=== PATIENT | female | born 1970 | race Caucasian/White ===

== ENCOUNTER 2022-11-12 14:06 | Outpatient (OUT) | payer BC, SELFPAY ==
--- NOTE | 2022-11-12 14:36 | PM.CN ---
Consult Note: HPI Data of Consult Patient: known to practice within the last 3 years Consult date: 11/12/22 Requesting Physician: RODRIGUEZ MCKEON NP Primary Care Provider: SHERIN ROTH Consult Narrative Narrative: Patient is here for f/u of first LCIH right sided nerve block. She had 80% relief of pain with increased fx for several hours after procedure . She would like to proceed with RFA. No new sensorimotor or bowel or bladder issues. No adverse medication SE. Medication regimen assists patient in ability to complete ADLs. No radiculopathy cc:: CC: RODRIGUEZ MCKEON NP Review of Systems ROS Status of ROS 10 or more systems reviewed and unremarkable except as noted in history and below Musculoskeletal Reports: back pain Exam Constitutional Documenting provider has reviewed patient's vital signs: yes Common normals: no apparent distress, average body habitus, oriented x3, no limitations, healthy appearing, alert and well nourished General appearance: cooperative, comfortable and well developed Orientation/consciousness: Yes awake, Yes oriented to person, Yes oriented to place and Yes oriented to time HENMI Common normals: normocephalic, nasal mucous membranes and turbinates normal and moist oral mucous membranes Respiratory Common normals: normal respiratory effort, no retractions and no use of accessory muscles Effort & inspection: able to speak in complete sentences and symmetric chest movement Back & Pelvis Lumbar spine/lower back: normal to inspection, ROM limited, pain with ROM, paraspinal muscle tenderness, paraspinal muscle spasm and straight leg raise negative bilaterally Extremity Common normals: normal to inspection, full ROM, normal capillary refill and no pedal edema Other: muscle strength 4/5 bilat with intact sensation. Positive beto gaenslens and thigh thrust right Assessment and Plan Assessment and Plan (1) Muscle spasm: (2) Sacroiliac joint pain: Plan RFA thermal right LCIH with sedation
== END 2022-11-12 14:07 ==
PROVIDERS: PCP Family Medicine; Visit Provider Nurse Practitioner
DX: M62.838 Other muscle spasm (principal); M53.3 Sacrococcygeal disorders, not elsewhere classified
CPT/HCPCS: G0463

== ENCOUNTER 2023-01-12 08:01 | Day surgery (SDC) | payer BC, SELFPAY ==
[2023-01-12 08:22] VITALS: BP 149/86; PULSE 93; RESP 18; TEMP 36.4; O2SAT 98
[2023-01-12] MEDS: 0.9 % SODIUM CHLORIDE 500 ML IV (08:41)
[2023-01-12] MEDS: LIDOCAINE HCL 2% 400 MG/20 ML MDV 8 ML INJ (09:42)
[2023-01-12] MEDS: BUPIVACAINE HCL 0.25% PF 25 MG/10 ML VIAL 4 ML INJ (09:42)
[2023-01-12] MEDS: METHYLPREDNISOLONE ACETATE 40 MG/ML VIAL INJ (09:43)
[2023-01-12 09:46] VITALS: BP 147/91; PULSE 79; RESP 17; TEMP 36.8; O2SAT 98
[2023-01-12 09:48] VITALS: BP 121/81; PULSE 80; RESP 16; TEMP 36.8; O2SAT 98
--- NOTE | 2023-01-19 08:35 | P.ON_ITS ---
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 Post lesioning injection of 2 mL each of 0.25% Marcaine and 2% lidocaine with Depo-Medrol 40mg. 0.5 to 1 mL injected at each site IV in place yes/no If Intravenous fluids: NS at KVO Anesthesia local 2% lidocaine for Anesthesia Other: MAC Timeout process compliant After informed consent obtained. Patient brought to the procedure room placed in the prone position skin overlying the area was prepped and draped in a sterile fashion using betadine. 25 gauge needle was used to create a skin wheal over each of the targeted areas utilizing 2% lidocaine. A rhizotomy needle with a 10 mm active tip was inserted over each of the anesthetized areas and directed towards four different areas in the distribution of the lateral cutaneous branc hes of the iliohypogastric nerve, accomplished under fluoroscopic guidance. After encountering the same we had positive sensory stimulation, negative motor stimulation was noted. lesions were then created. Post lesioning, steroid solution was injected needles removed. Patient was transferred to recovery room in stable condition to be discharged home after meeting criteria. Anesthesia: MAC Surgeon: Ashwin Peguero Condition: stable
== END 2023-01-12 10:12 | disposition home or self-care (01) ==
LOC: SURGOUT 08:01
PROVIDERS: PCP Family Medicine; Visit Provider Anesthesiology Pain Medicine
DX: G57.81 Other specified mononeuropathies of right lower limb (principal)
CPT/HCPCS: 64640; 77002; J1030

== ENCOUNTER 2023-02-04 14:59 | Outpatient (OUT) | payer BC, SELFPAY ==
--- NOTE | 2023-02-04 14:53 | PM.CN ---
Consult Note: HPI Data of Consult Patient: known to practice within the last 3 years Requesting Physician: Day Fleming NP Primary Care Provider: SHERIN ROTH Consult Narrative Reason for consult: f/u Narrative: Kim Hill a pleasant 52 year old female presents to office for evaluation of chronic low back and right SIJ pain. Recently underwent right Lateral cutaneous iliohypogastric nerve Radiofrequency ablation, since this procedure patient reports >85% pain relief and functional improvement. Today rating pain 6/10 in low back and left hip. Patient pleased with current medication regimen, no side effects. cc:: CC: Day Fleming NP Review of Systems ROS Status of ROS 10 or more systems reviewed and unremarkable except as noted in history and below Musculoskeletal Reports: back pain and joint pain PFSH PFSH Medical History Surgical History Meds Home Medications and Allergies Home Medications Medication Instructions Recorded Confirmed Type PRO AIR 11/12/22 History VITAMIN C DAILY 11/12/22 History baclofen 10 mg tablet 10 mg PO TID 11/12/22 01/12/23 History cholecalciferol (vit D3) 1,000 1 tab PO DAILY 11/12/22 01/12/23 History unit-vitamin K2 (MK4) 100 mcg tablet (K2 Plus D3) gabapentin 600 mg tablet 600 mg PO TID 11/12/22 01/12/23 History hydrocodone 5 mg-acetaminophen 325 1 tab PO TID 11/12/22 01/12/23 History mg tablet krill 1,000 mg-omega-3 170 mg-dha 1 cap PO DAILY 11/12/22 01/12/23 History 50 mg-epa 80 oq-eexeui-bezdm capsule (krill oil) lisinopril 10 mg tablet 10 mg PO DAILY 11/12/22 01/12/23 History meloxicam 15 mg tablet 15 mg PO DAILY 11/12/22 01/12/23 History omega 5-odb-xgd-fish oil 1,200 mg cap PO 11/12/22 History (144 mg-216 mg) capsule (Fish Oil) omeprazole 20 mg capsule,delayed 20 mg PO DAILY 11/12/22 01/12/23 History release umeclidinium 62.5 mcg-vilanterol 1 inh inhalation DAILY 11/12/22 01/12/23 History 25 mcg/actuation powdr for inhalation (Anoro Ellipta) Allergies Allergy/AdvReac Type Severity Reaction Status Date / Time amoxicillin [From Augmentin] Allergy Unknown Verified 01/12/23 08:26 clavulanic acid Allergy Unknown Verified 01/12/23 08:26 [From Augmentin] Penicillins Allergy Unknown Verified 01/12/23 08:26 Exam Constitutional Documenting provider has reviewed patient's vital signs: yes Common normals: no apparent distress, oriented x3, healthy appearing, alert and well nourished General appearance: cooperative HENMT Common normals: normocephalic, hearing grossly normal bilaterally and moist oral mucous membranes Head and scalp: normocephalic Eye Common normals: PERRL Pupil: PERRL Neck & C-Spine Common normals: full ROM General: normal visual inspection Chest Common normals: inspection of chest normal Respiratory Common normals: normal respiratory effort, no retractions and no use of accessory muscles Back & Pelvis Lumbar spine/lower back: ROM limited and pain with ROM Sacroiliac joints: SI joint(s) abnormal (left SIJ tender over PSIS, positive thigh thrust, FABERs, distraction ) SI joint details: pain elicited by compression of iliac crest maneuver Other: no radiculopathy Extremity Common normals: normal to inspection and full ROM Neuro Common normals: oriented x3, CN's II-XII intact bilaterally, moves all extremities, no focal motor deficits, no sensory deficits noted and deep tendon reflexes 2+ bilaterally Sensorium/orientation: alert Motor exam: strength 5/5 throughout and no movement abnormalities noted Psych Common normals: mental status grossly normal, thought process normal, cooperative, affect normal, speech normal and activity/motor behavior normal Speech: normal speech Thought process: normal thought process Results Additional Findings Additional findings: I have checked an [place]AR[place] report on this patient today and there are no aberrancies noted in the prescribing history.?? A drug screen was completed and reviewed within the last year, and if there has not been a drug screen completed we ordered one today to monitor higher risk, state monitored pain medication use. As part of providing excellent, safe, comprehensive care, the following was completed at our patient's visit: 1. A medication reconciliation and review to ensure accurate knowledge of current/active medications, including asking our patients to inform us about any sabw-uae-bqejsui medications or herbal remedies/nutritional supplements/alternative remedies. 2. A review to specifically ensure our patients have had annual screening for: elevated body mass index (BMI), tobacco use, screening for depression, and screening for unhealthy alcohol use. When screening is concerning, patients are provided with education and the specific recommendation to discuss the concerning health issue and treatment options with their primary care provider. Assessment and Plan Assessment and Plan (1) Neuritis: Assessment and Plan: right LCIH RFA >85 ongoing pain relief and functional improvement left LCIH neuritis as noted above (2) Sacroiliac joint pain: (3) Muscle spasm: (4) Lumbar spondylosis: (5) Chronic prescription opiate use: (6) Obesity: Assessment and Plan: The patient was counseled that proper dietary changes and consistent participation in a home exercise plan can lead to weight loss. Weight loss can help to improve functionality in patients with chronic pain.? Plan continue f/u with neurosurgeon continue HEP continue current medication regimen narcan previously prescribed and discussed f/u 3 months, consider left LCIH nerve block and RFA in the future
== END 2023-02-04 15:00 | disposition home or self-care (01) ==
LOC: PM 14:59
PROVIDERS: PCP Family Medicine; Visit Provider Nurse Practitioner
DX: M47.26 Other spondylosis with radiculopathy, lumbar region (principal); M62.838 Other muscle spasm; M53.3 Sacrococcygeal disorders, not elsewhere classified; E66.9 Obesity, unspecified
CPT/HCPCS: G0463

== ENCOUNTER 2023-03-16 09:18 | Day surgery (SDC) | payer BC, SELFPAY ==
[2023-03-16 10:02] VITALS: BP 140/82; PULSE 95; RESP 16; TEMP 36.7; O2SAT 97
[2023-03-16] MEDS: BUPIVACAINE HCL 0.25% PF 25 MG/10 ML VIAL 4 ML INJ (11:09)
[2023-03-16 11:10] VITALS: BP 126/58; BP 172/80; PULSE 92; RESP 16; O2SAT 97
--- NOTE | 2023-03-16 11:50 | W.PM.PROCNOT ---
Date of procedure: 03/16/23 Pre-op diagnosis: Left lateral cutaneous iliohypogastric neuritis Post-op diagnosis: same as pre-op Procedure: Left Lateral cutaneous branch Iliohypogastric nerve injection, diagnostic Performed under fluoroscopic guidance Immediate complications none Anesthesia: none Solution used for injection: In each syringe, 2 milliliters 0.25% Marcaine 2.5 mL is used for injection for each side Time out process compliant After informed consent obtained patient was brought to the procedure room placed in the prone position skin overlying the area was prepped and draped in a sterile fashion using betadine. 25 gauge spinal needle Insert over each of the target areas identified in fluoroscopy corresponding needles were advanced Under fluoroscopic guidance until the target/targets encountered , no indication of intravascular or Intraneuronal needle tip placement. Solution injected .needles removed post procedurally. patient transferred to recovery room in stable condition to be discharged home after meeting criteria Anesthesia: Local Surgeon: Ashwin Peguero Condition: stable
== END 2023-03-16 11:11 | disposition home or self-care (01) ==
LOC: SURGOUT 09:18
PROVIDERS: PCP Family Medicine; Visit Provider Anesthesiology Pain Medicine
DX: G57.82 Other specified mononeuropathies of left lower limb (principal)
CPT/HCPCS: 64425; 77002

== ENCOUNTER 2023-03-24 10:06 | Outpatient (OUT) | payer BC, SELFPAY ==
--- NOTE | 2023-03-24 10:37 | P.CN_ITS ---
Consult Note: HPI Data of Consult Patient: known to practice within the last 3 years Requesting Physician: Day Fleming NP Primary Care Provider: SHERIN ROTH Consult Narrative Reason for consult: f/u Narrative: Kim Hill a pleasant 52 year old female presents to office for evaluation of chronic low back and left buttock pain. Today rating pain 3/10. Patient pleased with current medication regimen, no side effects. Right LCIH RFA providing 85% pain relief ongoing. Patient would like to discuss proceeding with left LCIH RFA as she has benefitted from Left LCIH NB with 95% pain relief immediately after and for days after the procedure. cc:: CC: Day Fleming NP Review of Systems ROS Status of ROS 10 or more systems reviewed and unremarkable except as noted in history and below [facility] Medical History Surgical History Meds Home Medications and Allergies Home Medications Medication Instructions Recorded Confirmed Type PRO AIR 11/12/22 History VITAMIN C DAILY 11/12/22 History baclofen 10 mg tablet 10 mg PO TID 11/12/22 03/16/23 History cholecalciferol (vit D3) 1,000 1 tab PO DAILY 11/12/22 03/16/23 History unit-vitamin K2 (MK4) 100 mcg tablet (K2 Plus D3) gabapentin 600 mg tablet 600 mg PO TID 11/12/22 03/16/23 History hydrocodone 5 mg-acetaminophen 325 1 tab PO TID 11/12/22 03/16/23 History mg tablet krill 1,000 mg-omega-3 170 mg-dha 1 cap PO DAILY 11/12/22 03/16/23 History 50 mg-epa 80 cg-meegdy-vtvmc capsule (krill oil) lisinopril 10 mg tablet 10 mg PO DAILY 11/12/22 03/16/23 History meloxicam 15 mg tablet 15 mg PO DAILY 11/12/22 03/16/23 History omega 6-chf-sud-fish oil 1,200 mg cap PO 11/12/22 History (144 mg-216 mg) capsule (Fish Oil) omeprazole 20 mg capsule,delayed 20 mg PO DAILY 11/12/22 03/16/23 History release umeclidinium 62.5 mcg-vilanterol 1 inh inhalation DAILY 11/12/22 03/16/23 History 25 mcg/actuation powdr for inhalation (Anoro Ellipta) hydrocodone 7.5 mg-acetaminophen 1 tab PO TID PRN pain #80 tabs 03/01/23 03/16/23 Rx 325 mg tablet Allergies Allergy/AdvReac Type Severity Reaction Status Date / Time amoxicillin [From Augmentin] Allergy Unknown Verified 01/12/23 08:26 clavulanic acid Allergy Unknown Verified 01/12/23 08:26 [From Augmentin] Penicillins Allergy Unknown Verified 01/12/23 08:26 Exam Constitutional Documenting provider has reviewed patient's vital signs: yes Common normals: no apparent distress, oriented x3, healthy appearing, alert and well nourished General appearance: cooperative HENMT Common normals: normocephalic, hearing grossly normal bilaterally and moist oral mucous membranes Head and scalp: normocephalic Eye Common normals: PERRL Pupil: PERRL Neck & C-Spine Common normals: full ROM General: normal visual inspection Chest Common normals: inspection of chest normal Respiratory Common normals: normal respiratory effort, no retractions and no use of accessory muscles Back & Pelvis Lumbar spine/lower back: ROM limited and pain with ROM Sacroiliac joints: SI joint(s) abnormal (left SIJ tender over PSIS, positive thigh thrust, FABERs, distraction ) SI joint details: pain elicited by compress ion of iliac crest maneuver Other: no radiculopathy pain over left LCIH nerve Extremity Common normals: normal to inspection and full ROM Neuro Common normals: oriented x3, CN's II-XII intact bilaterally, moves all extremities, no focal motor deficits, no sensory deficits noted and deep tendon reflexes 2+ bilaterally Sensorium/orientation: alert Motor exam: strength 5/5 throughout and no movement abnormalities noted Psych Common normals: mental status grossly normal, thought process normal, cooperative, affect normal, speech normal and activity/motor behavior normal Speech: normal speech Thought process: normal thought process Results Additional Findings Additional findings: I have checked an [place]AR[place] report on this patient today and there are no aberrancies noted in the prescribing history.?? A drug screen was completed and reviewed within the last year, and if there has not been a drug screen completed we ordered one today to monitor higher risk, state monitored pain medication use. As part of providing excellent, safe, comprehensive care, the following was completed at our patient's visit: 1. A medication reconciliation and review to ensure accurate knowledge of current/active medications, including asking our patients to inform us about any nqfp-atr-drlfjdd medications or herbal remedies/nutritional supplements/alternative remedies. 2. A review to specifically ensure our patients have had annual screening for: elevated body mass index (BMI), tobacco use, screening for depression, and screening for unhealthy alcohol use. When screening is concerning, patients are provided with education and the specific recommendation to discuss the concerning health issue and treatment options with their primary care provider. Assessment and Plan Assessment and Plan (1) Neuritis: Assessment and Plan: right LCIH RFA >85 ongoing pain relief and functional improvement left LCIH neuritis as noted above We discussed the risks and benefits of the procedure with the patient The procedure will be completed with fluoroscopic guidance.? (2) Sacroiliac joint pain: (3) Muscle spasm: (4) Lumbar spondylosis: (5) Chronic prescription opiate use: (6) Obesity: Assessment and Plan: The patient was counseled that proper dietary changes and consistent participation in a home exercise plan can lead to weight loss. Weight loss can help to improve functionality in patients with chronic pain.? Plan proceed with left LCIH RFA with IV sedation cervical xray for neck pain with radiculopathy PT for neck pain with radiculopathy continue HEP continue current medication regimen narcan previously prescribed and discussed f/u 1 month after RFA
== END 2023-03-24 10:07 ==
LOC: PM 10:07
PROVIDERS: PCP Family Medicine; Visit Provider Nurse Practitioner
DX: M79.2 Neuralgia and neuritis, unspecified (principal); M62.838 Other muscle spasm; M47.816 Spondylosis without myelopathy or radiculopathy, lumbar region; E66.9 Obesity, unspecified; M53.3 Sacrococcygeal disorders, not elsewhere classified; Z79.891 Long term (current) use of opiate analgesic
CPT/HCPCS: G0463

== ENCOUNTER 2023-04-20 07:15 | Day surgery (SDC) | payer BC, SELFPAY ==
[2023-04-20 07:49] VITALS: BP 147/86; PULSE 88; RESP 16; TEMP 37.7; O2SAT 97
[2023-04-20] MEDS: 0.9 % SODIUM CHLORIDE 500 ML 50 ML IV (07:59)
[2023-04-20] MEDS: LIDOCAINE HCL 2% 400 MG/20 ML MDV 10 ML INJ (08:49)
[2023-04-20] MEDS: BUPIVACAINE HCL 0.25% PF 25 MG/10 ML VIAL 4 ML INJ (08:49)
[2023-04-20] MEDS: METHYLPREDNISOLONE ACETATE 40 MG/ML VIAL INJ (08:49)
[2023-04-20 09:05] VITALS: BP 128/88; PULSE 85; RESP 14; TEMP 37; O2SAT 94
[2023-04-20 09:10] VITALS: BP 118/81; PULSE 82; RESP 18; TEMP 37; O2SAT 96
--- NOTE | 2023-04-20 09:37 | W.PM.PROCNOT ---
Date of procedure: 04/20/23 Pre-op diagnosis: Left lateral cutaneous iliohypogastric neuritis Post-op diagnosis: same as pre-op Procedure: Left Lateral cutaneous iliohypogastric nerve Radiofrequency ablation PreOp diagnosis: pain secondary to include lateral cutaneous iliohypogastric neuritis Postop diagnosis same Under fluoroscopic guidance Rhizotomy was created using radio frequency ablation at 80?C for 90 seconds 1 to 2 lesions created at each site. Post lesioning injection of 2 mL each of 0.25% Marcaine and 2% lidocaine with Depo-Medrol 40mg. 0.5 to 1 mL injected at each site IV in place yes If Intravenous fluids: NS at KVO Anesthesia local 2% lidocaine for Anesthesia Other: MAC Timeout process compliant After informed consent obtained. Patient brought to the procedure room placed in the prone position skin overlying the area was prepped and draped in a sterile fashion using betadine. 25 gauge needle was used to create a skin wheal over each of the targeted areas utilizing 2% lidocaine. A rhizotomy needle with a 10 mm active tip was inserted over each of the anesthetized areas and directed towards four different areas in the distribution of the lateral cutaneous branches of the iliohypogastric nerve, accomplished under fluoroscopic guidance. After encountering the same we had positive sensory stimulation, negative motor stimulation was noted. lesions were then created. Post lesioning, steroid solution was injected needles removed. Patient was transferred to recovery room in stable condition to be discharged home after meeting criteria. Anesthesia: MAC Surgeon: Ashwin Peguero Condition: stable
== END 2023-04-20 09:33 | disposition home or self-care (01) ==
PROVIDERS: PCP Family Medicine; Visit Provider Anesthesiology Pain Medicine
DX: G57.82 Other specified mononeuropathies of left lower limb (principal)
CPT/HCPCS: 64640; 77002; J1030; J2704

== ENCOUNTER 2023-05-20 09:53 | Outpatient (OUT) | payer BC, SELFPAY ==
--- NOTE | 2023-05-20 10:07 | P.CN_ITS ---
Consult Note: HPI Data of Consult Patient: known to practice within the last 3 years Requesting Physician: Day Fleming NP Primary Care Provider: SHERIN ROTH Consult Narrative Reason for consult: f/u Narrative: Kim Hill a pleasant 52 year old female presents to office for evaluation of chronic low back and left buttock pain. Today rating pain 3/10. Patient pleased with current medication regimen, no side effects. Patient underwent left LCIH RFA with 95% ongoing relief. Patient has not been able to complete xrays of cervical spine or PT due to work schedule. She is finding benefit to current medication regimen, did not start baclofen yet. cc:: CC: Day Fleming NP Review of Systems ROS Status of ROS 10 or more systems reviewed and unremark able except as noted in history and below Musculoskeletal Reports: back pain, neck pain and joint pain PFSH PFSH Medical History Surgical History History of lymph node excision ?Z98.890 - Other specified postprocedural states (ICD-10) History of hysterectomy ?Z90.710 - Acquired absence of both cervix and uterus (ICD-10) History of lumbar fusion ?Z98.1 - Arthrodesis status (ICD-10) Meds Home Medications and Allergies Home Medications Medication Instructions Recorded Confirmed Type PRO AIR 11/12/22 History VITAMIN C DAILY 11/12/22 History baclofen 10 mg tablet 10 mg PO TID 11/12/22 04/20/23 History cholecalciferol (vit D3) 1,000 1 tab PO DAILY 11/12/22 04/20/23 History unit-vitamin K2 (MK4) 100 mcg tablet (K2 Plus D3) gabapentin 600 mg tablet 600 mg PO TID 11/12/22 04/20/23 History hydrocodone 5 mg-acetaminophen 325 1 tab PO TID 11/12/22 04/20/23 History mg tablet krill 1,000 mg-omega-3 170 mg-dha 1 cap PO DAILY 11/12/22 04/20/23 History 50 mg-epa 80 [id number] capsule (krill oil) lisinopril 10 mg tablet 10 mg PO DAILY 11/12/22 04/20/23 History meloxicam 15 mg tablet 15 mg PO DAILY 11/12/22 04/20/23 History omega 5-gqo-dns-fish oil 1,200 mg cap PO 11/12/22 History (144 mg-216 mg) capsule (Fish Oil) omeprazole 20 mg capsule,delayed 20 mg PO DAILY 11/12/22 04/20/23 History release umeclidinium 62.5 mcg-vilanterol 1 inh inhalation DAILY 11/12/22 04/20/23 History 25 mcg/actuation powdr for inhalation (Anoro Ellipta) hydrocodone 7.5 mg-acetaminophen 1 tab PO TID PRN pain #80 tabs 03/01/23 03/16/23 Rx 325 mg tablet hydrocodone 7.5 mg-acetaminophen 1 tab PO TID PRN pain #90 tabs 03/30/23 Rx 325 mg tablet hydrocodone 7.5 mg-acetaminophen 1 tab PO TID PRN pain #80 tabs 04/02/23 Rx 325 mg tablet hydrocodone 7.5 mg-acetaminophen 1 tab PO TID PRN pain #80 tabs 04/13/23 Rx 325 mg tablet Allergies Allergy/AdvReac Type Severity Reaction Status Date / Time amoxicillin [From Augmentin] Allergy Unknown Verified 01/12/23 08:26 clavulanic acid Allergy Unknown Verified 01/12/23 08:26 [From Augmentin] Penicillins Allergy Unknown Verified 01/12/23 08:26 Exam Constitutional Documenting provider has reviewed patient's vital signs: yes Common normals: no apparent distress, oriented x3, healthy appearing, alert and well nourished General appearance: cooperative [facility] Common normals: normocephalic, hearing grossly normal bilaterally and moist oral mucous membranes Head and scalp: normocephalic Eye Common normals: PERRL Pupil: PERRL Neck & C-Spine Common normals: full ROM General: normal visual inspection Cervical spine: pain with cervical ROM and paracervical muscle tenderness Other: intermittent radiculopathy to bilateral hands right greater than left Chest Common normals: inspection of chest normal Respiratory Common normals: normal respiratory effort, no retractions and no use of accessory muscles Back & Pelvis Lumbar spine/lower back: ROM limited and pain with ROM Sacroiliac joints: SI joints normal Other: no radiculopathy Extremity Common normals: normal to inspection and full ROM Neuro Common normals: oriented x3, CN's II-XII intact bilaterally, moves all extremities, no focal motor deficits, no sensory deficits noted and deep tendon reflexes 2+ bilaterally Sensorium/orientation: alert Motor exam: strength 5/5 throughout and no movement abnormalities noted Psych Common normals: mental status grossly normal, thought process normal, cooperative, affect normal, speech normal and activity/motor behavior normal Speech: normal speech Thought process: normal thought process Assessment and Plan Assessment and Plan (1) Cervical radiculopathy: (2) Cervical spondylosis: (3) Neuritis: (4) Chronic prescription opiate use: Assessment and Plan: I feel these medications are improving the patient's quality of life and allow them to tolerate activities of daily living as well as participate in recreational activity.? The patient does not report intolerable side effects. The patient is NOT opioid naive and non-pharmacologic and non-opioid treatment has failed to significantly relieve the patient's pain and improve functionality. The patient has a diagnosis that is related to a somatic or visceral pain etiology. ? ?? I reviewed with the patient the potential risks and side effects with the use of? opioid medications including but not limited to respiratory depression,? sedation, and even . I verified the patient has access to naloxone should? these effects occur. I advised the patient to avoid the use of any other? sedation substances including alcohol, THC, and benzodiazepines while? taking opioid medications due to the risk of compounding side effects and? detrimental outcomes. I reviewed the [employer], pain treatment agreement, urine? drug screen, and opioid start talking forms. The patient was advised to let? their family know they had Naloxone in case they would need to administer? the medication.? ?? A drug screen was completed within the last year, and no aberrancies were noted regarding their use of controlled substances. The patient understands they are subject to the terms and conditions of the pain contract that they have signed. ? ?? I have checked an [place] report on this patient today and there are no aberrancies noted in the prescribing history.? (5) Lumbar spondylosis: (6) Muscle spasm: Plan continue HEP continue current medication regimen, tolerating well without side effects. advised not to take muscle relaxants with opioids take mobic with food, do not take with other NSAIDs narcan previously prescribed and discussed f/u 3 months, sooner if she completes pt and xrays of cervical spine
--- OUTSIDE RECORDS SUMMARY | 2023-05-20 10:38 | XMS_ITS | CCD ---
Author Name Unknown Address [facility] [address] [place] [address] Organization [facility] Care Team Providers Care [employer] Manager Name Role Phone Roberto Roth Primary Care Provider [phone] Justice Cruz Attending Provider DO Roberto Roth Primary Care Provider [phone] MD Hood Rausch Attending Provider DO Roberto Roth Primary Care Provider [phone] CALVIN Yu Attending Provider [phone] MD Paresh Tian Attending Provider [phone] DO Roberto Roth Primary Care Provider [phone] CALVIN Yu Attending Provider [phone] MD Paresh Tian Attending Provider MD Gina Guerrero Attending Provider Gina Guerrero Unavailable SHE ., DR HOOD Hernandez Attending Unavailable SHE ., DR HOOD Hernandez Admitting Unavailable SINGH ., ADA Consulting Unavailable DR ROBERTO ROTH Primary Care Unavailable SHE ., DR HOOD Hernandez Attending Unavailable SHE ., DR HOOD Hernandez Admitting Unavailable SHE ., DR HOOD Hernandez Consulting Unavailable IRA, DR ROBERTO Bhakta Primary Care Unavailable SHE ., DR HOOD Hernandez Attending Unavailable SHE ., DR HOOD Hernandez Admitting Unavailable SINGH ., ADA Consulting Unavailable IRA, DR ROBERTO Bhakta Primary Care Unavailable SHE ., DR HOOD Hernandez Attending Unavailable SHE ., DR HOOD Hernandez Admitting Unavailable SINGH ., ADA Consulting Unavailable IRA, DR ROBERTO Bhakta Primary Care Unavailable LAKSHMIPATHY ., NARENDOMAR Attending Manjula vailable IRA, DR ROBERTO Bhakta Primary Care Unavailable LAKSHMIPATHY ., NARENDOMAR Admitting Manjula vailable RAUSCH ., DR HOOD Hernandez Attending Unavailable RAUSCH ., DR HOOD Hernandez Admitting Unavailable ROTH, DR ROBERTO Bhakta Primary Care Unavailable RAUSCH ., DR HOOD Hernandez Consulting Unavailable JUNGERMANNNATALEE Consulting Unavailable RAUSCH ., DR HOOD Hernandez Attending Unavailable RAUSCH ., DR HOOD Hernandez Admitting Unavailable ROTH, DR ROBERTO Bhakta Primary Care Unavailable SINGH ., ADA Consulting Unavailable RAUSCH ., DR HOOD Hernandez Consulting Unavailable RAUSCH ., DR HOOD Hernandez Attending Unavailable RAUSCH ., DR HOOD Hernandez Admitting Unavailable IRA, DR ROBERTO Bhakta Primary Care Unavailable JOELLE BRAXTON Consulting Unava ilable SINGH ., ADA Attending Unavailable SINGH ., ADA Admitting Unavailable IRA, DR ROBERTO Bhakta Primary Care Unavailable WEST, DR DASHA Gomez Consulting Unavailable SINGH ., ADA Consulting Unavailable RAUSCH ., DR HOOD Hernandez Attending Unavailable RAUSCH ., DR HOOD Hernandez Admitting Unavailable RAUSCH ., DR HOOD Hernandez Consulting Unavailable IRA, DR ROBERTO Bhakta Primary Care Unavailable RAUSCH ., DR HOOD Hernandez Attending Unavailable RAUSCH ., DR HOOD Hernandez Admitting Unavailable ROTH, DR ROBERTO Bhakta Primary Care Unavailable RAUSCH ., DR HOOD Hernandez Attending Unavailable RAUSCH ., DR HOOD Hernandez Admitting Unavailable SINGH ., ADA Consulting Unavailable IRA, DR ROBERTO Bhakta Primary Care Unavailable LAKSHMIPATHY ., NARENDRANATH Consulting Manjula vailable LAKSHMIPATHY ., NARENDOMAR Attending Manjula vailable DR ROBERTO ROTH Primary Care Unavailable LAKSHMIPATHY ., NARENDRANATH Admitting Manjula vailable LAKSHMIPATHY ., NARENDRANATH Admitting Manjula vailable LAKSHMIPATHY ., NARENDRANATH Consulting Manjula vailable LAKSHMIPATHY ., NARENDTONYATH Attending Manjula vailable IRA, DR ROBERTO Bhakta Primary Care Unavailable LAKSHMIPATHY ., NARENDRANATH Admitting Manjula vailable LAKSHMIPATHY ., NARENDTONYATH Consulting Manjula vailable LAKSHMIPATHY ., NARENDTONYATH Attending Manjula vailable IRA, DR ROBERTO Bhakta Primary Care Unavailable Aby Yu Attending Unavailable Roberto Roth Primary Care Unavailable Eislakshmi, Aby Admitting Unavailable Paresh Tian Admitting Unavailable Paresh Tian Attending Unavailable Roberto Roth Primary Care Unavailable Gina Guerrero Admitting Unavailable Gina Guerrero Attending Unavailable Roberto Roth Primary Care Unavailable Unavailable Unavailable Unavailable Allergies Allergy Classification Reported Allergen(s) Allergy Type Date of Onset Reaction(s) Facility (6 sources) Amoxicillin; Translations: [amoxicillin] Drug Allergy 0 [facility] (7 sources) Penicillins; Translations: [Penicillins] Propensity to adverse reactions 4 [facility] (6 sources) clavulanic acid; Translations: [clavulanic acid] Propensity to adverse reactions 0 [facility] (3 sources) Amoxicillin / Clavulanate; Translations: [Augmentin] Drug Allergy [address] [facility] (2 sources) Azithromycin Drug Allergy diarrhea [facility] [employer] Other (2 sources) Penicillin G Drug Allergy Unknown [facility] [employer] Other Medications Current Medications Medication Drug Class(es) Dates Sig (Normalized) Sig (Original) acetaminophen 500 mg oral tablet (4 sources) Start: 05-31-2020 take 500 mg by mouth every four hours Acetaminophen Active 500 MG PO Q4H 100 May 31, 2020 1:00am [id number] 200 actuat albuterol 0.09 mg/actuat metered dose inhaler (15 sources) beta2-Adrenergic Agonist Start: 06-26-2021 take 1 puff(s) by inhalation every three hours Albuterol Sulfate (Ventolin Hfa) 90 mcg/actuation Hfa Aerosol Inhaler Active 2 PUFF INHALATION Q3H 0 June 26, 2021 1:00am Start: 03-18-2019 take 1 puff(s) by in halation every six hours Albuterol Sulfate (Proair Hfa) 90 mcg/actuation Hfa Aerosol Inhaler Active 1 - 2 PUFF INHALATION Q6H March 17, 2019 11:33pm Start: 03-18-2019 End: 06-01-2020 take 1 puff(s) by inhalation every six hours Albuterol Sulfate (Ventolin Hfa) 90 mcg/actuation Hfa Aerosol Inhaler Active 1 PUFF INHALATION Q6H 2 May 31, 2020 1:00am take 2 puff(s) by mo uth every four to six hours ProAir RespiClick 108 (90 Base) MCG/ACT INHALE 2 PUFFS BY MOUTH EVERY 4 TO 6 HOURS Inhalation for 21 Active albuterol 0.833 mg/ml / ipratropium bromide 0.167 mg/ml inhalation solution (4 sources) Anticholinergic, beta2-Adrenergic Agonist Start: 05-31-2020 take 1 mL by inhalation four times daily Ipratropium-Albuterol Active 3 ML INHALATION Four times daily - Respiratory May 31, 2020 1:00am Anoro Ellipta 62.5-25 MCG/INH (2 sources) take 1 puff(s) by mouth once daily Anoro Ellipta 62.5-25 MCG/INH INHALE 1 PUFF BY MOUTH EVERY DAY Inhalation for 30 Active gabapentin 300 mg oral capsule (11 sources) Anti-epileptic Agent Start: 05-31-2020 take 600 mg by mouth three times daily Gabapentin Active 600 MG PO Three times daily 0 May 31, 2020 1:00am Start: 03-18-2019 End: 06-01-2020 take 600 mg by mouth three times daily Gabapentin Discontinued 600 MG PO Three times daily March 18, 2019 12:00am June 01, 2020 10:48am lisinopril 10 mg oral tablet (11 sources) Angiotensin Converting Enzyme Inhibitor Start: 05-14-2020 End: 06-01-2020 take 10 mg by mouth once daily Lisinopril Active 10 MG PO Daily May 31, 2020 1:00am meloxicam 15 mg oral tablet (2 sources) Nonsteroidal Anti-inflammatory Drug take 1 tablet by mouth every twenty-four hours Meloxicam 15 MG 1 tablet Orally Once a day Active omeprazole 20 mg delayed release oral capsule (9 sources) Proton Pump Inhibitor Start: 05-14-2020 End: 06-01-2020 take 20 mg by mouth once daily Omeprazole Active 20 MG PO DAILY@0630 May 31, 2020 1:00am oxyCODONE hydrochloride 5 mg oral tablet (16 sources) Opioid Agonist Start: 06-23-2021 take 7.5 mg by mouth every four hours Oxycodone Active 7.5 MG PO Q4H June 23, 2021 5:32pm Start: 05-31-2020 End: 06-23-2021 take 10 mg by mouth every four hours Oxycodone Discontinued 10 MG PO Every 4 hours 0 May 31, 2020 June 23, 2021 5:32pm Start: 05-23-2020 End: 06-23-2021 take 5 mg by mouth every four hours Oxycodone Discontinued 5 MG PO Q4H 40 7 May 31, 2020 June 23, 2021 5:32pm pantoprazole 40 mg delayed release oral tablet (2 sources) Proton Pump Inhibitor take 1 tablet by mouth once daily Pantoprazole Sodium 40 MG TAKE 1 TABLET BY MOUTH EVERY DAY Oral for 30 Active predniSONE 10 mg oral tablet (8 sources) Start: Prednisone Active 0 MG PO Daily June 26, 2021 1:00am Take in the morning with food. Start: 02-14-2021 End: 06-23-2021 take 60 mg by mouth once daily at mealtime Prednisone Discontinued 60 MG PO Daily February 14, 2021 12:00am June 23, 2021 5:32pm administer with food or milk Completed/Discontinued Medications Medication Drug Class(es) Dates Sig (Normalized) Sig (Original) acetaminophen 325 mg / HYDROcodone bitartrate 5 mg oral tablet (7 sources) Opioid Agonist Start: 03-18-2019 End: 05-23-2020 take 1 tablet by mouth three times daily Hydrocodone-Acetami nophen ([place]) 5-325 mg Tablet Discontinued 1 TAB PO Three times daily March 18, 2019 12:00am May 23, 2020 4:59pm [place] Active azithromycin 250 mg oral tablet (4 sources) Macrolide Antimicrobial Start: 02-14-2021 End: 06-23-2021 take 2-5 tablets by mouth once daily Azithromycin (Zithromax) 250 mg tablet Discontinued 0 PO .COMPLEX February 14, 2021 12:00am June 23, 2021 5:30pm take 500 mg today (day 1), then 250 mg for 4 days (days 2-5) benzonatate 100 mg oral capsule (4 sources) Non-narcotic Antitussive Start: 02-14-2021 End: 06-23-2021 take 1 capsule by mouth three times daily Benzonatate (Tessalon Perles) 100 mg capsule Discontinued 100 MG PO Three times daily February 14, 2021 12:00am June 23, 2021 5:30pm cyclobenzaprine hydrochloride 10 mg oral tablet (4 sources) Muscle Relaxant Start: 05-31-2020 End: 06-23-2021 take 10 mg by mouth every eight hours Cyclobenzaprine Discontinued 10 MG PO Every 8 hours 60 May 31, 2020 1:00am June 23, 2021 5:31pm diazePAM 5 mg oral tablet (4 sources) Benzodiazepine Start: 05-23-2020 End: 06-01-2020 take 5 mg by mouth four times daily Diazepam Discontinued 5 MG PO Four times daily 30 May 23, 2020 1:00am June 01, 2020 10:48am docusate sodium 100 mg oral capsule (4 sources) Start: 05-31-2020 End: 06-23-2021 take 1 capsule by mouth twice daily Docusate Sodium (Dok) 100 mg Capsule Discontinued 100 MG PO Twice daily 60 May 31, 2020 1:00am June 23, 2021 5:31pm ibuprofen 800 mg oral tablet (5 sources) Nonsteroidal Anti-inflammatory Drug Start: 03-18-2019 End: 05-14-2020 take 800 mg by mouth three times daily Ibuprofen Discontinued 800 MG PO Three times daily March 18, 2019 12:00am May 14, 2020 2:41pm lidocaine 0.04 mg/mg medicated patch (4 sources) Antiarrhythmic, Amide Local Anesthetic Start: 05-31-2020 End: 06-23-2021 apply 1 dose topically once daily Lidocaine (Aspercreme (Lidocaine Hcl)) 4 % Adhesive Patch,Medicated Discontinued 2 PATCH TOPICAL Daily May 31, 2020 1:00am June 23, 2021 5:31pm naproxen 250 mg oral tablet (4 sources) Nonsteroidal Anti-inflammatory Drug Start: 05-31-2020 End: 06-23-2021 take 250 mg by mouth once at mealtime Naproxen Discontinued 250 MG PO 3x/Day with meals May 31, 2020 1:00am June 23, 2021 5:31pm 24 hr nicotine 0.875 mg/hr transdermal system (8 sources) Cholinergic Nicotinic Agonist Start: 05-23-2020 End: 06-23-2021 apply 1 dose transdermal route once daily Nicotine Discontinued 1 PATCH TRANSDERML Daily 7 May 31, 2020 1:00am June 23, 2021 5:31pm Sennosides (Senna Lax) 8.6 mg Tablet (4 sources) Start: 05-31-2020 End: 06-23-2021 take 2 tablets by mouth once daily Sennosides (Senna Lax) 8.6 mg Tablet Discontinued 2 TAB PO DAILY@12 60 May 31, 2020 12:00am June 23, 2021 4:32pm Start: 05-31-2020 End: 06-23-2021 take 2 tablets by mouth once daily Sennosides (Senna Lax) 8.6 mg Tablet Discontinued 2 TAB PO DAILY@12 60 May 31, 2020 1:00am June 23, 2021 5:32pm 7 actuat umeclidinium 0.0625 mg/actuat / vilanterol 0.025 mg/actuat dry powder inhaler (5 sources) Anticholinergic, beta2-Adrenergic Agonist Start: 03-18-2019 End: 06-01-2020 Umeclidinium-Vilanterol (Anoro Ellipta) 62.5-25 mcg/actuation Blister With Device Discontinued 1 PUFF INHALATION Q48H March 18, 2019 12:00am June 01, 2020 10:48am Problems Active Problems Problem Classification Problem Date Documented Date Episodic/Chronic Acquired foot deformities (4 sources) Foot-drop; Translations: [Foot drop, right foot] 05-24-2020 Episodic Administrative/socia l admission (4 sources) Other reduced mobility; Translations: [Impaired mobility and activities of daily living] 05-24-2020 Episodic Anxiety disorders (4 sources) Panic attack; Translations: [Panic disorder [episodic paroxysmal anxiety]] 05-24-2020 Chronic Asthma (12 sources) Exacerbation of asthma; Translations: [Unspecified asthma with (acute) exacerbation] 06-24-2021 Chronic Chronic obstructive pulmonary disease and bronchiectasis (4 sources) Bronchitis; Translations: [Bronchitis, not specified as acute or chronic] 02-14-2021 Episodic Crushing injury or internal injury (5 sources) Crushing injury of left lesser toe(s), initial encounter; Translations: [Crush injury of toe of left foot] 03-18-2019 Episodic Deficiency and other anemia (4 sources) Anemia; Translations: [Anemia, unspecified] 05-24-2020 Episodic Diseases of white blood cells (4 sources) Leukocytosis; Translations: [Elevated white blood cell count, unspecified] 05-28-2020 Chronic Essential hypertension (4 sources) Hypertensive disorder; Translations: [Essential (primary) hypertension] 05-24-2020 Chronic Osteoarthritis (10 sources) Osteoarthritis; Translations: [Unspecified osteoarthritis, unspecified site] Onset: 05-14-2022 05-24-2020 Chronic Other acquired deformities (4 sources) Lumbar spondylolisthesis; Translations: [Spondylolisthesis, lumbar region] 05-23-2020 Episodic Other acquired deformities (2 sources) Spondylolisthesis; Translations: [Spondylolisthesis, lumbar region] Episodic Other aftercare (2 sources) High risk drug monitoring status; Translations: [correction (current) use of opiate analgesic] Episodic Other connective tissue disease (4 sources) Fibromyalgia; Translations: [Fibromyalgia] 05-24-2020 Episodic Other nervous system disorders (2 sources) Chronic pain; Translations: [Other chronic pain] Chronic Other nervous system disorders (2 sources) Meralgia paresthetica; Translations: [Meralgia paresthetica, right lower limb] Chronic Other nervous system disorders (6 sources) Other chronic pain; Translations: [OTHER CHRONIC PAIN] Onset: 09-05-2022 Chronic Other nervous system disorders (4 sources) Other specified mononeuropathies of right lower limb; Translations: [OTH SPEC MONONEUROPATH RT LOW LIMB] Onset: 10-13-2022 Chronic Other nervous system disorders (1 source) Other specified mononeuropathies; Translations: [OTHER SPECIFIED MONONEUROPATHIES] Onset: 10-10-2022 Chronic Other nervous system disorders (4 sources) Postoperative pain ; Translations: [Other acute postprocedural pain] 05-24-2020 Episodic Other non-traumatic joint disorders (1 source) Pain in right hip; Translations: [PAIN IN RIGHT HIP] Onset: 10-10-2022 Episodic Other screening for suspected conditions (not mental disorders or infectious disease) (4 sources) Protein level - finding; Translations: [Other specified abnormal findings of blood chemistry] 05-24-2020 Episodic Residual codes; unclassified (4 sources) Patient encounter status; Translations: [Encounter for prophylactic measures, unspecified] 05-24-2020 Episodic Residual codes; unclassified (4 sources) History of operative procedure on lumbar spinal structure; Translations: [Other specified postprocedural states] 05-24-2020 Episodic Spondylosis; intervertebral disc disorders; other back problems (19 sources) Inflammation of sacroiliac joint; Translations: [Sacroiliitis, not elsewhere classified] Onset: 01-07-2022 Chronic Spondylosis; intervertebral disc disorders; other back problems (11 sources) Lumbar radiculopathy; Translations: [Radiculopathy, lumbar region] Onset: 01-12-2022 05-24-2020 Episodic Unclassified (4 sources) Tobacco smoking consumption unknown; Translations: [Tobacco smoking status unknown] 05-24-2020 Unclassified (4 sources) LOW BACK PAIN, UNSPECIFIED; Translations: [LOW BACK PAIN, UNSPECIFIED] Onset: 06-25-2022 Unclassified (1 source) CONTACT W/AND (SUSP) EXPOS COVID-19; Translations: [CONTACT W/AND (SUSP) EXPOS COVID-19] Onset: 02-13-2022 Unclassified (1 source) Meralgia paresthetica, right lower limb; Translations: [Meralgia paresthetica, right lower limb] Onset: 08-17-2022 Unclassified (1 source) Chronic fatigue, unspecified; Translations: [Chronic fatigue, unspecified] Onset: 07-16-2022 Unclassified (1 source) Vertebrogenic low back pain; Translations: [Vertebrogenic low back pain] Onset: 07-03-2022 Viral infection (8 sources) COVID-19; Translations: [Pneumonia due to COVID-19 virus] 06-24-2021 Episodic Past or Other Problems Problem Classification Problem Date Documented Da te Episodic/Chronic Other connective tissue disease (1 source) Arthrodesis status; Translations: [ARTHRODESIS STATUS] Onset: 04-14-2022 Episodic Unclassified (1 source) Low back pain, unspecified M54.50 Unclassified (1 source) LOW BACK PAIN, UNSPECIFIED; Translations: [LOW BACK PAIN, UNSPECIFIED] Onset: 09-01-2022 Results Test Name Value Interpretation Reference Range Facility XR hip RT min 2V(w/wo pelvis )*on 08-18-2022 XR hip RT min 2V(w/wo pelvis)* [facility] [place] [address] [place], [place] [id number] XRay Report Signed Patient: Kim Hill MR#: [id number] : 1970 Acct:[id number] Age/Sex: 51 / F ADM Date: 08/17/22 Loc: XD Room: Type: [facility] Attending Dr: Gina Guerrero MD Copies to: Gina Guerrero MD Ordering Provider: Gina Guerrero MD Date of Service: 08/17/22 XR/XR hip RT min 2V(w/wo pelvis)*: G57.11 XR hip RT min 2V(w/wo pelvis)* 08/17/2022 4:28 PM SIGNS AND SYMPTOMS: Right low back and posterior/lateral hip pain PROTOCOL: Frontal and frog-leg views of the right hip COMPARISON: None FINDINGS: The joint space of the right hip is preserved. There is mild prominence of the right femoral head/neck junction. The right hemipelvis is intact. Degenerative changes are noted in the sacroiliac joints. Postoperative changes are noted in the lower lumbar spine. XR/XR hip RT min 2V(w/wo pelvis)* IMPRESSION: There is mild prominence of the right femoral head/neck junction suggesting a CAM deformity. No fracture or subluxation. Impression dictated by: Tate Alva M.D.08/18/2022 10:01 AM Dictation Location: [place] [address] Transcribed By: [facility] 08/18/22 1001 Dictated By: Tate Alva II, MD 08/18/22 0957 Signed By: 08/18/22 1001 Normal [facility] MRI Lumbar Spine w/o + w/on 07-30-2022 MRI Lumbar Spine w/o + w/ HISTORY: Chron ic back pain radiating to the right leg. History of prior nerve ablations imaging injections. History of prior surgery. TECHNIQUE: Routine lumbosacral spine MR protocol without and with intravenous gadolinium. Contrast: Given 20 mL of intravenous ProHance. COMPARISON: Lumbar MRI 01/24/2020. RESULT: Counting reference: Lumbosacral junction. There is transitional lumbosacral anatomy. For the purposes of this report, L4-L5 is considered the level nearest the iliac crest, with partial sacralization of the L5 vertebral body, with the last well-formed disc space considered L5-S1. The hardware is considered to extend from L3 through L5. The last rib-bearing vertebral body is considered T12. Alignment: Alignment is anatomic. Bone marrow signal/fracture: No evidence for acute fracture. No suspicious marrow replacing process. No suspicious enhancement after contrast within limits of artifact from the hardware. Posterior decompression with bilateral stiven and pedicle screw fixation extending from L3 through L5, with interbody material at the L3-L4 and L4-L5 disc spaces. The postsurgical changes are new from the prior MRI. Conus: The conus is within normal limits of signal intensity and morphology. Paraspinal soft tissues: Disruption of the posterior paraspinal fat planes at the surgical levels. Subcutaneous edema posteriorly. Mild dilation of the partially imaged right ureter compared to the contralateral left side, without significant hydronephrosis. Paraspinal muscle atrophy. Lower thoracic spine: Visualized lower thoracic canal and foramina are without significant narrowing. T12-L1: No significant canal or foraminal narrowing. L1-L2: No significant canal or foraminal narrowing. L2-L3: Tiny disc bulge and facet degenerative changes without significant canal or foraminal narrowing. L3-L4: Postsurgical changes without significant canal or foraminal narrowing. L4-L5: Postsurgical changes. Endplate osteophytes. Facet degenerative changes. No significant canal or foraminal narrowing. L5-S1: No significant canal or foraminal narrowing. Sacrum and iliac wings: The visualized sacrum and iliac wings are within normal limits. The presacral soft tissues are normal in appearance. IMPRESSION: Transitional lumbosacral anatomy as discussed. Please see counting reference. Postsurgical and degenerative changes within the lumbar spine as discussed. No suspicious enhancement after contrast. No high-grade canal or foraminal narrowing. Mild dilation of the partially imaged right ureter, nonspecific, not well assessed on this study. No significant hydronephrosis. As clinically indicated, could correlate with urinalysis and/or CT flank study if there is concern for obstructing calculus. Report reported and signed by Justice Lucas on 07/31/2022 0915 Normal [facility] ASTER Antinuclear Antibodieson 07-16-2022 Antinuclear Abs, IFA Positive Critically abnormal . [facility] Comment on above: Result Comment: Nega tive <1:80 Borderline 1:80 Positive >1:80 Performed By: #### A NA, C4, C3, CH50 #### [facility] , #### CRP, CREAT, ADDONUAPLUS, CUU, ESR, CBC #### [facility] [address] Note 1 Normal . [facility] Comment on above: Result Comment: For more information about Hep-2 cell patterns use ANApatterns.org, the official website for the International Consensus on Antinuclear Antibody (ASTER) Patterns (ICAP). - A positive ASTER result may occur in healthy individuals (low titer) or be associated with a variety of diseases. See interpretation chart which is not all inclusive: Pattern Antigen Detected Suggested Disease Association Homogeneous DNA(ds,ss), SLE - High titers Nucleosomes, Histones Drug-induced SLE Speckled Sm, [employer]ANT, SCL-70, SLE,MCTD,PSS (diffuse form), SS-A/SS-B Sjogrens Nucleolar SCL-70, PM-1/SCL High titers Scleroderma, PM/DM Centromere Centromere PSS (limited form) w/Crest syndrome variable Nuclear Dot [id number] Primary Biliary Cirrhosis Nuclear GP210, Primary Biliary Cirrhosis Membrane kailyn A,B,C Performed at: [facility] [address] [id number] [employer] Supervisor: Collin Rodriguez PhD, Phone: [phone] Performed By: #### A NA, C4, C3, CH50 #### [facility] , #### CRP, CREAT, ADDONUAPLUS, CUU, ESR, CBC #### [facility] [address] [place] [address] Spindle Apparatus Pattern 1:160 High . [facility] Comment on above: Result Comment: ICAP nomenclature: [id number] Performed By: #### A NA, C4, C3, CH50 #### [facility] , #### CRP, CREAT, ADDONUAPLUS, CUU, ESR, CBC #### [facility] [address] [place] [address] Automated erythrocytes count in urine sediment (number/area)Ordered By: Paresh Tian on 07-16-2022 RBC Auto (Urine sed) [#/Area] 1-2 [HPF] 0-4 [facility] Automated leukocytes count i n urine sediment (number/area)Ordered By: Paresh Tian on 07-16-2022 WBC Auto (Urine sed) [#/Area] 20-49 [HPF] 0-4 [facility] Basophils Auto (Bld) [#/Vol] Ordered By: Paresh Tian on 07-16-2022 Basophils (Bld) [#/Vol] 0.0 10*3/uL 0.0-0.2 [facility] Basophils/100 WBC Auto (Bld) Ordered By: Paresh Tian on 07-16-2022 Basophils/100 WBC (Bld) 0.4 % . [facility] Bilirubin Test strip Ql (U)O rdered By: Paresh Tian on 07-16-2022 Bilirubin Ql (U) Negative Negative [facility] C reactive protein [Mass/vol ume] in Serum or PlasmaOrdered By: Paresh Tian on 07-16-2022 CRP [Mass/Vol] 0.8 mg/dL 0.0-1.0 [facility] C-Reactive Proteinon 023 C-Reactive Protein 0.8 mg/dL Normal 0.0-1.0 [facility] Comment on above: Result Comment: PERF ORMED BY: [place] [address] PATHOLOGIST [employer]PING [employer] SALES REPRESENTATIVE PENG POLO M.D. Performed By: #### A NA, C4, C3, CH50 #### [facility] , #### CRP, CREAT, ADDONUAPLUS, CUU, ESR, CBC #### [facility] [address] Color Auto (U)Ordered By: Afia Tian on 07-16-2022 Color (U) Yellow Yellow [facility] Complement C3on 07-16-2022 Complement C3 197 mg/dL High 82-167 [facility] Comment on above: Result Comment: Perf ormed at: - [facility] [address] [id number] [employer] Supervisor: Collin Rodriguez PhD, Phone: [phone] Performed By: #### A NA, C4, C3, CH50 #### [facility] , #### CRP, CREAT, ADDONUAPLUS, CUU, ESR, CBC #### [address] Complement C4on 07-16-2022 Complement C4 42 mg/dL High 12-38 [facility] Comment on above: Result Comment: PERF ORMED BY: [place] [address] PATHOLOGIST [employer] SALES REPRESENTATIVE PENG POLO M.D. Performed By: #### A NA, C4, C3, CH50 #### [facility] , #### CRP, CREAT, ADDONUAPLUS, CUU, ESR, CBC #### [address] Complement Total (CH50)on Complement Total (CH50) >60 Normal >41 F [facility] Comment on above: Result Comment: Age Male Female 1 - 30 days Not Estab. Not Estab. 31 days - 6 months >32 >20 7 months - 17 years >39 >39 >17 years >41 >41 NOTE: The adult ( >17 years ) reference interval range is used to flag abnormals on this report. If the patient is 17 years old or younger, use the table above to determine out of range values. Performed at: - [facility] [id number] [employer] Supervisor: Collin Rodriguez PhD, Phone: [phone] PERFORMED BY: [place] [address] PATHOLOGIST [employer]PING [employer] SALES REPRESENTATIVE PENG POLO M.D. Performed By: #### A NA, C4, C3, CH50 #### [facility] , #### CRP, CREAT, ADDONUAPLUS, CUU, ESR, CBC #### [address] Complete Blood Count Auto Di ffon 07-16-2022 Basophils (Bld) [#/Vol] 0.0 10*3/uL Normal 0.0-0.2 [facility] Comment on above: Performed By: #### A NA, C4, C3, CH50 #### [facility] , #### CRP, CREAT, ADDONUAPLUS, CUU, ESR, CBC #### [place] [address] [place] Basophils/100 WBC (Bld) 0.4 % Normal . [facility] Comment on above: Performed By: #### A NA, C4, C3, CH50 #### [facility] , #### CRP, CREAT, ADDONUAPLUS, CUU, ESR, CBC #### [address] Eosinophils (Bld) [#/Vol] 0.1 10*3/uL Normal 0.0-0.45 [facility] Comment on above: Performed By: #### A NA, C4, C3, CH50 #### [facility] , #### CRP, CREAT, ADDONUAPLUS, CUU, ESR, CBC #### [address] Eosinophils/100 WBC (Bld) 1.1 % Normal . [facility] Comment on above: Performed By: #### A NA, C4, C3, CH50 #### [facility] , #### CRP, CREAT, ADDONUAPLUS, CUU, ESR, CBC #### [address] Erythrocyte distribution width (RBC) [Ratio] 13.0 % Normal 11.9-15.3 [facility] Comment on above: Performed By: #### A NA, C4, C3, CH50 #### [facility] , #### CRP, CREAT, ADDONUAPLUS, CUU, ESR, CBC #### [address] [address] [place] Hematocrit (Bld) [Volume fraction] 45.3 % Normal 34.0-46.4 [facility] Comment on above: Performed By: #### A NA, C4, C3, CH50 #### [facility] , #### CRP, CREAT, ADDONUAPLUS, CUU, ESR, CBC #### [address] Hemoglobin (Bld) [Mass/Vol] 15.2 g/dL Normal 11.8-15.4 [facility] Comment on above: Performed By: #### A NA, C4, C3, CH50 #### [facility] , #### CRP, CREAT, ADDONUAPLUS, CUU, ESR, CBC #### [address] Lymphocytes (Bld) [#/Vol] 3.7 10*3/uL Normal 1.00-4.8 [facility] Comment on above: Performed By: #### A NA, C4, C3, CH50 #### [facility] , #### CRP, CREAT, ADDONUAPLUS, CUU, ESR, CBC #### [address] Lymphocytes/100 WBC (Bld) 35.0 % Normal . [facility] Comment on above: Performed By: #### A NA, C4, C3, CH50 #### [facility] , #### CRP, CREAT, ADDONUAPLUS, CUU, ESR, CBC #### [address] MCH (RBC) [Entitic mass] 33.8 pg Normal 24.7-34.3 [facility] Comment on above: Performed By: #### A NA, C4, C3, CH50 #### [facility] , #### CRP, CREAT, ADDONUAPLUS, CUU, ESR, CBC #### [address] MCV (RBC) [Entitic vol] 100.6 fL High 80-100 F [facility] Comment on above: Performed By: #### A NA, C4, C3, CH50 #### [facility] , #### CRP, CREAT, ADDONUAPLUS, CUU, ESR, CBC #### [address] Mean Corpuscular HGB Conc 33.6 g/dL Normal 32.0-35.0 [facility] Comment on above: Performed By: #### A NA, C4, C3, CH50 #### [facility] , #### CRP, CREAT, ADDONUAPLUS, CUU, ESR, CBC #### [address] Monocytes (Bld) [#/Vol] 0.7 10*3/uL Normal 0.0-0.8 [facility] Comment on above: Performed By: #### A NA, C4, C3, CH50 #### [facility] , #### CRP, CREAT, ADDONUAPLUS, CUU, ESR, CBC #### [address] Monocytes/100 WBC (Bld) 6.8 % Normal . [facility] Comment on above: Performed By: #### A NA, C4, C3, CH50 #### [facility] , #### CRP, CREAT, ADDONUAPLUS, CUU, ESR, CBC #### [address] Neutrophils (Bld) [#/Vol] 5.9 10*3/uL Normal 1.8-7.7 [facility] Comment on above: Performed By: #### A NA, C4, C3, CH50 #### [facility] , #### CRP, CREAT, ADDONUAPLUS, CUU, ESR, CBC #### [address] Neutrophils/100 WBC (Bld) 56.7 % Normal . [facility] Comment on above: Performed By: #### A NA, C4, C3, CH50 #### [facility] , #### CRP, CREAT, ADDONUAPLUS, CUU, ESR, CBC #### [address] NRBC% 0.1 /100{WBC} Normal 0-0.5 [facility] Comment on above: Performed By: #### A NA, C4, C3, CH50 #### [facility] , #### CRP, CREAT, ADDONUAPLUS, CUU, ESR, CBC #### [address] Platelet mean volume (Bld) [Entitic vol] 8.4 fL Normal 6.3-10.7 [facility] Comment on above: Performed By: #### A NA, C4, C3, CH50 #### [facility] , #### CRP, CREAT, ADDONUAPLUS, CUU, ESR, CBC #### [address] Platelets (Bld) [#/Vol] 242 10*3/uL Normal 150-450 [facility] Comment on above: Performed By: #### A NA, C4, C3, CH50 #### [facility] , #### CRP, CREAT, ADDONUAPLUS, CUU, ESR, CBC #### [address] RBC (Bld) [#/Vol] 4.50 10*6/uL Normal 3.60-5.00 [facility] Comment on above: Performed By: #### A NA, C4, C3, CH50 #### [facility] , #### CRP, CREAT, ADDONUAPLUS, CUU, ESR, CBC #### [address] WBC (Bld) [#/Vol] 10.4 10*3/uL Normal 3.8-11.6 [facility] Comment on above: Performed By: #### A NA, C4, C3, CH50 #### [facility] , #### CRP, CREAT, ADDONUAPLUS, CUU, ESR, CBC #### [address] Creatinineon 07-16-2022 Creatinine [Mass/Vol] 0.74 mg/dL Normal 0.44-1.03 [facility] Comment on above: Performed By: #### A NA, C4, C3, CH50 #### [facility] , #### CRP, CREAT, ADDONUAPLUS, CUU, ESR, CBC #### [address] Estimated GFR ( Sharon > 60 Normal [facility] Comment on above: Result Comment: GFR estimated reference range: According to KDOQI guidelines, <60 ml/min/1.73m2 is sufficient to diagnose a patient with chronic kidney disease. Performed By: #### A NA, C4, C3, CH50 #### [facility] , #### CRP, CREAT, ADDONUAPLUS, CUU, ESR, CBC #### [address] Estimated GFR (Non- Am > 60 Normal [facility] Comment on above: Performed By: #### A NA, C4, C3, CH50 #### [facility] , #### CRP, CREAT, ADDONUAPLUS, CUU, ESR, CBC #### [address] Creatinine and Glomerular fi ltration rate.predicted panel (S/P/Bld)Ordered By: Paresh Tian on 07-16-2022 Creatinine [Mass/Vol] 0.74 mg/dL 0.44-1.03 [facility] Dipstick and Microscopicon 0 07-16-2022 Appearance (U) Clear Normal Clear [facility] Comment on above: Order Comment: Name Collection Type:: Clean-Voided Midstream Performed By: #### A NA, C4, C3, CH50 #### [facility] , #### CRP, CREAT, ADDONUAPLUS, CUU, ESR, CBC #### [facility] [address] [place] [address] Bacteria,Urine 4+ High None Seen [facility] Comment on above: Order Comment: Name Collection Type:: Clean-Voided Midstream Performed By: #### A NA, C4, C3, CH50 #### [facility] , #### CRP, CREAT, ADDONUAPLUS, CUU, ESR, CBC #### [facility] [address] [place] [address] Bilirubin,Urine Negative Normal Negative [facility] Comment on above: Order Comment: Name Collection Type:: Clean-Voided Midstream Performed By: #### A NA, C4, C3, CH50 #### [facility] , #### CRP, CREAT, ADDONUAPLUS, CUU, ESR, CBC #### [facility] [address] [place] [address] [place] Color (U) Yellow Normal Yellow [facility] Comment on above: Order Comment: Name Collection Type:: Clean-Voided Midstream Performed By: #### A NA, C4, C3, CH50 #### [facility] , #### CRP, CREAT, ADDONUAPLUS, CUU, ESR, CBC #### [facility] [address] [place] [address] [place] Glucose Ql (U) Normal Normal Normal [facility] Comment on above: Order Comment: Name Collection Type:: Clean-Voided Midstream Performed By: #### A NA, C4, C3, CH50 #### [facility] , #### CRP, CREAT, ADDONUAPLUS, CUU, ESR, CBC #### [address] Hyaline Casts,Urine 0-8 Normal 0-8 [facility] Comment on above: Order Comment: Name Collection Type:: Clean-Voided Midstream Result Comment: PERF ORMED BY: [place] [address] PATHOLOGIST [employer] SALES REPRESENTATIVE PENG POLO M.D. Performed By: #### A NA, C4, C3, CH50 #### [facility] , #### CRP, CREAT, ADDONUAPLUS, CUU, ESR, CBC #### [address] Ketones Ql (U) Negative Normal Negative [facility] Comment on above: Order Comment: Name Collection Type:: Clean-Voided Midstream Performed By: #### A NA, C4, C3, CH50 #### [facility] , #### CRP, CREAT, ADDONUAPLUS, CUU, ESR, CBC #### [address] Leukocyte esterase Test strip Ql (U) 3+ High Negative [facility] Comment on above: Order Comment: Name Collection Type:: Clean-Voided Midstream Performed By: #### A NA, C4, C3, CH50 #### [facility] , #### CRP, CREAT, ADDONUAPLUS, CUU, ESR, CBC #### [address] Nitrite,Urine Negative Normal Negative [facility] Comment on above: Order Comment: Name Collection Type:: Clean-Voided Midstream Performed By: #### A NA, C4, C3, CH50 #### [facility] , #### CRP, CREAT, ADDONUAPLUS, CUU, ESR, CBC #### [address] Occult Blood,Urine Negative Normal Negative [facility] Comment on above: Order Comment: Name Collection Type:: Clean-Voided Midstream Performed By: #### A NA, C4, C3, CH50 #### [facility] , #### CRP, CREAT, ADDONUAPLUS, CUU, ESR, CBC #### [address] pH (U) 6.5 [pH] Normal 5.0-9.0 [facility] Comment on above: Order Comment: Name Collection Type:: Clean-Voided Midstream Performed By: #### A NA, C4, C3, CH50 #### [facility] , #### CRP, CREAT, ADDONUAPLUS, CUU, ESR, CBC #### [address] Protein,Urine Negative Normal Negative [facility] Comment on above: Order Comment: Name Collection Type:: Clean-Voided Midstream Performed By: #### A NA, C4, C3, CH50 #### [facility] , #### CRP, CREAT, ADDONUAPLUS, CUU, ESR, CBC #### [address] RBC,Urine 1-2 Normal 0-4 [facility] Comment on above: Order Comment: Name Collection Type:: Clean-Voided Midstream Performed By: #### A NA, C4, C3, CH50 #### [facility] , #### CRP, CREAT, ADDONUAPLUS, CUU, ESR, CBC #### [address] Specificy [place],Urine 1.018 Normal 1.00 1-1.03 0 [facility] Comment on above: Order Comment: Name Collection Type:: Clean-Voided Midstream Performed By: #### A NA, C4, C3, CH50 #### [facility] , #### CRP, CREAT, ADDONUAPLUS, CUU, ESR, CBC #### [facility] [address] [place] [address] Squamous Epithelial Cell,Urine 0-1 Normal 0-2 [facility] Comment on above: Order Comment: Name Collection Type:: Clean-Voided Midstream Performed By: #### A NA, C4, C3, CH50 #### [facility] , #### CRP, CREAT, ADDONUAPLUS, CUU, ESR, CBC #### [address] Urobilinogen,Urine Normal Normal Normal [facility] Comment on above: Order Comment: Name Collection Type:: Clean-Voided Midstream Performed By: #### A NA, C4, C3, CH50 #### [facility] , #### CRP, CREAT, ADDONUAPLUS, CUU, ESR, CBC #### [facility] [address] [place] [address] WBC,Urine 20-49 High 0-4 [facility] Comment on above: Order Comment: Name Collection Type:: Clean-Voided Midstream Performed By: #### A NA, C4, C3, CH50 #### [facility] , #### CRP, CREAT, ADDONUAPLUS, CUU, ESR, CBC #### [address] Eosinophils Auto (Bld) [#/Vo l]Ordered By: Paresh Tian on 07-16-2022 Eosinophils (Bld) [#/Vol] 0.1 10*3/uL 0.0-0.45 [facility] Eosinophils/100 WBC Auto (Bl d)Ordered By: Paresh Tian on 07-16-2022 Eosinophils/100 WBC (Bld) 1.1 % . [facility] Erythrocyte Sedimentation Ra declan 07-16-2022 ESR (Bld) [Velocity] 45 mm/h High 0-29 [facility] Comment on above: Result Comment: PERF ORMED BY: [place] [address] PATHOLOGIST [employer] SALES REPRESENTATIVE PENG POLO M.D. Performed By: #### A NA, C4, C3, CH50 #### [facility] , #### CRP, CREAT, ADDONUAPLUS, CUU, ESR, CBC #### [facility] [address] Erythrocyte distribution wid th Auto (RBC) [Ratio]Ordered By: Paresh Tian on 07-16-2022 Erythrocyte distribution width (RBC) [Ratio] 13.0 % 11.9-15.3 [facility] Erythrocyte sedimentation ra te by Photometric methodOrdered By: Paresh Tian on 07-16-2022 ESR Photometric method (Bld) [Velocity] 45 mm/hr 0-29 [facility] Estimated glomerular filtrat ion rate (GFR) non- AmericanOrdered By: Paresh Tian on 07-16-2022 GFR/1.73 sq M.predicted among non-blacks MDRD (S/P/Bld) [Vol rate/Area] > 60 mL/Min [facility] Hematocrit Auto (Bld) [Volum e fraction]Ordered By: Paresh Tian on 07-16-2022 Hematocrit (Bld) [Volume fraction] 45.3 % 34.0-46.4 [facility] Hemoglobin [Mass/volume] in BloodOrdered By: Paresh Tian on 07-16-2022 Hemoglobin (Bld) [Mass/Vol] 15.2 g/dL 11.8-15.4 [facility] Ketones Auto test strip (U) [Mass/Vol]Ordered By: Paresh Tian on 07-16-2022 Ketones (U) [Mass/Vol] Negative Negative [facility] Laboratory - UrinalysisOrder ed By: Paresh Tian on 07-16-2022 Hyaline casts LM Ql (Urine sed) 0-8 [LPF] 0-8 [facility] Leukocytes [#/volume] correc scot for nucleated erythrocytes in Blood by Automated counOrdered By: Paresh Tian on 07-16-2022 WBC corrected for nucl RBC Auto (Bld) [#/Vol] 10.4 10*3/uL 3.8-11.6 [facility] Lymphocytes Auto (Bld) [#/Vo l]Ordered By: Paresh Tian on 07-16-2022 Lymphocytes (Bld) [#/Vol] 3.7 10*3/uL 1.00-4.8 [facility] Lymphocytes/100 WBC Auto (Bl d)Ordered By: Paresh Tian on 07-16-2022 Lymphocytes/100 WBC (Bld) 35.0 % . [facility] MCH Auto (RBC) [Entitic mass ]Ordered By: Paresh Tian on 07-16-2022 MCH (RBC) [Entitic mass] 33.8 pg 24.7-34.3 [facility] MCHC Auto (RBC) [Mass/Vol]Or dered By: Paresh Tian on 07-16-2022 MCHC (RBC) [Mass/Vol] 33.6 g/dL 32.0-35.0 Fir [facility] MCV Auto (RBC) [Entitic vol] Ordered By: Paresh Tian on 07-16-2022 MCV (RBC) [Entitic vol] 100.6 fL 80-100 F [facility] Mitotic spindle apparatus Ab [Titer] in Serum or Plasma by ImmunofluorescenceOrdered By: Paresh Tian on 07-16-2022 Mitotic spindle apparatus Ab IF [Titer] 1:160 . [facility] Comment on above: ICAP nomenclature: A C-25,26 Monocytes Auto (Bld) [#/Vol] Ordered By: Paresh Tian on 07-16-2022 Monocytes (Bld) [#/Vol] 0.7 10*3/uL 0.0-0.8 [facility] Monocytes/100 WBC Auto (Bld) Ordered By: Paresh Tian on 07-16-2022 Monocytes/100 WBC (Bld) 6.8 % . [facility] Neutrophils Auto (Bld) [#/Vo l]Ordered By: Paresh Tian on 07-16-2022 Neutrophils (Bld) [#/Vol] 5.9 10*3/uL 1.8-7.7 [facility] Neutrophils/100 WBC Auto (Bl d)Ordered By: Paresh Tian on 02-16-2023 Neutrophils/100 WBC (Bld) 56.7 % . [facility] Nitrite Test strip Ql (U)Ord ered By: Paresh Tian on 07-16-2022 Nitrite Ql (U) Negative Negative [facility] No Panel InformationOrdered By: Paresh Tian on 07-16-2022 Anti-Nuclear Antibody Comment 2 See comment . [facility] Comment on above: For more information about Hep-2 cell patterns useLarge Business District NetworkingerComcast.[employer], the official website for the InternationalConSintact Medical Systems, LLCsus on Antinuclear Antibody (ASTER) Patterns (ICAP). --------A positive ASTER result may occur in healthy individuals (lowtiter) or be associated with a variety of diseases. Seeinterpretation chart which is not all inclusive:Pattern Antigen Detected Suggested Disease Association Homogeneous DNA(ds,ss), SLE - High titers Nucleosomes, Histones Drug-induced SLE Speckled Sm, LIFE SKILLS CONSULTANT, SCL-70, SLE,MCTD,PSS (diffuse form), SS-A/SS-B Sjogrens Nucleolar SCL-70, PM-1/SCL High titers Scleroderma, PM/DM Centromere Centromere PSS (limited form) w/Crest syndrome variable Nuclear Dot Sp100,[id number] Primary Biliary Cirrhosis Nuclear GP210, Primary Biliary CirrhosisMembrane kailyn A,B,C Performed at: [facility] [place], [place] [id number] Director: Collin Rodriguez PhD, Phone: [phone] Estimated GFR () > 60 mL/Min [facility] Comment on above: GFR estimated refere nce range: According to KDOQI guidelines, <60 ml/min/1.73m2 is sufficient to diagnose a patient with chronic kidney disease. Pharmacy Creatinine Clearance (Chem N/A [facility] Total Complement (CH50) >60 U/mL >41 F [facility] Comment on above: Age Male Female 1 - 30 days Not Estab. Not Estab. 31 days - 6 months >32 >20 7 months - 17 years >39 >39 >17 years >41 >41 NOTE: The adult ( >17 years ) reference interval range is used to flag abnormals on this report. If the patient is 17 years old or younger, use the table above to determine out of range values.Performed at: [facility] [place], [place] [id number] Director: Collin Rodriguez PhD, Phone: [phone] Nucleated erythrocytes [Pres ence] in Blood by Automated countOrdered By: Paresh Tian on 07-16-2022 Nucleated RBC Auto Ql (Bld) 0.1 /100{WBC} 0-0.5 [facility] Platelet mean volume Auto (B ld) [Entitic vol]Ordered By: Paresh Tian on 07-16-2022 Platelet mean volume (Bld) [Entitic vol] 8.4 fL 6.3-10.7 [facility] Platelets Auto (Bld) [#/Vol] Ordered By: Paresh Tian on 07-16-2022 Platelets (Bld) [#/Vol] 242 10*3/uL 150-450 [facility] Protein Auto test strip (U) [Mass/Vol]Ordered By: Paresh Tian on 07-16-2022 Protein (U) [Mass/Vol] Negative Negative [facility] RBC Auto (Bld) [#/Vol]Ordere d By: Paresh Tian on 07-16-2022 RBC (Bld) [#/Vol] 4.50 10*6/uL 3.60-5.00 [facility] Serum homogeneous pattern an tinuclear antibody (ASTER) titerOrdered By: Paresh Tian on 07-16-2022 Homogenous nuclear Ab pattern (S) [Titer] N/A [facility] Serum nuclear antibody titer Ordered By: Paresh Tian on 07-16-2022 Nuclear Ab (S) [Titer] Positive . [facility] Comment on above: Negative <1:80 Borde rline 1:80 Positive >1:80 Serum or plasma complement C 3 measurement (mass/volume)Ordered By: Paresh Tian on 07-16-2022 Complement C3 [Mass/Vol] 197 mg/dL 82-167 [facility] Comment on above: Performed at: [place] [id number] Director: Collin Rodriguez PhD, Phone: [phone] Serum or plasma complement C 4 measurement (mass/volume)Ordered By: Paresh Tian on 07-16-2022 Complement C4 [Mass/Vol] 42 mg/dL 12-38 [facility] Specific gravity Auto test s trip (U) [Rel density]Ordered By: Paresh Tian on 07-16-2022 Specific gravity (U) [Rel density] 1.018 1.001-1.03 0 [facility] Squamous epithelial cells de tection in urine sediment by light microscopyOrdered By: Paresh Tian on 07-16-2022 Epithelial cells.squamous LM Ql (Urine sed) 0-1 [HPF] 0-2 [facility] Urine Cultureon 07-16-2022 Bacteria identified Cx Nom (U) ORGANISM: Escherichia coli (O:ESCCOL) [place] Count >100,000 Aerobic TARA Charge ([id number]) -- SUSCEPTIBILITY - ORGANISM: O:ESCCOL ANTIBIOTIC INTERPRETATION TARA Amikacin S <16 Amoxacillin/K Clavulanate S <8 Ampicillin S <8 Ampicillin/Sulbactam S <4 Aztreonam S <4 Cefazolin S <2 Cefepime S <2 Ceftazidime S <1 Ceftazidime/Avibactam S <4 Ceftolozane/Tazobactam S <2 Ceftriaxone S <1 Cefuroxime S <4 Ciprofloxacin S <0.25 Ertapenem S <0.5 Gentamicin S <2 Levofloxacin S <0.5 Meropenem S <1 Meropenem/Vaborbactam S <2 Nitrofurantoin S <32 Piperacillin/Tazobactam S <8 Tetracycline S <4 Tigecycline S <2 Tobramycin S <2 Trimethoprim/Sulfametho xazole S <0.5 S = SUSCEPTIBLE I = INTERMEDIATE R = RESISTANT BLANK = DATA NOT AVAILABLE, OR DRUG NOT ADVISABLE OR TESTED R* = RESISTANCE DUE TO EXTENDED SPECTRUM BETA-LACTAMASES ESBL = EXTENDED SPECTRUM BETA-LACTAMASE TFG = THYMIDINE-DEPENDENT STRAIN LESLY = BETA-LACTAMASE POSITIVE IB = INDUCIBLE BETA-LACTAMASE. APPEARS IN PLACE OF 'S' WITH SPECIES KNOWN TO POSSESS INDUCIBLE BETA-LACTAMASES. POTENTIALLY THEY MAY BECOME RESISTANT TO ALL B-LACTAM DRUGS. PERFORMED BY: [address] [place] [address] PATHOLOGIST [employer] SALES REPRESENTATIVE PENG POLO M.D. Normal [facility] Comment on above: Performed By: #### A NA, C4, C3, CH50 #### [facility] , #### CRP, CREAT, ADDONUAPLUS, CUU, ESR, CBC #### [address] Urine bacteria detection by automated methodOrdered By: Paresh Tian on 07-16-2022 Bacteria Auto Ql (U) 4+ None Seen [facility] Urine clarity by refractomet ry automatedOrdered By: Paresh Tian on 07-16-2022 Clarity Refractometry automated (U) Clear Clear [facility] Urine culture routineOrdered By: Paresh Tian on 07-16-2022 Bacteria identified Cx Nom (U) Escherichia coli [facility] Urine glucose measurement by automated test strip (mass/volume)Ordered By: Paresh Tian on 07-16-2022 Glucose Auto test strip (U) [Mass/Vol] Normal mg/dL Normal [facility] Urine hemoglobin detection b y automated test stripOrdered By: Paresh Tian on 07-16-2022 Hemoglobin Auto test strip Ql (U) Negative Negative [facility] Urine leukocyte esterase det ection by automated test stripOrdered By: Paresh Tian on 07-16-2022 Leukocyte esterase Auto test strip Ql (U) 3+ Negative [facility] Urobilinogen Auto test strip (U) [Mass/Vol]Ordered By: Paresh Tian on 07-16-2022 Urobilinogen (U) [Mass/Vol] Normal mg/dL Normal [facility] WBC Auto (Bld) [#/Vol]Ordere d By: Paresh Tian on 07-16-2022 WBC (Bld) [#/Vol] 10.4 10*3/uL 3.8-11.6 [facility] pH Auto test strip (U)Ordere d By: Paresh Tian on 07-16-2022 pH (U) 6.5 [pH] 5.0-9.0 [facility] XR lumbar spine 6V w bending on 07-03-2022 XR lumbar spine 6V w bending [facility] [address] [place] [address] [place] [address] XRay Report Signed Patient: Kim Hill MR#: [id number] : 1970 Acct:[id number] Age/Sex: 51 / F ADM Date: 07/03/22 Loc: XD Room: Type: [facility] Attending Dr: Aby SIMPSON Copies to: CALVIN Wiley Ordering Provider: CALVIN Wiley Date of Service: 07/03/22 XR/XR lumbar spine 6V w bending: M54.51 LUMBAR SPINE - 9 views CLINICAL HISTORY: Low back pain radiates down right leg with numbness. Bilateral foot numbness/pain for 2 years. COMPARISON: Lumbar spine 11/11/2020 FINDINGS: Posterior hardware fixation L4-S1 without radiographic complication. Vertebral body and remaining disc space heights appear maintained. No pathological motion on flexion or extension views. SI joints demonstrate mild degenerative change. XR/XR lumbar spine 6V w bending IMPRESSION: NO ACUTE BONY PROCESS OR EVIDENCE OF HARDWARE COMPLICATION. Impression dictated by: Gary Gifford Jr., DPanchoOPancho07/03/2022 3:59 PM Dictation Location: [place] [address] Transcribed By: [facility] 07/03/22 1559 Dictated By: Gary Gifford Jr, DO 07/03/22 1557 Signed By: 07/03/22 1559 [facility] XR HIPS ZEINA 3_4V WO PELVISon 05-15-2022 XR HIPS ZEINA 3_4V WO PELVIS EXAMINATION: XR HIPS ZEINA 3_4V WO PELVIS HISTORY: Osteoarthritis of bilateral hip joints COMPARISON: No relevant comparison available. FINDINGS: RIGHT FINDINGS: BONES: Normal. No significant arthropathy or acute abnormality. SOFT TISSUES: Negative. No visible soft tissue swelling. OTHER: Negative. LEFT FINDINGS: BONES: Normal. No significant arthropathy or acute abnormality. SOFT TISSUES: Negative. No visible soft tissue swelling. OTHER: Negative. IMPRESSION: RIGHT CONCLUSION: No significant arthritis LEFT CONCLUSION: No significant arthritis Electronically authenticated by: DASHA KHAN Date: 2022-05-15 07:[address] [facility] Covid-19 PCR (CVDTB)on SARS-CoV-2 (COVID-19) RNA AMBERLY+probe Ql (Unsp spec) Not detected Normal NOT DETECTED [facility] Comment on above: Result Comment: This test is not yet approved or cleared by the [place] FDA. When there are no FDA-approved or cleared tests available, and other criteria are met, FDA can make tests available under an emergency access mechanism called an Emergency Use Authorization (EUA). The EUA for this test is supported by the [employer] Supervisor of Health and Human Service's (HHS's) declaration that circumstances exist to justify the emergency use of in vitro diagnostics for the detection and/or diagnosis of the virus that causes COVID-19. This EUA will remain in effect (meaning this test can be used) for the duration of the COVID-19 declaration justifying emergency of IVDs, unless it is terminated or revoked by FDA (after which the test may no longer be used). When diagnostic testing is negative, the possibility of a false negative should be considered in the context of a patient's recent exposures and the presence of clinical signs and symptoms consistent with SARS-CoV-2. Performed By: #### [facility] #### [facility] [address] [place] [address] Dr. Narendra Jacobsen COVID-19 Positive/NegativeOr dered By: Baljinder Rausch on 01-31-2022 SARS-CoV-2 (COVID-19) N gene AMBERLY+probe Ql (Resp) Negative Negative [facility] Comment on above: Testing for SARS-CoV -2 by RT-PCR This test was developed and its performance characteristics determined by [employer] ([place]) and validated at the [facility]. This test has not been FDA cleared or approved. This test has been authorized by FDA under an Emergency Use Authorization (EUA). This test has been validated in accordance with the FDA's Guidance Document (Policy for Diagnostics Testing in Laboratories Certified to Perform High Complexity Testing under CLIA prior to Emergency Use Authorization for Coronavirus Disease-2019 during the Public Health Emergency) issued on August 31, 2019. This test is only authorized for the duration of time the declaration that circumstances exist justifying the authorization of the emergency use of in vitro diagnostic tests for detection of SARS-CoV-2 virus and/or diagnosis of COVID-19 infection under section 564(b)(1) of the Act, 21 U.S.C. 360bbb-3(b)(1), unless the authorization is terminated or revoked sooner. COVID-19 Positive/Negativeon 05-20-2020 COVID-19 Positive/Negative Negative Negative [facility] Comment on above: Testing for SARS-CoV -2 by RT-PCRThis test was developed and its performance characteristics determined by [employer] ([employer] and validated at the [facility]. This test has not been FDA cleared or approved. This test has been authorized by FDA under an Emergency Use Authorization (EUA). This test has been validated in accordance with the FDA's Guidance Document (Policy for Diagnostics Testing in Laboratories Certified to Perform High Complexity Testing under CLIA prior to Emergency Use Authorization for Coronavirus Disease-2019 during the Public Health Emergency) issued on August 31, 2019. This test is only authorized for the duration of time the declaration that circumstances exist justifying the authorization of the emergency use of in vitro diagnostic tests for detection of SARS-CoV-2 virus and/or diagnosis of COVID-19 infection under section 564(b)(1) of the Act, 21 U.S.C. 360bbb-3(b)(1), unless the authorization is terminated or revoked sooner. Otheron 05-20-2020 Coronavirus 2019 PCR Interp N/A [facility] Automated basophil %on 05-14 Basophils/100 WBC (Bld) 0.5 % F [facility] Automated basophil counton 1 07-15-2019 Basophils (Bld) [#/Vol] 0.0 10*3/uL 0.0-0.2 [facility] Automated blood lymphocyte c ount (number/volume)on 05-14-2020 Lymphocytes (Bld) [#/Vol] 2.8 10*3/uL 1.00-4.8 [facility] Automated blood lymphocyte c ount as percentage of total leukocyteson 05-14-2020 Lymphocytes/100 WBC (Bld) 35.0 % [facility] Automated blood monocyte cou nton 05-14-2020 Monocytes (Bld) [#/Vol] 0.6 10*3/uL 0.0-0.8 [facility] Automated blood platelet cou nt (count/volume)on 05-14-2020 Platelets (Bld) [#/Vol] 225 10*3/uL 150-450 [facility] Automated blood platelet jose n volume measurementon 05-14-2020 Platelet mean volume (Bld) [Entitic vol] 8.2 fL 6.3-10.7 [facility] Automated eosinophil %on Eosinophils/100 WBC (Bld) 1.5 % [facility] Automated eosinophil counton 05-14-2020 Eosinophils (Bld) [#/Vol] 0.1 10*3/uL 0.0-0.45 [facility] Automated erythrocyte distri bution width ratioon 05-14-2020 Erythrocyte distribution width (RBC) [Ratio] 12.3 % 11.9-15.3 [facility] Automated erythrocyte mean c orpuscular hemoglobin (mass per erythrocyte)on 05-14-2020 MCH (RBC) [Entitic mass] 35.2 pg 24.7-34.3 [facility] Automated erythrocyte mean c orpuscular hemoglobin concentration measurement (mass/volon 05-14-2020 MCHC (RBC) [Mass/Vol] 34.2 g/dL 32.0-35.[address] [facility] Automated erythrocyte mean c orpuscular volumeon 05-14-2020 MCV (RBC) [Entitic vol] 102.9 fL 80-100 F [facility] Automated monocyte %on 05-14 Monocytes/100 WBC (Bld) 7.0 % F [facility] Automated neutrophil %on Neutrophils/100 WBC (Bld) 56.0 % [facility] Blood erythrocytes automated count (number/volume)on 05-14-2020 RBC (Bld) [#/Vol] 4.08 10*6/uL 3.60-5.[address] [facility] Blood hemoglobin measurement (mass/volume)on 05-14-2020 Hemoglobin (Bld) [Mass/Vol] 14.3 g/dL 11.8-15.4 [facility] Blood leukocytes automated c ount (number/volume)on 05-14-2020 WBC (Bld) [#/Vol] 7.9 10*3/uL 4.5-11.0 [facility] Blood neutrophil count by au tomated method (number/volume)on 05-14-2020 Neutrophils (Bld) [#/Vol] 4.4 10*3/uL 1.8-7.7 [facility] Estimated glomerular filtrat ion rate (GFR) non- Americanon 05-14-2020 GFR/1.73 sq M predicted among non-blacks MDRD (S/P/Bld) [Vol rate/Area] mL/min/{1.73_m2} [facility] Hematocrit [Volume Fraction] of Blood by Automated counton 05-14-2020 Hematocrit (Bld) [Volume fraction] 41.9 % 34.0-46.4 [facility] Otheron 05-14-2020 GFR/1.73 sq M.predicted MDRD (S/P/Bld) [Vol rate/Area] mL/min/{1.73_m2} [facility] Comment on above: GFR estimated refere nce range: According to KDOQI guidelines, <60 ml/min/1.73m2 is sufficient to diagnose a patient with chronic kidney disease. Nucleated RBC/100 WBC (Bld) [Ratio] 0.1 % 0-0.5 [facility] Creatinine Clearance (Chem N/A [facility] Serum or plasma calcium octavio urement (mass/volume)on 05-14-2020 Calcium [Mass/Vol] 10.1 mg/dL 8.2-10.2 [facility] Serum or plasma chloride jose surement (moles/volume)on 05-14-2020 Chloride [Moles/Vol] 101 mmol/L 95-114 [facility] Serum or plasma creatinine m easurement with calculation of estimated glomerular filtron 05-14-2020 Creatinine [Mass/Vol] 0.60 mg/dL 0.44-1.[address] [facility] Serum or plasma glucose octavio urement (mass/volume)on 05-14-2020 Glucose [Mass/Vol] 94 mg/dL 70-100 [facility] Comment on above: ADA recommended refe rence rangeRandom Glucose Reference Range is dependent on time and content of last meal. Glucose of more than 200 mg/dL in a nonstressed, ambulatory subject supports the diagnosis of Diabetes Mellitus. Serum or plasma potassium me asurement (moles/volume)on 05-14-2020 Potassium [Moles/Vol] 4.3 mmol/L 3.5-5.1 [facility] Serum or plasma sodium measu rement (moles/volume)on 05-14-2020 Sodium [Moles/Vol] 140 mmol/L 136-146 [facility] Serum or plasma total carbon dioxide measurement (moles/volume)on 05-14-2020 CO2 [Moles/Vol] 27.2 mmol/L 22.0-30.[address] [facility] Serum or plasma urea nitroge n measurement (mass/volume)on 05-14-2020 Urea nitrogen [Mass/Vol] 7 mg/dL 9- [facility] Vital Signs Date Time Vital Sign Value Performing Clinician Facility 08-17-2022 16:00-0400 Body height 160.02 cm Gina Blades Other [facility] Other 08-17-2022 16:00-0400 Body mass index (BMI) [Ratio] 40.56 kg/m2 Gina Blades Other [facility] Other 08-17-2022 16:00-0400 Body weight 103.87 kg Gina Blades Other [facility] Other 08-17-2022 16:00-0400 Diastolic blood pressure 82 mm[Hg] Gina Blades Other [facility] Other 08-17-2022 16:00-0400 Systolic blood pressure 126 mm[Hg] Gina Blades Other [facility] Other Encounters Encounter Date Encounter Type Care Provider Facility Start: 10-27-2022 ambulatory NARENDRANATH LAKSHMIPATHY . Facility: Start: 10-13-2022 End: 10-13-2022 ambulatory NARENDRANATH LAKSHMIPATHY . Facility: Start: 10-06-2022 End: 10-07-2022 ambulatory NARENDRANATH LAKSHMIPATHY . Facility:[facility] Start: 09-08-2022 End: 09-08-2022 ambulatory Gina Blades Other [facility] [employer] Other Start: 09-08-2022 Telephone encounter Gina Blades [facility] Start: 09-01-2022 End: 09-02-2022 ambulatory NARENDRANATH LAKSHMIPATHY . Facility:[facility] Start: 08-17-2022 End: 08-17-2022 ambulatory Gina A Blades Facility:[facility] Start: 08-17-2022 End: 08-17-2022 Patient encounter procedure DO Roberto Roth Work Phone: [facility] Work Phone: Start: 08-17-2022 End: 08-17-2022 ambulatory DO Roberto Roth Work Phone: [facility] Work Phone: Start: 08-17-2022 Office outpatient ne w 45 minutes Gina Blades [facility] Start: 07-16-2022 End: 07-16-2022 ambulatory Paresh Mickyrhetty Facility:[facility] Start: 07-16-2022 End: 07-17-2022 ambulatory DO Roberto Roth Work Phone: [facility] Work Phone: Start: 07-16-2022 End: 07-16-2022 Patient encounter procedure DO Roberto Roth Work Phone: [facility] [address] Work Phone: Start: 07-03-2022 End: 07-03-2022 ambulatory Aby Yu Facility:[facility] Start: 07-03-2022 End: 07-03-2022 ambulatory DO Roberto Roth Work Phone: [facility] Work Phone: Start: 07-03-2022 End: 07-03-2022 Patient encounter procedure DO Roberto Roth Work Phone: [facility] [address] [place] Work Phone: Start: 06-23-2022 End: 06-23-[address] HOOD RAUSCH . Facility:[facility] Start: 05-29-2022 End: 05-30-[address] HOOD RAUSCH . Facility:[facility] Start: 05-14-2022 End: 05-15-2022 ambulatory ADA SINGH . Facility:[facility] Start: 03-12-2022 End: 03-13-[address] HOOD RAUSCH . Facility:[facility] Start: 02-13-2022 Encounter for preprocedural laboratory examination DR HOOD RAUSCH . [facility] Start: 02-10-2022 End: 02-10-[address] HOOD RAUSCH . Facility:[facility] Start: 02-06-2022 End: 02-07-[address] HOOD RAUSCH . Facility:[facility] Start: 02-06-2022 End: 02-07-2022 Encounter for preprocedural laboratory examination DR HOOD RAUSCH . Facility:[facility] Start: 02-03-2022 End: 02-03-[address] HOOD RAUSCH . Facility:[facility] Start: 01-31-2022 End: 01-31-2022 Patient encounter procedure DO Roberto Roth Work Phone: [facility] Start: 01-16-[address] HOOD RAUSCH . Faci lity:[facility] Start: 01-07-2022 End: 01-08-[address] HOOD RAUSCH . Facility:[facility] Start: 05-20-2020 End: 05-20-2020 Patient encounter procedure Roberto Hannahe -Pre-Surgical Testing Start: 05-14-2020 End: 05-14-2020 Patient encounter procedure Roberto Roth -Pre-Surgical Testing Start: 04-26-2020 End: 04-26-2020 Patient encounter procedure Roberto Hannahe -[facility] [address] [place] Procedures Date Procedure Procedure Detail Performing Clinician Start: 07-16-2022 Urine culture DO Roberto reyes Work Phone: Start: 07-03-2022 X-ray of lumbar spin e, six views including bending views DO Roberto Roth Work Phone: Start: 04-26-2020 X-ray of lumbar spin e, four views Roberto Roth Plan of Treatment Date Care Activity Detail Author Start: 08-17-2022 Plain X-ray of right hip XR hi p RT min 2V(w/wo pelvis)* [facility] Start: 08-17-2022 XR Hip - right 2 Views [facility] Start: 07-16-2022 Bacteria identified in Urine by Culture [facility] Start: 07-16-2022 Hemolytic complement CH50 level [facility] Start: 07-16-2022 [facility] Complement C3 [Mass/volume] in Serum or Plasma [facility] Complement C4 [Mass/volume] in Serum or Plasma [facility] Homogenous nuclear A b pattern [Titer] in Serum [facility] Nuclear Ab [Titer] i n Serum [facility] Immunizations Immunization Date Immunization Notes Care Provider Fa cility 11-09-2020 COVID-19 mRNA-1273 (Moderna) DO Roberto Roth Work Phone: [facility] 10-12-2020 COVID-19 mRNA-1273 (Moderna) DO Roberto Roth Work Phone: [facility] 05-23-2020 influenza, injectabl e, quadrivalent, preservative free DO Roberto Roth Work Phone: [facility] Payers Date Payer Category Payer Self-pay [id number] 1970 Unknown [id number] 2.16.84 [id number] 1970 Unknown [id number] 0.1.173366.3.579.2 1970 Unknown [id number] .16.84 0.1.834407.3.579.2.593 1968 Unknown [id number] .16.84 0.1.707859.3.579.2.593 1968 Unknown [id number] 2.16.84 0.1.313982.3.579.2.593 1970 Unknown [id number] 2.16.84 0.1.540391.3.579.2.593 1968 Unknown [id number] 2.16.84 0.1.740544.3.579.2.593 1970 Unknown [id number] 2.16.84 0.1.232467.3.579.2.593 1968 Unknown [id number] 2.16.84 0.1.667203.3.579.2.593 1968 Unknown [id number] 2.16.84 0.1.161478.3.579.2.593 1968 Unknown [id number] 2.16.84 0.1.015817.3.579.2.593 1968 Unknown [id number] 2.16.84 0.1.647452.3.579.2.593 1968 Unknown [id number] 2.16.84 0.1.497780.3.579.2.593 1968 Unknown [id number] 2.16.84 0.1.091252.3.579.2.593 1968 Unknown [id number] 2.16.84 0.1.981839.3.579.2.593 1959 Unknown [id number] Unknown [id number] Unknown [id number] .16.8 40.1.144462.3.579.2.531 Unknown [id number] .16.8 40.1.878040.3.579.2.531 Unknown [id number] .16.8 40.1.407877.3.579.2.531 Social History Date Type Detail Facility Start: 05-14-2020 End: 06-23-2021 Tobacco smoking status NHIS Smoker (finding) [facility] Start: 1970 Sex Assigned At Female F [facility] Start: 06-23-1987 History of tobacco use [facility] Work Phone: Medical Equipment Procedure Code Equipment Code Equipment Origin al Text Equipment Identifier Dates Fusion, spine, lumbar, XLIF CANCELLOUS COARSE 7.5CC FDA Start: 05-22-2020 Fusion, spine, lumbar, XLIF Bone-screw internal spinal fixation system, non-sterile ()[id number] FDA Start: 05-22-2020 Fusion, spine, lumbar, XLIF Bone-screw internal spinal fixation system, non-sterile ()[id number] FDA Start: 05-22-2020 Fusion, spine, lumbar, XLIF Bone-screw internal spinal fixation system, non-sterile ()[id number] FDA Start: 05-22-2020 Fusion, spine, lumbar, XLIF CANCELLOUS COARSE 7.5CC FDA Start: 05-22-2020 Fusion, spine, lumbar, XLIF Bone-screw internal spinal fixation system, non-sterile ()[id number] FDA Start: 05-22-2020 Fusion, spine, lumbar, XLIF Bone-screw internal spinal fixation system, non-sterile ()[id number] FDA Start: 05-22-2020 Fusion, spine, lumbar, XLIF Polymeric spinal fusion cage, non-sterile ()[id number] FDA Start: 05-22-2020 Fusion, spine, lumbar, XLIF Dura mater graft, bovine ()[id number] FDA Start: 05-22-2020 Fusion, spine, lumbar, XLIF MAS REDUCTION FIXATION ADD LEV FDA Start: 05-22-2020 Fusion, spine, lumbar, XLIF XLIF 1 LEVEL MAS REDUCTION FDA Start: 05-22-2020 Fusion, spine, lumbar, XLIF Spinal fusion graft kit ()[id number] FDA Start: 05-22-2020 Fusion, spine, lumbar, XLIF Bone matrix implant, human-derived ()[id number] FDA Start: 05-22-2020 Fusion, spine, lumbar, XLIF Metallic spinal fusion cage, non-sterile ()[id number] FDA Start: 05-22-2020 Fusion, spine, lumbar, XLIF Bone-screw internal spinal fixation system, non-sterile ()[id number] FDA Start: 05-22-2020 Fusion, spine, lumbar, XLIF CANCELLOUS COARSE 7.5CC FDA Start: 05-22-2020 Fusion, spine, lumbar, XLIF CANCELLOUS COARSE 7.5CC FDA Start: 05-22-2020 Fusion, spine, lumbar, XLIF MAS REDUCTION FIXATION ADD LEV FDA Start: 05-22-2020 Fusion, spine, lumbar, XLIF XLIF 1 LEVEL MAS REDUCTION FDA Start: 05-22-2020 Fusion, spine, lumbar, XLIF CANCELLOUS COARSE 7.5CC FDA Start: 05-22-2020 Fusion, spine, lumbar, XLIF CANCELLOUS COARSE 7.5CC FDA Start: 05-22-2020 Fusion, spine, lumbar, XLIF MAS REDUCTION FIXATION ADD LEV FDA Start: 05-22-2020 Fusion, spine, lumbar, XLIF XLIF 1 LEVEL MAS REDUCTION FDA Start: 05-22-2020 Fusion, spine, lumbar, XLIF CANCELLOUS COARSE 7.5CC FDA Start: 05-22-2020 Fusion, spine, lumbar, XLIF CANCELLOUS COARSE 7.5CC FDA Start: 05-22-2020 Fusion, spine, lumbar, XLIF MAS REDUCTION FIXATION ADD LEV FDA Start: 05-22-2020 Fusion, spine, lumbar, XLIF XLIF 1 LEVEL MAS REDUCTION FDA Start: 05-22-2020 Goals Date Patient Goal Desired Activity /State Clinical Notes 01-07-2022 to 10-06-2022 Note Date & Type Note Facility 10-06-2022 Note CONSULTATION CONSULTATION DATE: 10/06/2022 TO: Roberto Roth D.O. CHIEF COMPLAINT: Includes right sided hip and buttock pain. HISTORY: She reports the pain as being 5-7/10 pain, sharp in character, with a deep aching, throbbing component on the right side of her hip and buttock area. She reports having sensitivity to even light touch in the area. Pain seems to increase with activities such as standing, walking and performing transitioning maneuvers. She feels most comfortable in the semi-recumbent position. Denies any change in bowel and bladder habits or new sensorimotor changes in the lower extremities. EXAM: Notable for patient having dysesthesia and hypoesthesia overlying the distribution of the lateral cutaneous branch of the iliohypogastric nerve on the right side. She has severe myofascial spasm involving the right gluteus medius. 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 RECOMMENDATIONS: I have recommended proceeding with a diagnostic right sided nerve block of the right lateral cutaneous branch of the iliohypogastric nerve under fluoroscopic guidance. I have asked her to continue with the use of baclofen 10 mg pills, one pill b.i.d. and to continue to use [place] 7.5 mg t.i.d. We did reduce the use at her last visit from 90 pills a month to 80 pills to last one month's time. She appears to be tolerating this transition quite well. I have asked her to continue with gabapentin 600 mg t.i.d. Her JOYCE on today's visit is 28. She reports the [place] does improve her quality of life, level of functioning and sleep pattern, and she denies any side effects. As part of providing excellent, safe, comprehensive care, the following was completed at our patient's visit: 1. A medication reconciliation and review to ensure accurate knowledge of current/active medications, including asking our patients to inform us about any [id number] medications or herbal remedies/nutritional supplements/alternative remedies. 2. A review to specifically ensure our patients have had annual screening for: elevated body mass index (BMI, see intake chart for exact total), tobacco use, screening for depression, and screening for unhealthy alcohol use. When screening is concerning, patients are provided with education and the specific recommendation to discuss the concerning health issue and treatment options with their primary care provider. [facility] 09-01-2022 Note CONSULTATION CONSULTATION DATE: 09/01/2022 TO: Dr. Roth CHIEF COMPLAINT: Includes lower back pain, worse on the right than left side. HISTORY: She rates it as 5-7/10 pain, sharp in character, seems to be increased with activities such as standing, walking and performing transitioning maneuvers. She denies any change in bowel and bladder habits or new sensorimotor changes in the lower extremities. EXAM: Notable for patient having dysesthesia and hyperesthesia overlying the distribution of the lateral cutaneous branch of the iliohypogastric nerve, moderate amount of pain with lumbar facet joint loading maneuvers occurring bilaterally, and myofascial spasm of the lumbar paravertebral muscles. IMPRESSION: Patient appears to have chronic pain secondary to post laminectomy syndrome, right greater than left neuritis involving the lateral cutaneous branch of the iliohypogastric nerve and lumbar spondylosis and myofascial spasm. RECOMMENDATIONS: I have placed her on baclofen 10 mg pills, half pill to one pill up to t.i.d., and we will see the patient back in the office in approximately six weeks' time or sooner if needed. As part of providing excellent, safe, comprehensive care, the following was completed at our patient's visit: 1. A medication reconciliation and review to ensure accurate knowledge of current/active medications, including asking our patients to inform us about any fhkc-ajf-xiydhnh medications or herbal remedies/nutritional supplements/alternative remedies. 2. A review to specifically ensure our patients have had annual screening for: elevated body mass index (BMI, see intake chart for exact total), tobacco use, screening for depression, and screening for unhealthy alcohol use. When screening is concerning, patients are provided with education and the specific recommendation to discuss the concerning health issue and treatment options with their primary care provider. [facility] 08-17-2022 Evaluation note Encounter Date Diagnosis Assessment Notes Jul, Other chronic pain (ICD-10 - G89.29) Jul, Low back pain, unspecified (ICD-10 - M54.50) [facility] Other 02-16-2023 NoteCONSULTATION CONSULTATION DATE: 07/16/2022 HISTORY OF PRESENT ILLNESS: This is a 51-year-old female who returns to the clinic status post bilateral SI joint injection completed on 06/23/2022. The patient received 80% relief for one day and on day two felt worse than her normal baseline pain. Today, she rates her pain 8/10. Medications include gabapentin 600 mg t.i.d., [place] 7.5/325 b.i.d. and Mobic 15 mg daily. She has followed up with her PCP at Dr. Bermudez's office and, due to the increased pain, they ordered a lumbar MRI which is to be done next 07/22/2022. All physical activity greatly aggravates her pain, specifically housework, lifting, standing and walking. She does use heat and, in addition to her medication, decreases her pain. Patient feels that there is pathology in her hips, as she feels when she sits she is dislocating something. She did have a pelvis x-ray completed on 05/15/2022 which showed no significant arthritis to her bilateral hips, but positive in the sacroiliac joints. Patient's REVIEW OF SYSTEMS / PAST MEDICAL HISTORY / ALLERGIES and IMAGES have been reviewed and noted on the chart. PHYSICAL EXAM: VITAL SIGNS: Blood pressure is 142/78. Heart rate is 98. She is 5'3 , weighs 103 kg. GENERAL IMPRESSION: Pleasant, appropriate, notably uncomfortable in the chair, but in no acute distress. FOCUSED EXAM - BACK: Range of motion is guarded in lateral rotation and flexion/extension. Paravertebral muscles are non-spasmodic. Mild spinal axial pain upon compression along the lower lumbar facets of L3, L4, L5 bilaterally. Bilateral SI joints exquisitely tender with pain radiating to the groin, indicative of sacroiliitis. MUSCULOSKELETAL: Motor is intact, 4/5 bilaterally. Patient walks unassisted with a stable but antalgic gait. NEUROLOGICAL: Diffuse polyneuropathy to bilateral feet, which is non-dermatomal. Patient is cognitively intact. Bilateral lower extremity reflexes 1/2. DIAGNOSIS: Bilateral sacroiliitis, lumbar degenerative disc disease, lumbar spondylosis, chronic lower back pain. PLAN: We will refill her medications; Mobic 15 mg daily and [place] 7.5/325 b.i.d. She will return to the clinic in six weeks' time, in which we will, in addition to her PCPs office, review the MRI and form a plan of care at that time. Patient is in agreement to this plan.[facility] [id number] Note CONSULTATION CONSULTATION DATE: 05/29/2022 HISTORY OF PRESENT ILLNESS: This is a 51-year-old female who returns to the clinic for re-evaluation of bilateral hip and buttock pain. The patient did fulfill pelvic and hip x-rays at my request and her hip x-rays were negative for joint space pathology. She is complaining of pain 3/10 at rest, increases to 6/10 with activity. Twisting, pushing, pulling, turning, stairs and bending greatly aggravate her pain. She has difficulty ambulating long distances at work, as she feels the need to sit down. Medications include gabapentin 600 mg t.i.d., [place] 7.5/325 b.i.d. and diclofenac 50 mg daily. She is unable to tolerate the diclofenac, stating it makes her reflux worse. Patient's REVIEW OF SYSTEMS / PAST MEDICAL HISTORY / ALLERGIES and IMAGES have been reviewed and noted in the chart. PHYSICAL EXAM: VITAL SIGNS: Blood pressure 170/80, heart rate is 102. Temperature is 98. She is 5'3 , weight 99.7 kg. GENERAL IMPRESSION: Pleasant, appropriate, in no acute distress. FOCUSED EXAM - BACK: Cydney's point is tender bilaterally with positive jump response, right greater than left. FABERs, compression and thigh thrust tests are positive, with pain radiating to bilateral groin. Paravertebral muscles are non-spasmodic. Patient has no radiating pain below the knees bilaterally. MUSCULOSKELETAL: Motor is intact, 4/5 bilaterally. Patient walks unassisted with a stable gait. Muscle tone is adequate. NEUROLOGICAL: Negative polyneuropathy bilateral lower extremities. Reflexes are intact 2/2. DIAGNOSIS: Bilateral sacroiliitis, chronic lower back pain. PLAN: We will authorize for bilateral SI joint injections. We will change her NSAID from diclofenac to Mobic 15 mg daily. U-Tox will be done in the office today as well. Patient agrees with the plan of care and will be followed up thereafter.[facility] [id number] NoteCONSULTATION CONSULTATION DATE: 05/14/2022 HISTORY OF PRESENT ILLNESS: This is a 51-year-old female who returns to the clinic for a two month follow up for chronic lower back pain and hip pain. Today, she is complaining of 4/10 bilateral hip pain. It is aggravated by standing, activity, side lying, stairs and bending. In the morning and evening, she is very stiff. She currently is taking ibuprofen 400 mg q. 4 hours, as well as gabapentin 600 mg t.i.d., [place] 7.5/325 t.i.d. At her last appointment, she was instructed to stop the ibuprofen and restart the diclofenac at 50 mg b. i.d. The patient did not do that. She has recently started a multitude of vitamins per her PCP, which she feels is very beneficial. She does have bilateral feet hypoesthesia. Patient's REVIEW OF SYSTEMS / PAST MEDICAL HISTORY / ALLERGIES and IMAGES have been reviewed and noted on the chart. PHYSICAL EXAM: VITAL SIGNS: Blood pressure is 156/83. Heart rate is 83. Patient is 5'3 , weighs 101 kg. GENERAL APPEARANCE: Pleasant, appropriate, no acute distress. FOCUSED EXAM - BACK: Range of motion is functional in lateral rotation and flexion/extension. No reproduction of spinal axial pain along compression of the lumbar facets. Cydney's point non-tender. Negative FABERs and compression test. BILATERAL HIPS: Posterior compression along the aspect of bilateral hip joints reproduces patient's pain symptomatology. Range of motion is guarded in adduction, abduction and lateral raises bilaterally. MUSCULOSKELETAL: No vasomotor weakness noted. Motor is 5/5 bilaterally. NEUROLOGICAL: Diffuse polyneuropathy bilateral lower feet diffusely. Patellar reflexes are +1 bilaterally. DIAGNOSIS: Bilateral hip osteoarthritis, chronic lower back pain, lumbar spondylosis and lumbar degenerative disc disease. PLAN: Due to lack of imaging, we will obtain bilateral hip x-rays. We will authorize for bilateral hip injections as well. Refills for gabapentin 600 mg t.i.d. and [place] 7.5/325 b.i.d. will be sent to her pharmacy. Patient agrees to move forward with the procedure. She will followed up in the clinic thereafter.[facility] [id number] NotePAIN MANAGEMENT CONSULTATION CONSULTATION DATE: 05/14/2022 CHIEF COMPLAINT: Bilateral hip pain. HISTORY OF PRESENT ILLNESS: The patient was seen in the office on 05/14/2022. X-rays were ordered of her hips bilaterally, along with her pelvis. RADIOLOGICAL IMAGES: We were able to define the x-rays of the hips did not have any active pathology; however, the sacroiliac joint has pathology and sclerosis bilaterally. The patient has a fusion pin at the level of L5 bilaterally. PLAN: As such, given that sclerotic changes are noted along the sacroiliac joint and the patient's pain would be consistent with this, we will look to proceed with a sacroiliac joint injection under fluoroscopy.[facility] [id number] NoteCONSULTATION CONSULTATION DATE: 03/12/2022 ADDENDUM DIAGNOSIS: Lumbar spondylosis, lumbar degenerative disc disease, chronic lower back pain and a history of a lumbar fusion.[facility] [id number] Note CONSULTATION CONSULTATION DATE: 03/12/2022 This is a 51-year-old female returning to the clinic status post bilateral repeat RFA of L3, L4 and L5, that was completed on 02/10/2022. The patient has been afforded 95% relief and is very pleased with the results. She has some residual allodynia to the upper part of her buttocks, primarily to the left side. She has been working numerous hours on a daily basis at work and feels that increased activity aggravates her back somewhat. She does have intermittent and patchy hypesthesia to the right anterior thigh. But overall, the patient's endurance is higher and longer and is able to work more hours with less pain. Current medications include gabapentin 600 mg t.i.d., [place] 7.5/325 b.i.d., diclofenac cream and ibuprofen. She is on a multivitamin regimen. She has diclofenac 15 mg prescribed to her but states it upsets her stomach. REVIEW OF SYSTEMS, PAST MEDICAL HISTORY, ALLERGIES AND IMAGES: Have been reviewed and noted in the chart. PHYSICAL EXAM: VITAL SIGNS: Blood pressure 127/80, heart rate is 88, she weighs 100.5 kg. GENERAL APPEARANCE: Pleasant, appropriate and in no acute distress. FOCUSED EXAM: BACK: Range of motion is functional in lateral rotation and flexion/extension. Paravertebral muscles are taut but non-spasmodic. Allodynia reproduced upon light compression on her bilateral upper buttock region, left greater than right. MUSCULOSKELETAL: Motor is intact, 5 out of 5 strength bilaterally. Muscle tone is good. The patient has a stable, non-antalgic gait. NEUROLOGICAL: Patchy hypesthesia, no long L3, L4 dermatomes to the right that does not extend below the leg. Radicular sensory and reflexes are intact. PLAN: Education was given to the patient regarding the diclofenac. She is to restart that at 50 mg q. day with substantial food in her stomach. She is to continue with her vitamins as well as her [place]. The dose of frequency will not be changed. We will have the patient return to the clinic in two months' time for re-evaluation. The patient is inquiring about an increase of her [place], possibly during the winter months. There will be no changes today.[facility] [id number] NoteCONSULTATION CONSULTATION DATE: 01/07/2022 This is a 51-year-old female who returns to the clinic for 3-month follow-up for her chronic lower back pain. The patient does have radicular pain that she describes as burning and aching that runs down the lateral and latter anterior portion of her right lower extremity to the level of her foot. It is aggravated by twisting, standing, turning, housework and ADLs. She does use ice which helps decrease the pain. Her last intervention to her lower back was in January of 2020 which was radiofrequency ablation at the L3, L4 and L5. The patient did report she received great relief with that. Current medications include gabapentin 600 mg b.i.d., [place] 7.5/325 b.i.d., diclofenac topical, multivitamin regimen and ibuprofen p.r.n. She has tried diclofenac in the past but was unable to tolerate it due to stomach issues but low-dose ibuprofen she can tolerate. She is needing [place] and gabapentin refill today. REVIEW OF SYSTEMS, PAST MEDICAL HISTORY, ALLERGIES AND IMAGES: Have been reviewed and noted in the chart. PHYSICAL EXAM: VITAL SIGNS: Blood pressure 143/85, heart rate is 93, temperature is 98. Height is 5'3 , weighs 98 kg. GENERAL APPEARANCE: Pleasant, appropriate, uncomfortable sitting in the chair with her right leg extended. FOCUSED EXAM: BACK: Range of motion is guarded and limited in lateral rotation and flexion/extension. Paravertebral muscles are taut bilaterally. Reproduction of spinoaxial pain to compression of the lumbar facets of L2, L3 and L4, L5, right side greater than left with radiation of the pain below her right knee. Cydney's point is nontender with negative Abhijit's. MUSCULOSKELETAL: Motor is intact 4 out of 5 bilaterally. The patient does not use an assistive device to ambulate and has a steady gait. Muscle tone is adequate to her hamstrings, extensor digitorum and bilateral quadriceps. NEUROLOGICAL: Stocking distribution, hypesthesia noted along the right lower extremity along L4-L5 to the dorsum and lateral aspect of the foot. Blunted right patellar and Achilles reflex. DIAGNOSIS: Lumbar degenerative disk disease, lumbar spondylosis, spinoaxial lower back pain and lumbar radiculitis. PLAN: We will repeat her lumbar radiofrequency ablation starting on the right side of L3, L4 and L4, L5 and subsequently move to the left. Refill for [place] 7.5/325 b.i.d. and gabapentin 600 mg b.i.d. will be sent to the pharmacy. The patient is encouraged to increase magnesium in her vitamin regimen as well as menthol heat rub, seated stretches that were demonstrated and heat application. The patient agrees with the plan of care and would like to move forward and she will follow-up in the clinic post procedure.[facility] HospitalEvaluation noteNo assessment information availableCrystal Clinic Orthopedic Center Work Phone: Evaluation noteNo InformationNortHaven Behavioral Hospital of [facility] [employer] Other History general Narrative - Reported* Type Description Date Medical History osteoarthritis Medical History rheumatoid arthritis Medical History carpal tunnel Medical History fibromyalgia Medical History hypertension Medical History Arthritis Medical History asthma Medical History obesity Medical History pneumonia Medical History anxiety Surgical History hysterectomy 01/2012 Surgical History back surgery Surgical History left middle finger surgery Hospitalization History see above Hospitalization History 4 child births [facility] [employer] Other Advance Directives No Advanced Directives Records Found Advance Directive Response Recorded Date/ Time Advance Directives No March 17, 2019 11:58pm Advance Directive Response Recorded Date/ Time Advance Directives No March 18, 2019 12:58am Chief Complaint and Reason for Visit Chief Complaint m47.817 Spondylolisthesis Spondylolisthesis Chief Complaint Pre-Surgical Testing Chief Complaint M54.51 Chief Complaint M54.51 R53.82 i33.90 G57.11 Assessments No Assessments Information Available Family History No Family History Records Found Relationship Condition Age at Onset Recorded Date/T gracy father Diabetes mellitus Unknown Not Specified Diabetes mellitus Unknown Summary Purpose Additional Source Comments Care Teams (unrecognized sec tion and content) Team Status: Inactive Member Role Status Dates Roberto Roth DO Primary Care Provider Active Hood Rausch MD Attending Provider Active Team Status: Active Member Role Status Dates Roberto Roth DO Primary Care Provider Active Team Status: Inactive Member Role Status Dates Roberto Roth DO Primary Care Provider Active Aby Eisenstein , DISTRICT ENGINEER-C Attending Provider Active Team Status: Inactive Member Role Status Dates Roberto Roth DO Primary Care Provider Active Paresh Tian MD Attending Provider Active Team Status: Inactive Member Role Status Dates Roberto Roth DO Primary Care Provider Active Gina Guerrero MD Attending Provider Active Goals (unrecognized section and content) Goals may be documented in a n alternate sectionGoals may be documented in an alternate sectionGoals may be documented in an alternate sectionGoals may be documented in an alternate sectionNo InformationNo Information INFORMATION SOURCE (unrecogn ized section and content) DATE CREATED AUTHOR 08/01/2022 [facility] dical Specialist DATE CREATED AUTHOR AUTHOR'S ORGANIZ ATION 11/06/2022 [facility] DATE CREATED AUTHOR AUTHOR'S ORGANIZ ATION 02/04/[address] [facility] REASON FOR VISIT (unrecogniz ed section and content) referred by Lorne Gonzales b ack and right hip painmri location FOR RECORDS PERTAINING TO PATIENTS WHO ARE OR HAVE BEEN ENROLLED IN A CHEMICAL DEPENDENCY/SUBSTANCEABUSE PROGRAM, SOME INFORMATION MAY BE OMITTED. This clinical summary was aggregated from multiple sources. Caution should be exercised in using it in the provision of clinical care. This summary normalizes information from multiple sources, and as a consequence, information in this document may materially change the coding, format and clinical context of patient data. In addition, data may be omitted in some cases. CLINICAL DECISIONS SHOULD BE BASED ON THE PRIMARY CLINICAL RECORDS. [employer] provides no warranty or guarantee of the accuracy or completeness of information in this document.
== END 2023-05-20 09:54 | disposition home or self-care (01) ==
PROVIDERS: PCP Family Medicine; Visit Provider Nurse Practitioner
DX: M54.12 Radiculopathy, cervical region (principal); M47.812 Spondylosis without myelopathy or radiculopathy, cervical region; M79.2 Neuralgia and neuritis, unspecified; Z79.891 Long term (current) use of opiate analgesic
CPT/HCPCS: G0463

== ENCOUNTER 2023-08-31 08:43 | Emergency (ER) | payer BC, SELFPAY ==
[2023-08-31 08:53] VITALS: BP 180/105; PULSE 85; TEMP 37; O2SAT 96; BMI 35.4
--- NOTE | 2023-08-31 09:01 | ED_ITS ---
HPI HPI - Back Pain/Injury General Chief Complaint: Back Pain/Injury Stated Complaint: BACK PAIN Time Seen by Provider: 08/31/23 08:48 Source: patient Mode of arrival: Wheelchair Limitations: no limitations History of Present Illness HPI Narrative: 52-year-old female presents for right lower back pain. She has had back surgery and is in pain management. Over the past 2 days she has had increasing pain, a burning, in the right lower back. No weakness or numbness in her leg out of her ordinary symptoms. No dysuria or hematuria. The pain is moderate to severe. Related Data Home Medications ?Medication ?Instructions ?Recorded ?Confirmed PRO AIR 11/12/22 VITAMIN C DAILY 11/12/22 baclofen 10 mg tablet 10 mg PO TID 11/12/22 04/20/23 cholecalciferol (vit D3) 1,000 1 tab PO DAILY 11/12/22 04/20/23 unit-vitamin K2 (MK4) 100 mcg tablet (K2 Plus D3) gabapentin 600 mg tablet 600 mg PO TID 11/12/22 04/20/23 hydrocodone 5 mg-acetaminophen 325 1 tab PO TID 11/12/22 04/20/23 mg tablet krill 1,000 mg-omega-3 170 mg-dha 1 cap PO DAILY 11/12/22 04/20/23 50 mg-epa 80 ki-nvtuqy-gjmjw capsule (krill oil) lisinopril 10 mg tablet 10 mg PO DAILY 11/12/22 04/20/23 meloxicam 15 mg tablet 15 mg PO DAILY 11/12/22 04/20/23 omega 0-vsv-sit-fish oil 1,200 mg cap PO 11/12/22 (144 mg-216 mg) capsule (Fish Oil) omeprazole 20 mg capsule,delayed 20 mg PO DAILY 11/12/22 04/20/23 release umeclidinium 62.5 mcg-vilanterol 1 inh inhalation DAILY 11/12/22 04/20/23 25 mcg/actuation powdr for inhalation (Anoro Ellipta) Previous Rx's ?Medication ?Instructions ?Recorded hydrocodone 7.5 mg-acetaminophen 1 tab PO TID PRN pain #80 tabs 03/01/23 325 mg tablet hydrocodone 7.5 mg-acetaminophen 1 tab PO TID PRN pain #90 tabs 03/30/23 325 mg tablet hydrocodone 7.5 mg-acetaminophen 1 tab PO TID PRN pain #80 tabs 04/02/23 325 mg tablet hydrocodone 7.5 mg-acetaminophen 1 tab PO TID PRN pain #80 tabs 04/13/23 325 mg tablet hydrocodone 7.5 mg-acetaminophen 1 tab PO TID PRN pain #80 tabs 05/20/23 325 mg tablet hydrocodone 7.5 mg-acetaminophen 1 tab PO TID PRN pain #80 tabs 06/17/23 325 mg tablet hydrocodone 7.5 mg-acetaminophen 1 tab PO Q8H PRN pain #90 tabs 07/14/23 325 mg tablet gabapentin 600 mg tablet 600 mg PO TID #90 tabs 08/17/23 hydrocodone 7.5 mg-acetaminophen 1 tab PO TID #90 tabs 08/17/23 325 mg tablet Allergies Allergy/AdvReac Type Severity Reaction Status Date / Time amoxicillin [From Augmentin] Allergy Unknown Verified 08/31/23 08:53 clavulanic acid Allergy Unknown Verified 08/31/23 08:53 [From Augmentin] Penicillins Allergy Unknown Verified 08/31/23 08:53 Opioid HPI Opioid Management Most Recent Opioid Data: Last Pain Scale 8 08/31/23 10:47 Last ED Pain Assessment 08/31/23 10:05 Last MAR Pain Assessment 08/31/23 10:47 Review of Systems ROS Narrative A ten point review of systems is negative except as noted above. [facility] Medical History Surgical History History of lymph node excision ?Z98.890 - Other specified postprocedural states (ICD-10) History of hysterectomy ?Z90.710 - Acquired absence of both cervix and uterus (ICD-10) History of lumbar fusion ?Z98.1 - Arthrodesis status (ICD-10) Exam Narrative Exam Narrative: Nurses note and vital signs reviewed and patient is not hypoxic. General: The patient appears uncomfortable, laying on the examination cart Skin: Warm, dry, no pallor noted. There is no rash noted. Head: Normocephalic, atraumatic Eye: Normal conjunctiva, no drainage Ears, Nose, Mouth, and Throat: oral mucosa is moist. Nares patent. Cardiovascular: Regular Rate and Rhythm Respiratory: Patient is in no distress, no accessory muscle use, lungs are clear to auscultation, no wheezing, rales or rhonchi Back: No bruise rash or erythema present. She has old healed surgical scar present. GI: Soft and Musculoskeletal: The patient has no evidence of calf tenderness, no pitting edema, symmetrical pulses noted bilaterally Neurological: A&O, normal speech Psychiatric: Cooperative Constitutional Vital Signs, click to edit/add: Last Vital Signs Temp 98.6 F 08/31/23 08:53 Pulse 85 08/31/23 08:53 Resp 16 08/31/23 08:53 BP 180/105 H 08/31/23 08:53 Pulse Ox 96 08/31/23 08:53 O2 Del Method Room Air 08/31/23 08:53 Course Vital Signs Vital signs: Vital Signs Temperature 98.6 F 08/31/23 08:53 Pulse Rate 85 08/31/23 08:53 Respiratory Rate 16 08/31/23 08:53 Blood Pressure 180/105 H 08/31/23 08:53 Pulse Oximetry 96 08/31/23 08:53 Oxygen Delivery Method Room Air 08/31/23 08:53 Temperature 98.6 F 08/31/23 08:53 Pulse Rate 85 08/31/23 08:53 Respiratory Rate 16 08/31/23 08:53 Blood Pressure 180/105 H 08/31/23 08:53 Pulse Oximetry 96 08/31/23 08:53 Oxygen Delivery Method Room Air 08/31/23 08:53 MDM - Back Pain/Injury MDM Narrative Medical decision making narrative: Her x-ray showed no acute findings and she is feeling improved. She is able to be discharged home and will follow-up with her pain management doctor. Treatment diagnosis and follow-up were discussed with the patient. Differential Diagnosis Differential diagnosis: Likely lumbar radiculopathy, sciatica and strain of lumbar region Imaging Data Lumbar x-rays: Radiologist's impression: ITS Impressions Lumbar Spine X-Ray 08/31/23 09:01 IMPRESSION: 1. No appreciable acute abnormality. 2. Mild degenerative changes. 3. Mechanical fusion of lower lumbar spine without evidence of hardware failure. Electronically authenticated by: KRISSY NEAL Date: 08/31/2023 10:10 Discharge Plan Discharge Stand Alone Forms: Portal Instructions Chief Complaint: Back Pain/Injury Clinical Impression: Low back pain Patient Disposition: Home, Self-Care Time of Disposition Decision: 11:11 Condition: Good Mode of Transportation: Private Vehicle Prescriptions / Home Meds: No Action hydrocodone-acetaminophen 7.5-325 mg tablet 1 tab PO TID PRN (Reason: pain) Qty: 80 0RF hydrocodone-acetaminophen 7.5-325 mg tablet 1 tab PO TID PRN (Reason: pain) Qty: 90 0RF hydrocodone-acetaminophen 7.5-325 mg tablet 1 tab PO TID PRN (Reason: pain) Qty: 80 0RF Rx Instructions: 1 tab PO BID-TID #80 hydrocodone-acetaminophen 7.5-325 mg tablet 1 tab PO TID PRN (Reason: pain) Qty: 80 0RF gabapentin 600 mg tablet 600 mg PO TID Qty: 90 0RF hydrocodone-acetaminophen 7.5-325 mg tablet 1 tab PO TID Qty: 90 0RF Anoro Ellipta 62.5-25 mcg/actuation blister with device 1 inh inhalation DAILY omega 3-wff-zul-fish oil [Fish Oil] 1,200 (144-216) mg capsule PO gabapentin 600 mg tablet 600 mg PO TID K2 Plus D3 1,000-100 unit-mcg tablet 1 tab PO DAILY krill oil 1,[id number] mg capsule 1 cap PO DAILY meloxicam 15 mg tablet 15 mg PO DAILY PRO AIR baclofen 10 mg tablet 10 mg PO TID hydrocodone-acetaminophen 5-325 mg tablet 1 tab PO TID lisinopril 10 mg tablet 10 mg PO DAILY omeprazole 20 mg capsule,delayed release(DR/EC) 20 mg PO DAILY VITAMIN C DAILY hydrocodone-acetaminophen 7.5-325 mg tablet 1 tab PO TID PRN (Reason: pain) Qty: 80 0RF hydrocodone-acetaminophen 7.5-325 mg tablet 1 tab PO TID PRN (Reason: pain) Qty: 80 0RF Rx Instructions: MUST LAST 30 DAYS hydrocodone-acetaminophen 7.5-325 mg tablet 1 tab PO Q8H PRN (Reason: pain) Qty: 90 0RF Print Language: [place] Instructions: Acute Low Back Pain (ED) Referrals: SHERIN ROTH [Primary Care Provider] - 1 week
--- NOTE | 2023-08-31 09:01 | XR_ITS ---
[facility] [place] [id number] Patient Name: AKASH LIU MRN: [id number] date: 1970 Sex: F Assigned Patient Location: ER Current Patient Location: ED.MAIN Accession/Order Number: [id number] Exam Date: 08/31/2023 09:15 Report Date: 08/31/2023 10:10 At the request of: ROLANDO BRADLEY Procedure: XR lumbar spine 2-3V EXAMINATION: XR lumbar spine 2-3V HISTORY: Atraumatic pain, previous surgery ; low back pain COMPARISON: No relevant comparison available. FINDINGS: BONES: Mild right convex curvature of lumbar spine. Mechanical fusion L4-5-S1 via bilateral pedicle screws and rods. No fracture or spondylolisthesis. Multilevel mild degenerative facet arthropathy. DISC SPACES: No significant disc height reduction. Intervertebral spacers at L4-5 and L5-S1. PARASPINOUS: Negative. No paraspinous abnormality is seen. OTHER: Negative. XR/XR lumbar spine 2-3V IMPRESSION: 1. No appreciable acute abnormality. 2. Mild degenerative changes. 3. Mechanical fusion of lower lumbar spine without evidence of hardware failure. Electronically authenticated by: KRISSY NEAL Date: 08/31/2023 10:10
--- OUTSIDE RECORDS SUMMARY | 2023-08-31 09:05 | XMS_ITS | CCD ---
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 Name Role Phone Roberto Roth Primary Care Provider Justice Cruz Attending Provider DO Roberto Roth Primary Care Provider [phone] MD Hood Rausch Attending Provider [phone] DO Roberto Roth Primary Care Provider [phone] CALVIN Yu Attending Provider MD Paresh Tian Attending Provider Roth, DO Mejia Primary Care Provider CALVIN Yu Attending Provider MD Paresh Tian Attending Provider MD Gnia Guerrero Attending Provider [phone] Gina Guerrero Unavailable SHE ., DR HOOD Hernandez Attending Unavailable RAUSCH ., DR HOOD Hernandez Admitting Unavailable SINGH ., ADA Consulting Unavailable IRA, DR ROBERTO Bhakta Primary Care Unavailable SHE ., DR HOOD Hernandez Attending Unavailable SHE ., DR HOOD Hernandez Admitting Unavailable RAUSCH ., DR HOOD Hernandez Consulting Unavailable IRA, DR ROBERTO Bhakta Primary Care Unavailable SHE ., DR HOOD Hernandez Attending Unavailable RAUSCH ., DR HOOD Hernandez Admitting Unavailable SINGH ., ADA Consulting Unavailable IRA, DR ROBERTO Bhakta Primary Care Unavailable RAUSCH ., DR HOOD Hernandez Attending Unavailable RAUSCH ., DR HOOD Hernandez Admitting Unavailable SINGH ., ADA Consulting Unavailable IRA, DR ROBERTO Bhakta Primary Care Unavailable LAKSHMIPATHY ., SACHINENDOMAR Attending Manjula vailable DR ROBERTO ROTH Primary Care Unavailable LAKSHMIPATHY ., NARJETHRO Admitting Manjula vailable RAUSCH ., DR HOOD Hernandez Attending Unavailable RAUSCH ., DR HOOD Hernandez Admitting Unavailable ROTH, DR ROBERTO Bhakta Primary Care Unavailable RAUSCH ., DR HOOD Hernandez Consulting Unavailable JUNGNATALEE CHILDRESS Consulting Unavailable RAUSCH ., DR HOOD Hernandez Attending Unavailable RAUSCH ., DR HOOD Hernandez Admitting Unavailable ROTH, DR ROBERTO Bhakta Primary Care Unavailable SINGH ., ADA Consulting Unavailable RAUSCH ., DR HOOD Hernandez Consulting Unavailable RAUSCH ., DR HOOD Hernandez Attending Unavailable RAUSCH ., DR HOOD Hernandez Admitting Unavailable ROTH, DR ROBERTO Bhakta Primary Care Unavailable JOELLE BRAXTON Consulting Unava ilable SINGH ., ADA Attending Unavailable SINGH ., ADA Admitting Unavailable ROTH, DR ROBERTO Bhakta Primary Care Unavailable [place], DR DASHA Gomez Consulting Unavailable SINGH ., [...] ., NARENDRANATH Consulting Manjula vailable LAKSHMIPATHY ., NARENDRANATH Attending Manjula vailable DR ROBERTO ROTH Primary Care Unavailable LAKSHMIPATHY ., NARENDRANATH Admitting Manjula vailable LAKSHMIPATHY ., NARENDRANATH Consulting Manjula vailable LAKSHMIPATHY ., NARENDRANATH Attending Manjula vailable IRA, DR ROBERTO Bhakta Primary Care Unavailable Aby Yu Attending Unavailable Roberto Roth Primary Care Unavailable Aby Yu Admitting Unavailable Paresh Tian Admitting Unavailable Paresh Tian Attending Unavailable Roberto Roth Primary [facility] Unavailable Gina Guerrero Admitting Unavailable Gina Guerrero Attending Unavailable Roberto Roth Primary [facility] Unavailable Unavailable Unavailable Unavailable Allergies Allergy Classification Reported Allergen(s) Allergy Type Date of Onset Reaction(s) Facility (6 sources) Amoxicillin; Translations: [amoxicillin] Drug Allergy 0 [facility] (7 sources) Penicillins; Translations: [Penicillins] Propensity to adverse reactions 4 Nausea [facility] (6 sources) clavulanic acid; Translations: [clavulanic acid] Propensity to adverse reactions 0 [facility] (3 sources) Amoxicillin / Clavulanate; Translations: [Augmentin] Drug Allergy 4 Unknown [facility] (2 sources) Azithromycin Drug Allergy diarrhea [facility] turboBOTZ Other (2 sources) Penicillin G Drug Allergy Unknown [facility] turboBOTZ Other Medications Current Medications Medication Drug Class(es) Dates Sig (Normalized) Sig (Original) acetaminophen 500 mg oral tablet (4 sources) Start: 05-31-2020 take 500 mg by mouth every four hours Acetaminophen Active 500 MG PO Q4H 100 May 31, 2020 1:00am [id number] 200 actuat albuterol 0.09 mg/actuat metered dose [...] Active 600 MG PO Three times daily May 31, 2020 1:00am Start: 03-18-2019 End: [...] by mouth three times daily Hydrocodone-Acetami nophen (Loleta) 5-325 mg Tablet Discontinued 1 TAB PO Three times daily March 18, 2019 12:00am May 23, 2020 4:59pm Loleta Active azithromycin 250 mg oral tablet (4 [...] daily Nicotine Discontinued 1 PATCH TRANSDERML Daily May 31, 2020 1:00am Angélica 24th, 2022 5:31pm Sennosides (Senna Lax) 8.6 mg Tablet [...] sources) High risk drug monitoring status; Translations: [roasterman (current) use of opiate analgesic] Episodic Other [...] 08-18-2022 XR hip RT min 2V(w/wo pelvis)* [facility] Main [place] [id number] XRay Report Signed Patient: Kim Hill MR#: [id number] : 1970 Acct:[id number] Age/Sex: 51 / F ADM Date: 08/17/22 Loc: XD Room: Type: [facility] Attending Dr: Gina Guerrero MD Copies to: [...] Tate Alva M.D.08/18/2022 10:01 AM Dictation Location: [place] [address] Transcribed By: [facility] 08/18/22 1001 Dictated By: Tate Alva II, MD 08/18/22 0957 Signed By: 08/18/22 1001 [facility] MRI Lumbar Spine w/o + w/on 07-30-2022 [...] by Justice Lucas on 07/31/2022 0915 Normal [facility] ASTER Antinuclear Antibodieson 07-16-2022 Antinuclear Abs, IFA Positive Critically abnormal . [facility] Comment on above: Result Comment: Nega tive <1:80 Borderline 1:80 Positive >1:80 Performed By: #### A NA, C4, C3, CH50 #### [facility] , #### CRP, CREAT, ADDONUAPLUS, CUU, ESR, CBC #### [facility] [address] [place] [id number] [facility] Note 1 Normal . [facility] Comment on above: Result Comment: For more [...] titers Nucleosomes, Histones Drug-induced SLE Speckled Sm, NEON MOLDER, SCL-70, SLE,MCTD,PSS (diffuse form), SS-A/SS-B Sjogrens Nucleolar SCL-70, PM-1/SCL High titers Scleroderma, PM/DM Centromere Centromere PSS (limited form) w/Crest syndrome variable Nuclear Dot [id number] Primary Biliary Cirrhosis Nuclear GP210, Primary Biliary Cirrhosis Membrane kailyn A,B,C Performed at: [facility] [address] [id number] Web Administrator: Collin Rodriguez PhD, Phone: [phone] Performed By: #### A NA, C4, C3, CH50 #### [facility] , #### CRP, CREAT, ADDONUAPLUS, CUU, ESR, CBC #### [facility] [address] [place] [address] Spindle Apparatus Pattern 1:160 High . [facility] Comment on above: Result Comment: ICAP nomenclature: [id number] Performed By: #### A NA, C4, C3, CH50 #### [facility] , #### CRP, CREAT, ADDONUAPLUS, CUU, ESR, CBC #### [facility] [address] [place] [address] Automated erythrocytes count in urine sediment (number/area)Ordered By: Paresh Tian on 07-16-2022 RBC Auto (Urine sed) [#/Area] 1-2 [HPF] 0-4 [facility] Automated leukocytes count i n urine sediment (number/area)Ordered By: Paresh Tian on 07-16-2022 WBC Auto (Urine sed) [#/Area] 20-49 [HPF] 0-4 [facility] Basophils Auto (Bld) [#/Vol] Ordered By: Paresh Tian on 07-16-2022 Basophils (Bld) [#/Vol] 0.0 10*3/uL 0.0-0.2 [facility] Basophils/100 WBC Auto (Bld) Ordered By: Paresh Tian on 07-16-2022 Basophils/100 WBC (Bld) 0.4 % . [facility] Bilirubin Test strip Ql (U)O rdered By: Paresh Tian on 07-16-2022 Bilirubin Ql (U) Negative Negative [facility] C reactive protein [Mass/vol ume] in Serum or PlasmaOrdered By: Paresh Tian on 07-16-2022 CRP [Mass/Vol] 0.8 mg/dL 0.0-1.0 [facility] C-Reactive Proteinon 023 C-Reactive Protein 0.8 mg/dL Normal 0.0-1.0 [facility] Comment on above: Result Comment: PERF ORMED BY: [place] [address] PATHOLOGIST PST MANAGER PENG POLO M.D. Performed By: #### A NA, C4, C3, CH50 #### [facility] , #### CRP, CREAT, ADDONUAPLUS, CUU, ESR, CBC #### [facility] [address] Color Auto (U)Ordered By: Afia Tian on 07-16-2022 Color (U) Yellow Yellow [facility] Complement C3on 07-16-2022 Complement C3 197 mg/dL High 82-167 [facility] Comment on above: Result Comment: Perf ormed at: - [facility] [address] [id number] Web Administrator: Collin Rodriguez PhD, Phone: [phone] Performed By: #### A NA, C4, C3, CH50 #### [facility] , #### CRP, CREAT, ADDONUAPLUS, CUU, ESR, CBC #### [facility] [address] [place] [address] Complement C4on 07-16-2022 Complement C4 42 mg/dL High 12-38 [facility] Comment on above: Result Comment: PERF ORMED BY: [place] [address] PATHOLOGIST PST MANAGER PENG POLO M.D. Performed By: #### A NA, C4, C3, CH50 #### [facility] , #### CRP, CREAT, ADDONUAPLUS, CUU, ESR, CBC #### [address] Complement Total (CH50)on Complement Total (CH50) >60 Normal >41 [facility] Comment on above: Result Comment: Age Male [...] out of range values. Performed at: - [facility] [id number] Web Administrator: Collin Rodriguez PhD, Phone: [phone] PERFORMED BY: [place] [address] PATHOLOGIST PST MANAGER PENG POLO M.D. Performed By: #### A NA, C4, C3, CH50 #### [facility] , #### CRP, CREAT, ADDONUAPLUS, CUU, ESR, CBC #### [address] Complete Blood Count Auto Di ffon 07-16-2022 Basophils (Bld) [#/Vol] 0.0 10*3/uL Normal 0.0-0.2 [facility] Comment on above: Performed By: #### A NA, C4, C3, CH50 #### [facility] , #### CRP, CREAT, ADDONUAPLUS, CUU, ESR, CBC #### [address] Basophils/100 WBC (Bld) 0.4 % Normal . [facility] Comment on above: Performed By: #### A NA, C4, C3, CH50 #### [facility] , #### CRP, CREAT, ADDONUAPLUS, CUU, ESR, CBC #### [address] Eosinophils (Bld) [#/Vol] 0.1 10*3/uL Normal 0.0-0.45 [facility] Comment on above: Performed By: #### A NA, C4, C3, CH50 #### [facility] , #### CRP, CREAT, ADDONUAPLUS, CUU, ESR, CBC #### [address] Eosinophils/100 WBC (Bld) 1.1 % Normal . [facility] Comment on above: Performed By: #### A NA, C4, C3, CH50 #### [facility] , #### CRP, CREAT, ADDONUAPLUS, CUU, ESR, CBC #### [address] Erythrocyte distribution width (RBC) [Ratio] 13.0 % Normal 11.9-15.3 [facility] Comment on above: Performed By: #### A NA, C4, C3, CH50 #### [facility] , #### CRP, CREAT, ADDONUAPLUS, CUU, ESR, CBC #### [address] Hematocrit (Bld) [Volume fraction] 45.3 % Normal 34.0-46.4 [facility] Comment on above: Performed By: #### A NA, C4, C3, CH50 #### [facility] , #### CRP, CREAT, ADDONUAPLUS, CUU, ESR, CBC #### [address] Hemoglobin (Bld) [Mass/Vol] 15.2 g/dL Normal 11.8-15.4 [facility] Comment on above: Performed By: #### A NA, C4, C3, CH50 #### [facility] , #### CRP, CREAT, ADDONUAPLUS, CUU, ESR, CBC #### [address] Lymphocytes (Bld) [#/Vol] 3.7 10*3/uL Normal 1.00-4.8 [facility] Comment on above: Performed By: #### A NA, C4, C3, CH50 #### [facility] , #### CRP, CREAT, ADDONUAPLUS, CUU, ESR, CBC #### [address] Lymphocytes/100 WBC (Bld) 35.0 % Normal . [facility] Comment on above: Performed By: #### A NA, C4, C3, CH50 #### [facility] , #### CRP, CREAT, ADDONUAPLUS, CUU, ESR, CBC #### [address] MCH (RBC) [Entitic mass] 33.8 pg Normal 24.7-34.3 [facility] Comment on above: Performed By: #### A NA, C4, C3, CH50 #### [facility] , #### CRP, CREAT, ADDONUAPLUS, CUU, ESR, CBC #### [address] MCV (RBC) [Entitic vol] 100.6 fL High 80-100 [facility] Comment on above: Performed By: #### A NA, C4, C3, CH50 #### [facility] , #### CRP, CREAT, ADDONUAPLUS, CUU, ESR, CBC #### [address] Mean Corpuscular HGB Conc 33.6 g/dL Normal 32.0-35.0 [facility] Comment on above: Performed By: #### A NA, C4, C3, CH50 #### [facility] , #### CRP, CREAT, ADDONUAPLUS, CUU, ESR, CBC #### [address] Monocytes (Bld) [#/Vol] 0.7 10*3/uL Normal 0.0-0.8 [facility] Comment on above: Performed By: #### A NA, C4, C3, CH50 #### [facility] , #### CRP, CREAT, ADDONUAPLUS, CUU, ESR, CBC #### [place] [address] [place] Monocytes/100 WBC (Bld) 6.8 % Normal . [facility] Comment on above: Performed By: #### A NA, C4, C3, CH50 #### [facility] , #### CRP, CREAT, ADDONUAPLUS, CUU, ESR, CBC #### [place] [address] [place] Neutrophils (Bld) [#/Vol] 5.9 10*3/uL Normal 1.8-7.7 [facility] Comment on above: Performed By: #### A NA, C4, C3, CH50 #### [facility] , #### CRP, CREAT, ADDONUAPLUS, CUU, ESR, CBC #### [place] [address] [place] Neutrophils/100 WBC (Bld) 56.7 % Normal . [facility] Comment on above: Performed By: #### A NA, C4, C3, CH50 #### [facility] , #### CRP, CREAT, ADDONUAPLUS, CUU, ESR, CBC #### [address] NRBC% 0.1 /100{WBC} Normal 0-0.5 [facility] Comment on above: Performed By: #### A NA, C4, C3, CH50 #### [facility] , #### CRP, CREAT, ADDONUAPLUS, CUU, ESR, CBC #### [address] Platelet mean volume (Bld) [Entitic vol] 8.4 fL Normal 6.3-10.7 [facility] Comment on above: Performed By: #### A NA, C4, C3, CH50 #### [facility] , #### CRP, CREAT, ADDONUAPLUS, CUU, ESR, CBC #### [address] Platelets (Bld) [#/Vol] 242 10*3/uL Normal 150-450 [facility] Comment on above: Performed By: #### A NA, C4, C3, CH50 #### [facility] , #### CRP, CREAT, ADDONUAPLUS, CUU, ESR, CBC #### [address] RBC (Bld) [#/Vol] 4.50 10*6/uL Normal 3.60-5.00 [facility] Comment on above: Performed By: #### A NA, C4, C3, CH50 #### [facility] , #### CRP, CREAT, ADDONUAPLUS, CUU, ESR, CBC #### [address] WBC (Bld) [#/Vol] 10.4 10*3/uL Normal 3.8-11.6 [facility] Comment on above: Performed By: #### A NA, C4, C3, CH50 #### [facility] , #### CRP, CREAT, ADDONUAPLUS, CUU, ESR, CBC #### [address] Creatinineon 07-16-2022 Creatinine [Mass/Vol] 0.74 mg/dL Normal 0.44-1.03 [facility] Comment on above: Performed By: #### A NA, C4, C3, CH50 #### [facility] , #### CRP, CREAT, ADDONUAPLUS, CUU, ESR, CBC #### [address] Estimated GFR ( Sharon > 60 Normal [facility] Comment on above: Result Comment: GFR estimated reference range: According to KDOQI guidelines, <60 ml/min/1.73m2 is sufficient to diagnose a patient with chronic kidney disease. Performed By: #### A NA, C4, C3, CH50 #### [facility] , #### CRP, CREAT, ADDONUAPLUS, CUU, ESR, CBC #### [address] Estimated GFR (Non- Am > 60 Normal [facility] Comment on above: Performed By: #### A NA, C4, C3, CH50 #### [facility] , #### CRP, CREAT, ADDONUAPLUS, CUU, ESR, CBC #### [address] Creatinine and Glomerular fi ltration rate.predicted panel (S/P/Bld)Ordered By: Paresh Tian on 07-16-2022 Creatinine [Mass/Vol] 0.74 mg/dL 0.44-1.03 [facility] Dipstick and Microscopicon 0 07-16-2022 Appearance (U) Clear Normal Clear [facility] Comment on above: Order Comment: Name Collection Type:: Clean-Voided Midstream Performed By: #### A NA, C4, C3, CH50 #### [facility] , #### CRP, CREAT, ADDONUAPLUS, CUU, ESR, CBC #### [facility] [address] [place] [address] Bacteria,Urine 4+ High None Seen [facility] Comment on above: Order Comment: Name Collection Type:: Clean-Voided Midstream Performed By: #### A NA, C4, C3, CH50 #### [facility] , #### CRP, CREAT, ADDONUAPLUS, CUU, ESR, CBC #### [facility] [address] [place] [address] Bilirubin,Urine Negative Normal Negative [facility] Comment on above: Order Comment: Name Collection Type:: Clean-Voided Midstream Performed By: #### A NA, C4, C3, CH50 #### [facility] , #### CRP, CREAT, ADDONUAPLUS, CUU, ESR, CBC #### [facility] [address] [place] [address] [place] Color (U) Yellow Normal Yellow [facility] Comment on above: Order Comment: Name Collection Type:: Clean-Voided Midstream Performed By: #### A NA, C4, C3, CH50 #### [facility] , #### CRP, CREAT, ADDONUAPLUS, CUU, ESR, CBC #### [facility] [address] [place] [address] [place] Glucose Ql (U) Normal Normal Normal [facility] Comment on above: Order Comment: Name Collection Type:: Clean-Voided Midstream Performed By: #### A NA, C4, C3, CH50 #### [facility] , #### CRP, CREAT, ADDONUAPLUS, CUU, ESR, CBC #### [facility] [address] [place] [address] Hyaline Casts,Urine 0-8 Normal 0-8 [facility] Comment on above: Order Comment: Name Collection Type:: Clean-Voided Midstream Result Comment: PERF ORMED BY: [place] [address] PATHOLOGIST PST MANAGER PENG POLO M.D. Performed By: #### A NA, C4, C3, CH50 #### [facility] , #### CRP, CREAT, ADDONUAPLUS, CUU, ESR, CBC #### [address] Ketones Ql (U) Negative Normal Negative [facility] Comment on above: Order Comment: Name Collection Type:: Clean-Voided Midstream Performed By: #### A NA, C4, C3, CH50 #### [facility] , #### CRP, CREAT, ADDONUAPLUS, CUU, ESR, CBC #### [address] Leukocyte esterase Test strip Ql (U) 3+ High Negative [facility] Comment on above: Order Comment: Name Collection Type:: Clean-Voided Midstream Performed By: #### A NA, C4, C3, CH50 #### [facility] , #### CRP, CREAT, ADDONUAPLUS, CUU, ESR, CBC #### [facility] [address] [place] [address] Nitrite,Urine Negative Normal Negative [facility] Comment on above: Order Comment: Name Collection Type:: Clean-Voided Midstream Performed By: #### A NA, C4, C3, CH50 #### [facility] , #### CRP, CREAT, ADDONUAPLUS, CUU, ESR, CBC #### [address] Occult Blood,Urine Negative Normal Negative [facility] Comment on above: Order Comment: Name Collection Type:: Clean-Voided Midstream Performed By: #### A NA, C4, C3, CH50 #### [facility] , #### CRP, CREAT, ADDONUAPLUS, CUU, ESR, CBC #### [address] pH (U) 6.5 [pH] Normal 5.0-9.0 [facility] Comment on above: Order Comment: Name Collection Type:: Clean-Voided Midstream Performed By: #### A NA, C4, C3, CH50 #### [facility] , #### CRP, CREAT, ADDONUAPLUS, CUU, ESR, CBC #### [address] Protein,Urine Negative Normal Negative [facility] Comment on above: Order Comment: Name Collection Type:: Clean-Voided Midstream Performed By: #### A NA, C4, C3, CH50 #### [facility] , #### CRP, CREAT, ADDONUAPLUS, CUU, ESR, CBC #### [address] RBC,Urine 1-2 Normal 0-4 [facility] Comment on above: Order Comment: Name Collection Type:: Clean-Voided Midstream Performed By: #### A NA, C4, C3, CH50 #### [facility] , #### CRP, CREAT, ADDONUAPLUS, CUU, ESR, CBC #### [address] Specificy [place],Urine 1.018 Normal 1.00 1-1.03 0 [facility] Comment on above: Order Comment: Name Collection Type:: Clean-Voided Midstream Performed By: #### A NA, C4, C3, CH50 #### [facility] , #### CRP, CREAT, ADDONUAPLUS, CUU, ESR, CBC #### [address] Squamous Epithelial Cell,Urine 0-1 Normal 0-2 [facility] Comment on above: Order Comment: Name Collection Type:: Clean-Voided Midstream Performed By: #### A NA, C4, C3, CH50 #### [facility] , #### CRP, CREAT, ADDONUAPLUS, CUU, ESR, CBC #### [facility] [address] [place] [address] Urobilinogen,Urine Normal Normal Normal [facility] Comment on above: Order Comment: Name Collection Type:: Clean-Voided Midstream Performed By: #### A NA, C4, C3, CH50 #### [facility] , #### CRP, CREAT, ADDONUAPLUS, CUU, ESR, CBC #### [facility] [address] [place] [address] WBC,Urine 20-49 High 0-4 [facility] Comment on above: Order Comment: Name Collection Type:: Clean-Voided Midstream Performed By: #### A NA, C4, C3, CH50 #### [facility] , #### CRP, CREAT, ADDONUAPLUS, CUU, ESR, CBC #### [facility] [address] [place] [address] Eosinophils Auto (Bld) [#/Vo l]Ordered By: Paresh Tian on 07-16-2022 Eosinophils (Bld) [#/Vol] 0.1 10*3/uL 0.0-0.45 [facility] Eosinophils/100 WBC Auto (Bl d)Ordered By: Paresh Tian on 07-16-2022 Eosinophils/100 WBC (Bld) 1.1 % . [facility] Erythrocyte Sedimentation Ra declan 07-16-2022 ESR (Bld) [Velocity] 45 mm/h High 0-29 [facility] Comment on above: Result Comment: PERF ORMED BY: [place] [address] PATHOLOGIST PST MANAGER PENG POLO M.D. Performed By: #### A NA, C4, C3, CH50 #### [facility] , #### CRP, CREAT, ADDONUAPLUS, CUU, ESR, CBC #### [facility] [address] Erythrocyte distribution wid th Auto (RBC) [Ratio]Ordered By: Paresh Tian on 07-16-2022 Erythrocyte distribution width (RBC) [Ratio] 13.0 % 11.9-15.3 [facility] Erythrocyte sedimentation ra te by Photometric methodOrdered By: Paresh Tian on 07-16-2022 ESR Photometric method (Bld) [Velocity] 45 mm/hr 0-29 [facility] Estimated glomerular filtrat ion rate (GFR) non- AmericanOrdered By: Paresh Tian on 07-16-2022 GFR/1.73 sq M.predicted among non-blacks MDRD (S/P/Bld) [Vol rate/Area] > 60 mL/Min [facility] Hematocrit Auto (Bld) [Volum e fraction]Ordered By: Paresh Tian on 07-16-2022 Hematocrit (Bld) [Volume fraction] 45.3 % 34.0-46.4 [facility] Hemoglobin [Mass/volume] in BloodOrdered By: Paresh Tian on 07-16-2022 Hemoglobin (Bld) [Mass/Vol] 15.2 g/dL 11.8-15.4 [facility] Ketones Auto test strip (U) [Mass/Vol]Ordered By: Paresh Tian on 07-16-2022 Ketones (U) [Mass/Vol] Negative Negative [facility] - UrinalysisOrder ed By: Paresh Tian on 07-16-2022 Hyaline casts LM Ql (Urine sed) 0-8 [LPF] 0-8 [facility] Leukocytes [#/volume] correc scot for nucleated erythrocytes in Blood by Automated counOrdered By: Paresh Tian on 07-16-2022 WBC corrected for nucl RBC Auto (Bld) [#/Vol] 10.4 10*3/uL 3.8-11.6 [facility] Lymphocytes Auto (Bld) [#/Vo l]Ordered By: Paresh Tian on 07-16-2022 Lymphocytes (Bld) [#/Vol] 3.7 10*3/uL 1.00-4.8 [facility] Lymphocytes/100 WBC Auto (Bl d)Ordered By: Paresh Tian on 07-16-2022 Lymphocytes/100 WBC (Bld) 35.0 % . [facility] MCH Auto (RBC) [Entitic mass ]Ordered By: Paresh Tian on 07-16-2022 MCH (RBC) [Entitic mass] 33.8 pg 24.7-34.3 [facility] MCHC Auto (RBC) [Mass/Vol]Or dered By: Paresh Tian on 07-16-2022 MCHC (RBC) [Mass/Vol] 33.6 g/dL 32.0-35.0 [facility] MCV Auto (RBC) [Entitic vol] Ordered By: Paresh Tian on 07-16-2022 MCV (RBC) [Entitic vol] 100.6 fL 80-100 [facility] Mitotic spindle apparatus Ab [Titer] in Serum or Plasma by ImmunofluorescenceOrdered By: Paresh Tian on 07-16-2022 Mitotic spindle apparatus Ab IF [Titer] 1:160 . [facility] Comment on above: ICAP nomenclature: A [id number] Monocytes Auto (Bld) [#/Vol] Ordered By: Paresh Tian on 07-16-2022 Monocytes (Bld) [#/Vol] 0.7 10*3/uL 0.0-0.8 [facility] Monocytes/100 WBC Auto (Bld) Ordered By: Paresh Tian on 07-16-2022 Monocytes/100 WBC (Bld) 6.8 % . [facility] Neutrophils Auto (Bld) [#/Vo l]Ordered By: Paresh Tian on 07-16-2022 Neutrophils (Bld) [#/Vol] 5.9 10*3/uL 1.8-7.7 [facility] Neutrophils/100 WBC Auto (Bl d)Ordered By: Paresh Tian on 07-16-2022 Neutrophils/100 WBC (Bld) 56.7 % . [facility] Nitrite Test strip Ql (U)Ord ered By: Paresh Tian on 07-16-2022 Nitrite Ql (U) Negative Negative [facility] No Panel InformationOrdered By: Paresh Tian on 07-16-2022 Anti-Nuclear Antibody Comment 2 See comment . [facility] Comment on above: For more information about Hep-2 cell patterns [employer], the official website for the [employer] on Antinuclear Antibody (ASTER) Patterns (ICAP). --------A positive ASTER result may occur in healthy individuals (lowtiter) or be associated with a variety of diseases. Seeinterpretation chart which is not all inclusive:Pattern Antigen Detected Suggested Disease Association Homogeneous DNA(ds,ss), SLE - High titers Nucleosomes, Histones Drug-induced SLE Speckled Sm, NEON MOLDER, SCL-70, SLE,MCTD,PSS (diffuse form), SS-A/SS-B Sjogrens Nucleolar SCL-70, PM-1/SCL High titers Scleroderma, PM/DM Centromere Centromere PSS (limited form) w/Crest syndrome variable Nuclear Dot Sp100,y62-piofit Primary Biliary Cirrhosis Nuclear GP210, Primary Biliary CirrhosisMembrane kailyn A,B,C Performed at: [facility] [id number] [place], [place] [id number] Director: Collin Rodriguez PhD, Phone: [phone] Estimated GFR () > 60 mL/Min [facility] Comment on above: GFR estimated refere nce range: According to KDOQI guidelines, <60 ml/min/1.73m2 is sufficient to diagnose a patient with chronic kidney disease. Pharmacy Creatinine Clearance (Chem N/A [facility] Total Complement (CH50) >60 U/mL >41 [facility] Comment on above: Age Male Female 1 [...] to determine out of range values.Performed at: [id number] [place], [place] [id number] Director: Collin Rodriguez PhD, Phone: [phone] Nucleated erythrocytes [Pres ence] in Blood by Automated countOrdered By: Paresh Tian on 07-16-2022 Nucleated RBC Auto Ql (Bld) 0.1 /100{WBC} 0-0.5 [facility] Platelet mean volume Auto (B ld) [Entitic vol]Ordered By: Paresh Tian on 07-16-2022 Platelet mean volume (Bld) [Entitic vol] 8.4 fL 6.3-10.7 [facility] Platelets Auto (Bld) [#/Vol] Ordered By: Paresh Tian on 07-16-2022 Platelets (Bld) [#/Vol] 242 10*3/uL 150-450 [facility] Protein Auto test strip (U) [Mass/Vol]Ordered By: Paresh Tian on 07-16-2022 Protein (U) [Mass/Vol] Negative Negative [facility] RBC Auto (Bld) [#/Vol]Ordere d By: Paresh Tian on 07-16-2022 RBC (Bld) [#/Vol] 4.50 10*6/uL 3.60-5.00 [facility] Serum homogeneous pattern an tinuclear antibody (ASTER) titerOrdered By: Paresh Tian on 07-16-2022 Homogenous nuclear Ab pattern (S) [Titer] N/A [facility] Serum nuclear antibody titer Ordered By: Paresh Tian on 07-16-2022 Nuclear Ab (S) [Titer] Positive . [facility] Comment on above: Negative <1:80 Borde rline 1:80 Positive >1:80 Serum or plasma complement C 3 measurement (mass/volume)Ordered By: Paresh Tian on 07-16-2022 Complement C3 [Mass/Vol] 197 mg/dL 82-167 [facility] Comment on above: Performed at: - [facility] [address] [id number] Director: Collin Rodriguez PhD, Phone: [phone] Serum or plasma complement C 4 measurement (mass/volume)Ordered By: Paresh Tian on 07-16-2022 Complement C4 [Mass/Vol] 42 mg/dL 12-38 [facility] Specific gravity Auto test s trip (U) [Rel density]Ordered By: Paresh Tian on 07-16-2022 Specific gravity (U) [Rel density] 1.018 1.001-1.03 0 [facility] Squamous epithelial cells de tection in urine sediment by light microscopyOrdered By: Paresh Tian on 07-16-2022 Epithelial cells.squamous LM Ql (Urine sed) 0-1 [HPF] 0-2 [facility] Urine Cultureon 07-16-2022 Bacteria identified Cx Nom (U) ORGANISM: Escherichia coli (O:ESCCOL) [place] Count >100,000 Aerobic TARA Charge (NMIC56) -- [...] RESISTANT TO ALL B-LACTAM DRUGS. PERFORMED BY: [facility] [place] [address] PATHOLOGIST PST MANAGER PENG POLO M.D. Normal [facility] Comment on above: Performed By: #### A NA, C4, C3, CH50 #### [facility] , #### CRP, CREAT, ADDONUAPLUS, CUU, ESR, CBC #### [facility] [address] [place] [address] [place] Urine bacteria detection by automated methodOrdered By: Paresh Tian on 07-16-2022 Bacteria Auto Ql (U) 4+ None Seen [facility] Urine clarity by refractomet ry automatedOrdered By: Paresh Tian on 07-16-2022 Clarity Refractometry automated (U) Clear Clear [facility] Urine culture routineOrdered By: Paresh Tian on 07-16-2022 Bacteria identified Cx Nom (U) Escherichia coli [facility] Urine glucose measurement by automated test strip (mass/volume)Ordered By: Paresh Tian on 07-16-2022 Glucose Auto test strip (U) [Mass/Vol] Normal mg/dL Normal [facility] Urine hemoglobin detection b y automated test stripOrdered By: Paresh Tian on 07-16-2022 Hemoglobin Auto test strip Ql (U) Negative Negative [facility] Urine leukocyte esterase det ection by automated test stripOrdered By: Paresh Tian on 07-16-2022 Leukocyte esterase Auto test strip Ql (U) 3+ Negative [facility] Urobilinogen Auto test strip (U) [Mass/Vol]Ordered By: Paresh Tian on 07-16-2022 Urobilinogen (U) [Mass/Vol] Normal mg/dL Normal [facility] WBC Auto (Bld) [#/Vol]Ordere d By: Paresh Tian on 07-16-2022 WBC (Bld) [#/Vol] 10.4 10*3/uL 3.8-11.6 [facility] pH Auto test strip (U)Ordere d By: Paresh Tian on 07-16-2022 pH (U) 6.5 [pH] 5.0-9.0 [facility] XR lumbar spine 6V w bending on 07-03-2022 XR lumbar spine 6V w bending [facility] [address] [place] [id number] XRay Report Signed Patient: Kim Hill MR#: [id number] : [id number] Acct:[id number] Age/Sex: 51 / F ADM Date: 07/03/22 Loc: XD Room: Type: [facility] Attending Dr: Aby SIMPSON Copies to: CALVIN [...] COMPLICATION. Impression dictated by: Gary Gifford Jr., D.OPancho07/03/2022 3:59 PM Dictation Location: [place] [address] Transcribed By: [facility] 07/03/22 1559 Dictated By: Gary Gifford Jr, DO 07/03/22 1557 Signed By: 07/03/22 1559 [facility] XR HIPS ZEINA 3_4V WO [...] DASHA KHAN Date: 2022-05-15 07:49 Normal [facility]on SARS-CoV-2 (COVID-19) RNA AMBERLY+probe Ql (Unsp spec) Not detected Normal NOT DETECTED [facility] Comment on above: Result Comment: This test is not yet approved or cleared by the [place] FDA. When there are no FDA-approved or cleared tests available, and other criteria are met, FDA can make tests available under an emergency access mechanism called an Emergency Use Authorization (EUA). The EUA for this test is supported by the [place] of Health and Human Service's (HHS's) declaration [...] consistent with SARS-CoV-2. Performed By: #### [facility] #### [facility] [address] [place] [address] Dr. Narendra Jacobsen COVID-19 Positive/NegativeOr dered By: Baljinder Rausch on 01-31-2022 SARS-CoV-2 (COVID-19) N gene AMBERLY+probe Ql (Resp) Negative Negative [facility] Comment on above: Testing for SARS-CoV -2 by RT-PCR This test was developed and its performance characteristics determined by [employer] (BD) and validated at the [facility]. This test has not been FDA cleared [...] COVID-19 Positive/Negativeon 05-20-2020 COVID-19 Positive/Negative Negative Negative [facility] Comment on above: Testing for SARS-CoV -2 by RT-PCRThis test was developed and its performance characteristics determined by [employer] (appiris) and validated at the [facility]. This test has not been FDA cleared [...] Otheron 05-20-2020 Coronavirus 2019 PCR Interp N/A [facility] Automated basophil %on 05-14 Basophils/100 WBC (Bld) 0.5 % F [facility] Automated basophil counton 1 07-15-2019 Basophils (Bld) [#/Vol] 0.0 10*3/uL 0.0-0.2 [facility] Automated blood lymphocyte c ount (number/volume)on 05-14-2020 Lymphocytes (Bld) [#/Vol] 2.8 10*3/uL 1.00-4.8 [facility] Automated blood lymphocyte c ount as percentage of total leukocyteson 05-14-2020 Lymphocytes/100 WBC (Bld) 35.0 % [facility] Automated blood monocyte cou nton 05-14-2020 Monocytes (Bld) [#/Vol] 0.6 10*3/uL 0.0-0.8 [facility] Automated blood platelet cou nt (count/volume)on 05-14-2020 Platelets (Bld) [#/Vol] 225 10*3/uL 150-450 [facility] Automated blood platelet jose n volume measurementon 05-14-2020 Platelet mean volume (Bld) [Entitic vol] 8.2 fL 6.3-10.7 [facility] Automated eosinophil %on Eosinophils/100 WBC (Bld) 1.5 % [facility] Automated eosinophil counton 05-14-2020 Eosinophils (Bld) [#/Vol] 0.1 10*3/uL 0.0-0.45 [facility] Automated erythrocyte distri bution width ratioon 05-14-2020 Erythrocyte distribution width (RBC) [Ratio] 12.3 % 11.9-15.3 [facility] Automated erythrocyte mean c orpuscular hemoglobin (mass per erythrocyte)on 05-14-2020 MCH (RBC) [Entitic mass] 35.2 pg 24.7-34.3 [facility] Automated erythrocyte mean c orpuscular hemoglobin concentration measurement (mass/volon 05-14-2020 MCHC (RBC) [Mass/Vol] 34.2 g/dL 32.0-35.0 [facility] Automated erythrocyte mean c orpuscular volumeon 05-14-2020 MCV (RBC) [Entitic vol] 102.9 fL 80-100 [facility] Automated monocyte %on 05-14 Monocytes/100 WBC (Bld) 7.0 % [facility] Automated neutrophil %on Neutrophils/100 WBC (Bld) 56.0 % [facility] Blood erythrocytes automated count (number/volume)on 05-14-2020 RBC (Bld) [#/Vol] 4.08 10*6/uL 3.60-5.00 [facility] Blood hemoglobin measurement (mass/volume)on 05-14-2020 Hemoglobin (Bld) [Mass/Vol] 14.3 g/dL 11.8-15.4 [facility] Blood leukocytes automated c ount (number/volume)on 05-14-2020 WBC (Bld) [#/Vol] 7.9 10*3/uL 4.5-11.0 [facility] Blood neutrophil count by au tomated method (number/volume)on 05-14-2020 Neutrophils (Bld) [#/Vol] 4.4 10*3/uL 1.8-7.7 [facility] Estimated glomerular filtrat ion rate (GFR) non- Americanon 05-14-2020 GFR/1.73 sq M predicted among non-blacks MDRD (S/P/Bld) [Vol rate/Area] mL/min/{1.73_m2} [facility] Hematocrit [Volume Fraction] of Blood by Automated counton 05-14-2020 Hematocrit (Bld) [Volume fraction] 41.9 % 34.0-46.4 [facility] Otheron 05-14-2020 GFR/1.73 sq M.predicted MDRD (S/P/Bld) [Vol rate/Area] mL/min/{1.73_m2} [facility] Comment on above: GFR estimated refere nce range: According to KDOQI guidelines, <60 ml/min/1.73m2 is sufficient to diagnose a patient with chronic kidney disease. Nucleated RBC/100 WBC (Bld) [Ratio] 0.1 % 0-0.5 [facility] Pharmacy Creatinine Clearance (Chem N/A [facility] Serum or plasma calcium octavio urement (mass/volume)on 05-14-2020 Calcium [Mass/Vol] 10.1 mg/dL 8.2-10.2 [facility] Serum or plasma chloride jose surement (moles/volume)on 05-14-2020 Chloride [Moles/Vol] 101 mmol/L 95-114 [facility] Serum or plasma creatinine m easurement with calculation of estimated glomerular filtron 05-14-2020 Creatinine [Mass/Vol] 0.60 mg/dL 0.44-1.03 [facility] Serum or plasma glucose octavio urement (mass/volume)on 05-14-2020 Glucose [Mass/Vol] 94 mg/dL 70-100 [facility] Comment on above: ADA recommended refe rence rangeRandom Glucose Reference Range is dependent on time and content of last meal. Glucose of more than 200 mg/dL in a nonstressed, ambulatory subject supports the diagnosis of Diabetes Mellitus. Serum or plasma potassium me asurement (moles/volume)on 05-14-2020 Potassium [Moles/Vol] 4.3 mmol/L 3.5-5.1 [facility] Serum or plasma sodium measu rement (moles/volume)on 05-14-2020 Sodium [Moles/Vol] 140 mmol/L 136-146 [facility] Serum or plasma total carbon dioxide measurement (moles/volume)on 05-14-2020 CO2 [Moles/Vol] 27.2 mmol/L 22.0-30.0 [facility] Serum or plasma urea nitroge n measurement (mass/volume)on 05-14-2020 Urea nitrogen [Mass/Vol] 7 mg/dL 9- [facility] Vital Signs Date Time Vital Sign Value Performing Clinician Facility 08-17-2022 16:00-0400 Body height 160.02 cm Gina Blades Other [facility] Other 08-17-2022 16:00-0400 Body mass index (BMI) [Ratio] 40.56 kg/m2 Gina Blades Other [facility] Other 08-17-2022 16:00-0400 Body weight 103.87 kg Gina Blades Other [facility] Other 08-17-2022 16:00-0400 Diastolic blood pressure 82 mm[Hg] Gina Blades Other [facility] Other 08-17-2022 16:00-0400 Systolic blood pressure 126 mm[Hg] Gina Blades Other [facility] Other Encounters Encounter Date Encounter Type Care Provider Facility Start: 10-27-2022 ambulatory NARENDRANATH LAKSHMIPATHY . Facility:[facility] Start: 10-13-2022 End: 10-13-2022 ambulatory NARENDRANATH LAKSHMIPATHY . Facility:[facility] Start: 10-06-2022 End: 10-07-2022 ambulatory NARENDRANATH LAKSHMIPATHY . Facility:[facility] Start: 09-08-2022 End: 09-08-2022 ambulatory Gina Blades Other [facility] Other Start: 09-08-2022 Telephone encounter Gina Tobiass F PG [facility] Neurosurgery Start: 09-01-2022 End: 09-02-2022 ambulatory NARENDRANATH LAKSHMIPATHY . Facility: Start: 08-17-2022 End: 08-17-2022 ambulatory Gina Guerrero Facility:[facility] Start: 08-17-2022 End: 08-17-2022 Patient encounter procedure DO Roberto Roth Work Phone: [facility] [address] Work Phone: Start: 08-17-2022 End: 08-17-2022 ambulatory DO Roberto Roth Work Phone: [facility] Work Phone: Start: 08-17-2022 Office outpatient ne w 45 minutes Gina Blades FPG [facility] Neurosurgery Start: 07-16-2022 End: 07-16-2022 ambulatory Paresh Haladay Facility:[facility] Start: 07-16-2022 End: 07-17-2022 ambulatory DO Roberto Roth Work Phone: [facility] Work Phone: Start: 07-16-2022 End: 07-16-2022 Patient encounter procedure DO Roberto Roth Work Phone: [facility] [address] Work Phone: Start: 07-03-2022 End: 07-03-2022 ambulatory Aby Eisenstein Facility:[facility] Start: 07-03-2022 End: 07-03-2022 ambulatory DO Roberto Roth Work Phone: [facility] Work Phone: Start: 07-03-2022 End: 07-03-2022 Patient encounter procedure DO Roberto Roth Work Phone: [facility] [address] Work Phone: Start: 06-23-2022 End: 06-23-[address] HOOD RAUSCH . Facility:[facility] Start: 05-29-2022 End: 05-30-[address] HOOD RAUSCH . Facility:[facility] Start: 05-14-2022 End: 05-15-2022 ambulatory ADA SINGH . Facility:[facility] Start: 03-12-2022 End: 03-13-[address] HOOD RAUSCH . Facility:[facility] Start: 02-13-2022 Encounter for preprocedural laboratory examination DR HOOD RAUSCH . [facility] Start: 02-10-2022 End: 02-10-[address] HOOD RAUSCH . Facility:[facility] Start: 02-06-2022 End: 02-07-[address] HOOD RAUSCH . Facility:[facility] Start: 02-06-2022 End: 02-07-2022 Encounter for preprocedural laboratory examination DR HOOD RAUSCH . Facility:[facility] Start: 02-03-2022 End: 02-03-[address] HOOD RAUSCH . Facility:[facility] Start: 01-31-2022 End: 01-31-2022 Patient encounter procedure DO Roberto Roth Work Phone: [facility] COVID Testing Start: 01-16-[address] HOOD RAUSCH . Faci lity:[facility] Start: 01-07-2022 End: 01-08-[address] HOOD RAUSCH . Facility:[facility] Start: 05-20-2020 End: 05-20-2020 Patient encounter procedure Roberto Orth -Pre-Surgical Testing Start: 05-14-2020 End: 05-14-2020 Patient encounter procedure Roberto Roth -Pre-Surgical Testing Start: 04-26-2020 End: 04-26-2020 Patient encounter procedure Roberto Roth -XRay [facility] Procedures Date Procedure Procedure Detail Performing Clinician Start: 07-16-2022 Urine culture DO Roberto Mary eric Work Phone: Start: 07-03-2022 X-ray of lumbar spin e, six views including bending views DO Roberto Roth Work Phone: Start: 04-26-2020 X-ray of lumbar spin e, four views Roberto Roth Plan of Treatment Date Care Activity Detail Author Start: 08-17-2022 Plain X-ray of right hip XR hi p RT min 2V(w/wo pelvis)* [facility] Start: 08-17-2022 XR Hip - right 2 Views [facility] Start: 07-16-2022 Bacteria identified in Urine by Culture [facility] Start: 07-16-2022 Hemolytic complement CH50 level [facility] Start: 07-16-2022 [facility] Complement C3 [Mass/volume] in Serum or Plasma [facility] Complement C4 [Mass/volume] in Serum or Plasma [facility] Homogenous nuclear A b pattern [Titer] in Serum [facility] Nuclear Ab [Titer] i n Serum [facility] Immunizations Immunization Date Immunization Notes Care Provider Fa cility 11-09-2020 COVID-19 mRNA-1273 (Moderna) DO Roberto Roth Work Phone: [facility] 10-12-2020 COVID-19 mRNA-1273 (Moderna) DO Roberto Roth Work Phone: [facility] 05-23-2020 influenza, injectabl e, quadrivalent, preservative free DO Roberto Roth Work Phone: [facility] Payers Date Payer Category Payer Self-pay [id number] 1970 Unknown [id number] 2.16.84 [id number] 1970 Unknown [id number] .16.84 0.1.467529.3.579.2.59 1970 Unknown [id number] .16.84 0.1.801729.3.579.2.593 1970 Unknown [id number] .16.84 0.1.504536.3.579.2.593 1968 Unknown [id number] .16.84 0.1.462420.3.579.2.593 1968 Unknown [id number] 2.16.84 0.1.091984.3.579.2.593 1970 Unknown [id number] 2.16.84 0.1.490965.3.579.2.593 1970 Unknown [id number] 2.16.84 0.1.827478.3.579.2.593 1970 Unknown [id number] 2.16.84 0.1.411879.3.579.2.593 1968 Unknown [id number] 2.16.84 0.1.260002.3.579.2.593 1968 Unknown [id number] 2.16.84 0.1.431725.3.579.2.593 1968 Unknown [id number] 2.16.84 0.1.695707.3.579.2.593 1970 Unknown [id number] 2.16.84 0.1.514403.3.579.2.593 1968 Unknown [id number] 2.16.84 0.1.454305.3.579.2.593 1968 Unknown [id number] 2.16.84 0.1.548345.3.579.2.593 1959 Unknown [id number] Unknown [id number] Unknown [id number] .16.8 40.1.036414.3.579.2.531 Unknown [id number] .16.8 40.1.023660.3.579.2.531 Unknown [id number] .16.8 40.1.066929.3.579.2.531 Social History Date Type Detail Facility Start: 05-14-2020 End: 06-23-2021 Tobacco smoking status FLIS Smoker (finding) [facility] Start: 1970 Sex Assigned At Female F [facility] Start: 06-23-1987 History of tobacco use [facility] Work Phone: Medical Equipment Procedure Code Equipment Code Equipment Origin al Text Equipment Identifier Dates Fusion, spine, lumbar, XLIF CANCELLOUS COARSE 7.5CC FDA Start: 05-22-2020 Fusion, spine, lumbar, XLIF Bone-screw internal spinal fixation system, non-sterile ()[id number] FDA Start: 05-22-2020 Fusion, spine, lumbar, XLIF Bone-screw internal spinal fixation system, non-sterile ()[id number] FDA Start: 05-22-2020 Fusion, spine, lumbar, XLIF Bone-screw internal spinal fixation system, non-sterile ()[id number] FDA Start: 05-22-2020 Fusion, spine, lumbar, XLIF CANCELLOUS COARSE 7.5CC FDA Start: 05-22-2020 Fusion, spine, lumbar, XLIF Bone-screw internal spinal fixation system, non-sterile ()[id number] FDA Start: 05-22-2020 Fusion, spine, lumbar, XLIF Bone-screw internal spinal fixation system, non-sterile ()[id number] FDA Start: 05-22-2020 Fusion, spine, lumbar, XLIF Polymeric spinal fusion cage, non-sterile ()[id number] FDA Start: 05-22-2020 Fusion, spine, lumbar, XLIF Dura mater graft, bovine ()[id number] FDA Start: 05-22-2020 Fusion, spine, lumbar, XLIF MAS REDUCTION FIXATION ADD LEV FDA Start: 05-22-2020 Fusion, spine, lumbar, XLIF XLIF 1 LEVEL MAS REDUCTION FDA Start: 05-22-2020 Fusion, spine, lumbar, XLIF Spinal fusion graft kit ()[id number] FDA Start: 05-22-2020 Fusion, spine, lumbar, XLIF Bone matrix implant, human-derived ()[id number] FDA Start: 05-22-2020 Fusion, spine, lumbar, XLIF Metallic spinal fusion cage, non-sterile ()[id number] FDA Start: 05-22-2020 Fusion, spine, lumbar, XLIF Bone-screw internal spinal fixation system, non-sterile ()[id number] FDA Start: 05-22-2020 Fusion, spine, lumbar, XLIF [...] pill b.i.d. and to continue to use Loleta 7.5 mg t.i.d. We did reduce the use at her last visit from 90 pills a month to 80 pills to last one month's time. She appears to be tolerating this transition quite well. I have asked her to continue with gabapentin 600 mg t.i.d. Her JOYCE on today's visit is 28. She reports the Loleta does improve her quality of life, level of functioning and sleep pattern, and she denies any side effects. As part of providing excellent, safe, comprehensive care, the following was completed at our patient's visit: 1. A medication reconciliation and review to ensure accurate knowledge of current/active medications, including asking our patients to inform us about any oqkn-snb-karffci medications or herbal remedies/nutritional supplements/alternative remedies. 2. [...] options with their primary care provider. [facility] 09-01-2022 Note CONSULTATION CONSULTATION DATE: 09/01/2022 TO: [...] our patients to inform us about any cwaa-ama-euhcmeq medications or herbal remedies/nutritional supplements/alternative remedies. 2. [...] options with their primary care provider. [facility] 08-17-2022 Evaluation note Encounter Date Diagnosis Assessment Notes Jul, Other chronic pain (ICD-10 - G89.29) Jul, Low back pain, unspecified (ICD-10 - M54.50) [facility] Other 02-16-2023 NoteCONSULTATION CONSULTATION DATE: 07/16/2022 HISTORY OF PRESENT ILLNESS: This is a 51-year-old female who returns to the clinic status post bilateral SI joint injection completed on 06/23/2022. The patient received 80% relief for one day and on day two felt worse than her normal baseline pain. Today, she rates her pain 8/10. Medications include gabapentin 600 mg t.i.d., Loleta 7.5/325 b.i.d. and Mobic 15 mg daily. [...] her medications; Mobic 15 mg daily and Loleta 7.5/325 b.i.d. She will return to the clinic in six weeks' time, in which we will, in addition to her PCPs office, review the MRI and form a plan of care at that time. Patient is in agreement to this plan.[id number] Note CONSULTATION CONSULTATION DATE: 05/29/2022 HISTORY OF [...] down. Medications include gabapentin 600 mg t.i.d., Loleta 7.5/325 b.i.d. and diclofenac 50 mg daily. [...] care and will be followed up thereafter.[facility] [id number] NoteCONSULTATION CONSULTATION DATE: 05/14/2022 HISTORY OF PRESENT [...] as well as gabapentin 600 mg t.i.d., Loleta 7.5/325 t.i.d. At her last appointment, she [...] Refills for gabapentin 600 mg t.i.d. and Loleta 7.5/325 b.i.d. will be sent to her pharmacy. Patient agrees to move forward with the procedure. She will followed up in the clinic thereafter.[facility] [id number] NotePAIN MANAGEMENT CONSULTATION CONSULTATION DATE: 05/14/2022 CHIEF [...] with a sacroiliac joint injection under fluoroscopy.[facility] [id number] NoteCONSULTATION CONSULTATION DATE: 03/12/2022 ADDENDUM DIAGNOSIS: Lumbar spondylosis, lumbar degenerative disc disease, chronic lower back pain and a history of a lumbar fusion.[facility] [id number] Note CONSULTATION CONSULTATION DATE: 03/12/2022 This is [...] Current medications include gabapentin 600 mg t.i.d., Loleta 7.5/325 b.i.d., diclofenac cream and ibuprofen. She [...] with her vitamins as well as her Loleta. The dose of frequency will not be changed. We will have the patient return to the clinic in two months' time for re-evaluation. The patient is inquiring about an increase of her Loleta, possibly during the winter months. There will be no changes today.[facility] [id number] NoteCONSULTATION CONSULTATION DATE: 01/07/2022 This is a [...] Current medications include gabapentin 600 mg b.i.d., Loleta 7.5/325 b.i.d., diclofenac topical, multivitamin regimen and ibuprofen p.r.n. She has tried diclofenac in the past but was unable to tolerate it due to stomach issues but low-dose ibuprofen she can tolerate. She is needing Loleta and gabapentin refill today. REVIEW OF SYSTEMS, [...] subsequently move to the left. Refill for L[place]ta 7.5/325 b.i.d. and gabapentin 600 mg b.i.d. will be sent to the pharmacy. The patient is encouraged to increase magnesium in her vitamin regimen as well as menthol heat rub, seated stretches that were demonstrated and heat application. The patient agrees with the plan of care and would like to move forward and she will follow-up in the clinic post procedure.[facility] noteNo assessment information availableOhiohealth Van Wert Hospital Work Phone: Evaluation noteNo InformationNortSouthwood Psychiatric Hospital [employer] Other History general Narrative - Reported* Type [...] see above Hospitalization History 4 child births [facility] [employer] Other Advance Directives No Advanced Directives Records [...] Roberto Roth DO Primary Care Provider Active CALVIN Wiley Attending Provider Active Team Status: Inactive Member [...] section and content) DATE CREATED AUTHOR 08/01/2022 [facility] dical Specialist DATE CREATED AUTHOR AUTHOR'S ORGANIZ ATION 11/06/2022 [facility] DATE CREATED AUTHOR AUTHOR'S ORGANIZ ATION 02/04/2023 [facility] REASON FOR VISIT (unrecogniz ed section and content) referred by Lorne Gonzales ack and right hip painmri location FOR [...] BE BASED ON THE PRIMARY CLINICAL RECORDS. [employer] provides no warranty or guarantee of the accuracy or completeness of information in this document.
[2023-08-31] MEDS: ORPHENADRINE 60 MG/ 2 ML VIAL IM (09:29)
[2023-08-31] MEDS: KETOROLAC TROMETHAMINE 60 MG/2 ML VIAL IM (09:29)
[2023-08-31] MEDS: MORPHINE SULFATE 4 MG/ML VIAL 10 MG IM (10:47)
[2023-08-31 11:19] VITALS: BP 149/85; PULSE 74; TEMP 36.8; O2SAT 98
== END 2023-08-31 11:20 | disposition home or self-care (01) ==
PROVIDERS: Emergency Provider Emergency Medicine; PCP Family Medicine
DX: M54.50 Low back pain, unspecified (principal); Z79.899 Other long term (current) drug therapy; Z90.710 Acquired absence of both cervix and uterus; Z98.1 Arthrodesis status; Z98.890 Other specified postprocedural states
CPT/HCPCS: 72100; 96372; 99284

== ENCOUNTER 2023-09-09 15:02 | Outpatient (OUT) | payer BC, SELFPAY ==
--- NOTE | 2023-09-09 15:44 | P.CN_ITS ---
Consult Note: HPI Data of Consult Patient: known to practice within the last 3 years Requesting Physician: Day Fleming NP Primary Care Provider: SHERIN ROTH Consult Narrative Reason for consult: f/u Narrative: Kim Hill a pleasant 52 year old female presents to office for evaluation of chronic low back and left buttock pain. however over the last 2 weeks she has had severe low back pain with radiculopathy and was evaluated in the ER. Patient rating pain today 7/10 increasing to 10/10 with standing and activity. Patient on last day of steroid pack with mild improvement. Patient finds mild to moderate benefit with norco 7.5-325mg TID PRN, gabapentin 600mg TID, baclofen 10mg BID, mobic 15mg daily without side effects. Patient reports increase in urinary urgency with dribbling, denies loss of complete bladder/bowel. Pt has a hx of multilevel lumbar fusion 3 years ago. Recent xray did not reveal any concerning acute findings. JOYCE 70%, patient unable to work at this time cc:: CC: Day Fleming NP Review of Systems ROS Status of ROS 10 or more systems reviewed and unremark able except as noted in history and below Musculoskeletal Reports: back pain PFSH PFSH Medical History Surgical History History of lymph node excision ?Z98.890 - Other specified postprocedural states (ICD-10) History of hysterectomy ?Z90.710 - Acquired absence of both cervix and uterus (ICD-10) History of lumbar fusion ?Z98.1 - Arthrodesis status (ICD-10) Meds Home Medications and Allergies Home Medications ?Medication ?Instructions ?Recorded ?Confirmed ?Type PRO AIR 11/12/22 History VITAMIN C DAILY 11/12/22 History baclofen 10 mg tablet 10 mg PO TID 11/12/22 04/20/23 History cholecalciferol (vit D3) 1,000 1 tab PO DAILY 11/12/22 04/20/23 History unit-vitamin K2 (MK4) 100 mcg tablet (K2 Plus D3) gabapentin 600 mg tablet 600 mg PO TID 11/12/22 04/20/23 History hydrocodone 5 mg-acetaminophen 325 1 tab PO TID 11/12/22 04/20/23 History mg tablet krill 1,000 mg-omega-3 170 mg-dha 1 cap PO DAILY 11/12/22 04/20/23 History 50 mg-epa 80 ty-rumlyt-caxol capsule (krill oil) lisinopril 10 mg tablet 10 mg PO DAILY 11/12/22 04/20/23 History meloxicam 15 mg tablet 15 mg PO DAILY 11/12/22 04/20/23 History omega 0-oem-eta-fish oil 1,200 mg cap PO 11/12/22 History (144 mg-216 mg) capsule (Fish Oil) omeprazole 20 mg capsule,delayed 20 mg PO DAILY 11/12/22 04/20/23 History release umeclidinium 62.5 mcg-vilanterol 1 inh inhalation DAILY 11/12/22 04/20/23 History 25 mcg/actuation powdr for inhalation (Anoro Ellipta) hydrocodone 7.5 mg-acetaminophen 1 tab PO TID PRN pain #80 tabs 03/01/23 03/16/23 Rx 325 mg tablet hydrocodone 7.5 mg-acetaminophen 1 tab PO TID PRN pain #90 tabs 03/30/23 Rx 325 mg tablet hydrocodone 7.5 mg-acetaminophen 1 tab PO TID PRN pain #80 tabs 04/02/23 Rx 325 mg tablet hydrocodone 7.5 mg-acetaminophen 1 tab PO TID PRN pain #80 tabs 04/13/23 Rx 325 mg tablet hydrocodone 7.5 mg-acetaminophen 1 tab PO TID PRN pain #80 tabs 05/20/23 Rx 325 mg tablet hydrocodone 7.5 mg-acetaminophen 1 tab PO TID PRN pain #80 tabs 06/17/23 Rx 325 mg tablet hydrocodone 7.5 mg-acetaminophen 1 tab PO Q8H PRN pain #90 tabs 07/14/23 Rx 325 mg tablet gabapentin 600 mg tablet 600 mg PO TID #90 tabs 08/17/23 Rx hydrocodone 7.5 mg-acetaminophen 1 tab PO TID #90 tabs 08/17/23 Rx 325 mg tablet Allergies Allergy/AdvReac Type Severity Reaction Status Date / Time amoxicillin [From Augmentin] Allergy Unknown Verified 08/31/23 08:53 clavulanic acid Allergy Unknown Verified 08/31/23 08:53 [From Augmentin] Penicillins Allergy Unknown Verified 08/31/23 08:53 Exam Constitutional Documenting provider has reviewed patient's vital signs: yes Common normals: no apparent distress, oriented x3, healthy appearing, alert and well nourished General appearance: cooperative HENMT Common normals: normocephalic, hearing grossly normal bilaterally and moist oral mucous membranes Head and scalp: normocephalic Eye Common normals: PERRL Pupil: PERRL Neck & C-Spine Common normals: full ROM General: normal visual inspection Cervical spine: pain with cervical ROM and paracervical muscle tenderness Other: intermittent radiculopathy to bilateral hands right greater than left Chest Common normals: inspection of chest normal Respiratory Common normals: normal respiratory effort, no retractions and no use of accessory muscles Back & Pelvis Lumbar spine/lower back: ROM limited, pain with ROM and straight leg raise positive right Sacroiliac joints: SI joint(s) abnormal (right positive beto, fadir, thigh thrust, gaenslens ) Other: decreased sensation following right L4,5 dermatomal pattern however significant pain following L1,2 dermatomal pattern weakness to BLE 4/5 LLE 3/5 in RLE Extremity Common normals: normal to inspection and full ROM Neuro Common normals: oriented x3, CN's II-XII intact bilaterally, moves all extremities, no focal motor deficits, no sensory deficits noted and deep tendon reflexes 2+ bilaterally Sensorium/orientation: alert Gait (neuro): antalgic Motor exam: no movement abnormalities noted and strength abnormal Psych Common normals: mental status grossly normal, thought process normal, cooperative, affect normal, speech normal and activity/motor behavior normal Speech: normal speech Thought process: normal thought process Results Additional Findings Additional findings: If on a controlled substance or opioids, I have checked an [place] report on this patient and there are no aberrancies noted in the prescribing history.??If on a controlled substance or opioid a drug screen was completed and reviewed within the last year, and if there has not been a drug screen completed we ordered one today to monitor higher risk, state monitored pain medication use. As part of providing excellent, safe, comprehensive care, the following was completed at our patient's visit: 1. A medication reconciliation and review to ensure accurate knowledge of current/active medications, including asking our patients to inform us about any [id number] medications or herbal remedies/nutritional supplements/alternative remedies. 2. A review to specifically ensure our patients have had annual screening for sc reening for depression, screening for tobacco use, and screening for unhealthy alcohol use. For concerning screenings had a discussion with the patient, provided patient education, and recommended follow-up with primary care provider when appropriate. If patient noted with a risk of falling, they received education on strength, gait, and balance training to prevent future risk of falling. Assessment and Plan Assessment and Plan (1) Lumbar radiculopathy: (2) Failed back syndrome: (3) Chronic prescription opiate use: (4) Sacroiliac joint pain: (5) Lumbar spondylosis: Plan lumbar MRI with and without contrast for severe low back pain with radiculopathy, notable weakness to BLE, hx of lumbar surgery. essential to evaluate injection therapy options vs surgical referral. pt unable to complete PT due to severe pain, has been engaged in HEP greater than 6 weeks without benefit update UDS today continue current medication regimen f/u after MRI
== END 2023-09-09 15:03 | disposition home or self-care (01) ==
PROVIDERS: PCP Family Medicine; Visit Provider Nurse Practitioner
DX: M54.16 Radiculopathy, lumbar region (principal); Z79.891 Long term (current) use of opiate analgesic; M53.3 Sacrococcygeal disorders, not elsewhere classified; M47.816 Spondylosis without myelopathy or radiculopathy, lumbar region; Z98.890 Other specified postprocedural states
CPT/HCPCS: G0463

== ENCOUNTER 2023-09-14 07:39 | Outpatient (OUT) | payer BC, SELFPAY ==
--- NOTE | 2023-09-14 07:41 | MR_ITS ---
The [address] [address] Patient Name: AKASH LIU MRN: [id number] date: 1970 Sex: F Assigned Patient Location: MRI Current Patient Location: Accession/Order Number: [id number] Exam Date: 09/14/2023 07:50 Report Date: 09/15/2023 08:23 At the request of: MARTHA NOBLE Procedure: MR lumbar spine wo/w con MR lumbar spine wo/w con, 09/14/2023 7:50 AM EDT INDICATION: Lumbar Radiculopathy COMPARISON: Prior x-ray of lumbar spine dated 09/18/[address] of the lumbar spine dated 09/26/2014 TECHNIQUE: Multiplanar, multisequential MRI images of lumbar spine were obtained without and with contrast. FINDINGS: For dictation purposes, the lowest complete disc space in the lumbar spine considered as S1-S2. There is lumbarization of S1. There is status post posterior fusion of L4-L5 and L5-S1 with spacer insertion at the level of L4-5 causing magnetic susceptibility artifact that decreases the sensitivity of this study. Please note that MRI is not sensitive for evaluation of hardware. There is normal physiologic lumbar lordosis. The vertebral height is preserved. The conus medullaris is at the level of L1. No signal abnormality within the visualized spinal cord is noted. No neural foraminal narrowing or canal stenoses at the level of T12-L1 and L1-L2 is noted. At the level of L2-L3, there are disc bulge with superimposed right neuroforaminal disc protrusion with mild right neuroforaminal narrowing and no canal stenosis. At the level of L3-4, there are disc bulge with superimposed right neuroforaminal disc protrusion with minimal right neuroforaminal narrowing and no canal stenosis. At the level of L4-5, there are disc bulge with no neuroforaminal narrowing and no canal stenosis. At the level of L5-S1, there are disc bulge with mild to moderate bilateral neuroforaminal narrowing and no canal stenosis. Level of S1-S2 is unremarkable. The paraspinal muscles show moderate to severe atrophy at the level of L4-L5 and L5-S1. No abnormal enhancing lesion is noted. MR/MR lumbar spine wo/w con IMPRESSION: Mild degenerative changes of lumbar spine in particular at L2-L3 and L5-S1. Electronically authenticated by: ALTAF MCNAMARA Date: 09/15/2023 08:23
--- OUTSIDE RECORDS SUMMARY | 2023-09-14 07:41 | XMS_ITS | CCD ---
Author Organization [facility] Care Team Providers Care Lead Project Engineer Name Role Phone Roberto Roth Primary Care Provider Justice Cruz Attending Provider [phone] DO Roberto Roth Primary Care Provider [phone] MD Hood Rausch Attending Provider [phone] DO Roberto Roth Primary Care Provider [phone] CALVIN Yu Attending Provider MD Paresh Tian Attending Provider Roth, DO Mejia Primary Care Provider CALVIN Yu Attending Provider MD Paresh Tian Attending Provider [phone] MD Gina Guerrero Attending Provider Gina Guerrero [...] ROTH, DR ROBERTO Bhakta Primary Care Unavailable [place], DR DASHA Gomez Consulting Unavailable SINGH ., [...] Paresh Tian Attending Unavailable Roberto Roth Primary [facility] Unavailable Gina Guerrero Admitting Unavailable Gina Guerrero Attending Unavailable Roberto Roth Primary [facility] Unavailable Unavailable Unavailable Unavailable Allergies Allergy Classification Reported Allergen(s) Allergy Type Date of Onset Reaction(s) Facility (6 sources) Amoxicillin; Translations: [amoxicillin] Drug Allergy 0 [facility] (7 sources) Penicillins; Translations: [Penicillins] Propensity to adverse reactions 4 Nausea [facility] (6 sources) clavulanic acid; Translations: [clavulanic acid] Propensity to adverse reactions 0 [facility] (3 sources) Amoxicillin / Clavulanate; Translations: [Augmentin] Drug Allergy 4 Unknown [facility] Repository (2 sources) Azithromycin Drug Allergy diarrhea [facility] Other (2 sources) Penicillin G Drug Allergy Unknown [facility] Other Medications Current Medications Medication Drug Class(es) Dates Sig (Normalized) Sig (Original) acetaminophen 500 mg oral tablet (4 sources) Start: 05-31-2020 take 500 mg by mouth every four hours Acetaminophen Active 500 MG PO Q4H 100 May 31, 2020 1:00am [id number] 200 actuat albuterol 0.09 mg/actuat metered dose [...] by mouth three times daily Hydrocodone-Acetami nophen ([place]) 5-325 mg Tablet Discontinued 1 TAB PO Three times daily March 18, 2019 12:00am May 23, 2020 4:59pm [place] Active azithromycin 250 mg oral tablet (4 [...] sources) High risk drug monitoring status; Translations: [prison (current) use of opiate analgesic] Episodic Other [...] 08-18-2022 XR hip RT min 2V(w/wo pelvis)* [facility] Main [place] [id number] XRay Report Signed Patient: Kim Hill MR#: [id number] : [id number] Acct:[id number] Age/Sex: 51 / F ADM Date: 08/17/22 Loc: XD Room: Type: [facility] Attending Dr: Gina Guerrero MD Copies to: [...] Tate Alva M.D.08/18/2022 10:01 AM Dictation Location: [place] [address] Transcribed By: [facility] 08/18/22 1001 Dictated By: Tate Alva II, MD 08/18/22 0957 Signed By: 08/18/22 1001 [facility] MRI Lumbar Spine w/o + w/on [...] by Justice Lucas on 07/31/[address] [facility] ASTER Antinuclear Antibodieson 07-16-2022 Antinuclear Abs, IFA Positive Critically abnormal . [facility] Comment on above: Result Comment: Nega tive <1:80 Borderline 1:80 Positive >1:80 Performed By: #### A NA, C4, C3, CH50 #### [facility] , #### CRP, CREAT, ADDONUAPLUS, CUU, ESR, CBC #### [facility] [address] [place] [id number] [facility] Note 1 Normal . [facility] Comment on above: Result Comment: [...] titers Nucleosomes, Histones Drug-induced SLE Speckled Sm, ACID BLEACHER, SCL-70, SLE,MCTD,PSS (diffuse form), SS-A/SS-B Sjogrens Nucleolar SCL-70, PM-1/SCL High titers Scleroderma, PM/DM Centromere Centromere PSS (limited form) w/Crest syndrome variable Nuclear Dot Sp100,[id number]-[id number] Primary Biliary Cirrhosis Nuclear GP210, Primary Biliary Cirrhosis Membrane kailyn A,B,C Performed at: [facility] [address] [id number] Process Mold Technician: Collin Rodriguez PhD, Phone: [phone] Performed By: #### A NA, C4, C3, CH50 #### [facility] , #### CRP, CREAT, ADDONUAPLUS, CUU, ESR, CBC #### [facility] [address] [place] [address] Spindle Apparatus Pattern 1:160 High . [facility] Comment on above: Result Comment: ICAP nomenclature: [id number] Performed By: #### A NA, C4, C3, CH50 #### [facility] , #### CRP, CREAT, ADDONUAPLUS, CUU, ESR, CBC #### [facility] [address] [place] [address] Automated erythrocytes count in urine sediment (number/area)Ordered By: Paresh Tian on 07-16-2022 RBC Auto (Urine sed) [#/Area] 1-2 [HPF] 0-4 [facility] Automated leukocytes count i n urine sediment (number/area)Ordered By: Paresh Tian on 07-16-2022 WBC Auto (Urine sed) [#/Area] 20-49 [HPF] 0-4 [facility] Basophils Auto (Bld) [#/Vol] Ordered By: Paresh Tian on 07-16-2022 Basophils (Bld) [#/Vol] 0.0 10*3/uL 0.0-0.2 [facility] Basophils/100 WBC Auto (Bld) Ordered By: Paresh Tian on 07-16-2022 Basophils/100 WBC (Bld) 0.4 % . [facility] Bilirubin Test strip Ql (U)O rdered By: Paresh Tian on 07-16-2022 Bilirubin Ql (U) Negative Negative [facility] C reactive protein [Mass/vol ume] in Serum or PlasmaOrdered By: Paresh Tian on 07-16-2022 CRP [Mass/Vol] 0.8 mg/dL 0.0-1.0 [facility] C-Reactive Proteinon 023 C-Reactive Protein 0.8 mg/dL Normal 0.0-1.0 [facility] Comment on above: Result Comment: PERF ORMED BY: [place] [address] PATHOLOGIST LAW LIBRARIAN PENG POLO M.D. Performed By: #### A NA, C4, C3, CH50 #### [facility] , #### CRP, CREAT, ADDONUAPLUS, CUU, ESR, CBC #### [facility] [address] Color Auto (U)Ordered By: Afia Tian on 07-16-2022 Color (U) Yellow Yellow [facility] Complement C3on 07-16-2022 Complement C3 197 mg/dL High 82-167 [facility] Comment on above: Result Comment: Perf ormed at: - [facility] [address] [id number] Process Mold Technician: Collin Rodriguez PhD, Phone: [phone] Performed By: #### A NA, C4, C3, CH50 #### [facility] , #### CRP, CREAT, ADDONUAPLUS, CUU, ESR, CBC #### [facility] [address] [place] [address] Complement C4on 07-16-2022 Complement C4 42 mg/dL High 12-38 [facility] Comment on above: Result Comment: PERF ORMED BY: [place] [address] PATHOLOGIST LAW LIBRARIAN PENG POLO M.D. Performed By: #### A NA, C4, C3, CH50 #### [facility] , #### CRP, CREAT, ADDONUAPLUS, CUU, ESR, CBC #### [address] Complement Total (CH50)on Complement Total (CH50) >60 Normal >41 [facility] Comment on above: Result Comment: Age [...] out of range values. Performed at: - [facility] [id number] Process Mold Technician: Collin Rodriguez PhD, Phone: [phone] PERFORMED BY: [place] [address] PATHOLOGIST LAW LIBRARIAN PENG POLO M.D. Performed By: #### A NA, C4, C3, CH50 #### [facility] , #### CRP, CREAT, ADDONUAPLUS, CUU, ESR, CBC #### [address] Complete Blood Count Auto Di ffon 07-16-2022 Basophils (Bld) [#/Vol] 0.0 10*3/uL Normal 0.0-0.2 [facility] Comment on above: Performed By: #### A NA, C4, C3, CH50 #### [facility] , #### CRP, CREAT, ADDONUAPLUS, CUU, ESR, CBC #### [address] Basophils/100 WBC (Bld) 0.4 % Normal . [facility] Comment on above: Performed By: #### A NA, C4, C3, CH50 #### [facility] , #### CRP, CREAT, ADDONUAPLUS, CUU, ESR, CBC #### [address] Eosinophils (Bld) [#/Vol] 0.1 10*3/uL Normal 0.0-0.45 [facility] Comment on above: Performed By: #### A NA, C4, C3, CH50 #### [facility] , #### CRP, CREAT, ADDONUAPLUS, CUU, ESR, CBC #### [address] Eosinophils/100 WBC (Bld) 1.1 % Normal . [facility] Comment on above: Performed By: #### A NA, C4, C3, CH50 #### [facility] , #### CRP, CREAT, ADDONUAPLUS, CUU, ESR, CBC #### [address] Erythrocyte distribution width (RBC) [Ratio] 13.0 % Normal 11.9-15.3 [facility] Comment on above: Performed By: #### A NA, C4, C3, CH50 #### [facility] , #### CRP, CREAT, ADDONUAPLUS, CUU, ESR, CBC #### [address] Hematocrit (Bld) [Volume fraction] 45.3 % Normal 34.0-46.4 [facility] Comment on above: Performed By: #### A NA, C4, C3, CH50 #### [facility] , #### CRP, CREAT, ADDONUAPLUS, CUU, ESR, CBC #### [address] Hemoglobin (Bld) [Mass/Vol] 15.2 g/dL Normal 11.8-15.4 [facility] Comment on above: Performed By: #### A NA, C4, C3, CH50 #### [facility] , #### CRP, CREAT, ADDONUAPLUS, CUU, ESR, CBC #### [address] Lymphocytes (Bld) [#/Vol] 3.7 10*3/uL Normal 1.00-4.8 [facility] Comment on above: Performed By: #### A NA, C4, C3, CH50 #### [facility] , #### CRP, CREAT, ADDONUAPLUS, CUU, ESR, CBC #### [address] Lymphocytes/100 WBC (Bld) 35.0 % Normal . [facility] Comment on above: Performed By: #### A NA, C4, C3, CH50 #### [facility] , #### CRP, CREAT, ADDONUAPLUS, CUU, ESR, CBC #### [address] MCH (RBC) [Entitic mass] 33.8 pg Normal 24.7-34.3 [facility] Comment on above: Performed By: #### A NA, C4, C3, CH50 #### [facility] , #### CRP, CREAT, ADDONUAPLUS, CUU, ESR, CBC #### [address] MCV (RBC) [Entitic vol] 100.6 fL High 80-100 [facility] Comment on above: Performed By: #### A NA, C4, C3, CH50 #### [facility] , #### CRP, CREAT, ADDONUAPLUS, CUU, ESR, CBC #### [address] Mean Corpuscular HGB Conc 33.6 g/dL Normal 32.0-35.0 [facility] Comment on above: Performed By: #### A NA, C4, C3, CH50 #### [facility] , #### CRP, CREAT, ADDONUAPLUS, CUU, ESR, CBC #### [address] Monocytes (Bld) [#/Vol] 0.7 10*3/uL Normal 0.0-0.8 [facility] Comment on above: Performed By: #### A NA, C4, C3, CH50 #### [facility] , #### CRP, CREAT, ADDONUAPLUS, CUU, ESR, CBC #### [place] [address] [place] Monocytes/100 WBC (Bld) 6.8 % Normal . [facility] Comment on above: Performed By: #### A NA, C4, C3, CH50 #### [facility] , #### CRP, CREAT, ADDONUAPLUS, CUU, ESR, CBC #### [place] [address] [place] Neutrophils (Bld) [#/Vol] 5.9 10*3/uL Normal 1.8-7.7 [facility] Comment on above: Performed By: #### A NA, C4, C3, CH50 #### [facility] , #### CRP, CREAT, ADDONUAPLUS, CUU, ESR, CBC #### [place] [address] [place] Neutrophils/100 WBC (Bld) 56.7 % Normal . [facility] Comment on above: Performed By: #### A NA, C4, C3, CH50 #### [facility] , #### CRP, CREAT, ADDONUAPLUS, CUU, ESR, CBC #### [address] NRBC% 0.1 /100{WBC} Normal 0-0.5 [facility] Comment on above: Performed By: #### A NA, C4, C3, CH50 #### [facility] , #### CRP, CREAT, ADDONUAPLUS, CUU, ESR, CBC #### [address] Platelet mean volume (Bld) [Entitic vol] 8.4 fL Normal 6.3-10.7 [facility] Comment on above: Performed By: #### A NA, C4, C3, CH50 #### [facility] , #### CRP, CREAT, ADDONUAPLUS, CUU, ESR, CBC #### [address] Platelets (Bld) [#/Vol] 242 10*3/uL Normal 150-450 [facility] Comment on above: Performed By: #### A NA, C4, C3, CH50 #### [facility] , #### CRP, CREAT, ADDONUAPLUS, CUU, ESR, CBC #### [address] RBC (Bld) [#/Vol] 4.50 10*6/uL Normal 3.60-5.00 [facility] Comment on above: Performed By: #### A NA, C4, C3, CH50 #### [facility] , #### CRP, CREAT, ADDONUAPLUS, CUU, ESR, CBC #### [address] WBC (Bld) [#/Vol] 10.4 10*3/uL Normal 3.8-11.6 [facility] Comment on above: Performed By: #### A NA, C4, C3, CH50 #### [facility] , #### CRP, CREAT, ADDONUAPLUS, CUU, ESR, CBC #### [address] Creatinineon 07-16-2022 Creatinine [Mass/Vol] 0.74 mg/dL Normal 0.44-1.03 [facility] Comment on above: Performed By: #### A NA, C4, C3, CH50 #### [facility] , #### CRP, CREAT, ADDONUAPLUS, CUU, ESR, CBC #### [address] Estimated GFR ( [place] > 60 Normal [facility] Comment on above: Result Comment: GFR estimated reference range: According to KDOQI guidelines, <60 ml/min/1.73m2 is sufficient to diagnose a patient with chronic kidney disease. Performed By: #### A NA, C4, C3, CH50 #### [facility] , #### CRP, CREAT, ADDONUAPLUS, CUU, ESR, CBC #### [address] Estimated GFR (Non- Am > 60 Normal [facility] Comment on above: Performed By: #### A NA, C4, C3, CH50 #### [facility] , #### CRP, CREAT, ADDONUAPLUS, CUU, ESR, CBC #### [address] Creatinine and Glomerular fi ltration rate.predicted panel (S/P/Bld)Ordered By: Paresh Tian on 07-16-2022 Creatinine [Mass/Vol] 0.74 mg/dL 0.44-1.03 [facility] Dipstick and Microscopicon 0 07-16-2022 Appearance (U) Clear Normal Clear [facility] Comment on above: Order Comment: Name Collection Type:: Clean-Voided Midstream Performed By: #### A NA, C4, C3, CH50 #### [facility] , #### CRP, CREAT, ADDONUAPLUS, CUU, ESR, CBC #### [facility] [address] [place] [address] Bacteria,Urine 4+ High None Seen [facility] Comment on above: Order Comment: Name Collection Type:: Clean-Voided Midstream Performed By: #### A NA, C4, C3, CH50 #### [facility] , #### CRP, CREAT, ADDONUAPLUS, CUU, ESR, CBC #### [facility] [address] [place] [address] Bilirubin,Urine Negative Normal Negative [facility] Comment on above: Order Comment: Name Collection Type:: Clean-Voided Midstream Performed By: #### A NA, C4, C3, CH50 #### [facility] , #### CRP, CREAT, ADDONUAPLUS, CUU, ESR, CBC #### [facility] [address] [place] [address] [place] Color (U) Yellow Normal Yellow [facility] Comment on above: Order Comment: Name Collection Type:: Clean-Voided Midstream Performed By: #### A NA, C4, C3, CH50 #### [facility] , #### CRP, CREAT, ADDONUAPLUS, CUU, ESR, CBC #### [facility] [address] [place] [address] [place] Glucose Ql (U) Normal Normal Normal [facility] Comment on above: Order Comment: Name Collection Type:: Clean-Voided Midstream Performed By: #### A NA, C4, C3, CH50 #### [facility] , #### CRP, CREAT, ADDONUAPLUS, CUU, ESR, CBC #### [facility] [address] [place] [address] Hyaline Casts,Urine 0-8 Normal 0-8 [facility] Comment on above: Order Comment: Name Collection Type:: Clean-Voided Midstream Result Comment: PERF ORMED BY: [place] [address] PATHOLOGIST LAW LIBRARIAN PENG POLO M.D. Performed By: #### A NA, C4, C3, CH50 #### [facility] , #### CRP, CREAT, ADDONUAPLUS, CUU, ESR, CBC #### [address] Ketones Ql (U) Negative Normal Negative [facility] Comment on above: Order Comment: Name Collection Type:: Clean-Voided Midstream Performed By: #### A NA, C4, C3, CH50 #### [facility] , #### CRP, CREAT, ADDONUAPLUS, CUU, ESR, CBC #### [address] Leukocyte esterase Test strip Ql (U) 3+ High Negative [facility] Comment on above: Order Comment: Name Collection Type:: Clean-Voided Midstream Performed By: #### A NA, C4, C3, CH50 #### [facility] , #### CRP, CREAT, ADDONUAPLUS, CUU, ESR, CBC #### [facility] [address] [place] [address] Nitrite,Urine Negative Normal Negative [facility] Comment on above: Order Comment: Name Collection Type:: Clean-Voided Midstream Performed By: #### A NA, C4, C3, CH50 #### [facility] , #### CRP, CREAT, ADDONUAPLUS, CUU, ESR, CBC #### [address] Occult Blood,Urine Negative Normal Negative [facility] Comment on above: Order Comment: Name Collection Type:: Clean-Voided Midstream Performed By: #### A NA, C4, C3, CH50 #### [facility] , #### CRP, CREAT, ADDONUAPLUS, CUU, ESR, CBC #### [address] pH (U) 6.5 [pH] Normal 5.0-9.0 [facility] Comment on above: Order Comment: Name Collection Type:: Clean-Voided Midstream Performed By: #### A NA, C4, C3, CH50 #### [facility] , #### CRP, CREAT, ADDONUAPLUS, CUU, ESR, CBC #### [address] Protein,Urine Negative Normal Negative [facility] Comment on above: Order Comment: Name Collection Type:: Clean-Voided Midstream Performed By: #### A NA, C4, C3, CH50 #### [facility] , #### CRP, CREAT, ADDONUAPLUS, CUU, ESR, CBC #### [address] RBC,Urine 1-2 Normal 0-4 [facility] Comment on above: Order Comment: Name Collection Type:: Clean-Voided Midstream Performed By: #### A NA, C4, C3, CH50 #### [facility] , #### CRP, CREAT, ADDONUAPLUS, CUU, ESR, CBC #### [address] Specificy [place],Urine 1.018 Normal 1.00 1-1.03 0 [facility] Comment on above: Order Comment: Name Collection Type:: Clean-Voided Midstream Performed By: #### A NA, C4, C3, CH50 #### [facility] , #### CRP, CREAT, ADDONUAPLUS, CUU, ESR, CBC #### [address] Squamous Epithelial Cell,Urine 0-1 Normal 0-2 [facility] Comment on above: Order Comment: Name Collection Type:: Clean-Voided Midstream Performed By: #### A NA, C4, C3, CH50 #### [facility] , #### CRP, CREAT, ADDONUAPLUS, CUU, ESR, CBC #### [facility] [address] [place] [address] Urobilinogen,Urine Normal Normal Normal [facility] Comment on above: Order Comment: Name Collection Type:: Clean-Voided Midstream Performed By: #### A NA, C4, C3, CH50 #### [facility] , #### CRP, CREAT, ADDONUAPLUS, CUU, ESR, CBC #### [facility] [address] [place] [address] WBC,Urine 20-49 High 0-4 [facility] Comment on above: Order Comment: Name Collection Type:: Clean-Voided Midstream Performed By: #### A NA, C4, C3, CH50 #### [facility] , #### CRP, CREAT, ADDONUAPLUS, CUU, ESR, CBC #### [facility] [address] [place] [address] Eosinophils Auto (Bld) [#/Vo l]Ordered By: Paresh Tian on 07-16-2022 Eosinophils (Bld) [#/Vol] 0.1 10*3/uL 0.0-0.45 [facility] Eosinophils/100 WBC Auto (Bl d)Ordered By: Paresh Tian on 07-16-2022 Eosinophils/100 WBC (Bld) 1.1 % . [facility] Erythrocyte Sedimentation Ra declan 07-16-2022 ESR (Bld) [Velocity] 45 mm/h High 0-29 [facility] Comment on above: Result Comment: PERF ORMED BY: [place] [address] PATHOLOGIST LAW LIBRARIAN PENG POLO M.D. Performed By: #### A NA, C4, C3, CH50 #### [facility] , #### CRP, CREAT, ADDONUAPLUS, CUU, ESR, CBC #### [facility] [address] Erythrocyte distribution wid th Auto (RBC) [Ratio]Ordered By: Paresh Tian on 07-16-2022 Erythrocyte distribution width (RBC) [Ratio] 13.0 % 11.9-15.3 [facility] Erythrocyte sedimentation ra te by Photometric methodOrdered By: Paresh Tian on 07-16-2022 ESR Photometric method (Bld) [Velocity] 45 mm/hr 0-29 [facility] Estimated glomerular filtrat ion rate (GFR) non- AmericanOrdered By: Paresh Tian on 07-16-2022 GFR/1.73 sq M.predicted among non-blacks MDRD (S/P/Bld) [Vol rate/Area] > 60 mL/Min [facility] Hematocrit Auto (Bld) [Volum e fraction]Ordered By: Paresh Tian on 07-16-2022 Hematocrit (Bld) [Volume fraction] 45.3 % 34.0-46.4 [facility] Hemoglobin [Mass/volume] in BloodOrdered By: Paresh Tian on 07-16-2022 Hemoglobin (Bld) [Mass/Vol] 15.2 g/dL 11.8-15.4 [facility] Ketones Auto test strip (U) [Mass/Vol]Ordered By: Paresh Tian on 07-16-2022 Ketones (U) [Mass/Vol] Negative Negative [facility] - UrinalysisOrder ed By: Paresh Tian on 07-16-2022 Hyaline casts LM Ql (Urine sed) 0-8 [LPF] 0-8 [facility] Leukocytes [#/volume] correc scot for nucleated erythrocytes in Blood by Automated counOrdered By: Paresh Tian on 07-16-2022 WBC corrected for nucl RBC Auto (Bld) [#/Vol] 10.4 10*3/uL 3.8-11.6 [facility] Lymphocytes Auto (Bld) [#/Vo l]Ordered By: Paresh Tian on 07-16-2022 Lymphocytes (Bld) [#/Vol] 3.7 10*3/uL 1.00-4.8 [facility] Lymphocytes/100 WBC Auto (Bl d)Ordered By: Paresh Tian on 07-16-2022 Lymphocytes/100 WBC (Bld) 35.0 % . [facility] MCH Auto (RBC) [Entitic mass ]Ordered By: Paresh Tian on 07-16-2022 MCH (RBC) [Entitic mass] 33.8 pg 24.7-34.3 [facility] MCHC Auto (RBC) [Mass/Vol]Or dered By: Paresh Tian on 07-16-2022 MCHC (RBC) [Mass/Vol] 33.6 g/dL 32.0-35.0 [facility] MCV Auto (RBC) [Entitic vol] Ordered By: Paresh Tian on 07-16-2022 MCV (RBC) [Entitic vol] 100.6 fL 80-100 [facility] Mitotic spindle apparatus Ab [Titer] in Serum or Plasma by ImmunofluorescenceOrdered By: Paresh Tian on 07-16-2022 Mitotic spindle apparatus Ab IF [Titer] 1:160 . [facility] Comment on above: ICAP nomenclature: A C-25,26 Monocytes Auto (Bld) [#/Vol] Ordered By: Paresh Tian on 07-16-2022 Monocytes (Bld) [#/Vol] 0.7 10*3/uL 0.0-0.8 [facility] Monocytes/100 WBC Auto (Bld) Ordered By: Paresh Tian on 07-16-2022 Monocytes/100 WBC (Bld) 6.8 % . [facility] Neutrophils Auto (Bld) [#/Vo l]Ordered By: Paresh Tian on 07-16-2022 Neutrophils (Bld) [#/Vol] 5.9 10*3/uL 1.8-7.7 [facility] Neutrophils/100 WBC Auto (Bl d)Ordered By: Paresh Tian on 07-16-2022 Neutrophils/100 WBC (Bld) 56.7 % . [facility] Nitrite Test strip Ql (U)Ord ered By: Paresh Tian on 07-16-2022 Nitrite Ql (U) Negative Negative [facility] No Panel InformationOrdered By: Paresh Tian on 07-16-2022 Anti-Nuclear Antibody Comment 2 See comment . [facility] Comment on above: For more information about Hep-2 cell patterns [employer], the official website for the [employer] on Antinuclear Antibody (ASTER) Patterns (ICAP). --------A positive ASTER result may occur in healthy individuals (lowtiter) or be associated with a variety of diseases. Seeinterpretation chart which is not all inclusive:Pattern Antigen Detected Suggested Disease Association Homogeneous DNA(ds,ss), SLE - High titers Nucleosomes, Histones Drug-induced SLE Speckled Sm, ACID BLEACHER, SCL-70, SLE,MCTD,PSS (diffuse form), SS-A/SS-B Sjogrens Nucleolar SCL-70, PM-1/SCL High titers Scleroderma, PM/DM Centromere Centromere PSS (limited form) w/Crest syndrome variable Nuclear Dot Sp100,[id number]-[id number] Primary Biliary Cirrhosis Nuclear GP210, Primary Biliary CirrhosisMembrane kailyn A,B,C Performed at: [id number] [place], [place] [id number] Director: Collin Rodriguez PhD, Phone: [phone] Estimated GFR () > 60 mL/Min [facility] Comment on above: GFR estimated refere nce range: According to KDOQI guidelines, <60 ml/min/1.73m2 is sufficient to diagnose a patient with chronic kidney disease. Pharmacy Creatinine Clearance (Chem N/A [facility] Total Complement (CH50) >60 U/mL >41 F [facility] Comment on above: Age Male Female [...] to determine out of range values.Performed at: [id number] [place], [place] [id number] Director: Collin Rodriguez PhD, Phone: [phone] Nucleated erythrocytes [Pres ence] in Blood by Automated countOrdered By: Paresh Tian on 07-16-2022 Nucleated RBC Auto Ql (Bld) 0.1 /100{WBC} 0-0.5 [facility] Platelet mean volume Auto (B ld) [Entitic vol]Ordered By: Paresh Tian on 07-16-2022 Platelet mean volume (Bld) [Entitic vol] 8.4 fL 6.3-10.7 [facility] Platelets Auto (Bld) [#/Vol] Ordered By: Paresh Tian on 07-16-2022 Platelets (Bld) [#/Vol] 242 10*3/uL 150-450 [facility] Protein Auto test strip (U) [Mass/Vol]Ordered By: Paresh Tian on 07-16-2022 Protein (U) [Mass/Vol] Negative Negative [facility] RBC Auto (Bld) [#/Vol]Ordere d By: Paresh Tian on 07-16-2022 RBC (Bld) [#/Vol] 4.50 10*6/uL 3.60-5.00 [facility] Serum homogeneous pattern an tinuclear antibody (ASTER) titerOrdered By: Paresh Tian on 07-16-2022 Homogenous nuclear Ab pattern (S) [Titer] N/A [facility] Serum nuclear antibody titer Ordered By: Paresh Tian on 07-16-2022 Nuclear Ab (S) [Titer] Positive . [facility] Comment on above: Negative <1:80 Borde rline 1:80 Positive >1:80 Serum or plasma complement C 3 measurement (mass/volume)Ordered By: Paresh Tian on 07-16-2022 Complement C3 [Mass/Vol] 197 mg/dL 82-167 [facility] Comment on above: Performed at: - [facility] [address] [id number] Director: Collin Rodriguez PhD, Phone: [phone] Serum or plasma complement C 4 measurement (mass/volume)Ordered By: Paresh Tian on 07-16-2022 Complement C4 [Mass/Vol] 42 mg/dL 12-38 [facility] Specific gravity Auto test s trip (U) [Rel density]Ordered By: Paresh Tian on 07-16-2022 Specific gravity (U) [Rel density] 1.018 1.001-1.03 0 [facility] Squamous epithelial cells de tection in urine sediment by light microscopyOrdered By: Paresh Tian on 07-16-2022 Epithelial cells.squamous LM Ql (Urine sed) 0-1 [HPF] 0-2 [facility] Urine Cultureon 07-16-2022 Bacteria identified Cx Nom (U) ORGANISM: Escherichia coli (O:ESCCOL) [place] Count >100,000 Aerobic TARA Charge ([id number]) -- [...] RESISTANT TO ALL B-LACTAM DRUGS. PERFORMED BY: [facility] [place] [address] PATHOLOGIST LAW LIBRARIAN PENG POLO M.D. Normal [facility] Comment on above: Performed By: #### A NA, C4, C3, CH50 #### [facility] , #### CRP, CREAT, ADDONUAPLUS, CUU, ESR, CBC #### [facility] [address] [place] [address] [place] Urine bacteria detection by automated methodOrdered By: Paresh Tian on 07-16-2022 Bacteria Auto Ql (U) 4+ [facility] Urine clarity by refractomet ry automatedOrdered By: Paresh Tian on 07-16-2022 Clarity Refractometry automated (U) Clear Clear [facility] Urine culture routineOrdered By: Paresh Tian on 07-16-2022 Bacteria identified Cx Nom (U) Escherichia coli [facility] Urine glucose measurement by automated test strip (mass/volume)Ordered By: Paresh Tian on 07-16-2022 Glucose Auto test strip (U) [Mass/Vol] Normal mg/dL Normal [facility] Urine hemoglobin detection b y automated test stripOrdered By: Paresh Tian on 07-16-2022 Hemoglobin Auto test strip Ql (U) Negative Negative [facility] Urine leukocyte esterase det ection by automated test stripOrdered By: Paresh Tian on 07-16-2022 Leukocyte esterase Auto test strip Ql (U) 3+ Negative [facility] Urobilinogen Auto test strip (U) [Mass/Vol]Ordered By: Paresh Tian on 07-16-2022 Urobilinogen (U) [Mass/Vol] Normal mg/dL Normal [facility] WBC Auto (Bld) [#/Vol]Ordere d By: Paresh Tian on 07-16-2022 WBC (Bld) [#/Vol] 10.4 10*3/uL 3.8-11.6 [facility] pH Auto test strip (U)Ordere d By: Paresh Tian on 07-16-2022 pH (U) 6.5 [pH] 5.0-9.0 [facility] XR lumbar spine 6V w bending on 07-03-2022 XR lumbar spine 6V w bending [facility] [address] [place] [address] [id number] XRay Report Signed Patient: Kim Hill MR#: [id number] : 1970 Acct:[id number] Age/Sex: 51 / F ADM Date: 07/03/22 Loc: XD Room: Type: [facility] Attending Dr: Aby SIMPSON Copies to: [...] Gifford Jr., D.OPancho07/03/2022 3:59 PM Dictation Location: [place] [address] Transcribed By: [facility] 07/03/22 1559 Dictated By: Gary Gifford Jr, DO 07/03/22 1557 Signed By: 07/03/22 1559 [facility] XR HIPS ZEINA [id number] WO PELVISon [...] DASHA KHAN Date: 2022-05-15 07:49 Normal [facility]on SARS-CoV-2 (COVID-19) RNA AMBERLY+probe Ql (Unsp spec) Not detected Normal NOT DETECTED [facility] Comment on above: Result Comment: This test is not yet approved or cleared by the [place] FDA. When there are no FDA-approved or cleared tests available, and other criteria are met, FDA can make tests available under an emergency access mechanism called an Emergency Use Authorization (EUA). The EUA for this test is supported by the [place] of Health and Human Service's (HHS's) declaration [...] consistent with SARS-CoV-2. Performed By: #### C [facility] #### [facility] [address] [place] [address] Dr. Narendra Jacobsen COVID-19 Positive/NegativeOr dered By: Baljinder Rausch on 01-31-2022 SARS-CoV-2 (COVID-19) N gene AMBERLY+probe Ql (Resp) Negative Negative [facility] Comment on above: Testing for SARS-CoV -2 by RT-PCR This test was developed and its performance characteristics determined by [employer] (BD) and validated at the [facility]. This test has not been [...] COVID-19 Positive/Negativeon 05-20-2020 COVID-19 Positive/Negative Negative Negative [facility] Comment on above: Testing for SARS-CoV -2 by RT-PCRThis test was developed and its performance characteristics determined by [employer] ([employer]) and validated at the [facility]. This test has not been [...] Otheron 05-20-2020 Coronavirus 2019 PCR Interp N/A [facility] Automated basophil %on 05-14 Basophils/100 WBC (Bld) 0.5 % F [facility] Automated basophil counton 1 07-15-2019 Basophils (Bld) [#/Vol] 0.0 10*3/uL 0.0-0.2 [facility] Automated blood lymphocyte c ount (number/volume)on 05-14-2020 Lymphocytes (Bld) [#/Vol] 2.8 10*3/uL 1.00-4.8 [facility] Automated blood lymphocyte c ount as percentage of total leukocyteson 05-14-2020 Lymphocytes/100 WBC (Bld) 35.0 % [facility] Automated blood monocyte cou nton 05-14-2020 Monocytes (Bld) [#/Vol] 0.6 10*3/uL 0.0-0.8 [facility] Automated blood platelet cou nt (count/volume)on 05-14-2020 Platelets (Bld) [#/Vol] 225 10*3/uL 150-450 [facility] Automated blood platelet jose n volume measurementon 05-14-2020 Platelet mean volume (Bld) [Entitic vol] 8.2 fL 6.3-10.7 [facility] Automated eosinophil %on Eosinophils/100 WBC (Bld) 1.5 % [facility] Automated eosinophil counton 05-14-2020 Eosinophils (Bld) [#/Vol] 0.1 10*3/uL 0.0-0.45 [facility] Automated erythrocyte distri bution width ratioon 05-14-2020 Erythrocyte distribution width (RBC) [Ratio] 12.3 % 11.9-15.3 [facility] Automated erythrocyte mean c orpuscular hemoglobin (mass per erythrocyte)on 05-14-2020 MCH (RBC) [Entitic mass] 35.2 pg 24.7-34.3 [facility] Automated erythrocyte mean c orpuscular hemoglobin concentration measurement (mass/volon 05-14-2020 MCHC (RBC) [Mass/Vol] 34.2 g/dL 32.0-35.0 [facility] Automated erythrocyte mean c orpuscular volumeon 05-14-2020 MCV (RBC) [Entitic vol] 102.9 fL 80-100 F [facility] Automated monocyte %on 05-14 Monocytes/100 WBC (Bld) 7.0 % F [facility] Automated neutrophil %on Neutrophils/100 WBC (Bld) 56.0 % [facility] Blood erythrocytes automated count (number/volume)on 05-14-2020 RBC (Bld) [#/Vol] 4.08 10*6/uL 3.60-5.00 [facility] Blood hemoglobin measurement (mass/volume)on 05-14-2020 Hemoglobin (Bld) [Mass/Vol] 14.3 g/dL 11.8-15.4 [facility] Blood leukocytes automated c ount (number/volume)on 05-14-2020 WBC (Bld) [#/Vol] 7.9 10*3/uL 4.5-11.0 [facility] Blood neutrophil count by au tomated method (number/volume)on 05-14-2020 Neutrophils (Bld) [#/Vol] 4.4 10*3/uL 1.8-7.7 [facility] Estimated glomerular filtrat ion rate (GFR) non- Americanon 05-14-2020 GFR/1.73 sq M predicted among non-blacks MDRD (S/P/Bld) [Vol rate/Area] mL/min/{1.73_m2} [facility] Hematocrit [Volume Fraction] of Blood by Automated counton 05-14-2020 Hematocrit (Bld) [Volume fraction] 41.9 % 34.0-46.4 [facility] Otheron 05-14-2020 GFR/1.73 sq M.predicted MDRD (S/P/Bld) [Vol rate/Area] mL/min/{1.73_m2} [facility] Comment on above: GFR estimated refere nce range: According to KDOQI guidelines, <60 ml/min/1.73m2 is sufficient to diagnose a patient with chronic kidney disease. Nucleated RBC/100 WBC (Bld) [Ratio] 0.1 % 0-0.5 [facility] Pharmacy Creatinine Clearance (Chem N/A [facility] Serum or plasma calcium octavio urement (mass/volume)on 05-14-2020 Calcium [Mass/Vol] 10.1 mg/dL 8.2-10.2 [facility] Serum or plasma chloride jose surement (moles/volume)on 05-14-2020 Chloride [Moles/Vol] 101 mmol/L 95-114 [facility] Serum or plasma creatinine m easurement with calculation of estimated glomerular filtron 05-14-2020 Creatinine [Mass/Vol] 0.60 mg/dL 0.44-1.03 [facility] Serum or plasma glucose octavio urement (mass/volume)on 05-14-2020 Glucose [Mass/Vol] 94 mg/dL 70-100 [facility] Comment on above: ADA recommended refe rence rangeRandom Glucose Reference Range is dependent on time and content of last meal. Glucose of more than 200 mg/dL in a nonstressed, ambulatory subject supports the diagnosis of Diabetes Mellitus. Serum or plasma potassium me asurement (moles/volume)on 05-14-2020 Potassium [Moles/Vol] 4.3 mmol/L 3.5-5.1 [facility] Serum or plasma sodium measu rement (moles/volume)on 05-14-2020 Sodium [Moles/Vol] 140 mmol/L 136-146 [facility] Serum or plasma total carbon dioxide measurement (moles/volume)on 05-14-2020 CO2 [Moles/Vol] 27.2 mmol/L 22.0-30.0 [facility] Serum or plasma urea nitroge n measurement (mass/volume)on 05-14-2020 Urea nitrogen [Mass/Vol] 7 mg/dL 9- [facility] Vital Signs Date Time Vital Sign Value Performing Clinician Facility 08-17-2022 16:00-0400 Body height 160.02 cm Gina Blades Other [facility] Other 08-17-2022 16:00-0400 Body mass index (BMI) [Ratio] 40.56 kg/m2 Gina Blades Other [facility] Other 08-17-2022 16:00-0400 Body weight 103.87 kg Gina Blades Other [facility] Other 08-17-2022 16:00-0400 Diastolic blood pressure 82 mm[Hg] Gina Blades Other [facility] Other 08-17-2022 16:00-0400 Systolic blood pressure 126 mm[Hg] Gina Blades Other [facility] Other Encounters Encounter Date Encounter Type Care Provider Facility Start: 10-27-2022 ambulatory NARENDRANATH LAKSHMIPATHY . Facility:[facility] Start: 10-13-2022 End: 10-13-2022 ambulatory NARENDRANATH LAKSHMIPATHY . Facility:[facility] Start: 10-06-2022 End: 10-07-2022 ambulatory NARENDRANATH LAKSHMIPATHY . Facility:[facility] Start: 09-08-2022 End: 09-08-2022 ambulatory Gina Blades Other [facility] Other Start: 09-08-2022 Telephone encounter Gina Tobiass [facility] Start: 09-01-2022 End: 09-02-2022 ambulatory NARENDRANATH LAKSHMIPATHY . Facility: Start: 08-17-2022 End: 08-17-2022 ambulatory Gina Guerrero Facility:[facility] Start: 08-17-2022 End: 08-17-2022 Patient encounter procedure DO Roberto Roth Work Phone: [facility] [address] [place] Work Phone: Start: 08-17-2022 End: 08-17-2022 ambulatory DO Roberto Roth Work Phone: [facility] Work Phone: Start: 08-17-2022 Office outpatient ne w 45 minutes Gina Blades [facility] Start: 07-16-2022 End: 07-16-2022 ambulatory Paresh Haladay Facility:[facility] Start: 07-16-2022 End: 07-17-2022 ambulatory DO Roberto Roth Work Phone: [facility] Work Phone: Start: 07-16-2022 End: 07-16-2022 Patient encounter procedure DO Roberto Roth Work Phone: [facility] [address] Work Phone: Start: 07-03-2022 End: 07-03-2022 ambulatory Aby Eisenstein Facility:[facility] Start: 07-03-2022 End: 07-03-2022 ambulatory DO Roberto Roth Work Phone: [facility] Work Phone: Start: 07-03-2022 End: 07-03-2022 Patient encounter procedure DO Roberto Roth Work Phone: [facility] [address] [place] Work Phone: Start: 06-23-2022 End: 06-23-[address] HOOD RAUSCH . Facility:[facility] Start: 05-29-2022 End: 05-30-[address] HOOD RAUSCH . Facility:[facility] Start: 05-14-2022 End: 05-15-2022 ambulatory ADA SINGH . Facility:[facility] Start: 03-12-2022 End: 03-13-[address] HOOD RAUSCH . Facility:[facility] Start: 02-13-2022 Encounter for preprocedural laboratory examination DR HOOD RAUSCH . [facility] Start: 02-10-2022 End: 02-10-[address] HOOD RAUSCH . Facility:[facility] Start: 02-06-2022 End: 02-07-[address] HOOD RAUSCH . Facility:[facility] Start: 02-06-2022 End: 02-07-2022 Encounter for preprocedural laboratory examination DR HOOD RAUSCH . Facility:[facility] Start: 02-03-2022 End: 02-03-[address] HOOD RAUSCH . Facility:[facility] Start: 01-31-2022 End: 01-31-2022 Patient encounter procedure DO Roberto Roth Work Phone: [facility] Start: 01-16-[address] HOOD RAUSCH . Faci lity:[facility] Start: 01-07-2022 End: 01-08-[address] HOOD RAUSCH . Facility:[facility] Start: 05-20-2020 End: 05-20-2020 Patient encounter procedure Roberto Roth -Pre-Surgical Testing Start: 05-14-2020 End: 05-14-2020 Patient encounter procedure Roberto Roth -Pre-Surgical Testing Start: 04-26-2020 End: 04-26-2020 Patient encounter procedure Roberto Roth -XRay [facility] Procedures Date Procedure Procedure Detail Performing Clinician [...] XR hi p RT min 2V(w/wo pelvis)* [facility] Start: 08-17-2022 XR Hip - right 2 Views [facility] Start: 07-16-2022 Bacteria identified in Urine by Culture [facility] Start: 07-16-2022 Hemolytic complement CH50 level [facility] Start: 07-16-2022 [facility] Complement C3 [Mass/volume] in Serum or Plasma [facility] Complement C4 [Mass/volume] in Serum or Plasma [facility] Homogenous nuclear A b pattern [Titer] in Serum [facility] Nuclear Ab [Titer] i n Serum [facility] Immunizations Immunization Date Immunization Notes Care Provider Fa cility 11-09-2020 COVID-19 mRNA-1273 (Moderna) DO Roberto Roth Work Phone: [facility] 10-12-2020 COVID-19 mRNA-1273 (Moderna) DO Roberto Roth Work Phone: [facility] 05-23-2020 influenza, injectabl e, quadrivalent, preservative free DO Roberto Roth Work Phone: [facility] Payers Date Payer Category Payer Self-pay [id number] 1970 Unknown [id number] 2.16.84 [id number] 1970 Unknown [id number] .16.84 0.1.206922.3.579.2.59 1970 Unknown [id number] .16.84 0.1.681874.3.579.2.593 1970 Unknown [id number] .16.84 0.1.640914.3.579.2.593 1970 Unknown [id number] .16.84 0.1.102786.3.579.2.593 1968 Unknown [id number] 2.16.84 0.1.334924.3.579.2.593 1968 Unknown [id number] 2.16.84 0.1.627726.3.579.2.593 1970 Unknown [id number] 2.16.84 0.1.282936.3.579.2.593 1970 Unknown [id number] 2.16.84 0.1.627814.3.579.2.593 1968 Unknown [id number] 2.16.84 0.1.615475.3.579.2.593 1968 Unknown [id number] 2.16.84 0.1.183779.3.579.2.593 1968 Unknown [id number] 2.16.84 0.1.179583.3.579.2.593 1968 Unknown [id number] 2.16.84 0.1.023003.3.579.2.593 1968 Unknown [id number] 2.16.84 0.1.364643.3.579.2.593 1968 Unknown [id number] 2.16.84 0.1.083317.3.579.2.593 1959 Unknown [id number] Unknown [id number] Unknown [id number] .16.8 40.1.606453.3.579.2.531 Unknown [id number] .16.8 40.1.834800.3.579.2.531 Unknown [id number] .16.8 40.1.910082.3.579.2.531 Social History Date Type Detail Facility Start: 05-14-2020 End: 06-23-2021 Tobacco smoking status OHIS Smoker (finding) [facility] Start: 1970 Sex Assigned At Female F [facility] Start: 06-23-1987 History of tobacco use [facility] Work Phone: Medical Equipment Procedure Code Equipment Code Equipment Origin al Text Equipment Identifier Dates Fusion, spine, lumbar, XLIF CANCELLOUS COARSE 7.5CC FDA Start: 05-22-2020 Fusion, spine, lumbar, XLIF Bone-screw internal spinal fixation system, non-sterile ()[id number] FDA Start: 05-22-2020 Fusion, spine, lumbar, XLIF Bone-screw internal spinal fixation system, non-sterile ()[id number] FDA Start: 05-22-2020 Fusion, spine, lumbar, XLIF Bone-screw internal spinal fixation system, non-sterile ()[id number] FDA Start: 05-22-2020 Fusion, spine, lumbar, XLIF CANCELLOUS COARSE 7.5CC FDA Start: 05-22-2020 Fusion, spine, lumbar, XLIF Bone-screw internal spinal fixation system, non-sterile ()[id number] FDA Start: 05-22-2020 Fusion, spine, lumbar, XLIF Bone-screw internal spinal fixation system, non-sterile ()[id number] FDA Start: 05-22-2020 Fusion, spine, lumbar, XLIF Polymeric spinal fusion cage, non-sterile ()[id number] FDA Start: 05-22-2020 Fusion, spine, lumbar, XLIF Dura mater graft, bovine ()[id number] FDA Start: 05-22-2020 Fusion, spine, lumbar, XLIF MAS REDUCTION FIXATION ADD LEV FDA Start: 05-22-2020 Fusion, spine, lumbar, XLIF XLIF 1 LEVEL MAS REDUCTION FDA Start: 05-22-2020 Fusion, spine, lumbar, XLIF Spinal fusion graft kit ()[id number] FDA Start: 05-22-2020 Fusion, spine, lumbar, XLIF Bone matrix implant, human-derived ()[id number] FDA Start: 05-22-2020 Fusion, spine, lumbar, XLIF Metallic spinal fusion cage, non-sterile ()[id number] FDA Start: 05-22-2020 Fusion, spine, lumbar, XLIF Bone-screw internal spinal fixation system, non-sterile ()[id number] FDA Start: 05-22-2020 Fusion, spine, lumbar, XLIF [...] pill b.i.d. and to continue to use [place] 7.5 mg t.i.d. We did reduce the use at her last visit from 90 pills a month to 80 pills to last one month's time. She appears to be tolerating this transition quite well. I have asked her to continue with gabapentin 600 mg t.i.d. Her JOYCE on today's visit is 28. She reports the [place] does improve her quality of life, level of functioning and sleep pattern, and she denies any side effects. As part of providing excellent, safe, comprehensive care, the following was completed at our patient's visit: 1. A medication reconciliation and review to ensure accurate knowledge of current/active medications, including asking our patients to inform us about any ojst-dfy-rkzhguo medications or herbal remedies/nutritional supplements/alternative remedies. 2. [...] options with their primary care provider. [facility] 09-01-2022 Note CONSULTATION CONSULTATION DATE: 09/01/2022 [...] our patients to inform us about any utyc-wgx-lspbayt medications or herbal remedies/nutritional supplements/alternative remedies. 2. [...] options with their primary care provider. [facility] 08-17-2022 Evaluation note Encounter Date Diagnosis Assessment Notes Jul, Other chronic pain (ICD-10 - G89.29) Jul, Low back pain, unspecified (ICD-10 - M54.50) [facility] Other 02-16-2023 NoteCONSULTATION CONSULTATION DATE: 07/16/2022 HISTORY OF PRESENT ILLNESS: This is a 51-year-old female who returns to the clinic status post bilateral SI joint injection completed on 06/23/2022. The patient received 80% relief for one day and on day two felt worse than her normal baseline pain. Today, she rates her pain 8/10. Medications include gabapentin 600 mg t.i.d., [place] 7.5/325 b.i.d. and Mobic 15 mg daily. [...] her medications; Mobic 15 mg daily and [place] 7.5/325 b.i.d. She will return to the clinic in six weeks' time, in which we will, in addition to her PCPs office, review the MRI and form a plan of care at that time. Patient is in agreement to this plan.[facility] [id number] Note CONSULTATION CONSULTATION DATE: 05/29/2022 HISTORY OF [...] down. Medications include gabapentin 600 mg t.i.d., [place] 7.5/325 b.i.d. and diclofenac 50 mg daily. [...] care and will be followed up thereafter.[facility] [id number] NoteCONSULTATION CONSULTATION DATE: 05/14/2022 HISTORY OF PRESENT [...] as well as gabapentin 600 mg t.i.d., [place] 7.5/325 t.i.d. At her last appointment, she [...] Refills for gabapentin 600 mg t.i.d. and [place] 7.5/325 b.i.d. will be sent to her pharmacy. Patient agrees to move forward with the procedure. She will followed up in the clinic thereafter.[facility] [id number] NotePAIN MANAGEMENT CONSULTATION CONSULTATION DATE: 05/14/2022 CHIEF [...] with a sacroiliac joint injection under fluoroscopy.[facility] HospitalKetsadkt45-30-2006 NoteCONSULTATION CONSULTATION DATE: 03/12/2022 ADDENDUM DIAGNOSIS: Lumbar spondylosis, lumbar degenerative disc disease, chronic lower back pain and a history of a lumbar fusion.[facility] [id number] Note CONSULTATION CONSULTATION DATE: 03/12/2022 This is [...] Current medications include gabapentin 600 mg t.i.d., [place] 7.5/325 b.i.d., diclofenac cream and ibuprofen. She [...] with her vitamins as well as her [place]. The dose of frequency will not be changed. We will have the patient return to the clinic in two months' time for re-evaluation. The patient is inquiring about an increase of her [place], possibly during the winter months. There will be no changes today.[facility] [id number] NoteCONSULTATION CONSULTATION DATE: 01/07/2022 This is a [...] Current medications include gabapentin 600 mg b.i.d., [place] 7.5/325 b.i.d., diclofenac topical, multivitamin regimen and ibuprofen p.r.n. She has tried diclofenac in the past but was unable to tolerate it due to stomach issues but low-dose ibuprofen she can tolerate. She is needing [place] and gabapentin refill today. REVIEW OF SYSTEMS, [...] subsequently move to the left. Refill for [place] 7.5/325 b.i.d. and gabapentin 600 mg b.i.d. will be sent to the pharmacy. The patient is encouraged to increase magnesium in her vitamin regimen as well as menthol heat rub, seated stretches that were demonstrated and heat application. The patient agrees with the plan of care and would like to move forward and she will follow-up in the clinic post procedure.[facility] Hospital[facility] noteNo assessment information availableBrown Memorial Hospital Work Phone: Evaluation noteNo InformationNortBarnes-Kasson [facility] Grow Other History general Narrative - Reported* Type [...] see above Hospitalization History 4 child births [facility] Grow Other Advance Directives No Advanced Directives Records [...] section and content) DATE CREATED AUTHOR 08/01/2022 [facility] dical Specialist DATE CREATED AUTHOR AUTHOR'S ORGANIZ ATION 11/06/2022 [facility] DATE CREATED AUTHOR AUTHOR'S ORGANIZ ATION 02/04/2023 [facility] REASON FOR VISIT (unrecogniz ed section [...] BE BASED ON THE PRIMARY CLINICAL RECORDS. [employer] provides no warranty or guarantee of the accuracy or completeness of information in this document.
== END 2023-09-14 07:40 | disposition home or self-care (01) ==
LOC: MRI 07:39
PROVIDERS: Visit Provider Nurse Practitioner
DX: M54.16 Radiculopathy, lumbar region (principal); M51.36 Other intervertebral disc degeneration, lumbar region
CPT/HCPCS: 72158; A9575

== ENCOUNTER 2023-09-22 07:51 | Outpatient (OUT) | payer BC, SELFPAY ==
--- OUTSIDE RECORDS SUMMARY | 2023-09-22 08:01 | XMS_ITS | CCD ---
Author Organization [facility] Care Team Providers Care General [address] Supervisor Name Role Phone Roberto Roth Primary Care Provider [phone] Justice Cruz Attending Provider [phone] DO Roberto Roth Primary Care Provider MD Hood Rausch Attending Provider [phone] DO Roberto Roth Primary Care Provider CALVIN Yu Attending Provider MD Paresh Tian Attending Provider Roth, DO Mejia Primary Care Provider CALVIN Yu Attending Provider MD Paresh Tian Attending Provider [phone] MD Gina Guerrero Attending Provider Gina Guerrero [...] RAUSCH ., DR HOOD Hernandez Admitting Unavailable ROHT, DR ROBERTO Bhakta Primary Care Unavailable SINGH ., ADA Consulting Unavailable RAUSCH ., DR HOOD Hernandez Consulting Unavailable RAUSCH ., DR HOOD Hernandez Attending Unavailable RAUSCH ., DR HOOD Hernandez Admitting Unavailable ROTH, DR ROBERTO Bhakta Primary Care Unavailable JOELLE BRAXTON Consulting Unava ilable SINGH ., ADA Attending Unavailable SINGH ., ADA Admitting Unavailable ROTH, DR ROBERTO Bhakta Primary Care Unavailable HOWARD, DR DASHA Gomez Consulting Unavailable SINGH ., ADA Consulting Unavailable RAUSCH ., DR HOOD Hernandez Attending Unavailable RAUSCH ., DR HOOD Hernandez Admitting Unavailable RAUSCH ., DR HOOD Hernandez Consulting Unavailable IRA, DR ROBERTO Bhakta Primary Care Unavailable RAUSCH ., DR HODO Hernandez Attending Unavailable RAUSCH ., DR HOOD [...] Paresh Tian Attending Unavailable Roberto Roth Primary [facility] Unavailable Gina Guerrero Admitting Unavailable Gina Guerrero Attending Unavailable Roberto Roth Primary [facility] Unavailable Unavailable Unavailable Unavailable Allergies Allergy Classification Reported Allergen(s) Allergy Type Date of Onset Reaction(s) Facility (6 sources) Amoxicillin; Translations: [amoxicillin] Drug Allergy 0 [facility] (7 sources) Penicillins; Translations: [Penicillins] Propensity to adverse reactions 4 Nausea [facility] (6 sources) clavulanic acid; Translations: [clavulanic acid] Propensity to adverse reactions 0 [facility] (3 sources) Amoxicillin / Clavulanate; Translations: [Augmentin] Drug Allergy 4 Unknown [facility] (2 sources) Azithromycin Drug Allergy diarrhea [facility] Other (2 sources) Penicillin G Drug Allergy Unknown [facility] Other Medications Current Medications Medication Drug Class(es) Dates Sig (Normalized) Sig (Original) acetaminophen 500 mg oral tablet (4 sources) Start: 05-31-2020 take 500 mg by mouth every four hours Acetaminophen Active 500 MG PO Q4H 100 May 31, 2020 1:00am [id number] 200 actuat albuterol 0.09 mg/actuat metered dose [...] by mouth three times daily Hydrocodone-Acetami nophen (Beaver) 5-325 mg Tablet Discontinued 1 TAB PO Three times daily March 18, 2019 12:00am May 23, 2020 4:59pm [place] Active azithromycin 250 mg oral tablet (4 [...] sources) High risk drug monitoring status; Translations: [custodial (current) use of opiate analgesic] Episodic Other [...] 08-18-2022 XR hip RT min 2V(w/wo pelvis)* [facility] Main [place] [id number] XRay Report Signed Patient: Kim Hill MR#: [id number] : 1970 Acct:[id number] Age/Sex: 51 / F ADM Date: 08/17/22 Loc: XD Room: Type: [facility] Attending Dr: Gina Guerrero MD [...] Tate Alva M.D.08/18/2022 10:01 AM Dictation Location: [place] [address] Transcribed By: [facility] 08/18/22 1001 Dictated By: Tate Alva II, MD 08/18/22 0957 Signed By: 08/18/22 1001 [facility] MRI Lumbar Spine w/o + [...] by Justice Lucas on 07/31/2022 0915 Normal [facility] ASTER Antinuclear Antibodieson 07-16-2022 Antinuclear Abs, IFA Positive Critically abnormal . [facility] Comment on above: Result Comment: Nega tive <1:80 Borderline 1:80 Positive >1:80 Performed By: #### A NA, C4, C3, CH50 #### [facility] , #### CRP, CREAT, ADDONUAPLUS, CUU, ESR, CBC #### [facility] [address] [place] [id number] [facility] Note 1 Normal . [facility] Comment on above: Result Comment: For [...] titers Nucleosomes, Histones Drug-induced SLE Speckled Sm, JACKSPOOLER, SCL-70, SLE,MCTD,PSS (diffuse form), SS-A/SS-B Sjogrens Nucleolar SCL-70, PM-1/SCL High titers Scleroderma, PM/DM Centromere Centromere PSS (limited form) w/Crest syndrome variable Nuclear Dot Sp100,[id number] Primary Biliary Cirrhosis Nuclear GP210, Primary Biliary Cirrhosis Membrane kailyn A,B,C Performed at: [facility] [address] [id number] Urban Renewal Manager: Collin Rodriguez PhD, Phone: [phone] Performed By: #### A NA, C4, C3, CH50 #### [facility] , #### CRP, CREAT, ADDONUAPLUS, CUU, ESR, CBC #### [facility] [address] [place] [address] Spindle Apparatus Pattern 1:160 High . [facility] Comment on above: Result Comment: ICAP nomenclature: [id number] Performed By: #### A NA, C4, C3, CH50 #### [facility] , #### CRP, CREAT, ADDONUAPLUS, CUU, ESR, CBC #### [facility] [address] [place] [address] Automated erythrocytes count in urine sediment (number/area)Ordered By: Paresh Tian on 07-16-2022 RBC Auto (Urine sed) [#/Area] 1-2 [HPF] 0-4 [facility] Automated leukocytes count i n urine sediment (number/area)Ordered By: Paresh Tian on 07-16-2022 WBC Auto (Urine sed) [#/Area] 20-49 [HPF] 0-4 [facility] Basophils Auto (Bld) [#/Vol] Ordered By: Paresh Tian on 07-16-2022 Basophils (Bld) [#/Vol] 0.0 10*3/uL 0.0-0.2 [facility] Basophils/100 WBC Auto (Bld) Ordered By: Paresh Tian on 07-16-2022 Basophils/100 WBC (Bld) 0.4 % . [facility] Bilirubin Test strip Ql (U)O rdered By: Paresh Tian on 07-16-2022 Bilirubin Ql (U) Negative Negative [facility] C reactive protein [Mass/vol ume] in Serum or PlasmaOrdered By: Paresh Tian on 07-16-2022 CRP [Mass/Vol] 0.8 mg/dL 0.0-1.0 [facility] C-Reactive Proteinon 023 C-Reactive Protein 0.8 mg/dL Normal 0.0-1.0 [facility] Comment on above: Result Comment: PERF ORMED BY: [place] [address] PATHOLOGIST HOSPICE ADMINISTRATOR PENG POLO M.D. Performed By: #### A NA, C4, C3, CH50 #### [facility] , #### CRP, CREAT, ADDONUAPLUS, CUU, ESR, CBC #### [facility] [address] Color Auto (U)Ordered By: Afia Tian on 07-16-2022 Color (U) Yellow Yellow [facility] Complement C3on 07-16-2022 Complement C3 197 mg/dL High 82-167 [facility] Comment on above: Result Comment: Perf ormed at: - [facility] [address] [id number] Urban Renewal Manager: Collin Rodriguez PhD, Phone: [phone] Performed By: #### A NA, C4, C3, CH50 #### [facility] , #### CRP, CREAT, ADDONUAPLUS, CUU, ESR, CBC #### [facility] [address] [place] [address] Complement C4on 07-16-2022 Complement C4 42 mg/dL High 12-38 [facility] Comment on above: Result Comment: PERF ORMED BY: [place] [address] PATHOLOGIST HOSPICE ADMINISTRATOR PENG POLO M.D. Performed By: #### A NA, C4, C3, CH50 #### [facility] , #### CRP, CREAT, ADDONUAPLUS, CUU, ESR, CBC #### [address] Complement Total (CH50)on Complement Total (CH50) >60 Normal >41 [facility] Comment on above: Result Comment: Age Male [...] out of range values. Performed at: - [facility] [id number] Urban Renewal Manager: Collin Rodriguez PhD, Phone: [phone] PERFORMED BY: [place] [address] PATHOLOGIST HOSPICE ADMINISTRATOR PENG POLO M.D. Performed By: #### A NA, C4, C3, CH50 #### [facility] , #### CRP, CREAT, ADDONUAPLUS, CUU, ESR, CBC #### [address] Complete Blood Count Auto Di ffon 07-16-2022 Basophils (Bld) [#/Vol] 0.0 10*3/uL Normal 0.0-0.2 [facility] Comment on above: Performed By: #### A NA, C4, C3, CH50 #### [facility] , #### CRP, CREAT, ADDONUAPLUS, CUU, ESR, CBC #### [address] Basophils/100 WBC (Bld) 0.4 % Normal . [facility] Comment on above: Performed By: #### A NA, C4, C3, CH50 #### [facility] , #### CRP, CREAT, ADDONUAPLUS, CUU, ESR, CBC #### [address] Eosinophils (Bld) [#/Vol] 0.1 10*3/uL Normal 0.0-0.45 [facility] Comment on above: Performed By: #### A NA, C4, C3, CH50 #### [facility] , #### CRP, CREAT, ADDONUAPLUS, CUU, ESR, CBC #### [address] Eosinophils/100 WBC (Bld) 1.1 % Normal . [facility] Comment on above: Performed By: #### A NA, C4, C3, CH50 #### [facility] , #### CRP, CREAT, ADDONUAPLUS, CUU, ESR, CBC #### [address] Erythrocyte distribution width (RBC) [Ratio] 13.0 % Normal 11.9-15.3 [facility] Comment on above: Performed By: #### A NA, C4, C3, CH50 #### [facility] , #### CRP, CREAT, ADDONUAPLUS, CUU, ESR, CBC #### [address] Hematocrit (Bld) [Volume fraction] 45.3 % Normal 34.0-46.4 [facility] Comment on above: Performed By: #### A NA, C4, C3, CH50 #### [facility] , #### CRP, CREAT, ADDONUAPLUS, CUU, ESR, CBC #### [address] Hemoglobin (Bld) [Mass/Vol] 15.2 g/dL Normal 11.8-15.4 [facility] Comment on above: Performed By: #### A NA, C4, C3, CH50 #### [facility] , #### CRP, CREAT, ADDONUAPLUS, CUU, ESR, CBC #### [address] Lymphocytes (Bld) [#/Vol] 3.7 10*3/uL Normal 1.00-4.8 [facility] Comment on above: Performed By: #### A NA, C4, C3, CH50 #### [facility] , #### CRP, CREAT, ADDONUAPLUS, CUU, ESR, CBC #### [address] Lymphocytes/100 WBC (Bld) 35.0 % Normal . [facility] Comment on above: Performed By: #### A NA, C4, C3, CH50 #### [facility] , #### CRP, CREAT, ADDONUAPLUS, CUU, ESR, CBC #### [address] MCH (RBC) [Entitic mass] 33.8 pg Normal 24.7-34.3 [facility] Comment on above: Performed By: #### A NA, C4, C3, CH50 #### [facility] , #### CRP, CREAT, ADDONUAPLUS, CUU, ESR, CBC #### [address] MCV (RBC) [Entitic vol] 100.6 fL High 80-100 [facility] Comment on above: Performed By: #### A NA, C4, C3, CH50 #### [facility] , #### CRP, CREAT, ADDONUAPLUS, CUU, ESR, CBC #### [address] Mean Corpuscular HGB Conc 33.6 g/dL Normal 32.0-35.0 [facility] Comment on above: Performed By: #### A NA, C4, C3, CH50 #### [facility] , #### CRP, CREAT, ADDONUAPLUS, CUU, ESR, CBC #### [address] Monocytes (Bld) [#/Vol] 0.7 10*3/uL Normal 0.0-0.8 [facility] Comment on above: Performed By: #### A NA, C4, C3, CH50 #### [facility] , #### CRP, CREAT, ADDONUAPLUS, CUU, ESR, CBC #### [place] [address] [place] Monocytes/100 WBC (Bld) 6.8 % Normal . [facility] Comment on above: Performed By: #### A NA, C4, C3, CH50 #### [facility] , #### CRP, CREAT, ADDONUAPLUS, CUU, ESR, CBC #### [place] [address] [place] Neutrophils (Bld) [#/Vol] 5.9 10*3/uL Normal 1.8-7.7 [facility] Comment on above: Performed By: #### A NA, C4, C3, CH50 #### [facility] , #### CRP, CREAT, ADDONUAPLUS, CUU, ESR, CBC #### [place] [address] [place] Neutrophils/100 WBC (Bld) 56.7 % Normal . [facility] Comment on above: Performed By: #### A NA, C4, C3, CH50 #### [facility] , #### CRP, CREAT, ADDONUAPLUS, CUU, ESR, CBC #### [address] NRBC% 0.1 /100{WBC} Normal 0-0.5 [facility] Comment on above: Performed By: #### A NA, C4, C3, CH50 #### [facility] , #### CRP, CREAT, ADDONUAPLUS, CUU, ESR, CBC #### [address] Platelet mean volume (Bld) [Entitic vol] 8.4 fL Normal 6.3-10.7 [facility] Comment on above: Performed By: #### A NA, C4, C3, CH50 #### [facility] , #### CRP, CREAT, ADDONUAPLUS, CUU, ESR, CBC #### [address] Platelets (Bld) [#/Vol] 242 10*3/uL Normal 150-450 [facility] Comment on above: Performed By: #### A NA, C4, C3, CH50 #### [facility] , #### CRP, CREAT, ADDONUAPLUS, CUU, ESR, CBC #### [address] RBC (Bld) [#/Vol] 4.50 10*6/uL Normal 3.60-5.00 [facility] Comment on above: Performed By: #### A NA, C4, C3, CH50 #### [facility] , #### CRP, CREAT, ADDONUAPLUS, CUU, ESR, CBC #### [address] WBC (Bld) [#/Vol] 10.4 10*3/uL Normal 3.8-11.6 [facility] Comment on above: Performed By: #### A NA, C4, C3, CH50 #### [facility] , #### CRP, CREAT, ADDONUAPLUS, CUU, ESR, CBC #### [address] Creatinineon 07-16-2022 Creatinine [Mass/Vol] 0.74 mg/dL Normal 0.44-1.03 [facility] Comment on above: Performed By: #### A NA, C4, C3, CH50 #### [facility] , #### CRP, CREAT, ADDONUAPLUS, CUU, ESR, CBC #### [address] Estimated GFR ( Sharon > 60 Normal [facility] Comment on above: Result Comment: GFR estimated reference range: According to KDOQI guidelines, <60 ml/min/1.73m2 is sufficient to diagnose a patient with chronic kidney disease. Performed By: #### A NA, C4, C3, CH50 #### [facility] , #### CRP, CREAT, ADDONUAPLUS, CUU, ESR, CBC #### [address] Estimated GFR (Non- Am > 60 Normal [facility] Comment on above: Performed By: #### A NA, C4, C3, CH50 #### [facility] , #### CRP, CREAT, ADDONUAPLUS, CUU, ESR, CBC #### [address] Creatinine and Glomerular fi ltration rate.predicted panel (S/P/Bld)Ordered By: Paresh Tian on 07-16-2022 Creatinine [Mass/Vol] 0.74 mg/dL 0.44-1.03 [facility] Dipstick and Microscopicon 0 07-16-2022 Appearance (U) Clear Normal Clear [facility] Comment on above: Order Comment: Name Collection Type:: Clean-Voided Midstream Performed By: #### A NA, C4, C3, CH50 #### [facility] , #### CRP, CREAT, ADDONUAPLUS, CUU, ESR, CBC #### [facility] [address] [place] [address] Bacteria,Urine 4+ High None Seen [facility] Comment on above: Order Comment: Name Collection Type:: Clean-Voided Midstream Performed By: #### A NA, C4, C3, CH50 #### [facility] , #### CRP, CREAT, ADDONUAPLUS, CUU, ESR, CBC #### [facility] [address] [place] [address] Bilirubin,Urine Negative Normal Negative [facility] Comment on above: Order Comment: Name Collection Type:: Clean-Voided Midstream Performed By: #### A NA, C4, C3, CH50 #### [facility] , #### CRP, CREAT, ADDONUAPLUS, CUU, ESR, CBC #### [facility] [address] [place] [address] [place] Color (U) Yellow Normal Yellow [facility] Comment on above: Order Comment: Name Collection Type:: Clean-Voided Midstream Performed By: #### A NA, C4, C3, CH50 #### [facility] , #### CRP, CREAT, ADDONUAPLUS, CUU, ESR, CBC #### [facility] [address] [place] [address] [place] Glucose Ql (U) Normal Normal Normal [facility] Comment on above: Order Comment: Name Collection Type:: Clean-Voided Midstream Performed By: #### A NA, C4, C3, CH50 #### [facility] , #### CRP, CREAT, ADDONUAPLUS, CUU, ESR, CBC #### [facility] [address] [place] [address] Hyaline Casts,Urine 0-8 Normal 0-8 [facility] Comment on above: Order Comment: Name Collection Type:: Clean-Voided Midstream Result Comment: PERF ORMED BY: [place] [address] PATHOLOGIST HOSPICE ADMINISTRATOR PENG POLO M.D. Performed By: #### A NA, C4, C3, CH50 #### [facility] , #### CRP, CREAT, ADDONUAPLUS, CUU, ESR, CBC #### [address] Ketones Ql (U) Negative Normal Negative [facility] Comment on above: Order Comment: Name Collection Type:: Clean-Voided Midstream Performed By: #### A NA, C4, C3, CH50 #### [facility] , #### CRP, CREAT, ADDONUAPLUS, CUU, ESR, CBC #### [address] Leukocyte esterase Test strip Ql (U) 3+ High Negative [facility] Comment on above: Order Comment: Name Collection Type:: Clean-Voided Midstream Performed By: #### A NA, C4, C3, CH50 #### [facility] , #### CRP, CREAT, ADDONUAPLUS, CUU, ESR, CBC #### [facility] [address] [place] [address] Nitrite,Urine Negative Normal Negative [facility] Comment on above: Order Comment: Name Collection Type:: Clean-Voided Midstream Performed By: #### A NA, C4, C3, CH50 #### [facility] , #### CRP, CREAT, ADDONUAPLUS, CUU, ESR, CBC #### [address] Occult Blood,Urine Negative Normal Negative [facility] Comment on above: Order Comment: Name Collection Type:: Clean-Voided Midstream Performed By: #### A NA, C4, C3, CH50 #### [facility] , #### CRP, CREAT, ADDONUAPLUS, CUU, ESR, CBC #### [address] pH (U) 6.5 [pH] Normal 5.0-9.0 [facility] Comment on above: Order Comment: Name Collection Type:: Clean-Voided Midstream Performed By: #### A NA, C4, C3, CH50 #### [facility] , #### CRP, CREAT, ADDONUAPLUS, CUU, ESR, CBC #### [address] Protein,Urine Negative Normal Negative [facility] Comment on above: Order Comment: Name Collection Type:: Clean-Voided Midstream Performed By: #### A NA, C4, C3, CH50 #### [facility] , #### CRP, CREAT, ADDONUAPLUS, CUU, ESR, CBC #### [address] RBC,Urine 1-2 Normal 0-4 [facility] Comment on above: Order Comment: Name Collection Type:: Clean-Voided Midstream Performed By: #### A NA, C4, C3, CH50 #### [facility] , #### CRP, CREAT, ADDONUAPLUS, CUU, ESR, CBC #### [address] Specificy [place],Urine 1.018 Normal 1.00 1-1.03 0 [facility] Comment on above: Order Comment: Name Collection Type:: Clean-Voided Midstream Performed By: #### A NA, C4, C3, CH50 #### [facility] , #### CRP, CREAT, ADDONUAPLUS, CUU, ESR, CBC #### [address] Squamous Epithelial Cell,Urine 0-1 Normal 0-2 [facility] Comment on above: Order Comment: Name Collection Type:: Clean-Voided Midstream Performed By: #### A NA, C4, C3, CH50 #### [facility] , #### CRP, CREAT, ADDONUAPLUS, CUU, ESR, CBC #### [facility] [address] [place] [address] Urobilinogen,Urine Normal Normal Normal [facility] Comment on above: Order Comment: Name Collection Type:: Clean-Voided Midstream Performed By: #### A NA, C4, C3, CH50 #### [facility] , #### CRP, CREAT, ADDONUAPLUS, CUU, ESR, CBC #### [facility] [address] [place] [address] WBC,Urine 20-49 High 0-4 [facility] Comment on above: Order Comment: Name Collection Type:: Clean-Voided Midstream Performed By: #### A NA, C4, C3, CH50 #### [facility] , #### CRP, CREAT, ADDONUAPLUS, CUU, ESR, CBC #### [facility] [address] [place] [address] Eosinophils Auto (Bld) [#/Vo l]Ordered By: Paresh Tian on 07-16-2022 Eosinophils (Bld) [#/Vol] 0.1 10*3/uL 0.0-0.45 [facility] Eosinophils/100 WBC Auto (Bl d)Ordered By: Paresh Tian on 07-16-2022 Eosinophils/100 WBC (Bld) 1.1 % . [facility] Erythrocyte Sedimentation Ra declan 07-16-2022 ESR (Bld) [Velocity] 45 mm/h High 0-29 [facility] Comment on above: Result Comment: PERF ORMED BY: [place] [address] PATHOLOGIST HOSPICE ADMINISTRATOR PENG POLO M.D. Performed By: #### A NA, C4, C3, CH50 #### [facility] , #### CRP, CREAT, ADDONUAPLUS, CUU, ESR, CBC #### [facility] [address] Erythrocyte distribution wid th Auto (RBC) [Ratio]Ordered By: Paresh Tian on 07-16-2022 Erythrocyte distribution width (RBC) [Ratio] 13.0 % 11.9-15.3 [facility] Erythrocyte sedimentation ra te by Photometric methodOrdered By: Paresh Tian on 07-16-2022 ESR Photometric method (Bld) [Velocity] 45 mm/hr 0-29 [facility] Estimated glomerular filtrat ion rate (GFR) non- AmericanOrdered By: Paresh Tian on 07-16-2022 GFR/1.73 sq M.predicted among non-blacks MDRD (S/P/Bld) [Vol rate/Area] > 60 mL/Min [facility] Hematocrit Auto (Bld) [Volum e fraction]Ordered By: Paresh Tian on 07-16-2022 Hematocrit (Bld) [Volume fraction] 45.3 % 34.0-46.4 [facility] Hemoglobin [Mass/volume] in BloodOrdered By: Paresh Tian on 07-16-2022 Hemoglobin (Bld) [Mass/Vol] 15.2 g/dL 11.8-15.4 [facility] Ketones Auto test strip (U) [Mass/Vol]Ordered By: Paresh Tian on 07-16-2022 Ketones (U) [Mass/Vol] Negative Negative [facility] - UrinalysisOrder ed By: Paresh Tian on 07-16-2022 Hyaline casts LM Ql (Urine sed) 0-8 [LPF] 0-8 [facility] Leukocytes [#/volume] correc scot for nucleated erythrocytes in Blood by Automated counOrdered By: Paresh Tian on 07-16-2022 WBC corrected for nucl RBC Auto (Bld) [#/Vol] 10.4 10*3/uL 3.8-11.6 [facility] Lymphocytes Auto (Bld) [#/Vo l]Ordered By: Paresh Tian on 07-16-2022 Lymphocytes (Bld) [#/Vol] 3.7 10*3/uL 1.00-4.8 [facility] Lymphocytes/100 WBC Auto (Bl d)Ordered By: Paresh Tian on 07-16-2022 Lymphocytes/100 WBC (Bld) 35.0 % . [facility] MCH Auto (RBC) [Entitic mass ]Ordered By: Paresh Tian on 07-16-2022 MCH (RBC) [Entitic mass] 33.8 pg 24.7-34.3 [facility] MCHC Auto (RBC) [Mass/Vol]Or dered By: Paresh Tian on 07-16-2022 MCHC (RBC) [Mass/Vol] 33.6 g/dL 32.0-35.0 [facility] MCV Auto (RBC) [Entitic vol] Ordered By: Paresh Tian on 07-16-2022 MCV (RBC) [Entitic vol] 100.6 fL 80-100 [facility] Mitotic spindle apparatus Ab [Titer] in Serum or Plasma by ImmunofluorescenceOrdered By: Paresh Tian on 07-16-2022 Mitotic spindle apparatus Ab IF [Titer] 1:160 . [facility] Comment on above: ICAP nomenclature: A C-25,26 Monocytes Auto (Bld) [#/Vol] Ordered By: Paresh Tian on 07-16-2022 Monocytes (Bld) [#/Vol] 0.7 10*3/uL 0.0-0.8 [facility] Monocytes/100 WBC Auto (Bld) Ordered By: Paresh Tian on 07-16-2022 Monocytes/100 WBC (Bld) 6.8 % . [facility] Neutrophils Auto (Bld) [#/Vo l]Ordered By: Paresh Tian on 07-16-2022 Neutrophils (Bld) [#/Vol] 5.9 10*3/uL 1.8-7.7 [facility] Neutrophils/100 WBC Auto (Bl d)Ordered By: Paresh Tian on 07-16-2022 Neutrophils/100 WBC (Bld) 56.7 % . [facility] Nitrite Test strip Ql (U)Ord ered By: Paresh Tian on 07-16-2022 Nitrite Ql (U) Negative Negative [facility] No Panel InformationOrdered By: Paresh Tian on 07-16-2022 Anti-Nuclear Antibody Comment 2 See comment . [facility] Comment on above: For more information about Hep-2 cell patterns [employer], the official website for the [employer] on Antinuclear Antibody (ASTER) Patterns (ICAP). --------A positive ASTER result may occur in healthy individuals (lowtiter) or be associated with a variety of diseases. Seeinterpretation chart which is not all inclusive:Pattern Antigen Detected Suggested Disease Association Homogeneous DNA(ds,ss), SLE - High titers Nucleosomes, Histones Drug-induced SLE Speckled Sm, JACKSPOOLER, SCL-70, SLE,MCTD,PSS (diffuse form), SS-A/SS-B Sjogrens Nucleolar SCL-70, PM-1/SCL High titers Scleroderma, PM/DM Centromere Centromere PSS (limited form) w/Crest syndrome variable Nuclear Dot Sp100,[id number]-[id number] Primary Biliary Cirrhosis Nuclear GP210, Primary Biliary CirrhosisMembrane kailyn A,B,C Performed at: [facility] [id number] [place], [place] [id number] Director: Collin Rodriguez PhD, Phone: [phone] Estimated GFR () > 60 mL/Min [facility] Comment on above: GFR estimated refere nce range: According to KDOQI guidelines, <60 ml/min/1.73m2 is sufficient to diagnose a patient with chronic kidney disease. Pharmacy Creatinine Clearance (Chem N/A [facility] Total Complement (CH50) >60 U/mL >41 [facility] Comment on above: Age Male Female 1 [...] to determine out of range values.Performed at: [id number] [place] [place], [place] [id number] Director: Collin Rodriguez PhD, Phone: [phone] Nucleated erythrocytes [Pres ence] in Blood by Automated countOrdered By: Paresh Tian on 07-16-2022 Nucleated RBC Auto Ql (Bld) 0.1 /100{WBC} 0-0.5 [facility] Platelet mean volume Auto (B ld) [Entitic vol]Ordered By: Paresh Tian on 07-16-2022 Platelet mean volume (Bld) [Entitic vol] 8.4 fL 6.3-10.7 [facility] Platelets Auto (Bld) [#/Vol] Ordered By: Paresh Tian on 07-16-2022 Platelets (Bld) [#/Vol] 242 10*3/uL 150-450 [facility] Protein Auto test strip (U) [Mass/Vol]Ordered By: Paresh Tian on 07-16-2022 Protein (U) [Mass/Vol] Negative Negative [facility] RBC Auto (Bld) [#/Vol]Ordere d By: Paresh Tian on 07-16-2022 RBC (Bld) [#/Vol] 4.50 10*6/uL 3.60-5.00 [facility] Serum homogeneous pattern an tinuclear antibody (ASTER) titerOrdered By: Paresh Tian on 07-16-2022 Homogenous nuclear Ab pattern (S) [Titer] N/A [facility] Serum nuclear antibody titer Ordered By: Paresh Tian on 07-16-2022 Nuclear Ab (S) [Titer] Positive . [facility] Comment on above: Negative <1:80 Borde rline 1:80 Positive >1:80 Serum or plasma complement C 3 measurement (mass/volume)Ordered By: Paresh Tian on 07-16-2022 Complement C3 [Mass/Vol] 197 mg/dL 82-167 [facility] Comment on above: Performed at: - [employer] [address] [id number] Director: Collin Rodriguez PhD, Phone: [phone] Serum or plasma complement C 4 measurement (mass/volume)Ordered By: Paresh Tian on 07-16-2022 Complement C4 [Mass/Vol] 42 mg/dL 12-38 [facility] Specific gravity Auto test s trip (U) [Rel density]Ordered By: Paresh Tian on 07-16-2022 Specific gravity (U) [Rel density] 1.018 1.001-1.03 0 [facility] Squamous epithelial cells de tection in urine sediment by light microscopyOrdered By: Paresh Tian on 07-16-2022 Epithelial cells.squamous LM Ql (Urine sed) 0-1 [HPF] 0-2 [facility] Urine Cultureon 07-16-2022 Bacteria identified Cx Nom (U) ORGANISM: Escherichia coli (O:ESCCOL) [place] Count >100,000 Aerobic TARA Charge ([id number]) -- [...] RESISTANT TO ALL B-LACTAM DRUGS. PERFORMED BY: [facility] [place] [address] PATHOLOGIST HOSPICE ADMINISTRATOR PENG POLO M.D. Normal [facility] Comment on above: Performed By: #### A NA, C4, C3, CH50 #### [facility] , #### CRP, CREAT, ADDONUAPLUS, CUU, ESR, CBC #### [facility] [address] [place] [address] [place] Urine bacteria detection by automated methodOrdered By: Paresh Tian on 07-16-2022 Bacteria Auto Ql (U) 4+ None Seen [facility] Urine clarity by refractomet ry automatedOrdered By: Paresh Tian on 07-16-2022 Clarity Refractometry automated (U) Clear Clear [facility] Urine culture routineOrdered By: Paresh Tian on 07-16-2022 Bacteria identified Cx Nom (U) Escherichia coli [facility] Urine glucose measurement by automated test strip (mass/volume)Ordered By: Paresh Tian on 07-16-2022 Glucose Auto test strip (U) [Mass/Vol] Normal mg/dL Normal [facility] Urine hemoglobin detection b y automated test stripOrdered By: Paresh Tian on 07-16-2022 Hemoglobin Auto test strip Ql (U) Negative Negative [facility] Urine leukocyte esterase det ection by automated test stripOrdered By: Paresh Tian on 07-16-2022 Leukocyte esterase Auto test strip Ql (U) 3+ Negative [facility] Urobilinogen Auto test strip (U) [Mass/Vol]Ordered By: Paresh Tian on 07-16-2022 Urobilinogen (U) [Mass/Vol] Normal mg/dL Normal [facility] WBC Auto (Bld) [#/Vol]Ordere d By: Paresh Tian on 07-16-2022 WBC (Bld) [#/Vol] 10.4 10*3/uL 3.8-11.6 [facility] pH Auto test strip (U)Ordere d By: Paresh Tian on 07-16-2022 pH (U) 6.5 [pH] 5.0-9.0 [facility] XR lumbar spine 6V w bending on 07-03-2022 XR lumbar spine 6V w bending [facility] [address] [place] [address] [place] [id number] XRay Report Signed Patient: Kim Hill MR#: [id number] : 1970 Acct:[id number] Age/Sex: 51 / F ADM Date: 07/03/22 Loc: XD Room: Type: [facility] Attending Dr: Aby SIMPSON Copies to: CALVIN [...] Gifford Jr., D.OPancho07/03/2022 3:59 PM Dictation Location: [place] [address] Transcribed By: [facility] 07/03/22 1559 Dictated By: Gary Gifford Jr, DO 07/03/22 1557 Signed By: 07/03/22 1559 [facility] XR HIPS ZEINA [id number] WO PELVISon 05-15-2022 [...] DASHA KHAN Date: 2022-05-15 07:49 Normal [facility]on SARS-CoV-2 (COVID-19) RNA AMBERLY+probe Ql (Unsp spec) Not detected Normal NOT DETECTED [facility] Comment on above: Result Comment: This test is not yet approved or cleared by the [place] FDA. When there are no FDA-approved or cleared tests available, and other criteria are met, FDA can make tests available under an emergency access mechanism called an Emergency Use Authorization (EUA). The EUA for this test is supported by the [place] of Health and Human Service's (HHS's) declaration [...] consistent with SARS-CoV-2. Performed By: #### [facility] #### [facility] [address] [place] [address] Dr. Narendra Jacobsen COVID-19 Positive/NegativeOr dered By: Baljinder Rausch on 01-31-2022 SARS-CoV-2 (COVID-19) N gene AMBERLY+probe Ql (Resp) Negative Negative [facility] Comment on above: Testing for SARS-CoV -2 by RT-PCR This test was developed and its performance characteristics determined by [employer] ([place]) and validated at the [facility]. This test has not been FDA [...] COVID-19 Positive/Negativeon 05-20-2020 COVID-19 Positive/Negative Negative Negative [facility] Comment on above: Testing for SARS-CoV -2 by RT-PCRThis test was developed and its performance characteristics determined by [employer] ([employer]) and validated at the [facility]. This test has not been FDA [...] Otheron 05-20-2020 Coronavirus 2019 PCR Interp N/A [facility] Automated basophil %on 05-14 Basophils/100 WBC (Bld) 0.5 % F [facility] Automated basophil counton 1 07-15-2019 Basophils (Bld) [#/Vol] 0.0 10*3/uL 0.0-0.2 [facility] Automated blood lymphocyte c ount (number/volume)on 05-14-2020 Lymphocytes (Bld) [#/Vol] 2.8 10*3/uL 1.00-4.8 [facility] Automated blood lymphocyte c ount as percentage of total leukocyteson 05-14-2020 Lymphocytes/100 WBC (Bld) 35.0 % [facility] Automated blood monocyte cou nton 05-14-2020 Monocytes (Bld) [#/Vol] 0.6 10*3/uL 0.0-0.8 [facility] Automated blood platelet cou nt (count/volume)on 05-14-2020 Platelets (Bld) [#/Vol] 225 10*3/uL 150-450 [facility] Automated blood platelet jose n volume measurementon 05-14-2020 Platelet mean volume (Bld) [Entitic vol] 8.2 fL 6.3-10.7 [facility] Automated eosinophil %on Eosinophils/100 WBC (Bld) 1.5 % [facility] Automated eosinophil counton 05-14-2020 Eosinophils (Bld) [#/Vol] 0.1 10*3/uL 0.0-0.45 [facility] Automated erythrocyte distri bution width ratioon 05-14-2020 Erythrocyte distribution width (RBC) [Ratio] 12.3 % 11.9-15.3 [facility] Automated erythrocyte mean c orpuscular hemoglobin (mass per erythrocyte)on 05-14-2020 MCH (RBC) [Entitic mass] 35.2 pg 24.7-34.3 [facility] Automated erythrocyte mean c orpuscular hemoglobin concentration measurement (mass/volon 05-14-2020 MCHC (RBC) [Mass/Vol] 34.2 g/dL 32.0-35.0 [facility] Automated erythrocyte mean c orpuscular volumeon 05-14-2020 MCV (RBC) [Entitic vol] 102.9 fL 80-100 F [facility] Automated monocyte %on 05-14 Monocytes/100 WBC (Bld) 7.0 % F [facility] Automated neutrophil %on Neutrophils/100 WBC (Bld) 56.0 % [facility] Blood erythrocytes automated count (number/volume)on 05-14-2020 RBC (Bld) [#/Vol] 4.08 10*6/uL 3.60-5.00 [facility] Blood hemoglobin measurement (mass/volume)on 05-14-2020 Hemoglobin (Bld) [Mass/Vol] 14.3 g/dL 11.8-15.4 [facility] Blood leukocytes automated c ount (number/volume)on 05-14-2020 WBC (Bld) [#/Vol] 7.9 10*3/uL 4.5-11.0 [facility] Blood neutrophil count by au tomated method (number/volume)on 05-14-2020 Neutrophils (Bld) [#/Vol] 4.4 10*3/uL 1.8-7.7 [facility] Estimated glomerular filtrat ion rate (GFR) non- Americanon 05-14-2020 GFR/1.73 sq M predicted among non-blacks MDRD (S/P/Bld) [Vol rate/Area] mL/min/{1.73_m2} [facility] Hematocrit [Volume Fraction] of Blood by Automated counton 05-14-2020 Hematocrit (Bld) [Volume fraction] 41.9 % 34.0-46.4 [facility] Otheron 05-14-2020 GFR/1.73 sq M.predicted MDRD (S/P/Bld) [Vol rate/Area] mL/min/{1.73_m2} [facility] Comment on above: GFR estimated refere nce range: According to KDOQI guidelines, <60 ml/min/1.73m2 is sufficient to diagnose a patient with chronic kidney disease. Nucleated RBC/100 WBC (Bld) [Ratio] 0.1 % 0-0.5 [facility] Creatinine Clearance (Chem N/A [facility] Serum or plasma calcium octavio urement (mass/volume)on 05-14-2020 Calcium [Mass/Vol] 10.1 mg/dL 8.2-10.2 [facility] Serum or plasma chloride jose surement (moles/volume)on 05-14-2020 Chloride [Moles/Vol] 101 mmol/L 95-114 [facility] Serum or plasma creatinine m easurement with calculation of estimated glomerular filtron 05-14-2020 Creatinine [Mass/Vol] 0.60 mg/dL 0.44-1.03 [facility] Serum or plasma glucose octavio urement (mass/volume)on 05-14-2020 Glucose [Mass/Vol] 94 mg/dL 70-100 [facility] Comment on above: ADA recommended refe rence rangeRandom Glucose Reference Range is dependent on time and content of last meal. Glucose of more than 200 mg/dL in a nonstressed, ambulatory subject supports the diagnosis of Diabetes Mellitus. Serum or plasma potassium me asurement (moles/volume)on 05-14-2020 Potassium [Moles/Vol] 4.3 mmol/L 3.5-5.1 [facility] Serum or plasma sodium measu rement (moles/volume)on 05-14-2020 Sodium [Moles/Vol] 140 mmol/L 136-146 [facility] Serum or plasma total carbon dioxide measurement (moles/volume)on 05-14-2020 CO2 [Moles/Vol] 27.2 mmol/L 22.0-30.0 [facility] Serum or plasma urea nitroge n measurement (mass/volume)on 05-14-2020 Urea nitrogen [Mass/Vol] 7 mg/dL 9- [facility] Vital Signs Date Time Vital Sign Value Performing Clinician Facility 08-17-2022 16:00-0400 Body height 160.02 cm Gina Blades Other [employer] Other 08-17-2022 16:00-0400 Body mass index (BMI) [Ratio] 40.56 kg/m2 Gina Blades Other [employer] Other 08-17-2022 16:00-0400 Body weight 103.87 kg Gina Blades Other [employer] Other 08-17-2022 16:00-0400 Diastolic blood pressure 82 mm[Hg] Gina Blades Other [employer] Other 08-17-2022 16:00-0400 Systolic blood pressure 126 mm[Hg] Gina Blades Other [employer] Other Encounters Encounter Date Encounter Type Care Provider Facility Start: 10-27-2022 ambulatory NARENDRANATH LAKSHMIPATHY . Facility:[facility] Start: 10-13-2022 End: 10-13-2022 ambulatory NARENDRANATH LAKSHMIPATHY . Facility:[facility] Start: 10-06-2022 End: 10-07-2022 ambulatory NARENDRANATH LAKSHMIPATHY . Facility:[facility] Start: 09-08-2022 End: 09-08-2022 ambulatory Gina Blades Other [facility] [employer] Other Start: 09-08-2022 Telephone encounter Gina Tobiass [facility] Start: 09-01-2022 End: 09-02-2022 ambulatory NARENDRANATH LAKSHMIPATHY . Facility: Start: 08-17-2022 End: 08-17-2022 ambulatory Gina Guerrero Facility:[facility] Start: 08-17-2022 End: 08-17-2022 Patient encounter procedure DO Roberto Roth Work Phone: [facility] [place] Work Phone: Start: 08-17-2022 End: 08-17-2022 ambulatory DO Roberto Roth Work Phone: [facility] Work Phone: Start: 08-17-2022 Office outpatient ne w 45 minutes [address]ina Blades [facility] Start: 07-16-2022 End: 07-16-2022 ambulatory Paresh Haladay Facility:[facility] Start: 07-16-2022 End: 07-17-2022 ambulatory DO Roberto Roth Work Phone: [facility] Work Phone: Start: 07-16-2022 End: 07-16-2022 Patient encounter procedure DO Roberto Roth Work Phone: [facility] [address] Work Phone: Start: 07-03-2022 End: 07-03-2022 ambulatory Aby Eisenstein Facility:[facility] Start: 07-03-2022 End: 07-03-2022 ambulatory DO Roberto Roth Work Phone: [facility] Work Phone: Start: 07-03-2022 End: 07-03-2022 Patient encounter procedure DO Roberto Roth Work Phone: [facility] [address] [place] Work Phone: Start: 06-23-2022 End: 06-23-[address] HOOD RAUSCH . Facility:[facility] Start: 05-29-2022 End: 05-30-[address] HOOD RAUSCH . Facility:[facility] Start: 05-14-2022 End: 05-15-2022 ambulatory ADA SINGH . Facility:[facility] Start: 03-12-2022 End: 03-13-[address] HOOD RAUSCH . Facility:[facility] Start: 02-13-2022 Encounter for preprocedural laboratory examination DR HOOD RAUSCH . [facility] Start: 02-10-2022 End: 02-10-[address] HOOD RAUSCH . Facility:[facility] Start: 02-06-2022 End: 02-07-[address] HOOD RAUSCH . Facility:[facility] Start: 02-06-2022 End: 02-07-2022 Encounter for preprocedural laboratory examination DR HOOD RAUSCH . Facility:[facility] Start: 02-03-2022 End: 02-03-[address] HOOD RAUSCH . Facility:[facility] Start: 01-31-2022 End: 01-31-2022 Patient encounter procedure DO Roberto Roth Work Phone: [facility] Start: 01-16-[address] HOOD RAUSCH . Faci lity:[facility] Start: 01-07-2022 End: 01-08-[address] HOOD RAUSCH . Facility:[facility] Start: 05-20-2020 End: 05-20-2020 Patient encounter procedure Roberto Roth -Pre-Surgical Testing Start: 05-14-2020 End: 05-14-2020 Patient encounter procedure Roberto Roth -Pre-Surgical Testing Start: 04-26-2020 End: 04-26-2020 Patient encounter procedure Roberto Roth -XRay [facility] Procedures Date Procedure Procedure Detail Performing [...] XR hi p RT min 2V(w/wo pelvis)* [facility] Start: 08-17-2022 XR Hip - right 2 Views [facility] Start: 07-16-2022 Bacteria identified in Urine by Culture [facility] Start: 07-16-2022 Hemolytic complement CH50 level [facility] Start: 07-16-2022 [facility] Complement C3 [Mass/volume] in Serum or Plasma [facility] Complement C4 [Mass/volume] in Serum or Plasma [facility] Homogenous nuclear A b pattern [Titer] in Serum [facility] Nuclear Ab [Titer] i n Serum [facility] Immunizations Immunization Date Immunization Notes Care Provider Fa cility 11-09-2020 COVID-19 mRNA-1273 (Moderna) DO Roberto Roth Work Phone: [facility] 10-12-2020 COVID-19 mRNA-1273 (Moderna) DO Roberto Roth Work Phone: [facility] 05-23-2020 influenza, injectabl e, quadrivalent, preservative free DO Roberto Roth Work Phone: [facility] Payers Date Payer Category Payer Self-pay [id number] 1970 Unknown [id number] 2.16.84 [id number] 1970 Unknown [id number] .16.84 0.1.951482.3.579.2.59 1970 Unknown [id number] .16.84 0.1.268795.3.579.2.593 1968 Unknown [id number] .16.84 0.1.910172.3.579.2.593 1968 Unknown [id number] .16.84 0.1.006296.3.579.2.593 1968 Unknown [id number] 2.16.84 0.1.002180.3.579.2.593 1970 Unknown [id number] 2.16.84 0.1.013689.3.579.2.593 1970 Unknown [id number] 2.16.84 0.1.260522.3.579.2.593 1968 Unknown [id number] 2.16.84 0.1.166848.3.579.2.593 1968 Unknown [id number] 2.16.84 0.1.551411.3.579.2.593 1968 Unknown [id number] 2.16.84 0.1.576215.3.579.2.593 1968 Unknown [id number] 2.16.84 0.1.499784.3.579.2.593 1968 Unknown [id number] 2.16.84 0.1.131575.3.579.2.593 1968 Unknown [id number] 2.16.84 0.1.505251.3.579.2.593 1968 Unknown [id number] 2.16.84 0.1.495957.3.579.2.593 1959 Unknown [id number] Unknown [id number] Unknown [id number] .16.8 40.1.426198.3.579.2.531 Unknown [id number] .16.8 40.1.007879.3.579.2.531 Unknown [id number] .16.8 40.1.035531.3.579.2.531 Social History Date Type Detail Facility Start: 05-14-2020 End: 06-23-2021 Tobacco smoking status HIIS Smoker (finding) [facility] Start: 1970 Sex Assigned At Female F [facility] Start: 06-23-1987 History of tobacco use [facility] Work Phone: Medical Equipment Procedure Code Equipment Code Equipment Origin al Text Equipment Identifier Dates Fusion, spine, lumbar, XLIF CANCELLOUS COARSE 7.5CC FDA Start: 05-22-2020 Fusion, spine, lumbar, XLIF Bone-screw internal spinal fixation system, non-sterile ()[id number] FDA Start: 05-22-2020 Fusion, spine, lumbar, XLIF Bone-screw internal spinal fixation system, non-sterile ()[id number] FDA Start: 05-22-2020 Fusion, spine, lumbar, XLIF Bone-screw internal spinal fixation system, non-sterile ()[id number] FDA Start: 05-22-2020 Fusion, spine, lumbar, XLIF CANCELLOUS COARSE 7.5CC FDA Start: 05-22-2020 Fusion, spine, lumbar, XLIF Bone-screw internal spinal fixation system, non-sterile ()[id number] FDA Start: 05-22-2020 Fusion, spine, lumbar, XLIF Bone-screw internal spinal fixation system, non-sterile ()[id number] FDA Start: 05-22-2020 Fusion, spine, lumbar, XLIF Polymeric spinal fusion cage, non-sterile ()[id number] FDA Start: 05-22-2020 Fusion, spine, lumbar, XLIF Dura mater graft, bovine ()[id number] FDA Start: 05-22-2020 Fusion, spine, lumbar, XLIF MAS REDUCTION FIXATION ADD LEV FDA Start: 05-22-2020 Fusion, spine, lumbar, XLIF XLIF 1 LEVEL MAS REDUCTION FDA Start: 05-22-2020 Fusion, spine, lumbar, XLIF Spinal fusion graft kit ()[id number] FDA Start: 05-22-2020 Fusion, spine, lumbar, XLIF Bone matrix implant, human-derived ()[id number] FDA Start: 05-22-2020 Fusion, spine, lumbar, XLIF Metallic spinal fusion cage, non-sterile ()[id number] FDA Start: 05-22-2020 Fusion, spine, lumbar, XLIF Bone-screw internal spinal fixation system, non-sterile ()[id number] FDA Start: 05-22-2020 Fusion, spine, lumbar, XLIF [...] pill b.i.d. and to continue to use Beaver 7.5 mg t.i.d. We did reduce the use at her last visit from 90 pills a month to 80 pills to last one month's time. She appears to be tolerating this transition quite well. I have asked her to continue with gabapentin 600 mg t.i.d. Her JOYCE on today's visit is 28. She reports the Beaver does improve her quality of life, level of functioning and sleep pattern, and she denies any side effects. As part of providing excellent, safe, comprehensive care, the following was completed at our patient's visit: 1. A medication reconciliation and review to ensure accurate knowledge of current/active medications, including asking our patients to inform us about any govs-pkg-llnchzf medications or herbal remedies/nutritional supplements/alternative remedies. 2. [...] options with their primary care provider. [facility] 09-01-2022 Note CONSULTATION CONSULTATION DATE: 09/01/2022 [...] our patients to inform us about any otpa-emy-hqhtvpy medications or herbal remedies/nutritional supplements/alternative remedies. 2. [...] options with their primary care provider. [facility] 08-17-2022 Evaluation note Encounter Date Diagnosis Assessment Notes Jul, Other chronic pain (ICD-10 - G89.29) Jul, Low back pain, unspecified (ICD-10 - M54.50) [employer] Other 02-16-2023 NoteCONSULTATION CONSULTATION DATE: 07/16/2022 HISTORY OF PRESENT ILLNESS: This is a 51-year-old female who returns to the clinic status post bilateral SI joint injection completed on 06/23/2022. The patient received 80% relief for one day and on day two felt worse than her normal baseline pain. Today, she rates her pain 8/10. Medications include gabapentin 600 mg t.i.d., Beaver 7.5/325 b.i.d. and Mobic 15 mg daily. [...] her medications; Mobic 15 mg daily and Beaver 7.5/325 b.i.d. She will return to the clinic in six weeks' time, in which we will, in addition to her PCPs office, review the MRI and form a plan of care at that time. Patient is in agreement to this plan.[id number] Note CONSULTATION CONSULTATION DATE: 05/29/2022 HISTORY OF [...] down. Medications include gabapentin 600 mg t.i.d., Beaver 7.5/325 b.i.d. and diclofenac 50 mg daily. [...] care and will be followed up thereafter.[facility] [id number] NoteCONSULTATION CONSULTATION DATE: 05/14/2022 HISTORY OF PRESENT [...] as well as gabapentin 600 mg t.i.d., Beaver 7.5/325 t.i.d. At her last appointment, she [...] Refills for gabapentin 600 mg t.i.d. and Beaver 7.5/325 b.i.d. will be sent to her pharmacy. Patient agrees to move forward with the procedure. She will followed up in the clinic thereafter.[facility] [id number] NotePAIN MANAGEMENT CONSULTATION CONSULTATION DATE: 05/14/2022 CHIEF [...] with a sacroiliac joint injection under fluoroscopy.[facility] [id number] NoteCONSULTATION CONSULTATION DATE: 03/12/2022 ADDENDUM DIAGNOSIS: Lumbar spondylosis, lumbar degenerative disc disease, chronic lower back pain and a history of a lumbar fusion.[facility] [id number] Note CONSULTATION CONSULTATION DATE: 03/12/2022 This is [...] Current medications include gabapentin 600 mg t.i.d., Beaver 7.5/325 b.i.d., diclofenac cream and ibuprofen. She [...] with her vitamins as well as her Beaver. The dose of frequency will not be changed. We will have the patient return to the clinic in two months' time for re-evaluation. The patient is inquiring about an increase of her Beaver, possibly during the winter months. There will be no changes today.[facility] [id number] NoteCONSULTATION CONSULTATION DATE: 01/07/2022 This is a [...] Current medications include gabapentin 600 mg b.i.d., Beaver 7.5/325 b.i.d., diclofenac topical, multivitamin regimen and ibuprofen p.r.n. She has tried diclofenac in the past but was unable to tolerate it due to stomach issues but low-dose ibuprofen she can tolerate. She is needing Beaver and gabapentin refill today. REVIEW OF SYSTEMS, [...] subsequently move to the left. Refill for Beaver 7.5/325 b.i.d. and gabapentin 600 mg b.i.d. will be sent to the pharmacy. The patient is encouraged to increase magnesium in her vitamin regimen as well as menthol heat rub, seated stretches that were demonstrated and heat application. The patient agrees with the plan of care and would like to move forward and she will follow-up in the clinic post procedure.[facility] noteNo assessment information availableC[facility] Work Phone: Evaluation noteNo InformationNortBarix [facility] [employer] Other History general Narrative - Reported* Type [...] see above Hospitalization History [address] [facility] [employer] Other Advance Directives No Advanced Directives Records [...] section and content) DATE CREATED AUTHOR 08/01/2022 [facility] dical Specialist DATE CREATED AUTHOR AUTHOR'S ORGANIZ ATION 11/06/2022 [facility] DATE CREATED AUTHOR AUTHOR'S ORGANIZ ATION 02/04/2023 [facility] REASON FOR VISIT (unrecogniz ed section and [...] BE BASED ON THE PRIMARY CLINICAL RECORDS. [employer] provides no warranty or guarantee of the accuracy or completeness of information in this document.
--- NOTE | 2023-09-22 08:05 | PM.CN ---
Consult Note: HPI Data of Consult Patient: known to practice within the last 3 years Requesting Physician: Day Fleming NP Primary Care Provider: Non-Staff Physician, MD Consult Narrative Reason for consult: f/u Narrative: Kim Hill a pleasant 52 year old female presents to office for evaluation of chronic low back and right buttock pain, post lumbar fusion L4-5 L5-S1. Patient rating pain today 3/10 increasing to 10/10 with standing and activity. Patient finds mild to moderate benefit with norco 7.5-325mg TID PRN, gabapentin 600mg TID, baclofen 10mg BID, mobic 15mg daily without side effects. . Pt has a hx of multilevel lumbar fusion 3 years ago. Recently completed lumbar MRI consistent with neuroforaminal stenosis. Patient would like to discuss injection therapy options for chronic low back pain with radiculopathy failed PT/HEP greater than 6 weeks and conservative medications. Patient unable to work due to severe pain and decline in functional ability. cc:: CC: Day Fleming NP Review of Systems ROS Status of ROS 10 or more systems reviewed and unremarkable except as noted in history and below Musculoskeletal Reports: back pain and joint pain PFSH PFSH Medical History Osteoarthritis ?M19.90 - Unspecified osteoarthritis, unspecified site (ICD-10) Rheumatoid arthritis ?M06.9 - Rheumatoid arthritis, unspecified (ICD-10) Anxiety ?F41.9 - Anxiety disorder, unspecified (ICD-10) Acid reflux ?K21.9 - Gastro-esophageal reflux disease without esophagitis (ICD-10) Smoker ?F17.200 - Nicotine dependence, unspecified, uncomplicated (ICD-10) Asthma ?J45.909 - Unspecified asthma, uncomplicated (ICD-10) Heart murmur ?R01.1 - Cardiac murmur, unspecified (ICD-10) HTN (hypertension) ?I10 - Essential (primary) hypertension (ICD-10) Surgical History History of lymph node excision ?Z98.890 - Other specified postprocedural states (ICD-10) History of hysterectomy ?Z90.710 - Acquired absence of both cervix and uterus (ICD-10) History of lumbar fusion ?Z98.1 - Arthrodesis status (ICD-10) Meds Home Medications and Allergies Home Medications ?Medication ?Instructions ?Recorded ?Confirmed ?Type PRO AIR 11/12/22 History VITAMIN C DAILY 11/12/22 History baclofen 10 mg tablet 10 mg PO TID 11/12/22 04/20/23 History cholecalciferol (vit D3) 1,000 1 tab PO DAILY 11/12/22 04/20/23 History unit-vitamin K2 (MK4) 100 mcg tablet (K2 Plus D3) gabapentin 600 mg tablet 600 mg PO TID 11/12/22 04/20/23 History hydrocodone 5 mg-acetaminophen 325 1 tab PO TID 11/12/22 04/20/23 History mg tablet krill 1,000 mg-omega-3 170 mg-dha 1 cap PO DAILY 11/12/22 04/20/23 History 50 mg-epa 80 vv-euogst-wvfga capsule (krill oil) lisinopril 10 mg tablet 10 mg PO DAILY 11/12/22 04/20/23 History meloxicam 15 mg tablet 15 mg PO DAILY 11/12/22 04/20/23 History omega 3-aao-fka-fish oil 1,200 mg cap PO 11/12/22 History (144 mg-216 mg) capsule (Fish Oil) omeprazole 20 mg capsule,delayed 20 mg PO DAILY 11/12/22 04/20/23 History release umeclidinium 62.5 mcg-vilanterol 1 inh inhalation DAILY 11/12/22 04/20/23 History 25 mcg/actuation powdr for inhalation (Anoro Ellipta) hydrocodone 7.5 mg-acetaminophen 1 tab PO TID PRN pain #80 tabs 03/01/23 03/16/23 Rx 325 mg tablet hydrocodone 7.5 mg-acetaminophen 1 tab PO TID PRN pain #90 tabs 03/30/23 Rx 325 mg tablet hydrocodone 7.5 mg-acetaminophen 1 tab PO TID PRN pain #80 tabs 04/02/23 Rx 325 mg tablet hydrocodone 7.5 mg-acetaminophen 1 tab PO TID PRN pain #80 tabs 04/13/23 Rx 325 mg tablet hydrocodone 7.5 mg-acetaminophen 1 tab PO TID PRN pain #80 tabs 05/20/23 Rx 325 mg tablet hydrocodone 7.5 mg-acetaminophen 1 tab PO TID PRN pain #80 tabs 06/17/23 Rx 325 mg tablet hydrocodone 7.5 mg-acetaminophen 1 tab PO Q8H PRN pain #90 tabs 07/14/23 Rx 325 mg tablet gabapentin 600 mg tablet 600 mg PO TID #90 tabs 08/17/23 Rx hydrocodone 7.5 mg-acetaminophen 1 tab PO TID #90 tabs 08/17/23 Rx 325 mg tablet hydrocodone 7.5 mg-acetaminophen 1 tab PO Q8H PRN pain #90 tabs 09/16/23 Rx 325 mg tablet Allergies Allergy/AdvReac Type Severity Reaction Status Date / Time amoxicillin [From Augmentin] Allergy Unknown Verified 08/31/23 08:53 clavulanic acid Allergy Unknown Verified 08/31/23 08:53 [From Augmentin] Penicillins Allergy Unknown Verified 08/31/23 08:53 Exam Constitutional Documenting provider has reviewed patient's vital signs: yes Common normals: no apparent distress, oriented x3, healthy appearing, alert and well nourished General appearance: cooperative HENMT Common normals: normocephalic, hearing grossly normal bilaterally and moist oral mucous membranes Head and scalp: normocephalic Eye Common normals: PERRL Pupil: PERRL Neck & C-Spine Common normals: full ROM General: normal visual inspection Cervical spine: pain with cervical ROM and paracervical muscle tenderness Other: intermittent radiculopathy to bilateral hands right greater than left Chest Common normals: inspection of chest normal Respiratory Common normals: normal respiratory effort, no retractions and no use of accessory muscles Back & Pelvis Lumbar spine/lower back: ROM limited, pain with ROM and straight leg raise positive right Sacroiliac joints: SI joint(s) abnormal (right positive beto, fadir, thigh thrust, gaenslens ) Other: decreased sensation in RLE following L3-4, L5-S1 dermatomal pattern weakness to BLE 4/5 LLE 4/5 in RLE Extremity Common normals: normal to inspection and full ROM Neuro Common normals: oriented x3, CN's II-XII intact bilaterally, moves all extremities, no focal motor deficits, no sensory deficits noted and deep tendon reflexes 2+ bilaterally Sensorium/orientation: alert Gait (neuro): antalgic Motor exam: no movement abnormalities noted and strength abnormal Psych Common normals: mental status grossly normal, thought process normal, cooperative, affect normal, speech normal and activity/motor behavior normal Speech: normal speech Thought process: normal thought process Results Imaging Lumbar MRI: Radiologist's impression: There is status post posterior fusion of L4-L5 and L5-S1 with spacer insertion at the level of L4-5 causing magnetic susceptibility artifact that decreases the sensitivity of this study. Please note that MRI is not sensitive for evaluation of hardware. There is normal physiologic lumbar lordosis. The vertebral height is preserved. The conus medullaris is at the level of L1. No signal abnormality within the visualized spinal cord is noted. No neural foraminal narrowing or canal stenoses at the level of T12-L1 and L1-L2 is noted. At the level of L2-L3, there are disc bulge with superimposed right neuroforaminal disc protrusion with mild right neuroforaminal narrowing and no canal stenosis. At the level of L3-4, there are disc bulge with superimposed right neuroforaminal disc protrusion with minimal right neuroforaminal narrowing and no canal stenosis. At the level of L4-5, there are disc bulge with no neuroforaminal narrowing and no canal stenosis. At the level of L5-S1, there are disc bulge with mild to moderate bilateral neuroforaminal narrowing and no canal stenosis. Additional Findings Additional findings: If on a controlled substance or opioids, I have checked an [place] report on this patient and there are no aberrancies noted in the prescribing history.??If on a controlled substance or opioid a drug screen was completed and reviewed within the last year, and if there has not been a drug screen completed we ordered one today to monitor higher risk, state monitored pain medication use. As part of providing excellent, safe, comprehensive care, the following was completed at our patient's visit: 1. A medication reconciliation and review to ensure accurate knowledge of current/active medications, including asking our patients to inform us about any [id number] medications or herbal remedies/nutritional supplements/alternative remedies. 2. A review to specifically ensure our patients have had annual screening for screening for depression, screening for tobacco use, and screening for unhealthy alcohol use. For concerning screenings had a discussion with the patient, provided patient education, and recommended follow-up with primary care provider when appropriate. If patient noted with a risk of falling, they received education on strength, gait, and balance training to prevent future risk of falling. Assessment and Plan Assessment and Plan (1) Lumbar stenosis with neurogenic claudication: (2) Sacroiliitis: (3) Muscle atrophy: (4) Failed back syndrome: (5) Lumbar radiculopathy: (6) Chronic prescription opiate use: Assessment and Plan: I feel these medications are improving the patient's quality of life and allow them to tolerate activities of daily living as well as participate in recreational activity.? The patient does not report intolerable side effects. The patient is NOT opioid naive and non-pharmacologic and non-opioid treatment has failed to significantly relieve the patient's pain and improve functionality. The patient has a diagnosis that is related to a somatic or visceral pain etiology. ? ?? I reviewed with the patient the potential risks and side effects with the use of? opioid medications including but not limited to respiratory depression,? sedation, and even . I verified the patient has access to naloxone should? these effects occur. I advised the patient to avoid the use of any other? sedation substances including alcohol, THC, and benzodiazepines while? taking opioid medications due to the risk of compounding side effects and? detrimental outcomes. I reviewed the [employer], pain treatment agreement, urine? drug screen, and opioid start talking forms. The patient was advised to let? their family know they had Naloxone in case they would need to administer? the medication.? ?? A drug screen was completed within the last year, and no aberrancies were noted regarding their use of controlled substances. The patient understands they are subject to the terms and conditions of the pain contract that they have signed. ? ?? I have checked an [place]AR[place] report on this patient today and there are no aberrancies noted in the prescribing history.? The patient was advised that U[place]. Food and Drug Administration (FDA) is warning that respiratory depression may occur in patients using gabapentin (Neurontin, Gralise, Horizant) or pregabalin (Lyrica, Lyrica CR) who have respiratory risk factors. These include the use of opioid pain medicines and other drugs that depress the central nervous system, and conditions such as chronic obstructive pulmonary disease (COPD) that reduce lung function. The elderly are also at higher risk.? Plan lumbar MRI reviewed with patient right L3-4 L5-S1 TFESI under fluoroscopy with Dr Mosqueda, risks vs benefits reviewed right nerve block of SIJ under fluoroscopy with Dr Mosqueda, risks vs benefits reviewed cannot tolerate higher doses of gabapentin, continue 600mg TID continue baclofen 10mg BID PRN continue mobic 15mg qd, denies side effects. risks vs benefits of chronic NSAIDs and potential side effects reviewed continue norco 7.5-325mg TID PRN moderate to severe pain, finds functional improvement without side effects katherinean discussed and previously prescribed TENS for myofascial pain/spasms and muscle atrophy, refer to PT for core strengthening when pain improved f/u 2 weeks after injection therapy completed
== END 2023-09-22 07:52 | disposition home or self-care (01) ==
PROVIDERS: Visit Provider Nurse Practitioner
DX: M48.062 Spinal stenosis, lumbar region with neurogenic claudication (principal); M46.1 Sacroiliitis, not elsewhere classified; M62.50 Muscle wasting and atrophy, not elsewhere classified, unspecified site; M54.16 Radiculopathy, lumbar region; Z79.891 Long term (current) use of opiate analgesic
CPT/HCPCS: G0463

== ENCOUNTER 2023-10-04 09:20 | Day surgery (SDC) | payer BC, SELFPAY ==
[2023-10-04 09:25] VITALS: BP 138/86; PULSE 100; TEMP 36.8; O2SAT 99
--- OUTSIDE RECORDS SUMMARY | 2023-10-04 09:43 | XMS_ITS | CCD ---
Author Organization [facility] Care Team Providers Care [employer] Name Role Phone Roberto Roth Primary Care Provider Justice Cruz Attending Provider DO Roberto Roth Primary Care Provider [phone] MD Hood Rausch Attending Provider DO Roberto Roth Primary Care Provider CALVIN Yu Attending Provider MD Paresh Tian Attending Provider Roth, DO Mejia Primary Care Provider CALVIN Yu Attending Provider [phone] MD Paresh Tian Attending Provider MD Gina [...] ROTH, DR ROBERTO Bhakta Primary Care Unavailable ALLENWOOD, DR DASHA Gomez Consulting Unavailable SINGH ., [...] Paresh Tian Attending Unavailable Roberto Roth Primary [facility] Unavailable Gina Guerrero Admitting Unavailable Gina Guerrero Attending Unavailable Roberto Roth Primary [facility] Unavailable Unavailable Unavailable Unavailable Allergies Allergy Classification Reported Allergen(s) Allergy Type Date of Onset Reaction(s) Facility (6 sources) Amoxicillin; Translations: [amoxicillin] Drug Allergy 0 [facility] (7 sources) Penicillins; Translations: [Penicillins] Propensity to adverse reactions 4 Nausea [facility] (6 sources) clavulanic acid; Translations: [clavulanic acid] Propensity to adverse reactions 0 [facility] (3 sources) Amoxicillin / Clavulanate; Translations: [Augmentin] Drug Allergy 4 Unknown [facility] (2 sources) Azithromycin Drug Allergy diarrhea [facility] Other (2 sources) Penicillin G Drug Allergy Unknown [facility] Other Medications Current Medications Medication Drug Class(es) Dates Sig (Normalized) Sig (Original) acetaminophen 500 mg oral tablet (4 sources) Start: 05-31-2020 take 500 mg by mouth every four hours Acetaminophen Active 500 MG PO Q4H 100 May 31, 2020 1:00am [id number] 200 actuat albuterol 0.09 mg/actuat metered dose [...] by mouth three times daily Hydrocodone-Acetami nophen (Sunburst) 5-325 mg Tablet Discontinued 1 TAB PO Three times daily March 18, 2019 12:00am May 23, 2020 4:59pm Sunburst Active azithromycin 250 mg oral tablet (4 [...] sources) High risk drug monitoring status; 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 08/18/22 1001 Dictated By: Tate Alva II, MD 08/18/22 0957 Signed By: 08/18/22 1001 [facility] MRI Lumbar Spine w/o + w/on [...] by Justice Lucas on 07/31/2022 0915 Normal [facility] ASTER Antinuclear Antibodieson 07-16-2022 Antinuclear Abs, IFA Positive Critically abnormal . [facility] Comment on above: Result Comment: Nega tive <1:80 Borderline 1:80 Positive >1:80 Performed By: #### A NA, C4, C3, CH50 #### [facility] , #### CRP, CREAT, ADDONUAPLUS, CUU, ESR, CBC #### [facility] [address] [place] [id number] [facility] Note 1 Normal . [facility] Comment on above: Result Comment: For [...] titers Nucleosomes, Histones Drug-induced SLE Speckled Sm, PLANT ANATOMY TEACHER, SCL-70, SLE,MCTD,PSS (diffuse form), SS-A/SS-B Sjogrens Nucleolar SCL-70, PM-1/SCL High titers Scleroderma, PM/DM Centromere Centromere PSS (limited form) w/Crest syndrome variable Nuclear Dot [id number] Primary Biliary Cirrhosis Nuclear GP210, Primary Biliary Cirrhosis Membrane kailyn A,B,C Performed at: [facility] [address] [id number] R Developer: Collin Rodriguez PhD, Phone: [phone] Performed By: #### A NA, C4, C3, CH50 #### [facility] , #### CRP, CREAT, ADDONUAPLUS, CUU, ESR, CBC #### [facility] [address] [place] [address] Spindle Apparatus Pattern 1:160 High . [facility] Comment on above: Result Comment: ICAP nomenclature: [id number] Performed By: #### A NA, C4, C3, CH50 #### [facility] , #### CRP, CREAT, ADDONUAPLUS, CUU, ESR, CBC #### [facility] [address] [place] [address] Automated erythrocytes count in urine sediment (number/area)Ordered By: Paresh Tian on 07-16-2022 RBC Auto (Urine sed) [#/Area] 1-2 [HPF] 0-4 [facility] Automated leukocytes count i n urine sediment (number/area)Ordered By: Paresh Tian on 07-16-2022 WBC Auto (Urine sed) [#/Area] 20-49 [HPF] 0-4 [facility] Basophils Auto (Bld) [#/Vol] Ordered By: Paresh Tian on 07-16-2022 Basophils (Bld) [#/Vol] 0.0 10*3/uL 0.0-0.2 [facility] Basophils/100 WBC Auto (Bld) Ordered By: Paresh Tian on 07-16-2022 Basophils/100 WBC (Bld) 0.4 % . F [facility] Bilirubin Test strip Ql (U)O rdered By: Paresh Tian on 07-16-2022 Bilirubin Ql (U) Negative Negative [facility] C reactive protein [Mass/vol ume] in Serum or PlasmaOrdered By: Paresh Tian on 07-16-2022 CRP [Mass/Vol] 0.8 mg/dL 0.0-1.0 [facility] C-Reactive Proteinon 023 C-Reactive Protein 0.8 mg/dL Normal 0.0-1.0 [facility] Comment on above: Result Comment: PERF ORMED BY: [place] [address] PATHOLOGIST COCKTAIL SERVER PENG POLO M.D. Performed By: #### A NA, C4, C3, CH50 #### [facility] , #### CRP, CREAT, ADDONUAPLUS, CUU, ESR, CBC #### [facility] [address] Color Auto (U)Ordered By: Afia Tian on 07-16-2022 Color (U) Yellow Yellow [facility] Complement C3on 07-16-2022 Complement C3 197 mg/dL High 82-167 [facility] Comment on above: Result Comment: Perf ormed at: - [facility] [address] [id number] R Developer: Collin Rodriguez PhD, Phone: [phone] Performed By: #### A NA, C4, C3, CH50 #### [facility] , #### CRP, CREAT, ADDONUAPLUS, CUU, ESR, CBC #### [facility] [address] [place] [address] Complement C4on 07-16-2022 Complement C4 42 mg/dL High 12-38 [facility] Comment on above: Result Comment: PERF ORMED BY: [place] [address] PATHOLOGIST COCKTAIL SERVER PENG POLO M.D. Performed By: #### A NA, C4, C3, CH50 #### [facility] , #### CRP, CREAT, ADDONUAPLUS, CUU, ESR, CBC #### [address] Complement Total (CH50)on Complement Total (CH50) >60 Normal >[address] [facility] Comment on above: Result Comment: Age Male [...] out of range values. Performed at: - [facility] [id number] R Developer: Collin Rodriguez PhD, Phone: [phone] PERFORMED BY: [place] [address] PATHOLOGIST COCKTAIL SERVER PENG POLO M.D. Performed By: #### A NA, C4, C3, CH50 #### [facility] , #### CRP, CREAT, ADDONUAPLUS, CUU, ESR, CBC #### [address] Complete Blood Count Auto Di ffon 07-16-2022 Basophils (Bld) [#/Vol] 0.0 10*3/uL Normal 0.0-0.2 [facility] Comment on above: Performed By: #### A NA, C4, C3, CH50 #### [facility] , #### CRP, CREAT, ADDONUAPLUS, CUU, ESR, CBC #### [address] Basophils/100 WBC (Bld) 0.4 % Normal . [facility] Comment on above: Performed By: #### A NA, C4, C3, CH50 #### [facility] , #### CRP, CREAT, ADDONUAPLUS, CUU, ESR, CBC #### [address] Eosinophils (Bld) [#/Vol] 0.1 10*3/uL Normal 0.0-0.45 [facility] Comment on above: Performed By: #### A NA, C4, C3, CH50 #### [facility] , #### CRP, CREAT, ADDONUAPLUS, CUU, ESR, CBC #### [address] Eosinophils/100 WBC (Bld) 1.1 % Normal . [facility] Comment on above: Performed By: #### A NA, C4, C3, CH50 #### [facility] , #### CRP, CREAT, ADDONUAPLUS, CUU, ESR, CBC #### [address] Erythrocyte distribution width (RBC) [Ratio] 13.0 % Normal 11.9-15.3 [facility] Comment on above: Performed By: #### A NA, C4, C3, CH50 #### [facility] , #### CRP, CREAT, ADDONUAPLUS, CUU, ESR, CBC #### [address] Hematocrit (Bld) [Volume fraction] 45.3 % Normal 34.0-46.4 [facility] Comment on above: Performed By: #### A NA, C4, C3, CH50 #### [facility] , #### CRP, CREAT, ADDONUAPLUS, CUU, ESR, CBC #### [address] Hemoglobin (Bld) [Mass/Vol] 15.2 g/dL Normal 11.8-15.4 [facility] Comment on above: Performed By: #### A NA, C4, C3, CH50 #### [facility] , #### CRP, CREAT, ADDONUAPLUS, CUU, ESR, CBC #### [address] Lymphocytes (Bld) [#/Vol] 3.7 10*3/uL Normal 1.00-4.8 [facility] Comment on above: Performed By: #### A NA, C4, C3, CH50 #### [facility] , #### CRP, CREAT, ADDONUAPLUS, CUU, ESR, CBC #### [address] Lymphocytes/100 WBC (Bld) 35.0 % Normal . [facility] Comment on above: Performed By: #### A NA, C4, C3, CH50 #### [facility] , #### CRP, CREAT, ADDONUAPLUS, CUU, ESR, CBC #### [address] MCH (RBC) [Entitic mass] 33.8 pg Normal 24.7-34.3 [facility] Comment on above: Performed By: #### A NA, C4, C3, CH50 #### [facility] , #### CRP, CREAT, ADDONUAPLUS, CUU, ESR, CBC #### [address] MCV (RBC) [Entitic vol] 100.6 fL High 80-[address] [facility] Comment on above: Performed By: #### A NA, C4, C3, CH50 #### [facility] , #### CRP, CREAT, ADDONUAPLUS, CUU, ESR, CBC #### [address] Mean Corpuscular HGB Conc 33.6 g/dL Normal 32.0-35.0 [facility] Comment on above: Performed By: #### A NA, C4, C3, CH50 #### [facility] , #### CRP, CREAT, ADDONUAPLUS, CUU, ESR, CBC #### [address] Monocytes (Bld) [#/Vol] 0.7 10*3/uL Normal 0.0-0.8 [facility] Comment on above: Performed By: #### A NA, C4, C3, CH50 #### [facility] , #### CRP, CREAT, ADDONUAPLUS, CUU, ESR, CBC #### [place] [address] [place] Monocytes/100 WBC (Bld) 6.8 % Normal . [facility] Comment on above: Performed By: #### A NA, C4, C3, CH50 #### [facility] , #### CRP, CREAT, ADDONUAPLUS, CUU, ESR, CBC #### [place] [address] [place] Neutrophils (Bld) [#/Vol] 5.9 10*3/uL Normal 1.8-7.7 [facility] Comment on above: Performed By: #### A NA, C4, C3, CH50 #### [facility] , #### CRP, CREAT, ADDONUAPLUS, CUU, ESR, CBC #### [place] [address] [place] Neutrophils/100 WBC (Bld) 56.7 % Normal . [facility] Comment on above: Performed By: #### A NA, C4, C3, CH50 #### [facility] , #### CRP, CREAT, ADDONUAPLUS, CUU, ESR, CBC #### [address] NRBC% 0.1 /100{WBC} Normal 0-0.5 [facility] Comment on above: Performed By: #### A NA, C4, C3, CH50 #### [facility] , #### CRP, CREAT, ADDONUAPLUS, CUU, ESR, CBC #### [address] Platelet mean volume (Bld) [Entitic vol] 8.4 fL Normal 6.3-10.7 [facility] Comment on above: Performed By: #### A NA, C4, C3, CH50 #### [facility] , #### CRP, CREAT, ADDONUAPLUS, CUU, ESR, CBC #### [address] Platelets (Bld) [#/Vol] 242 10*3/uL Normal 150-450 [facility] Comment on above: Performed By: #### A NA, C4, C3, CH50 #### [facility] , #### CRP, CREAT, ADDONUAPLUS, CUU, ESR, CBC #### [address] RBC (Bld) [#/Vol] 4.50 10*6/uL Normal 3.60-5.00 [facility] Comment on above: Performed By: #### A NA, C4, C3, CH50 #### [facility] , #### CRP, CREAT, ADDONUAPLUS, CUU, ESR, CBC #### [address] WBC (Bld) [#/Vol] 10.4 10*3/uL Normal 3.8-11.6 [facility] Comment on above: Performed By: #### A NA, C4, C3, CH50 #### [facility] , #### CRP, CREAT, ADDONUAPLUS, CUU, ESR, CBC #### [address] Creatinineon 07-16-2022 Creatinine [Mass/Vol] 0.74 mg/dL Normal 0.44-1.03 [facility] Comment on above: Performed By: #### A NA, C4, C3, CH50 #### [facility] , #### CRP, CREAT, ADDONUAPLUS, CUU, ESR, CBC #### [address] Estimated GFR ( Sharon > 60 Normal [facility] Comment on above: Result Comment: GFR estimated reference range: According to KDOQI guidelines, <60 ml/min/1.73m2 is sufficient to diagnose a patient with chronic kidney disease. Performed By: #### A NA, C4, C3, CH50 #### [facility] , #### CRP, CREAT, ADDONUAPLUS, CUU, ESR, CBC #### [address] Estimated GFR (Non- Am > 60 Normal [facility] Comment on above: Performed By: #### A NA, C4, C3, CH50 #### [facility] , #### CRP, CREAT, ADDONUAPLUS, CUU, ESR, CBC #### [address] Creatinine and Glomerular fi ltration rate.predicted panel (S/P/Bld)Ordered By: Paresh Tian on 07-16-2022 Creatinine [Mass/Vol] 0.74 mg/dL 0.44-1.03 [facility] Dipstick and Microscopicon 0 07-16-2022 Appearance (U) Clear Normal Clear [facility] Comment on above: Order Comment: Name Collection Type:: Clean-Voided Midstream Performed By: #### A NA, C4, C3, CH50 #### [facility] , #### CRP, CREAT, ADDONUAPLUS, CUU, ESR, CBC #### [facility] [address] [place] [address] Bacteria,Urine 4+ High None Seen [facility] Comment on above: Order Comment: Name Collection Type:: Clean-Voided Midstream Performed By: #### A NA, C4, C3, CH50 #### [facility] , #### CRP, CREAT, ADDONUAPLUS, CUU, ESR, CBC #### [facility] [address] [place] [address] Bilirubin,Urine Negative Normal Negative [facility] Comment on above: Order Comment: Name Collection Type:: Clean-Voided Midstream Performed By: #### A NA, C4, C3, CH50 #### [facility] , #### CRP, CREAT, ADDONUAPLUS, CUU, ESR, CBC #### [facility] [address] [place] [address] [place] Color (U) Yellow Normal Yellow [facility] Comment on above: Order Comment: Name Collection Type:: Clean-Voided Midstream Performed By: #### A NA, C4, C3, CH50 #### [facility] , #### CRP, CREAT, ADDONUAPLUS, CUU, ESR, CBC #### [facility] [address] [place] [address] [place] Glucose Ql (U) Normal Normal Normal [facility] Comment on above: Order Comment: Name Collection Type:: Clean-Voided Midstream Performed By: #### A NA, C4, C3, CH50 #### [facility] , #### CRP, CREAT, ADDONUAPLUS, CUU, ESR, CBC #### [facility] [address] [place] [address] Hyaline Casts,Urine 0-8 Normal 0-8 [facility] Comment on above: Order Comment: Name Collection Type:: Clean-Voided Midstream Result Comment: PERF ORMED BY: [place] [address] PATHOLOGIST COCKTAIL SERVER PENG POLO M.D. Performed By: #### A NA, C4, C3, CH50 #### [facility] , #### CRP, CREAT, ADDONUAPLUS, CUU, ESR, CBC #### [address] Ketones Ql (U) Negative Normal Negative [facility] Comment on above: Order Comment: Name Collection Type:: Clean-Voided Midstream Performed By: #### A NA, C4, C3, CH50 #### [facility] , #### CRP, CREAT, ADDONUAPLUS, CUU, ESR, CBC #### [address] Leukocyte esterase Test strip Ql (U) 3+ High Negative [facility] Comment on above: Order Comment: Name Collection Type:: Clean-Voided Midstream Performed By: #### A NA, C4, C3, CH50 #### [facility] , #### CRP, CREAT, ADDONUAPLUS, CUU, ESR, CBC #### [facility] [address] [place] [address] Nitrite,Urine Negative Normal Negative [facility] Comment on above: Order Comment: Name Collection Type:: Clean-Voided Midstream Performed By: #### A NA, C4, C3, CH50 #### [facility] , #### CRP, CREAT, ADDONUAPLUS, CUU, ESR, CBC #### [address] Occult Blood,Urine Negative Normal Negative [facility] Comment on above: Order Comment: Name Collection Type:: Clean-Voided Midstream Performed By: #### A NA, C4, C3, CH50 #### [facility] , #### CRP, CREAT, ADDONUAPLUS, CUU, ESR, CBC #### [address] pH (U) 6.5 [pH] Normal 5.0-9.0 [facility] Comment on above: Order Comment: Name Collection Type:: Clean-Voided Midstream Performed By: #### A NA, C4, C3, CH50 #### [facility] , #### CRP, CREAT, ADDONUAPLUS, CUU, ESR, CBC #### [address] Protein,Urine Negative Normal Negative [facility] Comment on above: Order Comment: Name Collection Type:: Clean-Voided Midstream Performed By: #### A NA, C4, C3, CH50 #### [facility] , #### CRP, CREAT, ADDONUAPLUS, CUU, ESR, CBC #### [address] RBC,Urine 1-2 Normal 0-4 [facility] Comment on above: Order Comment: Name Collection Type:: Clean-Voided Midstream Performed By: #### A NA, C4, C3, CH50 #### [facility] , #### CRP, CREAT, ADDONUAPLUS, CUU, ESR, CBC #### [address] Specificy Mart,Urine 1.018 Normal 1.00 1-1.03 0 [facility] Comment on above: Order Comment: Name Collection Type:: Clean-Voided Midstream Performed By: #### A NA, C4, C3, CH50 #### [facility] , #### CRP, CREAT, ADDONUAPLUS, CUU, ESR, CBC #### [address] Squamous Epithelial Cell,Urine 0-1 Normal 0-2 [facility] Comment on above: Order Comment: Name Collection Type:: Clean-Voided Midstream Performed By: #### A NA, C4, C3, CH50 #### [facility] , #### CRP, CREAT, ADDONUAPLUS, CUU, ESR, CBC #### [facility] [address] [place] [address] Urobilinogen,Urine Normal Normal Normal [facility] Comment on above: Order Comment: Name Collection Type:: Clean-Voided Midstream Performed By: #### A NA, C4, C3, CH50 #### [facility] , #### CRP, CREAT, ADDONUAPLUS, CUU, ESR, CBC #### [facility] [address] [place] [address] WBC,Urine 20-49 High 0-4 [facility] Comment on above: Order Comment: Name Collection Type:: Clean-Voided Midstream Performed By: #### A NA, C4, C3, CH50 #### [facility] , #### CRP, CREAT, ADDONUAPLUS, CUU, ESR, CBC #### [facility] [address] [place] [address] Eosinophils Auto (Bld) [#/Vo l]Ordered By: Paresh Tian on 07-16-2022 Eosinophils (Bld) [#/Vol] 0.1 10*3/uL 0.0-0.45 [facility] Eosinophils/100 WBC Auto (Bl d)Ordered By: Paresh Tian on 07-16-2022 Eosinophils/100 WBC (Bld) 1.1 % . [facility] Erythrocyte Sedimentation Ra declan 07-16-2022 ESR (Bld) [Velocity] 45 mm/h High 0-29 [facility] Comment on above: Result Comment: PERF ORMED BY: [place] [address] PATHOLOGIST COCKTAIL SERVER PENG POLO M.D. Performed By: #### A NA, C4, C3, CH50 #### [facility] , #### CRP, CREAT, ADDONUAPLUS, CUU, ESR, CBC #### [facility] [address] Erythrocyte distribution wid th Auto (RBC) [Ratio]Ordered By: Paresh Tian on 07-16-2022 Erythrocyte distribution width (RBC) [Ratio] 13.0 % 11.9-15.3 [facility] Erythrocyte sedimentation ra te by Photometric methodOrdered By: Paresh Tian on 07-16-2022 ESR Photometric method (Bld) [Velocity] 45 mm/hr 0-29 [facility] Estimated glomerular filtrat ion rate (GFR) non- AmericanOrdered By: Paresh Tian on 07-16-2022 GFR/1.73 sq M.predicted among non-blacks MDRD (S/P/Bld) [Vol rate/Area] > 60 mL/Min [facility] Hematocrit Auto (Bld) [Volum e fraction]Ordered By: Paresh Tian on 07-16-2022 Hematocrit (Bld) [Volume fraction] 45.3 % 34.0-46.4 [facility] Hemoglobin [Mass/volume] in BloodOrdered By: Paresh Tian on 07-16-2022 Hemoglobin (Bld) [Mass/Vol] 15.2 g/dL 11.8-15.4 [facility] Ketones Auto test strip (U) [Mass/Vol]Ordered By: Paersh Tian on 07-16-2022 Ketones (U) [Mass/Vol] Negative Negative [facility] - UrinalysisOrder ed By: Paresh Tian on 07-16-2022 Hyaline casts LM Ql (Urine sed) 0-8 [LPF] 0-8 [facility] Leukocytes [#/volume] correc scot for nucleated erythrocytes in Blood by Automated counOrdered By: Paresh Tian on 07-16-2022 WBC corrected for nucl RBC Auto (Bld) [#/Vol] 10.4 10*3/uL 3.8-11.6 [facility] Lymphocytes Auto (Bld) [#/Vo l]Ordered By: Paresh Tian on 07-16-2022 Lymphocytes (Bld) [#/Vol] 3.7 10*3/uL 1.00-4.8 [facility] Lymphocytes/100 WBC Auto (Bl d)Ordered By: Paresh Tian on 07-16-2022 Lymphocytes/100 WBC (Bld) 35.0 % . [facility] MCH Auto (RBC) [Entitic mass ]Ordered By: Paresh Tian on 07-16-2022 MCH (RBC) [Entitic mass] 33.8 pg 24.7-34.3 [facility] MCHC Auto (RBC) [Mass/Vol]Or dered By: Paresh Tian on 07-16-2022 MCHC (RBC) [Mass/Vol] 33.6 g/dL 32.0-35.0 [facility] MCV Auto (RBC) [Entitic vol] Ordered By: Paresh Tian on 07-16-2022 MCV (RBC) [Entitic vol] 100.6 fL 80-[address] [facility] Mitotic spindle apparatus Ab [Titer] in Serum or Plasma by ImmunofluorescenceOrdered By: Paresh Tian on 07-16-2022 Mitotic spindle apparatus Ab IF [Titer] 1:160 . [facility] Comment on above: ICAP nomenclature: A C-25,26 Monocytes Auto (Bld) [#/Vol] Ordered By: Paresh Tian on 07-16-2022 Monocytes (Bld) [#/Vol] 0.7 10*3/uL 0.0-0.8 [facility] Monocytes/100 WBC Auto (Bld) Ordered By: Paresh Tian on 07-16-2022 Monocytes/100 WBC (Bld) 6.8 % . [facility] Neutrophils Auto (Bld) [#/Vo l]Ordered By: Paresh Tian on 07-16-2022 Neutrophils (Bld) [#/Vol] 5.9 10*3/uL 1.8-7.7 [facility] Neutrophils/100 WBC Auto (Bl d)Ordered By: Paresh Tian on 07-16-2022 Neutrophils/100 WBC (Bld) 56.7 % . [facility] Nitrite Test strip Ql (U)Ord ered By: Paresh Tian on 07-16-2022 Nitrite Ql (U) Negative Negative [facility] No Panel InformationOrdered By: Paresh Tian on 07-16-2022 Anti-Nuclear Antibody Comment 2 See comment . [facility] Comment on above: For more information about Hep-2 cell patterns [employer], the official website for the [employer] on Antinuclear Antibody (ASTER) Patterns (ICAP). --------A positive ASTER result may occur in healthy individuals (lowtiter) or be associated with a variety of diseases. Seeinterpretation chart which is not all inclusive:Pattern Antigen Detected Suggested Disease Association Homogeneous DNA(ds,ss), SLE - High titers Nucleosomes, Histones Drug-induced SLE Speckled Sm, PLANT ANATOMY TEACHER, SCL-70, SLE,MCTD,PSS (diffuse form), SS-A/SS-B Sjogrens Nucleolar SCL-70, PM-1/SCL High titers Scleroderma, PM/DM Centromere Centromere PSS (limited form) w/Crest syndrome variable Nuclear Dot [id number] Primary Biliary Cirrhosis Nuclear GP210, Primary Biliary CirrhosisMembrane kailyn A,B,C Performed at: [facility] [id number] [place], [place] [id number] Director: Collin Rodriguez PhD, Phone: [phone] Estimated GFR () > 60 mL/Min [facility] Comment on above: GFR estimated refere nce range: According to KDOQI guidelines, <60 ml/min/1.73m2 is sufficient to diagnose a patient with chronic kidney disease. Pharmacy Creatinine Clearance (Chem N/A [facility] Total Complement (CH50) >60 U/mL >[address] [facility] Comment on above: Age Male Female 1 [...] to determine out of range values.Performed at: [facility] [employer] [id number] [place], [place] [id number] Director: Collin Rodriguez PhD, Phone: [phone] Nucleated erythrocytes [Pres ence] in Blood by Automated countOrdered By: Paresh Tian on 07-16-2022 Nucleated RBC Auto Ql (Bld) 0.1 /100{WBC} 0-0.5 [facility] Platelet mean volume Auto (B ld) [Entitic vol]Ordered By: Paresh Tian on 07-16-2022 Platelet mean volume (Bld) [Entitic vol] 8.4 fL 6.3-10.7 [facility] Platelets Auto (Bld) [#/Vol] Ordered By: Paresh Tian on 07-16-2022 Platelets (Bld) [#/Vol] 242 10*3/uL 150-450 [facility] Protein Auto test strip (U) [Mass/Vol]Ordered By: Paresh Tian on 07-16-2022 Protein (U) [Mass/Vol] Negative Negative [facility] RBC Auto (Bld) [#/Vol]Ordere d By: Paresh Tian on 07-16-2022 RBC (Bld) [#/Vol] 4.50 10*6/uL 3.60-5.00 [facility] Serum homogeneous pattern an tinuclear antibody (ASTER) titerOrdered By: Paresh Tian on 07-16-2022 Homogenous nuclear Ab pattern (S) [Titer] N/A [facility] Serum nuclear antibody titer Ordered By: Paresh Tian on 07-16-2022 Nuclear Ab (S) [Titer] Positive . [facility] Comment on above: Negative <1:80 Borde rline 1:80 Positive >1:80 Serum or plasma complement C 3 measurement (mass/volume)Ordered By: Paresh Tian on 07-16-2022 Complement C3 [Mass/Vol] 197 mg/dL 82-167 [facility] Comment on above: Performed at: - [facility] [employer] [address] [id number] Director: Collin Rodriguez PhD, Phone: [phone] Serum or plasma complement C 4 measurement (mass/volume)Ordered By: Paresh Tian on 07-16-2022 Complement C4 [Mass/Vol] 42 mg/dL 12-38 [facility] Specific gravity Auto test s trip (U) [Rel density]Ordered By: Paresh Tian on 07-16-2022 Specific gravity (U) [Rel density] 1.018 1.001-1.03 0 [facility] Squamous epithelial cells de tection in urine sediment by light microscopyOrdered By: Paresh Tian on 07-16-2022 Epithelial cells.squamous LM Ql (Urine sed) 0-1 [HPF] 0-2 [facility] Urine Cultureon 07-16-2022 Bacteria identified Cx Nom (U) ORGANISM: Escherichia coli (O:ESCCOL) [place] Count >100,000 Aerobic TARA Charge ([id number]) -- [...] RESISTANT TO ALL B-LACTAM DRUGS. PERFORMED BY: [facility] [place] [address] PATHOLOGIST [employer]OCKTAIL [employer]ER PENG POLO M.D. Normal [facility] Comment on above: Performed By: #### A NA, C4, C3, CH50 #### [facility] , #### CRP, CREAT, ADDONUAPLUS, CUU, ESR, CBC #### [facility] [address] [place] [address] [place] Urine bacteria detection by automated methodOrdered By: Paresh Tian on 07-16-2022 Bacteria Auto Ql (U) 4+ None Seen [facility] Urine clarity by refractomet ry automatedOrdered By: Paresh Tian on 07-16-2022 Clarity Refractometry automated (U) Clear Clear [facility] Urine culture routineOrdered By: Paresh Tian on 07-16-2022 Bacteria identified Cx Nom (U) Escherichia coli [facility] Urine glucose measurement by automated test strip (mass/volume)Ordered By: Paresh Tian on 07-16-2022 Glucose Auto test strip (U) [Mass/Vol] Normal mg/dL Normal [facility] Urine hemoglobin detection b y automated test stripOrdered By: Paresh Tian on 07-16-2022 Hemoglobin Auto test strip Ql (U) Negative Negative [facility] Urine leukocyte esterase det ection by automated test stripOrdered By: Paresh Tian on 07-16-2022 Leukocyte esterase Auto test strip Ql (U) 3+ Negative [facility] Urobilinogen Auto test strip (U) [Mass/Vol]Ordered By: Paresh Tian on 07-16-2022 Urobilinogen (U) [Mass/Vol] Normal mg/dL Normal [facility] WBC Auto (Bld) [#/Vol]Ordere d By: Paresh Tian on 07-16-2022 WBC (Bld) [#/Vol] 10.4 10*3/uL 3.8-11.6 [facility] pH Auto test strip (U)Ordere d By: Paresh Tian on 07-16-2022 pH (U) 6.5 [pH] 5.0-9.0 [facility] XR lumbar spine 6V w bending on 07-03-2022 XR lumbar spine 6V w bending [facility] [address] [place] [address] [place] [id number] XRay Report Signed Patient: Kim Hill MR#: [id number] : [id number] Acct:[id number] Age/Sex: 51 / F ADM Date: 07/03/22 Loc: XD Room: Type: [facility] Attending Dr: Aby SIMPSON Copies to: CALVIN [...] Gifford Jr., D.OPancho07/03/2022 3:59 PM Dictation Location: [place] [address] Transcribed By: [facility] 07/03/22 1559 Dictated By: Gary Gifford Jr, DO 07/03/22 1557 Signed By: 07/03/22 1559 [facility] XR HIPS ZEINA [id number] WO PELVISon [...] DASHA KHAN Date: 2022-05-15 07:49 Normal [facility] Covid-19 PCR ([facility]on SARS-CoV-2 (COVID-19) RNA AMBERLY+probe Ql (Unsp spec) Not detected Normal NOT DETECTED [facility] Comment on above: Result Comment: This test is not yet approved or cleared by the [place] FDA. When there are no FDA-approved or cleared tests available, and other criteria are met, FDA can make tests available under an emergency access mechanism called an Emergency Use Authorization (EUA). The EUA for this test is supported by the Lace Machine Operator of Health and Human Service's (HHS's) declaration [...] consistent with SARS-CoV-2. Performed By: #### C [facility] #### [facility] [address] [place] [address] Dr. Narendra Jacobsen COVID-19 Positive/NegativeOr dered By: Baljinder Rausch on 01-31-2022 SARS-CoV-2 (COVID-19) N gene AMBERLY+probe Ql (Resp) Negative Negative [facility] Comment on above: Testing for SARS-CoV -2 by RT-PCR This test was developed and its performance characteristics determined by [employer] ([place]) and validated at the [facility]. This test has not been FDA [...] COVID-19 Positive/Negativeon 05-20-2020 COVID-19 Positive/Negative Negative Negative [facility] Comment on above: Testing for SARS-CoV -2 by RT-PCRThis test was developed and its performance characteristics determined by [employer] ([employer]) and validated at the [facility]. This test has not been FDA [...] Otheron 05-20-2020 Coronavirus 2019 PCR Interp N/A [facility] Automated basophil %on 05-14 Basophils/100 WBC (Bld) 0.5 % [facility] Automated basophil counton 1 07-15-2019 Basophils (Bld) [#/Vol] 0.0 10*3/uL 0.0-0.2 [facility] Automated blood lymphocyte c ount (number/volume)on 05-14-2020 Lymphocytes (Bld) [#/Vol] 2.8 10*3/uL 1.00-4.8 [facility] Automated blood lymphocyte c ount as percentage of total leukocyteson 05-14-2020 Lymphocytes/100 WBC (Bld) 35.0 % [facility] Automated blood monocyte cou nton 05-14-2020 Monocytes (Bld) [#/Vol] 0.6 10*3/uL 0.0-0.8 [facility] Automated blood platelet cou nt (count/volume)on 05-14-2020 Platelets (Bld) [#/Vol] 225 10*3/uL 150-450 [facility] Automated blood platelet jose n volume measurementon 05-14-2020 Platelet mean volume (Bld) [Entitic vol] 8.2 fL 6.3-10.7 [facility] Automated eosinophil %on Eosinophils/100 WBC (Bld) 1.5 % [facility] Automated eosinophil counton 05-14-2020 Eosinophils (Bld) [#/Vol] 0.1 10*3/uL 0.0-0.45 [facility] Automated erythrocyte distri bution width ratioon 05-14-2020 Erythrocyte distribution width (RBC) [Ratio] 12.3 % 11.9-15.3 [facility] Automated erythrocyte mean c orpuscular hemoglobin (mass per erythrocyte)on 05-14-2020 MCH (RBC) [Entitic mass] 35.2 pg 24.7-34.3 [facility] Automated erythrocyte mean c orpuscular hemoglobin concentration measurement (mass/volon 05-14-2020 MCHC (RBC) [Mass/Vol] 34.2 g/dL 32.0-35.0 [facility] Automated erythrocyte mean c orpuscular volumeon 05-14-2020 MCV (RBC) [Entitic vol] 102.9 fL 80-100 [facility] Automated monocyte %on 05-14 Monocytes/100 WBC (Bld) 7.0 % [facility] Automated neutrophil %on Neutrophils/100 WBC (Bld) 56.0 % [facility] Blood erythrocytes automated count (number/volume)on 05-14-2020 RBC (Bld) [#/Vol] 4.08 10*6/uL 3.60-5.00 [facility] Blood hemoglobin measurement (mass/volume)on 05-14-2020 Hemoglobin (Bld) [Mass/Vol] 14.3 g/dL 11.8-15.4 [facility] Blood leukocytes automated c ount (number/volume)on 05-14-2020 WBC (Bld) [#/Vol] 7.9 10*3/uL 4.5-11.0 [facility] Blood neutrophil count by au tomated method (number/volume)on 05-14-2020 Neutrophils (Bld) [#/Vol] 4.4 10*3/uL 1.8-7.7 [facility] Estimated glomerular filtrat ion rate (GFR) non- Americanon 05-14-2020 GFR/1.73 sq M predicted among non-blacks MDRD (S/P/Bld) [Vol rate/Area] mL/min/{1.73_m2} [facility] Hematocrit [Volume Fraction] of Blood by Automated counton 05-14-2020 Hematocrit (Bld) [Volume fraction] 41.9 % 34.0-46.4 [facility] Otheron 05-14-2020 GFR/1.73 sq M.predicted MDRD (S/P/Bld) [Vol rate/Area] mL/min/{1.73_m2} [facility] Comment on above: GFR estimated refere nce range: According to KDOQI guidelines, <60 ml/min/1.73m2 is sufficient to diagnose a patient with chronic kidney disease. Nucleated RBC/100 WBC (Bld) [Ratio] 0.1 % 0-0.5 [facility] Creatinine Clearance (Chem N/A [facility] Serum or plasma calcium octavio urement (mass/volume)on 05-14-2020 Calcium [Mass/Vol] 10.1 mg/dL 8.2-10.2 [facility] Serum or plasma chloride jose surement (moles/volume)on 05-14-2020 Chloride [Moles/Vol] 101 mmol/L 95-114 [facility] Serum or plasma creatinine m easurement with calculation of estimated glomerular filtron 05-14-2020 Creatinine [Mass/Vol] 0.60 mg/dL 0.44-1.03 [facility] Serum or plasma glucose octavio urement (mass/volume)on 05-14-2020 Glucose [Mass/Vol] 94 mg/dL 70-100 [facility] Comment on above: ADA recommended refe rence rangeRandom Glucose Reference Range is dependent on time and content of last meal. Glucose of more than 200 mg/dL in a nonstressed, ambulatory subject supports the diagnosis of Diabetes Mellitus. Serum or plasma potassium me asurement (moles/volume)on 05-14-2020 Potassium [Moles/Vol] 4.3 mmol/L 3.5-5.1 [facility] Serum or plasma sodium measu rement (moles/volume)on 05-14-2020 Sodium [Moles/Vol] 140 mmol/L 136-146 [facility] Serum or plasma total carbon dioxide measurement (moles/volume)on 05-14-2020 CO2 [Moles/Vol] 27.2 mmol/L 22.0-30.[address] [facility] Serum or plasma urea nitroge n measurement (mass/volume)on 05-14-2020 Urea nitrogen [Mass/Vol] 7 mg/dL 9- [facility] Vital Signs Date Time Vital Sign Value Performing Clinician Facility 08-17-2022 16:00-0400 Body height 160.02 cm Gina Blades Other [facility] Other 08-17-2022 16:00-0400 Body mass index (BMI) [Ratio] 40.56 kg/m2 Gina Blades Other [facility] Other 08-17-2022 16:00-0400 Body weight 103.87 kg Gina Blades Other [facility] Other 08-17-2022 16:00-0400 Diastolic blood pressure 82 mm[Hg] Gina Blades Other [facility] Other 08-17-2022 16:00-0400 Systolic blood pressure 126 mm[Hg] Gina Blades Other [facility] Other Encounters Encounter Date Encounter Type Care Provider Facility Start: 10-27-2022 ambulatory NARENDRANATH LAKSHMIPATHY . Facility:[facility] Start: 10-13-2022 End: 10-13-2022 ambulatory NARENDRANATH LAKSHMIPATHY . Facility:[facility] Start: 10-06-2022 End: 10-07-2022 ambulatory NARENDRANATH LAKSHMIPATHY . Facility:[facility] Start: 09-08-2022 End: 09-08-2022 ambulatory Gina Blades Other [facility] Other Start: 09-08-2022 Telephone encounter Gina Tobiass [facility] Start: 09-01-2022 End: 09-02-2022 ambulatory NARENDRANATH LAKSHMIPATHY . Facility: Start: 08-17-2022 End: 08-17-2022 ambulatory Gina Guerrero Facility:[facility] Start: 08-17-2022 End: 08-17-2022 Patient encounter procedure DO Roberto Roth Work Phone: [facility] [place] Work Phone: Start: 08-17-2022 End: 08-17-2022 ambulatory DO Roberto Roth Work Phone: [facility] Work Phone: Start: 08-17-2022 Office outpatient ne w 45 minutes Gina Blades [facility] Start: 07-16-2022 End: 07-16-2022 ambulatory Paresh Haladay Facility:[facility] Start: 07-16-2022 End: 07-17-2022 ambulatory DO Roberto Roth Work Phone: [facility] Work Phone: Start: 07-16-2022 End: 07-16-2022 Patient encounter procedure DO Roberto Roth Work Phone: [facility] [address] Work Phone: Start: 07-03-2022 End: 07-03-2022 ambulatory Aby Eisenstein Facility:[facility] Start: 07-03-2022 End: 07-03-2022 ambulatory DO Roberto Roth Work Phone: [facility] Work Phone: Start: 07-03-2022 End: 07-03-2022 Patient encounter procedure DO Roberto Roth Work Phone: [facility] [address] [place] Work Phone: Start: 06-23-2022 End: 06-23-[address] HOOD RAUSCH . Facility:[facility] Start: 05-29-2022 End: 05-30-[address] HOOD RAUSCH . Facility:[facility] Start: 05-14-2022 End: 05-15-2022 ambulatory ADA SINGH . Facility:[facility] Start: 03-12-2022 End: 03-13-[address] HOOD RAUSCH . Facility:[facility] Start: 02-13-2022 Encounter for preprocedural laboratory examination DR HOOD RAUSCH . [facility] Start: 02-10-2022 End: 02-10-[address] HOOD RAUSCH . Facility:[facility] Start: 02-06-2022 End: 02-07-[address] HOOD RAUSCH . Facility:[facility] Start: 02-06-2022 End: 02-07-2022 Encounter for preprocedural laboratory examination DR HOOD RAUSCH . Facility:[facility] Start: 02-03-2022 End: 02-03-[address] HOOD RAUSCH . Facility:[facility] Start: 01-31-2022 End: 01-31-2022 Patient encounter procedure DO Roebrto Roth Work Phone: [facility] Start: 01-16-[address] HOOD RAUSCH . Faci lity:[facility] Start: 01-07-2022 End: 01-08-[address] HOOD RAUSCH . Facility:[facility] Start: 05-20-2020 End: 05-20-2020 Patient encounter procedure Roberto Roth -Pre-Surgical Testing Start: 05-14-2020 End: 05-14-2020 Patient encounter procedure Roberto Roth -Pre-Surgical Testing Start: 04-26-2020 End: 04-26-2020 Patient encounter procedure Roberto Roth -XRay [facility] Procedures Date Procedure Procedure Detail Performing [...] XR hi p RT min 2V(w/wo pelvis)* [facility] Start: 08-17-2022 XR Hip - right 2 Views [facility] Start: 07-16-2022 Bacteria identified in Urine by Culture [facility] Start: 07-16-2022 Hemolytic complement CH50 level [facility] Start: 07-16-2022 [facility] Complement C3 [Mass/volume] in Serum or Plasma [facility] Complement C4 [Mass/volume] in Serum or Plasma [facility] Homogenous nuclear A b pattern [Titer] in Serum [facility] Nuclear Ab [Titer] i n Serum [facility] Immunizations Immunization Date Immunization Notes Care Provider Fa cility 11-09-2020 COVID-19 mRNA-1273 (Moderna) DO Roberto Roth Work Phone: [facility] 10-12-2020 COVID-19 mRNA-1273 (Moderna) DO Roberto Roth Work Phone: [facility] 05-23-2020 influenza, injectabl e, quadrivalent, preservative free DO Roberto Roth Work Phone: [facility] Payers Date Payer Category Payer Self-pay [id number] 1970 Unknown [id number] 2.16.84 [id number] 1970 Unknown [id number] .16.84 0.1.524603.3.579.2.59 1970 Unknown [id number] .16.84 0.1.743526.3.579.2.593 1970 Unknown [id number] .16.84 0.1.851380.3.579.2.593 1968 Unknown [id number] .16.84 0.1.243018.3.579.2.593 1968 Unknown [id number] 2.16.84 0.1.691212.3.579.2.593 1970 Unknown [id number] 2.16.84 0.1.307110.3.579.2.593 1968 Unknown [id number] 2.16.84 0.1.784557.3.579.2.593 1968 Unknown [id number] 2.16.84 0.1.920632.3.579.2.593 1968 Unknown [id number] 2.16.84 0.1.220443.3.579.2.593 1968 Unknown [id number] 2.16.84 0.1.000223.3.579.2.593 1968 Unknown [id number] 2.16.84 0.1.346261.3.579.2.593 1968 Unknown [id number] 2.16.84 0.1.578868.3.579.2.593 1968 Unknown [id number] 2.16.84 0.1.346963.3.579.2.593 1968 Unknown [id number] 2.16.84 0.1.984822.3.579.2.593 1959 Unknown [id number] Unknown [id number] Unknown [id number] .16.8 40.1.366111.3.579.2.531 Unknown [id number] .16.8 40.1.822978.3.579.2.531 Unknown [id number] .16.8 40.1.458960.3.579.2.531 Social History Date Type Detail Facility Start: 05-14-2020 End: 06-23-2021 Tobacco smoking status NYIS Smoker (finding) [facility] Start: 1970 Sex Assigned At Female F [facility] Start: 06-23-1987 History of tobacco use [facility] Work Phone: Medical Equipment Procedure Code Equipment Code Equipment Origin al Text Equipment Identifier Dates Fusion, spine, lumbar, XLIF CANCELLOUS COARSE 7.5CC FDA Start: 05-22-2020 Fusion, spine, lumbar, XLIF Bone-screw internal spinal fixation system, non-sterile ()[id number] FDA Start: 05-22-2020 Fusion, spine, lumbar, XLIF Bone-screw internal spinal fixation system, non-sterile ()[id number] FDA Start: 05-22-2020 Fusion, spine, lumbar, XLIF Bone-screw internal spinal fixation system, non-sterile ()[id number] FDA Start: 05-22-2020 Fusion, spine, lumbar, XLIF CANCELLOUS COARSE 7.5CC FDA Start: 05-22-2020 Fusion, spine, lumbar, XLIF Bone-screw internal spinal fixation system, non-sterile ()[id number] FDA Start: 05-22-2020 Fusion, spine, lumbar, XLIF Bone-screw internal spinal fixation system, non-sterile ()[id number] FDA Start: 05-22-2020 Fusion, spine, lumbar, XLIF Polymeric spinal fusion cage, non-sterile ()[id number] FDA Start: 05-22-2020 Fusion, spine, lumbar, XLIF Dura mater graft, bovine ()[id number] FDA Start: 05-22-2020 Fusion, spine, lumbar, XLIF MAS REDUCTION FIXATION ADD LEV FDA Start: 05-22-2020 Fusion, spine, lumbar, XLIF XLIF 1 LEVEL MAS REDUCTION FDA Start: 05-22-2020 Fusion, spine, lumbar, XLIF Spinal fusion graft kit ()[id number] FDA Start: 05-22-2020 Fusion, spine, lumbar, XLIF Bone matrix implant, human-derived ()[id number] FDA Start: 05-22-2020 Fusion, spine, lumbar, XLIF Metallic spinal fusion cage, non-sterile ()[id number] FDA Start: 05-22-2020 Fusion, spine, lumbar, XLIF Bone-screw internal spinal fixation system, non-sterile ()[id number] FDA Start: 05-22-2020 Fusion, spine, lumbar, XLIF [...] pill b.i.d. and to continue to use Sunburst 7.5 mg t.i.d. We did reduce the use at her last visit from 90 pills a month to 80 pills to last one month's time. She appears to be tolerating this transition quite well. I have asked her to continue with gabapentin 600 mg t.i.d. Her JOYCE on today's visit is 28. She reports the Sunburst does improve her quality of life, level of functioning and sleep pattern, and she denies any side effects. As part of providing excellent, safe, comprehensive care, the following was completed at our patient's visit: 1. A medication reconciliation and review to ensure accurate knowledge of current/active medications, including asking our patients to inform us about any mvhe-ati-xzwdrio medications or herbal remedies/nutritional supplements/alternative remedies. 2. [...] options with their primary care provider. [facility] 09-01-2022 Note CONSULTATION CONSULTATION DATE: 09/01/2022 [...] our patients to inform us about any erok-cza-lfgiuxe medications or herbal remedies/nutritional supplements/alternative remedies. 2. [...] options with their primary care provider. [facility] 08-17-2022 Evaluation note Encounter Date Diagnosis Assessment Notes Jul, Other chronic pain (ICD-10 - G89.29) Jul, Low back pain, unspecified (ICD-10 - M54.50) [facility] Other 02-16-2023 NoteCONSULTATION CONSULTATION DATE: 07/16/2022 HISTORY OF PRESENT ILLNESS: This is a 51-year-old female who returns to the clinic status post bilateral SI joint injection completed on 06/23/2022. The patient received 80% relief for one day and on day two felt worse than her normal baseline pain. Today, she rates her pain 8/10. Medications include gabapentin 600 mg t.i.d., Sunburst 7.5/325 b.i.d. and Mobic 15 mg daily. [...] her medications; Mobic 15 mg daily and Sunburst 7.5/325 b.i.d. She will return to the clinic in six weeks' time, in which we will, in addition to her PCPs office, review the MRI and form a plan of care at that time. Patient is in agreement to this plan.[facility] [id number] Note CONSULTATION CONSULTATION DATE: 05/29/2022 HISTORY OF [...] down. Medications include gabapentin 600 mg t.i.d., Sunburst 7.5/325 b.i.d. and diclofenac 50 mg daily. [...] care and will be followed up thereafter.[facility] [id number] NoteCONSULTATION CONSULTATION DATE: 05/14/2022 HISTORY OF PRESENT [...] as well as gabapentin 600 mg t.i.d., Sunburst 7.5/325 t.i.d. At her last appointment, she [...] Refills for gabapentin 600 mg t.i.d. and Sunburst 7.5/325 b.i.d. will be sent to her pharmacy. Patient agrees to move forward with the procedure. She will followed up in the clinic thereafter.[facility] [id number] NotePAIN MANAGEMENT CONSULTATION CONSULTATION DATE: 05/14/2022 CHIEF [...] with a sacroiliac joint injection under fluoroscopy.[facility] [id number] NoteCONSULTATION CONSULTATION DATE: 03/12/2022 ADDENDUM DIAGNOSIS: Lumbar spondylosis, lumbar degenerative disc disease, chronic lower back pain and a history of a lumbar fusion.[facility] [id number] Note CONSULTATION CONSULTATION DATE: 03/12/2022 This is [...] Current medications include gabapentin 600 mg t.i.d., Sunburst 7.5/325 b.i.d., diclofenac cream and ibuprofen. She [...] with her vitamins as well as her Sunburst. The dose of frequency will not be changed. We will have the patient return to the clinic in two months' time for re-evaluation. The patient is inquiring about an increase of her Sunburst, possibly during the winter months. There will be no changes today.[facility] [id number] NoteCONSULTATION CONSULTATION DATE: 01/07/2022 This is a [...] Current medications include gabapentin 600 mg b.i.d., Sunburst 7.5/325 b.i.d., diclofenac topical, multivitamin regimen and ibuprofen p.r.n. She has tried diclofenac in the past but was unable to tolerate it due to stomach issues but low-dose ibuprofen she can tolerate. She is needing Sunburst and gabapentin refill today. REVIEW OF SYSTEMS, [...] subsequently move to the left. Refill for Sunburst 7.5/325 b.i.d. and gabapentin 600 mg b.i.d. will be sent to the pharmacy. The patient is encouraged to increase magnesium in her vitamin regimen as well as menthol heat rub, seated stretches that were demonstrated and heat application. The patient agrees with the plan of care and would like to move forward and she will follow-up in the clinic post procedure.[facility] HospitalEvaluation noteNo assessment information availableMarietta [facility] Clinic Work Phone: Evaluation noteNo InformationNortLECOM [facility] Other History general Narrative - Reported* Type [...] History 4 child births [facility] Other Advance Directives No Advanced Directives Records [...] section and content) DATE CREATED AUTHOR 08/01/[address] [facility] dical Specialist DATE CREATED AUTHOR AUTHOR'S ORGANIZ ATION 11/06/2022 [facility] DATE CREATED AUTHOR AUTHOR'S ORGANIZ ATION 02/04/2023 [facility] REASON FOR VISIT (unrecogniz ed section and [...] BE BASED ON THE PRIMARY CLINICAL RECORDS. [employer] provides no warranty or guarantee of the accuracy or completeness of information in this document.
[2023-10-04 10:10] VITALS: BP 154/73; BP 157/94; PULSE 94; PULSE 95; O2SAT 96; O2SAT 97
[2023-10-04] MEDS: TRIAMCINOLONE ACETONIDE 40 MG/ML VIAL INJ (10:11)
[2023-10-04] MEDS: IOHEXOL 240 MG/ML - 10 ML VIAL INJ (10:11)
[2023-10-04] MEDS: LIDOCAINE HCL 2% PF 100 MG/5 ML VIAL INJ (10:11)
[2023-10-04] MEDS: BUPIVACAINE HCL 0.25% PF 25 MG/10 ML VIAL INJ (10:11)
[2023-10-04] MEDS: 0.9 % SODIUM CHLORIDE 10 ML SYRINGE - SALINE FLUSH INJ (10:11)
--- NOTE | 2023-10-04 10:14 | P.ON_ITS ---
Date of procedure: 10/04/23 Pre-op diagnosis: Lumbar stenosis with neurogenic claudication Post-op diagnosis: same as pre-op Procedure: Procedure: Right L3-4, L5-S1 transforaminal epidural steroid injection Medications: Bupivacaine 0.25% 2cc, lidocaine 2% 1cc, kenalog 80mg The patient was seen and examined in the preoperative holding area.? Informed consent was obtained and placed on the chart.? Patient was brought to the medical procedure unit and placed in the prone position where a timeout was completed verifying the correct patient, procedure site, position, and planned special equipment using sterile aseptic technique.? Under direct fluoroscopic visualization a 25-gauge Quincke tipped spinal needle was advanced to the designated neural foramen where contrast dye was injected to show adequate spread.? The needle was inserted at level right L3-4. There was no evidence of vascular or adverse uptake.? Epidural spread was appreciated.? The above- mentioned injectate was then placed in a 1.5 mL aliquot preceded by negative aspiration.? The needle was removed. The needle was inserted and the procedure repeated at level right L5-S1.? The surgery site was covered.? Patient was taken to the postprocedural recovery area and monitored for an appropriate length of time before found suitable for discharge in the accompaniment of a responsible adult. Anesthesia: Local Surgeon: Aaron Mosqueda Pathology: none sent Condition: stable Disposition: no change
== END 2023-10-04 10:17 | disposition home or self-care (01) ==
PROVIDERS: Visit Provider Anesthesiology
DX: M48.062 Spinal stenosis, lumbar region with neurogenic claudication (principal)
CPT/HCPCS: 64483; 64484; Q9966

== ENCOUNTER 2023-10-18 08:36 | Day surgery (SDC) | payer BC, SELFPAY ==
--- OUTSIDE RECORDS SUMMARY | 2023-10-18 08:47 | XMS_ITS | CCD ---
Author Organization [facility] Care Team Providers Care Broadcast Meteorologist Name Role Phone Roberto Roth Primary Care Provider [phone] Justice Cruz Attending Provider DO Roberto Roth Primary Care Provider [phone] MD Hood Rausch Attending Provider DO Roberto Roth Primary Care Provider CALVIN Yu Attending Provider MD Paresh Tian Attending Provider Roth, DO Mejia Primary Care Provider [phone] CALVIN Yu Attending Provider MD Paresh Tian Attending Provider MD Gina [...] RAUSCH ., DR HOOD Hernandez Attending Unavailable RUASCH ., DR HOOD Hernandez Admitting Unavailable ROTH, [...] ROTH, DR ROBERTO Bhakta Primary Care Unavailable NAPER, DR DASHA Gomez Consulting Unavailable SINGH ., [...] Tian Attending Unavailable Roberto Roth Primary [facility] Unavailable Gina Guerrero Admitting Unavailable Gina Guerrero Attending Unavailable Roberto Roth Primary [facility] Unavailable Unavailable Unavailable Unavailable Allergies Allergy Classification Reported Allergen(s) Allergy Type Date of Onset Reaction(s) Facility (6 sources) Amoxicillin; Translations: [amoxicillin] Drug Allergy 0 [facility] (7 sources) Penicillins; Translations: [Penicillins] Propensity to adverse reactions 4 Nausea [facility] (6 sources) clavulanic acid; Translations: [clavulanic acid] Propensity to adverse reactions 0 [facility] (3 sources) Amoxicillin / Clavulanate; Translations: [Augmentin] Drug Allergy 4 Unknown [facility] (2 sources) Azithromycin Drug Allergy diarrhea [facility] Other (2 sources) Penicillin G Drug Allergy Unknown [facility] Other Medications Current Medications Medication Drug Class(es) Dates Sig (Normalized) Sig (Original) acetaminophen 500 mg oral tablet (4 sources) Start: 05-31-2020 take 500 mg by mouth every four hours Acetaminophen Active 500 MG PO Q4H 100 May 31, 2020 1:00am [id number] 200 actuat albuterol 0.09 mg/actuat metered dose [...] by mouth three times daily Hydrocodone-Acetami nophen ([place]) 5-325 mg Tablet Discontinued 1 TAB PO Three times daily March 18, 2019 12:00am May 23, 2020 4:59pm [place] Active azithromycin 250 mg oral tablet (4 [...] sources) High risk drug monitoring status; 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 Attending Dr: Gina Guerrero MD Copies [...] Tate Alva M.D.08/18/2022 10:01 AM Dictation Location: [place] [address] Transcribed By: [facility] 08/18/22 1001 Dictated By: Tate Alva II, MD 08/18/22 0957 Signed By: 08/18/22 1001 [facility] MRI Lumbar Spine w/o + w/on [...] by Justice Lucas on 07/31/2022 0915 Normal [facility] ASTER Antinuclear Antibodieson 07-16-2022 Antinuclear Abs, IFA Positive Critically abnormal . [facility] Comment on above: Result Comment: Nega tive <1:80 Borderline 1:80 Positive >1:80 Performed By: #### A NA, C4, C3, CH50 #### [facility] , #### CRP, CREAT, ADDONUAPLUS, CUU, ESR, CBC #### [facility] [address] [place] [id number] [facility] Note 1 Normal . [facility] Comment on above: Result Comment: For more [...] titers Nucleosomes, Histones Drug-induced SLE Speckled Sm, PARARESCUE MANAGER, SCL-70, SLE,MCTD,PSS (diffuse form), SS-A/SS-B Sjogrens Nucleolar SCL-70, PM-1/SCL High titers Scleroderma, PM/DM Centromere Centromere PSS (limited form) w/Crest syndrome variable Nuclear Dot Sp100,[id number] Primary Biliary Cirrhosis Nuclear GP210, Primary Biliary Cirrhosis Membrane kailyn A,B,C Performed at: [facility] [address] [id number] Last Sorter: Collin Rodriguez PhD, Phone: [phone] Performed By: #### A NA, C4, C3, CH50 #### [facility] , #### CRP, CREAT, ADDONUAPLUS, CUU, ESR, CBC #### [facility] [address] [place] [address] Spindle Apparatus Pattern 1:160 High . [facility] Comment on above: Result Comment: ICAP nomenclature: [id number] Performed By: #### A NA, C4, C3, CH50 #### [facility] , #### CRP, CREAT, ADDONUAPLUS, CUU, ESR, CBC #### [facility] [address] [place] [address] Automated erythrocytes count in urine sediment (number/area)Ordered By: Paresh Tian on 07-16-2022 RBC Auto (Urine sed) [#/Area] 1-2 [HPF] 0-4 [facility] Automated leukocytes count i n urine sediment (number/area)Ordered By: Paresh Tian on 07-16-2022 WBC Auto (Urine sed) [#/Area] 20-49 [HPF] 0-4 [facility] Basophils Auto (Bld) [#/Vol] Ordered By: Paresh Tian on 07-16-2022 Basophils (Bld) [#/Vol] 0.0 10*3/uL 0.0-0.2 [facility] Basophils/100 WBC Auto (Bld) Ordered By: Paresh Tian on 07-16-2022 Basophils/100 WBC (Bld) 0.4 % . [facility] Bilirubin Test strip Ql (U)O rdered By: Paresh Tian on 07-16-2022 Bilirubin Ql (U) Negative Negative [facility] C reactive protein [Mass/vol ume] in Serum or PlasmaOrdered By: Paresh Tian on 07-16-2022 CRP [Mass/Vol] 0.8 mg/dL 0.0-1.0 [facility] C-Reactive Proteinon 023 C-Reactive Protein 0.8 mg/dL Normal 0.0-1.0 [facility] Comment on above: Result Comment: PERF ORMED BY: [place] [address] PATHOLOGIST DREDGE MASTER PENG POLO M.D. Performed By: #### A NA, C4, C3, CH50 #### [facility] , #### CRP, CREAT, ADDONUAPLUS, CUU, ESR, CBC #### [facility] [address] Color Auto (U)Ordered By: Afia Tian on 07-16-2022 Color (U) Yellow Yellow [facility] Complement C3on 07-16-2022 Complement C3 197 mg/dL High 82-167 [facility] Comment on above: Result Comment: Perf ormed at: - [facility] [address] [id number] Last Sorter: Collin Rodriguez PhD, Phone: [phone] Performed By: #### A NA, C4, C3, CH50 #### [facility] , #### CRP, CREAT, ADDONUAPLUS, CUU, ESR, CBC #### [facility] [address] [place] [address] Complement C4on 07-16-2022 Complement C4 42 mg/dL High 12-38 [facility] Comment on above: Result Comment: PERF ORMED BY: [place] [address] PATHOLOGIST DREDGE MASTER PENG POLO M.D. Performed By: #### A NA, C4, C3, CH50 #### [facility] , #### CRP, CREAT, ADDONUAPLUS, CUU, ESR, CBC #### [address] Complement Total (CH50)on Complement Total (CH50) >60 Normal >41 F [facility] Comment on above: Result Comment: Age [...] out of range values. Performed at: - [facility] [id number] Last Sorter: Collin Rodriguez PhD, Phone: [phone] PERFORMED BY: [place] [address] PATHOLOGIST DREDGE MASTER PENG POLO M.D. Performed By: #### A NA, C4, C3, CH50 #### [facility] , #### CRP, CREAT, ADDONUAPLUS, CUU, ESR, CBC #### [address] Complete Blood Count Auto Di ffon 07-16-2022 Basophils (Bld) [#/Vol] 0.0 10*3/uL Normal 0.0-0.2 [facility] Comment on above: Performed By: #### A NA, C4, C3, CH50 #### [facility] , #### CRP, CREAT, ADDONUAPLUS, CUU, ESR, CBC #### [address] Basophils/100 WBC (Bld) 0.4 % Normal . [facility] Comment on above: Performed By: #### A NA, C4, C3, CH50 #### [facility] , #### CRP, CREAT, ADDONUAPLUS, CUU, ESR, CBC #### [address] Eosinophils (Bld) [#/Vol] 0.1 10*3/uL Normal 0.0-0.45 [facility] Comment on above: Performed By: #### A NA, C4, C3, CH50 #### [facility] , #### CRP, CREAT, ADDONUAPLUS, CUU, ESR, CBC #### [address] Eosinophils/100 WBC (Bld) 1.1 % Normal . [facility] Comment on above: Performed By: #### A NA, C4, C3, CH50 #### [facility] , #### CRP, CREAT, ADDONUAPLUS, CUU, ESR, CBC #### [address] Erythrocyte distribution width (RBC) [Ratio] 13.0 % Normal 11.9-15.3 [facility] Comment on above: Performed By: #### A NA, C4, C3, CH50 #### [facility] , #### CRP, CREAT, ADDONUAPLUS, CUU, ESR, CBC #### [address] Hematocrit (Bld) [Volume fraction] 45.3 % Normal 34.0-46.4 [facility] Comment on above: Performed By: #### A NA, C4, C3, CH50 #### [facility] , #### CRP, CREAT, ADDONUAPLUS, CUU, ESR, CBC #### [address] Hemoglobin (Bld) [Mass/Vol] 15.2 g/dL Normal 11.8-15.4 [facility] Comment on above: Performed By: #### A NA, C4, C3, CH50 #### [facility] , #### CRP, CREAT, ADDONUAPLUS, CUU, ESR, CBC #### [address] Lymphocytes (Bld) [#/Vol] 3.7 10*3/uL Normal 1.00-4.8 [facility] Comment on above: Performed By: #### A NA, C4, C3, CH50 #### [facility] , #### CRP, CREAT, ADDONUAPLUS, CUU, ESR, CBC #### [address] Lymphocytes/100 WBC (Bld) 35.0 % Normal . [facility] Comment on above: Performed By: #### A NA, C4, C3, CH50 #### [facility] , #### CRP, CREAT, ADDONUAPLUS, CUU, ESR, CBC #### [address] MCH (RBC) [Entitic mass] 33.8 pg Normal 24.7-34.3 [facility] Comment on above: Performed By: #### A NA, C4, C3, CH50 #### [facility] , #### CRP, CREAT, ADDONUAPLUS, CUU, ESR, CBC #### [address] MCV (RBC) [Entitic vol] 100.6 fL High 80-100 [facility] Comment on above: Performed By: #### A NA, C4, C3, CH50 #### [facility] , #### CRP, CREAT, ADDONUAPLUS, CUU, ESR, CBC #### [address] Mean Corpuscular HGB Conc 33.6 g/dL Normal 32.0-35.0 [facility] Comment on above: Performed By: #### A NA, C4, C3, CH50 #### [facility] , #### CRP, CREAT, ADDONUAPLUS, CUU, ESR, CBC #### [address] Monocytes (Bld) [#/Vol] 0.7 10*3/uL Normal 0.0-0.8 [facility] Comment on above: Performed By: #### A NA, C4, C3, CH50 #### [facility] , #### CRP, CREAT, ADDONUAPLUS, CUU, ESR, CBC #### [place] [address] [place] Monocytes/100 WBC (Bld) 6.8 % Normal . [facility] Comment on above: Performed By: #### A NA, C4, C3, CH50 #### [facility] , #### CRP, CREAT, ADDONUAPLUS, CUU, ESR, CBC #### [place] [address] [place] Neutrophils (Bld) [#/Vol] 5.9 10*3/uL Normal 1.8-7.7 [facility] Comment on above: Performed By: #### A NA, C4, C3, CH50 #### [facility] , #### CRP, CREAT, ADDONUAPLUS, CUU, ESR, CBC #### [place] [address] [place] Neutrophils/100 WBC (Bld) 56.7 % Normal . [facility] Comment on above: Performed By: #### A NA, C4, C3, CH50 #### [facility] , #### CRP, CREAT, ADDONUAPLUS, CUU, ESR, CBC #### [address] NRBC% 0.1 /100{WBC} Normal 0-0.5 [facility] Comment on above: Performed By: #### A NA, C4, C3, CH50 #### [facility] , #### CRP, CREAT, ADDONUAPLUS, CUU, ESR, CBC #### [address] Platelet mean volume (Bld) [Entitic vol] 8.4 fL Normal 6.3-10.7 [facility] Comment on above: Performed By: #### A NA, C4, C3, CH50 #### [facility] , #### CRP, CREAT, ADDONUAPLUS, CUU, ESR, CBC #### [address] Platelets (Bld) [#/Vol] 242 10*3/uL Normal 150-450 [facility] Comment on above: Performed By: #### A NA, C4, C3, CH50 #### [facility] , #### CRP, CREAT, ADDONUAPLUS, CUU, ESR, CBC #### [address] RBC (Bld) [#/Vol] 4.50 10*6/uL Normal 3.60-5.00 [facility] Comment on above: Performed By: #### A NA, C4, C3, CH50 #### [facility] , #### CRP, CREAT, ADDONUAPLUS, CUU, ESR, CBC #### [address] WBC (Bld) [#/Vol] 10.4 10*3/uL Normal 3.8-11.6 [facility] Comment on above: Performed By: #### A NA, C4, C3, CH50 #### [facility] , #### CRP, CREAT, ADDONUAPLUS, CUU, ESR, CBC #### [address] Creatinineon 07-16-2022 Creatinine [Mass/Vol] 0.74 mg/dL Normal 0.44-1.03 [facility] Comment on above: Performed By: #### A NA, C4, C3, CH50 #### [facility] , #### CRP, CREAT, ADDONUAPLUS, CUU, ESR, CBC #### [address] Estimated GFR ( Sharon > 60 Normal [facility] Comment on above: Result Comment: GFR estimated reference range: According to KDOQI guidelines, <60 ml/min/1.73m2 is sufficient to diagnose a patient with chronic kidney disease. Performed By: #### A NA, C4, C3, CH50 #### [facility] , #### CRP, CREAT, ADDONUAPLUS, CUU, ESR, CBC #### [address] Estimated GFR (Non- Am > 60 Normal [facility] Comment on above: Performed By: #### A NA, C4, C3, CH50 #### [facility] , #### CRP, CREAT, ADDONUAPLUS, CUU, ESR, CBC #### [address] Creatinine and Glomerular fi ltration rate.predicted panel (S/P/Bld)Ordered By: Paresh Tian on 07-16-2022 Creatinine [Mass/Vol] 0.74 mg/dL 0.44-1.03 [facility] Dipstick and Microscopicon 0 07-16-2022 Appearance (U) Clear Normal Clear [facility] Comment on above: Order Comment: Name Collection Type:: Clean-Voided Midstream Performed By: #### A NA, C4, C3, CH50 #### [facility] , #### CRP, CREAT, ADDONUAPLUS, CUU, ESR, CBC #### [facility] [address] [place] [address] Bacteria,Urine 4+ High None Seen [facility] Comment on above: Order Comment: Name Collection Type:: Clean-Voided Midstream Performed By: #### A NA, C4, C3, CH50 #### [facility] , #### CRP, CREAT, ADDONUAPLUS, CUU, ESR, CBC #### [facility] [address] [place] [address] Bilirubin,Urine Negative Normal Negative [facility] Comment on above: Order Comment: Name Collection Type:: Clean-Voided Midstream Performed By: #### A NA, C4, C3, CH50 #### [facility] , #### CRP, CREAT, ADDONUAPLUS, CUU, ESR, CBC #### [facility] [address] [place] [address] [place] Color (U) Yellow Normal Yellow [facility] Comment on above: Order Comment: Name Collection Type:: Clean-Voided Midstream Performed By: #### A NA, C4, C3, CH50 #### [facility] , #### CRP, CREAT, ADDONUAPLUS, CUU, ESR, CBC #### [facility] [address] [place] [address] [place] Glucose Ql (U) Normal Normal Normal [facility] Comment on above: Order Comment: Name Collection Type:: Clean-Voided Midstream Performed By: #### A NA, C4, C3, CH50 #### [facility] , #### CRP, CREAT, ADDONUAPLUS, CUU, ESR, CBC #### [facility] [address] [place] [address] Hyaline Casts,Urine 0-8 Normal 0-8 [facility] Comment on above: Order Comment: Name Collection Type:: Clean-Voided Midstream Result Comment: PERF ORMED BY: [place] [address] PATHOLOGIST DREDGE MASTER PENG POLO M.D. Performed By: #### A NA, C4, C3, CH50 #### [facility] , #### CRP, CREAT, ADDONUAPLUS, CUU, ESR, CBC #### [address] Ketones Ql (U) Negative Normal Negative [facility] Comment on above: Order Comment: Name Collection Type:: Clean-Voided Midstream Performed By: #### A NA, C4, C3, CH50 #### [facility] , #### CRP, CREAT, ADDONUAPLUS, CUU, ESR, CBC #### [address] Leukocyte esterase Test strip Ql (U) 3+ High Negative [facility] Comment on above: Order Comment: Name Collection Type:: Clean-Voided Midstream Performed By: #### A NA, C4, C3, CH50 #### [facility] , #### CRP, CREAT, ADDONUAPLUS, CUU, ESR, CBC #### [facility] [address] [place] [address] Nitrite,Urine Negative Normal Negative [facility] Comment on above: Order Comment: Name Collection Type:: Clean-Voided Midstream Performed By: #### A NA, C4, C3, CH50 #### [facility] , #### CRP, CREAT, ADDONUAPLUS, CUU, ESR, CBC #### [address] Occult Blood,Urine Negative Normal Negative [facility] Comment on above: Order Comment: Name Collection Type:: Clean-Voided Midstream Performed By: #### A NA, C4, C3, CH50 #### [facility] , #### CRP, CREAT, ADDONUAPLUS, CUU, ESR, CBC #### [address] pH (U) 6.5 [pH] Normal 5.0-9.0 [facility] Comment on above: Order Comment: Name Collection Type:: Clean-Voided Midstream Performed By: #### A NA, C4, C3, CH50 #### [facility] , #### CRP, CREAT, ADDONUAPLUS, CUU, ESR, CBC #### [address] Protein,Urine Negative Normal Negative [facility] Comment on above: Order Comment: Name Collection Type:: Clean-Voided Midstream Performed By: #### A NA, C4, C3, CH50 #### [facility] , #### CRP, CREAT, ADDONUAPLUS, CUU, ESR, CBC #### [address] RBC,Urine 1-2 Normal 0-4 [facility] Comment on above: Order Comment: Name Collection Type:: Clean-Voided Midstream Performed By: #### A NA, C4, C3, CH50 #### [facility] , #### CRP, CREAT, ADDONUAPLUS, CUU, ESR, CBC #### [address] Specificy [place],Urine 1.018 Normal 1.00 1-1.03 0 [facility] Comment on above: Order Comment: Name Collection Type:: Clean-Voided Midstream Performed By: #### A NA, C4, C3, CH50 #### [facility] , #### CRP, CREAT, ADDONUAPLUS, CUU, ESR, CBC #### [address] Squamous Epithelial Cell,Urine 0-1 Normal 0-2 [facility] Comment on above: Order Comment: Name Collection Type:: Clean-Voided Midstream Performed By: #### A NA, C4, C3, CH50 #### [facility] , #### CRP, CREAT, ADDONUAPLUS, CUU, ESR, CBC #### [facility] [address] [place] [address] Urobilinogen,Urine Normal Normal Normal [facility] Comment on above: Order Comment: Name Collection Type:: Clean-Voided Midstream Performed By: #### A NA, C4, C3, CH50 #### [facility] , #### CRP, CREAT, ADDONUAPLUS, CUU, ESR, CBC #### [facility] [address] [place] [address] WBC,Urine 20-49 High 0-4 [facility] Comment on above: Order Comment: Name Collection Type:: Clean-Voided Midstream Performed By: #### A NA, C4, C3, CH50 #### [facility] , #### CRP, CREAT, ADDONUAPLUS, CUU, ESR, CBC #### [facility] [address] [place] [address] Eosinophils Auto (Bld) [#/Vo l]Ordered By: Paresh Tian on 07-16-2022 Eosinophils (Bld) [#/Vol] 0.1 10*3/uL 0.0-0.45 [facility] Eosinophils/100 WBC Auto (Bl d)Ordered By: Paresh Tian on 07-16-2022 Eosinophils/100 WBC (Bld) 1.1 % . [facility] Erythrocyte Sedimentation Ra declan 07-16-2022 ESR (Bld) [Velocity] 45 mm/h High 0-29 [facility] Comment on above: Result Comment: PERF ORMED BY: [place] [address] PATHOLOGIST DREDGE MASTER PENG POLO M.D. Performed By: #### A NA, C4, C3, CH50 #### [facility] , #### CRP, CREAT, ADDONUAPLUS, CUU, ESR, CBC #### [facility] [address] Erythrocyte distribution wid th Auto (RBC) [Ratio]Ordered By: Paresh Tian on 07-16-2022 Erythrocyte distribution width (RBC) [Ratio] 13.0 % 11.9-15.3 [facility] Erythrocyte sedimentation ra te by Photometric methodOrdered By: Paresh Tian on 07-16-2022 ESR Photometric method (Bld) [Velocity] 45 mm/hr 0-29 [facility] Estimated glomerular filtrat ion rate (GFR) non- AmericanOrdered By: Paresh Tian on 07-16-2022 GFR/1.73 sq M.predicted among non-blacks MDRD (S/P/Bld) [Vol rate/Area] > 60 mL/Min [facility] Hematocrit Auto (Bld) [Volum e fraction]Ordered By: Paresh Tian on 07-16-2022 Hematocrit (Bld) [Volume fraction] 45.3 % 34.0-46.4 [facility] Hemoglobin [Mass/volume] in BloodOrdered By: Paresh Tian on 07-16-2022 Hemoglobin (Bld) [Mass/Vol] 15.2 g/dL 11.8-15.4 [facility] Ketones Auto test strip (U) [Mass/Vol]Ordered By: Paresh Tian on 07-16-2022 Ketones (U) [Mass/Vol] Negative Negative [facility] - UrinalysisOrder ed By: Paresh Tian on 07-16-2022 Hyaline casts LM Ql (Urine sed) 0-8 [LPF] 0-8 [facility] Leukocytes [#/volume] correc scot for nucleated erythrocytes in Blood by Automated counOrdered By: Paresh Tian on 07-16-2022 WBC corrected for nucl RBC Auto (Bld) [#/Vol] 10.4 10*3/uL 3.8-11.6 [facility] Lymphocytes Auto (Bld) [#/Vo l]Ordered By: Paresh Tian on 07-16-2022 Lymphocytes (Bld) [#/Vol] 3.7 10*3/uL 1.00-4.8 [facility] Lymphocytes/100 WBC Auto (Bl d)Ordered By: Paresh Tian on 07-16-2022 Lymphocytes/100 WBC (Bld) 35.0 % . [facility] MCH Auto (RBC) [Entitic mass ]Ordered By: Paresh Tian on 07-16-2022 MCH (RBC) [Entitic mass] 33.8 pg 24.7-34.3 [facility] MCHC Auto (RBC) [Mass/Vol]Or dered By: Paresh Tian on 07-16-2022 MCHC (RBC) [Mass/Vol] 33.6 g/dL 32.0-35.[address] [facility] MCV Auto (RBC) [Entitic vol] Ordered By: Paresh Tian on 07-16-2022 MCV (RBC) [Entitic vol] 100.6 fL 80-100 F [facility] Mitotic spindle apparatus Ab [Titer] in Serum or Plasma by ImmunofluorescenceOrdered By: Paresh Tian on 07-16-2022 Mitotic spindle apparatus Ab IF [Titer] 1:160 . [facility] Comment on above: ICAP nomenclature: A [id number] Monocytes Auto (Bld) [#/Vol] Ordered By: Paresh Tian on 07-16-2022 Monocytes (Bld) [#/Vol] 0.7 10*3/uL 0.0-0.8 [facility] Monocytes/100 WBC Auto (Bld) Ordered By: Paresh Tian on 07-16-2022 Monocytes/100 WBC (Bld) 6.8 % . [facility] Neutrophils Auto (Bld) [#/Vo l]Ordered By: Paresh Tian on 07-16-2022 Neutrophils (Bld) [#/Vol] 5.9 10*3/uL 1.8-7.7 [facility] Neutrophils/100 WBC Auto (Bl d)Ordered By: Paresh Tian on 07-16-2022 Neutrophils/100 WBC (Bld) 56.7 % . [facility] Nitrite Test strip Ql (U)Ord ered By: Paresh Tian on 07-16-2022 Nitrite Ql (U) Negative Negative [facility] No Panel InformationOrdered By: Paresh Tian on 07-16-2022 Anti-Nuclear Antibody Comment 2 See comment . [facility] Comment on above: For more information about Hep-2 cell patterns [employer], a [employer], the official website for the [employer] on Antinuclear Antibody (ASTER) Patterns (ICAP). --------A positive ASTER result may occur in healthy individuals (lowtiter) or be associated with a variety of diseases. Seeinterpretation chart which is not all inclusive:Pattern Antigen Detected Suggested Disease Association Homogeneous DNA(ds,ss), SLE - High titers Nucleosomes, Histones Drug-induced SLE Speckled Sm, PARARESCUE MANAGER, SCL-70, SLE,MCTD,PSS (diffuse form), SS-A/SS-B Sjogrens Nucleolar SCL-70, PM-1/SCL High titers Scleroderma, PM/DM Centromere Centromere PSS (limited form) w/Crest syndrome variable Nuclear Dot Sp100,[id number]-pqysld Primary Biliary Cirrhosis Nuclear GP210, Primary Biliary CirrhosisMembrane kailyn A,B,C Performed at: [facility] [id number] [place], [place] [id number] Director: Collin Rodriguez PhD, Phone: [phone] Estimated GFR () > 60 mL/Min [facility] Comment on above: GFR estimated refere nce range: According to KDOQI guidelines, <60 ml/min/1.73m2 is sufficient to diagnose a patient with chronic kidney disease. Pharmacy Creatinine Clearance (Chem N/A [facility] Total Complement (CH50) >60 U/mL >41 [facility] Comment on above: Age Male Female [...] to determine out of range values.Performed at: [facility] [place], [place] [id number] Director: Collin Rodriguez PhD, Phone: [phone] Nucleated erythrocytes [Pres ence] in Blood by Automated countOrdered By: Paresh Tian on 07-16-2022 Nucleated RBC Auto Ql (Bld) 0.1 /100{WBC} 0-0.5 [facility] Platelet mean volume Auto (B ld) [Entitic vol]Ordered By: Paresh Tian on 07-16-2022 Platelet mean volume (Bld) [Entitic vol] 8.4 fL 6.3-10.7 [facility] Platelets Auto (Bld) [#/Vol] Ordered By: Paresh Tian on 07-16-2022 Platelets (Bld) [#/Vol] 242 10*3/uL 150-450 [facility] Protein Auto test strip (U) [Mass/Vol]Ordered By: Paresh Tian on 07-16-2022 Protein (U) [Mass/Vol] Negative Negative [facility] RBC Auto (Bld) [#/Vol]Ordere d By: Paresh Tian on 07-16-2022 RBC (Bld) [#/Vol] 4.50 10*6/uL 3.60-5.00 [facility] Serum homogeneous pattern an tinuclear antibody (ASTER) titerOrdered By: Paresh Tian on 07-16-2022 Homogenous nuclear Ab pattern (S) [Titer] N/A [facility] Serum nuclear antibody titer Ordered By: Paresh Tian on 07-16-2022 Nuclear Ab (S) [Titer] Positive . [facility] Comment on above: Negative <1:80 Borde rline 1:80 Positive >1:80 Serum or plasma complement C 3 measurement (mass/volume)Ordered By: Paresh Tian on 07-16-2022 Complement C3 [Mass/Vol] 197 mg/dL 82-167 [facility] Comment on above: Performed at: - [facility] [address] [id number] Director: Collin Rodriguez PhD, Phone: [phone] Serum or plasma complement C 4 measurement (mass/volume)Ordered By: Paresh Tian on 07-16-2022 Complement C4 [Mass/Vol] 42 mg/dL 12-38 [facility] Specific gravity Auto test s trip (U) [Rel density]Ordered By: Paresh Tian on 07-16-2022 Specific gravity (U) [Rel density] 1.018 1.001-1.03 0 [facility] Squamous epithelial cells de tection in urine sediment by light microscopyOrdered By: Paresh Tian on 07-16-2022 Epithelial cells.squamous LM Ql (Urine sed) 0-1 [HPF] 0-2 [facility] Urine Cultureon 07-16-2022 Bacteria identified Cx Nom (U) ORGANISM: Escherichia coli (O:ESCCOL) Bath Count >100,000 Aerobic TARA Charge (NMIC56) -- [...] RESISTANT TO ALL B-LACTAM DRUGS. PERFORMED BY: [facility] [place] [place] [address] PATHOLOGIST DREDGE MASTER PENG POLO M.D. Normal [facility] Comment on above: Performed By: #### A NA, C4, C3, CH50 #### [facility] , #### CRP, CREAT, ADDONUAPLUS, CUU, ESR, CBC #### [facility] [address] [place] [address] [place] Urine bacteria detection by automated methodOrdered By: Paresh Tian on 07-16-2022 Bacteria Auto Ql (U) 4+ None Seen [facility] Urine clarity by refractomet ry automatedOrdered By: Paresh Tian on 07-16-2022 Clarity Refractometry automated (U) Clear Clear [facility] Urine culture routineOrdered By: Paresh Tian on 07-16-2022 Bacteria identified Cx Nom (U) Escherichia coli [facility] Urine glucose measurement by automated test strip (mass/volume)Ordered By: Paresh Tian on 07-16-2022 Glucose Auto test strip (U) [Mass/Vol] Normal mg/dL Normal [facility] Urine hemoglobin detection b y automated test stripOrdered By: Paresh Tian on 07-16-2022 Hemoglobin Auto test strip Ql (U) Negative Negative [facility] Urine leukocyte esterase det ection by automated test stripOrdered By: Paresh Tian on 07-16-2022 Leukocyte esterase Auto test strip Ql (U) 3+ Negative [facility] Urobilinogen Auto test strip (U) [Mass/Vol]Ordered By: Paresh Tian on 07-16-2022 Urobilinogen (U) [Mass/Vol] Normal mg/dL Normal [facility] WBC Auto (Bld) [#/Vol]Ordere d By: Paresh Tian on 07-16-2022 WBC (Bld) [#/Vol] 10.4 10*3/uL 3.8-11.6 [facility] pH Auto test strip (U)Ordere d By: Paresh Tian on 07-16-2022 pH (U) 6.5 [pH] 5.0-9.0 [facility] XR lumbar spine 6V w bending on 07-03-2022 XR lumbar spine 6V w bending [facility] [address] [place] [address] [place] [id number] XRay Report Signed Patient: Kim Hill MR#: [id number] : 1970 Acct:[id number] Age/Sex: 51 / F ADM Date: 07/03/22 Loc: XD Room: Type: [facility] Attending Dr: Aby SIMPSON Copies to: CALVIN [...] Gifford Jr., D.OPancho07/03/2022 3:59 PM Dictation Location: [place] [address] Transcribed By: [facility] 07/03/22 1559 Dictated By: Gary Gifford Jr, DO 07/03/22 1557 Signed By: 07/03/22 1559 [facility] XR HIPS ZEINA [id number] WO PELVISon [...] DASHA KHAN Date: 2022-05-15 07:49 Normal [facility]on SARS-CoV-2 (COVID-19) RNA AMBERLY+probe Ql (Unsp spec) Not detected Normal NOT DETECTED [facility] Comment on above: Result Comment: This test is not yet approved or cleared by the [place] FDA. When there are no FDA-approved or cleared tests available, and other criteria are met, FDA can make tests available under an emergency access mechanism called an Emergency Use Authorization (EUA). The EUA for this test is supported by the [place] of Health and Human Service's (HHS's) declaration [...] consistent with SARS-CoV-2. Performed By: #### C [facility] #### [facility] [address] [place] [address] Dr. Narendra Jacobsen COVID-19 Positive/NegativeOr dered By: Baljinder Rausch on 01-31-2022 SARS-CoV-2 (COVID-19) N gene AMBERLY+probe Ql (Resp) Negative Negative [facility] Comment on above: Testing for SARS-CoV -2 by RT-PCR This test was developed and its performance characteristics determined by [employer] ([place]) and validated at the [facility]. This test has not been FDA cleared [...] COVID-19 Positive/Negativeon 05-20-2020 COVID-19 Positive/Negative Negative Negative [facility] Comment on above: Testing for SARS-CoV -2 by RT-PCRThis test was developed and its performance characteristics determined by [employer] ([employer] and validated at the [facility]. This test has not been FDA cleared [...] Otheron 05-20-2020 Coronavirus 2019 PCR Interp N/A [facility] Automated basophil %on 05-14 Basophils/100 WBC (Bld) 0.5 % F [facility] Automated basophil counton 1 07-15-2019 Basophils (Bld) [#/Vol] 0.0 10*3/uL 0.0-0.2 [facility] Automated blood lymphocyte c ount (number/volume)on 05-14-2020 Lymphocytes (Bld) [#/Vol] 2.8 10*3/uL 1.00-4.8 [facility] Automated blood lymphocyte c ount as percentage of total leukocyteson 05-14-2020 Lymphocytes/100 WBC (Bld) 35.0 % [facility] Automated blood monocyte cou nton 05-14-2020 Monocytes (Bld) [#/Vol] 0.6 10*3/uL 0.0-0.8 [facility] Automated blood platelet cou nt (count/volume)on 05-14-2020 Platelets (Bld) [#/Vol] 225 10*3/uL 150-450 [facility] Automated blood platelet jose n volume measurementon 05-14-2020 Platelet mean volume (Bld) [Entitic vol] 8.2 fL 6.3-10.7 [facility] Automated eosinophil %on Eosinophils/100 WBC (Bld) 1.5 % [facility] Automated eosinophil counton 05-14-2020 Eosinophils (Bld) [#/Vol] 0.1 10*3/uL 0.0-0.45 [facility] Automated erythrocyte distri bution width ratioon 05-14-2020 Erythrocyte distribution width (RBC) [Ratio] 12.3 % 11.9-15.3 [facility] Automated erythrocyte mean c orpuscular hemoglobin (mass per erythrocyte)on 05-14-2020 MCH (RBC) [Entitic mass] 35.2 pg 24.7-34.3 [facility] Automated erythrocyte mean c orpuscular hemoglobin concentration measurement (mass/volon 05-14-2020 MCHC (RBC) [Mass/Vol] 34.2 g/dL 32.0-35.0 [facility] Automated erythrocyte mean c orpuscular volumeon 05-14-2020 MCV (RBC) [Entitic vol] 102.9 fL 80-100 F [facility] Automated monocyte %on 05-14 Monocytes/100 WBC (Bld) 7.0 % F [facility] Automated neutrophil %on Neutrophils/100 WBC (Bld) 56.0 % [facility] Blood erythrocytes automated count (number/volume)on 05-14-2020 RBC (Bld) [#/Vol] 4.08 10*6/uL 3.60-5.00 [facility] Blood hemoglobin measurement (mass/volume)on 05-14-2020 Hemoglobin (Bld) [Mass/Vol] 14.3 g/dL 11.8-15.4 [facility] Blood leukocytes automated c ount (number/volume)on 05-14-2020 WBC (Bld) [#/Vol] 7.9 10*3/uL 4.5-11.0 [facility] Blood neutrophil count by au tomated method (number/volume)on 05-14-2020 Neutrophils (Bld) [#/Vol] 4.4 10*3/uL 1.8-7.7 [facility] Estimated glomerular filtrat ion rate (GFR) non- Americanon 05-14-2020 GFR/1.73 sq M predicted among non-blacks MDRD (S/P/Bld) [Vol rate/Area] mL/min/{1.73_m2} [facility] Hematocrit [Volume Fraction] of Blood by Automated counton 05-14-2020 Hematocrit (Bld) [Volume fraction] 41.9 % 34.0-46.4 [facility] Otheron 05-14-2020 GFR/1.73 sq M.predicted MDRD (S/P/Bld) [Vol rate/Area] mL/min/{1.73_m2} [facility] Comment on above: GFR estimated refere nce range: According to KDOQI guidelines, <60 ml/min/1.73m2 is sufficient to diagnose a patient with chronic kidney disease. Nucleated RBC/100 WBC (Bld) [Ratio] 0.1 % 0-0.5 [facility] Creatinine Clearance (Chem N/A [facility] Serum or plasma calcium octavio urement (mass/volume)on 05-14-2020 Calcium [Mass/Vol] 10.1 mg/dL 8.2-10.2 [facility] Serum or plasma chloride jose surement (moles/volume)on 05-14-2020 Chloride [Moles/Vol] 101 mmol/L 95-114 [facility] Serum or plasma creatinine m easurement with calculation of estimated glomerular filtron 05-14-2020 Creatinine [Mass/Vol] 0.60 mg/dL 0.44-1.03 [facility] Serum or plasma glucose octavio urement (mass/volume)on 05-14-2020 Glucose [Mass/Vol] 94 mg/dL 70-100 [facility] Comment on above: ADA recommended refe rence rangeRandom Glucose Reference Range is dependent on time and content of last meal. Glucose of more than 200 mg/dL in a nonstressed, ambulatory subject supports the diagnosis of Diabetes Mellitus. Serum or plasma potassium me asurement (moles/volume)on 05-14-2020 Potassium [Moles/Vol] 4.3 mmol/L 3.5-5.1 [facility] Serum or plasma sodium measu rement (moles/volume)on 05-14-2020 Sodium [Moles/Vol] 140 mmol/L 136-146 [facility] Serum or plasma total carbon dioxide measurement (moles/volume)on 05-14-2020 CO2 [Moles/Vol] 27.2 mmol/L 22.0-30.0 [facility] Serum or plasma urea nitroge n measurement (mass/volume)on 05-14-2020 Urea nitrogen [Mass/Vol] 7 mg/dL 9- [facility] Vital Signs Date Time Vital Sign Value Performing Clinician Facility 08-17-2022 16:00-0400 Body height 160.02 cm Gina Blades Other [facility] Other 08-17-2022 16:00-0400 Body mass index (BMI) [Ratio] 40.56 kg/m2 Gina Blades Other [facility] Other 08-17-2022 16:00-0400 Body weight 103.87 kg Gina Blades Other [facility] Other 08-17-2022 16:00-0400 Diastolic blood pressure 82 mm[Hg] Gina Blades Other [facility] Other 08-17-2022 16:00-0400 Systolic blood pressure 126 mm[Hg] Gina Blades Other [facility] Other Encounters Encounter Date Encounter Type Care Provider Facility Start: 10-27-2022 ambulatory NARENDRANATH LAKSHMIPATHY . Facility:[facility] Start: 10-13-2022 End: 10-13-2022 ambulatory NARENDRANATH LAKSHMIPATHY . Facility:[facility] Start: 10-06-2022 End: 10-07-2022 ambulatory NARENDRANATH LAKSHMIPATHY . Facility:[facility] Start: 09-08-2022 End: 09-08-2022 ambulatory Gina Blades Other [facility] Other Start: 09-08-2022 Telephone encounter Gina Tobiass [facility] Start: 09-01-2022 End: 09-02-2022 ambulatory NARENDRANATH LAKSHMIPATHY . Facility: Start: 08-17-2022 End: 08-17-2022 ambulatory Gina Guerrero Facility:[facility] Start: 08-17-2022 End: 08-17-2022 Patient encounter procedure DO Roberto Roth Work Phone: [facility] [address] [place] Work Phone: Start: 08-17-2022 End: 08-17-2022 ambulatory DO Roberto Roth Work Phone: [facility] Work Phone: Start: 08-17-2022 Office outpatient ne w 45 minutes Gina Blades [facility] Start: 07-16-2022 End: 07-16-2022 ambulatory Paresh Haladay Facility:[facility] Start: 07-16-2022 End: 07-17-2022 ambulatory DO Roberto Roth Work Phone: [facility] Work Phone: Start: 07-16-2022 End: 07-16-2022 Patient encounter procedure DO Roberto Roth Work Phone: [facility] [address] Work Phone: Start: 07-03-2022 End: 07-03-2022 ambulatory Aby Eisenstein Facility:[facility] Start: 07-03-2022 End: 07-03-2022 ambulatory DO Roberto Roth Work Phone: [facility] Work Phone: Start: 07-03-2022 End: 07-03-2022 Patient encounter procedure DO Roberto Roth Work Phone: [facility] [address] [place] Work Phone: Start: 06-23-2022 End: 06-23-[address] HOOD RAUSCH . Facility:[facility] Start: 05-29-2022 End: 05-30-[address] HOOD RAUSCH . Facility:[facility] Start: 05-14-2022 End: 05-15-2022 ambulatory ADA SINGH . Facility:[facility] Start: 03-12-2022 End: 03-13-[address] HOOD RAUSCH . Facility:[facility] Start: 02-13-2022 Encounter for preprocedural laboratory examination DR HOOD RAUSCH . [facility] Start: 02-10-2022 End: 02-10-[address] HOOD RAUSCH . Facility:[facility] Start: 02-06-2022 End: 02-07-[address] HOOD RAUSCH . Facility:[facility] Start: 02-06-2022 End: 02-07-2022 Encounter for preprocedural laboratory examination DR HOOD RAUSCH . Facility:[facility] Start: 02-03-2022 End: 02-03-[address] HOOD RAUSCH . Facility:[facility] Start: 01-31-2022 End: 01-31-2022 Patient encounter procedure DO Roberto Roth Work Phone: [facility] Start: 01-16-[address] HOOD RAUSCH . Faci lity:[facility] Start: 01-07-2022 End: 01-08-[address] HOOD RAUSCH . Facility:[facility] Start: 05-20-2020 End: 05-20-2020 Patient encounter procedure Roberto Roth -Pre-Surgical Testing Start: 05-14-2020 End: 05-14-2020 Patient encounter procedure Roberto Roth -Pre-Surgical Testing Start: 04-26-2020 End: 04-26-2020 Patient encounter procedure Roberto Roth -XRay [facility] Procedures Date Procedure Procedure Detail Performing [...] XR hi p RT min 2V(w/wo pelvis)* [facility] Start: 08-17-2022 XR Hip - right 2 Views [facility] Start: 07-16-2022 Bacteria identified in Urine by Culture [facility] Start: 07-16-2022 Hemolytic complement CH50 level [facility] Start: 07-16-2022 [facility] Complement C3 [Mass/volume] in Serum or Plasma [facility] Complement C4 [Mass/volume] in Serum or Plasma [facility] Homogenous nuclear A b pattern [Titer] in Serum [facility] Nuclear Ab [Titer] i n Serum [facility] Immunizations Immunization Date Immunization Notes Care Provider Fa cility 11-09-2020 COVID-19 mRNA-1273 (Moderna) DO Roberto Roth Work Phone: [facility] 10-12-2020 COVID-19 mRNA-1273 (Moderna) DO Roberto Roth Work Phone: [facility] 05-23-2020 influenza, injectabl e, quadrivalent, preservative free DO Roberto Roth Work Phone: [facility] Payers Date Payer Category Payer Self-pay [id number] 1970 Unknown [id number] 2.16.84 0.1.177478.3.579.2.593 1970 Unknown [id number] .16.84 0.1.921805.3.579.2.59 1970 Unknown [id number] .16.84 0.1.104924.3.579.2.593 1970 Unknown [id number] .16.84 0.1.217665.3.579.2.593 1968 Unknown [id number] .16.84 0.1.970714.3.579.2.593 1968 Unknown [id number] 2.16.84 0.1.255375.3.579.2.593 1968 Unknown [id number] 2.16.84 0.1.784091.3.579.2.593 1970 Unknown [id number] 2.16.84 0.1.520903.3.579.2.593 1968 Unknown [id number] 2.16.84 0.1.134536.3.579.2.593 1968 Unknown [id number] 2.16.84 0.1.864834.3.579.2.593 1968 Unknown [id number] 2.16.84 0.1.005897.3.579.2.593 1968 Unknown [id number] 2.16.84 0.1.419419.3.579.2.593 1968 Unknown [id number] 2.16.84 0.1.383465.3.579.2.593 1968 Unknown [id number] 2.16.84 0.1.415134.3.579.2.593 1968 Unknown [id number] 2.16.84 0.1.130024.3.579.2.593 1959 Unknown [id number] Unknown [id number] Unknown [id number] .16.8 40.1.596734.3.579.2.531 Unknown [id number] .16.8 40.1.116556.3.579.2.531 Unknown [id number] .16.8 40.1.563968.3.579.2.531 Social History Date Type Detail Facility Start: 05-14-2020 End: 06-23-2021 Tobacco smoking status MTIS Smoker (finding) [facility] Start: 1970 Sex Assigned At Female F [facility] Start: 06-23-1987 History of tobacco use [facility] Work Phone: Medical Equipment Procedure Code Equipment Code Equipment Origin al Text Equipment Identifier Dates Fusion, spine, lumbar, XLIF CANCELLOUS COARSE 7.5CC FDA Start: 05-22-2020 Fusion, spine, lumbar, XLIF Bone-screw internal spinal fixation system, non-sterile ()[id number] FDA Start: 05-22-2020 Fusion, spine, lumbar, XLIF Bone-screw internal spinal fixation system, non-sterile ()[id number] FDA Start: 05-22-2020 Fusion, spine, lumbar, XLIF Bone-screw internal spinal fixation system, non-sterile ()[id number] FDA Start: 05-22-2020 Fusion, spine, lumbar, XLIF CANCELLOUS COARSE 7.5CC FDA Start: 05-22-2020 Fusion, spine, lumbar, XLIF Bone-screw internal spinal fixation system, non-sterile ()[id number] FDA Start: 05-22-2020 Fusion, spine, lumbar, XLIF Bone-screw internal spinal fixation system, non-sterile ()[id number] FDA Start: 05-22-2020 Fusion, spine, lumbar, XLIF Polymeric spinal fusion cage, non-sterile ()[id number] FDA Start: 05-22-2020 Fusion, spine, lumbar, XLIF Dura mater graft, bovine ()[id number] FDA Start: 05-22-2020 Fusion, spine, lumbar, XLIF MAS REDUCTION FIXATION ADD LEV FDA Start: 05-22-2020 Fusion, spine, lumbar, XLIF XLIF 1 LEVEL MAS REDUCTION FDA Start: 05-22-2020 Fusion, spine, lumbar, XLIF Spinal fusion graft kit ()[id number] FDA Start: 05-22-2020 Fusion, spine, lumbar, XLIF Bone matrix implant, human-derived ()[id number] FDA Start: 05-22-2020 Fusion, spine, lumbar, XLIF Metallic spinal fusion cage, non-sterile ()[id number] FDA Start: 05-22-2020 Fusion, spine, lumbar, XLIF Bone-screw internal spinal fixation system, non-sterile ()[id number] FDA Start: 05-22-2020 Fusion, spine, lumbar, XLIF [...] pill b.i.d. and to continue to use Arrowsmith 7.5 mg t.i.d. We did reduce the use at her last visit from 90 pills a month to 80 pills to last one month's time. She appears to be tolerating this transition quite well. I have asked her to continue with gabapentin 600 mg t.i.d. Her JOYCE on today's visit is 28. She reports the Arrowsmith does improve her quality of life, level of functioning and sleep pattern, and she denies any side effects. As part of providing excellent, safe, comprehensive care, the following was completed at our patient's visit: 1. A medication reconciliation and review to ensure accurate knowledge of current/active medications, including asking our patients to inform us about any iivo-xrq-nwycjrl medications or herbal remedies/nutritional supplements/alternative remedies. 2. [...] options with their primary care provider. [facility] 09-01-2022 Note CONSULTATION CONSULTATION DATE: 09/01/2022 [...] our patients to inform us about any edxt-gex-gskpwev medications or herbal remedies/nutritional supplements/alternative remedies. 2. [...] options with their primary care provider. [facility] 08-17-2022 Evaluation note Encounter Date Diagnosis Assessment Notes Jul, Other chronic pain (ICD-10 - G89.29) Jul, Low back pain, unspecified (ICD-10 - M54.50) [employer] Other 02-16-2023 NoteCONSULTATION CONSULTATION DATE: 07/16/2022 HISTORY OF PRESENT ILLNESS: This is a 51-year-old female who returns to the clinic status post bilateral SI joint injection completed on 06/23/2022. The patient received 80% relief for one day and on day two felt worse than her normal baseline pain. Today, she rates her pain 8/10. Medications include gabapentin 600 mg t.i.d., Arrowsmith 7.5/325 b.i.d. and Mobic 15 mg daily. [...] her medications; Mobic 15 mg daily and Arrowsmith 7.5/325 b.i.d. She will return to the clinic in six weeks' time, in which we will, in addition to her PCPs office, review the MRI and form a plan of care at that time. Patient is in agreement to this plan.[id number] Note CONSULTATION CONSULTATION DATE: 05/29/2022 HISTORY OF [...] down. Medications include gabapentin 600 mg t.i.d., Arrowsmith 7.5/325 b.i.d. and diclofenac 50 mg daily. [...] care and will be followed up thereafter.[facility] [id number] NoteCONSULTATION CONSULTATION DATE: 05/14/2022 HISTORY OF PRESENT [...] as well as gabapentin 600 mg t.i.d., Arrowsmith 7.5/325 t.i.d. At her last appointment, she [...] Refills for gabapentin 600 mg t.i.d. and Arrowsmith 7.5/325 b.i.d. will be sent to her pharmacy. Patient agrees to move forward with the procedure. She will followed up in the clinic thereafter.[facility] [id number] NotePAIN MANAGEMENT CONSULTATION CONSULTATION DATE: 05/14/2022 CHIEF [...] with a sacroiliac joint injection under fluoroscopy.[facility] [id number] NoteCONSULTATION CONSULTATION DATE: 03/12/2022 ADDENDUM DIAGNOSIS: Lumbar spondylosis, lumbar degenerative disc disease, chronic lower back pain and a history of a lumbar fusion.[facility] [id number] Note CONSULTATION CONSULTATION DATE: 03/12/2022 This is [...] Current medications include gabapentin 600 mg t.i.d., Arrowsmith 7.5/325 b.i.d., diclofenac cream and ibuprofen. She [...] with her vitamins as well as her Arrowsmith. The dose of frequency will not be changed. We will have the patient return to the clinic in two months' time for re-evaluation. The patient is inquiring about an increase of her Arrowsmith, possibly during the winter months. There will be no changes today.[id number] NoteCONSULTATION CONSULTATION DATE: 01/07/2022 This is a [...] Current medications include gabapentin 600 mg b.i.d., Arrowsmith 7.5/325 b.i.d., diclofenac topical, multivitamin regimen and ibuprofen p.r.n. She has tried diclofenac in the past but was unable to tolerate it due to stomach issues but low-dose ibuprofen she can tolerate. She is needing Arrowsmith and gabapentin refill today. REVIEW OF SYSTEMS, [...] subsequently move to the left. Refill for Arrowsmith 7.5/325 b.i.d. and gabapentin 600 mg b.i.d. will be sent to the pharmacy. The patient is encouraged to increase magnesium in her vitamin regimen as well as menthol heat rub, seated stretches that were demonstrated and heat application. The patient agrees with the plan of care and would like to move forward and she will follow-up in the clinic post procedure.[facility]Evaluation noteNo assessment information available[facility] Work Phone: Evaluation noteNo InformationNortGuthrie [facility] [employer] Other History general Narrative - Reported* Type [...] see above Hospitalization History 4 child births [facility] [employer] Other Advance Directives No Advanced Directives Records [...] DATE CREATED AUTHOR 08/01/[address] [facility] dical Specialist DATE CREATED AUTHOR AUTHOR'S ORGANIZ ATION 11/06/2022 [facility] DATE CREATED AUTHOR AUTHOR'S ORGANIZ ATION 02/04/2023 [facility] REASON FOR VISIT (unrecogniz ed section [...] BE BASED ON THE PRIMARY CLINICAL RECORDS. [employer] provides no warranty or guarantee of the accuracy or completeness of information in this document.
[2023-10-18 08:53] VITALS: BP 136/85; PULSE 89; TEMP 37; O2SAT 97
[2023-10-18 09:27] VITALS: BP 141/81; PULSE 86; PULSE 87; O2SAT 95
[2023-10-18] MEDS: TRIAMCINOLONE ACETONIDE 40 MG/ML VIAL INJ (09:29)
[2023-10-18] MEDS: BUPIVACAINE HCL 0.25% PF 25 MG/10 ML VIAL INJ (09:29)
[2023-10-18] MEDS: IOHEXOL 240 MG/ML - 10 ML VIAL INJ (09:29)
[2023-10-18] MEDS: LIDOCAINE HCL 2% PF 100 MG/5 ML VIAL INJ (09:29)
--- NOTE | 2023-10-18 09:30 | W.PM.PROCNOT ---
Date of procedure: 10/18/23 Pre-op diagnosis: Sacroiliitis, right Post-op diagnosis: same as pre-op Procedure: Procedure: Right sacroiliac joint injection Medications: Bupivacaine 0.25% 1cc, kenalog 40mg After informed consent was obtained, the patient was brought to the medical procedure unit and placed in the prone position, when a timeout was completed verifying correct patient, procedure, site, positioning, implant, and/or special equipment.? The skin overlying the area was prepped and draped in standard sterile fashion using alcohol.? A 25-gauge needle was inserted towards the right sacroiliac joint under direct fluoroscopic imaging.? Needle tip was advanced until the joint was encountered.? We instilled a total of 2 mL of solution.? Postoperatively needles were removed.? The patient tolerated the procedure well without complication.? The patient reported reduction in pain symptoms postoperatively. Anesthesia: Local Surgeon: Aaron Mosqueda Pathology: none sent Condition: stable Disposition: no change
[2023-10-18 09:31] VITALS: BP 143/76
== END 2023-10-18 09:35 | disposition home or self-care (01) ==
LOC: SURGOUT 08:36
PROVIDERS: Visit Provider Anesthesiology
DX: M46.1 Sacroiliitis, not elsewhere classified (principal)
CPT/HCPCS: 27096; Q9966

== ENCOUNTER 2023-11-02 14:46 | Outpatient (OUT) | payer BC, SELFPAY ==
--- NOTE | 2023-11-02 | CONS_ITS ---
CONSULTATION DATE: 11/02/2023 TO: Dr. Howe CHIEF COMPLAINT: Includes right hip pain, right leg pain. HISTORY: She reports the pain as being 4-7/10 pain, described as a deep, aching, sharp pain, which is increased with activities such as standing and walking and performing transitioning maneuvers. She feels most comfortable in the semi-recumbent position. Denies any change in bowel and bladder habits or new sensorimotor changes in the lower extremities. MEDICATION: Current medication includes [place] 7.5 mg. She reports she is using the medication appropriately without any signs of acceleration. She reports it does improve her quality of life, level of functioning and sleep pattern. She is also prescribed baclofen 10 mg b.i.d., gabapentin 600 mg t.i.d. and Mobic 15 mg daily. EXAM: Notable for patient having no clinical radiculopathy or myelopathy involving the lower extremities and a positive right sided FABERs sign and significant myofascial spasm of the right gluteus medius. IMPRESSION: Our impression is patient with chronic pain secondary to right hip joint pain, possibly secondary to osteoarthrosis, degenerative joint disease and myofascial dysfunction. RECOMMENDATIONS: I recommend that she consider right hip films. I have asked her to reduce the use of [place] to no more than 70 pills per month. We will continue to wean down as tolerated by the patient. Going to ask her to continue with baclofen as ordered. She is currently awaiting neurosurgical consultation and will see the patient back in the office in approximately 4-6 weeks time. As part of providing excellent, safe, comprehensive care, the following was completed at our patient's visit: 1. A medication reconciliation and review to ensure accurate knowledge of current/active medications, including asking our patients to inform us about any [id number]-[id number] medications or herbal remedies/nutritional supplements/alternative remedies. 2. A review to specifically ensure our patients have had annual screening for: elevated body mass index (BMI, see intake chart for exact total), tobacco use, screening for depression, and screening for unhealthy alcohol use. When screening is concerning, patients are provided with education and the specific recommendation to discuss the concerning health issue and treatment options with their primary care provider. JESSICA
== END 2023-11-02 14:47 | disposition home or self-care (01) ==
LOC: PM 14:46
PROVIDERS: Visit Provider Anesthesiology Pain Medicine
DX: M25.551 Pain in right hip (principal); M16.11 Unilateral primary osteoarthritis, right hip; M79.18 Myalgia, other site
CPT/HCPCS: 73502; G0463

== ENCOUNTER 2023-11-02 15:52 | Outpatient (OUT) | payer BC, SELFPAY ==
--- NOTE | 2023-11-02 | XR_ITS ---
The [address] [address] Patient Name: AKASH LIU MRN: [id number] date: 1970 Sex: F Assigned Patient Location: [facility] Current Patient Location: Accession/Order Number: [id number] Exam Date: 11/02/2023 16:14 Report Date: 11/04/2023 07:20 At the request of: NON-STAFF PHYSICIAN Procedure: XR hip RT min 2V PROCEDURE: XR hip RT min 2V HISTORY: right hip pain , chronic COMPARISON: None. FINDINGS: BONES:No fracture, acute abnormality, or significant arthropathy. SOFT TISSUES:No visible soft tissue swelling. EFFUSION:None visible. OTHER: Negative. XR/XR hip RT min 2V IMPRESSION: 1. No acute bone abnormality or significant degenerative joint disease. Electronically authenticated by: KRISSY NEAL Date: 11/04/2023 07:20
--- OUTSIDE RECORDS SUMMARY | 2023-11-02 16:16 | XMS_ITS ---
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 Name Role Phone Roberto Roth Primary Care Provider Justice Cruz Attending Provider DO Roberto Roth Primary Care Provider MD Hood Rausch Attending Provider DO Roberto Roth Primary Care Provider CALVIN Yu Attending Provider MD Paresh Tian Attending Provider Roth, DO Mejia Primary Care Provider CALVIN Yu Attending Provider MD Paresh Tian Attending Provider [phone] MD Gina Guerrero Attending Provider Gina Guerrero [...] ROTH, DR ROBERTO Bhakta Primary Care Unavailable DEANE, DR DASHA Gomez Consulting Unavailable SINGH ., [...] Tian Attending Unavailable Roberto Roth Primary [facility] Unavailable JatindersGina Admitting Unavailable Gina Guerrero Attending Unavailable Roberto Roth Primary Care Unavailable Panda BUSTILLO, Aaron Musa Attending Unavailable Unavailable Unavailable Unavailable Allergies Allergy Classification Reported Allergen(s) Allergy Type Date of Onset Reaction(s) Facility (6 sources) Amoxicillin; Translations: [amoxicillin] Drug Allergy 0 Nausea [facility] (7 sources) Penicillins; Translations: [Penicillins] Propensity to adverse reactions 4 Nausea [facility] (6 sources) clavulanic acid; Translations: [clavulanic acid] Propensity to adverse reactions 0 [facility] (3 sources) Amoxicillin / Clavulanate; Translations: [Augmentin] Drug Allergy 4 Unknown [facility] Repository (2 sources) Azithromycin Drug Allergy diarrhea [facility] Other (2 sources) Penicillin G Drug Allergy Unknown [facility] Other Encounters Encounter Date Encounter Type Care Provider Facility Start: 10-18-2023 End: 10-19-2023 ambulatory Aaron Mosqueda MD Facility:[facility] Start: 10-27-2022 ambulatory NARENDRANATH LAKSHMIPATHY . Facility: Start: 10-13-2022 End: 10-13-2022 ambulatory NARENDRANATH LAKSHMIPATHY . Facility: Start: 10-06-2022 End: 10-07-2022 ambulatory NARENDRANATH LAKSHMIPATHY . Facility:[facility] Start: 09-08-2022 End: 09-08-2022 ambulatory Gina Blades Other [facility] Other Start: 09-08-2022 Telephone encounter Gnia Tobiass F [facility] Neurosurgery Start: 09-01-2022 End: 09-02-2022 ambulatory NARENDRANATH LAKSHMIPATHY . Facility: Start: 08-17-2022 End: 08-17-2022 ambulatory Gina A Blades Facility:[facility] Start: 08-17-2022 End: 08-17-2022 Patient encounter procedure DO Roberto Roth Work Phone: [facility] [place] Work Phone: Start: 08-17-2022 End: 08-17-2022 ambulatory DO Roberto Roth Work Phone: [facility] Work Phone: Start: 08-17-2022 Office outpatient ne w 45 minutes Gina Guerrero [facility] Neurosurgery Start: 07-16-2022 End: 07-16-2022 ambulatory Paresh Mickyrhettjames Facility:[facility] Start: 07-16-2022 End: 07-17-2022 ambulatory DO Roberto Roth Work Phone: [facility] Work Phone: Start: 07-16-2022 End: 07-16-2022 Patient encounter procedure DO Roberto Roth Work Phone: [facility] [address] Work Phone: Start: 07-03-2022 End: 07-03-2022 ambulatory Aby Yu Facility:[facility] Start: 07-03-2022 End: 07-03-2022 ambulatory DO Roberto Roth Work Phone: [facility] Work Phone: Start: 07-03-2022 End: 07-03-2022 Patient encounter procedure DO Roberto Roth Work Phone: [facility] [place] Work Phone: Start: 06-23-2022 End: 06-23-[address] HOOD RAUSCH . Facility:[facility] Start: 05-29-2022 End: 05-30-[address] HOOD RAUSCH . Facility:[facility] Start: 05-14-2022 End: 05-15-2022 ambulatory ADA SINGH . Facility:[facility] Start: 03-12-2022 End: 03-13-[address] HOOD RAUSCH . Facility:[facility] Start: 02-13-2022 Encounter for preprocedural laboratory examination DR HOOD RAUSCH . [facility] Start: 02-10-2022 End: 02-10-[address] HOOD RAUSCH . Facility:[facility] Start: 02-06-2022 End: 02-07-[address] HOOD RAUSCH . Facility:[facility] Start: 02-06-2022 End: 02-07-2022 Encounter for preprocedural laboratory examination DR HOOD RAUSCH . Facility:[facility] Start: 02-03-2022 End: 02-03-[address] HOOD RAUSCH . Facility:[facility] Start: 01-31-2022 End: 01-31-2022 Patient encounter procedure DO Roberto Roth Work Phone: [facility] Start: 01-16-[address] HOOD RAUSCH . Faci lity:[facility] Start: 01-07-2022 End: 01-08-[address] HOOD RAUSCH . Facility:[facility] Start: 05-20-2020 End: 05-20-2020 Patient encounter procedure Roberto Roth -Pre-Surgical Testing Start: 05-14-2020 End: 05-14-2020 Patient encounter procedure Roberto Roth -Pre-Surgical Testing Start: 04-26-2020 End: 04-26-2020 Patient encounter procedure Roberto Roth -XRay [facility] Medical Equipment Procedure Code Equipment Code Equipment Origin al Text Equipment Identifier Dates Fusion, spine, lumbar, XLIF CANCELLOUS COARSE 7.5CC FDA Start: 05-22-2020 Fusion, spine, lumbar, XLIF Bone-screw internal spinal fixation system, non-sterile ()[id number] FDA Start: 05-22-2020 Fusion, spine, lumbar, XLIF Bone-screw internal spinal fixation system, non-sterile ()[id number] FDA Start: 05-22-2020 Fusion, spine, lumbar, XLIF Bone-screw internal spinal fixation system, non-sterile ()[id number] FDA Start: 05-22-2020 Fusion, spine, lumbar, XLIF CANCELLOUS COARSE 7.5CC FDA Start: 05-22-2020 Fusion, spine, lumbar, XLIF Bone-screw internal spinal fixation system, non-sterile ()[id number] FDA Start: 05-22-2020 Fusion, spine, lumbar, XLIF Bone-screw internal spinal fixation system, non-sterile ()[id number] FDA Start: 05-22-2020 Fusion, spine, lumbar, XLIF Polymeric spinal fusion cage, non-sterile ()[id number] FDA Start: 05-22-2020 Fusion, spine, lumbar, XLIF Dura mater graft, bovine ()[id number] FDA Start: 05-22-2020 Fusion, spine, lumbar, XLIF MAS REDUCTION FIXATION ADD LEV FDA Start: 05-22-2020 Fusion, spine, lumbar, XLIF XLIF 1 LEVEL MAS REDUCTION FDA Start: 05-22-2020 Fusion, spine, lumbar, XLIF Spinal fusion graft kit ()[id number] FDA Start: 05-22-2020 Fusion, spine, lumbar, XLIF Bone matrix implant, human-derived ()[id number] FDA Start: 05-22-2020 Fusion, spine, lumbar, XLIF Metallic spinal fusion cage, non-sterile ()[id number] FDA Start: 05-22-2020 Fusion, spine, lumbar, XLIF Bone-screw internal spinal fixation system, non-sterile ()[id number] FDA Start: 05-22-2020 Fusion, spine, lumbar, XLIF [...] Goals Date Patient Goal Desired Activity /State Immunizations Immunization Date Immunization Notes Care Provider Jah dasilva 11-09-2020 COVID-19 mRNA-1273 (Moderna) DO [place] Work Phone: [facility] 10-12-2020 COVID-19 mRNA-1273 (Moderna) DO [employer] Work Phone: [facility] 05-23-2020 influenza, injectabl e, quadrivalent, preservative free DO [employer] Work Phone: [facility] Medications Current Medications Medication Drug Class(es) Dates Sig (Normalized) Sig (Original) acetaminophen 500 mg oral tablet (4 sources) Start: 05-31-2020 take 500 mg by mouth every four hours Acetaminophen Active 500 MG PO Q4H 100 May 31, 2020 1:00am [id number] 200 actuat albuterol 0.09 mg/actuat metered dose [...] by mouth three times daily Hydrocodone-Acetami nophen (Penrose) 5-325 mg Tablet Discontinued 1 TAB PO Three times daily March 18, 2019 12:00am May 23, 2020 4:59pm Penrose Active azithromycin 250 mg oral tablet (4 [...] Three times daily February 14, 2021 12:00am Angélica 24th, 2022 5:30pm cyclobenzaprine hydrochloride 10 mg oral tablet [...] Discontinued 5 MG PO Four times daily 29 03May 23, 2020 1:00am June 01, 2020 10:48am [...] PATCH TRANSDERML Daily May 31, 2020 1:00am June 23, [...] 18, 2019 12:00am June 01, 2020 10:48am Payers Date Payer Category Payer Unknown 2022 Self-pay [id number] 1970 Unknown [id number] .16.84 [id number] 1970 Unknown [id number] .16.84 0.1.473911.3.579.2.59 1970 Unknown [id number] .16.84 0.1.069058.3.579.2.59 1970 Unknown [id number] .16.84 0.1.402667.3.579.2.59 1970 Unknown [id number] 2.16.84 0.1.336948.3.579.2.593 1970 Unknown [id number] 2.16.84 0.1.549095.3.579.2.593 1970 Unknown [id number] 2.16.84 0.1.784555.3.579.2.593 1970 Unknown [id number] 2.16.84 0.1.495615.3.579.2.593 1970 Unknown [id number] 2.16.84 0.1.493770.3.579.2.593 1970 Unknown [id number] 2.16.84 0.1.577900.3.579.2.593 1970 Unknown [id number] 2.16.84 0.1.013173.3.579.2.593 1968 Unknown [id number] 2.16.84 0.1.010983.3.579.2.593 1968 Unknown [id number] 2.16.84 0.1.337167.3.579.2.593 1968 Unknown [id number] 2.16.84 0.1.289637.3.579.2.593 1968 Unknown [id number] 2.16.84 0.1.237369.3.579.2.593 1970 Unknown [id number] 2.16. 840.1.168331.3.579.2.196 1959 Unknown [id number] Unknown [id number] Unknown [id number] 2.16.8 40.1.095154.3.579.2.531 Unknown [id number] 2.16.8 40.1.652606.3.579.2.531 Unknown [id number] 2.16.8 40.1.153225.3.579.2.531 Plan of Treatment Date Care Activity Detail Author Start: 08-17-2022 Plain X-ray of right hip XR hi p RT min 2V(w/wo pelvis)* [facility] Start: 08-17-2022 XR Hip - right 2 Views [facility] Start: 07-16-2022 Bacteria identified in Urine by Culture [facility] Start: 07-16-2022 Hemolytic complement CH50 level [facility] Start: 07-16-2022 [facility] Complement C3 [Mass/volume] in Serum or Plasma [facility] Complement C4 [Mass/volume] in Serum or Plasma [facility] Homogenous nuclear A b pattern [Titer] in Serum [facility] Nuclear Ab [Titer] i n Serum [facility] Problems Active Problems Problem Classification Problem Date [...] sources) High risk drug monitoring status; 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] Episodic Other [...] Translations: [LOW BACK PAIN, UNSPECIFIED] Onset: 09-01-2022 Procedures Date Procedure Procedure Detail Performing Clinician Start: 07-16-2022 Urine culture DO Roberto reyes Work Phone: Start: 07-03-2022 X-ray of lumbar spin e, six views including bending views DO Roberto Roth Work Phone: Start: 04-26-2020 X-ray of lumbar spin e, four views Roberto Roth Results Test Name Value Interpretation Reference Range Facility XR hip RT min 2V(w/wo pelvis )*on 08-18-2022 XR hip RT min 2V(w/wo pelvis)* [facility] Main [address] [address] XRay Report Signed Patient: Kim Hill MR#: [id number] : 1970 Acct:[id number] Age/Sex: 51 / F ADM Date: 08/17/22 Loc: XD Room: Type: [facility] Attending Dr: Gina Guerrero MD [...] Tate Alva M.D.08/18/2022 10:01 AM Dictation Location: [place] [address] Transcribed By: [facility] 08/18/22 1001 Dictated By: Tate Alva II, MD 08/18/22 0957 Signed By: 08/18/22 1001 [facility] MRI Lumbar Spine w/o + w/on [...] from the hardware. Posterior decompression with bilateral sitven and pedicle screw fixation extending from L3 [...] by Justice Lucas on 07/31/2022 0915 Normal [facility] Specialist ASTER Antinuclear Antibodieson 07-16-2022 Antinuclear Abs, IFA Positive Critically abnormal . [facility] Comment on above: Result Comment: Nega tive <1:80 Borderline 1:80 Positive >1:80 Performed By: #### A NA, C4, C3, CH50 #### [facility] , #### CRP, CREAT, ADDONUAPLUS, CUU, ESR, CBC #### [facility] [address] Note 1 Normal . [facility] Comment on above: Result Comment: For more information about Hep-2 cell patterns use ANApatterns.AddFleet, the official website for the International Consensus on Antinuclear Antibody (ASTER) Patterns (ICAP). - A positive ASTER result may occur in healthy individuals (low titer) or be associated with a variety of diseases. See interpretation chart which is not all inclusive: Pattern Antigen Detected Suggested Disease Association Homogeneous DNA(ds,ss), SLE - High titers Nucleosomes, Histones Drug-induced SLE Speckled Sm, FAST FOOD SHIFT LEAD, SCL-70, SLE,MCTD,PSS (diffuse form), SS-A/SS-B Sjogrens Nucleolar SCL-70, PM-1/SCL High titers Scleroderma, PM/DM Centromere Centromere PSS (limited form) w/Crest syndrome variable Nuclear Dot [id number] Primary Biliary Cirrhosis Nuclear GP210, Primary Biliary Cirrhosis Membrane kailyn A,B,C Performed at: [facility] [address] [id number] Yard Switcher: Collin Rodriguez PhD, Phone: [phone] Performed By: #### A NA, C4, C3, CH50 #### [facility] , #### CRP, CREAT, ADDONUAPLUS, CUU, ESR, CBC #### [facility] [address] Spindle Apparatus Pattern 1:160 High . [facility] Comment on above: Result Comment: [facility] nomenclature: [id number] Performed By: #### A NA, C4, C3, CH50 #### [facility] , #### CRP, CREAT, ADDONUAPLUS, CUU, ESR, CBC #### [facility] [address] Automated erythrocytes count in urine sediment (number/area)Ordered By: Paresh Tian on 07-16-2022 RBC Auto (Urine sed) [#/Area] 1-2 [HPF] 0-4 [facility] Automated leukocytes count i n urine sediment (number/area)Ordered By: Paresh Tian on 07-16-2022 WBC Auto (Urine sed) [#/Area] 20-49 [HPF] 0-4 [facility] Basophils Auto (Bld) [#/Vol] Ordered By: Paresh Tian on 07-16-2022 Basophils (Bld) [#/Vol] 0.0 10*3/uL 0.0-0.2 [facility] Basophils/100 WBC Auto (Bld) Ordered By: Paresh Tian on 07-16-2022 Basophils/100 WBC (Bld) 0.4 % . [facility] Bilirubin Test strip Ql (U)O rdered By: Paresh Tian on 07-16-2022 Bilirubin Ql (U) Negative Negative [facility] C reactive protein [Mass/vol ume] in Serum or PlasmaOrdered By: Paresh Tian on 07-16-2022 CRP [Mass/Vol] 0.8 mg/dL 0.0-1.0 [facility] C-Reactive Proteinon 023 C-Reactive Protein 0.8 mg/dL Normal 0.0-1.0 [facility] Comment on above: Result Comment: PERF ORMED BY: [place] [address] PATHOLOGIST AFFILIATE MARKETING COORDINATOR PENG POLO M.D. Performed By: #### A NA, C4, C3, CH50 #### [facility] , #### CRP, CREAT, ADDONUAPLUS, CUU, ESR, CBC #### [facility] [address] [place] [address] Color Auto (U)Ordered By: Afia Tian on 07-16-2022 Color (U) Yellow Yellow [facility] Complement C3on 07-16-2022 Complement C3 197 mg/dL High 82-167 [facility] Comment on above: Result Comment: Perf ormed at: - [facility] [address] [id number] Yard Switcher: Collin Rodriguez PhD, Phone: [phone] Performed By: #### A NA, C4, C3, CH50 #### [facility] , #### CRP, CREAT, ADDONUAPLUS, CUU, ESR, CBC #### [facility] [address] [place] [address] Complement C4on 07-16-2022 Complement C4 42 mg/dL High 12-38 [facility] Comment on above: Result Comment: PERF ORMED BY: [place] [address] PATHOLOGIST AFFILIATE MARKETING COORDINATOR PENG POLO M.D. Performed By: #### A NA, C4, C3, CH50 #### [facility] , #### CRP, CREAT, ADDONUAPLUS, CUU, ESR, CBC #### [address] Complement Total (CH50)on Complement Total (CH50) >60 Normal >41 F [facility] Comment on above: Result Comment: Age [...] out of range values. Performed at: - [facility] [id number] Yard Switcher: Collin Rodriguez PhD, Phone: [phone] PERFORMED BY: [place] [address] PATHOLOGIST AFFILIATE MARKETING COORDINATOR PENG POLO M.D. Performed By: #### A NA, C4, C3, CH50 #### [facility] , #### CRP, CREAT, ADDONUAPLUS, CUU, ESR, CBC #### [facility] [address] [place] [address] Complete Blood Count Auto Di ffon 07-16-2022 Basophils (Bld) [#/Vol] 0.0 10*3/uL Normal 0.0-0.2 [facility] Comment on above: Performed By: #### A NA, C4, C3, CH50 #### [facility] , #### CRP, CREAT, ADDONUAPLUS, CUU, ESR, CBC #### [address] Basophils/100 WBC (Bld) 0.4 % Normal . [facility] Comment on above: Performed By: #### A NA, C4, C3, CH50 #### [facility] , #### CRP, CREAT, ADDONUAPLUS, CUU, ESR, CBC #### [address] Eosinophils (Bld) [#/Vol] 0.1 10*3/uL Normal 0.0-0.45 [facility] Comment on above: Performed By: #### A NA, C4, C3, CH50 #### [facility] , #### CRP, CREAT, ADDONUAPLUS, CUU, ESR, CBC #### [address] Eosinophils/100 WBC (Bld) 1.1 % Normal . [facility] Comment on above: Performed By: #### A NA, C4, C3, CH50 #### [facility] , #### CRP, CREAT, ADDONUAPLUS, CUU, ESR, CBC #### [address] Erythrocyte distribution width (RBC) [Ratio] 13.0 % Normal 11.9-15.3 [facility] Comment on above: Performed By: #### A NA, C4, C3, CH50 #### [facility] , #### CRP, CREAT, ADDONUAPLUS, CUU, ESR, CBC #### [address] Hematocrit (Bld) [Volume fraction] 45.3 % Normal 34.0-46.4 [facility] Comment on above: Performed By: #### A NA, C4, C3, CH50 #### [facility] , #### CRP, CREAT, ADDONUAPLUS, CUU, ESR, CBC #### [address] Hemoglobin (Bld) [Mass/Vol] 15.2 g/dL Normal 11.8-15.4 [facility] Comment on above: Performed By: #### A NA, C4, C3, CH50 #### [facility] , #### CRP, CREAT, ADDONUAPLUS, CUU, ESR, CBC #### [address] Lymphocytes (Bld) [#/Vol] 3.7 10*3/uL Normal 1.00-4.8 [facility] Comment on above: Performed By: #### A NA, C4, C3, CH50 #### [facility] , #### CRP, CREAT, ADDONUAPLUS, CUU, ESR, CBC #### [address] Lymphocytes/100 WBC (Bld) 35.0 % Normal . [facility] Comment on above: Performed By: #### A NA, C4, C3, CH50 #### [facility] , #### CRP, CREAT, ADDONUAPLUS, CUU, ESR, CBC #### [address] MCH (RBC) [Entitic mass] 33.8 pg Normal 24.7-34.3 [facility] Comment on above: Performed By: #### A NA, C4, C3, CH50 #### [facility] , #### CRP, CREAT, ADDONUAPLUS, CUU, ESR, CBC #### [address] MCV (RBC) [Entitic vol] 100.6 fL High 80-100 F [facility] Comment on above: Performed By: #### A NA, C4, C3, CH50 #### [facility] , #### CRP, CREAT, ADDONUAPLUS, CUU, ESR, CBC #### [address] Mean Corpuscular HGB Conc 33.6 g/dL Normal 32.0-35.0 [facility] Comment on above: Performed By: #### A NA, C4, C3, CH50 #### [facility] , #### CRP, CREAT, ADDONUAPLUS, CUU, ESR, CBC #### [address] Monocytes (Bld) [#/Vol] 0.7 10*3/uL Normal 0.0-0.8 [facility] Comment on above: Performed By: #### A NA, C4, C3, CH50 #### [facility] , #### CRP, CREAT, ADDONUAPLUS, CUU, ESR, CBC #### [place] [address] [place] Monocytes/100 WBC (Bld) 6.8 % Normal . [facility] Comment on above: Performed By: #### A NA, C4, C3, CH50 #### [facility] , #### CRP, CREAT, ADDONUAPLUS, CUU, ESR, CBC #### [place] [address] [place] Neutrophils (Bld) [#/Vol] 5.9 10*3/uL Normal 1.8-7.7 [facility] Comment on above: Performed By: #### A NA, C4, C3, CH50 #### [facility] , #### CRP, CREAT, ADDONUAPLUS, CUU, ESR, CBC #### [place] [address] [place] Neutrophils/100 WBC (Bld) 56.7 % Normal . [facility] Comment on above: Performed By: #### A NA, C4, C3, CH50 #### [facility] , #### CRP, CREAT, ADDONUAPLUS, CUU, ESR, CBC #### [address] NRBC% 0.1 /100{WBC} Normal 0-0.5 [facility] Comment on above: Performed By: #### A NA, C4, C3, CH50 #### [facility] , #### CRP, CREAT, ADDONUAPLUS, CUU, ESR, CBC #### [address] Platelet mean volume (Bld) [Entitic vol] 8.4 fL Normal 6.3-10.7 [facility] Comment on above: Performed By: #### A NA, C4, C3, CH50 #### [facility] , #### CRP, CREAT, ADDONUAPLUS, CUU, ESR, CBC #### [address] Platelets (Bld) [#/Vol] 242 10*3/uL Normal 150-450 [facility] Comment on above: Performed By: #### A NA, C4, C3, CH50 #### [facility] , #### CRP, CREAT, ADDONUAPLUS, CUU, ESR, CBC #### [address] RBC (Bld) [#/Vol] 4.50 10*6/uL Normal 3.60-5.00 [facility] Comment on above: Performed By: #### A NA, C4, C3, CH50 #### [facility] , #### CRP, CREAT, ADDONUAPLUS, CUU, ESR, CBC #### [address] WBC (Bld) [#/Vol] 10.4 10*3/uL Normal 3.8-11.6 [facility] Comment on above: Performed By: #### A NA, C4, C3, CH50 #### [facility] , #### CRP, CREAT, ADDONUAPLUS, CUU, ESR, CBC #### [address] Creatinineon 07-16-2022 Creatinine [Mass/Vol] 0.74 mg/dL Normal 0.44-1.03 [facility] Comment on above: Performed By: #### A NA, C4, C3, CH50 #### [facility] , #### CRP, CREAT, ADDONUAPLUS, CUU, ESR, CBC #### [address] Estimated GFR ( Sharon > 60 Normal [facility] Comment on above: Result Comment: GFR estimated reference range: According to KDOQI guidelines, <60 ml/min/1.73m2 is sufficient to diagnose a patient with chronic kidney disease. Performed By: #### A NA, C4, C3, CH50 #### [facility] , #### CRP, CREAT, ADDONUAPLUS, CUU, ESR, CBC #### [address] Estimated GFR (Non- Am > 60 [facility] Comment on above: Performed By: #### A NA, C4, C3, CH50 #### [facility] , #### CRP, CREAT, ADDONUAPLUS, CUU, ESR, CBC #### [address] Creatinine and Glomerular fi ltration rate.predicted panel (S/P/Bld)Ordered By: Paresh Tian on 07-16-2022 Creatinine [Mass/Vol] 0.74 mg/dL 0.44-1.03 [facility] Dipstick and Microscopicon 0 07-16-2022 Appearance (U) Clear Normal Clear [facility] Comment on above: Order Comment: Name Collection Type:: Clean-Voided Midstream Performed By: #### A NA, C4, C3, CH50 #### [facility] , #### CRP, CREAT, ADDONUAPLUS, CUU, ESR, CBC #### [facility] [address] [place] [address] Bacteria,Urine 4+ High None Seen [facility] Comment on above: Order Comment: Name Collection Type:: Clean-Voided Midstream Performed By: #### A NA, C4, C3, CH50 #### [facility] , #### CRP, CREAT, ADDONUAPLUS, CUU, ESR, CBC #### [facility] [address] [place] [address] Bilirubin,Urine Negative Normal Negative [facility] Comment on above: Order Comment: Name Collection Type:: Clean-Voided Midstream Performed By: #### A NA, C4, C3, CH50 #### [facility] , #### CRP, CREAT, ADDONUAPLUS, CUU, ESR, CBC #### [facility] [address] [place] [address] Color (U) Yellow Normal Yellow [facility] Comment on above: Order Comment: Name Collection Type:: Clean-Voided Midstream Performed By: #### A NA, C4, C3, CH50 #### [facility] , #### CRP, CREAT, ADDONUAPLUS, CUU, ESR, CBC #### [facility] [address] [place] [address] Glucose Ql (U) Normal Normal Normal [facility] Comment on above: Order Comment: Name Collection Type:: Clean-Voided Midstream Performed By: #### A NA, C4, C3, CH50 #### [facility] , #### CRP, CREAT, ADDONUAPLUS, CUU, ESR, CBC #### [facility] [address] [place] [address] [place] Hyaline Casts,Urine 0-8 Normal 0-8 [facility] Comment on above: Order Comment: Name Collection Type:: Clean-Voided Midstream Result Comment: PERF ORMED BY: [place] [address] PATHOLOGIST AFFILIATE MARKETING COORDINATOR PENG POLO M.D. Performed By: #### A NA, C4, C3, CH50 #### [facility] , #### CRP, CREAT, ADDONUAPLUS, CUU, ESR, CBC #### [address] Ketones Ql (U) Negative Normal Negative [facility] Comment on above: Order Comment: Name Collection Type:: Clean-Voided Midstream Performed By: #### A NA, C4, C3, CH50 #### [facility] , #### CRP, CREAT, ADDONUAPLUS, CUU, ESR, CBC #### [address] Leukocyte esterase Test strip Ql (U) 3+ High Negative [facility] Comment on above: Order Comment: Name Collection Type:: Clean-Voided Midstream Performed By: #### A NA, C4, C3, CH50 #### [facility] , #### CRP, CREAT, ADDONUAPLUS, CUU, ESR, CBC #### [address] Nitrite,Urine Negative Normal Negative [facility] Comment on above: Order Comment: Name Collection Type:: Clean-Voided Midstream Performed By: #### A NA, C4, C3, CH50 #### [facility] , #### CRP, CREAT, ADDONUAPLUS, CUU, ESR, CBC #### [place] [address] [place] Occult Blood,Urine Negative Normal Negative [facility] Comment on above: Order Comment: Name Collection Type:: Clean-Voided Midstream Performed By: #### A NA, C4, C3, CH50 #### [facility] , #### CRP, CREAT, ADDONUAPLUS, CUU, ESR, CBC #### [address] pH (U) 6.5 [pH] Normal 5.0-9.0 [facility] Comment on above: Order Comment: Name Collection Type:: Clean-Voided Midstream Performed By: #### A NA, C4, C3, CH50 #### [facility] , #### CRP, CREAT, ADDONUAPLUS, CUU, ESR, CBC #### [address] Protein,Urine Negative Normal Negative [facility] Comment on above: Order Comment: Name Collection Type:: Clean-Voided Midstream Performed By: #### A NA, C4, C3, CH50 #### [facility] , #### CRP, CREAT, ADDONUAPLUS, CUU, ESR, CBC #### [address] RBC,Urine 1-2 Normal 0-4 [facility] Comment on above: Order Comment: Name Collection Type:: Clean-Voided Midstream Performed By: #### A NA, C4, C3, CH50 #### [facility] , #### CRP, CREAT, ADDONUAPLUS, CUU, ESR, CBC #### [address] Specificy [place],Urine 1.018 Normal 1.00 1-1.03 0 [facility] Comment on above: Order Comment: Name Collection Type:: Clean-Voided Midstream Performed By: #### A NA, C4, C3, CH50 #### [facility] , #### CRP, CREAT, ADDONUAPLUS, CUU, ESR, CBC #### [address] Squamous Epithelial Cell,Urine 0-1 Normal 0-2 [facility] Comment on above: Order Comment: Name Collection Type:: Clean-Voided Midstream Performed By: #### A NA, C4, C3, CH50 #### [facility] , #### CRP, CREAT, ADDONUAPLUS, CUU, ESR, CBC #### [address] Urobilinogen,Urine Normal Normal Normal [facility] Comment on above: Order Comment: Name Collection Type:: Clean-Voided Midstream Performed By: #### A NA, C4, C3, CH50 #### [facility] , #### CRP, CREAT, ADDONUAPLUS, CUU, ESR, CBC #### [address] WBC,Urine 20-49 High 0-4 [facility] Comment on above: Order Comment: Name Collection Type:: Clean-Voided Midstream Performed By: #### A NA, C4, C3, CH50 #### [facility] , #### CRP, CREAT, ADDONUAPLUS, CUU, ESR, CBC #### [address] Eosinophils Auto (Bld) [#/Vo l]Ordered By: Paresh Tian on 07-16-2022 Eosinophils (Bld) [#/Vol] 0.1 10*3/uL 0.0-0.45 [facility] Eosinophils/100 WBC Auto (Bl d)Ordered By: Paresh Tian on 07-16-2022 Eosinophils/100 WBC (Bld) 1.1 % . [facility] Erythrocyte Sedimentation Ra declan 07-16-2022 ESR (Bld) [Velocity] 45 mm/h High 0-[address] [facility] Comment on above: Result Comment: PERF ORMED BY: [place] [address] PATHOLOGIST AFFILIATE MARKETING COORDINATOR PENG POLO M.D. Performed By: #### A NA, C4, C3, CH50 #### [facility] , #### CRP, CREAT, ADDONUAPLUS, CUU, ESR, CBC #### [facility] [address] [id number] [facility] Erythrocyte distribution wid th Auto (RBC) [Ratio]Ordered By: Paresh Tian on 07-16-2022 Erythrocyte distribution width (RBC) [Ratio] 13.0 % 11.9-15.3 [facility] Erythrocyte sedimentation ra te by Photometric methodOrdered By: Paresh Tian on 07-16-2022 ESR Photometric method (Bld) [Velocity] 45 mm/hr 0-29 [facility] Estimated glomerular filtrat ion rate (GFR) non- AmericanOrdered By: Paresh Tian on 07-16-2022 GFR/1.73 sq M.predicted among non-blacks MDRD (S/P/Bld) [Vol rate/Area] > 60 mL/Min [facility] Hematocrit Auto (Bld) [Volum e fraction]Ordered By: Paresh Tian on 07-16-2022 Hematocrit (Bld) [Volume fraction] 45.3 % 34.0-46.4 [facility] Hemoglobin [Mass/volume] in BloodOrdered By: Paresh Tian on 07-16-2022 Hemoglobin (Bld) [Mass/Vol] 15.2 g/dL 11.8-15.4 [facility] Ketones Auto test strip (U) [Mass/Vol]Ordered By: Paresh Tian on 07-16-2022 Ketones (U) [Mass/Vol] Negative Negative [facility] - UrinalysisOrder ed By: Paresh Tian on 07-16-2022 Hyaline casts LM Ql (Urine sed) 0-8 [LPF] 0-8 [facility] Leukocytes [#/volume] correc scot for nucleated erythrocytes in Blood by Automated counOrdered By: Paresh Tian on 07-16-2022 WBC corrected for nucl RBC Auto (Bld) [#/Vol] 10.4 10*3/uL 3.8-11.6 [facility] Lymphocytes Auto (Bld) [#/Vo l]Ordered By: Paresh Tian on 07-16-2022 Lymphocytes (Bld) [#/Vol] 3.7 10*3/uL 1.00-4.8 [facility] Lymphocytes/100 WBC Auto (Bl d)Ordered By: Paresh Tian on 07-16-2022 Lymphocytes/100 WBC (Bld) 35.0 % . [facility] MCH Auto (RBC) [Entitic mass ]Ordered By: Paresh Tian on 07-16-2022 MCH (RBC) [Entitic mass] 33.8 pg 24.7-34.3 [facility] MCHC Auto (RBC) [Mass/Vol]Or dered By: Paresh Tian on 07-16-2022 MCHC (RBC) [Mass/Vol] 33.6 g/dL 32.0-35.0 [facility] MCV Auto (RBC) [Entitic vol] Ordered By: Paresh Tian on 07-16-2022 MCV (RBC) [Entitic vol] 100.6 fL 80-100 [facility] Mitotic spindle apparatus Ab [Titer] in Serum or Plasma by ImmunofluorescenceOrdered By: Paresh Tian on 07-16-2022 Mitotic spindle apparatus Ab IF [Titer] 1:160 . [facility] Comment on above: ICAP nomenclature: A C-25,26 Monocytes Auto (Bld) [#/Vol] Ordered By: Paresh Tian on 07-16-2022 Monocytes (Bld) [#/Vol] 0.7 10*3/uL 0.0-0.8 [facility] Monocytes/100 WBC Auto (Bld) Ordered By: Paresh Tian on 07-16-2022 Monocytes/100 WBC (Bld) 6.8 % . [facility] Neutrophils Auto (Bld) [#/Vo l]Ordered By: Paresh Tian on 07-16-2022 Neutrophils (Bld) [#/Vol] 5.9 10*3/uL 1.8-7.7 [facility] Neutrophils/100 WBC Auto (Bl d)Ordered By: Paresh Tian on 07-16-2022 Neutrophils/100 WBC (Bld) 56.7 % . [facility] Nitrite Test strip Ql (U)Ord ered By: Paresh Tian on 07-16-2022 Nitrite Ql (U) Negative Negative [facility] No Panel InformationOrdered By: Paresh Tian on 07-16-2022 Anti-Nuclear Antibody Comment 2 See comment . [facility] Comment on above: For more information about Hep-2 cell patterns useANApatterns.org, the official website for the InternationalConSignNowsus on Antinuclear Antibody (ASTER) Patterns (ICAP). --------A positive ASTER result may occur in healthy individuals (lowtiter) or be associated with a variety of diseases. Seeinterpretation chart which is not all inclusive:Pattern Antigen Detected Suggested Disease Association Homogeneous DNA(ds,ss), SLE - High titers Nucleosomes, Histones Drug-induced SLE Speckled Sm, FAST FOOD SHIFT LEAD, SCL-70, SLE,MCTD,PSS (diffuse form), SS-A/SS-B Sjogrens Nucleolar SCL-70, PM-1/SCL High titers Scleroderma, PM/DM Centromere Centromere PSS (limited form) w/Crest syndrome variable Nuclear Dot Sp100,[id number] Primary Biliary Cirrhosis Nuclear GP210, Primary Biliary CirrhosisMembrane kailyn A,B,C Performed at: [facility] [address] [place] [id number] Director: Collin Rodriguez PhD, Phone: [phone] Estimated GFR () > 60 mL/Min [facility] Comment on above: GFR estimated refere nce range: According to KDOQI guidelines, <60 ml/min/1.73m2 is sufficient to diagnose a patient with chronic kidney disease. Pharmacy Creatinine Clearance (Chem N/A [facility] Total Complement (CH50) >60 U/mL >41 [facility] Comment on above: Age Male Female [...] to determine out of range values.Performed at: [facility] [address] [id number] Director: Collin Rodriguez PhD, Phone: [phone] Nucleated erythrocytes [Pres ence] in Blood by Automated countOrdered By: Paresh Tian on 07-16-2022 Nucleated RBC Auto Ql (Bld) 0.1 /100{WBC} 0-0.5 [facility] Platelet mean volume Auto (B ld) [Entitic vol]Ordered By: Paresh Tian on 07-16-2022 Platelet mean volume (Bld) [Entitic vol] 8.4 fL 6.3-10.7 [facility] Platelets Auto (Bld) [#/Vol] Ordered By: Paresh Tian on 07-16-2022 Platelets (Bld) [#/Vol] 242 10*3/uL 150-450 [facility] Protein Auto test strip (U) [Mass/Vol]Ordered By: Paresh Tian on 07-16-2022 Protein (U) [Mass/Vol] Negative Negative [facility] RBC Auto (Bld) [#/Vol]Ordere d By: Paresh Tian on 07-16-2022 RBC (Bld) [#/Vol] 4.50 10*6/uL 3.60-5.00 [facility] Serum homogeneous pattern an tinuclear antibody (ASTER) titerOrdered By: Paresh Tian on 07-16-2022 Homogenous nuclear Ab pattern (S) [Titer] N/A [facility] Serum nuclear antibody titer Ordered By: Paresh Tian on 07-16-2022 Nuclear Ab (S) [Titer] Positive . [facility] Comment on above: Negative <1:80 Borde rline 1:80 Positive >1:80 Serum or plasma complement C 3 measurement (mass/volume)Ordered By: Paresh Tian on 07-16-2022 Complement C3 [Mass/Vol] 197 mg/dL 82-167 [facility] Comment on above: Performed at: [place] [id number] Director: Collin Rodriguez PhD, Phone: [phone] Serum or plasma complement C 4 measurement (mass/volume)Ordered By: Paresh Tian on 07-16-2022 Complement C4 [Mass/Vol] 42 mg/dL 12-38 [facility] Specific gravity Auto test s trip (U) [Rel density]Ordered By: Paresh Tian on 07-16-2022 Specific gravity (U) [Rel density] 1.018 1.001-1.03 0 [facility] Squamous epithelial cells de tection in urine sediment by light microscopyOrdered By: Paresh Tian on 07-16-2022 Epithelial cells.squamous LM Ql (Urine sed) 0-1 [HPF] 0-2 [facility] Urine Cultureon 07-16-2022 Bacteria identified Cx Nom (U) ORGANISM: Escherichia coli (O:ESCCOL) [place] Count >100,000 Aerobic TARA Charge ([id number]) -- [...] RESISTANT TO ALL B-LACTAM DRUGS. PERFORMED BY: [place] [address] PATHOLOGIST AFFILIATE MARKETING COORDINATOR PENG POLO M.D. Normal [facility] Comment on above: Performed By: #### A NA, C4, C3, CH50 #### [facility] , #### CRP, CREAT, ADDONUAPLUS, CUU, ESR, CBC #### [facility] [address] [place] [address] [place] Urine bacteria detection by automated methodOrdered By: Paresh Tian on 07-16-2022 Bacteria Auto Ql (U) 4+ None Seen [facility] Urine clarity by refractomet ry automatedOrdered By: Paresh Tian on 07-16-2022 Clarity Refractometry automated (U) Clear Clear [facility] Urine culture routineOrdered By: Paresh Tian on 07-16-2022 Bacteria identified Cx Nom (U) Escherichia coli [facility] Urine glucose measurement by automated test strip (mass/volume)Ordered By: Paresh Tian on 07-16-2022 Glucose Auto test strip (U) [Mass/Vol] Normal mg/dL Normal [facility] Urine hemoglobin detection b y automated test stripOrdered By: Paresh Tian on 07-16-2022 Hemoglobin Auto test strip Ql (U) Negative Negative [facility] Urine leukocyte esterase det ection by automated test stripOrdered By: Paresh Tian on 07-16-2022 Leukocyte esterase Auto test strip Ql (U) 3+ Negative [facility] Urobilinogen Auto test strip (U) [Mass/Vol]Ordered By: Paresh Tian on 07-16-2022 Urobilinogen (U) [Mass/Vol] Normal mg/dL Normal [facility] WBC Auto (Bld) [#/Vol]Ordere d By: Paresh Tian on 07-16-2022 WBC (Bld) [#/Vol] 10.4 10*3/uL 3.8-11.6 [facility] pH Auto test strip (U)Ordere d By: Paresh Tian on 07-16-2022 pH (U) 6.5 [pH] 5.0-9.0 [facility] XR lumbar spine 6V w bending on 07-03-2022 XR lumbar spine 6V w bending [facility] [place] [address] [id number] XRay Report Signed Patient: Kim Hill MR#: [id number] : 1970 Acct:[id number] Age/Sex: 51 / F ADM Date: 07/03/22 Loc: XD Room: [facility] Attending Dr: Aby SIMPSON Copies to: CALVIN [...] EVIDENCE OF HARDWARE COMPLICATION. Impression dictated by: Gayr Gifford Jr., D.OPancho07/03/2022 3:59 PM Dictation Location: [place] [address] Transcribed By: [facility] 07/03/22 1559 Dictated By: Gary Gifford Jr, DO 07/03/22 1557 Signed By: 07/03/22 1559 [facility] XR HIPS ZEINA 3_4V WO PELVISon [...] DASHA KHAN Date: 2022-05-15 07:49 Normal [facility] Covid-19 PCR (CVDTB)on SARS-CoV-2 (COVID-19) RNA AMBERLY+probe Ql (Unsp spec) Not detected Normal NOT DETECTED [facility] Comment on above: Result Comment: This test is not yet approved or cleared by the [place] FDA. When there are no FDA-approved or cleared tests available, and other criteria are met, FDA can make tests available under an emergency access mechanism called an Emergency Use Authorization (EUA). The EUA for this test is supported by the [place] of Health and Human Service's (HHS's) declaration [...] consistent with SARS-CoV-2. Performed By: #### C [facility] #### [facility] [address] [place] [address] Dr. Narendra Jacobsen COVID-19 Positive/NegativeOr dered By: Baljinder Rausch on 01-31-2022 SARS-CoV-2 (COVID-19) N gene AMBERLY+probe Ql (Resp) Negative Negative [facility] Comment on above: Testing for SARS-CoV -2 by RT-PCR This test was developed and its performance characteristics determined by [employer] ([employer]) and validated at the [facility]. This test has not been [...] COVID-19 Positive/Negativeon 05-20-2020 COVID-19 Positive/Negative Negative Negative [facility] Comment on above: Testing for SARS-CoV -2 by RT-PCRThis test was developed and its performance characteristics determined by [employer] ([employer]) and validated at the [facility]. This test has not been [...] Otheron 05-20-2020 Coronavirus 2019 PCR Interp N/A [facility] Automated basophil %on 05-14 Basophils/100 WBC (Bld) 0.5 % F [facility] Automated basophil counton 1 07-15-2019 Basophils (Bld) [#/Vol] 0.0 10*3/uL 0.0-0.2 [facility] Automated blood lymphocyte c ount (number/volume)on 05-14-2020 Lymphocytes (Bld) [#/Vol] 2.8 10*3/uL 1.00-4.8 [facility] Automated blood lymphocyte c ount as percentage of total leukocyteson 05-14-2020 Lymphocytes/100 WBC (Bld) 35.0 % [facility] Automated blood monocyte cou nton 05-14-2020 Monocytes (Bld) [#/Vol] 0.6 10*3/uL 0.0-0.8 [facility] Automated blood platelet cou nt (count/volume)on 05-14-2020 Platelets (Bld) [#/Vol] 225 10*3/uL 150-450 [facility] Automated blood platelet jose n volume measurementon 05-14-2020 Platelet mean volume (Bld) [Entitic vol] 8.2 fL 6.3-10.7 [facility] Automated eosinophil %on Eosinophils/100 WBC (Bld) 1.5 % [facility] Automated eosinophil counton 05-14-2020 Eosinophils (Bld) [#/Vol] 0.1 10*3/uL 0.0-0.45 [facility] Automated erythrocyte distri bution width ratioon 05-14-2020 Erythrocyte distribution width (RBC) [Ratio] 12.3 % 11.9-15.3 [facility] Automated erythrocyte mean c orpuscular hemoglobin (mass per erythrocyte)on 05-14-2020 MCH (RBC) [Entitic mass] 35.2 pg 24.7-34.3 [facility] Automated erythrocyte mean c orpuscular hemoglobin concentration measurement (mass/volon 05-14-2020 MCHC (RBC) [Mass/Vol] 34.2 g/dL 32.0-35.0 [facility] Automated erythrocyte mean c orpuscular volumeon 05-14-2020 MCV (RBC) [Entitic vol] 102.9 fL 80-[address] [facility] Automated monocyte %on 05-14 Monocytes/100 WBC (Bld) 7.0 % [facility] Automated neutrophil %on Neutrophils/100 WBC (Bld) 56.0 % [facility] Blood erythrocytes automated count (number/volume)on 05-14-2020 RBC (Bld) [#/Vol] 4.08 10*6/uL 3.60-5.00 [facility] Blood hemoglobin measurement (mass/volume)on 05-14-2020 Hemoglobin (Bld) [Mass/Vol] 14.3 g/dL 11.8-15.4 [facility] Blood leukocytes automated c ount (number/volume)on 05-14-2020 WBC (Bld) [#/Vol] 7.9 10*3/uL 4.5-11.0 [place] Blood neutrophil count by au tomated method (number/volume)on 05-14-2020 Neutrophils (Bld) [#/Vol] 4.4 10*3/uL 1.8-7.7 [facility] Estimated glomerular filtrat ion rate (GFR) non- Americanon 05-14-2020 GFR/1.73 sq M predicted among non-blacks MDRD (S/P/Bld) [Vol rate/Area] mL/min/{1.73_m2} [facility] Hematocrit [Volume Fraction] of Blood by Automated counton 05-14-2020 Hematocrit (Bld) [Volume fraction] 41.9 % 34.0-46.4 [facility] Otheron 05-14-2020 GFR/1.73 sq M.predicted MDRD (S/P/Bld) [Vol rate/Area] mL/min/{1.73_m2} [facility] Comment on above: GFR estimated refere nce range: According to KDOQI guidelines, <60 ml/min/1.73m2 is sufficient to diagnose a patient with chronic kidney disease. Nucleated RBC/100 WBC (Bld) [Ratio] 0.1 % 0-0.5 [facility] Pharmacy Creatinine Clearance (Chem N/A [facility] Serum or plasma calcium octavio urement (mass/volume)on 05-14-2020 Calcium [Mass/Vol] 10.1 mg/dL 8.2-10.2 [place] Serum or plasma chloride jose surement (moles/volume)on 05-14-2020 Chloride [Moles/Vol] 101 mmol/L 95-114 [facility] Serum or plasma creatinine m easurement with calculation of estimated glomerular filtron 05-14-2020 Creatinine [Mass/Vol] 0.60 mg/dL 0.44-1.03 [facility] Serum or plasma glucose octavio urement (mass/volume)on 05-14-2020 Glucose [Mass/Vol] 94 mg/dL 70-100 [place] Comment on above: ADA recommended refe rence rangeRandom Glucose Reference Range is dependent on time and content of last meal. Glucose of more than 200 mg/dL in a nonstressed, ambulatory subject supports the diagnosis of Diabetes Mellitus. Serum or plasma potassium me asurement (moles/volume)on 05-14-2020 Potassium [Moles/Vol] 4.3 mmol/L 3.5-5.1 [facility] Serum or plasma sodium measu rement (moles/volume)on 05-14-2020 Sodium [Moles/Vol] 140 mmol/L 136-146 [place] Serum or plasma total carbon dioxide measurement (moles/volume)on 05-14-2020 CO2 [Moles/Vol] 27.2 mmol/L 22.0-30.0 [facility] Serum or plasma urea nitroge n measurement (mass/volume)on 05-14-2020 Urea nitrogen [Mass/Vol] 7 mg/dL 9-23 [facility] Social History Date Type Detail Facility Start: 05-14-2020 End: 06-23-2021 Tobacco smoking status NHIS Smoker (finding) [facility] Start: 06-23-1987 History of tobacco use [facility] Work Phone: Start: 1970 Sex Assigned At Female F [facility] Vital Signs Date Time Vital Sign Value Performing Clinician Facility 08-17-2022 16:00-0400 Body height 160.02 cm Gina Blades Other [facility] Other 08-17-2022 16:00-0400 Body mass index (BMI) [Ratio] 40.56 kg/m2 Gina Blades Other [facility] Other 08-17-2022 16:00-0400 Body weight 103.87 kg Gina Blades Other [facility] Other 08-17-2022 16:00-0400 Diastolic blood pressure 82 mm[Hg] Gnia Blades Other [facility] Other 08-17-2022 16:00-0400 Systolic blood pressure 126 mm[Hg] Gina Blades Other [facility] Other Clinical Notes 01-07-2022 to 10-06-2022 Note Date [...] pill b.i.d. and to continue to use Penrose 7.5 mg t.i.d. We did reduce the use at her last visit from 90 pills a month to 80 pills to last one month's time. She appears to be tolerating this transition quite well. I have asked her to continue with gabapentin 600 mg t.i.d. Her JOYCE on today's visit is 28. She reports the Penrose does improve her quality of life, level of functioning and sleep pattern, and she denies any side effects. As part of providing excellent, safe, comprehensive care, the following was completed at our patient's visit: 1. A medication reconciliation and review to ensure accurate knowledge of current/active medications, including asking our patients to inform us about any gxli-ecr-xlrnkmp medications or herbal remedies/nutritional supplements/alternative remedies. 2. [...] options with their primary care provider. [facility] 09-01-2022 Note CONSULTATION CONSULTATION DATE: 09/01/2022 [...] our patients to inform us about any ctvt-bxl-ghkuali medications or herbal remedies/nutritional supplements/alternative remedies. 2. [...] options with their primary care provider. [facility] 08-17-2022 Evaluation note Encounter Date Diagnosis Assessment Notes Jul, Other chronic pain (ICD-10 - G89.29) Jul, Low back pain, unspecified (ICD-10 - M54.50) [facility] Other 02-16-2023 NoteCONSULTATION CONSULTATION DATE: 07/16/2022 HISTORY OF PRESENT ILLNESS: This is a 51-year-old female who returns to the clinic status post bilateral SI joint injection completed on 06/23/2022. The patient received 80% relief for one day and on day two felt worse than her normal baseline pain. Today, she rates her pain 8/10. Medications include gabapentin 600 mg t.i.d., Penrose 7.5/325 b.i.d. and Mobic 15 mg daily. [...] her medications; Mobic 15 mg daily and Penrose 7.5/325 b.i.d. She will return to the clinic in six weeks' time, in which we will, in addition to her PCPs office, review the MRI and form a plan of care at that time. Patient is in agreement to this plan.The [place] [id number] Note CONSULTATION CONSULTATION DATE: 05/29/2022 HISTORY OF [...] down. Medications include gabapentin 600 mg t.i.d., Penrose 7.5/325 b.i.d. and diclofenac 50 mg daily. [...] care and will be followed up thereafter.[id number] NoteCONSULTATION CONSULTATION DATE: 05/14/2022 HISTORY OF PRESENT [...] as well as gabapentin 600 mg t.i.d., Penrose 7.5/325 t.i.d. At her last appointment, she [...] Refills for gabapentin 600 mg t.i.d. and Penrose 7.5/325 b.i.d. will be sent to her pharmacy. Patient agrees to move forward with the procedure. She will followed up in the clinic thereafter.[facility] [id number] NotePAIN MANAGEMENT CONSULTATION CONSULTATION DATE: 05/14/2022 CHIEF [...] with a sacroiliac joint injection under fluoroscopy.[facility] [id number] NoteCONSULTATION CONSULTATION DATE: 03/12/2022 ADDENDUM DIAGNOSIS: Lumbar spondylosis, lumbar degenerative disc disease, chronic lower back pain and a history of a lumbar fusion.[facility] [id number] Note CONSULTATION CONSULTATION DATE: 03/12/2022 This is [...] Current medications include gabapentin 600 mg t.i.d., Penrose 7.5/325 b.i.d., diclofenac cream and ibuprofen. She [...] with her vitamins as well as her Penrose. The dose of frequency will not be changed. We will have the patient return to the clinic in two months' time for re-evaluation. The patient is inquiring about an increase of her Penrose, possibly during the winter months. There will be no changes today.[facility] [id number] NoteCONSULTATION CONSULTATION DATE: 01/07/2022 This is a [...] Current medications include gabapentin 600 mg b.i.d., Penrose 7.5/325 b.i.d., diclofenac topical, multivitamin regimen and ibuprofen p.r.n. She has tried diclofenac in the past but was unable to tolerate it due to stomach issues but low-dose ibuprofen she can tolerate. She is needing Penrose and gabapentin refill today. REVIEW OF SYSTEMS, [...] subsequently move to the left. Refill for Penrose 7.5/325 b.i.d. and gabapentin 600 mg b.i.d. will be sent to the pharmacy. The patient is encouraged to increase magnesium in her vitamin regimen as well as menthol heat rub, seated stretches that were demonstrated and heat application. The patient agrees with the plan of care and would like to move forward and she will follow-up in the clinic post procedure.[facility]Evaluation noteNo assessment information availablePremier [facility] Work Phone: Evaluation noteNo InformationNortAllegheny Valley Hospital [facility] Other History general Narrative - Reported* Type [...] see above Hospitalization History 4 child births [facility] [employer] Other Advance Directives No Advanced Directives Records [...] Inactive Member Role Status Dates Roberto Roth , DO Primary Care Provider Active Hood Rausch MD Attending Provider Active Team Status: Active Member Role Status Dates Roberto Roth , Primary Care Provider Active Team Status: Inactive Member Role Status Dates Roberto Roth , Primary Care Provider Active CALVIN Wiley Attending Provider Active Team Status: Inactive Member Role Status Dates Roberto Roth , DO Primary Care Provider Active Paresh Tian MD Attending Provider Active Team Status: Inactive Member Role Status Dates Roberto Roht , DO Primary Care Provider Active Gina Guerrero MD Attending Provider Active Goals (unrecognized section and content) Goals may be documented in a n alternate sectionGoals may be documented in an alternate sectionGoals may be documented in an alternate sectionGoals may be documented in an alternate sectionNo InformationNo Information INFORMATION SOURCE (unrecogn ized section and content) DATE CREATED AUTHOR 08/01/2022 [facility] dical Specialist DATE CREATED AUTHOR AUTHOR'S ORGANIZ ATION 11/06/[address] [facility] p[facility] DATE CREATED AUTHOR AUTHOR'S ORGANIZ ATION 02/04/2023 [facility] DATE CREATED AUTHOR AUTHOR'S ORGANIZ ATION 10/24/2023 [facility] REASON FOR VISIT (unrecogniz ed section and content) referred by Dr Roth, Lorne b ack and right hip painmri location [...] BE BASED ON THE PRIMARY CLINICAL RECORDS. [facility] provides no warranty or guarantee of the accuracy or completeness of information in this document.
== END 2023-11-02 15:53 | disposition home or self-care (01) ==
PROVIDERS: Visit Provider Anesthesiology Pain Medicine
DX: M25.551 Pain in right hip (principal)
CPT/HCPCS: 73502

== ENCOUNTER 2024-01-26 15:08 | Outpatient (OUT) | payer BC, SELFPAY ==
--- OUTSIDE RECORDS SUMMARY | 2024-01-26 15:27 | XMS_ITS | CCD ---
Author Organization [facility] Care Team Providers Care Cylinder Valve Repairer Name Role Phone Roberto Roth Primary Care Provider Justice Cruz Attending Provider DO Roberto Roth Primary Care Provider MD Hood Rausch Attending Provider [phone] DO Roberto Roth Primary Care Provider [phone] CALVIN Yu Attending Provider MD Paresh Tian Attending Provider [phone] DO Roberto Roth Primary Care Provider [phone] CALVIN Yu Attending Provider [phone] MD Paresh Tian Attending Provider [phone] MD Gina Guerrero Attending Provider [phone] Gina Guerrero Unavailable SHE ., DR HOOD [...] Bhakta Primary Care Unavailable LAKSHMIPATHY ., NARENDRANATH Attending Manjula vailable DR [...] ROTH, DR ROBERTO Bhakta Primary Care Unavailable FOX, JOELLE ULLOA Consulting Unava ilable SINGH ., ADA Attending Unavailable SINGH ., ADA Admitting Unavailable IRA, DR ROBERTO Bhakta Primary Care Unavailable VALHALLA, DR DASHA Gomez Consulting Unavailable SINGH ., [...] IRA, DR ROBERTO Bhakta Primary Care Unavailable Panda BUSTILLO, Aaron Musa Attending Unavailable Roberto Roth Primary Care Unavailable Gina Guerrero Attending Unavailable BladesGina Admitting Unavailable Unavailable Unavailable Unavailable Allergies Allergy Classification Reported Allergen(s) Allergy Type Date of Onset Reaction(s) Facility (6 sources) Amoxicillin; Translations: [amoxicillin] Drug Allergy 0 [facility] (7 sources) Penicillins; Translations: [Penicillins] Propensity to adverse reactions 4 Nausea [facility] (6 sources) clavulanic acid; Translations: [clavulanic acid] Propensity to adverse reactions 0 [facility] (3 sources) Amoxicillin / Clavulanate; Translations: [Augmentin] Drug Allergy 4 Unknown [facility] Repository (2 sources) Azithromycin Drug Allergy diarrhea [facility] Other (2 sources) Penicillin G Drug Allergy Unknown [facility] Other Medications Current Medications Medication Drug Class(es) Dates Sig (Normalized) Sig (Original) acetaminophen 500 mg oral tablet (4 sources) Start: 05-31-2020 take 500 mg by mouth every four hours Acetaminophen Active 500 MG PO Q4H 100 May 31, 2020 1:00am [id number] 200 actuat albuterol 0.09 mg/actuat metered dose [...] Discontinued 10 MG PO Every 4 hours May 31, 2020 June 23, 2021 5:32pm [...] by mouth three times daily Hydrocodone-Acetami nophen (Donahue) 5-325 mg Tablet Discontinued 1 TAB PO Three times daily March 18, 2019 12:00am May 23, 2020 4:59pm [place]ue Active azithromycin 250 mg oral tablet (4 [...] Discontinued 10 MG PO Every 8 hours May 31, 2020 1:00am June 23, 2021 [...] sources) High risk drug monitoring status; Translations: [care home (current) use of opiate analgesic] Episodic Other [...] [Meralgia paresthetica, right lower limb] Onset: 08-17-2022 Viral infection (8 sources) COVID-19; Translations: [Pneumonia [...] Test Name Value Interpretation Reference Range Facility MRI Lumbar Spine w/o + w/on 07-30-2022 [...] by Justice Lucas on 07/31/2022 0915 Normal [facility] [employer] Automated erythrocytes count in urine sediment (number/area)Ordered By: Paresh Tian on 07-16-2022 RBC Auto (Urine sed) [#/Area] 1-2 [HPF] 0-4 [facility] Automated leukocytes count i n urine sediment (number/area)Ordered By: Paresh Tian on 07-16-2022 WBC Auto (Urine sed) [#/Area] 20-49 [HPF] 0-4 [facility] Basophils Auto (Bld) [#/Vol] Ordered By: Paresh Tian on 07-16-2022 Basophils (Bld) [#/Vol] 0.0 10*3/uL 0.0-0.2 [facility] Basophils/100 WBC Auto (Bld) Ordered By: Paresh Tian on 07-16-2022 Basophils/100 WBC (Bld) 0.4 % . [facility] Bilirubin Test strip Ql (U)O rdered By: Paresh Tian on 07-16-2022 Bilirubin Ql (U) Negative Negative [facility] C reactive protein [Mass/vol ume] in Serum or PlasmaOrdered By: Paresh Tian on 07-16-2022 CRP [Mass/Vol] 0.8 mg/dL 0.0-1.0 [facility] Color Auto (U)Ordered By: Afia Tian on 07-16-2022 Color (U) Yellow Yellow [facility] Creatinine and Glomerular fi ltration rate.predicted panel (S/P/Bld)Ordered By: Paresh Tian on 07-16-2022 Creatinine [Mass/Vol] 0.74 mg/dL 0.44-1.03 [facility] Eosinophils Auto (Bld) [#/Vo l]Ordered By: Paresh Tian on 07-16-2022 Eosinophils (Bld) [#/Vol] 0.1 10*3/uL 0.0-0.45 [facility] Eosinophils/100 WBC Auto (Bl d)Ordered By: Paresh Tian on 07-16-2022 Eosinophils/100 WBC (Bld) 1.1 % . [facility] Erythrocyte distribution wid th Auto (RBC) [Ratio]Ordered By: Paresh Tian on 07-16-2022 Erythrocyte distribution width (RBC) [Ratio] 13.0 % 11.9-15.3 [facility] Erythrocyte sedimentation ra te by Photometric methodOrdered By: Paresh Tian on 07-16-2022 ESR Photometric method (Bld) [Velocity] 45 mm/hr 0-29 [facility] Estimated glomerular filtrat ion rate (GFR) non- AmericanOrdered By: Paresh Tian on 07-16-2022 GFR/1.73 sq M.predicted among non-blacks MDRD (S/P/Bld) [Vol rate/Area] > 60 mL/Min [facility] Hematocrit Auto (Bld) [Volum e fraction]Ordered By: Paresh Tian on 07-16-2022 Hematocrit (Bld) [Volume fraction] 45.3 % 34.0-46.4 [facility] Hemoglobin [Mass/volume] in BloodOrdered By: Paresh Tian on 07-16-2022 Hemoglobin (Bld) [Mass/Vol] 15.2 g/dL 11.8-15.4 [facility] Ketones Auto test strip (U) [Mass/Vol]Ordered By: Paresh Tian on 07-16-2022 Ketones (U) [Mass/Vol] Negative Negative [facility] - UrinalysisOrder ed By: Paresh Tian on 07-16-2022 Hyaline casts LM Ql (Urine sed) 0-8 [LPF] 0-8 [facility] Leukocytes [#/volume] correc scot for nucleated erythrocytes in Blood by Automated counOrdered By: Paresh Tian on 07-16-2022 WBC corrected for nucl RBC Auto (Bld) [#/Vol] 10.4 10*3/uL 3.8-11.6 [facility] Lymphocytes Auto (Bld) [#/Vo l]Ordered By: Paresh Tian on 07-16-2022 Lymphocytes (Bld) [#/Vol] 3.7 10*3/uL 1.00-4.8 [facility] Lymphocytes/100 WBC Auto (Bl d)Ordered By: Paresh Tian on 07-16-2022 Lymphocytes/100 WBC (Bld) 35.0 % . [facility] MCH Auto (RBC) [Entitic mass ]Ordered By: Paresh Tian on 07-16-2022 MCH (RBC) [Entitic mass] 33.8 pg 24.7-34.3 [facility] MCHC Auto (RBC) [Mass/Vol]Or dered By: Paresh Tian on 07-16-2022 MCHC (RBC) [Mass/Vol] 33.6 g/dL 32.0-35.0 [facility] MCV Auto (RBC) [Entitic vol] Ordered By: Paresh Tian on 07-16-2022 MCV (RBC) [Entitic vol] 100.6 fL 80-100 [facility] Mitotic spindle apparatus Ab [Titer] in Serum or Plasma by ImmunofluorescenceOrdered By: Paresh Tian on 07-16-2022 Mitotic spindle apparatus Ab IF [Titer] 1:160 . [facility] Comment on above: ICAP nomenclature: A C-25,26 Monocytes Auto (Bld) [#/Vol] Ordered By: Paresh Tian on 07-16-2022 Monocytes (Bld) [#/Vol] 0.7 10*3/uL 0.0-0.8 [facility] Monocytes/100 WBC Auto (Bld) Ordered By: Paresh Tian on 07-16-2022 Monocytes/100 WBC (Bld) 6.8 % . [facility] Neutrophils Auto (Bld) [#/Vo l]Ordered By: Paresh Tian on 07-16-2022 Neutrophils (Bld) [#/Vol] 5.9 10*3/uL 1.8-7.7 [facility] Neutrophils/100 WBC Auto (Bl d)Ordered By: Paresh Tian on 07-16-2022 Neutrophils/100 WBC (Bld) 56.7 % . [facility] Nitrite Test strip Ql (U)Ord ered By: Paresh Tian on 07-16-2022 Nitrite Ql (U) Negative Negative [facility] No Panel InformationOrdered By: Paresh Tian on 07-16-2022 Anti-Nuclear Antibody Comment 2 See comment . [facility] Comment on above: For more information about Hep-2 cell patterns useANApatterns.org, the official website for the InternationalConsensus on Antinuclear Antibody (ASTER) Patterns (ICAP). --------A positive ASTER result may occur in healthy individuals (lowtiter) or be associated with a variety of diseases. Seeinterpretation chart which is not all inclusive:Pattern Antigen Detected Suggested Disease Association Homogeneous DNA(ds,ss), SLE - High titers Nucleosomes, Histones Drug-induced SLE Speckled Sm, PLUSH CUTTER, SCL-70, SLE,MCTD,PSS (diffuse form), SS-A/SS-B Sjogrens Nucleolar SCL-70, PM-1/SCL High titers Scleroderma, PM/DM Centromere Centromere PSS (limited form) w/Crest syndrome variable Nuclear Dot Sp100,a21-mznqlq Primary Biliary Cirrhosis Nuclear GP210, Primary Biliary CirrhosisMembrane kailyn A,B,C Performed at: [facility] [id number] Director: oCllin Rodriguez PhD, Phone: [phone] Estimated GFR () > 60 mL/Min [facility] Comment on above: GFR estimated refere nce range: According to KDOQI guidelines, <60 ml/min/1.73m2 is sufficient to diagnose a patient with chronic kidney disease. Pharmacy Creatinine Clearance (Chem N/A [facility] Total Complement (CH50) >60 U/mL >41 [...] to determine out of range values.Performed at: [facility] [address] [id number] Director: Collin Rodriguez PhD, Phone: [phone] Nucleated erythrocytes [Pres ence] in Blood by Automated countOrdered By: Paresh Tian on 07-16-2022 Nucleated RBC Auto Ql (Bld) 0.1 /100{WBC} 0-0.5 [facility] Platelet mean volume Auto (B ld) [Entitic vol]Ordered By: Paresh Tian on 07-16-2022 Platelet mean volume (Bld) [Entitic vol] 8.4 fL 6.3-10.7 [facility] Platelets Auto (Bld) [#/Vol] Ordered By: Paresh Tian on 07-16-2022 Platelets (Bld) [#/Vol] 242 10*3/uL 150-450 [facility] Protein Auto test strip (U) [Mass/Vol]Ordered By: Paresh Tian on 07-16-2022 Protein (U) [Mass/Vol] Negative Negative [facility] RBC Auto (Bld) [#/Vol]Ordere d By: Paresh Tian on 07-16-2022 RBC (Bld) [#/Vol] 4.50 10*6/uL 3.60-5.00 [facility] Serum homogeneous pattern an tinuclear antibody (ASTER) titerOrdered By: Paresh Tian on 07-16-2022 Homogenous nuclear Ab pattern (S) [Titer] N/A [facility] Serum nuclear antibody titer Ordered By: Paresh Tian on 07-16-2022 Nuclear Ab (S) [Titer] Positive . [facility] Comment on above: Negative <1:80 Borde rline 1:80 Positive >1:80 Serum or plasma complement C 3 measurement (mass/volume)Ordered By: Paresh Tian on 07-16-2022 Complement C3 [Mass/Vol] 197 mg/dL 82-167 [facility] Comment on above: Performed at: [address] Director: Collin Rodriguez PhD, Phone: [phone] Serum or plasma complement C 4 measurement (mass/volume)Ordered By: Paresh Tian on 07-16-2022 Complement C4 [Mass/Vol] 42 mg/dL 12-38 [facility] Specific gravity Auto test s trip (U) [Rel density]Ordered By: Paresh Tian on 07-16-2022 Specific gravity (U) [Rel density] 1.018 1.001-1.03 0 [facility] Squamous epithelial cells de tection in urine sediment by light microscopyOrdered By: Paresh Tian on 07-16-2022 Epithelial cells.squamous LM Ql (Urine sed) 0-1 [HPF] 0-2 [facility] Urine bacteria detection by automated methodOrdered By: Paresh Tian on 07-16-2022 Bacteria Auto Ql (U) 4+ None Seen [facility] Urine clarity by refractomet ry automatedOrdered By: Paresh Tian on 07-16-2022 Clarity Refractometry automated (U) Clear Clear [facility] Urine culture routineOrdered By: Paresh Tian on 07-16-2022 Bacteria identified Cx Nom (U) Escherichia coli [facility] Urine glucose measurement by automated test strip (mass/volume)Ordered By: Paresh Tian on 07-16-2022 Glucose Auto test strip (U) [Mass/Vol] Normal mg/dL Normal [facility] Urine hemoglobin detection b y automated test stripOrdered By: Paresh Tian on 07-16-2022 Hemoglobin Auto test strip Ql (U) Negative Negative [facility] Urine leukocyte esterase det ection by automated test stripOrdered By: Paresh Tian on 07-16-2022 Leukocyte esterase Auto test strip Ql (U) 3+ Negative [facility] Urobilinogen Auto test strip (U) [Mass/Vol]Ordered By: Paresh Tian on 07-16-2022 Urobilinogen (U) [Mass/Vol] Normal mg/dL Normal [facility] WBC Auto (Bld) [#/Vol]Ordere d By: Paresh Tian on 07-16-2022 WBC (Bld) [#/Vol] 10.4 10*3/uL 3.8-11.6 [facility] pH Auto test strip (U)Ordere d By: Paresh Tian on 07-16-2022 pH (U) 6.5 [pH] 5.0-9.0 [facility] XR HIPS ZEINA 3_4V WO PELVISon [...] DASHA KHAN Date: 2022-05-15 07:49 Normal [facility] Covid-19 PCR (CVDTB)on SARS-CoV-2 (COVID-19) RNA AMBERLY+probe Ql (Unsp spec) Not detected Normal NOT DETECTED [facility] Comment on above: Result Comment: This test is not yet approved or cleared by the [place] FDA. When there are no FDA-approved or cleared tests available, and other criteria are met, FDA can make tests available under an emergency access mechanism called an Emergency Use Authorization (EUA). The EUA for this test is supported by the [place] of Health and Human Service's (HHS's) declaration [...] consistent with SARS-CoV-2. Performed By: #### [facility] #### [facility] [address] [place] [address] Dr. Narendra Jacobsen COVID-19 Positive/NegativeOr dered By: Baljinder Rausch on 01-31-2022 SARS-CoV-2 (COVID-19) N gene AMBERLY+probe Ql (Resp) Negative Negative [facility] Comment on above: Testing for SARS-CoV -2 by RT-PCR This test was developed and its performance characteristics determined by [employer] ([employer]) and validated at the [facility]. This test has not been FDA [...] COVID-19 Positive/Negativeon 05-20-2020 COVID-19 Positive/Negative Negative Negative [facility] Comment on above: Testing for SARS-CoV -2 by RT-PCRThis test was developed and its performance characteristics determined by [employer] ([employer]) and validated at the [facility]. This test has not been FDA [...] Otheron 05-20-2020 Coronavirus 2019 PCR Interp N/A [facility] Automated basophil %on 05-14 Basophils/100 WBC (Bld) 0.5 % F [facility] Automated basophil counton 1 07-15-2019 Basophils (Bld) [#/Vol] 0.0 10*3/uL 0.0-0.2 [facility] Automated blood lymphocyte c ount (number/volume)on 05-14-2020 Lymphocytes (Bld) [#/Vol] 2.8 10*3/uL 1.00-4.8 [facility] Automated blood lymphocyte c ount as percentage of total leukocyteson 05-14-2020 Lymphocytes/100 WBC (Bld) 35.0 % [facility] Automated blood monocyte cou nton 05-14-2020 Monocytes (Bld) [#/Vol] 0.6 10*3/uL 0.0-0.8 [facility] Automated blood platelet cou nt (count/volume)on 05-14-2020 Platelets (Bld) [#/Vol] 225 10*3/uL 150-450 [facility] Automated blood platelet jose n volume measurementon 05-14-2020 Platelet mean volume (Bld) [Entitic vol] 8.2 fL 6.3-10.7 [facility] Automated eosinophil %on Eosinophils/100 WBC (Bld) 1.5 % [facility] Automated eosinophil counton 05-14-2020 Eosinophils (Bld) [#/Vol] 0.1 10*3/uL 0.0-0.45 [facility] Automated erythrocyte distri bution width ratioon 05-14-2020 Erythrocyte distribution width (RBC) [Ratio] 12.3 % 11.9-15.3 [facility] Automated erythrocyte mean c orpuscular hemoglobin (mass per erythrocyte)on 05-14-2020 MCH (RBC) [Entitic mass] 35.2 pg 24.7-34.3 [facility] Automated erythrocyte mean c orpuscular hemoglobin concentration measurement (mass/volon 05-14-2020 MCHC (RBC) [Mass/Vol] 34.2 g/dL 32.0-35.0 [facility] Automated erythrocyte mean c orpuscular volumeon 05-14-2020 MCV (RBC) [Entitic vol] 102.9 fL 80-100 F [facility] Automated monocyte %on 05-14 Monocytes/100 WBC (Bld) 7.0 % F [facility] Automated neutrophil %on Neutrophils/100 WBC (Bld) 56.0 % [facility] Blood erythrocytes automated count (number/volume)on 05-14-2020 RBC (Bld) [#/Vol] 4.08 10*6/uL 3.60-5.00 [facility] Blood hemoglobin measurement (mass/volume)on 05-14-2020 Hemoglobin (Bld) [Mass/Vol] 14.3 g/dL 11.8-15.4 [facility] Blood leukocytes automated c ount (number/volume)on 05-14-2020 WBC (Bld) [#/Vol] 7.9 10*3/uL 4.5-11.0 [facility] Blood neutrophil count by au tomated method (number/volume)on 05-14-2020 Neutrophils (Bld) [#/Vol] 4.4 10*3/uL 1.8-7.7 [facility] Estimated glomerular filtrat ion rate (GFR) non- Americanon 05-14-2020 GFR/1.73 sq M predicted among non-blacks MDRD (S/P/Bld) [Vol rate/Area] mL/min/{1.73_m2} [facility] Hematocrit [Volume Fraction] of Blood by Automated counton 05-14-2020 Hematocrit (Bld) [Volume fraction] 41.9 % 34.0-46.4 [facility] Otheron 05-14-2020 GFR/1.73 sq M.predicted MDRD (S/P/Bld) [Vol rate/Area] mL/min/{1.73_m2} [facility] Comment on above: GFR estimated refere nce range: According to KDOQI guidelines, <60 ml/min/1.73m2 is sufficient to diagnose a patient with chronic kidney disease. Nucleated RBC/100 WBC (Bld) [Ratio] 0.1 % 0-0.5 [facility] Creatinine Clearance (Chem N/A [facility] Serum or plasma calcium octavio urement (mass/volume)on 05-14-2020 Calcium [Mass/Vol] 10.1 mg/dL 8.2-10.2 [facility] Serum or plasma chloride jose surement (moles/volume)on 05-14-2020 Chloride [Moles/Vol] 101 mmol/L 95-114 [facility] Serum or plasma creatinine m easurement with calculation of estimated glomerular filtron 05-14-2020 Creatinine [Mass/Vol] 0.60 mg/dL 0.44-1.03 [facility] Serum or plasma glucose octavio urement (mass/volume)on 05-14-2020 Glucose [Mass/Vol] 94 mg/dL 70-100 [facility] Comment on above: ADA recommended refe rence rangeRandom Glucose Reference Range is dependent on time and content of last meal. Glucose of more than 200 mg/dL in a nonstressed, ambulatory subject supports the diagnosis of Diabetes Mellitus. Serum or plasma potassium me asurement (moles/volume)on 05-14-2020 Potassium [Moles/Vol] 4.3 mmol/L 3.5-5.1 [facility] Serum or plasma sodium measu rement (moles/volume)on 05-14-2020 Sodium [Moles/Vol] 140 mmol/L 136-146 [facility] Serum or plasma total carbon dioxide measurement (moles/volume)on 05-14-2020 CO2 [Moles/Vol] 27.2 mmol/L 22.0-30.0 [facility] Serum or plasma urea nitroge n measurement (mass/volume)on 05-14-2020 Urea nitrogen [Mass/Vol] 7 mg/dL 9 [facility] Vital Signs Date Time Vital Sign Value Performing Clinician Facility 08-17-2022 16:00-0400 Body height 160.02 cm Gina Blades Other [facility] [facility] Other 08-17-2022 16:00-0400 Body mass index (BMI) [Ratio] 40.56 kg/m2 Gina Blades Other [facility] Other 08-17-2022 16:00-0400 Body weight 103.87 kg Gina Blades Other [facility] Other 08-17-2022 16:00-0400 Diastolic blood pressure 82 mm[Hg] Gina Blades Other [facility] Other 08-17-2022 16:00-0400 Systolic blood pressure 126 mm[Hg] Gina Blades Other [facility] [facility] Other Encounters Encounter Date Encounter Type Care Provider Facility Start: 10-18-2023 End: 10-19-2023 ambulatory Aaron Mosqueda MD Facility: [facility] Start: 10-27-2022 ambulatory NARENDRANATH LAKSHMIPATHY . Facility: Start: 10-13-2022 End: 10-13-2022 ambulatory NARENDRANATH LAKSHMIPATHY . Facility: Start: 10-06-2022 End: 10-07-2022 ambulatory NARENDRANATH LAKSHMIPATHY . Facility:[facility] Start: 09-08-2022 End: 09-08-2022 ambulatory Gina Blades Other [facility] Other Start: 09-08-2022 Telephone encounter Gina Blades [facility] Start: 09-01-2022 End: 09-02-2022 ambulatory NARENDRANATH LAKSHMIPATHY . Facility:[facility] Start: 08-17-2022 End: 08-17-2022 Patient encounter procedure DO Roberto Roth Work Phone: [facility] [address] Work Phone: Start: 08-17-2022 End: 08-17-2022 ambulatory DO Roberto Roth Work Phone: [facility] Work Phone: Start: 08-17-2022 Office outpatient ne w 45 minutes Gina Blades [facility] Start: 07-16-2022 End: 07-17-2022 ambulatory DO Roberto Roth Work Phone: [facility] Work Phone: Start: 07-16-2022 End: 07-16-2022 Patient encounter procedure DO Roberto Roth Work Phone: [facility] [address] Work Phone: Start: 07-03-2022 End: 07-03-2022 ambulatory DO Roberto Roth Work Phone: [facility] Work Phone: Start: 07-03-2022 End: 07-03-2022 Patient encounter procedure DO Roberto Roth Work Phone: [facility] [place] Work Phone: Start: 06-23-2022 End: 06-23-[address] HOOD RAUSCH . Facility:[facility] Start: 05-29-2022 End: 05-30-[address] HOOD RAUSCH . Facility:[facility] Start: 05-14-2022 End: 05-15-2022 ambulatory ADA SINGH . Facility:[facility] Start: 03-12-2022 End: 03-13-[address] HOOD RAUSCH . Facility:[facility] Start: 02-13-2022 Encounter for preprocedural laboratory examination DR HOOD RAUSCH . [facility] Start: 02-10-2022 End: 02-10-[address] HOOD RAUSCH . Facility:[facility] Start: 02-06-2022 End: 02-07-[address] HOOD RAUSCH . Facility:[facility] Start: 02-06-2022 End: 02-07-2022 Encounter for preprocedural laboratory examination DR HOOD RAUSCH . Facility:[facility] Start: 02-03-2022 End: 02-03-[address] HOOD RAUSCH . Facility:[facility] Start: 01-31-2022 End: 01-31-2022 Patient encounter procedure DO Roberto Roth Work Phone: [facility] Start: 01-16-[address] HOOD RAUSCH . Faci lity:[facility] Start: 01-07-2022 End: 01-08-[address] HOOD RAUSCH . Facility:[facility] Start: 05-20-2020 End: 05-20-2020 Patient encounter procedure Roberto Roth -Pre-Surgical Testing Start: 05-14-2020 End: 05-14-2020 Patient encounter procedure Roberto Roth -Pre-Surgical Testing Start: 04-26-2020 End: 04-26-2020 Patient encounter procedure Roberto Roth -[facility] Procedures Date Procedure Procedure Detail Performing Clinician [...] XR hi p RT min 2V(w/wo pelvis)* [facility] Start: 08-17-2022 XR Hip - right 2 Views [facility] Start: 07-16-2022 Bacteria identified in Urine by Culture [facility] Start: 07-16-2022 Hemolytic complement CH50 level [facility] Start: 07-16-2022 [facility] Complement C3 [Mass/volume] in Serum or Plasma [facility] Complement C4 [Mass/volume] in Serum or Plasma [facility] Homogenous nuclear A b pattern [Titer] in Serum [facility] Nuclear Ab [Titer] i n Serum [facility] Immunizations Immunization Date Immunization Notes Care Provider Fa cility 11-09-2020 COVID-19 mRNA-1273 (Moderna) DO [employer] Work Phone: [facility] 10-12-2020 COVID-19 mRNA-1273 (Moderna) DO [employer] Work Phone: [facility] 05-23-2020 influenza, injectabl e, quadrivalent, preservative free DO [employer] Work Phone: [facility] Payers Date Payer Category Payer Unknown 2022 Self-pay [id number] 1970 Unknown [id number] 1968 Unknown [id number] ..[id number] 0.1.800102.3.579.2 1968 Unknown [id number] ..[id number] 0.1.817690.3.579.2 1968 Unknown [id number] ..[id number] 0.1.110841.3.579.2.59 1968 Unknown [id number] ..[id number] 0.1.585806.3.579.2.59 1968 Unknown [id number] ..[id number] 0.1.971792.3.579.2.593 1968 Unknown [id number] 2.16.84 0.1.861187.3.579.2.593 1968 Unknown [id number] 2.16.84 0.1.046662.3.579.2.593 1968 Unknown [id number] 2.16.84 0.1.398388.3.579.2.593 1968 Unknown [id number] 2.16.84 0.1.849933.3.579.2.593 1968 Unknown [id number] 2.16.84 0.1.104755.3.579.2.593 1968 Unknown [id number] 2.16.84 0.1.180173.3.579.2.593 1968 Unknown [id number] 2.16.84 0.1.252540.3.579.2.593 1968 Unknown [id number] 2.16.84 0.1.702275.3.579.2.593 1968 Unknown [id number] 2.16.84 0.1.235573.3.579.2.593 1968 Unknown [id number] 2.16. 840.1.539909.3.579.2.196 1959 Unknown [id number] Unknown [id number] Unknown [id number] 2.16.8 [id number] Social History Date Type Detail Facility Start: 05-14-2020 End: 06-23-2021 Tobacco smoking status [facility] Smoker (finding) [facility] Start: 1970 Sex Assigned At Female F [facility] Start: 06-23-1987 History of tobacco use [facility] Work Phone: Medical Equipment Procedure Code Equipment Code Equipment Origin al Text Equipment Identifier Dates Fusion, spine, lumbar, XLIF CANCELLOUS COARSE 7.5CC FDA Start: 05-22-2020 Fusion, spine, lumbar, XLIF Bone-screw internal spinal fixation system, non-sterile ()[id number] FDA Start: 05-22-2020 Fusion, spine, lumbar, XLIF Bone-screw internal spinal fixation system, non-sterile ()[id number] FDA Start: 05-22-2020 Fusion, spine, lumbar, XLIF Bone-screw internal spinal fixation system, non-sterile ()[id number] FDA Start: 05-22-2020 Fusion, spine, lumbar, XLIF CANCELLOUS COARSE 7.5CC FDA Start: 05-22-2020 Fusion, spine, lumbar, XLIF Bone-screw internal spinal fixation system, non-sterile ()[id number] FDA Start: 05-22-2020 Fusion, spine, lumbar, XLIF Bone-screw internal spinal fixation system, non-sterile ()[id number] FDA Start: 05-22-2020 Fusion, spine, lumbar, XLIF Polymeric spinal fusion cage, non-sterile ()[id number] FDA Start: 05-22-2020 Fusion, spine, lumbar, XLIF Dura mater graft, bovine ()[id number] FDA Start: 05-22-2020 Fusion, spine, lumbar, XLIF MAS REDUCTION FIXATION ADD LEV FDA Start: 05-22-2020 Fusion, spine, lumbar, XLIF XLIF 1 LEVEL MAS REDUCTION FDA Start: 05-22-2020 Fusion, spine, lumbar, XLIF Spinal fusion graft kit ()[id number] FDA Start: 05-22-2020 Fusion, spine, lumbar, XLIF Bone matrix implant, human-derived ()[id number] FDA Start: 05-22-2020 Fusion, spine, lumbar, XLIF Metallic spinal fusion cage, non-sterile ()[id number] FDA Start: 05-22-2020 Fusion, spine, lumbar, XLIF Bone-screw internal spinal fixation system, non-sterile ()[id number] FDA Start: 05-22-2020 Fusion, spine, lumbar, XLIF [...] pill b.i.d. and to continue to use Donahue 7.5 mg t.i.d. We did reduce the use at her last visit from 90 pills a month to 80 pills to last one month's time. She appears to be tolerating this transition quite well. I have asked her to continue with gabapentin 600 mg t.i.d. Her JOYCE on today's visit is 28. She reports the Donahue does improve her quality of life, level of functioning and sleep pattern, and she denies any side effects. As part of providing excellent, safe, comprehensive care, the following was completed at our patient's visit: 1. A medication reconciliation and review to ensure accurate knowledge of current/active medications, including asking our patients to inform us about any byhu-wxg-mfcljuo medications or herbal remedies/nutritional supplements/alternative remedies. 2. [...] options with their primary care provider. [facility] 09-01-2022 Note CONSULTATION CONSULTATION DATE: 09/01/2022 TO: [...] our patients to inform us about any oetx-xhe-fpcgijj medications or herbal remedies/nutritional supplements/alternative remedies. 2. [...] options with their primary care provider. [facility] 08-17-2022 Evaluation note Encounter Date Diagnosis Assessment Notes Jul, Other chronic pain (ICD-10 - G89.29) Jul, Low back pain, unspecified (ICD-10 - M54.50) [employer] Other 02-16-2023 NoteCONSULTATION CONSULTATION DATE: 07/16/2022 HISTORY OF PRESENT ILLNESS: This is a 51-year-old female who returns to the clinic status post bilateral SI joint injection completed on 06/23/2022. The patient received 80% relief for one day and on day two felt worse than her normal baseline pain. Today, she rates her pain 8/10. Medications include gabapentin 600 mg t.i.d., Donahue 7.5/325 b.i.d. and Mobic 15 mg daily. [...] her medications; Mobic 15 mg daily and Donahue 7.5/325 b.i.d. She will return to the clinic in six weeks' time, in which we will, in addition to her PCPs office, review the MRI and form a plan of care at that time. Patient is in agreement to this plan.[facility] [id number] Note CONSULTATION CONSULTATION DATE: 05/29/2022 HISTORY OF [...] down. Medications include gabapentin 600 mg t.i.d., Donahue 7.5/325 b.i.d. and diclofenac 50 mg daily. [...] care and will be followed up thereafter.[facility] [id number] NoteCONSULTATION CONSULTATION DATE: 05/14/2022 HISTORY OF PRESENT [...] as well as gabapentin 600 mg t.i.d., Donahue 7.5/325 t.i.d. At her last appointment, she [...] Refills for gabapentin 600 mg t.i.d. and Donahue 7.5/325 b.i.d. will be sent to her pharmacy. Patient agrees to move forward with the procedure. She will followed up in the clinic thereafter.[facility] [id number] NotePAIN MANAGEMENT CONSULTATION CONSULTATION DATE: 05/14/2022 CHIEF [...] with a sacroiliac joint injection under fluoroscopy.[facility] [id number] NoteCONSULTATION CONSULTATION DATE: 03/12/2022 ADDENDUM DIAGNOSIS: Lumbar spondylosis, lumbar degenerative disc disease, chronic lower back pain and a history of a lumbar fusion.[facility] [id number] Note CONSULTATION CONSULTATION DATE: 03/12/2022 This is [...] Current medications include gabapentin 600 mg t.i.d., Donahue 7.5/325 b.i.d., diclofenac cream and ibuprofen. She [...] with her vitamins as well as her Donahue. The dose of frequency will not be changed. We will have the patient return to the clinic in two months' time for re-evaluation. The patient is inquiring about an increase of her Donahue, possibly during the winter months. There will be no changes today.[facility] [id number] NoteCONSULTATION CONSULTATION DATE: 01/07/2022 This is a [...] Current medications include gabapentin 600 mg b.i.d., Donahue 7.5/325 b.i.d., diclofenac topical, multivitamin regimen and ibuprofen p.r.n. She has tried diclofenac in the past but was unable to tolerate it due to stomach issues but low-dose ibuprofen she can tolerate. She is needing Donahue and gabapentin refill today. REVIEW OF SYSTEMS, [...] subsequently move to the left. Refill for Donahue 7.5/325 b.i.d. and gabapentin 600 mg b.i.d. will be sent to the pharmacy. The patient is encouraged to increase magnesium in her vitamin regimen as well as menthol heat rub, seated stretches that were demonstrated and heat application. The patient agrees with the plan of care and would like to move forward and she will follow-up in the clinic post procedure.[facility] CenterEvaluation noteNo assessment information availableKettering Health [facility] Ctr Work Phone: Evaluation noteNo InformationNortButler Memorial Hospital [employer] Wal[employer] Other History general Narrative - Reported* Type [...] see above Hospitalization History 4 child births [facility] [employer] Other Advance Directives No Advanced Directives Records [...] section and content) DATE CREATED AUTHOR 08/01/2022 [facility] dical Specialist DATE CREATED AUTHOR AUTHOR'S ORGANIZ ATION 11/06/2022 [facility] DATE CREATED AUTHOR AUTHOR'S ORGANIZ ATION 10/24/2023 [facility] DATE CREATED AUTHOR AUTHOR'S ORGANIZ ATION 11/24/2023 [facility] REASON FOR VISIT (unrecogniz ed section and [...] BE BASED ON THE PRIMARY CLINICAL RECORDS. [employer] [facility]. provides no warranty or guarantee of the accuracy or completeness of information in this document.
--- NOTE | 2024-01-26 15:39 | P.CN_ITS ---
Consult Note: HPI Data of Consult Patient: known to practice within the last 3 years Requesting Physician: Day Fleming NP Primary Care Provider: Non-Staff Physician, MD Consult Narrative Reason for consult: f/u Narrative: Kim Hill a pleasant 52 year old female presents to office for evaluation of chronic low back and right buttock pain, post lumbar fusion L4-5 L5-S1. Patient rating pain today 3/10 increasing to 6/10 with standing and activity. Patient finds mild to moderate benefit with norco 7.5-325mg TID PRN, gabapentin 600mg TID, baclofen 10mg BID, mobic 15mg daily without side effects. . Pt has a hx of multilevel lumbar fusion 3 years ago. Recently completed lumbar MRI consistent with neuroforaminal stenosis. Patient underwent right L3-4 L5-S1 TFESI and right SIJ injection in september and continues to report moderate ongoing relief, patient would like to consider repeating these injections in the future. At this time she is f/u with NS for a second opinion on her chronic right leg pain after her lumbar fusion. cc:: CC: Day Fleming NP Review of Systems ROS Status of ROS 10 or more systems reviewed and unremark able except as noted in history and below Musculoskeletal Reports: back pain, extremity pain, extremity swelling and muscle weakness PFSH PFSH Medical History Osteoarthritis ?M19.90 - Unspecified osteoarthritis, unspecified site (ICD-10) Rheumatoid arthritis ?M06.9 - Rheumatoid arthritis, unspecified (ICD-10) Anxiety ?F41.9 - Anxiety disorder, unspecified (ICD-10) Acid reflux ?K21.9 - Gastro-esophageal reflux disease without esophagitis (ICD-10) Smoker ?F17.200 - Nicotine dependence, unspecified, uncomplicated (ICD-10) Asthma ?J45.909 - Unspecified asthma, uncomplicated (ICD-10) Heart murmur ?R01.1 - Cardiac murmur, unspecified (ICD-10) HTN (hypertension) ?I10 - Essential (primary) hypertension (ICD-10) Surgical History History of lymph node excision ?Z98.890 - Other specified postprocedural states (ICD-10) History of hysterectomy ?Z90.710 - Acquired absence of both cervix and uterus (ICD-10) History of lumbar fusion ?Z98.1 - Arthrodesis status (ICD-10) Meds Home Medications and Allergies Home Medications ?Medication ?Instructions ?Recorded ?Confirmed ?Type PRO AIR 11/12/22 History VITAMIN C DAILY 11/12/22 History baclofen 10 mg tablet 10 mg PO TID 11/12/22 10/18/23 History cholecalciferol (vit D3) 1,000 1 tab PO DAILY 11/12/22 10/18/23 History unit-vitamin K2 (MK4) 100 mcg tablet (K2 Plus D3) krill 1,000 mg-omega-3 170 mg-dha 1 cap PO DAILY 11/12/22 10/18/23 History 50 mg-epa 80 nx-strqmk-fboor capsule (krill oil) lisinopril 10 mg tablet 10 mg PO DAILY 11/12/22 10/18/23 History meloxicam 15 mg tablet 15 mg PO DAILY 11/12/22 10/18/23 History omeprazole 20 mg capsule,delayed 20 mg PO DAILY 11/12/22 10/18/23 History release gabapentin 600 mg tablet 600 mg PO TID #90 tabs 08/17/23 10/18/23 Rx acetylcysteine 600 mg capsule (NAC) 1,200 mg PO BID 10/04/23 10/18/23 History montelukast 10 mg tablet mg 10/04/23 History gabapentin 600 mg tablet 600 mg PO TID #90 tabs 10/13/23 10/18/23 Rx hydrocodone 7.5 mg-acetaminophen 1 tab PO TID PRN pain #90 tabs 10/13/23 10/18/23 Rx 325 mg tablet hydrocodone 7.5 mg-acetaminophen See Rx Instructions .Route 11/12/23 Rx 325 mg tablet .COMPLEX PRN pain #70 tabs hydrocodone 7.5 mg-acetaminophen 1 tab PO TID PRN pain #70 tabs 11/17/23 Rx 325 mg tablet hydrocodone 7.5 mg-acetaminophen 1 tab PO TID PRN pain #90 tabs 12/10/23 Rx 325 mg tablet hydrocodone 7.5 mg-acetaminophen See Rx Instructions .Route 01/19/24 Rx 325 mg tablet .COMPLEX PRN pain #70 tabs Allergies Allergy/AdvReac Type Severity Reaction Status Date / Time amoxicillin [From Augmentin] Allergy Unknown Verified 10/18/23 09:00 clavulanic acid Allergy Unknown Verified 10/18/23 09:00 [From Augmentin] Penicillins Allergy Unknown Verified 10/18/23 09:00 Exam Constitutional Documenting provider has reviewed patient's vital signs: yes Common normals: no apparent distress, oriented x3, healthy appearing, alert and well nourished General appearance: cooperative HENMT Common normals: normocephalic, hearing grossly normal bilaterally and moist oral mucous membranes Head and scalp: normocephalic Eye Common normals: PERRL Pupil: PERRL Neck & C-Spine Common normals: full ROM General: normal visual inspection Cervical spine: pain with cervical ROM and paracervical muscle tenderness Other: intermittent radiculopathy to bilateral hands right greater than left Chest Common normals: inspection of chest normal Respiratory Common normals: normal respiratory effort, no retractions and no use of accessory muscles Back & Pelvis Lumbar spine/lower back: ROM limited, pain with ROM and straight leg raise positive right Sacroiliac joints: SI joint(s) abnormal (right positive beto, fadir, thigh thrust, gaenslens ) Other: decreased sensation in RLE following L3-4, L5-S1 dermatomal pattern weakness to BLE 4/5 LLE 4/5 in RLE Extremity Common normals: full ROM Other: nonpitting edema to RLE utilizing right ankle brace for instability and foot drop Neuro Common normals: oriented x3, CN's II-XII intact bilaterally, moves all extremities, no focal motor deficits, no sensory deficits noted and deep tendon reflexes 2+ bilaterally Sensorium/orientation: alert Gait (neuro): antalgic Motor exam: no movement abnormalities noted and strength abnormal Psych Common normals: mental status grossly normal, thought process normal, cooperat niru, affect normal, speech normal and activity/motor behavior normal Speech: normal speech Thought process: normal thought process Results Additional Findings Additional findings: If on a controlled substance or opioids, I have checked an [place]AR[place] report on this patient and there are no aberrancies noted in the prescribing history.??If on a controlled substance or opioid a drug screen was completed and reviewed within the last year, and if there has not been a drug screen completed we ordered one today to monitor higher risk, state monitored pain medication use. As part of providing excellent, safe, comprehensive care, the following was completed at our patient's visit: 1. A medication reconciliation and review to ensure accurate knowledge of current/active medications, including asking our patients to inform us about any hfon-bqr-ugpatux medications or herbal remedies/nutritional supplements/alternative remedies. 2. A review to specifically ensure our patients have had annual screening for screening for depression, screening for tobacco use, and screening for unhealthy alcohol use. For concerning screenings had a discussion with the patient, provided patient education, and recommended follow-up with primary care provider when appropriate. If patient noted with a risk of falling, they received education on strength, gait, and balance training to prevent future risk of falling. Assessment and Plan Assessment and Plan (1) Lumbar stenosis with neurogenic claudication: (2) Sacroiliitis: (3) Muscle atrophy: (4) Failed back syndrome: (5) Lumbar radiculopathy: (6) Chronic prescription opiate use: Assessment and Plan: I feel these medications are improving the patient's quality of life and allow them to tolerate activities of daily living as well as participate in recreational activity.? The patient does not report intolerable side effects. The patient is NOT opioid naive and non-pharmacologic and non-opioid treatment has failed to significantly relieve the patient's pain and improve functionality. The patient has a diagnosis that is related to a somatic or visceral pain etiology. ? ?? I reviewed with the patient the potential risks and side effects with the use of? opioid medications including but not limited to respiratory depression,? sedation, and even . I verified the patient has access to naloxone should? these effects occur. I advised the patient to avoid the use of any other? sedation substances including alcohol, THC, and benzodiazepines while? taking opioid medications due to the risk of compounding side effects and? detrimental outcomes. I reviewed the [employer], pain treatment agreement, urine? drug screen, and opioid start talking forms. The patient was advised to let? their family know they had Naloxone in case they would need to administer? the medication.? ?? A drug screen was completed within the last year, and no aberrancies were noted regarding their use of controlled substances. The patient understands they are subject to the terms and conditions of the pain contract that they have signed. ? ?? I have checked an OARRS report on this patient today and there are no aberrancie s noted in the prescribing history.? The patient was advised that U.S. Food and Drug Administration (FDA) is warning that respiratory depression may occur in patients using gabapentin (Neurontin, Gralise, Horizant) or pregabalin (Lyrica, Lyrica CR) who have respiratory risk factors. These include the use of opioid pain medicines and other drugs that depress the central nervous system, and conditions such as chronic obstructive pulmonary disease (COPD) that reduce lung function. The elderly are also at higher risk.? Plan pain well controlled at this time, can call to schedule repeat right L3-4 L5-S1 TFESI and right SIJ injection when ready as previous injections provided >50% improvement greater than 3 months continue f/u with NS, can consider spinal cord stimulator trial in the future as discussed today cannot tolerate higher doses of gabapentin, continue 600mg TID continue baclofen 10mg BID PRN continue mobic 15mg qd, denies side effects. risks vs benefits of chronic NSAIDs and potential side effects reviewed continue norco 7.5-325mg TID PRN moderate to severe pain, finds functional improvement without side effects katherinean discussed and previously prescribed TENS for myofascial pain/spasms and muscle atrophy f/u 2 weeks after injection therapy completed or 3 months for medication management
== END 2024-01-26 15:09 | disposition home or self-care (01) ==
LOC: PM 15:08
PROVIDERS: Visit Provider Nurse Practitioner
DX: M48.062 Spinal stenosis, lumbar region with neurogenic claudication (principal); M46.1 Sacroiliitis, not elsewhere classified; M62.50 Muscle wasting and atrophy, not elsewhere classified, unspecified site; M96.1 Postlaminectomy syndrome, not elsewhere classified; M54.16 Radiculopathy, lumbar region; Z79.891 Long term (current) use of opiate analgesic
CPT/HCPCS: G0463

== ENCOUNTER 2024-03-27 07:34 | Day surgery (SDC) | payer BC, SELFPAY ==
--- OUTSIDE RECORDS SUMMARY | 2024-03-27 07:36 | XMS_ITS | CCD ---
Author Organization [facility] Care Team Providers Care Court Liaison Name Role Phone Roberto Roth Primary Care Provider Justice Cruz Attending Provider DO Roberto Roth Primary Care Provider MD Hood Rausch Attending Provider [phone] DO Roberto Roth Primary Care Provider [phone] CALVIN Yu Attending Provider MD Paresh Tian Attending Provider [phone] DO Roberto Roth Primary Care Provider CALVIN Yu Attending Provider MD Paresh Tian Attending Provider [phone] MD Gina Guerrero Attending Provider [phone] Gina Guerrero Unavailable SHE ., DR HOOD [...] IRA, DR ROBERTO Bhakta Primary Care Unavailable JILSHMIPATHOlga ., NARENDOMAR Attending Manjula vailable DR ROBERTO ROTH Primary Care Unavailable LAKSHMIPATHY ., NARJETHRO Admitting Manjula vailable RAUSCH ., DR HOOD Hernandez Attending Unavailable RAUSCH ., DR HOOD Hernandez Admitting Unavailable ROTH, DR ROBERTO Bhakta Primary Care Unavailable RAUSCH ., DR HOOD Hernandez Consulting Unavailable NATALEE WALLIS Consulting Unavailable RAUSCH ., DR HOOD Hernandez [...] ROTH, DR ROBERTO Bhakta Primary Care Unavailable UNION, DR DASHA Gomez Consulting Unavailable SINGH ., [...] vailable LAKSHMIPATHY ., NARENDTONYATH Attending Manjula vailable DR ROBERTO ROTH Primary Care Unavailable Panda BUSTILLO, Aaron Musa Attending Unavailable Roberto Roth Primary Care Unavailable Gina Guerrero Attending Unavailable Gina Guerrero Admitting Unavailable [employer] SUPERVISOR, Aby Unavailable Unavailable Unavailable Unavailable Allergies Allergy Classification Reported Allergen(s) Allergy Type Date of Onset Reaction(s) Facility (6 sources) Amoxicillin; Translations: [amoxicillin] Drug Allergy 0 [facility] (7 sources) Penicillins; Translations: [Penicillins] Propensity to adverse reactions 4 [facility] (6 sources) clavulanic acid; Translations: [clavulanic acid] Propensity to adverse reactions 0 [facility] (3 sources) Amoxicillin / Clavulanate; Translations: [Augmentin] Drug Allergy 4 Unknown [facility] (2 sources) Azithromycin Drug Allergy diarrhea [facility] [employer] Other (2 sources) Penicillin G Drug Allergy Unknown [facility] [employer] Other Medications Current Medications Medication Drug Class(es) Dates Sig (Normalized) Sig (Original) acetaminophen 500 mg oral tablet (4 sources) Start: 05-31-2020 take 500 mg by mouth every four hours Acetaminophen Active 500 MG PO Q4H 100 May 31, 2020 1:00am [id number] 200 actuat albuterol 0.09 mg/actuat metered dose [...] by mouth three times daily Hydrocodone-Acetami nophen ([place]) 5-325 mg Tablet Discontinued 1 TAB PO Three times daily March 18, 2019 12:00am May 23, 2020 4:59pm [place] Active azithromycin 250 mg oral tablet (4 [...] Capsule Discontinued 100 MG PO Twice daily May 31, 2020 1:00am June 23, 2021 [...] sources) High risk drug monitoring status; Translations: [FCI (current) use of opiate analgesic] Episodic Other [...] by Justice Lucas on 07/31/2022 0915 Normal [facility] Automated erythrocytes count in urine sediment (number/area)Ordered By: Paresh Tian on 07-16-2022 RBC Auto (Urine sed) [#/Area] 1-2 [HPF] 0-4 [facility] Automated leukocytes count i n urine sediment (number/area)Ordered By: Paresh Tian on 07-16-2022 WBC Auto (Urine sed) [#/Area] 20-49 [HPF] 0-4 [facility] Basophils Auto (Bld) [#/Vol] Ordered By: Paresh Tian on 07-16-2022 Basophils (Bld) [#/Vol] 0.0 10*3/uL 0.0-0.2 [facility] Basophils/100 WBC Auto (Bld) Ordered By: Paresh Tian on 07-16-2022 Basophils/100 WBC (Bld) 0.4 % . [facility] Bilirubin Test strip Ql (U)O rdered By: Paresh Tian on 07-16-2022 Bilirubin Ql (U) Negative Negative [facility] C reactive protein [Mass/vol ume] in Serum or PlasmaOrdered By: Paresh Tian on 07-16-2022 CRP [Mass/Vol] 0.8 mg/dL 0.0-1.0 [facility] Color Auto (U)Ordered By: Afia Tian on 07-16-2022 Color (U) Yellow Yellow [facility] Creatinine and Glomerular fi ltration rate.predicted panel (S/P/Bld)Ordered By: Paresh Tian on 07-16-2022 Creatinine [Mass/Vol] 0.74 mg/dL 0.44-1.03 [facility] Eosinophils Auto (Bld) [#/Vo l]Ordered By: Paresh Tian on 07-16-2022 Eosinophils (Bld) [#/Vol] 0.1 10*3/uL 0.0-0.45 [facility] Eosinophils/100 WBC Auto (Bl d)Ordered By: Paresh Tian on 07-16-2022 Eosinophils/100 WBC (Bld) 1.1 % . [facility] Erythrocyte distribution wid th Auto (RBC) [Ratio]Ordered By: Paresh Tian on 07-16-2022 Erythrocyte distribution width (RBC) [Ratio] 13.0 % 11.9-15.3 [facility] Erythrocyte sedimentation ra te by Photometric methodOrdered By: Paresh Tian on 07-16-2022 ESR Photometric method (Bld) [Velocity] 45 mm/hr 0-29 [facility] Estimated glomerular filtrat ion rate (GFR) non- AmericanOrdered By: Paresh Tian on 07-16-2022 GFR/1.73 sq M.predicted among non-blacks MDRD (S/P/Bld) [Vol rate/Area] > 60 mL/Min [facility] Hematocrit Auto (Bld) [Volum e fraction]Ordered By: Paresh Tian on 07-16-2022 Hematocrit (Bld) [Volume fraction] 45.3 % 34.0-46.4 [facility] Hemoglobin [Mass/volume] in BloodOrdered By: Paresh Tian on 07-16-2022 Hemoglobin (Bld) [Mass/Vol] 15.2 g/dL 11.8-15.4 [facility] Ketones Auto test strip (U) [Mass/Vol]Ordered By: Paresh Tian on 07-16-2022 Ketones (U) [Mass/Vol] Negative Negative [facility] Laboratory - UrinalysisOrder ed By: Paresh Tian on 07-16-2022 Hyaline casts LM Ql (Urine sed) 0-8 [LPF] 0-8 [facility] Leukocytes [#/volume] correc scot for nucleated erythrocytes in Blood by Automated counOrdered By: Paresh Tian on 07-16-2022 WBC corrected for nucl RBC Auto (Bld) [#/Vol] 10.4 10*3/uL 3.8-11.6 [facility] Lymphocytes Auto (Bld) [#/Vo l]Ordered By: Paresh Tian on 07-16-2022 Lymphocytes (Bld) [#/Vol] 3.7 10*3/uL 1.00-4.8 [facility] Lymphocytes/100 WBC Auto (Bl d)Ordered By: Paresh Tian on 07-16-2022 Lymphocytes/100 WBC (Bld) 35.0 % . [facility] MCH Auto (RBC) [Entitic mass ]Ordered By: Paresh Tian on 07-16-2022 MCH (RBC) [Entitic mass] 33.8 pg 24.7-34.3 [facility] MCHC Auto (RBC) [Mass/Vol]Or dered By: Paresh Tian on 07-16-2022 MCHC (RBC) [Mass/Vol] 33.6 g/dL 32.0-35.0 [facility] MCV Auto (RBC) [Entitic vol] Ordered By: Paresh Tian on 07-16-2022 MCV (RBC) [Entitic vol] 100.6 fL 80-100 [facility] Mitotic spindle apparatus Ab [Titer] in Serum or Plasma by ImmunofluorescenceOrdered By: Paresh Tian on 07-16-2022 Mitotic spindle apparatus Ab IF [Titer] 1:160 . [facility] Comment on above: ICAP nomenclature: A C-[id number] Monocytes Auto (Bld) [#/Vol] Ordered By: Paresh Tian on 07-16-2022 Monocytes (Bld) [#/Vol] 0.7 10*3/uL 0.0-0.8 [facility] Monocytes/100 WBC Auto (Bld) Ordered By: Paresh Tian on 07-16-2022 Monocytes/100 WBC (Bld) 6.8 % . [facility] Neutrophils Auto (Bld) [#/Vo l]Ordered By: Paresh Tian on 07-16-2022 Neutrophils (Bld) [#/Vol] 5.9 10*3/uL 1.8-7.7 [facility] Neutrophils/100 WBC Auto (Bl d)Ordered By: Paresh Tian on 07-16-2022 Neutrophils/100 WBC (Bld) 56.7 % . [facility] Nitrite Test strip Ql (U)Ord ered By: Paresh Tian on 07-16-2022 Nitrite Ql (U) Negative Negative [facility] No Panel InformationOrdered By: Paresh Tian on 07-16-2022 Anti-Nuclear Antibody Comment 2 See comment . [facility] Comment on above: For more information about [...] titers Nucleosomes, Histones Drug-induced SLE Speckled Sm, PRODUCTION STAFF WORKER, SCL-70, SLE,MCTD,PSS (diffuse form), SS-A/SS-B Sjogrens Nucleolar SCL-70, PM-1/SCL High titers Scleroderma, PM/DM Centromere Centromere PSS (limited form) w/Crest syndrome variable Nuclear Dot Sp100,[id number] Primary Biliary Cirrhosis Nuclear GP210, Primary Biliary CirrhosisMembrane kailyn A,B,C Performed at: [facility] [id number] Director: Collin Rodriguez PhD, Phone: [phone] Estimated GFR () > 60 mL/Min [facility] Comment on above: GFR estimated refere nce range: According to KDOQI guidelines, <60 ml/min/1.73m2 is sufficient to diagnose a patient with chronic kidney disease. Pharmacy Creatinine Clearance (Chem N/A [facility] Total Complement (CH50) >60 U/mL >41 [facility] Comment on above: Age Male Female [...] to determine out of range values.Performed at: [facility] [id number] Director: Collin Rodriguez PhD, Phone: [phone] Nucleated erythrocytes [Pres ence] in Blood by Automated countOrdered By: Paresh Tian on 07-16-2022 Nucleated RBC Auto Ql (Bld) 0.1 /100{WBC} 0-0.5 [facility] Platelet mean volume Auto (B ld) [Entitic vol]Ordered By: Paresh Tian on 07-16-2022 Platelet mean volume (Bld) [Entitic vol] 8.4 fL 6.3-10.7 [facility] Platelets Auto (Bld) [#/Vol] Ordered By: Paresh Tian on 07-16-2022 Platelets (Bld) [#/Vol] 242 10*3/uL 150-450 [facility] Protein Auto test strip (U) [Mass/Vol]Ordered By: Paresh Tian on 07-16-2022 Protein (U) [Mass/Vol] Negative Negative [facility] RBC Auto (Bld) [#/Vol]Ordere d By: Paresh Tian on 07-16-2022 RBC (Bld) [#/Vol] 4.50 10*6/uL 3.60-5.00 [facility] Serum homogeneous pattern an tinuclear antibody (ASTER) titerOrdered By: Paresh Tian on 07-16-2022 Homogenous nuclear Ab pattern (S) [Titer] N/A [facility] Serum nuclear antibody titer Ordered By: Paresh Tian on 07-16-2022 Nuclear Ab (S) [Titer] Positive . [facility] Comment on above: Negative <1:80 Borde rline 1:80 Positive >1:80 Serum or plasma complement C 3 measurement (mass/volume)Ordered By: Paresh Tian on 07-16-2022 Complement C3 [Mass/Vol] 197 mg/dL 82-167 [facility] Comment on above: Performed at: [facility] [place] [id number] Director: Collin Rodriguez PhD, Phone: [phone] Serum or plasma complement C 4 measurement (mass/volume)Ordered By: Paresh Tian on 07-16-2022 Complement C4 [Mass/Vol] 42 mg/dL 12-38 [facility] Specific gravity Auto test s trip (U) [Rel density]Ordered By: Paresh Tian on 07-16-2022 Specific gravity (U) [Rel density] 1.018 1.001-1.03 0 [facility] Squamous epithelial cells de tection in urine sediment by light microscopyOrdered By: Paresh Tian on 07-16-2022 Epithelial cells.squamous LM Ql (Urine sed) 0-1 [HPF] 0-2 [facility] Urine bacteria detection by automated methodOrdered By: Paresh Tian on 07-16-2022 Bacteria Auto Ql (U) 4+ None Seen [facility] Urine clarity by refractomet ry automatedOrdered By: Paresh Tian on 07-16-2022 Clarity Refractometry automated (U) Clear Clear [facility] Urine culture routineOrdered By: Paresh Tian on 07-16-2022 Bacteria identified Cx Nom (U) Escherichia coli [facility] Urine glucose measurement by automated test strip (mass/volume)Ordered By: Paresh Tian on 07-16-2022 Glucose Auto test strip (U) [Mass/Vol] Normal mg/dL Normal [facility] Urine hemoglobin detection b y automated test stripOrdered By: Paresh Tian on 07-16-2022 Hemoglobin Auto test strip Ql (U) Negative Negative [facility] Urine leukocyte esterase det ection by automated test stripOrdered By: Paresh Tian on 07-16-2022 Leukocyte esterase Auto test strip Ql (U) 3+ Negative [facility] Urobilinogen Auto test strip (U) [Mass/Vol]Ordered By: Paresh Tian on 07-16-2022 Urobilinogen (U) [Mass/Vol] Normal mg/dL Normal [facility] WBC Auto (Bld) [#/Vol]Ordere d By: Paresh Tian on 07-16-2022 WBC (Bld) [#/Vol] 10.4 10*3/uL 3.8-11.6 [facility] pH Auto test strip (U)Ordere d By: Paresh Tian on 07-16-2022 pH (U) 6.5 [pH] 5.0-9.0 [facility] XR HIPS ZEINA 3_4V WO PELVISon 05-15-2022 [...] DASHA KHAN Date: 2022-05-15 07:49 Normal [facility] Covid-19 PCR (CVDTB)on SARS-CoV-2 (COVID-19) RNA AMBERLY+probe Ql (Unsp spec) Not detected Normal NOT DETECTED [facility] Comment on above: Result Comment: This test is not yet approved or cleared by the [place] FDA. When there are no FDA-approved or cleared tests available, and other criteria are met, FDA can make tests available under an emergency access mechanism called an Emergency Use Authorization (EUA). The EUA for this test is supported by the Client Coordinator of Health and Human Service's (HHS's) declaration [...] consistent with SARS-CoV-2. Performed By: #### C [facility] #### [facility] [address] [place] [address] Dr. Narendra Jacobsen COVID-19 Positive/NegativeOr dered By: Baljinder Rausch on 01-31-2022 SARS-CoV-2 (COVID-19) N gene AMBERLY+probe Ql (Resp) Negative Negative [facility] Comment on above: Testing for SARS-CoV -2 by RT-PCR This test was developed and its performance characteristics determined by [employer] ([place]) and validated at the [facility]. This test has not been FDA cleared [...] Positive/Negativeon 05-20-2020 COVID-19 Positive/Negative Negative Negative [facility] Comment on above: Testing for SARS-CoV -2 by RT-PCRThis test was developed and its performance characteristics determined by [employer] ([employer]) and validated at the [facility]. This test has not been FDA cleared [...] 05-20-2020 Coronavirus 2019 PCR Interp N/A [facility] Automated basophil %on 05-14 Basophils/100 WBC (Bld) 0.5 % [facility] [place] Automated basophil counton 1 07-15-2019 Basophils (Bld) [#/Vol] 0.0 10*3/uL 0.0-0.2 [facility] Automated blood lymphocyte c ount (number/volume)on 05-14-2020 Lymphocytes (Bld) [#/Vol] 2.8 10*3/uL 1.00-4.8 [facility] Automated blood lymphocyte c ount as percentage of total leukocyteson 05-14-2020 Lymphocytes/100 WBC (Bld) 35.0 % [facility] Automated blood monocyte cou nton 05-14-2020 Monocytes (Bld) [#/Vol] 0.6 10*3/uL 0.0-0.8 [facility] Automated blood platelet cou nt (count/volume)on 05-14-2020 Platelets (Bld) [#/Vol] 225 10*3/uL 150-450 [facility] Automated blood platelet jose n volume measurementon 05-14-2020 Platelet mean volume (Bld) [Entitic vol] 8.2 fL 6.3-10.7 [facility] Automated eosinophil %on Eosinophils/100 WBC (Bld) 1.5 % [facility] Automated eosinophil counton 05-14-2020 Eosinophils (Bld) [#/Vol] 0.1 10*3/uL 0.0-0.45 [facility] Automated erythrocyte distri bution width ratioon 05-14-2020 Erythrocyte distribution width (RBC) [Ratio] 12.3 % 11.9-15.3 [facility] Automated erythrocyte mean c orpuscular hemoglobin (mass per erythrocyte)on 05-14-2020 MCH (RBC) [Entitic mass] 35.2 pg 24.7-34.3 [facility] Automated erythrocyte mean c orpuscular hemoglobin concentration measurement (mass/volon 05-14-2020 MCHC (RBC) [Mass/Vol] 34.2 g/dL 32.0-35.0 [facility] Automated erythrocyte mean c orpuscular volumeon 05-14-2020 MCV (RBC) [Entitic vol] 102.9 fL 80-100 [facility] [place] Automated monocyte %on 05-14 Monocytes/100 WBC (Bld) 7.0 % [facility] [place] Automated neutrophil %on Neutrophils/100 WBC (Bld) 56.0 % [facility] Blood erythrocytes automated count (number/volume)on 05-14-2020 RBC (Bld) [#/Vol] 4.08 10*6/uL 3.60-5.00 [facility] Blood hemoglobin measurement (mass/volume)on 05-14-2020 Hemoglobin (Bld) [Mass/Vol] 14.3 g/dL 11.8-15.4 [facility] Blood leukocytes automated c ount (number/volume)on 05-14-2020 WBC (Bld) [#/Vol] 7.9 10*3/uL 4.5-11.0 [facility] Blood neutrophil count by au tomated method (number/volume)on 05-14-2020 Neutrophils (Bld) [#/Vol] 4.4 10*3/uL 1.8-7.7 [facility] Estimated glomerular filtrat ion rate (GFR) non- Americanon 05-14-2020 GFR/1.73 sq M predicted among non-blacks MDRD (S/P/Bld) [Vol rate/Area] mL/min/{1.73_m2} [facility] Hematocrit [Volume Fraction] of Blood by Automated counton 05-14-2020 Hematocrit (Bld) [Volume fraction] 41.9 % 34.0-46.4 [facility] Otheron 05-14-2020 GFR/1.73 sq M.predicted MDRD (S/P/Bld) [Vol rate/Area] mL/min/{1.73_m2} [facility] Comment on above: GFR estimated refere nce range: According to KDOQI guidelines, <60 ml/min/1.73m2 is sufficient to diagnose a patient with chronic kidney disease. Nucleated RBC/100 WBC (Bld) [Ratio] 0.1 % 0-0.5 [facility] Pharmacy Creatinine Clearance (Chem N/A [facility] Serum or plasma calcium octavio urement (mass/volume)on 05-14-2020 Calcium [Mass/Vol] 10.1 mg/dL 8.2-10.2 [facility] Serum or plasma chloride jose surement (moles/volume)on 05-14-2020 Chloride [Moles/Vol] 101 mmol/L 95-114 [facility] Serum or plasma creatinine m easurement with calculation of estimated glomerular filtron 05-14-2020 Creatinine [Mass/Vol] 0.60 mg/dL 0.44-1.03 [facility] Serum or plasma glucose octavio urement (mass/volume)on 05-14-2020 Glucose [Mass/Vol] 94 mg/dL 70-100 [facility] Comment on above: ADA recommended refe rence rangeRandom Glucose Reference Range is dependent on time and content of last meal. Glucose of more than 200 mg/dL in a nonstressed, ambulatory subject supports the diagnosis of Diabetes Mellitus. Serum or plasma potassium me asurement (moles/volume)on 05-14-2020 Potassium [Moles/Vol] 4.3 mmol/L 3.5-5.1 [facility] Serum or plasma sodium measu rement (moles/volume)on 05-14-2020 Sodium [Moles/Vol] 140 mmol/L 136-146 [facility] Serum or plasma total carbon dioxide measurement (moles/volume)on 05-14-2020 CO2 [Moles/Vol] 27.2 mmol/L 22.0-30.0 [facility] Serum or plasma urea nitroge n measurement (mass/volume)on 05-14-2020 Urea nitrogen [Mass/Vol] 7 mg/dL 9-23 [facility] Vital Signs Date Time Vital Sign Value Performing Clinician Facility 08-17-2022 16:00-0400 Body height 160.02 cm Gina Blades Other [employer] Other 08-17-2022 16:00-0400 Body mass index (BMI) [Ratio] 40.56 kg/m2 Gina Blades Other [employer] Other 08-17-2022 16:00-0400 Body weight 103.87 kg Gina Blades Other [employer] Other 08-17-2022 16:00-0400 Diastolic blood pressure 82 mm[Hg] Gina Blades Other [employer] Other 08-17-2022 16:00-0400 Systolic blood pressure 126 mm[Hg] Gina Blades Other [employer] Other Encounters Encounter Date Encounter Type Care Provider Facility Start: 03-06-2024 End: 03-10-2024 Chart abstracting Joelle Sarmiento MD Work Phone: Neurology Start: 10-18-2023 End: 10-19-2023 ambulatory Aaron Mosqueda MD Facility:[facility] Start: 10-27-2022 ambulatory NARENDRANATH LAKSHMIPATHY . Facility:[facility] Start: 10-13-2022 End: 10-13-2022 ambulatory NARENDRANATH LAKSHMIPATHY . Facility:[facility] Start: 10-06-2022 End: 10-07-2022 ambulatory NARENDRANATH LAKSHMIPATHY . Facility:[facility] Start: 09-08-2022 End: 09-08-2022 ambulatory [address] Blades Other [facility] [employer] Other Start: 09-08-2022 Telephone encounter Gina Blades [facility] Start: 09-01-2022 End: 09-02-2022 ambulatory NARENDRANATH LAKSHMIPATHY . Facility: Start: 08-17-2022 End: 08-17-2022 Patient encounter procedure DO Roberto Roth Work Phone: [facility] Work Phone: Start: 08-17-2022 End: 08-17-2022 ambulatory DO Roberto Roth Work Phone: [facility] Work Phone: Start: 08-17-2022 Office outpatient ne w 45 minutes [address] [facility] Start: 07-16-2022 End: 07-17-2022 ambulatory DO Roberto Roth Work Phone: [facility] Work Phone: Start: 07-16-2022 End: 07-16-2022 Patient encounter procedure DO Roberto Roth Work Phone: [facility] [address] Work Phone: Start: 07-03-2022 End: 07-03-2022 ambulatory DO Roberto Roth Work Phone: [facility] Work Phone: Start: 07-03-2022 End: 07-03-2022 Patient encounter procedure DO Roberto Roth Work Phone: [facility] Work Phone: Start: 06-23-2022 End: 06-23-[address] HODO RAUSCH . Facility:[facility] Start: 05-29-2022 End: 05-30-[address] HOOD RAUSCH . Facility:[facility] Start: 05-14-2022 End: 05-15-2022 ambulatory ADA SINGH . Facility:[facility] Start: 03-12-2022 End: 03-13-[address] HOOD RAUSCH . Facility:[facility] Start: 02-13-2022 Encounter for preprocedural laboratory examination DR HOOD RAUSCH . [facility] Start: 02-10-2022 End: 02-10-[address] HOOD RAUSCH . Facility:[facility] Start: 02-06-2022 End: 02-07-[address] HOOD RAUSCH . Facility:[facility] Start: 02-06-2022 End: 02-07-2022 Encounter for preprocedural laboratory examination DR HOOD RAUSCH . Facility:[facility] Start: 02-03-2022 End: 02-03-[address] HOOD RAUSCH . Facility:[facility] Start: 01-31-2022 End: 01-31-2022 Patient encounter procedure DO Roberto Roth Work Phone: [facility] COVID Testing Start: 01-16-[address] HOOD RAUSCH . Faci lity:[facility] Start: 01-07-2022 End: 01-08-[address] HOOD RAUSCH . Facility:[facility] Start: 05-20-2020 End: 05-20-2020 Patient encounter procedure Roberto Roth -Pre-Surgical Testing Start: 05-14-2020 End: 05-14-2020 Patient encounter procedure Roberto Roth -Pre-Surgical Testing Start: 04-26-2020 End: 04-26-2020 Patient encounter procedure Roberto Roth -[facility] Procedures Date Procedure Procedure Detail Performing [...] XR hi p RT min 2V(w/wo pelvis)* [facility] Start: 08-17-2022 XR Hip - right 2 Views [facility] Start: 07-16-2022 Bacteria identified in Urine by Culture [facility] Start: 07-16-2022 Hemolytic complement CH50 level [facility] Start: 07-16-2022 [facility] Complement C3 [Mass/volume] in Serum or Plasma [facility] Complement C4 [Mass/volume] in Serum or Plasma [facility] Homogenous nuclear A b pattern [Titer] in Serum [facility] Nuclear Ab [Titer] i n Serum [facility] Immunizations Immunization Date Immunization Notes Care Provider Fa cili 11-09-2020 COVID-19 mRNA-1273 (Moderna) DO Roberto Roth Work Phone: [facility] 10-12-2020 COVID-19 mRNA-1273 (Moderna) DO Roberto Roth Work Phone: [facility] 05-23-2020 influenza, injectabl e, quadrivalent, preservative free DO Roberto Roth Work Phone: [facility] Payers Date Payer Category Payer Unknown 2022 Self-pay [id number] 1970 Unknown [id number] 1970 Unknown [id number] 0.1.962628.3.579.259 1970 Unknown [id number] .16.84 0.1.374833.3.579.2.593 1968 Unknown [id number] 0.1.742501.3.579.2.593 1968 Unknown [id number] 2.16.84 0.1.520339.3.579.2.593 1968 Unknown [id number] 2.16.84 0.1.742941.3.579.2.593 1968 Unknown [id number] 2.16.84 0.1.641703.3.579.2.593 1968 Unknown [id number] 2.16.84 0.1.999395.3.579.2.593 1968 Unknown [id number] 2.16.84 0.1.016991.3.579.2.593 1968 Unknown [id number] 2.16.84 0.1.631769.3.579.2.593 1968 Unknown [id number] 2.16.84 0.1.807203.3.579.2.593 1968 Unknown [id number] 2.16.84 0.1.307078.3.579.2.593 1968 Unknown [id number] 2.16.84 0.1.345783.3.579.2.593 1968 Unknown [id number] 2.16.84 0.1.124784.3.579.2.593 1968 Unknown [id number] 2.16.84 0.1.715204.3.579.2.593 1968 Unknown [id number] 2.16. 840.1.056924.3.579.2.196 1959 Unknown [id number] Unknown [id number] Unknown [id number] 2.16.8 40.1.570246.3.579.2.531 Social History Date Type Detail Facility Start: 05-14-2020 End: 06-23-2021 Tobacco smoking status [facility] Smoker (finding) [facility] Start: 1970 Sex Assigned At Female F [facility] Start: 06-23-1987 History of tobacco use [facility] Work Phone: Tobacco smoking status [facility] Tobacco smoking consumption unknown [facility] Start: 1970 Sex assigned at Not on file [facility] Medical Equipment Procedure Code Equipment Code Equipment Origin al Text Equipment Identifier Dates Fusion, spine, lumbar, XLIF CANCELLOUS COARSE 7.5CC FDA Start: 05-22-2020 Fusion, spine, lumbar, XLIF Bone-screw internal spinal fixation system, non-sterile ()[id number] FDA Start: 05-22-2020 Fusion, spine, lumbar, XLIF Bone-screw internal spinal fixation system, non-sterile ()[id number] FDA Start: 05-22-2020 Fusion, spine, lumbar, XLIF Bone-screw internal spinal fixation system, non-sterile ()[id number] FDA Start: 05-22-2020 Fusion, spine, lumbar, XLIF CANCELLOUS COARSE 7.5CC FDA Start: 05-22-2020 Fusion, spine, lumbar, XLIF Bone-screw internal spinal fixation system, non-sterile ()[id number] FDA Start: 05-22-2020 Fusion, spine, lumbar, XLIF Bone-screw internal spinal fixation system, non-sterile ()[id number] FDA Start: 05-22-2020 Fusion, spine, lumbar, XLIF Polymeric spinal fusion cage, non-sterile ()[id number] FDA Start: 05-22-2020 Fusion, spine, lumbar, XLIF Dura mater graft, bovine ()[id number] FDA Start: 05-22-2020 Fusion, spine, lumbar, XLIF MAS REDUCTION FIXATION ADD LEV FDA Start: 05-22-2020 Fusion, spine, lumbar, XLIF XLIF 1 LEVEL MAS REDUCTION FDA Start: 05-22-2020 Fusion, spine, lumbar, XLIF Spinal fusion graft kit ()[id number] FDA Start: 05-22-2020 Fusion, spine, lumbar, XLIF Bone matrix implant, human-derived ()[id number] FDA Start: 05-22-2020 Fusion, spine, lumbar, XLIF Metallic spinal fusion cage, non-sterile ()[id number] FDA Start: 05-22-2020 Fusion, spine, lumbar, XLIF Bone-screw internal spinal fixation system, non-sterile ()[id number] FDA Start: 05-22-2020 Fusion, spine, lumbar, XLIF [...] Desired Activity /State Clinical Notes 01-07-2022 to 03-10-2024 Kenan Godoy APRN.ANGEL - 03/10/2024 4:02 PM EDMarla Crews - 03/06/2024 9:53 AM EDT Note Date & Type Note Facility 03-10-2024 Note HNO ID: [id number] Author: KENAN GODOY 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 Author Type: Nurse Practitioner Type: Progress Notes Filed: 03/10/2024 16:07 Note Text: Per Triage: Kim Hill is a 53 year old female that requests evaluation of lumbar. Per review, they have symptoms of LB/legs/feet - numbness AND burning pain only when sitting/standing/walking - numbness AND weakness in legs - r worse then l - r drop foot - standing AND sitting most uncomfortable position - laying is most comfortable position Provider Dr Aby Yu Requesting guillermina Priro sur - lumbar - [facility] - 2 cages CMT: Inj, gabapentin, meloxicam, voltaren cream, heat, mdp x1 Denton - 3x/dy Studies (Reports unless indicated) Mri lumbar report Lumbarization S1 S/p :L4-S1 fusion L5/S1 mod b/l FS S1/2 paraspinal muscle mod to severe atrophy Disposition: Please schedule with dr sarmiento if patient would like soon can schedule with myself. Please instruct patient to bring copy of imaging and injection history for review. [facility] 03-10-2024 History of Present illness Narrative Per Triage: Kim Hill is a 53 year old female that requests evaluation of lumbar. Per review, they have symptoms of LB/legs/feet - numbness & burning pain only when sitting/standing/walking - numbness & weakness in legs - r worse then l - r drop foot - standing & sitting most uncomfortable position - laying is most comfortable position Provider Dr Aby Yu Requesting guillermina Priro sur - lumbar - [facility] - 2 cages CMT: Inj, gabapentin, meloxicam, voltaren cream, heat, mdp x1 Denton - 3x/dy Studies (Reports unless indicated) Mri lumbar report Lumbarization S1 S/p :L4-S1 fusion L5/S1 mod b/l FS S1/2 paraspinal muscle mod to severe atrophy Disposition: Please schedule with dr sarmiento if patient would like soon can schedule with myself. Please instruct patient to bring copy of imaging and injection history for review. Patient name: Kim Hill Are you being referred by a [facility] for [facility] Provider or Pain Management Provider at [facility]? No If answer is YES please schedule directly with surgeon, triage does not need to be completed. Is this a self-referral No If not, who is the Referring Provider Dr Aby Yu Is this a 2nd opinion from another spine surgeon? Yes Were you offered surgery? No MRI/CT/myelogram within 12 months? Yes If NO , please refer to medical spine or PCP to complete above imaging, triage does not need to be completed If YES, please ask for the name/address of the facility where the MRI/CT/myelogram was completed: [place] [address] MRI/CT/myelogram viewable in Epic: No If not, please provide [phone] to fax in imaging reports for review. Also, please inform patient to hand carry imaging disc to appointment. XR (spine) within 12 months: Yes If YES, please ask for the name/address of the facility where the XR was completed: [place] [address] Dr. Freeman's patients: Have you had previous EMG/Nerve Conduction Study, Ultrasound, or MRI for these same symptoms? If YES, please ask for the name/address of the facility where they were completed: Requested provider (First and Last name): Guillermina Are you interested in a virtual visit if offered? No 1. Where are you having symptoms related to this visit? LB/legs/feet - numbness & burning pain only when sitting/standing/walking - numbness & weakness in legs - r worse then l - r drop foot - standing & sitting most uncomfortable position - laying is most comfortable position - Back pain Yes Leg pain Yes Arm pain No Neck pain No 2. Are you having any of the following symptoms: Difficulty walking Yes Numbness Yes Weakness Yes Trouble using your hands? No 3. Have you had any injections or physical therapy in the last 12 months? Yes If YES then please ask for the name/address of the facility where the injections and/or physical therapy was completed [place] [address] Have you tried any other kinds of non-surgical treatments in the last 12 months? (For example: NSAIDS, muscle relaxants, analgesics, oral steroids, Chiropractor, Acupuncture): gabapentin, meloxicam, voltaren cream, heat, mdp x1 4. Are you currently taking daily prescribed narcotic medications for your current symptoms (For example Oxycodone, Hydrocodone, Tramadol, Morphine, Other)? Yes Denton - 3x/dy 5. Have you had previous spinal surgery for this same symptoms? Yes If YES please ask for the name of facility/address of where the surgery was completed: [facility] cages Additional Comments [phone] documented in this encounter [facility] 03-06-2024 Note HNO ID: [id number] Author: ?, ?, ? Service: ? Author Type: ? Type: Progress Notes Filed: 03/10/2024 16:07 Note Text: Patient name: Kim Hill Are you being referred by a [facility] Spine Health Provider or Pain Management Provider at [facility]? No If answer is YES please schedule directly with surgeon, triage does not need to be completed. Is this a self-referral No If not, who is the Referring Provider Dr Aby Yu Is this a 2nd opinion from another spine surgeon? Yes Were you offered surgery? No MRI/CT/myelogram within 12 months? Yes If NO , please refer to medical spine or PCP to complete above imaging, triage does not need to be completed If YES,? please ask for the name/address of the facility where the MRI/CT/myelogram was completed: [place] [address] MRI/CT/myelogram viewable in Epic: No If not, please provide [phone] to fax in imaging reports for review. Also, please inform patient to hand carry imaging disc to appointment. XR (spine) within 12 months: Yes If YES,? please ask for the name/address of the facility where the XR was completed: [place] [address] Dr. Freeman's patients: Have you had previous EMG/Nerve Conduction Study, Ultrasound, or MRI for these same symptoms? If YES,? please ask for the name/address of the facility where they were completed: Requested provider (First and Last name): Guillermina Are you interested in a virtual visit if offered? No 1. Where are you having symptoms related to this visit? LB/legs/feet - numbness AND burning pain only when sitting/standing/walking - numbness AND weakness in legs - r worse then l - r drop foot - standing AND sitting most uncomfortable position - laying is most comfortable position - Back pain Yes Leg pain Yes Arm pain No Neck pain No 2. Are you having any of the following symptoms: Difficulty walking Yes Numbness Yes Weakness Yes Trouble using your hands? No 3. Have you had any injections or physical therapy in the last 12 months? Yes If YES then please ask for the name/address of the facility where the injections and/or physical therapy was completed [facility] [place] - [address] [place] [address] Have you tried any other kinds of non-surgical treatments in the last 12 months? (For example: NSAIDS, muscle relaxants, analgesics, oral steroids, Chiropractor, Acupuncture): gabapentin, meloxicam, voltaren cream, heat, mdp x1 4. Are you currently taking daily prescribed narcotic medications for your current symptoms (For example Oxycodone, Hydrocodone, Tramadol, Morphine, Other)? Yes Denton - 3x/dy 5. Have you had previous spinal surgery for this same symptoms? Yes If YES? please ask for the name of facility/address of where the surgery was completed: 2019 - [facility] - 2 cages Additional Comments [phone] [facility] 10-06-2022 Note CONSULTATION CONSULTATION DATE: 10/06/2022 TO: [...] pill b.i.d. and to continue to use Denton 7.5 mg t.i.d. We did reduce the use at her last visit from 90 pills a month to 80 pills to last one month's time. She appears to be tolerating this transition quite well. I have asked her to continue with gabapentin 600 mg t.i.d. Her JOYCE on today's visit is 28. She reports the Denton does improve her quality of life, level of functioning and sleep pattern, and she denies any side effects. As part of providing excellent, safe, comprehensive care, the following was completed at our patient's visit: 1. A medication reconciliation and review to ensure accurate knowledge of current/active medications, including asking our patients to inform us about any kxke-idp-ltpayaz medications or herbal remedies/nutritional supplements/alternative remedies. 2. [...] options with their primary care provider. [facility] 09-01-2022 Note CONSULTATION CONSULTATION DATE: 09/01/2022 [...] our patients to inform us about any lgve-iiq-cgttott medications or herbal remedies/nutritional supplements/alternative remedies. 2. [...] options with their primary care provider. [facility] 08-17-2022 Evaluation note Encounter Date Diagnosis Assessment Notes Jul, Other chronic pain (ICD-10 - G89.29) Jul, Low back pain, unspecified (ICD-10 - M54.50) [employer] Other 02-16-2023 NoteCONSULTATION CONSULTATION DATE: 07/16/2022 HISTORY OF PRESENT ILLNESS: This is a 51-year-old female who returns to the clinic status post bilateral SI joint injection completed on 06/23/2022. The patient received 80% relief for one day and on day two felt worse than her normal baseline pain. Today, she rates her pain 8/10. Medications include gabapentin 600 mg t.i.d., Denton 7.5/325 b.i.d. and Mobic 15 mg daily. [...] her medications; Mobic 15 mg daily and Denton 7.5/325 b.i.d. She will return to the clinic in six weeks' time, in which we will, in addition to her PCPs office, review the MRI and form a plan of care at that time. Patient is in agreement to this plan.[facility] [id number] Note CONSULTATION CONSULTATION DATE: 05/29/2022 HISTORY OF [...] down. Medications include gabapentin 600 mg t.i.d., Denton 7.5/325 b.i.d. and diclofenac 50 mg daily. [...] care and will be followed up thereafter.[facility] [id number] NoteCONSULTATION CONSULTATION DATE: 05/14/2022 HISTORY OF PRESENT [...] as well as gabapentin 600 mg t.i.d., Denton 7.5/325 t.i.d. At her last appointment, she [...] Refills for gabapentin 600 mg t.i.d. and Denton 7.5/325 b.i.d. will be sent to her pharmacy. Patient agrees to move forward with the procedure. She will followed up in the clinic thereafter.[facility] [id number] NotePAIN MANAGEMENT CONSULTATION CONSULTATION DATE: 05/14/2022 CHIEF [...] with a sacroiliac joint injection under fluoroscopy.[facility] [id number] NoteCONSULTATION CONSULTATION DATE: 03/12/2022 ADDENDUM DIAGNOSIS: Lumbar spondylosis, lumbar degenerative disc disease, chronic lower back pain and a history of a lumbar fusion.[facility] [id number] Note CONSULTATION CONSULTATION DATE: 03/12/2022 This is [...] Current medications include gabapentin 600 mg t.i.d., Denton 7.5/325 b.i.d., diclofenac cream and ibuprofen. She [...] with her vitamins as well as her Denton. The dose of frequency will not be changed. We will have the patient return to the clinic in two months' time for re-evaluation. The patient is inquiring about an increase of her Denton, possibly during the winter months. There will be no changes today.[facility] [id number] NoteCONSULTATION CONSULTATION DATE: 01/07/2022 This is a [...] Current medications include gabapentin 600 mg b.i.d., Denton 7.5/325 b.i.d., diclofenac topical, multivitamin regimen and ibuprofen p.r.n. She has tried diclofenac in the past but was unable to tolerate it due to stomach issues but low-dose ibuprofen she can tolerate. She is needing Denton and gabapentin refill today. REVIEW OF SYSTEMS, [...] subsequently move to the left. Refill for Denton 7.5/325 b.i.d. and gabapentin 600 mg b.i.d. will be sent to the pharmacy. The patient is encouraged to increase magnesium in her vitamin regimen as well as menthol heat rub, seated stretches that were demonstrated and heat application. The patient agrees with the plan of care and would like to move forward and she will follow-up in the clinic post procedure.[facility] HospitalEvaluation noteNo assessment information availableOhiohealth Arthur [facility] Work Phone: Evaluation noteNo InformationNortEncompass Health Rehabilitation Hospital of [facility] [employer] Other History general Narrative - Reported* Type [...] History [address] [facility] [employer] Other Advance Directives Advance Directive Response Recorded Date/ Time Advance Directives No March 17, 2019 11:58pm Advance Directive Response Recorded Date/ Time Advance Directives No March 18, 2019 12:58am Chief Complaint and Reason for Visit Chief Complaint m47.817 Spondylolisthesis Spondylolisthesis Chief Complaint Pre-Surgical Testing Chief Complaint M54.51 Chief Complaint M54.51 R53.82 i33.90 G57.11 Assessments No Assessments Information Available Family History Relationship Condition Age at Onset Recorded Date/T gracy father Diabetes mellitus Unknown Not Specified Diabetes mellitus Unknown Summary Purpose Additional Source Comments Care Teams (unrecognized sec tion and content) Team Status: Inactive Member Role Status Dates Roberto oRth DO Primary Care Provider Active Hood Rausch [...] Active Gina Guerrero MD Attending Provider Active Court Liaison Relationship Specialty Start Date End Date Aby Yu CNP [address] [place] [address] Referring Family Medicine 03/02/24 Goals (unrecognized section and content) Goals may be documented in a n alternate sectionGoals may be documented in an alternate sectionGoals may be documented in an alternate sectionGoals may be documented in an alternate sectionNo InformationNo Information INFORMATION SOURCE (unrecogn ized section and content) DATE CREATED AUTHOR 08/01/2022 [facility] dical Specialist DATE CREATED AUTHOR AUTHOR'S ORGANIZ ATION 11/06/2022 [facility] DATE CREATED AUTHOR AUTHOR'S ORGANIZ ATION 10/24/2023 [facility] DATE CREATED AUTHOR AUTHOR'S ORGANIZ ATION 11/24/2023 [facility] DATE CREATED AUTHOR AUTHOR'S ORGANIZ ATION 03/13/2024 [facility] REASON FOR VISIT (unrecogniz ed section and content) referred by Lorne Gonzales b ack and right hip painmri location Source Comments (unrecognize d section and content) In the event this informatio n is protected by the Federal Confidentiality of Alcohol and Drug Abuse Patient Records regulations: The Federal rules restrict any use of the information to criminally investigate or prosecute any alcohol or drug abuse patient.[facility] FOR RECORDS PERTAINING TO PATIENTS WHO ARE [...] BE BASED ON THE PRIMARY CLINICAL RECORDS. [employer] [facility]. provides no warranty or guarantee of the accuracy or completeness of information in this document.
[2024-03-27 07:53] VITALS: BP 139/88; PULSE 101; TEMP 36.6; O2SAT 99
[2024-03-27] MEDS: DEXAMETHASONE SOD PHOS 10 MG/ML VIAL INJ (08:49)
[2024-03-27] MEDS: 0.9 % SODIUM CHLORIDE 10 ML SYRINGE - SALINE FLUSH INJ (08:49)
[2024-03-27] MEDS: LIDOCAINE HCL 2% 400 MG/20 ML MDV 5 ML INJ (08:49)
[2024-03-27] MEDS: BUPIVACAINE HCL 0.25% PF 25 MG/10 ML VIAL INJ (08:49)
[2024-03-27] MEDS: IOHEXOL 240 MG/ML - 10 ML VIAL INJ (08:49)
[2024-03-27 08:51] VITALS: BP 156/82; BP 158/80; PULSE 102; PULSE 103; O2SAT 92; O2SAT 94
--- NOTE | 2024-03-27 08:51 | P.ON_ITS ---
Date of procedure: 03/27/24 Pre-op diagnosis: Pain due to lumbar stenosis with neurogenic claudication Post-op diagnosis: same as pre-op Procedure: Procedure: Right L3-4, L5-S1 transforaminal epidural steroid injection Medications: Bupivacaine 0.25% 2cc, lidocaine 2% 1cc, kenalog 80mg The patient was seen and examined in the preoperative holding area.? Informed consent was obtained and placed on the chart.? Patient was brought to the medical procedure unit and placed in the prone position where a timeout was completed verifying the correct patient, procedure site, position, and planned special equipment using sterile aseptic technique.? Under direct fluoroscopic visualization a 25-gauge Quincke tipped spinal needle was advanced to the designated neural foramen where contrast dye was injected to show adequate spread.? The needle was inserted at level right L3-4. There was no evidence of vascular or adverse uptake.? Epidural spread was appreciated.? The above- mentioned injectate was then placed in a 1.5 mL aliquot preceded by negative aspiration.? The needle was removed. The needle was inserted and the procedure repeated at level right L5-S1.? The surgery site was covered.? Patient was taken to the postprocedural recovery area and monitored for an appropriate length of time before found suitable for discharge in the accompaniment of a responsible adult. Anesthesia: Local Surgeon: Aaron Mosqueda Pathology: none sent Condition: stable Disposition: no change
== END 2024-03-27 08:57 | disposition home or self-care (01) ==
LOC: SURGOUT 07:34
PROVIDERS: Visit Provider Anesthesiology
DX: M48.062 Spinal stenosis, lumbar region with neurogenic claudication (principal)
CPT/HCPCS: 64483; 64484; J0665; J1100; Q9966

== ENCOUNTER 2024-04-12 15:13 | Outpatient (OUT) | payer BC, SELFPAY ==
--- OUTSIDE RECORDS SUMMARY | 2024-04-12 15:30 | XMS_ITS | CCD ---
Author Organization [facility] Care Team Providers Care Support Clerk Name Role Phone Roberto Roth Primary Care Provider Justice Cruz Attending Provider DO Roberto Roth Primary Care Provider MD Hood Rausch Attending Provider [phone] DO Roberto Roth Primary Care Provider [phone] CALVIN Yu Attending Provider MD Paresh Tian Attending Provider [phone] DO Roberto Roth Primary Care Provider [phone] CALVIN Yu Attending Provider MD Paresh Tian Attending Provider MD Gina Guerrero Attending Provider [phone] Gina Guerrero Unavailable SHE ., DR HOOD [...] ROBERTO ROTH Primary Care Unavailable LAKSHMIPATHY ., NARENDTONYATH Admitting Manjula vailable LAKSHMIPATHY ., NARENDRANATH Admitting Manjula vailable LAKSHMIPATHY ., NARENDRANATH Consulting Manjula vailable LAKSHMIPATHY ., NARENDTONYATH Attending Manjula vailable DR ROBERTO ROTH Primary Care Unavailable LAKSHMIPATHY ., NARENDRANATH Admitting Manjula vailable LAKSHMIPATHY ., NARENDRANATH Consulting Manjula vailable LAKSHMIPATHY ., NARENDTONYATH Attending Manjula vailable DR ROBERTO ROTH Primary Care Unavailable Roberto Roth Primary Care Unavailable Gina Guerrero Attending Unavailable Gina Guerrero Admitting Unavailable Aby Yu CNP Unavailable Giliatitis , Aaron Musa Attending Unavailable Panda BUSTILLO, Aaron Musa Attending Unavailable Unavailable Unavailable Unavailable Allergies Allergy Classification Reported Allergen(s) Allergy Type Date of Onset Reaction(s) Facility (6 sources) Amoxicillin; Translations: [amoxicillin] Drug Allergy 0 [facility] (7 sources) Penicillins; Translations: [Penicillins] Propensity to adverse reactions 4 Nausea [facility] (6 sources) clavulanic acid; Translations: [clavulanic acid] Propensity to adverse reactions 0 [facility] (3 sources) Amoxicillin / Clavulanate; Translations: [Augmentin] Drug Allergy 4 Unknown [facility] Repository (2 sources) Azithromycin Drug Allergy diarrhea [facility] [employer] Other (2 sources) Penicillin G Drug Allergy Unknown [facility] [employer] Other Medications Current Medications Medication Drug Class(es) Dates Sig (Normalized) Sig (Original) acetaminophen 500 mg oral tablet (4 sources) Start: 05-31-2020 take 500 mg by mouth every four hours Acetaminophen Active 500 MG PO Q4H 100 May 31, 2020 1:00am [id number] 200 actuat albuterol 0.09 mg/actuat metered dose [...] by mouth three times daily Hydrocodone-Acetami nophen ([place]) 5-325 mg Tablet Discontinued 1 TAB PO Three times daily March 18, 2019 12:00am May 23, 2020 4:59pm [place] Active azithromycin 250 mg oral tablet (4 [...] sources) High risk drug monitoring status; Translations: [halfway (current) use of opiate analgesic] Episodic Other [...] by Justice Lucas on 07/31/2022 0915 Normal [facility] Automated erythrocytes count in urine sediment (number/area)Ordered By: Paresh Tian on 07-16-2022 RBC Auto (Urine sed) [#/Area] 1-2 [HPF] 0-4 [facility] Automated leukocytes count i n urine sediment (number/area)Ordered By: Paresh Tian on 07-16-2022 WBC Auto (Urine sed) [#/Area] 20-49 [HPF] 0-4 [facility] Basophils Auto (Bld) [#/Vol] Ordered By: Paresh Tian on 07-16-2022 Basophils (Bld) [#/Vol] 0.0 10*3/uL 0.0-0.2 [facility] Basophils/100 WBC Auto (Bld) Ordered By: Paresh Tian on 07-16-2022 Basophils/100 WBC (Bld) 0.4 % . [facility] Bilirubin Test strip Ql (U)O rdered By: Paresh Tian on 07-16-2022 Bilirubin Ql (U) Negative Negative [facility] C reactive protein [Mass/vol ume] in Serum or PlasmaOrdered By: Paresh Tian on 07-16-2022 CRP [Mass/Vol] 0.8 mg/dL 0.0-1.0 [facility] Color Auto (U)Ordered By: Afia Tian on 07-16-2022 Color (U) Yellow Yellow [facility] Creatinine and Glomerular fi ltration rate.predicted panel (S/P/Bld)Ordered By: Paresh Tian on 07-16-2022 Creatinine [Mass/Vol] 0.74 mg/dL 0.44-1.03 [facility] Eosinophils Auto (Bld) [#/Vo l]Ordered By: Paresh Tian on 07-16-2022 Eosinophils (Bld) [#/Vol] 0.1 10*3/uL 0.0-0.45 [facility] Eosinophils/100 WBC Auto (Bl d)Ordered By: Paresh Tian on 07-16-2022 Eosinophils/100 WBC (Bld) 1.1 % . [facility] Erythrocyte distribution wid th Auto (RBC) [Ratio]Ordered By: Paresh Tian on 07-16-2022 Erythrocyte distribution width (RBC) [Ratio] 13.0 % 11.9-15.3 [facility] Erythrocyte sedimentation ra te by Photometric methodOrdered By: Paresh Tian on 07-16-2022 ESR Photometric method (Bld) [Velocity] 45 mm/hr 0-29 [facility] Estimated glomerular filtrat ion rate (GFR) non- AmericanOrdered By: Paresh Tian on 07-16-2022 GFR/1.73 sq M.predicted among non-blacks MDRD (S/P/Bld) [Vol rate/Area] > 60 mL/Min [facility] Hematocrit Auto (Bld) [Volum e fraction]Ordered By: Paresh Tian on 07-16-2022 Hematocrit (Bld) [Volume fraction] 45.3 % 34.0-46.4 [facility] Hemoglobin [Mass/volume] in BloodOrdered By: Paresh Tian on 07-16-2022 Hemoglobin (Bld) [Mass/Vol] 15.2 g/dL 11.8-15.4 [facility] Ketones Auto test strip (U) [Mass/Vol]Ordered By: Paresh Tian on 07-16-2022 Ketones (U) [Mass/Vol] Negative Negative [facility] Laboratory - UrinalysisOrder ed By: Paresh Tian on 07-16-2022 Hyaline casts LM Ql (Urine sed) 0-8 [LPF] 0-8 [facility] Leukocytes [#/volume] correc scot for nucleated erythrocytes in Blood by Automated counOrdered By: Paresh Tian on 07-16-2022 WBC corrected for nucl RBC Auto (Bld) [#/Vol] 10.4 10*3/uL 3.8-11.6 [facility] Lymphocytes Auto (Bld) [#/Vo l]Ordered By: Paresh Tian on 07-16-2022 Lymphocytes (Bld) [#/Vol] 3.7 10*3/uL 1.00-4.8 [facility] Lymphocytes/100 WBC Auto (Bl d)Ordered By: Paresh Tian on 07-16-2022 Lymphocytes/100 WBC (Bld) 35.0 % . [facility] MCH Auto (RBC) [Entitic mass ]Ordered By: Paresh Tian on 07-16-2022 MCH (RBC) [Entitic mass] 33.8 pg 24.7-34.3 [facility] MCHC Auto (RBC) [Mass/Vol]Or dered By: Paresh Tian on 07-16-2022 MCHC (RBC) [Mass/Vol] 33.6 g/dL 32.0-35.0 [facility] MCV Auto (RBC) [Entitic vol] Ordered By: Paresh Tian on 07-16-2022 MCV (RBC) [Entitic vol] 100.6 fL 80-100 [facility] Mitotic spindle apparatus Ab [Titer] in Serum or Plasma by ImmunofluorescenceOrdered By: Paresh Tian on 07-16-2022 Mitotic spindle apparatus Ab IF [Titer] 1:160 . [facility] Comment on above: ICAP nomenclature: A C-25,26 Monocytes Auto (Bld) [#/Vol] Ordered By: Paresh Tian on 07-16-2022 Monocytes (Bld) [#/Vol] 0.7 10*3/uL 0.0-0.8 [facility] Monocytes/100 WBC Auto (Bld) Ordered By: Paresh Tian on 07-16-2022 Monocytes/100 WBC (Bld) 6.8 % . [facility] Neutrophils Auto (Bld) [#/Vo l]Ordered By: Paresh Tian on 07-16-2022 Neutrophils (Bld) [#/Vol] 5.9 10*3/uL 1.8-7.7 [facility] Neutrophils/100 WBC Auto (Bl d)Ordered By: Paresh Tian on 07-16-2022 Neutrophils/100 WBC (Bld) 56.7 % . [facility] Nitrite Test strip Ql (U)Ord ered By: Paresh Tian on 07-16-2022 Nitrite Ql (U) Negative Negative [facility] No Panel InformationOrdered By: Paresh Tian on 07-16-2022 Anti-Nuclear Antibody Comment 2 See comment . [facility] Comment on above: For more information about Hep-2 cell patterns useeSKY.plpatterns.org, the official website for the InternationalConsensus on Antinuclear Antibody (ASTER) Patterns (ICAP). --------A positive ASTER result may occur in healthy individuals (lowtiter) or be associated with a variety of diseases. Seeinterpretation chart which is not all inclusive:Pattern Antigen Detected Suggested Disease Association Homogeneous DNA(ds,ss), SLE - High titers Nucleosomes, Histones Drug-induced SLE Speckled Sm, [employer] SALES [employer]AGE [employer], SCL-70, SLE,MCTD,PSS (diffuse form), SS-A/SS-B Sjogrens Nucleolar SCL-70, PM-1/SCL High titers Scleroderma, PM/DM Centromere Centromere PSS (limited form) w/Crest syndrome variable Nuclear Dot [id number] Primary Biliary Cirrhosis Nuclear GP210, Primary Biliary CirrhosisMembrane kailyn A,B,C Performed at: [employer] [id number] Director: Collin Rodriguez PhD, Phone: [phone] Estimated GFR () > 60 mL/Min [facility] Comment on above: GFR estimated refere nce range: According to KDOQI guidelines, <60 ml/min/1.73m2 is sufficient to diagnose a patient with chronic kidney disease. Pharmacy Creatinine Clearance (Chem N/A [facility] Total Complement (CH50) >60 U/mL >41 [facility] Comment on above: Age Male Female [...] to determine out of range values.Performed at: [employer] [id number] Director: Collin Rodriguez PhD, Phone: [phone] Nucleated erythrocytes [Pres ence] in Blood by Automated countOrdered By: Paresh Tian on 07-16-2022 Nucleated RBC Auto Ql (Bld) 0.1 /100{WBC} 0-0.5 [facility] Platelet mean volume Auto (B ld) [Entitic vol]Ordered By: Paresh Tian on 07-16-2022 Platelet mean volume (Bld) [Entitic vol] 8.4 fL 6.3-10.7 [facility] Platelets Auto (Bld) [#/Vol] Ordered By: Paresh Tian on 07-16-2022 Platelets (Bld) [#/Vol] 242 10*3/uL 150-450 [facility] Protein Auto test strip (U) [Mass/Vol]Ordered By: Paresh Tian on 07-16-2022 Protein (U) [Mass/Vol] Negative Negative [facility] RBC Auto (Bld) [#/Vol]Ordere d By: Paresh Tian on 07-16-2022 RBC (Bld) [#/Vol] 4.50 10*6/uL 3.60-5.00 [facility] Serum homogeneous pattern an tinuclear antibody (ASTER) titerOrdered By: Paresh Tian on 07-16-2022 Homogenous nuclear Ab pattern (S) [Titer] N/A [facility] Serum nuclear antibody titer Ordered By: Paresh Tian on 07-16-2022 Nuclear Ab (S) [Titer] Positive . [facility] Comment on above: Negative <1:80 Borde rline 1:80 Positive >1:80 Serum or plasma complement C 3 measurement (mass/volume)Ordered By: Paresh Tian on 07-16-2022 Complement C3 [Mass/Vol] 197 mg/dL 82-167 [facility] Comment on above: Performed at: [facility] [employer] Director: Collin Rodriguez PhD, Phone: [phone] Serum or plasma complement C 4 measurement (mass/volume)Ordered By: Paresh Tian on 07-16-2022 Complement C4 [Mass/Vol] 42 mg/dL 12-38 [facility] Specific gravity Auto test s trip (U) [Rel density]Ordered By: Paresh Tian on 07-16-2022 Specific gravity (U) [Rel density] 1.018 1.001-1.03 0 [facility] Squamous epithelial cells de tection in urine sediment by light microscopyOrdered By: Paresh Tian on 07-16-2022 Epithelial cells.squamous LM Ql (Urine sed) 0-1 [HPF] 0-2 [facility] Urine bacteria detection by automated methodOrdered By: Paresh Tian on 07-16-2022 Bacteria Auto Ql (U) 4+ None Seen [facility] Urine clarity by refractomet ry automatedOrdered By: Paresh Tian on 07-16-2022 Clarity Refractometry automated (U) Clear Clear [facility] Urine culture routineOrdered By: Paresh Tian on 07-16-2022 Bacteria identified Cx Nom (U) Escherichia coli [facility] Urine glucose measurement by automated test strip (mass/volume)Ordered By: Paresh Tian on 07-16-2022 Glucose Auto test strip (U) [Mass/Vol] Normal mg/dL Normal [facility] Urine hemoglobin detection b y automated test stripOrdered By: Paresh Tian on 07-16-2022 Hemoglobin Auto test strip Ql (U) Negative Negative [facility] Urine leukocyte esterase det ection by automated test stripOrdered By: Paresh Tian on 07-16-2022 Leukocyte esterase Auto test strip Ql (U) 3+ Negative [facility] Urobilinogen Auto test strip (U) [Mass/Vol]Ordered By: Paresh Tain on 07-16-2022 Urobilinogen (U) [Mass/Vol] Normal mg/dL Normal [facility] WBC Auto (Bld) [#/Vol]Ordere d By: Paresh Tian on 07-16-2022 WBC (Bld) [#/Vol] 10.4 10*3/uL 3.8-11.6 [facility] pH Auto test strip (U)Ordere d By: Paresh Tian on 07-16-2022 pH (U) 6.5 [pH] 5.0-9.0 [facility] XR HIPS ZEINA [id number] WO PELVISon 05-15-2022 [...] DASHA KHAN Date: 2022-05-15 07:49 Normal [facility] Covid-19 PCR (CVDTBH)on SARS-CoV-2 (COVID-19) RNA AMBERLY+probe Ql (Unsp spec) Not detected Normal NOT DETECTED [facility] Comment on above: Result Comment: This test is not yet approved or cleared by the [place] FDA. When there are no FDA-approved or cleared tests available, and other criteria are met, FDA can make tests available under an emergency access mechanism called an Emergency Use Authorization (EUA). The EUA for this test is supported by the [place] of Health and Human Service's (HHS's) declaration [...] consistent with SARS-CoV-2. Performed By: #### [facility] #### [facility] [address] [place] [address] Dr. Narendra Jacobsen COVID-19 Positive/NegativeOr dered By: Baljinder Rausch on 01-31-2022 SARS-CoV-2 (COVID-19) N gene AMBERLY+probe Ql (Resp) Negative Negative [facility] Comment on above: Testing for SARS-CoV -2 by RT-PCR This test was developed and its performance characteristics determined by [employer] (BD) and validated at the [facility]. This test has not been FDA cleared [...] COVID-19 Positive/Negativeon 05-20-2020 COVID-19 Positive/Negative Negative Negative [facility] Comment on above: Testing for SARS-CoV -2 by RT-PCRThis test was developed and its performance characteristics determined by [employer] ([employer]) and validated at the [facility]. This test has not been FDA cleared [...] Otheron 05-20-2020 Coronavirus 2019 PCR Interp N/A [facility] Automated basophil %on 05-14 Basophils/100 WBC (Bld) 0.5 % F [facility] Automated basophil counton 1 07-15-2019 Basophils (Bld) [#/Vol] 0.0 10*3/uL 0.0-0.2 [facility] Automated blood lymphocyte c ount (number/volume)on 05-14-2020 Lymphocytes (Bld) [#/Vol] 2.8 10*3/uL 1.00-4.8 [facility] Automated blood lymphocyte c ount as percentage of total leukocyteson 05-14-2020 Lymphocytes/100 WBC (Bld) 35.0 % [facility] Automated blood monocyte cou nton 05-14-2020 Monocytes (Bld) [#/Vol] 0.6 10*3/uL 0.0-0.8 [facility] Automated blood platelet cou nt (count/volume)on 05-14-2020 Platelets (Bld) [#/Vol] 225 10*3/uL 150-450 [facility] Automated blood platelet jose n volume measurementon 05-14-2020 Platelet mean volume (Bld) [Entitic vol] 8.2 fL 6.3-10.7 [facility] Automated eosinophil %on Eosinophils/100 WBC (Bld) 1.5 % [facility] Automated eosinophil counton 05-14-2020 Eosinophils (Bld) [#/Vol] 0.1 10*3/uL 0.0-0.45 [facility] Automated erythrocyte distri bution width ratioon 05-14-2020 Erythrocyte distribution width (RBC) [Ratio] 12.3 % 11.9-15.3 [facility] Automated erythrocyte mean c orpuscular hemoglobin (mass per erythrocyte)on 05-14-2020 MCH (RBC) [Entitic mass] 35.2 pg 24.7-34.3 [facility] Automated erythrocyte mean c orpuscular hemoglobin concentration measurement (mass/volon 05-14-2020 MCHC (RBC) [Mass/Vol] 34.2 g/dL 32.0-35.0 [facility] Automated erythrocyte mean c orpuscular volumeon 05-14-2020 MCV (RBC) [Entitic vol] 102.9 fL 80-100 [facility] Automated monocyte %on 05-14 Monocytes/100 WBC (Bld) 7.0 % [facility] Automated neutrophil %on Neutrophils/100 WBC (Bld) 56.0 % [facility] Blood erythrocytes automated count (number/volume)on 05-14-2020 RBC (Bld) [#/Vol] 4.08 10*6/uL 3.60-5.[address] [facility] Blood hemoglobin measurement (mass/volume)on 05-14-2020 Hemoglobin (Bld) [Mass/Vol] 14.3 g/dL 11.8-15.4 [facility] Blood leukocytes automated c ount (number/volume)on 05-14-2020 WBC (Bld) [#/Vol] 7.9 10*3/uL 4.5-11.0 [facility] Blood neutrophil count by au tomated method (number/volume)on 05-14-2020 Neutrophils (Bld) [#/Vol] 4.4 10*3/uL 1.8-7.7 [facility] Estimated glomerular filtrat ion rate (GFR) non- Americanon 05-14-2020 GFR/1.73 sq M predicted among non-blacks MDRD (S/P/Bld) [Vol rate/Area] mL/min/{1.73_m2} [facility] Hematocrit [Volume Fraction] of Blood by Automated counton 05-14-2020 Hematocrit (Bld) [Volume fraction] 41.9 % 34.0-46.4 [facility] Otheron 05-14-2020 GFR/1.73 sq M.predicted MDRD (S/P/Bld) [Vol rate/Area] mL/min/{1.73_m2} [facility] Comment on above: GFR estimated refere nce range: According to KDOQI guidelines, <60 ml/min/1.73m2 is sufficient to diagnose a patient with chronic kidney disease. Nucleated RBC/100 WBC (Bld) [Ratio] 0.1 % 0-0.5 [facility] Pharmacy Creatinine Clearance (Chem N/A [facility] Serum or plasma calcium octavio urement (mass/volume)on 05-14-2020 Calcium [Mass/Vol] 10.1 mg/dL 8.2-10.2 [facility] Serum or plasma chloride jose surement (moles/volume)on 05-14-2020 Chloride [Moles/Vol] 101 mmol/L 95-114 [facility] Serum or plasma creatinine m easurement with calculation of estimated glomerular filtron 05-14-2020 Creatinine [Mass/Vol] 0.60 mg/dL 0.44-1.03 [facility] Serum or plasma glucose octavio urement (mass/volume)on 05-14-2020 Glucose [Mass/Vol] 94 mg/dL 70-100 [facility] Comment on above: ADA recommended refe rence rangeRandom Glucose Reference Range is dependent on time and content of last meal. Glucose of more than 200 mg/dL in a nonstressed, ambulatory subject supports the diagnosis of Diabetes Mellitus. Serum or plasma potassium me asurement (moles/volume)on 05-14-2020 Potassium [Moles/Vol] 4.3 mmol/L 3.5-5.1 [facility] Serum or plasma sodium measu rement (moles/volume)on 05-14-2020 Sodium [Moles/Vol] 140 mmol/L 136-146 [facility] Serum or plasma total carbon dioxide measurement (moles/volume)on 05-14-2020 CO2 [Moles/Vol] 27.2 mmol/L 22.0-30.0 [facility] Serum or plasma urea nitroge n measurement (mass/volume)on 05-14-2020 Urea nitrogen [Mass/Vol] 7 mg/dL 9- [facility] Vital Signs Date Time Vital Sign Value Performing Clinician Facility 08-17-2022 16:00-0400 Body height 160.02 cm Gina Blades Other [facility] Other 08-17-2022 16:00-0400 Body mass index (BMI) [Ratio] 40.56 kg/m2 Gina Blades Other [facility] Other 08-17-2022 16:00-0400 Body weight 103.87 kg Gina Blades Other [facility] Other 08-17-2022 16:00-0400 Diastolic blood pressure 82 mm[Hg] Gina Blades Other [facility] Other 08-17-2022 16:00-0400 Systolic blood pressure 126 mm[Hg] Gina Blades Other [facility] Other Encounters Encounter Date Encounter Type Care Provider Facility Start: 03-27-2024 End: 03-27-2024 ambulatory Aaron Mosqueda MD Facility: [facility] Start: 03-06-2024 End: 03-10-2024 Chart abstracting Joelle Sarmiento MD Work Phone: Neurology Start: 10-18-2023 End: 10-18-2023 ambulatory Aaron Mosqueda MD Facility: [facility] Start: 10-27-2022 ambulatory NARENDRANATH LAKSHMIPATHY . Facility:[facility] Start: 10-13-2022 End: 10-13-2022 ambulatory NARENDRANATH LAKSHMIPATHY . Facility:[facility] Start: 10-06-2022 End: 10-07-2022 ambulatory NARENDRANATH LAKSHMIPATHY . Facility:[facility] Start: 09-08-2022 End: 09-08-2022 ambulatory Gina Blades Other [facility] [employer] Other Start: 09-08-2022 Telephone encounter Gina Blades [facility] Start: 09-01-2022 End: 09-02-2022 ambulatory NARENDRANATH LAKSHMIPATHY . Facility: Start: 08-17-2022 End: 08-17-2022 Patient encounter procedure DO Roberto Roth Work Phone: [facility] [address] Work Phone: Start: 08-17-2022 End: 08-17-2022 ambulatory DO Roberto Roth Work Phone: [facility] Work Phone: Start: 08-17-2022 Office outpatient ne w 45 minutes Gina Blades [facility] Start: 07-16-2022 End: 07-17-2022 ambulatory DO Roberto Roth Work Phone: [facility] Work Phone: Start: 07-16-2022 End: 07-16-2022 Patient encounter procedure DO Roberto Roth Work Phone: [facility] [address] Work Phone: Start: 07-03-2022 End: 07-03-2022 ambulatory DO Roberto Roth Work Phone: [facility] Work Phone: Start: 07-03-2022 End: 07-03-2022 Patient encounter procedure DO Roberto Roth Work Phone: [facility] [address] [place] Work Phone: Start: 06-23-2022 End: 06-23-[address] HOOD RAUSCH . Facility:[facility] Start: 05-29-2022 End: 05-30-[address] HOOD RAUSCH . Facility:[facility] Start: 05-14-2022 End: 05-15-2022 ambulatory ADA SINGH . Facility:[facility] Start: 03-12-2022 End: 03-13-[address] HOOD RAUSCH . Facility:[facility] Start: 02-13-2022 Encounter for preprocedural laboratory examination DR HOOD RAUSCH . [facility] Start: 02-10-2022 End: 02-10-[address] HOOD RAUSCH . Facility:[facility] Start: 02-06-2022 End: 02-07-[address] HOOD RAUSCH . Facility:[facility] Start: 02-06-2022 End: 02-07-2022 Encounter for preprocedural laboratory examination DR HOOD RAUSCH . Facility:[facility] Start: 02-03-2022 End: 02-03-[address] HOOD RAUSCH . Facility:H1 Start: 01-31-2022 End: 01-31-2022 Patient encounter procedure DO Roberto Roth Work Phone: [facility] COVID Testing Start: 01-16-[address] HOOD RAUSCH . Faci lity:H1 Start: 01-07-2022 End: 01-08-[address] HOOD RAUSCH . Facility:[facility]1 Start: 05-20-2020 End: 05-20-2020 Patient encounter procedure Roberto Roth -Pre-Surgical Testing Start: 05-14-2020 End: 05-14-2020 Patient encounter procedure Roberto Roth -Pre-Surgical Testing Start: 04-26-2020 End: 04-26-2020 Patient encounter procedure Roberto Roth -XRay [facility] [place] Procedures Date Procedure Procedure Detail Performing Clinician [...] XR hi p RT min 2V(w/wo pelvis)* [facility] Start: 08-17-2022 XR Hip - right 2 Views [facility] Start: 07-16-2022 Bacteria identified in Urine by Culture [facility] Start: 07-16-2022 Hemolytic complement CH50 level [facility] Start: 07-16-2022 [facility] Complement C3 [Mass/volume] in Serum or Plasma [facility] Complement C4 [Mass/volume] in Serum or Plasma [facility] Homogenous nuclear A b pattern [Titer] in Serum [facility] Nuclear Ab [Titer] i n Serum [facility] Immunizations Immunization Date Immunization Notes Care Provider Fa cility 11-09-2020 COVID-19 mRNA-1273 (Moderna) DO Roberto Roth Work Phone: [facility] 10-12-2020 COVID-19 mRNA-1273 (Moderna) DO Roberto Roth Work Phone: [facility] 05-23-2020 influenza, injectabl e, quadrivalent, preservative free DO Roberto Roth Work Phone: [facility] Payers Date Payer Category Payer Unknown [id number] 2022 Self-pay [id number] 1970 Unknown [id number] 2.16.84 0.1.385117.3.579.2.593 1968 Unknown [id number] 2.16.84 0.1.957956.3.579.2.593 1968 Unknown [id number] 2.16.84 0.1.523554.3.579.2.593 1968 Unknown [id number] 2.16.84 0.1.499938.3.579.2.593 1968 Unknown [id number] 2.16.84 0.1.375282.3.579.2.593 1968 Unknown [id number] 2.16.84 0.1.635155.3.579.2.593 1968 Unknown [id number] 2.16.84 0.1.043244.3.579.2.593 1968 Unknown [id number] 2.16.84 0.1.682616.3.579.2.593 1968 Unknown [id number] 2.16.84 0.1.351359.3.579.2.593 1968 Unknown [id number] 2.16.84 0.1.357199.3.579.2.593 1968 Unknown [id number] 2.16.84 0.1.583420.3.579.2.593 1968 Unknown [id number] 2.16.84 0.1.473395.3.579.2.593 1968 Unknown [id number] 2.16.84 0.1.494151.3.579.2.593 1968 Unknown [id number] 2.16.84 0.1.749447.3.579.2.593 1968 Unknown [id number] 2.16.84 0.1.866764.3.579.2.593 1968 Unknown [id number] 2.16. 840.1.108402.3.579.2.196 1968 Unknown [id number] 2.16. 840.1.954003.3.579.2.196 1959 Unknown [id number] Unknown [id number] Unknown [id number] 2.16.8 40.1.270772.3.579.2.531 Social History Date Type Detail Facility Start: 05-14-2020 End: 06-23-2021 Tobacco smoking status [facility] Smoker (finding) [facility] Start: 1970 Sex Assigned At Female F [facility] Start: 06-23-1987 History of tobacco use [facility] [place] [facility] Work Phone: Tobacco smoking status [facility] Tobacco smoking consumption unknown [facility] Start: 1970 Sex assigned at Not on file C [facility] Medical Equipment Procedure Code Equipment Code Equipment Origin al Text Equipment Identifier Dates Fusion, spine, lumbar, XLIF CANCELLOUS COARSE 7.5CC FDA Start: 05-22-2020 Fusion, spine, lumbar, XLIF Bone-screw internal spinal fixation system, non-sterile ()[id number] FDA Start: 05-22-2020 Fusion, spine, lumbar, XLIF Bone-screw internal spinal fixation system, non-sterile ()[id number] FDA Start: 05-22-2020 Fusion, spine, lumbar, XLIF Bone-screw internal spinal fixation system, non-sterile ()[id number] FDA Start: 05-22-2020 Fusion, spine, lumbar, XLIF CANCELLOUS COARSE 7.5CC FDA Start: 05-22-2020 Fusion, spine, lumbar, XLIF Bone-screw internal spinal fixation system, non-sterile ()[id number] FDA Start: 05-22-2020 Fusion, spine, lumbar, XLIF Bone-screw internal spinal fixation system, non-sterile ()[id number] FDA Start: 05-22-2020 Fusion, spine, lumbar, XLIF Polymeric spinal fusion cage, non-sterile ()[id number] FDA Start: 05-22-2020 Fusion, spine, lumbar, XLIF Dura mater graft, bovine ()[id number] FDA Start: 05-22-2020 Fusion, spine, lumbar, XLIF MAS REDUCTION FIXATION ADD LEV FDA Start: 05-22-2020 Fusion, spine, lumbar, XLIF XLIF 1 LEVEL MAS REDUCTION FDA Start: 05-22-2020 Fusion, spine, lumbar, XLIF Spinal fusion graft kit [id number] FDA Start: 05-22-2020 Fusion, spine, lumbar, XLIF Bone matrix implant, human-derived ()[id number] FDA Start: 05-22-2020 Fusion, spine, lumbar, XLIF Metallic spinal fusion cage, non-sterile ()[id number] FDA Start: 05-22-2020 Fusion, spine, lumbar, XLIF Bone-screw internal spinal fixation system, non-sterile ()[id number] FDA Start: 05-22-2020 Fusion, spine, lumbar, XLIF [...] Type Note Facility 03-10-2024 Note HNO ID: [id number] Author: KENAN GODOY APRN.[employer] 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 Author Type: Nurse Practitioner Type: [...] gabapentin, meloxicam, voltaren cream, heat, mdp x1 [place] - 3x/dy Studies (Reports unless indicated) Mri lumbar report Lumbarization S1 S/p :L4-S1 fusion L5/S1 mod b/l FS S1/2 paraspinal muscle mod to severe atrophy Disposition: Please schedule with dr sarmiento if patient would like soon can schedule with myself. Please instruct patient to bring copy of imaging and injection history for review. [facility] 03-10-2024 History of Present illness Narrative Per [...] gabapentin, meloxicam, voltaren cream, heat, mdp x1 [place] - 3x/dy Studies (Reports unless indicated) Mri [...] Health Provider or Pain Management Provider at [facility]? No If answer is YES please [...] the facility where the MRI/CT/myelogram was completed: [place] [address] MRI/CT/myelogram viewable in Epic: No If not, please provide [phone] to fax in imaging reports for review. Also, please inform patient to hand carry imaging disc to appointment. XR (spine) within 12 months: Yes If YES, please ask for the name/address of the facility where the XR was completed: [place] [address] Dr. Freeman's patients: Have you had previous [...] therapy was completed [facility] [place] - [address] [id number] Have you tried any other kinds of non-surgical treatments in the last 12 months? (For example: NSAIDS, muscle relaxants, analgesics, oral steroids, Chiropractor, Acupuncture): gabapentin, meloxicam, voltaren cream, heat, mdp x1 4. Are you currently taking daily prescribed narcotic medications for your current symptoms (For example Oxycodone, Hydrocodone, Tramadol, Morphine, Other)? Yes [place] - 3x/dy 5. Have you had previous spinal surgery for this same symptoms? Yes If YES please ask for the name of facility/address of where the surgery was completed: [facility] cages Additional Comments [phone] documented in this encounter [facility] 03-06-2024 Note HNO ID: [id number] Author: ?, ?, ? Service: ? Author Type: ? Type: Progress Notes Filed: 03/10/2024 16:07 Note Text: Patient name: Kim Hill Are you being referred by a [facility] Spine Health Provider or Pain Management Provider at [facility]? No If answer is YES please [...] the facility where the MRI/CT/myelogram was completed: [facility] [address] [id number] MRI/CT/myelogram viewable in Epic: No If not, please provide [phone] to fax in imaging reports for review. Also, please inform patient to hand carry imaging disc to appointment. XR (spine) within 12 months: Yes If YES,? please ask for the name/address of the facility where the XR was completed: [place] [address] Dr. Freeman's patients: Have you had previous [...] therapy was completed [facility] [place] [address] Have you tried any other kinds of non-surgical treatments in the last 12 months? (For example: NSAIDS, muscle relaxants, analgesics, oral steroids, Chiropractor, Acupuncture): gabapentin, meloxicam, voltaren cream, heat, mdp x1 4. Are you currently taking daily prescribed narcotic medications for your current symptoms (For example Oxycodone, Hydrocodone, Tramadol, Morphine, Other)? Yes [place] - 3x/dy 5. Have you had previous spinal surgery for this same symptoms? Yes If YES? please ask for the name of facility/address of where the surgery was completed: [facility] - 2 cages Additional Comments [phone] [facility] 10-06-2022 Note CONSULTATION CONSULTATION DATE: 10/06/2022 TO: [...] pill b.i.d. and to continue to use [place] 7.5 mg t.i.d. We did reduce the use at her last visit from 90 pills a month to 80 pills to last one month's time. She appears to be tolerating this transition quite well. I have asked her to continue with gabapentin 600 mg t.i.d. Her JOYCE on today's visit is 28. She reports the [place] does improve her quality of life, level of functioning and sleep pattern, and she denies any side effects. As part of providing excellent, safe, comprehensive care, the following was completed at our patient's visit: 1. A medication reconciliation and review to ensure accurate knowledge of current/active medications, including asking our patients to inform us about any sotk-sji-ymfcyao medications or herbal remedies/nutritional supplements/alternative remedies. 2. [...] options with their primary care provider. [facility] 09-01-2022 Note CONSULTATION CONSULTATION DATE: [...] our patients to inform us about any didp-ngx-llwugyc medications or herbal remedies/nutritional supplements/alternative remedies. 2. [...] options with their primary care provider. [facility] 08-17-2022 Evaluation note Encounter Date Diagnosis Assessment Notes Jul, Other chronic pain (ICD-10 - G89.29) Jul, Low back pain, unspecified (ICD-10 - M54.50) [facility] Other 02-16-2023 NoteCONSULTATION CONSULTATION DATE: 07/16/2022 HISTORY OF PRESENT ILLNESS: This is a 51-year-old female who returns to the clinic status post bilateral SI joint injection completed on 06/23/2022. The patient received 80% relief for one day and on day two felt worse than her normal baseline pain. Today, she rates her pain 8/10. Medications include gabapentin 600 mg t.i.d., [place] 7.5/325 b.i.d. and Mobic 15 mg daily. [...] her medications; Mobic 15 mg daily and [place] 7.5/325 b.i.d. She will return to the clinic in six weeks' time, in which we will, in addition to her PCPs office, review the MRI and form a plan of care at that time. Patient is in agreement to this plan.[facility] [id number] Note CONSULTATION CONSULTATION DATE: 05/29/2022 HISTORY OF [...] down. Medications include gabapentin 600 mg t.i.d., [place] 7.5/325 b.i.d. and diclofenac 50 mg daily. [...] care and will be followed up thereafter.[facility] [id number] NoteCONSULTATION CONSULTATION DATE: 05/14/2022 HISTORY OF PRESENT [...] as well as gabapentin 600 mg t.i.d., [place] 7.5/325 t.i.d. At her last appointment, she [...] Refills for gabapentin 600 mg t.i.d. and [place] 7.5/325 b.i.d. will be sent to her pharmacy. Patient agrees to move forward with the procedure. She will followed up in the clinic thereafter.[facility] [id number] NotePAIN MANAGEMENT CONSULTATION CONSULTATION DATE: 05/14/2022 CHIEF [...] with a sacroiliac joint injection under fluoroscopy.[facility] [id number] NoteCONSULTATION CONSULTATION DATE: 03/12/2022 ADDENDUM DIAGNOSIS: Lumbar spondylosis, lumbar degenerative disc disease, chronic lower back pain and a history of a lumbar fusion.[facility] [id number] Note CONSULTATION CONSULTATION DATE: 03/12/2022 This is [...] Current medications include gabapentin 600 mg t.i.d., [place] 7.5/325 b.i.d., diclofenac cream and ibuprofen. She [...] with her vitamins as well as her [place]. The dose of frequency will not be changed. We will have the patient return to the clinic in two months' time for re-evaluation. The patient is inquiring about an increase of her [place], possibly during the winter months. There will be no changes today.[facility] [id number] NoteCONSULTATION CONSULTATION DATE: 01/07/2022 This is a [...] Current medications include gabapentin 600 mg b.i.d., [place] 7.5/325 b.i.d., diclofenac topical, multivitamin regimen and ibuprofen p.r.n. She has tried diclofenac in the past but was unable to tolerate it due to stomach issues but low-dose ibuprofen she can tolerate. She is needing [place] and gabapentin refill today. REVIEW OF SYSTEMS, [...] subsequently move to the left. Refill for [place] 7.5/325 b.i.d. and gabapentin 600 mg b.i.d. will be sent to the pharmacy. The patient is encouraged to increase magnesium in her vitamin regimen as well as menthol heat rub, seated stretches that were demonstrated and heat application. The patient agrees with the plan of care and would like to move forward and she will follow-up in the clinic post procedure.[facility] CenterEvaluation noteNo assessment information availableMer[facility] [place] [facility] Work Phone: Evaluation noteNo InformationNortPenn Presbyterian Medical Center [employer] Other History general Narrative - Reported* Type [...] above Hospitalization History 4 child births [facility] [employer] Other Advance Directives No Advanced Directives Records [...] Roth DO Primary Care Provider Active Aby Yu NP-C Attending Provider Active Team Status: Inactive Member Role Status Dates Roberto Roth DO Primary Care Provider Active Paresh Tian MD Attending Provider Active Team Status: Inactive Member Role Status Dates Roberto Roth DO Primary Care Provider Active Gina Guerrero MD Attending Provider Active Support Clerk Relationship Specialty Start Date End Date Aby Yu CNP [address] [place] [address] Referring Family Medicine 03/02/24 Goals (unrecognized section and content) Goals may be documented in a n alternate sectionGoals may be documented in an alternate sectionGoals may be documented in an alternate sectionGoals may be documented in an alternate sectionNo InformationNo Information INFORMATION SOURCE (unrecogn ized section and content) DATE CREATED AUTHOR 08/01/2022 [facility] dical Specialist DATE CREATED AUTHOR AUTHOR'S ORGANIZ ATION 11/06/2022 [facility] DATE CREATED AUTHOR AUTHOR'S ORGANIZ ATION 11/24/2023 [facility] DATE CREATED AUTHOR AUTHOR'S ORGANIZ ATION 03/13/2024 [facility] DATE CREATED AUTHOR AUTHOR'S ORGANIZ ATION 03/31/2024 [facility] REASON FOR VISIT (unrecogniz ed section [...] or prosecute any alcohol or drug abuse patient.[facility] FOR RECORDS PERTAINING TO PATIENTS WHO [...] BE BASED ON THE PRIMARY CLINICAL RECORDS. [employer] [facility]. provides no warranty or guarantee of the accuracy or completeness of information in this document.
--- NOTE | 2024-04-12 15:33 | PM.CN ---
Consult Note: HPI Data of Consult Patient: known to practice within the last 3 years Requesting Physician: Day Fleming NP Primary Care Provider: Non-Staff Physician, MD Consult Narrative Reason for consult: f/u Narrative: Kim Hill a pleasant 53 year old female presents to office for evaluation of chronic low back and right buttock pain, post lumbar fusion L4-5 L5-S1. Patient rating pain today 4/10 increasing to 8/10 with standing and activity. Patient finds mild to moderate benefit with norco 7.5-325mg TID PRN, gabapentin 600mg TID, baclofen 10mg BID, mobic 15mg daily without side effects. Pt has a hx of multilevel lumbar fusion 3 years ago. Recently completed lumbar MRI consistent with neuroforaminal stenosis. Pending NS consult 06/02/24 at [facility]. Recent right L3/4 L4/5 TFESI providing moderate relief, continues to experience moderate to severe bilateral hip and buttock pain. cc:: CC: Day Fleming NP Review of Systems ROS Status of ROS 10 or more systems reviewed and unremarkable except as noted in history and below Musculoskeletal Reports: back pain and extremity pain PFSH PFSH Medical History Osteoarthritis ?M19.90 - Unspecified osteoarthritis, unspecified site (ICD-10) Rheumatoid arthritis ?M06.9 - Rheumatoid arthritis, unspecified (ICD-10) Anxiety ?F41.9 - Anxiety disorder, unspecified (ICD-10) Acid reflux ?K21.9 - Gastro-esophageal reflux disease without esophagitis (ICD-10) Smoker ?F17.200 - Nicotine dependence, unspecified, uncomplicated (ICD-10) Asthma ?J45.909 - Unspecified asthma, uncomplicated (ICD-10) Heart murmur ?R01.1 - Cardiac murmur, unspecified (ICD-10) HTN (hypertension) ?I10 - Essential (primary) hypertension (ICD-10) Surgical History History of lymph node excision ?Z98.890 - Other specified postprocedural states (ICD-10) History of hysterectomy ?Z90.710 - Acquired absence of both cervix and uterus (ICD-10) History of lumbar fusion ?Z98.1 - Arthrodesis status (ICD-10) Meds Home Medications and Allergies Home Medications ?Medication ?Instructions ?Recorded ?Confirmed ?Type VITAMIN C DAILY 11/12/22 History baclofen 10 mg tablet 10 mg PO TID 11/12/22 03/27/24 History cholecalciferol (vit D3) 1,000 1 tab PO DAILY 11/12/22 03/27/24 History unit-vitamin K2 (MK4) 100 mcg tablet (K2 Plus D3) lisinopril 10 mg tablet 10 mg PO DAILY 11/12/22 03/27/24 History meloxicam 15 mg tablet 15 mg PO DAILY 11/12/22 03/27/24 History omeprazole 20 mg capsule,delayed 20 mg PO DAILY 11/12/22 03/27/24 History release acetylcysteine 600 mg capsule (NAC) 1,200 mg PO BID 10/04/23 03/27/24 History gabapentin 600 mg tablet 600 mg PO TID #90 tabs 03/13/24 03/27/24 Rx hydrocodone 7.5 mg-acetaminophen 1 tab PO TID PRN pain #70 tabs 03/16/24 03/27/24 Rx 325 mg tablet Allergies Allergy/AdvReac Type Severity Reaction Status Date / Time amoxicillin (From Augmentin) Allergy Unknown Rash Verified 03/27/24 08:02 clavulanic acid (From Allergy Unknown Rash Verified 03/27/24 08:02 Augmentin) Penicillins Allergy Unknown RASH Verified 03/27/24 08:02 Exam Constitutional Documenting provider has reviewed patient's vital signs: yes Common normals: no apparent distress, oriented x3, healthy appearing, alert and well nourished General appearance: cooperative [facility] Common normals: normocephalic, hearing grossly normal bilaterally and moist oral mucous membranes Head and scalp: normocephalic Eye Common normals: PERRL Pupil: PERRL Neck & C-Spine Common normals: full ROM General: normal visual inspection Cervical spine: pain with cervical ROM and paracervical muscle tenderness Other: intermittent radiculopathy to bilateral hands right greater than left Chest Common normals: inspection of chest normal Respiratory Common normals: normal respiratory effort, no retractions and no use of accessory muscles Back & Pelvis Lumbar spine/lower back: ROM limited and pain with ROM; straight leg raise negative right Sacroiliac joints: SI joint(s) abnormal (right>left positive beto, fadir, thigh thrust, gaenslens ) Other: decreased sensation in RLE following L3-4, L5-S1 dermatomal pattern weakness to BLE 4/5 LLE 4/5 in RLE Extremity Common normals: full ROM Other: nonpitting edema to RLE utilizing right ankle brace for instability and foot drop Neuro Common normals: oriented x3, CN's II-XII intact bilaterally, moves all extremities, no focal motor deficits, no sensory deficits noted and deep tendon reflexes 2+ bilaterally Sensorium/orientation: alert Gait (neuro): antalgic Motor exam: strength 5/5 throughout and no movement abnormalities noted Psych Common normals: mental status grossly normal, thought process normal, cooperative, affect normal, speech normal and activity/motor behavior normal Speech: normal speech Thought process: normal thought process Results Additional Findings Additional findings: If on a controlled substance or opioids, I have checked an [place]AR[place] report on this patient and there are no aberrancies noted in the prescribing history.??If on a controlled substance or opioid a drug screen was completed and reviewed within the last year, and if there has not been a drug screen completed we ordered one today to monitor higher risk, state monitored pain medication use. As part of providing excellent, safe, comprehensive care, the following was completed at our patient's visit: 1. A medication reconciliation and review to ensure accurate knowledge of current/active medications, including asking our patients to inform us about any evao-qxb-zdrugto medications or herbal remedies/nutritional supplements/alternative remedies. 2. A review to specifically ensure our patients have had annual screening for screening for depression, screening for tobacco use, and screening for unhealthy alcohol use. For concerning screenings had a discussion with the patient, provided patient education, and recommended follow-up with primary care provider when appropriate. If patient noted with a risk of falling, they received education on strength, gait, and balance training to prevent future risk of falling. Assessment and Plan Assessment and Plan (1) Sacroiliac joint dysfunction: (2) Lumbar stenosis with neurogenic claudication: (3) Failed back syndrome: (4) Lumbar radiculopathy: (5) Lumbar spondylosis: Plan bilateral SIJ injection under fluoroscopy, risks vs benefits reviewed refill/continue current medications. risks vs benefits reviewed continue HEP as tolerated continue f/u with NS f/u after each injections
== END 2024-04-12 15:14 | disposition home or self-care (01) ==
PROVIDERS: Visit Provider Nurse Practitioner
DX: M48.062 Spinal stenosis, lumbar region with neurogenic claudication (principal); M53.3 Sacrococcygeal disorders, not elsewhere classified; M47.26 Other spondylosis with radiculopathy, lumbar region; M96.1 Postlaminectomy syndrome, not elsewhere classified
CPT/HCPCS: G0463

== ENCOUNTER 2024-04-24 07:02 | Day surgery (SDC) | payer BC, SELFPAY ==
--- OUTSIDE RECORDS SUMMARY | 2024-04-24 07:08 | XMS_ITS | CCD ---
Author Organization [facility] Care Team Providers Care Apprenticeship Consultant Name Role Phone Roberto Roth Primary Care Provider [phone] Justice Cruz Attending Provider [phone] DO Roberto Roth Primary Care Provider MD Hood Rausch Attending Provider DO Roberto Roth Primary Care Provider [phone] CALVIN Yu Attending Provider [phone] MD Paresh Tian Attending Provider [phone] DO Roberto Roth Primary Care Provider CALVIN Yu Attending Provider MD Paresh Tian Attending Provider MD Gina Guerrero Attending Provider [phone] Gina Guerrero Unavailable SHE ., DR HOOD [...] DR HOOD Hernandez Admitting Unavailable SINGH ., AAD Consulting Unavailable IRA, DR ROBERTO Bhakta Primary Care Unavailable SHE ., DR HOOD Hernandez Attending Unavailable RAUSCH ., DR HOOD Hernandez Admitting Unavailable SINGH ., ADA Consulting Unavailable IRA, DR ROBERTO Bhakta Primary Care Unavailable LAKSHMIPATHY ., NARENDRANATH Attending Manjula vailable DR ROBERTO ROTH Primary Care Unavailable LAKSHMIPATHY ., NARJETHRO Admitting Manjula vailable RAUSCH ., DR HOOD eHrnandez Attending Unavailable RAUSCH ., DR HOOD Hernandez [...] Guerrero Admitting Unavailable Aby Yu CNP Unavailable Gilitaitis , Aaron Musa Attending Unavailable Panda BUSTILLO, Aaron Musa Attending Unavailable Unavailable Unavailable Unavailable Allergies Allergy Classification Reported Allergen(s) Allergy Type Date of Onset Reaction(s) Facility (6 sources) Amoxicillin; Translations: [amoxicillin] Drug Allergy 0 [facility] (7 sources) Penicillins; Translations: [Penicillins] Propensity to adverse reactions 4 Nausea [facility] (6 sources) clavulanic acid; Translations: [clavulanic acid] Propensity to adverse reactions 0 [facility] (3 sources) Amoxicillin / Clavulanate; Translations: [Augmentin] Drug Allergy [address] [facility] Repository (2 sources) Azithromycin Drug Allergy diarrhea [facility] [employer] Other (2 sources) Penicillin G Drug Allergy Unknown [facility] [employer] Other Medications Current Medications Medication Drug Class(es) Dates Sig (Normalized) Sig (Original) acetaminophen 500 mg oral tablet (4 sources) Start: 05-31-2020 take 500 mg by mouth every four hours Acetaminophen Active 500 MG PO Q4H 100 May 31, 2020 1:00am [id number] 200 actuat albuterol 0.09 mg/actuat metered dose [...] by mouth three times daily Hydrocodone-Acetami nophen ([place]) 5-325 mg Tablet Discontinued 1 TAB PO Three times daily March 18, 2019 12:00am May 23, 2020 4:59pm [place] Active azithromycin 250 mg oral tablet [...] sources) High risk drug monitoring status; Translations: [shelter (current) use of opiate analgesic] Episodic Other [...] by Justice Lucas on 07/31/2022 0915 Normal [facility] Automated erythrocytes count in urine sediment (number/area)Ordered By: Paresh Tian on 07-16-2022 RBC Auto (Urine sed) [#/Area] 1-2 [HPF] 0-4 [facility] Automated leukocytes count i n urine sediment (number/area)Ordered By: Paresh Tian on 07-16-2022 WBC Auto (Urine sed) [#/Area] 20-49 [HPF] 0-4 [facility] Basophils Auto (Bld) [#/Vol] Ordered By: Paresh Tian on 07-16-2022 Basophils (Bld) [#/Vol] 0.0 10*3/uL 0.0-0.2 [facility] Basophils/100 WBC Auto (Bld) Ordered By: Paresh Tian on 07-16-2022 Basophils/100 WBC (Bld) 0.4 % . F [facility] Bilirubin Test strip Ql (U)O rdered By: Paresh Tian on 07-16-2022 Bilirubin Ql (U) Negative Negative [facility] C reactive protein [Mass/vol ume] in Serum or PlasmaOrdered By: Paresh Tian on 07-16-2022 CRP [Mass/Vol] 0.8 mg/dL 0.0-1.0 [facility] Color Auto (U)Ordered By: Afia Tian on 07-16-2022 Color (U) Yellow Yellow [facility] Creatinine and Glomerular fi ltration rate.predicted panel (S/P/Bld)Ordered By: Paresh Tian on 07-16-2022 Creatinine [Mass/Vol] 0.74 mg/dL 0.44-1.03 [facility] Eosinophils Auto (Bld) [#/Vo l]Ordered By: Paresh Tian on 07-16-2022 Eosinophils (Bld) [#/Vol] 0.1 10*3/uL 0.0-0.45 [facility] Eosinophils/100 WBC Auto (Bl d)Ordered By: Paresh Tian on 07-16-2022 Eosinophils/100 WBC (Bld) 1.1 % . [facility] Erythrocyte distribution wid th Auto (RBC) [Ratio]Ordered By: Paresh Tian on 07-16-2022 Erythrocyte distribution width (RBC) [Ratio] 13.0 % 11.9-15.3 [facility] Erythrocyte sedimentation ra te by Photometric methodOrdered By: Paresh Tian on 07-16-2022 ESR Photometric method (Bld) [Velocity] 45 mm/hr 0-29 [facility] Estimated glomerular filtrat ion rate (GFR) non- AmericanOrdered By: Paresh Tian on 07-16-2022 GFR/1.73 sq M.predicted among non-blacks MDRD (S/P/Bld) [Vol rate/Area] > 60 mL/Min [facility] Hematocrit Auto (Bld) [Volum e fraction]Ordered By: Paresh Tian on 07-16-2022 Hematocrit (Bld) [Volume fraction] 45.3 % 34.0-46.4 [facility] Hemoglobin [Mass/volume] in BloodOrdered By: Paresh Tian on 07-16-2022 Hemoglobin (Bld) [Mass/Vol] 15.2 g/dL 11.8-15.4 [facility] Ketones Auto test strip (U) [Mass/Vol]Ordered By: Paresh Tian on 07-16-2022 Ketones (U) [Mass/Vol] Negative Negative [facility] - UrinalysisOrder ed By: Paresh Tian on 07-16-2022 Hyaline casts LM Ql (Urine sed) 0-8 [LPF] 0-8 [facility] Leukocytes [#/volume] correc scot for nucleated erythrocytes in Blood by Automated counOrdered By: Paresh Tian on 07-16-2022 WBC corrected for nucl RBC Auto (Bld) [#/Vol] 10.4 10*3/uL 3.8-11.6 [facility] Lymphocytes Auto (Bld) [#/Vo l]Ordered By: Paresh Tian on 07-16-2022 Lymphocytes (Bld) [#/Vol] 3.7 10*3/uL 1.00-4.8 [facility] Lymphocytes/100 WBC Auto (Bl d)Ordered By: Paresh Tian on 07-16-2022 Lymphocytes/100 WBC (Bld) 35.0 % . [facility] MCH Auto (RBC) [Entitic mass ]Ordered By: Paresh Tian on 07-16-2022 MCH (RBC) [Entitic mass] 33.8 pg 24.7-34.3 [facility] MCHC Auto (RBC) [Mass/Vol]Or dered By: Paresh Tian on 07-16-2022 MCHC (RBC) [Mass/Vol] 33.6 g/dL 32.0-35.0 Fir [facility] MCV Auto (RBC) [Entitic vol] Ordered By: Paresh Tian on 07-16-2022 MCV (RBC) [Entitic vol] 100.6 fL 80-100 F [facility] Mitotic spindle apparatus Ab [Titer] in Serum or Plasma by ImmunofluorescenceOrdered By: Paresh Tian on 07-16-2022 Mitotic spindle apparatus Ab IF [Titer] 1:160 . [facility] Comment on above: ICAP nomenclature: A C-25,26 Monocytes Auto (Bld) [#/Vol] Ordered By: Paresh Tian on 07-16-2022 Monocytes (Bld) [#/Vol] 0.7 10*3/uL 0.0-0.8 [facility] Monocytes/100 WBC Auto (Bld) Ordered By: Paresh Tian on 07-16-2022 Monocytes/100 WBC (Bld) 6.8 % . F [facility] Neutrophils Auto (Bld) [#/Vo l]Ordered By: Paresh Tian on 07-16-2022 Neutrophils (Bld) [#/Vol] 5.9 10*3/uL 1.8-7.7 [facility] Neutrophils/100 WBC Auto (Bl d)Ordered By: Paresh Tian on 07-16-2022 Neutrophils/100 WBC (Bld) 56.7 % . [facility] Nitrite Test strip Ql (U)Ord ered By: Paresh Tian on 07-16-2022 Nitrite Ql (U) Negative Negative [facility] No Panel InformationOrdered By: Paresh Tian on 07-16-2022 Anti-Nuclear Antibody Comment 2 See comment . [facility] Comment on above: For more information about Hep-2 cell patterns useDoctorCpatterns.org, the official website for the InternationalConsensus on Antinuclear Antibody (ASTER) Patterns (ICAP). --------A positive ASTER result may occur in healthy individuals (lowtiter) or be associated with a variety of diseases. Seeinterpretation chart which is not all inclusive:Pattern Antigen Detected Suggested Disease Association Homogeneous DNA(ds,ss), SLE - High titers Nucleosomes, Histones Drug-induced SLE Speckled Sm, PIGMENT WEIGHER, SCL-70, SLE,MCTD,PSS (diffuse form), SS-A/SS-B Sjogrens Nucleolar SCL-70, PM-1/SCL High titers Scleroderma, PM/DM Centromere Centromere PSS (limited form) w/Crest syndrome variable Nuclear Dot Sp100,[id number] Primary Biliary Cirrhosis Nuclear GP210, Primary Biliary CirrhosisMembrane kailyn A,B,C Performed at: [facility] [id number] Director: Collin Rodriguez PhD, Phone: [phone] Estimated GFR () > 60 mL/Min [facility] Comment on above: GFR estimated refere nce range: According to KDOQI guidelines, <60 ml/min/1.73m2 is sufficient to diagnose a patient with chronic kidney disease. Pharmacy Creatinine Clearance (Chem N/A [facility] Total Complement (CH50) >60 U/mL >41 F [facility] Comment on above: Age Male [...] to determine out of range values.Performed at: [facility] [id number] Director: Collin Rodriguez PhD, Phone: [phone] Nucleated erythrocytes [Pres ence] in Blood by Automated countOrdered By: Paresh Tian on 07-16-2022 Nucleated RBC Auto Ql (Bld) 0.1 /100{WBC} 0-0.5 [facility] Platelet mean volume Auto (B ld) [Entitic vol]Ordered By: Paresh Tian on 07-16-2022 Platelet mean volume (Bld) [Entitic vol] 8.4 fL 6.3-10.7 [facility] Platelets Auto (Bld) [#/Vol] Ordered By: Paresh Tian on 07-16-2022 Platelets (Bld) [#/Vol] 242 10*3/uL 150-450 [facility] Protein Auto test strip (U) [Mass/Vol]Ordered By: Paresh Tian on 07-16-2022 Protein (U) [Mass/Vol] Negative Negative [facility] RBC Auto (Bld) [#/Vol]Ordere d By: Paresh Tian on 07-16-2022 RBC (Bld) [#/Vol] 4.50 10*6/uL 3.60-5.00 [facility] Serum homogeneous pattern an tinuclear antibody (ASTER) titerOrdered By: Paresh Tian on 07-16-2022 Homogenous nuclear Ab pattern (S) [Titer] N/A [facility] Serum nuclear antibody titer Ordered By: Paresh Tian on 07-16-2022 Nuclear Ab (S) [Titer] Positive . [facility] Comment on above: Negative <1:80 Borde rline 1:80 Positive >1:80 Serum or plasma complement C 3 measurement (mass/volume)Ordered By: Paresh Tian on 07-16-2022 Complement C3 [Mass/Vol] 197 mg/dL 82-167 [facility] Comment on above: Performed at: [facility] [employer] Director: Collin Rodriguez PhD, Phone: [phone] Serum or plasma complement C 4 measurement (mass/volume)Ordered By: Paresh Tian on 07-16-2022 Complement C4 [Mass/Vol] 42 mg/dL 12-38 [facility] Specific gravity Auto test s trip (U) [Rel density]Ordered By: Paresh Tian on 07-16-2022 Specific gravity (U) [Rel density] 1.018 1.001-1.03 0 [facility] Squamous epithelial cells de tection in urine sediment by light microscopyOrdered By: Paresh Tian on 07-16-2022 Epithelial cells.squamous LM Ql (Urine sed) 0-1 [HPF] 0-2 [facility] Urine bacteria detection by automated methodOrdered By: Paresh Tian on 07-16-2022 Bacteria Auto Ql (U) 4+ None Seen [facility] Urine clarity by refractomet ry automatedOrdered By: Paresh Tian on 07-16-2022 Clarity Refractometry automated (U) Clear Clear [facility] Urine culture routineOrdered By: Paresh Tian on 07-16-2022 Bacteria identified Cx Nom (U) Escherichia coli [facility] Urine glucose measurement by automated test strip (mass/volume)Ordered By: Paresh Tian on 07-16-2022 Glucose Auto test strip (U) [Mass/Vol] Normal mg/dL Normal [facility] Urine hemoglobin detection b y automated test stripOrdered By: Paresh Tian on 07-16-2022 Hemoglobin Auto test strip Ql (U) Negative Negative [facility] Urine leukocyte esterase det ection by automated test stripOrdered By: Paresh Tian on 07-16-2022 Leukocyte esterase Auto test strip Ql (U) 3+ Negative [facility] Urobilinogen Auto test strip (U) [Mass/Vol]Ordered By: Paresh Tian on 07-16-2022 Urobilinogen (U) [Mass/Vol] Normal mg/dL Normal [facility] WBC Auto (Bld) [#/Vol]Ordere d By: Paresh Tian on 07-16-2022 WBC (Bld) [#/Vol] 10.4 10*3/uL 3.8-11.6 [facility] pH Auto test strip (U)Ordere d By: Paresh Tian on 07-16-2022 pH (U) 6.5 [pH] 5.0-9.0 [facility] XR HIPS ZEINA 3_4V WO [...] DASHA KHAN Date: 2022-05-15 07:[address] [facility] Covid-19 PCR (CVDTBH)on SARS-CoV-2 (COVID-19) RNA AMBERLY+probe Ql (Unsp spec) Not detected Normal NOT DETECTED [facility] Comment on above: Result Comment: This test is not yet approved or cleared by the [place] FDA. When there are no FDA-approved or cleared tests available, and other criteria are met, FDA can make tests available under an emergency access mechanism called an Emergency Use Authorization (EUA). The EUA for this test is supported by the [place] of Health and Human Service's (HHS's) declaration [...] SARS-CoV-2. Performed By: #### C [facility] #### [facility] [address] [place] [address] Dr. Narendra Jacobsen COVID-19 Positive/NegativeOr dered By: Baljinder Rausch on 01-31-2022 SARS-CoV-2 (COVID-19) N gene AMBERLY+probe Ql (Resp) Negative Negative [facility] Comment on above: Testing for SARS-CoV -2 by RT-PCR This test was developed and its performance characteristics determined by [employer] ([employer]) and validated at the [facility]. This test has not been [...] COVID-19 Positive/Negativeon 05-20-2020 COVID-19 Positive/Negative Negative Negative [facility] Comment on above: Testing for SARS-CoV -2 by RT-PCRThis test was developed and its performance characteristics determined by [employer] ([employer]) and validated at the [facility]. This test has not been [...] Otheron 05-20-2020 Coronavirus 2019 PCR Interp N/A [facility] Automated basophil %on 05-14 Basophils/100 WBC (Bld) 0.5 % F [facility] Automated basophil counton 1 07-15-2019 Basophils (Bld) [#/Vol] 0.0 10*3/uL 0.0-0.2 [facility] Automated blood lymphocyte c ount (number/volume)on 05-14-2020 Lymphocytes (Bld) [#/Vol] 2.8 10*3/uL 1.00-4.8 [facility] Automated blood lymphocyte c ount as percentage of total leukocyteson 05-14-2020 Lymphocytes/100 WBC (Bld) 35.0 % [facility] Automated blood monocyte cou nton 05-14-2020 Monocytes (Bld) [#/Vol] 0.6 10*3/uL 0.0-0.8 [facility] Automated blood platelet cou nt (count/volume)on 05-14-2020 Platelets (Bld) [#/Vol] 225 10*3/uL 150-450 [facility] Automated blood platelet jose n volume measurementon 05-14-2020 Platelet mean volume (Bld) [Entitic vol] 8.2 fL 6.3-10.7 [facility] Automated eosinophil %on Eosinophils/100 WBC (Bld) 1.5 % [facility] Automated eosinophil counton 05-14-2020 Eosinophils (Bld) [#/Vol] 0.1 10*3/uL 0.0-0.45 [facility] Automated erythrocyte distri bution width ratioon 05-14-2020 Erythrocyte distribution width (RBC) [Ratio] 12.3 % 11.9-15.3 [facility] Automated erythrocyte mean c orpuscular hemoglobin (mass per erythrocyte)on 05-14-2020 MCH (RBC) [Entitic mass] 35.2 pg 24.7-34.3 [facility] Automated erythrocyte mean c orpuscular hemoglobin concentration measurement (mass/volon 05-14-2020 MCHC (RBC) [Mass/Vol] 34.2 g/dL 32.0-35.0 Fir [facility] Automated erythrocyte mean c orpuscular volumeon 05-14-2020 MCV (RBC) [Entitic vol] 102.9 fL 80-100 F [facility] Automated monocyte %on 05-14 Monocytes/100 WBC (Bld) 7.0 % F [facility] Automated neutrophil %on Neutrophils/100 WBC (Bld) 56.0 % [facility] Blood erythrocytes automated count (number/volume)on 05-14-2020 RBC (Bld) [#/Vol] 4.08 10*6/uL 3.60-5.00 [facility] Blood hemoglobin measurement (mass/volume)on 05-14-2020 Hemoglobin (Bld) [Mass/Vol] 14.3 g/dL 11.8-15.4 [facility] Blood leukocytes automated c ount (number/volume)on 05-14-2020 WBC (Bld) [#/Vol] 7.9 10*3/uL 4.5-11.0 [facility] Blood neutrophil count by au tomated method (number/volume)on 05-14-2020 Neutrophils (Bld) [#/Vol] 4.4 10*3/uL 1.8-7.7 [facility] Estimated glomerular filtrat ion rate (GFR) non- Americanon 05-14-2020 GFR/1.73 sq M predicted among non-blacks MDRD (S/P/Bld) [Vol rate/Area] mL/min/{1.73_m2} [facility] Hematocrit [Volume Fraction] of Blood by Automated counton 05-14-2020 Hematocrit (Bld) [Volume fraction] 41.9 % 34.0-46.4 [facility] Otheron 05-14-2020 GFR/1.73 sq M.predicted MDRD (S/P/Bld) [Vol rate/Area] mL/min/{1.73_m2} [facility] Comment on above: GFR estimated refere nce range: According to KDOQI guidelines, <60 ml/min/1.73m2 is sufficient to diagnose a patient with chronic kidney disease. Nucleated RBC/100 WBC (Bld) [Ratio] 0.1 % 0-0.5 [facility] Pharmacy Creatinine Clearance (Chem N/A [facility] Serum or plasma calcium octavio urement (mass/volume)on 05-14-2020 Calcium [Mass/Vol] 10.1 mg/dL 8.2-10.2 [facility] Serum or plasma chloride jose surement (moles/volume)on 05-14-2020 Chloride [Moles/Vol] 101 mmol/L 95-[address] [facility] Serum or plasma creatinine m easurement with calculation of estimated glomerular filtron 05-14-2020 Creatinine [Mass/Vol] 0.60 mg/dL 0.44-1.03 [facility] Serum or plasma glucose octavio urement (mass/volume)on 05-14-2020 Glucose [Mass/Vol] 94 mg/dL 70-100 [facility] Comment on above: ADA recommended refe rence rangeRandom Glucose Reference Range is dependent on time and content of last meal. Glucose of more than 200 mg/dL in a nonstressed, ambulatory subject supports the diagnosis of Diabetes Mellitus. Serum or plasma potassium me asurement (moles/volume)on 05-14-2020 Potassium [Moles/Vol] 4.3 mmol/L 3.5-5.1 [facility] Serum or plasma sodium measu rement (moles/volume)on 05-14-2020 Sodium [Moles/Vol] 140 mmol/L 136-146 [facility] Serum or plasma total carbon dioxide measurement (moles/volume)on 05-14-2020 CO2 [Moles/Vol] 27.2 mmol/L 22.0-30.0 [facility] Serum or plasma urea nitroge n measurement (mass/volume)on 05-14-2020 Urea nitrogen [Mass/Vol] 7 mg/dL 9- [facility] Vital Signs Date Time Vital Sign Value Performing Clinician Facility 08-17-2022 16:00-0400 Body height 160.02 cm Gina Blades Other [facility] Other 08-17-2022 16:00-0400 Body mass index (BMI) [Ratio] 40.56 kg/m2 Gina Blades Other [facility] Other 08-17-2022 16:00-0400 Body weight 103.87 kg Gina Blades Other [facility] Other 08-17-2022 16:00-0400 Diastolic blood pressure 82 mm[Hg] Gina Blades Other [facility] Other 08-17-2022 16:00-0400 Systolic blood pressure 126 mm[Hg] Gina Blades Other [facility] Other Encounters Encounter Date Encounter Type Care [...] 09-08-2022 End: 09-08-2022 ambulatory Gina Blades Other [facility] [employer] Other Start: 09-08-2022 Telephone encounter Gina Blades [facility] Neurosurgery Start: 09-01-2022 End: 09-02-2022 ambulatory NARENDRANATH LAKSHMIPATHY . Facility: Start: 08-17-2022 End: 08-17-2022 Patient encounter procedure DO Roberto Roth Work Phone: [facility] [address] [place] Work Phone: Start: 08-17-2022 End: 08-17-2022 ambulatory DO Roberto Roth Work Phone: [facility] Work Phone: Start: 08-17-2022 Office outpatient ne w 45 minutes Gina Blades [facility] Start: 07-16-2022 End: 07-17-2022 ambulatory DO Roberto Roth Work Phone: [facility] Work Phone: Start: 07-16-2022 End: 07-16-2022 Patient encounter procedure DO Roberto Roth Work Phone: [facility]-Lab [address] Work Phone: Start: 07-03-2022 End: 07-03-2022 ambulatory DO Roberto Roth Work Phone: [facility] Work Phone: Start: 07-03-2022 End: 07-03-2022 Patient encounter procedure DO Roberto Roth Work Phone: [facility] [place] Work Phone: Start: 06-23-2022 End: 06-23-[address] HOOD RAUSCH . Facility:[facility] Start: 05-29-2022 End: 05-30-[address] HOOD RAUSCH . Facility:[facility] Start: 05-14-2022 End: 05-15-2022 ambulatory ADA SINGH . Facility:[facility] Start: 03-12-2022 End: 03-13-[address] HOOD RAUSCH . Facility:[facility] Start: 02-13-2022 Encounter for preprocedural laboratory examination DR HOOD RAUSCH . [facility] Start: 02-10-2022 End: 02-10-[address] HOOD RAUSCH . Facility:[facility] Start: 02-06-2022 End: 02-07-[address] HOOD RAUSCH . Facility:[facility] Start: 02-06-2022 End: 02-07-2022 Encounter for preprocedural laboratory examination DR HOOD RAUSCH . Facility:[facility] Start: 02-03-2022 End: 02-03-[address] HOOD RAUSCH . Facility:[facility] Start: 01-31-2022 End: 01-31-2022 Patient encounter procedure DO Roberto Roth Work Phone: [facility] COVID Testing Start: 01-16-[address] HOOD RAUSCH . Faci lity:[facility] Start: 01-07-2022 End: 01-08-[address] HOOD RAUSCH . Facility:[facility] Start: 05-20-2020 End: 05-20-2020 Patient encounter procedure Roberto Roth -Pre-Surgical Testing Start: 05-14-2020 End: 05-14-2020 Patient encounter procedure Roberto Roth -Pre-Surgical Testing Start: 04-26-2020 End: 04-26-2020 Patient encounter procedure Roberto Roth -[facility] [place] Procedures Date Procedure Procedure Detail Performing Clinician [...] p RT min 2V(w/wo pelvis)* [facility] Start: 08-17-2022 XR Hip - right 2 Views [facility] Start: 07-16-2022 Bacteria identified in Urine by Culture [facility] Start: 07-16-2022 Hemolytic complement CH50 level [facility] Start: 07-16-2022 [facility] Complement C3 [Mass/volume] in Serum or Plasma [facility] Complement C4 [Mass/volume] in Serum or Plasma [facility] Homogenous nuclear A b pattern [Titer] in Serum [facility] Nuclear Ab [Titer] i n Serum [facility] Immunizations Immunization Date Immunization Notes Care Provider Fa cility 11-09-2020 COVID-19 mRNA-1273 (Moderna) DO Roberto Roth Work Phone: [facility] 10-12-2020 COVID-19 mRNA-1273 (Moderna) DO Roberto Roth Work Phone: [facility] 05-23-2020 influenza, injectabl e, quadrivalent, preservative free DO Roberto Roth Work Phone: [facility] Payers Date Payer Category Payer Unknown [id number] 2022 Self-pay [id number] 1970 Unknown [id number] 1968 Unknown [id number] 1968 Unknown [id number] 2.16.84 0.1.964120.3.579.2.593 1970 Unknown [id number] 2.16.84 0.1.221857.3.579.2.593 1970 Unknown [id number] 2.16.84 0.1.991489.3.579.2.593 1968 Unknown [id number] 2.16.84 0.1.600930.3.579.2.593 1968 Unknown [id number] 2.16.84 0.1.271427.3.579.2.593 1968 Unknown [id number] 2.16.84 0.1.381780.3.579.2.593 1968 Unknown [id number] 2.16.84 0.1.250719.3.579.2.593 1968 Unknown [id number] 2.16.84 0.1.572089.3.579.2.593 1968 Unknown [id number] 2.16.84 0.1.149259.3.579.2.593 1968 Unknown [id number] 2.16.84 0.1.136175.3.579.2.593 1968 Unknown [id number] 2.16.84 0.1.306898.3.579.2.593 1968 Unknown [id number] 2.16.84 0.1.402577.3.579.2.593 1968 Unknown [id number] 2.16.84 0.1.750295.3.579.2.593 1968 Unknown [id number] 2.16. 840.1.698314.3.579.2.196 1968 Unknown [id number] 2.16. 840.1.847380.3.579.2.196 1959 Unknown [id number] Unknown [id number] Unknown [id number] 2.16.8 40.1.641171.3.579.2.531 Social History Date Type Detail Facility Start: 05-14-2020 End: 06-23-2021 Tobacco smoking status [facility] Smoker (finding) [facility] Start: 1970 Sex Assigned At Female F [facility] Start: 06-23-1987 History of tobacco use [facility] Work Phone: Tobacco smoking status [facility] Tobacco smoking consumption unknown [facility] Start: 1970 Sex assigned at Not on file [facility] Medical Equipment Procedure Code Equipment Code Equipment Origin al Text Equipment Identifier Dates Fusion, spine, lumbar, XLIF CANCELLOUS COARSE 7.5CC FDA Start: 05-22-2020 Fusion, spine, lumbar, XLIF Bone-screw internal spinal fixation system, non-sterile ()[id number] FDA Start: 05-22-2020 Fusion, spine, lumbar, XLIF Bone-screw internal spinal fixation system, non-sterile ()[id number] FDA Start: 05-22-2020 Fusion, spine, lumbar, XLIF Bone-screw internal spinal fixation system, non-sterile ()[id number] FDA Start: 05-22-2020 Fusion, spine, lumbar, XLIF CANCELLOUS COARSE 7.5CC FDA Start: 05-22-2020 Fusion, spine, lumbar, XLIF Bone-screw internal spinal fixation system, non-sterile ()[id number] FDA Start: 05-22-2020 Fusion, spine, lumbar, XLIF Bone-screw internal spinal fixation system, non-sterile ()[id number] FDA Start: 05-22-2020 Fusion, spine, lumbar, XLIF Polymeric spinal fusion cage, non-sterile ()[id number] FDA Start: 05-22-2020 Fusion, spine, lumbar, XLIF Dura mater graft, bovine ()[id number] FDA Start: 05-22-2020 Fusion, spine, lumbar, XLIF MAS REDUCTION FIXATION ADD LEV FDA Start: 05-22-2020 Fusion, spine, lumbar, XLIF XLIF 1 LEVEL MAS REDUCTION FDA Start: 05-22-2020 Fusion, spine, lumbar, XLIF Spinal fusion graft kit [id number] FDA Start: 05-22-2020 Fusion, spine, lumbar, XLIF Bone matrix implant, human-derived ()[id number] FDA Start: 05-22-2020 Fusion, spine, lumbar, XLIF Metallic spinal fusion cage, non-sterile ()[id number] FDA Start: 05-22-2020 Fusion, spine, lumbar, XLIF Bone-screw internal spinal fixation system, non-sterile ()[id number] FDA Start: 05-22-2020 Fusion, spine, lumbar, XLIF [...] Type Note Facility 03-10-2024 Note HNO ID: [id number] Author: KENAN GODOY APRN.CIPHER EXPERT Service: ? Author Type: Nurse Practitioner Type: [...] gabapentin, meloxicam, voltaren cream, heat, mdp x1 [place] - 3x/dy Studies (Reports unless indicated) Mri lumbar report Lumbarization S1 S/p :L4-S1 fusion L5/S1 mod b/l FS S1/2 paraspinal muscle mod to severe atrophy Disposition: Please schedule with dr sarmiento if patient would like soon can schedule with myself. Please instruct patient to bring copy of imaging and injection history for review. [facility] 03-10-2024 History of Present illness Narrative [...] gabapentin, meloxicam, voltaren cream, heat, mdp x1 [place] - 3x/dy Studies (Reports unless indicated) [...] Health Provider or Pain Management Provider at THE MEDICAL CENTER? No If answer is YES please schedule [...] the facility where the MRI/CT/myelogram was completed: [place] [address] MRI/CT/myelogram viewable in Epic: No If not, please provide [phone] to fax in imaging reports for review. Also, please inform patient to hand carry imaging disc to appointment. XR (spine) within 12 months: Yes If YES, please ask for the name/address of the facility where the XR was completed: [place] [address] Dr. Freeman's patients: Have you had previous [...] therapy was completed [facility] [place] - [address] [id number] Have you tried any other kinds of non-surgical treatments in the last 12 months? (For example: NSAIDS, muscle relaxants, analgesics, oral steroids, Chiropractor, Acupuncture): gabapentin, meloxicam, voltaren cream, heat, mdp x1 4. Are you currently taking daily prescribed narcotic medications for your current symptoms (For example Oxycodone, Hydrocodone, Tramadol, Morphine, Other)? Yes [place] - 3x/dy 5. Have you had previous spinal surgery for this same symptoms? Yes If YES please ask for the name of facility/address of where the surgery was completed: [facility] Additional Comments [phone] documented in this encounter [facility] 03-06-2024 Note HNO ID: [id number] Author: ?, ?, ? Service: ? Author Type: ? Type: Progress Notes Filed: 03/10/2024 16:07 Note Text: Patient name: Kim Hill Are you being referred by a [facility] Spine Health Provider or Pain Management Provider at THE [facility]? No If answer is YES please schedule [...] the facility where the MRI/CT/myelogram was completed: [facility] [address] [id number] MRI/CT/myelogram viewable in Epic: No If not, please provide [phone] to fax in imaging reports for review. Also, please inform patient to hand carry imaging disc to appointment. XR (spine) within 12 months: Yes If YES,? please ask for the name/address of the facility where the XR was completed: [place] [address] Dr. Freeman's patients: Have you had previous [...] therapy was completed [facility] [place] [address] Have you tried any other kinds of non-surgical treatments in the last 12 months? (For example: NSAIDS, muscle relaxants, analgesics, oral steroids, Chiropractor, Acupuncture): gabapentin, meloxicam, voltaren cream, heat, mdp x1 4. Are you currently taking daily prescribed narcotic medications for your current symptoms (For example Oxycodone, Hydrocodone, Tramadol, Morphine, Other)? Yes [place] - 3x/dy 5. Have you had previous spinal surgery for this same symptoms? Yes If YES? please ask for the name of facility/address of where the surgery was completed: [facility] Additional Comments [phone] [facility] 10-06-2022 Note CONSULTATION CONSULTATION DATE: 10/06/2022 [...] pill b.i.d. and to continue to use [place] 7.5 mg t.i.d. We did reduce the use at her last visit from 90 pills a month to 80 pills to last one month's time. She appears to be tolerating this transition quite well. I have asked her to continue with gabapentin 600 mg t.i.d. Her JOYCE on today's visit is 28. She reports the [place] does improve her quality of life, level of functioning and sleep pattern, and she denies any side effects. As part of providing excellent, safe, comprehensive care, the following was completed at our patient's visit: 1. A medication reconciliation and review to ensure accurate knowledge of current/active medications, including asking our patients to inform us about any egzh-iyj-ucsttlk medications or herbal remedies/nutritional supplements/alternative remedies. 2. [...] options with their primary care provider. [facility] 09-01-2022 Note CONSULTATION CONSULTATION DATE: 09/01/2022 [...] our patients to inform us about any pttf-bji-tvnmiiu medications or herbal remedies/nutritional supplements/alternative remedies. 2. [...] options with their primary care provider. [facility] 08-17-2022 Evaluation note Encounter Date Diagnosis Assessment Notes Jul, Other chronic pain (ICD-10 - G89.29) Jul, Low back pain, unspecified (ICD-10 - M54.50) [facility] Other 02-16-2023 NoteCONSULTATION CONSULTATION DATE: 07/16/2022 HISTORY OF PRESENT ILLNESS: This is a 51-year-old female who returns to the clinic status post bilateral SI joint injection completed on 06/23/2022. The patient received 80% relief for one day and on day two felt worse than her normal baseline pain. Today, she rates her pain 8/10. Medications include gabapentin 600 mg t.i.d., [place] 7.5/325 b.i.d. and Mobic 15 mg [...] her medications; Mobic 15 mg daily and [place] 7.5/325 b.i.d. She will return to the clinic in six weeks' time, in which we will, in addition to her PCPs office, review the MRI and form a plan of care at that time. Patient is in agreement to this plan.[facility] [id number] Note CONSULTATION CONSULTATION DATE: 05/29/2022 HISTORY OF [...] down. Medications include gabapentin 600 mg t.i.d., [place] 7.5/325 b.i.d. and diclofenac 50 mg [...] care and will be followed up thereafter.[facility] [id number] NoteCONSULTATION CONSULTATION DATE: 05/14/2022 HISTORY OF PRESENT [...] as well as gabapentin 600 mg t.i.d., [place] 7.5/325 t.i.d. At her last appointment, [...] pain along compression of the lumbar facets. Cyndey's point non-tender. Negative FABERs and compression test. [...] Refills for gabapentin 600 mg t.i.d. and [place] 7.5/325 b.i.d. will be sent to her pharmacy. Patient agrees to move forward with the procedure. She will followed up in the clinic thereafter.[facility] [id number] NotePAIN MANAGEMENT CONSULTATION CONSULTATION DATE: 05/14/2022 CHIEF [...] with a sacroiliac joint injection under fluoroscopy.[facility] [id number] NoteCONSULTATION CONSULTATION DATE: 03/12/2022 ADDENDUM DIAGNOSIS: Lumbar spondylosis, lumbar degenerative disc disease, chronic lower back pain and a history of a lumbar fusion.[facility] [id number] Note CONSULTATION CONSULTATION DATE: 03/12/2022 This is [...] Current medications include gabapentin 600 mg t.i.d., [place] 7.5/325 b.i.d., diclofenac cream and ibuprofen. [...] with her vitamins as well as her [place]. The dose of frequency will not be changed. We will have the patient return to the clinic in two months' time for re-evaluation. The patient is inquiring about an increase of her [place], possibly during the winter months. There will be no changes today.[facility] [id number] NoteCONSULTATION CONSULTATION DATE: 01/07/2022 This is a [...] Current medications include gabapentin 600 mg b.i.d., [place] 7.5/325 b.i.d., diclofenac topical, multivitamin regimen and ibuprofen p.r.n. She has tried diclofenac in the past but was unable to tolerate it due to stomach issues but low-dose ibuprofen she can tolerate. She is needing [place] and gabapentin refill today. REVIEW OF [...] subsequently move to the left. Refill for [place] 7.5/325 b.i.d. and gabapentin 600 mg b.i.d. will be sent to the pharmacy. The patient is encouraged to increase magnesium in her vitamin regimen as well as menthol heat rub, seated stretches that were demonstrated and heat application. The patient agrees with the plan of care and would like to move forward and she will follow-up in the clinic post procedure.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 Specialty Start Date End Date Aby Yu CNP [address] [place] [address] Referring Family Medicine 03/02/24 Goals (unrecognized section and content) Goals may be documented in a n alternate sectionGoals may be documented in an alternate sectionGoals may be documented in an alternate sectionGoals may be documented in an alternate sectionNo InformationNo Information INFORMATION SOURCE (unrecogn ized section and content) DATE CREATED AUTHOR 08/01/2022 [facility] dical Specialist DATE CREATED AUTHOR AUTHOR'S ORGANIZ ATION 11/06/2022 [facility] DATE CREATED AUTHOR AUTHOR'S ORGANIZ ATION 11/24/2023 [facility] DATE CREATED AUTHOR AUTHOR'S ORGANIZ ATION 03/13/2024 [facility] DATE CREATED AUTHOR AUTHOR'S ORGANIZ ATION 03/31/2024 [facility] REASON FOR VISIT (unrecogniz ed section [...] or prosecute any alcohol or drug abuse patient.[facility] FOR RECORDS PERTAINING TO PATIENTS WHO [...] BE BASED ON THE PRIMARY CLINICAL RECORDS. [facility] provides no warranty or guarantee of the accuracy or completeness of information in this document.
[2024-04-24 07:13] VITALS: BP 153/94; PULSE 107; TEMP 37.5; O2SAT 97
[2024-04-24 07:54] VITALS: BP 186/85; PULSE 104; O2SAT 94
[2024-04-24 07:55] VITALS: BP 183/86; PULSE 100; O2SAT 95
[2024-04-24] MEDS: BUPIVACAINE HCL 0.25% PF 25 MG/10 ML VIAL 4 ML INJ (07:58)
[2024-04-24] MEDS: IOHEXOL 240 MG/ML - 10 ML VIAL 12 MG INJ (07:58)
--- NOTE | 2024-04-24 07:58 | W.PM.PROCNOT ---
Date of procedure: 04/24/24 Pre-op diagnosis: Pain due to sacroiliitis, bilateral Post-op diagnosis: same as pre-op Procedure: Procedure: Bilateral sacroiliitis Medications: Bupivacaine 0.25% 3cc, kenalog 40mg x2 After informed consent was obtained, the patient was brought to the medical procedure unit and placed in the prone position, when a timeout was completed verifying correct patient, procedure, site, positioning, implant, and/or special equipment.? The skin overlying the area was prepped and draped in standard sterile fashion using alcohol.? A 25-gauge needle was inserted towards the left sacroiliac joint under direct fluoroscopic imaging.? Needle tip was advanced until the joint was encountered.? We instilled a total of 2 mL of solution.? The same procedure was then completed on the right side.? Postoperatively needles were removed.? The patient tolerated the procedure well without complication.? The patient reported reduction in pain symptoms postoperatively. Anesthesia: Local Surgeon: Aaron Mosqueda Pathology: none sent Condition: stable Disposition: no change
[2024-04-24] MEDS: LIDOCAINE HCL 2% 400 MG/20 ML MDV INJ (07:59)
[2024-04-24] MEDS: TRIAMCINOLONE ACETONIDE 40 MG/ML VIAL 80 MG INJ (07:59)
== END 2024-04-24 08:01 | disposition home or self-care (01) ==
LOC: SURGOUT 07:02
PROVIDERS: Visit Provider Anesthesiology
DX: M46.1 Sacroiliitis, not elsewhere classified (principal)
CPT/HCPCS: 27096; J0665; J3301; Q9966

== ENCOUNTER 2024-04-27 00:35 | Observation (INO) | payer BC, SELFPAY ==
[2024-04-27] VITALS (19 sets, daily range): BP systolic 146–160; BP diastolic 86–97; PULSE 82–136; TEMP 36.5–37; O2SAT 94–98; BMI 39.0; BMI 39.2
--- NOTE | 2024-04-27 00:49 | PC.NURSE ---
Pt to be transported per [facility] EMS ALS unit. [facility] dispatch state crew will be here around shift change.
--- NOTE | 2024-04-27 00:59 | XR_ITS ---
The [address] [address] Patient Name: AKASH LIU MRN: [id number] date: 1970 Sex: F Assigned Patient Location: ER Current Patient Location: ED.MAIN Accession/Order Number: [id number] Exam Date: 04/27/2024 01:05 Report Date: 04/27/2024 02:31 At the request of: DAREN MARKER Procedure: XR chest 2V EXAM: XR chest 2V HISTORY: fever, cough and dyspnea for 3 days. History of asthma. COMPARISON: None. TECHNIQUE: Frontal and lateral chest x-rays. FINDINGS: The heart is mildly enlarged. Pulmonary vascularity is normal. There is central bronchial wall thickening with increased bronchovascular markings in both lungs. Patchy right upper lobe infiltrate consistent with pneumonia with milder right middle lobe infiltrate on the lateral view. Pulmonary hyperinflation is noted. There is no pleural fluid or pneumothorax. XR/XR chest 2V IMPRESSION: Right lung pneumonia with diffuse increased bronchovascular markings likely related to background bronchitis or reactive airways disease. Electronically authenticated by: JOELLE FERGUSON Date: 04/27/2024 02:31
--- NOTE | 2024-04-27 01:00 | ED.SOB1 ---
HPI - SOB/Dyspnea General Chief Complaint: Shortness of Breath/Dyspnea Stated Complaint: SOB Time Seen by Provider: 04/27/24 00:52 Source: patient Mode of arrival: ambulance Limitations: no limitations History of Present Illness HPI Narrative: This 53-year-old female with a history of tobacco use presents for evaluation of cough, wheezing and shortness of breath. The patient was at her family physician's office on Wednesday and tested positive for influenza. She states that she had injections in her back on Wednesday and after that started feeling some tightness in her chest. She went to see her doctor on Wednesday and tested positive for influenza and was given a prescription for steroids and a Z-Fritz. She has not started taking that until earlier today. Her symptoms have become increasingly worse over the course of the past 1 to 2 days with increasing shortness of breath and chest tightness. She called EMS to bring her to the hospital. She had a breathing treatment by EMS with mild clinical improvement. She has no lower extremity pain or swelling. She denies any juno chest pain but states her chest feels tight. She has been having fevers and bodyaches. She has no abdominal pain. She has not had any nausea vomiting or diarrhea. Related Data Home Medications ?Medication ?Instructions ?Recorded ?Confirmed VITAMIN C DAILY 11/12/22 baclofen 10 mg tablet 10 mg PO TID 11/12/22 04/24/24 cholecalciferol (vit D3) 1,000 1 tab PO DAILY 11/12/22 04/24/24 unit-vitamin K2 (MK4) 100 mcg tablet (K2 Plus D3) lisinopril 10 mg tablet 10 mg PO DAILY 11/12/22 04/24/24 omeprazole 20 mg capsule,delayed 20 mg PO DAILY 11/12/22 04/24/24 release acetylcysteine 600 mg capsule (NAC) 1,200 mg PO BID 10/04/23 04/24/24 montelukast 10 mg tablet mg 04/24/24 Previous Rx's ?Medication ?Instructions ?Recorded gabapentin 600 mg tablet 600 mg PO TID #270 tabs 04/12/24 hydrocodone 7.5 mg-acetaminophen 1 tab PO TID PRN pain #90 tabs 04/12/24 325 mg tablet meloxicam 15 mg tablet 15 mg PO DAILY PRN pain #90 tabs 04/12/24 naloxone 4 mg/actuation nasal 4 mg intranasal Q2M PRN opioid 04/12/24 spray (Narcan) overdose #2 ea Allergies Allergy/AdvReac Type Severity Reaction Status Date / Time amoxicillin (From Augmentin) Allergy Unknown Rash Verified 04/27/24 00:42 clavulanic acid (From Allergy Unknown Rash Verified 04/27/24 00:42 Augmentin) Penicillins Allergy Unknown RASH Verified 04/27/24 00:42 Review of Systems ROS Status of ROS 10 or more systems reviewed and unremarkable except as noted in history and below PFSH PFS Medical History Osteoarthritis ?M19.90 - Unspecified osteoarthritis, unspecified site (ICD-10) Rheumatoid arthritis ?M06.9 - Rheumatoid arthritis, unspecified (ICD-10) Anxiety ?F41.9 - Anxiety disorder, unspecified (ICD-10) Acid reflux ?K21.9 - Gastro-esophageal reflux disease without esophagitis (ICD-10) Smoker ?F17.200 - Nicotine dependence, unspecified, uncomplicated (ICD-10) Asthma ?J45.909 - Unspecified asthma, uncomplicated (ICD-10) Heart murmur ?R01.1 - Cardiac murmur, unspecified (ICD-10) HTN (hypertension) ?I10 - Essential (primary) hypertension (ICD-10) Surgical History History of lymph node excision ?Z98.890 - Other specified postprocedural states (ICD-10) History of hysterectomy ?Z90.710 - Acquired absence of both cervix and uterus (ICD-10) History of lumbar fusion ?Z98.1 - Arthrodesis status (ICD-10) Exam Narrative Exam Narrative: Vital signs and Nursing Notes reviewed: Patient is afebrile, she is tachypneic, tachycardic and has an elevated blood pressure, she is not hypoxic with pulse ox of 95% on room air General: Nontoxic but somewhat ill appearing overweight female, she has mild respiratory difficulty with audible expiratory wheezing HEENT: Normocephalic atraumatic, mucous membranes are moist and pink, eyes are clear, normal conjunctiva, vision is grossly intact, posterior pharynx is normal in appearance. Neck: Supple, no meningeal signs, no anterior or posterior cervical lymphadenopathy Chest: Bilateral expiratory and inspiratory wheezing noted with scattered rhonchi, wheezing is greatest in the posterior lung white. She has 4-5 word conversational dyspnea and mild accessory muscle use. CVS: Tachycardic in the 120s, pulses are brisk and equal. ABD: Soft, nondistended, nontender, no rebound guarding or rigidity, bowel sounds are normal, no pulsatile masses appreciated Extremities: Moving all extremities, no lower extremity tenderness or swelling noted, negative Homans' sign, pulses are brisk and equal bilaterally Skin: Skin is flushed, no skin rash noted Neuro: No focal deficits Constitutional Vital Signs, click to edit/add: Last Vital Signs Temp 98.6 F 04/27/24 00:38 Pulse 124 H 04/27/24 01:29 Resp 22 H 04/27/24 01:29 BP 160/90 H 04/27/24 00:38 Pulse Ox 94 L 04/27/24 01:29 O2 Del Method Room Air 04/27/24 01:29 Course Vital Signs Vital signs: Vital Signs Temperature 98.6 F 04/27/24 00:38 Pulse Rate 136 H 04/27/24 00:38 Respiratory Rate 22 H 04/27/24 00:38 Blood Pressure 160/90 H 04/27/24 00:38 Pulse Oximetry 95 04/27/24 00:38 Oxygen Delivery Method Room Air 04/27/24 00:38 Temperature 98.6 F 04/27/24 00:38 Pulse Rate 124 H 04/27/24 01:29 Respiratory Rate 22 H 04/27/24 01:29 Blood Pressure 160/90 H 04/27/24 00:38 Pulse Oximetry 94 L 04/27/24 01:29 Oxygen Delivery Method Room Air 04/27/24 01:29 MDM - SOB/Dyspnea MDM Narrative Medical decision making narrative: This 53-year-old female who is a smoker and was diagnosed with influenza on Wednesday at her family physician's office is brought to the emergency department by EMS for evaluation of shortness of breath. The patient states she has not smoked much since being diagnosed with influenza. She has had intermittent fevers and cough. On arrival she is tachycardic but has a normal pulse ox. She had been given a breathing treatment but still had diffuse inspiratory and expiratory wheezing and conversational dyspnea. EKG is a sinus tachycardia at 113 bpm. She was given IV fluids, DuoNeb treatments x 2, Tylenol, Solu-Medrol, magnesium. Routine labs are reviewed. She has a normal white count and hemoglobin. Electrolytes are normal. Chest x-ray shows right sided pneumonia. She was given IV Rocephin and Zithromax for this pneumonia. She remains dyspneic and was placed on 2 L nasal cannula due to episodes of hypoxia into the low 90s. The case was discussed with the hospitalist and she is excepted for admission to [facility]. Medical Records Medical records narrative: [place] [address] XRay Report Signed Patient: AKASH LIU MR#: [id number] : 1970 Acct:[id number] Age/Sex: 53 / F ADM Date: 04/27/24 Loc: ER Attending Dr: Ordering Physician: Mariah Torrez Date of Service: 04/27/24 Procedure(s): XR chest 2V Accession Number(s): [id number] cc: Mariah Torrez; Physician,Non-Staff M.D.~ [facility] [place] [address] Patient Name: AKASH LIU MRN: [id number] date: 1970 Sex: F Assigned Patient Location: ER Current Patient Location: ED.[facility] Accession/Order Number: [id number] Exam Date: 04/27/2024 01:05 Report Date: 04/27/2024 02:31 At the request of: MARIAH TORREZ Procedure: XR chest 2V EXAM: XR chest 2V HISTORY: fever, cough and dyspnea for 3 days. History of asthma. COMPARISON: None. TECHNIQUE: Frontal and lateral chest x-rays. FINDINGS: The heart is mildly enlarged. Pulmonary vascularity is normal. There is central bronchial wall thickening with increased bronchovascular markings in both lungs. Patchy right upper lobe infiltrate consistent with pneumonia with milder right middle lobe infiltrate on the lateral view. Pulmonary hyperinflation is noted. There is no pleural fluid or pneumothorax. XR/XR chest 2V IMPRESSION: Right lung pneumonia with diffuse increased bronchovascular markings likely related to background bronchitis or reactive airways disease. Electronically authenticated by: JOELLE FERGUSON Date: 04/27/2024 02:31 Lab Data Labs: Lab Results 04/27/24 Range/Units 00:42 WBC 11.2 H (4.0-11.0) 10^3/uL RBC 3.86 L (4.20-5.40) 10^6/uL Hgb 13.0 (12.0-16.0) g/dL Hct 39.6 (36.0-48.0) % MCV 102.6 H (81.0-99.0) fL MCH 33.7 (26.7-34.0) pg MCHC 32.8 (29.9-35.2) g/dL RDW 12.7 (11.0-15.0) % Plt Count 224 (150-450) 10^3/uL MPV 9.8 (9.5-13.5) fL Neut % (Auto) 81.6 H (43.0-75.0) % Lymph % (Auto) 11.8 L (20.5-60.0) % Wythe % (Auto) 6.0 (1.7-12.0) % Eos % (Auto) 0.0 L (0.9-7.0) % Baso % (Auto) 0.1 L (0.2-2.0) % Neut # (Auto) 9.2 H (1.4-6.5) 10^3/uL Lymph # (Auto) 1.3 (1.2-3.8) 10^3/uL Wy[place] # (Auto) 0.7 (0.3-0.8) 10^3/uL Eos # (Auto) 0.0 (0.0-0.7) 10^3/uL Baso # (Auto) 0.0 (0.0-0.1) 10^3/uL Abs Immat Gran (auto) 0.06 H (0.00-0.03) 10^3/uL Imm/Tot Granulo (auto) 0.5 (0.0-0.5) % Sodium 139 (136-145) mmol/L Potassium 4.2 (3.5-5.1) mmol/L Chloride 104 (98-107) mmol/L Carbon Dioxide 24.4 (21.0-32.0) mmol/L Anion Gap 14.8 BUN 10.0 (7.0-18.0) mg/dL Creatinine 0.98 (0.55-1.02) mg/dL Est GFR ( Amer) >60 (>=60 mL/min/1.73m^2) Est GFR (Non-Af Amer) 59 L (>=60 mL/min/1.73m^2) BUN/Creatinine Ratio 10.2 Glucose 113 H (74-106) mg/dL Calcium 10.1 (8.5-10.1) mg/dL Total Bilirubin 0.2 (0.2-1.0) mg/dL AST 28 (15-37) U/L ALT 36 (14-59) U/L Alkaline Phosphatase 74 (46-116) U/L Troponin I High Sens 8.6 (4.0-51.3) pg/mL Total Protein 7.8 (6.4-8.2) g/dL Albumin 3.5 (3.4-5.0) g/dL Globulin 4.3 g/dL Albumin/Globulin Ratio 0.8 ECG Data Attestation: I personally reviewed and interpreted this ECG as follows: (Sinus tachycardia at 113 bpm, normal axis, normal intervals, no acute ST segment elevation or T wave inversion) Discharge Plan Discharge Chief Complaint: Shortness of Breath/Dyspnea Clinical Impression: Pneumonia, Influenza Patient Disposition: Admitted As Inpatient Time of Disposition Decision: 03:29 Condition: Fair Prescriptions / Home Meds: No Action acetylcysteine [NAC] 600 mg capsule 1,200 mg PO BID hydrocodone-acetaminophen 7.5-325 mg tablet 1 tab PO TID PRN (Reason: pain) Qty: 90 0RF gabapentin 600 mg tablet 600 mg PO TID Qty: 270 0RF meloxicam 15 mg tablet 15 mg PO DAILY PRN (Reason: pain) Qty: 90 0RF naloxone [Narcan] 4 mg/actuation spray,non-aerosol 4 mg intranasal Q2M PRN (Reason: opioid overdose) Qty: 2 0RF Rx Instructions: spray 1 dose into ONE nostril; alternate nostrils w each dose until help arrives K2 Plus D3 1,000-100 unit-mcg tablet 1 tab PO DAILY baclofen 10 mg tablet 10 mg PO TID lisinopril 10 mg tablet 10 mg PO DAILY omeprazole 20 mg capsule,delayed release(DR/EC) 20 mg PO DAILY VITAMIN C DAILY montelukast 10 mg tablet Print Language: Estonian Referrals: Physician,Non-Staff, MD [Primary Care Provider] - 1 week
--- OUTSIDE RECORDS SUMMARY | 2024-04-27 01:02 | XMS_ITS | CCD ---
Author Organization [facility] Care Team Providers Care It Lead Name Role Phone Roberto Roth Primary Care Provider Justice Cruz Attending Provider DO Roberto Roth Primary Care Provider MD Hood Rausch Attending Provider [phone] DO Roberto Roth Primary Care Provider [phone] CALVIN Yu Attending Provider [phone] MD Paresh Tian Attending Provider DO Roberto Roth Primary Care Provider CALVIN Yu Attending Provider MD Paresh Tian Attending Provider MD Gina Guerrero Attending Provider [phone] Gina Guerrero Unavailable SHE ., DR HOOD [...] Guerrero Admitting Unavailable Aby Yu CNP Unavailable [phone] Gilitaitis , Aaron Musa Attending Unavailable Panda BUSTILLO, Aaron Musa Attending Unavailable Unavailable Unavailable Unavailable Allergies Allergy Classification Reported Allergen(s) Allergy Type Date of Onset Reaction(s) Facility (6 sources) Amoxicillin; Translations: [amoxicillin] Drug Allergy 0 [facility] (7 sources) Penicillins; Translations: [Penicillins] Propensity to adverse reactions 4 Nausea [facility] (6 sources) clavulanic acid; Translations: [clavulanic acid] Propensity to adverse reactions 0 [facility] (3 sources) Amoxicillin / Clavulanate; Translations: [Augmentin] Drug Allergy 4 Unknown [facility] Repository (2 sources) Azithromycin Drug Allergy diarrhea [facility] Other (2 sources) Penicillin G Drug Allergy Unknown [facility] Other Medications Current Medications Medication Drug Class(es) Dates Sig (Normalized) Sig (Original) acetaminophen 500 mg oral tablet (4 sources) Start: 05-31-2020 take 500 mg by mouth every four hours Acetaminophen Active 500 MG PO Q4H 100 May 31, 2020 1:00am [id number] 200 actuat albuterol 0.09 mg/actuat metered dose [...] by mouth three times daily Hydrocodone-Acetami nophen ([place]) 5-325 mg Tablet Discontinued 1 TAB PO Three times daily March 18, 2019 12:00am May 23, 2020 4:59pm [place] Active azithromycin 250 mg oral tablet (4 [...] by Justice Lucas on 07/31/2022 0915 Normal [facility] Automated erythrocytes count in urine sediment (number/area)Ordered By: Paresh Tian on 07-16-2022 RBC Auto (Urine sed) [#/Area] 1-2 [HPF] 0-4 [facility] Automated leukocytes count i n urine sediment (number/area)Ordered By: Paresh Tian on 07-16-2022 WBC Auto (Urine sed) [#/Area] 20-49 [HPF] 0-4 [facility] Basophils Auto (Bld) [#/Vol] Ordered By: Paresh Tian on 07-16-2022 Basophils (Bld) [#/Vol] 0.0 10*3/uL 0.0-0.2 [facility] Basophils/100 WBC Auto (Bld) Ordered By: Paresh Tian on 07-16-2022 Basophils/100 WBC (Bld) 0.4 % . [facility] Bilirubin Test strip Ql (U)O rdered By: Paresh Tian on 07-16-2022 Bilirubin Ql (U) Negative Negative [facility] C reactive protein [Mass/vol ume] in Serum or PlasmaOrdered By: Paresh Tian on 07-16-2022 CRP [Mass/Vol] 0.8 mg/dL 0.0-1.0 [facility] Color Auto (U)Ordered By: Afia Tian on 07-16-2022 Color (U) Yellow Yellow [facility] Creatinine and Glomerular fi ltration rate.predicted panel (S/P/Bld)Ordered By: Paresh Tian on 07-16-2022 Creatinine [Mass/Vol] 0.74 mg/dL 0.44-1.03 [facility] Eosinophils Auto (Bld) [#/Vo l]Ordered By: Paresh Tian on 07-16-2022 Eosinophils (Bld) [#/Vol] 0.1 10*3/uL 0.0-0.45 [facility] Eosinophils/100 WBC Auto (Bl d)Ordered By: Paresh Tian on 07-16-2022 Eosinophils/100 WBC (Bld) 1.1 % . [facility] Erythrocyte distribution wid th Auto (RBC) [Ratio]Ordered By: Paresh Tian on 07-16-2022 Erythrocyte distribution width (RBC) [Ratio] 13.0 % 11.9-15.3 [facility] Erythrocyte sedimentation ra te by Photometric methodOrdered By: Paresh Tian on 07-16-2022 ESR Photometric method (Bld) [Velocity] 45 mm/hr 0-29 [facility] Estimated glomerular filtrat ion rate (GFR) non- AmericanOrdered By: Paresh iTan on 07-16-2022 GFR/1.73 sq M.predicted among non-blacks MDRD (S/P/Bld) [Vol rate/Area] > 60 mL/Min [facility] Hematocrit Auto (Bld) [Volum e fraction]Ordered By: Paresh Tian on 07-16-2022 Hematocrit (Bld) [Volume fraction] 45.3 % 34.0-46.4 [facility] Hemoglobin [Mass/volume] in BloodOrdered By: Paresh Tian on 07-16-2022 Hemoglobin (Bld) [Mass/Vol] 15.2 g/dL 11.8-15.4 [facility] Ketones Auto test strip (U) [Mass/Vol]Ordered By: Paresh Tian on 07-16-2022 Ketones (U) [Mass/Vol] Negative Negative [facility] Laboratory - UrinalysisOrder ed By: Paresh Tian on 07-16-2022 Hyaline casts LM Ql (Urine sed) 0-8 [LPF] 0-8 [facility] Leukocytes [#/volume] correc scot for nucleated erythrocytes in Blood by Automated counOrdered By: Paresh Tian on 07-16-2022 WBC corrected for nucl RBC Auto (Bld) [#/Vol] 10.4 10*3/uL 3.8-11.6 [facility] Lymphocytes Auto (Bld) [#/Vo l]Ordered By: Parseh Tian on 07-16-2022 Lymphocytes (Bld) [#/Vol] 3.7 10*3/uL 1.00-4.8 [facility] Lymphocytes/100 WBC Auto (Bl d)Ordered By: Paresh Tian on 07-16-2022 Lymphocytes/100 WBC (Bld) 35.0 % . [facility] MCH Auto (RBC) [Entitic mass ]Ordered By: Paresh Tian on 07-16-2022 MCH (RBC) [Entitic mass] 33.8 pg 24.7-34.3 [facility] MCHC Auto (RBC) [Mass/Vol]Or dered By: Paresh Tian on 07-16-2022 MCHC (RBC) [Mass/Vol] 33.6 g/dL 32.0-35.0 [facility] MCV Auto (RBC) [Entitic vol] Ordered By: Paresh Tian on 07-16-2022 MCV (RBC) [Entitic vol] 100.6 fL 80-100 [facility] Mitotic spindle apparatus Ab [Titer] in Serum or Plasma by ImmunofluorescenceOrdered By: Paresh Tian on 07-16-2022 Mitotic spindle apparatus Ab IF [Titer] 1:160 . [facility] Comment on above: ICAP nomenclature: A C-25,26 Monocytes Auto (Bld) [#/Vol] Ordered By: Paresh Tian on 07-16-2022 Monocytes (Bld) [#/Vol] 0.7 10*3/uL 0.0-0.8 [facility] Monocytes/100 WBC Auto (Bld) Ordered By: Paresh Tian on 07-16-2022 Monocytes/100 WBC (Bld) 6.8 % . [facility] Neutrophils Auto (Bld) [#/Vo l]Ordered By: Paresh Tian on 07-16-2022 Neutrophils (Bld) [#/Vol] 5.9 10*3/uL 1.8-7.7 [facility] Neutrophils/100 WBC Auto (Bl d)Ordered By: Paresh Tian on 07-16-2022 Neutrophils/100 WBC (Bld) 56.7 % . [facility] Nitrite Test strip Ql (U)Ord ered By: Paresh Tian on 07-16-2022 Nitrite Ql (U) Negative Negative [facility] No Panel InformationOrdered By: Paresh Tian on 07-16-2022 Anti-Nuclear Antibody Comment 2 See comment . [facility] Comment on above: For more information about Hep-2 cell patterns useInfoDifpatterns.org, the official website for the InternationalConsensus on Antinuclear Antibody (ASTER) Patterns (ICAP). --------A positive ASTER result may occur in healthy individuals (lowtiter) or be associated with a variety of diseases. Seeinterpretation chart which is not all inclusive:Pattern Antigen Detected Suggested Disease Association Homogeneous DNA(ds,ss), SLE - High titers Nucleosomes, Histones Drug-induced SLE Speckled Sm, PROBLEM MANAGER, SCL-70, SLE,MCTD,PSS (diffuse form), SS-A/SS-B Sjogrens Nucleolar SCL-70, PM-1/SCL High titers Scleroderma, PM/DM Centromere Centromere PSS (limited form) w/Crest syndrome variable Nuclear Dot Sp100,[id number] Primary Biliary Cirrhosis Nuclear GP210, Primary Biliary CirrhosisMembrane kailyn A,B,C Performed at: [facility] [id number] Director: Collin Rodriguez PhD, Phone: [phone] Estimated GFR () > 60 mL/Min [facility] Comment on above: GFR estimated refere nce range: According to KDOQI guidelines, <60 ml/min/1.73m2 is sufficient to diagnose a patient with chronic kidney disease. Pharmacy Creatinine Clearance (Chem N/A [facility] Total Complement (CH50) >60 U/mL >41 [facility] Comment on above: Age Male [...] to determine out of range values.Performed at: [facility] [id number] Director: Collin Rodriguez PhD, Phone: [phone] Nucleated erythrocytes [Pres ence] in Blood by Automated countOrdered By: Paresh Tian on 07-16-2022 Nucleated RBC Auto Ql (Bld) 0.1 /100{WBC} 0-0.5 [facility] Platelet mean volume Auto (B ld) [Entitic vol]Ordered By: Paresh Tian on 07-16-2022 Platelet mean volume (Bld) [Entitic vol] 8.4 fL 6.3-10.7 [facility] Platelets Auto (Bld) [#/Vol] Ordered By: Paresh Tian on 07-16-2022 Platelets (Bld) [#/Vol] 242 10*3/uL 150-450 [facility] Protein Auto test strip (U) [Mass/Vol]Ordered By: Paresh Tian on 07-16-2022 Protein (U) [Mass/Vol] Negative Negative [facility] RBC Auto (Bld) [#/Vol]Ordere d By: Paresh Tian on 07-16-2022 RBC (Bld) [#/Vol] 4.50 10*6/uL 3.60-5.00 [facility] Serum homogeneous pattern an tinuclear antibody (ASTER) titerOrdered By: Paresh Tian on 07-16-2022 Homogenous nuclear Ab pattern (S) [Titer] N/A [facility] Serum nuclear antibody titer Ordered By: Paresh Tian on 07-16-2022 Nuclear Ab (S) [Titer] Positive . [facility] Comment on above: Negative <1:80 Borde rline 1:80 Positive >1:80 Serum or plasma complement C 3 measurement (mass/volume)Ordered By: Paresh Tian on 07-16-2022 Complement C3 [Mass/Vol] 197 mg/dL 82-167 [facility] Comment on above: Performed at: [facility] Director: Collin Rodriguez PhD, Phone: [phone] Serum or plasma complement C 4 measurement (mass/volume)Ordered By: Paresh Tian on 07-16-2022 Complement C4 [Mass/Vol] 42 mg/dL 12-38 [facility] Specific gravity Auto test s trip (U) [Rel density]Ordered By: Paresh Tian on 07-16-2022 Specific gravity (U) [Rel density] 1.018 1.001-1.03 0 [facility] Squamous epithelial cells de tection in urine sediment by light microscopyOrdered By: Paresh Tian on 07-16-2022 Epithelial cells.squamous LM Ql (Urine sed) 0-1 [HPF] 0-2 [facility] Urine bacteria detection by automated methodOrdered By: Paresh Tian on 07-16-2022 Bacteria Auto Ql (U) 4+ None Seen [facility] Urine clarity by refractomet ry automatedOrdered By: Paresh Tian on 07-16-2022 Clarity Refractometry automated (U) Clear Clear [facility] Urine culture routineOrdered By: Paresh Tian on 07-16-2022 Bacteria identified Cx Nom (U) Escherichia coli [facility] Urine glucose measurement by automated test strip (mass/volume)Ordered By: Paersh Tian on 07-16-2022 Glucose Auto test strip (U) [Mass/Vol] Normal mg/dL Normal [facility] Urine hemoglobin detection b y automated test stripOrdered By: Paresh Tian on 07-16-2022 Hemoglobin Auto test strip Ql (U) Negative Negative [facility] Urine leukocyte esterase det ection by automated test stripOrdered By: Paresh Tian on 07-16-2022 Leukocyte esterase Auto test strip Ql (U) 3+ Negative [facility] Urobilinogen Auto test strip (U) [Mass/Vol]Ordered By: Paresh Tian on 07-16-2022 Urobilinogen (U) [Mass/Vol] Normal mg/dL Normal [facility] WBC Auto (Bld) [#/Vol]Ordere d By: Paresh Tian on 07-16-2022 WBC (Bld) [#/Vol] 10.4 10*3/uL 3.8-11.6 [facility] pH Auto test strip (U)Ordere d By: Paresh Tian on 07-16-2022 pH (U) 6.5 [pH] 5.0-9.0 [facility] XR HIPS ZEINA 3_4V WO PELVISon 05-15-2022 [...] DASHA KHAN Date: 2022-05-15 07:49 Normal [facility] Covid-19 PCR (CVDTBH)on SARS-CoV-2 (COVID-19) RNA AMBERLY+probe Ql (Unsp spec) Not detected Normal NOT DETECTED [facility] Comment on above: Result Comment: This test is not yet approved or cleared by the [place] FDA. When there are no FDA-approved or cleared tests available, and other criteria are met, FDA can make tests available under an emergency access mechanism called an Emergency Use Authorization (EUA). The EUA for this test is supported by the [place] of Health and Human Service's (HHS's) declaration [...] consistent with SARS-CoV-2. Performed By: #### [facility] #### [facility] [address] [place] [address] Dr. Narendra Jacobsen COVID-19 Positive/NegativeOr dered By: Baljinder Rausch on 01-31-2022 SARS-CoV-2 (COVID-19) N gene AMBERLY+probe Ql (Resp) Negative Negative [facility] Comment on above: Testing for SARS-CoV -2 by RT-PCR This test was developed and its performance characteristics determined by [employer] ([employer]) and validated at the [facility]. This test has not been FDA cleared [...] COVID-19 Positive/Negativeon 05-20-2020 COVID-19 Positive/Negative Negative Negative [facility] Comment on above: Testing for SARS-CoV -2 by RT-PCRThis test was developed and its performance characteristics determined by [employer] ([employer]) and validated at the [facility]. This test has not been FDA cleared [...] Otheron 05-20-2020 Coronavirus 2019 PCR Interp N/A [facility] Automated basophil %on 05-14 Basophils/100 WBC (Bld) 0.5 % F [facility] Automated basophil counton 1 07-15-2019 Basophils (Bld) [#/Vol] 0.0 10*3/uL 0.0-0.2 [facility] Automated blood lymphocyte c ount (number/volume)on 05-14-2020 Lymphocytes (Bld) [#/Vol] 2.8 10*3/uL 1.00-4.8 [facility] Automated blood lymphocyte c ount as percentage of total leukocyteson 05-14-2020 Lymphocytes/100 WBC (Bld) 35.0 % [facility] Automated blood monocyte cou nton 05-14-2020 Monocytes (Bld) [#/Vol] 0.6 10*3/uL 0.0-0.8 [facility] Automated blood platelet cou nt (count/volume)on 05-14-2020 Platelets (Bld) [#/Vol] 225 10*3/uL 150-450 [facility] Automated blood platelet jose n volume measurementon 05-14-2020 Platelet mean volume (Bld) [Entitic vol] 8.2 fL 6.3-10.7 [facility] Automated eosinophil %on Eosinophils/100 WBC (Bld) 1.5 % [facility] Automated eosinophil counton 05-14-2020 Eosinophils (Bld) [#/Vol] 0.1 10*3/uL 0.0-0.45 [facility] Automated erythrocyte distri bution width ratioon 05-14-2020 Erythrocyte distribution width (RBC) [Ratio] 12.3 % 11.9-15.3 [facility] Automated erythrocyte mean c orpuscular hemoglobin (mass per erythrocyte)on 05-14-2020 MCH (RBC) [Entitic mass] 35.2 pg 24.7-34.3 [facility] Automated erythrocyte mean c orpuscular hemoglobin concentration measurement (mass/volon 05-14-2020 MCHC (RBC) [Mass/Vol] 34.2 g/dL 32.0-35.0 [facility] Automated erythrocyte mean c orpuscular volumeon 05-14-2020 MCV (RBC) [Entitic vol] 102.9 fL 80-100 F [facility] Automated monocyte %on 05-14 Monocytes/100 WBC (Bld) 7.0 % F [facility] Automated neutrophil %on Neutrophils/100 WBC (Bld) 56.0 % [facility] Blood erythrocytes automated count (number/volume)on 05-14-2020 RBC (Bld) [#/Vol] 4.08 10*6/uL 3.60-5.00 [facility] Blood hemoglobin measurement (mass/volume)on 05-14-2020 Hemoglobin (Bld) [Mass/Vol] 14.3 g/dL 11.8-15.4 [facility] Blood leukocytes automated c ount (number/volume)on 05-14-2020 WBC (Bld) [#/Vol] 7.9 10*3/uL 4.5-11.0 [facility] Blood neutrophil count by au tomated method (number/volume)on 05-14-2020 Neutrophils (Bld) [#/Vol] 4.4 10*3/uL 1.8-7.7 [facility] Estimated glomerular filtrat ion rate (GFR) non- Americanon 05-14-2020 GFR/1.73 sq M predicted among non-blacks MDRD (S/P/Bld) [Vol rate/Area] mL/min/{1.73_m2} [facility] Hematocrit [Volume Fraction] of Blood by Automated counton 05-14-2020 Hematocrit (Bld) [Volume fraction] 41.9 % 34.0-46.4 [facility] Otheron 05-14-2020 GFR/1.73 sq M.predicted MDRD (S/P/Bld) [Vol rate/Area] mL/min/{1.73_m2} [facility] Comment on above: GFR estimated refere nce range: According to KDOQI guidelines, <60 ml/min/1.73m2 is sufficient to diagnose a patient with chronic kidney disease. Nucleated RBC/100 WBC (Bld) [Ratio] 0.1 % 0-0.5 [facility] Pharmacy Creatinine Clearance (Chem N/A [facility] Serum or plasma calcium octavio urement (mass/volume)on 05-14-2020 Calcium [Mass/Vol] 10.1 mg/dL 8.2-10.2 [facility] Serum or plasma chloride jose surement (moles/volume)on 05-14-2020 Chloride [Moles/Vol] 101 mmol/L 95-114 [facility] Serum or plasma creatinine m easurement with calculation of estimated glomerular filtron 05-14-2020 Creatinine [Mass/Vol] 0.60 mg/dL 0.44-1.03 [facility] Serum or plasma glucose octavio urement (mass/volume)on 05-14-2020 Glucose [Mass/Vol] 94 mg/dL 70-100 [facility] Comment on above: ADA recommended refe rence rangeRandom Glucose Reference Range is dependent on time and content of last meal. Glucose of more than 200 mg/dL in a nonstressed, ambulatory subject supports the diagnosis of Diabetes Mellitus. Serum or plasma potassium me asurement (moles/volume)on 05-14-2020 Potassium [Moles/Vol] 4.3 mmol/L 3.5-5.1 [facility] Serum or plasma sodium measu rement (moles/volume)on 05-14-2020 Sodium [Moles/Vol] 140 mmol/L 136-146 [facility] Serum or plasma total carbon dioxide measurement (moles/volume)on 05-14-2020 CO2 [Moles/Vol] 27.2 mmol/L 22.0-30.[address] [facility] Serum or plasma urea nitroge n measurement (mass/volume)on 05-14-2020 Urea nitrogen [Mass/Vol] 7 mg/dL 9- [facility] Vital Signs Date Time Vital Sign Value Performing Clinician Facility 08-17-2022 16:00-0400 Body height 160.02 cm Gina Blades Other [facility] Other 08-17-2022 16:00-0400 Body mass index (BMI) [Ratio] 40.56 kg/m2 Gina Blades Other [facility] 08-17-2022 16:00-0400 Body weight 103.87 kg Gina Blades Other [facility] Other 08-17-2022 16:00-0400 Diastolic blood pressure 82 mm[Hg] Gina Blades Other [facility] Other 08-17-2022 16:00-0400 Systolic blood pressure 126 mm[Hg] Gina Blades Other [facility] Other Encounters Encounter Date Encounter Type Care [...] End: 09-08-2022 ambulatory Gina Blades Other [facility] Other Start: 09-08-2022 Telephone encounter Gina Blades [facility] Start: 09-01-2022 End: 09-02-2022 ambulatory NARENDRANATH LAKSHMIPATHY . Facility: Start: 08-17-2022 End: 08-17-2022 Patient encounter procedure DO Roberto Roth Work Phone: [facility] [place] Work Phone: Start: 08-17-2022 End: 08-17-2022 ambulatory DO Roberto Roth Work Phone: [facility] Work Phone: Start: 08-17-2022 Office outpatient ne w 45 minutes Gina Blades [facility] Start: 07-16-2022 End: 07-17-2022 ambulatory DO Roberto Roth Work Phone: [facility] Work Phone: Start: 07-16-2022 End: 07-16-2022 Patient encounter procedure DO Roberto Roth Work Phone: [facility] [address] Work Phone: Start: 07-03-2022 End: 07-03-2022 ambulatory DO Roberto Roth Work Phone: [facility] Work Phone: Start: 07-03-2022 End: 07-03-2022 Patient encounter procedure DO Roberto Roth Work Phone: [facility] [place] Work Phone: Start: 06-23-2022 End: 06-23-[address] HOOD RAUSCH . Facility:[facility] Start: 05-29-2022 End: 05-30-[address] HOOD RAUSCH . Facility:[facility] Start: 05-14-2022 End: 05-15-2022 ambulatory ADA SINGH . Facility:[facility] Start: 03-12-2022 End: 03-13-[address] HOOD RAUSCH . Facility:[facility] Start: 02-13-2022 Encounter for preprocedural laboratory examination DR HOOD RAUSCH . [facility] Start: 02-10-2022 End: 02-10-[address] HOOD RAUSCH . Facility:[facility] Start: 02-06-2022 End: 02-07-[address] HOOD RAUSCH . Facility:[facility] Start: 02-06-2022 End: 02-07-2022 Encounter for preprocedural laboratory examination DR HOOD RAUSCH . Facility:[facility] Start: 02-03-2022 End: 02-03-[address] HOOD RAUSCH . Facility:[facility] Start: 01-31-2022 End: 01-31-2022 Patient encounter procedure DO Roberto Roth Work Phone: [facility] Start: 01-16-[address] HOOD RAUSCH . Faci lity:[facility] Start: 01-07-2022 End: 01-08-[address] HOOD RAUSCH . Facility:[facility] Start: 05-20-2020 End: 05-20-2020 Patient encounter procedure Roberto Roth -Pre-Surgical Testing Start: 05-14-2020 End: 05-14-2020 Patient encounter procedure Roberto Roth -Pre-Surgical Testing Start: 04-26-2020 End: 04-26-2020 Patient encounter procedure Roberto Roth -[facility] [place] Procedures Date Procedure Procedure Detail Performing Clinician [...] XR hi p RT min 2V(w/wo pelvis)* [facility] Start: 08-17-2022 XR Hip - right 2 Views [facility] Start: 07-16-2022 Bacteria identified in Urine by Culture [facility] Start: 07-16-2022 Hemolytic complement CH50 level [facility] Start: 07-16-2022 [facility] Complement C3 [Mass/volume] in Serum or Plasma [facility] Complement C4 [Mass/volume] in Serum or Plasma [facility] Homogenous nuclear A b pattern [Titer] in Serum [facility] Nuclear Ab [Titer] i n Serum [facility] Immunizations Immunization Date Immunization Notes Care Provider Fa cility 11-09-2020 COVID-19 mRNA-1273 (Moderna) DO Roberto Roth Work Phone: [facility] 10-12-2020 COVID-19 mRNA-1273 (Moderna) DO Roberto Roth Work Phone: [facility] 05-23-2020 influenza, injectabl e, quadrivalent, preservative free DO Roberto Roth Work Phone: [facility] Payers Date Payer Category Payer Unknown [id number] 2022 Self-pay [id number] 1970 Unknown [id number] 2.16.84 [id number] 1968 Unknown [id number] 2.16.84 0.1.636367.3.579.2.593 1968 Unknown [id number] 2.16.84 0.1.524552.3.579.2.593 1968 Unknown [id number] 2.16.84 0.1.293362.3.579.2.593 1968 Unknown [id number] 2.16.84 0.1.827812.3.579.2.593 1968 Unknown [id number] 2.16.84 0.1.128329.3.579.2.593 1968 Unknown [id number] 2.16.84 0.1.537803.3.579.2.593 1968 Unknown [id number] 2.16.84 0.1.783525.3.579.2.593 1968 Unknown [id number] 2.16.84 0.1.027807.3.579.2.593 1968 Unknown [id number] 2.16.84 0.1.562364.3.579.2.593 1968 Unknown [id number] 2.16.84 0.1.461248.3.579.2.593 1968 Unknown [id number] 2.16.84 0.1.795793.3.579.2.593 1968 Unknown [id number] 2.16.84 0.1.051082.3.579.2.593 1968 Unknown [id number] 2.16.84 0.1.350699.3.579.2.593 1968 Unknown [id number] 2.16.84 0.1.235820.3.579.2.593 1968 Unknown [id number] 2.16. 840.1.977762.3.579.2.196 1968 Unknown [id number] 2.16. 840.1.770709.3.579.2.196 1959 Unknown [id number] Unknown [id number] Unknown [id number] 2.16.8 40.1.127350.3.579.2.531 Social History Date Type Detail Facility Start: 05-14-2020 End: 06-23-2021 Tobacco smoking status [facility] Smoker (finding) [facility] Start: 1970 Sex Assigned At Female F [facility] Start: 06-23-1987 History of tobacco use [facility] Work Phone: Tobacco smoking status [facility] Tobacco smoking consumption unknown [facility] Start: 1970 Sex assigned at Not on file C [facility] Medical Equipment Procedure Code Equipment Code Equipment Origin al Text Equipment Identifier Dates Fusion, spine, lumbar, XLIF CANCELLOUS COARSE 7.5CC FDA Start: 05-22-2020 Fusion, spine, lumbar, XLIF Bone-screw internal spinal fixation system, non-sterile ()[id number] FDA Start: 05-22-2020 Fusion, spine, lumbar, XLIF Bone-screw internal spinal fixation system, non-sterile ()[id number] FDA Start: 05-22-2020 Fusion, spine, lumbar, XLIF Bone-screw internal spinal fixation system, non-sterile ()[id number] FDA Start: 05-22-2020 Fusion, spine, lumbar, XLIF CANCELLOUS COARSE 7.5CC FDA Start: 05-22-2020 Fusion, spine, lumbar, XLIF Bone-screw internal spinal fixation system, non-sterile ()[id number] FDA Start: 05-22-2020 Fusion, spine, lumbar, XLIF Bone-screw internal spinal fixation system, non-sterile ()[id number] FDA Start: 05-22-2020 Fusion, spine, lumbar, XLIF Polymeric spinal fusion cage, non-sterile ()[id number] FDA Start: 05-22-2020 Fusion, spine, lumbar, XLIF Dura mater graft, bovine ()[id number] FDA Start: 05-22-2020 Fusion, spine, lumbar, XLIF MAS REDUCTION FIXATION ADD LEV FDA Start: 05-22-2020 Fusion, spine, lumbar, XLIF XLIF 1 LEVEL MAS REDUCTION FDA Start: 05-22-2020 Fusion, spine, lumbar, XLIF Spinal fusion graft kit ()[id number] FDA Start: 05-22-2020 Fusion, spine, lumbar, XLIF Bone matrix implant, human-derived ()[id number] FDA Start: 05-22-2020 Fusion, spine, lumbar, XLIF Metallic spinal fusion cage, non-sterile ()[id number] FDA Start: 05-22-2020 Fusion, spine, lumbar, XLIF Bone-screw internal spinal fixation system, non-sterile ()[id number] FDA Start: 05-22-2020 Fusion, spine, lumbar, XLIF [...] Type Note Facility 03-10-2024 Note HNO ID: [id number] Author: KENAN GODOY APRN.ADDICTIONS THERAPIST Service: ? Author Type: Nurse Practitioner Type: [...] gabapentin, meloxicam, voltaren cream, heat, mdp x1 [place] - 3x/dy Studies (Reports unless indicated) Mri lumbar report Lumbarization S1 S/p :L4-S1 fusion L5/S1 mod b/l FS S1/2 paraspinal muscle mod to severe atrophy Disposition: Please schedule with dr sarmiento if patient would like soon can schedule with myself. Please instruct patient to bring copy of imaging and injection history for review. [facility] 03-10-2024 History of Present illness Narrative Per [...] gabapentin, meloxicam, voltaren cream, heat, mdp x1 [place] - 3x/dy Studies (Reports unless indicated) Mri lumbar report Lumbarization S1 S/p :L4-S1 fusion L5/S1 mod b/l FS S1/2 paraspinal muscle mod to severe atrophy Disposition: Please schedule with dr samriento if patient would like soon can schedule with myself. Please instruct patient to bring copy of imaging and injection history for review. Patient name: Kim Hill Are you being referred by a [facility] or Pain Management Provider at [facility]? No If answer is YES please [...] the facility where the MRI/CT/myelogram was completed: [place] [address] MRI/CT/myelogram viewable in Epic: No If not, please provide [phone] to fax in imaging reports for review. Also, please inform patient to hand carry imaging disc to appointment. XR (spine) within 12 months: Yes If YES, please ask for the name/address of the facility where the XR was completed: [place] [address] Dr. Freeman's patients: Have you had previous [...] therapy was completed [facility] [place] - [address] [id number] Have you tried any other kinds of non-surgical treatments in the last 12 months? (For example: NSAIDS, muscle relaxants, analgesics, oral steroids, Chiropractor, Acupuncture): gabapentin, meloxicam, voltaren cream, heat, mdp x1 4. Are you currently taking daily prescribed narcotic medications for your current symptoms (For example Oxycodone, Hydrocodone, Tramadol, Morphine, Other)? Yes [place] - 3x/dy 5. Have you had previous spinal surgery for this same symptoms? Yes If YES please ask for the name of facility/address of where the surgery was completed: [facility] cages Additional Comments [phone] documented in this encounter [facility] 03-06-2024 Note HNO ID: [id number] Author: ?, ?, ? Service: ? Author Type: ? Type: Progress Notes Filed: 03/10/2024 16:07 Note Text: Patient name: Kim Hill Are you being referred by a [facility] Spine Health Provider or Pain Management Provider at [facility]? No If answer is YES please [...] the facility where the MRI/CT/myelogram was completed: [place] [address] [id number] MRI/CT/myelogram viewable in Epic: No If not, please provide [phone] to fax in imaging reports for review. Also, please inform patient to hand carry imaging disc to appointment. XR (spine) within 12 months: Yes If YES,? please ask for the name/address of the facility where the XR was completed: [place] [address] Dr. Freeman's patients: Have you had previous [...] therapy was completed [place] [address] Have you tried any other kinds of non-surgical treatments in the last 12 months? (For example: NSAIDS, muscle relaxants, analgesics, oral steroids, Chiropractor, Acupuncture): gabapentin, meloxicam, voltaren cream, heat, mdp x1 4. Are you currently taking daily prescribed narcotic medications for your current symptoms (For example Oxycodone, Hydrocodone, Tramadol, Morphine, Other)? Yes [place] - 3x/dy 5. Have you had previous spinal surgery for this same symptoms? Yes If YES? please ask for the name of facility/address of where the surgery was completed: [facility] - 2 cages Additional Comments [phone] [facility] 10-06-2022 Note CONSULTATION CONSULTATION DATE: 10/06/2022 TO: [...] pill b.i.d. and to continue to use [place] 7.5 mg t.i.d. We did reduce the use at her last visit from 90 pills a month to 80 pills to last one month's time. She appears to be tolerating this transition quite well. I have asked her to continue with gabapentin 600 mg t.i.d. Her JOYCE on today's visit is 28. She reports the [place] does improve her quality of life, level of functioning and sleep pattern, and she denies any side effects. As part of providing excellent, safe, comprehensive care, the following was completed at our patient's visit: 1. A medication reconciliation and review to ensure accurate knowledge of current/active medications, including asking our patients to inform us about any ajwn-sqx-llxumkl medications or herbal remedies/nutritional supplements/alternative remedies. 2. [...] options with their primary care provider. [facility] 09-01-2022 Note CONSULTATION CONSULTATION DATE: 09/01/2022 [...] our patients to inform us about any zyol-zxo-wqknebw medications or herbal remedies/nutritional supplements/alternative remedies. 2. [...] options with their primary care provider. [facility] 08-17-2022 Evaluation note Encounter Date Diagnosis Assessment Notes Jul, Other chronic pain (ICD-10 - G89.29) Jul, Low back pain, unspecified (ICD-10 - M54.50) Cap That Other 02-16-2023 NoteCONSULTATION CONSULTATION DATE: 07/16/2022 HISTORY OF PRESENT ILLNESS: This is a 51-year-old female who returns to the clinic status post bilateral SI joint injection completed on 06/23/2022. The patient received 80% relief for one day and on day two felt worse than her normal baseline pain. Today, she rates her pain 8/10. Medications include gabapentin 600 mg t.i.d., [place] 7.5/325 b.i.d. and Mobic 15 mg daily. [...] her medications; Mobic 15 mg daily and [place] 7.5/325 b.i.d. She will return to the clinic in six weeks' time, in which we will, in addition to her PCPs office, review the MRI and form a plan of care at that time. Patient is in agreement to this plan.[facility] [id number] Note CONSULTATION CONSULTATION DATE: 05/29/2022 HISTORY OF [...] down. Medications include gabapentin 600 mg t.i.d., [place] 7.5/325 b.i.d. and diclofenac 50 mg daily. [...] care and will be followed up thereafter.[facility] [id number] NoteCONSULTATION CONSULTATION DATE: 05/14/2022 HISTORY OF PRESENT [...] as well as gabapentin 600 mg t.i.d., [place] 7.5/325 t.i.d. At her last appointment, she [...] Refills for gabapentin 600 mg t.i.d. and [place] 7.5/325 b.i.d. will be sent to her pharmacy. Patient agrees to move forward with the procedure. She will followed up in the clinic thereafter.[facility] [id number] NotePAIN MANAGEMENT CONSULTATION CONSULTATION DATE: 05/14/2022 CHIEF [...] with a sacroiliac joint injection under fluoroscopy.[facility] [id number] NoteCONSULTATION CONSULTATION DATE: 03/12/2022 ADDENDUM DIAGNOSIS: Lumbar spondylosis, lumbar degenerative disc disease, chronic lower back pain and a history of a lumbar fusion.[facility] [id number] Note CONSULTATION CONSULTATION DATE: 03/12/2022 This is [...] Current medications include gabapentin 600 mg t.i.d., [place] 7.5/325 b.i.d., diclofenac cream and ibuprofen. She [...] with her vitamins as well as her [place]. The dose of frequency will not be changed. We will have the patient return to the clinic in two months' time for re-evaluation. The patient is inquiring about an increase of her [place], possibly during the winter months. There will be no changes today.[facility] [id number] NoteCONSULTATION CONSULTATION DATE: 01/07/2022 This is a [...] Current medications include gabapentin 600 mg b.i.d., [place] 7.5/325 b.i.d., diclofenac topical, multivitamin regimen and ibuprofen p.r.n. She has tried diclofenac in the past but was unable to tolerate it due to stomach issues but low-dose ibuprofen she can tolerate. She is needing [place] and gabapentin refill today. REVIEW OF SYSTEMS, [...] subsequently move to the left. Refill for [place] 7.5/325 b.i.d. and gabapentin 600 mg b.i.d. will be sent to the pharmacy. The patient is encouraged to increase magnesium in her vitamin regimen as well as menthol heat rub, seated stretches that were demonstrated and heat application. The patient agrees with the plan of care and would like to move forward and she will follow-up in the clinic post procedure.[facility] HospitalEvaluation noteNo assessment information availableHarrison Community Hospital Work Phone: Evaluation noteNo InformationNortThe [facility] [employer] Other History general Narrative - Reported* Type [...] above Hospitalization History 4 child births [facility] [employer] Other Advance Directives No Advanced Directives Records [...] Relationship Condition Age at Onset Recorded Date/T garcy father Diabetes mellitus Unknown Not Specified Diabetes [...] Active Gina Guerrero MD Attending Provider Active It Lead Relationship Specialty Start Date End Date Aby Yu CNP [address] [place] [address] Referring Family Medicine 03/02/24 Goals (unrecognized section and content) Goals may be documented in a n alternate sectionGoals may be documented in an alternate sectionGoals may be documented in an alternate sectionGoals may be documented in an alternate sectionNo InformationNo Information INFORMATION SOURCE (unrecogn ized section and content) DATE CREATED AUTHOR 08/01/2022 [facility] dical Specialist DATE CREATED AUTHOR AUTHOR'S ORGANIZ ATION 11/06/2022 [facility] pital DATE CREATED AUTHOR AUTHOR'S ORGANIZ ATION 11/24/2023 [facility] DATE CREATED AUTHOR AUTHOR'S ORGANIZ ATION 03/13/2024 [facility] DATE CREATED AUTHOR AUTHOR'S ORGANIZ ATION 03/31/2024 [facility] REASON FOR VISIT (unrecogniz ed section [...] or prosecute any alcohol or drug abuse patient.[facility] FOR RECORDS PERTAINING TO PATIENTS WHO [...] BE BASED ON THE PRIMARY CLINICAL RECORDS. [employer] [facility]. provides no warranty or guarantee of the accuracy or completeness of information in this document.
[2024-04-27 01:05] LABS: Basophils Percent Auto 0.1 % (0.2-2.0); Hematocrit 39.6 % (36.0-48.0); Immature Granulocytes Abs Auto 0.06 10^3/uL (0.00-0.03); Immature Granulocytes Pct Auto 0.5 % (0.0-0.5); Lymphocytes Absolute Auto 1.3 10^3/uL (1.2-3.8); Lymphocytes Percent Auto 11.8 % (20.5-60.0); Mean Corpuscular HGB Conc 32.8 g/dL (29.9-35.2); Mean Corpuscular Hemoglobin 33.7 pg (26.7-34.0); Mean Corpuscular Volume 102.6 fL (81.0-99.0); Mean Platelet Volume 9.8 fL (9.5-13.5); Monocytes Absolute Auto 0.7 10^3/uL (0.3-0.8); Neutrophils Absolute Auto 9.2 10^3/uL (1.4-6.5); Neutrophils Percent Auto 81.6 % (43.0-75.0); Platelet Count 224 10^3/uL (150-450); Red Blood Count 3.86 10^6/uL (4.20-5.40); Red Cell Distribution Width 12.7 % (11.0-15.0); White Blood Count 11.2 10^3/uL (4.0-11.0)
[2024-04-27] MEDS: IPRATROPIUM/ALBUTEROL SULFATE 3 ML AMPUL.NEB IH ×5 (01:15→22:00)
[2024-04-27 01:20] LABS: Alanine Aminotransferase 36 U/L (14-59); Albumin Globulin Ratio 0.8; Albumin Level 3.5 g/dL (3.4-5.0); Alkaline Phosphatase 74 U/L (46-116); Anion Gap 14.8; Aspartate Amino Transferase 28 U/L (15-37); BUN Creatinine Ratio 10.2; Bilirubin Total 0.2 mg/dL (0.2-1.0); Calcium 10.1 mg/dL (8.5-10.1); Carbon Dioxide 24.4 mmol/L (21.0-32.0); Chloride 104 mmol/L (98-107); Estimated GFR (African America >60 (>=60 mL/min/1.73m^2); Estimated GFR (Non-African Ame 59 (>=60 mL/min/1.73m^2); Globulin 4.3 g/dL; Glucose 113 mg/dL (74-106); Potassium 4.2 mmol/L (3.5-5.1); Sodium 139 mmol/L (136-145); Total Protein 7.8 g/dL (6.4-8.2)
[2024-04-27 01:22] LABS: Troponin I High Sensitivity 8.6 pg/mL (4.0-51.3)
[2024-04-27] MEDS: MAGNESIUM SULFATE IN WATER 2 G/50 ML PREMIX IV (01:22)
[2024-04-27] MEDS: 0.9 % SODIUM CHLORIDE 1,000 ML 1000 ML IV (01:22)
[2024-04-27] MEDS: METHYLPREDNISOLONE SOD SUCC PF 125 MG/2 ML VIAL IVP (01:23)
[2024-04-27] MEDS: ACETAMINOPHEN 325 MG TABLET 650 MG PO (01:23)
--- NOTE | 2024-04-27 02:25 | ECG_ITS ---
[facility] Test Date: 2024-04-27 Pat Name: AKASH LIU Department: Room: - Gender: Female Director Writing: : 1970 Requested By: [id number] Order Number: [id number] Reading MD: BRITTANY MORAES Measurements Intervals [place] Rate: 113 P: 60 UT: 136 QRS: 60 QRSD: 78 T: 67 QT: 312 QTc: 379 Interpretive Statements 1120 Sinus tachycardia 9140 abnormal rhythm ECG Compared to ECG 07/11/2018 15:18:30 No significant changes Electronically Signed On 04-27-2024 19:25:33 EST by BRITTANY MORAES
[2024-04-27] MEDS: CEFTRIAXONE 1,000 MG in 0.9 % SODIUM CHLORIDE 50 ML 100 MG IV (03:15)
[2024-04-27] MEDS: AZITHROMYCIN 500 MG in 0.9 % SODIUM CHLORIDE 250 ML 250 MG IV (03:43)
--- NOTE | 2024-04-27 03:53 | PC.NURSE ---
Report called to Judy. Pt up to room per Supervisor Cook Room with IV Zithromax per pump, and telemetry.
--- OUTSIDE RECORDS SUMMARY | 2024-04-27 05:17 | XMS_ITS | CCD ---
Author Organization [facility] Care Team Providers Care Spares Scheduler Name Role Phone Roberto Roth Primary Care Provider [phone] Justice Cruz Attending Provider DO Roberto Roth Primary Care Provider MD Hood Rausch Attending Provider DO Roberto Roth Primary Care Provider [phone] CALVIN Yu Attending Provider MD Paresh Tian Attending Provider DO Roberto [...] HOOD Hernandez Attending Unavailable RAUSCH ., DR HODO Hernandez Admitting Unavailable RAUSCH ., DR HOOD [...] Gilitaitis , Aaron Musa Attending Unavailable Panda BUSTILOL, Aaron Musa Attending Unavailable Unavailable Unavailable Unavailable Allergies Allergy Classification Reported Allergen(s) Allergy Type Date of Onset Reaction(s) Facility (6 sources) Amoxicillin; Translations: [amoxicillin] Drug Allergy 0 [facility] (7 sources) Penicillins; Translations: [Penicillins] Propensity to adverse reactions 4 Nausea [facility] (6 sources) clavulanic acid; Translations: [clavulanic acid] Propensity to adverse reactions 0 [facility] (3 sources) Amoxicillin / Clavulanate; Translations: [Augmentin] Drug Allergy 4 Unknown [facility] (2 sources) Azithromycin Drug Allergy diarrhea [facility] Other (2 sources) Penicillin G Drug Allergy Unknown [facility] Other Medications Current Medications Medication Drug Class(es) Dates Sig (Normalized) Sig (Original) acetaminophen 500 mg oral tablet (4 sources) Start: 05-31-2020 take 500 mg by mouth every four hours Acetaminophen Active 500 MG PO Q4H 100 May 31, 2020 1:00am [id number] 200 actuat albuterol 0.09 mg/actuat metered dose [...] by mouth three times daily Hydrocodone-Acetami nophen ([place]) 5-325 mg Tablet Discontinued 1 TAB PO Three times daily March 18, 2019 12:00am May 23, 2020 4:59pm [place] Active azithromycin 250 mg oral tablet (4 [...] sources) High risk drug monitoring status; Translations: [USP (current) use of opiate analgesic] Episodic Other [...] by Justice Lucas on 07/31/2022 0915 Normal [facility] Automated erythrocytes count in urine sediment (number/area)Ordered By: Paresh Tian on 07-16-2022 RBC Auto (Urine sed) [#/Area] 1-2 [HPF] 0-4 [facility] Automated leukocytes count i n urine sediment (number/area)Ordered By: Paresh Tian on 07-16-2022 WBC Auto (Urine sed) [#/Area] 20-49 [HPF] 0-4 [facility] Basophils Auto (Bld) [#/Vol] Ordered By: Paresh Tian on 07-16-2022 Basophils (Bld) [#/Vol] 0.0 10*3/uL 0.0-0.2 [facility] Basophils/100 WBC Auto (Bld) Ordered By: Paresh Tian on 07-16-2022 Basophils/100 WBC (Bld) 0.4 % . F [facility] Bilirubin Test strip Ql (U)O rdered By: Paresh Tian on 07-16-2022 Bilirubin Ql (U) Negative Negative [facility] C reactive protein [Mass/vol ume] in Serum or PlasmaOrdered By: Paresh Tian on 07-16-2022 CRP [Mass/Vol] 0.8 mg/dL 0.0-1.0 [facility] Color Auto (U)Ordered By: Afia Tian on 07-16-2022 Color (U) Yellow Yellow [facility] Creatinine and Glomerular fi ltration rate.predicted panel (S/P/Bld)Ordered By: Paresh Tian on 07-16-2022 Creatinine [Mass/Vol] 0.74 mg/dL 0.44-1.03 [facility] Eosinophils Auto (Bld) [#/Vo l]Ordered By: Paresh Tian on 07-16-2022 Eosinophils (Bld) [#/Vol] 0.1 10*3/uL 0.0-0.45 [facility] Eosinophils/100 WBC Auto (Bl d)Ordered By: Paresh Tian on 07-16-2022 Eosinophils/100 WBC (Bld) 1.1 % . [facility] Erythrocyte distribution wid th Auto (RBC) [Ratio]Ordered By: Paresh Tian on 07-16-2022 Erythrocyte distribution width (RBC) [Ratio] 13.0 % 11.9-15.3 [facility] Erythrocyte sedimentation ra te by Photometric methodOrdered By: Paresh Tian on 07-16-2022 ESR Photometric method (Bld) [Velocity] 45 mm/hr 0-29 [facility] Estimated glomerular filtrat ion rate (GFR) non- AmericanOrdered By: Paresh Tian on 07-16-2022 GFR/1.73 sq M.predicted among non-blacks MDRD (S/P/Bld) [Vol rate/Area] > 60 mL/Min [facility] Hematocrit Auto (Bld) [Volum e fraction]Ordered By: Paresh Tian on 07-16-2022 Hematocrit (Bld) [Volume fraction] 45.3 % 34.0-46.4 [facility] Hemoglobin [Mass/volume] in BloodOrdered By: Paresh Tian on 07-16-2022 Hemoglobin (Bld) [Mass/Vol] 15.2 g/dL 11.8-15.4 [facility] Ketones Auto test strip (U) [Mass/Vol]Ordered By: Paresh Tian on 07-16-2022 Ketones (U) [Mass/Vol] Negative Negative [facility] - UrinalysisOrder ed By: Paresh Tian on 07-16-2022 Hyaline casts LM Ql (Urine sed) 0-8 [LPF] 0-8 [facility] Leukocytes [#/volume] correc scot for nucleated erythrocytes in Blood by Automated counOrdered By: Paresh Tian on 07-16-2022 WBC corrected for nucl RBC Auto (Bld) [#/Vol] 10.4 10*3/uL 3.8-11.6 [facility] Lymphocytes Auto (Bld) [#/Vo l]Ordered By: Paresh Tian on 07-16-2022 Lymphocytes (Bld) [#/Vol] 3.7 10*3/uL 1.00-4.8 [facility] Lymphocytes/100 WBC Auto (Bl d)Ordered By: Paresh Tian on 07-16-2022 Lymphocytes/100 WBC (Bld) 35.0 % . [facility] MCH Auto (RBC) [Entitic mass ]Ordered By: Paresh Tian on 07-16-2022 MCH (RBC) [Entitic mass] 33.8 pg 24.7-34.3 [facility] MCHC Auto (RBC) [Mass/Vol]Or dered By: Paresh Tian on 07-16-2022 MCHC (RBC) [Mass/Vol] 33.6 g/dL 32.0-35.0 [facility] MCV Auto (RBC) [Entitic vol] Ordered By: Paresh Tian on 07-16-2022 MCV (RBC) [Entitic vol] 100.6 fL 80-100 [facility] Mitotic spindle apparatus Ab [Titer] in Serum or Plasma by ImmunofluorescenceOrdered By: Paresh Tian on 07-16-2022 Mitotic spindle apparatus Ab IF [Titer] 1:160 . [facility] Comment on above: ICAP nomenclature: A C-25,26 Monocytes Auto (Bld) [#/Vol] Ordered By: Paresh Tian on 07-16-2022 Monocytes (Bld) [#/Vol] 0.7 10*3/uL 0.0-0.8 [facility] Monocytes/100 WBC Auto (Bld) Ordered By: Paresh Tian on 07-16-2022 Monocytes/100 WBC (Bld) 6.8 % . F [facility] Neutrophils Auto (Bld) [#/Vo l]Ordered By: aPresh Tian on 07-16-2022 Neutrophils (Bld) [#/Vol] 5.9 10*3/uL 1.8-7.7 [facility] Neutrophils/100 WBC Auto (Bl d)Ordered By: Paresh Tian on 07-16-2022 Neutrophils/100 WBC (Bld) 56.7 % . [facility] Nitrite Test strip Ql (U)Ord ered By: Paresh Tian on 07-16-2022 Nitrite Ql (U) Negative Negative [facility] No Panel InformationOrdered By: Paresh Tian on 07-16-2022 Anti-Nuclear Antibody Comment 2 See comment . [facility] Comment on above: For more information about Hep-2 cell patterns useGRAVIDIpatterns.org, the official website for the InternationalConsensus on Antinuclear Antibody (ASTER) Patterns (ICAP). --------A positive ASTER result may occur in healthy individuals (lowtiter) or be associated with a variety of diseases. Seeinterpretation chart which is not all inclusive:Pattern Antigen Detected Suggested Disease Association Homogeneous DNA(ds,ss), SLE - High titers Nucleosomes, Histones Drug-induced SLE Speckled Sm, ROLE PLAYER, SCL-70, SLE,MCTD,PSS (diffuse form), SS-A/SS-B Sjogrens Nucleolar SCL-70, PM-1/SCL High titers Scleroderma, PM/DM Centromere Centromere PSS (limited form) w/Crest syndrome variable Nuclear Dot Sp100,[id number] Primary Biliary Cirrhosis Nuclear GP210, Primary Biliary CirrhosisMembrane kailyn A,B,C Performed at: [facility] [id number] Director: Collin Rodriguez PhD, Phone: [phone] Estimated GFR () > 60 mL/Min [facility] Comment on above: GFR estimated refere nce range: According to KDOQI guidelines, <60 ml/min/1.73m2 is sufficient to diagnose a patient with chronic kidney disease. Pharmacy Creatinine Clearance (Chem N/A [facility] Total Complement (CH50) >60 U/mL >41 [facility] Comment on above: Age Male Female 1 [...] to determine out of range values.Performed at: [facility] [id number] Director: Collin Rodriguez PhD, Phone: [phone] Nucleated erythrocytes [Pres ence] in Blood by Automated countOrdered By: Paresh Tian on 07-16-2022 Nucleated RBC Auto Ql (Bld) 0.1 /100{WBC} 0-0.5 [facility] Platelet mean volume Auto (B ld) [Entitic vol]Ordered By: Paresh Tian on 07-16-2022 Platelet mean volume (Bld) [Entitic vol] 8.4 fL 6.3-10.7 [facility] Platelets Auto (Bld) [#/Vol] Ordered By: Paresh Tian on 07-16-2022 Platelets (Bld) [#/Vol] 242 10*3/uL 150-450 [facility] Protein Auto test strip (U) [Mass/Vol]Ordered By: Paresh Tian on 07-16-2022 Protein (U) [Mass/Vol] Negative Negative [facility] RBC Auto (Bld) [#/Vol]Ordere d By: Paresh Tian on 07-16-2022 RBC (Bld) [#/Vol] 4.50 10*6/uL 3.60-5.00 [facility] Serum homogeneous pattern an tinuclear antibody (ASTER) titerOrdered By: Paresh Tian on 07-16-2022 Homogenous nuclear Ab pattern (S) [Titer] N/A [facility] Serum nuclear antibody titer Ordered By: Paresh Tian on 07-16-2022 Nuclear Ab (S) [Titer] Positive . [facility] Comment on above: Negative <1:80 Borde rline 1:80 Positive >1:80 Serum or plasma complement C 3 measurement (mass/volume)Ordered By: Paresh Tian on 07-16-2022 Complement C3 [Mass/Vol] 197 mg/dL 82-167 [facility] Comment on above: Performed at: [facility] Director: Collin Rodriguez PhD, Phone: [phone] Serum or plasma complement C 4 measurement (mass/volume)Ordered By: Paresh Tian on 07-16-2022 Complement C4 [Mass/Vol] 42 mg/dL 12-38 [facility] Specific gravity Auto test s trip (U) [Rel density]Ordered By: Paresh Tian on 07-16-2022 Specific gravity (U) [Rel density] 1.018 1.001-1.03 0 [facility] Squamous epithelial cells de tection in urine sediment by light microscopyOrdered By: Paresh Tian on 07-16-2022 Epithelial cells.squamous LM Ql (Urine sed) 0-1 [HPF] 0-2 [facility] Urine bacteria detection by automated methodOrdered By: Paresh Tian on 07-16-2022 Bacteria Auto Ql (U) 4+ None Seen [facility] Urine clarity by refractomet ry automatedOrdered By: Paresh Tian on 07-16-2022 Clarity Refractometry automated (U) Clear Clear [facility] Urine culture routineOrdered By: Paresh Tian on 07-16-2022 Bacteria identified Cx Nom (U) Escherichia coli [facility] Urine glucose measurement by automated test strip (mass/volume)Ordered By: Paresh Tian on 07-16-2022 Glucose Auto test strip (U) [Mass/Vol] Normal mg/dL Normal [facility] Urine hemoglobin detection b y automated test stripOrdered By: Paresh Tian on 07-16-2022 Hemoglobin Auto test strip Ql (U) Negative Negative [facility] Urine leukocyte esterase det ection by automated test stripOrdered By: Paresh Tian on 07-16-2022 Leukocyte esterase Auto test strip Ql (U) 3+ Negative [facility] Urobilinogen Auto test strip (U) [Mass/Vol]Ordered By: Paresh Tian on 07-16-2022 Urobilinogen (U) [Mass/Vol] Normal mg/dL Normal [facility] WBC Auto (Bld) [#/Vol]Ordere d By: Paresh Tian on 07-16-2022 WBC (Bld) [#/Vol] 10.4 10*3/uL 3.8-11.6 [facility] pH Auto test strip (U)Ordere d By: Paresh Tian on 07-16-2022 pH (U) 6.5 [pH] 5.0-9.0 [facility] XR HIPS ZEINA 3_4V WO PELVISon 05-15-2022 [...] DASHA KHAN Date: 2022-05-15 07:49 Normal [facility] Covid-19 PCR (CVDTBH)on SARS-CoV-2 (COVID-19) RNA AMBERLY+probe Ql (Unsp spec) Not detected Normal NOT DETECTED [facility] Comment on above: Result Comment: This test is not yet approved or cleared by the [place] FDA. When there are no FDA-approved or cleared tests available, and other criteria are met, FDA can make tests available under an emergency access mechanism called an Emergency Use Authorization (EUA). The EUA for this test is supported by the [place] of Health and Human Service's (HHS's) declaration [...] SARS-CoV-2. Performed By: #### C [facility] #### [facility] [address] [place] [address] Dr. Narendra Jacobsen COVID-19 Positive/NegativeOr dered By: Baljinder Rausch on 01-31-2022 SARS-CoV-2 (COVID-19) N gene AMBERLY+probe Ql (Resp) Negative Negative [facility] Comment on above: Testing for SARS-CoV -2 by RT-PCR This test was developed and its performance characteristics determined by [employer] ([place]) and validated at the [facility]. This test has not been FDA cleared [...] COVID-19 Positive/Negativeon 05-20-2020 COVID-19 Positive/Negative Negative Negative [facility] Comment on above: Testing for SARS-CoV -2 by RT-PCRThis test was developed and its performance characteristics determined by [employer] ([employer]) and validated at the [facility]. This test has not been FDA cleared [...] Otheron 05-20-2020 Coronavirus 2019 PCR Interp N/A [facility] Automated basophil %on 05-14 Basophils/100 WBC (Bld) 0.5 % F [facility] Automated basophil counton 1 07-15-2019 Basophils (Bld) [#/Vol] 0.0 10*3/uL 0.0-0.2 [facility] Automated blood lymphocyte c ount (number/volume)on 05-14-2020 Lymphocytes (Bld) [#/Vol] 2.8 10*3/uL 1.00-4.8 [facility] Automated blood lymphocyte c ount as percentage of total leukocyteson 05-14-2020 Lymphocytes/100 WBC (Bld) 35.0 % [facility] Automated blood monocyte cou nton 05-14-2020 Monocytes (Bld) [#/Vol] 0.6 10*3/uL 0.0-0.8 [facility] Automated blood platelet cou nt (count/volume)on 05-14-2020 Platelets (Bld) [#/Vol] 225 10*3/uL 150-450 [facility] Automated blood platelet jose n volume measurementon 05-14-2020 Platelet mean volume (Bld) [Entitic vol] 8.2 fL 6.3-10.7 [facility] Automated eosinophil %on Eosinophils/100 WBC (Bld) 1.5 % [facility] Automated eosinophil counton 05-14-2020 Eosinophils (Bld) [#/Vol] 0.1 10*3/uL 0.0-0.45 [facility] Automated erythrocyte distri bution width ratioon 05-14-2020 Erythrocyte distribution width (RBC) [Ratio] 12.3 % 11.9-15.3 [facility] Automated erythrocyte mean c orpuscular hemoglobin (mass per erythrocyte)on 05-14-2020 MCH (RBC) [Entitic mass] 35.2 pg 24.7-34.3 [facility] Automated erythrocyte mean c orpuscular hemoglobin concentration measurement (mass/volon 05-14-2020 MCHC (RBC) [Mass/Vol] 34.2 g/dL 32.0-35.0 [facility] Automated erythrocyte mean c orpuscular volumeon 05-14-2020 MCV (RBC) [Entitic vol] 102.9 fL 80-100 F [facility] Automated monocyte %on 05-14 Monocytes/100 WBC (Bld) 7.0 % F [facility] Automated neutrophil %on Neutrophils/100 WBC (Bld) 56.0 % [facility] Blood erythrocytes automated count (number/volume)on 05-14-2020 RBC (Bld) [#/Vol] 4.08 10*6/uL 3.60-5.00 [facility] Blood hemoglobin measurement (mass/volume)on 05-14-2020 Hemoglobin (Bld) [Mass/Vol] 14.3 g/dL 11.8-15.4 [facility] Blood leukocytes automated c ount (number/volume)on 05-14-2020 WBC (Bld) [#/Vol] 7.9 10*3/uL 4.5-11.0 [facility] Blood neutrophil count by au tomated method (number/volume)on 05-14-2020 Neutrophils (Bld) [#/Vol] 4.4 10*3/uL 1.8-7.7 [facility] Estimated glomerular filtrat ion rate (GFR) non- Americanon 05-14-2020 GFR/1.73 sq M predicted among non-blacks MDRD (S/P/Bld) [Vol rate/Area] mL/min/{1.73_m2} [facility] Hematocrit [Volume Fraction] of Blood by Automated counton 05-14-2020 Hematocrit (Bld) [Volume fraction] 41.9 % 34.0-46.4 [facility] Otheron 05-14-2020 GFR/1.73 sq M.predicted MDRD (S/P/Bld) [Vol rate/Area] mL/min/{1.73_m2} [facility] Comment on above: GFR estimated refere nce range: According to KDOQI guidelines, <60 ml/min/1.73m2 is sufficient to diagnose a patient with chronic kidney disease. Nucleated RBC/100 WBC (Bld) [Ratio] 0.1 % 0-0.5 [facility] Creatinine Clearance (Chem N/A [facility] Serum or plasma calcium octavio urement (mass/volume)on 05-14-2020 Calcium [Mass/Vol] 10.1 mg/dL 8.2-10.2 [facility] Serum or plasma chloride jose surement (moles/volume)on 05-14-2020 Chloride [Moles/Vol] 101 mmol/L 95-114 [facility] Serum or plasma creatinine m easurement with calculation of estimated glomerular filtron 05-14-2020 Creatinine [Mass/Vol] 0.60 mg/dL 0.44-1.03 [facility] Serum or plasma glucose octavio urement (mass/volume)on 05-14-2020 Glucose [Mass/Vol] 94 mg/dL 70-100 [facility] Comment on above: ADA recommended refe rence rangeRandom Glucose Reference Range is dependent on time and content of last meal. Glucose of more than 200 mg/dL in a nonstressed, ambulatory subject supports the diagnosis of Diabetes Mellitus. Serum or plasma potassium me asurement (moles/volume)on 05-14-2020 Potassium [Moles/Vol] 4.3 mmol/L 3.5-5.1 [facility] Serum or plasma sodium measu rement (moles/volume)on 05-14-2020 Sodium [Moles/Vol] 140 mmol/L 136-146 [facility] Serum or plasma total carbon dioxide measurement (moles/volume)on 05-14-2020 CO2 [Moles/Vol] 27.2 mmol/L 22.0-30.0 [facility] Serum or plasma urea nitroge n measurement (mass/volume)on 05-14-2020 Urea nitrogen [Mass/Vol] 7 mg/dL 9- [facility] Vital Signs Date Time Vital Sign Value Performing Clinician Facility 08-17-2022 16:00-0400 Body height 160.02 cm Gina Blades Other [facility] Other 08-17-2022 16:00-0400 Body mass index (BMI) [Ratio] 40.56 kg/m2 Gina Blades Other [facility] Other 08-17-2022 16:00-0400 Body weight 103.87 kg Gina Blades Other [facility] Other 08-17-2022 16:00-0400 Diastolic blood pressure 82 mm[Hg] Gina Blades Other [facility] Other 08-17-2022 16:00-0400 Systolic blood pressure 126 mm[Hg] Gina Blades Other [facility] Other Encounters Encounter Date Encounter Type Care [...] 09-08-2022 End: 09-08-2022 ambulatory Gina Blades Other [facility] Other Start: 09-08-2022 Telephone encounter Gina Blades [facility] Start: 09-01-2022 End: 09-02-2022 ambulatory NARENDRANATH LAKSHMIPATHY . Facility: Start: 08-17-2022 End: 08-17-2022 Patient encounter procedure DO Roberto Roth Work Phone: [facility] [address] [place] Work Phone: Start: 08-17-2022 End: 08-17-2022 ambulatory DO Roberto Roth Work Phone: [facility] Work Phone: Start: 08-17-2022 Office outpatient ne w 45 minutes Gina Blades [facility] Start: 07-16-2022 End: 07-17-2022 ambulatory DO Roberto Roth Work Phone: [facility] Work Phone: Start: 07-16-2022 End: 07-16-2022 Patient encounter procedure DO Roberto Roth Work Phone: [facility] [address] Work Phone: Start: 07-03-2022 End: 07-03-2022 ambulatory DO Rboerto Roth Work Phone: [facility] Work Phone: Start: 07-03-2022 End: 07-03-2022 Patient encounter procedure DO Roberto Roth Work Phone: [facility] [place] Work Phone: Start: 06-23-2022 End: 06-23-[address] HOOD RAUSCH . Facility:[facility] Start: 05-29-2022 End: 05-30-[address] HOOD RAUSCH . Facility:[facility] Start: 05-14-2022 End: 05-15-2022 ambulatory ADA SINGH . Facility:[facility] Start: 03-12-2022 End: 03-13-[address] HOOD RAUSCH . Facility:[facility] Start: 02-13-2022 Encounter for preprocedural laboratory examination DR HOOD RAUSCH . [facility] Start: 02-10-2022 End: 02-10-[address] HOOD RAUSCH . Facility:[facility] Start: 02-06-2022 End: 02-07-[address] HOOD RAUSCH . Facility:[facility] Start: 02-06-2022 End: 02-07-2022 Encounter for preprocedural laboratory examination DR HOOD RAUSCH . Facility:[facility] Start: 02-03-2022 End: 02-03-[address] HOOD RAUSCH . Facility:[facility] Start: 01-31-2022 End: 01-31-2022 Patient encounter procedure DO Roberto Roth Work Phone: [facility] Start: 01-16-[address] HOOD RAUSCH . Faci lity:[facility] Start: 01-07-2022 End: 01-08-[address] HOOD RAUSCH . Facility:[facility] Start: 05-20-2020 End: 05-20-2020 Patient encounter procedure Roberto Roth -Pre-Surgical Testing Start: 05-14-2020 End: 05-14-2020 Patient encounter procedure Roberto Roth -Pre-Surgical Testing Start: 04-26-2020 End: 04-26-2020 Patient encounter procedure Roberto Roth -[facility] [place] Procedures Date Procedure Procedure Detail Performing Clinician [...] p RT min 2V(w/wo pelvis)* [facility] Start: 08-17-2022 XR Hip - right 2 Views [facility] Start: 07-16-2022 Bacteria identified in Urine by Culture [facility] Start: 07-16-2022 Hemolytic complement CH50 level [facility] Start: 07-16-2022 [facility] Complement C3 [Mass/volume] in Serum or Plasma [facility] Complement C4 [Mass/volume] in Serum or Plasma [facility] Homogenous nuclear A b pattern [Titer] in Serum [facility] Nuclear Ab [Titer] i n Serum [facility] Immunizations Immunization Date Immunization Notes Care Provider Fa cility 11-09-2020 COVID-19 mRNA-1273 (Moderna) DO Roberto Roth Work Phone: [facility] 10-12-2020 COVID-19 mRNA-1273 (Moderna) DO Roberto Roth Work Phone: [facility] 05-23-2020 influenza, injectabl e, quadrivalent, preservative free DO Roberto Roth Work Phone: [facility] Payers Date Payer Category Payer Unknown [id number] 2022 Self-pay [id number] 1968 Unknown [id number] 2.16.84 [id number] 1968 Unknown [id number] 2.16.84 0.1.917550.3.579.2.593 1968 Unknown [id number] 2.16.84 0.1.342799.3.579.2.593 1968 Unknown [id number] 2.16.84 0.1.205088.3.579.2.593 1968 Unknown [id number] 2.16.84 0.1.509069.3.579.2.593 1968 Unknown [id number] 2.16.84 0.1.863571.3.579.2.593 1968 Unknown [id number] 2.16.84 0.1.471748.3.579.2.593 1968 Unknown [id number] 2.16.84 0.1.507381.3.579.2.593 1968 Unknown [id number] 2.16.84 0.1.474883.3.579.2.593 1968 Unknown [id number] 2.16.84 0.1.457571.3.579.2.593 1968 Unknown [id number] 2.16.84 0.1.669298.3.579.2.593 1968 Unknown [id number] 2.16.84 0.1.021384.3.579.2.593 1968 Unknown [id number] 2.16.84 0.1.021542.3.579.2.593 1968 Unknown [id number] 2.16.84 0.1.974213.3.579.2.593 1968 Unknown [id number] 2.16.84 0.1.845523.3.579.2.593 1968 Unknown [id number] 2.16. 840.1.776887.3.579.2.196 1968 Unknown [id number] 2.16. 840.1.810980.3.579.2.196 1959 Unknown [id number] Unknown [id number] Unknown [id number] 2.16.8 40.1.005947.3.579.2.531 Social History Date Type Detail Facility Start: 05-14-2020 End: 06-23-2021 Tobacco [facility] status [facility] [facility] Start: 1970 Sex Assigned At Female F [facility] Start: 06-23-1987 History of tobacco use [facility] Work Phone: Tobacco smoking status RUST Tobacco smoking consumption unknown [facility] Start: 1970 Sex assigned at Not on file C [facility] Medical Equipment Procedure Code Equipment Code Equipment Origin al Text Equipment Identifier Dates Fusion, spine, lumbar, XLIF CANCELLOUS COARSE 7.5CC FDA Start: 05-22-2020 Fusion, spine, lumbar, XLIF Bone-screw internal spinal fixation system, non-sterile ()[id number] FDA Start: 05-22-2020 Fusion, spine, lumbar, XLIF Bone-screw internal spinal fixation system, non-sterile ()[id number] FDA Start: 05-22-2020 Fusion, spine, lumbar, XLIF Bone-screw internal spinal fixation system, non-sterile ()[id number] FDA Start: 05-22-2020 Fusion, spine, lumbar, XLIF CANCELLOUS COARSE 7.5CC FDA Start: 05-22-2020 Fusion, spine, lumbar, XLIF Bone-screw internal spinal fixation system, non-sterile ()[id number] FDA Start: 05-22-2020 Fusion, spine, lumbar, XLIF Bone-screw internal spinal fixation system, non-sterile ()[id number] FDA Start: 05-22-2020 Fusion, spine, lumbar, XLIF Polymeric spinal fusion cage, non-sterile ()[id number] FDA Start: 05-22-2020 Fusion, spine, lumbar, XLIF Dura mater graft, bovine ()[id number] FDA Start: 05-22-2020 Fusion, spine, lumbar, XLIF MAS REDUCTION FIXATION ADD LEV FDA Start: 05-22-2020 Fusion, spine, lumbar, XLIF XLIF 1 LEVEL MAS REDUCTION FDA Start: 05-22-2020 Fusion, spine, lumbar, XLIF Spinal fusion graft kit [id number] FDA Start: 05-22-2020 Fusion, spine, lumbar, XLIF Bone matrix implant, human-derived ()[id number] FDA Start: 05-22-2020 Fusion, spine, lumbar, XLIF Metallic spinal fusion cage, non-sterile ()[id number] FDA Start: 05-22-2020 Fusion, spine, lumbar, XLIF Bone-screw internal spinal fixation system, non-sterile ()[id number] FDA Start: 05-22-2020 Fusion, spine, lumbar, XLIF [...] Type Note Facility 03-10-2024 Note HNO ID: [id number] Author: KENAN GODOY APRN.CAPACITOR PACK PRESS OPERATOR Service: ? Author Type: Nurse Practitioner [...] gabapentin, meloxicam, voltaren cream, heat, mdp x1 Chicora - 3x/dy Studies (Reports unless indicated) Mri lumbar report Lumbarization S1 S/p :L4-S1 fusion L5/S1 mod b/l FS S1/2 paraspinal muscle mod to severe atrophy Disposition: Please schedule with dr sarmiento if patient would like soon can schedule with myself. Please instruct patient to bring copy of imaging and injection history for review. [facility] 03-10-2024 History of Present illness Narrative [...] gabapentin, meloxicam, voltaren cream, heat, mdp x1 Chicora - 3x/dy Studies (Reports unless indicated) Mri [...] Health Provider or Pain Management Provider at [facility]? No If answer is YES please [...] the facility where the MRI/CT/myelogram was completed: [place] [address] MRI/CT/myelogram viewable in Epic: No If not, please provide [phone] to fax in imaging reports for review. Also, please inform patient to hand carry imaging disc to appointment. XR (spine) within 12 months: Yes If YES, please ask for the name/address of the facility where the XR was completed: [place] [address] Dr. Freeman's patients: Have you had previous [...] therapy was completed [facility] - [address] [id number] Have you tried any other kinds of non-surgical treatments in the last 12 months? (For example: NSAIDS, muscle relaxants, analgesics, oral steroids, Chiropractor, Acupuncture): gabapentin, meloxicam, voltaren cream, heat, mdp x1 4. Are you currently taking daily prescribed narcotic medications for your current symptoms (For example Oxycodone, Hydrocodone, Tramadol, Morphine, Other)? Yes Chicora - 3x/dy 5. Have you had previous spinal surgery for this same symptoms? Yes If YES please ask for the name of facility/address of where the surgery was completed: [facility] cages Additional Comments [phone] documented in this encounter [facility] 03-06-2024 Note HNO ID: [id number] Author: ?, ?, ? Service: ? Author Type: ? Type: Progress Notes Filed: 03/10/2024 16:07 Note Text: Patient name: Kim Hill Are you being referred by a [facility] Spine Health Provider or Pain Management Provider at [facility]? No If answer is YES please [...] the facility where the MRI/CT/myelogram was completed: [place] [address] [id number] MRI/CT/myelogram viewable in Epic: No If not, please provide [phone] to fax in imaging reports for review. Also, please inform patient to hand carry imaging disc to appointment. XR (spine) within 12 months: Yes If YES,? please ask for the name/address of the facility where the XR was completed: [place] [address] Dr. Freeman's patients: Have you had previous [...] therapy was completed [place] [place] [address] Have you tried any other kinds of non-surgical treatments in the last 12 months? (For example: NSAIDS, muscle relaxants, analgesics, oral steroids, Chiropractor, Acupuncture): gabapentin, meloxicam, voltaren cream, heat, mdp x1 4. Are you currently taking daily prescribed narcotic medications for your current symptoms (For example Oxycodone, Hydrocodone, Tramadol, Morphine, Other)? Yes Chicora - 3x/dy 5. Have you had previous spinal surgery for this same symptoms? Yes If YES? please ask for the name of facility/address of where the surgery was completed: [facility] - 2 cages Additional Comments [phone] [facility] 10-06-2022 Note CONSULTATION CONSULTATION DATE: 10/06/2022 [...] pill b.i.d. and to continue to use Chicora 7.5 mg t.i.d. We did reduce the use at her last visit from 90 pills a month to 80 pills to last one month's time. She appears to be tolerating this transition quite well. I have asked her to continue with gabapentin 600 mg t.i.d. Her JOYCE on today's visit is 28. She reports the Chicora does improve her quality of life, level of functioning and sleep pattern, and she denies any side effects. As part of providing excellent, safe, comprehensive care, the following was completed at our patient's visit: 1. A medication reconciliation and review to ensure accurate knowledge of current/active medications, including asking our patients to inform us about any [id number] medications or herbal remedies/nutritional supplements/alternative remedies. 2. [...] options with their primary care provider. [facility] 09-01-2022 Note CONSULTATION CONSULTATION DATE: 09/01/2022 TO: [...] our patients to inform us about any [id number] medications or herbal remedies/nutritional supplements/alternative remedies. 2. [...] options with their primary care provider. [facility] 08-17-2022 Evaluation note Encounter Date Diagnosis Assessment Notes Jul, Other chronic pain (ICD-10 - G89.29) Jul, Low back pain, unspecified (ICD-10 - M54.50) [employer] Other 02-16-2023 NoteCONSULTATION CONSULTATION DATE: 07/16/2022 HISTORY OF PRESENT ILLNESS: This is a 51-year-old female who returns to the clinic status post bilateral SI joint injection completed on 06/23/2022. The patient received 80% relief for one day and on day two felt worse than her normal baseline pain. Today, she rates her pain 8/10. Medications include gabapentin 600 mg t.i.d., Chicora 7.5/325 b.i.d. and Mobic 15 mg daily. [...] her medications; Mobic 15 mg daily and Chicora 7.5/325 b.i.d. She will return to the clinic in six weeks' time, in which we will, in addition to her PCPs office, review the MRI and form a plan of care at that time. Patient is in agreement to this plan.[id number] Note CONSULTATION CONSULTATION DATE: 05/29/2022 HISTORY OF [...] down. Medications include gabapentin 600 mg t.i.d., Chicora 7.5/325 b.i.d. and diclofenac 50 mg daily. [...] care and will be followed up thereafter.[id number] NoteCONSULTATION CONSULTATION DATE: 05/14/2022 HISTORY OF PRESENT [...] as well as gabapentin 600 mg t.i.d., Chicora 7.5/325 t.i.d. At her last appointment, she [...] Refills for gabapentin 600 mg t.i.d. and Chicora 7.5/325 b.i.d. will be sent to her pharmacy. Patient agrees to move forward with the procedure. She will followed up in the clinic thereafter.[id number] NotePAIN MANAGEMENT CONSULTATION CONSULTATION DATE: 05/14/2022 CHIEF [...] with a sacroiliac joint injection under fluoroscopy.[id number] NoteCONSULTATION CONSULTATION DATE: 03/12/2022 ADDENDUM DIAGNOSIS: Lumbar spondylosis, lumbar degenerative disc disease, chronic lower back pain and a history of a lumbar fusion.[id number] Note CONSULTATION CONSULTATION DATE: 03/12/2022 This is [...] Current medications include gabapentin 600 mg t.i.d., Chicora 7.5/325 b.i.d., diclofenac cream and ibuprofen. She [...] with her vitamins as well as her Chicora. The dose of frequency will not be changed. We will have the patient return to the clinic in two months' time for re-evaluation. The patient is inquiring about an increase of her Chicora, possibly during the winter months. There will be no changes today.[id number] NoteCONSULTATION CONSULTATION DATE: 01/07/2022 This is a [...] Current medications include gabapentin 600 mg b.i.d., Chicora 7.5/325 b.i.d., diclofenac topical, multivitamin regimen and ibuprofen p.r.n. She has tried diclofenac in the past but was unable to tolerate it due to stomach issues but low-dose ibuprofen she can tolerate. She is needing Chicora and gabapentin refill today. REVIEW OF SYSTEMS, [...] subsequently move to the left. Refill for Chicora 7.5/325 b.i.d. and gabapentin 600 mg b.i.d. will be sent to the pharmacy. The patient is encouraged to increase magnesium in her vitamin regimen as well as menthol heat rub, seated stretches that were demonstrated and heat application. The patient agrees with the plan of care and would like to move forward and she will follow-up in the clinic post procedure.[facility] noteNo assessment information availableAshtabula [facility] Medical Center Work Phone: Evaluation noteNo InformationNortUPMC [facility]obo Other History general Narrative - Reported* Type [...] see above Hospitalization History 4 child births [facility] [employer] Other Advance Directives No Advanced Directives Records [...] Active Gina Guerrero MD Attending Provider Active Spares Scheduler Relationship Specialty Start Date End Date Aby Yu CNP [address] [place] [address] Referring Family Medicine 03/02/24 Goals (unrecognized section and content) Goals may be documented in a n alternate sectionGoals may be documented in an alternate sectionGoals may be documented in an alternate sectionGoals may be documented in an alternate sectionNo InformationNo Information INFORMATION SOURCE (unrecogn ized section and content) DATE CREATED AUTHOR 08/01/2022 [facility] dical Specialist DATE CREATED AUTHOR AUTHOR'S ORGANIZ ATION 11/06/[address] [facility] pital DATE CREATED AUTHOR AUTHOR'S ORGANIZ ATION 11/24/2023 [facility] DATE CREATED AUTHOR AUTHOR'S ORGANIZ ATION 03/13/2024 [facility] DATE CREATED AUTHOR AUTHOR'S ORGANIZ ATION 03/31/2024 [facility] REASON FOR VISIT (unrecogniz ed section [...] or prosecute any alcohol or drug abuse patient.[facility] FOR RECORDS PERTAINING TO PATIENTS WHO ARE [...] BE BASED ON THE PRIMARY CLINICAL RECORDS. [facility] [facility]. provides no warranty or guarantee of the accuracy or completeness of information in this document.
[2024-04-27] MEDS: GABAPENTIN 300 MG CAPSULE 600 MG PO ×3 (05:42→21:43)
[2024-04-27] MEDS: LISINOPRIL 10 MG TABLET PO (05:43)
[2024-04-27] MEDS: MELOXICAM 7.5 MG TABLET 15 MG PO (05:43)
[2024-04-27] MEDS: BACLOFEN 10 MG TABLET PO ×3 (05:43→21:43)
[2024-04-27] MEDS: OMEPRAZOLE 20 MG CAPSULE.DR PO (05:43)
[2024-04-27] MEDS: HYDROCODONE/ACETAMINOPHEN 7.5-325 MG/15 ML CUP 7.5 MG PO (05:45)
[2024-04-27 06:14] LABS: PCO2 VBG 41.4 mmHg (40.0-52.0); pH VBG 7.381 (7.330-7.430)
[2024-04-27 06:18] LABS: Hematocrit 38.8 % (36.0-48.0); Hemoglobin 12.7 g/dL (12.0-16.0); Mean Corpuscular HGB Conc 32.7 g/dL (29.9-35.2); Mean Corpuscular Hemoglobin 33.4 pg (26.7-34.0); Mean Corpuscular Volume 102.1 fL (81.0-99.0); Platelet Count 218 10^3/uL (150-450); Red Cell Distribution Width 12.7 % (11.0-15.0); White Blood Count 10.5 10^3/uL (4.0-11.0)
[2024-04-27 06:24] LABS: Anion Gap 18.4; BUN Creatinine Ratio 8.9; Calcium 9.3 mg/dL (8.5-10.1); Carbon Dioxide 23.7 mmol/L (21.0-32.0); Chloride 106 mmol/L (98-107); Estimated GFR (African America >60 (>=60 mL/min/1.73m^2); Estimated GFR (Non-African Ame >60 (>=60 mL/min/1.73m^2); Glucose 133 mg/dL (74-106); Potassium 4.1 mmol/L (3.5-5.1); Sodium 144 mmol/L (136-145)
[2024-04-27 06:33] LABS: Troponin I High Sensitivity 14.7 pg/mL (4.0-51.3)
[2024-04-27] MEDS: METHYLPREDNISOLONE SOD SUCC PF 40 MG/ML VIAL IVP ×3 (06:52→22:00)
[2024-04-27] MEDS: ENOXAPARIN SODIUM 40 MG/0.4 ML SYRINGE SUBQ (09:41)
--- NOTE | 2024-04-27 11:49 | PM.HP ---
HPI H&P: HPI History of Present Illness Chief complaint: SOB, PNEUMONIA INFLUENZA Narrative: 53 y o female with hx of severe persistent asthma presented to ED with worsening SOB/cough x 5 days. Patient report generalized malaise, body aches, fever with chills along with worsening shortness of breath and productive cough for 5 days. She was seen by her primary care physician on Wednesday who tested her for influenza and COVID. Patient tested positive for influenza and was prescribed azithromycin and prednisone asthma exacerbation. She did not receive Tamiflu for influenza infection. Patient reports that her shortness of breath and wheezing continued to get worse so she decided to come to ED last night. In ER, patient was found to have acute respiratory distress with increased work of breathing, tachypnea. Her workup revealed right middle lobe pneumonia and asthma exacerbation for which she was admitted overnight and started on inhaled DuoNebs, IV Rocephin and azithromycin along with systemic steroids. Earlier today when I evaluated her, she was still short of breath at rest, was tachypneic and was unable to converse due to dyspnea. She was also struggling with productive cough during exam and had to stop to breathe and cough to converse with me. Patient reports that her asthma has been well-controlled and her last exacerbation was because of COVID a few years ago. Opioid HPI Opioid Management Most Recent Pain and Opioid Data: Last Pain Scale 5 04/27/24 11:00 04/27/24 Last Pain Assessment 04/27/24 11:00 Last MAR Pain Assessment 04/27/24 01:23 Last ORT Total Score 0 04/27/24 05:38 04/27/24 Last ORT Risk Category Low Risk 04/27/24 05:38 04/27/24 Review of Systems ROS Status of ROS 10 or more systems reviewed and unremarkable except as noted in history and below [facility] Medical History Osteoarthritis ?M19.90 - Unspecified osteoarthritis, unspecified site (ICD-10) Rheumatoid arthritis ?M06.9 - Rheumatoid arthritis, unspecified (ICD-10) Anxiety ?F41.9 - Anxiety disorder, unspecified (ICD-10) Acid reflux ?K21.9 - Gastro-esophageal reflux disease without esophagitis (ICD-10) Smoker ?F17.200 - Nicotine dependence, unspecified, uncomplicated (ICD-10) Asthma ?J45.909 - Unspecified asthma, uncomplicated (ICD-10) Heart murmur ?R01.1 - Cardiac murmur, unspecified (ICD-10) HTN (hypertension) ?I10 - Essential (primary) hypertension (ICD-10) Surgical History History of lymph node excision ?Z98.890 - Other specified postprocedural states (ICD-10) History of hysterectomy ?Z90.710 - Acquired absence of both cervix and uterus (ICD-10) History of lumbar fusion ?Z98.1 - Arthrodesis status (ICD-10) Family History (Updated 04/27/24 @ 04:41 by Judy Valera) Aunt Family history of cancer Mother Family history of diabetes mellitus Family history of hypertension Father Family history of diabetes mellitus Family history of hypertension Social History (Updated 04/27/24 @ 04:44 by Judy Valera) Within the past year, how often did you have a drink containing alcohol: never Score interpretation: A score less than 3 is consistent with normal alcohol consumption. 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 Highest level of school completed/degree received: GED or equivalent Are you now , , , , never or living with a partner: In a typical week, how many times do you talk on the telephone with family, friends, or neighbors: 3 or more times per week How often do you get together with friends or relatives: 3 or more times per week Little interest or pleasure in doing things: not at all Feeling down, depressed, or hopeless: not at all Feel stressed/tense/nervous/anxious/difficulty sleeping: not at all Do you think of yourself as: straight/heterosexual Gender Identity: female Meds Home Medications and Allergies Home Medications ?Medication ?Instructions ?Recorded ?Confirmed ?Type VITAMIN C 250 mg PO DAILY 11/12/22 04/27/24 History baclofen 10 mg tablet 10 mg PO TID 11/12/22 04/27/24 History cholecalciferol (vit D3) 1,000 1 tab PO DAILY 11/12/22 04/27/24 History unit-vitamin K2 (MK4) 100 mcg tablet (K2 Plus D3) lisinopril 10 mg tablet 10 mg PO DAILY 11/12/22 04/27/24 History acetylcysteine 600 mg capsule (NAC) 1,200 mg PO BID 10/04/23 04/27/24 History gabapentin 600 mg tablet 600 mg PO TID #270 tabs 04/12/24 04/27/24 Rx hydrocodone 7.5 mg-acetaminophen 1 tab PO TID PRN pain #90 tabs 04/12/24 04/27/24 Rx 325 mg tablet albuterol 90 mcg-budesonide 80 2 inh inhalation BID sob 04/27/24 04/27/24 History mcg/actuation HFA aerosol inhaler (Airsupra) ascorbic acid (vitamin C) 250 mg 250 mg PO DAILY 04/27/24 04/27/24 History tablet (Vitamin C) azithromycin 500 mg tablet 500 mg PO DAILY 04/27/24 04/27/24 History (Zithromax) meloxicam 15 mg tablet 15 mg PO DAILY pain 04/27/24 04/27/24 History montelukast 10 mg tablet 10 mg PO DAILY 04/27/24 04/27/24 History (Singulair) pantoprazole 40 mg tablet,delayed 40 mg PO DAILY 04/27/24 04/27/24 History release (Protonix) prednisone 10 mg tablet 10 mg PO DAILY 04/27/24 04/27/24 History zinc 50 mg capsule 50 mg PO DAILY 04/27/24 04/27/24 History Allergies Allergy/AdvReac Type Severity Reaction Status Date / Time amoxicillin (From Augmentin) Allergy Unknown Rash Verified 04/27/24 00:42 clavulanic acid (From Allergy Unknown Rash Verified 04/27/24 00:42 Augmentin) Penicillins Allergy Unknown RASH Verified 04/27/24 00:42 Exam Constitutional Vital Signs, click to edit/add: Last Vital Signs Temp 98.2 F 04/27/24 07:56 Pulse 117 H 04/27/24 11:42 Resp 20 04/27/24 07:56 BP 146/90 H 04/27/24 07:56 Pulse Ox 97 04/27/24 10:56 O2 Del Method Nasal Cannula 04/27/24 10:56 O2 Flow Rate 1 04/27/24 10:56 Documenting provider has reviewed patient's vital signs: yes Common normals: no apparent distress and oriented x3 General appearance: cooperative and in distress HENMT Common normals: normocephalic and head/scalp atraumatic Head and scalp: normocephalic and atraumatic Eye Common normals: conjunctivae normal and no scleral icterus Conjunctiva: conjunctiva(e) normal Respiratory Effort & inspection: tachypneic, pursed lip breathing, labored and actively coughing Auscultation: clear to auscultation bilaterally, wheezes expiratory wheezes and throughout, diminished lung sounds on the right in the lower lung white and on the left in the lower lung white and bronchial breath sounds bilateral and diffuse Other: SOB at rest, unable to talk due to dyspnea. Cardio Common normals: S1 normal heart sound and S2 normal heart sound Rate: tachycardic Heart sounds: S1 normal and S2 normal GI Common normals: Normal to inspection, nondistended, normoactive bowel sounds present, soft to palpation, non-tender and no hepatosplenomegaly Palpation: soft and no hepatosplenomegaly Extremity Common normals: no clubbing, cyanosis or edema Neuro Common normals: oriented x3, moves all extremities and no focal motor deficits Psych Common normals: mental status grossly normal, denies hallucinations, denies homicidal ideation and denies suicidal ideation Results Labs Labs: Short CBC 04/27/24 04/27/24 Range/Units 00:42 05:46 WBC 11.2 H 10.5 (4.0-11.0) 10^3/uL Hgb 13.0 12.7 (12.0-16.0) g/dL Hct 39.6 38.8 (36.0-48.0) % Plt Count 224 218 (150-450) 10^3/uL [facility] 04/27/24 04/27/24 00:42 05:46 Sodium 139 144 Potassium 4.2 4.1 Chloride 104 106 Carbon Dioxide 24.4 23.7 BUN 10.0 8.0 Creatinine 0.98 0.90 Glucose 113 H 133 H Calcium 10.1 9.3 Liver Function 04/27/24 Range/Units 00:42 Total Bilirubin 0.2 (0.2-1.0) mg/dL AST 28 (15-37) U/L ALT 36 (14-59) U/L Alkaline Phosphatase 74 (46-116) U/L Albumin 3.5 (3.4-5.0) g/dL ABG ABG results: 04/27/24 05:46 VBG pH 7.381 VBG pCO2 41.4 Assessment and Plan Assessment and Plan (1) Pneumonia: Assessment and Plan: Likely superimposed bacterial PNA, with Influenza Pneumonia. On IV rocephin/azithromycin. Started on Tamiflu for Influenza. Qualifiers: Pneumonia type: due to unspecified organism Laterality: right Lung location: middle lobe of lung Qualified Code(s): J18.9 - Pneumonia, unspecified organism (2) Asthma exacerbation: Assessment and Plan: Severe astham with exacerbation. Has increased work of breathing with tachypnea and dyspnea at rest. Needs close monitoring. On IV solumedrol, duonebs. Qualifiers: Asthma severity: severe Asthma persistence: persistent Qualified Code(s): J45.51 - Severe persistent asthma with (acute) exacerbation (3) HTN (hypertension): Assessment and Plan: BP stable. C/w home medications. IV hydralazine as needed. Qualifiers: Hypertension type: primary hypertension Qualified Code(s): I10 - Essential (primary) hypertension (4) Smoker: Assessment and Plan: Counseled on smoking cessation (5) Obesity: Assessment and Plan: Recommended weight loss. Will defer to PCP to discuss weight loss options including bariatric surgery/GLP agonists. Qualifiers: Obesity type: due to excess calories Obesity classification: adult class 2 (BMI 35 - 39.9) Body mass index: BMI 39.0-39.9 Serious obesity comorbidity presence: with serious comorbidity Qualified Code(s): E66.812 - Obesity, class 2; E66.01 - Morbid (severe) obesity due to excess calories; Z68.39 - Body mass index [BMI] 39.0-39.9, adult Plan Inpatient treatment needed because of severity of illness that will require close hemodynamic monitoring with special attention on her respiratory status. C/w IV solumedrol, duonebs. C/wIV abx, tamiflu
[2024-04-27] MEDS: OSELTAMIVIR PHOSPHATE 75 MG CAPSULE PO ×2 (13:17→20:08)
[2024-04-27] MEDS: HYDROCODONE/ACET 5-325 MG TABLET 1.5 TAB PO ×2 (13:20→21:47)
[2024-04-27] MEDS: GUAIFENESIN 200 MG/DEXTROMETHORPHAN 20 MG 10 ML UNIT DOSE CUP PO ×2 (15:34→21:42)
[2024-04-28] VITALS (22 sets, daily range): BP systolic 139–163; BP diastolic 75–97; PULSE 76–123; TEMP 36.3–36.7; O2SAT 94–97
[2024-04-28] MEDS: CEFTRIAXONE 1,000 MG in 0.9 % SODIUM CHLORIDE 50 ML 100 MG IV (01:04)
[2024-04-28] MEDS: AZITHROMYCIN 500 MG in 0.9 % SODIUM CHLORIDE 250 ML 250 MG IV (02:18)
[2024-04-28] MEDS: IPRATROPIUM/ALBUTEROL SULFATE 3 ML AMPUL.NEB IH ×4 (04:45→22:12)
[2024-04-28] MEDS: GABAPENTIN 300 MG CAPSULE 600 MG PO ×3 (05:22→21:47)
[2024-04-28] MEDS: BACLOFEN 10 MG TABLET PO ×3 (05:22→21:47)
[2024-04-28] MEDS: OMEPRAZOLE 20 MG CAPSULE.DR PO (05:29)
[2024-04-28] MEDS: LISINOPRIL 10 MG TABLET PO (05:29)
[2024-04-28] MEDS: GUAIFENESIN 200 MG/DEXTROMETHORPHAN 20 MG 10 ML UNIT DOSE CUP PO ×2 (05:36→21:51)
[2024-04-28] MEDS: MELOXICAM 7.5 MG TABLET 15 MG PO (05:37)
[2024-04-28] MEDS: HYDROCODONE/ACET 5-325 MG TABLET 1.5 TAB PO ×3 (05:37→21:50)
[2024-04-28] MEDS: METHYLPREDNISOLONE SOD SUCC PF 40 MG/ML VIAL IVP ×3 (05:59→23:52)
[2024-04-28 08:07] LABS: Basophils Percent Auto 0.1 % (0.2-2.0); Hematocrit 40.7 % (36.0-48.0); Hemoglobin 13.6 g/dL (12.0-16.0); Immature Granulocytes Abs Auto 0.08 10^3/uL (0.00-0.03); Immature Granulocytes Pct Auto 0.6 % (0.0-0.5); Lymphocytes Absolute Auto 1.1 10^3/uL (1.2-3.8); Lymphocytes Percent Auto 8.8 % (20.5-60.0); Mean Corpuscular HGB Conc 33.4 g/dL (29.9-35.2); Mean Corpuscular Hemoglobin 34.1 pg (26.7-34.0); Mean Platelet Volume 9.9 fL (9.5-13.5); Monocytes Absolute Auto 0.8 10^3/uL (0.3-0.8); Monocytes Percent Auto 5.9 % (1.7-12.0); Neutrophils Absolute Auto 10.8 10^3/uL (1.4-6.5); Neutrophils Percent Auto 84.6 % (43.0-75.0); Platelet Count 216 10^3/uL (150-450); Red Blood Count 3.99 10^6/uL (4.20-5.40); Red Cell Distribution Width 12.6 % (11.0-15.0); White Blood Count 12.8 10^3/uL (4.0-11.0)
[2024-04-28 08:27] LABS: Alanine Aminotransferase 35 U/L (14-59); Albumin Globulin Ratio 0.7; Albumin Level 3.1 g/dL (3.4-5.0); Alkaline Phosphatase 65 U/L (46-116); Anion Gap 16.9; Aspartate Amino Transferase 35 U/L (15-37); BUN Creatinine Ratio 16.7; Bilirubin Total 0.3 mg/dL (0.2-1.0); Calcium 9.4 mg/dL (8.5-10.1); Carbon Dioxide 23.6 mmol/L (21.0-32.0); Chloride 106 mmol/L (98-107); Estimated GFR (African America >60 (>=60 mL/min/1.73m^2); Estimated GFR (Non-African Ame >60 (>=60 mL/min/1.73m^2); Globulin 4.3 g/dL; Glucose 121 mg/dL (74-106); Potassium 4.5 mmol/L (3.5-5.1); Sodium 142 mmol/L (136-145); Total Protein 7.4 g/dL (6.4-8.2)
[2024-04-28] MEDS: ENOXAPARIN SODIUM 40 MG/0.4 ML SYRINGE SUBQ (09:06)
[2024-04-28] MEDS: OSELTAMIVIR PHOSPHATE 75 MG CAPSULE PO ×2 (09:06→21:47)
--- NOTE | 2024-04-28 10:56 | P.IMPN_ITS ---
Progress Note: A&P Assessment and Plan (1) Pneumonia: Assessment and Plan: On Rocephin,azithromycin and Tamiflu. Repeat CXR tomorrow. Improving but still dyspneic at rest that is worse on minimal exertion. Qualifiers: Laterality: right Lung location: middle lobe of lung Pneumonia type: due to unspecified organism Qualified Code(s): J18.9 - Pneumonia, unspecified organism (2) Asthma exacerbation: Assessment and Plan: C/w steroids, duonebs. C/w IV abx. Improved air movement but still tight and wheezing. Qualifiers: Asthma severity: severe Asthma persistence: persistent Qualified Code(s): J45.51 - Severe persistent asthma with (acute) exacerbation (3) HTN (hypertension): Assessment and Plan: C/w home medications. Qualifiers: Hypertension type: primary hypertension Qualified Code(s): I10 - Essential (primary) hypertension (4) Smoker: Assessment and Plan: Counseled on smoking cessation (5) Obesity: Assessment and Plan: Recommended weight loss. Qualifiers: Obesity type: due to excess calories Obesity classification: adult class 2 (BMI 35 - 39.9) Serious obesity comorbidity presence: with serious comorbidity Body mass index: BMI 39.0-39.9 Qualified Code(s): E66.812 - Obesity, class 2; E66.01 - Morbid (severe) obesity due to excess calories; Z68.39 - Body mass index [BMI] 39.0-39.9, adult Plan Still dyspneic at rest that is worse on exerton. Improving clinically but not ready for discharge. Will need continued inpatient treatment/close monitoring. C/w IV abx, steroids and duonebs. Internal Medicine - PN: Subj Subjective Interval history: Seen and examined. No overnight events. Subjectively feeling better but still SOB at rest. She is able to converse w/o difficulty today. Exam Constitutional Vital Signs, click to edit/add: Last Vital Signs Temp 97.7 F 04/28/24 07:32 Pulse 92 H 04/28/24 10:37 Resp 20 04/28/24 07:32 BP 147/84 H 04/28/24 07:32 Pulse Ox 97 04/28/24 10:37 O2 Del Method Room Air 04/28/24 10:37 O2 Flow Rate 0.5 04/28/24 04:48 Documenting provider has reviewed patient's vital signs: yes Common normals: no apparent distress and oriented x3 General appearance: cooperative Respiratory Effort & inspection: tachypneic Auscultation: wheezes expiratory wheezes and throughout, diminished lung sounds on the right in the lower lung white and on the left in the lower lung white and bronchial breath sounds bilateral and diffuse Cardio Common normals: S1 normal heart sound and S2 normal heart sound Rate: tachycardic Heart sounds: S1 normal and S2 normal Extremity Common normals: no clubbing, cyanosis or edema Neuro Common normals: oriented x3, moves all extremities and no focal motor deficits Psych Common normals: mental status grossly normal, denies hallucinations, denies homicidal ideation and denies suicidal ideation Internal Medicine - PN: Obj Da Labs Labs: Laboratory Results - last 24 hr 04/28/24 08:01 WBC 12.8 H RBC 3.99 L Hgb 13.6 Hct 40.7 MCV 102.0 H MCH 34.1 H MCHC 33.4 RDW 12.6 Plt Count 216 MPV 9.9 Neut % (Auto) 84.6 H Lymph % (Auto) 8.8 L [place] % (Auto) 5.9 Eos % (Auto) 0.0 L Baso % (Auto) 0.1 L Neut # (Auto) 10.8 H Lymph # (Auto) 1.1 L [place] # (Auto) 0.8 Eos # (Auto) 0.0 Baso # (Auto) 0.0 Abs Immat Gran (auto) 0.08 H Imm/Tot Granulo (auto) 0.6 H Sodium 142 Potassium 4.5 Chloride 106 Carbon Dioxide 23.6 Anion Gap 16.9 BUN 16.0 Creatinine 0.96 Est GFR ( Amer) >60 Est GFR (Non-Af Amer) >60 BUN/Creatinine Ratio 16.7 Glucose 121 H Calcium 9.4 Total Bilirubin 0.3 AST 35 ALT 35 Alkaline Phosphatase 65 Total Protein 7.4 Albumin 3.1 L Globulin 4.3 Albumin/Globulin Ratio 0.7
--- NOTE | 2024-04-28 11:24 | CM.NOTE ---
Rounds made with Dr. Williamson. Kim continues to c/o of SOB & cough. Dr. Williamson discussed lab results and treatment plan. Kim verbalized understanding. No discharge planned for today.
[2024-04-28] MEDS: FUROSEMIDE 40 MG TABLET PO (11:54)
[2024-04-29] VITALS (10 sets, daily range): BP systolic 148–168; BP diastolic 68–81; PULSE 74–106; TEMP 36.6–36.8; O2SAT 94–95
[2024-04-29] MEDS: CEFTRIAXONE 1,000 MG in 0.9 % SODIUM CHLORIDE 50 ML 100 MG IV (01:49)
[2024-04-29] MEDS: AZITHROMYCIN 500 MG in 0.9 % SODIUM CHLORIDE 250 ML 250 MG IV (01:49)
[2024-04-29] MEDS: IPRATROPIUM/ALBUTEROL SULFATE 3 ML AMPUL.NEB IH ×2 (05:10→11:26)
--- NOTE | 2024-04-29 06:00 | XR_ITS ---
The [address] [address] Patient Name: AKASH LIU MRN: [id number] date: 1970 Sex: F Assigned Patient Location: [place] Current Patient Location: [place] Accession/Order Number: [id number] Exam Date: 04/29/2024 05:57 Report Date: 04/29/2024 08:44 At the request of: SHAIKH EDIE Procedure: XR chest 1V EXAMINATION: XR chest 1V HISTORY: pneumonia COMPARISON: XR chest 04/27/2024 FINDINGS: LUNGS: Dense patchy and confluent opacities throughout the right lung and within the left lung base. VASCULATURE: No increased pulmonary vasculature. PLEURA: No pneumothorax, effusion, or pleural thickening. CARDIAC: No cardiomegaly or cardiac silhouette abnormality. MEDIASTINUM: No visible mass or adenopathy. BONES: No fracture or visible bone lesion. OTHER: Negative. XR/XR chest 1V IMPRESSION: 1. Moderate to marked bilateral pulmonary infiltrates; increased since prior study. Electronically authenticated by: KRISSY NEAL Date: 04/29/2024 08:44
[2024-04-29] MEDS: OMEPRAZOLE 20 MG CAPSULE.DR PO (06:05)
[2024-04-29] MEDS: GABAPENTIN 300 MG CAPSULE 600 MG PO ×2 (06:09→13:32)
[2024-04-29] MEDS: BACLOFEN 10 MG TABLET PO ×2 (06:09→13:32)
[2024-04-29] MEDS: METHYLPREDNISOLONE SOD SUCC PF 40 MG/ML VIAL IVP (06:09)
[2024-04-29] MEDS: LISINOPRIL 10 MG TABLET PO (06:10)
[2024-04-29] MEDS: MELOXICAM 7.5 MG TABLET 15 MG PO (06:10)
[2024-04-29] MEDS: HYDROCODONE/ACET 5-325 MG TABLET 1.5 TAB PO ×2 (06:10→13:31)
[2024-04-29 09:25] LABS: Basophils Percent Auto 0.1 % (0.2-2.0); Hematocrit 41.1 % (36.0-48.0); Hemoglobin 13.7 g/dL (12.0-16.0); Immature Granulocytes Abs Auto 0.12 10^3/uL (0.00-0.03); Immature Granulocytes Pct Auto 0.9 % (0.0-0.5); Lymphocytes Absolute Auto 1.2 10^3/uL (1.2-3.8); Lymphocytes Percent Auto 8.5 % (20.5-60.0); Mean Corpuscular HGB Conc 33.3 g/dL (29.9-35.2); Mean Corpuscular Hemoglobin 34.2 pg (26.7-34.0); Mean Corpuscular Volume 102.5 fL (81.0-99.0); Mean Platelet Volume 9.8 fL (9.5-13.5); Monocytes Absolute Auto 0.4 10^3/uL (0.3-0.8); Monocytes Percent Auto 2.7 % (1.7-12.0); Neutrophils Absolute Auto 11.8 10^3/uL (1.4-6.5); Neutrophils Percent Auto 87.8 % (43.0-75.0); Platelet Count 213 10^3/uL (150-450); Red Blood Count 4.01 10^6/uL (4.20-5.40); Red Cell Distribution Width 12.5 % (11.0-15.0); White Blood Count 13.5 10^3/uL (4.0-11.0)
[2024-04-29] MEDS: OSELTAMIVIR PHOSPHATE 75 MG CAPSULE PO (09:27)
[2024-04-29] MEDS: ENOXAPARIN SODIUM 40 MG/0.4 ML SYRINGE SUBQ (09:27)
[2024-04-29 09:44] LABS: Alanine Aminotransferase 43 U/L (14-59); Albumin Globulin Ratio 0.7; Alkaline Phosphatase 64 U/L (46-116); Anion Gap 13.9; Aspartate Amino Transferase 36 U/L (15-37); BUN Creatinine Ratio 22.3; Bilirubin Total 0.3 mg/dL (0.2-1.0); Calcium 9.2 mg/dL (8.5-10.1); Carbon Dioxide 27.4 mmol/L (21.0-32.0); Chloride 101 mmol/L (98-107); Estimated GFR (African America >60 (>=60 mL/min/1.73m^2); Estimated GFR (Non-African Ame 51 (>=60 mL/min/1.73m^2); Globulin 4.3 g/dL; Glucose 211 mg/dL (74-106); Potassium 4.3 mmol/L (3.5-5.1); Sodium 138 mmol/L (136-145); Total Protein 7.3 g/dL (6.4-8.2)
--- NOTE | 2024-04-29 12:58 | PM.DS1 ---
DS: Providers Provider Date of admission: 04/27/24 04:30 Primary care physician: Non-Staff PhysicianMD Admitting clinician: Shaikh Clay Attending physician on admission: Shaikh Clay Attending physician on discharge: Shaikh Clay Discharging clinician: Shaikh Clay Anticipated date of discharge: 04/29/24 DS: Diagnosis Discharge Diagnosis (1) Pneumonia: Qualifiers: Laterality: right Lung location: middle lobe of lung Pneumonia type: due to unspecified organism Qualified Code(s): J18.9 - Pneumonia, unspecified organism (2) Asthma exacerbation: Qualifiers: Asthma severity: severe Asthma persistence: persistent Qualified Code(s): J45.51 - Severe persistent asthma with (acute) exacerbation (3) HTN (hypertension): Qualifiers: Hypertension type: primary hypertension Qualified Code(s): I10 - Essential (primary) hypertension (4) Smoker: (5) Obesity: Qualifiers: Obesity type: due to excess calories Obesity classification: adult class 2 (BMI 35 - 39.9) Serious obesity comorbidity presence: with serious comorbidity Body mass index: BMI 39.0-39.9 Qualified Code(s): E66.812 - Obesity, class 2; E66.01 - Morbid (severe) obesity due to excess calories; Z68.39 - Body mass index [BMI] 39.0-39.9, adult DS: Summary Hospital Course Hospital Course: 53 y o female with hx of severe persistent asthma presented to ED with worsening SOB/cough x 5 days. Patient report generalized malaise, body aches, fever with chills along with worsening shortness of breath and productive cough for 5 days. She was seen by her primary care physician on Wednesday who tested her for influenza and COVID. Patient tested positive for influenza and was prescribed azithromycin and prednisone for asthma exacerbation. She did not receive Tamiflu for influenza infection. Patient reports that her shortness of breath and wheezing continued to get worse so she decided to come to ED. In ER, patient was found to have acute respiratory distress with increased work of breathing, tachypnea. Her workup revealed right middle lobe pneumonia and asthma exacerbation for which she was admitted to the hospital and started on inhaled DuoNebs, IV Rocephin and azithromycin along with systemic steroids. She gradually improved during the course of admission and today, feels well enough to go home. She is still experiencing mild VANEGAS but she recovers quickly after resting and feels that her lungs are more open and she is breathing considerably better than she has been over past few days. Of note, her CXR today shows worse infiltrates but she is clinically better. She is medically stable for discharge. Patient educated on worrisome signs and symptoms that should prompt her to seek care and return to ED if she starts to experience worsening SOB. She has prednisone and azithromycin left over from her PCP. I will call in oral Ceftin for her. She was instructed to use/finish her left over prednisone/azithromycin. Pt instructed to f/u with PCP in one week Status at Discharge Functional status at discharge: independent ambulation Overall status at discharge: patient is back to baseline Time Spent with Patient Time attestation: Total time spent providing and/or coordinating discharge services: Time spent: greater than 30 minutes Exam Constitutional Vital Signs, click to edit/add: Last Vital Signs Temp 97.8 F 04/29/24 12:02 Pulse 106 H 04/29/24 12:02 Resp 18 04/29/24 12:02 BP 151/80 H 04/29/24 12:02 Pulse Ox 94 L 04/29/24 12:02 O2 Del Method Room Air 04/29/24 12:02 O2 Flow Rate 0.5 04/28/24 04:48 Documenting provider has reviewed patient's vital signs: yes Common normals: no apparent distress and oriented x3 General appearance: cooperative Respiratory Common normals: normal respiratory effort and no use of accessory muscles Effort & inspection: able to speak in complete sentences Auscultation: diminished lung sounds Cardio Common normals: S1 normal heart sound and S2 normal heart sound Rate: tachycardic Heart sounds: S1 normal and S2 normal Extremity Common normals: no clubbing, cyanosis or edema Neuro Common normals: oriented x3, moves all extremities and no focal motor deficits Psych Common normals: mental status grossly normal, denies hallucinations, denies homicidal ideation and denies suicidal ideation DS: Data Data Completed and Pending Labs on day of discharge: Labs from last 24 hours 04/29/24 09:20 WBC 13.5 H RBC 4.01 L Hgb 13.7 Hct 41.1 MCV 102.5 H MCH 34.2 H MCHC 33.3 RDW 12.5 Plt Count 213 MPV 9.8 Neut % (Auto) 87.8 H Lymph % (Auto) 8.5 L [place] % (Auto) 2.7 Eos % (Auto) 0.0 L Baso % (Auto) 0.1 L Neut # (Auto) 11.8 H Lymph # (Auto) 1.2 [place] # (Auto) 0.4 Eos # (Auto) 0.0 Baso # (Auto) 0.0 Abs Immat Gran (auto) 0.12 H Imm/Tot Granulo (auto) 0.9 H Sodium 138 Potassium 4.3 Chloride 101 Carbon Dioxide 27.4 Anion Gap 13.9 BUN 25.0 H Creatinine 1.12 H Est GFR ( Amer) >60 Est GFR (Non-Af Amer) 51 L BUN/Creatinine Ratio 22.3 Glucose 211 H Calcium 9.2 Total Bilirubin 0.3 AST 36 ALT 43 Alkaline Phosphatase 64 Total Protein 7.3 Albumin 3.0 L Globulin 4.3 Albumin/Globulin Ratio 0.7 Discharge Plan Discharge Disposition: Home, Self-Care Condition: Fair Discharge Medications: New cefuroxime axetil 500 mg tablet 500 mg PO BID 5 Days Qty: 10 0RF Continued hydrocodone-acetaminophen 7.5-325 mg tablet 1 tab PO TID PRN (Reason: pain) Qty: 90 0RF gabapentin 600 mg tablet 600 mg PO TID Qty: 270 0RF zinc 50 mg capsule 50 mg PO DAILY meloxicam 15 mg tablet 15 mg PO DAILY Airsupra 90-80 mcg/actuation HFA aerosol inhaler 2 inh inhalation BID azithromycin [Zithromax] 500 mg tablet 500 mg PO DAILY montelukast [Singulair] 10 mg tablet 10 mg PO DAILY pantoprazole [Protonix] 40 mg tablet,delayed release (DR/EC) 40 mg PO DAILY prednisone 10 mg tablet 10 mg PO DAILY ascorbic acid (vitamin C) [Vitamin C] 250 mg tablet 250 mg PO DAILY K2 Plus D3 1,000-100 unit-mcg tablet 1 tab PO DAILY baclofen 10 mg tablet 10 mg PO TID lisinopril 10 mg tablet 10 mg PO DAILY VITAMIN C 250 mg PO DAILY Discontinued acetylcysteine [NAC] 600 mg capsule 1,200 mg PO BID Activity: increase activity as tolerated Diet: advance to your usual diet Print Language: Slovak Forms: Portal Instructions Follow Up Appointments: F/u with PCP in one week
--- NOTE | 2024-05-05 13:30 | CM.DCFOLLOWU ---
Person spoke with: patient How are you feeling? just feeling better today How is your pain? none Did you understand your discharge instructions? yes Do you have any questions about your discharge instructions? no Were you given any prescriptions at discharge? yes Were you able to get your prescriptions filled? yes Do you understand how to take your medications as ordered? yes Do you have any questions about your follow up appointment and do you plan to keep your follow up appointment? no questions, follow up with PCP yesterday Is there anything else that you would like to discuss? no Questions/Comments/Concerns/Other: none
--- OUTSIDE RECORDS SUMMARY | 2024-07-10 08:51 | XMS_ITS | CCD ---
Author Organization [facility] Care Team Providers Care 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 Name Role Phone Roberto Roth Primary Care Provider Justice Cruz Attending Provider [phone] DO Roberto Roth Primary Care Provider [phone] MD Hood Rausch Attending Provider [phone] DO Roberto Roth Primary Care Provider [phone] CALVIN Mark Attending Provider MD Paresh Tian Attending Provider RothDO Roberto oliva Primary Care Provider CALVIN Mark Attending Provider MD Paresh Tian Attending Provider [phone] MD Gina Guerrero Attending Provider [phone] Gina Guerrero Unavailable SHE ., DR HOOD [...] ROBERTO ROTH Primary Care Unavailable LAKSHMIPATHY ., NARENDOMAR Admitting Manjula vailable RAUSCH ., DR HOOD Hernandez Attending Unavailable RAUSCH ., DR HOOD Hernandez Admitting Unavailable ROTH, DR ROBERTO Bhakta Primary Care Unavailable RAUSCH ., DR HOOD Hernandez Consulting Unavailable NTAALEE WALLIS Consulting Unavailable RAUSCH ., DR HOOD [...] ROTH, DR ROBERTO Bhakta Primary Care Unavailable GEM, DR DASHA Gomez Consulting Unavailable SINGH ., [...] Attending Unavailable Gina Guerrero Admitting Unavailable Aby Mark CNP Unavailable [phone] Panda BUSTILLO, Aaron Musa Attending Unavailable Panda BUSTILLO, Aaron Musa Attending Unavailable Panda BUSTILLO, Aaron Musa Attending Unavailable ABY MARK Referring Unavailable JOELLE SARMIENTO Attending Unavailable JOELLE SARMIENTO Attending Unavailable ABY MARK Referring Unavailable Unavailable Unavailable Unavailable Allergies Allergy Classification Reported Allergen(s) Allergy Type Date of Onset Reaction(s) Facility (6 sources) Amoxicillin; Translations: [amoxicillin] Drug Allergy 05-14-20 20 Nausea [facility] (10 sources) Penicillins; Translations: [Penicillins] Propensity to adverse reactions 07-24-19 14 Rash, Diarrhea [facility] (6 sources) clavulanic acid; Translations: [clavulanic acid] Propensity to adverse reactions 05-14-20 20 [facility] (3 sources) Amoxicillin / Clavulanate; Translations: [Augmentin] Drug Allergy 07-24-19 14 Unknown [facility] (2 sources) Azithromycin Drug Allergy diarrhea [facility] Other (2 sources) Penicillin G Drug Allergy Unknown [facility] Other Medications Current Medications Medication Drug Class(es) Dates Sig (Normalized) Sig (Original) acetaminophen 500 mg oral tablet (4 sources) Start: 05-31-2020 take 500 mg by mouth every four hours Acetaminophen Active 500 MG PO Q4H 100 May 31, 2020 1:00am [id number] 200 actuat albuterol 0.09 mg/actuat metered dose [...] daily - Respiratory May 31, 2020 1:00am albuterol-budeso nide HFA (AIRSUPRA) 90-80 mcg/actuation inhaler (2 sources) albuterol-budeso nide HFA (AIRSUPRA) 90-80 mcg/actuation inhaler Inhale 2 Puffs as instructed. Do not take more than 12 inhalations in a 24 hour period. Active Anoro Ellipta 62.5-25 MCG/INH (2 sources) take 1 puff(s) by mouth once daily Anoro Ellipta 62.5-25 MCG/INH INHALE 1 PUFF BY MOUTH EVERY DAY Inhalation for 30 Active baclofen 10 mg oral tablet (2 sources) gamma-Aminobutyric Acid-ergic Agonist take 1 tablet by mouth twice daily baclofen 10 mg tablet Take 10 mg by mouth two times a day. Active cefdinir 300 mg oral capsule (2 sources) Cephalosporin Antibacterial take 1 capsule by mouth twice daily cefdinir (OMNICEF) 300 mg capsule Take 300 mg by mouth two times a day. Active 30 actuat fluticasone furoate 0.1 mg/actuat / umeclidinium 0.0625 mg/actuat / vilanterol 0.025 mg/actuat dry powder inhaler (2 sources) Anticholinergic, Corticosteroid, beta2-Adrenergic Agonist take 1 puff(s) by inhalation once daily nsjwgiieoqd-gropclijg-kr lanter (TRELEGY ELLIPTA) 100-62.5-25 mcg inhalation powder Inhale 1 Puff as instructed once daily. Active gabapentin 300 mg oral capsule (13 sources) Anti-epileptic Agent Start: 05-31-2020 take 600 mg by mouth three times daily Gabapentin Active 600 MG PO Three times daily 0 May 31, 2020 1:00am Start: 03-18-2019 End: 06-01-2020 take 600 mg by mouth three times daily Gabapentin Discontinued 600 MG PO Three times daily March 18, 2019 12:00am June 01, 2020 10:48am lisinopril 10 mg oral tablet (13 sources) Angiotensin Converting Enzyme Inhibitor Start: 05-14-2020 End: 06-01-2020 take 10 mg by mouth once daily Lisinopril Active 10 MG PO Daily May 31, 2020 1:00am meloxicam 15 mg oral tablet (4 sources) Nonsteroidal Anti-inflammatory Drug take 1 tablet by mouth once daily meloxicam (MOBIC) 15 mg tablet Take 15 mg by mouth once daily. Active montelukast 10 mg oral tablet (2 sources) Leukotriene Receptor Antagonist take 1 tablet by mouth once daily at bedtime montelukast (SINGULAIR) 10 mg tablet Take 10 mg by mouth daily at bedtime. Active omeprazole 20 mg delayed release oral capsule (9 sources) Proton Pump Inhibitor Start: 05-14-2020 End: 06-01-2020 take 20 mg by mouth once daily Omeprazole Active 20 MG PO DAILY@0630 30 May 31, 2020 1:00am oxyCODONE hydrochloride 5 [...] pantoprazole 40 mg delayed release oral tablet (4 sources) Proton Pump Inhibitor take 1 tablet by mouth once daily pantoprazole DR (PROTONIX) 40 mg tablet Take 40 mg by mouth once daily. Active predniSONE 10 mg oral tablet (8 [...] / HYDROcodone bitartrate 5 mg oral tablet (9 sources) Opioid Agonist Start: 03-18-2019 End: 05-23-2020 take 1 tablet by mouth three times daily Hydrocodone-Acetami nophen ([place]) 5-325 mg Tablet Discontinued 1 TAB PO Three times daily March 18, 2019 12:00am May 23, 2020 4:59pm take 7.5 mg by mouth three times daily hydrocodone/acetaminophen (NORCO ORAL) T francie 7.5 mg by mouth three times a day. Active [place] Active azithromycin 250 mg oral tablet (4 sources) Macrolide Antimicrobial Start: 02-14-2021 End: 06-23-2021 take 2-5 tablets by mouth once daily Azithromycin (Zithromax) 250 mg tablet Discontinued 0 PO .COMPLEX 6 February 14, 2021 12:00am June 23, 2021 [...] Date Documented Date Episodic/Chronic Acquired foot deformities (5 sources) Foot-drop; Translations: [Foot drop, right foot] [...] sources) High risk drug monitoring status; Translations: [nursing home (current) use of opiate analgesic] Episodic [...] Spondylosis; intervertebral disc disorders; other back problems (14 sources) Lumbar radiculopathy; Translations: [Radiculopathy, lumbar region] [...] Test Name Value Interpretation Reference Range Facility [facility] 06-09-2024 CNOV Office Visit (SPNSMN ) KIM HILL ([id number]) 1970 F Date Time Provider Department 06/09/24 4:00 PM JOELLE SARMIENTO JOSEOH During your visit today, we recorded the following information about you: Pulse Blood pressure Weight Height 92/minute 104/52 98 kg 1.6 m Joelle Sarmiento MD 06/16/2024 5:55 PM Signed Rescheduled, no charge Referring Provider: ABY MARK [[id number]] Allergies As of Date: 06/09/2024 Noted Allergy Reaction PENICILLINS 06/09/2024 2 - Rash 6 - Diarrhea Date Reviewed: 06/09/2024 Reviewed by: Olive Ross OCCA - Fully Assessed Reason for Visit: New Patient [172] New Patient Evaluation [154] Cmt: Postop complications from prior surgery outside [facility] Primary Visit Diagnosis:Chronic bilateral low back pain without sciatica [M54.50, G89.29] Prescriptions as of 06/16/2024 - gabapentin (NEURONTIN) 600 mg tablet Take 600 mg by mouth three times a day. - hydrocodone/acetaminoph en (NORCO ORAL) Take 7.5 mg by mouth three times a day. - baclofen 10 mg tablet Take 10 mg by mouth two times a day. - meloxicam (MOBIC) 15 mg tablet Take 15 mg by mouth once daily. - lisinopril (ZESTRIL) 10 mg tablet Take 10 mg by mouth once daily. - pantoprazole DR (PROTONIX) 40 mg tablet Take 40 mg by mouth once daily. - montelukast (SINGULAIR) 10 mg tablet Take 10 mg by mouth daily at bedtime. - uqqgqhuqwcy-lzvwfdqxc-u ilanter (TRELEGY ELLIPTA) 100-62.5-25 mcg inhalation powder Inhale 1 Puff as instructed once daily. - cefdinir (OMNICEF) 300 mg capsule Take 300 mg by mouth two times a day. - albuterol-budesonide HFA (AIRSUPRA) 90-80 mcg/actuation inhaler Inhale 2 Puffs as instructed. Do not take more than 12 inhalations in a 24 hour period. Problem List As Of Date: 06/09/2024 (None) Encounter Status:Closed by JOELLE SARMIENTO on 06/16/24 Normal [facility] MRI Lumbar Spine w/o + w/on 07-30-2022 [...] by Justice Lucas on 07/31/2022 0915 Normal [facility] Automated erythrocytes count in urine sediment (number/area)Ordered By: Paresh Tian on 07-16-2022 RBC Auto (Urine sed) [#/Area] 1-2 [HPF] 0-4 [facility] Automated leukocytes count i n urine sediment (number/area)Ordered By: Paresh Tian on 07-16-2022 WBC Auto (Urine sed) [#/Area] 20-49 [HPF] 0-4 [facility] Basophils Auto (Bld) [#/Vol] Ordered By: Paresh Tian on 07-16-2022 Basophils (Bld) [#/Vol] 0.0 10*3/uL 0.0-0.2 [facility] Basophils/100 WBC Auto (Bld) Ordered By: Paresh Tian on 07-16-2022 Basophils/100 WBC (Bld) 0.4 % . F [facility] Bilirubin Test strip Ql (U)O rdered By: Paresh Tian on 07-16-2022 Bilirubin Ql (U) Negative Negative [facility] C reactive protein [Mass/vol ume] in Serum or PlasmaOrdered By: Paresh Tian on 07-16-2022 CRP [Mass/Vol] 0.8 mg/dL 0.0-1.0 [facility] Color Auto (U)Ordered By: Afia Tian on 07-16-2022 Color (U) Yellow Yellow [facility] Creatinine and Glomerular fi ltration rate.predicted panel (S/P/Bld)Ordered By: Paresh Tian on 07-16-2022 Creatinine [Mass/Vol] 0.74 mg/dL 0.44-1.03 [facility] Eosinophils Auto (Bld) [#/Vo l]Ordered By: Paresh Tian on 07-16-2022 Eosinophils (Bld) [#/Vol] 0.1 10*3/uL 0.0-0.45 [facility] Eosinophils/100 WBC Auto (Bl d)Ordered By: Paresh Tian on 07-16-2022 Eosinophils/100 WBC (Bld) 1.1 % . [facility] Erythrocyte distribution wid th Auto (RBC) [Ratio]Ordered By: Paresh Tian on 07-16-2022 Erythrocyte distribution width (RBC) [Ratio] 13.0 % 11.9-15.3 [facility] Erythrocyte sedimentation ra te by Photometric methodOrdered By: Paresh Tian on 07-16-2022 ESR Photometric method (Bld) [Velocity] 45 mm/hr 0-29 [facility] Estimated glomerular filtrat ion rate (GFR) non- AmericanOrdered By: Paresh Tian on 07-16-2022 GFR/1.73 sq M.predicted among non-blacks MDRD (S/P/Bld) [Vol rate/Area] > 60 mL/Min [facility] Hematocrit Auto (Bld) [Volum e fraction]Ordered By: Paresh Tian on 07-16-2022 Hematocrit (Bld) [Volume fraction] 45.3 % 34.0-46.4 [facility] Hemoglobin [Mass/volume] in BloodOrdered By: Paresh Tian on 07-16-2022 Hemoglobin (Bld) [Mass/Vol] 15.2 g/dL 11.8-15.4 [facility] Ketones Auto test strip (U) [Mass/Vol]Ordered By: Paresh Tian on 07-16-2022 Ketones (U) [Mass/Vol] Negative Negative [facility] - UrinalysisOrder ed By: Paresh Tian on 07-16-2022 Hyaline casts LM Ql (Urine sed) 0-8 [LPF] 0-8 [facility] Leukocytes [#/volume] correc scot for nucleated erythrocytes in Blood by Automated counOrdered By: Paresh Tian on 07-16-2022 WBC corrected for nucl RBC Auto (Bld) [#/Vol] 10.4 10*3/uL 3.8-11.6 [facility] Lymphocytes Auto (Bld) [#/Vo l]Ordered By: Paresh Tian on 07-16-2022 Lymphocytes (Bld) [#/Vol] 3.7 10*3/uL 1.00-4.8 [facility] Lymphocytes/100 WBC Auto (Bl d)Ordered By: Paresh Tian on 07-16-2022 Lymphocytes/100 WBC (Bld) 35.0 % . [facility] MCH Auto (RBC) [Entitic mass ]Ordered By: Paresh Tian on 07-16-2022 MCH (RBC) [Entitic mass] 33.8 pg 24.7-34.3 [facility] MCHC Auto (RBC) [Mass/Vol]Or dered By: Paresh Tian on 07-16-2022 MCHC (RBC) [Mass/Vol] 33.6 g/dL 32.0-35.0 [facility] MCV Auto (RBC) [Entitic vol] Ordered By: Paresh Tian on 07-16-2022 MCV (RBC) [Entitic vol] 100.6 fL 80-100 [facility] Mitotic spindle apparatus Ab [Titer] in Serum or Plasma by ImmunofluorescenceOrdered By: Paresh Tian on 07-16-2022 Mitotic spindle apparatus Ab IF [Titer] 1:160 . [facility] Comment on above: ICAP nomenclature: A C-25,26 Monocytes Auto (Bld) [#/Vol] Ordered By: Paresh Tian on 07-16-2022 Monocytes (Bld) [#/Vol] 0.7 10*3/uL 0.0-0.8 [facility] Monocytes/100 WBC Auto (Bld) Ordered By: Paresh Tian on 07-16-2022 Monocytes/100 WBC (Bld) 6.8 % . [facility] Neutrophils Auto (Bld) [#/Vo l]Ordered By: Paresh Tian on 07-16-2022 Neutrophils (Bld) [#/Vol] 5.9 10*3/uL 1.8-7.7 [facility] Neutrophils/100 WBC Auto (Bl d)Ordered By: Paresh Tian on 07-16-2022 Neutrophils/100 WBC (Bld) 56.7 % . [facility] Nitrite Test strip Ql (U)Ord ered By: Paresh Tian on 07-16-2022 Nitrite Ql (U) Negative Negative [facility] No Panel InformationOrdered By: Paresh Tian on 07-16-2022 Anti-Nuclear Antibody Comment 2 See comment . [facility] Comment on above: For more information about Hep-2 cell patterns usePiqqualpatterns.org, the official website for the InternationalConsensus on Antinuclear Antibody (ASTER) Patterns (ICAP). --------A positive ASTER result may occur in healthy individuals (lowtiter) or be associated with a variety of diseases. Seeinterpretation chart which is not all inclusive:Pattern Antigen Detected Suggested Disease Association Homogeneous DNA(ds,ss), SLE - High titers Nucleosomes, Histones Drug-induced SLE Speckled Sm, DISK RECOATER, SCL-70, SLE,MCTD,PSS (diffuse form), SS-A/SS-B Sjogrens Nucleolar SCL-70, PM-1/SCL High titers Scleroderma, PM/DM Centromere Centromere PSS (limited form) w/Crest syndrome variable Nuclear Dot Sp100,p34-yukehm Primary Biliary Cirrhosis Nuclear GP210, Primary Biliary CirrhosisMembrane kailyn A,B,C Performed at: [facility] [id number] Director: Collin Rodriguez PhD, Phone: [phone] Estimated GFR () > 60 mL/Min [facility] Comment on above: GFR estimated refere nce range: According to KDOQI guidelines, <60 ml/min/1.73m2 is sufficient to diagnose a patient with chronic kidney disease. Pharmacy Creatinine Clearance (Chem N/A [facility] Total Complement (CH50) >60 U/mL >41 [facility] Comment on above: Age Male [...] to determine out of range values.Performed at: [facility] [id number] Director: Collin Rodriguez PhD, Phone: [phone] Nucleated erythrocytes [Pres ence] in Blood by Automated countOrdered By: Paresh Tian on 07-16-2022 Nucleated RBC Auto Ql (Bld) 0.1 /100{WBC} 0-0.5 [facility] Platelet mean volume Auto (B ld) [Entitic vol]Ordered By: Paresh Tian on 07-16-2022 Platelet mean volume (Bld) [Entitic vol] 8.4 fL 6.3-10.7 [facility] Platelets Auto (Bld) [#/Vol] Ordered By: Paresh Tian on 07-16-2022 Platelets (Bld) [#/Vol] 242 10*3/uL 150-450 [facility] Protein Auto test strip (U) [Mass/Vol]Ordered By: Paresh Tian on 07-16-2022 Protein (U) [Mass/Vol] Negative Negative [facility] RBC Auto (Bld) [#/Vol]Ordere d By: Paresh Tian on 07-16-2022 RBC (Bld) [#/Vol] 4.50 10*6/uL 3.60-5.00 [facility] Serum homogeneous pattern an tinuclear antibody (ASTER) titerOrdered By: Paresh Tian on 07-16-2022 Homogenous nuclear Ab pattern (S) [Titer] N/A [facility] Serum nuclear antibody titer Ordered By: Paresh Tian on 07-16-2022 Nuclear Ab (S) [Titer] Positive . [facility] Comment on above: Negative <1:80 Borde rline 1:80 Positive >1:80 Serum or plasma complement C 3 measurement (mass/volume)Ordered By: Paresh Tian on 07-16-2022 Complement C3 [Mass/Vol] 197 mg/dL 82-167 [facility] Comment on above: Performed at: [address] Director: Collin Rodriguez PhD, Phone: [phone] Serum or plasma complement C 4 measurement (mass/volume)Ordered By: Paresh Tian on 07-16-2022 Complement C4 [Mass/Vol] 42 mg/dL 12-38 [facility] Specific gravity Auto test s trip (U) [Rel density]Ordered By: Paresh Tian on 07-16-2022 Specific gravity (U) [Rel density] 1.018 1.001-1.03 0 [facility] Squamous epithelial cells de tection in urine sediment by light microscopyOrdered By: Paresh Tian on 07-16-2022 Epithelial cells.squamous LM Ql (Urine sed) 0-1 [HPF] 0-2 [facility] Urine bacteria detection by automated methodOrdered By: Paresh Tian on 07-16-2022 Bacteria Auto Ql (U) 4+ None Seen [facility] Urine clarity by refractomet ry automatedOrdered By: Paresh Tian on 07-16-2022 Clarity Refractometry automated (U) Clear Clear [facility] Urine culture routineOrdered By: Paresh Tian on 07-16-2022 Bacteria identified Cx Nom (U) Escherichia coli [facility] Urine glucose measurement by automated test strip (mass/volume)Ordered By: Paresh Tian on 07-16-2022 Glucose Auto test strip (U) [Mass/Vol] Normal mg/dL Normal [facility] Urine hemoglobin detection b y automated test stripOrdered By: Paresh Tian on 07-16-2022 Hemoglobin Auto test strip Ql (U) Negative Negative [facility] Urine leukocyte esterase det ection by automated test stripOrdered By: Paresh Tian on 07-16-2022 Leukocyte esterase Auto test strip Ql (U) 3+ Negative [facility] Urobilinogen Auto test strip (U) [Mass/Vol]Ordered By: Paresh Tian on 07-16-2022 Urobilinogen (U) [Mass/Vol] Normal mg/dL Normal [facility] WBC Auto (Bld) [#/Vol]Ordere d By: Paresh Tian on 07-16-2022 WBC (Bld) [#/Vol] 10.4 10*3/uL 3.8-11.6 [facility] pH Auto test strip (U)Ordere d By: Paresh Tian on 07-16-2022 pH (U) 6.5 [pH] 5.0-9.0 [facility] XR HIPS ZEINA 3_4V WO PELVISon [...] DASHA KHAN Date: 2022-05-15 07:49 Normal [facility] Covid-19 PCR (CVDTBH)on SARS-CoV-2 (COVID-19) RNA AMBERLY+probe Ql (Unsp spec) Not detected Normal NOT DETECTED [facility] Comment on above: Result Comment: This test is not yet approved or cleared by the [place] FDA. When there are no FDA-approved or cleared tests available, and other criteria are met, FDA can make tests available under an emergency access mechanism called an Emergency Use Authorization (EUA). The EUA for this test is supported by the Programs Director of Health and Human Service's (HHS's) declaration [...] consistent with SARS-CoV-2. Performed By: #### [facility] #### [facility] [address] [place] [address] Dr. Narendra Jacobsen COVID-19 Positive/NegativeOr dered By: Baljinder Rausch on 01-31-2022 SARS-CoV-2 (COVID-19) N gene AMBERLY+probe Ql (Resp) Negative Negative [facility] Comment on above: Testing for SARS-CoV -2 by RT-PCR This test was developed and its performance characteristics determined by [employer] ([employer]) and validated at the [facility]. This test has not been FDA [...] COVID-19 Positive/Negativeon 05-20-2020 COVID-19 Positive/Negative Negative Negative [facility] Comment on above: Testing for SARS-CoV -2 by RT-PCRThis test was developed and its performance characteristics determined by [employer] ([employer]) and validated at the [facility]. This test has not been FDA [...] Otheron 05-20-2020 Coronavirus 2019 PCR Interp N/A [facility] Automated basophil %on 05-14 Basophils/100 WBC (Bld) 0.5 % F [facility] Automated basophil counton 1 07-15-2019 Basophils (Bld) [#/Vol] 0.0 10*3/uL 0.0-0.2 [facility] Automated blood lymphocyte c ount (number/volume)on 05-14-2020 Lymphocytes (Bld) [#/Vol] 2.8 10*3/uL 1.00-4.8 [facility] Automated blood lymphocyte c ount as percentage of total leukocyteson 05-14-2020 Lymphocytes/100 WBC (Bld) 35.0 % [facility] Automated blood monocyte cou nton 05-14-2020 Monocytes (Bld) [#/Vol] 0.6 10*3/uL 0.0-0.8 [facility] Automated blood platelet cou nt (count/volume)on 05-14-2020 Platelets (Bld) [#/Vol] 225 10*3/uL 150-450 [facility] Automated blood platelet jose n volume measurementon 05-14-2020 Platelet mean volume (Bld) [Entitic vol] 8.2 fL 6.3-10.7 [facility] Automated eosinophil %on Eosinophils/100 WBC (Bld) 1.5 % [facility] Automated eosinophil counton 05-14-2020 Eosinophils (Bld) [#/Vol] 0.1 10*3/uL 0.0-0.45 [facility] Automated erythrocyte distri bution width ratioon 05-14-2020 Erythrocyte distribution width (RBC) [Ratio] 12.3 % 11.9-15.3 [facility] Automated erythrocyte mean c orpuscular hemoglobin (mass per erythrocyte)on 05-14-2020 MCH (RBC) [Entitic mass] 35.2 pg 24.7-34.3 [facility] Automated erythrocyte mean c orpuscular hemoglobin concentration measurement (mass/volon 05-14-2020 MCHC (RBC) [Mass/Vol] 34.2 g/dL 32.0-35.0 [facility] Automated erythrocyte mean c orpuscular volumeon 05-14-2020 MCV (RBC) [Entitic vol] 102.9 fL 80-100 F [facility] Automated monocyte %on 05-14 Monocytes/100 WBC (Bld) 7.0 % F [facility] Automated neutrophil %on Neutrophils/100 WBC (Bld) 56.0 % [facility] Blood erythrocytes automated count (number/volume)on 05-14-2020 RBC (Bld) [#/Vol] 4.08 10*6/uL 3.60-5.00 [facility] Blood hemoglobin measurement (mass/volume)on 05-14-2020 Hemoglobin (Bld) [Mass/Vol] 14.3 g/dL 11.8-15.4 [facility] Blood leukocytes automated c ount (number/volume)on 05-14-2020 WBC (Bld) [#/Vol] 7.9 10*3/uL 4.5-11.0 [facility] Blood neutrophil count by au tomated method (number/volume)on 05-14-2020 Neutrophils (Bld) [#/Vol] 4.4 10*3/uL 1.8-7.7 [facility] Estimated glomerular filtrat ion rate (GFR) non- Americanon 05-14-2020 GFR/1.73 sq M predicted among non-blacks MDRD (S/P/Bld) [Vol rate/Area] mL/min/{1.73_m2} [facility] Hematocrit [Volume Fraction] of Blood by Automated counton 05-14-2020 Hematocrit (Bld) [Volume fraction] 41.9 % 34.0-46.4 [facility] Otheron 05-14-2020 GFR/1.73 sq M.predicted MDRD (S/P/Bld) [Vol rate/Area] mL/min/{1.73_m2} [facility] Comment on above: GFR estimated refere nce range: According to KDOQI guidelines, <60 ml/min/1.73m2 is sufficient to diagnose a patient with chronic kidney disease. Nucleated RBC/100 WBC (Bld) [Ratio] 0.1 % 0-0.5 [facility] Pharmacy Creatinine Clearance (Chem N/A [facility] Serum or plasma calcium octavio urement (mass/volume)on 05-14-2020 Calcium [Mass/Vol] 10.1 mg/dL 8.2-10.2 [facility] Serum or plasma chloride jose surement (moles/volume)on 05-14-2020 Chloride [Moles/Vol] 101 mmol/L 95-114 [facility] Serum or plasma creatinine m easurement with calculation of estimated glomerular filtron 05-14-2020 Creatinine [Mass/Vol] 0.60 mg/dL 0.44-1.03 [facility] Serum or plasma glucose octavio urement (mass/volume)on 05-14-2020 Glucose [Mass/Vol] 94 mg/dL 70-100 [facility] Comment on above: ADA recommended refe rence rangeRandom Glucose Reference Range is dependent on time and content of last meal. Glucose of more than 200 mg/dL in a nonstressed, ambulatory subject supports the diagnosis of Diabetes Mellitus. Serum or plasma potassium me asurement (moles/volume)on 05-14-2020 Potassium [Moles/Vol] 4.3 mmol/L 3.5-5.1 [facility] Serum or plasma sodium measu rement (moles/volume)on 05-14-2020 Sodium [Moles/Vol] 140 mmol/L 136-146 [facility] Serum or plasma total carbon dioxide measurement (moles/volume)on 05-14-2020 CO2 [Moles/Vol] 27.2 mmol/L 22.0-30.0 [facility] Serum or plasma urea nitroge n measurement (mass/volume)on 05-14-2020 Urea nitrogen [Mass/Vol] 7 mg/dL 9-23 [facility] Vital Signs Date Time Vital Sign Value Performing Clinician Facility 08-17-2022 16:00-0400 Body height 160.02 cm Gina Blades Other [facility] Other 08-17-2022 16:00-0400 Body mass index (BMI) [Ratio] 40.56 kg/m2 Gina Blades Other [facility] Other 08-17-2022 16:00-0400 Body weight 103.87 kg Gina Blades Other [facility] Other 08-17-2022 16:00-0400 Diastolic blood pressure 82 mm[Hg] Gina Blades Other [facility] Other 08-17-2022 16:00-0400 Systolic blood pressure 126 mm[Hg] Gina Blades Other [facility] Other Encounters Encounter Date Encounter Type Care Provider Facility Start: 06-22-2024 End: 06-23-2024 Telephone encounter Joelle Sarmiento MD Work Phone: Neurology Comment on above: Orders Start: 06-16-2024 End: 06-16-2024 ambulatory Joelle Sarmiento MD Work Phone: [facility] [place] Comment on above: Lumbar radiculopathy (Primary Dx) Start: 06-16-2024 End: 06-16-2024 Telemedicine consultation with patient Joelle Sarmiento MD Work Phone: [facility] [place] Start: 06-09-2024 ambulatory JOELLE SARMIENTO Facil ity:[facility] Start: 04-24-2024 End: 04-24-2024 ambulatory Aaron Mosqueda MD Facility:[facility] Start: 03-27-2024 End: 03-27-2024 ambulatory Aaron Mosqueda MD Facility:[facility] Start: 03-06-2024 End: 03-10-2024 Chart abstracting Joelle Sarmiento MD Work Phone: Neurology Start: 10-18-2023 End: 10-18-2023 ambulatory Aaron Mosqueda MD Facility:[facility] Start: 10-27-2022 ambulatory NARENDRANATH LAKSHMIPATHY . Facility:[facility] Start: 10-13-2022 End: 10-13-2022 ambulatory NARENDRANATH LAKSHMIPATHY . Facility:[facility] Start: 10-06-2022 End: 10-07-2022 ambulatory NARENDRANATH LAKSHMIPATHY . Facility:[facility] Start: 09-08-2022 End: 09-08-2022 ambulatory Gina Guerrero Other [facility] Other Start: 09-08-2022 Telephone encounter Gina Tamayo PG [facility] Start: 09-01-2022 End: 09-02-2022 ambulatory NARENDRANATH LAKSHMIPATHY . Facility:[facility] Start: 08-17-2022 End: 08-17-2022 Patient encounter procedure DO Roberto Roth Work Phone: [facility] Work Phone: Start: 08-17-2022 End: 08-17-2022 ambulatory DO Roberto Roth Work Phone: [facility] Work Phone: Start: 08-17-2022 Office outpatient ne w 45 minutes Gina Guerrero FPG [facility] Start: 07-16-2022 End: 07-17-2022 ambulatory DO Roberto Roth Work Phone: [facility] Work Phone: Start: 07-16-2022 End: 07-16-2022 Patient encounter procedure DO Robetro Roth Work Phone: [facility] [address] Work Phone: Start: 07-03-2022 End: 07-03-2022 ambulatory DO Roberto Roth Work Phone: [facility] Work Phone: Start: 07-03-2022 End: 07-03-2022 Patient encounter procedure DO Roberto Roth Work Phone: [facility] [address] [place] Work Phone: Start: 06-23-2022 End: 06-23-[address] HOOD RAUSCH . Facility:[facility] Start: 05-29-2022 End: 05-30-[address] HOOD RAUSCH . Facility:[facility] Start: 05-14-2022 End: 05-15-2022 ambulatory ADA SINGH . Facility:[facility] Start: 03-12-2022 End: 03-13-[address] HOOD RAUSCH . Facility:[facility] Start: 02-13-2022 Encounter for preprocedural laboratory examination DR HOOD RAUSCH . [facility] Start: 02-10-2022 End: 02-10-[address] HOOD RAUSCH . Facility:[facility] Start: 02-06-2022 End: 02-07-[address] HOOD RAUSCH . Facility:[facility] Start: 02-06-2022 End: 02-07-2022 Encounter for preprocedural laboratory examination DR HOOD RAUSCH . Facility:[facility] Start: 02-03-2022 End: 02-03-[address] HOOD RAUSCH . Facility:[facility] Start: 01-31-2022 End: 01-31-2022 Patient encounter procedure DO Roberto Roth Work Phone: [facility] COVID Testing Start: 01-16-[address] HOOD RAUSCH . Faci lity:[facility] Start: 01-07-2022 End: 01-08-[address] HOOD RAUSCH . Facility:[facility] Start: 05-20-2020 End: 05-20-2020 Patient encounter procedure Roberto Roth -Pre-Surgical Testing Start: 05-14-2020 End: 05-14-2020 Patient encounter procedure Roberto Roth -Pre-Surgical Testing Start: 04-26-2020 End: 04-26-2020 Patient encounter procedure Roberto Roth -[facility] [place] Procedures Date Procedure Procedure Detail Performing Clinician Start: 07-16-2022 Urine culture DO Roberto reyes Work Phone: Start: 07-03-2022 X-ray of lumbar spin e, six views including bending views DO Roberto Roth Work Phone: Start: 04-26-2020 X-ray of lumbar spin e, four views Roberto Roth Plan of Treatment Date Care Activity Detail Author Start: 01-30-2024 Covid-19 Vaccine ( season) Covid-19 Vaccine ( season) [facility] Start: 01-30-2024 Influenza vaccination Influenza Vacc ine (#1) [facility] Start: 08-17-2022 Plain X-ray of right hip XR hip RT min 2V(w/wo pelvis)* [facility] Start: 08-17-2022 XR Hip - right 2 Views [facility] Start: 07-16-2022 Bacteria identified in Urine by Culture [facility] Start: 07-16-2022 Hemolytic complement CH50 level [facility] Start: 07-16-2022 [facility] Start: 2018 Shingrix Vaccine (1 of 2) Shingrix Vaccine (1 of 2) [facility] Start: 2013 Diabetes Screening Diabetes Screenin g [facility] Start: 2013 Lipid panel Lipid Screening [facility] Start: 2013 Screening for malign ant neoplasm of colon [facility] Start: 2008 Screening for malign ant neoplasm of breast Mammogram Screening [facility] Start: 1989 Screening for malign ant neoplasm of cervix Cervical Cancer Screening [facility] Start: 10-03-1987 Hepatitis B Vaccine (1 of 3 - 19+ 3-dose series) Hepatitis B Vaccine (1 of 3 - 19+ 3-dose series) [facility] Start: 10-03-1987 Pneumococcal Vaccine : 50+ (1 of 2 - PCV) Pneumococcal Vaccine: 50+ (1 of 2 - PCV) [facility] Start: 10-03-1987 Urine microalbumin profile DTaP,Tdap,Td Vaccine (1 - Tdap) [facility] Start: 1986 Anxiety Screening Anxiety Screening [facility] Start: 1986 Depression Screening Depression Scre ening [facility] Start: 1986 Hepatitis C screening Hepatitis C Sc reening [facility] Start: 1986 HIV screening HIV Screening [facility] Complement C3 [Mass/volume] in Serum or Plasma [facility] Complement C4 [Mass/volume] in Serum or Plasma [facility] End: 07-23-2025 CT Lumbar spine WO contrast CT LUMBAR SPINE WO IVCON Radiology Routine Radiculopathy of lumbar region Spinal stenosis of lumbar region without neurogenic claudication 1 Occurrences starting 06/23/2024 until 07/23/2025 [facility] Work Phone: Comment on above: 1 Occurrences starti ng 06/23/2024 until 07/23/2025 End: 06-23-2025 EMG(NEURO/NI) EMG(NEURO/NI) EMG Routine Radiculopathy of lumbar region Spinal stenosis of lumbar region without neurogenic claudication Right foot drop 1 Occurrences starting 06/23/2024 until 06/23/2025 [facility] Comment on above: 1 Occurrences starti ng 06/23/2024 until 06/23/2025 Homogenous nuclear A b pattern [Titer] in Serum [facility] Nuclear Ab [Titer] i n Serum [facility] End: 07-23-2025 XR Lumbar spine Views W flexion and W extension XR LUMBAR MOTION 4V AP/LAT/ FLEX/EXT Radiology Routine Radiculopathy of lumbar region Spinal stenosis of lumbar region without neurogenic claudication 1 Occurrences starting 06/23/2024 until 07/23/2025 [facility] Comment on above: 1 Occurrences starti ng 06/23/2024 until 07/23/2025 Immunizations Immunization Date Immunization Notes Care Provider Jah dasilva 11-09-2020 COVID-19 mRNA-1273 (Moderna) DO Roberto Roth Work Phone: [facility] 10-12-2020 COVID-19 mRNA-1273 (Moderna) DO Roberto Roth Work Phone: [facility] 05-23-2020 influenza, injectabl e, quadrivalent, preservative free DO Roberto Roth Work Phone: [facility] 05-23-2020 influenza virus vaccine, unspecified formulation Joelle Sarmiento MD Work Phone: [facility] Payers Date Payer Category Payer Unknown [id number] 2023 Unknown [id number] 2022 Self-pay [id number] 1970 Unknown [id number] 2.16.84 0.1.221920.3.579.2.593 1968 Unknown [id number] 2.16.84 0.1.585233.3.579.2. 1968 Unknown [id number] 2.16.84 0.1.612415.3.579.2.59 1968 Unknown [id number] 2.16.84 0.1.075696.3.579.2.59 1968 Unknown [id number] 2.16.84 0.1.513644.3.579.2.593 1968 Unknown [id number] 2.16.84 0.1.706769.3.579.2. 1968 Unknown [id number] 2.16.84 0.1.651013.3.579.2.593 1968 Unknown [id number] 2.16.84 0.1.508844.3.579.2.593 1968 Unknown [id number] 2.16.84 0.1.537323.3.579.2.593 1968 Unknown [id number] 2.16.84 0.1.795782.3.579.2.593 1968 Unknown [id number] 2.16.84 0.1.350432.3.579.2.593 1968 Unknown [id number] 2.16.84 0.1.825919.3.579.2.593 1968 Unknown [id number] 2.16.84 0.1.192225.3.579.2.593 1968 Unknown [id number] 2.16.84 0.1.837927.3.579.2.593 1968 Unknown [id number] 2.16.84 0.1.061373.3.579.2.593 1968 Unknown [id number] 2.16. 840.1.382618.3.579.2.196 1968 Unknown [id number] 2.16. 840.1.945511.3.579.2.196 1968 Unknown [id number] 2.16. 840.1.229589.3.579.2.196 1959 Unknown [id number] Unknown [id number] Unknown [id number] 2.16.8 40.1.526052.3.579.2.531 Social History Date Type Detail Facility Start: 05-14-2020 End: 06-23-2021 Tobacco smoking status [facility] Smoker (finding) [facility] Start: 1970 Sex Assigned At Female F [facility] Start: 06-09-2024 End: 06-15-2024 History of tobacco use [facility] Tobacco smoking stat [facility] Tobacco smoking consumption unknown [facility] Start: 1970 [facility] assigned at [facility] Start: 06-09-2024 [facility] History of tobacco use [facility] Start: 06-09-2024 Tobacco use and exposure Smokeless tobacco non-user [facility] Start: 06-09-2024 Alcoholic beverage intake Ex-drinker (finding) [facility] Start: 06-09-2024 End: 06-15-2024 History of Social function [facility] Adult Depression Screening Assessment 3 [facility] Medical Equipment Procedure Code Equipment Code Equipment Origin al Text Equipment Identifier Dates Fusion, spine, lumbar, XLIF CANCELLOUS COARSE 7.5CC FDA Start: 05-22-2020 Fusion, spine, lumbar, XLIF Bone-screw internal spinal fixation system, non-sterile ()[id number] FDA Start: 05-22-2020 Fusion, spine, lumbar, XLIF Bone-screw internal spinal fixation system, non-sterile ()[id number] FDA Start: 05-22-2020 Fusion, spine, lumbar, XLIF Bone-screw internal spinal fixation system, non-sterile ()[id number] FDA Start: 05-22-2020 Fusion, spine, lumbar, XLIF CANCELLOUS COARSE 7.5CC FDA Start: 05-22-2020 Fusion, spine, lumbar, XLIF Bone-screw internal spinal fixation system, non-sterile ()[id number] FDA Start: 05-22-2020 Fusion, spine, lumbar, XLIF Bone-screw internal spinal fixation system, non-sterile ()[id number] FDA Start: 05-22-2020 Fusion, spine, lumbar, XLIF Polymeric spinal fusion cage, non-sterile ()[id number] FDA Start: 05-22-2020 Fusion, spine, lumbar, XLIF Dura mater graft, bovine ()[id number] FDA Start: 05-22-2020 Fusion, spine, lumbar, XLIF MAS REDUCTION FIXATION ADD LEV FDA Start: 05-22-2020 Fusion, spine, lumbar, XLIF XLIF 1 LEVEL MAS REDUCTION FDA Start: 05-22-2020 Fusion, spine, lumbar, XLIF Spinal fusion graft kit [id number] FDA Start: 05-22-2020 Fusion, spine, lumbar, XLIF Bone matrix implant, human-derived ()[id number] FDA Start: 05-22-2020 Fusion, spine, lumbar, XLIF Metallic spinal fusion cage, non-sterile ()[id number] FDA Start: 05-22-2020 Fusion, spine, lumbar, XLIF Bone-screw internal spinal fixation system, non-sterile ()[id number] FDA Start: 05-22-2020 Fusion, spine, lumbar, XLIF [...] Desired Activity /State Clinical Notes 01-07-2022 to 06-23-2024 Telephone Encounter - Ness Corbett RN - 06/23/2024 11:11 AM ESTTelephone Encounter - Ness Corbett RN - 06/23/2024 11:11 AM ESTTelephone Encounter - Mrata Walker - 06/22/2024 9:51 AM EST Note Date & Type Note Facility 06-23-2024 Telephone encounter Note Neuro SPINE CARE COORDINATION QUICK NOTE Called patient, no answer. Left non-detailed VM on non-identified VM box instructing patient to call office or check MYC messages for details. Ness Corbett RN June 23, 2024 11:12 AM [facility] 06-23-2024 Miscellaneous Notes Neuro SPINE CARE COORDINATION QUICK NOTE Called patient, no answer. Left non-detailed VM on non-identified VM box instructing patient to call office or check MYC messages for details. Ness Corbett RN June 23, 2024 11:12 AM Pt called asking for orders informed by on OV 06/16/24. Discussed with patient will order CT and EMG as well as standing xray Pls send MyC msg once orders are ready so that Pt can schedule. documented in this encounter [facility] 06-22-2024 Telephone encounter Note Pt called asking for orders informed by on OV 06/16/24. Discussed with patient will order CT and EMG as well as standing xray Pls send MyC msg once orders are ready so that Pt can schedule. [facility] 06-16-2024 Note HNO ID: [id number] Author: JOELLE SARMIENTO MD Service: ? Author Type: Physician Type: Progress Notes Filed: 06/16/2024 17:55 Note Text: Rescheduled, no charge [facility] 06-16-2024 Note HNO ID: [id number] Author: JOELLE SARMIENTO MD Service: ? Author Type: Physician Type: Progress Notes Filed: 06/16/2024 09:36 Note Text: I have communicated my name and active licensure. The patient's identity and physical location were verified at the time of this visit. Either the patient or their legal service support representative has been informed of the risks and benefits of -- and alternatives to -- treatment through a remote evaluation and consents to proceed with the evaluation remotely. Patient reports having surgery in 2019, L4-S1 fusion. Woke up with right foot drop and dysesthesias. Foot drop improved, pain has not. Limiting ADLs and working. MRI shows left lateral approach with interbody L4-5 and left sided TLIF cage through right facetectomy. No obvious nerve compression. Discussed with patient will order CT and EMG as well as standing xray in order to see if there is continued radiculopathy and dennervation vs reinnervation from her operation 5 years ago. Will f/u after I spent 20 minutes in the visit, with more than 50% of the total yerk-xf-phsn time of the visit in counseling / coordination of care. [facility] 06-16-2024 History of Presen t illness Narrative I have communicated my name and active licensure. The patient's identity and physical location were verified at the time of this visit. Either the patient or their legal service support representative has been informed of the risks and benefits of -- and alternatives to -- treatment through a remote evaluation and consents to proceed with the evaluation remotely. Patient reports having surgery in 2019, L4-S1 fusion. Woke up with right foot drop and dysesthesias. Foot drop improved, pain has not. Limiting ADLs and working. MRI shows left lateral approach with interbody L4-5 and left sided TLIF cage through right facetectomy. No obvious nerve compression. Discussed with patient will order CT and EMG as well as standing xray in order to see if there is continued radiculopathy and dennervation vs reinnervation from her operation 5 years ago. Will f/u after I spent 20 minutes in the visit, with more than 50% of the total efev-xt-bjfv time of the visit in counseling / coordination of care. documented in this encounter [facility] 03-10-2024 Note HNO ID: [id number] Author: KENAN GODOY APRN.AERODYNAMICS PROFESSOR Service: ? Author Type: Nurse Practitioner Type: [...] is most comfortable position Provider Dr Aby Mark Requesting guillermina Priro sur - lumbar - [facility] - 2 cages CMT: Inj, gabapentin, meloxicam, voltaren cream, heat, mdp x1 [place] - 3x/dy Studies (Reports unless indicated) Mri lumbar report Lumbarization S1 S/p :L4-S1 fusion L5/S1 mod b/l FS S1/2 paraspinal muscle mod to severe atrophy Disposition: Please schedule with dr sarmiento if patient would like soon can schedule with myself. Please instruct patient to bring copy of imaging and injection history for review. [facility] 03-10-2024 History of Presen t illness Narrative Per Triage: Kim Hill is a 53 year old female that requests evaluation of lumbar. Per review, they have symptoms of LB/legs/feet - numbness & burning pain only when sitting/standing/walking - numbness & weakness in legs - r worse then l - r drop foot - standing & sitting most uncomfortable position - laying is most comfortable position Provider Dr Aby Mark Requesting guillermina Priro sur - lumbar - [facility] - 2 cages CMT: Inj, gabapentin, meloxicam, voltaren cream, heat, mdp x1 [place] - 3x/dy Studies (Reports unless indicated) Mri [...] Health Provider or Pain Management Provider at [facility]? No If answer is YES please schedule directly with surgeon, triage does not need to be completed. Is this a self-referral No If not, who is the Referring Provider Dr Aby Mark Is this a 2nd opinion from another spine surgeon? Yes Were you offered surgery? No MRI/CT/myelogram within 12 months? Yes If NO , please refer to medical spine or PCP to complete above imaging, triage does not need to be completed If YES, please ask for the name/address of the facility where the MRI/CT/myelogram was completed: [place] [address] MRI/CT/myelogram viewable in Epic: No If not, please provide [phone] to fax in imaging reports for review. Also, please inform patient to hand carry imaging disc to appointment. XR (spine) within 12 months: Yes If YES, please ask for the name/address of the facility where the XR was completed: [place] [address] Dr. Freeman's patients: Have you had previous [...] therapy was completed [facility] [place] - [address] [place] [address] Have you tried any other kinds of non-surgical treatments in the last 12 months? (For example: NSAIDS, muscle relaxants, analgesics, oral steroids, Chiropractor, Acupuncture): gabapentin, meloxicam, voltaren cream, heat, mdp x1 4. Are you currently taking daily prescribed narcotic medications for your current symptoms (For example Oxycodone, Hydrocodone, Tramadol, Morphine, Other)? Yes [place] - 3x/dy 5. Have you had previous spinal surgery for this same symptoms? Yes If YES please ask for the name of facility/address of where the surgery was completed: [facility] cages Additional Comments [phone] documented in this encounter [facility] 03-06-2024 Note HNO ID: [id number] Author: ?, ?, ? Service: ? Author Type: ? Type: Progress Notes Filed: 03/10/2024 16:07 Note Text: Patient name: Kim Hill Are you being referred by a [facility] Spine Health Provider or Pain Management Provider at [facility]? No If answer is YES please schedule directly with surgeon, triage does not need to be completed. Is this a self-referral No If not, who is the Referring Provider Dr Aby Mark Is this a 2nd opinion from another spine surgeon? Yes Were you offered surgery? No MRI/CT/myelogram within 12 months? Yes If NO , please refer to medical spine or PCP to complete above imaging, triage does not need to be completed If YES,? please ask for the name/address of the facility where the MRI/CT/myelogram was completed: [facility] [address] [place] [address] MRI/CT/myelogram viewable in Epic: No If not, please provide [phone] to fax in imaging reports for review. Also, please inform patient to hand carry imaging disc to appointment. XR (spine) within 12 months: Yes If YES,? please ask for the name/address of the facility where the X[place] [address] Dr. Freeman's patients: Have you had previous [...] therapy was completed [facility] [place] [address] Have you tried any other kinds of non-surgical treatments in the last 12 months? (For example: NSAIDS, muscle relaxants, analgesics, oral steroids, Chiropractor, Acupuncture): gabapentin, meloxicam, voltaren cream, heat, mdp x1 4. Are you currently taking daily prescribed narcotic medications for your current symptoms (For example Oxycodone, Hydrocodone, Tramadol, Morphine, Other)? Yes [place] - 3x/dy 5. Have you had previous spinal surgery for this same symptoms? Yes If YES? please ask for the name of facility/address of where the surgery was completed: [facility] - 2 cages Additional Comments [phone] [facility] 10-06-2022 Note CONSULTATION CONSULTATION DATE: 10/06/2022 TO: [...] pill b.i.d. and to continue to use [place] 7.5 mg t.i.d. We did reduce the use at her last visit from 90 pills a month to 80 pills to last one month's time. She appears to be tolerating this transition quite well. I have asked her to continue with gabapentin 600 mg t.i.d. Her JOYCE on today's visit is 28. She reports the [place] does improve her quality of life, level of functioning and sleep pattern, and she denies any side effects. As part of providing excellent, safe, comprehensive care, the following was completed at our patient's visit: 1. A medication reconciliation and review to ensure accurate knowledge of current/active medications, including asking our patients to inform us about any andz-bmy-rcfkywl medications or herbal remedies/nutritional supplements/alternative remedies. 2. [...] options with their primary care provider. [facility] 09-01-2022 Note CONSULTATION CONSULTATION DATE: 09/01/2022 [...] our patients to inform us about any bglo-ldu-luwbeuo medications or herbal remedies/nutritional supplements/alternative remedies. 2. [...] options with their primary care provider. [facility] 08-17-2022 Evaluation note Encounter Date Diagnosis Assessment Notes Jul, Other chronic pain (ICD-10 - G89.29) Jul, Low back pain, unspecified (ICD-10 - M54.50) [facility] Other 02-16-2023 NoteCONSULTATION CONSULTATION DATE: 07/16/2022 HISTORY OF PRESENT ILLNESS: This is a 51-year-old female who returns to the clinic status post bilateral SI joint injection completed on 06/23/2022. The patient received 80% relief for one day and on day two felt worse than her normal baseline pain. Today, she rates her pain 8/10. Medications include gabapentin 600 mg t.i.d., [place] 7.5/325 b.i.d. and Mobic 15 mg daily. [...] her medications; Mobic 15 mg daily and [place] 7.5/325 b.i.d. She will return to the clinic in six weeks' time, in which we will, in addition to her PCPs office, review the MRI and form a plan of care at that time. Patient is in agreement to this plan.[facility] [id number] Note CONSULTATION CONSULTATION DATE: 05/29/2022 HISTORY OF [...] down. Medications include gabapentin 600 mg t.i.d., [place] 7.5/325 b.i.d. and diclofenac 50 mg daily. [...] care and will be followed up thereafter.[id number] NoteCONSULTATION CONSULTATION DATE: 05/14/2022 HISTORY OF PRESENT [...] as well as gabapentin 600 mg t.i.d., [place] 7.5/325 t.i.d. At her last appointment, she [...] Refills for gabapentin 600 mg t.i.d. and Dallas 7.5/325 b.i.d. will be sent to her pharmacy. Patient agrees to move forward with the procedure. She will followed up in the clinic thereafter.[facility] [id number] NotePAIN MANAGEMENT CONSULTATION CONSULTATION DATE: 05/14/2022 CHIEF [...] with a sacroiliac joint injection under fluoroscopy.[facility] [id number] NoteCONSULTATION CONSULTATION DATE: 03/12/2022 ADDENDUM DIAGNOSIS: Lumbar spondylosis, lumbar degenerative disc disease, chronic lower back pain and a history of a lumbar fusion.[facility] [id number] Note CONSULTATION CONSULTATION DATE: 03/12/2022 This is [...] Current medications include gabapentin 600 mg t.i.d., Dallas 7.5/325 b.i.d., diclofenac cream and ibuprofen. She [...] with her vitamins as well as her Dallas. The dose of frequency will not be changed. We will have the patient return to the clinic in two months' time for re-evaluation. The patient is inquiring about an increase of her Dallas, possibly during the winter months. There will be no changes today.[facility] [id number] NoteCONSULTATION CONSULTATION DATE: 01/07/2022 This is a [...] Current medications include gabapentin 600 mg b.i.d., Dallas 7.5/325 b.i.d., diclofenac topical, multivitamin regimen and ibuprofen p.r.n. She has tried diclofenac in the past but was unable to tolerate it due to stomach issues but low-dose ibuprofen she can tolerate. She is needing Dallas and gabapentin refill today. REVIEW OF SYSTEMS, [...] subsequently move to the left. Refill for Dallas 7.5/325 b.i.d. and gabapentin 600 mg b.i.d. will be sent to the pharmacy. The patient is encouraged to increase magnesium in her vitamin regimen as well as menthol heat rub, seated stretches that were demonstrated and heat application. The patient agrees with the plan of care and would like to move forward and she will follow-up in the clinic post procedure.[facility] HospitalEvaluation noteNo assessment information availableWhite Hospital Ctr Work Phone: Evaluation noteNo InformationNortPunxsutawney [facility] Other evaluation note* Diagnosis Lumbar radiculopathy- Primary Thoracic or lumbosacral neuritis or radiculitis, unspecified documented in this encounter [facility] [place] [facility]* Diagnosis Radiculopathy of lumbar region- Primary Thoracic or lumbosacral neuritis or radiculitis, unspecified Spinal stenosis of lumbar region without neurogenic claudication Spinal stenosis, lumbar region, without neurogenic claudication Right foot drop Other acquired deformity of ankle and foot documented in this encounter [facility] general Narrative - Reported* Type Description Date Medical History osteoarthritis Medical History rheumatoid arthritis Medical History carpal tunnel Medical History fibromyalgia Medical History hypertension Medical History Arthritis Medical History asthma Medical History obesity Medical History pneumonia Medical History anxiety Surgical History hysterectomy 01/2012 Surgical History back surgery Surgical History left middle finger surgery Hospitalization History see above Hospitalization History 4 child births [facility] Other reason for referral (narrative)* Diagnostic Procedure Only (Routine) - New Request Specialty Diagnoses / Procedures Referred By Claritza schumacher Referred To Contact XR IMAGING Diagnoses Radiculopathy of lumbar region Spinal stenosis of lumbar region without neurogenic claudication Procedures XR LUMBAR MOTION 4V AP/LAT/ FLEX/EXT RADEX SPINE LUMBOSACRAL MINIMUM 4 VIEWS Kenan Godoy APRN.AERODYNAMICS PROFESSOR [address] [place] [address] Xr Imaging [place] [address] Referral ID Status Reason Start Date Expiration Date Visits Requested Visits Authorized [id number] New Request Auto-Generat ed Referral 06/23/2024 07/23/2025 1 1 * Outpatient Procedure (Routine) - New Request Specialty Diagnoses / Procedures Referred By Contac t Referred To Contact [facility] Diagnoses Radiculopathy of lumbar region Spinal stenosis of lumbar region without neurogenic claudication Right foot drop Procedures EMG(NEURO/NI) NERVE CONDUCTION STUDIES 9-10 STUDIES Kenan Godoy APRN.AERODYNAMICS PROFESSOR [address] [place] [address] Neu[facility] [place] [address] [place] [address] Referral ID Status Reason Start Date Expiration Date Visits Requested Visits Authorized [id number] New Request Auto-Generat ed Referral 06/23/2024 06/23/2025 1 1 * MRI/CT (Routine) - New Request Specialty Diagnoses / Procedures Referred By Contac t Referred To Contact CT IMAGING Diagnoses Radiculopathy of lumbar region Spinal stenosis of lumbar region without neurogenic claudication Procedures CT LUMBAR SPINE WO IVCON CT LUMBAR SPINE W/O CONTRAST MATERIAL Kenan Godoy APRN.AERODYNAMICS PROFESSOR [address] [place] [address] Ct Imaging [place] [address] Referral ID Status Reason Start Date Expiration Date Visits Requested Visits Authorized [id number] New Request Auto-Generat ed Referral 06/23/2024 07/23/2025 1 1 [facility] Advance Directives Advance Directive Response Recorded Date/ [...] Active Gina Guerrero MD Attending Provider Active 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 Specialty Start Date End Date Aby Mark CNP [address] [place] [id number] Referring Family Medicine 03/02/24 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 Specialty Start Date End Date Aby Mark CNP [address] [place] [id number] Referring Family Medicine 03/02/24 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 Specialty Start Date End Date Aby Mark CNP [address] [place] [id number] Referring Family Medicine 03/02/24 Goals (unrecognized section and content) Goals may be documented in a n alternate sectionGoals may be documented in an alternate sectionGoals may be documented in an alternate sectionGoals may be documented in an alternate sectionNo InformationNo Information INFORMATION SOURCE (unrecogn ized section and content) DATE CREATED AUTHOR 08/01/2022 [facility] dical Specialist DATE CREATED AUTHOR AUTHOR'S ORGANIZ ATION 11/06/2022 [facility] DATE CREATED AUTHOR AUTHOR'S ORGANIZ ATION 11/24/2023 [facility] DATE CREATED AUTHOR AUTHOR'S ORGANIZ ATION 04/30/2024 [facility] DATE CREATED AUTHOR AUTHOR'S TERRY LOYD 06/19/2024 [facility] REASON FOR VISIT (unrecogniz ed section and content) Reason Comments Established Patient Reason Comments Orders Source Comments (unrecognize d section and content) In the event this informatio n is protected by the Federal Confidentiality of Alcohol and Drug Abuse Patient Records regulations: The Federal rules restrict any use of the information to criminally investigate or prosecute any alcohol or drug abuse patient.[facility] the event this information is protected by the Federal Confidentiality of Alcohol and Drug Abuse Patient Records regulations: The Federal rules restrict any use of the information to criminally investigate or prosecute any alcohol or drug abuse patient.[facility] CampusIn the event this information is protected by the Federal Confidentiality of Alcohol and Drug Abuse Patient Records regulations: The Federal rules restrict any use of the information to criminally investigate or prosecute any alcohol or drug abuse patient.[facility] FOR RECORDS PERTAINING TO PATIENTS WHO ARE [...] BE BASED ON THE PRIMARY CLINICAL RECORDS. [facility] [employer] [facility]. provides no warranty or guarantee of the accuracy or completeness of information in this document.
--- OUTSIDE RECORDS SUMMARY | 2024-07-10 08:52 | XMS_ITS | CCD ---
Author Organization [facility] Care Team Providers Care Car Rental Agent Name Role Phone Roberto Roth Primary Care Provider [phone] Justice Cruz Attending Provider [phone] DO Roberto Roth Primary Care Provider MD Hood Rausch Attending Provider [phone] DO Roberto Roth Primary Care Provider [phone] CALVIN Mark Attending Provider MD Paresh Tian Attending Provider RothDO Roberto oliva Primary Care Provider CALVIN Mark Attending Provider MD Paresh Tian Attending Provider [phone] MD Gina Guerrero Attending Provider Gina Guerrero [...] Unavailable LAKSHMIPATHY ., NARENDOMAR Admitting Manjula vailable ARUSCH ., DR HOOD Hernandez Attending Unavailable RAUSCH [...] Attending Unavailable SINGH ., ADA Admitting Unavailable ROHT, DR ROBERTO Bhakta Primary Care Unavailable ORLAND, DR DASHA Gomez Consulting Unavailable SINGH ., [...] Guerrero Admitting Unavailable Aby Mark CNP Unavailable [phone] Panda BUSTILLO, Aaron Musa Attending Unavailable Panda BUSTILLO, Aaron Musa Attending Unavailable Panda BUSTILLO, Aaron Musa Attending Unavailable ABY MARK Referring Unavailable JOELLE SARMIENTO Attending Unavailable JOELLE SARMIENTO Attending Unavailable ABY MARK Referring Unavailable Unavailable Unavailable Unavailable Allergies Allergy Classification Reported Allergen(s) Allergy Type Date of Onset Reaction(s) Facility (6 sources) Amoxicillin; Translations: [amoxicillin] Drug Allergy 05-14-20 20 N[facility]a [facility] (10 sources) Penicillins; Translations: [Penicillins] Propensity to adverse reactions 07-24-19 14 Rash, Diarrhea [facility] (6 sources) clavulanic acid; Translations: [clavulanic acid] Propensity to adverse reactions 05-14-20 20 [facility] (3 sources) Amoxicillin / Clavulanate; Translations: [Augmentin] Drug Allergy 07-24-19 14 Unknown [facility] Repository (2 sources) Azithromycin Drug Allergy diarrhea [facility] [employer] Other (2 sources) Penicillin G Drug Allergy Unknown [facility] [employer] Other Medications Current Medications Medication Drug Class(es) Dates Sig (Normalized) Sig (Original) acetaminophen 500 mg oral tablet (4 sources) Start: 05-31-2020 take 500 mg by mouth every four hours Acetaminophen Active 500 MG PO Q4H 100 May 31, 2020 1:00am [id number] 200 actuat albuterol 0.09 mg/actuat metered dose [...] take 1 puff(s) by inhalation once daily fiwzbfhkfnr-apfxywyrc-lw lanter (TRELEGY ELLIPTA) 100-62.5-25 mcg inhalation powder [...] by mouth three times daily Hydrocodone-Acetami nophen ([place]) 5-325 mg Tablet Discontinued 1 TAB PO Three times daily March 18, 2019 12:00am May 23, 2020 4:59pm take 7.5 mg by mouth three times daily hydrocodone/acetaminophen (NORCO ORAL) T francie 7.5 mg by mouth three times a day. Active [place] Active azithromycin 250 mg oral tablet (4 [...] sources) High risk drug monitoring status; Translations: [retirement (current) use of opiate analgesic] Episodic Other [...] Test Name Value Interpretation Reference Range Facility [facility] 06-09-2024 CNOV Office Visit (SPNSMN ) KIM HILL ([id number]) 1970 F Date Time Provider Department 06/09/24 4:00 PM JOELLE SARMIENTO JOSEMO During your visit today, we recorded the following information about you: Pulse Blood pressure Weight Height 92/minute 104/52 98 kg 1.6 m Joelle Sarmiento MD 06/16/2024 5:55 PM Signed Rescheduled, no charge Referring Provider: ABY MARK [[id number]] Allergies As of Date: 06/09/2024 Noted Allergy Reaction PENICILLINS 06/09/2024 2 - Rash 6 - Diarrhea Date Reviewed: 06/09/2024 Reviewed by: Olive Ross OCCA - Fully Assessed Reason for Visit: New Patient [172] New Patient Evaluation [154] Cmt: Postop complications from prior surgery outside [facility] Primary Visit Diagnosis:Chronic bilateral low back pain [...] mg by mouth daily at bedtime. - kxlflckrfbc-vtfrxcson-i ilanter (TRELEGY ELLIPTA) 100-62.5-25 mcg inhalation powder [...] Status:Closed by JOELLE SARMIENTO on 06/16/24 Normal [facility] MRI Lumbar Spine w/o + w/on [...] Justice Lucas on 07/31/2022 0915 Normal [employer] Automated erythrocytes count in urine sediment (number/area)Ordered By: Paresh Tian on 07-16-2022 RBC Auto (Urine sed) [#/Area] 1-2 [HPF] 0-4 [facility] Automated leukocytes count i n urine sediment (number/area)Ordered By: Paresh Tian on 07-16-2022 WBC Auto (Urine sed) [#/Area] 20-49 [HPF] 0-4 [facility] Basophils Auto (Bld) [#/Vol] Ordered By: Paresh Tian on 07-16-2022 Basophils (Bld) [#/Vol] 0.0 10*3/uL 0.0-0.2 [facility] Basophils/100 WBC Auto (Bld) Ordered By: Paresh Tian on 07-16-2022 Basophils/100 WBC (Bld) 0.4 % . F [facility] Bilirubin Test strip Ql (U)O rdered By: Paresh Tian on 07-16-2022 Bilirubin Ql (U) Negative Negative [facility] C reactive protein [Mass/vol ume] in Serum or PlasmaOrdered By: Paresh Tian on 07-16-2022 CRP [Mass/Vol] 0.8 mg/dL 0.0-1.0 [facility] Color Auto (U)Ordered By: Afia Tian on 07-16-2022 Color (U) Yellow Yellow [facility] Creatinine and Glomerular fi ltration rate.predicted panel (S/P/Bld)Ordered By: Paresh Tian on 07-16-2022 Creatinine [Mass/Vol] 0.74 mg/dL 0.44-1.03 [facility] Eosinophils Auto (Bld) [#/Vo l]Ordered By: Paresh Tian on 07-16-2022 Eosinophils (Bld) [#/Vol] 0.1 10*3/uL 0.0-0.45 [facility] Eosinophils/100 WBC Auto (Bl d)Ordered By: Paresh Tian on 07-16-2022 Eosinophils/100 WBC (Bld) 1.1 % . [facility] Erythrocyte distribution wid th Auto (RBC) [Ratio]Ordered By: Paresh Tian on 07-16-2022 Erythrocyte distribution width (RBC) [Ratio] 13.0 % 11.9-15.3 [facility] Erythrocyte sedimentation ra te by Photometric methodOrdered By: Paresh Tian on 07-16-2022 ESR Photometric method (Bld) [Velocity] 45 mm/hr 0-29 [facility] Estimated glomerular filtrat ion rate (GFR) non- AmericanOrdered By: Paresh Tian on 07-16-2022 GFR/1.73 sq M.predicted among non-blacks MDRD (S/P/Bld) [Vol rate/Area] > 60 mL/Min [facility] Hematocrit Auto (Bld) [Volum e fraction]Ordered By: Paresh Tian on 07-16-2022 Hematocrit (Bld) [Volume fraction] 45.3 % 34.0-46.4 [facility] Hemoglobin [Mass/volume] in BloodOrdered By: Paresh Tian on 07-16-2022 Hemoglobin (Bld) [Mass/Vol] 15.2 g/dL 11.8-15.4 [facility] Ketones Auto test strip (U) [Mass/Vol]Ordered By: Paresh Tian on 07-16-2022 Ketones (U) [Mass/Vol] Negative Negative [facility] - UrinalysisOrder ed By: Paresh Tian on 07-16-2022 Hyaline casts LM Ql (Urine sed) 0-8 [LPF] 0-8 [facility] Leukocytes [#/volume] correc scot for nucleated erythrocytes in Blood by Automated counOrdered By: Paresh Tian on 07-16-2022 WBC corrected for nucl RBC Auto (Bld) [#/Vol] 10.4 10*3/uL 3.8-11.6 [facility] Lymphocytes Auto (Bld) [#/Vo l]Ordered By: Paresh Tian on 07-16-2022 Lymphocytes (Bld) [#/Vol] 3.7 10*3/uL 1.00-4.8 [facility] Lymphocytes/100 WBC Auto (Bl d)Ordered By: Paresh Tian on 07-16-2022 Lymphocytes/100 WBC (Bld) 35.0 % . [facility] MCH Auto (RBC) [Entitic mass ]Ordered By: Paresh Tian on 07-16-2022 MCH (RBC) [Entitic mass] 33.8 pg 24.7-34.3 [facility] MCHC Auto (RBC) [Mass/Vol]Or dered By: Paresh Tian on 07-16-2022 MCHC (RBC) [Mass/Vol] 33.6 g/dL 32.0-35.0 [facility] MCV Auto (RBC) [Entitic vol] Ordered By: Paresh Tian on 07-16-2022 MCV (RBC) [Entitic vol] 100.6 fL 80-100 F [facility] Mitotic spindle apparatus Ab [Titer] in Serum or Plasma by ImmunofluorescenceOrdered By: Paresh Tian on 07-16-2022 Mitotic spindle apparatus Ab IF [Titer] 1:160 . [facility] Comment on above: ICAP nomenclature: A C-[id number] Monocytes Auto (Bld) [#/Vol] Ordered By: Paresh Tian on 07-16-2022 Monocytes (Bld) [#/Vol] 0.7 10*3/uL 0.0-0.8 [facility] Monocytes/100 WBC Auto (Bld) Ordered By: Paresh Tian on 07-16-2022 Monocytes/100 WBC (Bld) 6.8 % . F [facility] Neutrophils Auto (Bld) [#/Vo l]Ordered By: Paresh Tian on 07-16-2022 Neutrophils (Bld) [#/Vol] 5.9 10*3/uL 1.8-7.7 [facility] Neutrophils/100 WBC Auto (Bl d)Ordered By: Paresh Tian on 07-16-2022 Neutrophils/100 WBC (Bld) 56.7 % . [facility] Nitrite Test strip Ql (U)Ord ered By: Paresh Tian on 07-16-2022 Nitrite Ql (U) Negative Negative [facility] No Panel InformationOrdered By: Paresh Tian on 07-16-2022 Anti-Nuclear Antibody Comment 2 See comment . [facility] Comment on above: For more information about Hep-2 cell patterns useEyebrid Blazepatterns.org, the official website for the InternationalConsensus on Antinuclear Antibody (ASTER) Patterns (ICAP). --------A positive ASTER result may occur in healthy individuals (lowtiter) or be associated with a variety of diseases. Seeinterpretation chart which is not all inclusive:Pattern Antigen Detected Suggested Disease Association Homogeneous DNA(ds,ss), SLE - High titers Nucleosomes, Histones Drug-induced SLE Speckled Sm, WELCOME HOSTESS, SCL-70, SLE,MCTD,PSS (diffuse form), SS-A/SS-B Sjogrens Nucleolar SCL-70, PM-1/SCL High titers Scleroderma, PM/DM Centromere Centromere PSS (limited form) w/Crest syndrome variable Nuclear Dot [id number] Primary Biliary Cirrhosis Nuclear GP210, Primary Biliary CirrhosisMembrane kailyn A,B,C Performed at: [facility] [id number] Director: Collin Rodriguez PhD, Phone: [phone] Estimated GFR () > 60 mL/Min [facility] Comment on above: GFR estimated refere nce range: According to KDOQI guidelines, <60 ml/min/1.73m2 is sufficient to diagnose a patient with chronic kidney disease. Pharmacy Creatinine Clearance (Chem N/A [facility] Total Complement (CH50) >60 U/mL >41 F [facility] Comment on above: Age Male [...] to determine out of range values.Performed at: [facility] [id number] Director: Collin Rodriguez PhD, Phone: [phone] Nucleated erythrocytes [Pres ence] in Blood by Automated countOrdered By: Paresh Tian on 07-16-2022 Nucleated RBC Auto Ql (Bld) 0.1 /100{WBC} 0-0.5 [facility] Platelet mean volume Auto (B ld) [Entitic vol]Ordered By: Paresh Tian on 07-16-2022 Platelet mean volume (Bld) [Entitic vol] 8.4 fL 6.3-10.7 [facility] Platelets Auto (Bld) [#/Vol] Ordered By: Paresh Tian on 07-16-2022 Platelets (Bld) [#/Vol] 242 10*3/uL 150-450 [facility] Protein Auto test strip (U) [Mass/Vol]Ordered By: Paresh Tian on 07-16-2022 Protein (U) [Mass/Vol] Negative Negative [facility] RBC Auto (Bld) [#/Vol]Ordere d By: Paresh Tian on 07-16-2022 RBC (Bld) [#/Vol] 4.50 10*6/uL 3.60-5.00 [facility] Serum homogeneous pattern an tinuclear antibody (ASTER) titerOrdered By: Paresh Tian on 07-16-2022 Homogenous nuclear Ab pattern (S) [Titer] N/A [facility] Serum nuclear antibody titer Ordered By: Paresh Tian on 07-16-2022 Nuclear Ab (S) [Titer] Positive . [facility] Comment on above: Negative <1:80 Borde rline 1:80 Positive >1:80 Serum or plasma complement C 3 measurement (mass/volume)Ordered By: Paresh Tian on 07-16-2022 Complement C3 [Mass/Vol] 197 mg/dL 82-167 [facility] Comment on above: Performed at: [address] Director: Collin Rodriguez PhD, Phone: [phone] Serum or plasma complement C 4 measurement (mass/volume)Ordered By: Paresh Tian on 07-16-2022 Complement C4 [Mass/Vol] 42 mg/dL 12-38 [facility] Specific gravity Auto test s trip (U) [Rel density]Ordered By: Paresh Tian on 07-16-2022 Specific gravity (U) [Rel density] 1.018 1.001-1.03 0 [facility] Squamous epithelial cells de tection in urine sediment by light microscopyOrdered By: Paresh Tian on 07-16-2022 Epithelial cells.squamous LM Ql (Urine sed) 0-1 [HPF] 0-2 [facility] Urine bacteria detection by automated methodOrdered By: Paresh Tian on 07-16-2022 Bacteria Auto Ql (U) 4+ None Seen [facility] Urine clarity by refractomet ry automatedOrdered By: Paresh Tian on 07-16-2022 Clarity Refractometry automated (U) Clear Clear [facility] Urine culture routineOrdered By: Paresh Tian on 07-16-2022 Bacteria identified Cx Nom (U) Escherichia coli [facility] Urine glucose measurement by automated test strip (mass/volume)Ordered By: Paresh Tian on 07-16-2022 Glucose Auto test strip (U) [Mass/Vol] Normal mg/dL Normal [facility] Urine hemoglobin detection b y automated test stripOrdered By: Paresh Tian on 07-16-2022 Hemoglobin Auto test strip Ql (U) Negative Negative [facility] Urine leukocyte esterase det ection by automated test stripOrdered By: Paresh Tian on 07-16-2022 Leukocyte esterase Auto test strip Ql (U) 3+ Negative [facility] Urobilinogen Auto test strip (U) [Mass/Vol]Ordered By: Paresh Tian on 07-16-2022 Urobilinogen (U) [Mass/Vol] Normal mg/dL Normal [facility] WBC Auto (Bld) [#/Vol]Ordere d By: Paresh Tian on 07-16-2022 WBC (Bld) [#/Vol] 10.4 10*3/uL 3.8-11.6 [facility] pH Auto test strip (U)Ordere d By: Paresh Tian on 07-16-2022 pH (U) 6.5 [pH] 5.0-9.0 [facility] XR HIPS ZEINA 3_4V WO PELVISon [...] DASHA KHAN Date: 2022-05-15 07:49 Normal [facility] Covid-19 PCR (CVDTBH)on SARS-CoV-2 (COVID-19) RNA AMBERLY+probe Ql (Unsp spec) Not detected Normal NOT DETECTED [facility] Comment on above: Result Comment: This test is not yet approved or cleared by the [place] FDA. When there are no FDA-approved or cleared tests available, and other criteria are met, FDA can make tests available under an emergency access mechanism called an Emergency Use Authorization (EUA). The EUA for this test is supported by the Insurance Sales Professional of Health and Human Service's (HHS's) declaration [...] consistent with SARS-CoV-2. Performed By: #### C [facility] #### [facility] [address] [place] [address] Dr. Narendra Jacobsen COVID-19 Positive/NegativeOr dered By: Baljinder Rausch on 01-31-2022 SARS-CoV-2 (COVID-19) N gene AMBERLY+probe Ql (Resp) Negative Negative [facility] Comment on above: Testing for SARS-CoV -2 by RT-PCR This test was developed and its performance characteristics determined by [employer] ([employer]) and validated at the [facility]. This test has not been FDA [...] COVID-19 Positive/Negativeon 05-20-2020 COVID-19 Positive/Negative Negative Negative [facility] Comment on above: Testing for SARS-CoV -2 by RT-PCRThis test was developed and its performance characteristics determined by [employer] ([employer]) and validated at the [facility]. This test has not been FDA [...] Otheron 05-20-2020 Coronavirus 2019 PCR Interp N/A [facility] Automated basophil %on 05-14 Basophils/100 WBC (Bld) 0.5 % F [facility] Automated basophil counton 1 07-15-2019 Basophils (Bld) [#/Vol] 0.0 10*3/uL 0.0-0.2 [facility] Automated blood lymphocyte c ount (number/volume)on 05-14-2020 Lymphocytes (Bld) [#/Vol] 2.8 10*3/uL 1.00-4.8 [facility] Automated blood lymphocyte c ount as percentage of total leukocyteson 05-14-2020 Lymphocytes/100 WBC (Bld) 35.0 % [facility] Automated blood monocyte cou nton 05-14-2020 Monocytes (Bld) [#/Vol] 0.6 10*3/uL 0.0-0.8 [facility] Automated blood platelet cou nt (count/volume)on 05-14-2020 Platelets (Bld) [#/Vol] 225 10*3/uL 150-450 [facility] Automated blood platelet jose n volume measurementon 05-14-2020 Platelet mean volume (Bld) [Entitic vol] 8.2 fL 6.3-10.7 [facility] Automated eosinophil %on Eosinophils/100 WBC (Bld) 1.5 % [facility] Automated eosinophil counton 05-14-2020 Eosinophils (Bld) [#/Vol] 0.1 10*3/uL 0.0-0.45 [facility] Automated erythrocyte distri bution width ratioon 05-14-2020 Erythrocyte distribution width (RBC) [Ratio] 12.3 % 11.9-15.3 [facility] Automated erythrocyte mean c orpuscular hemoglobin (mass per erythrocyte)on 05-14-2020 MCH (RBC) [Entitic mass] 35.2 pg 24.7-34.3 [facility] Automated erythrocyte mean c orpuscular hemoglobin concentration measurement (mass/volon 05-14-2020 MCHC (RBC) [Mass/Vol] 34.2 g/dL 32.0-35.0 [facility]ir [facility] Automated erythrocyte mean c orpuscular volumeon 05-14-2020 MCV (RBC) [Entitic vol] 102.9 fL 80-100 F [facility] Automated monocyte %on 05-14 Monocytes/100 WBC (Bld) 7.0 % F [facility] Automated neutrophil %on Neutrophils/100 WBC (Bld) 56.0 % [facility] Blood erythrocytes automated count (number/volume)on 05-14-2020 RBC (Bld) [#/Vol] 4.08 10*6/uL 3.60-5.00 [facility] Blood hemoglobin measurement (mass/volume)on 05-14-2020 Hemoglobin (Bld) [Mass/Vol] 14.3 g/dL 11.8-15.4 [facility] Blood leukocytes automated c ount (number/volume)on 05-14-2020 WBC (Bld) [#/Vol] 7.9 10*3/uL 4.5-11.0 [facility] Blood neutrophil count by au tomated method (number/volume)on 05-14-2020 Neutrophils (Bld) [#/Vol] 4.4 10*3/uL 1.8-7.7 [facility] Estimated glomerular filtrat ion rate (GFR) non- Americanon 05-14-2020 GFR/1.73 sq M predicted among non-blacks MDRD (S/P/Bld) [Vol rate/Area] mL/min/{1.73_m2} [facility] Hematocrit [Volume Fraction] of Blood by Automated counton 05-14-2020 Hematocrit (Bld) [Volume fraction] 41.9 % 34.0-46.4 [facility] Otheron 05-14-2020 GFR/1.73 sq M.predicted MDRD (S/P/Bld) [Vol rate/Area] mL/min/{1.73_m2} [facility] Comment on above: GFR estimated refere nce range: According to KDOQI guidelines, <60 ml/min/1.73m2 is sufficient to diagnose a patient with chronic kidney disease. Nucleated RBC/100 WBC (Bld) [Ratio] 0.1 % 0-0.5 [facility] Pharmacy Creatinine Clearance (Chem N/A [facility] Serum or plasma calcium octavio urement (mass/volume)on 05-14-2020 Calcium [Mass/Vol] 10.1 mg/dL 8.2-10.2 [facility] Serum or plasma chloride jose surement (moles/volume)on 05-14-2020 Chloride [Moles/Vol] 101 mmol/L 95-114 [facility] Serum or plasma creatinine m easurement with calculation of estimated glomerular filtron 05-14-2020 Creatinine [Mass/Vol] 0.60 mg/dL 0.44-1.03 [facility] Serum or plasma glucose octavio urement (mass/volume)on 05-14-2020 Glucose [Mass/Vol] 94 mg/dL 70-100 [facility] Comment on above: ADA recommended refe rence rangeRandom Glucose Reference Range is dependent on time and content of last meal. Glucose of more than 200 mg/dL in a nonstressed, ambulatory subject supports the diagnosis of Diabetes Mellitus. Serum or plasma potassium me asurement (moles/volume)on 05-14-2020 Potassium [Moles/Vol] 4.3 mmol/L 3.5-5.1 [facility] Serum or plasma sodium measu rement (moles/volume)on 05-14-2020 Sodium [Moles/Vol] 140 mmol/L 136-146 [facility] Serum or plasma total carbon dioxide measurement (moles/volume)on 05-14-2020 CO2 [Moles/Vol] 27.2 mmol/L 22.0-30.0 [facility] Serum or plasma urea nitroge n measurement (mass/volume)on 05-14-2020 Urea nitrogen [Mass/Vol] 7 mg/dL 9-23 [facility] Vital Signs Date Time Vital Sign Value Performing Clinician Facility 08-17-2022 16:00-0400 Body height 160.02 cm Gina Blades Other [facility] Other 08-17-2022 16:00-0400 Body mass index (BMI) [Ratio] 40.56 kg/m2 Gina Blades Other [facility] Other 08-17-2022 16:00-0400 Body weight 103.87 kg Gina Blades Other [facility] Other 08-17-2022 16:00-0400 Diastolic blood pressure 82 mm[Hg] Gina Blades Other [facility] Other 08-17-2022 16:00-0400 Systolic blood pressure 126 mm[Hg] Gina Blades Other [facility] Other Encounters Encounter Date Encounter Type Care Provider Facility Start: 06-22-2024 End: 06-23-2024 Telephone encounter Joelle Sarmiento MD Work Phone: Neurology Comment on above: Orders Start: 06-16-2024 End: 06-16-2024 ambulatory Joelle Sarmiento MD Work Phone: [facility] Comment on above: Lumbar radiculopathy (Primary Dx) Start: 06-16-2024 End: 06-16-2024 Telemedicine consultation with patient Joelle Sarmiento MD Work Phone: [facility] Start: 06-09-2024 ambulatory JOELLE SARMIENTO Facil ity:[facility] Start: 04-24-2024 End: 04-24-2024 ambulatory Aaron Mosqueda MD Facility:[facility] Start: 03-27-2024 End: 03-27-2024 ambulatory Aaron Mosqueda MD Facility:[facility] Start: 03-06-2024 End: 03-10-2024 Chart abstracting Joelle Sarmiento MD Work Phone: Neurology Start: 10-18-2023 End: 10-18-2023 ambulatory Aaron Mosqueda MD Facility:[facility] Start: 10-27-2022 ambulatory NARENDRANATH LAKSHMIPATHY . Facility:[facility] Start: 10-13-2022 End: 10-13-2022 ambulatory NARENDRANATH LAKSHMIPATHY . Facility:[facility] Start: 10-06-2022 End: 10-07-2022 ambulatory NARENDRANATH LAKSHMIPATHY . Facility:[facility] Start: 09-08-2022 End: 09-08-2022 ambulatory Gina Guerrero Other [facility] [employer] Other Start: 09-08-2022 Telephone encounter Gina Tamayo [facility] Start: 09-01-2022 End: 09-02-2022 ambulatory NARENDRANATH LAKSHMIPATHY . Facility:[facility] Start: 08-17-2022 End: 08-17-2022 Patient encounter procedure DO Roberto Roth Work Phone: [facility] Work Phone: Start: 08-17-2022 End: 08-17-2022 ambulatory DO Roberto Roth Work Phone: [facility] Work Phone: Start: 08-17-2022 Office outpatient ne w 45 minutes Gina Guerrero [facility] Start: 07-16-2022 End: 07-17-2022 ambulatory DO Roberto Roth Work Phone: [facility] Work Phone: Start: 07-16-2022 End: 07-16-2022 Patient encounter procedure DO Roberto Roth Work Phone: [facility] [address] Work Phone: Start: 07-03-2022 End: 07-03-2022 ambulatory DO Roberto Roth Work Phone: [facility] Work Phone: Start: 07-03-2022 End: 07-03-2022 Patient encounter procedure DO Roberto Roth Work Phone: [facility] [address] Work Phone: Start: 06-23-2022 End: 06-23-[address] HOOD RAUSCH . Facility:[facility] Start: 05-29-2022 End: 05-30-[address] HOOD RAUSCH . Facility:[facility] Start: 05-14-2022 End: 05-15-2022 ambulatory ADA SINGH . Facility:[facility] Start: 03-12-2022 End: 03-13-[address] HOOD RAUSCH . Facility:[facility] Start: 02-13-2022 Encounter for preprocedural laboratory examination DR HOOD RAUSCH . [facility] Start: 02-10-2022 End: 02-10-[address] HOOD RAUSCH . Facility:[facility] Start: 02-06-2022 End: 02-07-[address] HOOD RAUSCH . Facility:[facility] Start: 02-06-2022 End: 02-07-2022 Encounter for preprocedural laboratory examination DR HOOD RAUSCH . Facility:[facility] Start: 02-03-2022 End: 02-03-[address] HOOD RAUSCH . Facility:[facility] Start: 01-31-2022 End: 01-31-2022 Patient encounter procedure DO Roberto Roth Work Phone: [facility] Start: 01-16-[address] HOOD RAUSCH . Faci lity:[facility] Start: 01-07-2022 End: 01-08-[address] HOOD RAUSCH . Facility:[facility] Start: 05-20-2020 End: 05-20-2020 Patient encounter procedure Roberto Roth -Pre-Surgical Testing Start: 05-14-2020 End: 05-14-2020 Patient encounter procedure Roberto Roth -Pre-Surgical Testing Start: 04-26-2020 End: 04-26-2020 Patient encounter procedure Roberto Roth -[facility] Procedures Date Procedure Procedure Detail Performing Clinician Start: 07-16-2022 Urine culture DO Roberto reyes Work Phone: Start: 07-03-2022 X-ray of lumbar spin e, six views including bending views DO Roberto Roth Work Phone: Start: 04-26-2020 X-ray of lumbar spin e, four views Roberto Roth Plan of Treatment Date Care Activity Detail Author Start: 01-30-2024 Covid-19 Vaccine ( season) Covid-19 Vaccine ( season) [facility] Start: 01-30-2024 Influenza vaccination Influenza Vacc ine (#1) [facility] Start: 08-17-2022 Plain X-ray of right hip XR hip RT min 2V(w/wo pelvis)* [facility] Start: 08-17-2022 XR Hip - right 2 Views [facility] Start: 07-16-2022 Bacteria identified in Urine by Culture [facility] Start: 07-16-2022 Hemolytic complement CH50 level [facility] Start: 07-16-2022 [facility] Start: 2018 Shingrix Vaccine (1 of 2) Shingrix Vaccine (1 of 2) [facility] Start: 2013 Diabetes Screening Diabetes Screenin g [facility] Start: 2013 Lipid panel Lipid Screening [facility] Start: 2013 Screening for malign ant neoplasm of colon [facility] Start: 2008 Screening for malign ant neoplasm of breast Mammogram Screening [facility] Start: 1989 Screening for malign ant neoplasm of cervix Cervical Cancer Screening [facility] Start: 10-03-1987 Hepatitis B Vaccine (1 of 3 - 19+ 3-dose series) Hepatitis B Vaccine (1 of 3 - 19+ 3-dose series) [facility] Start: 10-03-1987 Pneumococcal Vaccine : 50+ (1 of 2 - PCV) Pneumococcal Vaccine: 50+ (1 of 2 - PCV) [facility] Start: 10-03-1987 Urine microalbumin profile DTaP,Tdap,Td Vaccine (1 - Tdap) [facility] Start: 1986 Anxiety Screening Anxiety Screening [facility] Start: 1986 Depression Screening Depression Scre ening [facility] Start: 1986 Hepatitis C screening Hepatitis C Sc reening [facility] Start: 1986 HIV screening HIV Screening [facility] Complement C3 [Mass/volume] in Serum or Plasma [facility] Complement C4 [Mass/volume] in Serum or Plasma [facility] End: 07-23-2025 CT Lumbar spine WO contrast CT LUMBAR SPINE WO IVCON Radiology Routine Radiculopathy of lumbar region Spinal stenosis of lumbar region without neurogenic claudication 1 Occurrences starting 06/23/2024 until 07/23/2025 [facility] Work Phone: Comment on above: 1 Occurrences starti ng 06/23/2024 until 07/23/2025 End: 06-23-2025 EMG(NEURO/NI) EMG(NEURO/NI) EMG Routine Radiculopathy of lumbar region Spinal stenosis of lumbar region without neurogenic claudication Right foot drop 1 Occurrences starting 06/23/2024 until 06/23/2025 [facility] Comment on above: 1 Occurrences starti ng 06/23/2024 until 06/23/2025 Homogenous nuclear A b pattern [Titer] in Serum [facility] Nuclear Ab [Titer] i n Serum [facility] End: 07-23-2025 XR Lumbar spine Views W flexion and W extension XR LUMBAR MOTION 4V AP/LAT/ FLEX/EXT Radiology Routine Radiculopathy of lumbar region Spinal stenosis of lumbar region without neurogenic claudication 1 Occurrences starting 06/23/2024 until 07/23/2025 [facility] Comment on above: 1 Occurrences starti ng 06/23/2024 until 07/23/2025 Immunizations Immunization Date Immunization Notes Care Provider Jah dasilva 11-09-2020 COVID-19 mRNA-1273 (Moderna) DO Roberto Roth Work Phone: [facility] 10-12-2020 COVID-19 mRNA-1273 (Moderna) DO Roberto Roth Work Phone: [facility] 05-23-2020 influenza, injectabl e, quadrivalent, preservative free DO Roberto Roth Work Phone: [facility] 05-23-2020 influenza virus vaccine, unspecified formulation Joelle Sarmiento MD Work Phone: [facility] Payers Date Payer Category Payer Unknown [id number] 2023 Unknown [id number] 2022 Self-pay [id number] 1968 Unknown [id number] 2.16.84 0.1.462999.3.579.2.593 1968 Unknown [id number] 2.16.84 0.1.690671.3.579.2. 1968 Unknown [id number] 2.16.84 0.1.432799.3.579.2.59 1968 Unknown [id number] 2.16.84 0.1.314749.3.579.2.59 1968 Unknown [id number] 2.16.84 0.1.367086.3.579.2.593 1968 Unknown [id number] 2.16.84 0.1.031113.3.579.2. 1968 Unknown [id number] 2.16.84 0.1.047638.3.579.2.593 1968 Unknown [id number] 2.16.84 0.1.572250.3.579.2.593 1968 Unknown [id number] 2.16.84 0.1.947833.3.579.2.593 1968 Unknown [id number] 2.16.84 0.1.076055.3.579.2.593 1968 Unknown [id number] 2.16.84 0.1.378649.3.579.2.593 1968 Unknown [id number] 2.16.84 0.1.747932.3.579.2.593 1968 Unknown [id number] 2.16.84 0.1.274980.3.579.2.593 1968 Unknown [id number] 2.16.84 0.1.336673.3.579.2.593 1968 Unknown [id number] 2.16.84 0.1.659777.3.579.2.593 1968 Unknown [id number] 2.16. 840.1.264800.3.579.2.196 1968 Unknown [id number] 2.16. 840.1.476551.3.579.2.196 1968 Unknown [id number] 2.16. 840.1.483865.3.579.2.196 1959 Unknown [id number] Unknown [id number] Unknown [id number] 2.16.8 40.1.411871.3.579.2.531 Social History Date Type Detail Facility Start: 05-14-2020 End: 06-23-2021 Tobacco smoking status [facility] Smoker (finding) [facility] Start: 1970 Sex Assigned At Female F [facility] Start: 06-09-2024 End: 06-15-2024 History of tobacco use [facility] Tobacco smoking stat [facility] Tobacco smoking consumption unknown [facility] Start: 1970 [facility] assigned at [facility] Start: 06-09-2024 [facility] of tobacco use [facility] Start: 06-09-2024 Tobacco use and exposure Smokeless tobacco non-user [facility] Start: 06-09-2024 Alcoholic beverage intake Ex-drinker (finding) [facility] Start: 06-09-2024 End: 06-15-2024 History of Social function [facility] Adult Depression Screening Assessment 3 [facility] Medical Equipment Procedure Code Equipment Code Equipment Origin al Text Equipment Identifier Dates Fusion, spine, lumbar, XLIF CANCELLOUS COARSE 7.5CC FDA Start: 05-22-2020 Fusion, spine, lumbar, XLIF Bone-screw internal spinal fixation system, non-sterile ()[id number] FDA Start: 05-22-2020 Fusion, spine, lumbar, XLIF Bone-screw internal spinal fixation system, non-sterile ()[id number] FDA Start: 05-22-2020 Fusion, spine, lumbar, XLIF Bone-screw internal spinal fixation system, non-sterile ()[id number] FDA Start: 05-22-2020 Fusion, spine, lumbar, XLIF CANCELLOUS COARSE 7.5CC FDA Start: 05-22-2020 Fusion, spine, lumbar, XLIF Bone-screw internal spinal fixation system, non-sterile ()[id number] FDA Start: 05-22-2020 Fusion, spine, lumbar, XLIF Bone-screw internal spinal fixation system, non-sterile ()[id number] FDA Start: 05-22-2020 Fusion, spine, lumbar, XLIF Polymeric spinal fusion cage, non-sterile ()[id number] FDA Start: 05-22-2020 Fusion, spine, lumbar, XLIF Dura mater graft, bovine ()[id number] FDA Start: 05-22-2020 Fusion, spine, lumbar, XLIF MAS REDUCTION FIXATION ADD LEV FDA Start: 05-22-2020 Fusion, spine, lumbar, XLIF XLIF 1 LEVEL MAS REDUCTION FDA Start: 05-22-2020 Fusion, spine, lumbar, XLIF Spinal fusion graft kit [id number] FDA Start: 05-22-2020 Fusion, spine, lumbar, XLIF Bone matrix implant, human-derived ()[id number] FDA Start: 05-22-2020 Fusion, spine, lumbar, XLIF Metallic spinal fusion cage, non-sterile ()[id number] FDA Start: 05-22-2020 Fusion, spine, lumbar, XLIF Bone-screw internal spinal fixation system, non-sterile ()[id number] FDA Start: 05-22-2020 Fusion, spine, lumbar, XLIF [...] - 06/23/2024 11:11 AM ESTTelephone Encounter - Marta Walker - 06/22/2024 9:51 AM EST Note Date & Type Note Facility 06-23-2024 Telephone encounter Note Neuro SPINE CARE COORDINATION QUICK NOTE Called patient, no answer. Left non-detailed VM on non-identified VM box instructing patient to call office or check MYC messages for details. Ness Corbett RN June 23, 2024 11:12 AM [facility] 06-23-2024 Miscellaneous Notes Neuro SPINE CARE COORDINATION [...] Pt can schedule. documented in this encounter [facility] 06-22-2024 Telephone encounter Note Pt called asking for orders informed by on OV 06/16/24. Discussed with patient will order CT and EMG as well as standing xray Pls send MyC msg once orders are ready so that Pt can schedule. [facility] 06-16-2024 Note HNO ID: [id number] Author: JOELLE SARMIENTO MD Service: ? Author Type: Physician Type: Progress Notes Filed: 06/16/2024 17:55 Note Text: Rescheduled, no charge [facility] 06-16-2024 Note HNO ID: [id number] Author: JOELLE SARMIENTO MD Service: ? Author Type: Physician Type: Progress Notes Filed: 06/16/2024 09:36 Note Text: I have communicated my name and active licensure. The patient's identity and physical location were verified at the time of this visit. Either the patient or their legal union contract representative has been informed of the risks [...] with more than 50% of the total qgbq-zb-xtol time of the visit in counseling / coordination of care. [facility] 06-16-2024 History of Presen t illness Narrative I have communicated my name and active licensure. The patient's identity and physical location were verified at the time of this visit. Either the patient or their legal union contract representative has been informed of the risks [...] with more than 50% of the total zpgv-zq-pdou time of the visit in counseling / coordination of care. documented in this encounter [facility] 03-10-2024 Note HNO ID: [id number] Author: KENAN GODOY APRN.PODOPEDIATRICIAN Service: ? Author Type: Nurse Practitioner Type: [...] gabapentin, meloxicam, voltaren cream, heat, mdp x1 Longview - 3x/dy Studies (Reports unless indicated) Mri lumbar report Lumbarization S1 S/p :L4-S1 fusion L5/S1 mod b/l FS S1/2 paraspinal muscle mod to severe atrophy Disposition: Please schedule with dr sarmiento if patient would like soon can schedule with myself. Please instruct patient to bring copy of imaging and injection history for review. [facility] 03-10-2024 History of Presen t illness Narrative [...] gabapentin, meloxicam, voltaren cream, heat, mdp x1 Longview - 3x/dy Studies (Reports unless indicated) Mri [...] Health Provider or Pain Management Provider at [facility]? No If answer is YES please schedule [...] the facility where the MRI/CT/myelogram was completed: [place] [address] MRI/CT/myelogram viewable in Epic: No If not, please provide [phone] to fax in imaging reports for review. Also, please inform patient to hand carry imaging disc to appointment. XR (spine) within 12 months: Yes If YES, please ask for the name/address of the facility where the XR was completed: [place] [address] Dr. Freeman's patients: Have you had previous [...] therapy was completed [facility] [place] - [address] [place] [address] Have you tried any other kinds of non-surgical treatments in the last 12 months? (For example: NSAIDS, muscle relaxants, analgesics, oral steroids, Chiropractor, Acupuncture): gabapentin, meloxicam, voltaren cream, heat, mdp x1 4. Are you currently taking daily prescribed narcotic medications for your current symptoms (For example Oxycodone, Hydrocodone, Tramadol, Morphine, Other)? Yes Longview - 3x/dy 5. Have you had previous spinal surgery for this same symptoms? Yes If YES please ask for the name of facility/address of where the surgery was completed: [facility] cages Additional Comments [phone] documented in this encounter [facility] 03-06-2024 Note HNO ID: [id number] Author: ?, ?, ? Service: ? Author Type: ? Type: Progress Notes Filed: 03/10/2024 16:07 Note Text: Patient name: Kim Hill Are you being referred by a [facility] Spine Health Provider or Pain Management Provider at [facility]? No If answer is YES please schedule [...] the facility where the MRI/CT/myelogram was completed: [facility] [address] [place] [address] MRI/CT/myelogram viewable in Epic: No If not, please provide [phone] to fax in imaging reports for review. Also, please inform patient to hand carry imaging disc to appointment. XR (spine) within 12 months: Yes If YES,? please ask for the name/address of the facility where the [place] [address] Dr. Freeman's patients: Have you had previous [...] therapy was completed [facility] [place] [address] Have you tried any other kinds of non-surgical treatments in the last 12 months? (For example: NSAIDS, muscle relaxants, analgesics, oral steroids, Chiropractor, Acupuncture): gabapentin, meloxicam, voltaren cream, heat, mdp x1 4. Are you currently taking daily prescribed narcotic medications for your current symptoms (For example Oxycodone, Hydrocodone, Tramadol, Morphine, Other)? Yes Longview - 3x/dy 5. Have you had previous spinal surgery for this same symptoms? Yes If YES? please ask for the name of facility/address of where the surgery was completed: [facility] - 2 cages Additional Comments [phone] [facility] 10-06-2022 Note CONSULTATION CONSULTATION DATE: 10/06/2022 [...] pill b.i.d. and to continue to use Longview 7.5 mg t.i.d. We did reduce the use at her last visit from 90 pills a month to 80 pills to last one month's time. She appears to be tolerating this transition quite well. I have asked her to continue with gabapentin 600 mg t.i.d. Her JOYCE on today's visit is 28. She reports the Longview does improve her quality of life, level of functioning and sleep pattern, and she denies any side effects. As part of providing excellent, safe, comprehensive care, the following was completed at our patient's visit: 1. A medication reconciliation and review to ensure accurate knowledge of current/active medications, including asking our patients to inform us about any uibh-dlr-qorpyxh medications or herbal remedies/nutritional supplements/alternative remedies. 2. [...] options with their primary care provider. [facility] 09-01-2022 Note CONSULTATION CONSULTATION DATE: 09/01/2022 [...] our patients to inform us about any ywsp-uid-mjnbxti medications or herbal remedies/nutritional supplements/alternative remedies. 2. [...] options with their primary care provider. [facility] 08-17-2022 Evaluation note Encounter Date Diagnosis Assessment Notes Jul, Other chronic pain (ICD-10 - G89.29) Jul, Low back pain, unspecified (ICD-10 - M54.50) [employer] Other 02-16-2023 NoteCONSULTATION CONSULTATION DATE: 07/16/2022 HISTORY OF PRESENT ILLNESS: This is a 51-year-old female who returns to the clinic status post bilateral SI joint injection completed on 06/23/2022. The patient received 80% relief for one day and on day two felt worse than her normal baseline pain. Today, she rates her pain 8/10. Medications include gabapentin 600 mg t.i.d., Longview 7.5/325 b.i.d. and Mobic 15 mg daily. [...] her medications; Mobic 15 mg daily and Longview 7.5/325 b.i.d. She will return to the clinic in six weeks' time, in which we will, in addition to her PCPs office, review the MRI and form a plan of care at that time. Patient is in agreement to this plan.[facility] [id number] Note CONSULTATION CONSULTATION DATE: 05/29/2022 HISTORY OF [...] down. Medications include gabapentin 600 mg t.i.d., Longview 7.5/325 b.i.d. and diclofenac 50 mg daily. [...] care and will be followed up thereafter.[facility] [id number] NoteCONSULTATION CONSULTATION DATE: 05/14/2022 HISTORY OF PRESENT [...] as well as gabapentin 600 mg t.i.d., Longview 7.5/325 t.i.d. At her last appointment, she [...] Refills for gabapentin 600 mg t.i.d. and Longview 7.5/325 b.i.d. will be sent to her pharmacy. Patient agrees to move forward with the procedure. She will followed up in the clinic thereafter.[facility] [id number] NotePAIN MANAGEMENT CONSULTATION CONSULTATION DATE: 05/14/2022 CHIEF [...] with a sacroiliac joint injection under fluoroscopy.[facility] [id number] NoteCONSULTATION CONSULTATION DATE: 03/12/2022 ADDENDUM DIAGNOSIS: Lumbar spondylosis, lumbar degenerative disc disease, chronic lower back pain and a history of a lumbar fusion.[facility] [id number] Note CONSULTATION CONSULTATION DATE: 03/12/2022 This is [...] Current medications include gabapentin 600 mg t.i.d., Longview 7.5/325 b.i.d., diclofenac cream and ibuprofen. She [...] with her vitamins as well as her Longview. The dose of frequency will not be changed. We will have the patient return to the clinic in two months' time for re-evaluation. The patient is inquiring about an increase of her Longview, possibly during the winter months. There will be no changes today.[facility] [id number] NoteCONSULTATION CONSULTATION DATE: 01/07/2022 This is a [...] Current medications include gabapentin 600 mg b.i.d., Longview 7.5/325 b.i.d., diclofenac topical, multivitamin regimen and ibuprofen p.r.n. She has tried diclofenac in the past but was unable to tolerate it due to stomach issues but low-dose ibuprofen she can tolerate. She is needing Longview and gabapentin refill today. REVIEW OF SYSTEMS, [...] subsequently move to the left. Refill for Longview 7.5/325 b.i.d. and gabapentin 600 mg b.i.d. will be sent to the pharmacy. The patient is encouraged to increase magnesium in her vitamin regimen as well as menthol heat rub, seated stretches that were demonstrated and heat application. The patient agrees with the plan of care and would like to move forward and she will follow-up in the clinic post procedure.[facility] HospitalEvaluation noteNo assessment information availableSouthview [facility] Center [facility]tr Work Phone: Evaluation noteNo InformationNortKindred Hospital [facility] [employer] Other evaluation note* Diagnosis Lumbar radiculopathy- Primary Thoracic or lumbosacral neuritis or radiculitis, unspecified [facility] Diagnosis Radiculopathy of lumbar region- Primary Thoracic or lumbosacral neuritis or radiculitis, unspecified Spinal stenosis of lumbar region without neurogenic claudication Spinal stenosis, lumbar region, without neurogenic claudication Right foot drop Other acquired deformity of ankle and foot documented in this encounter [facility] general Narrative - Reported* Type Description Date Medical History osteoarthritis Medical History rheumatoid arthritis Medical History carpal tunnel Medical History fibromyalgia Medical History hypertension Medical History Arthritis Medical History asthma Medical History obesity Medical History pneumonia Medical History anxiety Surgical History hysterectomy 01/2012 Surgical History back surgery Surgical History left middle finger surgery Hospitalization History see above Hospitalization History 4 child births [facility] [employer] Other reason for referral (narrative)* Diagnostic Procedure Only (Routine) - New Request Specialty Diagnoses / Procedures Referred By Claritza schumacher Referred To Contact XR IMAGING Diagnoses Radiculopathy of lumbar region Spinal stenosis of lumbar region without neurogenic claudication Procedures XR LUMBAR MOTION 4V AP/LAT/ FLEX/EXT RADEX SPINE LUMBOSACRAL MINIMUM 4 VIEWS Kenan Godoy APRN.PODOPEDIATRICIAN [address] [place] [address] Xr Imaging [place] [address] Referral ID Status Reason Start Date Expiration Date Visits Requested Visits Authorized [id number] New Request Auto-Generat ed Referral 06/23/2024 07/23/2025 1 1 * Outpatient Procedure (Routine) - New Request Specialty Diagnoses / Procedures Referred By Contac t Referred To Contact [facility] Diagnoses Radiculopathy of lumbar region Spinal stenosis of lumbar region without neurogenic claudication Right foot drop Procedures EMG(NEURO/NI) NERVE CONDUCTION STUDIES 9-10 STUDIES Kenan Godoy APRN.PODOPEDIATRICIAN [address] [place] [address] [facility] [address] [place] [address] Referral ID Status Reason Start Date Expiration Date Visits Requested Visits Authorized [id number] New Request Auto-Generat ed Referral 06/23/2024 06/23/2025 1 1 * MRI/CT (Routine) - New Request Specialty Diagnoses / Procedures Referred By Contac t Referred To Contact CT IMAGING Diagnoses Radiculopathy of lumbar region Spinal stenosis of lumbar region without neurogenic claudication Procedures CT LUMBAR SPINE WO IVCON CT LUMBAR SPINE W/O CONTRAST MATERIAL Kenan Godoy APRN.PODOPEDIATRICIAN [address] [place] [address] Ct Imaging [place] [address] Referral ID Status Reason Start Date Expiration Date Visits Requested Visits Authorized [id number] New Request Auto-Generat ed Referral 06/23/2024 07/23/2025 1 1 [facility] Advance Directives Advance Directive Response Recorded Date/ [...] Active Gina Guerrero MD Attending Provider Active Car Rental Agent Relationship Specialty Start Date End Date Aby Mark CNP [address] [place] [address] Referring Family Medicine 03/02/24 Car Rental Agent Relationship Specialty Start Date End Date Aby Mark CNP [address] [place] [address] Referring Family Medicine 03/02/24 Car Rental Agent Relationship Specialty Start Date End Date Aby Mark CNP [address] [place] [address] Referring Family Medicine 03/02/24 Goals (unrecognized section and content) Goals may be documented in a n alternate sectionGoals may be documented in an alternate sectionGoals may be documented in an alternate sectionGoals may be documented in an alternate sectionNo InformationNo Information INFORMATION SOURCE (unrecogn ized section and content) DATE CREATED AUTHOR 08/01/[address] [facility] dical Specialist DATE CREATED AUTHOR AUTHOR'S ORGANIZ ATION 11/06/2022 [facility] DATE CREATED AUTHOR AUTHOR'S ORGANIZ ATION 11/24/[address] [facility] DATE CREATED AUTHOR AUTHOR'S ORGANIZ ATION 04/30/2024 [facility] DATE CREATED AUTHOR AUTHOR'S TERRY LOYD 06/19/2024 [facility] REASON FOR [...] or prosecute any alcohol or drug abuse patient.[facility] the event this information is protected by the Federal Confidentiality of Alcohol and Drug Abuse Patient Records regulations: The Federal rules restrict any use of the information to criminally investigate or prosecute any alcohol or drug abuse patient.[facility] HospitalIn the event this information is protected by the Federal Confidentiality of Alcohol and Drug Abuse Patient Records regulations: The Federal rules restrict any use of the information to criminally investigate or prosecute any alcohol or drug abuse patient.[facility] FOR RECORDS PERTAINING TO PATIENTS WHO [...] BE BASED ON THE PRIMARY CLINICAL RECORDS. [facility] [employer] [facility]. provides no warranty or guarantee of the accuracy or completeness of information in this document.
== END 2024-04-29 14:28 | disposition home or self-care (01) | DRG 194 ==
LOC: ER 04:58 → MS 04-29 13:04
PROVIDERS: Registered Nurse; Admitting Provider Internal Medicine; Emergency Provider Emergency Medicine; Visit Provider Internal Medicine
DX: J11.00 Influenza due to unidentified influenza virus with unspecified type of pneumonia (principal); J45.51 Severe persistent asthma with (acute) exacerbation; I10 Essential (primary) hypertension; R06.03 Acute respiratory distress; E66.812 Obesity, class 2; M19.90 Unspecified osteoarthritis, unspecified site; M06.9 Rheumatoid arthritis, unspecified; F41.9 Anxiety disorder, unspecified; K21.9 Gastro-esophageal reflux disease without esophagitis; F17.200 Nicotine dependence, unspecified, uncomplicated; Z79.899 Other long term (current) drug therapy; Z98.1 Arthrodesis status; Z98.890 Other specified postprocedural states; Z90.710 Acquired absence of both cervix and uterus; Z86.16 Personal history of COVID-19; Z68.39 Body mass index [BMI] 39.0-39.9, adult
CPT/HCPCS: 36415; 71045; 71046; 80048; 80053; 82800; 84484; 85025; 85027; 93005; 94640; 94667; 94668; 94761; 96365; 96366; 96367; 96368; 96375; 99285; 99406; J0456; J0696; J1650; J2919; J3475

== ENCOUNTER 2024-05-03 14:47 | Outpatient (OUT) | payer BC, SELFPAY ==
--- NOTE | 2024-05-03 15:19 | PM.CN ---
Consult Note: HPI Data of Consult Patient: known to practice within the last 3 years Requesting Physician: Day Fleming NP Primary Care Provider: Non-Staff Physician, MD Consult Narrative Reason for consult: f/u Narrative: Kim Hill a pleasant 53 year old female presents to office for evaluation of chronic low back and right buttock pain, post lumbar fusion L4-5 L5-S1. Patient rating pain today 4/10 increasing to 8/10 with standing and activity. Patient finds mild to moderate benefit with norco 7.5-325mg TID PRN, gabapentin 600mg TID, baclofen 10mg BID, mobic 15mg daily without side effects. Pt has a hx of multilevel lumbar fusion 3 years ago. Recently completed lumbar MRI consistent with neuroforaminal stenosis. Pending NS consult 06/02/24 at [facility]. Recent right L3/4 L4/5 TFESI providing moderate relief as well as recent bilateral SIJ injection. cc:: CC: Day Fleming NP Review of Systems ROS Status of ROS 10 or more systems reviewed and unremarkable except as noted in history and below Musculoskeletal Reports: back pain and joint pain PFSH PFSH Medical History Asthma exacerbation ?J45.901 - Unspecified asthma with (acute) exacerbation (ICD-10) Influenza ?J11.1 - Influenza due to unidentified influenza virus with other respiratory manifestations (ICD-10) Pneumonia ?J18.9 - Pneumonia, unspecified organism (ICD-10) Obesity ?E66.9 - Obesity, unspecified (ICD-10) Osteoarthritis ?M19.90 - Unspecified osteoarthritis, unspecified site (ICD-10) Rheumatoid arthritis ?M06.9 - Rheumatoid arthritis, unspecified (ICD-10) Anxiety ?F41.9 - Anxiety disorder, unspecified (ICD-10) Acid reflux ?K21.9 - Gastro-esophageal reflux disease without esophagitis (ICD-10) Smoker ?F17.200 - Nicotine dependence, unspecified, uncomplicated (ICD-10) Asthma ?J45.909 - Unspecified asthma, uncomplicated (ICD-10) Heart murmur ?R01.1 - Cardiac murmur, unspecified (ICD-10) HTN (hypertension) ?I10 - Essential (primary) hypertension (ICD-10) Surgical History History of lymph node excision ?Z98.890 - Other specified postprocedural states (ICD-10) History of hysterectomy ?Z90.710 - Acquired absence of both cervix and uterus (ICD-10) History of lumbar fusion ?Z98.1 - Arthrodesis status (ICD-10) Family History Aunt Family history of cancer Mother Family history of diabetes mellitus Family history of hypertension Father Family history of diabetes mellitus Family history of hypertension Social History Within the past year, how often did you have a drink containing alcohol: never Score interpretation: A score less than 3 is consistent with normal alcohol consumption. 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 Highest level of school completed/degree received: GED or equivalent Are you now , , , , never or living with a partner: In a typical week, how many times do you talk on the telephone with family, friends, or neighbors: 3 or more times per week How often do you get together with friends or relatives: 3 or more times per week Little interest or pleasure in doing things: not at all Feeling down, depressed, or hopeless: not at all Feel stressed/tense/nervous/anxious/difficulty sleeping: not at all Do you think of yourself as: straight/heterosexual Gender Identity: female Meds Home Medications and Allergies Home Medications ?Medication ?Instructions ?Recorded ?Confirmed ?Type VITAMIN C 250 mg PO DAILY 11/12/22 04/27/24 History baclofen 10 mg tablet 10 mg PO TID 11/12/22 04/27/24 History cholecalciferol (vit D3) 1,000 1 tab PO DAILY 11/12/22 04/27/24 History unit-vitamin K2 (MK4) 100 mcg tablet (K2 Plus D3) lisinopril 10 mg tablet 10 mg PO DAILY 11/12/22 04/27/24 History gabapentin 600 mg tablet 600 mg PO TID #270 tabs 04/12/24 04/27/24 Rx hydrocodone 7.5 mg-acetaminophen 1 tab PO TID PRN pain #90 tabs 04/12/24 04/27/24 Rx 325 mg tablet albuterol 90 mcg-budesonide 80 2 inh inhalation BID sob 04/27/24 04/27/24 History mcg/actuation HFA aerosol inhaler (Airsupra) ascorbic acid (vitamin C) 250 mg 250 mg PO DAILY 04/27/24 04/27/24 History tablet (Vitamin C) azithromycin 500 mg tablet 500 mg PO DAILY 04/27/24 04/27/24 History (Zithromax) meloxicam 15 mg tablet 15 mg PO DAILY pain 04/27/24 04/27/24 History montelukast 10 mg tablet 10 mg PO DAILY 04/27/24 04/27/24 History (Singulair) pantoprazole 40 mg tablet,delayed 40 mg PO DAILY 04/27/24 04/27/24 History release (Protonix) prednisone 10 mg tablet 10 mg PO DAILY 04/27/24 04/27/24 History zinc 50 mg capsule 50 mg PO DAILY 04/27/24 04/27/24 History cefuroxime axetil 500 mg tablet 500 mg PO Q12H 5 days #10 tabs 04/29/24 Rx Allergies Allergy/AdvReac Type Severity Reaction Status Date / Time amoxicillin (From Augmentin) Allergy Unknown Rash Verified 04/27/24 00:42 clavulanic acid (From Allergy Unknown Rash Verified 04/27/24 00:42 Augmentin) Penicillins Allergy Unknown RASH Verified 04/27/24 00:42 Exam Constitutional Documenting provider has reviewed patient's vital signs: yes Common normals: no apparent distress, oriented x3, healthy appearing, alert and well nourished General appearance: cooperative [facility] Common normals: normocephalic, hearing grossly normal bilaterally and moist oral mucous membranes Head and scalp: normocephalic Eye Common normals: PERRL Pupil: PERRL Neck & C-Spine Common normals: full ROM General: normal visual inspection Chest Common normals: inspection of chest normal Respiratory Common normals: normal respiratory effort, no retractions and no use of accessory muscles Neuro Common normals: oriented x3, CN's II-XII intact bilaterally, moves all extremities, no focal motor deficits, no sensory deficits noted and deep tendon reflexes 2+ bilaterally Sensorium/orientation: alert Motor exam: strength 5/5 throughout and no movement abnormalities noted Psych Common normals: mental status grossly normal, thought process normal, cooperative, affect normal, speech normal and activity/motor behavior normal Speech: normal speech Thought process: normal thought process Results Additional Findings Additional findings: If on a controlled substance or opioids, I have checked an [place] report on this patient and there are no aberrancies noted in the prescribing history.??If on a controlled substance or opioid a drug screen was completed and reviewed within the last year, and if there has not been a drug screen completed we ordered one today to monitor higher risk, state monitored pain medication use. As part of providing excellent, safe, comprehensive care, the following was completed at our patient's visit: 1. A medication reconciliation and review to ensure accurate knowledge of current/active medications, including asking our patients to inform us about any [id number] medications or herbal remedies/nutritional supplements/alternative remedies. 2. A review to specifically ensure our patients have had annual screening for screening for depression, screening for tobacco use, and screening for unhealthy alcohol use. For concerning screenings had a discussion with the patient, provided patient education, and recommended follow-up with primary care provider when appropriate. If patient noted with a risk of falling, they received education on strength, gait, and balance training to prevent future risk of falling. Assessment and Plan Assessment and Plan (1) Sacroiliac joint dysfunction: (2) Lumbar stenosis with neurogenic claudication: (3) Failed back syndrome: (4) Lumbar radiculopathy: (5) Lumbar spondylosis: Plan continue current medications. risks vs benefits reviewed continue HEP as tolerated continue f/u with NS as planned f/u 3 months, sooner if needed
== END 2024-05-03 14:48 | disposition home or self-care (01) ==
LOC: PM 14:48
PROVIDERS: Visit Provider Nurse Practitioner
DX: M53.3 Sacrococcygeal disorders, not elsewhere classified (principal); M48.062 Spinal stenosis, lumbar region with neurogenic claudication; M96.1 Postlaminectomy syndrome, not elsewhere classified; M54.16 Radiculopathy, lumbar region; M47.816 Spondylosis without myelopathy or radiculopathy, lumbar region
CPT/HCPCS: G0463

== ENCOUNTER 2024-08-03 15:08 | Outpatient (OUT) | payer BC, SELFPAY ==
--- NOTE | 2024-08-03 15:10 | CT_ITS ---
[facility] [place] [address] Patient Name: AKASH LIU MRN: [id number] date: 1970 Sex: F Assigned Patient Location: CT Current Patient Location: CT Accession/Order Number: [id number] Exam Date: 08/03/2024 16:46 Report Date: 08/03/2024 16:50 At the request of: NON-STAFF PHYSICIAN Procedure: CT lumbar spine wo con CT lumbar spine wo con 08/03/2024 3:42 PM History:Chronic back pain after lumbar surgery in 2019. It extends down right lower extremity. TECHNIQUE: Multi detector CT axial slices of the lumbar spine were obtained without IV contrast. Volumetric acquisition sagittal, coronal, and 3-D reconstructions were performed and reviewed on a separate workstation. CT was performed with one or more of the following dose reduction techniques: Automated exposure control, adjustment of the mA and/or kV according to patient size, or use of iterative reconstruction technique. COMPARISON: Lumbar spine MRI 09/14/2023 FINDINGS: Posterior hardware fixation L4-S1 without evidence of hardware complication. Vertebral body heights appear maintained. Mild disc space narrowing L1-L2 and L2-L3 with endplate and facet joint degenerative change. Transverse processes appear intact. SI joints demonstrate degenerative change. No paraspinal mass. Visualized retroperitoneum demonstrates no acute process. CT/CT lumbar spine wo con IMPRESSION: Posterior fixation L4-S1 without evidence of hardware complication. Mild degenerative disc disease L1-L2 and L2-L3. Impression dictated by: Gary Gifford Jr., D.O.08/03/2024 4:50 PM Dictation Location: [place] [address] Electronically authenticated by: [id number] Y Date: 08/03/2024 16:50
--- NOTE | 2024-08-03 15:11 | XR_ITS ---
[facility] [place] [address] Patient Name: AKASH LIU MRN: [id number] date: 1970 Sex: F Assigned Patient Location: CT Current Patient Location: CT Accession/Order Number: [id number] Exam Date: 08/03/2024 23:08 Report Date: 08/03/2024 23:09 At the request of: NON-STAFF PHYSICIAN MD Procedure: XR lumbar spine min 4V LUMBAR SPINE - 4 views CLINICAL HISTORY: Chronic back pain after lumbar surgery in 2019. Extends down right lower extremity with numbness and tingling. COMPARISON: None FINDINGS: Posterior hardware fixation L4-S1 without radiographic complication. Vertebral body heights appear maintained. No pathological motion on flexion or extension views. Moderate disc space narrowing L1-L2 and L2-L3. SI joints demonstrate degenerative change. XR/XR lumbar spine min 4V IMPRESSION: NO HARDWARE COMPLICATION. MODERATE DISC SPACE NARROWING L1-L2 AND L2-L3. Impression dictated by: Gary Gifford Jr., DPanchoOPancho08/03/2024 11:09 PM Dictation Location: [facility] Electronically authenticated by: [id number] Y Date: 08/03/2024 23:09
== END 2024-08-03 15:09 | disposition home or self-care (01) ==
LOC: CT 15:08
DX: M48.061 Spinal stenosis, lumbar region without neurogenic claudication (principal); M54.16 Radiculopathy, lumbar region; M51.369 Other intervertebral disc degeneration, lumbar region without mention of lumbar back pain or lower extremity pain
CPT/HCPCS: 72110; 72131

== ENCOUNTER 2024-08-10 15:06 | Outpatient (OUT) | payer BC, SELFPAY ==
--- NOTE | 2024-08-10 15:15 | P.CN_ITS ---
Consult Note: HPI Data of Consult Patient: known to practice within the last 3 years Requesting Physician: Day Fleming NP Primary Care Provider: Non-Staff Physician, MD Consult Narrative Reason for consult: f/u Narrative: Kim Hill a pleasant 53 year old female presents to office for evaluation of chronic low back and right buttock pain, post lumbar fusion L4-5 L5-S1. Patient rating pain today 8/10 increasing to 10/10 with standing and activity. Patient finds mild to moderate benefit with norco 7.5-325mg TID PRN, gabapentin 600mg TID, baclofen 10mg BID, mobic 15mg daily without side effects. Pt has a hx of multilevel lumbar fusion 3 years ago but continues to have moderate to severe pain. Following with [facility] for consideration of additional surgical intervention. prior lumbar TFESIs and bilateral SIJ injections have provided >50% improvement for 3 months and pt would like to discuss repeating. cc:: CC: Day Fleming NP Review of Systems ROS Status of ROS 10 or more systems reviewed and unremark able except as noted in history and below Musculoskeletal Reports: back pain and joint pain PFSH PFSH Medical History Asthma exacerbation ?J45.901 - Unspecified asthma with (acute) exacerbation (ICD-10) Influenza ?J11.1 - Influenza due to unidentified influenza virus with other respiratory manifestations (ICD-10) Pneumonia ?J18.9 - Pneumonia, unspecified organism (ICD-10) Obesity ?E66.9 - Obesity, unspecified (ICD-10) Osteoarthritis ?M19.90 - Unspecified osteoarthritis, unspecified site (ICD-10) Rheumatoid arthritis ?M06.9 - Rheumatoid arthritis, unspecified (ICD-10) Anxiety ?F41.9 - Anxiety disorder, unspecified (ICD-10) Acid reflux ?K21.9 - Gastro-esophageal reflux disease without esophagitis (ICD-10) Smoker ?F17.200 - Nicotine dependence, unspecified, uncomplicated (ICD-10) Asthma ?J45.909 - Unspecified asthma, uncomplicated (ICD-10) Heart murmur ?R01.1 - Cardiac murmur, unspecified (ICD-10) HTN (hypertension) ?I10 - Essential (primary) hypertension (ICD-10) Surgical History History of lymph node excision ?Z98.890 - Other specified postprocedural states (ICD-10) History of hysterectomy ?Z90.710 - Acquired absence of both cervix and uterus (ICD-10) History of lumbar fusion ?Z98.1 - Arthrodesis status (ICD-10) Family History Aunt Family history of cancer Mother Family history of diabetes mellitus Family history of hypertension Father Family history of diabetes mellitus Family history of hypertension Social History Within the past year, how often did you have a drink containing alcohol: never Score interpretation: A score less than 3 is consistent with normal alcohol consumption. 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 Highest level of school completed/degree received: GED or equivalent Are you now , , , , never or living with a partner: In a typical week, how many times do you talk on the telephone with family, f riends, or neighbors: 3 or more times per week How often do you get together with friends or relatives: 3 or more times per week Little interest or pleasure in doing things: not at all Feeling down, depressed, or hopeless: not at all Feel stressed/tense/nervous/anxious/difficulty sleeping: not at all Do you think of yourself as: straight/heterosexual Gender Identity: female Meds Home Medications and Allergies Home Medications ?Medication ?Instructions ?Recorded ?Confirmed ?Type VITAMIN C 250 mg PO DAILY 11/12/22 04/27/24 History baclofen 10 mg tablet 10 mg PO TID 11/12/22 04/27/24 History cholecalciferol (vit D3) 1,000 1 tab PO DAILY 11/12/22 04/27/24 History unit-vitamin K2 (MK4) 100 mcg tablet (K2 Plus D3) lisinopril 10 mg tablet 10 mg PO DAILY 11/12/22 04/27/24 History gabapentin 600 mg tablet 600 mg PO TID #270 tabs 04/12/24 04/27/24 Rx hydrocodone 7.5 mg-acetaminophen 1 tab PO TID PRN pain #90 tabs 04/12/24 04/27/24 Rx 325 mg tablet albuterol 90 mcg-budesonide 80 2 inh inhalation BID sob 04/27/24 04/27/24 History mcg/actuation HFA aerosol inhaler (Airsupra) ascorbic acid (vitamin C) 250 mg 250 mg PO DAILY 04/27/24 04/27/24 History tablet (Vitamin C) azithromycin 500 mg tablet 500 mg PO DAILY 04/27/24 04/27/24 History (Zithromax) meloxicam 15 mg tablet 15 mg PO DAILY pain 04/27/24 04/27/24 History montelukast 10 mg tablet 10 mg PO DAILY 04/27/24 04/27/24 History (Singulair) pantoprazole 40 mg tablet,delayed 40 mg PO DAILY 04/27/24 04/27/24 History release (Protonix) prednisone 10 mg tablet 10 mg PO DAILY 04/27/24 04/27/24 History zinc 50 mg capsule 50 mg PO DAILY 04/27/24 04/27/24 History cefuroxime axetil 500 mg tablet 500 mg PO Q12H 5 days #10 tabs 04/29/24 Rx hydrocodone 7.5 mg-acetaminophen 1 tab PO TID PRN pain #90 tabs 05/11/24 Rx 325 mg tablet hydrocodone 7.5 mg-acetaminophen See Rx Instructions .Route 06/14/24 Rx 325 mg tablet .COMPLEX PRN pain #70 tabs baclofen 10 mg tablet 10 mg PO TID PRN muscle spasm #90 07/11/24 Rx tabs gabapentin 600 mg tablet 600 mg PO TID #90 tabs 07/11/24 Rx hydrocodone 7.5 mg-acetaminophen See Rx Instructions .Route 07/11/24 Rx 325 mg tablet .COMPLEX PRN pain #70 tabs meloxicam 15 mg tablet 15 mg PO DAILY #30 tabs 07/11/24 Rx Allergies Allergy/AdvReac Type Severity Reaction Status Date / Time amoxicillin (From Augmentin) Allergy Unknown Rash Verified 04/27/24 00:42 clavulanic acid (From Allergy Unknown Rash Verified 04/27/24 00:42 Augmentin) Penicillins Allergy Unknown RASH Verified 04/27/24 00:42 Exam Constitutional Documenting provider has reviewed patient's vital signs: yes Common normals: no apparent distress, oriented x3, healthy appearing, alert and well nourished General appearance: cooperative HENTX Common normals: normocephalic, hearing grossly normal bilaterally and moist oral mucous membranes Head and scalp: normocephalic Eye Common normals: PERRL Pupil: PERRL Neck & C-Spine Common normals: full ROM General: normal visual inspection Cervical spine: pain with cervical ROM and paracervical muscle tenderness Other: intermittent radiculopathy to bilateral hands right greater than left Chest Common normals: inspection of chest normal Respiratory Common normals: normal respiratory effort, no retractions and no use of accessory muscles Back & Pelvis Lumbar spine/lower back: ROM limited and pain with ROM; straight leg raise negative right Sacroiliac joints: SI joint(s) abnormal (right>left positive beto, fadir, thigh thrust, gaenslens ) Extremity Common normals: full ROM Other: nonpitting edema to RLE utilizing right ankle brace for instability and foot drop Neuro Common normals: oriented x3, CN's II-XII intact bilaterally, moves all extremities, no focal motor deficits, no sensory deficits noted and deep tendon reflexes 2+ bilaterally Sensorium/orientation: alert Gait (neuro): antalgic Motor exam: strength 5/5 throughout and no movement abnormalities noted Psych Common normals: mental status grossly normal, thought process normal, cooperative, affect normal, speech normal and activity/motor behavior normal Speech: normal speech Thought process: normal thought process Results Additional Findings Additional findings: If on a controlled substance or opioids, I have checked an [place] report on this patient and there are no aberrancies noted in the prescribing history.??If on a controlled substance or opioid a drug screen was completed and reviewed within the last year, and if there has not been a drug screen completed we ordered one today to monitor higher risk, state monitored pain medication use. As part of providing excellent, safe, comprehensive care, the following was completed at our patient's visit: 1. A medication reconciliation and review to ensure accurate knowledge of current/active medications, including asking our patients to inform us about any [id number] medications or herbal remedies/nutritional supplements/alternative remedies. 2. A review to specifically ensure our patients have had annual screening for screening for depression, screening for tobacco use, and screening for unhealthy alcohol use. For concerning screenings had a discussion with the patient, provided patient education, and recommended follow-up with primary care provider when appropriate. If patient noted with a risk of falling, they received education on strength, gait, and balance training to prevent future risk of falling. Portions of this note may have been carried over from the previous visit and updated as appropriate. Please note this office utilizes paper charting in addition to the electronic medical record. A list of current medications, vitals, and PMH is available there as the clinical staff outside of myself do not have access to [employer] charting during the clinic day operations. As part of providing quality comprehensive care the current medications, vitals, and PMH were reviewed in the paper chart. Assessment and Plan Assessment and Plan (1) Sacroiliac joint dysfunction: (2) Lumbar stenosis with neurogenic claudication: (3) Failed back syndrome: (4) Lumbar radiculopathy: (5) Lumbar spondylosis: (6) Chronic prescription opiate use: Assessment and Plan: I feel these medications are improving the patient's quality of life and allow them to tolerate activities of daily living as well as participate in recreational activity.? The patient does not report intolerable side effects. The patient is NOT opioid naive and non-pharmacologic and non-opioid treatment has failed to significantly relieve the patient's pain and improve functionality. The patient has a diagnosis that is related to a somatic or visceral pain etiology. ? ?? I reviewed with the patient the potential risks and side effects with the use of? opioid medications including but not limited to respiratory depression,? sedation, and even . Within the last 12 months I have verified the patient has access to naloxone should? these effects occur. The patient was advised to let? their family know they had Naloxone in case they would need to administer? the medication. I advised the patient to avoid the use of any other? sedation substances including alcohol, THC, and benzodiazepines while? taking opioid medications due to the risk of compounding side effects and? detrimental outcomes. within the last 12 months I have reviewed the RN CORRECTIONS, pain treatment agreement and urine drug screen.? ?? A drug screen was completed within the last year, and no aberrancies were noted regarding their use of controlled substances. The patient understands they are subject to the terms and conditions of the pain contract that they have signed. ? ?? I have checked an [place] report on this patient today and there are no aberrancies noted in the prescribing history.? Plan repeat bilateral SIJ injection under fluoroscopy continue current medications, risks vs benefits reviewed continue f/u with NS continue HEP as tolerated f/u after injection
--- OUTSIDE RECORDS SUMMARY | 2024-08-10 15:15 | XMS_ITS | CCD ---
Author Organization [facility] Care Team Providers Care Crop Roller Name Role Phone Roberto Roth Primary Care Provider Justiec Cruz Attending Provider DO Roberto Roth Primary Care Provider MD Hood Rausch Attending Provider DO Roberto Roth Primary Care Provider [phone] CALVIN Mark Attending Provider MD Paresh Tian Attending Provider RothDO Roberto oliva Primary Care Provider CALVIN Mark Attending Provider MD Paresh Tian Attending Provider [phone] MD Gina Guerrero Attending Provider [phone] Gina Guerrero Unavailable SHE ., DR HOOD [...] ROTH, DR ROBERTO Bhakta Primary Care Unavailable GARY, DR DASHA Gomez Consulting Unavailable SINGH ., [...] Guerrero Admitting Unavailable Aby Mark CNP Unavailable [phone] Panda BUSTILLO, Aaron Musa Attending Unavailable Panda BUSTILLO, Aaron Musa Attending Unavailable Panda BUSTILLO, Aaron Musa Attending Unavailable ABY MARK Referring Unavailable JOELLE SARMIENTO Attending Unavailable JOELLE SARMIENTO Attending Unavailable ABY MARK Referring Unavailable Unavailable Unavailable Unavailable Allergies Allergy Classification Reported Allergen(s) Allergy Type Date of Onset Reaction(s) Facility (6 sources) Amoxicillin; Translations: [amoxicillin] Drug Allergy 05-14-[address] [facility] (10 sources) Penicillins; Translations: [Penicillins] Propensity to adverse reactions 07-24-19 14 Rash, Diarrhea [facility] (6 sources) clavulanic acid; Translations: [clavulanic acid] Propensity to adverse reactions 05-14-20 20 [facility] (3 sources) Amoxicillin / Clavulanate; Translations: [Augmentin] Drug Allergy 07-24-19 14 Unknown [facility] (2 sources) Azithromycin Drug Allergy diarrhea [facility] Other (2 sources) Penicillin G Drug Allergy Unknown [facility] Other Medications Current Medications Medication Drug Class(es) Dates Sig (Normalized) Sig (Original) acetaminophen 500 mg oral tablet (4 sources) Start: 05-31-2020 take 500 mg by mouth every four hours Acetaminophen Active 500 MG PO Q4H 100 May 31, 2020 1:00am [id number] 200 actuat albuterol 0.09 mg/actuat metered dose [...] take 1 puff(s) by inhalation once daily edjuibtwsac-wdhdrjkyp-ws lanter (TRELEGY ELLIPTA) 100-62.5-25 mcg inhalation powder [...] by mouth three times daily Hydrocodone-Acetami nophen (Flintstone) 5-325 mg Tablet Discontinued 1 TAB PO Three times daily March 18, 2019 12:00am May 23, 2020 4:59pm take 7.5 mg by mouth three times daily hydrocodone/acetaminophen (NORCO ORAL) T francie 7.5 mg by mouth three times a day. Active [place] Active azithromycin 250 mg oral tablet (4 [...] sources) High risk drug monitoring status; Translations: [FPC (current) use of opiate analgesic] Episodic Other [...] Test Name Value Interpretation Reference Range Facility [facility] 06-09-2024 CNOV Office Visit (SPNSMN ) KIM HILL ([id number]) 1970 F Date Time Provider Department 06/09/24 4:00 PM JOELLE SARMIENTO JOSEIN During your visit today, we recorded the following information about you: Pulse Blood pressure Weight Height 92/minute 104/52 98 kg 1.6 m Joelle Sarmiento MD 06/16/2024 5:55 PM Signed Rescheduled, no charge Referring Provider: ABY MARK [[id number]] Allergies As of Date: 06/09/2024 Noted Allergy Reaction PENICILLINS 06/09/2024 2 - Rash 6 - Diarrhea Date Reviewed: 06/09/2024 Reviewed by: Olive Ross OCCA - Fully Assessed Reason for Visit: New Patient [172] New Patient Evaluation [154] Cmt: Postop complications from prior surgery outside [facility] Primary Visit Diagnosis:Chronic bilateral low back pain [...] mg by mouth daily at bedtime. - oktbtfjujoc-tstyztwkk-d ilanter (TRELEGY ELLIPTA) 100-62.5-25 mcg inhalation powder [...] Status:Closed by JOELLE SARMIENTO on 06/16/24 Normal [facility] MRI Lumbar Spine w/o + w/on [...] Justice Lucas on 07/31/2022 0915 Normal [facility] Automated erythrocytes count in urine sediment (number/area)Ordered By: Paresh Tian on 07-16-2022 RBC Auto (Urine sed) [#/Area] 1-2 [HPF] 0-[address] [facility] Automated leukocytes count i n urine sediment (number/area)Ordered By: Paresh Tian on 07-16-2022 WBC Auto (Urine sed) [#/Area] 20-49 [HPF] 0-[address] [facility] Basophils Auto (Bld) [#/Vol] Ordered By: Paresh Tian on 07-16-2022 Basophils (Bld) [#/Vol] 0.0 10*3/uL 0.0-0.[address] [facility] Basophils/100 WBC Auto (Bld) Ordered By: Paresh Tian on 07-16-2022 Basophils/100 WBC (Bld) 0.4 % . [facility] Bilirubin Test strip Ql (U)O rdered By: Paresh Tian on 07-16-2022 Bilirubin Ql (U) Negative Negative [facility] C reactive protein [Mass/vol ume] in Serum or PlasmaOrdered By: Paresh Tian on 07-16-2022 CRP [Mass/Vol] 0.8 mg/dL 0.0-1.[address] [facility] Color Auto (U)Ordered By: Afia Tian on 07-16-2022 Color (U) Yellow Yellow [facility] Creatinine and Glomerular fi ltration rate.predicted panel (S/P/Bld)Ordered By: Paresh Tian on 07-16-2022 Creatinine [Mass/Vol] 0.74 mg/dL 0.44-1.03 [facility] Eosinophils Auto (Bld) [#/Vo l]Ordered By: Paresh Tian on 07-16-2022 Eosinophils (Bld) [#/Vol] 0.1 10*3/uL 0.0-0.[address] [facility] Eosinophils/100 WBC Auto (Bl d)Ordered By: Paresh Tian on 07-16-2022 Eosinophils/100 WBC (Bld) 1.1 % . [facility] Erythrocyte distribution wid th Auto (RBC) [Ratio]Ordered By: Paresh Tian on 07-16-2022 Erythrocyte distribution width (RBC) [Ratio] 13.0 % 11.9-15.[address] [facility] Erythrocyte sedimentation ra te by Photometric methodOrdered By: Paresh Tian on 07-16-2022 ESR Photometric method (Bld) [Velocity] 45 mm/hr 0-[address] [facility] Estimated glomerular filtrat ion rate (GFR) non- AmericanOrdered By: Paresh Tian on 07-16-2022 GFR/1.73 sq M.predicted among non-blacks MDRD (S/P/Bld) [Vol rate/Area] > 60 mL/Min [facility] Hematocrit Auto (Bld) [Volum e fraction]Ordered By: Paresh Tian on 07-16-2022 Hematocrit (Bld) [Volume fraction] 45.3 % 34.0-46.[address] [facility] Hemoglobin [Mass/volume] in BloodOrdered By: Paresh Tian on 07-16-2022 Hemoglobin (Bld) [Mass/Vol] 15.2 g/dL 11.8-15.[address] [facility] Ketones Auto test strip (U) [Mass/Vol]Ordered By: Paresh Tian on 07-16-2022 Ketones (U) [Mass/Vol] Negative Negative [facility] Laboratory - UrinalysisOrder ed By: Paresh Tian on 07-16-2022 Hyaline casts LM Ql (Urine sed) 0-8 [LPF] 0-[address] [facility] Leukocytes [#/volume] correc scot for nucleated erythrocytes in Blood by Automated counOrdered By: Paresh Tian on 07-16-2022 WBC corrected for nucl RBC Auto (Bld) [#/Vol] 10.4 10*3/uL 3.8-11.[address] [facility] Lymphocytes Auto (Bld) [#/Vo l]Ordered By: Paresh Tian on 07-16-2022 Lymphocytes (Bld) [#/Vol] 3.7 10*3/uL 1.00-4.[address] [facility] Lymphocytes/100 WBC Auto (Bl d)Ordered By: Paresh Tian on 07-16-2022 Lymphocytes/100 WBC (Bld) 35.0 % . [facility] MCH Auto (RBC) [Entitic mass ]Ordered By: Paresh Tian on 07-16-2022 MCH (RBC) [Entitic mass] 33.8 pg 24.7-34.[address] [facility] MCHC Auto (RBC) [Mass/Vol]Or dered By: Paresh Tian on 07-16-2022 MCHC (RBC) [Mass/Vol] 33.6 g/dL 32.0-35.0 [facility] MCV Auto (RBC) [Entitic vol] Ordered By: Paresh Tian on 07-16-2022 MCV (RBC) [Entitic vol] 100.6 fL 80-100 [facility] Mitotic spindle apparatus Ab [Titer] in Serum or Plasma by ImmunofluorescenceOrdered By: Paresh Tian on 07-16-2022 Mitotic spindle apparatus Ab IF [Titer] 1:[address] [facility] Comment on above: ICAP nomenclature: A C-25,26 Monocytes Auto (Bld) [#/Vol] Ordered By: Paresh Tian on 07-16-2022 Monocytes (Bld) [#/Vol] 0.7 10*3/uL 0.0-0.[address] [facility] Monocytes/100 WBC Auto (Bld) Ordered By: Paresh Tian on 07-16-2022 Monocytes/100 WBC (Bld) 6.8 % . [facility] Neutrophils Auto (Bld) [#/Vo l]Ordered By: Paresh Tian on 07-16-2022 Neutrophils (Bld) [#/Vol] 5.9 10*3/uL 1.8-7.[address] [facility] Neutrophils/100 WBC Auto (Bl d)Ordered By: Paresh Tian on 07-16-2022 Neutrophils/100 WBC (Bld) 56.7 % . [facility] Nitrite Test strip Ql (U)Ord ered By: Paresh Tian on 07-16-2022 Nitrite Ql (U) Negative Negative [facility] No Panel InformationOrdered By: Paresh Tian on 07-16-2022 Anti-Nuclear Antibody Comment 2 See comment . [facility] Comment on above: For more information about Hep-2 cell patterns useFarmiapatterns.org, the official website for the InternationalConsensus on Antinuclear Antibody (ASTER) Patterns (ICAP). --------A positive ASTER result may occur in healthy individuals (lowtiter) or be associated with a variety of diseases. Seeinterpretation chart which is not all inclusive:Pattern Antigen Detected Suggested Disease Association Homogeneous DNA(ds,ss), SLE - High titers Nucleosomes, Histones Drug-induced SLE Speckled Sm, SATELLITE [employer] TECHNICIAN INSTALLER, SCL-70, SLE,MCTD,PSS (diffuse form), SS-A/SS-B Sjogrens Nucleolar SCL-70, PM-1/SCL High titers Scleroderma, PM/DM Centromere Centromere PSS (limited form) w/Crest syndrome variable Nuclear Dot Sp100,[id number] Primary Biliary Cirrhosis Nuclear GP210, Primary Biliary CirrhosisMembrane kailyn A,B,C Performed at: [facility] [id number] Director: Collin Rodriguez PhD, Phone: [phone] Estimated GFR () > 60 mL/Min [facility] Comment on above: GFR estimated refere nce range: According to KDOQI guidelines, <60 ml/min/1.73m2 is sufficient to diagnose a patient with chronic kidney disease. Pharmacy Creatinine Clearance (Chem N/A [facility] Total Complement (CH50) >60 U/mL >41 [facility] Comment on above: Age Male Female [...] to determine out of range values.Performed at: [facility] [id number] Director: Collin Rodriguez PhD, Phone: [phone] Nucleated erythrocytes [Pres ence] in Blood by Automated countOrdered By: Paresh Tian on 07-16-2022 Nucleated RBC Auto Ql (Bld) 0.1 /100{WBC} 0-0.[address] [facility] Platelet mean volume Auto (B ld) [Entitic vol]Ordered By: Paresh Tian on 07-16-2022 Platelet mean volume (Bld) [Entitic vol] 8.4 fL 6.3-10.[address] [facility] Platelets Auto (Bld) [#/Vol] Ordered By: Paresh Tian on 07-16-2022 Platelets (Bld) [#/Vol] 242 10*3/uL 150-[address] [facility] Protein Auto test strip (U) [Mass/Vol]Ordered By: Paresh Tian on 07-16-2022 Protein (U) [Mass/Vol] Negative Negative [facility] RBC Auto (Bld) [#/Vol]Ordere d By: Paresh Tian on 07-16-2022 RBC (Bld) [#/Vol] 4.50 10*6/uL 3.60-5.00 [facility] Serum homogeneous pattern an tinuclear antibody (ASTER) titerOrdered By: Paresh Tian on 07-16-2022 Homogenous nuclear Ab pattern (S) [Titer] N/A [facility] Serum nuclear antibody titer Ordered By: Paresh Tian on 07-16-2022 Nuclear Ab (S) [Titer] Positive . [facility] Comment on above: Negative <1:80 Borde rline 1:80 Positive >1:80 Serum or plasma complement C 3 measurement (mass/volume)Ordered By: Paresh Tian on 07-16-2022 Complement C3 [Mass/Vol] 197 mg/dL 82-[address] [facility] Comment on above: Performed at: [address] Director: Collin Rodriguez PhD, Phone: [phone] Serum or plasma complement C 4 measurement (mass/volume)Ordered By: Paresh Tian on 07-16-2022 Complement C4 [Mass/Vol] 42 mg/dL 12-[address] [facility] Specific gravity Auto test s trip (U) [Rel density]Ordered By: Paresh Tian on 07-16-2022 Specific gravity (U) [Rel density] 1.018 1.001-1.[address] [facility] Squamous epithelial cells de tection in urine sediment by light microscopyOrdered By: Paresh Tian on 07-16-2022 Epithelial cells.squamous LM Ql (Urine sed) 0-1 [HPF] 0-[address] [facility] Urine bacteria detection by automated methodOrdered By: Paresh Tian on 07-16-2022 Bacteria Auto Ql (U) 4+ None Seen [facility] Urine clarity by refractomet ry automatedOrdered By: Paresh Tian on 07-16-2022 Clarity Refractometry automated (U) Clear Clear [facility] Urine culture routineOrdered By: Paresh Tian on 07-16-2022 Bacteria identified Cx Nom (U) Escherichia coli [facility] Urine glucose measurement by automated test strip (mass/volume)Ordered By: Paresh Tian on 07-16-2022 Glucose Auto test strip (U) [Mass/Vol] Normal mg/dL Normal [facility] Urine hemoglobin detection b y automated test stripOrdered By: Paresh Tian on 07-16-2022 Hemoglobin Auto test strip Ql (U) Negative Negative [facility] Urine leukocyte esterase det ection by automated test stripOrdered By: Paresh Tian on 07-16-2022 Leukocyte esterase Auto test strip Ql (U) 3+ Negative [facility] Urobilinogen Auto test strip (U) [Mass/Vol]Ordered By: Paresh Tian on 07-16-2022 Urobilinogen (U) [Mass/Vol] Normal mg/dL Normal [facility] WBC Auto (Bld) [#/Vol]Ordere d By: Paresh Tian on 07-16-2022 WBC (Bld) [#/Vol] 10.4 10*3/uL 3.8-11.6 [facility] pH Auto test strip (U)Ordere d By: Paresh Tian on 07-16-2022 pH (U) 6.5 [pH] 5.0-9.[address] [facility] XR HIPS ZEINA 3_4V WO PELVISon [...] KHAN Date: 2022-05-15 07:49 Normal [facility] Covid-19 PCR (CVDTBH)on SARS-CoV-2 (COVID-19) RNA AMBERLY+probe Ql (Unsp spec) Not detected Normal NOT DETECTED [facility] Comment on above: Result Comment: This test is not yet approved or cleared by the [place] FDA. When there are no FDA-approved or cleared tests available, and other criteria are met, FDA can make tests available under an emergency access mechanism called an Emergency Use Authorization (EUA). The EUA for this test is supported by the Manager Heart of Health and Human Service's (HHS's) declaration [...] SARS-CoV-2. Performed By: #### C [facility] #### [facility] [address] [place] [address] Dr. Narendra Jacobsen COVID-19 Positive/NegativeOr dered By: Baljinder Rausch on 01-31-2022 SARS-CoV-2 (COVID-19) N gene AMBERLY+probe Ql (Resp) Negative Negative [facility] Comment on above: Testing for SARS-CoV -2 by RT-PCR This test was developed and its performance characteristics determined by [employer] (BD) and validated at the [facility]. This test has not been FDA [...] COVID-19 Positive/Negativeon 05-20-2020 COVID-19 Positive/Negative Negative Negative [facility] Comment on above: Testing for SARS-CoV -2 by RT-PCRThis test was developed and its performance characteristics determined by [employer] ([email or web address]) and validated at the [facility]. This test has not been FDA [...] Otheron 05-20-2020 Coronavirus 2019 PCR Interp N/A [facility] Automated basophil %on 05-14 Basophils/100 WBC (Bld) 0.5 % F [facility] Automated basophil counton 1 07-15-2019 Basophils (Bld) [#/Vol] 0.0 10*3/uL 0.0-0.2 [facility] Automated blood lymphocyte c ount (number/volume)on 05-14-2020 Lymphocytes (Bld) [#/Vol] 2.8 10*3/uL 1.00-4.8 [facility] Automated blood lymphocyte c ount as percentage of total leukocyteson 05-14-2020 Lymphocytes/100 WBC (Bld) 35.0 % [facility] Automated blood monocyte cou nton 05-14-2020 Monocytes (Bld) [#/Vol] 0.6 10*3/uL 0.0-0.8 [facility] Automated blood platelet cou nt (count/volume)on 05-14-2020 Platelets (Bld) [#/Vol] 225 10*3/uL 150-450 [facility] Automated blood platelet jose n volume measurementon 05-14-2020 Platelet mean volume (Bld) [Entitic vol] 8.2 fL 6.3-10.7 [facility] Automated eosinophil %on Eosinophils/100 WBC (Bld) 1.5 % [facility] Automated eosinophil counton 05-14-2020 Eosinophils (Bld) [#/Vol] 0.1 10*3/uL 0.0-0.45 [facility] Automated erythrocyte distri bution width ratioon 05-14-2020 Erythrocyte distribution width (RBC) [Ratio] 12.3 % 11.9-15.3 [facility] Automated erythrocyte mean c orpuscular hemoglobin (mass per erythrocyte)on 05-14-2020 MCH (RBC) [Entitic mass] 35.2 pg 24.7-34.3 [facility] Automated erythrocyte mean c orpuscular hemoglobin concentration measurement (mass/volon 05-14-2020 MCHC (RBC) [Mass/Vol] 34.2 g/dL 32.0-35.0 [facility] Automated erythrocyte mean c orpuscular volumeon 05-14-2020 MCV (RBC) [Entitic vol] 102.9 fL 80-100 [facility] Automated monocyte %on 05-14 Monocytes/100 WBC (Bld) 7.0 % F [facility] Automated neutrophil %on Neutrophils/100 WBC (Bld) 56.0 % [facility] Blood erythrocytes automated count (number/volume)on 05-14-2020 RBC (Bld) [#/Vol] 4.08 10*6/uL 3.60-5.00 [facility] Blood hemoglobin measurement (mass/volume)on 05-14-2020 Hemoglobin (Bld) [Mass/Vol] 14.3 g/dL 11.8-15.4 [facility] Blood leukocytes automated c ount (number/volume)on 05-14-2020 WBC (Bld) [#/Vol] 7.9 10*3/uL 4.5-11.0 [facility] Blood neutrophil count by au tomated method (number/volume)on 05-14-2020 Neutrophils (Bld) [#/Vol] 4.4 10*3/uL 1.8-7.7 [facility] Estimated glomerular filtrat ion rate (GFR) non- Americanon 05-14-2020 GFR/1.73 sq M predicted among non-blacks MDRD (S/P/Bld) [Vol rate/Area] mL/min/{1.73_m2} [facility] Hematocrit [Volume Fraction] of Blood by Automated counton 05-14-2020 Hematocrit (Bld) [Volume fraction] 41.9 % 34.0-46.4 [facility] Otheron 05-14-2020 GFR/1.73 sq M.predicted MDRD (S/P/Bld) [Vol rate/Area] mL/min/{1.73_m2} [facility] Comment on above: GFR estimated refere nce range: According to KDOQI guidelines, <60 ml/min/1.73m2 is sufficient to diagnose a patient with chronic kidney disease. Nucleated RBC/100 WBC (Bld) [Ratio] 0.1 % 0-0.5 [facility] Creatinine Clearance (Chem N/A [facility] Serum or plasma calcium octavio urement (mass/volume)on 05-14-2020 Calcium [Mass/Vol] 10.1 mg/dL 8.2-10.2 [facility] Serum or plasma chloride jose surement (moles/volume)on 05-14-2020 Chloride [Moles/Vol] 101 mmol/L 95-114 [facility] Serum or plasma creatinine m easurement with calculation of estimated glomerular filtron 05-14-2020 Creatinine [Mass/Vol] 0.60 mg/dL 0.44-1.[address] [facility] Serum or plasma glucose octavio urement (mass/volume)on 05-14-2020 Glucose [Mass/Vol] 94 mg/dL 70-100 [facility] Comment on above: ADA recommended refe rence rangeRandom Glucose Reference Range is dependent on time and content of last meal. Glucose of more than 200 mg/dL in a nonstressed, ambulatory subject supports the diagnosis of Diabetes Mellitus. Serum or plasma potassium me asurement (moles/volume)on 05-14-2020 Potassium [Moles/Vol] 4.3 mmol/L 3.5-5.1 [facility] Serum or plasma sodium measu rement (moles/volume)on 05-14-2020 Sodium [Moles/Vol] 140 mmol/L 136-146 [facility] Serum or plasma total carbon dioxide measurement (moles/volume)on 05-14-2020 CO2 [Moles/Vol] 27.2 mmol/L 22.0-30.0 [facility] Serum or plasma urea nitroge n measurement (mass/volume)on 05-14-2020 Urea nitrogen [Mass/Vol] 7 mg/dL 9-23 [facility] Vital Signs Date Time Vital Sign Value Performing Clinician Facility 08-17-2022 16:00-0400 Body height 160.02 cm Gina Blades Other [facility] Other 08-17-2022 16:00-0400 Body mass index (BMI) [Ratio] 40.56 kg/m2 Gina Blades Other [facility] Other 08-17-2022 16:00-0400 Body weight 103.87 kg Gina Blades Other [facility] Other 08-17-2022 16:00-0400 Diastolic blood pressure 82 mm[Hg] Gina Blades Other [facility] Other 08-17-2022 16:00-0400 Systolic blood pressure 126 mm[Hg] Gina Blades Other [facility] Other Encounters Encounter Date Encounter Type Care Provider Facility Start: 06-22-2024 End: 06-23-2024 Telephone encounter Joelle Sarmiento MD Work Phone: Neurology Comment on above: Orders Start: 06-16-2024 End: 06-16-2024 ambulatory Joelle Sarmiento MD Work Phone: [facility] Comment on above: Lumbar radiculopathy (Primary Dx) Start: 06-16-2024 End: 06-16-2024 Telemedicine consultation with patient Joelle Sarmiento MD Work Phone: [facility] Start: 06-09-2024 ambulatory JOELLE SARMIENTO Facil ity:[facility] Start: 04-24-2024 End: 04-24-2024 ambulatory Aaron Mosqueda MD Facility:[facility] Start: 03-27-2024 End: 03-27-2024 ambulatory Aaron Mosqueda MD Facility:[facility] Start: 03-06-2024 End: 03-10-2024 Chart abstracting Joelle Sarmiento MD Work Phone: Neurology Start: 10-18-2023 End: 10-18-2023 ambulatory Aaron Mosqueda MD Facility:[facility] Start: 10-27-2022 ambulatory NARENDRANATH LAKSHMIPATHY . Facility:[facility] Start: 10-13-2022 End: 10-13-2022 ambulatory NARENDRANATH LAKSHMIPATHY . Facility:[facility] Start: 10-06-2022 End: 10-07-2022 ambulatory NARENDRANATH LAKSHMIPATHY . Facility:[facility] Start: 09-08-2022 End: 09-08-2022 ambulatory Gina Guerrero Other [facility] Other Start: 09-08-2022 Telephone encounter Gina Tamayo [facility] Start: 09-01-2022 End: 09-02-2022 ambulatory NARENDRANATH LAKSHMIPATHY . Facility:[facility] Start: 08-17-2022 End: 08-17-2022 Patient encounter procedure DO Roberto Roth Work Phone: [facility] Work Phone: Start: 08-17-2022 End: 08-17-2022 ambulatory DO Roberto Roth Work Phone: [facility] Work Phone: Start: 08-17-2022 Office outpatient ne w 45 minutes Gina Guerrero [facility] Start: 07-16-2022 End: 07-17-2022 ambulatory DO Roberto Roth Work Phone: [facility] Work Phone: Start: 07-16-2022 End: 07-16-2022 Patient encounter procedure DO Roberto Roth Work Phone: [facility] [address] Work Phone: Start: 07-03-2022 End: 07-03-2022 ambulatory DO Roberto Roth Work Phone: [facility] Work Phone: Start: 07-03-2022 End: 07-03-2022 Patient encounter procedure DO Roberto Roth Work Phone: [facility] [place] Work Phone: Start: 06-23-2022 End: 06-23-[address] HOOD RAUSCH . Facility:[facility] Start: 05-29-2022 End: 05-30-[address] HOOD RAUSCH . Facility:[facility] Start: 05-14-2022 End: 05-15-2022 ambulatory ADA SINGH . Facility:[facility] Start: 03-12-2022 End: 03-13-[address] HOOD RAUSCH . Facility:[facility] Start: 02-13-2022 Encounter for preprocedural laboratory examination DR HOOD RAUSCH . [facility] Start: 02-10-2022 End: 02-10-[address] HOOD RAUSCH . Facility:[facility] Start: 02-06-2022 End: 02-07-[address] HOOD RAUSCH . Facility:[facility] Start: 02-06-2022 End: 02-07-2022 Encounter for preprocedural laboratory examination DR HOOD RAUSCH . Facility:[facility] Start: 02-03-2022 End: 02-03-[address] HOOD RAUSCH . Facility:[facility] Start: 01-31-2022 End: 01-31-2022 Patient encounter procedure DO Roberto Roth Work Phone: [facility] Start: 01-16-[address] HOOD RAUSCH . Faci lity:[facility] Start: 01-07-2022 End: 01-08-[address] HOOD RAUSCH . Facility:[facility] Start: 05-20-2020 End: 05-20-2020 Patient encounter procedure Roberto Roth -Pre-Surgical Testing Start: 05-14-2020 End: 05-14-2020 Patient encounter procedure Roberto Roth -Pre-Surgical Testing Start: 04-26-2020 End: 04-26-2020 Patient encounter procedure Roberto Roth -[facility] [place] Procedures Date Procedure Procedure Detail Performing Clinician Start: 07-16-2022 Urine culture DO Roberto reyes Work Phone: Start: 07-03-2022 X-ray of lumbar spin e, six views including bending views DO Roberto Roth Work Phone: Start: 04-26-2020 X-ray of lumbar spin e, four views Roberto Roth Plan of Treatment Date Care Activity Detail Author Start: 01-30-2024 Covid-19 Vaccine ( season) Covid-19 Vaccine ( season) [facility] Start: 01-30-2024 Influenza vaccination Influenza Vacc ine (#1) [facility] Start: 08-17-2022 Plain X-ray of right hip XR hip RT min 2V(w/wo pelvis)* [facility] Start: 08-17-2022 XR Hip - right [address] [facility] Start: 07-16-2022 Bacteria identified in Urine by Culture [facility] Start: 07-16-2022 Hemolytic complement CH50 level [facility] Start: 07-16-[address] [facility] Start: 2018 Shingrix Vaccine (1 of 2) Shingrix Vaccine (1 of 2) [facility] Start: 2013 Diabetes Screening Diabetes Screenin g [facility] Start: 2013 Lipid panel Lipid Screening [facility] Start: 2013 Screening for malign ant neoplasm of colon [facility] Start: 2008 Screening for malign ant neoplasm of breast Mammogram Screening [facility] Start: 1989 Screening for malign ant neoplasm of cervix Cervical Cancer Screening [facility] Start: 10-03-1987 Hepatitis B Vaccine (1 of 3 - 19+ 3-dose series) Hepatitis B Vaccine (1 of 3 - 19+ 3-dose series) [facility] Start: 10-03-1987 Pneumococcal Vaccine : 50+ (1 of 2 - PCV) Pneumococcal Vaccine: 50+ (1 of 2 - PCV) [facility] Start: 10-03-1987 Urine microalbumin profile DTaP,Tdap,Td Vaccine (1 - Tdap) [facility] Start: 1986 Anxiety Screening Anxiety Screening [facility] Start: 1986 Depression Screening Depression Scre ening [facility] Start: 1986 Hepatitis C screening Hepatitis C Sc reening [facility] Start: 1986 HIV screening HIV Screening [facility] Complement C3 [Mass/volume] in Serum or Plasma [facility] Complement C4 [Mass/volume] in Serum or Plasma [facility] End: 07-23-2025 CT Lumbar spine WO contrast CT LUMBAR SPINE WO IVCON Radiology Routine Radiculopathy of lumbar region Spinal stenosis of lumbar region without neurogenic claudication 1 Occurrences starting 06/23/2024 until 07/23/2025 [facility] Work Phone: Comment on above: 1 Occurrences starti ng 06/23/2024 until 07/23/2025 End: 06-23-2025 EMG(NEURO/NI) EMG(NEURO/NI) EMG Routine Radiculopathy of lumbar region Spinal stenosis of lumbar region without neurogenic claudication Right foot drop 1 Occurrences starting 06/23/2024 until 06/23/2025 [facility] Comment on above: 1 Occurrences starti ng 06/23/2024 until 06/23/2025 Homogenous nuclear A b pattern [Titer] in Serum [facility] Nuclear Ab [Titer] i n Serum [facility] End: 07-23-2025 XR Lumbar spine Views W flexion and W extension XR LUMBAR MOTION 4V AP/LAT/ FLEX/EXT Radiology Routine Radiculopathy of lumbar region Spinal stenosis of lumbar region without neurogenic claudication 1 Occurrences starting 06/23/2024 until 07/23/2025 [facility] Comment on above: 1 Occurrences starti ng 06/23/2024 until 07/23/2025 Immunizations Immunization Date Immunization Notes Care Provider Jah dasilva 11-09-2020 COVID-19 mRNA-1273 (Moderna) DO Roberto Roth Work Phone: [facility] 10-12-2020 COVID-19 mRNA-1273 (Moderna) DO Roberto Roth Work Phone: [facility] 05-23-2020 influenza, injectabl e, quadrivalent, preservative free DO Roberto Roth Work Phone: [facility] 05-23-2020 influenza virus vaccine, unspecified formulation Joelle Sarmiento MD Work Phone: [facility] Payers Date Payer Category Payer Unknown [id number] 2023 Unknown [id number] 2022 Self-pay [id number] 1968 Unknown [id number] 2.16.84 0.1.580594.3.579.2.593 1968 Unknown [id number] 2.16.84 0.1.134776.3.579.2. 1968 Unknown [id number] 2.16.84 0.1.277555.3.579.2.59 1968 Unknown [id number] 2.16.84 0.1.659066.3.579.2.59 1968 Unknown [id number] 2.16.84 0.1.462573.3.579.2.593 1968 Unknown [id number] 2.16.84 0.1.695061.3.579.2. 1968 Unknown [id number] 2.16.84 0.1.355410.3.579.2.593 1968 Unknown [id number] 2.16.84 0.1.419030.3.579.2.593 1968 Unknown [id number] 2.16.84 0.1.338718.3.579.2.593 1968 Unknown [id number] 2.16.84 0.1.611801.3.579.2.593 1968 Unknown [id number] 2.16.84 0.1.177712.3.579.2.593 1968 Unknown [id number] 2.16.84 0.1.186655.3.579.2.593 1968 Unknown [id number] 2.16.84 0.1.325535.3.579.2.593 1968 Unknown [id number] 2.16.84 0.1.943871.3.579.2.593 1968 Unknown [id number] 2.16.84 0.1.466674.3.579.2.593 1968 Unknown [id number] 2.16. 840.1.761087.3.579.2.196 1968 Unknown [id number] 2.16. 840.1.084267.3.579.2.196 1968 Unknown [id number] 2.16. 840.1.876347.3.579.2.196 1959 Unknown [id number] Unknown [id number] Unknown [id number] 2.16.8 40.1.126242.3.579.2.531 Social History Date Type Detail Facility Start: 05-14-2020 End: 06-23-2021 Tobacco smoking status [facility] Smoker (finding) [facility] Start: 1970 Sex Assigned At Female F [facility] Start: 06-09-2024 End: 06-15-2024 History of tobacco use [facility] Tobacco smoking stat [facility] Tobacco smoking consumption unknown [facility] Start: 1970 [facility] assigned at [facility] on [facility] Start: 06-09-2024 [facility] History of tobacco use [facility] Start: 06-09-2024 Tobacco use and exposure Smokeless tobacco non-user [facility] Start: 06-09-2024 Alcoholic beverage intake Ex-drinker (finding) [facility] Start: 06-09-2024 End: 06-15-2024 History of Social function [facility] Adult Depression Screening Assessment 3 [facility] Medical Equipment Procedure Code Equipment Code Equipment Origin al Text Equipment Identifier Dates Fusion, spine, lumbar, XLIF CANCELLOUS COARSE 7.5CC FDA Start: 05-22-2020 Fusion, spine, lumbar, XLIF Bone-screw internal spinal fixation system, non-sterile ()[id number] FDA Start: 05-22-2020 Fusion, spine, lumbar, XLIF Bone-screw internal spinal fixation system, non-sterile ()[id number] FDA Start: 05-22-2020 Fusion, spine, lumbar, XLIF Bone-screw internal spinal fixation system, non-sterile ()[id number] FDA Start: 05-22-2020 Fusion, spine, lumbar, XLIF CANCELLOUS COARSE 7.5CC FDA Start: 05-22-2020 Fusion, spine, lumbar, XLIF Bone-screw internal spinal fixation system, non-sterile ()[id number] FDA Start: 05-22-2020 Fusion, spine, lumbar, XLIF Bone-screw internal spinal fixation system, non-sterile ()[id number] FDA Start: 05-22-2020 Fusion, spine, lumbar, XLIF Polymeric spinal fusion cage, non-sterile ()[id number] FDA Start: 05-22-2020 Fusion, spine, lumbar, XLIF Dura mater graft, bovine ()[id number] FDA Start: 05-22-2020 Fusion, spine, lumbar, XLIF MAS REDUCTION FIXATION ADD LEV FDA Start: 05-22-2020 Fusion, spine, lumbar, XLIF XLIF 1 LEVEL MAS REDUCTION FDA Start: 05-22-2020 Fusion, spine, lumbar, XLIF Spinal fusion graft kit [id number] FDA Start: 05-22-2020 Fusion, spine, lumbar, XLIF Bone matrix implant, human-derived ()[id number] FDA Start: 05-22-2020 Fusion, spine, lumbar, XLIF Metallic spinal fusion cage, non-sterile ()[id number] FDA Start: 05-22-2020 Fusion, spine, lumbar, XLIF Bone-screw internal spinal fixation system, non-sterile ()[id number] FDA Start: 05-22-2020 Fusion, spine, lumbar, XLIF [...] Corbett RN June 23, 2024 11:12 AM [facility] 06-23-2024 Miscellaneous Notes Neuro SPINE CARE COORDINATION [...] Pt can schedule. documented in this encounter [facility] 06-22-2024 Telephone encounter Note Pt called asking for orders informed by on OV 06/16/24. Discussed with patient will order CT and EMG as well as standing xray Pls send MyC msg once orders are ready so that Pt can schedule. [facility] 06-16-2024 Note HNO ID: [id number] Author: JOELLE SARMIENTO MD Service: ? Author Type: Physician Type: Progress Notes Filed: 06/16/2024 17:55 Note Text: Rescheduled, no charge [facility] 06-16-2024 Note HNO ID: [id number] Author: JOELLE SARMIENTO MD Service: ? Author Type: Physician Type: Progress Notes Filed: 06/16/2024 09:36 Note Text: I have communicated my name and active licensure. The patient's identity and physical location were verified at the time of this visit. Either the patient or their legal student services representative has been informed of the risks [...] with more than 50% of the total bdjm-im-kcbg time of the visit in counseling / coordination of care. [facility] 06-16-2024 History of Presen t illness Narrative I have communicated my name and active licensure. The patient's identity and physical location were verified at the time of this visit. Either the patient or their legal student services representative has been informed of the risks [...] with more than 50% of the total thuy-ji-vnvb time of the visit in counseling / coordination of care. documented in this encounter [facility] 03-10-2024 Note HNO ID: [id number] Author: KENAN GODOY APRN.[facility] Service: ? Author Type: Nurse Practitioner Type: Progress Notes Filed: 03/10/2024 16:07 Note Text: Per Triage: iKm Hill is a 53 year old female [...] gabapentin, meloxicam, voltaren cream, heat, mdp x1 Flintstone - 3x/dy Studies (Reports unless indicated) Mri lumbar report Lumbarization S1 S/p :L4-S1 fusion L5/S1 mod b/l FS S1/2 paraspinal muscle mod to severe atrophy Disposition: Please schedule with dr sarmiento if patient would like soon can schedule with myself. Please instruct patient to bring copy of imaging and injection history for review. [facility] 03-10-2024 History of Presen t illness [...] gabapentin, meloxicam, voltaren cream, heat, mdp x1 Flintstone - 3x/dy Studies (Reports unless indicated) Mri [...] Health Provider or Pain Management Provider at [facility]? No If answer is YES please schedule [...] the facility where the MRI/CT/myelogram was completed: [place] [address] MRI/CT/myelogram viewable in Epic: No If not, please provide [phone] to fax in imaging reports for review. Also, please inform patient to hand carry imaging disc to appointment. XR (spine) within 12 months: Yes If YES, please ask for the name/address of the facility where the XR was completed: [place] [address] Dr. Freeman's patients: Have you had previous [...] therapy was completed [facility] [place] - [address] [place] [address] Have you tried any other kinds of non-surgical treatments in the last 12 months? (For example: NSAIDS, muscle relaxants, analgesics, oral steroids, Chiropractor, Acupuncture): gabapentin, meloxicam, voltaren cream, heat, mdp x1 4. Are you currently taking daily prescribed narcotic medications for your current symptoms (For example Oxycodone, Hydrocodone, Tramadol, Morphine, Other)? Yes Flintstone - 3x/dy 5. Have you had previous spinal surgery for this same symptoms? Yes If YES please ask for the name of facility/address of where the surgery was completed: [facility] cages Additional Comments [phone] documented in this encounter [facility] 03-06-2024 Note HNO ID: [id number] Author: ?, ?, ? Service: ? Author Type: ? Type: Progress Notes Filed: 03/10/2024 16:07 Note Text: Patient name: Kim Hill Are you being referred by a [facility] Spine Health Provider or Pain Management Provider at [facility]? No If answer is YES please schedule [...] the facility where the MRI/[place]el[place] [address] [place] [address] MRI/CT/myelogram viewable in Epic: No If not, please provide [phone] to fax in imaging reports for review. Also, please inform patient to hand carry imaging disc to appointment. XR (spine) within 12 months: Yes If YES,? please ask for the name/address of the facility where the XR was completed: [place] [address] Dr. Freeman's patients: Have you had previous [...] therapy was completed [place] [place] [address] Have you tried any other kinds of non-surgical treatments in the last 12 months? (For example: NSAIDS, muscle relaxants, analgesics, oral steroids, Chiropractor, Acupuncture): gabapentin, meloxicam, voltaren cream, heat, mdp x1 4. Are you currently taking daily prescribed narcotic medications for your current symptoms (For example Oxycodone, Hydrocodone, Tramadol, Morphine, Other)? Yes Flintstone - 3x/dy 5. Have you had previous spinal surgery for this same symptoms? Yes If YES? please ask for the name of facility/address of where the surgery was completed: [facility] - [facility] - 2 cages Additional Comments [phone] [facility] 10-06-2022 Note CONSULTATION CONSULTATION DATE: 10/06/2022 [...] pill b.i.d. and to continue to use Flintstone 7.5 mg t.i.d. We did reduce the use at her last visit from 90 pills a month to 80 pills to last one month's time. She appears to be tolerating this transition quite well. I have asked her to continue with gabapentin 600 mg t.i.d. Her JOYCE on today's visit is 28. She reports the Flintstone does improve her quality of life, level of functioning and sleep pattern, and she denies any side effects. As part of providing excellent, safe, comprehensive care, the following was completed at our patient's visit: 1. A medication reconciliation and review to ensure accurate knowledge of current/active medications, including asking our patients to inform us about any nunt-ejc-nskuqxk medications or herbal remedies/nutritional supplements/alternative remedies. 2. [...] with their primary care provider. [facility] 09-01-2022 Note CONSULTATION CONSULTATION DATE: 09/01/2022 [...] our patients to inform us about any scxl-ayb-bdljvwm medications or herbal remedies/nutritional supplements/alternative remedies. 2. [...] with their primary care provider. [facility] 08-17-2022 Evaluation note Encounter Date Diagnosis Assessment Notes Jul, Other chronic pain (ICD-10 - G89.29) Jul, Low back pain, unspecified (ICD-10 - M54.50) [facility] Other 02-16-2023 NoteCONSULTATION CONSULTATION DATE: 07/16/2022 HISTORY OF PRESENT ILLNESS: This is a 51-year-old female who returns to the clinic status post bilateral SI joint injection completed on 06/23/2022. The patient received 80% relief for one day and on day two felt worse than her normal baseline pain. Today, she rates her pain 8/10. Medications include gabapentin 600 mg t.i.d., Flintstone 7.5/325 b.i.d. and Mobic 15 mg daily. [...] her medications; Mobic 15 mg daily and Flintstone 7.5/325 b.i.d. She will return to the clinic in six weeks' time, in which we will, in addition to her PCPs office, review the MRI and form a plan of care at that time. Patient is in agreement to this plan.[facility] [id number] Note CONSULTATION CONSULTATION DATE: 05/29/2022 HISTORY OF [...] down. Medications include gabapentin 600 mg t.i.d., Flintstone 7.5/325 b.i.d. and diclofenac 50 mg daily. [...] and will be followed up thereafter.[facility] [id number] NoteCONSULTATION CONSULTATION DATE: 05/14/2022 HISTORY OF PRESENT [...] as well as gabapentin 600 mg t.i.d., Flintstone 7.5/325 t.i.d. At her last appointment, she [...] Refills for gabapentin 600 mg t.i.d. and Flintstone 7.5/325 b.i.d. will be sent to her pharmacy. Patient agrees to move forward with the procedure. She will followed up in the clinic thereafter.[facility] [id number] NotePAIN MANAGEMENT CONSULTATION CONSULTATION DATE: 05/14/2022 CHIEF [...] a sacroiliac joint injection under fluoroscopy.[facility] [id number] NoteCONSULTATION CONSULTATION DATE: 03/12/2022 ADDENDUM DIAGNOSIS: Lumbar spondylosis, lumbar degenerative disc disease, chronic lower back pain and a history of a lumbar fusion.[facility] [id number] Note CONSULTATION CONSULTATION DATE: 03/12/2022 This is [...] Current medications include gabapentin 600 mg t.i.d., Flintstone 7.5/325 b.i.d., diclofenac cream and ibuprofen. She [...] with her vitamins as well as her Flintstone. The dose of frequency will not be changed. We will have the patient return to the clinic in two months' time for re-evaluation. The patient is inquiring about an increase of her Flintstone, possibly during the winter months. There will be no changes today.[facility] [id number] NoteCONSULTATION CONSULTATION DATE: 01/07/2022 This is a [...] Current medications include gabapentin 600 mg b.i.d., Flintstone 7.5/325 b.i.d., diclofenac topical, multivitamin regimen and ibuprofen p.r.n. She has tried diclofenac in the past but was unable to tolerate it due to stomach issues but low-dose ibuprofen she can tolerate. She is needing Flintstone and gabapentin refill today. REVIEW OF SYSTEMS, [...] subsequently move to the left. Refill for Flintstone 7.5/325 b.i.d. and gabapentin 600 mg b.i.d. will be sent to the pharmacy. The patient is encouraged to increase magnesium in her vitamin regimen as well as menthol heat rub, seated stretches that were demonstrated and heat application. The patient agrees with the plan of care and would like to move forward and she will follow-up in the clinic post procedure.[facility] HospitalEvaluation noteNo assessment information availableAccess [facility] Work Phone: Evaluation noteNo InformationNortChestnut Hill Hospital [facility] Other evaluation note* Diagnosis Lumbar radiculopathy- Primary Thoracic or lumbosacral neuritis or radiculitis, unspecified [facility] Diagnosis Radiculopathy of lumbar region- Primary Thoracic or lumbosacral neuritis or radiculitis, unspecified Spinal stenosis of lumbar region without neurogenic claudication Spinal stenosis, lumbar region, without neurogenic claudication Right foot drop Other acquired deformity of ankle and foot documented in this encounter [facility] general Narrative - Reported* Type Description Date Medical History osteoarthritis Medical History rheumatoid arthritis Medical History carpal tunnel Medical History fibromyalgia Medical History hypertension Medical History Arthritis Medical History asthma Medical History obesity Medical History pneumonia Medical History anxiety Surgical History hysterectomy 01/2012 Surgical History back surgery Surgical History left middle finger surgery Hospitalization History see above Hospitalization History 4 child births [facility] Other reason for referral (narrative)* Diagnostic Procedure Only (Routine) - New Request Specialty Diagnoses / Procedures Referred By Claritza schumacher Referred To Contact XR IMAGING Diagnoses Radiculopathy of lumbar region Spinal stenosis of lumbar region without neurogenic claudication Procedures XR LUMBAR MOTION 4V AP/LAT/ FLEX/EXT RADEX SPINE LUMBOSACRAL MINIMUM 4 VIEWS Kenan Godoy APRN.[facility] [address] [place] [address] Xr Imaging [place] [address] Referral ID Status Reason Start Date Expiration Date Visits Requested Visits Authorized [id number] New Request Auto-Generat ed Referral 06/23/2024 07/23/2025 1 1 * Outpatient Procedure (Routine) - New Request Specialty Diagnoses / Procedures Referred By Contac t Referred To Contact [facility] Diagnoses Radiculopathy of lumbar region Spinal stenosis of lumbar region without neurogenic claudication Right foot drop Procedures EMG(NEURO/NI) NERVE CONDUCTION STUDIES 9-10 STUDIES Kenan Godoy APRN.[facility] [address] [place] [address] [address] [place] [address] Referral ID Status Reason Start Date Expiration Date Visits Requested Visits Authorized [id number] New Request Auto-Generat ed Referral 06/23/2024 06/23/2025 1 1 * MRI/CT (Routine) - New Request Specialty Diagnoses / Procedures Referred By Contac t Referred To Contact CT IMAGING Diagnoses Radiculopathy of lumbar region Spinal stenosis of lumbar region without neurogenic claudication Procedures CT LUMBAR SPINE WO IVCON CT LUMBAR SPINE W/O CONTRAST MATERIAL Kenan Godoy APRN.[facility] [address] [place] [address] Ct Imaging [place] [address] Referral ID Status Reason Start Date Expiration Date Visits Requested Visits Authorized [id number] New Request Auto-Generat ed Referral 06/23/2024 07/23/2025 1 1 [facility] Advance Directives Advance Directive Response Recorded Date/ [...] Active Gina Guerrero MD Attending Provider Active Crop Roller Relationship Specialty Start Date End Date Aby Mark CNP [address] [place] [id number] Referring Family Medicine 03/02/24 Crop Roller Relationship Specialty Start Date End Date Aby Mark CNP [address] [place] [id number] Referring Family Medicine 03/02/24 Crop Roller Relationship Specialty Start Date End Date Aby Mark CNP [address] [place] [id number] Referring Family Medicine 03/02/24 Goals (unrecognized section and content) Goals may be documented in a n alternate sectionGoals may be documented in an alternate sectionGoals may be documented in an alternate sectionGoals may be documented in an alternate sectionNo InformationNo Information INFORMATION SOURCE (unrecogn ized section and content) DATE CREATED AUTHOR 08/01/2022 [facility] dical Specialist DATE CREATED AUTHOR AUTHOR'S ORGANIZ ATION 11/06/2022 [facility] DATE CREATED AUTHOR AUTHOR'S ORGANIZ ATION 11/24/2023 [facility] DATE CREATED AUTHOR AUTHOR'S ORGANIZ ATION 04/30/2024 [facility] DATE CREATED AUTHOR AUTHOR'S TERRY LOYD 06/19/2024 [facility] REASON FOR VISIT (unrecogniz ed section and content) Reason Comments Established Patient Reason Comments Orders Source Comments (unrecognize d section and content) In the event this informatio n is protected by the Federal Confidentiality of Alcohol and Drug Abuse Patient Records regulations: The Federal rules restrict any use of the information to criminally investigate or prosecute any alcohol or drug abuse patient.[facility] the event this information is protected by the Federal Confidentiality of Alcohol and Drug Abuse Patient Records regulations: The Federal rules restrict any use of the information to criminally investigate or prosecute any alcohol or drug abuse patient.[facility] the event this information is protected by the Federal Confidentiality of Alcohol and Drug Abuse Patient Records regulations: The Federal rules restrict any use of the information to criminally investigate or prosecute any alcohol or drug abuse patient.[facility] FOR RECORDS PERTAINING TO PATIENTS WHO ARE [...] [facility] [employer] [facility]. provides no warranty or guarantee of the accuracy or completeness of information in this document.
== END 2024-08-10 15:07 | disposition home or self-care (01) ==
PROVIDERS: Visit Provider Nurse Practitioner
DX: M53.3 Sacrococcygeal disorders, not elsewhere classified (principal); M48.062 Spinal stenosis, lumbar region with neurogenic claudication; M96.1 Postlaminectomy syndrome, not elsewhere classified; M54.16 Radiculopathy, lumbar region; M47.816 Spondylosis without myelopathy or radiculopathy, lumbar region; Z79.891 Long term (current) use of opiate analgesic
CPT/HCPCS: G0463

== ENCOUNTER 2024-08-28 09:28 | Day surgery (SDC) | payer BC, SELFPAY ==
--- OUTSIDE RECORDS SUMMARY | 2024-08-28 09:45 | XMS_ITS | CCD ---
Author Organization [facility] Care Team Providers Care Agriculture Research Director Name Role Phone Roberto Roth Primary Care Provider [phone] Justice Cruz Attending Provider DO Roberto Roth Primary Care Provider MD Hood Rausch Attending Provider [phone] DO Roberto Roth Primary Care Provider [phone] CALVIN Mark Attending Provider MD Paresh Tian Attending Provider RothDO Roberto oliva Primary Care Provider [phone] CALVIN Mark Attending Provider MD Paresh Tian Attending Provider MD Gina Guerrero Attending Provider [phone] Gina Guerrero Unavailable SHE ., DR HOOD [...] ROTH, DR ROBERTO Bhakta Primary Care Unavailable [place], DR DASHA Gomez Consulting Unavailable SINGH ., [...] Guerrero Admitting Unavailable Aby Mark CNP Unavailable [phone] Panda BUSTILLO, Aaron Musa Attending Unavailable Panda BUSTILLO, Aaron Musa Attending Unavailable Panda BUSTILLO, Aaron Musa Attending Unavailable ABY MARK Referring Unavailable JOELLE SARMIENTO Attending Unavailable JOELLE SARMIENTO Attending Unavailable ABY MARK Referring Unavailable Unavailable Unavailable Unavailable Allergies Allergy Classification Reported Allergen(s) Allergy Type Date of Onset Reaction(s) Facility (6 sources) Amoxicillin; Translations: [amoxicillin] Drug Allergy 05-14-20 20 Nausea [facility] (10 sources) Penicillins; Translations: [Penicillins] Propensity to adverse reactions 07-24-19 14 Rash, Diarrhea [facility] (6 sources) clavulanic acid; Translations: [clavulanic acid] Propensity to adverse reactions 05-14-20 20 [facility] (3 sources) Amoxicillin / Clavulanate; Translations: [Augmentin] Drug Allergy 07-24-19 14 Unknown [facility] (2 sources) Azithromycin Drug Allergy [facility] Other (2 sources) Penicillin G Drug Allergy Unknown [facility] Other Medications Current Medications Medication Drug Class(es) Dates Sig (Normalized) Sig (Original) acetaminophen 500 mg oral tablet (4 sources) Start: 05-31-2020 take 500 mg by mouth every four hours Acetaminophen Active 500 MG PO Q4H 100 May 31, 2020 1:00am [id number] 200 actuat albuterol 0.09 mg/actuat metered dose [...] take 1 puff(s) by inhalation once daily nwmodeufjle-qfsrtrgms-rz lanter (TRELEGY ELLIPTA) 100-62.5-25 mcg inhalation powder [...] by mouth three times daily Hydrocodone-Acetami nophen ([place]) 5-325 mg Tablet Discontinued 1 TAB PO Three times daily March 18, 2019 12:00am May 23, 2020 4:59pm take 7.5 mg by mouth three times daily hydrocodone/acetaminophen (NORCO ORAL) T francie 7.5 mg by mouth three times a day. Active [place] Active azithromycin 250 mg oral tablet (4 [...] sources) High risk drug monitoring status; Translations: [detention (current) use of opiate analgesic] Episodic Other [...] Test Name Value Interpretation Reference Range Facility [facility] 06-09-2024 CNOV Office Visit (SPNSMN ) KIM HILL ([id number]) 1970 F Date Time Provider Department 06/09/24 4:00 PM JOELLE SARMIENTO JOSEIL During your visit today, we recorded the following information about you: Pulse Blood pressure Weight Height 92/minute 104/52 98 kg 1.6 m Joelle Sarmiento MD 06/16/2024 5:55 PM Signed Rescheduled, no charge Referring Provider: ABY MARK [[id number]] Allergies As of Date: 06/09/2024 Noted Allergy Reaction PENICILLINS 06/09/2024 2 - Rash 6 - Diarrhea Date Reviewed: 06/09/2024 Reviewed by: Olive Ross OCCA - Fully Assessed Reason for Visit: New Patient [172] New Patient Evaluation [154] Cmt: Postop complications from prior surgery outside [facility] Primary Visit Diagnosis:Chronic bilateral low back pain [...] mg by mouth daily at bedtime. - hjwencktvbr-azonbkbdb-j ilanter (TRELEGY ELLIPTA) 100-62.5-25 mcg inhalation powder [...] Status:Closed by JOELLE SARMIENTO on 06/16/24 Normal [facility] MRI Lumbar Spine w/o + w/on [...] Justice Lucas on 07/31/2022 0915 Normal [employer] Automated erythrocytes count in urine sediment (number/area)Ordered By: Paresh Tian on 07-16-2022 RBC Auto (Urine sed) [#/Area] 1-2 [HPF] 0-4 [facility] Automated leukocytes count i n urine sediment (number/area)Ordered By: Paresh Tian on 07-16-2022 WBC Auto (Urine sed) [#/Area] 20-49 [HPF] 0-4 [facility] Basophils Auto (Bld) [#/Vol] Ordered By: Paresh Tian on 07-16-2022 Basophils (Bld) [#/Vol] 0.0 10*3/uL 0.0-0.2 [facility] Basophils/100 WBC Auto (Bld) Ordered By: Paresh Tian on 07-16-2022 Basophils/100 WBC (Bld) 0.4 % . [facility] Bilirubin Test strip Ql (U)O rdered By: Paresh Tian on 07-16-2022 Bilirubin Ql (U) Negative Negative [facility] C reactive protein [Mass/vol ume] in Serum or PlasmaOrdered By: Paresh Tian on 07-16-2022 CRP [Mass/Vol] 0.8 mg/dL 0.0-1.0 [facility] Color Auto (U)Ordered By: Afia Tian on 07-16-2022 Color (U) Yellow Yellow [facility] Creatinine and Glomerular fi ltration rate.predicted panel (S/P/Bld)Ordered By: Paresh Tian on 07-16-2022 Creatinine [Mass/Vol] 0.74 mg/dL 0.44-1.03 [facility] Eosinophils Auto (Bld) [#/Vo l]Ordered By: Paresh Tian on 07-16-2022 Eosinophils (Bld) [#/Vol] 0.1 10*3/uL 0.0-0.45 [facility] Eosinophils/100 WBC Auto (Bl d)Ordered By: Paresh Tian on 07-16-2022 Eosinophils/100 WBC (Bld) 1.1 % . [facility] Erythrocyte distribution wid th Auto (RBC) [Ratio]Ordered By: Paresh Tian on 07-16-2022 Erythrocyte distribution width (RBC) [Ratio] 13.0 % 11.9-15.3 [facility] Erythrocyte sedimentation ra te by Photometric methodOrdered By: Paresh Tian on 07-16-2022 ESR Photometric method (Bld) [Velocity] 45 mm/hr 0-29 [facility] Estimated glomerular filtrat ion rate (GFR) non- AmericanOrdered By: Paresh Tian on 07-16-2022 GFR/1.73 sq M.predicted among non-blacks MDRD (S/P/Bld) [Vol rate/Area] > 60 mL/Min [facility] Hematocrit Auto (Bld) [Volum e fraction]Ordered By: Paresh Tian on 07-16-2022 Hematocrit (Bld) [Volume fraction] 45.3 % 34.0-46.4 [facility] Hemoglobin [Mass/volume] in BloodOrdered By: Paresh Tian on 07-16-2022 Hemoglobin (Bld) [Mass/Vol] 15.2 g/dL 11.8-15.4 [facility] Ketones Auto test strip (U) [Mass/Vol]Ordered By: Paresh Tian on 07-16-2022 Ketones (U) [Mass/Vol] Negative Negative [facility] - UrinalysisOrder ed By: Paresh Tian on 07-16-2022 Hyaline casts LM Ql (Urine sed) 0-8 [LPF] 0-8 [facility] Leukocytes [#/volume] correc scot for nucleated erythrocytes in Blood by Automated counOrdered By: Paresh Tian on 07-16-2022 WBC corrected for nucl RBC Auto (Bld) [#/Vol] 10.4 10*3/uL 3.8-11.6 [facility] Lymphocytes Auto (Bld) [#/Vo l]Ordered By: Paresh Tian on 07-16-2022 Lymphocytes (Bld) [#/Vol] 3.7 10*3/uL 1.00-4.8 [facility] Lymphocytes/100 WBC Auto (Bl d)Ordered By: Paresh Tian on 07-16-2022 Lymphocytes/100 WBC (Bld) 35.0 % . [facility] MCH Auto (RBC) [Entitic mass ]Ordered By: Paresh Tian on 07-16-2022 MCH (RBC) [Entitic mass] 33.8 pg 24.7-34.3 [facility] MCHC Auto (RBC) [Mass/Vol]Or dered By: Paresh Tian on 07-16-2022 MCHC (RBC) [Mass/Vol] 33.6 g/dL 32.0-35.0 [facility] MCV Auto (RBC) [Entitic vol] Ordered By: Paresh Tian on 07-16-2022 MCV (RBC) [Entitic vol] 100.6 fL 80-100 [facility] Mitotic spindle apparatus Ab [Titer] in Serum or Plasma by ImmunofluorescenceOrdered By: Paresh Tian on 07-16-2022 Mitotic spindle apparatus Ab IF [Titer] 1:160 . [facility] Comment on above: ICAP nomenclature: A C-25,26 Monocytes Auto (Bld) [#/Vol] Ordered By: Paresh Tian on 07-16-2022 Monocytes (Bld) [#/Vol] 0.7 10*3/uL 0.0-0.8 [facility] Monocytes/100 WBC Auto (Bld) Ordered By: Paresh Tian on 07-16-2022 Monocytes/100 WBC (Bld) 6.8 % . [facility] Neutrophils Auto (Bld) [#/Vo l]Ordered By: Paresh Tian on 07-16-2022 Neutrophils (Bld) [#/Vol] 5.9 10*3/uL 1.8-7.7 [facility] Neutrophils/100 WBC Auto (Bl d)Ordered By: Paresh Tian on 07-16-2022 Neutrophils/100 WBC (Bld) 56.7 % . [facility] Nitrite Test strip Ql (U)Ord ered By: Paresh Tian on 07-16-2022 Nitrite Ql (U) Negative Negative [facility] No Panel InformationOrdered By: Paresh Tian on 07-16-2022 Anti-Nuclear Antibody Comment 2 See comment . [facility] Comment on above: For more information about Hep-2 cell patterns usenScaledpatterns.org, the official website for the InternationalConsensus on Antinuclear Antibody (ASTER) Patterns (ICAP). --------A positive ASTER result may occur in healthy individuals (lowtiter) or be associated with a variety of diseases. Seeinterpretation chart which is not all inclusive:Pattern Antigen Detected Suggested Disease Association Homogeneous DNA(ds,ss), SLE - High titers Nucleosomes, Histones Drug-induced SLE Speckled Sm, RAILROAD CRANE OPERATOR, SCL-70, SLE,MCTD,PSS (diffuse form), SS-A/SS-B Sjogrens Nucleolar SCL-70, PM-1/SCL High titers Scleroderma, PM/DM Centromere Centromere PSS (limited form) w/Crest syndrome variable Nuclear Dot [id number] Primary Biliary Cirrhosis Nuclear GP210, Primary Biliary CirrhosisMembrane kailyn A,B,C Performed at: [facility] [id number] Director: Collin Rodriguez PhD, Phone: [phone] Estimated GFR () > 60 mL/Min [facility] Comment on above: GFR estimated refere nce range: According to KDOQI guidelines, <60 ml/min/1.73m2 is sufficient to diagnose a patient with chronic kidney disease. Pharmacy Creatinine Clearance (Chem N/A [facility] Total Complement (CH50) >60 U/mL >41 [facility] Comment on above: Age Male Female [...] to determine out of range values.Performed at: [facility] [id number] Director: Collin Rodriguez PhD, Phone: [phone] Nucleated erythrocytes [Pres ence] in Blood by Automated countOrdered By: Paresh Tian on 07-16-2022 Nucleated RBC Auto Ql (Bld) 0.1 /100{WBC} 0-0.5 [facility] Platelet mean volume Auto (B ld) [Entitic vol]Ordered By: Paresh Tian on 07-16-2022 Platelet mean volume (Bld) [Entitic vol] 8.4 fL 6.3-10.7 [facility] Platelets Auto (Bld) [#/Vol] Ordered By: Paresh Tian on 07-16-2022 Platelets (Bld) [#/Vol] 242 10*3/uL 150-450 [facility] Protein Auto test strip (U) [Mass/Vol]Ordered By: Paresh Tian on 07-16-2022 Protein (U) [Mass/Vol] Negative Negative [facility] RBC Auto (Bld) [#/Vol]Ordere d By: Paresh Tian on 07-16-2022 RBC (Bld) [#/Vol] 4.50 10*6/uL 3.60-5.00 [facility] Serum homogeneous pattern an tinuclear antibody (ASTER) titerOrdered By: Paresh Tian on 07-16-2022 Homogenous nuclear Ab pattern (S) [Titer] N/A [facility] Serum nuclear antibody titer Ordered By: Paresh Tian on 07-16-2022 Nuclear Ab (S) [Titer] Positive . [facility] Comment on above: Negative <1:80 Borde rline 1:80 Positive >1:80 Serum or plasma complement C 3 measurement (mass/volume)Ordered By: Paresh Tian on 07-16-2022 Complement C3 [Mass/Vol] 197 mg/dL 82-167 [facility] Comment on above: Performed at: [address] Director: Collin Rodriguez PhD, Phone: [phone] Serum or plasma complement C 4 measurement (mass/volume)Ordered By: Paresh Tian on 07-16-2022 Complement C4 [Mass/Vol] 42 mg/dL 12-38 [facility] Specific gravity Auto test s trip (U) [Rel density]Ordered By: Paresh Tian on 07-16-2022 Specific gravity (U) [Rel density] 1.018 1.001-1.03 0 [facility] Squamous epithelial cells de tection in urine sediment by light microscopyOrdered By: Paresh Tian on 07-16-2022 Epithelial cells.squamous LM Ql (Urine sed) 0-1 [HPF] 0-2 [facility] Urine bacteria detection by automated methodOrdered By: Paresh Tian on 07-16-2022 Bacteria Auto Ql (U) 4+ None [facility] Urine clarity by refractomet ry automatedOrdered By: Paresh Tian on 07-16-2022 Clarity Refractometry automated (U) Clear Clear [facility] Urine culture routineOrdered By: Paresh Tian on 07-16-2022 Bacteria identified Cx Nom (U) Escherichia coli [facility] Urine glucose measurement by automated test strip (mass/volume)Ordered By: Paresh Tian on 07-16-2022 Glucose Auto test strip (U) [Mass/Vol] Normal mg/dL Normal [facility] Urine hemoglobin detection b y automated test stripOrdered By: Paresh Tian on 07-16-2022 Hemoglobin Auto test strip Ql (U) Negative Negative [facility] Urine leukocyte esterase det ection by automated test stripOrdered By: Paresh Tian on 07-16-2022 Leukocyte esterase Auto test strip Ql (U) 3+ Negative [facility] Urobilinogen Auto test strip (U) [Mass/Vol]Ordered By: Paresh Tian on 07-16-2022 Urobilinogen (U) [Mass/Vol] Normal mg/dL Normal [facility] WBC Auto (Bld) [#/Vol]Ordere d By: Paresh Tian on 07-16-2022 WBC (Bld) [#/Vol] 10.4 10*3/uL 3.8-11.6 [facility] pH Auto test strip (U)Ordere d By: Paresh Tian on 07-16-2022 pH (U) 6.5 [pH] 5.0-9.0 [facility] XR HIPS ZEINA 3_4V WO PELVISon 05-15-2022 [...] DASHA KHAN Date: 2022-05-15 07:49 Normal [facility] Covid-19 PCR (CVDTBH)on SARS-CoV-2 (COVID-19) RNA AMBERLY+probe Ql (Unsp spec) Not detected Normal NOT DETECTED [facility] Comment on above: Result Comment: This test is not yet approved or cleared by the [place] FDA. When there are no FDA-approved or cleared tests available, and other criteria are met, FDA can make tests available under an emergency access mechanism called an Emergency Use Authorization (EUA). The EUA for this test is supported by the [place] [employer] of Health and Human Service's (HHS's) declaration [...] consistent with SARS-CoV-2. Performed By: #### C [facility] #### [facility] [address] [place] [address] Dr. Narendra Jacobsen COVID-19 Positive/NegativeOr dered By: Baljinder Rausch on 01-31-2022 SARS-CoV-2 (COVID-19) N gene AMBERLY+probe Ql (Resp) Negative Negative [facility] Comment on above: Testing for SARS-CoV -2 by RT-PCR This test was developed and its performance characteristics determined by [employer] ([employer]) and validated at the [facility]. This test has not been FDA cleared [...] COVID-19 Positive/Negativeon 05-20-2020 COVID-19 Positive/Negative Negative Negative [facility] Comment on above: Testing for SARS-CoV -2 by RT-PCRThis test was developed and its performance characteristics determined by [employer] ([employer] and validated at the [facility]. This test has not been FDA cleared [...] Otheron 05-20-2020 Coronavirus 2019 PCR Interp N/A [facility] Automated basophil %on 05-14 Basophils/100 WBC (Bld) 0.5 % F [facility] Automated basophil counton 1 07-15-2019 Basophils (Bld) [#/Vol] 0.0 10*3/uL 0.0-0.2 [facility] Automated blood lymphocyte c ount (number/volume)on 05-14-2020 Lymphocytes (Bld) [#/Vol] 2.8 10*3/uL 1.00-4.8 [facility] Automated blood lymphocyte c ount as percentage of total leukocyteson 05-14-2020 Lymphocytes/100 WBC (Bld) 35.0 % [facility] Automated blood monocyte cou nton 05-14-2020 Monocytes (Bld) [#/Vol] 0.6 10*3/uL 0.0-0.8 [facility] Automated blood platelet cou nt (count/volume)on 05-14-2020 Platelets (Bld) [#/Vol] 225 10*3/uL 150-450 [facility] Automated blood platelet jose n volume measurementon 05-14-2020 Platelet mean volume (Bld) [Entitic vol] 8.2 fL 6.3-10.7 [facility] Automated eosinophil %on Eosinophils/100 WBC (Bld) 1.5 % [facility] Automated eosinophil counton 05-14-2020 Eosinophils (Bld) [#/Vol] 0.1 10*3/uL 0.0-0.45 [facility] Automated erythrocyte distri bution width ratioon 05-14-2020 Erythrocyte distribution width (RBC) [Ratio] 12.3 % 11.9-15.3 [facility] Automated erythrocyte mean c orpuscular hemoglobin (mass per erythrocyte)on 05-14-2020 MCH (RBC) [Entitic mass] 35.2 pg 24.7-34.3 [facility] Automated erythrocyte mean c orpuscular hemoglobin concentration measurement (mass/volon 05-14-2020 MCHC (RBC) [Mass/Vol] 34.2 g/dL 32.0-35.0 [facility] Automated erythrocyte mean c orpuscular volumeon 05-14-2020 MCV (RBC) [Entitic vol] 102.9 fL 80-[address] [facility] Automated monocyte %on 05-14 Monocytes/100 WBC (Bld) 7.0 % F [facility] Automated neutrophil %on Neutrophils/100 WBC (Bld) 56.0 % [facility] Blood erythrocytes automated count (number/volume)on 05-14-2020 RBC (Bld) [#/Vol] 4.08 10*6/uL 3.60-5.00 [facility] Blood hemoglobin measurement (mass/volume)on 05-14-2020 Hemoglobin (Bld) [Mass/Vol] 14.3 g/dL 11.8-15.4 [facility] Blood leukocytes automated c ount (number/volume)on 05-14-2020 WBC (Bld) [#/Vol] 7.9 10*3/uL 4.5-11.0 [facility] Blood neutrophil count by au tomated method (number/volume)on 05-14-2020 Neutrophils (Bld) [#/Vol] 4.4 10*3/uL 1.8-7.7 [facility] Estimated glomerular filtrat ion rate (GFR) non- Americanon 05-14-2020 GFR/1.73 sq M predicted among non-blacks MDRD (S/P/Bld) [Vol rate/Area] mL/min/{1.73_m2} [facility] Hematocrit [Volume Fraction] of Blood by Automated counton 05-14-2020 Hematocrit (Bld) [Volume fraction] 41.9 % 34.0-46.4 [facility] Otheron 05-14-2020 GFR/1.73 sq M.predicted MDRD (S/P/Bld) [Vol rate/Area] mL/min/{1.73_m2} [facility] Comment on above: GFR estimated refere nce range: According to KDOQI guidelines, <60 ml/min/1.73m2 is sufficient to diagnose a patient with chronic kidney disease. Nucleated RBC/100 WBC (Bld) [Ratio] 0.1 % 0-0.5 [facility] Pharmacy Creatinine Clearance (Chem N/A [facility] Serum or plasma calcium octavio urement (mass/volume)on 05-14-2020 Calcium [Mass/Vol] 10.1 mg/dL 8.2-10.2 [facility] Serum or plasma chloride jose surement (moles/volume)on 05-14-2020 Chloride [Moles/Vol] 101 mmol/L 95-114 [facility] Serum or plasma creatinine m easurement with calculation of estimated glomerular filtron 05-14-2020 Creatinine [Mass/Vol] 0.60 mg/dL 0.44-1.03 [facility] Serum or plasma glucose octavio urement (mass/volume)on 05-14-2020 Glucose [Mass/Vol] 94 mg/dL 70-100 [facility] Comment on above: ADA recommended refe rence rangeRandom Glucose Reference Range is dependent on time and content of last meal. Glucose of more than 200 mg/dL in a nonstressed, ambulatory subject supports the diagnosis of Diabetes Mellitus. Serum or plasma potassium me asurement (moles/volume)on 05-14-2020 Potassium [Moles/Vol] 4.3 mmol/L 3.5-5.1 [facility] Serum or plasma sodium measu rement (moles/volume)on 05-14-2020 Sodium [Moles/Vol] 140 mmol/L 136-146 [facility] Serum or plasma total carbon dioxide measurement (moles/volume)on 05-14-2020 CO2 [Moles/Vol] 27.2 mmol/L 22.0-30.0 [facility] Serum or plasma urea nitroge n measurement (mass/volume)on 05-14-2020 Urea nitrogen [Mass/Vol] 7 mg/dL 9-23 [facility] Vital Signs Date Time Vital Sign Value Performing Clinician Facility 08-17-2022 16:00-0400 Body height 160.02 cm Gina Blades Other [facility] Other 08-17-2022 16:00-0400 Body mass index (BMI) [Ratio] 40.56 kg/m2 Gina Blades Other [facility] Other 08-17-2022 16:00-0400 Body weight 103.87 kg Gina Blades Other [facility] Other 08-17-2022 16:00-0400 Diastolic blood pressure 82 mm[Hg] Gina Blades Other [facility] Other 08-17-2022 16:00-0400 Systolic blood pressure 126 mm[Hg] Gina Blades Other [facility] Other Encounters Encounter Date Encounter Type Care Provider Facility Start: 06-22-2024 End: 06-23-2024 Telephone encounter Joelle Sarmiento MD Work Phone: Neurology Comment on above: Orders Start: 06-16-2024 End: 06-16-2024 ambulatory Joelle Sarmiento MD Work Phone: [facility] Comment on above: Lumbar radiculopathy (Primary Dx) Start: 06-16-2024 End: 06-16-2024 Telemedicine consultation with patient Joelle Sarmiento MD Work Phone: [facility] Start: 06-09-2024 ambulatory JOELLE SARMIENTO Facil ity:[facility] Start: 04-24-2024 End: 04-24-2024 ambulatory Aaron Mosqueda MD Facility:[facility] Start: 03-27-2024 End: 03-27-2024 ambulatory Aaron Mosqueda MD Facility:[facility] Start: 03-06-2024 End: 03-10-2024 Chart abstracting Joelle Sarmiento MD Work Phone: Neurology Start: 10-18-2023 End: 10-18-2023 ambulatory Aaron Mosqueda MD Facility:[facility] Start: 10-27-2022 ambulatory NARENDRANATH LAKSHMIPATHY . Facility:[facility] Start: 10-13-2022 End: 10-13-2022 ambulatory NARENDRANATH LAKSHMIPATHY . Facility:[facility] Start: 10-06-2022 End: 10-07-2022 ambulatory NARENDRANATH LAKSHMIPATHY . Facility:[facility] Start: 09-08-2022 End: 09-08-2022 ambulatory Gina Guerrero Other [facility] Other Start: 09-08-2022 Telephone encounter Gina Tamayo [facility] Start: 09-01-2022 End: 09-02-2022 ambulatory NARENDRANATH LAKSHMIPATHY . Facility:[facility] Start: 08-17-2022 End: 08-17-2022 Patient encounter procedure DO Roberto Roth Work Phone: [facility] Work Phone: Start: 08-17-2022 End: 08-17-2022 ambulatory DO Roberto Roth Work Phone: [facility] Work Phone: Start: 08-17-2022 Office outpatient ne w 45 minutes Gina Guerrero [facility] Start: 07-16-2022 End: 07-17-2022 ambulatory DO Roberto Roth Work Phone: [facility] Work Phone: Start: 07-16-2022 End: 07-16-2022 Patient encounter procedure DO Roberto Roth Work Phone: [facility] [address] Work Phone: Start: 07-03-2022 End: 07-03-2022 ambulatory DO Roberto Roth Work Phone: [facility] Work Phone: Start: 07-03-2022 End: 07-03-2022 Patient encounter procedure DO Roberto Roth Work Phone: [facility] [address] Work Phone: Start: 06-23-2022 End: 06-23-[address] HOOD RAUSCH . Facility:[facility] Start: 05-29-2022 End: 05-30-[address] HOOD RAUSCH . Facility:[facility] Start: 05-14-2022 End: 05-15-2022 ambulatory ADA SINGH . Facility:[facility] Start: 03-12-2022 End: 03-13-[address] HOOD RAUSCH . Facility:[facility] Start: 02-13-2022 Encounter for preprocedural laboratory examination DR HOOD RAUSCH . [facility] Start: 02-10-2022 End: 02-10-[address] HOOD RAUSCH . Facility:[facility] Start: 02-06-2022 End: 02-07-[address] HOOD RAUSCH . Facility:[facility] Start: 02-06-2022 End: 02-07-2022 Encounter for preprocedural laboratory examination DR HOOD RAUSCH . Facility:[facility] Start: 02-03-2022 End: 02-03-[address] HOOD RAUSCH . Facility:[facility] Start: 01-31-2022 End: 01-31-2022 Patient encounter procedure DO Roberto Roth Work Phone: [facility] Start: 01-16-[address] HOOD RAUSCH . Faci lity:[facility]1 Start: 01-07-2022 End: 01-08-[address] HOOD RAUSCH . Facility:[facility] Start: 05-20-2020 End: 05-20-2020 Patient encounter procedure Roberto Roth -Pre-Surgical Testing Start: 05-14-2020 End: 05-14-2020 Patient encounter procedure Roberto Roth -Pre-Surgical Testing Start: 04-26-2020 End: 04-26-2020 Patient encounter procedure Roberto Roth -[facility] [address] Procedures Date Procedure Procedure Detail Performing Clinician Start: 07-16-2022 Urine culture DO Roberto reyes Work Phone: Start: 07-03-2022 X-ray of lumbar spin e, six views including bending views DO Roberto Roth Work Phone: Start: 04-26-2020 X-ray of lumbar spin e, four views Roberto Roth Plan of Treatment Date Care Activity Detail Author Start: 01-30-2024 Covid-19 Vaccine ( season) Covid-19 Vaccine ( season) [facility] Start: 01-30-2024 Influenza vaccination Influenza Vacc ine (#1) [facility] Start: 08-17-2022 Plain X-ray of right hip XR hip RT min 2V(w/wo pelvis)* [facility] Start: 08-17-2022 XR Hip - right 2 Views [facility] Start: 07-16-2022 Bacteria identified in Urine by Culture [facility] Start: 07-16-2022 Hemolytic complement CH50 level [facility] Start: 07-16-2022 [facility] Start: 2018 Shingrix Vaccine (1 of 2) Shingrix Vaccine (1 of 2) [facility] Start: 2013 Diabetes Screening Diabetes Screenin g [facility] Start: 2013 Lipid panel Lipid Screening [facility] Start: 2013 Screening for malign ant neoplasm of colon [facility] Start: 2008 Screening for malign ant neoplasm of breast Mammogram Screening [facility] Start: 1989 Screening for malign ant neoplasm of cervix Cervical Cancer Screening [facility] Start: 10-03-1987 Hepatitis B Vaccine (1 of 3 - 19+ 3-dose series) Hepatitis B Vaccine (1 of 3 - 19+ 3-dose series) [facility] Start: 10-03-1987 Pneumococcal Vaccine : 50+ (1 of 2 - PCV) Pneumococcal Vaccine: 50+ (1 of 2 - PCV) [facility] Start: 10-03-1987 Urine microalbumin profile DTaP,Tdap,Td Vaccine (1 - Tdap) [facility] Start: 1986 Anxiety Screening Anxiety Screening [facility] Start: 1986 Depression Screening Depression Scre ening [facility] Start: 1986 Hepatitis C screening Hepatitis C Sc reening [facility] Start: 1986 HIV screening HIV Screening [facility] Complement C3 [Mass/volume] in Serum or Plasma [facility] Complement C4 [Mass/volume] in Serum or Plasma [facility] End: 07-23-2025 CT Lumbar spine WO contrast CT LUMBAR SPINE WO IVCON Radiology Routine Radiculopathy of lumbar region Spinal stenosis of lumbar region without neurogenic claudication 1 Occurrences starting 06/23/2024 until 07/23/2025 [facility] Work Phone: Comment on above: 1 Occurrences starti ng 06/23/2024 until 07/23/2025 End: 06-23-2025 EMG(NEURO/NI) EMG(NEURO/NI) EMG Routine Radiculopathy of lumbar region Spinal stenosis of lumbar region without neurogenic claudication Right foot drop 1 Occurrences starting 06/23/2024 until 06/23/2025 [facility] Comment on above: 1 Occurrences starti ng 06/23/2024 until 06/23/2025 Homogenous nuclear A b pattern [Titer] in Serum [facility] Nuclear Ab [Titer] i n Serum [facility] End: 07-23-2025 XR Lumbar spine Views W flexion and W extension XR LUMBAR MOTION 4V AP/LAT/ FLEX/EXT Radiology Routine Radiculopathy of lumbar region Spinal stenosis of lumbar region without neurogenic claudication 1 Occurrences starting 06/23/2024 until 07/23/2025 [facility] Comment on above: 1 Occurrences starti ng 06/23/2024 until 07/23/2025 Immunizations Immunization Date Immunization Notes Care Provider Jah dasilva 11-09-2020 COVID-19 mRNA-1273 (Moderna) DO Roberto Roth Work Phone: [facility] 10-12-2020 COVID-19 mRNA-1273 (Moderna) DO Roberto Roth Work Phone: [facility] 05-23-2020 influenza, injectabl e, quadrivalent, preservative free DO Roberto Roth Work Phone: [facility] 05-23-2020 influenza virus vaccine, unspecified formulation Joelle Sarmiento MD Work Phone: [facility] Payers Date Payer Category Payer Unknown [id number] 2023 Unknown [id number] 2022 Self-pay [id number] 1968 Unknown [id number] 2.16.84 0.1.649483.3.579.2.593 1968 Unknown [id number] 2.16.84 0.1.745782.3.579.2. 1968 Unknown [id number] 2.16.84 0.1.295425.3.579.2.59 1968 Unknown [id number] 2.16.84 0.1.693971.3.579.2.59 1968 Unknown [id number] 2.16.84 0.1.108341.3.579.2.593 1968 Unknown [id number] 2.16.84 0.1.047953.3.579.2. 1968 Unknown [id number] 2.16.84 0.1.697429.3.579.2.593 1968 Unknown [id number] 2.16.84 0.1.602043.3.579.2.593 1968 Unknown [id number] 2.16.84 0.1.233462.3.579.2.593 1968 Unknown [id number] 2.16.84 0.1.265792.3.579.2.593 1968 Unknown [id number] 2.16.84 0.1.878533.3.579.2.593 1968 Unknown [id number] 2.16.84 0.1.207639.3.579.2.593 1968 Unknown [id number] 2.16.84 0.1.619201.3.579.2.593 1968 Unknown [id number] 2.16.84 0.1.876318.3.579.2.593 1968 Unknown [id number] 2.16.84 0.1.952102.3.579.2.593 1968 Unknown [id number] 2.16. 840.1.540196.3.579.2.196 1968 Unknown [id number] 2.16. 840.1.670567.3.579.2.196 1968 Unknown [id number] 2.16. 840.1.654409.3.579.2.196 1959 Unknown [id number] Unknown [id number] Unknown [id number] 2.16.8 40.1.576280.3.579.2.531 Social History Date Type Detail Facility Start: 05-14-2020 End: 06-23-2021 Tobacco smoking status [facility] Smoker (finding) [facility] Start: 1970 Sex Assigned At Female F [facility] Start: 06-09-2024 End: 06-15-2024 History of tobacco use [facility] Tobacco smoking stat [facility] Tobacco smoking consumption unknown [facility] Start: 1970 Sex assigned at [facility] on file [facility] Start: 06-09-2024 [facility] History of tobacco use Cigarette Smoker [facility] Start: 06-09-2024 Tobacco use and exposure Smokeless tobacco non-user [facility] Start: 06-09-2024 Alcoholic beverage intake Ex-drinker (finding) [facility] Start: 06-09-2024 End: 06-15-2024 History of Social function [facility] Adult Depression Screening Assessment 3 [facility] Medical Equipment Procedure Code Equipment Code Equipment Origin al Text Equipment Identifier Dates Fusion, spine, lumbar, XLIF CANCELLOUS COARSE 7.5CC FDA Start: 05-22-2020 Fusion, spine, lumbar, XLIF Bone-screw internal spinal fixation system, non-sterile ()[id number] FDA Start: 05-22-2020 Fusion, spine, lumbar, XLIF Bone-screw internal spinal fixation system, non-sterile ()[id number] FDA Start: 05-22-2020 Fusion, spine, lumbar, XLIF Bone-screw internal spinal fixation system, non-sterile ()[id number] FDA Start: 05-22-2020 Fusion, spine, lumbar, XLIF CANCELLOUS COARSE 7.5CC FDA Start: 05-22-2020 Fusion, spine, lumbar, XLIF Bone-screw internal spinal fixation system, non-sterile ()[id number] FDA Start: 05-22-2020 Fusion, spine, lumbar, XLIF Bone-screw internal spinal fixation system, non-sterile ()[id number] FDA Start: 05-22-2020 Fusion, spine, lumbar, XLIF Polymeric spinal fusion cage, non-sterile ()[id number] FDA Start: 05-22-2020 Fusion, spine, lumbar, XLIF Dura mater graft, bovine ()[id number] FDA Start: 05-22-2020 Fusion, spine, lumbar, XLIF MAS REDUCTION FIXATION ADD LEV FDA Start: 05-22-2020 Fusion, spine, lumbar, XLIF XLIF 1 LEVEL MAS REDUCTION FDA Start: 05-22-2020 Fusion, spine, lumbar, XLIF Spinal fusion graft kit [id number] FDA Start: 05-22-2020 Fusion, spine, lumbar, XLIF Bone matrix implant, human-derived ()[id number] FDA Start: 05-22-2020 Fusion, spine, lumbar, XLIF Metallic spinal fusion cage, non-sterile ()[id number] FDA Start: 05-22-2020 Fusion, spine, lumbar, XLIF Bone-screw internal spinal fixation system, non-sterile ()[id number] FDA Start: 05-22-2020 Fusion, spine, lumbar, XLIF [...] Corbett RN June 23, 2024 11:12 AM [facility] 06-23-2024 Miscellaneous Notes Neuro SPINE CARE [...] Pt can schedule. documented in this encounter [facility] 06-22-2024 Telephone encounter Note Pt called asking for orders informed by on OV 06/16/24. Discussed with patient will order CT and EMG as well as standing xray Pls send MyC msg once orders are ready so that Pt can schedule. [facility] 06-16-2024 Note HNO ID: [id number] Author: JOELLE SARMIENTO MD Service: ? Author Type: Physician Type: Progress Notes Filed: 06/16/2024 17:55 Note Text: Rescheduled, no charge [facility] 06-16-2024 Note HNO ID: [id number] Author: JOELLE SARMIENTO MD Service: ? Author Type: Physician Type: Progress Notes Filed: 06/16/2024 09:36 Note Text: I have communicated my name and active licensure. The patient's identity and physical location were verified at the time of this visit. Either the patient or their legal tax representative has been informed of the risks [...] with more than 50% of the total tadm-zh-myir time of the visit in counseling / coordination of care. [facility] 06-16-2024 History of Presen t illness Narrative I have communicated my name and active licensure. The patient's identity and physical location were verified at the time of this visit. Either the patient or their legal tax representative has been informed of the risks [...] with more than 50% of the total axjq-gq-dlec time of the visit in counseling / coordination of care. documented in this encounter [facility] 03-10-2024 Note HNO ID: [id number] Author: KENAN GODOY APRN.[employer] Service: ? Author Type: Nurse Practitioner Type: [...] gabapentin, meloxicam, voltaren cream, heat, mdp x1 [place] - 3x/dy Studies (Reports unless indicated) Mri lumbar report Lumbarization S1 S/p :L4-S1 fusion L5/S1 mod b/l FS S1/2 paraspinal muscle mod to severe atrophy Disposition: Please schedule with dr sarmiento if patient would like soon can schedule with myself. Please instruct patient to bring copy of imaging and injection history for review. [facility] 03-10-2024 History of Presen t illness [...] gabapentin, meloxicam, voltaren cream, heat, mdp x1 [place] - 3x/dy Studies (Reports unless indicated) Mri [...] Health Provider or Pain Management Provider at [facility]? No If answer is YES [...] the facility where the MRI/CT/myelogram was completed: [place] [address] MRI/CT/myelogram viewable in Epic: No If not, please provide [phone] to fax in imaging reports for review. Also, please inform patient to hand carry imaging disc to appointment. XR (spine) within 12 months: Yes If YES, please ask for the name/address of the facility where the XR was completed: [place] [address] Dr. Freeman's patients: Have you had previous [...] therapy was completed [facility] [place] - [address] [place] [address] Have you tried any other kinds of non-surgical treatments in the last 12 months? (For example: NSAIDS, muscle relaxants, analgesics, oral steroids, Chiropractor, Acupuncture): gabapentin, meloxicam, voltaren cream, heat, mdp x1 4. Are you currently taking daily prescribed narcotic medications for your current symptoms (For example Oxycodone, Hydrocodone, Tramadol, Morphine, Other)? Yes [place] - 3x/dy 5. Have you had previous spinal surgery for this same symptoms? Yes If YES please ask for the name of facility/address of where the surgery was completed: [facility] cages Additional Comments [phone] documented in this encounter [facility] 03-06-2024 Note HNO ID: [id number] Author: ?, ?, ? Service: ? Author Type: ? Type: Progress Notes Filed: 03/10/2024 16:07 Note Text: Patient name: Kim Hill Are you being referred by a [facility] Spine Health Provider or Pain Management Provider at [facility]? No If answer is YES [...] the facility where the MRI/CT/myelogram was completed: [facility] [address] [place] [address] MRI/CT/myelogram viewable in Epic: No If not, please provide [phone] to fax in imaging reports for review. Also, please inform patient to hand carry imaging disc to appointment. XR (spine) within 12 months: Yes If YES,? please ask for the name/address of the facility where the XR was completed: [place] [address] Dr. Freeman's patients: Have you had previous [...] was completed [facility] [place] [address] Have you tried any other kinds of non-surgical treatments in the last 12 months? (For example: NSAIDS, muscle relaxants, analgesics, oral steroids, Chiropractor, Acupuncture): gabapentin, meloxicam, voltaren cream, heat, mdp x1 4. Are you currently taking daily prescribed narcotic medications for your current symptoms (For example Oxycodone, Hydrocodone, Tramadol, Morphine, Other)? Yes [place] - 3x/dy 5. Have you had previous spinal surgery for this same symptoms? Yes If YES? please ask for the name of facility/address of where the surgery was completed: [facility] - 2 cages Additional Comments [phone] [facility] 10-06-2022 Note CONSULTATION CONSULTATION DATE: 10/06/2022 [...] pill b.i.d. and to continue to use [place] 7.5 mg t.i.d. We did reduce the use at her last visit from 90 pills a month to 80 pills to last one month's time. She appears to be tolerating this transition quite well. I have asked her to continue with gabapentin 600 mg t.i.d. Her JOYCE on today's visit is 28. She reports the [place] does improve her quality of life, level of functioning and sleep pattern, and she denies any side effects. As part of providing excellent, safe, comprehensive care, the following was completed at our patient's visit: 1. A medication reconciliation and review to ensure accurate knowledge of current/active medications, including asking our patients to inform us about any fmde-mes-cwqvxdl medications or herbal remedies/nutritional supplements/alternative remedies. 2. [...] options with their primary care provider. [facility] 09-01-2022 Note CONSULTATION CONSULTATION DATE: [...] our patients to inform us about any gfdx-tds-nwgoxuf medications or herbal remedies/nutritional supplements/alternative remedies. 2. [...] options with their primary care provider. [facility] 08-17-2022 Evaluation note Encounter Date Diagnosis Assessment Notes Jul, Other chronic pain (ICD-10 - G89.29) Jul, Low back pain, unspecified (ICD-10 - M54.50) [employer] Other 02-16-2023 NoteCONSULTATION CONSULTATION DATE: 07/16/2022 HISTORY OF PRESENT ILLNESS: This is a 51-year-old female who returns to the clinic status post bilateral SI joint injection completed on 06/23/2022. The patient received 80% relief for one day and on day two felt worse than her normal baseline pain. Today, she rates her pain 8/10. Medications include gabapentin 600 mg t.i.d., [place] 7.5/325 b.i.d. and Mobic 15 mg daily. [...] her medications; Mobic 15 mg daily and [place] 7.5/325 b.i.d. She will return to the clinic in six weeks' time, in which we will, in addition to her PCPs office, review the MRI and form a plan of care at that time. Patient is in agreement to this plan.[facility] [id number] Note CONSULTATION CONSULTATION DATE: 05/29/2022 HISTORY OF [...] down. Medications include gabapentin 600 mg t.i.d., [place] 7.5/325 b.i.d. and diclofenac 50 mg daily. [...] care and will be followed up thereafter.[facility] [id number] NoteCONSULTATION CONSULTATION DATE: 05/14/2022 HISTORY OF PRESENT [...] as well as gabapentin 600 mg t.i.d., [place] 7.5/325 t.i.d. At her last appointment, she [...] Refills for gabapentin 600 mg t.i.d. and [place] 7.5/325 b.i.d. will be sent to her pharmacy. Patient agrees to move forward with the procedure. She will followed up in the clinic thereafter.[facility] [id number] NotePAIN MANAGEMENT CONSULTATION CONSULTATION DATE: 05/14/2022 CHIEF [...] with a sacroiliac joint injection under fluoroscopy.[facility] [id number] NoteCONSULTATION CONSULTATION DATE: 03/12/2022 ADDENDUM DIAGNOSIS: Lumbar spondylosis, lumbar degenerative disc disease, chronic lower back pain and a history of a lumbar fusion.[facility] [id number] Note CONSULTATION CONSULTATION DATE: 03/12/2022 This is [...] Current medications include gabapentin 600 mg t.i.d., [place] 7.5/325 b.i.d., diclofenac cream and ibuprofen. She [...] with her vitamins as well as her [place]. The dose of frequency will not be changed. We will have the patient return to the clinic in two months' time for re-evaluation. The patient is inquiring about an increase of her [place], possibly during the winter months. There will be no changes today.[facility] [id number] NoteCONSULTATION CONSULTATION DATE: 01/07/2022 This is a [...] Current medications include gabapentin 600 mg b.i.d., [place] 7.5/325 b.i.d., diclofenac topical, multivitamin regimen and ibuprofen p.r.n. She has tried diclofenac in the past but was unable to tolerate it due to stomach issues but low-dose ibuprofen she can tolerate. She is needing [place] and gabapentin refill today. REVIEW OF SYSTEMS, [...] subsequently move to the left. Refill for [place] 7.5/325 b.i.d. and gabapentin 600 mg b.i.d. will be sent to the pharmacy. The patient is encouraged to increase magnesium in her vitamin regimen as well as menthol heat rub, seated stretches that were demonstrated and heat application. The patient agrees with the plan of care and would like to move forward and she will follow-up in the clinic post procedure.[facility] CenterEvaluation noteNo assessment information availableOhio[facility] Work Phone: Evaluation noteNo InformationNortClarion Hospital [employer] Other evaluation note* Diagnosis Lumbar radiculopathy- Primary Thoracic or lumbosacral neuritis or radiculitis, unspecified documented in this encounter [facility]* Diagnosis Radiculopathy of lumbar region- Primary Thoracic or lumbosacral neuritis or radiculitis, unspecified Spinal stenosis of lumbar region without neurogenic claudication Spinal stenosis, lumbar region, without neurogenic claudication Right foot drop Other acquired deformity of ankle and foot documented in this encounter [facility] general Narrative - Reported* Type Description Date Medical History osteoarthritis Medical History rheumatoid arthritis Medical History carpal tunnel Medical History fibromyalgia Medical History hypertension Medical History Arthritis Medical History asthma Medical History obesity Medical History pneumonia Medical History anxiety Surgical History hysterectomy 01/2012 Surgical History back surgery Surgical History left middle finger surgery Hospitalization History see above Hospitalization History 4 child births [facility] [employer] Other reason for referral (narrative)* Diagnostic Procedure Only (Routine) - New Request Specialty Diagnoses / Procedures Referred By Claritza schumacher Referred To Contact XR IMAGING Diagnoses Radiculopathy of lumbar region Spinal stenosis of lumbar region without neurogenic claudication Procedures XR LUMBAR MOTION 4V AP/LAT/ FLEX/EXT RADEX SPINE LUMBOSACRAL MINIMUM 4 VIEWS Kenan Godoy APRN.[employer] [address] [place] [address] Xr Imaging [place] [address] Referral ID Status Reason Start Date Expiration Date Visits Requested Visits Authorized [id number] New Request Auto-Generat ed Referral 06/23/2024 07/23/2025 1 1 * Outpatient Procedure (Routine) - New Request Specialty Diagnoses / Procedures Referred By Contac t Referred To Contact [facility] Diagnoses Radiculopathy of lumbar region Spinal stenosis of lumbar region without neurogenic claudication Right foot drop Procedures EMG(NEURO/NI) NERVE CONDUCTION STUDIES 9-10 STUDIES Kenan Godoy APRN.[employer] T[employer] [address] [place] [address] Neurological [place] [address] [place] [address] Referral ID Status Reason Start Date Expiration Date Visits Requested Visits Authorized [id number] New Request Auto-Generat ed Referral 06/23/2024 06/23/2025 1 1 * MRI/CT (Routine) - New Request Specialty Diagnoses / Procedures Referred By Contac t Referred To Contact CT IMAGING Diagnoses Radiculopathy of lumbar region Spinal stenosis of lumbar region without neurogenic claudication Procedures CT LUMBAR SPINE WO IVCON CT LUMBAR SPINE W/O CONTRAST MATERIAL Kenan Godoy APRN.[employer] [address] [place] [address] Ct Imaging [place] [address] Referral ID Status Reason Start Date Expiration Date Visits Requested Visits Authorized [id number] New Request Auto-Generat ed Referral 06/23/2024 07/23/2025 1 1 [facility] Advance Directives Advance Directive Response Recorded [...] Inactive Member Role Status Dates Roberto Roht DO Primary Care Provider Active Paresh Tian MD Attending Provider Active Team Status: Inactive Member Role Status Dates Roberto Roth DO Primary Care Provider Active Gina Guerrero MD Attending Provider Active Agriculture Research Director Relationship Specialty Start Date End Date Aby Mark CNP [address] [place] [id number] Referring Family Medicine 03/02/24 Agriculture Research Director Relationship Specialty Start Date End Date Aby Mark CNP [address] [place] [id number] Referring Family Medicine 03/02/24 Agriculture Research Director Relationship Specialty Start Date End Date Aby Mark CNP [address] [place] [id number] Referring Family Medicine 03/02/24 Goals (unrecognized section and content) Goals may be documented in a n alternate sectionGoals may be documented in an alternate sectionGoals may be documented in an alternate sectionGoals may be documented in an alternate sectionNo InformationNo Information INFORMATION SOURCE (unrecogn ized section and content) DATE CREATED AUTHOR 08/01/2022 [facility] dical Specialist DATE CREATED AUTHOR AUTHOR'S ORGANIZ ATION 11/06/2022 [facility] DATE CREATED AUTHOR AUTHOR'S ORGANIZ ATION 11/24/2023 [facility] DATE CREATED AUTHOR AUTHOR'S ORGANIZ ATION 04/30/[address] [facility] DATE CREATED AUTHOR AUTHOR'S TERRY LOYD 06/19/2024 [facility] REASON FOR VISIT (unrecogniz ed section and content) Reason Comments Established Patient Reason Comments Orders Source Comments (unrecognize d section and content) In the event this informatio n is protected by the Federal Confidentiality of Alcohol and Drug Abuse Patient Records regulations: The Federal rules restrict any use of the information to criminally investigate or prosecute any alcohol or drug abuse patient.[facility] the event this information is protected by the Federal Confidentiality of Alcohol and Drug Abuse Patient Records regulations: The Federal rules restrict any use of the information to criminally investigate or prosecute any alcohol or drug abuse patient.[facility] the event this information is protected by the Federal Confidentiality of Alcohol and Drug Abuse Patient Records regulations: The Federal rules restrict any use of the information to criminally investigate or prosecute any alcohol or drug abuse patient.[facility] FOR RECORDS PERTAINING TO PATIENTS WHO [...] BE BASED ON THE PRIMARY CLINICAL RECORDS. [facility]. provides no warranty or guarantee of the accuracy or completeness of information in this document.
[2024-08-28 10:20] VITALS: BP 148/89; PULSE 82; TEMP 36.9; O2SAT 95
[2024-08-28 10:29] VITALS: BP 172/82; PULSE 82; O2SAT 96
[2024-08-28 10:30] VITALS: BP 166/80; PULSE 81; O2SAT 97
[2024-08-28] MEDS: IOHEXOL 240 MG/ML - 10 ML VIAL 24 MG INJ (10:32)
[2024-08-28] MEDS: BUPIVACAINE HCL 0.25% PF 25 MG/10 ML VIAL 4 ML INJ (10:32)
[2024-08-28] MEDS: METHYLPREDNISOLONE ACETATE 40 MG/ML VIAL 80 MG INJ (10:32)
[2024-08-28] MEDS: LIDOCAINE HCL 2% 400 MG/20 ML MDV INJ (10:32)
--- NOTE | 2024-08-28 10:32 | W.PM.PROCNOT ---
Date of procedure: 08/28/24 Pre-op diagnosis: Pain due to bilateral sacroiliitis Post-op diagnosis: same as pre-op Procedure: Procedure: Bilateral sacroiliac joint injection Medications: Bupivacaine 0.25% 3cc, depomedrol 40mg x2 After informed consent was obtained, the patient was brought to the medical procedure unit and placed in the prone position, when a timeout was completed verifying correct patient, procedure, site, positioning, implant, and/or special equipment.? The skin overlying the area was prepped and draped in standard sterile fashion using alcohol.? A 25-gauge needle was inserted towards the left sacroiliac joint under direct fluoroscopic imaging.? Needle tip was advanced until the joint was encountered.? We instilled a total of 2 mL of solution.? The same procedure was then completed on the right side.? Postoperatively needles were removed.? The patient tolerated the procedure well without complication.? The patient reported reduction in pain symptoms postoperatively. Anesthesia: Local Surgeon: Aaron Mosqueda Pathology: none sent Condition: stable Disposition: no change
== END 2024-08-28 10:37 | disposition home or self-care (01) ==
PROVIDERS: Visit Provider Anesthesiology
DX: M46.1 Sacroiliitis, not elsewhere classified (principal); M53.3 Sacrococcygeal disorders, not elsewhere classified
CPT/HCPCS: 27096; J0665; J1010; Q9966

== ENCOUNTER 2024-09-06 15:10 | Outpatient (OUT) | payer BC, SELFPAY ==
--- NOTE | 2024-09-06 15:19 | PM.CN ---
Consult Note: HPI Data of Consult Patient: known to practice within the last 3 years Requesting Physician: Day Fleming NP Primary Care Provider: Non-Staff Physician, MD Consult Narrative Reason for consult: f/u Narrative: Kim Hill a pleasant 53 year old female presents to office for evaluation of chronic low back and right buttock pain, post lumbar fusion L4-5 L5-S1. Patient rating pain today 8/10 increasing to 10/10 with standing and activity. Patient finds mild to moderate benefit with norco 7.5-325mg TID PRN, gabapentin 600mg TID, baclofen 10mg BID, mobic 15mg daily without side effects. however last fill of opioid pain medication was sent in as oxycodone-acetaminophen 7.5mg BID to TID PRN by mistake, pt has noticed hot flashes and nausea with this medication. Pt has a hx of multilevel lumbar fusion 3 years ago but continues to have moderate to severe pain. Following with [facility] for consideration of additional surgical intervention. recently underwent bilateral SIJ injection with >80% improvement ongoing. cc:: CC: Day Fleming NP Review of Systems ROS Status of ROS 10 or more systems reviewed and unremarkable except as noted in history and below Musculoskeletal Reports: back pain and joint pain PFSH PFSH Medical History Asthma exacerbation ?J45.901 - Unspecified asthma with (acute) exacerbation (ICD-10) Influenza ?J11.1 - Influenza due to unidentified influenza virus with other respiratory manifestations (ICD-10) Pneumonia ?J18.9 - Pneumonia, unspecified organism (ICD-10) Obesity ?E66.9 - Obesity, unspecified (ICD-10) Osteoarthritis ?M19.90 - Unspecified osteoarthritis, unspecified site (ICD-10) Rheumatoid arthritis ?M06.9 - Rheumatoid arthritis, unspecified (ICD-10) Anxiety ?F41.9 - Anxiety disorder, unspecified (ICD-10) Acid reflux ?K21.9 - Gastro-esophageal reflux disease without esophagitis (ICD-10) Smoker ?F17.200 - Nicotine dependence, unspecified, uncomplicated (ICD-10) Asthma ?J45.909 - Unspecified asthma, uncomplicated (ICD-10) Heart murmur ?R01.1 - Cardiac murmur, unspecified (ICD-10) HTN (hypertension) ?I10 - Essential (primary) hypertension (ICD-10) Surgical History History of lymph node excision ?Z98.890 - Other specified postprocedural states (ICD-10) History of hysterectomy ?Z90.710 - Acquired absence of both cervix and uterus (ICD-10) History of lumbar fusion ?Z98.1 - Arthrodesis status (ICD-10) Family History Aunt Family history of cancer Mother Family history of diabetes mellitus Family history of hypertension Father Family history of diabetes mellitus Family history of hypertension Social History Within the past year, how often did you have a drink containing alcohol: never Score interpretation: A score less than 3 is consistent with normal alcohol consumption. 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 Highest level of school completed/degree received: GED or equivalent Are you now , , , , never or living with a partner: In a typical week, how many times do you talk on the telephone with family, friends, or neighbors: 3 or more times per week How often do you get together with friends or relatives: 3 or more times per week Little interest or pleasure in doing things: not at all Feeling down, depressed, or hopeless: not at all Feel stressed/tense/nervous/anxious/difficulty sleeping: not at all Do you think of yourself as: straight/heterosexual Gender Identity: female Meds Home Medications and Allergies Home Medications ?Medication ?Instructions ?Recorded ?Confirmed ?Type VITAMIN C 250 mg PO DAILY 11/12/22 08/28/24 History cholecalciferol (vit D3) 1,000 1 tab PO DAILY 11/12/22 08/28/24 History unit-vitamin K2 (MK4) 100 mcg tablet (K2 Plus D3) lisinopril 10 mg tablet 10 mg PO DAILY 11/12/22 08/28/24 History albuterol 90 mcg-budesonide 80 2 inh inhalation BID sob 04/27/24 08/28/24 History mcg/actuation HFA aerosol inhaler (Airsupra) ascorbic acid (vitamin C) 250 mg 250 mg PO DAILY 04/27/24 08/28/24 History tablet (Vitamin C) azithromycin 500 mg tablet 500 mg PO DAILY 04/27/24 08/28/24 History (Zithromax) montelukast 10 mg tablet 10 mg PO DAILY 04/27/24 08/28/24 History (Singulair) pantoprazole 40 mg tablet,delayed 40 mg PO DAILY 04/27/24 08/28/24 History release (Protonix) zinc 50 mg capsule 50 mg PO DAILY 04/27/24 08/28/24 History hydrocodone 7.5 mg-acetaminophen 1 tab PO TID PRN pain #90 tabs 05/11/24 08/28/24 Rx 325 mg tablet baclofen 10 mg tablet 10 mg PO TID PRN muscle spasm #90 07/11/24 08/28/24 Rx tabs gabapentin 600 mg tablet 600 mg PO TID #90 tabs 07/11/24 08/28/24 Rx meloxicam 15 mg tablet 15 mg PO DAILY #30 tabs 07/11/24 08/28/24 Rx oxycodone-acetaminophen 7.5 mg-325 See Rx Instructions .Route 08/10/24 Rx mg tablet (Percocet) .COMPLEX PRN pain #70 tabs Allergies Allergy/AdvReac Type Severity Reaction Status Date / Time amoxicillin (From Augmentin) Allergy Unknown Rash Verified 08/28/24 10:11 clavulanic acid (From Allergy Unknown Rash Verified 08/28/24 10:11 Augmentin) Penicillins Allergy Unknown RASH Verified 08/28/24 10:11 Exam Constitutional Documenting provider has reviewed patient's vital signs: yes Common normals: no apparent distress, oriented x3, healthy appearing, alert and well nourished General appearance: cooperative [facility] Common normals: normocephalic, hearing grossly normal bilaterally and moist oral mucous membranes Head and scalp: normocephalic Eye Common normals: PERRL Pupil: PERRL Neck & C-Spine Common normals: full ROM General: normal visual inspection Cervical spine: pain with cervical ROM and paracervical muscle tenderness Other: intermittent radiculopathy to bilateral hands right greater than left Chest Common normals: inspection of chest normal Respiratory Common normals: normal respiratory effort, no retractions and no use of accessory muscles Back & Pelvis Lumbar spine/lower back: ROM limited, pain with ROM and straight leg raise negative bilaterally; straight leg raise negative right Sacroiliac joints: SI joints normal Extremity Common normals: full ROM Other: nonpitting edema to RLE utilizing right ankle brace for instability and foot drop Neuro Common normals: oriented x3, CN's II-XII intact bilaterally, moves all extremities, no focal motor deficits, no sensory deficits noted and deep tendon reflexes 2+ bilaterally Sensorium/orientation: alert Gait (neuro): antalgic Motor exam: strength 5/5 throughout and no movement abnormalities noted Psych Common normals: mental status grossly normal, thought process normal, cooperative, affect normal, speech normal and activity/motor behavior normal Speech: normal speech Thought process: normal thought process Results Additional Findings Additional findings: If on a controlled substance or opioids, I have checked an [place]AR[place] report on this patient and there are no aberrancies noted in the prescribing history.??If on a controlled substance or opioid a drug screen was completed and reviewed within the last year, and if there has not been a drug screen completed we ordered one today to monitor higher risk, state monitored pain medication use. As part of providing excellent, safe, comprehensive care, the following was completed at our patient's visit: 1. A medication reconciliation and review to ensure accurate knowledge of current/active medications, including asking our patients to inform us about any [id number] medications or herbal remedies/nutritional supplements/alternative remedies. 2. A review to specifically ensure our patients have had annual screening for screening for depression, screening for tobacco use, and screening for unhealthy alcohol use. For concerning screenings had a discussion with the patient, provided patient education, and recommended follow-up with primary care provider when appropriate. If patient noted with a risk of falling, they received education on strength, gait, and balance training to prevent future risk of falling. Portions of this note may have been carried over from the previous visit and updated as appropriate. Please note this office utilizes paper charting in addition to the electronic medical record. A list of current medications, vitals, and PMH is available there as the clinical staff outside of myself do not have access to [employer] charting during the clinic day operations. As part of providing quality comprehensive care the current medications, vitals, and PMH were reviewed in the paper chart. Assessment and Plan Assessment and Plan (1) Sacroiliac joint dysfunction: Assessment and Plan: 08/28/24 bilateral SIJ injection >50% improvement ongoing (2) Lumbar stenosis with neurogenic claudication: (3) Failed back syndrome: (4) Lumbar radiculopathy: (5) Lumbar spondylosis: (6) Chronic prescription opiate use: Assessment and Plan: I feel these medications are improving the patient's quality of life and allow them to tolerate activities of daily living as well as participate in recreational activity.? The patient does not report intolerable side effects. The patient is NOT opioid naive and non-pharmacologic and non-opioid treatment has failed to significantly relieve the patient's pain and improve functionality. The patient has a diagnosis that is related to a somatic or visceral pain etiology. ? ?? I reviewed with the patient the potential risks and side effects with the use of? opioid medications including but not limited to respiratory depression,? sedation, and even . Within the last 12 months I have verified the patient has access to naloxone should? these effects occur. The patient was advised to let? their family know they had Naloxone in case they would need to administer? the medication. I advised the patient to avoid the use of any other? sedation substances including alcohol, THC, and benzodiazepines while? taking opioid medications due to the risk of compounding side effects and? detrimental outcomes. within the last 12 months I have reviewed the LABOR RELATIONS ANALYST, pain treatment agreement and urine drug screen.? ?? A drug screen was completed within the last year, and no aberrancies were noted regarding their use of controlled substances. The patient understands they are subject to the terms and conditions of the pain contract that they have signed. ? ?? I have checked an OARRS report on this patient today and there are no aberrancies noted in the prescribing history.? Plan dc percocet, restart hydrocodone-acetaminophen 7.5-325mg BID to TID PRN moderate to severe pain 70 tabs to last 30 days continue current medications, risks vs benefits reviewed continue f/u with NS continue HEP as tolerated f/u 3 months for evaluation
== END 2024-09-06 15:11 | disposition home or self-care (01) ==
LOC: PM 15:11
PROVIDERS: Visit Provider Nurse Practitioner
DX: M53.3 Sacrococcygeal disorders, not elsewhere classified (principal); M48.062 Spinal stenosis, lumbar region with neurogenic claudication; M96.1 Postlaminectomy syndrome, not elsewhere classified; M54.16 Radiculopathy, lumbar region; M47.816 Spondylosis without myelopathy or radiculopathy, lumbar region; Z79.891 Long term (current) use of opiate analgesic
CPT/HCPCS: G0463

== ENCOUNTER 2024-09-21 15:10 | Outpatient (OUT) | payer BC, SELFPAY ==
[2024-09-21 15:38] LABS: Erythrocyte Sedimentation Rate 51 mm/hr (<=30)
[2024-09-21 16:27] LABS: Estimated Average Glucose 120 mg/dL; Glycohemoglobin A1C 5.8 % (4.5-6.2)
== END 2024-09-21 15:11 | disposition home or self-care (01) ==
LOC: LAB 15:11
DX: R70.0 Elevated erythrocyte sedimentation rate (principal); R73.03 Prediabetes
CPT/HCPCS: 36415; 83036; 85652

== ENCOUNTER 2024-09-29 15:11 | Outpatient (OUT) | payer BC, SELFPAY ==
--- NOTE | 2024-09-29 | CT_ITS ---
The [address] [address] Patient Name: AKASH LIU MRN: [id number] date: 1970 Sex: F Assigned Patient Location: CT Current Patient Location: CT Accession/Order Number: [id number] Exam Date: 09/29/2024 15:28 Report Date: 09/29/2024 15:30 At the request of: JOSEPH MARK Procedure: CT sinus wo con CT PARANASAL SINUSES WITHOUT CONTRAST: CLINICAL HISTORY: J32.9 Chronic sinusitis COMPARISON: None TECHNIQUE: Contiguous axial unenhanced images were obtained through the paranasal sinuses. Coronal reconstructions were also performed. This CT exam was performed using one or more following dose reduction techniques: Automated exposure control, adjustment of the mA and/or kV according to patient size, or use of iterative reconstruction technique. FINDINGS: Frontal sinuses are clear. Ethmoid and sphenoid sinuses demonstrate minimal mucoperiosteal thickening. There is near complete opacification of the right maxillary sinus with occlusion of the ostiomeatal complex. Left maxillary sinus is clear. No bony destruction. Nasal septum is deviated towards the left. No soft tissue swelling. Intraorbital contents appear unremarkable. Nasopharynx appears unremarkable. CT/CT sinus wo con IMPRESSION: NEW COMPLETE OPACIFICATION OF THE RIGHT MAXILLARY SINUS WITH OCCLUSION OF THE OSTIOMEATAL COMPLEX. MILD ETHMOID AND SPHENOID SINUS DISEASE. Impression dictated by: Gary Gifford Jr., D.O. 09/29/2024 3:30 PM Dictation Location: [place] [address] Electronically authenticated by: [id number] Date: 09/29/2024 15:30
== END 2024-09-29 15:12 | disposition home or self-care (01) ==
LOC: CT 15:11
PROVIDERS: Visit Provider Nurse Practitioner Family
DX: J32.9 Chronic sinusitis, unspecified (principal); I51.7 Cardiomegaly; J32.0 Chronic maxillary sinusitis
CPT/HCPCS: 70486

== ENCOUNTER 2024-10-11 15:07 | Outpatient (OUT) | payer BC, SELFPAY ==
--- NOTE | 2024-10-11 15:33 | PM.CN ---
Consult Note: HPI Data of Consult Patient: known to practice within the last 3 years Requesting Physician: Day Fleming NP Primary Care Provider: Non-Staff Physician, MD Consult Narrative Reason for consult: f/u Narrative: Kim Hill a pleasant 54 year old female presents to office for evaluation of chronic low back and right buttock pain, post lumbar fusion L4-5 L5-S1. Patient rating pain today 7/10 increasing to 10/10 with standing and activity. Patient finds mild to moderate benefit with norco 7.5-325mg TID PRN, gabapentin 600mg TID, baclofen 10mg BID, mobic 15mg daily without side effects. Pt has a hx of multilevel lumbar fusion 3 years ago but continues to have moderate to severe pain. Following with [facility] for consideration of additional surgical intervention vs scs trial. pt noticing increased right SIJ pain, last injection was providing significant relief until 1-2 weeks ago per pt. cc:: CC: Day Fleming NP Review of Systems ROS Status of ROS 10 or more systems reviewed and unremarkable except as noted in history and below Musculoskeletal Reports: back pain and joint pain PFSH PFSH Medical History Asthma exacerbation ?J45.901 - Unspecified asthma with (acute) exacerbation (ICD-10) Influenza ?J11.1 - Influenza due to unidentified influenza virus with other respiratory manifestations (ICD-10) Pneumonia ?J18.9 - Pneumonia, unspecified organism (ICD-10) Obesity ?E66.9 - Obesity, unspecified (ICD-10) Osteoarthritis ?M19.90 - Unspecified osteoarthritis, unspecified site (ICD-10) Rheumatoid arthritis ?M06.9 - Rheumatoid arthritis, unspecified (ICD-10) Anxiety ?F41.9 - Anxiety disorder, unspecified (ICD-10) Acid reflux ?K21.9 - Gastro-esophageal reflux disease without esophagitis (ICD-10) Smoker ?F17.200 - Nicotine dependence, unspecified, uncomplicated (ICD-10) Asthma ?J45.909 - Unspecified asthma, uncomplicated (ICD-10) Heart murmur ?R01.1 - Cardiac murmur, unspecified (ICD-10) HTN (hypertension) ?I10 - Essential (primary) hypertension (ICD-10) Surgical History History of lymph node excision ?Z98.890 - Other specified postprocedural states (ICD-10) History of hysterectomy ?Z90.710 - Acquired absence of both cervix and uterus (ICD-10) History of lumbar fusion ?Z98.1 - Arthrodesis status (ICD-10) Family History Aunt Family history of cancer Mother Family history of diabetes mellitus Family history of hypertension Father Family history of diabetes mellitus Family history of hypertension Social History Within the past year, how often did you have a drink containing alcohol: never Score interpretation: A score less than 3 is consistent with normal alcohol consumption. 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 Highest level of school completed/degree received: GED or equivalent Are you now , , , , never or living with a partner: In a typical week, how many times do you talk on the telephone with family, friends, or neighbors: 3 or more times per week How often do you get together with friends or relatives: 3 or more times per week Little interest or pleasure in doing things: not at all Feeling down, depressed, or hopeless: not at all Feel stressed/tense/nervous/anxious/difficulty sleeping: not at all Do you think of yourself as: straight/heterosexual Gender Identity: female Meds Home Medications and Allergies Home Medications ?Medication ?Instructions ?Recorded ?Confirmed ?Type VITAMIN C 250 mg PO DAILY 11/12/22 08/28/24 History cholecalciferol (vit D3) 1,000 1 tab PO DAILY 11/12/22 08/28/24 History unit-vitamin K2 (MK4) 100 mcg tablet (K2 Plus D3) lisinopril 10 mg tablet 10 mg PO DAILY 11/12/22 08/28/24 History albuterol 90 mcg-budesonide 80 2 inh inhalation BID sob 04/27/24 08/28/24 History mcg/actuation HFA aerosol inhaler (Airsupra) ascorbic acid (vitamin C) 250 mg 250 mg PO DAILY 04/27/24 08/28/24 History tablet (Vitamin C) azithromycin 500 mg tablet 500 mg PO DAILY 04/27/24 08/28/24 History (Zithromax) montelukast 10 mg tablet 10 mg PO DAILY 04/27/24 08/28/24 History (Singulair) pantoprazole 40 mg tablet,delayed 40 mg PO DAILY 04/27/24 08/28/24 History release (Protonix) zinc 50 mg capsule 50 mg PO DAILY 04/27/24 08/28/24 History hydrocodone 7.5 mg-acetaminophen 1 tab PO TID PRN pain #90 tabs 05/11/24 08/28/24 Rx 325 mg tablet baclofen 10 mg tablet 10 mg PO TID PRN muscle spasm #90 07/11/24 08/28/24 Rx tabs gabapentin 600 mg tablet 600 mg PO TID #90 tabs 07/11/24 08/28/24 Rx meloxicam 15 mg tablet 15 mg PO DAILY #30 tabs 07/11/24 08/28/24 Rx oxycodone-acetaminophen 7.5 mg-325 See Rx Instructions .Route 08/10/24 Rx mg tablet (Percocet) .COMPLEX PRN pain #70 tabs hydrocodone 7.5 mg-acetaminophen See Rx Instructions .Route 09/06/24 Rx 325 mg tablet .COMPLEX PRN pain #70 tabs hydrocodone 7.5 mg-acetaminophen 1 tab PO TID PRN pain #70 tabs 10/06/24 Rx 325 mg tablet Allergies Allergy/AdvReac Type Severity Reaction Status Date / Time amoxicillin (From Augmentin) Allergy Unknown Rash Verified 08/28/24 10:11 clavulanic acid (From Allergy Unknown Rash Verified 08/28/24 10:11 Augmentin) Penicillins Allergy Unknown RASH Verified 08/28/24 10:11 Exam Constitutional Documenting provider has reviewed patient's vital signs: yes Common normals: no apparent distress, oriented x3, healthy appearing, alert and well nourished General appearance: cooperative HENMT Common normals: normocephalic, hearing grossly normal bilaterally and moist oral mucous membranes Head and scalp: normocephalic Eye Common normals: PERRL Pupil: PERRL Neck & C-Spine Common normals: full ROM General: normal visual inspection Cervical spine: pain with cervical ROM and paracervical muscle tenderness Other: intermittent radiculopathy to bilateral hands right greater than left Chest Common normals: inspection of chest normal Respiratory Common normals: normal respiratory effort, no retractions and no use of accessory muscles Back & Pelvis Lumbar spine/lower back: ROM limited, pain with ROM and straight leg raise negative bilaterally; straight leg raise negative right Sacroiliac joints: SI joint(s) abnormal Other: right sij positive beto(patricks), gaenslens, thigh thrust, compression test Extremity Common normals: full ROM Other: nonpitting edema to RLE utilizing right ankle brace for instability and foot drop Neuro Common normals: oriented x3, CN's II-XII intact bilaterally, moves all extremities, no focal motor deficits, no sensory deficits noted and deep tendon reflexes 2+ bilaterally Sensorium/orientation: alert Gait (neuro): antalgic Motor exam: strength 5/5 throughout and no movement abnormalities noted Psych Common normals: mental status grossly normal, thought process normal, cooperative, affect normal, speech normal and activity/motor behavior normal Speech: normal speech Thought process: normal thought process Results Additional Findings Additional findings: If on a controlled substance or opioids, I have checked an [place]AR[place] report on this patient and there are no aberrancies noted in the prescribing history.??If on a controlled substance or opioid a drug screen was completed and reviewed within the last year, and if there has not been a drug screen completed we ordered one today to monitor higher risk, state monitored pain medication use. As part of providing excellent, safe, comprehensive care, the following was completed at our patient's visit: 1. A medication reconciliation and review to ensure accurate knowledge of current/active medications, including asking our patients to inform us about any [id number] medications or herbal remedies/nutritional supplements/alternative remedies. 2. A review to specifically ensure our patients have had annual screening for screening for depression, screening for tobacco use, and screening for unhealthy alcohol use. For concerning screenings had a discussion with the patient, provided patient education, and recommended follow-up with primary care provider when appropriate. If patient noted with a risk of falling, they received education on strength, gait, and balance training to prevent future risk of falling. Portions of this note may have been carried over from the previous visit and updated as appropriate. Please note this office utilizes paper charting in addition to the electronic medical record. A list of current medications, vitals, and PMH is available there as the clinical staff outside of myself do not have access to [facility]album charting during the clinic day operations. As part of providing quality comprehensive care the current medications, vitals, and PMH were reviewed in the paper chart. Assessment and Plan Assessment and Plan (1) Sacroiliitis: (2) Sacroiliac joint dysfunction: (3) Lumbar stenosis with neurogenic claudication: (4) Failed back syndrome: (5) Lumbar radiculopathy: (6) Lumbar spondylosis: (7) Chronic prescription opiate use: Assessment and Plan: I feel these medications are improving the patient's quality of life and allow them to tolerate activities of daily living as well as participate in recreational activity.? The patient does not report intolerable side effects. The patient is NOT opioid naive and non-pharmacologic and non-opioid treatment has failed to significantly relieve the patient's pain and improve functionality. The patient has a diagnosis that is related to a somatic or visceral pain etiology. ? ?? I reviewed with the patient the potential risks and side effects with the use of? opioid medications including but not limited to respiratory depression,? sedation, and even . Within the last 12 months I have verified the patient has access to naloxone should? these effects occur. The patient was advised to let? their family know they had Naloxone in case they would need to administer? the medication. I advised the patient to avoid the use of any other? sedation substances including alcohol, THC, and benzodiazepines while? taking opioid medications due to the risk of compounding side effects and? detrimental outcomes. within the last 12 months I have reviewed the GENERATOR WORKER, pain treatment agreement and urine drug screen.? ?? A drug screen was completed within the last year, and no aberrancies were noted regarding their use of controlled substances. The patient understands they are subject to the terms and conditions of the pain contract that they have signed. ? ?? I have checked an OARRS report on this patient today and there are no aberrancies noted in the prescribing history.? Plan right sij injection under fluoroscopy with steroid rotation to kenalog as pt previously had >50% improvement in pain and functional ability for 3 months, most recent SIJ injection contained depomedrol and she is not having >50% improvement at this time continue hydrocodone-acetaminophen 7.5-325mg BID to TID PRN moderate to severe pain 70 tabs to last 30 days continue current medications, risks vs benefits reviewed continue f/u with NS continue HEP as tolerated f/u 2 weeks after injection
== END 2024-10-11 15:08 | disposition home or self-care (01) ==
LOC: PM 15:08
PROVIDERS: Visit Provider Nurse Practitioner
DX: M46.1 Sacroiliitis, not elsewhere classified (principal); M53.3 Sacrococcygeal disorders, not elsewhere classified; M48.062 Spinal stenosis, lumbar region with neurogenic claudication; M96.1 Postlaminectomy syndrome, not elsewhere classified; M54.16 Radiculopathy, lumbar region; M47.816 Spondylosis without myelopathy or radiculopathy, lumbar region; Z79.891 Long term (current) use of opiate analgesic
CPT/HCPCS: G0463

== ENCOUNTER 2024-11-22 14:14 | Outpatient (OUT) | payer BC, SELFPAY ==
--- NOTE | 2024-11-22 14:15 | CA_ITS ---
Patient Name: AKASH LIU MR#: [id number] : 1970 Exam Date: 11/22/2024 Ordering Doctor: JOSEPH MARK ECHOCARDIOGRAM REPORT PROCEDURE: CA ECHO DOPPLER COMPLETE INDICATIONS: Cardiomegaly, hypertension, smoker COMPARISON: None. DESCRIPTION: COMPLETE ECHOCARDIOGRAM Real-time transthoracic echocardiography with 2D, M-mode, spectral and color flow Doppler performed. QUALITY: Technical quality was good. LEFT VENTRICLE: Normal chamber size. Normal left ventricular wall thickness. Normal systolic function. Estimated left ventricular ejection fraction is 55%. LV EF: Normal left ventricular ejection fraction, (>55%). DIASTOLIC: Diastolic function is indeterminate. ATRIAL SEPTUM: LEFT ATRIUM: Normal chamber size. RIGHT ATRIUM: Normal chamber size. RIGHT VENTRICLE: Normal chamber size. Normal right ventricular systolic function. TRICUSPID VALVE: Normal mobility and thickness. No stenosis with trivial regurgitation. Doppler studies reveal mildly (35-45) elevated right sided pressures. RVSP 36 mmHg MITRAL VALVE: Normal mobility and thickness. No evidence of mitral valve stenosis. There is no mitral annular calcification. Trivial mitral regurgitation. AORTIC VALVE: Normal trileaflet appearance. No visible sclerosis. Normal leaflet mobility. No evidence of aortic valve stenosis. No aortic regurgitation. AORTIC ROOT: Normal diameter and appearance, measuring 2.8 cm. PULMONIC VALVE: Normal thickness and mobility. No stenosis. No regurgitation. PERICARDIUM: No evidence of pericardial effusion. IVC: Collapses with inspiration. IVC is normal in size. PLEURA: CONCLUSION: 1. Normal ventricular size and systolic function. Estimated LVEF is 55%. 2. No significant valvular dysfunction. 3. Mildly elevated right-sided pressures. Adult Echocardiography Procedure Report Left Ventricle LVEDD (3.7 - 5.6 cm): 4.49 cm LVESD (2.2 - 4.0 cm): 3.13 cm LVIVS thickness (0.6 - 1.2 cm): 0.82 cm LVPW thickness (0.5 - 1.0 cm): 0.80 cm e': 0.09 m/s E - e': 8.73 LVOT Max Gradient: 3.41 mm[Hg] LVOT Area (cm2): 0.92 m/s Peak Velocity (LVOT): 0.92 m/s LVOT Diameter 2.17 cm Left Ventricular Ejection Fraction: 55 % Left Atrium LA Volume Index (2D A2C): 35.00 ml/m2 Left Atrium Systolic Dimension: 3.04 cm Mitral Valve MV E to A Ratio: 0.90 Mitral Valve A-Wave Peak Velocity: 0.89 m/s Mitral Valve E-Wave Peak Velocity: 0.80 m/s Right Ventricle Aorta AO Root Diam: 2.84 cm Aortic Valve AoV Area (Peak Corbin): 2.55 cm2, 2.55 cm2 Peak Velocity(Antegrade Flow): 1.33 m/s Peak Gradient(Antegrade Flow): 7.09 mm[Hg] Tricuspid Valve Peak Velocity (Regurgitant Flow): 2.87 m/s Pulmonic Valve Peak Gradient: 3.55 mm[Hg], 4.59 mm[Hg] Right Atrium Right Atrium Systolic Pressure: 51.15 ml, 51.15 ml Dictated by: Ollie Germain M.D. on 11/22/2024 at 19:48 Approved by: Ollie Germain M.D. on 11/22/2024 at 19:51
--- OUTSIDE RECORDS SUMMARY | 2024-11-22 14:19 | XMS_ITS | Clinical Summary ---
Author Organization [facility] Address [address] [place] [address] Care Team Providers Care Business Banking Manager Name Role Phone Tiffanie Yumina PINA - TELEPHONE OPERATORS SUPERVISOR Primary Care Pro vider Allergies Active Allergy Reactions Criticality Noted Date Comments Amoxicillin-Pot Clavulanate Diarrhea 12/17/19 24 Clavulanic Acid Itching 02/14/2021 Penicillins Itching 02/14/2021 Medications pantoprazole (PROTONIX) 40 MG tablet Take 1 tablet by mouth daily 4 Active lisinopril (PRINIVIL;ZESTR IL) 10 MG tablet Take 1 tablet by mouth daily Active HYDROcodone-sg taminophen (NORCO) 7.5-325 MG per tablet TAKE 1 TAB ORALLY THREE TIMES A DAY NEEDED FOR PAIN MUST LAST 30 DAYS 4 Active meloxicam (MOBIC) 15 MG tablet Take 1 tablet by mouth daily 4 Active gabapentin (NEURONTIN) 300 MG capsule Three times daily 1 Active montelukast (SINGULAIR) 10 MG tablet Take 1 tablet by mouth every evening 4 Active TRELEGY ELLIPTA 200-62.5-25 MCG/ACT AEPB inhaler INHALE 1 PUFF BY INHALATION ROUTE ONCE DAILY AT THE SAME TIME EACH DAY 4 Active albuterol sulfate HFA (PROVENTIL;VENT BRENDA;PROAIR) 108 (90 Base) MCG/ACT inhaler Q3H 1 Active diclofenac (VOLTAREN) 0.1 % ophthalmic solution 1 drop 4 times daily Active Social History Tobacco Use Types Packs/Day Years Used Date Smoking Tobacco: Never Smokeless Tobacco: Never Tobacco Cessation:Counseling Given: Not Answered Alcohol Use Standard Drinks/Week Comments Yes 0 (1 standard drink = 0.6 oz pur e alcohol) occasional Comments Unknown Sex and Gender Information Value Date Recorded Sex Assigned at Not on file Legal Sex Female 2:48 PM EST Gender Identity Not on file Sexual Orientation Not on file Last Filed Vital Signs Vital Sign Reading Time Taken Comments Blood Pressure 139/80 12/17/2023 9:39 AM EDT Pulse 81 12/17/2023 9:39 AM EDT Temperature - - Respiratory Rate 15 12/17/2023 9:39 AM EDT Oxygen Saturation - - Inhaled Oxygen Concentration - - Weight 98.9 kg (218 lb) 12/17/2023 9:39 AM EDT Height 160 cm (5' 3 ) 12/17/2023 9:39 AM EDT Body Mass Index 38.62 12/17/2023 9:39 AM EDT Plan of Treatment Health Maintenance Due Date Last Done Comments Depression Screen 1980 HIV screen 10/03/1983 Hepatitis C screen 1986 DTaP/Tdap/Td vaccine (1 - Tdap) 10/03/1987 Hepatitis B vaccine (1 of 3 - 19+ 3-dose series) 10/03/1987 Diabetes screen 10/03/2003 Breast cancer screen 2008 Lipids 2008 Colonoscopy 2013 Colorectal Cancer Screen 2013 FIT/FOBT: Average risk 2013 Fecal-DNA (Cologuard): [place] ge risk 2013 Sigmoidoscopy/CT colonography 2013 Pneumococcal 50+ years Vacci ne (1 of 1 - PCV) 2018 Shingles vaccine (1 of 2) 2018 COVID-19 Vaccine ( - 2023-2 5 season) 2024 11/09/2020, 10/12/2020 Flu vaccine (Season Ended) 12/29/202405/23, 03/22/2019 Hepatitis A vaccine Aged Out No longe r eligible based on patient's age to complete this topic Hib vaccine Aged Out No longer eligi ble based on patient's age to complete this topic Meningococcal (ACWY) vaccine Aged Out No longer eligible based on patient's age to complete this topic Meningococcal B vaccine Aged Out No l onger eligible based on patient's age to complete this topic Polio vaccine Aged Out No longer elig ible based on patient's age to complete this topic Insurance BCBS OUT OF STATE Care Teams Business Banking Manager Relationship Specialty Start Date End Date Aby Yu APRN - ANG[facility] [address] [place] [address] PCP - General Family Medicine 10/07/23
--- OUTSIDE RECORDS SUMMARY | 2024-11-22 14:19 | XMS_ITS | Clinical Summary ---
Author Organization [facility] Address [id number] [address] [place] [address] Care Team Providers Care Registry Np Name Role Phone Unavailable Primary Care Provider Unavailabl e Social History Tobacco Use Types Packs/Day Years Used Date Smoking Tobacco: Never Assessed Childcare Answer Date Recorded Childcare Unknown 11/09/2018 Employment Answer Date Recorded Employment Unknown 11/09/2018 Comments Unknown Sex and Gender Information Value Date Recorded Sex Assigned at Not on file Legal Sex Female 11:23 AM EDT Gender Identity Not on file Sexual Orientation Not on file Plan of Treatment Not on file Medical Devices Not on file
--- OUTSIDE RECORDS SUMMARY | 2024-11-22 14:19 | XMS_ITS | Clinical Summary ---
Author Organization [facility] Address [address] [place] [address] Care Team Providers Care Soldering Machine Operator Name Role Phone Unavailable Primary Care Provider Unavailabl e Social History Tobacco Use Types Packs/Day Years Used Date Smoking Tobacco: Never Assessed Comments Unknown Sex and Gender Information Value Date Recorded Sex Assigned at Not on file Legal Sex Female 6:48 PM EDT Gender Identity Not on file Sexual Orientation Not on file Plan of Treatment Not on file Insurance [facility]
== END 2024-11-22 14:15 | disposition home or self-care (01) ==
PROVIDERS: PCP Nurse Practitioner Family; Visit Provider Nurse Practitioner Family
DX: J32.9 Chronic sinusitis, unspecified (principal); I51.7 Cardiomegaly
CPT/HCPCS: 93306

== ENCOUNTER 2024-12-06 15:09 | Outpatient (OUT) | payer BC, SELFPAY ==
--- OUTSIDE RECORDS SUMMARY | 2024-12-06 15:11 | XMS_ITS | Encounter Summary ---
Author Organization [facility] Address [address] [place] [address] Care Team Providers Care Stud Setter Name Role Phone Osvaldo Browne MD Primary Care Provider [phone] Encounter Details Date Type Department Care Team (Late Contact Info) Description 12/04/2024 Orders Only [facility] [address] [facility] [address] [place] [id number] Aby Yu MD [address] [place] [id number] Social History Tobacco Use Types Packs/Day Years Used Date Smoking Tobacco: Never Assessed Comments Unknown Sex and Gender Information Value Date Recorded Sex Assigned at Not on file Legal Sex Female 6:48 PM EDT Gender Identity Not on file Sexual Orientation Not on file documented as of this encounter Plan of Treatment Upcoming Encounters Date Type Department Care Team (Late Contact Info) Description 12/19/2024 3:00 PM EDT Office Visit [facility] [address] [facility] [address] [place] [phone] Renu Beltrán MD [address] [facility] [address] [place] [address] documented as of this encounter Procedures Procedure Name Priority Date/Time Associated Diagnosis Comments CT SINUS WO Routine 12/04/2024 12:03 PM EDT documented in this encounter Results * CT SINUS WO IV CONTRAST (12/04/2024 12:03 PM EDT) Anatomical Region Laterality Modality Head, Neck Computed Tomogra phy us Aby Yu MD IMG CT PROCEDURES Final R esult documented in this encounter Visit Diagnoses Not on filedocumented in this encounter Care Teams Stud Setter Relationship Specialty [place] [address] [place] [address] PCP - General Cardiology 12/05/24 documented as of this encounter
--- OUTSIDE RECORDS SUMMARY | 2024-12-06 15:11 | XMS_ITS | Encounter Summary ---
Author Organization [facility] Address [address] [place] [address] Care Team Providers Care Despatching And Receiving Clerk Name Role Phone Aby Yu CNP Unavailable [phone] Source Comments In the event this information is protected by the Federal Confidentiality of Alcohol and Drug AbusePatient Records regulations: The Federal rules restrict any use of the information to criminally investigate or prosecute any alcohol or drug abuse patient.[facility] Encounter Details Date Type Department Care Team (Late st Contact Info) Description 07/14/2024 Patient Msg Neurology [address] [place], [place] [id number] Provider, [facility] Order Social History Tobacco Use Types Packs/Day Years Used Date Smoking Tobacco: Every Day Cigarettes Smokeless Tobacco: Never Alcohol Use Standard Drinks/Week Comments Not Currently 0 (1 standard drink = 0.6 oz pur e alcohol) PHQ-2 Answer Date Recorded PHQ-2 score 3 06/15/2024 Area Deprivation Index Answer Date Joselo rded National Score (1-100), lower number is lower ri sk 61 06/09/2024 State Score (1-10), lower number is lower risk 4 06/09/2024 Data from: https://www.neighborhoodatlas.medicine.[facility].edu/. Last address used for calculation [address] [place] [address] 06/09/2024 Comments Unknown Sex and Gender Information Value Date Recorded Sex Assigned at Not on file Legal Sex Female 1:04 PM EST Gender Identity Not on file Sexual Orientation Not on file documented as of this encounter Plan of Treatment Not on file documented as of this encounter Visit Diagnoses Not on filedocumented in this encounter Care Teams Despatching And Receiving Clerk Relationship Specialty Start Date End Date Aby Yu CNP [address] [place] [address] Referring Family Medicine 03/02/24 documented as of this encounter
--- OUTSIDE RECORDS SUMMARY | 2024-12-06 15:11 | XMS_ITS | Clinical Summary ---
Author Organization [facility] Address [address] [place] [address] Care Team Providers Care Student Services Vice President Name Role Phone Tiffanie Yumina PINA - CASE CONSULTANT Primary Care Pro vider Allergies Active Allergy [...] 2013 FIT/FOBT: Average risk 2013 Fecal-DNA (Cologuard): [place] ge risk 2013 Sigmoidoscopy/CT colonography 2013 Pneumococcal 50+ years Vacci ne (1 of 1 - PCV) 2018 Shingles vaccine (1 of 2) 2018 COVID-19 Vaccine (2023-2 5 season) 2024 11/09/2020, 10/12/2020 Flu vaccine (#1) 12/29/2024 05/23/2020, 03/22/2019 Hepatitis A vaccine Aged Out No [...] Insurance BCBS OUT OF STATE Care Teams Student Services Vice President Relationship Specialty Start Date End Date Aby Yu APRN - ANGEL [address] [place] [address] PCP - General Family Medicine 10/07/23
--- OUTSIDE RECORDS SUMMARY | 2024-12-06 15:11 | XMS_ITS | Encounter Summary ---
Author Organization [facility] Address [address] [place] [address] Care Team Providers Care Stroke Program Coordinator Name Role Phone Aby Yu CNP Unavailable [phone] Source Comments In the event this information is protected by the Federal Confidentiality of Alcohol and Drug AbusePatient Records regulations: The Federal rules restrict any use of the information to criminally investigate or prosecute any alcohol or drug abuse patient.[facility] Encounter Details Date Type Department Care Team (Late st Contact Info) Description 06/26/2024 Patient Msg Neurology [address] [place], [place] [id number] Provider, [facility] Requested EMG Appointment Social History Tobacco Use Types Packs/Day Years [...] is lower risk 4 06/09/2024 Data from: https://www.neighborhoodatlas.medicine.[facility].edu/. Last address used for calculation [address] [place] [address] 06/09/2024 Comments Unknown Sex and Gender Information Value Date Recorded Sex Assigned at Not on file Legal Sex Female 1:04 PM EST Gender Identity Not on file Sexual Orientation Not on file documented as of this encounter Plan of Treatment Not on file documented as of this encounter Visit Diagnoses Not on filedocumented in this encounter Care Teams Stroke Program Coordinator Relationship Specialty Start Date End Date Aby Yu CNP [address] [place] [address] Referring Family Medicine 03/02/24 documented as of this encounter
--- OUTSIDE RECORDS SUMMARY | 2024-12-06 15:11 | XMS_ITS | Clinical Summary ---
Author Organization [facility] Address [address] [place] [address] Care Team Providers Care Field Sales Engineer Name Role Phone Aby Yu CNP Unavailable [phone] Allergies Active Allergy Reactions Criticality Noted Date Comments Penicillins Rash,Diarrhea Medium 06/09/2024 Medications gabapentin (NEURONTIN) 600 mg tablet Take 600 mg by mouth three times a day. Active hydrocodone/sg taminophen (NORCO ORAL) Take 7.5 mg by mouth three times a day. Active baclofen 10 mg tablet Take 10 mg by mouth two times a day. Active meloxicam (MOBIC) 15 mg tablet Take 15 mg by mouth once daily. Active lisinopril (ZESTRIL) 10 mg tablet Take 10 mg by mouth once daily. Active pantoprazole DR (PROTONIX) 40 mg tablet Take 40 mg by mouth once daily. Active montelukast (SINGULAIR) 10 mg tablet Take 10 mg by mouth daily at bedtime. Active fluticasone-ume clidin-vilanter (TRELEGY ELLIPTA) 100-62.5-25 mcg inhalation powder Inhale 1 Puff as instructed once daily. Active cefdinir (OMNICEF) 300 mg capsule Take 300 mg by mouth two times a day. Active albuterol-budes onide HFA (AIRSUPRA) 90-80 mcg/actuation inhaler Inhale 2 Puffs as instructed. Do not take more than 12 inhalations in a 24 hour period. Active Encounters Date Type Department Care Team Description 09/26/2024 3:00 PM EDT Office Visit [facility] [place] [address] [place] [address] Los Trujillo MD Spinal stenosis of cervical region (Primary Dx); Lumbar radiculopathy; Adhesive arachnoiditis (HCC) 09/25/2024 Travel from Last 3 Months Social History Tobacco Use Types Packs/Day Years Used Date Smoking Tobacco: Every Day Cigarettes Smokeless Tobacco: Never Tobacco Cessation:Ready to Q uit: Not Asked; Counseling Given: Not Answered Alcohol Use Standard Drinks/Week Comments Not Currently 0 (1 standard drink = 0.6 oz pur e alcohol) PHQ-2 Answer Date Recorded PHQ-2 score 3 09/25/2024 Area Deprivation Index Answer Date Joselo rded National Score (1-100), lower number is lower ri sk 61 06/09/2024 State Score (1-10), lower number is lower risk 4 06/09/2024 Data from: https://www.neighborhoodatlas.medicine.[facility]/. Last address used for calculation [address] [facility] 06/09/2024 Comments No Sex and Gender Information Value Date Recorded Sex Assigned at Not on file Legal Sex Female 1:04 PM EST Gender Identity Not on file Sexual Orientation Not on file Last Filed Vital Signs Vital Sign Reading Time Taken Comments Blood Pressure 155/95 09/26/2024 2:59 PM EDT Pulse 96 09/26/2024 2:59 PM EDT Temperature - - Respiratory Rate 16 09/26/2024 2:59 PM EDT Oxygen Saturation 98% 09/26/2024 2:59 PM EDT Inhaled Oxygen Concentration - - Weight 97.7 kg (215 lb 4.5 oz) 09/26/2024 2:59 P M EDT Height 160 cm (5' 3 ) 09/26/2024 2:59 PM EDT Body Mass Index 38.14 09/26/2024 2:59 PM EDT Plan of Treatment Health Maintenance Due Date Last Done Comments Anxiety Screening 1986 Depression Screening 1986 HIV Screening 1986 Hepatitis C Screening 1986 DTaP,Tdap,Td Vaccine (1 - Tdap) 10/03/1987 Hepatitis B Vaccine (1 of 3 - 19+ 3-dose series) 10/03/1987 Pneumococcal Vaccine: 50+ (1 of 2 - PCV) 10/03/1987 Cervical Cancer Screening [address] Colonography 2013 Cologuard (FIT-DNA) 2013 Colonoscopy 2013 Colorectal Cancer Screening 2013 Diabetes Screening 2013 Fecal Occult Blood 2013 Lipid Screening 2013 Sigmoidoscopy 2013 Shingrix Vaccine (1 of 2) 2018 Covid-19 Vaccine ( season) 01/30/202404/2021, 10/12/2020 Influenza Vaccine (#1) 2025 05/23/2020, 2018 Insurance BLUE CARD PPO OOS Care Teams Field Sales Engineer Relationship Specialty Start Date End Date Aby Yu CNP [address] [place] [address] Referring Family Medicine 03/02/24
--- OUTSIDE RECORDS SUMMARY | 2024-12-06 15:11 | XMS_ITS | Encounter Summary ---
Author Organization [facility] Address [address] [place] [address] Care Team Providers Care Lapidarist Name Role Phone Aby Yu CNP Unavailable [phone] Source Comments In the event this information is protected by the Federal Confidentiality of Alcohol and Drug AbusePatient Records regulations: The Federal rules restrict any use of the information to criminally investigate or prosecute any alcohol or drug abuse patient.[facility] Encounter Details Date Type Department Care Team (Late st Contact Info) Description 07/06/2024 Patient Msg Neurology [address] [place], [place] [id number] Provider, [facility] EMG Order Social History Tobacco [...] is lower risk 4 06/09/2024 Data from: https://www.neighborhoodatlas.medicine.[facility].edu/. Last address used for calculation [address] [place] [address] 06/09/2024 Comments Unknown Sex and Gender Information Value Date Recorded Sex Assigned at Not on file Legal Sex Female 1:04 PM EST Gender Identity Not on file Sexual Orientation Not on file documented as of this encounter Plan of Treatment Not on file documented as of this encounter Visit Diagnoses Not on filedocumented in this encounter Care Teams Lapidarist Relationship Specialty Start Date End Date Aby Yu CNP [address] [place] [address] Referring Family Medicine 03/02/24 documented as of this encounter
--- OUTSIDE RECORDS SUMMARY | 2024-12-06 15:11 | XMS_ITS | Encounter Summary ---
Author Organization [facility] Address [address] [place] [address] Care Team Providers Care Solar Electric Practitioner Name Role Phone Aby Yu CNP Unavailable [phone] Source Comments In the event this information is protected by the Federal Confidentiality of Alcohol and Drug AbusePatient Records regulations: The Federal rules restrict any use of the information to criminally investigate or prosecute any alcohol or drug abuse patient.[facility] Encounter Details Date Type Department Care Team (Late st Contact Info) Description 06/29/2024 Patient Msg Neurology [address] [place], [place] [id number] Provider, [facility] EMG Order Social History Tobacco [...] is lower risk 4 06/09/2024 Data from: https://www.neighborhoodatlas.medicine.[facility].edu/. Last address used for calculation [address] [place] [address] 06/09/2024 Comments Unknown Sex and Gender Information Value Date Recorded Sex Assigned at Not on file Legal Sex Female 1:04 PM EST Gender Identity Not on file Sexual Orientation Not on file documented as of this encounter Plan of Treatment Not on file documented as of this encounter Visit Diagnoses Not on filedocumented in this encounter Care Teams Solar Electric Practitioner Relationship Specialty Start Date End Date Aby Yu CNP [address] [place] [address] Referring Family Medicine 03/02/24 documented as of this encounter
--- OUTSIDE RECORDS SUMMARY | 2024-12-06 15:11 | XMS_ITS | Clinical Summary ---
Author Organization [facility] Address [id number] [address] [place] [address] Care Team Providers Care Moisture Conditioner Operator Name Role Phone Unavailable Primary Care [...]
--- NOTE | 2024-12-06 15:15 | PM.CN ---
Consult Note: HPI Data of Consult Patient: known to practice within the last 3 years Requesting Physician: Day Fleming NP Primary Care Provider: JOSEPH MARK Consult Narrative Reason for consult: f/u Narrative: Kim Hill a pleasant 54 year old female presents to office for evaluation of chronic low back and right buttock pain, post lumbar fusion L4-5 L5-S1. Patient rating pain today 6/10 increasing to 10/10 with standing and activity. Patient finds mild to moderate benefit with norco 7.5-325mg TID PRN, gabapentin 600mg TID, baclofen 10mg BID, mobic 15mg daily without side effects. Pt has a hx of multilevel lumbar fusion 3 years ago but continues to have moderate to severe pain. Following with [facility] for consideration of scs trial, no further surgery recommended. cc:: CC: Day Fleming NP Review of Systems ROS Status of ROS 10 or more systems reviewed and unremarkable except as noted in history and below Musculoskeletal Reports: back pain and joint pain PFSH PFSH Medical History Asthma exacerbation ?J45.901 - Unspecified asthma with (acute) exacerbation (ICD-10) Influenza ?J11.1 - Influenza due to unidentified influenza virus with other respiratory manifestations (ICD-10) Pneumonia ?J18.9 - Pneumonia, unspecified organism (ICD-10) Obesity ?E66.9 - Obesity, unspecified (ICD-10) Osteoarthritis ?M19.90 - Unspecified osteoarthritis, unspecified site (ICD-10) Rheumatoid arthritis ?M06.9 - Rheumatoid arthritis, unspecified (ICD-10) Anxiety ?F41.9 - Anxiety disorder, unspecified (ICD-10) Acid reflux ?K21.9 - Gastro-esophageal reflux disease without esophagitis (ICD-10) Smoker ?F17.200 - Nicotine dependence, unspecified, uncomplicated (ICD-10) Asthma ?J45.909 - Unspecified asthma, uncomplicated (ICD-10) Heart murmur ?R01.1 - Cardiac murmur, unspecified (ICD-10) HTN (hypertension) ?I10 - Essential (primary) hypertension (ICD-10) Surgical History History of lymph node excision ?Z98.890 - Other specified postprocedural states (ICD-10) History of hysterectomy ?Z90.710 - Acquired absence of both cervix and uterus (ICD-10) History of lumbar fusion ?Z98.1 - Arthrodesis status (ICD-10) Family History Aunt Family history of cancer Mother Family history of diabetes mellitus Family history of hypertension Father Family history of diabetes mellitus Family history of hypertension Social History Within the past year, how often did you have a drink containing alcohol: never Score interpretation: A score less than 3 is consistent with normal alcohol consumption. 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 Highest level of school completed/degree received: GED or equivalent Are you now , , , , never or living with a partner: In a typical week, how many times do you talk on the telephone with family, friends, or neighbors: 3 or more times per week How often do you get together with friends or relatives: 3 or more times per week Little interest or pleasure in doing things: not at all Feeling down, depressed, or hopeless: not at all Feel stressed/tense/nervous/anxious/difficulty sleeping: not at all Do you think of yourself as: straight/heterosexual Gender Identity: female Meds Home Medications and Allergies Home Medications ?Medication ?Instructions ?Recorded ?Confirmed ?Type VITAMIN C 250 mg PO DAILY 11/12/22 08/28/24 History cholecalciferol (vit D3) 1,000 1 tab PO DAILY 11/12/22 08/28/24 History unit-vitamin K2 (MK4) 100 mcg tablet (K2 Plus D3) lisinopril 10 mg tablet 10 mg PO DAILY 11/12/22 08/28/24 History albuterol 90 mcg-budesonide 80 2 inh inhalation BID sob 04/27/24 08/28/24 History mcg/actuation HFA aerosol inhaler (Airsupra) ascorbic acid (vitamin C) 250 mg 250 mg PO DAILY 04/27/24 08/28/24 History tablet (Vitamin C) azithromycin 500 mg tablet 500 mg PO DAILY 04/27/24 08/28/24 History (Zithromax) montelukast 10 mg tablet 10 mg PO DAILY 04/27/24 08/28/24 History (Singulair) pantoprazole 40 mg tablet,delayed 40 mg PO DAILY 04/27/24 08/28/24 History release (Protonix) zinc 50 mg capsule 50 mg PO DAILY 04/27/24 08/28/24 History hydrocodone 7.5 mg-acetaminophen 1 tab PO TID PRN pain #90 tabs 05/11/24 08/28/24 Rx 325 mg tablet baclofen 10 mg tablet 10 mg PO TID PRN muscle spasm #90 07/11/24 08/28/24 Rx tabs gabapentin 600 mg tablet 600 mg PO TID #90 tabs 07/11/24 08/28/24 Rx meloxicam 15 mg tablet 15 mg PO DAILY #30 tabs 07/11/24 08/28/24 Rx oxycodone-acetaminophen 7.5 mg-325 See Rx Instructions .Route 08/10/24 Rx mg tablet (Percocet) .COMPLEX PRN pain #70 tabs hydrocodone 7.5 mg-acetaminophen See Rx Instructions .Route 09/06/24 Rx 325 mg tablet .COMPLEX PRN pain #70 tabs hydrocodone 7.5 mg-acetaminophen 1 tab PO TID PRN pain #70 tabs 10/06/24 Rx 325 mg tablet baclofen 10 mg tablet 10 mg PO TID PRN muscle spasm #90 11/02/24 Rx tabs hydrocodone 7.5 mg-acetaminophen See Rx Instructions .Route 11/02/24 Rx 325 mg tablet .COMPLEX PRN pain #70 tabs meloxicam 15 mg tablet 15 mg PO DAILY #30 tabs 11/02/24 Rx hydrocodone 7.5 mg-acetaminophen See Rx Instructions .Route 11/29/24 Rx 325 mg tablet .COMPLEX PRN pain #70 tabs Allergies Allergy/AdvReac Type Severity Reaction Status Date / Time amoxicillin (From Augmentin) Allergy Unknown Rash Verified 08/28/24 10:11 clavulanic acid (From Allergy Unknown Rash Verified 08/28/24 10:11 Augmentin) Penicillins Allergy Unknown RASH Verified 08/28/24 10:11 Exam Constitutional Documenting provider has reviewed patient's vital signs: yes Common normals: no apparent distress, oriented x3, healthy appearing, alert and well nourished General appearance: cooperative HENMT Common normals: normocephalic, hearing grossly normal bilaterally and moist oral mucous membranes Head and scalp: normocephalic Eye Common normals: PERRL Pupil: PERRL Neck & C-Spine Common normals: full ROM General: normal visual inspection Cervical spine: pain with cervical ROM and paracervical muscle tenderness Other: intermittent radiculopathy to bilateral hands right greater than left Chest Common normals: inspection of chest normal Respiratory Common normals: normal respiratory effort, no retractions and no use of accessory muscles Back & Pelvis Lumbar spine/lower back: ROM limited, pain with ROM and straight leg raise negative bilaterally; straight leg raise negative right Sacroiliac joints: SI joint(s) abnormal Other: right sij positive beto(patricks), gaenslens, thigh thrust, compression test Extremity Common normals: full ROM Other: nonpitting edema to RLE utilizing right ankle brace for instability and foot drop Neuro Common normals: oriented x3 Sensorium/orientation: alert Gait (neuro): antalgic Motor exam: strength 5/5 throughout and no movement abnormalities noted Psych Common normals: mental status grossly normal, thought process normal, cooperative, affect normal, speech normal and activity/motor behavior normal Speech: normal speech Thought process: normal thought process Results Additional Findings Additional findings: If on a controlled substance or opioids, I have checked an [place]ARRS report on this patient and there are no aberrancies noted in the prescribing history.??If on a controlled substance or opioid a drug screen was completed and reviewed within the last year, and if there has not been a drug screen completed we ordered one today to monitor higher risk, state monitored pain medication use. As part of providing excellent, safe, comprehensive care, the following was completed at our patient's visit: 1. A medication reconciliation and review to ensure accurate knowledge of current/active medications, including asking our patients to inform us about any [id number] medications or herbal remedies/nutritional supplements/alternative remedies. 2. A review to specifically ensure our patients have had annual screening for screening for depression, screening for tobacco use, and screening for unhealthy alcohol use. For concerning screenings had a discussion with the patient, provided patient education, and recommended follow-up with primary care provider when appropriate. If patient noted with a risk of falling, they received education on strength, gait, and balance training to prevent future risk of falling. Portions of this note may have been carried over from the previous visit and updated as appropriate. Please note this office utilizes paper charting in addition to the electronic medical record. A list of current medications, vitals, and PMH is available there as the clinical staff outside of myself do not have access to [employer] charting during the clinic day operations. As part of providing quality comprehensive care the current medications, vitals, and PMH were reviewed in the paper chart. Assessment and Plan Assessment and Plan (1) Sacroiliitis: (2) Sacroiliac joint dysfunction: (3) Lumbar stenosis with neurogenic claudication: (4) Failed back syndrome: (5) Lumbar radiculopathy: (6) Lumbar spondylosis: (7) Chronic prescription opiate use: Assessment and Plan: I feel these medications are improving the patient's quality of life and allow them to tolerate activities of daily living as well as participate in recreational activity.? The patient does not report intolerable side effects. The patient is NOT opioid naive and non-pharmacologic and non-opioid treatment has failed to significantly relieve the patient's pain and improve functionality. The patient has a diagnosis that is related to a somatic or visceral pain etiology. ? ?? I reviewed with the patient the potential risks and side effects with the use of? opioid medications including but not limited to respiratory depression,? sedation, and even . Within the last 12 months I have verified the patient has access to naloxone should? these effects occur. The patient was advised to let? their family know they had Naloxone in case they would need to administer? the medication. I advised the patient to avoid the use of any other? sedation substances including alcohol, THC, and benzodiazepines while? taking opioid medications due to the risk of compounding side effects and? detrimental outcomes. within the last 12 months I have reviewed the RADIATION CONTROL HEALTH PHYSICIST, pain treatment agreement and urine drug screen.? ?? A drug screen was completed within the last year, and no aberrancies were noted regarding their use of controlled substances. The patient understands they are subject to the terms and conditions of the pain contract that they have signed. ? ?? I have checked an OARRS report on this patient today and there are no aberrancies noted in the prescribing history.? Plan right sij injection under fluoroscopy with steroid rotation to kenalog as pt previously had >50% improvement in pain and functional ability for 3 months, most recent SIJ injection contained depomedrol and she is not having >50% improvement at this time continue hydrocodone-acetaminophen 7.5-325mg BID to TID PRN moderate to severe pain 70 tabs to last 30 days continue current medications, risks vs benefits reviewed continue f/u with NS continue HEP as tolerated f/u 2 weeks after injection or 3 months for medication management
== END 2024-12-06 15:10 | disposition home or self-care (01) ==
LOC: PM 15:09
PROVIDERS: PCP Nurse Practitioner Family; Visit Provider Nurse Practitioner
DX: M46.1 Sacroiliitis, not elsewhere classified (principal); M53.3 Sacrococcygeal disorders, not elsewhere classified; M48.062 Spinal stenosis, lumbar region with neurogenic claudication; M96.1 Postlaminectomy syndrome, not elsewhere classified; M54.16 Radiculopathy, lumbar region; M47.816 Spondylosis without myelopathy or radiculopathy, lumbar region; Z79.891 Long term (current) use of opiate analgesic
CPT/HCPCS: G0463

== ENCOUNTER 2024-12-19 15:46 | Outpatient (REF) | payer BC, SELFPAY | END 2024-12-19 15:47 | disposition home or self-care (01) | LOC: LAB 15:46 | PROVIDERS: PCP Nurse Practitioner Family; Visit Provider Otolaryngology | DX: R44.2 Other hallucinations (principal) | CPT/HCPCS: 87070; 87077; 87186 ==

== ENCOUNTER 2025-01-02 14:43 | Outpatient (OUT) | payer BC, SELFPAY ==
--- NOTE | 2025-01-02 14:49 | MR_ITS ---
[address] [address] Patient Name: AKASH LIU MRN: [id number] date: 1970 Sex: F Assigned Patient Location: MRI Current Patient Location: MRI Accession/Order Number: [id number] Exam Date: 01/02/2025 23:09 Report Date: 01/02/2025 23:13 At the request of: NON-STAFF PHYSICIAN Procedure: MR cervical spine wo con EXAMINATION: MRI OF THE CERVICAL SPINE WITHOUT CONTRAST CLINICAL DATA: Cervical Spinal Stenosis TECHNIQUE: Multiecho imaging was performed in the sagittal and axial plane without contrast administration. FINDINGS: Craniocervical junction maintained. Mild straightening of the normal cervical lordosis. There is mild motion artifact which does degrade sensitivity of this examination. There are degenerative endplate marrow changes notably C5-6. Mild intervertebral space narrowing C4-6-7. Prevertebral and paraspinal soft tissues are unremarkable. Cervical cord demonstrates normal signal and morphology.. C2-C3: Mild right facet arthropathy. No significant disease central canal or neural from narrowing identified. C3-C4: Minimal broad-based bulge. Mild right moderate left facet arthropathy. No central canal or neural foraminal narrowing. C4-C5: Broad-based disc bulge with uncovertebral spurring and facet arthropathy, mild right moderate left. This results in mild to moderate right and mild left neural foraminal narrowing. There is mild central canal stenosis. C5-C6: Broad-based disc bulge with uncovertebral spurring. Moderate bilateral neural foraminal narrowing. Mild central canal stenosis. C6-C7: Circumferential disc bulge with bilateral uncovertebral spurring. Moderate to severe right and severe left neural foraminal narrowing. Moderate canal narrowing. C7-T1: Mild facet arthropathy. Otherwise no significant disease central canal or neural from narrowing identified. MR/MR cervical spine wo con IMPRESSION: Overall moderate degenerative changes greatest at C6-C7 with bilateral foraminal narrowing and moderate canal narrowing. IMPRESSION: NEGATIVE STUDY. Impression dictated by: Donald Perez M.D. 01/02/2025 11:13 PM Dictation Location: [place] [address] Electronically authenticated by: [id number] Y Date: 01/02/2025 23:13
== END 2025-01-02 14:44 | disposition home or self-care (01) ==
LOC: MRI 14:43
PROVIDERS: PCP Nurse Practitioner Family
DX: M48.02 Spinal stenosis, cervical region (principal)
CPT/HCPCS: 72141

== ENCOUNTER 2025-01-17 14:37 | Outpatient (OUT) | payer BC, SELFPAY ==
--- OUTSIDE RECORDS SUMMARY | 2025-01-17 14:44 | XMS_ITS | CCD ---
Author Organization [facility] Care Team Providers Care Instrument Maker Name Role Phone Roberto Roth Primary Care Provider Justice Cruz Attending Provider DO Roberto Roth Primary Care Provider [phone] MD Hood Rausch Attending Provider [phone] DO Roberto Roth Primary Care Provider [phone] CALVIN Mark Attending Provider MD Paresh Tian Attending Provider [phone] RothDO Roberto oliva Primary Care Provider CALVIN Mark Attending Provider MD Paresh Tian Attending Provider [phone] MD Gina Guerrero Attending Provider Gina Guerrero [...] IRA, DR ROBERTO Bhakta Primary Care Unavailable LAKSHMIPATHOlga ., NARENDOMAR Attending Manjula vailable DR ROBERTO [...] Unava ilable SINGH ., ADA Attending Unavailable ISNGH ., ADA Admitting Unavailable ROTH, DR ROBERTO Bhakta Primary Care Unavailable [place], DR DASHA [employer] Consulting Unavailable SINGH ., [...] Guerrero Admitting Unavailable Aby Mark CNP Unavailable [phone] Gilitaitis , Aaron Musa Attending Unavailable Gilitaitis , Andtawanda Musa Attending Unavailable Gimac BUSTILLO, Andtawanda Musa Attending Unavailable Gimac BUSTILLO, Andtawanda Musa Attending Unavailable JOELLE SARMIENTO Attending Unavailable ABY MARK Referring Unavailable JOELLE ASRMIENTO Attending Unavailable ABY MARK Referring Unavailable JOELLE SARMIENTO Attending Unavailable Pavan BUSTILLO [facility] Primary Care Provider ROMARENU Attending Unavailable Unavailable Unavailable Unavailable Allergies Allergy Classification Reported Allergen(s) Allergy Type Date of Onset Reaction(s) Facility (6 sources) Amoxicillin; Translations: [amoxicillin] Drug Allergy 05-14-20 Nausea [facility] (11 sources) Penicillins; Translations: [Penicillins] Propensity to adverse reactions 07-24-19 14 Rash, Diarrhea [facility] (6 sources) clavulanic acid; Translations: [clavulanic acid] Propensity to adverse reactions 05-14-20 20 Nausea [facility] (3 sources) Amoxicillin / Clavulanate; Translations: [Augmentin] Drug Allergy 07-24-19 14 Unknown [facility] Repository (2 sources) Azithromycin Drug Allergy diarrhea [facility] Other (4 sources) Penicillin G Drug Allergy 12-20-[address] [facility] Other (2 sources) Amoxicillin-Pot Clavulanate Drug Allergy 12-17-19 24 Diarrhea [facility] Medications Current Medications Medication Drug Class(es) Dates Sig (Normalized) Sig (Original) acetaminophen 500 mg oral tablet (4 sources) Start: 05-31-2020 take 500 mg by mouth every four hours Acetaminophen Active 500 MG PO Q4H 100 May 31, 2020 1:00am acetaminophen 325 mg / HYDROcodone bitartrate 7.5 mg oral tablet (12 sources) Opioid Agonist Start: 12-08-2024 take 1 tablet by mouth three times daily as needed for pain HYDROcodone-acetami nophen ([place]) 7.5-325 MG tablet TAKE ONE TABLET BY MOUTH THREE TIMES A DAY NEEDED FOR PAIN. MUST LAST 30 DAYS 12/08/2024 Active Start: 03-18-2019 End: 05-23-2020 take 1 tablet by mouth three times daily Hydrocodone-Acetaminophen ([place]) 5-325 mg Tablet Discontinued 1 TAB PO Three times daily March 18, 2019 12:00am May 23, 2020 4:59pm take 7.5 mg by mouth three times daily hydrocodone/acetaminophen (NORCO ORAL) T francie 7.5 mg by mouth three times a day. Active [place] Active [id number] 200 actuat albuterol 0.09 mg/actuat metered dose inhaler (17 sources) beta2-Adrenergic Agonist Start: 11-25-2024 take 2 puff(s) by mouth every four to six hours as needed albuterol HFA 90 mcg/act inhaler TAKE 2 PUFFS BY MOUTH EVERY 4 TO 6 HOURS NEEDED 11/25/2024 Active Start: 06-26-2021 take 1 puff(s) by in halation every three hours Albuterol Sulfate (Ventolin Hfa) [...] / ipratropium bromide 0.167 mg/ml inhalation solution (6 sources) Anticholinergic, beta2-Adrenergic Agonist Start: 05-04-2024 ipratropium-albuterol (Duo-Neb) 0.5-2.5 mg/3 mL nebulizer solution USE 1 VIAL PER NEBULIZER 3 TIMES DAILY 05/04/2024 Active Start: 05-31-2020 take 1 mL by inhalat ion four times daily Ipratropium-Albuterol Active 3 ML INHALATION Four times daily - Respiratory May 31, 2020 1:00am albuterol-budesonide HFA (AIRSUPRA) 90-80 mcg/actuation inhaler (3 sources) albuterol-budeso nide HFA (AIRSUPRA) 90-80 mcg/actuation inhaler Inhale 2 Puffs as instructed. Do not take more than 12 inhalations in a 24 hour period. Active Anoro Ellipta 62.5-25 MCG/INH (2 sources) take 1 puff(s) by mouth once daily Anoro Ellipta 62.5-25 MCG/INH INHALE 1 PUFF BY MOUTH EVERY DAY Inhalation for 30 Active baclofen 10 mg oral tablet (5 sources) gamma-Aminobuty gabriela Acid-ergic Agonist take 1 tablet by mouth three times daily as needed for muscle spasms baclofen (Lioresal) 10 MG tablet TAKE ONE TABLET BY MOUTH THREE TIMES A DAY NEEDED FOR MUSCLE SPASM Active take 1 tablet by mouth twice malgorzata ly baclofen 10 mg tablet Take 10 mg by mouth two times a day. Active cefdinir 300 mg oral capsule (3 sources) Cephalosporin Antibacterial take 1 capsule by mouth twice daily cefdinir (OMNICEF) 300 mg capsule Take 300 mg by mouth two times a day. Active cetirizine hydrochloride 10 mg oral tablet (2 sources) Histamine-1 Receptor Antagonist Start: End: take 1 tablet by mouth once daily as needed cetirizine (ZyrTEC) 10 MG tablet Indications: Chronic maxillary sinusitis Take 1 tablet (10 mg) by mouth Daily as needed for allergies 90 tablet 3 12/19/2024 12/19/2025 Active fluticasone propionate 0.05 mg/actuat metered dose nasal spray (2 sources) Corticosteroid Start: fluticasone (Flonase) 50 MCG/ACT nasal spray Indications: Chronic maxillary sinusitis 2 sprays to the right nose twice daily. Shake gently. Before first use, prime pump. After use, clean tip and replace cap. 48 g 3 12/19/2024 Active 30 actuat fluticasone furoate 0.1 mg/actuat / umeclidinium 0.0625 mg/actuat / vilanterol 0.025 mg/actuat dry powder inhaler (3 sources) Anticholinergic, Corticosteroid, beta2-Adrenergic Agonist take 1 puff(s) by inhalation once daily fluticasone-umecli din-vilanter (TRELEGY ELLIPTA) 100-62.5-25 mcg inhalation powder Inhale 1 Puff as instructed once daily. Active gabapentin 300 mg oral capsule (16 sources) Anti-epileptic Agent Start: take 600 mg by mouth three times daily Gabapentin Active 600 MG PO Three times daily 0 May 31, 2020 1:00am Start: 03-18-2019 End: 06-01-2020 take 600 mg by mouth three times daily Gabapentin Discontinued 600 MG PO Three times daily March 18, 2019 12:00am June 01, 2020 10:48am lisinopril 10 mg oral tablet (16 sources) Angiotensin Converting Enzyme Inhibitor Start: 05-14-2020 End: 06-01-2020 take 10 mg by mouth once daily Lisinopril Active 10 MG PO Daily May 31, 2020 1:00am meloxicam 15 mg oral tablet (7 sources) Nonsteroidal Anti-inflammatory Drug take 1 tablet by mouth once daily meloxicam (Mobic) 15 MG tablet Take 15 mg by mouth Daily Active montelukast 10 mg oral tablet (5 sources) Leukotriene Receptor Antagonist take 1 tablet by mouth in the evening montelukast (Singulair) 10 MG tablet Take 10 mg by mouth in the evening Active omeprazole 20 mg delayed release oral [...] Oxycodone Discontinued 5 MG PO Q4H 40 May 31, 2020 June 23, 2021 5:32pm pantoprazole 40 mg delayed release oral tablet (7 sources) Proton Pump Inhibitor take 1 tablet by mouth once daily pantoprazole (ProtoNix) 40 MG EC tablet Take 40 mg by mouth Daily Active predniSONE 20 mg oral tablet (10 sources) Start: End: take 1 tablet by mouth in the morning predniSONE (Deltasone) 20 MG tablet Indications: Chronic maxillary sinusitis Take 1 tablet (20 mg) by mouth in the morning and 1 tablet (20 mg) before bedtime. Do all this for 6 days. 12 tablet 12/19/2024 12/25/2024 Active Start: 06-26-2021 Prednisone Act niru 0 MG PO Daily June 26, 2021 1:00am Take in the morning with food. Start: 02-14-2021 End: 06-23-2021 take 60 mg by mouth once daily at mealtime Prednisone Discontinued 60 MG PO Daily February 14, 2021 12:00am June 23, 2021 5:32pm administer with food or milk Trelegy Ellipta 200-62.5-25 MCG/ACT aerosol powder (2 sources) Start: 10-04-2024 take 1 puff(s) by inhalation once daily Trelegy Ellipta 200-62.5-25 MCG/ACT aerosol powder INHALE 1 PUFF BY INHALATION ROUTE ONCE DAILY AT THE SAME TIME EACH DAY 10/04/2024 Active vitamin b12 0.5 mg sublingual tablet (2 sources) Vitamin B12 Cyanocobalamin ( B-12) [address] under the tongue Active Zinc Sulfate (2 sources) Zinc Sulfate (ZI NC 15 PO) Take by mouth Active Completed/Discontinued Medications Medication Drug Class(es) Dates Sig (Normalized) Sig (Original) azithromycin 250 mg oral tablet (4 sources) [...] 8.6 mg Tablet Discontinued 2 TAB PO DAILY@May 31, 2020 12:00am June 23, 2021 4:32pm Start: 05-31-2020 End: 06-23-2021 take 2 tablets by mouth once daily Sennosides (Senna Lax) 8.6 mg Tablet Discontinued 2 TAB PO DAILY@May 31, 2020 1:00am June 23, 2021 5:32pm 7 actuat umeclidinium 0.0625 mg/actuat / vilanterol 0.025 mg/actuat dry powder inhaler (5 sources) Anticholinergic, beta2-Adrenergic Agonist Start: 03-18-2019 End: 06-01-2020 Umeclidinium-Vilanterol (Anoro Ellipta) 62.5-25 mcg/actuation Blister With Device Discontinued 1 PUFF INHALATION Q48H March 18, 2019 12:00am June 01, 2020 10:48am Problems Active Problems Problem Classification Problem Date Documented Date Episodic/Chronic Acquired foot deformities (3 sources) Acquired left hallux valgus; Translations: [Hallux valgus (acquired), left foot] Onset: 12-13-2024 12-13-2024 Chronic Acquired foot deformities (5 sources) Foot-drop; Translations: [Foot drop, right foot] 05-24-2020 Episodic Administrative/socia l admission (4 sources) Other reduced mobility; Translations: [Impaired mobility and activities of daily living] 05-24-2020 Episodic Anxiety disorders (4 sources) Panic attack; Translations: [Panic disorder [episodic paroxysmal anxiety]] 05-24-2020 Chronic Asthma (12 sources) Exacerbation of asthma; Translations: [Unspecified asthma with (acute) exacerbation] 06-24-2021 Chronic Bacterial infection; unspecified site (2 sources) History of methicillin resistant Staphylococcus aureus infection; Translations: [Personal history of Methicillin resistant Staphylococcus aureus infection] 12-19-2024 Episodic Chronic obstructive pulmonary disease and bronchiectasis (4 [...] disorder; Translations: [Essential (primary) hypertension] 05-24-2020 Chronic Meningitis (except that caused by tuberculosis or sexually transmitted disease) (1 source) Adhesive arachnoiditis; 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, unspecified] 09-28-2024 Episodic Osteoarthritis (10 sources) Osteoarthritis; Translations: [Unspecified osteoarthritis, [...] abnormal findings of blood chemistry] 05-24-2020 Episodic Other upper respiratory infections (2 sources) Chronic maxillary sinusitis; Translations: [Chronic maxillary sinusitis] 12-19-2024 Chronic Residual codes; unclassified (4 sources) Patient encounter status; Translations: [Encounter for prophylactic measures, unspecified] 05-24-2020 Episodic Residual codes; unclassified (4 sources) History of operative procedure on lumbar spinal structure; Translations: [Other specified postprocedural states] 05-24-2020 Episodic Residual codes; unclassified (2 sources) Olfactory hallucinations; Translations: [Other hallucinations] 12-19-2024 Episodic Spondylosis; intervertebral disc disorders; other back problems (19 sources) Inflammation of sacroiliac joint; Translations: [Sacroiliitis, not elsewhere classified] Onset: 01-07-2022 Chronic Spondylosis; intervertebral disc disorders; other back problems (17 sources) Lumbar radiculopathy; Translations: [Radiculopathy, lumbar region] [...] Test Name Value Interpretation Reference Range Facility [facility] 06-22-2024 [facility] Telephone (NIQ) KIM HILL ([id number]) 1970 F Date Time Provider Department 06/22/24 JOELLE SARMIENTO During your visit today, we recorded the following information about you: Marta Walker 06/22/2024 9:51 AM Signed Pt called asking for orders informed by MD on OV 06/16/24. Discussed with patient will order CT and EMG as well as standing xray Pls send MyC msg once orders are ready so that Pt can schedule. Ness Corbett RN 06/23/2024 11:12 AM Signed Neuro SPINE CARE COORDINATION QUICK NOTE Called patient, no answer. Left non-detailed VM on non-identified VM box instructing patient to call office or check MYC messages for details. Ness Corbett RN June 23, 2024 11:12 AM Allergies As of Date: 06/22/2024 Noted Allergy Reaction PENICILLINS 06/09/2024 2 - Rash 6 - Diarrhea Date Reviewed: 06/09/2024 Reviewed by: Olive Ross OCCA - Fully Assessed Reason for Visit: Orders [681] Primary Visit Diagnosis:Radiculopathy of lumbar region [M54.16] Other Visit Diagnoses:Spinal stenosis of lumbar region without neurogenic claudication [M48.061] Right foot drop [M21.371] Order(s):CT LUMBAR SPINE WO IVCON [[id number]] Order #: [id number] FUTURE EMG(NEURO/NI) [[id number]] Order #: [id number]: 1 FUTURE XR LUMBAR MOTION 4V AP/LAT/ FLEX/EXT [[id number]] Order #: [id number] FUTURE Prescriptions as of 06/23/2024 - gabapentin (NEURONTIN) 600 mg tablet Take [...] mg by mouth daily at bedtime. - kzobfokbtfr-vkgrkiyix-d ilanter (TRELEGY ELLIPTA) 100-62.5-25 mcg inhalation powder Inhale 1 Puff as instructed once daily. - cefdinir (OMNICEF) 300 mg capsule Take 300 mg by mouth two times a day. - albuterol-budesonide HFA (AIRSUPRA) 90-80 mcg/actuation inhaler Inhale 2 Puffs as instructed. Do not take more than 12 inhalations in a 24 hour period. Problem List As Of Date: 06/22/2024 (None) Encounter Status:Closed by KENAN GODOY on 06/23/24 [facility] 06-09-2024 [facility] Office Visit (SPNSMN ) KIM HILL ([id number]) 1970 F Date Time Provider Department 06/09/24 4:00 PM JOELLE SARMIENTO SPNSMN During your visit today, we recorded the following information about you: Pulse Blood pressure Weight Height 92/minute 104/52 98 kg 1.6 m Joelle Sarmiento MD 06/16/2024 5:55 PM Signed Rescheduled, no charge Referring Provider: ABY MARK [[id number]] Allergies As of Date: 06/09/2024 Noted Allergy Reaction PENICILLINS 06/09/2024 2 - Rash 6 - Diarrhea Date Reviewed: 06/09/2024 Reviewed by: Olive Ross OCCA - Fully Assessed Reason for Visit: New Patient [172] New Patient Evaluation [154] Cmt: Postop complications from prior surgery outside [facility] Primary Visit Diagnosis:Chronic bilateral low back pain [...] mg by mouth daily at bedtime. - hrzrlpogqkc-qjahcotqf-g ilanter (TRELEGY ELLIPTA) 100-62.5-25 mcg inhalation powder [...] Status:Closed by JOELLE SARMIENTO on 06/16/24 Normal [facility] MRI Lumbar Spine w/o + w/on [...] by Justice Lucas on 07/31/2022 0915 Normal [facility] [employer]ile Setter Automated erythrocytes count in urine sediment (number/area)Ordered By: Paresh Tian on 07-16-2022 RBC Auto (Urine sed) [#/Area] 1-2 [HPF] 0-4 [facility] Automated leukocytes count i n urine sediment (number/area)Ordered By: Paresh Tian on 07-16-2022 WBC Auto (Urine sed) [#/Area] 20-49 [HPF] 0-4 [facility] Basophils Auto (Bld) [#/Vol] Ordered By: Paresh Tian on 07-16-2022 Basophils (Bld) [#/Vol] 0.0 10*3/uL 0.0-0.2 [facility] Basophils/100 WBC Auto (Bld) Ordered By: Paresh Tian on 07-16-2022 Basophils/100 WBC (Bld) 0.4 % . [facility] Bilirubin Test strip Ql (U)O rdered By: Paresh Tian on 07-16-2022 Bilirubin Ql (U) Negative Negative [facility] C reactive protein [Mass/vol ume] in Serum or PlasmaOrdered By: Paresh Tian on 07-16-2022 CRP [Mass/Vol] 0.8 mg/dL 0.0-1.0 [facility] Color Auto (U)Ordered By: Afia Tian on 07-16-2022 Color (U) Yellow Yellow [facility] Creatinine and Glomerular fi ltration rate.predicted panel (S/P/Bld)Ordered By: Paresh Tian on 07-16-2022 Creatinine [Mass/Vol] 0.74 mg/dL 0.44-1.03 [facility] Eosinophils Auto (Bld) [#/Vo l]Ordered By: Paresh Tian on 07-16-2022 Eosinophils (Bld) [#/Vol] 0.1 10*3/uL 0.0-0.45 [facility] Eosinophils/100 WBC Auto (Bl d)Ordered By: Paresh Tian on 07-16-2022 Eosinophils/100 WBC (Bld) 1.1 % . [facility] Erythrocyte distribution wid th Auto (RBC) [Ratio]Ordered By: Paresh Tian on 07-16-2022 Erythrocyte distribution width (RBC) [Ratio] 13.0 % 11.9-15.3 [facility] Erythrocyte sedimentation ra te by Photometric methodOrdered By: Paresh Tian on 07-16-2022 ESR Photometric method (Bld) [Velocity] 45 mm/hr 0-29 [facility] Estimated glomerular filtrat ion rate (GFR) non- AmericanOrdered By: Paresh Tian on 07-16-2022 GFR/1.73 sq M.predicted among non-blacks MDRD (S/P/Bld) [Vol rate/Area] > 60 mL/Min [facility] Hematocrit Auto (Bld) [Volum e fraction]Ordered By: Paresh Tian on 07-16-2022 Hematocrit (Bld) [Volume fraction] 45.3 % 34.0-46.4 [facility] Hemoglobin [Mass/volume] in BloodOrdered By: Paresh Tian on 07-16-2022 Hemoglobin (Bld) [Mass/Vol] 15.2 g/dL 11.8-15.4 [facility] Ketones Auto test strip (U) [Mass/Vol]Ordered By: Paresh Tian on 07-16-2022 Ketones (U) [Mass/Vol] Negative Negative [facility] - UrinalysisOrder ed By: Paresh Tian on 07-16-2022 Hyaline casts LM Ql (Urine sed) 0-8 [LPF] 0-8 [facility] Leukocytes [#/volume] correc scot for nucleated erythrocytes in Blood by Automated counOrdered By: Paresh Tian on 07-16-2022 WBC corrected for nucl RBC Auto (Bld) [#/Vol] 10.4 10*3/uL 3.8-11.6 [facility] Lymphocytes Auto (Bld) [#/Vo l]Ordered By: Paresh Tian on 07-16-2022 Lymphocytes (Bld) [#/Vol] 3.7 10*3/uL 1.00-4.8 [facility] Lymphocytes/100 WBC Auto (Bl d)Ordered By: Paresh Tian on 07-16-2022 Lymphocytes/100 WBC (Bld) 35.0 % . [facility] MCH Auto (RBC) [Entitic mass ]Ordered By: Paresh Tian on 07-16-2022 MCH (RBC) [Entitic mass] 33.8 pg 24.7-34.3 [facility] MCHC Auto (RBC) [Mass/Vol]Or dered By: Paresh Tian on 07-16-2022 MCHC (RBC) [Mass/Vol] 33.6 g/dL 32.0-35.0 [facility] MCV Auto (RBC) [Entitic vol] Ordered By: Paresh Tian on 07-16-2022 MCV (RBC) [Entitic vol] 100.6 fL 80-100 [facility] Mitotic spindle apparatus Ab [Titer] in Serum or Plasma by ImmunofluorescenceOrdered By: Paresh Tian on 07-16-2022 Mitotic spindle apparatus Ab IF [Titer] 1:160 . [facility] Comment on above: ICAP nomenclature: A C-25,26 Monocytes Auto (Bld) [#/Vol] Ordered By: Paresh Tian on 07-16-2022 Monocytes (Bld) [#/Vol] 0.7 10*3/uL 0.0-0.8 [facility] Monocytes/100 WBC Auto (Bld) Ordered By: Paresh Tian on 07-16-2022 Monocytes/100 WBC (Bld) 6.8 % . [facility] Neutrophils Auto (Bld) [#/Vo l]Ordered By: Paresh Tian on 07-16-2022 Neutrophils (Bld) [#/Vol] 5.9 10*3/uL 1.8-7.7 [facility] Neutrophils/100 WBC Auto (Bl d)Ordered By: Paresh Tian on 07-16-2022 Neutrophils/100 WBC (Bld) 56.7 % . [facility] Nitrite Test strip Ql (U)Ord ered By: Paresh Tian on 07-16-2022 Nitrite Ql (U) Negative Negative [facility] No Panel InformationOrdered By: Paresh Tian on 07-16-2022 Anti-Nuclear Antibody Comment 2 See comment . [facility] Comment on above: For more information about Hep-2 cell patterns useTicieserCirroSecure.Matchpin, the official website for the [employer] on Antinuclear Antibody (ASTER) Patterns (ICAP). --------A positive ASTER result may occur in healthy individuals (lowtiter) or be associated with a variety of diseases. Seeinterpretation chart which is not all inclusive:Pattern Antigen Detected Suggested Disease Association Homogeneous DNA(ds,ss), SLE - High titers Nucleosomes, Histones Drug-induced SLE Speckled Sm, LOGISTICS ASSISTANT, SCL-70, SLE,MCTD,PSS (diffuse form), SS-A/SS-B Sjogrens Nucleolar SCL-70, PM-1/SCL High titers Scleroderma, PM/DM Centromere Centromere PSS (limited form) w/Crest syndrome variable Nuclear Dot Sp100,f80-fctanu Primary Biliary Cirrhosis Nuclear GP210, Primary Biliary CirrhosisMembrane kailyn A,B,C Performed at: [facility] [place], [place] [id number] Director: Collin Rodriguez PhD, Phone: [phone] Estimated GFR () > 60 mL/Min [facility] Comment on above: GFR estimated refere nce range: According to KDOQI guidelines, <60 ml/min/1.73m2 is sufficient to diagnose a patient with chronic kidney disease. Pharmacy Creatinine Clearance (Chem N/A [facility] Total Complement (CH50) >60 U/mL >41 [facility] Comment on above: Age Male Female [...] to determine out of range values.Performed at: [employer] [place], [place] [id number] Director: Collin Rodriguez PhD, Phone: [phone] Nucleated erythrocytes [Pres ence] in Blood by Automated countOrdered By: Paresh Tian on 07-16-2022 Nucleated RBC Auto Ql (Bld) 0.1 /100{WBC} 0-0.5 [facility] Platelet mean volume Auto (B ld) [Entitic vol]Ordered By: Paresh Tian on 07-16-2022 Platelet mean volume (Bld) [Entitic vol] 8.4 fL 6.3-10.7 [facility] Platelets Auto (Bld) [#/Vol] Ordered By: Paresh Tian on 07-16-2022 Platelets (Bld) [#/Vol] 242 10*3/uL 150-450 [facility] Protein Auto test strip (U) [Mass/Vol]Ordered By: Paresh Tian on 07-16-2022 Protein (U) [Mass/Vol] Negative Negative [facility] RBC Auto (Bld) [#/Vol]Ordere d By: Paresh Tian on 07-16-2022 RBC (Bld) [#/Vol] 4.50 10*6/uL 3.60-5.00 [facility] Serum homogeneous pattern an tinuclear antibody (ASTER) titerOrdered By: Paresh Tian on 07-16-2022 Homogenous nuclear Ab pattern (S) [Titer] N/A [facility] Serum nuclear antibody titer Ordered By: Paresh Tian on 07-16-2022 Nuclear Ab (S) [Titer] Positive . [facility] Comment on above: Negative <1:80 Ramiro leblanc 1:80 Positive >1:80 Serum or plasma complement C 3 measurement (mass/volume)Ordered By: Paresh Tian on 07-16-2022 Complement C3 [Mass/Vol] 197 mg/dL 82-167 [facility] Comment on above: Performed at: [place] [id number] Director: Collin Rodriguez PhD, Phone: [phone] Serum or plasma complement C 4 measurement (mass/volume)Ordered By: Paresh Tian on 07-16-2022 Complement C4 [Mass/Vol] 42 mg/dL 12-38 [facility] Specific gravity Auto test s trip (U) [Rel density]Ordered By: Paresh Tian on 07-16-2022 Specific gravity (U) [Rel density] 1.018 1.001-1.03 0 [facility] Squamous epithelial cells de tection in urine sediment by light microscopyOrdered By: Paresh Tian on 07-16-2022 Epithelial cells.squamous LM Ql (Urine sed) 0-1 [HPF] 0-2 [facility] Urine bacteria detection by automated methodOrdered By: Paresh Tian on 07-16-2022 Bacteria Auto Ql (U) 4+ None Seen [facility] Urine clarity by refractomet ry automatedOrdered By: Paresh Tian on 07-16-2022 Clarity Refractometry automated (U) Clear Clear [facility] Urine culture routineOrdered By: Paresh Tian on 07-16-2022 Bacteria identified Cx Nom (U) Escherichia coli [facility] Urine glucose measurement by automated test strip (mass/volume)Ordered By: Paresh Tian on 07-16-2022 Glucose Auto test strip (U) [Mass/Vol] Normal mg/dL Normal [facility] Urine hemoglobin detection b y automated test stripOrdered By: Paresh Tian on 07-16-2022 Hemoglobin Auto test strip Ql (U) Negative Negative [facility] Urine leukocyte esterase det ection by automated test stripOrdered By: Paresh Tian on 07-16-2022 Leukocyte esterase Auto test strip Ql (U) 3+ Negative [facility] Urobilinogen Auto test strip (U) [Mass/Vol]Ordered By: Paresh Tian on 07-16-2022 Urobilinogen (U) [Mass/Vol] Normal mg/dL Normal [facility] WBC Auto (Bld) [#/Vol]Ordere d By: Paresh Tian on 07-16-2022 WBC (Bld) [#/Vol] 10.4 10*3/uL 3.8-11.6 [facility] pH Auto test strip (U)Ordere d By: Paresh Tian on 07-16-2022 pH (U) 6.5 [pH] 5.0-9.0 [facility] XR HIPS ZEINA 3_4V WO PELVISon 05-15-2022 [...] DASHA KHAN Date: 2022-05-15 07:49 Normal [facility] Covid-19 PCR (CVDTB)on SARS-CoV-2 (COVID-19) RNA AMBERLY+probe Ql (Unsp spec) Not detected Normal NOT DETECTED [facility] Comment on above: Result Comment: This test is not yet approved or cleared by the [place] FDA. When there are no FDA-approved or cleared tests available, and other criteria are met, FDA can make tests available under an emergency access mechanism called an Emergency Use Authorization (EUA). The EUA for this test is supported by the Topographical Surveyor of Health and Human Service's (HHS's) declaration [...] consistent with SARS-CoV-2. Performed By: #### [facility] #### [facility] [address] [place] [address] Dr. Narendra Jacobsen COVID-19 Positive/NegativeOr dered By: Baljinder Rausch on 01-31-2022 SARS-CoV-2 (COVID-19) N gene AMBERLY+probe Ql (Resp) Negative Negative [facility] Comment on above: Testing for SARS-CoV -2 by RT-PCR This test was developed and its performance characteristics determined by [employer] ([employer]) and validated at the [facility]. This test has not been FDA cleared [...] 05-20-2020 COVID-19 Positive/Negative Negative Negative [facility] Comment on above: Testing for SARS-CoV -2 by RT-PCRThis test was developed and its performance characteristics determined by [employer] ([employer]) and validated at the [facility]. This test has not been FDA cleared [...] Otheron 05-20-2020 Coronavirus 2019 PCR Interp N/A [facility] Automated basophil %on 05-14 Basophils/100 WBC (Bld) 0.5 % F [facility] Automated basophil counton 1 07-15-2019 Basophils (Bld) [#/Vol] 0.0 10*3/uL 0.0-0.2 [facility] Automated blood lymphocyte c ount (number/volume)on 05-14-2020 Lymphocytes (Bld) [#/Vol] 2.8 10*3/uL 1.00-4.8 [facility] Automated blood lymphocyte c ount as percentage of total leukocyteson 05-14-2020 Lymphocytes/100 WBC (Bld) 35.0 % [facility] Automated blood monocyte cou nton 05-14-2020 Monocytes (Bld) [#/Vol] 0.6 10*3/uL 0.0-0.8 [facility] Automated blood platelet cou nt (count/volume)on 05-14-2020 Platelets (Bld) [#/Vol] 225 10*3/uL 150-450 [facility] Automated blood platelet jose n volume measurementon 05-14-2020 Platelet mean volume (Bld) [Entitic vol] 8.2 fL 6.3-10.7 [facility] Automated eosinophil %on Eosinophils/100 WBC (Bld) 1.5 % [facility] Automated eosinophil counton 05-14-2020 Eosinophils (Bld) [#/Vol] 0.1 10*3/uL 0.0-0.45 [facility] Automated erythrocyte distri bution width ratioon 05-14-2020 Erythrocyte distribution width (RBC) [Ratio] 12.3 % 11.9-15.3 [facility] Automated erythrocyte mean c orpuscular hemoglobin (mass per erythrocyte)on 05-14-2020 MCH (RBC) [Entitic mass] 35.2 pg 24.7-34.3 [facility] Automated erythrocyte mean c orpuscular hemoglobin concentration measurement (mass/volon 05-14-2020 MCHC (RBC) [Mass/Vol] 34.2 g/dL 32.0-35.0 [facility] Automated erythrocyte mean c orpuscular volumeon 05-14-2020 MCV (RBC) [Entitic vol] 102.9 fL 80-[address] [facility] Automated monocyte %on 05-14 Monocytes/100 WBC (Bld) 7.0 % F [facility] Automated neutrophil %on Neutrophils/100 WBC (Bld) 56.0 % [facility] Blood erythrocytes automated count (number/volume)on 05-14-2020 RBC (Bld) [#/Vol] 4.08 10*6/uL 3.60-5.[address] [facility] Blood hemoglobin measurement (mass/volume)on 05-14-2020 Hemoglobin (Bld) [Mass/Vol] 14.3 g/dL 11.8-15.4 [facility] Blood leukocytes automated c ount (number/volume)on 05-14-2020 WBC (Bld) [#/Vol] 7.9 10*3/uL 4.5-11.0 [facility] Blood neutrophil count by au tomated method (number/volume)on 05-14-2020 Neutrophils (Bld) [#/Vol] 4.4 10*3/uL 1.8-7.7 [facility] Estimated glomerular filtrat ion rate (GFR) non- Americanon 05-14-2020 GFR/1.73 sq M predicted among non-blacks MDRD (S/P/Bld) [Vol rate/Area] mL/min/{1.73_m2} [facility] Hematocrit [Volume Fraction] of Blood by Automated counton 05-14-2020 Hematocrit (Bld) [Volume fraction] 41.9 % 34.0-46.4 [facility] Otheron 05-14-2020 GFR/1.73 sq M.predicted MDRD (S/P/Bld) [Vol rate/Area] mL/min/{1.73_m2} [facility] Comment on above: GFR estimated refere nce range: According to KDOQI guidelines, <60 ml/min/1.73m2 is sufficient to diagnose a patient with chronic kidney disease. Nucleated RBC/100 WBC (Bld) [Ratio] 0.1 % 0-0.5 [facility] Creatinine Clearance (Chem N/A [facility] Serum or plasma calcium octavio urement (mass/volume)on 05-14-2020 Calcium [Mass/Vol] 10.1 mg/dL 8.2-10.2 [facility] Serum or plasma chloride jose surement (moles/volume)on 05-14-2020 Chloride [Moles/Vol] 101 mmol/L 95-114 [facility] Serum or plasma creatinine m easurement with calculation of estimated glomerular filtron 05-14-2020 Creatinine [Mass/Vol] 0.60 mg/dL 0.44-1.03 [facility] Serum or plasma glucose octavio urement (mass/volume)on 05-14-2020 Glucose [Mass/Vol] 94 mg/dL 70-100 [facility] Comment on above: ADA recommended refe rence rangeRandom Glucose Reference Range is dependent on time and content of last meal. Glucose of more than 200 mg/dL in a nonstressed, ambulatory subject supports the diagnosis of Diabetes Mellitus. Serum or plasma potassium me asurement (moles/volume)on 05-14-2020 Potassium [Moles/Vol] 4.3 mmol/L 3.5-5.1 [facility] Serum or plasma sodium measu rement (moles/volume)on 05-14-2020 Sodium [Moles/Vol] 140 mmol/L 136-146 [facility] Serum or plasma total carbon dioxide measurement (moles/volume)on 05-14-2020 CO2 [Moles/Vol] 27.2 mmol/L 22.0-30.0 [facility] Serum or plasma urea nitroge n measurement (mass/volume)on 05-14-2020 Urea nitrogen [Mass/Vol] 7 mg/dL 9-23 [facility] Vital Signs Date Time Vital Sign Value Performing Clinician Facility 12-19-2024 15:03-0400 Body height 160 cm Renu Brandon MD Work Phone: [facility] 12-19-2024 15:03-0400 Body mass index (BMI) [Ratio] 41.1 kg/m2 Renu Brandon MD Work Phone: [facility] 12-19-2024 [id number] Body weight 105.23 kg Renu Brandon MD Work Phone: [facility] 12-19-2024 15:03-0400 Diastolic blood pressure 69 mm[Hg] Renu Brandon MD Work Phone: [facility] 12-19-2024 15:03-0400 Heart rate 96 /min Renu Brandon MD Work Phone: [facility] 12-19-2024 15:03-0400 Systolic blood pressure 115 mm[Hg] Renu Brandon MD Work Phone: [facility] 09-26-2024 14:59-0400 Body height 160 cm Joelle Sarmiento MD Work Phone: [facility] 09-26-2024 14:59-0400 Body mass index (BMI) [Ratio] 38.14 kg/m2 Joelle Sarmiento MD Work Phone: [facility] 09-26-2024 14:59-0400 Body weight 97.65 kg Joelle Sarmiento MD Work Phone: [facility] 09-26-2024 14:59-0400 Diastolic blood pressure 95 mm[Hg] Joelle Sarmiento MD Work Phone: [facility] 09-26-2024 14:59-0400 Heart rate 96 /min Joelle Sarmiento MD Work Phone: [facility] 09-26-2024 14:59-0400 Respiratory rate 16 /min Joelle Sarmiento MD Work Phone: [facility] 09-26-2024 14:59-0400 SaO2% (BldA) [Mass fraction] 98 % Joelle Sarmiento MD Work Phone: [facility] 09-26-2024 14:59-0400 Systolic blood pressure 155 mm[Hg] Joelle Sarmiento MD Work Phone: [facility] 08-17-2022 16:00-0400 Body height 160.02 cm Gina Blades Other [employer] Other 08-17-2022 16:00-0400 Body mass index (BMI) [Ratio] 40.56 kg/m2 Gina Blades Other [employer] Other 08-17-2022 16:00-0400 Body weight 103.87 kg Gina Blades Other [employer] Other 08-17-2022 16:00-0400 Diastolic blood pressure 82 mm[Hg] Gina Blades Other [employer] Other 08-17-2022 16:00-0400 Systolic blood pressure 126 mm[Hg] Gina Blades Other [employer] Other Encounters Encounter Date Encounter Type Care Provider Facility Start: 12-19-2024 End: 12-19-2024 Office outpatient new 45 minutes Renu Brandon MD Work Phone: [facility] Comment on above: Phantosmia (Primary Dx); Chronic maxillary sinusitis; History of MRSA infection Start: 12-19-2024 End: 12-19-2024 ambulatory RENU BRANDON Not Available Start: 12-19-2024 End: 12-19-2024 Bamboo flowsheet Renu Brandon MD Work Phone: [facility] Start: 12-19-2024 End: 12-19-2024 Bamboo flowsheet Renu Brandon MD Work Phone: [facility] Start: 09-26-2024 End: 09-26-2024 Patient encounter procedure Joelle Sarmiento MD Work Phone: [facility] [place] Comment on above: Spinal stenosis of c ervical region (Primary Dx); Lumbar radiculopathy; Adhesive arachnoiditis (HCC) Start: 09-26-2024 ambulatory JOELLE SARMIENTO Facil ity:[facility] Start: 08-28-2024 End: 08-28-2024 ambulatory Aaron Mosqueda MD Facility:[facility] Start: 06-22-2024 End: 06-23-2024 Telephone encounter Joelle Sarmiento MD Work Phone: Neurology Comment on above: Orders Start: 06-16-2024 End: 06-16-2024 ambulatory Joelle Sarmiento MD Work Phone: [facility] [place] Comment on above: Lumbar radiculopathy (Primary Dx) Start: 06-16-2024 End: 06-16-2024 Telemedicine consultation with patient Joelle Sarmiento MD Work Phone: [facility] [place] Start: 06-09-2024 ambulatory ABY MARK Fac ility:[facility] Start: 04-24-2024 End: 04-24-2024 ambulatory Aaron Mosqueda MD Facility:[facility] Start: 03-27-2024 End: 03-27-2024 ambulatory Aaron Mosqueda MD Facility:[facility] Start: 03-06-2024 End: 03-10-2024 Chart abstracting Joelle Sarmiento MD Work Phone: Neurology Start: 10-18-2023 End: 10-18-2023 ambulatory Aaron [facility]queda MD [facility] Start: 10-27-2022 ambulatory NARENDRANATH LAKSHMIPATHY . Facility:[facility] Start: 10-13-2022 End: 10-13-2022 ambulatory NARENDRANATH LAKSHMIPATHY . Facility:[facility] Start: 10-06-2022 End: 10-07-2022 ambulatory NARENDRANATH LAKSHMIPATHY . Facility:[facility] Start: 09-08-2022 End: 09-08-2022 ambulatory Gina Guerrero Other [facility] Other Start: 09-08-2022 Telephone encounter Gina Guerrero [facility] Start: 09-01-2022 End: 09-02-2022 ambulatory NARENDRANATH LAKSHMIPATHY . Facility:[facility] Start: 08-17-2022 End: 08-17-2022 Patient encounter procedure DO Roberto Roth Work Phone: [facility] Work Phone: Start: 08-17-2022 End: 08-17-2022 ambulatory DO Roberto Roth Work Phone: [facility] Work Phone: Start: 08-17-2022 Office outpatient ne w 45 minutes Gina Guerrero [facility] Start: 07-16-2022 End: 07-17-2022 ambulatory DO Roberto Roth Work Phone: [facility] Work Phone: Start: 07-16-2022 End: 07-16-2022 Patient encounter procedure DO Roberto Roth Work Phone: [facility] [address] Work Phone: Start: 07-03-2022 End: 07-03-2022 ambulatory DO Roberto Roth Work Phone: [facility] Work Phone: Start: 07-03-2022 End: 07-03-2022 Patient encounter procedure DO Roberto Roth Work Phone: [facility] [address] [place] Work Phone: Start: 06-23-2022 End: 06-23-[address] HOOD RAUSCH . Facility:[facility] Start: 05-29-2022 End: 05-30-[address] HOOD RAUSCH . Facility:[facility] Start: 05-14-2022 End: 05-15-2022 ambulatory ADA SINGH . Facility:[facility] Start: 03-12-2022 End: 03-13-[address] HOOD RAUSCH . Facility:[facility] Start: 02-13-2022 Encounter for preprocedural laboratory examination DR HOOD RAUSCH . [facility] Start: 02-10-2022 End: 02-10-[address] HOOD RAUSCH . Facility:[facility] Start: 02-06-2022 End: 02-07-[address] HOOD RAUSCH . Facility:[facility] Start: 02-06-2022 End: 02-07-2022 Encounter for preprocedural laboratory examination DR HOOD RAUSCH . Facility:[facility] Start: 02-03-2022 End: 02-03-[address] HOOD RAUSCH . Facility:[facility] Start: 01-31-2022 End: 01-31-2022 Patient encounter procedure DO Roberto Roth Work Phone: [facility] COVID Testing Start: 01-16-[address] HOOD RAUSCH . Faci lity:[facility] Start: 01-07-2022 End: 01-08-[address] HOOD RAUSCH . Facility:[facility] Start: 05-20-2020 End: 05-20-2020 Patient encounter procedure Roberto Roth -Pre-Surgical Testing Start: 05-14-2020 End: 05-14-2020 Patient encounter procedure Roberto Roth -Pre-Surgical Testing Start: 04-26-2020 End: 04-26-2020 Patient encounter procedure Roberto Roth -[facility] [place] Procedures Date Procedure Procedure Detail Performing Clinician Start: 07-16-2022 Urine culture DO Roberto reyes Work Phone: Start: 07-03-2022 X-ray of lumbar spin e, six views including bending views DO Roberto Roth Work Phone: Start: 04-26-2020 X-ray of lumbar spin e, four views Roberto Roth Plan of Treatment Date Care Activity Detail Author Start: 01-29-2025 [facility] Start: 01-23-2025 End: 01-23-2025 Patient encounter procedure 01/23/2025 3:20 PM EDT Office Visit [facility] [address] [facility] [address] [place] [id number] Renu Brandon MD [address] [facility] [address] [place] [address] [facility] Start: 12-19-2024 End: 12-19-2025 Aerobic culture Aerobic culture Microbiology Routine Phantosmia Expected: 12/19/2024 (Approximate), Expires: 12/19/2025 [facility] Work Phone: Comment on above: Expected: 12/19/2024 (Approximate), Expires: 12/19/2025 Start: 01-30-2024 Covid-19 Vaccine () Covid-19 Vaccine ( season) [facility] Start: 01-30-2024 Influenza vaccination Influenza Vacc ine (#1) [facility] Start: 08-17-2022 Plain X-ray of right hip XR hip RT min 2V(w/wo pelvis)* [facility] Start: 08-17-2022 XR Hip - right 2 Views [facility] Start: 07-16-2022 Bacteria identified in Urine by Culture [facility] Start: 07-16-2022 Hemolytic complement CH50 level [facility] Start: 07-16-2022 [facility] Start: 2018 Shingrix Vaccine (1 of 2) Shingrix Vaccine (1 of 2) [facility] Start: 2013 Diabetes Screening Diabetes Screenin g [facility] Start: 2013 Lipid panel Lipid Screening [facility] Start: 2013 Screening for malign ant neoplasm of colon [facility] Start: 2008 Screening for malign ant neoplasm of breast [facility] Start: 1998 Screening for malign ant neoplasm of cervix [facility] Start: 1989 Screening for malign ant neoplasm of cervix [facility] Start: 10-03-1987 Hepatitis B Vaccine (1 of 3 - 19+ 3-dose series) Hepatitis B Vaccine (1 of 3 - 19+ 3-dose series) [facility] Start: 10-03-1987 Pneumococcal Vaccine : 50+ (1 of 2 - PCV) Pneumococcal Vaccine: 50+ (1 of 2 - PCV) [facility] Start: 10-03-1987 Urine microalbumin profile DTaP,Tdap,Td Vaccine (1 - Tdap) [facility] Start: 1986 Anxiety Screening Anxiety Screening [facility] Start: 1986 Depression Screening Depression Scre ening [facility] Start: 1986 Hepatitis C screening Hepatitis C Sc reening [facility] Start: 1986 HIV screening HIV Screening [facility] Start: 1968 Screening for malign ant neoplasm of colon [facility] Complement C3 [Mass/volume] in Serum or Plasma [facility] Complement C4 [Mass/volume] in Serum or Plasma [facility] End: 07-23-2025 CT Lumbar spine WO contrast CT LUMBAR SPINE WO IVCON Radiology Routine Radiculopathy of lumbar region Spinal stenosis of lumbar region without neurogenic claudication 1 Occurrences starting 06/23/2024 until 07/23/2025 [facility] Work Phone: Comment on above: 1 Occurrences starti ng 06/23/2024 until 07/23/2025 End: 06-23-2025 EMG(NEURO/NI) EMG(NEURO/NI) EMG Routine Radiculopathy of lumbar region Spinal stenosis of lumbar region without neurogenic claudication Right foot drop 1 Occurrences starting 06/23/2024 until 06/23/2025 [facility] Comment on above: 1 Occurrences starti ng 06/23/2024 until 06/23/2025 Homogenous nuclear A b pattern [Titer] in Serum [facility] End: 10-26-2025 MR Cervical spine WO contrast MRI CERVICAL SPINE WO IVCON Radiology Routine Spinal stenosis of cervical region 1 Occurrences starting 09/26/2024 until 10/26/2025 [facility] Work Phone: Comment on above: 1 Occurrences starti ng 09/26/2024 until 10/26/2025 Nuclear Ab [Titer] i n Serum [facility] End: 07-23-2025 XR Lumbar spine Views W flexion and W extension XR LUMBAR MOTION 4V AP/LAT/ FLEX/EXT Radiology Routine Radiculopathy of lumbar region Spinal stenosis of lumbar region without neurogenic claudication 1 Occurrences starting 06/23/2024 until 07/23/2025 [facility] Comment on above: 1 Occurrences starti ng 06/23/2024 until 07/23/2025 Immunizations Immunization Date Immunization Notes Care Provider Jah dasilva 11-09-2020 COVID-19 mRNA-1273 (Moderna) DO Roberto Roth Work Phone: [facility] 10-12-2020 COVID-19 mRNA-1273 (Moderna) DO Roberto Roth Work Phone: [facility] 05-23-2020 influenza, injectabl e, quadrivalent, preservative free DO Roberto Roth Work Phone: [facility] 05-23-2020 influenza virus vaccine, unspecified formulation Joelle Sarmiento MD Work Phone: [facility] Payers Date Payer Category Payer [employer] [id number] 2023 Unknown [id number] 2023 Unknown [id number] 2022 Self-pay [id number] 1968 Unknown [id number] 2.16.84 0.1.154483.3.579.2.593 1968 Unknown [id number] 2.16.84 0.1.372085.3.579.2.593 1968 Unknown [id number] 2.16.84 0.1.547676.3.579.2.593 1968 Unknown [id number] 2.16.84 0.1.915644.3.579.2.593 1968 Unknown [id number] 2.16.84 0.1.047274.3.579.2.593 1968 Unknown [id number] 2.16.84 0.1.531421.3.579.2.593 1968 Unknown [id number] 2.16.84 0.1.613703.3.579.2.593 1968 Unknown [id number] 2.16.84 0.1.469740.3.579.2.593 1968 Unknown [id number] 2.16.84 0.1.687393.3.579.2.593 1968 Unknown [id number] 2.16.84 0.1.484040.3.579.2.593 1968 Unknown [id number] 2.16.84 0.1.366924.3.579.2.593 1968 Unknown [id number] 2.16.84 0.1.990033.3.579.2.593 1968 Unknown [id number] 2.16.84 0.1.617912.3.579.2.593 1968 Unknown [id number] 2.16.84 0.1.257419.3.579.2.593 1968 Unknown [id number] 2.16.84 0.1.642568.3.579.2.593 1968 Unknown [id number] 2.16. 840.1.153914.3.579.2.196 1968 Unknown [id number] 2.16. 840.1.946209.3.579.2.196 1968 Unknown [id number] 2.16. 840.1.947117.3.579.2.196 1968 Unknown [id number] 2.16. 840.1.426908.3.579.2.196 1968 Unknown [id number] 2.16.8 40.1.060427.3.579.2.1259 1959 Unknown [id number] Unknown [id number] Unknown [id number] 2.16.8 40.1.878276.3.579.2.531 Social History Date Type Detail Facility Start: 05-14-2020 End: 06-23-2021 Tobacco smoking status OKIS Smoker (finding) [facility] Start: 1970 Sex Assigned At Female [facility] Start: 06-09-2024 End: 12-19-2024 History of tobacco use [facility] Tobacco smoking stat us OKIS Tobacco smoking consumption unknown [facility] Start: 1970 Sex assigned at Not on file C [facility] Start: 06-09-2024 End: 12-19-2024 Tobacco smoking status OKIS Smokes tobacco daily [facility] History of tobacco use Cigarette Smoker C [facility] Start: 06-09-2024 End: 12-19-2024 Tobacco use and exposure Smokeless tobacco non-user [facility] Start: 06-09-2024 End: 12-19-2024 Alcoholic beverage intake Ex-drinker (finding) [facility] Start: 06-09-2024 End: 12-19-2024 History of Social function [facility] Adult Depression Screening Assessment 3 [facility] Medical Equipment Procedure Code Equipment Code Equipment Origin al Text Equipment Identifier Dates Fusion, spine, lumbar, XLIF CANCELLOUS COARSE 7.5CC FDA Start: 05-22-2020 Fusion, spine, lumbar, XLIF Bone-screw internal spinal fixation system, non-sterile ()[id number] FDA Start: 05-22-2020 Fusion, spine, lumbar, XLIF Bone-screw internal spinal fixation system, non-sterile ()[id number] FDA Start: 05-22-2020 Fusion, spine, lumbar, XLIF Bone-screw internal spinal fixation system, non-sterile ()[id number] FDA Start: 05-22-2020 Fusion, spine, lumbar, XLIF CANCELLOUS COARSE 7.5CC FDA Start: 05-22-2020 Fusion, spine, lumbar, XLIF Bone-screw internal spinal fixation system, non-sterile ()[id number] FDA Start: 05-22-2020 Fusion, spine, lumbar, XLIF Bone-screw internal spinal fixation system, non-sterile ()[id number] FDA Start: 05-22-2020 Fusion, spine, lumbar, XLIF Polymeric spinal fusion cage, non-sterile ()[id number] FDA Start: 05-22-2020 Fusion, spine, lumbar, XLIF Dura mater graft, bovine ()[id number] FDA Start: 05-22-2020 Fusion, spine, lumbar, XLIF MAS REDUCTION FIXATION ADD LEV FDA Start: 05-22-2020 Fusion, spine, lumbar, XLIF XLIF 1 LEVEL MAS REDUCTION FDA Start: 05-22-2020 Fusion, spine, lumbar, XLIF Spinal fusion graft kit ()[id number] FDA Start: 05-22-2020 Fusion, spine, lumbar, XLIF Bone matrix implant, human-derived ()[id number] FDA Start: 05-22-2020 Fusion, spine, lumbar, XLIF Metallic spinal fusion cage, non-sterile ()[id number] FDA Start: 05-22-2020 Fusion, spine, lumbar, XLIF Bone-screw internal spinal fixation system, non-sterile ()[id number] FDA Start: 05-22-2020 Fusion, spine, lumbar, XLIF [...] Desired Activity /State Clinical Notes 01-07-2022 to 12-19-2024 Renu Brandon MD - 12/19/2024 3:00 PM Joelle Sandhu MD - 09/26/2024 3:00 PM EDTTelephone Encounter - Ness Corbett RN - 06/23/2024 11:11 AM Marla Rdz - 03/06/2024 9:53 AM EDT Note Date & Type Note Facility 12-19-2024 History of Presen t illness Narrative Subjective Patient ID: Kim Hill is a 54 y.o. female who presents for Sinusitis Pt reports she has had a foul smell in the nose since having covid. Nose mayes at times. Tx with abx, but sx returned. CT sinus reviewed that shows near-total RT maxillary sinus opacification and a DNS to the left ant and RT post. Review of Systems All other systems reviewed and are negative. No family history on file. Active Ambulatory Problems Diagnosis Date Noted Hallux valgus (acquired), left foot 12/13/2024 Resolved Ambulatory Problems Diagnosis Date Noted No Resolved Ambulatory Problems No Additional Past Medical History No past surgical history on file. Allergies Allergen Reactions Amoxicillin-Pot Clavulanate Diarrhea Other Reaction(s): dizziness Penicillin G Rash No current outpatient medications on file prior to visit. No current facility-administered medications on file prior to visit. Objective Last Recorded Vitals There were no vitals filed for this visit. ENT Physical Exam Constitutional Appearance: patient appears well-developed, well-nourished and well-groomed, Head and Face Appearance: head appears normal and face appears atraumatic; Ear Ear Canals: right ear canal normal; left ear canal normal; Tympanic Membranes: right tympanic membrane normal; left tympanic membrane normal; Nose External Nose: nares patent bilaterally; external nose normal; Internal Nose: septum normal; Oral Cavity/Oropharynx Tongue: normal; Oral mucosa: normal; Hard palate: normal; Soft palate: normal; Tonsils: normal; Neck Neck: neck normal; neck palpation normal; Thyroid: thyroid normal; Respiratory Inspection: breathing unlabored; normal breathing rate; Auscultation: breath sounds are clear; Cardiovascular Inspection: extremities are warm and well perfused; no peripheral edema present; Auscultation: regular rate and rhythm; Patient ID: Kim Hill is a 54 y.o. female. Procedures A diagnostic nasal endoscopy was performed on the right. The endoscope was placed into the nose and a thorough inspection of internal nose including the septum skull base lateral nasal wall structures was performed. There is purulent drainage from the RT [facility]. Cx obtained Assessment/Plan Diagnoses and all orders for this visit: Chronic maxillary sinusitis Phantosmia Pt clearly has chronic maxillary sinus, but phantosmia may not be caused by it. Cx obtained to direct abx tx. I will tx with a one mo aggressive sinus regimen, including 4 weeks abx, nasal steroids, prednisone, antihistamines, and BID saline irrigations. If sinus sx persist, and pt has followed regimen, in one month I will obtain an IG CT sinus to evaluate for surgical pathology and plan surgical tx. documented in this encounter [facility] 09-26-2024 History of Presen t illness Narrative Images from the original note were not included. SPINE SURGERY ESTABLISHED This is an in-person visit. DATE OF SERVICE: 09/25/2024 DATE OF LAST VISIT: Visit date not found SUBJECTIVE: HPI:Kim Hill is a 53 year old female presenting to review her imaging. She has right leg pain and a right foot drop. She describes it as burning when she sits, stands, or walks. She is uncomfortable when she sits or stands. Laying is the most comfortable position. She had a prior surgery in 2019 for lumbar spine. The patient also mentions that she is having some neck pain. PAIN EVALUATION 09/25/2024 1535 09/26/2024 1457 Pain Level: 6 6 Pain Location: Back-Lower Back-Lower feet pain too Description: Aching;Burning;Numbness;Tinglin g Burning;Sharp;Aching Duration Amount of Time: -- 5 Duration Units: Minutes Years Frequency: Continuous Intermittent Intervention/Comfort measure: Medication;Reposition;Relaxatio n Medication;Heat;Cold;Therapeuti c techniques-CPRP Pain Radiation: down the right thigh, below the right knee, and to the right foot/feet Aggravating Factors: Standing, Walking, Walking upstairs, Walking downstairs, Sitting Alleviating Factors: Medications, Heat application, Cold application, Laying supine Pain Ratio: Pain in the back and leg(s) is equal AMBULATORY STATUS: Impaired Community Distances ANTIPLATELET OR ANTICOAGULATION STATUS: PREVIOUS CONSERVATIVE TREATMENTS: From abstract 03/23: Inj, gabapentin, meloxicam, voltaren cream, heat, mdp x1 [place] - 3x/dy REVIEW OF SYSTEMS: GENERAL: No weight loss or malaise MUSCULOSKELETAL: Negative for joint pain, swelling or muscle pain NEURO: No history of headaches, syncope, paralysis, seizures or tremors MEDICATIONS: gabapentin (NEURONTIN) 600 mg tablet Take 600 mg by mouth three times a day. hydrocodone/acetaminophen (NORCO ORAL) Take 7.5 mg by mouth three times a day. baclofen 10 mg tablet Take 10 mg by mouth two times a day. meloxicam (MOBIC) 15 mg tablet Take 15 mg by mouth once daily. lisinopril (ZESTRIL) 10 mg tablet Take 10 mg by mouth once daily. pantoprazole DR (PROTONIX) 40 mg tablet Take 40 mg by mouth once daily. montelukast (SINGULAIR) 10 mg tablet Take 10 mg by mouth daily at bedtime. mdruylgvkch-ychtoqfhv-anirdujq (TRELEGY ELLIPTA) 100-62.5-25 mcg inhalation powder Inhale 1 Puff as instructed once daily. cefdinir (OMNICEF) 300 mg capsule Take 300 mg by mouth two times a day. albuterol-budesonide HFA (AIRSUPRA) 90-80 mcg/actuation inhaler Inhale 2 Puffs as instructed. Do not take more than 12 inhalations in a 24 hour period. Patient Entered Questionnaires 06/15/2024 Spine Questions Pain Location: Lower back Pain Duration: 1 to 5 years Pain over last 6 months: Every day or nearly every day in the past 6 months Symptoms from neck/cervical spine: Yes Employment Status: Working now Involved in law suit/legal claim: No 06/15/2024 Neck Questionnaires Benzel Modified ZELDA Score 14 (Moderate Myelopathy Symptoms) PROMIS Score Percentiles 06/15/2024 Physical Health Physical Function Percentile 7 Sleep Percentile 12 Fatigue Percentile 24* Pain Interference Percentile 4 06/15/2024 PROMIS SOCIAL ROLE SCORE Social Role Satisfaction Percentile 24* 06/15/2024 PROMIS Global Health Scale Physical Health Percentile 10 Mental Health Percentile 19* Patient-reported Percentiles provide an indication of how the patient's score ranks in relation to the general population. Higher percentile rankings indicate better function/quality of life. 50th percentile is the average of the general population and indicates half of respondents had a worse score. Depression Screenin06/15/2024 PHQ-9 Score 9 06/15/2024 PHQ-9 Self-harm Question Question 9 Not at all PHQ-9 Self-Harm (Item 9) response options: 0 Not at all 1 Several days 2 More than half the days 3 Nearly every day PHQ-9 Levels: 0-4 No to mild depression 5-9 Mild depression 10-14 Moderate depression 15-19 Moderately severe depression 20-27 Severe depression OBJECTIVE: PHYSICAL EXAM: BP 155/95 Pulse 96 Resp 16 Ht 5' 3 (1.60m) Wt 215 lb 4.5 oz (97.7kg) SpO2 98% BMI 38.14 kg/(m^2). Right le/5 dorsiflexion 5/5 plantarflexion 5/5 inversion 5/5 EHL Left le/5 dorsiflexion 2cm scar upper lumbar spine Bilateral paraspinal incisions Well healed 6cm left sided lateral incision DATA REVIEW:Diagnostic tests reviewed for today's visit, films/specimens were personally reviewed by me: Images independently reviewed with the patient MRI lumbar spine from 2019: 2019 L4-5 disc height 9mm Intraoperative CT scan shows: LLIF cage with 17mm of height at the L4-5 level Posterior instrumentation L4-S1 Left displaced TLIF cage through a right sided approach Air in the thecal sac at non operative levels CT scan lumbar spine shows: Solid fusion L4-S1 MRI 2023 shows: No residual stenosis Right sided arachnoiditis L5-S1 ASSESSMENT/PLAN (M48.02) Spinal stenosis of cervical region (primary encounter diagnosis) (M54.16) Lumbar radiculopathy (G03.9) Adhesive arachnoiditis (HCC) Kim Hill has a condition that requires further workup. I suspect nerve retraction injury or over distraction leading to chronic leg pain in addition to arachnoiditis. Follow up with EMG and will most likely recommend spinal cord stimulation. The patient would like to have a cervical MRI to see if there are problems in the neck area, and I have ordered this. 1. Obtain additional imaging 2. Follow up: Following above Imaging Ordered: MRI cervical spine wo ivcon I spent 30 minutes in the visit, with more than 50% of the total aruu-og-wgwh time of the visit in counseling / coordination of care. SIGNATURE: Joelle Sarmiento MD PATIENT NAME: Kim Hill DATE: September 25, 2024 TIME: 3:07 PM PAGER: By signing my name below, I, Ernestina Albert, attest that this documentation has been prepared under the direction and in the presence of Dr. Sarmiento Electronically signed, Ernestina MononaMonae powers September 25, 2024 3:08 PM documented in this encounter [facility] 06-23-2024 Telephone encounter Note Neuro SPINE CARE COORDINATION QUICK NOTE Called patient, no answer. Left non-detailed VM on non-identified VM box instructing patient to call office or check MYC messages for details. Ness Corbett RN June 23, 2024 11:12 AM [facility] 06-23-2024 Miscellaneous Notes Neuro SPINE CARE COORDINATION [...] this encounter [facility] 06-22-2024 Telephone encounter Note Pt called asking for orders informed by on OV 06/16/24. Discussed with patient will order CT and EMG as well as standing xray Pls send MyC msg once orders are ready so that Pt can schedule. [facility] 06-16-2024 Note HNO ID: [id number] Author: JOELLE SARMIENTO MD Service: ? Author Type: Physician Type: Progress Notes Filed: 06/16/2024 17:55 Note Text: Rescheduled, no charge [facility] 06-16-2024 Note HNO ID: [id number] Author: JOELLE SARMIENTO MD Service: ? Author Type: Physician Type: Progress Notes Filed: 06/16/2024 09:36 Note Text: I have communicated my name and active licensure. The patient's identity and physical location were verified at the time of this visit. Either the patient or their legal client account representative has been informed of the risks [...] with more than 50% of the total bmos-gk-vuzo time of the visit in counseling / coordination of care. [facility] 06-16-2024 History of Presen t illness Narrative I have communicated my name and active licensure. The patient's identity and physical location were verified at the time of this visit. Either the patient or their legal client account representative has been informed of the risks [...] with more than 50% of the total sjub-jq-jqfs time of the visit in counseling / coordination of care. documented in this encounter [facility] 03-10-2024 Note HNO ID: [id number] Author: KENAN GODOY APRN.EPIC SPECIALIST Service: ? Author Type: Nurse Practitioner Type: [...] gabapentin, meloxicam, voltaren cream, heat, mdp x1 [place] - 3x/dy Studies (Reports unless indicated) Mri lumbar report Lumbarization S1 S/p :L4-S1 fusion L5/S1 mod b/l FS S1/2 paraspinal muscle mod to severe atrophy Disposition: Please schedule with dr sarmiento if patient would like soon can schedule with myself. Please instruct patient to bring copy of imaging and injection history for review. [facility] 03-10-2024 History of Presen t illness [...] gabapentin, meloxicam, voltaren cream, heat, mdp x1 [place] - 3x/dy Studies (Reports unless indicated) Mri lumbar report Lumbarization S1 S/p :L4-S1 fusion L5/S1 mod b/l FS S1/2 paraspinal muscle mod to severe atrophy Disposition: Please schedule with dr sarmiento if patient would like soon can schedule with myself. Please instruct patient to bring copy of imaging and injection history for review. Patient name: iKm Hill Are you being referred by a [facility] Provider or Pain Management Provider at [facility]? No If answer is YES [...] the facility where the MRI/CT/myelogram was completed: [place] [address] MRI/CT/myelogram viewable in Epic: No If not, please provide [phone] to fax in imaging reports for review. Also, please inform patient to hand carry imaging disc to appointment. XR (spine) within 12 months: Yes If YES, please ask for the name/address of the facility where the XR was completed: [place] [address] Dr. Freeman's patients: Have you had previous [...] therapy was completed INJ - Pain mgmt [place] [facility] [place] [address] Have you tried any other kinds of non-surgical treatments in the last 12 months? (For example: NSAIDS, muscle relaxants, analgesics, oral steroids, Chiropractor, Acupuncture): gabapentin, meloxicam, voltaren cream, heat, mdp x1 4. Are you currently taking daily prescribed narcotic medications for your current symptoms (For example Oxycodone, Hydrocodone, Tramadol, Morphine, Other)? Yes [place] - 3x/dy 5. Have you had previous spinal surgery for this same symptoms? Yes If YES please ask for the name of facility/address of where the surgery was completed: 2019 [facility] - cages Additional Comments [phone] documented in this encounter [facility] 03-06-2024 Note HNO ID: [id number] Author: ?, ?, ? Service: ? Author Type: ? Type: Progress Notes Filed: 03/10/2024 16:07 Note Text: Patient name: Kim Hill Are you being referred by a [facility]ine Health Provider or Pain Management Provider at [facility]? No If answer is YES please schedule directly with surgeon, triage does not need to be completed. Is this a self-referral No If not, who is the Referring Provider Dr Aby aMrk Is this a 2nd opinion from another spine surgeon? Yes Were you offered surgery? No MRI/CT/myelogram within 12 months? Yes If NO , please refer to medical spine or PCP to complete above imaging, triage does not need to be completed If YES,? please ask for the name/address of the facility where the MRI/CT/myelogram was completed: [place] [address] MRI/CT/myelogram viewable in Epic: No If not, please provide [phone] to fax in imaging reports for review. Also, please inform patient to hand carry imaging disc to appointment. XR (spine) within 12 months: Yes If YES,? please ask for the name/address of the facility where the XR was completed: [place] [address] Dr. Freeman's patients: Have you had previous [...] therapy was completed [place]J [place] [address] Have you tried any other kinds of non-surgical treatments in the last 12 months? (For example: NSAIDS, muscle relaxants, analgesics, oral steroids, Chiropractor, Acupuncture): gabapentin, meloxicam, voltaren cream, heat, mdp x1 4. Are you currently taking daily prescribed narcotic medications for your current symptoms (For example Oxycodone, Hydrocodone, Tramadol, Morphine, Other)? Yes [place] - 3x/dy 5. Have you had previous spinal surgery for this same symptoms? Yes If YES? please ask for the name of facility/address of where the surgery was completed: [facility] - 2 cages Additional Comments [phone] [facility] 10-06-2022 Note CONSULTATION CONSULTATION DATE: [...] pill b.i.d. and to continue to use [place] 7.5 mg t.i.d. We did reduce the use at her last visit from 90 pills a month to 80 pills to last one month's time. She appears to be tolerating this transition quite well. I have asked her to continue with gabapentin 600 mg t.i.d. Her JOYCE on today's visit is 28. She reports the [place] does improve her quality of life, level of functioning and sleep pattern, and she denies any side effects. As part of providing excellent, safe, comprehensive care, the following was completed at our patient's visit: 1. A medication reconciliation and review to ensure accurate knowledge of current/active medications, including asking our patients to inform us about any bvyx-upx-bimtwkm medications or herbal remedies/nutritional supplements/alternative remedies. 2. [...] options with their primary care provider. [facility] 09-01-2022 Note CONSULTATION CONSULTATION DATE: 09/01/2022 [...] our patients to inform us about any jhdy-qqh-bdbsmbs medications or herbal remedies/nutritional supplements/alternative remedies. 2. [...] options with their primary care provider. [facility] 08-17-2022 Evaluation note Encounter Date Diagnosis Assessment Notes Jul, Other chronic pain (ICD-10 - G89.29) Jul, Low back pain, unspecified (ICD-10 - M54.50) [employer] Other 02-16-2023 NoteCONSULTATION CONSULTATION DATE: 07/16/2022 HISTORY OF PRESENT ILLNESS: This is a 51-year-old female who returns to the clinic status post bilateral SI joint injection completed on 06/23/2022. The patient received 80% relief for one day and on day two felt worse than her normal baseline pain. Today, she rates her pain 8/10. Medications include gabapentin 600 mg t.i.d., [place] 7.5/325 b.i.d. and Mobic 15 mg daily. [...] her medications; Mobic 15 mg daily and [place] 7.5/325 b.i.d. She will return to the clinic in six weeks' time, in which we will, in addition to her PCPs office, review the MRI and form a plan of care at that time. Patient is in agreement to this plan.[facility] [id number] Note CONSULTATION CONSULTATION DATE: 05/29/2022 HISTORY OF [...] down. Medications include gabapentin 600 mg t.i.d., [place] 7.5/325 b.i.d. and diclofenac 50 mg daily. [...] care and will be followed up thereafter.[facility] [id number] NoteCONSULTATION CONSULTATION DATE: 05/14/2022 HISTORY OF PRESENT [...] as well as gabapentin 600 mg t.i.d., [place] 7.5/325 t.i.d. At her last appointment, she [...] Refills for gabapentin 600 mg t.i.d. and [place] 7.5/325 b.i.d. will be sent to her pharmacy. Patient agrees to move forward with the procedure. She will followed up in the clinic thereafter.[facility] [id number] NotePAIN MANAGEMENT CONSULTATION CONSULTATION DATE: 05/14/2022 CHIEF [...] with a sacroiliac joint injection under fluoroscopy.[facility] [id number] NoteCONSULTATION CONSULTATION DATE: 03/12/2022 ADDENDUM DIAGNOSIS: Lumbar spondylosis, lumbar degenerative disc disease, chronic lower back pain and a history of a lumbar fusion.[facility] [id number] Note CONSULTATION CONSULTATION DATE: 03/12/2022 This is [...] Current medications include gabapentin 600 mg t.i.d., [place] 7.5/325 b.i.d., diclofenac cream and ibuprofen. She [...] with her vitamins as well as her [place]. The dose of frequency will not be changed. We will have the patient return to the clinic in two months' time for re-evaluation. The patient is inquiring about an increase of her [place], possibly during the winter months. There will be no changes today.[facility] [id number] NoteCONSULTATION CONSULTATION DATE: 01/07/2022 This is a [...] Current medications include gabapentin 600 mg b.i.d., [place] 7.5/325 b.i.d., diclofenac topical, multivitamin regimen and ibuprofen p.r.n. She has tried diclofenac in the past but was unable to tolerate it due to stomach issues but low-dose ibuprofen she can tolerate. She is needing [place] and gabapentin refill today. REVIEW OF SYSTEMS, [...] subsequently move to the left. Refill for [place] 7.5/325 b.i.d. and gabapentin 600 mg b.i.d. will be sent to the pharmacy. The patient is encouraged to increase magnesium in her vitamin regimen as well as menthol heat rub, seated stretches that were demonstrated and heat application. The patient agrees with the plan of care and would like to move forward and she will follow-up in the clinic post procedure.[facility] HospitalEvaluation noteNo assessment information availableCleveland Clinic [facility] Work Phone: Evaluation noteNo InformationNort ROVOP Other evaluation note* Diagnosis Lumbar radiculopathy- Primary Thoracic or lumbosacral neuritis or radiculitis, unspecified [facility] Diagnosis Radiculopathy of lumbar region- Primary Thoracic or lumbosacral neuritis or radiculitis, unspecified Spinal stenosis of lumbar region without neurogenic claudication Spinal stenosis, lumbar region, without neurogenic claudication Right foot drop Other acquired deformity of ankle and foot documented in this encounter [facility] note* Diagnosis Spinal stenosis of cervical region- Primary Spinal stenosis in cervical region Lumbar radiculopathy Thoracic or lumbosacral neuritis or radiculitis, unspecified Adhesive arachnoiditis (HCC) Meningitis, unspecified [facility]* Diagnosis Phantosmia- Primary Chronic maxillary sinusitis History of MRSA infection [facility] N[facility]ative - Reported* Type Description Date Medical History osteoarthritis Medical History rheumatoid arthritis Medical History carpal tunnel Medical History fibromyalgia Medical History hypertension Medical History Arthritis Medical History asthma Medical History obesity Medical History pneumonia Medical History anxiety Surgical History hysterectomy 01/2012 Surgical History back surgery Surgical History left middle finger surgery Hospitalization History see above Hospitalization History 4 child births Aline ROVOP Other reason for referral (narrative)* Diagnostic Procedure Only (Routine) - New Request Specialty Diagnoses / Procedures Referred By Claritza schumacher Referred To Contact XR IMAGING Diagnoses Radiculopathy of lumbar region Spinal stenosis of lumbar region without neurogenic claudication Procedures XR LUMBAR MOTION 4V AP/LAT/ FLEX/EXT RADEX SPINE LUMBOSACRAL MINIMUM 4 VIEWS Kenan Godoy APRN.EPIC SPECIALIST [address] [place] [address] X[facility] Imaging [place] [address] Referral ID Status Reason Start Date Expiration Date Visits Requested Visits Authorized [id number] New Request Auto-Generat ed Referral 06/23/2024 07/23/2025 1 1 * Outpatient Procedure (Routine) - New Request Specialty Diagnoses / Procedures Referred By Claritza schumacher Referred To Contact [facility] Diagnoses Radiculopathy of lumbar region Spinal stenosis of lumbar region without neurogenic claudication Right foot drop Procedures EMG(NEURO/NI) NERVE CONDUCTION STUDIES 9-10 STUDIES Kenan Godoy APRN.EPIC SPECIALIST [address] [place] [address] Neurological [place] [address] [place] [address] Referral ID Status Reason Start Date Expiration Date Visits Requested Visits Authorized [id number] New Request Auto-Generat ed Referral 06/23/2024 06/23/2025 1 1 * MRI/CT (Routine) - New Request Specialty Diagnoses / Procedures Referred By Claritza schumacher Referred To Contact CT IMAGING Diagnoses Radiculopathy of lumbar region Spinal stenosis of lumbar region without neurogenic claudication Procedures CT LUMBAR SPINE WO IVCON CT LUMBAR SPINE W/O CONTRAST MATERIAL Kenan Godoy APRN.EPIC SPECIALIST [address] [place] [id number] Imaging [place] [address] Referral ID Status Reason Start Date Expiration Date Visits Requested Visits Authorized [id number] New Request Auto-Generat ed Referral 06/23/2024 07/23/2025 1 1 [facility] Advance Directives No Advanced Directives Records Found [...] Active Gina Guerrero MD Attending Provider Active Instrument Maker Relationship Specialty Start Date End Date Aby Mark CNP [address] [place] [address] Referring Family Medicine 03/02/24 Instrument Maker Relationship Specialty Start Date End Date Aby Mark CNP [address] [place] [address] Referring Family Medicine 03/02/24 Instrument Maker Relationship Specialty Start Date End Date Aby Mark CNP [address] [place] [address] Referring Family Medicine 03/02/24 Instrument Maker Relationship Specialty Start Date End Date Aby Mark CNP [address] [place] [address] Referring Family Medicine 03/02/24 Instrument Maker Relationship Specialty [place] [address] [place] [address] PCP - General Cardiology 12/05/24 Instrument Maker Relationship Specialty Start [place] [address] [place] [address] PCP - General Cardiology 12/05/24 Goals (unrecognized section and content) Goals may be documented in a n alternate sectionGoals may be documented in an alternate sectionGoals may be documented in an alternate sectionGoals may be documented in an alternate sectionNo InformationNo Information INFORMATION SOURCE (unrecogn ized section and content) DATE CREATED AUTHOR 08/01/2022 [facility] DATE CREATED AUTHOR AUTHOR'S ORGANIZ ATION 11/06/2022 [facility] DATE CREATED AUTHOR AUTHOR'S ORGANIZ ATION 11/24/[address] [facility] DATE CREATED AUTHOR AUTHOR'S ORGANIZ ATION 09/03/2024 [facility] DATE CREATED AUTHOR AUTHOR'S ORGANIZ ATION 09/28/2024 [facility] DATE CREATED AUTHOR AUTHOR'S ORGANIZ ATION 12/21/2024 [facility] EPIC REASON FOR VISIT (unrecogniz ed section and content) Reason Comments Established Patient Reason Comments Orders Reason Comments Established Patient Reason Comments Sinusitis Source Comments (unrecognize d section and content) In the event this informatio n is protected by the Federal Confidentiality of Alcohol and Drug Abuse Patient Records regulations: The Federal rules restrict any use of the information to criminally investigate or prosecute any alcohol or drug abuse patient.[facility] the event this information is protected by the Federal Confidentiality of Alcohol and Drug Abuse Patient Records regulations: The Federal rules restrict any use of the information to criminally investigate or prosecute any alcohol or drug abuse patient.[facility] the event this information is protected by the Federal Confidentiality of Alcohol and Drug Abuse Patient Records regulations: The Federal rules restrict any use of the information to criminally investigate or prosecute any alcohol or drug abuse patient.[facility] the event this information is protected by the Federal Confidentiality of Alcohol and Drug Abuse Patient Records regulations: The Federal rules restrict any use of the information to criminally investigate or prosecute any alcohol or drug abuse patient.[facility] FOR RECORDS PERTAINING TO PATIENTS WHO ARE [...] BE BASED ON THE PRIMARY CLINICAL RECORDS. [facility] provides no warranty or guarantee of the accuracy or completeness of information in this document.
--- NOTE | 2025-01-17 15:12 | PM.CN ---
Consult Note: HPI Data of Consult Patient: known to practice within the last 3 years Requesting Physician: Day Fleming NP Primary Care Provider: JOSEPH MARK Consult Narrative Reason for consult: f/u Narrative: Kim Hill a pleasant 54 year old female presents to office for evaluation of chronic low back and bilateral sij injection, post lumbar fusion L4-5 L5-S1. Patient rating pain today 6/10 increasing to 10/10 with standing and activity. Patient finds mild to moderate benefit with norco 7.5-325mg TID PRN, gabapentin 600mg TID, baclofen 10mg BID, mobic 15mg daily without side effects. Pt has a hx of multilevel lumbar fusion 3 years ago but continues to have moderate to severe pain. since last visit NS and rheuamtology have decided against scs. cc:: CC: Day Fleming NP Review of Systems ROS Status of ROS 10 or more systems reviewed and unremarkable except as noted in history and below Musculoskeletal Reports: back pain and joint pain PFSH PFSH Medical History Asthma exacerbation ?J45.901 - Unspecified asthma with (acute) exacerbation (ICD-10) Influenza ?J11.1 - Influenza due to unidentified influenza virus with other respiratory manifestations (ICD-10) Pneumonia ?J18.9 - Pneumonia, unspecified organism (ICD-10) Obesity ?E66.9 - Obesity, unspecified (ICD-10) Osteoarthritis ?M19.90 - Unspecified osteoarthritis, unspecified site (ICD-10) Rheumatoid arthritis ?M06.9 - Rheumatoid arthritis, unspecified (ICD-10) Anxiety ?F41.9 - Anxiety disorder, unspecified (ICD-10) Acid reflux ?K21.9 - Gastro-esophageal reflux disease without esophagitis (ICD-10) Smoker ?F17.200 - Nicotine dependence, unspecified, uncomplicated (ICD-10) Asthma ?J45.909 - Unspecified asthma, uncomplicated (ICD-10) Heart murmur ?R01.1 - Cardiac murmur, unspecified (ICD-10) HTN (hypertension) ?I10 - Essential (primary) hypertension (ICD-10) Surgical History History of lymph node excision ?Z98.890 - Other specified postprocedural states (ICD-10) History of hysterectomy ?Z90.710 - Acquired absence of both cervix and uterus (ICD-10) History of lumbar fusion ?Z98.1 - Arthrodesis status (ICD-10) Family History Aunt Family history of cancer Mother Family history of diabetes mellitus Family history of hypertension Father Family history of diabetes mellitus Family history of hypertension Social History Within the past year, how often did you have a drink containing alcohol: never Score interpretation: A score less than 3 is consistent with normal alcohol consumption. 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 Highest level of school completed/degree received: GED or equivalent Are you now , , , , never or living with a partner: In a typical week, how many times do you talk on the telephone with family, friends, or neighbors: 3 or more times per week How often do you get together with friends or relatives: 3 or more times per week Little interest or pleasure in doing things: not at all Feeling down, depressed, or hopeless: not at all Feel stressed/tense/nervous/anxious/difficulty sleeping: not at all Do you think of yourself as: straight/heterosexual Gender Identity: female Meds Home Medications and Allergies Home Medications ?Medication ?Instructions ?Recorded ?Confirmed ?Type VITAMIN C 250 mg PO DAILY 11/12/22 08/28/24 History cholecalciferol (vit D3) 1,000 1 tab PO DAILY 11/12/22 08/28/24 History unit-vitamin K2 (MK4) 100 mcg tablet (K2 Plus D3) lisinopril 10 mg tablet 10 mg PO DAILY 11/12/22 08/28/24 History albuterol 90 mcg-budesonide 80 2 inh inhalation BID sob 04/27/24 08/28/24 History mcg/actuation HFA aerosol inhaler (Airsupra) ascorbic acid (vitamin C) 250 mg 250 mg PO DAILY 04/27/24 08/28/24 History tablet (Vitamin C) azithromycin 500 mg tablet 500 mg PO DAILY 04/27/24 08/28/24 History (Zithromax) montelukast 10 mg tablet 10 mg PO DAILY 04/27/24 08/28/24 History (Singulair) pantoprazole 40 mg tablet,delayed 40 mg PO DAILY 04/27/24 08/28/24 History release (Protonix) zinc 50 mg capsule 50 mg PO DAILY 04/27/24 08/28/24 History hydrocodone 7.5 mg-acetaminophen 1 tab PO TID PRN pain #90 tabs 05/11/24 08/28/24 Rx 325 mg tablet baclofen 10 mg tablet 10 mg PO TID PRN muscle spasm #90 07/11/24 08/28/24 Rx tabs gabapentin 600 mg tablet 600 mg PO TID #90 tabs 07/11/24 08/28/24 Rx meloxicam 15 mg tablet 15 mg PO DAILY #30 tabs 07/11/24 08/28/24 Rx oxycodone-acetaminophen 7.5 mg-325 See Rx Instructions .Route 08/10/24 Rx mg tablet (Percocet) .COMPLEX PRN pain #70 tabs hydrocodone 7.5 mg-acetaminophen See Rx Instructions .Route 09/06/24 Rx 325 mg tablet .COMPLEX PRN pain #70 tabs hydrocodone 7.5 mg-acetaminophen 1 tab PO TID PRN pain #70 tabs 10/06/24 Rx 325 mg tablet baclofen 10 mg tablet 10 mg PO TID PRN muscle spasm #90 11/02/24 Rx tabs hydrocodone 7.5 mg-acetaminophen See Rx Instructions .Route 11/02/24 Rx 325 mg tablet .COMPLEX PRN pain #70 tabs meloxicam 15 mg tablet 15 mg PO DAILY #30 tabs 11/02/24 Rx hydrocodone 7.5 mg-acetaminophen See Rx Instructions .Route 11/29/24 Rx 325 mg tablet .COMPLEX PRN pain #70 tabs gabapentin 600 mg tablet 600 mg PO TID #270 tabs 12/27/24 Rx hydrocodone 7.5 mg-acetaminophen See Rx Instructions .Route 12/27/24 Rx 325 mg tablet .COMPLEX PRN pain #70 tabs Allergies Allergy/AdvReac Type Severity Reaction Status Date / Time amoxicillin (From Augmentin) Allergy Unknown Rash Verified 08/28/24 10:11 clavulanic acid (From Allergy Unknown Rash Verified 08/28/24 10:11 Augmentin) Penicillins Allergy Unknown RASH Verified 08/28/24 10:11 Exam Constitutional Documenting provider has reviewed patient's vital signs: yes Common normals: no apparent distress, oriented x3, healthy appearing, alert and well nourished General appearance: cooperative HENMT Common normals: normocephalic, hearing grossly normal bilaterally and moist oral mucous membranes Head and scalp: normocephalic Eye Common normals: PERRL Pupil: PERRL Neck & C-Spine Common normals: full ROM General: normal visual inspection Cervical spine: pain with cervical ROM and paracervical muscle tenderness Other: intermittent radiculopathy to bilateral hands right greater than left Chest Common normals: inspection of chest normal Respiratory Common normals: normal respiratory effort, no retractions and no use of accessory muscles Back & Pelvis Lumbar spine/lower back: ROM limited, pain with ROM and straight leg raise negative bilaterally; straight leg raise negative right Sacroiliac joints: SI joint(s) abnormal Other: bilateral sij positive beto(patricks), gaenslens, thigh thrust, compression test Extremity Common normals: full ROM Other: nonpitting edema to RLE utilizing right ankle brace for instability and foot drop Neuro Common normals: oriented x3 Sensorium/orientation: alert Gait (neuro): antalgic Motor exam: strength 5/5 throughout and no movement abnormalities noted Psych Common normals: mental status grossly normal, thought process normal, cooperative, affect normal, speech normal and activity/motor behavior normal Speech: normal speech Thought process: normal thought process Results Additional Findings Additional findings: If on a controlled substance or opioids, I have checked an [place] report on this patient and there are no aberrancies noted in the prescribing history.??If on a controlled substance or opioid a drug screen was completed and reviewed within the last year, and if there has not been a drug screen completed we ordered one today to monitor higher risk, state monitored pain medication use. As part of providing excellent, safe, comprehensive care, the following was completed at our patient's visit: 1. A medication reconciliation and review to ensure accurate knowledge of current/active medications, including asking our patients to inform us about any [id number] medications or herbal remedies/nutritional supplements/alternative remedies. 2. A review to specifically ensure our patients have had annual screening for screening for depression, screening for tobacco use, and screening for unhealthy alcohol use. For concerning screenings had a discussion with the patient, provided patient education, and recommended follow-up with primary care provider when appropriate. If patient noted with a risk of falling, they received education on strength, gait, and balance training to prevent future risk of falling. Portions of this note may have been carried over from the previous visit and updated as appropriate. Please note this office utilizes paper charting in addition to the electronic medical record. A list of current medications, vitals, and PMH is available there as the clinical staff outside of myself do not have access to [employer] charting during the clinic day operations. As part of providing quality comprehensive care the current medications, vitals, and PMH were reviewed in the paper chart. Assessment and Plan Assessment and Plan (1) Sacroiliitis: Assessment and Plan: The patient has had over 3 months of moderate to severe low back and bilateral SIJ pain with functional impairment and inadequate response to conservative care including NSAIDS (unless there are contraindication such as concurrent blood thinners), multiple oral or topical pain medications, and home exercise program/physical therapy.? Patient has completed >6 weeks of guided home exercise program and/or formal physical therapy program without relief of their symptoms.? The Oswestry Disability Index was completed, and the patient scored a 58%.? (2) Sacroiliac joint dysfunction: (3) Lumbar stenosis with neurogenic claudication: (4) Failed back syndrome: (5) Lumbar radiculopathy: (6) Lumbar spondylosis: (7) Chronic prescription opiate use: Assessment and Plan: I feel these medications are improving the patient's quality of life and allow them to tolerate activities of daily living as well as participate in recreational activity.? The patient does not report intolerable side effects. The patient is NOT opioid naive and non-pharmacologic and non-opioid treatment has failed to significantly relieve the patient's pain and improve functionality. The patient has a diagnosis that is related to a somatic or visceral pain etiology. ? ?? I reviewed with the patient the potential risks and side effects with the use of? opioid medications including but not limited to respiratory depression,? sedation, and even . Within the last 12 months I have verified the patient has access to naloxone should? these effects occur. The patient was advised to let? their family know they had Naloxone in case they would need to administer? the medication. I advised the patient to avoid the use of any other? sedation substances including alcohol, THC, and benzodiazepines while? taking opioid medications due to the risk of compounding side effects and? detrimental outcomes. within the last 12 months I have reviewed the [employer], pain treatment agreement and urine drug screen.? ?? A drug screen was completed within the last year, and no aberrancies were noted regarding their use of controlled substances. The patient understands they are subject to the terms and conditions of the pain contract that they have signed. ? ?? I have checked an [place]AR[place] report on this patient today and there are no aberrancies noted in the prescribing history.? Plan bilateral sij injection under fluoroscopy with steroid rotation to kenalog as pt previously had >50% improvement in pain and functional ability for 3 months continue hydrocodone-acetaminophen 7.5-325mg BID to TID PRN moderate to severe pain 70 tabs to last 30 days continue current medications, risks vs benefits reviewed continue f/u with NS continue HEP as tolerated f/u 2 weeks after injection
== END 2025-01-17 14:38 | disposition home or self-care (01) ==
LOC: PM 14:37
PROVIDERS: PCP Nurse Practitioner Family; Visit Provider Nurse Practitioner
DX: M46.1 Sacroiliitis, not elsewhere classified (principal); M53.3 Sacrococcygeal disorders, not elsewhere classified; M48.062 Spinal stenosis, lumbar region with neurogenic claudication; M96.1 Postlaminectomy syndrome, not elsewhere classified; M54.16 Radiculopathy, lumbar region; M47.816 Spondylosis without myelopathy or radiculopathy, lumbar region; Z79.891 Long term (current) use of opiate analgesic
CPT/HCPCS: G0463

== ENCOUNTER 2025-02-05 11:28 | Day surgery (SDC) | payer BC, SELFPAY ==
--- OUTSIDE RECORDS SUMMARY | 2025-02-05 11:42 | XMS_ITS | CCD ---
Author Organization [facility] Care Team Providers Care Merchandising Execution Manager Name Role Phone Roberto Roth Primary Care Provider Justice Cruz Attending Provider DO Roberto Roth Primary Care Provider [phone] MD Hood Rausch Attending Provider DO Roberto Roth Primary Care Provider [phone] CALVIN Mark Attending Provider MD Paresh Tian Attending Provider DO Roberto Roth Primary Care Provider CALVIN Mark Attending Provider MD Paresh Tian Attending Provider [phone] MD Gina Guerrero Attending Provider Gina Guerrero Unavailable SHE ., DR HOOD Hernandez Attending Unavailable SHE ., DR HOOD Hernandez Admitting Unavailable SINGH ., ADA Consulting Unavailable IRA, DR ROBERTO Bahkta Primary Care Unavailable SHE ., DR HOOD [...] ROTH, DR ROBERTO Bhakta Primary Care Unavailable BAIRDFORD, DR DASHA Gomez Consulting Unavailable SINGH ., [...] RAUSCH ., DR HOOD Hernandez Admitting Unavailable SINHG ., ADA Consulting Unavailable IRA, DR ROBERTO [...] Guerrero Admitting Unavailable Aby Mark CNP Unavailable [phone] Gilitaitis , Aaron Musa Attending Unavailable Gilitaitis , Andtawanda Musa Attending Unavailable Gimac BUSTILLO, Andtawanda Musa Attending Unavailable Gimac BUSTILLO, Andtawanda Musa Attending Unavailable JOELLE SARMIENTO Attending Unavailable ABY MARK Referring Unavailable JOELLE SARMIENTO Attending Unavailable ABY MARK Referring Unavailable JOELLE SARMIENTO Attending Unavailable Pavan BUSTILLO [facility] Primary Care Provider [phone] ROMARENU Attending Unavailable Unavailable Unavailable Unavailable Allergies Allergy Classification Reported Allergen(s) Allergy Type Date of Onset Reaction(s) Facility (6 sources) Amoxicillin; Translations: [amoxicillin] Drug Allergy 05-14-20 Nausea [facility] (11 sources) Penicillins; Translations: [Penicillins] Propensity to adverse reactions 07-24-19 14 Rash, Diarrhea [facility] (6 sources) clavulanic acid; Translations: [clavulanic acid] Propensity to adverse reactions 05-14-20 20 Nausea [facility] (3 sources) Amoxicillin / Clavulanate; Translations: [Augmentin] Drug Allergy 07-24-19 14 Unknown [facility] (2 sources) Azithromycin Drug Allergy diarrhea [facility] [employer] Other (4 sources) Penicillin G Drug Allergy 12-20-19 25 Rash [facility] [employer] Other (2 sources) Amoxicillin-Pot Clavulanate Drug Allergy [...] daily as needed for pain HYDROcodone-acetami nophen ([place]) 7.5-325 MG tablet TAKE ONE TABLET BY MOUTH THREE TIMES A DAY NEEDED FOR PAIN. MUST LAST 30 DAYS 12/08/2024 Active Start: 03-18-2019 End: 05-23-2020 take 1 tablet by mouth three times daily Hydrocodone-Acetaminophen ([place]) 5-325 mg Tablet Discontinued 1 TAB PO Three times daily March 18, 2019 12:00am May 23, 2020 4:59pm take 7.5 mg by mouth three times daily hydrocodone/acetaminophen (NORCO ORAL) T francie 7.5 mg by mouth three times a day. Active [place] Active [id number] 200 actuat albuterol 0.09 mg/actuat metered dose [...] sources) High risk drug monitoring status; Translations: [intermediate (current) use of opiate analgesic] Episodic Other [...] Test Name Value Interpretation Reference Range Facility [facility] 06-22-2024 [facility] Telephone (NIQ) KIM HILL ([id number]) 1970 F Date Time Provider Department 06/22/24 [...] drop [M21.371] Order(s):CT LUMBAR SPINE WO IVCON [[id number]] Order #: [id number] FUTURE EMG(NEURO/NI) [[id number]] Order #: [id number]: 1 FUTURE XR LUMBAR MOTION 4V AP/LAT/ FLEX/EXT [[id number]] Order #: [id number] FUTURE Prescriptions as of 06/23/2024 - gabapentin [...] mg by mouth daily at bedtime. - wwpubnjolmn-hiwhwyhtd-g ilanter (TRELEGY ELLIPTA) 100-62.5-25 mcg inhalation powder [...] Encounter Status:Closed by KENAN GODOY on 06/23/[address] [facility] Reena 06-09-2024 CNOV Office Visit (SPNSMN ) KIM HILL ([id number]) 1970 F Date Time Provider Department 06/09/24 4:00 PM JOELLE SARMIENTO SPNSMN During your visit today, we recorded the following information about you: Pulse Blood pressure Weight Height 92/minute 104/52 98 kg 1.6 m Joelle Sarmiento MD 06/16/2024 5:55 PM Signed Rescheduled, no charge Referring Provider: ABY MARK [[id number]] Allergies As of Date: 06/09/2024 Noted Allergy [...] mg by mouth daily at bedtime. - wkzbeuhaxcq-jgbwovyor-d ilanter (TRELEGY ELLIPTA) 100-62.5-25 mcg inhalation powder [...] Status:Closed by JOELLE SARMIENTO on 06/16/24 Normal [facility] Lumbar Spine w/o + w/on 07-30-2022 [...] Justice Lucas on 07/31/[address] [facility] Automated erythrocytes count in urine sediment (number/area)Ordered [...] Basophils/100 WBC (Bld) 0.4 % . [facility] Bilirubin Test strip Ql (U)O rdered By: Paresh Tian on 07-16-2022 Bilirubin Ql (U) Negative Negative [facility] C reactive protein [Mass/vol ume] in [...] on 07-16-2022 Creatinine [Mass/Vol] 0.74 mg/dL 0.44-1.03 [facility] Eosinophils Auto (Bld) [#/Vo l]Ordered [...] MDRD (S/P/Bld) [Vol rate/Area] > 60 mL/Min [facility] Hematocrit Auto (Bld) [Volum [...] 07-16-2022 Ketones (U) [Mass/Vol] Negative Negative [facility] - UrinalysisOrder ed By: Paresh [...] MCHC (RBC) [Mass/Vol] 33.6 g/dL 32.0-35.0 [facility] MCV Auto (RBC) [Entitic vol] Ordered By: Paresh Tian on 07-16-2022 MCV (RBC) [Entitic vol] 100.6 fL 80-100 [facility] Mitotic spindle apparatus Ab [Titer] in [...] Monocytes/100 WBC (Bld) 6.8 % . [facility] Neutrophils Auto (Bld) [#/Vo l]Ordered By: [...] For more information about Hep-2 cell patterns useMediVisionerAtlantic Healthcare.sCoolTV, the official website for the [employer] on Antinuclear Antibody (ASTER) Patterns (ICAP). --------A positive ASTER result may occur in healthy individuals (lowtiter) or be associated with a variety of diseases. Seeinterpretation chart which is not all inclusive:Pattern Antigen Detected Suggested Disease Association Homogeneous DNA(ds,ss), SLE - High titers Nucleosomes, Histones Drug-induced SLE Speckled Sm, RETAIL BUSINESS DEVELOPMENT MANAGER, SCL-70, SLE,MCTD,PSS (diffuse form), SS-A/SS-B Sjogrens Nucleolar SCL-70, PM-1/SCL High titers Scleroderma, PM/DM Centromere Centromere PSS (limited form) w/Crest syndrome variable Nuclear Dot Sp100,[id number] Primary Biliary Cirrhosis Nuclear GP210, Primary Biliary CirrhosisMembrane kailyn A,B,C Performed at: [employer] [place], [place] [id number] Director: Collin Rodriguez PhD, Phone: [phone] Estimated GFR () > 60 mL/Min [facility] Comment on above: GFR estimated refere nce range: According to KDOQI guidelines, <60 ml/min/1.73m2 is sufficient to diagnose a patient with chronic kidney disease. Pharmacy Creatinine Clearance (Chem N/A [facility] Total Complement (CH50) >60 U/mL >41 [facility] Comment on above: Age Male Female [...] to determine out of range values.Performed at: [place] [place], [place] [id number] Director: Collin Rodriguez PhD, Phone: [phone] Nucleated erythrocytes [Pres ence] in Blood by [...] 07-16-2022 Protein (U) [Mass/Vol] Negative Negative [facility] RBC Auto (Bld) [#/Vol]Ordere d By: Paresh Tian on 07-16-2022 RBC (Bld) [#/Vol] 4.50 10*6/uL 3.60-5.00 [facility] Serum homogeneous pattern an tinuclear antibody (ASTER) titerOrdered By: Paresh Tian on 07-16-2022 Homogenous nuclear Ab pattern (S) [Titer] N/A [facility] Serum nuclear antibody titer Ordered By: Paresh Tian on 07-16-2022 Nuclear Ab (S) [Titer] Positive . [facility] Comment on above: Negative <1:80 Ramiro leblanc 1:80 Positive >1:80 Serum or plasma complement C 3 measurement (mass/volume)Ordered By: Paresh Tian on 07-16-2022 Complement C3 [Mass/Vol] 197 mg/dL 82-167 [facility] Comment on above: Performed at: [place] [id number] Director: Collin Rodriguez PhD, Phone: [phone] Serum or plasma complement C 4 measurement [...] Bacteria Auto Ql (U) 4+ None Seen [facility] Urine clarity by refractomet ry automatedOrdered [...] 07-16-2022 WBC (Bld) [#/Vol] 10.4 10*3/uL 3.8-11.6 [facility] pH Auto test strip (U)Ordere d [...] DASHA KHAN Date: 2022-05-15 07:49 Normal [facility] Covid-19 PCR (CVDTB)on SARS-CoV-2 (COVID-19) RNA AMBERLY+probe Ql (Unsp spec) Not detected Normal NOT DETECTED [facility] Comment on above: Result Comment: This test is not yet approved or cleared by the [place] FDA. When there are no FDA-approved or cleared tests available, and other criteria are met, FDA can make tests available under an emergency access mechanism called an Emergency Use Authorization (EUA). The EUA for this test is supported by the Harm[place] of Health and Human Service's (HHS's) declaration [...] consistent with SARS-CoV-2. Performed By: #### [facility] #### [facility] [address] [place] [address] Dr. Narendra Jacobsen COVID-19 Positive/NegativeOr dered By: Baljinder Rausch on 01-31-2022 SARS-CoV-2 (COVID-19) N gene AMBERLY+probe Ql (Resp) Negative Negative [facility] Comment on above: Testing for SARS-CoV -2 by RT-PCR This test was developed and its performance characteristics determined by [employer] ([place]) and validated at the [...] COVID-19 Positive/Negativeon 05-20-2020 COVID-19 Positive/Negative Negative Negative [facility] Comment on above: Testing for SARS-CoV [...] Otheron 05-20-2020 Coronavirus 2019 PCR Interp N/A [facility] Automated basophil %on 05-14 Basophils/100 WBC (Bld) 0.5 % F [facility] Automated basophil counton 1 07-15-2019 Basophils (Bld) [#/Vol] 0.0 10*3/uL 0.0-0.2 [facility] Automated blood lymphocyte c ount (number/volume)on 05-14-2020 Lymphocytes (Bld) [#/Vol] 2.8 10*3/uL 1.00-4.8 [facility] Automated blood lymphocyte c ount as percentage of total leukocyteson 05-14-2020 Lymphocytes/100 WBC (Bld) 35.0 % [facility] Automated blood monocyte cou nton 05-14-2020 Monocytes (Bld) [#/Vol] 0.6 10*3/uL 0.0-0.8 [facility] Automated blood platelet cou nt (count/volume)on 05-14-2020 Platelets (Bld) [#/Vol] 225 10*3/uL 150-450 [facility] Automated blood platelet jose n volume measurementon 05-14-2020 Platelet mean volume (Bld) [Entitic vol] 8.2 fL 6.3-10.7 [facility] Automated eosinophil %on Eosinophils/100 WBC (Bld) 1.5 % [facility] Automated eosinophil counton 05-14-2020 Eosinophils (Bld) [#/Vol] 0.1 10*3/uL 0.0-0.45 [facility] Automated erythrocyte distri bution width ratioon 05-14-2020 Erythrocyte distribution width (RBC) [Ratio] 12.3 % 11.9-15.3 [facility] Automated erythrocyte mean c orpuscular hemoglobin (mass per erythrocyte)on 05-14-2020 MCH (RBC) [Entitic mass] 35.2 pg 24.7-34.3 [facility] Automated erythrocyte mean c orpuscular hemoglobin concentration measurement (mass/volon 05-14-2020 MCHC (RBC) [Mass/Vol] 34.2 g/dL 32.0-35.0 [facility] Automated erythrocyte mean c orpuscular volumeon 05-14-2020 MCV (RBC) [Entitic vol] 102.9 fL 80-100 [facility] Automated monocyte %on 05-14 Monocytes/100 WBC (Bld) 7.0 % [facility] Automated neutrophil %on Neutrophils/100 WBC (Bld) 56.0 % [facility] Blood erythrocytes automated count (number/volume)on 05-14-2020 RBC (Bld) [#/Vol] 4.08 10*6/uL 3.60-5.00 [facility] Blood hemoglobin measurement (mass/volume)on 05-14-2020 Hemoglobin (Bld) [Mass/Vol] 14.3 g/dL 11.8-15.4 [facility] Blood leukocytes automated c ount (number/volume)on 05-14-2020 WBC (Bld) [#/Vol] 7.9 10*3/uL 4.5-11.0 [facility] Blood neutrophil count by au tomated method (number/volume)on 05-14-2020 Neutrophils (Bld) [#/Vol] 4.4 10*3/uL 1.8-7.7 [facility] Estimated glomerular filtrat ion rate (GFR) non- Americanon 05-14-2020 GFR/1.73 sq M predicted among non-blacks MDRD (S/P/Bld) [Vol rate/Area] mL/min/{1.73_m2} [facility] Hematocrit [Volume Fraction] of Blood by Automated counton 05-14-2020 Hematocrit (Bld) [Volume fraction] 41.9 % 34.0-46.4 [facility] Otheron 05-14-2020 GFR/1.73 sq M.predicted MDRD (S/P/Bld) [Vol rate/Area] mL/min/{1.73_m2} [facility] Comment on above: GFR estimated refere nce range: According to KDOQI guidelines, <60 ml/min/1.73m2 is sufficient to diagnose a patient with chronic kidney disease. Nucleated RBC/100 WBC (Bld) [Ratio] 0.1 % 0-0.5 [facility] Creatinine Clearance (Chem N/A [facility] Serum or plasma calcium octavio urement (mass/volume)on 05-14-2020 Calcium [Mass/Vol] 10.1 mg/dL 8.2-10.2 [facility] Serum or plasma chloride jose surement (moles/volume)on 05-14-2020 Chloride [Moles/Vol] 101 mmol/L 95-114 [facility] Serum or plasma creatinine m easurement with calculation of estimated glomerular filtron 05-14-2020 Creatinine [Mass/Vol] 0.60 mg/dL 0.44-1.03 [facility] Serum or plasma glucose octavio urement (mass/volume)on 05-14-2020 Glucose [Mass/Vol] 94 mg/dL 70-100 [facility] Comment on above: ADA recommended refe rence rangeRandom Glucose Reference Range is dependent on time and content of last meal. Glucose of more than 200 mg/dL in a nonstressed, ambulatory subject supports the diagnosis of Diabetes Mellitus. Serum or plasma potassium me asurement (moles/volume)on 05-14-2020 Potassium [Moles/Vol] 4.3 mmol/L 3.5-5.1 [facility] Serum or plasma sodium measu rement (moles/volume)on 05-14-2020 Sodium [Moles/Vol] 140 mmol/L 136-146 [facility] Serum or plasma total carbon dioxide measurement (moles/volume)on 05-14-2020 CO2 [Moles/Vol] 27.2 mmol/L 22.0-30.0 [facility] Serum or plasma urea nitroge n measurement (mass/volume)on 05-14-2020 Urea nitrogen [Mass/Vol] 7 mg/dL 9-23 [facility] Vital Signs Date Time Vital Sign Value Performing Clinician Facility 12-19-2024 15:03-0400 Body height 160 cm Renu Brandon MD Work Phone: [facility] 12-19-2024 15:03-0400 Body mass index (BMI) [Ratio] 41.1 kg/m2 Renu Brandon MD Work Phone: [facility] 12-19-2024 15:030400 Body weight 105.23 kg Renu Brandon MD Work Phone: [facility] 12-19-2024 15:03-0400 Diastolic blood pressure 69 mm[Hg] Renu Brandon MD Work Phone: [facility] 12-19-2024 15:03-0400 Heart rate 96 /min Renu Brandon MD Work Phone: [facility] 12-19-2024 15:03-0400 Systolic blood pressure 115 mm[Hg] Renu Brandon MD Work Phone: [facility] 09-26-2024 14:59-0400 Body height 160 cm Joelle Sarmiento MD Work Phone: [facility] 09-26-2024 14:59-0400 Body mass index (BMI) [Ratio] 38.14 kg/m2 Joelle Sarmiento MD Work Phone: [facility] 09-26-2024 14:59-0400 Body weight 97.65 kg Joelle Sarmiento MD Work Phone: [facility] 09-26-2024 14:59-0400 Diastolic blood pressure 95 mm[Hg] Joelle Sarmiento MD Work Phone: [facility] 09-26-2024 14:59-0400 Heart rate 96 /min Joelle Sarmiento MD Work Phone: [facility] 09-26-2024 14:59-0400 Respiratory rate 16 /min Joelle Sarmiento MD Work Phone: [facility] 09-26-2024 14:59-0400 SaO2% (BldA) [Mass fraction] 98 % Joelle Sarmiento MD Work Phone: [facility] 09-26-2024 14:59-0400 Systolic blood pressure 155 mm[Hg] Joelle Sarmiento MD Work Phone: [facility] 08-17-2022 16:00-0400 Body height 160.02 cm Gina Blades Other [employer] Other 08-17-2022 16:00-0400 Body mass index (BMI) [Ratio] 40.56 kg/m2 Gina Blades Other [employer] Other 08-17-2022 16:00-0400 Body weight 103.87 kg Gina Blades Other [employer] Other 08-17-2022 16:00-0400 Diastolic blood pressure 82 mm[Hg] Gina Blades Other [employer] Other 08-17-2022 16:00-0400 Systolic blood pressure 126 mm[Hg] Gina Blades Other [employer] Other Encounters Encounter Date Encounter Type Care [...] procedure Joelle Sarmiento MD Work Phone: [facility] Comment on above: Spinal stenosis of c ervical region (Primary Dx); Lumbar radiculopathy; Adhesive arachnoiditis (HCC) Start: 09-26-2024 ambulatory JOELLE SARMIENTO Facil ity:[facility] Start: 08-28-2024 End: 08-28-2024 ambulatory Aaron Mosqueda MD Facility:[facility] Start: 06-22-2024 End: 06-23-2024 Telephone encounter Joelle Sarmiento MD Work Phone: Neurology Comment on above: Orders Start: 06-16-2024 End: 06-16-2024 ambulatory Joelle Sarmiento MD Work Phone: [facility] Comment on above: Lumbar radiculopathy (Primary Dx) Start: 06-16-2024 End: 06-16-2024 Telemedicine consultation with patient Joelle Sarmiento MD Work Phone: [facility] Start: 06-09-2024 ambulatory ABY MARK Fac ility:[facility] Start: 04-24-2024 End: 04-24-2024 ambulatory Aaron Mosqueda MD Facility:[facility] Start: 03-27-2024 End: 03-27-2024 ambulatory Aaron Mosqueda MD Facility:[facility] Start: 03-06-2024 End: 03-10-2024 Chart abstracting Joelle Sarmiento MD Work Phone: Neurology Start: 10-18-2023 End: 10-18-2023 ambulatory [facility] Start: 10-27-2022 ambulatory NARENDRANATH LAKSHMIPATHY . Facility:[facility] Start: 10-13-2022 End: 10-13-2022 ambulatory NARENDRANATH LAKSHMIPATHY . Facility:[facility] Start: 10-06-2022 End: 10-07-2022 ambulatory NARENDRANATH LAKSHMIPATHY . Facility:[facility] Start: 09-08-2022 End: 09-08-2022 ambulatory Gina Guerrero Other [facility] [employer] Other Start: 09-08-2022 Telephone encounter Gina Guerrero F [facility] Neuro[facility] Start: 09-01-2022 End: 09-02-2022 ambulatory NARENDRANATH LAKSHMIPATHY . Facility:[facility] Start: 08-17-2022 End: 08-17-2022 Patient encounter procedure DO Roberto Roth Work Phone: [facility] Work Phone: Start: 08-17-2022 End: 08-17-2022 ambulatory DO Roberto Roth Work Phone: [facility] Work Phone: Start: 08-17-2022 Office outpatient ne w 45 minutes Gina Guerrero FPG [facility] Start: 07-16-2022 End: 07-17-2022 ambulatory DO Roberto Roth Work Phone: [facility] Work Phone: Start: 07-16-2022 End: 07-16-2022 Patient encounter procedure DO Roberto Roth Work Phone: [facility] [address] Work Phone: Start: 07-03-2022 End: 07-03-2022 ambulatory DO Roberto Roth Work Phone: [facility] Work Phone: Start: 07-03-2022 End: 07-03-2022 Patient encounter procedure DO Roberto Roth Work Phone: [facility] Work Phone: Start: 06-23-2022 End: 06-23-[address] HOOD RAUSCH . Facility:[facility] Start: 05-29-2022 End: 05-30-[address] HOOD RAUSCH . Facility:[facility] Start: 05-14-2022 End: 05-15-2022 ambulatory ADA SINGH . Facility:[facility] Start: 03-12-2022 End: 03-13-[address] HOOD RAUSCH . Facility:[facility] Start: 02-13-2022 Encounter for preprocedural laboratory examination DR HOOD RAUSCH . [facility] Start: 02-10-2022 End: 02-10-[address] HOOD RAUSCH . Facility:[facility] Start: 02-06-2022 End: 02-07-[address] HOOD RAUSCH . Facility:[facility] Start: 02-06-2022 End: 02-07-2022 Encounter for preprocedural laboratory examination DR HOOD RAUSCH . Facility:[facility] Start: 02-03-2022 End: 02-03-[address] HOOD RAUSCH . Facility:[facility] Start: 01-31-2022 End: 01-31-2022 Patient encounter procedure DO Roberto Roht Work Phone: [facility] Start: 01-16-[address] HOOD RAUSCH . Faci lity:[facility] Start: 01-07-2022 End: 01-08-[address] HOOD RAUSCH . Facility:[facility] Start: 05-20-2020 End: 05-20-2020 Patient encounter procedure Roberto Roth -Pre-Surgical Testing Start: 05-14-2020 End: 05-14-2020 Patient encounter procedure Roberto Roth -Pre-Surgical Testing Start: 04-26-2020 End: 04-26-2020 Patient encounter procedure Roberto Roth [facility] Procedures Date Procedure Procedure Detail Performing Clinician Start: 07-16-2022 Urine culture DO Roberto reyes Work Phone: Start: 07-03-2022 X-ray of lumbar spin e, six views including bending views DO Roberto Roth Work Phone: Start: 04-26-2020 X-ray of lumbar spin e, four views Roberto Roth Plan of Treatment Date Care Activity Detail Author Start: 01-29-2025 [facility] Start: 01-23-2025 End: 01-23-2025 Patient encounter procedure 01/23/2025 3:20 PM EDT Office Visit [facility] [address] [facility] [address] [place] [id number] Renu Brandon MD [address] [facility] [address] [place] [address] [facility] Start: 12-19-2024 End: 12-19-2025 Aerobic culture Aerobic culture Microbiology Routine Phantosmia Expected: 12/19/2024 (Approximate), Expires: 12/19/2025 [facility] Work Phone: Comment on above: Expected: 12/19/2024 (Approximate), Expires: 12/19/2025 Start: 01-30-2024 Covid-19 Vaccine () Covid-19 Vaccine ( season) [facility] Start: 01-30-2024 Influenza vaccination Influenza Vacc ine (#1) [facility] Start: 08-17-2022 Plain X-ray of right hip [...] of 2) Shingrix Vaccine (1 of 2) [facility] Start: 2013 Diabetes Screening Diabetes Screenin g [facility] Start: 2013 Lipid panel Lipid Screening [facility] Start: 2013 Screening for malign ant neoplasm of colon [facility] Start: 2008 Screening for malign ant neoplasm of breast [facility] Start: 1998 Screening for malign ant neoplasm of cervix [facility] Start: 1989 Screening for malign ant neoplasm of cervix [facility] Start: 10-03-1987 Hepatitis B Vaccine (1 of 3 - 19+ 3-dose series) Hepatitis B Vaccine (1 of 3 - 19+ 3-dose series) [facility] Start: 10-03-1987 Pneumococcal Vaccine : 50+ (1 of 2 - PCV) Pneumococcal Vaccine: 50+ (1 of 2 - PCV) [facility] Start: 10-03-1987 Urine microalbumin profile DTaP,Tdap,Td Vaccine (1 - Tdap) [facility] Start: 1986 Anxiety Screening Anxiety Screening [facility] Start: 1986 Depression Screening Depression Scre ening [facility] Start: 1986 Hepatitis C screening Hepatitis C Sc reening [facility] Start: 1986 HIV screening HIV Screening [facility] Start: 1968 Screening for malign ant neoplasm of colon [facility] Complement C3 [Mass/volume] in Serum or Plasma [facility] Complement C4 [Mass/volume] in Serum or Plasma [facility] End: 07-23-2025 CT Lumbar spine WO contrast CT LUMBAR SPINE WO IVCON Radiology Routine Radiculopathy of lumbar region Spinal stenosis of lumbar region without neurogenic claudication 1 Occurrences starting 06/23/2024 until 07/23/2025 [facility] Work Phone: Comment on above: 1 Occurrences starti ng 06/23/2024 until 07/23/2025 End: 06-23-2025 EMG(NEURO/NI) EMG(NEURO/NI) EMG Routine Radiculopathy of lumbar region Spinal stenosis of lumbar region without neurogenic claudication Right foot drop 1 Occurrences starting 06/23/2024 until 06/23/2025 [facility] Comment on above: 1 Occurrences starti ng 06/23/2024 until 06/23/2025 Homogenous nuclear A b pattern [Titer] in Serum [facility] End: 10-26-2025 MR Cervical spine WO contrast MRI CERVICAL SPINE WO IVCON Radiology Routine Spinal stenosis of cervical region 1 Occurrences starting 09/26/2024 until 10/26/2025 [facility] Work Phone: Comment on above: 1 Occurrences starti ng 09/26/2024 until 10/26/2025 Nuclear Ab [Titer] i n Serum [facility] End: 07-23-2025 XR Lumbar spine Views W flexion and W extension XR LUMBAR MOTION 4V AP/LAT/ FLEX/EXT Radiology Routine Radiculopathy of lumbar region Spinal stenosis of lumbar region without neurogenic claudication 1 Occurrences starting 06/23/2024 until 07/23/2025 [facility] Comment on above: 1 Occurrences starti ng [...] unspecified formulation Joelle Sarmiento MD Work Phone: [facility] Payers Date Payer Category Payer [employer] Blue [employer] [id number] 2023 Unknown [id number] 2023 Unknown [id number] 2022 Self-pay [id number] 1968 Unknown [id number] 2.16.84 0.1.151046.3.579.2.593 1968 Unknown [id number] 2.16.84 0.1.467199.3.579.2.593 1968 Unknown [id number] 2.16.84 0.1.581531.3.579.2.593 1968 Unknown [id number] 2.16.84 0.1.685959.3.579.2.593 1968 Unknown [id number] 2.16.84 0.1.222100.3.579.2.593 1968 Unknown [id number] 2.16.84 0.1.354615.3.579.2.593 1968 Unknown [id number] 2.16.84 0.1.163380.3.579.2.593 1968 Unknown [id number] 2.16.84 0.1.686695.3.579.2.593 1968 Unknown [id number] 2.16.84 0.1.437653.3.579.2.593 1968 Unknown [id number] 2.16.84 0.1.860924.3.579.2.593 1968 Unknown [id number] 2.16.84 0.1.067581.3.579.2.593 1968 Unknown [id number] 2.16.84 0.1.157480.3.579.2.593 1968 Unknown [id number] 2.16.84 0.1.366161.3.579.2.593 1968 Unknown [id number] 2.16.84 0.1.526489.3.579.2.593 1968 Unknown [id number] 2.16.84 0.1.972243.3.579.2.593 1968 Unknown [id number] 2.16. 840.1.283330.3.579.2.196 1968 Unknown [id number] 2.16. 840.1.610355.3.579.2.196 1968 Unknown [id number] 2.16. 840.1.378309.3.579.2.196 1968 Unknown [id number] 2.16. 840.1.807652.3.579.2.196 1968 Unknown [id number] 2.16.8 40.1.280554.3.579.2.1259 1959 Unknown [id number] Unknown [id number] Unknown [id number] 2.16.8 40.1.978523.3.579.2.531 Social History Date Type Detail Facility Start: 05-14-2020 End: 06-23-2021 Tobacco smoking status UTIS Smoker (finding) [facility] [place] Start: 1970 Sex Assigned At Female [facility] Start: 06-09-2024 End: 12-19-2024 History of tobacco use [facility] Tobacco smoking stat us UTIS Tobacco smoking consumption unknown [facility] Start: 1970 Sex assigned at Not on file [facility] Start: 06-09-2024 End: 12-19-2024 Tobacco smoking status UTIS Smokes tobacco daily [facility] History of tobacco use Cigarette Smoker C [facility] Start: 06-09-2024 End: 12-19-2024 Tobacco use and exposure Smokeless tobacco non-user [facility] Start: 06-09-2024 End: 12-19-2024 Alcoholic beverage intake Ex-drinker (finding) [facility] Start: 06-09-2024 End: 12-19-2024 History of Social function [facility] Adult Depression Screening Assessment 3 [facility] Medical Equipment Procedure Code Equipment Code Equipment Origin al Text Equipment Identifier Dates Fusion, spine, lumbar, XLIF CANCELLOUS COARSE 7.5CC FDA Start: 05-22-2020 Fusion, spine, lumbar, XLIF Bone-screw internal spinal fixation system, non-sterile ()[id number] FDA Start: 05-22-2020 Fusion, spine, lumbar, XLIF Bone-screw internal spinal fixation system, non-sterile ()[id number] FDA Start: 05-22-2020 Fusion, spine, lumbar, XLIF Bone-screw internal spinal fixation system, non-sterile ()[id number] FDA Start: 05-22-2020 Fusion, spine, lumbar, XLIF CANCELLOUS COARSE 7.5CC FDA Start: 05-22-2020 Fusion, spine, lumbar, XLIF Bone-screw internal spinal fixation system, non-sterile ()[id number] FDA Start: 05-22-2020 Fusion, spine, lumbar, XLIF Bone-screw internal spinal fixation system, non-sterile ()[id number] FDA Start: 05-22-2020 Fusion, spine, lumbar, XLIF Polymeric spinal fusion cage, non-sterile ()[id number] FDA Start: 05-22-2020 Fusion, spine, lumbar, XLIF Dura mater graft, bovine ()[id number] FDA Start: 05-22-2020 Fusion, spine, lumbar, XLIF MAS REDUCTION FIXATION ADD LEV FDA Start: 05-22-2020 Fusion, spine, lumbar, XLIF XLIF 1 LEVEL MAS REDUCTION FDA Start: 05-22-2020 Fusion, spine, lumbar, XLIF Spinal fusion graft kit ()[id number] FDA Start: 05-22-2020 Fusion, spine, lumbar, XLIF Bone matrix implant, human-derived ()[id number] FDA Start: 05-22-2020 Fusion, spine, lumbar, XLIF Metallic spinal fusion cage, non-sterile ()[id number] FDA Start: 05-22-2020 Fusion, spine, lumbar, XLIF Bone-screw internal spinal fixation system, non-sterile ()[id number] FDA Start: 05-22-2020 Fusion, spine, lumbar, XLIF [...] plan surgical tx. documented in this encounter [facility] 09-26-2024 History of Presen t illness [...] gabapentin, meloxicam, voltaren cream, heat, mdp x1 Euclid - 3x/dy REVIEW OF SYSTEMS: GENERAL: No [...] 10 mg by mouth daily at bedtime. ouymbmngcym-tozqkcozo-rnvktkhx (TRELEGY ELLIPTA) 100-62.5-25 mcg inhalation powder Inhale [...] with more than 50% of the total lyhj-ec-sgtf time of the visit in counseling / coordination of care. SIGNATURE: Joelle Sarmiento MD PATIENT NAME: Kim Hill DATE: September 25, 2024 TIME: 3:07 PM PAGER: By signing my name below, I, Ernestina Albert, attest that this documentation has been prepared under the direction and in the presence of Dr. Sarmiento Electronically signed, Ernestina BetyMonae powers September 25, 2024 3:08 PM documented in this encounter [facility] 06-23-2024 Telephone encounter Note Neuro SPINE CARE COORDINATION QUICK NOTE Called patient, no answer. Left non-detailed VM on non-identified VM box instructing patient to call office or check MYC messages for details. Ness Corbett RN June 23, 2024 11:12 AM [facility] 06-23-2024 Miscellaneous Notes Neuro SPINE CARE COORDINATION [...] Pt can schedule. documented in this encounter [facility] 06-22-2024 Telephone encounter Note Pt called asking for orders informed by on OV 06/16/24. Discussed with patient will order CT and EMG as well as standing xray Pls send MyC msg once orders are ready so that Pt can schedule. [facility] 06-16-2024 Note HNO ID: [id number] Author: JOELLE SARMIENTO MD Service: ? Author Type: Physician Type: Progress Notes Filed: 06/16/2024 17:55 Note Text: Rescheduled, no charge [facility] 06-16-2024 Note HNO ID: [id number] Author: JOELLE SARMIENTO MD Service: ? Author Type: Physician Type: Progress Notes Filed: 06/16/2024 09:36 Note Text: I have communicated my name and active licensure. The patient's identity and physical location were verified at the time of this visit. Either the patient or their legal traffic representative has been informed of the risks [...] with more than 50% of the total bpdy-rn-ruvf time of the visit in counseling / coordination of care. [facility] 06-16-2024 History of Presen t illness Narrative I have communicated my name and active licensure. The patient's identity and physical location were verified at the time of this visit. Either the patient or their legal traffic representative has been informed of the risks [...] with more than 50% of the total sobz-wj-pano time of the visit in counseling / coordination of care. documented in this encounter [facility] 03-10-2024 Note HNO ID: [id number] Author: KENAN GODOY APRN.GAMING CASHIER Service: ? Author Type: Nurse Practitioner Type: [...] gabapentin, meloxicam, voltaren cream, heat, mdp x1 Euclid - 3x/dy Studies (Reports unless indicated) Mri lumbar report Lumbarization S1 S/p :L4-S1 fusion L5/S1 mod b/l FS S1/2 paraspinal muscle mod to severe atrophy Disposition: Please schedule with dr sarmiento if patient would like soon can schedule with myself. Please instruct patient to bring copy of imaging and injection history for review. [facility] 03-10-2024 History of Presen t illness Narrative [...] gabapentin, meloxicam, voltaren cream, heat, mdp x1 Euclid - 3x/dy Studies (Reports unless indicated) Mri [...] Health Provider or Pain Management Provider at [facility]? No If answer is YES [...] the facility where the MRI/CT/myelogram was completed: [place] [address] MRI/CT/myelogram viewable in Epic: No If not, please provide [phone] to fax in imaging reports for review. Also, please inform patient to hand carry imaging disc to appointment. XR (spine) within 12 months: Yes If YES, please ask for the name/address of the facility where the XR was completed: [place] [address] Dr. Freeman's patients: Have you had previous [...] therapy was completed INJ - Pain mgmt [facility] [place] [address] Have you tried any other kinds of non-surgical treatments in the last 12 months? (For example: NSAIDS, muscle relaxants, analgesics, oral steroids, Chiropractor, Acupuncture): gabapentin, meloxicam, voltaren cream, heat, mdp x1 4. Are you currently taking daily prescribed narcotic medications for your current symptoms (For example Oxycodone, Hydrocodone, Tramadol, Morphine, Other)? Yes Euclid - 3x/dy 5. Have you had previous spinal surgery for this same symptoms? Yes If YES please ask for the name of facility/address of where the surgery was completed: [facility] - cages Additional Comments [phone] documented in this encounter [facility] 03-06-2024 Note HNO ID: [id number] Author: ?, ?, ? Service: ? Author Type: ? Type: Progress Notes Filed: 03/10/2024 16:07 Note Text: Patient name: Kim Hill Are you being referred by a [facility] Spine Health Provider or Pain Management Provider at [facility]? No If answer is YES [...] the facility where the MRI/CT/myelogram was completed: [place] [address] MRI/CT/myelogram viewable in Epic: No If not, please provide [phone] to fax in imaging reports for review. Also, please inform patient to hand carry imaging disc to appointment. XR (spine) within 12 months: Yes If YES,? please ask for the name/address of the facility where the XR was completed: [place] [address] Dr. Freeman's patients: Have you had previous [...] therapy was [place] [address] Have you tried any other kinds of non-surgical treatments in the last 12 months? (For example: NSAIDS, muscle relaxants, analgesics, oral steroids, Chiropractor, Acupuncture): gabapentin, meloxicam, voltaren cream, heat, mdp x1 4. Are you currently taking daily prescribed narcotic medications for your current symptoms (For example Oxycodone, Hydrocodone, Tramadol, Morphine, Other)? Yes Euclid - 3x/dy 5. Have you had previous spinal surgery for this same symptoms? Yes If YES? please ask for the name of facility/address of where the surgery was completed: [facility] - 2 cages Additional Comments [phone] [facility] 10-06-2022 Note CONSULTATION CONSULTATION DATE: 10/06/2022 TO: [...] pill b.i.d. and to continue to use Euclid 7.5 mg t.i.d. We did reduce the use at her last visit from 90 pills a month to 80 pills to last one month's time. She appears to be tolerating this transition quite well. I have asked her to continue with gabapentin 600 mg t.i.d. Her JOYCE on today's visit is 28. She reports the Euclid does improve her quality of life, level of functioning and sleep pattern, and she denies any side effects. As part of providing excellent, safe, comprehensive care, the following was completed at our patient's visit: 1. A medication reconciliation and review to ensure accurate knowledge of current/active medications, including asking our patients to inform us about any wpum-xhh-ngdwhgz medications or herbal remedies/nutritional supplements/alternative remedies. 2. [...] options with their primary care provider. [facility] 09-01-2022 Note CONSULTATION CONSULTATION DATE: 09/01/2022 [...] our patients to inform us about any zhmi-fea-dladgzm medications or herbal remedies/nutritional supplements/alternative remedies. 2. [...] options with their primary care provider. [facility] 08-17-2022 Evaluation note Encounter Date Diagnosis Assessment Notes Jul, Other chronic pain (ICD-10 - G89.29) Jul, Low back pain, unspecified (ICD-10 - M54.50) [facility] Other 02-16-2023 NoteCONSULTATION CONSULTATION DATE: 07/16/2022 HISTORY OF PRESENT ILLNESS: This is a 51-year-old female who returns to the clinic status post bilateral SI joint injection completed on 06/23/2022. The patient received 80% relief for one day and on day two felt worse than her normal baseline pain. Today, she rates her pain 8/10. Medications include gabapentin 600 mg t.i.d., Euclid 7.5/325 b.i.d. and Mobic 15 mg daily. [...] her medications; Mobic 15 mg daily and Euclid 7.5/325 b.i.d. She will return to the clinic in six weeks' time, in which we will, in addition to her PCPs office, review the MRI and form a plan of care at that time. Patient is in agreement to this plan.[facility] [id number] Note CONSULTATION CONSULTATION DATE: 05/29/2022 HISTORY OF [...] down. Medications include gabapentin 600 mg t.i.d., Euclid 7.5/325 b.i.d. and diclofenac 50 mg daily. [...] care and will be followed up thereafter.[facility] [id number] NoteCONSULTATION CONSULTATION DATE: 05/14/2022 HISTORY OF PRESENT [...] as well as gabapentin 600 mg t.i.d., Euclid 7.5/325 t.i.d. At her last appointment, she [...] Refills for gabapentin 600 mg t.i.d. and Euclid 7.5/325 b.i.d. will be sent to her pharmacy. Patient agrees to move forward with the procedure. She will followed up in the clinic thereafter.[facility] [id number] NotePAIN MANAGEMENT CONSULTATION CONSULTATION DATE: 05/14/2022 CHIEF [...] with a sacroiliac joint injection under fluoroscopy.[facility] [id number] NoteCONSULTATION CONSULTATION DATE: 03/12/2022 ADDENDUM DIAGNOSIS: Lumbar spondylosis, lumbar degenerative disc disease, chronic lower back pain and a history of a lumbar fusion.[facility] [id number] Note CONSULTATION CONSULTATION DATE: 03/12/2022 This is [...] Current medications include gabapentin 600 mg t.i.d., Euclid 7.5/325 b.i.d., diclofenac cream and ibuprofen. She [...] with her vitamins as well as her Euclid. The dose of frequency will not be changed. We will have the patient return to the clinic in two months' time for re-evaluation. The patient is inquiring about an increase of her Euclid, possibly during the winter months. There will be no changes today.[facility] [id number] NoteCONSULTATION CONSULTATION DATE: 01/07/2022 This is a [...] Current medications include gabapentin 600 mg b.i.d., Euclid 7.5/325 b.i.d., diclofenac topical, multivitamin regimen and ibuprofen p.r.n. She has tried diclofenac in the past but was unable to tolerate it due to stomach issues but low-dose ibuprofen she can tolerate. She is needing Euclid and gabapentin refill today. REVIEW OF SYSTEMS, [...] subsequently move to the left. Refill for Euclid 7.5/325 b.i.d. and gabapentin 600 mg b.i.d. will be sent to the pharmacy. The patient is encouraged to increase magnesium in her vitamin regimen as well as menthol heat rub, seated stretches that were demonstrated and heat application. The patient agrees with the plan of care and would like to move forward and she will follow-up in the clinic post procedure.[facility] HospitalEvaluation noteNo assessment information availableWhite Hospital Work Phone: Evaluation noteNo InformationNort [facility] Other evaluation note* Diagnosis Lumbar radiculopathy- Primary Thoracic or lumbosacral neuritis or radiculitis, unspecified [facility] Diagnosis Radiculopathy of lumbar region- Primary Thoracic or lumbosacral neuritis or radiculitis, unspecified Spinal stenosis of lumbar region without neurogenic claudication Spinal stenosis, lumbar region, without neurogenic claudication Right foot drop Other acquired deformity of ankle and foot documented in this encounter [facility] note* Diagnosis Spinal stenosis of cervical region- Primary Spinal stenosis in cervical region Lumbar radiculopathy Thoracic or lumbosacral neuritis or radiculitis, unspecified Adhesive arachnoiditis (HCC) Meningitis, unspecified [facility]* Diagnosis Phantosmia- Primary Chronic maxillary sinusitis [...] see above Hospitalization History 4 child births [place] [employer] Other reason for referral (narrative)* Diagnostic Procedure Only (Routine) - New Request Specialty Diagnoses / Procedures Referred By Claritza schumacher Referred To Contact XR IMAGING Diagnoses Radiculopathy of lumbar region Spinal stenosis of lumbar region without neurogenic claudication Procedures XR LUMBAR MOTION 4V AP/LAT/ FLEX/EXT RADEX SPINE LUMBOSACRAL MINIMUM 4 VIEWS Kenan Godoy APRN.GAMING CASHIER [address] [place] [address] Xr Imaging [place] [address] Referral ID Status Reason Start Date Expiration Date Visits Requested Visits Authorized [id number] New Request Auto-Generat ed Referral 06/23/2024 07/23/2025 1 1 * Outpatient Procedure (Routine) - New Request Specialty Diagnoses / Procedures Referred By Claritza schumacher Referred To Contact [facility] Diagnoses Radiculopathy of lumbar region Spinal stenosis of lumbar region without neurogenic claudication Right foot drop Procedures EMG(NEURO/NI) NERVE CONDUCTION STUDIES 9-10 STUDIES Kenan Godoy APRN.GAMING CASHIER [address] [place] [address] [address] [place] [address] Referral ID Status Reason Start Date Expiration Date Visits Requested Visits Authorized [id number] New Request Auto-Generat ed Referral 06/23/2024 06/23/2025 1 1 * MRI/CT (Routine) - New Request Specialty Diagnoses / Procedures Referred By Claritza schumacher Referred To Contact CT IMAGING Diagnoses Radiculopathy of lumbar region Spinal stenosis of lumbar region without neurogenic claudication Procedures CT LUMBAR SPINE WO IVCON CT LUMBAR SPINE W/O CONTRAST MATERIAL Kenan Godoy APRN.GAMING CASHIER [address] [place] [id number] Imaging [place] [address] Referral ID Status Reason Start Date Expiration Date Visits Requested Visits Authorized [id number] New Request Auto-Generat ed Referral 06/23/2024 07/23/2025 1 1 [facility] Advance Directives No Advanced Directives Records Found [...] Active Gina Guerrero MD Attending Provider Active Merchandising Execution Manager Relationship Specialty Start Date End Date Aby Mark CNP [address] [place] [id number] Referring Family Medicine 03/02/24 Merchandising Execution Manager Relationship Specialty Start Date End Date Aby Mark CNP [address] [place] [address] Referring Family Medicine 03/02/24 Merchandising Execution Manager Relationship Specialty Start Date End Date Aby Mark CNP [address] [place] [address] Referring Family Medicine 03/02/24 Merchandising Execution Manager Relationship Specialty Start Date End Date Aby Mark CNP [address] [place] [phone] Referring Family Medicine 03/02/24 Merchandising Execution Manager Relationship Specialty Start [place] [address] [place] [address] PCP - General Cardiology 12/05/24 Merchandising Execution Manager Relationship Specialty Start [place] [address] [place] [address] PCP - General Cardiology 12/05/24 Goals (unrecognized section and content) Goals may be documented in a n alternate sectionGoals may be documented in an alternate sectionGoals may be documented in an alternate sectionGoals may be documented in an alternate sectionNo InformationNo Information INFORMATION SOURCE (unrecogn ized section and content) DATE CREATED AUTHOR 08/01/2022 [facility] dical Specialist DATE CREATED AUTHOR AUTHOR'S ORGANIZ ATION 11/06/2022 [facility] DATE CREATED AUTHOR AUTHOR'S ORGANIZ ATION 11/24/2023 [facility] DATE CREATED AUTHOR AUTHOR'S ORGANIZ ATION 09/03/2024 [facility] DATE CREATED AUTHOR AUTHOR'S ORGANIZ ATION 09/28/2024 [facility] DATE CREATED AUTHOR AUTHOR'S ORGANIZ ATION 12/21/2024 [facility] dical Specialists EPIC REASON FOR VISIT (unrecogniz [...] or prosecute any alcohol or drug abuse patient.[facility] System[facility] the event this information is protected by the Federal Confidentiality of Alcohol and Drug Abuse Patient Records regulations: The Federal rules restrict any use of the information to criminally investigate or prosecute any alcohol or drug abuse patient.[facility] SystemIn the event this information is protected by the Federal Confidentiality of Alcohol and Drug Abuse Patient Records regulations: The Federal rules restrict any use of the information to criminally investigate or prosecute any alcohol or drug abuse patient.[facility] SystemIn the event this information is protected by the Federal Confidentiality of Alcohol and Drug Abuse Patient Records regulations: The Federal rules restrict any use of the information to criminally investigate or prosecute any alcohol or drug abuse patient.[facility] FOR RECORDS PERTAINING TO PATIENTS WHO ARE [...] BE BASED ON THE PRIMARY CLINICAL RECORDS. [facility] [employer] [facility]. provides no warranty or guarantee of the accuracy or completeness of information in this document.
[2025-02-05 11:44] VITALS: BP 141/89; PULSE 100; TEMP 37.2; O2SAT 97
[2025-02-05 12:36] VITALS: PULSE 106; O2SAT 95
[2025-02-05 12:37] VITALS: BP 150/77
[2025-02-05] MEDS: METHYLPREDNISOLONE ACETATE 40 MG/ML VIAL 80 MG INJ (12:37)
[2025-02-05] MEDS: LIDOCAINE HCL 2% 400 MG/20 ML MDV INJ (12:37)
[2025-02-05] MEDS: BUPIVACAINE HCL 0.25% PF 25 MG/10 ML VIAL 4 ML INJ (12:37)
[2025-02-05] MEDS: IOHEXOL 240 MG/ML - 10 ML VIAL 24 MG INJ (12:37)
[2025-02-05 12:38] VITALS: BP 147/78; PULSE 103; O2SAT 98
--- NOTE | 2025-02-05 12:43 | W.PM.PROCNOT ---
Date of procedure: 02/05/25 Pre-op diagnosis: Pain due to bilateral sacroiliitis Post-op diagnosis: same as pre-op Procedure: Procedure: Bilateral sacroiliac joint injection Medications: Bupivacaine 0.25% 3cc, depomedrol 40mg x2 After informed consent was obtained, the patient was brought to the medical procedure unit and placed in the prone position, when a timeout was completed verifying correct patient, procedure, site, positioning, implant, and/or special equipment.? The skin overlying the area was prepped and draped in standard sterile fashion using alcohol.? A 25-gauge needle was inserted towards the left sacroiliac joint under direct fluoroscopic imaging.? Needle tip was advanced until the joint was encountered.? We instilled a total of 2 mL of solution.? The same procedure was then completed on the right side.? Postoperatively needles were removed.? The patient tolerated the procedure well without complication.? The patient reported reduction in pain symptoms postoperatively. Anesthesia: Local Surgeon: Aaron Mosqueda Pathology: none sent Condition: stable Disposition: no change
== END 2025-02-05 12:45 | disposition home or self-care (01) ==
LOC: SURGOUT 11:30
PROVIDERS: PCP Nurse Practitioner Family; Visit Provider Anesthesiology
DX: M46.1 Sacroiliitis, not elsewhere classified (principal)
CPT/HCPCS: 27096; J0665; J1010; Q9966

== ENCOUNTER 2025-02-15 15:02 | Outpatient (OUT) | payer BC, SELFPAY ==
--- OUTSIDE RECORDS SUMMARY | 2025-02-15 15:04 | XMS_ITS | Encounter Summary ---
Author Organization [facility] Address [address] [place] [address] Care Team Providers Care Sole Rounder Name Role Phone Aby Yu CNP Unavailable [phone] Source Comments In the event this information is protected by the Federal Confidentiality of Alcohol and Drug AbusePatient Records regulations: The Federal rules restrict any use of the information to criminally investigate or prosecute any alcohol or drug abuse patient.[facility] Encounter Details Date Type Department Care Team (Late st Contact Info) Description 07/06/2024 Patient Msg Neurology [address] [place], [place] [id number] Provider, [facility]cf EMG Order Social History Tobacco [...] is lower risk 4 06/09/2024 Data from: https://www.neighborhoodatlas.medicine.[facility].edu/. Last address used for calculation [address] [place] [address] 06/09/2024 Comments Unknown Sex and Gender Information Value Date Recorded Sex Assigned at Not on file Legal Sex Female 1:04 PM EST Gender Identity Not on file Sexual Orientation Not on file documented as of this encounter Plan of Treatment Not on file documented as of this encounter Visit Diagnoses Not on filedocumented in this encounter Care Teams Sole Rounder Relationship Specialty Start Date End Date Aby Yu CNP [address] [place] [address] Referring Family Medicine 03/02/24 documented as of this encounter
--- OUTSIDE RECORDS SUMMARY | 2025-02-15 15:04 | XMS_ITS | Clinical Summary ---
Author Organization [email or web address] Address [id number] [address] [place] [address] Care Team Providers Care Conditioning Yard Supervisor Name Role Phone Unavailable Primary Care Provider [...]
--- OUTSIDE RECORDS SUMMARY | 2025-02-15 15:04 | XMS_ITS | Clinical Summary ---
Author Organization [facility] Address [address] [facility], [address] [place] [address] Care Team Providers Care Tube Operator Name Role Phone Aimee Aby STEP DOWN SPECIALIST - CIRCULAR RIPSAW OPERATOR Primary Care Pro vider Allergies Active Allergy [...] of 3 - 19+ 3-dose series) 10/03/1987 Breast cancer screen 2008 Lipids 2008 Colonoscopy 2013 Colorectal Cancer Screen 2013 FIT/FOBT: Average risk 2013 Fecal-DNA (Cologuard): [place] ge risk 2013 Sigmoidoscopy/CT colonography 2013 Pneumococcal 50+ years Vacci ne (1 of 1 - PCV) 2018 Shingles vaccine (1 of 2) 2018 Flu vaccine (#1) 12/29/2024 05/23/2020, 03/22/2019 COVID-19 Vaccine (3 - 2024-2 6 season) 2025 11/09/2020, 10/12/2020 Hepatitis A vaccine Aged Out No longe [...] Insurance BCBS OUT OF STATE Care Teams Tube Operator Relationship Specialty Start Date End Date Aby Yu APRN - ANGEL [address] [place] [address] PCP - General Family Medicine 10/07/23
--- OUTSIDE RECORDS SUMMARY | 2025-02-15 15:05 | XMS_ITS | Encounter Summary ---
Author Organization [facility] Address [address] [facility] [place] [address] Care Team Providers Care Machine Former Name Role Phone Osvaldo Browne MD Primary Care Provider Encounter Details Date Type Department Care Team ([facility] Contact Info) Description 12/04/2024 Orders Only [facility] [address] [facility] [address] [place] [phone] Aby Yu MD [address] [place] [address] Social History Tobacco Use Types Packs/Day Years Used Date Smoking Tobacco: Never Assessed Comments Unknown Sex and Gender Information Value Date Recorded Sex Assigned at Not on file Legal Sex Female 6:48 PM EDT Gender Identity Not on file Sexual Orientation Not on file documented as of this encounter Plan of Treatment Upcoming Encounters Date Type Department Care Team (Late Contact Info) Description 02/26/2025 3:20 PM EDT Office Visit [facility] [address] [facility] [address] [place] [phone] Renu Beltrán MD [address] [facility] [address] [place], [place] [id number] documented as of this encounter Procedures Procedure [...] on filedocumented in this encounter Care Teams Machine Former Relationship Specialty [place] [address] [address] [place] [id number] PCP - General Cardiology 12/05/24 documented as of this encounter
--- OUTSIDE RECORDS SUMMARY | 2025-02-15 15:05 | XMS_ITS | Encounter Summary ---
Author Organization [facility] Address [address] [place] [address] Care Team Providers Care Food Mixer Repairer Name Role Phone Aby Yu CNP Unavailable [phone] Source Comments In the event this information is protected by the Federal Confidentiality of Alcohol and Drug AbusePatient Records regulations: The Federal rules restrict any use of the information to criminally investigate or prosecute any alcohol or drug abuse patient.[facility] Encounter Details Date Type Department Care Team (Late st Contact Info) Description 06/26/2024 Patient Msg Neurology [address] [place], [place] [phone] Provider, Ccf Requested EMG Appointment Social History [...] is lower risk 4 06/09/2024 Data from: https://www.neighborhoodatlas.medicine.[facility].edu/. Last address used for calculation [address] [place] [address] 06/09/2024 Comments Unknown Sex and Gender Information Value Date Recorded Sex Assigned at Not on file Legal Sex Female 1:04 PM EST Gender Identity Not on file Sexual Orientation Not on file documented as of this encounter Plan of Treatment Not on file documented as of this encounter Visit Diagnoses Not on filedocumented in this encounter Care Teams Food Mixer Repairer Relationship Specialty Start Date End Date Aby Yu CNP [address] [place] [address] Referring Family Medicine 03/02/24 documented as of this encounter
--- OUTSIDE RECORDS SUMMARY | 2025-02-15 15:05 | XMS_ITS | Encounter Summary ---
Author Organization [facility] Address [address] [place] [address] Care Team Providers Care Tool Die Maker Name Role Phone Aby Yu CNP Unavailable [phone] Source Comments In the event this information is protected by the Federal Confidentiality of Alcohol and Drug AbusePatient Records regulations: The Federal rules restrict any use of the information to criminally investigate or prosecute any alcohol or drug abuse patient.[facility] Encounter Details Date Type Department Care Team (Late st Contact Info) Description 06/29/2024 Patient Msg Neurology [address] [place], [place] [phone] Provider, Ccf EMG Order Social History Tobacco [...] is lower risk 4 06/09/2024 Data from: https://www.neighborhoodatlas.medicine.[facility].edu/. Last address used for calculation [address] [place] [address] 06/09/2024 Comments Unknown Sex and Gender Information Value Date Recorded Sex Assigned at Not on file Legal Sex Female 1:04 PM EST Gender Identity Not on file Sexual Orientation Not on file documented as of this encounter Plan of Treatment Not on file documented as of this encounter Visit Diagnoses Not on filedocumented in this encounter Care Teams Tool Die Maker Relationship Specialty Start Date End Date Aby Yu CNP [address] [place] [address] Referring Family Medicine 03/02/24 documented as of this encounter
--- OUTSIDE RECORDS SUMMARY | 2025-02-15 15:05 | XMS_ITS | Clinical Summary ---
Author Organization [facility] Address [address] [place] [address] Care Team Providers Care Fabric Lay Out Worker Name Role Phone Aby Yu CNP Unavailable [phone] Allergies Active Allergy Reactions Criticality Noted Date [...] inhalations in a 24 hour period. Active Social History Tobacco Use Types Packs/Day Years Used Date Smoking Tobacco: Every Day Cigarettes Smokeless Tobacco: Never Tobacco Cessation:Ready to Q uit: Not Asked; Counseling Given: Not Answered Alcohol Use Standard Drinks/Week Comments Not Currently 0 (1 standard drink = 0.6 oz pur e alcohol) PHQ-2 Answer Date Recorded PHQ-2 score 3 09/25/2024 Area Deprivation Index Answer Date Joseol rded National Score (1-100), lower number is lower ri sk 61 06/09/2024 State Score (1-10), lower number is lower risk 4 06/09/2024 Data from: https://www.neighborhoodatlas.medicine.[facility]/. Last address used for calculation [address] [facility] 06/09/2024 Comments No Sex and Gender [...] 2013 Shingrix Vaccine (1 of 2) 2018 Influenza Vaccine (#1) 2025 05/23/2020, 2018 Procedures Procedure Name Priority Date/Time Associated Diagnosis Comments MRI OUTSIDE CD DICOM IMPORT 01/02/2025 from Last 3 Months Results * OT-MR CERVICAL SPINE WO CON IMPORT (01/02/2025) Anatomical Region Laterality Modality Other 01/02/2025 Narrative 01/09/2025 1:47 AM EDT Images were obtained outside of [facility] Procedure Note Provider, f Imaging Radisson - 01/09/2025 Images were obtained outside of [facility] Cc Provider MRI Final Result from Last 3 Months Insurance CARD PPO OOS Care Teams Fabric Lay Out Worker Relationship Specialty Start Date End Date Aby Yu CNP [address] [place] [address] Referring Family Medicine 03/02/24
--- OUTSIDE RECORDS SUMMARY | 2025-02-15 15:05 | XMS_ITS | Encounter Summary ---
Author Organization [facility] Address [address] [place] [address] Care Team Providers Care Industry Segment Specialist Name Role Phone Aby Yu CNP Unavailable [phone] Source Comments In the event this information is protected by the Federal Confidentiality of Alcohol and Drug AbusePatient Records regulations: The Federal rules restrict any use of the information to criminally investigate or prosecute any alcohol or drug abuse patient.[facility] Encounter Details Date Type Department Care Team (Late st Contact Info) Description 07/14/2024 Patient Msg Neurology [address] [place], [place] [phone] Provider, Ccf EMG Order Social History Tobacco [...] is lower risk 4 06/09/2024 Data from: https://www.neighborhoodatlas.medicine.[facility].edu/. Last address used for calculation [address] [place] [address] 06/09/2024 Comments Unknown Sex and Gender Information Value Date Recorded Sex Assigned at Not on file Legal Sex Female 1:04 PM EST Gender Identity Not on file Sexual Orientation Not on file documented as of this encounter Plan of Treatment Not on file documented as of this encounter Visit Diagnoses Not on filedocumented in this encounter Care Teams Industry Segment Specialist Relationship Specialty Start Date End Date Aby Yu CNP [address] [place] [address] Referring Family Medicine 03/02/24 documented as of this encounter
--- OUTSIDE RECORDS SUMMARY | 2025-02-15 15:09 | XMS_ITS | CCD ---
Author Organization [facility] Care Team Providers Care Primary Montessori Teacher Name Role Phone Roberto Roth Primary Care Provider Justice Cruz Attending Provider [phone] DO Roberto Roth Primary Care Provider MD Hood Rausch Attending Provider DO Roberto Roth Primary Care Provider [phone] CALVIN Mark Attending Provider MD Paresh Tian Attending Provider DO Roberto Roth Primary Care Provider [phone] CALVIN Mark Attending Provider MD Paresh Tian [...] SINGH ., ADA Consulting Unavailable IRA, DR RBOERTO Bhakta Primary Care Unavailable LAKSHMIPATHY ., NARENDRANATH [...] Care Unavailable SINGH ., ADA Consulting Unavailable ARUSCH ., DR HOOD Hernandez Consulting Unavailable RAUSCH [...] Attending Unavailable Gina Guerrero Admitting Unavailable [employer]stein PROGRAM SERVICES ASSISTANT, Aby Unavailable JOELLE SARMIENTO Attending Unavailable ABY MARK Referring Unavailable JOELLE SARMIENTO Attending Unavailable ABY MARK Referring Unavailable JOELLE SARMIENTO Attending Unavailable Pavan BUSTILLO [facility] Primary Care Provider [phone] RENU BRANDON Attending Unavailable Giedraitis , Andtawanda Musa Attending Unavailable Giedraitis , Andrius Musa Attending Unavailable Giedraitis MD, Andrius Vytautrain Attending Unavailable Giedraitis MD, Andrius Vytautrain Attending Unavailable Unavailable Unavailable Unavailable Allergies Allergy Classification Reported Allergen(s) Allergy Type Date of Onset Reaction(s) Facility (6 sources) Amoxicillin; Translations: [amoxicillin] Drug Allergy 05-14-20 [facility] (11 sources) Penicillins; Translations: [Penicillins] Propensity to adverse reactions 07-24-19 14 Rash, Diarrhea [facility] (6 sources) clavulanic acid; Translations: [clavulanic acid] Propensity to adverse reactions 05-14-20 [address] [facility] (3 sources) Amoxicillin / Clavulanate; Translations: [Augmentin] Drug Allergy 07-24-19 14 Unknown [facility] (2 sources) Azithromycin Drug Allergy diarrhea [facility] Other (4 sources) Penicillin G Drug Allergy 12-20-19 25 Rash [facility] Other (2 sources) Amoxicillin-Pot Clavulanate Drug Allergy [...] daily as needed for pain HYDROcodone-acetami nophen ([place]) 7.5-325 MG tablet TAKE ONE TABLET BY MOUTH THREE TIMES A DAY NEEDED FOR PAIN. MUST LAST 30 DAYS 12/08/2024 Active Start: 03-18-2019 End: 05-23-2020 take 1 tablet by mouth three times daily Hydrocodone-Acetaminophen ([place]) 5-325 mg Tablet Discontinued 1 TAB PO Three times daily March 18, 2019 12:00am May 23, 2020 4:59pm take 7.5 mg by mouth three times daily hydrocodone/acetaminophen ([place] ORAL) T francie 7.5 mg by mouth three times a day. 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 - rwewtzvfxmq-tftrpgtve-v ilanter (TRELEGY ELLIPTA) 100-62.5-25 mcg inhalation powder [...] Encounter Status:Closed by KENAN GODOY on 06/23/24 [facility] Reena 06-09-2024 CNOV Office Visit (SPNS[facility] ) NOEKIM ([id number]) 1970 F Date Time Provider Department 06/09/24 4:00 PM JOELLE SARMIENTO [facility] During your visit today, we recorded the following information about you: Pulse Blood pressure Weight Height 92/minute 104/52 98 kg 1.6 m Joelle Sarmiento MD 06/16/2024 5:55 PM Signed Rescheduled, no charge Referring Provider: ABY MARK [[id number]] Allergies As of Date: 06/09/2024 Noted Allergy [...] mg by mouth daily at bedtime. - rnymdwgqgys-ilclxvxnh-h ilanter (TRELEGY ELLIPTA) 100-62.5-25 mcg inhalation powder [...] Status:Closed by JOELLE SARMIENTO on 06/16/24 Normal [facility] MRI Lumbar Spine w/o + w/on 07-30-2022 [...] by Justice Lucas on 07/31/2022 0915 Normal [facility] [employer] Automated erythrocytes count in urine sediment (number/area)Ordered By: Paresh Tian on 07-16-2022 RBC Auto (Urine sed) [#/Area] 1-2 [HPF] 0-[address] [facility] Automated leukocytes count i n urine sediment (number/area)Ordered By: Paresh Tian on 07-16-2022 WBC Auto (Urine sed) [#/Area] 20-49 [HPF] 0-[address] [facility] Basophils Auto (Bld) [#/Vol] Ordered By: Paresh Tian on 07-16-2022 Basophils (Bld) [#/Vol] 0.0 10*3/uL 0.0-0.[address] [facility] Basophils/100 WBC Auto (Bld) Ordered By: Paresh Tian on 07-16-2022 Basophils/100 WBC (Bld) 0.4 % . [facility] Bilirubin Test strip Ql (U)O rdered By: Paresh Tian on 07-16-2022 Bilirubin Ql (U) Negative Negative [facility] C reactive protein [Mass/vol ume] in Serum or PlasmaOrdered By: Paresh Tian on 07-16-2022 CRP [Mass/Vol] 0.8 mg/dL 0.0-1.[address] [facility] Color Auto (U)Ordered By: Afia Tian on 07-16-2022 Color (U) Yellow Yellow [facility] Creatinine and Glomerular fi ltration rate.predicted panel (S/P/Bld)Ordered By: Paresh Tian on 07-16-2022 Creatinine [Mass/Vol] 0.74 mg/dL 0.44-1.[address] [facility] Eosinophils Auto (Bld) [#/Vo l]Ordered By: Paresh Tian on 07-16-2022 Eosinophils (Bld) [#/Vol] 0.1 10*3/uL 0.0-0.[address] [facility] Eosinophils/100 WBC Auto (Bl d)Ordered By: Paresh Tian on 07-16-2022 Eosinophils/100 WBC (Bld) 1.1 % . [facility] Erythrocyte distribution wid th Auto (RBC) [Ratio]Ordered By: Paresh Tian on 07-16-2022 Erythrocyte distribution width (RBC) [Ratio] 13.0 % 11.9-15.[address] [facility] Erythrocyte sedimentation ra te by Photometric methodOrdered By: Paresh Tian on 07-16-2022 ESR Photometric method (Bld) [Velocity] 45 mm/hr 0-[address] [facility] Estimated glomerular filtrat ion rate (GFR) non- AmericanOrdered By: Paresh Tian on 07-16-2022 GFR/1.73 sq M.predicted among non-blacks MDRD (S/P/Bld) [Vol rate/Area] > 60 mL/Min [facility] Hematocrit Auto (Bld) [Volum e fraction]Ordered By: Paresh Tian on 07-16-2022 Hematocrit (Bld) [Volume fraction] 45.3 % 34.0-46.[address] [facility] Hemoglobin [Mass/volume] in BloodOrdered By: Paresh Tian on 07-16-2022 Hemoglobin (Bld) [Mass/Vol] 15.2 g/dL 11.8-15.[address] [facility] Ketones Auto test strip (U) [Mass/Vol]Ordered By: Paresh Tian on 07-16-2022 Ketones (U) [Mass/Vol] Negative Negative [facility] Laboratory - UrinalysisOrder ed By: Paresh Tian on 07-16-2022 Hyaline casts LM Ql (Urine sed) 0-8 [LPF] 0-[address] [facility] Leukocytes [#/volume] correc scot for nucleated erythrocytes in Blood by Automated counOrdered By: Paresh Tian on 07-16-2022 WBC corrected for nucl RBC Auto (Bld) [#/Vol] 10.4 10*3/uL 3.8-11.[address] [facility] Lymphocytes Auto (Bld) [#/Vo l]Ordered By: Paresh Tian on 07-16-2022 Lymphocytes (Bld) [#/Vol] 3.7 10*3/uL 1.00-4.[address] [facility] Lymphocytes/100 WBC Auto (Bl d)Ordered By: Paresh Tian on 07-16-2022 Lymphocytes/100 WBC (Bld) 35.0 % . [facility] MCH Auto (RBC) [Entitic mass ]Ordered By: Paresh Tian on 07-16-2022 MCH (RBC) [Entitic mass] 33.8 pg 24.7-34.[address] [facility] MCHC Auto (RBC) [Mass/Vol]Or dered By: Paresh Tian on 07-16-2022 MCHC (RBC) [Mass/Vol] 33.6 g/dL 32.0-35.0 [facility] MCV Auto (RBC) [Entitic vol] Ordered By: Paresh Tian on 07-16-2022 MCV (RBC) [Entitic vol] 100.6 fL 80-100 [facility] Mitotic spindle apparatus Ab [Titer] in Serum or Plasma by ImmunofluorescenceOrdered By: Paresh Tian on 07-16-2022 Mitotic spindle apparatus Ab IF [Titer] 1:[address] [facility] Comment on above: ICAP nomenclature: A C-25,26 Monocytes Auto (Bld) [#/Vol] Ordered By: Paresh Tian on 07-16-2022 Monocytes (Bld) [#/Vol] 0.7 10*3/uL 0.0-0.[address] [facility] Monocytes/100 WBC Auto (Bld) Ordered By: Paresh Tian on 07-16-2022 Monocytes/100 WBC (Bld) 6.8 % . [facility] Neutrophils Auto (Bld) [#/Vo l]Ordered By: Paresh Tian on 07-16-2022 Neutrophils (Bld) [#/Vol] 5.9 10*3/uL 1.8-7.[address] [facility] Neutrophils/100 WBC Auto (Bl d)Ordered By: Paresh Tian on 07-16-2022 Neutrophils/100 WBC (Bld) 56.7 % . [facility] Nitrite Test strip Ql (U)Ord ered By: Paresh Tian on 07-16-2022 Nitrite Ql (U) Negative Negative [facility] No Panel InformationOrdered By: Paresh Tian on 07-16-2022 Anti-Nuclear Antibody Comment 2 See comment . [facility] Comment on above: For more information about Hep-2 cell patterns useArviragopaPrimet Precision Material[employer]Game9z[employer], the official website for the InternationalConArviragosus on Antinuclear Antibody (ASTER) Patterns (ICAP). --------A positive ASTER result may occur in healthy individuals (lowtiter) or be associated with a variety of diseases. Seeinterpretation chart which is not all inclusive:Pattern Antigen Detected Suggested Disease Association Homogeneous DNA(ds,ss), SLE - High titers Nucleosomes, Histones Drug-induced SLE Speckled Sm, FUEL HANDLER, SCL-70, SLE,MCTD,PSS (diffuse form), SS-A/SS-B Sjogrens Nucleolar SCL-70, PM-1/SCL High titers Scleroderma, PM/DM Centromere Centromere PSS (limited form) w/Crest syndrome variable Nuclear Dot Sp100,r29-[id number] Primary Biliary Cirrhosis Nuclear GP210, Primary Biliary CirrhosisMembrane kailyn A,B,C Performed at: [facility] [id number] [place], [place] [id number] Director: Collin Rodriguez PhD, Phone: [phone] Estimated GFR () > 60 mL/Min [facility] Comment on above: GFR estimated refere nce range: According to KDOQI guidelines, <60 ml/min/1.73m2 is sufficient to diagnose a patient with chronic kidney disease. Pharmacy Creatinine Clearance (Chem N/A [facility] Total Complement (CH50) >60 U/mL >41 [facility] Comment on above: Age Male Female [...] to determine out of range values.Performed at: [employer] [place], [place] [id number] Director: Collin Rodriguez PhD, Phone: [phone] Nucleated erythrocytes [Pres ence] in Blood by Automated countOrdered By: Paresh Tian on 07-16-2022 Nucleated RBC Auto Ql (Bld) 0.1 /100{WBC} 0-0.[address] [facility] Platelet mean volume Auto (B ld) [Entitic vol]Ordered By: Paresh Tian on 07-16-2022 Platelet mean volume (Bld) [Entitic vol] 8.4 fL 6.3-10.[address] [facility] Platelets Auto (Bld) [#/Vol] Ordered By: Paresh Tian on 07-16-2022 Platelets (Bld) [#/Vol] 242 10*3/uL 150-[address] [facility] Protein Auto test strip (U) [Mass/Vol]Ordered By: Paresh Tian on 07-16-2022 Protein (U) [Mass/Vol] Negative Negative [facility] RBC Auto (Bld) [#/Vol]Ordere d By: Paresh Tian on 07-16-2022 RBC (Bld) [#/Vol] 4.50 10*6/uL 3.60-5.00 [facility] Serum homogeneous pattern an tinuclear antibody (ASTER) titerOrdered By: Paresh Tian on 07-16-2022 Homogenous nuclear Ab pattern (S) [Titer] N/A [facility] Serum nuclear antibody titer Ordered By: Paresh Tian on 07-16-2022 Nuclear Ab (S) [Titer] Positive . [facility] Comment on above: Negative <1:80 Ramiro leblanc 1:80 Positive >1:80 Serum or plasma complement C 3 measurement (mass/volume)Ordered By: Paresh Tian on 07-16-2022 Complement C3 [Mass/Vol] 197 mg/dL 82-[address] [facility] Comment on above: Performed at: [place] [id number] Director: Collin Rodriguez PhD, Phone: [phone] Serum or plasma complement C 4 measurement (mass/volume)Ordered By: Paresh Tian on 07-16-2022 Complement C4 [Mass/Vol] 42 mg/dL 12-[address] [facility] Specific gravity Auto test s trip (U) [Rel density]Ordered By: Paresh Tian on 07-16-2022 Specific gravity (U) [Rel density] 1.018 1.001-1.[address] [facility] Squamous epithelial cells de tection in urine sediment by light microscopyOrdered By: Paresh Tian on 07-16-2022 Epithelial cells.squamous LM Ql (Urine sed) 0-1 [HPF] 0-[address] [facility] Urine bacteria detection by automated methodOrdered By: Paresh Tian on 07-16-2022 Bacteria Auto Ql (U) 4+ None Seen [facility] Urine clarity by refractomet ry automatedOrdered By: Paresh Tian on 07-16-2022 Clarity Refractometry automated (U) Clear Clear [facility] Urine culture routineOrdered By: Paresh Tian on 07-16-2022 Bacteria identified Cx Nom (U) Escherichia coli [facility] Urine glucose measurement by automated test strip (mass/volume)Ordered By: Paresh Tian on 07-16-2022 Glucose Auto test strip (U) [Mass/Vol] Normal mg/dL Normal [facility] Urine hemoglobin detection b y automated test stripOrdered By: Paresh Tian on 07-16-2022 Hemoglobin Auto test strip Ql (U) Negative Negative [facility] Urine leukocyte esterase det ection by automated test stripOrdered By: Paresh Tian on 07-16-2022 Leukocyte esterase Auto test strip Ql (U) 3+ Negative [facility] Urobilinogen Auto test strip (U) [Mass/Vol]Ordered By: Paresh Tian on 07-16-2022 Urobilinogen (U) [Mass/Vol] Normal mg/dL Normal [facility] WBC Auto (Bld) [#/Vol]Ordere d By: Paresh Tian on 07-16-2022 WBC (Bld) [#/Vol] 10.4 10*3/uL 3.8-11.6 [facility] pH Auto test strip (U)Ordere d By: Paresh Tian on 07-16-2022 pH (U) 6.5 [pH] 5.0-9.[address] [facility] XR HIPS ZEINA 3_4V WO PELVISon [...] DASHA KHAN Date: 2022-05-15 07:49 Normal [facility] Covid-19 PCR ([facility])on SARS-CoV-2 (COVID-19) RNA AMBERLY+probe Ql (Unsp spec) Not detected Normal NOT DETECTED [facility] Comment on above: Result Comment: This test is not yet approved or cleared by the [place] FDA. When there are no FDA-approved or cleared tests available, and other criteria are met, FDA can make tests available under an emergency access mechanism called an Emergency Use Authorization (EUA). The EUA for this test is supported by the [place] of Health and Human Service's (HHS's) declaration [...] with SARS-CoV-2. Performed By: #### C [facility] #### [facility] [address] [place] [address] Dr. Narendra Jacobsen COVID-19 Positive/NegativeOr dered By: Baljinder Rausch on 01-31-2022 SARS-CoV-2 (COVID-19) N gene AMBERLY+probe Ql (Resp) Negative Negative [facility] Comment on above: Testing for SARS-CoV -2 by RT-PCR This test was developed and its performance characteristics determined by [employer] ([employer]) and validated at the [facility]. This test has not been FDA [...] COVID-19 Positive/Negativeon 05-20-2020 COVID-19 Positive/Negative Negative Negative [facility] Comment on above: Testing for SARS-CoV -2 by RT-PCRThis test was developed and its performance characteristics determined by [employer] ([employer]) and validated at the [facility]. This test has not been FDA [...] Otheron 05-20-2020 Coronavirus 2019 PCR Interp N/A [facility] Automated basophil %on 05-14 Basophils/100 WBC (Bld) 0.5 % F [facility] Automated basophil counton 1 2-15-2020 Basophils (Bld) [#/Vol] 0.0 10*3/uL 0.0-0.2 [facility] Automated blood lymphocyte c ount (number/volume)on 05-14-2020 Lymphocytes (Bld) [#/Vol] 2.8 10*3/uL 1.00-4.8 [facility] Automated blood lymphocyte c ount as percentage of total leukocyteson 05-14-2020 Lymphocytes/100 WBC (Bld) 35.0 % [facility] Automated blood monocyte cou nton 05-14-2020 Monocytes (Bld) [#/Vol] 0.6 10*3/uL 0.0-0.8 [facility] Automated blood platelet cou nt (count/volume)on 05-14-2020 Platelets (Bld) [#/Vol] 225 10*3/uL 150-450 [facility] Automated blood platelet jose n volume measurementon 05-14-2020 Platelet mean volume (Bld) [Entitic vol] 8.2 fL 6.3-10.7 [facility] Automated eosinophil %on Eosinophils/100 WBC (Bld) 1.5 % [facility] Automated eosinophil counton 05-14-2020 Eosinophils (Bld) [#/Vol] 0.1 10*3/uL 0.0-0.45 [facility] Automated erythrocyte distri bution width ratioon 05-14-2020 Erythrocyte distribution width (RBC) [Ratio] 12.3 % 11.9-15.3 [facility] Automated erythrocyte mean c orpuscular hemoglobin (mass per erythrocyte)on 05-14-2020 MCH (RBC) [Entitic mass] 35.2 pg 24.7-34.3 [facility] Automated erythrocyte mean c orpuscular hemoglobin concentration measurement (mass/volon 05-14-2020 MCHC (RBC) [Mass/Vol] 34.2 g/dL 32.0-35.0 [facility] Automated erythrocyte mean c orpuscular volumeon 05-14-2020 MCV (RBC) [Entitic vol] 102.9 fL 80-100 F [facility] Automated monocyte %on 05-14 Monocytes/100 WBC (Bld) 7.0 % F [facility] Automated neutrophil %on Neutrophils/100 WBC (Bld) 56.0 % [facility] Blood erythrocytes automated count (number/volume)on 05-14-2020 RBC (Bld) [#/Vol] 4.08 10*6/uL 3.60-5.00 [facility] Blood hemoglobin measurement (mass/volume)on 05-14-2020 Hemoglobin (Bld) [Mass/Vol] 14.3 g/dL 11.8-15.4 [facility] Blood leukocytes automated c ount (number/volume)on 05-14-2020 WBC (Bld) [#/Vol] 7.9 10*3/uL 4.5-11.0 [facility] Blood neutrophil count by au tomated method (number/volume)on 05-14-2020 Neutrophils (Bld) [#/Vol] 4.4 10*3/uL 1.8-7.7 [facility] Estimated glomerular filtrat ion rate (GFR) non- Americanon 05-14-2020 GFR/1.73 sq M predicted among non-blacks MDRD (S/P/Bld) [Vol rate/Area] mL/min/{1.73_m2} [facility] Hematocrit [Volume Fraction] of Blood by Automated counton 05-14-2020 Hematocrit (Bld) [Volume fraction] 41.9 % 34.0-46.4 [facility] Otheron 05-14-2020 GFR/1.73 sq M.predicted MDRD (S/P/Bld) [Vol rate/Area] mL/min/{1.73_m2} [facility] Comment on above: GFR estimated refere nce range: According to KDOQI guidelines, <60 ml/min/1.73m2 is sufficient to diagnose a patient with chronic kidney disease. Nucleated RBC/100 WBC (Bld) [Ratio] 0.1 % 0-0.5 [facility] Creatinine Clearance (Chem N/A [facility] Serum or plasma calcium octavio urement (mass/volume)on 05-14-2020 Calcium [Mass/Vol] 10.1 mg/dL 8.2-10.2 [facility] Serum or plasma chloride jose surement (moles/volume)on 05-14-2020 Chloride [Moles/Vol] 101 mmol/L 95-114 [facility] Serum or plasma creatinine m easurement with calculation of estimated glomerular filtron 05-14-2020 Creatinine [Mass/Vol] 0.60 mg/dL 0.44-1.03 [facility] Serum or plasma glucose octavio urement (mass/volume)on 05-14-2020 Glucose [Mass/Vol] 94 mg/dL 70-100 [facility] Comment on above: ADA recommended refe rence rangeRandom Glucose Reference Range is dependent on time and content of last meal. Glucose of more than 200 mg/dL in a nonstressed, ambulatory subject supports the diagnosis of Diabetes Mellitus. Serum or plasma potassium me asurement (moles/volume)on 05-14-2020 Potassium [Moles/Vol] 4.3 mmol/L 3.5-5.1 [facility] Serum or plasma sodium measu rement (moles/volume)on 05-14-2020 Sodium [Moles/Vol] 140 mmol/L 136-146 [facility] Serum or plasma total carbon dioxide measurement (moles/volume)on 05-14-2020 CO2 [Moles/Vol] 27.2 mmol/L 22.0-30.0 [facility] Serum or plasma urea nitroge n measurement (mass/volume)on 05-14-2020 Urea nitrogen [Mass/Vol] 7 mg/dL 9-23 [facility] Vital Signs Date Time Vital Sign Value Performing Clinician Facility 12-19-2024 15:03-0400 Body height 160 cm Renu Brandon MD Work Phone: [facility] 12-19-2024 15:03-0400 Body mass index (BMI) [Ratio] 41.1 kg/m2 Renu Brandon MD Work Phone: [facility] 12-19-2024 15:03-0400 Body weight 105.23 kg Renu Brandon MD Work Phone: [facility] 12-19-2024 15:03-0400 Diastolic blood pressure 69 mm[Hg] Renu Brandon MD Work Phone: [facility] 12-19-2024 15:03-0400 Heart rate 96 /min Renu Brandon MD Work Phone: [facility] 12-19-2024 15:03-0400 Systolic blood pressure 115 mm[Hg] Renu Brandon MD Work Phone: [facility] 09-26-2024 14:59-0400 Body height 160 cm Joelle Sarmiento MD Work Phone: [facility] 09-26-2024 14:59-0400 Body mass index (BMI) [Ratio] 38.14 kg/m2 Joelle Sarmiento MD Work Phone: [facility] 09-26-2024 14:59-0400 Body weight 97.65 kg Joelle Sarmiento MD Work Phone: [facility] 09-26-2024 14:59-0400 Diastolic blood pressure 95 mm[Hg] Joelle Sarmiento MD Work Phone: [facility] 09-26-2024 14:59-0400 Heart rate 96 /min Joelle Sarmiento MD Work Phone: [facility] 09-26-2024 14:59-0400 Respiratory rate 16 /min Joelle Sarmiento MD Work Phone: [facility] 09-26-2024 14:59-0400 SaO2% (BldA) [Mass fraction] 98 % Joelle Sarmiento MD Work Phone: [facility] 09-26-2024 14:59-0400 Systolic blood pressure 155 mm[Hg] Joelle Sarmiento MD Work Phone: [facility] 08-17-2022 16:00-0400 Body height 160.02 cm Gina Blades Other [facility] Other 08-17-2022 16:00-0400 Body mass index (BMI) [Ratio] 40.56 kg/m2 Gina Blades Other [facility] Other 08-17-2022 16:00-0400 Body weight 103.87 kg Gina Blades Other [facility] Other 08-17-2022 16:00-0400 Diastolic blood pressure 82 mm[Hg] Gina Blades Other [facility] Other 08-17-2022 16:00-0400 Systolic blood pressure 126 mm[Hg] Gina Blades Other [facility] Other Encounters Encounter Date Encounter Type Care Provider Facility Start: 02-05-2025 End: 02-05-2025 ambulatory Aaron Mosqueda MD Facility:[facility] Start: 12-19-2024 End: 12-19-2024 Office outpatient new 45 minutes Renu Brandon MD Work Phone: [facility] Comment on above: Phantosmia (Primary Dx); Chronic maxillary sinusitis; History of MRSA infection Start: 12-19-2024 End: 12-19-2024 ambulatory RENU BRANDON Not Available Start: 12-19-2024 End: 12-19-2024 Bamboo flowsleon Brandon MD Work Phone: [facility] Start: 12-19-2024 End: 12-19-2024 Annamaria Brandon MD Work Phone: [facility] Start: 09-26-2024 End: 09-26-2024 Patient encounter procedure Joelle Sarmiento MD Work Phone: [facility] Comment on above: Spinal stenosis of c ervical region (Primary Dx); Lumbar radiculopathy; Adhesive arachnoiditis (HCC) Start: 09-26-2024 ambulatory JOELLE SARMIENTO Facil ity:[facility] Start: 08-28-2024 End: 08-28-2024 ambulatory Aaron Mosqueda MD Facility:[facility] Start: 06-22-2024 End: 06-23-2024 Telephone encounter Joelle Sarmiento MD Work Phone: Neurology Comment on above: Orders Start: 06-16-2024 End: 06-16-2024 ambulatory Joelle Sarmiento MD Work Phone: [facility] [place] Comment on above: Lumbar radiculopathy (Primary Dx) Start: 06-16-2024 End: 06-16-2024 Telemedicine consultation with patient Joelle Sarmiento MD Work Phone: [facility] [place] Start: 06-09-2024 ambulatory ABY MARK Fac ility:[facility] Start: 04-24-2024 End: 04-24-2024 ambulatory Aaron Mosqueda MD Facility:[facility] Start: 03-27-2024 End: 03-27-2024 ambulatory Aaron [facility]queda MD [facility] Start: 03-06-2024 End: 03-10-2024 Chart abstracting Joelle Sarmiento MD Work Phone: Neurology Start: 10-27-2022 ambulatory NARENDRANATH LAKSHMIPATHY . Facility:[facility] Start: 10-13-2022 End: 10-13-2022 ambulatory NARENDRANATH LAKSHMIPATHY . Facility:[facility] Start: 10-06-2022 End: 10-07-2022 ambulatory NARENDRANATH LAKSHMIPATHY . Facility:[facility] Start: 09-08-2022 End: 09-08-2022 ambulatory iGna Guerrero Other [facility] Other Start: 09-08-2022 Telephone encounter Gina Guerrero F [facility] Start: 09-01-2022 End: 09-02-2022 ambulatory NARENDRANATH LAKSHMIPATHY . Facility:[facility] Start: 08-17-2022 End: 08-17-2022 Patient encounter procedure DO Roberto Roth Work Phone: [facility] Work Phone: Start: 08-17-2022 End: 08-17-2022 ambulatory DO Roberto Roth Work Phone: [facility] Work Phone: Start: 08-17-2022 Office outpatient ne w 45 minutes Gina Guerrero [facility] Start: 07-16-2022 End: 07-17-2022 ambulatory DO Roberto Roth Work Phone: [facility] Work Phone: Start: 07-16-2022 End: 07-16-2022 Patient encounter procedure DO Roberto Roth Work Phone: [facility] [address] Work Phone: Start: 07-03-2022 End: 07-03-2022 ambulatory DO Roberto Roth Work Phone: [facility] Work Phone: Start: 07-03-2022 End: 07-03-2022 Patient encounter procedure DO Roberto Roth Work Phone: [facility] [place] Work Phone: Start: 06-23-2022 End: 06-23-[address] HOOD RAUSCH . Facility:[facility] Start: 05-29-2022 End: 05-30-[address] HOOD RAUSCH . Facility:[facility] Start: 05-14-2022 End: 05-15-2022 ambulatory ADA SINGH . Facility:[facility] Start: 03-12-2022 End: 03-13-[address] HOOD RAUSCH . Facility:[facility] Start: 02-13-2022 Encounter for preprocedural laboratory examination DR HOOD RAUSCH . [facility] Start: 02-10-2022 End: 02-10-[address] HOOD RAUSCH . Facility:[facility] Start: 02-06-2022 End: 02-07-[address] HOOD RAUSCH . Facility:[facility] Start: 02-06-2022 End: 02-07-2022 Encounter for preprocedural laboratory examination DR HOOD RAUSCH . Facility:[facility] Start: 02-03-2022 End: 02-03-[address] HOOD RAUSCH . Facility:[facility] Start: 01-31-2022 End: 01-31-2022 Patient encounter procedure DO Roberto Roth Work Phone: [facility] COVID Testing Start: 01-16-[address] HOOD RAUSCH . Faci lity:[facility] Start: 01-07-2022 End: 01-08-[address] HOOD RAUSCH . Facility:[facility] Start: 05-20-2020 End: 05-20-2020 Patient encounter procedure Roberto Roth -Pre-Surgical Testing Start: 05-14-2020 End: 05-14-2020 Patient encounter procedure Roberto Roth -Pre-Surgical Testing Start: 04-26-2020 End: 04-26-2020 Patient encounter procedure Roberto Roth -[facility] [place] Procedures Date Procedure Procedure Detail Performing Clinician Start: 07-16-2022 Urine culture DO Roberto reyes Work Phone: Start: 07-03-2022 X-ray of lumbar spin e, six views including bending views DO Roberto Roth Work Phone: Start: 04-26-2020 X-ray of lumbar spin e, four views Roberto Roth Plan of Treatment Date Care Activity Detail Author Start: 01-29-2025 Influ[facility] Start: 01-23-2025 End: 01-23-2025 Patient encounter procedure 01/23/2025 3:20 PM EDT Office Visit [facility] [address] [facility] [address] [place] [id number] Renu Brandon MD [address] [facility] [address] [place] [address] [facility] Start: 12-19-2024 End: 12-19-2025 Aerobic culture Aerobic culture Microbiology Routine Phantosmia Expected: 12/19/2024 (Approximate), Expires: 12/19/2025 [facility] Work Phone: Comment on above: Expected: 12/19/2024 (Approximate), Expires: 12/19/2025 Start: 01-30-2024 Covid-19 Vaccine ( season) Covid-19 Vaccine (2023- season) [facility] Start: 01-30-2024 Influenza vaccination Influenza Vacc ine (#1) [facility] Start: 08-17-2022 Plain X-ray of right hip XR hip RT min 2V(w/wo pelvis)* [facility] Start: 08-17-2022 XR Hip - right [address] [facility] Start: 07-16-2022 Bacteria identified in Urine by Culture [facility] Start: 07-16-2022 Hemolytic complement CH50 level [facility] Start: 07-16-[address] [facility] Start: 2018 Shingrix Vaccine (1 of 2) Shingrix Vaccine (1 of 2) [facility] Start: 2013 Diabetes Screening Diabetes Screenin g [facility] Start: 2013 Lipid panel Lipid Screening [facility] [place] [facility] Start: 2013 Screening for malign ant neoplasm of colon [facility] Start: 2008 Screening for malign ant neoplasm of breast [facility] Start: 1998 Screening for malign ant neoplasm of cervix [facility] Start: 1989 Screening for malign ant neoplasm of cervix [facility] Start: 10-03-1987 Hepatitis B Vaccine (1 of 3 - 19+ 3-dose series) Hepatitis B Vaccine (1 of 3 - 19+ 3-dose series) [facility] Start: 10-03-1987 Pneumococcal Vaccine : 50+ (1 of 2 - PCV) Pneumococcal Vaccine: 50+ (1 of 2 - PCV) [facility] Start: 10-03-1987 Urine microalbumin profile DTaP,Tdap,Td Vaccine (1 - Tdap) [facility] Start: 1986 Anxiety Screening Anxiety Screening [facility] Start: 1986 Depression Screening Depression Scre ening [facility] Start: 1986 Hepatitis C screening Hepatitis C Sc reening [facility] Start: 1986 HIV screening HIV Screening [facility] Start: 1968 Screening for malign ant neoplasm of colon [facility] Complement C3 [Mass/volume] in Serum or Plasma [facility] Complement C4 [Mass/volume] in Serum or Plasma [facility] End: 07-23-2025 CT Lumbar spine WO contrast CT LUMBAR SPINE WO IVCON Radiology Routine Radiculopathy of lumbar region Spinal stenosis of lumbar region without neurogenic claudication 1 Occurrences starting 06/23/2024 until 07/23/2025 [facility] Work Phone: Comment on above: 1 Occurrences starti ng 06/23/2024 until 07/23/2025 End: 06-23-2025 EMG(NEURO/NI) EMG(NEURO/NI) EMG Routine Radiculopathy of lumbar region Spinal stenosis of lumbar region without neurogenic claudication Right foot drop 1 Occurrences starting 06/23/2024 until 06/23/2025 [facility] Comment on above: 1 Occurrences starti ng 06/23/2024 until 06/23/2025 Homogenous nuclear A b pattern [Titer] in Serum [facility] End: 10-26-2025 MR Cervical spine WO contrast MRI CERVICAL SPINE WO IVCON Radiology Routine Spinal stenosis of cervical region 1 Occurrences starting 09/26/2024 until 10/26/2025 [facility] Work Phone: Comment on above: 1 Occurrences starti ng 09/26/2024 until 10/26/2025 Nuclear Ab [Titer] i n Serum [facility] End: 07-23-2025 XR Lumbar spine Views W flexion and W extension XR LUMBAR MOTION 4V AP/LAT/ FLEX/EXT Radiology Routine Radiculopathy of lumbar region Spinal stenosis of lumbar region without neurogenic claudication 1 Occurrences starting 06/23/2024 until 07/23/2025 [facility] Comment on above: 1 Occurrences starti ng 06/23/2024 until 07/23/2025 Immunizations Immunization Date Immunization Notes Care Provider Jah dasilva 11-09-2020 COVID-19 mRNA-1273 (Moderna) DO Roberto Roth Work Phone: [facility] 10-12-2020 COVID-19 mRNA-1273 (Moderna) DO Roberto Roth Work Phone: [facility] 05-23-2020 influenza, injectabl e, quadrivalent, preservative free DO Roberto Roth Work Phone: [facility] 05-23-2020 influenza virus vaccine, unspecified formulation Joelle Sarmiento MD Work Phone: [facility] Payers Date Payer Category Payer [employer] Blue [employer] [id number] 2023 Unknown [id number] 2023 Unknown [id number] 2022 Self-pay [id number] 1968 Unknown [id number] 2.16.84 0.1.333579.3.579.2.593 1968 Unknown [id number] 2.16.84 0.1.911021.3.579.2.593 1968 Unknown [id number] 2.16.84 0.1.401182.3.579.2.593 1968 Unknown [id number] 2.16.84 0.1.122928.3.579.2.593 1968 Unknown [id number] 2.16.84 0.1.758871.3.579.2.593 1968 Unknown [id number] 2.16.84 0.1.914887.3.579.2.593 1968 Unknown [id number] 2.16.84 0.1.801175.3.579.2.593 1968 Unknown [id number] 2.16.84 0.1.556552.3.579.2.593 1968 Unknown [id number] 2.16.84 0.1.252316.3.579.2.593 1968 Unknown [id number] 2.16.84 0.1.833052.3.579.2.593 1968 Unknown [id number] 2.16.84 0.1.509164.3.579.2.593 1968 Unknown [id number] 2.16.84 0.1.901111.3.579.2.593 1968 Unknown [id number] 2.16.84 0.1.596685.3.579.2.593 1968 Unknown [id number] 2.16.84 0.1.519276.3.579.2.593 1968 Unknown [id number] 2.16.84 0.1.949214.3.579.2.593 1968 Unknown [id number] 2.16.8 40.1.916596.3.579.2.1259 1968 Unknown [id number] 2.16. 840.1.736897.3.579.2.196 1968 Unknown [id number] 2.16. 840.1.831479.3.579.2.196 1968 Unknown [id number] 2.16. 840.1.510533.3.579.2.196 1968 Unknown [id number] 2.16. 840.1.787786.3.579.2.196 1959 Unknown [id number] Unknown [id number] Unknown [id number] 2.16.8 40.1.202567.3.579.2.531 Social History Date Type Detail Facility Start: 05-14-2020 End: 06-23-2021 Tobacco smoking status OKIS Smoker (finding) [facility] Start: 1970 Sex Assigned At Female [facility] Start: 06-09-2024 End: 12-19-2024 History of tobacco use [facility] Tobacco smoking stat us OKIS Tobacco smoking consumption unknown [facility] Start: 1970 Sex assigned at Not on file C [facility] Start: 06-09-2024 End: 12-19-2024 Tobacco smoking status OKIS Smokes tobacco daily [facility] History of tobacco use [facility] Start: 06-09-2024 End: 12-19-2024 Tobacco use and exposure Smokeless tobacco non-user [facility] Start: 06-09-2024 End: 12-19-2024 Alcoholic beverage intake Ex-drinker (finding) [facility] Start: 06-09-2024 End: 12-19-2024 History of Social function [facility] Adult Depression Screening Assessment 3 [facility] Medical Equipment Procedure Code Equipment Code Equipment Origin al Text Equipment Identifier Dates Fusion, spine, lumbar, XLIF CANCELLOUS COARSE 7.5CC FDA Start: 05-22-2020 Fusion, spine, lumbar, XLIF Bone-screw internal spinal fixation system, non-sterile ()[id number] FDA Start: 05-22-2020 Fusion, spine, lumbar, XLIF Bone-screw internal spinal fixation system, non-sterile ()[id number] FDA Start: 05-22-2020 Fusion, spine, lumbar, XLIF Bone-screw internal spinal fixation system, non-sterile ()[id number] FDA Start: 05-22-2020 Fusion, spine, lumbar, XLIF CANCELLOUS COARSE 7.5CC FDA Start: 05-22-2020 Fusion, spine, lumbar, XLIF Bone-screw internal spinal fixation system, non-sterile ()[id number] FDA Start: 05-22-2020 Fusion, spine, lumbar, XLIF Bone-screw internal spinal fixation system, non-sterile ()[id number] FDA Start: 05-22-2020 Fusion, spine, lumbar, XLIF Polymeric spinal fusion cage, non-sterile ()[id number] FDA Start: 05-22-2020 Fusion, spine, lumbar, XLIF Dura mater graft, bovine [id number] FDA Start: 05-22-2020 Fusion, spine, lumbar, XLIF MAS REDUCTION FIXATION ADD LEV FDA Start: 05-22-2020 Fusion, spine, lumbar, XLIF XLIF 1 LEVEL MAS REDUCTION FDA Start: 05-22-2020 Fusion, spine, lumbar, XLIF Spinal fusion graft kit [id number] FDA Start: 05-22-2020 Fusion, spine, lumbar, XLIF Bone matrix implant, human-derived ()[id number] FDA Start: 05-22-2020 Fusion, spine, lumbar, XLIF Metallic spinal fusion cage, non-sterile ()[id number] FDA Start: 05-22-2020 Fusion, spine, lumbar, XLIF Bone-screw internal spinal fixation system, non-sterile ()[id number] FDA Start: 05-22-2020 Fusion, spine, lumbar, XLIF [...] plan surgical tx. documented in this encounter [facility] 09-26-2024 History of Presen t illness Narrative [...] gabapentin, meloxicam, voltaren cream, heat, mdp x1 [place] - 3x/dy REVIEW OF SYSTEMS: GENERAL: No [...] 10 mg by mouth daily at bedtime. hcklivpaens-goymtqdny-bccmttuc (TRELEGY ELLIPTA) 100-62.5-25 mcg inhalation powder Inhale [...] with more than 50% of the total gumd-tg-qrpa time of the visit in counseling / coordination of care. SIGNATURE: Joelle Sarmiento MD PATIENT NAME: Kim Hill DATE: September 25, 2024 TIME: 3:07 PM PAGER: By signing my name below, I, Ernestian Albert, attest that this documentation has been prepared under the direction and in the presence of Dr. Sarmiento Electronically signed, Monae Chew September 25, 2024 3:08 PM documented in this encounter [facility] 06-23-2024 Telephone encounter Note Neuro SPINE CARE COORDINATION QUICK NOTE Called patient, no answer. Left non-detailed VM on non-identified VM box instructing patient to call office or check MYC messages for details. Ness Corbett RN June 23, 2024 11:12 AM [facility] 06-23-2024 Miscellaneous Notes Neuro SPINE CARE [...] Pt can schedule. documented in this encounter [facility] 06-22-2024 Telephone encounter Note Pt called asking for orders informed by on OV 06/16/24. Discussed with patient will order CT and EMG as well as standing xray Pls send MyC msg once orders are ready so that Pt can schedule. [facility] 06-16-2024 Note HNO ID: [id number] Author: JOELLE SARMIENTO MD Service: ? Author Type: Physician Type: Progress Notes Filed: 06/16/2024 17:55 Note Text: Rescheduled, no charge [facility] 06-16-2024 Note HNO ID: [id number] Author: JOELLE SARMIENTO MD Service: ? Author Type: Physician Type: Progress Notes Filed: 06/16/2024 09:36 Note Text: I have communicated my name and active licensure. The patient's identity and physical location were verified at the time of this visit. Either the patient or their legal ambulatory service representative has been informed of the risks [...] with more than 50% of the total urlg-vf-mzcy time of the visit in counseling / coordination of care. [facility] 06-16-2024 History of Presen t illness Narrative I have communicated my name and active licensure. The patient's identity and physical location were verified at the time of this visit. Either the patient or their legal ambulatory service representative has been informed of the risks [...] with more than 50% of the total kowy-qo-lqlc time of the visit in counseling / coordination of care. documented in this encounter [facility] 03-10-2024 Note HNO ID: [id number] Author: KENAN GODOY APRN.PROGRAM SERVICES ASSISTANT Service: ? Author Type: Nurse Practitioner Type: [...] gabapentin, meloxicam, voltaren cream, heat, mdp x1 [place] - 3x/dy Studies (Reports unless indicated) Mri lumbar report Lumbarization S1 S/p :L4-S1 fusion L5/S1 mod b/l FS S1/2 paraspinal muscle mod to severe atrophy Disposition: Please schedule with dr sarmiento if patient would like soon can schedule with myself. Please instruct patient to bring copy of imaging and injection history for review. [facility] 03-10-2024 History of Presen t illness Narrative [...] gabapentin, meloxicam, voltaren cream, heat, mdp x1 [place] - 3x/dy Studies (Reports unless indicated) Mri [...] Health Provider or Pain Management Provider at [facility]? No If answer is YES [...] the facility where the MRI/CT/myelogram was completed: [place] [address] MRI/CT/myelogram viewable in Epic: No If not, please provide [phone] to fax in imaging reports for review. Also, please inform patient to hand carry imaging disc to appointment. XR (spine) within 12 months: Yes If YES, please ask for the name/address of the facility where the XR was completed: [place] [address] Dr. Freeman's patients: Have you had previous [...] therapy was completed [facility] - Pain mgmt [place] - [address] [id number] Have you tried any other kinds of non-surgical treatments in the last 12 months? (For example: NSAIDS, muscle relaxants, analgesics, oral steroids, Chiropractor, Acupuncture): gabapentin, meloxicam, voltaren cream, heat, mdp x1 4. Are you currently taking daily prescribed narcotic medications for your current symptoms (For example Oxycodone, Hydrocodone, Tramadol, Morphine, Other)? Yes [place] - 3x/dy 5. Have you had previous spinal surgery for this same symptoms? Yes If YES please ask for the name of facility/address of where the surgery was completed: [facility] cages Additional Comments [phone] documented in this encounter [facility] 03-06-2024 Note HNO ID: [id number] Author: ?, ?, ? Service: ? Author Type: ? Type: Progress Notes Filed: 03/10/2024 16:07 Note Text: Patient name: Kim Hill Are you being referred by a [facility] Spine Health Provider or Pain Management Provider at [facility]? No If answer is YES [...] the facility where the MRI/CT/myelogram was completed: [facility] [address] [id number] MRI/CT/myelogram viewable in Epic: No If not, please provide [phone] to fax in imaging reports for review. Also, please inform patient to hand carry imaging disc to appointment. XR (spine) within 12 months: Yes If YES,? please ask for the name/address of the facility where the XR was completed: [place] [address] Dr. Freeman's patients: Have you had previous [...] therapy was completed [facility] [place] [address] Have you tried any other kinds of non-surgical treatments in the last 12 months? (For example: NSAIDS, muscle relaxants, analgesics, oral steroids, Chiropractor, Acupuncture): gabapentin, meloxicam, voltaren cream, heat, mdp x1 4. Are you currently taking daily prescribed narcotic medications for your current symptoms (For example Oxycodone, Hydrocodone, Tramadol, Morphine, Other)? Yes [place] - 3x/dy 5. Have you had previous spinal surgery for this same symptoms? Yes If YES? please ask for the name of facility/address of where the surgery was completed: [facility] [place] [facility] - 2 cages Additional Comments [phone] [facility] 10-06-2022 Note CONSULTATION CONSULTATION DATE: 10/06/2022 TO: [...] pill b.i.d. and to continue to use [place] 7.5 mg t.i.d. We did reduce the use at her last visit from 90 pills a month to 80 pills to last one month's time. She appears to be tolerating this transition quite well. I have asked her to continue with gabapentin 600 mg t.i.d. Her JOYCE on today's visit is 28. She reports the [place] does improve her quality of life, level of functioning and sleep pattern, and she denies any side effects. As part of providing excellent, safe, comprehensive care, the following was completed at our patient's visit: 1. A medication reconciliation and review to ensure accurate knowledge of current/active medications, including asking our patients to inform us about any egjd-wqn-tosvzhl medications or herbal remedies/nutritional supplements/alternative remedies. 2. [...] options with their primary care provider. [facility] 09-01-2022 Note CONSULTATION CONSULTATION DATE: 09/01/2022 [...] our patients to inform us about any dfld-btn-dpbrzkh medications or herbal remedies/nutritional supplements/alternative remedies. 2. [...] options with their primary care provider. [facility] 08-17-2022 Evaluation note Encounter Date Diagnosis Assessment Notes Jul, Other chronic pain (ICD-10 - G89.29) Jul, Low back pain, unspecified (ICD-10 - M54.50) [facility] Other 02-16-2023 NoteCONSULTATION CONSULTATION DATE: 07/16/2022 HISTORY OF PRESENT ILLNESS: This is a 51-year-old female who returns to the clinic status post bilateral SI joint injection completed on 06/23/2022. The patient received 80% relief for one day and on day two felt worse than her normal baseline pain. Today, she rates her pain 8/10. Medications include gabapentin 600 mg t.i.d., [place] 7.5/325 b.i.d. and Mobic 15 mg daily. [...] her medications; Mobic 15 mg daily and [place] 7.5/325 b.i.d. She will return to the clinic in six weeks' time, in which we will, in addition to her PCPs office, review the MRI and form a plan of care at that time. Patient is in agreement to this plan.[id number] Note CONSULTATION CONSULTATION DATE: 05/29/2022 HISTORY OF [...] down. Medications include gabapentin 600 mg t.i.d., [place] 7.5/325 b.i.d. and diclofenac 50 mg daily. [...] care and will be followed up thereafter.[id number] NoteCONSULTATION CONSULTATION DATE: 05/14/2022 HISTORY OF PRESENT [...] as well as gabapentin 600 mg t.i.d., [place] 7.5/325 t.i.d. At her last appointment, she [...] Refills for gabapentin 600 mg t.i.d. and [place] 7.5/325 b.i.d. will be sent to her pharmacy. Patient agrees to move forward with the procedure. She will followed up in the clinic thereafter.[id number] NotePAIN MANAGEMENT CONSULTATION CONSULTATION DATE: 05/14/2022 CHIEF [...] with a sacroiliac joint injection under fluoroscopy.[facility] [id number] NoteCONSULTATION CONSULTATION DATE: 03/12/2022 ADDENDUM DIAGNOSIS: Lumbar spondylosis, lumbar degenerative disc disease, chronic lower back pain and a history of a lumbar fusion.[facility] [id number] Note CONSULTATION CONSULTATION DATE: 03/12/2022 This is [...] Current medications include gabapentin 600 mg t.i.d., [place] 7.5/325 b.i.d., diclofenac cream and ibuprofen. She [...] with her vitamins as well as her [place]. The dose of frequency will not be changed. We will have the patient return to the clinic in two months' time for re-evaluation. The patient is inquiring about an increase of her [place], possibly during the winter months. There will be no changes today.[facility] [id number] NoteCONSULTATION CONSULTATION DATE: 01/07/2022 This is a [...] Current medications include gabapentin 600 mg b.i.d., [place] 7.5/325 b.i.d., diclofenac topical, multivitamin regimen and ibuprofen p.r.n. She has tried diclofenac in the past but was unable to tolerate it due to stomach issues but low-dose ibuprofen she can tolerate. She is needing [place] and gabapentin refill today. REVIEW OF SYSTEMS, [...] subsequently move to the left. Refill for [place] 7.5/325 b.i.d. and gabapentin 600 mg b.i.d. will be sent to the pharmacy. The patient is encouraged to increase magnesium in her vitamin regimen as well as menthol heat rub, seated stretches that were demonstrated and heat application. The patient agrees with the plan of care and would like to move forward and she will follow-up in the clinic post procedure.[facility] noteNo assessment information availableClinton [facility] Hospital Work Phone: Evaluation noteNo InformationNort KO-SU Other evaluation note* Diagnosis Lumbar radiculopathy- Primary Thoracic or lumbosacral neuritis or radiculitis, unspecified [facility]* Diagnosis Radiculopathy of lumbar region- Primary Thoracic or lumbosacral neuritis or radiculitis, unspecified Spinal stenosis of lumbar region without neurogenic claudication Spinal stenosis, lumbar region, without neurogenic claudication Right foot drop Other acquired deformity of ankle and foot documented in this encounter [facility] note* Diagnosis Spinal stenosis of cervical region- Primary Spinal stenosis in cervical region Lumbar radiculopathy Thoracic or lumbosacral neuritis or radiculitis, unspecified Adhesive arachnoiditis (HCC) Meningitis, unspecified [facility]* Diagnosis Phantosmia- Primary Chronic maxillary sinusitis History of MRSA infection documented in this encounter [facility] HealthcareHistory general Narrative - Reported* Type Description Date Medical History osteoarthritis Medical History rheumatoid arthritis Medical History carpal tunnel Medical History fibromyalgia Medical History hypertension Medical History Arthritis Medical History asthma Medical History obesity Medical History pneumonia Medical History anxiety Surgical History hysterectomy 01/2012 Surgical History back surgery Surgical History left middle finger surgery Hospitalization History see above Hospitalization History 4 child births [facility] Other reason for referral (narrative)* Diagnostic Procedure Only (Routine) - New Request Specialty Diagnoses / Procedures Referred By Contac t Referred To Contact XR IMAGING Diagnoses Radiculopathy of lumbar region Spinal stenosis of lumbar region without neurogenic claudication Procedures XR LUMBAR MOTION 4V AP/LAT/ FLEX/EXT RADEX SPINE LUMBOSACRAL MINIMUM 4 VIEWS Kenan Godoy APRN.PROGRAM SERVICES ASSISTANT [address] [place] [address] Xr Imaging [place] [address] Referral ID Status Reason Start Date Expiration Date Visits Requested Visits Authorized [id number] New Request Auto-Generat ed Referral 06/23/2024 07/23/2025 1 1 * Outpatient Procedure (Routine) - New Request Specialty Diagnoses / Procedures Referred By Claritza t Referred To Contact [facility] Diagnoses Radiculopathy of lumbar region Spinal stenosis of lumbar region without neurogenic claudication Right foot drop Procedures [facility](NEURO/NI) NERVE CONDUCTION STUDIES 9-10 STUDIES Kenan Godoy APRN.PROGRAM SERVICES ASSISTANT [address] [place] [address] [facility] [place] [address] [place] [address] Referral ID Status Reason Start Date Expiration Date Visits Requested Visits Authorized [id number] New Request Auto-Generat ed Referral 06/23/2024 06/23/2025 1 1 * MRI/CT (Routine) - New Request Specialty Diagnoses / Procedures Referred By Claritza t Referred To Contact CT IMAGING Diagnoses Radiculopathy of lumbar region Spinal stenosis of lumbar region without neurogenic claudication Procedures CT LUMBAR SPINE WO IVCON CT LUMBAR SPINE W/O CONTRAST MATERIAL Kenan Godoy APRN.PROGRAM SERVICES ASSISTANT [address] [place] [address] Ct Imaging [place] [address] Referral ID Status Reason Start Date Expiration Date Visits Requested Visits Authorized [id number] New Request Auto-Generat ed Referral 06/23/2024 07/23/2025 1 1 [facility] Advance Directives No Advanced Directives Records Found [...] Active Gina Guerrero MD Attending Provider Active Primary Montessori Teacher Relationship Specialty Start Date End Date Aby Mark CNP [address] [place] [id number] Referring Family Medicine 03/02/24 Primary Montessori Teacher Relationship Specialty Start Date End Date Aby Mark CNP [address] [place] [address] Referring Family Medicine 03/02/24 Primary Montessori Teacher Relationship Specialty Start Date End Date Aby Mark CNP [address] [place] [id number] Referring Family Medicine 03/02/24 Primary Montessori Teacher Relationship Specialty Start Date End Date Aby Mark CNP [address] [place] [address] Referring Family Medicine 03/02/24 Primary Montessori Teacher Relationship Specialty [place] [address] [place] [address] PCP - General Cardiology 12/05/24 Primary Montessori Teacher Relationship Specialty [place] [address] [place] [address] PCP - General Cardiology 12/05/24 Goals (unrecognized section and content) Goals may be documented in a n alternate sectionGoals may be documented in an alternate sectionGoals may be documented in an alternate sectionGoals may be documented in an alternate sectionNo InformationNo Information INFORMATION SOURCE (unrecogn ized section and content) DATE CREATED AUTHOR 08/01/2022 [facility] dical Specialist DATE CREATED AUTHOR AUTHOR'S ORGANIZ ATION 11/06/2022 [facility] DATE CREATED AUTHOR AUTHOR'S ORGANIZ ATION 11/24/2023 [facility] DATE CREATED AUTHOR AUTHOR'S ORGANIZ ATION 09/28/2024 [facility] DATE CREATED AUTHOR AUTHOR'S ORGANIZ ATION 12/21/2024 [facility] dical Specialists EPIC DATE CREATED AUTHOR AUTHOR'S ORGANIZ ATION 02/11/2025 [facility] REASON FOR VISIT (unrecogniz ed section [...] or prosecute any alcohol or drug abuse patient.[facility] Hospital[facility] the event this information is protected by the Federal Confidentiality of Alcohol and Drug Abuse Patient Records regulations: The Federal rules restrict any use of the information to criminally investigate or prosecute any alcohol or drug abuse patient.[facility] Hospital[facility] the event this information is protected by the Federal Confidentiality of Alcohol and Drug Abuse Patient Records regulations: The Federal rules restrict any use of the information to criminally investigate or prosecute any alcohol or drug abuse patient.[facility] Hospital[facility] the event this information is protected by the Federal Confidentiality of Alcohol and Drug Abuse Patient Records regulations: The Federal rules restrict any use of the information to criminally investigate or prosecute any alcohol or drug abuse patient.[facility] FOR RECORDS PERTAINING TO PATIENTS WHO [...] BE BASED ON THE PRIMARY CLINICAL RECORDS. [facility]. provides no warranty or guarantee of the accuracy or completeness of information in this document.
--- NOTE | 2025-02-15 15:23 | CT_ITS ---
The [address] [address] Patient Name: AKASH LIU MRN: [id number] date: 1970 Sex: F Assigned Patient Location: CT Current Patient Location: Accession/Order Number: [id number] Exam Date: 02/15/2025 15:20 Report Date: 02/16/2025 08:13 At the request of: JACKY BRANDON MD Procedure: CT sinus wo con CT PARANASAL SINUSES WITHOUT CONTRAST: CLINICAL HISTORY: Chronic Sinusitis follow-up after antibiotics COMPARISON 09/29/2024 TECHNIQUE: Contiguous axial unenhanced images were obtained through the paranasal sinuses. Coronal reconstructions were also performed. This CT exam was performed using one or more following dose reduction techniques: Automated exposure control, adjustment of the mA and/or kV according to patient size, or use of iterative reconstruction technique. FINDINGS: There is appropriate development and pneumatization. There is still mucosal thickening and fluid within the right maxillary sinus, extending through the ostiomeatal complex and partially effacing the middle turbinate. There is only minimally interval improvement. The remaining paranasal sinuses show no mucosal thickening or fluid levels. The right ostiomeatal complex is obscured. There is no bony destruction. Slight anterior nasal septal deviation is present left CT/CT sinus wo con IMPRESSION: CONTINUED RIGHT MAXILLARY SINUSITIS AND OCCLUSION OF THE OSTIOMEATAL COMPLEX, SLIGHTLY IMPROVED. Impression dictated by: Shalonda Mckee M.D. 02/16/2025 8:13 AM Dictation Location: [place] [address] Electronically authenticated by: [id number] Y Date: 02/16/2025 08:13
== END 2025-02-15 15:03 | disposition home or self-care (01) ==
LOC: CT 15:02
PROVIDERS: PCP Nurse Practitioner Family; Visit Provider Otolaryngology
DX: J32.0 Chronic maxillary sinusitis (principal)
CPT/HCPCS: 70486

== ENCOUNTER 2025-02-21 15:10 | Outpatient (OUT) | payer BC, SELFPAY ==
--- OUTSIDE RECORDS SUMMARY | 2025-02-21 15:14 | XMS_ITS | CCD ---
Author Organization [facility] Care Team Providers Care Project Management Professor Name Role Phone Roberto Roth Primary Care Provider Justice Cruz Attending Provider DO Roberto Roth Primary Care Provider MD Hood Rausch Attending Provider DO Roberto Roth Primary Care Provider [phone] CALVIN Mark Attending Provider [phone] MD Paresh Tian Attending Provider RothDO Roberto oliva Primary Care Provider CALVIN Mark Attending Provider MD Paresh Tian Attending Provider [phone] MD Gina Guerrero Attending Provider Gina Guerrero [...] ROTH, DR ROBERTO Bhakta Primary Care Unavailable LOS BRAXTON Consulting Unava ilable SINGH ., ADA Attending Unavailable SINGH ., ADA Admitting Unavailable ROTH, DR ROBERTO Bhakta Primary Care Unavailable WALLKILL, DR DASHA Gomez Consulting Unavailable SINGH ., ADA Consulting Unavailable RAUSCH ., DR HOOD Hernandez Attending Unavailable RAUSCH ., DR HOOD Hernandez Admitting Unavailable RAUSCH ., DR HOOD Hernandez Consulting Unavailable IRA, DR ROBERTO Bhakta Primary Care Unavailable RAUSCH ., DR HOOD Hernandez Attending Unavailable RAUSCH ., DR HOOD Hernandez Admitting Unavailable ROTH, DR ROBERTO Bhakta Primary Care Unavailable RAUSCH ., DR OHOD Hernandez Attending Unavailable RAUSCH ., DR HOOD [...] Guerrero Attending Unavailable Gina Guerrero Admitting Unavailable Aimee ORTIZ, Aby Unavailable [phone] LOS SARMIENTO Attending Unavailable ABY MARK Referring Unavailable LOS SARMIENTO Attending Unavailable ABY MARK Referring Unavailable LOS SARMIENTO Attending Unavailable [facility] Provider JACKY BRANDON Attending Unavailable Giedraitis , Andrius Musa Attending Unavailable Giedraitis , Andrius Dimple Attending Unavailable Giedraitis , Andrius Vytautas Attending Unavailable Giedraitis MD, Andrius Vytautas Attending Unavailable Unavailable Unavailable Unavailable Allergies Allergy Classification Reported Allergen(s) Allergy Type Date of Onset Reaction(s) Facility (6 sources) Amoxicillin; Translations: [amoxicillin] Drug Allergy 05-14-20 [facility] (11 sources) Penicillins; Translations: [Penicillins] Propensity to adverse reactions 07-24-19 14 Rash, Diarrhea [facility] (6 sources) clavulanic acid; Translations: [clavulanic acid] Propensity to adverse reactions 05-14-20 [address] [facility] (3 sources) Amoxicillin / Clavulanate; Translations: [Augmentin] Drug Allergy 07-24-19 14 Unknown [facility] (2 sources) Azithromycin Drug Allergy diarrhea [facility] Other (5 sources) Penicillin G Drug Allergy 12-20-19 25 Rash [facility] Other (3 sources) Amoxicillin-Pot Clavulanate Drug Allergy 12-17-19 24 Diarrhea [facility] Medications Current Medications Medication Drug Class(es) Dates Sig (Normalized) Sig (Original) acetaminophen 500 mg oral tablet (4 sources) Start: 05-31-2020 take 500 mg by mouth every four hours Acetaminophen Active 500 MG PO Q4H 100 May 31, 2020 1:00am acetaminophen 325 mg / HYDROcodone bitartrate 7.5 mg oral tablet (13 sources) Opioid Agonist Start: 12-08-2024 take 1 tablet by mouth three times daily as needed for pain HYDROcodone-acetami nophen ([place]) 7.5-325 MG tablet TAKE ONE TABLET BY MOUTH THREE TIMES A DAY NEEDED FOR PAIN. MUST LAST 30 DAYS 12/08/2024 Active Start: 03-18-2019 End: 05-23-2020 take 1 tablet by mouth three times daily Hydrocodone-Acetaminophen ([place]) 5-325 mg Tablet Discontinued 1 TAB PO Three times daily March 18, 2019 12:00am May 23, 2020 4:59pm take 7.5 mg by mouth three times daily hydrocodone/acetaminophen (NORCO ORAL) T francie 7.5 mg by mouth three times a day. Active [place] Active [id number] 200 actuat albuterol 0.09 mg/actuat metered dose inhaler (18 sources) beta2-Adrenergic Agonist Start: 11-25-2024 take 2 [...] / ipratropium bromide 0.167 mg/ml inhalation solution (7 sources) Anticholinergic, beta2-Adrenergic Agonist Start: 05-04-2024 ipratropium-albuterol [...] 30 Active baclofen 10 mg oral tablet (6 sources) gamma-Aminobuty gabriela Acid-ergic Agonist take 1 [...] Active cetirizine hydrochloride 10 mg oral tablet (3 sources) Histamine-1 Receptor Antagonist Start: End: take 1 tablet by mouth once daily as needed cetirizine (ZyrTEC) 10 MG tablet Indications: Chronic maxillary sinusitis Take 1 tablet (10 mg) by mouth Daily as needed for allergies 90 tablet 3 12/19/2024 12/19/2025 Active fluticasone propionate 0.05 mg/actuat metered dose nasal spray (3 sources) Corticosteroid Start: fluticasone (Flonase) 50 MCG/ACT [...] daily. Active gabapentin 300 mg oral capsule (17 sources) Anti-epileptic Agent Start: take 600 mg by mouth three times daily Gabapentin Active 600 MG PO Three times daily 0 May 31, 2020 1:00am Start: 03-18-2019 End: 06-01-2020 take 600 mg by mouth three times daily Gabapentin Discontinued 600 MG PO Three times daily March 18, 2019 12:00am June 01, 2020 10:48am lisinopril 10 mg oral tablet (17 sources) Angiotensin Converting Enzyme Inhibitor Start: 05-14-2020 End: 06-01-2020 take 10 mg by mouth once daily Lisinopril Active 10 MG PO Daily May 31, 2020 1:00am meloxicam 15 mg oral tablet (8 sources) Nonsteroidal Anti-inflammatory Drug take 1 tablet by mouth once daily meloxicam (Mobic) 15 MG tablet Take 15 mg by mouth Daily Active montelukast 10 mg oral tablet (6 sources) Leukotriene Receptor Antagonist take 1 tablet [...] pantoprazole 40 mg delayed release oral tablet (8 sources) Proton Pump Inhibitor take 1 tablet [...] milk Trelegy Ellipta 200-62.5-25 MCG/ACT aerosol powder (3 sources) Start: 10-04-2024 take 1 puff(s) by inhalation once daily Trelegy Ellipta 200-62.5-25 MCG/ACT aerosol powder INHALE 1 PUFF BY INHALATION ROUTE ONCE DAILY AT THE SAME TIME EACH DAY 10/04/2024 Active vitamin b12 0.5 mg sublingual tablet (3 sources) Vitamin B12 Cyanocobalamin ( B-12) [address] under the tongue Active Zinc Sulfate (3 sources) Zinc Sulfate (ZI NC 15 PO) [...] Date Episodic/Chronic Acquired foot deformities (4 sources) Acquired left hallux valgus; Translations: [Hallux [...] Test Name Value Interpretation Reference Range Facility CT SINUS WO CONon 02-16-2025 [place] [address] CT Scan Report Signed Patient: KIM HILL MR#: [id number] : 1970 Acct:[id number] Age/Sex: 54 / F ADM Date: 02/15/25 Loc: CT Attending Dr: Jacky Brandon M.D. Ordering Physician: Jacky Brandon M.D. Date of Service: 02/15/25 Procedure(s): CT sinus wo con Accession Number(s): [id number] cc: ABY MARK [place] [address] Patient Name: KIM HILL MRN: [id number] date: 1970 Sex: F Assigned Patient Location: CT Current Patient Location: Accession/Order Number: [id number] Exam Date: 02/15/2025 15:20 Report Date: 02/16/2025 08:13 At the request of: JACKY BRANDON MD Procedure: CT sinus wo con CT PARANASAL SINUSES WITHOUT CONTRAST: CLINICAL HISTORY: Chronic Sinusitis follow-up after antibiotics COMPARISON 09/29/2024 TECHNIQUE: Contiguous axial unenhanced images were obtained through the paranasal sinuses. Coronal reconstructions were also performed. This CT exam was performed using one or more following dose reduction techniques: Automated exposure control, adjustment of the mA and/or kV according to patient size, or use of iterative reconstruction technique. FINDINGS: There is appropriate development and pneumatization. There is still mucosal thickening and fluid within the right maxillary sinus, extending through the ostiomeatal complex and partially effacing the middle turbinate. There is only minimally interval improvement. The remaining paranasal sinuses show no mucosal thickening or fluid levels. The right ostiomeatal complex is obscured. There is no bony destruction. Slight anterior nasal septal deviation is present left CT/CT sinus wo con IMPRESSION: CONTINUED RIGHT MAXILLARY SINUSITIS AND OCCLUSION OF THE OSTIOMEATAL COMPLEX, SLIGHTLY IMPROVED. Impression dictated by: Shalonda Mckee M.D. 02/16/2025 8:13 AM Dictation Location: [place] [address] Electronically authenticated by: [id number] Y Date: 02/16/2025 08:13 Dictated By: Shalonda Mckee M.D. Signed By: 02/16/25815 DD/ 2 TD/TT: Race Board Attendant: [facility] Radiology, Radiologi MD alverto - 02/16/2025 [place] [address] CT Scan Report Signed Patient: KIM HILL MR#: [id number] : 1970 Acct:[id number] Age/Sex: 54 / F ADM Date: 02/15/25 Loc: CT Attending Dr: Jacky Brandon M.D. Ordering Physician: Jacky Brandon M.D. Date of Service: 02/15/25 Procedure(s): CT sinus wo con Accession Number(s): [id number] cc: ABY MARK [place] [address] Patient Name: KIM HILL MRN: [facility]:[id number] date: 1970 Sex: F Assigned Patient Location: CT Current Patient Location: Accession/Order Number: [id number] Exam Date: 02/15/2025 15:20 Report Date: 02/16/2025 08:13 At the request of: JACKY BRANDON MD Procedure: CT sinus wo con CT PARANASAL SINUSES WITHOUT CONTRAST: CLINICAL HISTORY: Chronic Sinusitis follow-up after antibiotics COMPARISON 09/29/2024 TECHNIQUE: Contiguous axial unenhanced images were obtained through the paranasal sinuses. Coronal reconstructions were also performed. This CT exam was performed using one or more following dose reduction techniques: Automated exposure control, adjustment of the mA and/or kV according to patient size, or use of iterative reconstruction technique. FINDINGS: There is appropriate development and pneumatization. There is still mucosal thickening and fluid within the right maxillary sinus, extending through the ostiomeatal complex and partially effacing the middle turbinate. There is only minimally interval improvement. The remaining paranasal sinuses show no mucosal thickening or fluid levels. The right ostiomeatal complex is obscured. There is no bony destruction. Slight anterior nasal septal deviation is present left CT/CT sinus wo con IMPRESSION: CONTINUED RIGHT MAXILLARY SINUSITIS AND OCCLUSION OF THE OSTIOMEATAL COMPLEX, SLIGHTLY IMPROVED. Impression dictated by: Shalonda Mckee M.D. 02/16/2025 8:13 AM Dictation Location: [place] [address] Electronically authenticated by: [id number] Y Date: 02/16/2025 08:13 Dictated By: Shalonda Mckee M.D. Signed By: 02/16/25 0816 DD/ 2 TD/TT: Race Board Attendant: [facility] Radiology Study observation (narrative) [facility] CT SINUS WO CONOrdered By: Rose adiologmadison Radiology on 02-16-2025 [facility] Work Phone: Ranjit 06-22-2024 ZAHRAA Telephone (TIERRAQ) KIM HILL ([id number]) 1970 F Date Time Provider Department 06/22/24 LOS SARMIENTO During your visit today, we recorded [...] drop [M21.371] Order(s):CT LUMBAR SPINE WO IVCON [4802554] Order #: [id number] FUTURE EMG(NEURO/NI) [20100829] Order #: [id number]: 1 FUTURE XR LUMBAR MOTION 4V AP/LAT/ FLEX/EXT [[id number]] Order #: [id number] FUTURE Prescriptions as of 06/23/2024 - gabapentin [...] mg by mouth daily at bedtime. - lepzzvefles-erqinuvfr-f ilanter (TRELEGY ELLIPTA) 100-62.5-25 mcg inhalation powder [...] Encounter Status:Closed by KENAN GODOY on 06/23/24 Normal [facility] CNOVon 06-09-2024 CNOV Office Visit (SPNSMN ) KIM HILL ([id number]) 1970 F Date Time Provider Department 06/09/24 4:00 PM LOS SARMIENTO NSFL During your visit today, we recorded the following information about you: Pulse Blood pressure Weight Height 92/minute 104/52 98 kg 1.6 m Los Sarmiento MD 06/16/2024 5:55 PM Signed Rescheduled, no charge Referring Provider: ABY MARK [[id number]] Allergies As of Date: 06/09/2024 Noted Allergy [...] mg by mouth daily at bedtime. - hdeafegvnet-cgbxnsmzh-c ilanter (TRELEGY ELLIPTA) 100-62.5-25 mcg inhalation powder Inhale 1 Puff as instructed once daily. - cefdinir (OMNICEF) 300 mg capsule Take 300 mg by mouth two times a day. - albuterol-budesonide HFA (AIRSUPRA) 90-80 mcg/actuation inhaler Inhale 2 Puffs as instructed. Do not take more than 12 inhalations in a 24 hour period. Problem List As Of Date: 06/09/2024 (None) Encounter Status:Closed by LOS SARMIENTO on 06/16/24 Normal [facility] MRI Lumbar Spine w/o + [...] by Justice Lucas on 07/31/2022 0915 Normal [facility] Principal Java Developer Automated erythrocytes count in urine sediment (number/area)Ordered [...] Basophils/100 WBC (Bld) 0.4 % . F [facility] Bilirubin Test strip Ql (U)O rdered By: Paresh Tian on 07-16-2022 Bilirubin Ql (U) Negative Negative [facility] C reactive protein [Mass/vol ume] in Serum or PlasmaOrdered By: Paresh Tian on 07-16-2022 CRP [Mass/Vol] 0.8 mg/dL 0.0-1.[address] [facility] Color Auto (U)Ordered By: Afia Tian on 07-16-2022 Color (U) Yellow Yellow [facility] Creatinine and Glomerular fi ltration rate.predicted panel (S/P/Bld)Ordered By: Paresh Tian on 07-16-2022 Creatinine [Mass/Vol] 0.74 mg/dL 0.44-1.03 [facility] Eosinophils Auto (Bld) [#/Vo l]Ordered [...] MDRD (S/P/Bld) [Vol rate/Area] > 60 mL/Min [facility] Hematocrit Auto (Bld) [Volum e fraction]Ordered By: Paresh Tian on 07-16-2022 Hematocrit (Bld) [Volume fraction] 45.3 % 34.0-46.[address] [facility] Hemoglobin [Mass/volume] in BloodOrdered By: Paresh Tian on 07-16-2022 Hemoglobin (Bld) [Mass/Vol] 15.2 g/dL 11.8-15.[address] [facility] Ketones Auto test strip (U) [Mass/Vol]Ordered By: Paresh Tian on 07-16-2022 Ketones (U) [Mass/Vol] Negative Negative [facility] - UrinalysisOrder ed By: [...] MCH Auto (RBC) [Entitic mass ]Ordered By: aPresh Tian on 07-16-2022 MCH (RBC) [Entitic mass] 33.8 pg 24.7-34.[address] [facility] MCHC Auto (RBC) [Mass/Vol]Or dered By: Paresh Tian on 07-16-2022 MCHC (RBC) [Mass/Vol] 33.6 g/dL 32.0-35.0 [facility] MCV Auto (RBC) [Entitic vol] Ordered By: Paresh Tian on 07-16-2022 MCV (RBC) [Entitic vol] 100.6 fL 80-100 F [facility] Mitotic spindle apparatus Ab [Titer] in [...] Monocytes/100 WBC (Bld) 6.8 % . F [facility] Neutrophils Auto (Bld) [#/Vo l]Ordered By: [...] titers Nucleosomes, Histones Drug-induced SLE Speckled Sm, VENDOR QUALITY SUPERVISOR, SCL-70, SLE,MCTD,PSS (diffuse form), SS-A/SS-B Sjogrens Nucleolar SCL-70, PM-1/SCL High titers Scleroderma, PM/DM Centromere Centromere PSS (limited form) w/Crest syndrome variable Nuclear Dot Sp100,s70-wfrayw Primary Biliary Cirrhosis Nuclear GP210, Primary Biliary CirrhosisMembrane kailyn A,B,C Performed at: [facility] [id number] Director: Collin Rodriguez PhD, Phone: [phone] Estimated GFR () > 60 mL/Min [facility] Comment on above: GFR estimated refere nce range: According to KDOQI guidelines, <60 ml/min/1.73m2 is sufficient to diagnose a patient with chronic kidney disease. Pharmacy Creatinine Clearance (Chem N/A [facility] Total Complement (CH50) >60 U/mL >41 [facility] Comment on above: Age Male Female [...] to determine out of range values.Performed at: [facility] [id number] Director: Collin Rodriguez PhD, Phone: [phone] Nucleated erythrocytes [Pres ence] in Blood by [...] on 07-16-2022 Protein (U) [Mass/Vol] Negative Negative [facility] RBC Auto (Bld) [#/Vol]Ordere d By: Paresh Tian on 07-16-2022 RBC (Bld) [#/Vol] 4.50 10*6/uL 3.60-5.00 [facility] Serum homogeneous pattern an tinuclear antibody (ASTER) titerOrdered By: Paresh Tian on 07-16-2022 Homogenous nuclear Ab pattern (S) [Titer] N/A [facility] Serum nuclear antibody titer Ordered By: Paresh Tian on 07-16-2022 Nuclear Ab (S) [Titer] Positive . Fi [facility] Comment on above: Negative <1:80 Borde rline 1:80 Positive >1:80 Serum or plasma complement C 3 measurement (mass/volume)Ordered By: Paresh Tian on 07-16-2022 Complement C3 [Mass/Vol] 197 mg/dL 82-[address] [facility] Comment on above: Performed at: [address] Director: Collin Rodriguez PhD, Phone: [phone] Serum or plasma complement C 4 measurement [...] Auto test strip (U) [Mass/Vol]Ordered By: Paresh Weeksbetzaida on 07-16-2022 Urobilinogen (U) [Mass/Vol] Normal mg/dL Normal [facility] WBC Auto (Bld) [#/Vol]Ordere d By: Paresh Tian on 07-16-2022 WBC (Bld) [#/Vol] 10.4 10*3/uL 3.8-11.6 [facility] pH Auto test strip [...] DASHA KHAN Date: 2022-05-15 07:49 Normal [facility] Covid-19 PCR (CVDTB)on SARS-CoV-2 (COVID-19) RNA AMBERLY+probe Ql (Unsp spec) Not detected Normal NOT DETECTED [facility] Comment on above: Result Comment: This test is not yet approved or cleared by the [place] FDA. When there are no FDA-approved or cleared tests available, and other criteria are met, FDA can make tests available under an emergency access mechanism called an Emergency Use Authorization (EUA). The EUA for this test is supported by the Loan Review Manager of Health and Human Service's (HHS's) declaration [...] consistent with SARS-CoV-2. Performed By: #### C VDTB #### [facility] [address] [place] [address] [address] Narendra Jacobsen COVID-19 Positive/NegativeOr dered By: Baljinder Rausch on 01-31-2022 SARS-CoV-2 (COVID-19) N gene AMBERLY+probe Ql (Resp) Negative Negative [facility] Comment on above: Testing for SARS-CoV -2 by RT-PCR This test was developed and its performance characteristics determined by [employer] ([employer]) and validated at the [facility] [...] COVID-19 Positive/Negativeon 05-20-2020 COVID-19 Positive/Negative Negative Negative [facility] Comment on above: Testing for SARS-CoV -2 by RT-PCRThis test was developed and its performance characteristics determined by [employer] (BD) and validated at the [facility] [...] Otheron 05-20-2020 Coronavirus 2019 PCR Interp N/A [facility] Automated basophil %on 05-14 Basophils/100 WBC (Bld) 0.5 % F [facility] Automated basophil counton 1 07-15-2019 Basophils (Bld) [#/Vol] 0.0 10*3/uL 0.0-0.2 [facility] Automated blood lymphocyte c ount (number/volume)on 05-14-2020 Lymphocytes (Bld) [#/Vol] 2.8 10*3/uL 1.00-4.8 [facility] Automated blood lymphocyte c ount as percentage of total leukocyteson 05-14-2020 Lymphocytes/100 WBC (Bld) 35.0 % [facility] Automated blood monocyte cou nton 05-14-2020 Monocytes (Bld) [#/Vol] 0.6 10*3/uL 0.0-0.8 [facility] Automated blood platelet cou nt (count/volume)on 05-14-2020 Platelets (Bld) [#/Vol] 225 10*3/uL 150-450 [facility] Automated blood platelet jose n volume measurementon 05-14-2020 Platelet mean volume (Bld) [Entitic vol] 8.2 fL 6.3-10.7 [facility] Automated eosinophil %on Eosinophils/100 WBC (Bld) 1.5 % [facility] Automated eosinophil counton 05-14-2020 Eosinophils (Bld) [#/Vol] 0.1 10*3/uL 0.0-0.45 [facility] Automated erythrocyte distri bution width ratioon 05-14-2020 Erythrocyte distribution width (RBC) [Ratio] 12.3 % 11.9-15.3 [facility] Automated erythrocyte mean c orpuscular hemoglobin (mass per erythrocyte)on 05-14-2020 MCH (RBC) [Entitic mass] 35.2 pg 24.7-34.3 [facility] Automated erythrocyte mean c orpuscular hemoglobin concentration measurement (mass/volon 05-14-2020 MCHC (RBC) [Mass/Vol] 34.2 g/dL 32.0-35.0 [facility] Automated erythrocyte mean c orpuscular volumeon 05-14-2020 MCV (RBC) [Entitic vol] 102.9 fL 80-100 [facility] Automated monocyte %on 05-14 Monocytes/100 WBC (Bld) 7.0 % F [facility] Automated neutrophil %on Neutrophils/100 WBC (Bld) 56.0 % [facility] Blood erythrocytes automated count (number/volume)on 05-14-2020 RBC (Bld) [#/Vol] 4.08 10*6/uL 3.60-5.00 [facility] Blood hemoglobin measurement (mass/volume)on 05-14-2020 Hemoglobin (Bld) [Mass/Vol] 14.3 g/dL 11.8-15.4 [facility] Blood leukocytes automated c ount (number/volume)on 05-14-2020 WBC (Bld) [#/Vol] 7.9 10*3/uL 4.5-11.0 [facility] Blood neutrophil count by au tomated method (number/volume)on 05-14-2020 Neutrophils (Bld) [#/Vol] 4.4 10*3/uL 1.8-7.7 [facility] Estimated glomerular filtrat ion rate (GFR) non- Americanon 05-14-2020 GFR/1.73 sq M predicted among non-blacks MDRD (S/P/Bld) [Vol rate/Area] mL/min/{1.73_m2} [facility] Hematocrit [Volume Fraction] of Blood by Automated counton 05-14-2020 Hematocrit (Bld) [Volume fraction] 41.9 % 34.0-46.4 [facility] Otheron 05-14-2020 GFR/1.73 sq M.predicted MDRD (S/P/Bld) [Vol rate/Area] mL/min/{1.73_m2} [facility] Comment on above: GFR estimated refere nce range: According to KDOQI guidelines, <60 ml/min/1.73m2 is sufficient to diagnose a patient with chronic kidney disease. Nucleated RBC/100 WBC (Bld) [Ratio] 0.1 % 0-0.5 [facility] Pharmacy Creatinine Clearance (Chem N/A [facility] Serum or plasma calcium octavio urement (mass/volume)on 05-14-2020 Calcium [Mass/Vol] 10.1 mg/dL 8.2-10.2 [facility] Serum or plasma chloride jose surement (moles/volume)on 05-14-2020 Chloride [Moles/Vol] 101 mmol/L 95-114 [facility] Serum or plasma creatinine m easurement with calculation of estimated glomerular filtron 05-14-2020 Creatinine [Mass/Vol] 0.60 mg/dL 0.44-1.03 [facility] Serum or plasma glucose octavio urement (mass/volume)on 05-14-2020 Glucose [Mass/Vol] 94 mg/dL 70-100 [facility] Comment on above: ADA recommended refe rence rangeRandom Glucose Reference Range is dependent on time and content of last meal. Glucose of more than 200 mg/dL in a nonstressed, ambulatory subject supports the diagnosis of Diabetes Mellitus. Serum or plasma potassium me asurement (moles/volume)on 05-14-2020 Potassium [Moles/Vol] 4.3 mmol/L 3.5-5.1 [facility] Serum or plasma sodium measu rement (moles/volume)on 05-14-2020 Sodium [Moles/Vol] 140 mmol/L 136-146 [facility] Serum or plasma total carbon dioxide measurement (moles/volume)on 05-14-2020 CO2 [Moles/Vol] 27.2 mmol/L 22.0-30.0 [facility] Serum or plasma urea nitroge n measurement (mass/volume)on 05-14-2020 Urea nitrogen [Mass/Vol] 7 mg/dL 9-23 [facility] Vital Signs Date Time Vital Sign Value Performing Clinician Facility 12-19-2024 15:03-0400 Body height 160 cm Jacky Brandon MD Work Phone: [facility] 12-19-2024 15:03-0400 Body mass index (BMI) [Ratio] 41.1 kg/m2 Jacky Brandon MD Work Phone: [facility] 12-19-2024 15:03-0400 Body weight 105.23 kg Jacky Brandon MD Work Phone: [facility] 12-19-2024 15:03-0400 Diastolic blood pressure 69 mm[Hg] Jacky Brandon MD Work Phone: [facility] 12-19-2024 15:03-0400 Heart rate 96 /min Jacky Brandon MD Work Phone: [facility] 12-19-2024 15:03-0400 Systolic blood pressure 115 mm[Hg] Jacky Brandon MD Work Phone: [facility] 09-26-2024 14:59-0400 Body height 160 cm Los Sarmiento MD Work Phone: [facility] 09-26-2024 14:59-0400 Body mass index (BMI) [Ratio] 38.14 kg/m2 Los Samriento MD Work Phone: [facility] 09-26-2024 14:59-0400 Body weight 97.65 kg Los Sarmiento MD Work Phone: [facility] 09-26-2024 14:59-0400 Diastolic blood pressure 95 mm[Hg] Los Sarmiento MD Work Phone: [facility] 09-26-2024 14:59-0400 Heart rate 96 /min Los Sarmiento MD Work Phone: [facility] 09-26-2024 14:59-0400 Respiratory rate 16 /min Los Sarmiento MD Work Phone: [facility] 09-26-2024 14:59-0400 SaO2% (BldA) [Mass fraction] 98 % Los Sarmiento MD Work Phone: [facility] 09-26-2024 14:59-0400 Systolic blood pressure 155 mm[Hg] Los Sarmiento MD Work Phone: [facility] 08-17-2022 16:00-0400 Body height 160.02 cm Gina Blades Other [facility] Other 08-17-2022 16:00-0400 Body mass index (BMI) [Ratio] 40.56 kg/m2 Gina Blades Other [facility] Other 08-17-2022 16:00-0400 Body weight 103.87 kg Gina Blades Other [facility] Other 08-17-2022 16:00-0400 Diastolic blood pressure 82 mm[Hg] Gina Blades Other [facility] Other 08-17-2022 16:00-0400 Systolic blood pressure 126 mm[Hg] Gina Blades Other [facility] Other Encounters Encounter Date Encounter Type Care Provider Facility Start: 02-16-2025 End: 02-16-2025 Clinisync Result Encounter Jacky Brandon MD Work Phone: [facility] Unsolicited Start: 02-16-2025 End: 02-16-2025 Clinisync Result Encounter Jacky Brandon MD Work Phone: [facility] Unsolicited Start: 02-05-2025 End: 02-05-2025 ambulatory Aaron Mosqueda MD Facility:[facility] Start: 12-19-2024 End: 12-19-2024 Office outpatient new 45 minutes Jacky Brandon MD Work Phone: [facility] Comment on above: Phantosmia (Primary Dx); Chronic maxillary sinusitis; History of MRSA infection Start: 12-19-2024 End: 12-19-2024 ambulatory JACKY BRANDON Not Available Start: 12-19-2024 End: 12-19-2024 Bamborajani Brandon MD Work Phone: [facility] Start: 12-19-2024 End: 12-19-2024 Bamboo flowsheet Jacky Brandon MD Work Phone: [facility] Start: 09-26-2024 End: 09-26-2024 Patient encounter procedure Los Sarmiento MD Work Phone: [facility] Comment on above: Spinal stenosis of c ervical region (Primary Dx); Lumbar radiculopathy; Adhesive arachnoiditis (HCC) Start: 09-26-2024 ambulatory LOS Rob ity:[facility] Start: 08-28-2024 End: 08-28-2024 ambulatory Aaron Mosqueda MD Facility: [facility] Start: 06-22-2024 End: 06-23-2024 Telephone encounter Los Sarmiento MD Work Phone: Neurology Comment on above: Orders Start: 06-16-2024 End: 06-16-2024 ambulatory Los Sarmiento MD Work Phone: [facility] Comment on above: Lumbar radiculopathy (Primary Dx) Start: 06-16-2024 End: 06-16-2024 Telemedicine consultation with patient Los Sarmiento MD Work Phone: [facility] Start: 06-09-2024 ambulatory ABY MARK Fac ility:[facility] Start: 04-24-2024 End: 04-24-2024 ambulatory Aaron Mosqueda MD Facility: [facility] Start: 03-27-2024 End: 03-27-2024 ambulatory Aaron Mosqueda MD Facility: [facility] Start: 03-06-2024 End: 03-10-2024 Chart abstracting Los Sarmiento MD Work Phone: Neurology Start: 10-27-2022 ambulatory NARENDRANATH LAKSHMIPATHY . Facility:[facility] Start: 10-13-2022 End: 10-13-2022 ambulatory NARENDRANATH LAKSHMIPATHY . Facility:[facility] Start: 10-06-2022 End: 10-07-2022 ambulatory NARENDRANATH LAKSHMIPATHY . Facility:[facility] Start: 09-08-2022 End: 09-08-2022 ambulatory Gina Blades Other [facility] Other Start: 09-08-2022 Telephone encounter Gina Blades F [facility] Neurosurgery Start: 09-01-2022 End: 09-02-2022 ambulatory NARENDRANATH LAKSHMIPATHY . Facility:[facility] Start: 08-17-2022 End: 08-17-2022 Patient encounter procedure DO Roberto Roth Work Phone: [facility]XRay [facility] Work Phone: Start: 08-17-2022 End: 08-17-2022 ambulatory DO Roberto Roth Work Phone: [facility] Work Phone: Start: 08-17-2022 Office outpatient ne w 45 minutes Gina Blades [facility] Neurosurgery Start: 07-16-2022 End: 07-17-2022 ambulatory DO Roberto Roth Work Phone: [facility] Work Phone: Start: 07-16-2022 End: 07-16-2022 Patient encounter procedure DO Roberto Roth Work Phone: [facility]-Lab [address] Work Phone: Start: 07-03-2022 End: 07-03-2022 ambulatory DO Roberto Roth Work Phone: [facility] Work Phone: Start: 07-03-2022 End: 07-03-2022 Patient encounter procedure DO Roberto Roth Work Phone: [facility]XRay [facility] Work Phone: Start: 06-23-2022 End: 06-23-[address] HOOD RAUSCH . Facility:[facility] Start: 05-29-2022 End: 05-30-[address] HOOD RAUSCH . Facility:[facility] Start: 05-14-2022 End: 05-15-2022 ambulatory ADA ELLIOTTIS . Facility:[facility] Start: 03-12-2022 End: 03-13-[address] HOOD RAUSCH . Facility:[facility] Start: 02-13-2022 Encounter for preprocedural laboratory examination DR HOOD RAUSCH . [facility] Start: 02-10-2022 End: 02-10-[address] HOOD RAUSCH . Facility:[facility] Start: 02-06-2022 End: 02-07-[address] HOOD RAUSCH . Facility:[facility] Start: 02-06-2022 End: 02-07-2022 Encounter for preprocedural laboratory examination DR HOOD ARUSCH . Facility:[facility] Start: 02-03-2022 End: 02-03-[address] HOOD RAUSCH . Facility:[facility] Start: 01-31-2022 End: 01-31-2022 Patient encounter procedure DO Roberto Roth Work Phone: [facility] COVID Testing Start: 01-16-[address] HOOD RAUSCH . Faci lity:[facility] Start: 01-07-2022 End: 01-08-[address] HOOD RAUSCH . Facility:[facility] Start: 05-20-2020 End: 05-20-2020 Patient encounter procedure Roberto Roth -Pre-Surgical Testing Start: 05-14-2020 End: 05-14-2020 Patient encounter procedure Roberto Roth -Pre-Surgical Testing Start: 04-26-2020 End: 04-26-2020 Patient encounter procedure Roberto Roth -[facility] [place] Procedures Date Procedure Procedure Detail Performing Clinician Start: 02-16-2025 CT SINUS WO CON Jacky Brandon MD Work Phone: Start: 07-16-2022 Urine culture DO Roberto reyes Work Phone: Start: 07-03-2022 X-ray of lumbar spin e, six views including bending views DO Roberto Roth Work Phone: Start: 04-26-2020 X-ray of lumbar spin e, four views Roberto Roth Plan of Treatment Date Care Activity Detail Author Start: 02-26-2025 End: 02-26-2025 Patient encounter procedure 02/26/2025 3:20 PM EDT Office Visit [facility] [address] [facility] [address] [place] [address] Jacky Brandon MD [address] [facility] [address] [place] [address] [facility] Start: 01-29-2025 Influenza vaccination C [facility] Start: 01-23-2025 End: 01-23-2025 Patient encounter procedure 01/23/2025 3:20 PM EDT Office Visit [facility] [address] [facility] [address] [place] [address] Jacky Brandon MD [address] [facility] [address] [place] [address] [facility] Start: 12-19-2024 End: 12-19-2025 Aerobic culture Aerobic culture Microbiology Routine Phantosmia Expected: 12/19/2024 (Approximate), Expires: 12[facility]19/[facility] Work Phone: Comment on above: Expected: 12/19/2024 (Approximate), Expires: 12/19/2025 Start: 01-30-2024 Covid-19 Vaccine ( season) Covid-19 Vaccine ( season) [facility] Start: 01-30-2024 Influenza vaccination Influenza Vacc ine (#1) [facility] Start: 08-17-2022 Plain X-ray of right hip [...] of 2) Shingrix Vaccine (1 of 2) [facility] Start: 2013 Diabetes Screening Diabetes Screenin g [facility] Start: 2013 Lipid panel Lipid Screening [facility] Start: 2013 Screening for malignant neoplasm of colon [facility] Start: 2008 Screening for malignant neoplasm of breast [facility] Start: 1998 Screening for malignant neoplasm of cervix [facility] Start: 1989 Screening for malignant neoplasm of cervix [facility] Start: 10-03-1987 Hepatitis B Vaccine (1 of 3 - 19+ 3-dose series) Hepatitis B Vaccine (1 of 3 - 19+ 3-dose series) [facility] Start: 10-03-1987 Pneumococcal Vaccine : 50+ (1 of 2 - PCV) Pneumococcal Vaccine: 50+ (1 of 2 - PCV) [facility] Start: 10-03-1987 Urine microalbumin profile DTaP,Tdap,Td Vaccine (1 - Tdap) [facility] Start: 1986 Anxiety Screening Anxiety Screening [facility] Start: 1986 Depression Screening Depression Scre [facility] Start: 1986 Hepatitis C screening Hepatitis C Sc [facility] Start: 1986 HIV screening HIV Screening [facility] Start: 1968 Screening for malignant neoplasm of colon [facility] Complement C3 [Mass/volume] in Serum or Plasma [facility] Complement C4 [Mass/volume] in Serum or Plasma [facility] End: 07-23-2025 CT Lumbar spine WO contrast CT LUMBAR SPINE WO IVCON Radiology Routine Radiculopathy of lumbar region Spinal stenosis of lumbar region without neurogenic claudication 1 Occurrences starting 06/23/2024 until 07/23/2025 [facility] Work Phone: Comment on above: 1 Occurrences starti ng 06/23/2024 until 07/23/2025 End: 06-23-2025 EMG(NEURO/NI) EMG(NEURO/NI) EMG Routine Radiculopathy of lumbar region Spinal stenosis of lumbar region without neurogenic claudication Right foot drop 1 Occurrences starting 06/23/2024 until 06/23/2025 [facility] Comment on above: 1 Occurrences starti ng 06/23/2024 until 06/23/2025 Homogenous nuclear A b pattern [Titer] in Serum [facility] End: 10-26-2025 MR Cervical spine WO contrast MRI CERVICAL SPINE WO IVCON Radiology Routine Spinal stenosis of cervical region 1 Occurrences starting 09/26/2024 until 10/26/2025 [facility] Work Phone: Comment on above: 1 Occurrences starti ng 09/26/2024 until 10/26/2025 Nuclear Ab [Titer] i n Serum [facility] End: 07-23-2025 XR Lumbar spine Views W flexion and W extension XR LUMBAR MOTION 4V AP/LAT/ FLEX/EXT Radiology Routine Radiculopathy of lumbar region Spinal stenosis of lumbar region without neurogenic claudication 1 Occurrences starting 06/23/2024 until 07/23/2025 [facility] Comment on above: 1 Occurrences starti ng 06/23/2024 until 07/23/2025 Immunizations Immunization Date Immunization Notes Care Provider Fa brown 11-09-2020 COVID-19 mRNA-1273 (Moderna) DO Roberto Roth Work Phone: [facility] 10-12-2020 COVID-19 mRNA-1273 (Moderna) DO Roberto Roth Work Phone: [facility] 05-23-2020 influenza, injectabl e, quadrivalent, preservative free DO Roberto Roth Work Phone: [facility] 05-23-2020 influenza virus vaccine, unspecified formulation Los Sarmiento MD Work Phone: [facility] Payers Date Payer Category Payer [employer] [id number] 2023 Unknown [id number] 2023 Unknown [id number] 2022 Self-pay [id number] 1968 Unknown [id number] 2.16.84 0.1.107395.3.579.2.593 1968 Unknown [id number] 2.16.84 0.1.121597.3.579.2.593 1968 Unknown [id number] 2.16.84 0.1.708829.3.579.2.593 1968 Unknown [id number] 2.16.84 0.1.757766.3.579.2.593 1968 Unknown [id number] 2.16.84 0.1.133269.3.579.2.593 1968 Unknown [id number] .16.84 0.1.219168.3.579.2.593 1968 Unknown [id number] 2.16.84 0.1.053953.3.579.2.593 1968 Unknown [id number] 2.16.84 0.1.406889.3.579.2.593 1968 Unknown [id number] 2.16.84 0.1.030702.3.579.2.593 1968 Unknown [id number] 2.16.84 0.1.934564.3.579.2.593 1968 Unknown [id number] 2.16.84 0.1.407176.3.579.2.593 1968 Unknown [id number] 2.16.84 0.1.196679.3.579.2.593 1968 Unknown [id number] 2.16.84 0.1.603351.3.579.2.593 1968 Unknown [id number] 2.16.84 0.1.878617.3.579.2.593 1968 Unknown [id number] 2.16.84 0.1.844858.3.579.2.593 1968 Unknown [id number] 2.16.8 40.1.969728.3.579.2.1259 1968 Unknown [id number] 2.16. 840.1.514834.3.579.2.196 1968 Unknown [id number] 2.16. 840.1.389224.3.579.2.196 1968 Unknown [id number] 2.16. 840.1.288049.3.579.2.196 1968 Unknown [id number] 2.16. 840.1.649461.3.579.2.196 1959 Unknown [id number] Unknown [id number] Unknown [id number] 2.16.8 40.1.515028.3.579.2.531 Social History Date Type Detail Facility Start: 05-14-2020 End: 06-23-2021 Tobacco smoking status ORIS Smoker (finding) [facility] Start: 1970 Sex Assigned At Female F [facility] Start: 06-09-2024 End: 12-19-2024 History of tobacco use [facility] Tobacco smoking stat us ORIS Tobacco smoking consumption unknown [facility] Start: 1970 Sex assigned at Not on file C [facility] Start: 06-09-2024 End: 12-19-2024 Tobacco smoking status ORIS Smokes tobacco daily [facility] History of tobacco use Cigarette Smoker C [facility] Start: 06-09-2024 End: 12-19-2024 Tobacco use and exposure Smokeless tobacco non-user [facility] Start: 06-09-2024 End: 12-19-2024 Alcoholic beverage intake Ex-drinker (finding) [facility] Start: 06-09-2024 End: 12-19-2024 History of Social function [facility] Adult Depression Screening Assessment 3 [facility] Medical Equipment Procedure Code Equipment Code Equipment Origin al Text Equipment Identifier Dates Fusion, spine, lumbar, XLIF CANCELLOUS COARSE 7.5CC FDA Start: 05-22-2020 Fusion, spine, lumbar, XLIF Bone-screw internal spinal fixation system, non-sterile ()[id number] FDA Start: 05-22-2020 Fusion, spine, lumbar, XLIF Bone-screw internal spinal fixation system, non-sterile ()[id number] FDA Start: 05-22-2020 Fusion, spine, lumbar, XLIF Bone-screw internal spinal fixation system, non-sterile ()[id number] FDA Start: 05-22-2020 Fusion, spine, lumbar, XLIF CANCELLOUS COARSE 7.5CC FDA Start: 05-22-2020 Fusion, spine, lumbar, XLIF Bone-screw internal spinal fixation system, non-sterile ()[id number] FDA Start: 05-22-2020 Fusion, spine, lumbar, XLIF Bone-screw internal spinal fixation system, non-sterile ()[id number] FDA Start: 05-22-2020 Fusion, spine, lumbar, XLIF Polymeric spinal fusion cage, non-sterile ()[id number] FDA Start: 05-22-2020 Fusion, spine, lumbar, XLIF Dura mater graft, bovine ()[id number] FDA Start: 05-22-2020 Fusion, spine, lumbar, XLIF MAS REDUCTION FIXATION ADD LEV FDA Start: 05-22-2020 Fusion, spine, lumbar, XLIF XLIF 1 LEVEL MAS REDUCTION FDA Start: 05-22-2020 Fusion, spine, lumbar, XLIF Spinal fusion graft kit ()[id number] FDA Start: 05-22-2020 Fusion, spine, lumbar, XLIF Bone matrix implant, human-derived ()[id number] FDA Start: 05-22-2020 Fusion, spine, lumbar, XLIF Metallic spinal fusion cage, non-sterile ()[id number] FDA Start: 05-22-2020 Fusion, spine, lumbar, XLIF Bone-screw internal spinal fixation system, non-sterile ()[id number] FDA Start: 05-22-2020 Fusion, spine, lumbar, XLIF [...] Activity /State Clinical Notes 01-07-2022 to 12-19-2024 Jacky Brandon MD - 12/19/2024 3:00 PM EDTCliLos vega MD - 09/26/2024 3:00 PM EDTTelephone Encounter [...] surgical tx. documented in this encounter [facility] 09-26-2024 History of Presen t illness [...] gabapentin, meloxicam, voltaren cream, heat, mdp x1 [place] - 3x/dy REVIEW OF SYSTEMS: GENERAL: No [...] 10 mg by mouth daily at bedtime. snowrgmtcgb-kilstwaqq-grgczftw (TRELEGY ELLIPTA) 100-62.5-25 mcg inhalation powder Inhale [...] with more than 50% of the total vsbi-db-sfow time of the visit in counseling / coordination of care. SIGNATURE: Los aSrmiento MD PATIENT NAME: Kim Hill DATE: September 25, 2024 TIME: 3:07 PM PAGER: By signing my name below, I, Ernestina Albert, attest that this documentation has been prepared under the direction and in the presence of Dr. Sarmiento Electronically signed, Monae Chew September 25, 2024 3:08 PM documented in this encounter [facility] 06-23-2024 Telephone encounter Note Neuro SPINE CARE COORDINATION QUICK NOTE Called patient, no answer. Left non-detailed VM on non-identified VM box instructing patient to call office or check MYC messages for details. Ness Corbett RN June 23, 2024 11:12 AM [facility] 06-23-2024 Miscellaneous Notes Neuro SPINE CARE COORDINATION [...] Pt can schedule. documented in this encounter [facility] 06-22-2024 Telephone encounter Note Pt called asking for orders informed by on OV 06/16/24. Discussed with patient will order CT and EMG as well as standing xray Pls send MyC msg once orders are ready so that Pt can schedule. [facility] 06-16-2024 Note HNO ID: [id number] Author: LOS SARMIENTO MD Service: ? Author Type: Physician Type: Progress Notes Filed: 06/16/2024 17:55 Note Text: Rescheduled, no charge [facility] 06-16-2024 Note HNO ID: [id number] Author: LOS SARMIENTO MD Service: ? Author Type: Physician Type: Progress Notes Filed: 06/16/2024 09:36 Note Text: I have communicated my name and active licensure. The patient's identity and physical location were verified at the time of this visit. Either the patient or their legal loss control representative has been informed of the risks and benefits of -- and alternatives to -- treatment through a remote evaluation and consents to proceed with the evaluation remotely. Patient reports having surgery in 2020, L4-S1 fusion. Woke up with right foot [...] with more than 50% of the total zzus-es-evgp time of the visit in counseling / coordination of care. [facility] 06-16-2024 History of Presen t illness Narrative I have communicated my name and active licensure. The patient's identity and physical location were verified at the time of this visit. Either the patient or their legal loss control representative has been informed of the risks and benefits of -- and alternatives to -- treatment through a remote evaluation and consents to proceed with the evaluation remotely. Patient reports having surgery in 2020, L4-S1 fusion. Woke up with right foot [...] with more than 50% of the total yzdu-xj-eanf time of the visit in counseling / coordination of care. documented in this encounter [facility] 03-10-2024 Note HNO ID: [id number] Author: KENAN GODOY APRN.[employer] Service: ? Author Type: Nurse Practitioner Type: [...] comfortable position Provider Dr Aby Mark Requesting ronnie Priro sur - lumbar - [facility] - 2 cages CMT: Inj, gabapentin, meloxicam, voltaren cream, heat, mdp x1 [place] - 3x/dy Studies (Reports unless indicated) Mri lumbar report Lumbarization S1 S/p :L4-S1 fusion L5/S1 mod b/l FS S1/2 paraspinal muscle mod to severe atrophy Disposition: Please schedule with dr sarmiento if patient would like soon can schedule with myself. Please instruct patient to bring copy of imaging and injection history for review. [facility] 03-10-2024 History of Presen t illness [...] comfortable position Provider Dr Aby Mark Requesting ronnie Priro sur - lumbar - [facility] - 2 cages CMT: Inj, gabapentin, meloxicam, voltaren cream, heat, mdp x1 [place] - 3x/dy Studies (Reports unless indicated) Mri [...] Health Provider or Pain Management Provider at [facility]? No If answer is YES [...] the facility where the MRI/CT/myelogram was completed: [place] [address] MRI/CT/myelogram viewable in [facility]: No If not, please provide [phone] to fax in imaging reports for review. Also, please inform patient to hand carry imaging disc to appointment. XR (spine) within 12 months: Yes If YES, please ask for the name/address of the facility where the XR was completed: [place] [address] Dr. Freeman's patients: Have you had previous EMG/Nerve Conduction Study, Ultrasound, or MRI for these same symptoms? If YES, please ask for the name/address of the facility where they were completed: Requested provider (First and Last name): Ronnie Are you interested in a virtual visit [...] therapy was completed [facility] [place] [address] Have you tried any other kinds of non-surgical treatments in the last 12 months? (For example: NSAIDS, muscle relaxants, analgesics, oral steroids, Chiropractor, Acupuncture): gabapentin, meloxicam, voltaren cream, heat, mdp x1 4. Are you currently taking daily prescribed narcotic medications for your current symptoms (For example Oxycodone, Hydrocodone, Tramadol, Morphine, Other)? Yes [place] - 3x/dy 5. Have you had previous spinal surgery for this same symptoms? Yes If YES please ask for the name of facility/address of where the surgery was completed: 2019 [facility] - 2 cages Additional Comments [phone] documented in this encounter [facility] 03-06-2024 Note HNO ID: [id number] Author: ?, ?, ? Service: ? Author Type: ? Type: Progress Notes Filed: 03/10/2024 16:07 Note Text: Patient name: Kim Hill Are you being referred by a [facility] Spine Health Provider or Pain Management Provider at [facility]? No If answer is YES [...] the facility where the MRI/CT/myelogram was completed: [place] [address] MRI/CT/myelogram viewable in [facility]: No If not, please provide [phone] to fax in imaging reports for review. Also, please inform patient to hand carry imaging disc to appointment. XR (spine) within 12 months: Yes If YES,? please ask for the name/address of the facility where the XR was completed: [place] [address] Dr. Freeman's patients: Have you had previous EMG/Nerve Conduction Study, Ultrasound, or MRI for these same symptoms? If YES,? please ask for the name/address of the facility where they were completed: Requested provider (First and Last name): Ronnie Are you interested in a virtual visit [...] therapy was completed [facility] [place] - [address] [place] [address] Have you tried any other kinds of non-surgical treatments in the last 12 months? (For example: NSAIDS, muscle relaxants, analgesics, oral steroids, Chiropractor, Acupuncture): gabapentin, meloxicam, voltaren cream, heat, mdp x1 4. Are you currently taking daily prescribed narcotic medications for your current symptoms (For example Oxycodone, Hydrocodone, Tramadol, Morphine, Other)? Yes [place] - 3x/dy 5. Have you had previous spinal surgery for this same symptoms? Yes If YES? please ask for the name of facility/address of where the surgery was completed: 2019 - [facility] - [facility] - 2 cages Additional Comments [phone] [facility] 10-06-2022 Note CONSULTATION CONSULTATION DATE: 10/06/2022 [...] pill b.i.d. and to continue to use [place] 7.5 mg t.i.d. We did reduce the use at her last visit from 90 pills a month to 80 pills to last one month's time. She appears to be tolerating this transition quite well. I have asked her to continue with gabapentin 600 mg t.i.d. Her JOYCE on today's visit is 28. She reports the [place] does improve her quality of life, level of functioning and sleep pattern, and she denies any side effects. As part of providing excellent, safe, comprehensive care, the following was completed at our patient's visit: 1. A medication reconciliation and review to ensure accurate knowledge of current/active medications, including asking our patients to inform us about any nzuc-sbr-vxglzdo medications or herbal remedies/nutritional supplements/alternative remedies. 2. [...] options with their primary care provider. [facility] 09-01-2022 Note CONSULTATION CONSULTATION DATE: 09/01/2022 TO: Dr. Roht CHIEF COMPLAINT: Includes lower back pain, worse [...] our patients to inform us about any hhso-fjj-vtdzjlt medications or herbal remedies/nutritional supplements/alternative remedies. 2. [...] options with their primary care provider. [facility] 08-17-2022 Evaluation note Encounter Date Diagnosis Assessment Notes Jul, Other chronic pain (ICD-10 - G89.29) Jul, Low back pain, unspecified (ICD-10 - M54.50) [facility] Other 02-16-2023 NoteCONSULTATION CONSULTATION DATE: 07/16/2022 HISTORY OF PRESENT ILLNESS: This is a 51-year-old female who returns to the clinic status post bilateral SI joint injection completed on 06/23/2022. The patient received 80% relief for one day and on day two felt worse than her normal baseline pain. Today, she rates her pain 8/10. Medications include gabapentin 600 mg t.i.d., [place] 7.5/325 b.i.d. and Mobic 15 mg daily. [...] her medications; Mobic 15 mg daily and [place] 7.5/325 b.i.d. She will return to the clinic in six weeks' time, in which we will, in addition to her PCPs office, review the MRI and form a plan of care at that time. Patient is in agreement to this plan.[id number] Note CONSULTATION CONSULTATION DATE: 05/29/2022 HISTORY OF [...] down. Medications include gabapentin 600 mg t.i.d., [place] 7.5/325 b.i.d. and diclofenac 50 mg daily. [...] care and will be followed up thereafter.[facility] [id number] NoteCONSULTATION CONSULTATION DATE: 05/14/2022 HISTORY OF PRESENT [...] as well as gabapentin 600 mg t.i.d., [place] 7.5/325 t.i.d. At her last appointment, she [...] Refills for gabapentin 600 mg t.i.d. and [place] 7.5/325 b.i.d. will be sent to her pharmacy. Patient agrees to move forward with the procedure. She will followed up in the clinic thereafter.[facility] [id number] NotePAIN MANAGEMENT CONSULTATION CONSULTATION DATE: 05/14/2022 CHIEF [...] with a sacroiliac joint injection under fluoroscopy.[facility] [id number] NoteCONSULTATION CONSULTATION DATE: 03/12/2022 ADDENDUM DIAGNOSIS: Lumbar spondylosis, lumbar degenerative disc disease, chronic lower back pain and a history of a lumbar fusion.[facility] [id number] Note CONSULTATION CONSULTATION DATE: 03/12/2022 This is [...] Current medications include gabapentin 600 mg t.i.d., [place] 7.5/325 b.i.d., diclofenac cream and ibuprofen. She [...] with her vitamins as well as her [place]. The dose of frequency will not be changed. We will have the patient return to the clinic in two months' time for re-evaluation. The patient is inquiring about an increase of her [place], possibly during the winter months. There will be no changes today.[facility] [id number] NoteCONSULTATION CONSULTATION DATE: 01/07/2022 This is a [...] Current medications include gabapentin 600 mg b.i.d., [place] 7.5/325 b.i.d., diclofenac topical, multivitamin regimen and ibuprofen p.r.n. She has tried diclofenac in the past but was unable to tolerate it due to stomach issues but low-dose ibuprofen she can tolerate. She is needing [place] and gabapentin refill today. REVIEW OF SYSTEMS, [...] subsequently move to the left. Refill for [place] 7.5/325 b.i.d. and gabapentin 600 mg b.i.d. will be sent to the pharmacy. The patient is encouraged to increase magnesium in her vitamin regimen as well as menthol heat rub, seated stretches that were demonstrated and heat application. The patient agrees with the plan of care and would like to move forward and she will follow-up in the clinic post procedure.[facility] HealthEvaluation noteNo assessment information availableAdena [facility] Work Phone: Evaluation noteNo InformationNortWarren General Hospital Copybar Other evaluation note* Diagnosis Lumbar radiculopathy- Primary Thoracic or lumbosacral neuritis or radiculitis, unspecified documented in this encounter [facility] note* Diagnosis Radiculopathy of lumbar region- Primary Thoracic or lumbosacral neuritis or radiculitis, unspecified Spinal stenosis of lumbar region without neurogenic claudication Spinal stenosis, lumbar region, without neurogenic claudication Right foot drop Other acquired deformity of ankle and foot documented in this encounter [facility] note* Diagnosis Spinal stenosis of cervical region- Primary Spinal stenosis in cervical region Lumbar radiculopathy Thoracic or lumbosacral neuritis or radiculitis, unspecified Adhesive arachnoiditis (HCC) Meningitis, unspecified documented in this encounter [facility] note* Diagnosis Phantosmia- Primary Chronic maxillary sinusitis [...] see above Hospitalization History 4 child births [facility] Copybar Other reason for referral (narrative)* Diagnostic Procedure Only (Routine) - New Request Specialty Diagnoses / Procedures Referred By Claritza schumacher Referred To Contact XR IMAGING Diagnoses Radiculopathy of lumbar region Spinal stenosis of lumbar region without neurogenic claudication Procedures XR LUMBAR MOTION 4V AP/LAT/ FLEX/EXT RADEX SPINE LUMBOSACRAL MINIMUM 4 VIEWS Kenan Godoy APRN.[employer] ARCHITECT [address] [place] [address] Xr Imaging [facility]95 Referral ID Status Reason Start Date Expiration Date Visits Requested Visits Authorized [id number] New Request Auto-Generat ed Referral 06/23/2024 07/23/2025 1 1 * Outpatient Procedure (Routine) - New Request Specialty Diagnoses / Procedures Referred By Contac t Referred To Contact [facility] Diagnoses Radiculopathy of lumbar region Spinal stenosis of lumbar region without neurogenic claudication Right foot drop Procedures [facility](NEURO/NI) NERVE CONDUCTION STUDIES 9-10 STUDIES Kenan Godoy APRN.[employer] ARCHITECT [address] [id number] [facility] [address] [place] [address] Referral ID Status Reason Start Date Expiration Date Visits Requested Visits Authorized [id number] New Request Auto-Generat ed Referral 06/23/2024 06/23/2025 1 1 * MRI/CT (Routine) - New Request Specialty Diagnoses / Procedures Referred By Contac t Referred To Contact CT IMAGING Diagnoses Radiculopathy of lumbar region Spinal stenosis of lumbar region without neurogenic claudication Procedures CT LUMBAR SPINE WO IVCON CT LUMBAR SPINE W/O CONTRAST MATERIAL Kenan Godoy, PRIME BROKER.[employer] ARCH[employer] [id number] [facility] [place] [address] Referral ID Status Reason Start Date Expiration Date Visits Requested Visits Authorized [id number] New Request Auto-Generat ed Referral 06/23/2024 07/23/2025 1 1 [facility] Advance Directives Advance Directive Response Recorded Date/ [...] Roth DO Primary Care Provider Active Aby Mark NP-C Attending Provider Active Team Status: Inactive Member Role Status Dates Roberto Roth DO Primary Care Provider Active Paresh Tian MD Attending Provider Active Team Status: Inactive Member Role Status Dates Roberto Roth DO Primary Care Provider Active Gina Guerrero MD Attending Provider Active Project Management Professor Relationship Specialty Start Date End Date Aby Mark CNP [address] [place] [address] Referring Family Medicine 03/02/24 Project Management Professor Relationship Specialty Start Date End Date Aby Mark CNP [address] [place] [address] Referring Family Medicine 03/02/24 Project Management Professor Relationship Specialty Start Date End Date Aby Mark CNP [address] [place] [address] Referring Family Medicine 03/02/24 Project Management Professor Relationship Specialty Start Date End Date Aby Mark CNP [address] [place] [address] Referring Family Medicine 03/02/24 Project Management Professor Relationship Specialty [place] [address] [place] [address] PCP - General Cardiology 12/05/24 Project Management Professor Relationship Specialty [place] [address] [place] [address] PCP - General Cardiology 12/05/24 Project Management Professor Relationship Specialty Start [place] [address] [place] [address] PCP - General Cardiology 12/05/24 Goals (unrecognized section and content) Goals may be documented in a n alternate sectionGoals may be documented in an alternate sectionGoals may be documented in an alternate sectionGoals may be documented in an alternate sectionNo InformationNo Information INFORMATION SOURCE (unrecogn ized section and content) DATE CREATED AUTHOR 08/01/2022 [facility] dical Specialist DATE CREATED AUTHOR AUTHOR'S ORGANIZ ATION 11/06/2022 [facility] DATE CREATED AUTHOR AUTHOR'S ORGANIZ ATION 11/24/2023 [facility] DATE CREATED AUTHOR AUTHOR'S ORGANIZ ATION 09/28/2024 [facility] DATE CREATED AUTHOR AUTHOR'S ORGANIZ ATION 12/21/2024 [facility] dical Specialists EPIC DATE CREATED AUTHOR AUTHOR'S ORGANIZ ATION 02/11/2025 [facility] REASON FOR VISIT (unrecogniz ed section [...] or prosecute any alcohol or drug abuse patient.[facility] HealthIn the event this information is protected by the Federal Confidentiality of Alcohol and Drug Abuse Patient Records regulations: The Federal rules restrict any use of the information to criminally investigate or prosecute any alcohol or drug abuse patient.[facility] HealthIn the event this information is protected by the Federal Confidentiality of Alcohol and Drug Abuse Patient Records regulations: The Federal rules restrict any use of the information to criminally investigate or prosecute any alcohol or drug abuse patient.[facility] HealthIn the event this information is protected by the Federal Confidentiality of Alcohol and Drug Abuse Patient Records regulations: The Federal rules restrict any use of the information to criminally investigate or prosecute any alcohol or drug abuse patient.[facility] FOR RECORDS PERTAINING TO PATIENTS WHO ARE [...] BE BASED ON THE PRIMARY CLINICAL RECORDS. [facility] [employer] [facility]. provides no warranty or guarantee of the accuracy or completeness of information in this document.
--- NOTE | 2025-02-21 15:35 | PM.CN ---
Consult Note: HPI Data of Consult Patient: known to practice within the last 3 years Requesting Physician: Day Fleming NP Primary Care Provider: JOSEPH MARK Consult Narrative Reason for consult: f/u Narrative: Kim Hill a pleasant 54 year old female presents to office for evaluation of chronic low back and bilateral sij injection, post lumbar fusion L4-5 L5-S1. Patient rating pain today 6/10 increasing to 10/10 with standing and activity. Patient finds mild to moderate benefit with norco 7.5-325mg TID PRN, gabapentin 600mg TID, baclofen 10mg BID, mobic 15mg daily without side effects. Pt has a hx of multilevel lumbar fusion 3 years ago but continues to have moderate to severe pain. recently underwent bialteral SIJ injection with significant ongoing relief, however she continues to endorse moderate to severe axial low back pain. cc:: CC: Day Fleming NP [facility] Medical History Asthma exacerbation ?J45.901 - Unspecified asthma with (acute) exacerbation (ICD-10) Influenza ?J11.1 - Influenza due to unidentified influenza virus with other respiratory manifestations (ICD-10) Pneumonia ?J18.9 - Pneumonia, unspecified organism (ICD-10) Obesity ?E66.9 - Obesity, unspecified (ICD-10) Osteoarthritis ?M19.90 - Unspecified osteoarthritis, unspecified site (ICD-10) Rheumatoid arthritis ?M06.9 - Rheumatoid arthritis, unspecified (ICD-10) Anxiety ?F41.9 - Anxiety disorder, unspecified (ICD-10) Acid reflux ?K21.9 - Gastro-esophageal reflux disease without esophagitis (ICD-10) Smoker ?F17.200 - Nicotine dependence, unspecified, uncomplicated (ICD-10) Asthma ?J45.909 - Unspecified asthma, uncomplicated (ICD-10) Heart murmur ?R01.1 - Cardiac murmur, unspecified (ICD-10) HTN (hypertension) ?I10 - Essential (primary) hypertension (ICD-10) Surgical History History of lymph node excision ?Z98.890 - Other specified postprocedural states (ICD-10) History of hysterectomy ?Z90.710 - Acquired absence of both cervix and uterus (ICD-10) History of lumbar fusion ?Z98.1 - Arthrodesis status (ICD-10) Family History Aunt Family history of cancer Mother Family history of diabetes mellitus Family history of hypertension Father Family history of diabetes mellitus Family history of hypertension Social History Within the past year, how often did you have a drink containing alcohol: never Score interpretation: A score less than 3 is consistent with normal alcohol consumption. 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 Highest level of school completed/degree received: GED or equivalent Are you now , , , , never or living with a partner: In a typical week, how many times do you talk on the telephone with family, friends, or neighbors: 3 or more times per week How often do you get together with friends or relatives: 3 or more times per week Little interest or pleasure in doing things: not at all Feeling down, depressed, or hopeless: not at all Feel stressed/tense/nervous/anxious/difficulty sleeping: not at all Do you think of yourself as: straight/heterosexual Gender Identity: female Meds Home Medications and Allergies Home Medications ?Medication ?Instructions ?Recorded ?Confirmed ?Type lisinopril 10 mg tablet 10 mg PO DAILY 11/12/22 02/05/25 History albuterol 90 mcg-budesonide 80 2 inh inhalation BID sob 04/27/24 02/05/25 History mcg/actuation HFA aerosol inhaler (Airsupra) montelukast 10 mg tablet 10 mg PO DAILY 04/27/24 02/05/25 History (Singulair) gabapentin 600 mg tablet 600 mg PO TID #90 tabs 07/11/24 02/05/25 Rx meloxicam 15 mg tablet 15 mg PO DAILY #30 tabs 07/11/24 02/05/25 Rx hydrocodone 7.5 mg-acetaminophen See Rx Instructions .Route 11/02/24 02/05/25 Rx 325 mg tablet .COMPLEX PRN pain #70 tabs baclofen 10 mg tablet 10 mg PO TID PRN muscle spasm #270 02/01/25 02/05/25 Rx tabs Allergies Allergy/AdvReac Type Severity Reaction Status Date / Time amoxicillin (From Augmentin) Allergy Unknown Rash Verified 02/05/25 11:48 clavulanic acid (From Allergy Unknown Rash Verified 02/05/25 11:48 Augmentin) Penicillins Allergy Unknown RASH Verified 02/05/25 11:48 Exam Constitutional Documenting provider has reviewed patient's vital signs: yes Common normals: no apparent distress, oriented x3, healthy appearing, alert and well nourished General appearance: cooperative HENMT Common normals: normocephalic, hearing grossly normal bilaterally and moist oral mucous membranes Head and scalp: normocephalic Eye Common normals: PERRL Pupil: PERRL Neck & C-Spine Common normals: full ROM General: normal visual inspection Chest Common normals: inspection of chest normal Respiratory Common normals: normal respiratory effort, no retractions and no use of accessory muscles Back & Pelvis Lumbar spine/lower back: ROM limited, pain with ROM, lumbar spinal tenderness Lumbar spinal tenderness location: L1, L2 and L3 and straight leg raise negative bilaterally Sacroiliac joints: SI joints normal Other: positive facet loading bilaterally strength 5/5 in BLE, sensation intact BLE Neuro Common normals: oriented x3 Sensorium/orientation: alert Psych Common normals: mental status grossly normal, thought process normal, cooperative, affect normal, speech normal and activity/motor behavior normal Speech: normal speech Thought process: normal thought process Results Additional Findings Additional findings: If on a controlled substance or opioids, I have checked an [place]AR[place] report on this patient and there are no aberrancies noted in the prescribing history.??If on a controlled substance or opioid a drug screen was completed and reviewed within the last year, and if there has not been a drug screen completed we ordered one today to monitor higher risk, state monitored pain medication use. As part of providing excellent, safe, comprehensive care, the following was completed at our patient's visit: 1. A medication reconciliation and review to ensure accurate knowledge of current/active medications, including asking our patients to inform us about any [id number]-[id number] medications or herbal remedies/nutritional supplements/alternative remedies. 2. A review to specifically ensure our patients have had annual screening for screening for depression, screening for tobacco use, and screening for unhealthy alcohol use. For concerning screenings had a discussion with the patient, provided patient education, and recommended follow-up with primary care provider when appropriate. If patient noted with a risk of falling, they received education on strength, gait, and balance training to prevent future risk of falling. Portions of this note may have been carried over from the previous visit and updated as appropriate. Please note this office utilizes paper charting in addition to the electronic medical record. A list of current medications, vitals, and PMH is available there as the clinical staff outside of myself do not have access to [employer] charting during the clinic day operations. As part of providing quality comprehensive care the current medications, vitals, and PMH were reviewed in the paper chart. Assessment and Plan Assessment and Plan (1) Lumbar spondylosis: (2) Sacroiliitis: (3) Lumbar stenosis with neurogenic claudication: (4) Failed back syndrome: (5) Chronic prescription opiate use: Plan The patient has had over 3 months of moderate to severe low back pain with functional impairment and inadequate response to conservative care including NSAIDS (unless there are contraindication such as concurrent blood thinners), multiple oral or topical pain medications, and home exercise program/physical therapy.? Patient has completed >6 weeks of guided home exercise program and/or formal physical therapy program without relief of their symptoms.? I have reviewed the imaging of the lumbar spine and no red flags were identified.? The Oswestry Disability Index was completed, and the patient scored a 58%.? bilateral L2-3 L3-4 facet medial branch block x2 for facet mediated low back pain in consideration of RFA continue HEP as tolerated continue current medications update UDS today f/u after each injection
== END 2025-02-21 15:11 | disposition home or self-care (01) ==
LOC: PM 15:10
PROVIDERS: PCP Nurse Practitioner Family; Visit Provider Nurse Practitioner
DX: M47.816 Spondylosis without myelopathy or radiculopathy, lumbar region (principal); M46.1 Sacroiliitis, not elsewhere classified; M48.062 Spinal stenosis, lumbar region with neurogenic claudication; M96.1 Postlaminectomy syndrome, not elsewhere classified; Z79.891 Long term (current) use of opiate analgesic
CPT/HCPCS: G0463

== ENCOUNTER 2025-03-02 07:34 | Outpatient (OUT) | payer BC, SELFPAY ==
--- OUTSIDE RECORDS SUMMARY | 2025-03-02 07:38 | XMS_ITS | CCD ---
Author Organization [facility] Care Team Providers Care Oven Loader Name Role Phone Roberto Roth Primary Care Provider Justice Cruz Attending Provider DO Roberto Roth Primary Care Provider MD Hood Rausch Attending Provider DO Roberto Roth Primary Care Provider [phone] CALVIN Mark Attending Provider MD Paresh Tian Attending Provider RothDO Roberto oliva Primary Care Provider CALVIN Mark Attending Provider MD Paresh Tian Attending Provider MD Gina Guerrero Attending Provider [phone] Gina Guerrero Unavailable SHE ., DR HOOD [...] ROTH, DR ROBERTO Bhakta Primary Care Unavailable COWLEY, DR DASHA Gomez Consulting Unavailable SINGH ., [...] Guerrero Admitting Unavailable Aimee ORTIZ, Aby Unavailable [phone] LOS SARMIENTO Attending Unavailable ABY MARK Referring Unavailable LOS SARMIENTO Attending Unavailable ABY MARK Referring Unavailable LOS SARMIENTO Attending Unavailable Osvaldo Browne MD Primary Care Provider [phone] JACKY BRANDON Attending Unavailable Giedraitis , Andtawanda Musa Attending Unavailable Giedraitis , Andrius Dimple Attending Unavailable Giedraitis , Andrius Vytautrain Attending Unavailable Giedraitis MD, Andrius Vytautas Attending Unavailable Unavailable Unavailable Unavailable Allergies Allergy Classification Reported Allergen(s) Allergy Type Date of Onset Reaction(s) Facility (6 sources) Amoxicillin; Translations: [amoxicillin] Drug Allergy 05-14-20 [facility] (11 sources) Penicillins; Translations: [Penicillins] Propensity to adverse reactions 07-24-19 14 Rash, Diarrhea [facility] (6 sources) clavulanic acid; Translations: [clavulanic acid] Propensity to adverse reactions 05-14-20 [address] [facility] (3 sources) Amoxicillin / Clavulanate; Translations: [Augmentin] Drug Allergy 07-24-19 14 Unknown [facility] (2 sources) Azithromycin Drug Allergy diarrhea [facility] Other (8 sources) Penicillin G Drug Allergy 12-20-19 25 Rash [facility] Other (6 sources) Amoxicillin-Pot Clavulanate Drug Allergy 12-17-19 24 Diarrhea [facility] Medications Current Medications Medication Drug Class(es) Dates Sig (Normalized) Sig (Original) acetaminophen 500 mg oral tablet (4 sources) Start: 05-31-2020 take 500 mg by mouth every four hours Acetaminophen Active 500 MG PO Q4H 100 May 31, 2020 1:00am acetaminophen 325 mg / HYDROcodone bitartrate 7.5 mg oral tablet (16 sources) Opioid Agonist Start: 12-08-2024 take 1 tablet by mouth three times daily as needed for pain HYDROcodone-acetami nophen ([place]) 7.5-325 MG tablet TAKE ONE TABLET BY MOUTH THREE TIMES A DAY NEEDED FOR PAIN. MUST LAST 30 DAYS 12/08/2024 Active Start: 03-18-2019 End: 05-23-2020 take 1 tablet by mouth three times daily Hydrocodone-Acetaminophen ([place]) 5-325 mg Tablet Discontinued 1 TAB PO Three times daily March 18, 2019 12:00am May 23, 2020 4:59pm take 7.5 mg by mouth three times daily hydrocodone/acetaminophen (NORCO ORAL) T francie 7.5 mg by mouth three times a day. Active [place] Active [id number] 200 actuat albuterol 0.09 mg/actuat metered dose inhaler (20 sources) beta2-Adrenergic Agonist Start: 11-25-2024 take 2 [...] / ipratropium bromide 0.167 mg/ml inhalation solution (10 sources) Anticholinergic, beta2-Adrenergic Agonist Start: 05-04-2024 ipratropium-albuterol [...] 30 Active baclofen 10 mg oral tablet (9 sources) gamma-Aminobuty gabriela Acid-ergic Agonist take 1 [...] Active cetirizine hydrochloride 10 mg oral tablet (6 sources) Histamine-1 Receptor Antagonist Start: End: take 1 tablet by mouth once daily as needed cetirizine (ZyrTEC) 10 MG tablet Indications: Chronic maxillary sinusitis Take 1 tablet (10 mg) by mouth Daily as needed for allergies 90 tablet 3 12/19/2024 12/19/2025 Active fluticasone propionate 0.05 mg/actuat metered dose nasal spray (6 sources) Corticosteroid Start: fluticasone (Flonase) 50 MCG/ACT [...] daily. Active gabapentin 300 mg oral capsule (20 sources) Anti-epileptic Agent Start: take 600 mg by mouth three times daily Gabapentin Active 600 MG PO Three times daily 0 May 31, 2020 1:00am Start: 03-18-2019 End: 06-01-2020 take 600 mg by mouth three times daily Gabapentin Discontinued 600 MG PO Three times daily March 18, 2019 12:00am June 01, 2020 10:48am lisinopril 10 mg oral tablet (20 sources) Angiotensin Converting Enzyme Inhibitor Start: 05-14-2020 End: 06-01-2020 take 10 mg by mouth once daily Lisinopril Active 10 MG PO Daily May 31, 2020 1:00am meloxicam 15 mg oral tablet (11 sources) Nonsteroidal Anti-inflammatory Drug take 1 tablet by mouth once daily meloxicam (Mobic) 15 MG tablet Take 15 mg by mouth Daily Active montelukast 10 mg oral tablet (9 sources) Leukotriene Receptor Antagonist take 1 tablet [...] pantoprazole 40 mg delayed release oral tablet (11 sources) Proton Pump Inhibitor take 1 tablet [...] milk Trelegy Ellipta 200-62.5-25 MCG/ACT aerosol powder (6 sources) Start: 10-04-2024 take 1 puff(s) by inhalation once daily Trelegy Ellipta 200-62.5-25 MCG/ACT aerosol powder INHALE 1 PUFF BY INHALATION ROUTE ONCE DAILY AT THE SAME TIME EACH DAY 10/04/2024 Active vitamin b12 0.5 mg sublingual tablet (6 sources) Vitamin B12 Cyanocobalamin ( B-12) [address] under the tongue Active Zinc Sulfate (6 sources) Zinc Sulfate (ZI NC 15 PO) [...] Date Documented Date Episodic/Chronic Acquired foot deformities (7 sources) Acquired left hallux valgus; Translations: [Hallux [...] chemistry] 05-24-2020 Episodic Other upper respiratory infections (4 sources) Chronic maxillary sinusitis; Translations: [Chronic maxillary [...] Range Facility CT SINUS WO CONon 02-16-2025 [place] [address] CT Scan Report Signed Patient: KIM HILL MR#: [id number] : 1970 Acct:[id number] Age/Sex: 54 / F ADM Date: 02/15/25 Loc: CT Attending Dr: Jacky Brandon M.D. Ordering Physician: Jacky Brandon M.D. Date of Service: 02/15/25 Procedure(s): CT sinus wo con Accession Number(s): [id number] cc: ABY MARK [place] [address] Patient Name: KIM HILL MRN: [id number] date: 1970 Sex: F Assigned Patient Location: CT Current Patient Location: Accession/Order Number: [id number] Exam Date: 02/15/2025 15:20 Report Date: 02/16/2025 [...] Mckee M.D. 02/16/2025 8:13 AM Dictation Location: [place] [address] Electronically authenticated by: [id number] Y Date: 02/16/2025 08:13 Dictated By: Shalonda Mckee M.D. Signed By: 02/16/25815 DD/ 2 TD/TT: Die Technician: [facility] Radiology, Radiologi MD alverto - 02/16/2025 [place] [address] CT Scan Report Signed Patient: KIM HILL MR#: [id number] : 1970 Acct:[id number] Age/Sex: 54 / F ADM Date: 02/15/25 Loc: CT Attending Dr: Jacky Brandon M.D. Ordering Physician: Jacky Brandon M.D. Date of Service: 02/15/25 Procedure(s): CT sinus wo con Accession Number(s): [id number] cc: ABY MARK [place] [address] Patient Name: KIM HILL MRN: [facility]:[id number] date: 1970 Sex: F Assigned Patient Location: CT Current Patient Location: Accession/Order Number: [id number] Exam Date: 02/15/2025 15:20 Report Date: 02/16/2025 [...] Mckee M.D. 02/16/2025 8:13 AM Dictation Location: [place] [address] Electronically authenticated by: [id number] Y Date: 02/16/2025 08:13 Dictated By: Shalonda Mckee M.D. Signed By: 02/16/25 0816 DD/ 2 TD/TT: Die Technician: [facility] Radiology Study observation (narrative) [facility] CT SINUS WO CONOrdered By: Rose adiologmadison Radiology on 02-16-2025 [facility] Work Phone: Ranjit 06-22-2024 ZAHRAA Telephone (TIERRAQ) KIM HILL ([id number]) 1970 F Date Time Provider Department 06/22/24 [...] drop [M21.371] Order(s):CT LUMBAR SPINE WO IVCON [8675362] Order #: [id number] FUTURE EMG(NEURO/NI) [[id number]] Order #: [id number]: 1 FUTURE XR LUMBAR MOTION 4V AP/LAT/ FLEX/EXT [[id number]] Order #: [id number] FUTURE Prescriptions as of 06/23/2024 - gabapentin [...] mg by mouth daily at bedtime. - qgmuelfrjeq-jgfwecpaa-j ilanter (TRELEGY ELLIPTA) 100-62.5-25 mcg inhalation powder [...] Status:Closed by KENAN GODOY on 06/23/24 Normal [facility] CNOVon 06-09-2024 CNOV Office Visit (SPNSMN ) KIM HILL ([id number]) 1970 F Date Time Provider Department 06/09/24 4:00 PM LOS SARMIENTO NSMS During your visit today, we recorded the following information about you: Pulse Blood pressure Weight Height 92/minute 104/52 98 kg 1.6 m Los Sarmiento MD 06/16/2024 5:55 PM Signed Rescheduled, no charge Referring Provider: ABY MARK [[id number]] Allergies As of Date: 06/09/2024 Noted Allergy [...] mg by mouth daily at bedtime. - qvrkzbuhthq-saenqxjig-t ilanter (TRELEGY ELLIPTA) 100-62.5-25 mcg inhalation powder [...] Status:Closed by LOS SARMIENTO on 06/16/24 Normal [facility] MRI Lumbar Spine w/o + [...] by Justice Lucas on 07/31/2022 0915 Normal [facility] Personnel Consultant Automated erythrocytes count in urine sediment (number/area)Ordered By: Paresh Tian on 07-16-2022 RBC Auto (Urine sed) [#/Area] 1-2 [HPF] 0-[address] [facility] Automated leukocytes count i n urine sediment (number/area)Ordered By: Paresh Tian on 07-16-2022 WBC Auto (Urine sed) [#/Area] 20-49 [HPF] 0-[address] [facility] Basophils Auto (Bld) [#/Vol] Ordered By: Paresh Tian on 07-16-2022 Basophils (Bld) [#/Vol] 0.0 10*3/uL 0.0-0.[address] [facility] Basophils/100 WBC Auto (Bld) Ordered By: Paresh Tian on 07-16-2022 Basophils/100 WBC (Bld) 0.4 % . [facility] Bilirubin Test strip Ql (U)O rdered By: Paresh Tian on 07-16-2022 Bilirubin Ql (U) Negative Negative [facility] C reactive protein [Mass/vol ume] in Serum or PlasmaOrdered By: Paresh Tian on 07-16-2022 CRP [Mass/Vol] 0.8 mg/dL 0.0-1.[address] [facility] Color Auto (U)Ordered By: Afia Tian on 07-16-2022 Color (U) Yellow Yellow [facility] Creatinine and Glomerular fi ltration rate.predicted panel (S/P/Bld)Ordered By: Paresh Tian on 07-16-2022 Creatinine [Mass/Vol] 0.74 mg/dL 0.44-1.03 [facility] Eosinophils Auto (Bld) [#/Vo l]Ordered By: Paresh Tian on 07-16-2022 Eosinophils (Bld) [#/Vol] 0.1 10*3/uL 0.0-0.[address] [facility] Eosinophils/100 WBC Auto (Bl d)Ordered By: Paresh Tian on 07-16-2022 Eosinophils/100 WBC (Bld) 1.1 % . [facility] Erythrocyte distribution wid th Auto (RBC) [Ratio]Ordered By: Paresh Tian on 07-16-2022 Erythrocyte distribution width (RBC) [Ratio] 13.0 % 11.9-15.[address] [facility] Erythrocyte sedimentation ra te by Photometric methodOrdered By: Paresh Tian on 07-16-2022 ESR Photometric method (Bld) [Velocity] 45 mm/hr 0-[address] [facility] Estimated glomerular filtrat ion rate (GFR) non- AmericanOrdered By: Paresh Tian on 07-16-2022 GFR/1.73 sq M.predicted among non-blacks MDRD (S/P/Bld) [Vol rate/Area] > 60 mL/Min [facility] Hematocrit Auto (Bld) [Volum e fraction]Ordered By: Paresh Tian on 07-16-2022 Hematocrit (Bld) [Volume fraction] 45.3 % 34.0-46.[address] [facility] Hemoglobin [Mass/volume] in BloodOrdered By: Paresh Tian on 07-16-2022 Hemoglobin (Bld) [Mass/Vol] 15.2 g/dL 11.8-15.[address] [facility] Ketones Auto test strip (U) [Mass/Vol]Ordered By: Paresh Tian on 07-16-2022 Ketones (U) [Mass/Vol] Negative Negative [facility] - UrinalysisOrder ed By: Paresh Tian on 07-16-2022 Hyaline casts LM Ql (Urine sed) 0-8 [LPF] 0-[address] [facility] Leukocytes [#/volume] correc scot for nucleated erythrocytes in Blood by Automated counOrdered By: Paresh Tian on 07-16-2022 WBC corrected for nucl RBC Auto (Bld) [#/Vol] 10.4 10*3/uL 3.8-11.[address] [facility] Lymphocytes Auto (Bld) [#/Vo l]Ordered By: Paresh Tian on 07-16-2022 Lymphocytes (Bld) [#/Vol] 3.7 10*3/uL 1.00-4.[address] [facility] Lymphocytes/100 WBC Auto (Bl d)Ordered By: Paresh Tian on 07-16-2022 Lymphocytes/100 WBC (Bld) 35.0 % . [facility] MCH Auto (RBC) [Entitic mass ]Ordered By: Paresh Tian on 07-16-2022 MCH (RBC) [Entitic mass] 33.8 pg 24.7-34.[address] [facility] MCHC Auto (RBC) [Mass/Vol]Or dered By: Paresh Tian on 07-16-2022 MCHC (RBC) [Mass/Vol] 33.6 g/dL 32.0-35.0 [facility] MCV Auto (RBC) [Entitic vol] Ordered By: Paresh Tian on 07-16-2022 MCV (RBC) [Entitic vol] 100.6 fL 80-100 [facility] Mitotic spindle apparatus Ab [Titer] in Serum or Plasma by ImmunofluorescenceOrdered By: Paresh Tian on 07-16-2022 Mitotic spindle apparatus Ab IF [Titer] 1:[address] [facility] Comment on above: ICAP nomenclature: A C-25,26 Monocytes Auto (Bld) [#/Vol] Ordered By: Paresh Tian on 07-16-2022 Monocytes (Bld) [#/Vol] 0.7 10*3/uL 0.0-0.[address] [facility] Monocytes/100 WBC Auto (Bld) Ordered By: Paresh Tian on 07-16-2022 Monocytes/100 WBC (Bld) 6.8 % . [facility] Neutrophils Auto (Bld) [#/Vo l]Ordered By: Paresh Tian on 07-16-2022 Neutrophils (Bld) [#/Vol] 5.9 10*3/uL 1.8-7.[address] [facility] Neutrophils/100 WBC Auto (Bl d)Ordered By: Paresh Tian on 07-16-2022 Neutrophils/100 WBC (Bld) 56.7 % . [facility] Nitrite Test strip Ql (U)Ord ered By: Paresh Tian on 07-16-2022 Nitrite Ql (U) Negative Negative [facility] No Panel InformationOrdered By: Paresh Tian on 07-16-2022 Anti-Nuclear Antibody Comment 2 See comment . [facility] Comment on above: For more information [...] titers Nucleosomes, Histones Drug-induced SLE Speckled Sm, PRIMARY MILL ROLLER, SCL-70, SLE,MCTD,PSS (diffuse form), SS-A/SS-B Sjogrens Nucleolar SCL-70, PM-1/SCL High titers Scleroderma, PM/DM Centromere Centromere PSS (limited form) w/Crest syndrome variable Nuclear Dot Sp100,[id number] Primary Biliary Cirrhosis Nuclear GP210, Primary Biliary CirrhosisMembrane kailyn A,B,C Performed at: [facility] [id number] Director: Collin Rodriguez PhD, Phone: [phone] Estimated GFR () > 60 mL/Min [facility] Comment on above: GFR estimated refere nce range: According to KDOQI guidelines, <60 ml/min/1.73m2 is sufficient to diagnose a patient with chronic kidney disease. Pharmacy Creatinine Clearance (Chem N/A [facility] Total Complement (CH50) >60 U/mL >41 [facility] Comment on above: Age Male Female [...] to determine out of range values.Performed at: [facility] [id number] Director: Collin Rodriguez PhD, Phone: [phone] Nucleated erythrocytes [Pres ence] in Blood by Automated countOrdered By: Paresh Tian on 07-16-2022 Nucleated RBC Auto Ql (Bld) 0.1 /100{WBC} 0-0.[address] [facility] Platelet mean volume Auto (B ld) [Entitic vol]Ordered By: Paresh Tian on 07-16-2022 Platelet mean volume (Bld) [Entitic vol] 8.4 fL 6.3-10.[address] [facility] Platelets Auto (Bld) [#/Vol] Ordered By: Paresh Tian on 07-16-2022 Platelets (Bld) [#/Vol] 242 10*3/uL 150-[address] [facility] Protein Auto test strip (U) [Mass/Vol]Ordered By: Paresh Tian on 07-16-2022 Protein (U) [Mass/Vol] Negative Negative [facility] RBC Auto (Bld) [#/Vol]Ordere d By: Paresh Tian on 07-16-2022 RBC (Bld) [#/Vol] 4.50 10*6/uL 3.60-5.00 [facility] Serum homogeneous pattern an tinuclear antibody (ASTER) titerOrdered By: Paresh Tian on 07-16-2022 Homogenous nuclear Ab pattern (S) [Titer] N/A [facility] Serum nuclear antibody titer Ordered By: Paresh Tian on 07-16-2022 Nuclear Ab (S) [Titer] Positive . [facility] Comment on above: Negative <1:80 Borde rline 1:80 Positive >1:80 Serum or plasma complement C 3 measurement (mass/volume)Ordered By: Paresh Tian on 07-16-2022 Complement C3 [Mass/Vol] 197 mg/dL 82-[address] [facility] Comment on above: Performed at: [address] Director: Collin Rodriguez PhD, Phone: [phone] Serum or plasma complement C 4 measurement (mass/volume)Ordered By: Paresh Tian on 07-16-2022 Complement C4 [Mass/Vol] 42 mg/dL 12-[address] [facility] Specific gravity Auto test s trip (U) [Rel density]Ordered By: Paresh Tian on 07-16-2022 Specific gravity (U) [Rel density] 1.018 1.001-1.[address] [facility] Squamous epithelial cells de tection in urine sediment by light microscopyOrdered By: Paresh Tian on 07-16-2022 Epithelial cells.squamous LM Ql (Urine sed) 0-1 [HPF] 0-[address] [facility] Urine bacteria detection by automated methodOrdered By: Paresh Tian on 07-16-2022 Bacteria Auto Ql (U) 4+ None Seen [facility] Urine clarity by refractomet ry automatedOrdered By: Paresh Tian on 07-16-2022 Clarity Refractometry automated (U) Clear Clear [facility] Urine culture routineOrdered By: Paresh Tian on 07-16-2022 Bacteria identified Cx Nom (U) Escherichia coli [facility] Urine glucose measurement by automated test strip (mass/volume)Ordered By: Paresh Tian on 07-16-2022 Glucose Auto test strip (U) [Mass/Vol] Normal mg/dL Normal [facility] Urine hemoglobin detection b y automated test stripOrdered By: Paresh Tian on 07-16-2022 Hemoglobin Auto test strip Ql (U) Negative Negative [facility] Urine leukocyte esterase det ection by automated test stripOrdered By: Paresh Tian on 07-16-2022 Leukocyte esterase Auto test strip Ql (U) 3+ Negative [facility] Urobilinogen Auto test strip (U) [Mass/Vol]Ordered By: Paresh Weeksbetzaida on 07-16-2022 Urobilinogen (U) [Mass/Vol] Normal mg/dL Normal [facility] WBC Auto (Bld) [#/Vol]Ordere d By: Paresh Tian on 07-16-2022 WBC (Bld) [#/Vol] 10.4 10*3/uL 3.8-11.6 [facility] pH Auto test strip (U)Ordere d By: Paresh Tian on 07-16-2022 pH (U) 6.5 [pH] 5.0-9.[address] [facility] XR HIPS ZEINA 3_4V WO PELVISon [...] DASHA KHAN Date: 2022-05-15 07:49 Normal [facility] Covid-19 PCR (CVDTB)on SARS-CoV-2 (COVID-19) RNA AMBERLY+probe Ql (Unsp spec) Not detected Normal NOT DETECTED [facility] Comment on above: Result Comment: This test is not yet approved or cleared by the [place] FDA. When there are no FDA-approved or cleared tests available, and other criteria are met, FDA can make tests available under an emergency access mechanism called an Emergency Use Authorization (EUA). The EUA for this test is supported by the Certified Dental Assistant of Health and Human Service's (HHS's) declaration [...] SARS-CoV-2. Performed By: #### C VDTB #### [facility] [address] [place] [address] [address] Narendra Jacobsen COVID-19 Positive/NegativeOr dered By: Baljinder Rausch on 01-31-2022 SARS-CoV-2 (COVID-19) N gene AMBERLY+probe Ql (Resp) Negative Negative [facility] Comment on above: Testing for SARS-CoV -2 by RT-PCR This test was developed and its performance characteristics determined by [employer] (ad[employer]) and validated at the [facility]. This test has not been FDA [...] COVID-19 Positive/Negativeon 05-20-2020 COVID-19 Positive/Negative Negative Negative [facility] Comment on above: Testing for SARS-CoV -2 by RT-PCRThis test was developed and its performance characteristics determined by [employer] (BD) and validated at the [facility]. This test has not been FDA [...] Otheron 05-20-2020 Coronavirus 2019 PCR Interp N/A [facility] Automated basophil %on 05-14 Basophils/100 WBC (Bld) 0.5 % F [facility] Automated basophil counton 1 07-15-2019 Basophils (Bld) [#/Vol] 0.0 10*3/uL 0.0-0.2 [facility] Automated blood lymphocyte c ount (number/volume)on 05-14-2020 Lymphocytes (Bld) [#/Vol] 2.8 10*3/uL 1.00-4.8 [facility] Automated blood lymphocyte c ount as percentage of total leukocyteson 05-14-2020 Lymphocytes/100 WBC (Bld) 35.0 % [facility] Automated blood monocyte cou nton 05-14-2020 Monocytes (Bld) [#/Vol] 0.6 10*3/uL 0.0-0.8 [facility] Automated blood platelet cou nt (count/volume)on 05-14-2020 Platelets (Bld) [#/Vol] 225 10*3/uL 150-450 [facility] Automated blood platelet jose n volume measurementon 05-14-2020 Platelet mean volume (Bld) [Entitic vol] 8.2 fL 6.3-10.7 [facility] Automated eosinophil %on Eosinophils/100 WBC (Bld) 1.5 % [facility] Automated eosinophil counton 05-14-2020 Eosinophils (Bld) [#/Vol] 0.1 10*3/uL 0.0-0.45 [facility] Automated erythrocyte distri bution width ratioon 05-14-2020 Erythrocyte distribution width (RBC) [Ratio] 12.3 % 11.9-15.3 [facility] Automated erythrocyte mean c orpuscular hemoglobin (mass per erythrocyte)on 05-14-2020 MCH (RBC) [Entitic mass] 35.2 pg 24.7-34.3 [facility] Automated erythrocyte mean c orpuscular hemoglobin concentration measurement (mass/volon 05-14-2020 MCHC (RBC) [Mass/Vol] 34.2 g/dL 32.0-35.0 [facility] Automated erythrocyte mean c orpuscular volumeon 05-14-2020 MCV (RBC) [Entitic vol] 102.9 fL 80-100 F [facility] Automated monocyte %on 05-14 Monocytes/100 WBC (Bld) 7.0 % F [facility] Automated neutrophil %on Neutrophils/100 WBC (Bld) 56.0 % [facility] Blood erythrocytes automated count (number/volume)on 05-14-2020 RBC (Bld) [#/Vol] 4.08 10*6/uL 3.60-5.00 [facility] Blood hemoglobin measurement (mass/volume)on 05-14-2020 Hemoglobin (Bld) [Mass/Vol] 14.3 g/dL 11.8-15.4 [facility] Blood leukocytes automated c ount (number/volume)on 05-14-2020 WBC (Bld) [#/Vol] 7.9 10*3/uL 4.5-11.0 [facility] Blood neutrophil count by au tomated method (number/volume)on 05-14-2020 Neutrophils (Bld) [#/Vol] 4.4 10*3/uL 1.8-7.7 [facility] Estimated glomerular filtrat ion rate (GFR) non- Americanon 05-14-2020 GFR/1.73 sq M predicted among non-blacks MDRD (S/P/Bld) [Vol rate/Area] mL/min/{1.73_m2} [facility] Hematocrit [Volume Fraction] of Blood by Automated counton 05-14-2020 Hematocrit (Bld) [Volume fraction] 41.9 % 34.0-46.4 [facility] Otheron 05-14-2020 GFR/1.73 sq M.predicted MDRD (S/P/Bld) [Vol rate/Area] mL/min/{1.73_m2} [facility] Comment on above: GFR estimated refere nce range: According to KDOQI guidelines, <60 ml/min/1.73m2 is sufficient to diagnose a patient with chronic kidney disease. Nucleated RBC/100 WBC (Bld) [Ratio] 0.1 % 0-0.5 [facility] Pharmacy Creatinine Clearance (Chem N/A [facility] Serum or plasma calcium octavio urement (mass/volume)on 05-14-2020 Calcium [Mass/Vol] 10.1 mg/dL 8.2-10.2 [facility] Serum or plasma chloride jose surement (moles/volume)on 05-14-2020 Chloride [Moles/Vol] 101 mmol/L 95-114 [facility] Serum or plasma creatinine m easurement with calculation of estimated glomerular filtron 05-14-2020 Creatinine [Mass/Vol] 0.60 mg/dL 0.44-1.03 [facility] Serum or plasma glucose octavio urement (mass/volume)on 05-14-2020 Glucose [Mass/Vol] 94 mg/dL 70-100 [facility] Comment on above: ADA recommended refe rence rangeRandom Glucose Reference Range is dependent on time and content of last meal. Glucose of more than 200 mg/dL in a nonstressed, ambulatory subject supports the diagnosis of Diabetes Mellitus. Serum or plasma potassium me asurement (moles/volume)on 05-14-2020 Potassium [Moles/Vol] 4.3 mmol/L 3.5-5.1 [facility] Serum or plasma sodium measu rement (moles/volume)on 05-14-2020 Sodium [Moles/Vol] 140 mmol/L 136-146 [facility] Serum or plasma total carbon dioxide measurement (moles/volume)on 05-14-2020 CO2 [Moles/Vol] 27.2 mmol/L 22.0-30.0 [facility] Serum or plasma urea nitroge n measurement (mass/volume)on 05-14-2020 Urea nitrogen [Mass/Vol] 7 mg/dL 9-23 [facility] Vital Signs Date Time Vital Sign Value Performing Clinician Facility 02-26-2025 15:08-0400 Body height 160 cm Jacky Brandon MD Work Phone: [facility] 02-26-2025 15:08-0400 Body mass index (BMI) [Ratio] 37.91 kg/m2 Jacky Brandon MD Work Phone: [facility] 02-26-2025 15:08-0400 Body weight 97.07 kg Jacky Brandon MD Work Phone: [facility] 02-26-2025 15:08-0400 Diastolic blood pressure 63 mm[Hg] Jacky Brandon MD Work Phone: [facility] 02-26-2025 15:08-0400 Heart rate 109 /min Jacky Brandon MD Work Phone: [facility] 02-26-2025 15:08-0400 Systolic blood pressure 85 mm[Hg] Jacky Brandon MD Work Phone: [facility] 12-19-2024 15:03-0400 Body height 160 cm Jacky Brandon MD Work Phone: [facility] 12-19-2024 15:03-0400 Body mass index (BMI) [Ratio] 41.1 kg/m2 Jacky Brandon MD Work Phone: [facility] 12-19-2024 15:03-0400 Body weight 105.23 kg Jacky Brandon MD Work Phone: [facility] 12-19-2024 15:03-0400 Diastolic blood pressure 69 mm[Hg] Jacky Brandon MD Work Phone: [facility] 12-19-2024 15:03-0400 Heart rate 96 /min Jacky Brandon MD Work Phone: [facility] 12-19-2024 15:03-0400 Systolic blood pressure 115 mm[Hg] Jacky Brandon MD Work Phone: [facility] 09-26-2024 14:59-0400 Body height 160 cm Los Sarmiento MD Work Phone: [facility] 09-26-2024 14:59-0400 Body mass index (BMI) [Ratio] 38.14 kg/m2 Los Sarmiento MD Work Phone: [facility] 09-26-2024 14:59-0400 Body weight 97.65 kg Los Sarmiento MD Work Phone: [facility] 09-26-2024 14:59-0400 Diastolic blood pressure 95 mm[Hg] Los Sarmiento MD Work Phone: [facility] 09-26-2024 14:59-0400 Heart rate 96 /min Los Sarmiento MD Work Phone: [facility] 09-26-2024 14:59-0400 Respiratory rate 16 /min Los Sarmiento MD Work Phone: [facility] 09-26-2024 14:59-0400 SaO2% (BldA) [Mass fraction] 98 % Los Sarmiento MD Work Phone: [facility] 09-26-2024 14:59-0400 Systolic blood pressure 155 mm[Hg] Los Sarmiento MD Work Phone: [facility] 08-17-2022 16:00-0400 Body height 160.02 cm Gina Blades Other [email or web address] Other 08-17-2022 16:00-0400 Body mass index (BMI) [Ratio] 40.56 kg/m2 Gina Blades Other [email or web address] Other 08-17-2022 16:00-0400 Body weight 103.87 kg Gina Blades Other [email or web address] Other 08-17-2022 16:00-0400 Diastolic blood pressure 82 mm[Hg] Gina Blades Other [email or web address] Other 08-17-2022 16:00-0400 Systolic blood pressure 126 mm[Hg] Gina Guerrero Other [facility] Other Encounters Encounter Date Encounter Type Care Provider Facility Start: 02-26-2025 End: 02-26-2025 Office outpatient visit 40 minutes Jacky Brandon MD Work Phone: [facility] [place] [facility] Comment on above: Chronic maxillary si nusitis (Primary Dx) Start: 02-26-2025 End: 02-26-2025 Bamboo flowsleon Brandon MD Work Phone: [facility] [place] [facility] Start: 02-26-2025 End: 02-26-2025 Bamboo flowsleon Brandon MD Work Phone: [facility] [place] [facility] Start: 02-16-2025 End: 02-16-2025 Clinisync Result Encounter Jacky Brandon MD Work Phone: [facility] Unsolicited Start: 02-16-2025 End: 02-16-2025 Clinisync Result Encounter Jacky Brandon MD Work Phone: [facility] Unsolicited Start: 02-05-2025 End: 02-05-2025 ambulatory Aaron Mosqueda MD Facility:[facility] Start: 12-19-2024 End: 12-19-2024 Office outpatient new 45 minutes Jacky Brandon MD Work Phone: [facility] [...] procedure Los Sarmiento MD Work Phone: [facility] Comment on above: Spinal stenosis of c ervical region (Primary Dx); Lumbar radiculopathy; Adhesive arachnoiditis (HCC) Start: 09-26-2024 ambulatory LOS Rob ity:[facility] Start: 08-28-2024 End: 08-28-2024 ambulatory Aaron Mosqueda MD Facility[facility] Start: 06-22-2024 End: 06-23-2024 Telephone encounter Los Sarmiento MD Work Phone: Neurology Comment on above: Orders Start: 06-16-2024 End: 06-16-2024 ambulatory Los Sarmiento MD Work Phone: [facility] Comment on above: Lumbar radiculopathy (Primary Dx) Start: 06-16-2024 End: 06-16-2024 Telemedicine consultation with patient Los Sarmiento MD Work Phone: [facility] Start: 06-09-2024 ambulatory ABY MARK Fac ility:[facility] Start: 04-24-2024 End: 04-24-2024 ambulatory Aaron [...] 09-08-2022 ambulatory Gina Blades Other [facility] Other Start: 09-08-2022 Telephone encounter Gina Blades F [facility] Start: 09-01-2022 End: 09-02-2022 ambulatory NARENDRANCHANTELLE LAKBARRINGTONMIPATHY . Facility:[facility] Start: 08-17-2022 End: 08-17-2022 Patient encounter procedure DO Roberto Roth Work Phone: [facility] [address] [place] Work Phone: Start: 08-17-2022 End: 08-17-2022 ambulatory DO Roberto Roth Work Phone: [facility] Work Phone: Start: 08-17-2022 Office outpatient ne w 45 minutes Gina Blades F[facility] Start: 07-16-2022 End: 07-17-2022 ambulatory DO Roberto Roth Work Phone: [facility] Work Phone: Start: 07-16-2022 End: 07-16-2022 Patient encounter procedure DO Roberto Roth Work Phone: [facility] [address] Work Phone: Start: 07-03-2022 End: 07-03-2022 ambulatory DO Roberto Roth Work Phone: [facility] Work Phone: Start: 07-03-2022 End: 07-03-2022 Patient encounter procedure DO Roberto Roth Work Phone: [facility] [place] Work Phone: Start: 06-23-2022 End: 06-23-[address] OHOD RAUSCH . Facility:[facility] Start: 05-29-2022 End: 05-30-[address] HOOD RAUSCH . Facility:[facility] Start: 05-14-2022 End: 05-15-2022 ambulatory ADA SINGH . Facility:[facility] Start: 03-12-2022 End: 03-13-[address] HOOD RAUSCH . Facility:[facility] Start: 02-13-2022 Encounter for preprocedural laboratory examination DR HOOD RAUSCH . [facility] Start: 02-10-2022 End: 02-10-[address] HOOD RAUSCH . Facility:[facility] Start: 02-06-2022 End: 02-07-[address] HOOD RAUSCH . Facility:[facility] Start: 02-06-2022 End: 02-07-2022 Encounter for preprocedural laboratory examination DR HOOD RAUSCH . Facility:[facility] Start: 02-03-2022 End: 02-03-[address] HOOD RAUSCH . Facility:[facility] Start: 01-31-2022 End: 01-31-2022 Patient encounter procedure DO Roberto Roth Work Phone: [facility] COVID [facility] Start: 01-16-[address] HOOD RAUSCH . Faci lity:[facility] Start: 01-07-2022 End: 01-08-[address] HOOD RAUSCH . Facility:[facility] Start: 05-20-2020 End: 05-20-2020 Patient encounter procedure Roberto Roth -Pre-Surgical Testing Start: 05-14-2020 End: 05-14-2020 Patient encounter procedure Roberto Hannahe -Pre-Surgical Testing Start: 04-26-2020 End: 04-26-2020 Patient encounter procedure Roberto Roth -[facility] [place] Procedures Date Procedure Procedure Detail Performing Clinician [...] Start: 02-26-2025 End: 02-26-2025 Patient encounter procedure [facility] Comment on above: Arrived Start: 01-29-2025 Influenza vaccination C [facility] Start: 01-23-2025 End: 01-23-2025 Patient encounter procedure 01/23/2025 3:20 PM EDT Office Visit [facility] [address] [facility] [address] [place] [address] Jacky Brandon MD [address] [facility] [address] [place] [address] [facility] Start: 12-19-2024 End: 12-19-2025 Aerobic culture Aerobic culture Microbiology Routine Phantosmia Expected: 12/19/2024 (Approximate), Expires: 12/19/2025 [facility] Work Phone: Comment on above: Expected: 12/19/2024 (Approximate), Expires: 12/19/2025 Start: 01-30-2024 Covid-19 Vaccine ( season) Covid-19 Vaccine ( season) [facility] Start: 01-30-2024 Influenza vaccination Influenza Vacc ine (#1) [facility] Start: 08-17-2022 Plain X-ray of right hip XR hip RT min 2V(w/wo pelvis)* [facility] Start: 08-17-2022 XR Hip - right [address] [facility] Start: 07-16-2022 Bacteria identified in Urine by Culture [facility] Start: 07-16-2022 Hemolytic complement CH50 level [facility] Start: 07-16-[address] [facility] Start: 2018 Shingrix Vaccine (1 of 2) Shingrix Vaccine (1 of 2) [facility] Start: 2013 Diabetes Screening Diabetes Screenin g [facility] Start: 2013 Lipid panel Lipid Screening [facility] Start: 2013 Screening for malignant neoplasm of colon [facility] Start: 2008 Screening for malignant neoplasm of breast [facility] Start: 1998 Screening for malignant neoplasm of cervix [facility] Start: 1989 Screening for malignant neoplasm of cervix [facility] Start: 10-03-1987 Hepatitis B Vaccine (1 of 3 - 19+ 3-dose series) Hepatitis B Vaccine (1 of 3 - 19+ 3-dose series) [facility] Start: 10-03-1987 Pneumococcal Vaccine : 50+ (1 of 2 - PCV) Pneumococcal Vaccine: 50+ (1 of 2 - PCV) [facility] Start: 10-03-1987 Urine microalbumin profile DTaP,Tdap,Td Vaccine (1 - Tdap) [facility] Start: 1986 Anxiety Screening Anxiety Screening [facility] Start: 1986 Depression Screening Depression Scre ening [facility] Start: 1986 Hepatitis C screening Hepatitis C Sc celine [facility] Start: 1986 HIV screening HIV Screening [facility] Start: 1968 Screening for malignant neoplasm of colon [facility] Complement C3 [Mass/volume] in Serum or Plasma [facility] Complement C4 [Mass/volume] in Serum or Plasma [facility] End: 07-23-2025 CT Lumbar spine WO contrast CT LUMBAR SPINE WO IVCON Radiology Routine Radiculopathy of lumbar region Spinal stenosis of lumbar region without neurogenic claudication 1 Occurrences starting 06/23/2024 until 07/23/2025 [facility] Work Phone: Comment on above: 1 Occurrences starti ng 06/23/2024 until 07/23/2025 End: 06-23-2025 EMG(NEURO/NI) EMG(NEURO/NI) EMG Routine Radiculopathy of lumbar region Spinal stenosis of lumbar region without neurogenic claudication Right foot drop 1 Occurrences starting 06/23/2024 until 06/23/2025 [facility] Comment on above: 1 Occurrences starti ng 06/23/2024 until 06/23/2025 Homogenous nuclear A b pattern [Titer] in Serum [facility] End: 10-26-2025 MR Cervical spine WO contrast MRI CERVICAL SPINE WO IVCON Radiology Routine Spinal stenosis of cervical region 1 Occurrences starting 09/26/2024 until 10/26/2025 [facility] Work Phone: Comment on above: 1 Occurrences starti ng 09/26/2024 until 10/26/2025 Nuclear Ab [Titer] i n Serum [facility] End: 07-23-2025 XR Lumbar spine Views W flexion and W extension XR LUMBAR MOTION 4V AP/LAT/ FLEX/EXT Radiology Routine Radiculopathy of lumbar region Spinal stenosis of lumbar region without neurogenic claudication 1 Occurrences starting 06/23/2024 until 07/23/2025 [facility] Comment on above: 1 Occurrences starti ng 06/23/2024 until 07/23/2025 Immunizations Immunization Date Immunization Notes Care Provider Jah dasilva 11-09-2020 COVID-19 mRNA-1273 (Moderna) DO Roberto Roth Work Phone: [facility] 10-12-2020 COVID-19 mRNA-1273 (Moderna) DO Roberto Roth Work Phone: [facility] 05-23-2020 influenza, injectabl e, quadrivalent, preservative free DO Roberto Roth Work Phone: [facility] 05-23-2020 influenza virus vaccine, unspecified formulation Los Sarmiento MD Work Phone: [facility] 03-22-2019 influenza, injectabl e, quadrivalent, preservative free Jacky Brandon MD Work Phone: [facility] Payers Date Payer Category Payer [facility] Blue [facility] [id number] [id number] 2023 Unknown [id number] 2023 Unknown [id number] 2022 Self-pay [id number] 1968 Unknown [id number] 2.16.84 0.1.168153.3.579.2.593 1968 Unknown [id number] 2.16.84 0.1.110366.3.579.2.593 1968 Unknown [id number] 2.16.84 0.1.612785.3.579.2.593 1968 Unknown [id number] 2.16.84 0.1.867641.3.579.2.593 1968 Unknown [id number] 2.16.84 0.1.707064.3.579.2.593 1968 Unknown [id number] 2.16.84 0.1.885486.3.579.2.593 1968 Unknown [id number] 2.16.84 0.1.767998.3.579.2.593 1968 Unknown [id number] 2.16.84 0.1.884649.3.579.2.593 1968 Unknown [id number] 2.16.84 0.1.055309.3.579.2.593 1968 Unknown [id number] 2.16.84 0.1.108495.3.579.2.593 1968 Unknown [id number] 2.16.84 0.1.228700.3.579.2.593 1968 Unknown [id number] 2.16.84 0.1.379253.3.579.2.593 1968 Unknown [id number] 2.16.84 0.1.208914.3.579.2.593 1968 Unknown [id number] 2.16.84 0.1.464375.3.579.2.593 1968 Unknown [id number] 2.16.84 0.1.836787.3.579.2.593 1968 Unknown [id number] 2.16.8 40.1.946145.3.579.2.1259 1968 Unknown [id number] 2.16. 840.1.266521.3.579.2.196 1968 Unknown [id number] 2.16. 840.1.141181.3.579.2.196 1968 Unknown [id number] 2.16. 840.1.121405.3.579.2.196 1968 Unknown [id number] 2.16. 840.1.978979.3.579.2.196 1959 Unknown [id number] Unknown [id number] Unknown [id number] 2.16.8 40.1.007205.3.579.2.531 Social History Date Type Detail Facility Start: 05-14-2020 End: 06-23-2021 Tobacco smoking status MEIS Smoker (finding) [facility] Start: 1970 Sex Assigned At Female F [facility] Start: 06-09-2024 End: 12-19-2024 History of tobacco use [facility] Tobacco smoking stat [facility] Tobacco smoking consumption unknown [facility] Start: 1970 Sex assigned at Not on file [facility] Start: 06-09-2024 End: 12-19-2024 Tobacco smoking status [facility] Smokes tobacco daily [facility] History of tobacco use Cigarette Smoker [facility] Start: 06-09-2024 End: 12-19-2024 Tobacco use and exposure Smokeless tobacco non-user [facility] Start: 06-09-2024 End: 02-26-2025 Alcoholic beverage intake Ex-drinker (finding) [facility] Start: 06-09-2024 End: 12-19-2024 History of Social function [facility] Adult Depression Screening Assessment 3 [facility] Medical Equipment Procedure Code Equipment Code Equipment Origin al Text Equipment Identifier Dates Fusion, spine, lumbar, XLIF CANCELLOUS COARSE 7.5CC FDA Start: 05-22-2020 Fusion, spine, lumbar, XLIF Bone-screw internal spinal fixation system, non-sterile ()[id number] FDA Start: 05-22-2020 Fusion, spine, lumbar, XLIF Bone-screw internal spinal fixation system, non-sterile ()[id number] FDA Start: 05-22-2020 Fusion, spine, lumbar, XLIF Bone-screw internal spinal fixation system, non-sterile ()[id number] FDA Start: 05-22-2020 Fusion, spine, lumbar, XLIF CANCELLOUS COARSE 7.5CC FDA Start: 05-22-2020 Fusion, spine, lumbar, XLIF Bone-screw internal spinal fixation system, non-sterile ()[id number] FDA Start: 05-22-2020 Fusion, spine, lumbar, XLIF Bone-screw internal spinal fixation system, non-sterile ()[id number] FDA Start: 05-22-2020 Fusion, spine, lumbar, XLIF Polymeric spinal fusion cage, non-sterile ()[id number] FDA Start: 05-22-2020 Fusion, spine, lumbar, XLIF Dura mater graft, bovine ()[id number] FDA Start: 05-22-2020 Fusion, spine, lumbar, XLIF MAS REDUCTION FIXATION ADD LEV FDA Start: 05-22-2020 Fusion, spine, lumbar, XLIF XLIF 1 LEVEL MAS REDUCTION FDA Start: 05-22-2020 Fusion, spine, lumbar, XLIF Spinal fusion graft kit [id number] FDA Start: 05-22-2020 Fusion, spine, lumbar, XLIF Bone matrix implant, human-derived ()[id number] FDA Start: 05-22-2020 Fusion, spine, lumbar, XLIF Metallic spinal fusion cage, non-sterile ()[id number] FDA Start: 05-22-2020 Fusion, spine, lumbar, XLIF Bone-screw internal spinal fixation system, non-sterile ()[id number] FDA Start: 05-22-2020 Fusion, spine, lumbar, XLIF [...] Desired Activity /State Clinical Notes 01-07-2022 to 02-26-2025 Jacky Brandon MD - 02/26/2025 3:20 PM Remy Brandon MD - 12/19/2024 3:00 PM EDTCLos norris MD - 09/26/2024 3:00 PM EDTTelephone Encounter - Marta Walker - 06/22/2024 9:51 AM EST Note Date & Type Note Facility 02-26-2025 History of Presen t illness Narrative Subjective Patient ID: Kim Hill is a 54 y.o. female who presents for Sinusitis (Follow up CT 02/15/25) CT sinus shows marked right maxillary sinus opacification and OMC obstruction. Pt still having marked sx Review of Systems All other systems reviewed and are negative. Family History Problem Relation Name Age of Onset Diabetes Mother Diabetes Father Active Ambulatory Problems Diagnosis Date Noted Hallux valgus (acquired), left foot 12/13/2024 Resolved Ambulatory Problems Diagnosis Date Noted No Resolved Ambulatory Problems Past Medical History: Diagnosis Date Sinusitis Past Surgical History: Procedure Laterality Date BACK SURGERY HYSTERECTOMY Allergies Allergen Reactions Amoxicillin-Pot Clavulanate Diarrhea Other Reaction(s): dizziness Penicillin G Rash Current Outpatient Medications on File Prior to Visit Medication Sig Dispense Refill albuterol HFA 90 mcg/act inhaler TAKE 2 PUFFS BY MOUTH EVERY 4 TO 6 HOURS NEEDED baclofen (Lioresal) 10 MG tablet TAKE ONE TABLET BY MOUTH THREE TIMES A DAY NEEDED FOR MUSCLE SPASM cetirizine (ZyrTEC) 10 MG tablet Take 1 tablet (10 mg) by mouth Daily as needed for allergies 90 tablet 3 Cyanocobalamin (B-12) [address] under the tongue fluticasone (Flonase) 50 MCG/ACT nasal spray 2 sprays to the right nose twice daily. Shake gently. Before first use, prime pump. After use, clean tip and replace cap. 48 g 3 gabapentin (Neurontin) 600 MG tablet Take 600 mg by mouth in the morning and 600 mg in the evening and 600 mg before bedtime. HYDROcodone-acetaminophen ([place]) 7.5-325 MG tablet TAKE ONE TABLET BY MOUTH THREE TIMES A DAY NEEDED FOR PAIN. MUST LAST 30 DAYS ipratropium-albuterol (Duo-Neb) 0.5-2.5 mg/3 mL nebulizer solution USE 1 VIAL PER NEBULIZER 3 TIMES DAILY lisinopril 10 MG tablet Take 10 mg by mouth in the morning. meloxicam (Mobic) 15 MG tablet Take 15 mg by mouth Daily montelukast (Singulair) 10 MG tablet Take 10 mg by mouth in the evening pantoprazole (ProtoNix) 40 MG EC tablet Take 40 mg by mouth Daily Trelegy Ellipta 200-62.5-25 MCG/ACT aerosol powder INHALE 1 PUFF BY INHALATION ROUTE ONCE DAILY AT THE SAME TIME EACH DAY Zinc Sulfate (ZINC 15 PO) Take by mouth No current facility-administered medications on file prior to visit. Objective Last Recorded Vitals Vitals: 02/26/25 1508 BP: 85/63 Pulse: 109 ENT Physical Exam Constitutional Appearance: patient appears well-developed, well-nourished and well-groomed, Communication/Voice: communication appropriate for developmental age; vocal quality normal; Nose Internal Nose: nasal septal deviation present; Respiratory Inspection: breathing unlabored; normal breathing rate; Auscultation: breath sounds are clear; Cardiovascular Inspection: extremities are warm and well perfused; no peripheral edema present; Auscultation: regular rate and rhythm; Assessment/Plan Diagnoses and all orders for this visit: Chronic maxillary sinusitis PT has persistent severe chronic right maxillary sinusitis (>12 weeks) sinusitis that has failed aggressive medical management with abx, nasal steroids, prednisone, antihistamines and saline irrigations. Proceed with right maxillary antrostomy. Risks, including epistaxis, anosmia, orbit injury with diploia or blindness, CSF leak, and persistent sx d/w pt who expressed understanding. documented in this encounter [facility] 12-19-2024 History of Presen t illness Narrative [...] tx. documented in this encounter [facility] 09-26-2024 History of Presen t illness [...] gabapentin, meloxicam, voltaren cream, heat, mdp x1 [place] - 3x/dy REVIEW OF SYSTEMS: GENERAL: [...] 10 mg by mouth daily at bedtime. vpvjvvhksri-rstrxodib-wsgyskfa (TRELEGY ELLIPTA) 100-62.5-25 mcg inhalation powder Inhale [...] with more than 50% of the total ahjr-um-udyr time of the visit in counseling / coordination of care. SIGNATURE: Los Sarmiento MD PATIENT NAME: Kim Hill DATE: September 25, 2024 TIME: 3:07 PM PAGER: By signing my name below, I, Ernestina Bety, attest that this documentation has been prepared under the direction and in the presence of Dr. Sarmiento Electronically signed, Monae Chew September 25, 2024 3:08 PM documented in this encounter [facility] 06-23-2024 Telephone encounter Note Neuro SPINE CARE COORDINATION QUICK NOTE Called patient, no answer. Left non-detailed VM on non-identified VM box instructing patient to call office or check MYC messages for details. Ness Corbett RN June 23, 2024 11:12 AM [facility] 06-23-2024 Miscellaneous Notes Neuro SPINE CARE [...] Pt can schedule. documented in this encounter [facility] 06-22-2024 Telephone encounter Note Pt called asking for orders informed by on OV 06/16/24. Discussed with patient will order CT and EMG as well as standing xray Pls send MyC msg once orders are ready so that Pt can schedule. [facility] 06-16-2024 Note HNO ID: [id number] Author: LOS SARMIENTO MD Service: ? Author Type: Physician Type: Progress Notes Filed: 06/16/2024 17:55 Note Text: Rescheduled, no charge [facility] 06-16-2024 Note HNO ID: [id number] Author: LOS SARMIENTO MD Service: ? Author Type: Physician Type: Progress Notes Filed: 06/16/2024 09:36 Note Text: I have communicated my name and active licensure. The patient's identity and physical location were verified at the time of this visit. Either the patient or their legal risk control field representative has been informed of the risks [...] with more than 50% of the total woch-tb-rvxy time of the visit in counseling / coordination of care. [facility] 06-16-2024 History of Presen t illness Narrative I have communicated my name and active licensure. The patient's identity and physical location were verified at the time of this visit. Either the patient or their legal risk control field representative has been informed of the risks [...] with more than 50% of the total suut-ww-htjq time of the visit in counseling / coordination of care. documented in this encounter [facility] 03-10-2024 Note HNO ID: [id number] Author: KENAN GODOY APRN.PAPER GUILLOTINE OPERATOR Service: ? Author Type: Nurse Practitioner [...] gabapentin, meloxicam, voltaren cream, heat, mdp x1 [place] - 3x/dy Studies (Reports unless indicated) Mri lumbar report Lumbarization S1 S/p :L4-S1 fusion L5/S1 mod b/l FS S1/2 paraspinal muscle mod to severe atrophy Disposition: Please schedule with dr sarmiento if patient would like soon can schedule with myself. Please instruct patient to bring copy of imaging and injection history for review. [facility] 03-10-2024 History of Presen t illness Narrative [...] gabapentin, meloxicam, voltaren cream, heat, mdp x1 [place] - 3x/dy Studies (Reports unless indicated) [...] Hill Are you being referred by a [place] for Spine Health Provider or Pain Management Provider at [facility]? No If answer is YES please [...] the facility where the MRI/CT/myelogram was completed: [place] [address] MRI/CT/myelogram viewable in Epic: No If not, please provide [phone] to fax in imaging reports for review. Also, please inform patient to hand carry imaging disc to appointment. XR (spine) within 12 months: Yes If YES, please ask for the name/address of the facility where the XR was completed: [place] [address] Dr. Freeman's patients: Have you had previous [...] therapy was completed [facility] [place] - [address] [place] [address] Have you tried any other kinds of non-surgical treatments in the last 12 months? (For example: NSAIDS, muscle relaxants, analgesics, oral steroids, Chiropractor, Acupuncture): gabapentin, meloxicam, voltaren cream, heat, mdp x1 4. Are you currently taking daily prescribed narcotic medications for your current symptoms (For example Oxycodone, Hydrocodone, Tramadol, Morphine, Other)? Yes [place] - 3x/dy 5. Have you had previous spinal surgery for this same symptoms? Yes If YES please ask for the name of facility/address of where the surgery was completed: [address] [place] [address] - 2 cages Additional Comments [phone] documented in this encounter [facility] 03-06-2024 Note HNO ID: [id number] Author: ?, ?, ? Service: ? Author Type: ? Type: Progress Notes Filed: 03/10/2024 16:07 Note Text: Patient name: Kim Hill Are you being referred by a [facility] Provider or Pain Management Provider at [facility]? No If answer is YES please [...] the facility where the MRI/CT/myelogram was completed: [facility] [address] [id number] MRI/CT/myelogram viewable in Epic: No If not, please provide [phone] to fax in imaging reports for review. Also, please inform patient to hand carry imaging disc to appointment. XR (spine) within 12 months: Yes If YES,? please ask for the name/address of the facility where the XR was [place]: [place] [address] Dr. Freeman's patients: Have you had previous [...] therapy was completed [place] [place] [address] Have you tried any other kinds of non-surgical treatments in the last 12 months? (For example: NSAIDS, muscle relaxants, analgesics, oral steroids, Chiropractor, Acupuncture): gabapentin, meloxicam, voltaren cream, heat, mdp x1 4. Are you currently taking daily prescribed narcotic medications for your current symptoms (For example Oxycodone, Hydrocodone, Tramadol, Morphine, Other)? Yes [place] - 3x/dy 5. Have you had previous spinal surgery for this same symptoms? Yes If YES? please ask for the name of facility/address of where the surgery was completed: [facility] - 2 cages Additional Comments [phone] [facility] 10-06-2022 Note CONSULTATION CONSULTATION DATE: 10/06/2022 TO: [...] pill b.i.d. and to continue to use [place] 7.5 mg t.i.d. We did reduce the use at her last visit from 90 pills a month to 80 pills to last one month's time. She appears to be tolerating this transition quite well. I have asked her to continue with gabapentin 600 mg t.i.d. Her JOYCE on today's visit is 28. She reports the [place] does improve her quality of life, level of functioning and sleep pattern, and she denies any side effects. As part of providing excellent, safe, comprehensive care, the following was completed at our patient's visit: 1. A medication reconciliation and review to ensure accurate knowledge of current/active medications, including asking our patients to inform us about any bess-hto-udvptrg medications or herbal remedies/nutritional supplements/alternative remedies. 2. [...] options with their primary care provider. [facility] 09-01-2022 Note CONSULTATION CONSULTATION DATE: 09/01/2022 TO: [...] our patients to inform us about any goyr-atv-tqybhsp medications or herbal remedies/nutritional supplements/alternative remedies. 2. [...] options with their primary care provider. [facility] 08-17-2022 Evaluation note Encounter Date Diagnosis Assessment Notes Jul, Other chronic pain (ICD-10 - G89.29) Jul, Low back pain, unspecified (ICD-10 - M54.50) [email or web address] Other 02-16-2023 NoteCONSULTATION CONSULTATION DATE: 07/16/2022 HISTORY OF PRESENT ILLNESS: This is a 51-year-old female who returns to the clinic status post bilateral SI joint injection completed on 06/23/2022. The patient received 80% relief for one day and on day two felt worse than her normal baseline pain. Today, she rates her pain 8/10. Medications include gabapentin 600 mg t.i.d., [place] 7.5/325 b.i.d. and Mobic 15 mg [...] her medications; Mobic 15 mg daily and [place] 7.5/325 b.i.d. She will return to the clinic in six weeks' time, in which we will, in addition to her PCPs office, review the MRI and form a plan of care at that time. Patient is in agreement to this plan.[facility] [id number] Note CONSULTATION CONSULTATION DATE: 05/29/2022 HISTORY OF [...] down. Medications include gabapentin 600 mg t.i.d., [place] 7.5/325 b.i.d. and diclofenac 50 mg [...] care and will be followed up thereafter.[facility] [id number] NoteCONSULTATION CONSULTATION DATE: 05/14/2022 HISTORY OF PRESENT [...] as well as gabapentin 600 mg t.i.d., [place] 7.5/325 t.i.d. At her last appointment, [...] Refills for gabapentin 600 mg t.i.d. and [place] 7.5/325 b.i.d. will be sent to her pharmacy. Patient agrees to move forward with the procedure. She will followed up in the clinic thereafter.[facility] [id number] NotePAIN MANAGEMENT CONSULTATION CONSULTATION DATE: 05/14/2022 CHIEF [...] with a sacroiliac joint injection under fluoroscopy.[facility] [id number] NoteCONSULTATION CONSULTATION DATE: 03/12/2022 ADDENDUM DIAGNOSIS: Lumbar spondylosis, lumbar degenerative disc disease, chronic lower back pain and a history of a lumbar fusion.[facility] [id number] Note CONSULTATION CONSULTATION DATE: 03/12/2022 This is [...] Current medications include gabapentin 600 mg t.i.d., [place] 7.5/325 b.i.d., diclofenac cream and ibuprofen. [...] with her vitamins as well as her [place]. The dose of frequency will not be changed. We will have the patient return to the clinic in two months' time for re-evaluation. The patient is inquiring about an increase of her [place], possibly during the winter months. There will be no changes today.[facility] [id number] NoteCONSULTATION CONSULTATION DATE: 01/07/2022 This is a [...] Current medications include gabapentin 600 mg b.i.d., [place] 7.5/325 b.i.d., diclofenac topical, multivitamin regimen and ibuprofen p.r.n. She has tried diclofenac in the past but was unable to tolerate it due to stomach issues but low-dose ibuprofen she can tolerate. She is needing [place] and gabapentin refill today. REVIEW OF [...] subsequently move to the left. Refill for [place] 7.5/325 b.i.d. and gabapentin 600 mg b.i.d. will be sent to the pharmacy. The patient is encouraged to increase magnesium in her vitamin regimen as well as menthol heat rub, seated stretches that were demonstrated and heat application. The patient agrees with the plan of care and would like to move forward and she will follow-up in the clinic post procedure.[facility] CampusEvaluation noteNo assessment information [facility] Work Phone: Evaluation noteNo InformationNort [employer] Other evaluation note* Diagnosis Lumbar radiculopathy- Primary Thoracic or lumbosacral neuritis or radiculitis, unspecified [facility] Diagnosis Radiculopathy of lumbar region- Primary Thoracic or lumbosacral neuritis or radiculitis, unspecified Spinal stenosis of lumbar region without neurogenic claudication Spinal stenosis, lumbar region, without neurogenic claudication Right foot drop Other acquired deformity of ankle and foot documented in this encounter [facility] note* Diagnosis Spinal stenosis of cervical region- Primary Spinal stenosis in cervical region Lumbar radiculopathy Thoracic or lumbosacral neuritis or radiculitis, unspecified Adhesive arachnoiditis (HCC) Meningitis, unspecified documented in this encounter [facility]* Diagnosis Phantosmia- Primary Chronic maxillary sinusitis History of MRSA infection documented in this encounter [facility] Healthcare[facility]* Diagnosis Chronic maxillary sinusitis- Primary documented in this encounter [facility] HealthcareHistory general Narrative - Reported* Type Description Date Medical History osteoarthritis Medical History rheumatoid arthritis Medical History carpal tunnel Medical History fibromyalgia Medical History hypertension Medical History Arthritis Medical History asthma Medical History obesity Medical History pneumonia Medical History anxiety Surgical History hysterectomy 01/2012 Surgical History back surgery Surgical History left middle finger surgery Hospitalization History see above Hospitalization History 4 child births [email or web address] Other reason for referral (narrative)* Diagnostic Procedure Only (Routine) - New Request Specialty Diagnoses / Procedures Referred By Claritza schumacher Referred To Contact XR IMAGING Diagnoses Radiculopathy of lumbar region Spinal stenosis of lumbar region without neurogenic claudication Procedures XR LUMBAR MOTION 4V AP/LAT/ FLEX/EXT RADEX SPINE LUMBOSACRAL MINIMUM 4 VIEWS Kenan Godoy, YOVANI.PAPER GUILLOTINE OPERATOR [address] [place] [address] Xr Imaging [place] [address] Referral ID Status Reason Start Date Expiration Date Visits Requested Visits Authorized [id number] New Request Auto-Generat ed Referral 06/23/2024 07/23/2025 1 1 * Outpatient Procedure (Routine) - New Request Specialty Diagnoses / Procedures Referred By Claritza schumacher Referred To Contact [facility] Diagnoses Radiculopathy of lumbar region Spinal stenosis of lumbar region without neurogenic claudication Right foot drop Procedures EMG(NEURO/NI) NERVE CONDUCTION STUDIES 9-10 STUDIES Kenan Godoy APRN.PAPER GUILLOTINE OPERATOR [address] [place] [address] [facility] [place] [address] [place] [address] Referral ID Status Reason Start Date Expiration Date Visits Requested Visits Authorized [id number] New Request Auto-Generat ed Referral 06/23/2024 06/23/2025 1 1 * MRI/CT (Routine) - New Request Specialty Diagnoses / Procedures Referred By Claritza schumacher Referred To Contact CT IMAGING Diagnoses Radiculopathy of lumbar region Spinal stenosis of lumbar region without neurogenic claudication Procedures CT LUMBAR SPINE WO IVCON CT LUMBAR SPINE W/O CONTRAST MATERIAL Kenan Godoy APRN.PAPER GUILLOTINE OPERATOR [address] [place] [id number] [place] [address] Referral ID Status Reason Start Date Expiration Date Visits Requested Visits Authorized [id number] New Request Auto-Generat ed Referral 06/23/2024 07/23/2025 1 1 [facility] Advance Directives Advance Directive Response Recorded [...] Active Gina Guerrero MD Attending Provider Active Oven Loader Relationship Specialty Start Date End Date Aby Mark CNP [address] [place] [address] Referring Family Medicine 03/02/24 Oven Loader Relationship Specialty Start Date End Date Aby Mark CNP [address] [place] [address] Referring Family Medicine 03/02/24 Oven Loader Relationship Specialty Start Date End Date Aby Mark CNP [address] [place] [address] Referring Family Medicine 03/02/24 Oven Loader Relationship Specialty Start Date End Date Aby Mark CNP [address] [place] [address] Referring Family Medicine 03/02/24 Oven Loader Relationship Specialty [place] [address] [place] [address] PCP - General Cardiology 12/05/24 Oven Loader Relationship Specialty Start Date End Date Osvaldo Brow[place] [id number] [place] [address] PCP - General Cardiology 12/05/24 Oven Loader Relationship Specialty Start [place] [address] [place] [address] PCP - General Cardiology 12/05/24 Oven Loader Relationship Specialty Start [place] [address] [place] [address] PCP - General Cardiology 12/05/24 Oven Loader Relationship Specialty Start [place] [address] [place] [address] PCP - General Cardiology 12/05/24 Goals (unrecognized section and content) Goals may be documented in a n alternate sectionGoals may be documented in an alternate sectionGoals may be documented in an alternate sectionGoals may be documented in an alternate sectionNo InformationNo Information INFORMATION SOURCE (unrecogn ized section and content) DATE CREATED AUTHOR 08/01/[address] [facility] dical Specialist DATE CREATED AUTHOR AUTHOR'S ORGANIZ ATION 11/06/2022 [facility] DATE CREATED AUTHOR AUTHOR'S ORGANIZ ATION 11/24/2023 [facility] DATE CREATED AUTHOR AUTHOR'S ORGANIZ ATION 09/28/2024 [facility] DATE CREATED AUTHOR AUTHOR'S ORGANIZ ATION 12/21/[address] [facility] dical Specialists [facility] DATE CREATED AUTHOR AUTHOR'S ORGANIZ ATION 02/11/2025 [facility] REASON FOR VISIT (unrecogniz ed section and content) Reason Comments Established Patient Reason Comments Orders Reason Comments Established Patient Reason Comments Sinusitis Reason Comments Sinusitis Follow up CT 02/15/25 Source Comments (unrecognize d section and content) In the event this informatio n is protected by the Federal Confidentiality of Alcohol and Drug Abuse Patient Records regulations: The Federal rules restrict any use of the information to criminally investigate or prosecute any alcohol or drug abuse patient.[facility] the event this information is protected by the Federal Confidentiality of Alcohol and Drug Abuse Patient Records regulations: The Federal rules restrict any use of the information to criminally investigate or prosecute any alcohol or drug abuse patient.[facility] HospitalIn the event this information is protected by the Federal Confidentiality of Alcohol and Drug Abuse Patient Records regulations: The Federal rules restrict any use of the information to criminally investigate or prosecute any alcohol or drug abuse patient.[facility] HospitalIn the event this information is protected by the Federal Confidentiality of Alcohol and Drug Abuse Patient Records regulations: The Federal rules restrict any use of the information to criminally investigate or prosecute any alcohol or drug abuse patient.[facility] FOR RECORDS PERTAINING TO PATIENTS WHO [...] BE BASED ON THE PRIMARY CLINICAL RECORDS. [facility] provides no warranty or guarantee of the accuracy or completeness of information in this document.
--- NOTE | 2025-03-02 08:09 | ECG_ITS ---
[facility] Test Date: 2025-03-02 Pat Name: AKASH LIU Department: Room: - Gender: Female Supervisor Ditching: : 1970 Requested By: JACKY BRANDON Order Number: [id number] Reading MD: RENE COSTELLO M.D. Measurements Intervals [place] Rate: 80 P: 35 KS: 158 QRS: 11 QRSD: 91 T: 42 QT: 355 QTc: 410 Interpretive Statements SINUS RHYTHM LOW QRS VOLTAGE IN PRECORDIAL LEADS [QRS DEFLECTION < 1.0 mV IN CHEST LEADS] Abnormal ECG Compared to ECG 04/27/2024 03:24:55 Low QRS voltage now present Sinus tachycardia no longer present Electronically Signed On 03-02-2025 18:45:07 EDT by RENE COSTELLO M.D.
--- NOTE | 2025-03-02 08:09 | XR_ITS ---
[address] [address] Patient Name: AKASH LIU MRN: [id number] date: 1970 Sex: F Assigned Patient Location: [facility] Current Patient Location: [facility] Accession/Order Number: [id number] Exam Date: 03/02/2025 08:50 Report Date: 03/02/2025 09:02 At the request of: JACKY BRANDON MD Procedure: XR chest 2V XR chest 2V 03/02/2025 8:54 AM SIGNS AND SYMPTOMS: ^preadmission testing PROTOCOL: 2 views of the chest COMPARISON: 04/29/2024 FINDINGS: The trachea is midline. The heart and mediastinal structures are within normal limits. The lung parenchyma is clear. The bony thorax is intact. XR/XR chest 2V IMPRESSION: No acute cardiopulmonary pathology. Impression dictated by: Tate Alva M.D. 03/02/2025 9:02 AM Dictation Location: [place] [address] Electronically authenticated by: [id number] Y Date: 03/02/2025 09:02
[2025-03-02 08:52] LABS: Hematocrit 36.9 % (36.0-48.0); Hemoglobin 12.2 g/dL (12.0-16.0); Immature Granulocytes Abs Auto 0.03 10^3/uL (0.00-0.03); Immature Granulocytes Pct Auto 0.3 % (0.0-0.5); Lymphocytes Absolute Auto 3.7 10^3/uL (1.2-3.8); Mean Corpuscular HGB Conc 33.1 g/dL (29.9-35.2); Mean Corpuscular Hemoglobin 32.9 pg (26.7-34.0); Mean Corpuscular Volume 99.5 fL (81.0-99.0); Platelet Count 260 10^3/uL (150-450); Red Blood Count 3.71 10^6/uL (4.20-5.40); White Blood Count 9.1 10^3/uL (4.0-11.0)
[2025-03-02 09:05] LABS: INR 1.00; Partial Thromboplastin Time 26.7 sec (22.3-36.2); Prothrombin Time 10.6 sec (9.0-11.6)
== END 2025-03-02 07:35 | disposition home or self-care (01) ==
LOC: PST 07:35
PROVIDERS: PCP Nurse Practitioner Family; Visit Provider Otolaryngology
DX: Z01.810 Encounter for preprocedural cardiovascular examination (principal); Z01.812 Encounter for preprocedural laboratory examination; J32.0 Chronic maxillary sinusitis
CPT/HCPCS: 36415; 71046; 85025; 85610; 85730; 93005

== ENCOUNTER 2025-03-08 07:56 | Day surgery (SDC) | payer BC, SELFPAY ==
[2025-03-02 07:50] VITALS: BP 129/73; PULSE 86; TEMP 36.1; O2SAT 95; BMI 39.2
[2025-03-08] VITALS (11 sets, daily range): BP systolic 108–138; BP diastolic 62–96; PULSE 77–92; TEMP 36.1–36.4; O2SAT 93–98; BMI 38.3
--- NOTE | 2025-03-08 | OP_ITS ---
OPERATION DATE: 03/08/2025 SURGEON: Renu Beltrán M.D. PREOPERATIVE DIAGNOSIS: Chronic maxillary sinusitis. POSTOPERATIVE DIAGNOSIS: Chronic maxillary sinusitis. PROCEDURE: Right maxillary antrostomy. ANESTHESIA: General endotracheal. COMPLICATIONS: None. FINDINGS: Polypoid change of the right anterior middle turbinate. Copious purulent fluid filling the maxillary sinus and marked mucosal thickening of the maxillary sinus. INDICATIONS: This 54-year-old woman presented with chronic maxillary sinusitis, unresponsive to aggressive medical management. PROCEDURE: Patient identified in the holding area and taken back to the OR where she was placed in a supine position. After induction of general anesthesia, the face was prepped and draped in a sterile fashion, and Afrin soaked pledgets were placed in the right nose. After waiting adequate time for decongestion, the nose was approached with the nasal endoscope and lidocaine 1% with 1:100,000 epinephrine injected into the middle turbinate and lateral nasal wall. After waiting adequate time for hemostasis, a curved scissor to the right was used to incise the anterior portion of the right middle turbinate and it was sent for separate pathologic analysis. Then, a sickle knife was used to incise the uncinate process, which was removed with an ethmoid forcep. A [place] seeker was used to find the natural ostium of the maxillary sinus, and it was opened with a straight cutting forcep and sidebiting forceps. There was copious purulent fluid and this was sent for aerobic culture. Then, the maxillary sinus was repeatedly irrigated with normal saline until it was completely clean. The posterior root of the middle turbinate was then prophylactically cauterized to minimize the risk of postoperative bleeding, and the patient was awakened and taken to the recovery room in good condition. JESSICA
--- OUTSIDE RECORDS SUMMARY | 2025-03-08 08:16 | XMS_ITS | CCD ---
Author Organization [facility] Care Team Providers Care Plumbing Contractor Name Role Phone Roberto Roth Primary Care Provider Justice Cruz Attending Provider DO Roberto Roth Primary Care Provider MD Hood Rausch Attending Provider [phone] DO Roberto Roth Primary Care Provider [phone] CALVIN Mark Attending Provider MD Paresh Tian Attending Provider [phone] RothDO Roberto oliva Primary Care Provider [phone] CALVIN Mark Attending Provider [phone] MD Paresh Tian Attending Provider MD Gina Guerrero Attending Provider [phone] Gina Guerrero Unavailable SHE ., DR HOOD [...] ROTH, DR ROBERTO Bhakta Primary Care Unavailable [place], DR DASHA Gomez Consulting Unavailable SINGH ., [...] LAKSHMIPATHY ., NARENDTONYATH Attending Manjula vailable DR ROEBRTO ROTH Primary Care Unavailable LAKSHMIPATHY ., NARENDRANATH Admitting Manjula vailable LAKSHMIPATHY ., NARENDRANATH Consulting Manjula vailable LAKSHMIPATHY ., NARENDTONYATH Attending Manjula vailable DR ROBERTO ROTH Primary Care Unavailable Roberto Roth Primary Care Unavailable Gina Guerrero Attending Unavailable Gina Guerrero Admitting Unavailable Aimee ORTIZ, Aby Unavailable [phone] LOS SARMIENTO Attending Unavailable ABY MARK Referring Unavailable LOS SARMIENTO Attending Unavailable ABY MARK Referring Unavailable LOS SARMIENTO Attending Unavailable Pavan BUSTILLO [facility] Primary Care Provider Gilitaitis , Aaron Musa Attending Unavailable Gieditis , Andrius Musa Attending Unavailable Gieditis , Andtawanda Musa Attending Unavailable Giedleighton BUSTILLO, Andrius Musa Attending Unavailable COLTMIJACKY Hernandez H Attending Unavailable COLTMISJACKY H Attending Unavailable Unavailable Unavailable Unavailable Allergies Allergy Classification Reported Allergen(s) Allergy Type Date of Onset Reaction(s) Facility (6 sources) Amoxicillin; Translations: [amoxicillin] Drug Allergy 05-14-20 [facility] (11 sources) Penicillins; Translations: [Penicillins] Propensity to adverse reactions 07-24-19 14 Rash, Diarrhea [facility] (6 sources) clavulanic acid; Translations: [clavulanic acid] Propensity to adverse reactions 05-14-20 20 Nausea [facility] (3 sources) Amoxicillin / Clavulanate; Translations: [Augmentin] Drug Allergy 07-24-19 14 Unknown [facility] (2 sources) Azithromycin Drug Allergy diarrhea [facility] Other (11 sources) Penicillin G Drug Allergy 12-20-19 25 Rash [facility] Other (9 sources) Amoxicillin-Pot Clavulanate Drug Allergy 12-17-19 24 Diarrhea [facility] Medications Current Medications Medication Drug Class(es) Dates Sig (Normalized) Sig (Original) acetaminophen 500 mg oral tablet (4 sources) Start: 05-31-2020 take 500 mg by mouth every four hours Acetaminophen Active 500 MG PO Q4H 100 May 31, 2020 1:00am acetaminophen 325 mg / HYDROcodone bitartrate 7.5 mg oral tablet (19 sources) Opioid Agonist Start: 12-08-2024 take 1 tablet by mouth three times daily as needed for pain HYDROcodone-acetami nophen ([place]) 7.5-325 MG tablet TAKE ONE TABLET BY MOUTH THREE TIMES A DAY NEEDED FOR PAIN. MUST LAST 30 DAYS 12/08/2024 Active Start: 03-18-2019 End: 05-23-2020 take 1 tablet by mouth three times daily Hydrocodone-Acetaminophen ([place]) 5-325 mg Tablet Discontinued 1 TAB PO Three times daily March 18, 2019 12:00am May 23, 2020 4:59pm take 7.5 mg by mouth three times daily hydrocodone/acetaminophen (NORCO ORAL) T francie 7.5 mg by mouth three times a day. Active [place] Active [id number] 200 actuat albuterol 0.09 mg/actuat metered dose [...] / ipratropium bromide 0.167 mg/ml inhalation solution (13 sources) Anticholinergic, beta2-Adrenergic Agonist Start: 05-04-2024 ipratropium-albuterol [...] 30 Active baclofen 10 mg oral tablet (12 sources) gamma-Aminobuty gabriela Acid-ergic Agonist take 1 [...] Active cetirizine hydrochloride 10 mg oral tablet (9 sources) Histamine-1 Receptor Antagonist Start: End: 026 take 1 tablet by mouth once daily as needed cetirizine (ZyrTEC) 10 MG tablet Indications: Chronic maxillary sinusitis Take 1 tablet (10 mg) by mouth Daily as needed for allergies 90 tablet 3 12/19/2024 12/19/2025 Active fluticasone propionate 0.05 mg/actuat metered dose nasal spray (9 sources) Corticosteroid Start: 025 fluticasone (Flonase) 50 MCG/ACT nasal spray Indications: [...] oral capsule (20 sources) Anti-epileptic Agent Start: 021 take 600 [...] 2020 1:00am meloxicam 15 mg oral tablet (14 sources) Nonsteroidal Anti-inflammatory Drug take 1 tablet by mouth once daily meloxicam (Mobic) 15 MG tablet Take 15 mg by mouth Daily Active montelukast 10 mg oral tablet (12 sources) Leukotriene Receptor Antagonist take 1 tablet [...] pantoprazole 40 mg delayed release oral tablet (14 sources) Proton Pump Inhibitor take 1 tablet [...] milk Trelegy Ellipta 200-62.5-25 MCG/ACT aerosol powder (9 sources) Start: 10-04-2024 take 1 puff(s) by inhalation once daily Trelegy Ellipta 200-62.5-25 MCG/ACT aerosol powder INHALE 1 PUFF BY INHALATION ROUTE ONCE DAILY AT THE SAME TIME EACH DAY 10/04/2024 Active vitamin b12 0.5 mg sublingual tablet (9 sources) Vitamin B12 Cyanocobalamin ( B-12) [address] under the tongue Active Zinc Sulfate (9 sources) Zinc Sulfate (ZI NC 15 PO) Take by mouth Active Completed/Discontinued Medications Medication Drug Class(es) Dates Sig (Normalized) Sig (Original) azithromycin 250 mg oral tablet (4 sources) Macrolide Antimicrobial Start: 02-14-2021 End: 06-23-2021 take 2-5 tablets by mouth once daily Azithromycin (Zithromax) 250 mg tablet Discontinued 0 PO .COMPLEX February 14, 2021 12:00June 23, 2021 5:30pm take 500 mg today [...] Date Documented Date Episodic/Chronic Acquired foot deformities (10 sources) Acquired left hallux valgus; Translations: [Hallux [...] sources) High risk drug monitoring status; 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 9 - 7.0 % [facility] Erythrocyte distribution width (RBC) [Ratio] 11.9 % 11.0 - 15.0 % [facility] Hematocrit (Bld) [Volume fraction] 36.9 % 36.0 - 48.0 % [facility] Hemoglobin (Bld) [Mass/Vol] 12.2 g/dL 12.0 - 16.0 g/dL [facility] IMMATURE GRANULOCYTES ABS AUTO 0.03 [facility] Immature granulocytes/100 WBC (Bld) 0.3 % 0.0 - 0.5 % [facility] Interpretation and review of laboratory results Abnormal [facility] LYMPHOCYTES ABSOLUTE AUTO 3.7 [facility] Lymphocytes/100 WBC (Bld) 41.2 % 20 .5 - 60.0 % [facility] MCH (RBC) [Entitic mass] 32.9 pg 26. 7 - 34.0 pg [facility] MCHC (RBC) [Mass/Vol] 33.1 g/dL 29.9 - 35.2 g/dL [facility] MCV (RBC) [Entitic vol] 99.5 fL High 81.0 - 99.0 fL [facility] MONOCYTES ABSOLUTE AUTO 0.6 [facility] Monocytes/100 WBC (Bld) 6.3 % 1.7 - 12.0 % [facility] NEUTROPHILS ABSOLUTE AUTO 4.4 [facility] Neutrophils/100 WBC (Bld) 48.4 % 43 .0 - 75.0 % [facility] Platelet mean volume (Bld) [Entitic vol] 9.7 fL 9.5 - 13.5 fL [facility] TBH EO # 0.3 [facility]H PLT 260 [facility] TB RBC 3.71 Low [facility] WBC 9.1 [facility] ECG 12-LEADon 03-02-2025 [place] [address] Electrocardiograph Report Signed Patient: KIM HILL MR#: [id number] : 1970 Acct:[id number] Age/Sex: 54 / F ADM Date: 03/02/25 Loc: [facility] Attending Dr: Jacky Brandon M.D. Ordering Physician: Jacky Brandon M.D. Date of Service: 03/02/25 Procedure(s): ECG 12 lead Accession Number(s): [id number] cc: [facility] Test Date: 2025-03-02 Pat Name: KIM HILL Department: Room: - Gender: Female Program Management Analyst: : 1970 Requested By: JACKY BRANDON Order Number: [id number] Reading MD: RENE COSTELLO M.D. Measurements Intervals [place] Rate: 80 P: 35 UT: 158 QRS: 11 QRSD: 91 T: 42 QT: 355 QTc: 410 Interpretive Statements SINUS RHYTHM LOW QRS VOLTAGE IN PRECORDIAL LEADS [QRS DEFLECTION < 1.0 mV IN CHEST LEADS] Abnormal ECG Compared to ECG 04/27/2024 03:24:55 Low QRS voltage now present Sinus tachycardia no longer present Electronically Signed On 03-02-2025 18:45:07 EDT by RENE COSTELLO M.D. Dictated By: RENE COSTELLO Signed By: 03/02/251844 DD/ 5 TD/TT: Warehouse Representative: [facility] Jeff Martinez MD - 03/02/2025 The [place] [id number] Electrocardiograph Report Signed Patient: KIM HILL MR#: [id number] : 1970 Acct:[id number] Age/Sex: 54 / F ADM Date: 03/02/25 Loc: PST Attending Dr: Jacky Brandon M.D. Ordering Physician: Jacky Brandon M.D. Date of Service: 03/02/25 Procedure(s): ECG 12 lead Accession Number(s): [id number] cc: [facility] Test Date: 2025-03-02 Pat Name: KIM HILL Department: Room: - Gender: Female Program Management Analyst: : 1970 Requested By: JACKY BRANDON Order Number: [id number] Reading MD: RENE COSTELLO M.D. Measurements Intervals [place] Rate: 80 P: 35 UT: 158 QRS: 11 QRSD: 91 T: 42 QT: 355 QTc: 410 Interpretive Statements SINUS RHYTHM LOW QRS VOLTAGE IN PRECORDIAL LEADS [QRS DEFLECTION < 1.0 mV IN CHEST LEADS] Abnormal ECG Compared to ECG 04/27/2024 03:24:55 Low QRS voltage now present Sinus tachycardia no longer present Electronically Signed On 03-02-2025 18:45:07 EDT by RENE COSTELLO M.D. Dictated By: RENE COSTELLO Signed By: 03/02/251844 DD/ 0826 TD/TT: Warehouse Representative: [facility] Radiology Study observation (narrative) [facility] ECG 12-LEADOrdered By: Radio logist Radiology on 03-02-2025 [facility] Work Phone: XR CHEST 2Von 03-02-2025 [place] [address] XRay Report Signed Patient: KIM HILL MR#: [id number] : 1970 Acct:[id number] Age/Sex: 54 / F ADM Date: 03/02/25 Loc: PST Attending Dr: Jacky Brandon M.D. Ordering Physician: Jacky Brandon M.D. Date of Service: 03/02/25 Procedure(s): XR chest 2V Accession Number(s): [id number] cc: ABY MARK ; Jacky Brandon M.D. The [address] [address] Patient Name: KIM HILL MRN: [facility]:[id number] date: 1970 Sex: F Assigned Patient Location: [facility] Current Patient Location: [facility] Accession/Order Number: [id number] Exam Date: 03/02/2025 08:50 Report Date: 03/02/2025 09:02 At the request of: JACKY BRANDON MD Procedure: XR chest 2V XR chest 2V 03/02/2025 8:54 AM SIGNS AND SYMPTOMS: preadmission testing PROTOCOL: 2 views of the chest COMPARISON: 04/29/2024 FINDINGS: The trachea is midline. The heart and mediastinal structures are within normal limits. The lung parenchyma is clear. The bony thorax is intact. XR/XR chest 2V IMPRESSION: No acute cardiopulmonary pathology. Impression dictated by: Tate Alva M.D. 03/02/2025 9:02 AM Dictation Location: [place] [address] Electronically authenticated by: [id number] Y Date: 03/02/2025 09:02 Dictated By: Tate Alva M.D. Signed By: 03/02/25904 DD/ 1 TD/TT: Warehouse Representative: [facility] Cecilio Martinezogdilan del toro MD - 03/02/2025 [place] [address] XRay Report Signed Patient: KIM HILL MR#: [id number] : 1970 Acct:[id number] Age/Sex: 54 / F ADM Date: 03/02/25 Loc: [facility] Attending Dr: Jacky Brandon M.D. Ordering Physician: Jacky Brandon M.D. Date of Service: 03/02/25 Procedure(s): XR chest 2V Accession Number(s): [id number] cc: ABY MARK ; Jacky Brandon M.D. The [place] [id number] Patient Name: KIM HILL MRN: [id number] date: 1970 Sex: F Assigned Patient Location: [facility] Current Patient Location: [facility] Accession/Order Number: [id number] Exam Date: 03/02/2025 08:50 Report Date: 03/02/2025 09:02 At the request of: JACKY BRANDON MD Procedure: XR chest 2V XR chest 2V 03/02/2025 8:54 AM SIGNS AND SYMPTOMS: preadmission testing PROTOCOL: 2 views of the chest COMPARISON: 04/29/2024 FINDINGS: The trachea is midline. The heart and mediastinal structures are within normal limits. The lung parenchyma is clear. The bony thorax is intact. XR/XR chest 2V IMPRESSION: No acute cardiopulmonary pathology. Impression dictated by: Tate Alva M.D. 03/02/2025 9:02 AM Dictation Location: [place] [address] Electronically authenticated by: [id number] Y Date: 03/02/2025 09:02 Dictated By: Tate Alva M.D. Signed By: 03/02/25904 DD/ 1 TD/TT: Warehouse Representative: [facility] Radiology Study observation (narrative) [facility] XR CHEST 2VOrdered By: [facility] Radiology on 03-02-2025 [facility] Work Phone: CT SINUS WO CONon 02-16-2025 [place] [address] CT Scan Report Signed Patient: KIM HILL MR#: [id number] : 1970 Acct:[id number] Age/Sex: 54 / F ADM Date: 02/15/25 Loc: CT Attending Dr: Jacky Brandon M.D. Ordering Physician: Jacky Brandon M.D. Date of Service: 02/15/25 Procedure(s): CT sinus wo con Accession Number(s): [id number] cc: ABY MARK [place] [address] Patient Name: KIM HILL MRN: [facility]:[id number] date: 1970 Sex: F Assigned Patient Location: CT Current Patient Location: Accession/Order Number: [id number] Exam Date: 02/15/2025 15:20 Report Date: 02/16/2025 [...] Mckee M.D. 02/16/2025 8:13 AM Dictation Location: [place] [address] Electronically authenticated by: [id number] Y Date: 02/16/2025 08:13 Dictated By: Shalonda Mckee M.D. Signed By: 02/16/25815 DD/ 2 TD/TT: Warehouse Representative: [facility] RadiologyCecilioogdilan del toro MD - 02/16/2025 [place] [address] CT Scan Report Signed Patient: KIM HILL MR#: [id number] : 1970 Acct:[id number] Age/Sex: 54 / F ADM Date: 02/15/25 Loc: CT Attending Dr: Jacky Timmis M.D. Ordering Physician: Jacky Brandon M.D. Date of Service: 02/15/25 Procedure(s): CT sinus wo con Accession Number(s): [id number] cc: ABY MARK [address] [address] Patient Name: KIM HILL MRN: [id number] date: 1970 Sex: F Assigned Patient Location: CT Current Patient Location: Accession/Order Number: [id number] Exam Date: 02/15/2025 15:20 Report Date: 02/16/2025 [...] Mckee M.D. 02/16/2025 8:13 AM Dictation Location: [place] [address] Electronically authenticated by: [id number] Y Date: 02/16/2025 08:13 Dictated By: Shalonda Mckee M.D. Signed By: 02/16/25815 DD/ 2 TD/TT: Warehouse Representative: [facility] Radiology Study observation (narrative) [facility] CT SINUS WO CONOrdered By: Rose guzmaniologmadison Radiology on 02-16-2025 [facility] Work Phone: Ranjit 06-22-2024 CNPN Telephone (NIQ) KIM HILL ([id number]) 1970 F Date Time Provider Department 06/22/24 LOS SARMIENTO NIQ During your visit today, we recorded the [...] drop [M21.371] Order(s):CT LUMBAR SPINE WO IVCON [0632554] Order #: [id number] FUTURE EMG(NEURO/NI) [20100829] Order #: [id number]: 1 FUTURE XR LUMBAR MOTION 4V AP/LAT/ FLEX/EXT [[id number]] Order #: [id number] FUTURE Prescriptions as of 06/23/2024 - gabapentin [...] mg by mouth daily at bedtime. - ydpoiprwfhd-pgbehuqgm-s ilanter (TRELEGY ELLIPTA) 100-62.5-25 mcg inhalation powder [...] Encounter Status:Closed by KENAN GODOY on 06/23/24 [facility] CNOVon 06-09-2024 CNOV Office Visit (SPNSMN ) KIM HILL ([id number]) 1970 F Date Time Provider Department 06/09/24 4:00 PM LOS SARMIENTO SPJOSEMN During your visit today, we recorded the following information about you: Pulse Blood pressure Weight Height 92/minute 104/52 98 kg 1.6 m Los Sarmiento MD 06/16/2024 5:55 PM Signed Rescheduled, no charge Referring Provider: ABY MARK [[id number]] Allergies As of Date: 06/09/2024 Noted Allergy Reaction PENICILLINS 06/09/2024 2 - Rash 6 - Diarrhea Date Reviewed: 06/09/2024 Reviewed by: Olive Ross OCCA - Fully Assessed Reason for Visit: New Patient [172] New Patient Evaluation [154] Cmt: Postop complications from prior surgery outside F Primary Visit Diagnosis:Chronic bilateral low back pain [...] mg by mouth daily at bedtime. - ybtnhdogzaq-nsyptzibb-g ilanter (TRELEGY ELLIPTA) 100-62.5-25 mcg inhalation powder [...] Status:Closed by LOS SARMIENTO on 06/16/24 Normal [facility] MRI Lumbar Spine w/o + [...] by Justice Lucas on 07/31/2022 0915 Normal [facility] Sheep Sticker Automated erythrocytes count in urine sediment (number/area)Ordered By: Paresh Tian on 07-16-2022 RBC Auto (Urine sed) [#/Area] 1-2 [HPF] 0-4 [facility] Automated leukocytes count i n urine sediment (number/area)Ordered By: Paresh Tian on 07-16-2022 WBC Auto (Urine sed) [#/Area] 20-49 [HPF] 0-4 [facility] Basophils Auto (Bld) [#/Vol] Ordered By: Paresh Tian on 07-16-2022 Basophils (Bld) [#/Vol] 0.0 10*3/uL 0.0-0.2 [facility] Basophils/100 WBC Auto (Bld) Ordered By: Paresh Tian on 07-16-2022 Basophils/100 WBC (Bld) 0.4 % . F [facility] Bilirubin Test strip Ql (U)O rdered By: Paresh Tina on 07-16-2022 Bilirubin Ql (U) Negative Negative [facility] C reactive protein [Mass/vol ume] in Serum or PlasmaOrdered By: Paresh Tian on 07-16-2022 CRP [Mass/Vol] 0.8 mg/dL 0.0-1.0 [facility] Color Auto (U)Ordered By: Afia Tian on 07-16-2022 Color (U) Yellow Yellow [facility] Creatinine and Glomerular fi ltration rate.predicted panel (S/P/Bld)Ordered By: Paresh Tian on 07-16-2022 Creatinine [Mass/Vol] 0.74 mg/dL 0.44-1.03 [facility] Eosinophils Auto (Bld) [#/Vo l]Ordered By: Paresh Tian on 07-16-2022 Eosinophils (Bld) [#/Vol] 0.1 10*3/uL 0.0-0.45 [facility] Eosinophils/100 WBC Auto (Bl d)Ordered By: Paresh Tian on 07-16-2022 Eosinophils/100 WBC (Bld) 1.1 % . [facility] Erythrocyte distribution wid th Auto (RBC) [Ratio]Ordered By: Paresh Tian on 07-16-2022 Erythrocyte distribution width (RBC) [Ratio] 13.0 % 11.9-15.3 [facility] Erythrocyte sedimentation ra te by Photometric methodOrdered By: Paresh Tian on 07-16-2022 ESR Photometric method (Bld) [Velocity] 45 mm/hr 0-29 [facility] Estimated glomerular filtrat ion rate (GFR) non- AmericanOrdered By: Paresh Tian on 07-16-2022 GFR/1.73 sq M.predicted among non-blacks MDRD (S/P/Bld) [Vol rate/Area] > 60 mL/Min [facility] Hematocrit Auto (Bld) [Volum e fraction]Ordered By: Paresh Tian on 07-16-2022 Hematocrit (Bld) [Volume fraction] 45.3 % 34.0-46.4 [facility] Hemoglobin [Mass/volume] in BloodOrdered By: Paresh Tian on 07-16-2022 Hemoglobin (Bld) [Mass/Vol] 15.2 g/dL 11.8-15.4 [facility] Ketones Auto test strip (U) [Mass/Vol]Ordered By: Paresh Tian on 07-16-2022 Ketones (U) [Mass/Vol] Negative Negative [facility] Laboratory - UrinalysisOrder ed By: Paresh Tian on 07-16-2022 Hyaline casts LM Ql (Urine sed) 0-8 [LPF] 0-8 [facility] Leukocytes [#/volume] correc scot for nucleated erythrocytes in Blood by Automated counOrdered By: Paresh Tian on 07-16-2022 WBC corrected for nucl RBC Auto (Bld) [#/Vol] 10.4 10*3/uL 3.8-11.6 [facility] Lymphocytes Auto (Bld) [#/Vo l]Ordered By: Paresh Tian on 07-16-2022 Lymphocytes (Bld) [#/Vol] 3.7 10*3/uL 1.00-4.8 [facility] Lymphocytes/100 WBC Auto (Bl d)Ordered By: Paresh Tian on 07-16-2022 Lymphocytes/100 WBC (Bld) 35.0 % . [facility] MCH Auto (RBC) [Entitic mass ]Ordered By: Paresh Tian on 07-16-2022 MCH (RBC) [Entitic mass] 33.8 pg 24.7-34.3 [facility] MCHC Auto (RBC) [Mass/Vol]Or dered By: Paresh Tian on 07-16-2022 MCHC (RBC) [Mass/Vol] 33.6 g/dL 32.0-35.0 [facility] MCV Auto (RBC) [Entitic vol] Ordered By: Paresh Tian on 07-16-2022 MCV (RBC) [Entitic vol] 100.6 fL 80-100 F [facility] Mitotic spindle apparatus Ab [Titer] in Serum or Plasma by ImmunofluorescenceOrdered By: Paresh Tian on 07-16-2022 Mitotic spindle apparatus Ab IF [Titer] 1:160 . [facility] Comment on above: ICAP nomenclature: A C-25,26 Monocytes Auto (Bld) [#/Vol] Ordered By: Paresh Tian on 07-16-2022 Monocytes (Bld) [#/Vol] 0.7 10*3/uL 0.0-0.8 [facility] Monocytes/100 WBC Auto (Bld) Ordered By: Paresh Tian on 07-16-2022 Monocytes/100 WBC (Bld) 6.8 % . F [facility] Neutrophils Auto (Bld) [#/Vo l]Ordered By: Paresh Tian on 07-16-2022 Neutrophils (Bld) [#/Vol] 5.9 10*3/uL 1.8-7.7 [facility] Neutrophils/100 WBC Auto (Bl d)Ordered By: Paresh Tian on 07-16-2022 Neutrophils/100 WBC (Bld) 56.7 % . [facility] Nitrite Test strip Ql (U)Ord ered By: Paresh Tian on 07-16-2022 Nitrite Ql (U) Negative Negative [facility] No Panel InformationOrdered By: Paresh Tian on 07-16-2022 Anti-Nuclear Antibody Comment 2 See comment . [facility] Comment on above: For more information about Hep-2 cell patterns useConstant [employer].org, the official website for the InternationalConsensus on Antinuclear Antibody (ASTER) Patterns (ICAP). --------A positive ASTER result may occur in healthy individuals (lowtiter) or be associated with a variety of diseases. Seeinterpretation chart which is not all inclusive:Pattern Antigen Detected Suggested Disease Association Homogeneous DNA(ds,ss), SLE - High titers Nucleosomes, Histones Drug-induced SLE Speckled Sm, SHIFT SUPERVISOR FILM PROCESSING, SCL-70, SLE,MCTD,PSS (diffuse form), SS-A/SS-B Sjogrens Nucleolar SCL-70, PM-1/SCL High titers Scleroderma, PM/DM Centromere Centromere PSS (limited form) w/Crest syndrome variable Nuclear Dot Sp100,l37-nbssnr Primary Biliary Cirrhosis Nuclear GP210, Primary Biliary CirrhosisMembrane kailyn A,B,C Performed at: [facility] [employer] [id number] Director: Collin Rodriguez PhD, Phone: [phone] Estimated GFR () > 60 mL/Min [facility] Comment on above: GFR estimated refere nce range: According to KDOQI guidelines, <60 ml/min/1.73m2 is sufficient to diagnose a patient with chronic kidney disease. Pharmacy Creatinine Clearance (Chem N/A [facility] Total Complement (CH50) >60 U/mL >41 F [facility] Comment on above: Age Male Female 1 [...] to determine out of range values.Performed at: [employer] [id number] Director: Collin Rodriguez PhD, Phone: [phone] Nucleated erythrocytes [Pres ence] in Blood by Automated countOrdered By: Paresh Tian on 07-16-2022 Nucleated RBC Auto Ql (Bld) 0.1 /100{WBC} 0-0.5 [facility] Platelet mean volume Auto (B ld) [Entitic vol]Ordered By: Paresh Tian on 07-16-2022 Platelet mean volume (Bld) [Entitic vol] 8.4 fL 6.3-10.7 [facility] Platelets Auto (Bld) [#/Vol] Ordered By: Paresh Tian on 07-16-2022 Platelets (Bld) [#/Vol] 242 10*3/uL 150-450 [facility] Protein Auto test strip (U) [Mass/Vol]Ordered By: Paresh Tian on 07-16-2022 Protein (U) [Mass/Vol] Negative Negative [facility] RBC Auto (Bld) [#/Vol]Ordere d By: Paresh Tian on 07-16-2022 RBC (Bld) [#/Vol] 4.50 10*6/uL 3.60-5.00 [facility] Serum homogeneous pattern an tinuclear antibody (ASTER) titerOrdered By: Paresh Tian on 07-16-2022 Homogenous nuclear Ab pattern (S) [Titer] N/A [facility] Serum nuclear antibody titer Ordered By: Paresh Tian on 07-16-2022 Nuclear Ab (S) [Titer] Positive . [facility] Comment on above: Negative <1:80 Borde rline 1:80 Positive >1:80 Serum or plasma complement C 3 measurement (mass/volume)Ordered By: Paresh Tian on 07-16-2022 Complement C3 [Mass/Vol] 197 mg/dL 82-167 [facility] Comment on above: Performed at: [facility] [address] Director: Collin Rodriguez PhD, Phone: [phone] Serum or plasma complement C 4 measurement (mass/volume)Ordered By: Paresh Tian on 07-16-2022 Complement C4 [Mass/Vol] 42 mg/dL 12-38 [facility] Specific gravity Auto test s trip (U) [Rel density]Ordered By: Paresh Tian on 07-16-2022 Specific gravity (U) [Rel density] 1.018 1.001-1.03 0 [facility] Squamous epithelial cells de tection in urine sediment by light microscopyOrdered By: Paresh Tian on 07-16-2022 Epithelial cells.squamous LM Ql (Urine sed) 0-1 [HPF] 0-2 [facility] Urine bacteria detection by automated methodOrdered By: Paresh Tian on 07-16-2022 Bacteria Auto Ql (U) 4+ None Seen [facility] Urine clarity by refractomet ry automatedOrdered By: Paresh Tian on 07-16-2022 Clarity Refractometry automated (U) Clear Clear [facility] Urine culture routineOrdered By: Paresh Tian on 07-16-2022 Bacteria identified Cx Nom (U) Escherichia coli [facility] Urine glucose measurement by automated test strip (mass/volume)Ordered By: Paresh Tian on 07-16-2022 Glucose Auto test strip (U) [Mass/Vol] Normal mg/dL Normal [facility] Urine hemoglobin detection b y automated test stripOrdered By: Paresh Tian on 07-16-2022 Hemoglobin Auto test strip Ql (U) Negative Negative [facility] Urine leukocyte esterase det ection by automated test stripOrdered By: Paresh Tian on 07-16-2022 Leukocyte esterase Auto test strip Ql (U) 3+ Negative [facility] Urobilinogen Auto test strip (U) [Mass/Vol]Ordered By: Paresh Tian on 07-16-2022 Urobilinogen (U) [Mass/Vol] Normal mg/dL Normal [facility] WBC Auto (Bld) [#/Vol]Ordere d By: Paresh Tian on 07-16-2022 WBC (Bld) [#/Vol] 10.4 10*3/uL 3.8-11.6 [facility] pH Auto test strip (U)Ordere d By: Paresh Tian on 07-16-2022 pH (U) 6.5 [pH] 5.0-9.0 [facility] XR HIPS ZEINA 3_4V WO PELVISon [...] KHAN Date: 2022-05-15 07:49 Normal [facility] Covid-19 PCR (CVDTBH)on SARS-CoV-2 (COVID-19) RNA AMBERLY+probe Ql (Unsp spec) Not detected Normal NOT DETECTED [facility] Comment on above: Result Comment: This test is not yet approved or cleared by the [place] FDA. When there are no FDA-approved or cleared tests available, and other criteria are met, FDA can make tests available under an emergency access mechanism called an Emergency Use Authorization (EUA). The EUA for this test is supported by the [place] of Health and Human Service's (HHS's) declaration [...] consistent with SARS-CoV-2. Performed By: #### [facility] #### [facility] [address] [place] [address] Dr. Narendra Jacobsen COVID-19 Positive/NegativeOr dered By: Baljinder Rausch on 01-31-2022 SARS-CoV-2 (COVID-19) N gene AMBERLY+probe Ql (Resp) Negative Negative [facility] Comment on above: Testing for SARS-CoV -2 by RT-PCR This test was developed and its performance characteristics determined by [employer] ([employer]) and validated at the [facility]. This test has not been FDA [...] COVID-19 Positive/Negativeon 05-20-2020 COVID-19 Positive/Negative Negative Negative [facility] Comment on above: Testing for SARS-CoV -2 by RT-PCRThis test was developed and its performance characteristics determined by [employer] ([employer]) and validated at the [facility]. This test has not been FDA [...] Otheron 05-20-2020 Coronavirus 2019 PCR Interp N/A [facility] Automated basophil %on 05-14 Basophils/100 WBC (Bld) 0.5 % [facility] Automated basophil counton 1 07-15-2019 Basophils (Bld) [#/Vol] 0.0 10*3/uL 0.0-0.2 [facility] Automated blood lymphocyte c ount (number/volume)on 05-14-2020 Lymphocytes (Bld) [#/Vol] 2.8 10*3/uL 1.00-4.8 [facility] Automated blood lymphocyte c ount as percentage of total leukocyteson 05-14-2020 Lymphocytes/100 WBC (Bld) 35.0 % [facility] Automated blood monocyte cou nton 05-14-2020 Monocytes (Bld) [#/Vol] 0.6 10*3/uL 0.0-0.8 [facility] Automated blood platelet cou nt (count/volume)on 05-14-2020 Platelets (Bld) [#/Vol] 225 10*3/uL 150-450 [facility] Automated blood platelet jose n volume measurementon 05-14-2020 Platelet mean volume (Bld) [Entitic vol] 8.2 fL 6.3-10.7 [facility] Automated eosinophil %on Eosinophils/100 WBC (Bld) 1.5 % [facility] Automated eosinophil counton 05-14-2020 Eosinophils (Bld) [#/Vol] 0.1 10*3/uL 0.0-0.45 [facility] Automated erythrocyte distri bution width ratioon 05-14-2020 Erythrocyte distribution width (RBC) [Ratio] 12.3 % 11.9-15.3 [facility] Automated erythrocyte mean c orpuscular hemoglobin (mass per erythrocyte)on 05-14-2020 MCH (RBC) [Entitic mass] 35.2 pg 24.7-34.3 [facility] Automated erythrocyte mean c orpuscular hemoglobin concentration measurement (mass/volon 05-14-2020 MCHC (RBC) [Mass/Vol] 34.2 g/dL 32.0-35.0 [facility] Automated erythrocyte mean c orpuscular volumeon 05-14-2020 MCV (RBC) [Entitic vol] 102.9 fL 80-100 [facility] Automated monocyte %on 05-14 Monocytes/100 WBC (Bld) 7.0 % [facility] Automated neutrophil %on Neutrophils/100 WBC (Bld) 56.0 % [facility] Blood erythrocytes automated count (number/volume)on 05-14-2020 RBC (Bld) [#/Vol] 4.08 10*6/uL 3.60-5.00 [facility] Blood hemoglobin measurement (mass/volume)on 05-14-2020 Hemoglobin (Bld) [Mass/Vol] 14.3 g/dL 11.8-15.4 [facility] Blood leukocytes automated c ount (number/volume)on 05-14-2020 WBC (Bld) [#/Vol] 7.9 10*3/uL 4.5-11.0 [facility] Blood neutrophil count by au tomated method (number/volume)on 05-14-2020 Neutrophils (Bld) [#/Vol] 4.4 10*3/uL 1.8-7.7 [facility] Estimated glomerular filtrat ion rate (GFR) non- Americanon 05-14-2020 GFR/1.73 sq M predicted among non-blacks MDRD (S/P/Bld) [Vol rate/Area] mL/min/{1.73_m2} [facility] Hematocrit [Volume Fraction] of Blood by Automated counton 05-14-2020 Hematocrit (Bld) [Volume fraction] 41.9 % 34.0-46.4 [facility] Otheron 05-14-2020 GFR/1.73 sq M.predicted MDRD (S/P/Bld) [Vol rate/Area] mL/min/{1.73_m2} [facility] Comment on above: GFR estimated refere nce range: According to KDOQI guidelines, <60 ml/min/1.73m2 is sufficient to diagnose a patient with chronic kidney disease. Nucleated RBC/100 WBC (Bld) [Ratio] 0.1 % 0-0.5 [facility] Creatinine Clearance (Chem N/A [facility] Serum or plasma calcium octavio urement (mass/volume)on 05-14-2020 Calcium [Mass/Vol] 10.1 mg/dL 8.2-10.2 [facility] Serum or plasma chloride jose surement (moles/volume)on 05-14-2020 Chloride [Moles/Vol] 101 mmol/L 95-114 [facility] Serum or plasma creatinine m easurement with calculation of estimated glomerular filtron 05-14-2020 Creatinine [Mass/Vol] 0.60 mg/dL 0.44-1.03 [facility] Serum or plasma glucose octavio urement (mass/volume)on 05-14-2020 Glucose [Mass/Vol] 94 mg/dL 70-100 [facility] Comment on above: ADA recommended refe rence rangeRandom Glucose Reference Range is dependent on time and content of last meal. Glucose of more than 200 mg/dL in a nonstressed, ambulatory subject supports the diagnosis of Diabetes Mellitus. Serum or plasma potassium me asurement (moles/volume)on 05-14-2020 Potassium [Moles/Vol] 4.3 mmol/L 3.5-5.1 [facility] Serum or plasma sodium measu rement (moles/volume)on 05-14-2020 Sodium [Moles/Vol] 140 mmol/L 136-146 [facility] Serum or plasma total carbon dioxide measurement (moles/volume)on 05-14-2020 CO2 [Moles/Vol] 27.2 mmol/L 22.0-30.0 [facility] Serum or plasma urea nitroge n measurement (mass/volume)on 05-14-2020 Urea nitrogen [Mass/Vol] 7 mg/dL 9- [facility] Vital Signs Date Time Vital Sign Value Performing Clinician Facility 02-26-2025 15:08-0400 Body height 160 cm Jacky Brandon MD Work Phone: [facility] 02-26-2025 15:08-0400 Body mass index (BMI) [Ratio] 37.91 kg/m2 Jacky Brandon MD Work Phone: [facility] 02-26-2025 15:08-0400 Body weight 97.07 kg Jacky Brandon MD Work Phone: [facility] 02-26-2025 15:08-0400 Diastolic blood pressure 63 mm[Hg] Jacky Brandon MD Work Phone: [facility] 02-26-2025 15:08-0400 Heart rate 109 /min Jacky Brandon MD Work Phone: [facility] 02-26-2025 15:08-0400 Systolic blood pressure 85 mm[Hg] Jacky Brandon MD Work Phone: [facility] 12-19-2024 15:03-0400 Body height 160 cm Jacky Brandon MD Work Phone: [facility] 12-19-2024 15:03-0400 Body mass index (BMI) [Ratio] 41.1 kg/m2 Jacky Brandon MD Work Phone: [facility] 12-19-2024 15:03-0400 Body weight 105.23 kg Jacky Brandon MD Work Phone: [facility] 12-19-2024 15:03-0400 Diastolic blood pressure 69 mm[Hg] Jacky Brandon MD Work Phone: [facility] 12-19-2024 15:03-0400 Heart rate 96 /min Jacky Brandon MD Work Phone: [facility] 12-19-2024 15:03-0400 Systolic blood pressure 115 mm[Hg] Jacky Brandon MD Work Phone: [facility] 09-26-2024 14:59-0400 Body height 160 cm Los Sarmiento MD Work Phone: [facility] 09-26-2024 14:59-0400 Body mass index (BMI) [Ratio] 38.14 kg/m2 Los Sarmiento MD Work Phone: [facility] 09-26-2024 14:59-0400 Body weight 97.65 kg Los Sarmiento MD Work Phone: [facility] 09-26-2024 14:59-0400 Diastolic blood pressure 95 mm[Hg] Los Sarmiento MD Work Phone: [facility] 09-26-2024 14:59-0400 Heart rate 96 /min Los Sarmiento MD Work Phone: [facility] 09-26-2024 14:59-0400 Respiratory rate 16 /min Los Sarmiento MD Work Phone: [facility] 09-26-2024 14:59-0400 SaO2% (BldA) [Mass fraction] 98 % Los Sarmiento MD Work Phone: [facility] 09-26-2024 14:59-0400 Systolic blood pressure 155 mm[Hg] Los Sarmiento MD Work Phone: [facility] 08-17-2022 16:00-0400 Body height 160.02 cm Gina Blades Other [employer] Other 08-17-2022 16:00-0400 Body mass index (BMI) [Ratio] 40.56 kg/m2 Gina Blades Other [employer] Other 08-17-2022 16:00-0400 Body weight 103.87 kg Gina Blades Other [employer] Other 08-17-2022 16:00-0400 Diastolic blood pressure 82 mm[Hg] Gina Blades Other [employer] Other 08-17-2022 16:00-0400 Systolic blood pressure 126 mm[Hg] Gina Blades Other [employer] Other Encounters Encounter Date Encounter Type Care Provider Facility Start: 03-02-2025 End: 03-02-2025 Clinisync Result Encounter Jacky Bradnon MD Work Phone: [facility] Unsolicited Start: 03-02-2025 End: 03-02-2025 Clinisync Result Encounter Jacky Brandon MD Work Phone: [facility] Unsolicited Start: 02-26-2025 End: 02-26-2025 Office outpatient visit 40 minutes Jacky Brandon MD Work Phone: [facility] Comment on above: Chronic maxillary si nusitis (Primary Dx) Start: 02-26-2025 End: 02-26-2025 ambulatory JACKY BRANDON Not Available Start: 02-26-2025 End: 02-26-2025 Annamaria Brandon MD Work Phone: [facility] Start: 02-26-2025 End: 02-26-2025 Annamaria Brandon MD Work Phone: [facility] Start: 02-16-2025 End: 02-16-2025 Clinisync Result Encounter Jacky Brandon MD Work Phone: [facility] Unsolicited Start: 02-16-2025 End: 02-16-2025 Clinisync Result Encounter Jacky Brandon MD Work Phone: [facility] Unsolicited Start: 02-05-2025 End: 02-05-2025 ambulatory Aaron Mosqueda MD Facility:[facility] Start: 12-19-2024 End: 12-19-2024 Office outpatient new 45 minutes Jacky Brandon MD Work Phone: [facility] Comment on above: Phantosmia (Primary Dx); Chronic maxillary sinusitis; History of MRSA infection Start: 12-19-2024 End: 12-19-2024 ambulatory JACKY BRANDON Not Available Start: 12-19-2024 End: 12-19-2024 Bamboo flowsheet Jacky Brandon MD Work Phone: [facility] Start: 12-19-2024 End: 12-19-2024 Bamboo flowsheet Jacky Brandon MD Work Phone: [facility] Start: 09-26-2024 End: 09-26-2024 Patient encounter procedure Los Sarmiento MD Work Phone: [facility] Comment on above: Spinal stenosis of c ervical region (Primary Dx); Lumbar radiculopathy; Adhesive arachnoiditis (HCC) Start: 09-26-2024 ambulatory LOS Rob ity:[facility] Start: 08-28-2024 End: 08-28-2024 ambulatory Aaron Mosqueda MD Facility:[facility] Start: 06-22-2024 End: 06-23-2024 Telephone encounter Los Sarmiento MD Work Phone: Neurology Comment on above: Orders Start: 06-16-2024 End: 06-16-2024 ambulatory Los Sarmiento MD Work Phone: [facility] Comment on above: Lumbar radiculopathy (Primary Dx) Start: 06-16-2024 End: 06-16-2024 Telemedicine consultation with patient Los Sarmiento MD Work Phone: [facility] Start: 06-09-2024 ambulatory ABY MARK Fac ility:[facility] Start: 04-24-2024 End: 04-24-2024 ambulatory Aaron Mosqueda MD Facility:[facility] Start: 03-27-2024 End: 03-27-2024 ambulatory Aaron Mosqueda MD Facility:[facility] Start: 03-06-2024 End: 03-10-2024 Chart abstracting Los Sarmiento MD Work Phone: Neurology Start: 10-27-2022 ambulatory NARENDRANATH LAKSHMIPATHY . Facility:[facility] Start: 10-13-2022 End: 10-13-2022 ambulatory NARENDRANATH LAKSHMIPATHY . Facility:[facility] Start: 10-06-2022 End: 10-07-2022 ambulatory NARENDRANATH LAKSHMIPATHY . Facility:[facility] Start: 09-08-2022 End: 09-08-2022 ambulatory Gina Guerrero Other [facility] [employer] Other Start: 09-08-2022 Telephone encounter Gina Guerrero [facility] Start: 09-01-2022 End: 09-02-2022 ambulatory NARENDRANATH LAKSHMIPATHY . Facility:[facility] Start: 08-17-2022 End: 08-17-2022 Patient encounter procedure DO Roberto Roth Work Phone: [facility] Work Phone: Start: 08-17-2022 End: 08-17-2022 ambulatory DO Roberto Roth Work Phone: [facility] Work Phone: Start: 08-17-2022 Office outpatient ne w 45 minutes Gina Guerrero [facility] Start: 07-16-2022 End: 07-17-2022 ambulatory DO Roberto Roth Work Phone: [facility] Work Phone: Start: 07-16-2022 End: 07-16-2022 Patient encounter procedure DO Roberto Roth Work Phone: [facility]-Lab [address] Work Phone: Start: 07-03-2022 End: 07-03-2022 ambulatory DO Roberto Roth Work Phone: [facility] Work Phone: Start: 07-03-2022 End: 07-03-2022 Patient encounter procedure DO Roberto Roth Work Phone: [facility] [place] Work Phone: Start: 06-23-2022 End: 06-23-[address] HOOD RAUSCH . Facility:[facility] Start: 05-29-2022 End: 05-30-[address] HOOD RAUSCH . Facility:[facility] Start: 05-14-2022 End: 05-15-2022 ambulatory ADA SINGH . Facility:[facility] Start: 03-12-2022 End: 03-13-[address] HOOD RAUSCH . Facility:[facility] Start: 02-13-2022 Encounter for preprocedural laboratory examination DR HOOD RAUSCH . [facility] Start: 02-10-2022 End: 02-10-[address] HOOD RAUSCH . Facility:[facility] Start: 02-06-2022 End: 02-07-[address] HOOD RAUSCH . Facility:[facility] Start: 02-06-2022 End: 02-07-2022 Encounter for preprocedural laboratory examination DR HOOD RAUSCH . Facility:[facility] Start: 02-03-2022 End: 02-03-[address] HOOD RAUSCH . Facility:[facility] Start: 01-31-2022 End: 01-31-2022 Patient encounter procedure DO Roberto Roth Work Phone: [facility] COVID Testing Start: 01-16-[address] HOOD RAUSCH . Faci lity:[facility] Start: 01-07-2022 End: 01-08-[address] HOOD RAUSCH . Facility: Start: 05-20-2020 End: 05-20-2020 Patient encounter procedure Roberto Roth -Pre-Surgical Testing Start: 05-14-2020 End: 05-14-2020 Patient encounter procedure Roberto Roth -Pre-Surgical Testing Start: 04-26-2020 End: 04-26-2020 Patient encounter procedure Roberto Roth -[facility] [place] Procedures Date Procedure Procedure Detail Performing Clinician Start: 03-02-2025 XR CHEST 2V Jacky do MD Work Phone: Start: 03-02-2025 ALL CBC WITH AUTO DIFF Jacky Brandon MD Work Phone: Start: 03-02-2025 ECG 12-LEAD Jacky do MD Work Phone: Start: 02-16-2025 CT SINUS WO CON Jacky Brandon MD Work Phone: Start: 07-16-2022 Urine culture DO Roberto reyes Work Phone: Start: 07-03-2022 X-ray of lumbar spin e, six views including bending views DO Roberto Roth Work Phone: Start: 04-26-2020 X-ray of lumbar spin e, four views Roberto Roth Plan of Treatment Date Care Activity Detail Author Start: 03-16-2025 End: 03-16-2025 Patient encounter procedure 03/16/2025 3:40 PM EDT Office Visit [facility] [address] [place] [address] Jacky Brandon MD [address] [place] [address] [facility] Start: 02-26-2025 End: 02-26-2025 Patient encounter procedure [facility] Comment on above: Arrived Start: 01-29-2025 Influenza vaccination C [facility] Start: 01-23-2025 End: 01-23-2025 Patient encounter procedure 01/23/2025 3:20 PM EDT Office Visit [facility] [address] [facility] [address] [place] [address] Jacky Brandon MD [address] [facility] [address] [place] [address] [facility] Start: 12-19-2024 End: 12-19-2025 Aerobic culture Aerobic culture Microbiology Routine Phantosmia Expected: 12/19/2024 (Approximate), Expires: 12/19/2025 [facility] Work Phone: Comment on above: Expected: 12/19/2024 (Approximate), Expires: 12/19/2025 Start: 01-30-2024 Covid-19 Vaccine ( season) Covid-19 Vaccine ( season) [facility] Start: 01-30-2024 Influenza vaccination Influenza Vacc ine (#1) [facility] Start: 08-17-2022 Plain X-ray of right hip XR hip RT min 2V(w/wo pelvis)* [facility] Start: 08-17-2022 XR Hip - right 2 Views [facility] Start: 07-16-2022 Bacteria identified in Urine by Culture [facility] Start: 07-16-2022 Hemolytic complement CH50 level [facility] Start: 07-16-2022 [facility] Start: 2018 Shingrix Vaccine (1 of 2) Shingrix Vaccine (1 of 2) [facility] Start: 2013 Diabetes Screening Diabetes Screenin g [facility] Start: 2013 Lipid panel Lipid Screening [facility] Start: 2013 Screening for malignant neoplasm of colon [facility] Start: 2008 Screening for malignant neoplasm of breast [facility] Start: 1998 Screening for malignant neoplasm of cervix [facility] Start: 1989 Screening for malignant neoplasm of cervix [facility] Start: 10-03-1987 Hepatitis B Vaccine (1 of 3 - 19+ 3-dose series) Hepatitis B Vaccine (1 of 3 - 19+ 3-dose series) [facility] Start: 10-03-1987 Pneumococcal Vaccine : 50+ (1 of 2 - PCV) Pneumococcal Vaccine: 50+ (1 of 2 - PCV) [facility] Start: 10-03-1987 Urine microalbumin profile DTaP,Tdap,Td Vaccine (1 - Tdap) [facility] Start: 1986 Anxiety Screening Anxiety Screening [facility] Start: 1986 Depression Screening Depression Scre ening [facility] Start: 1986 Hepatitis C screening Hepatitis C Sc reening [facility] Start: 1986 HIV screening HIV Screening [facility] Start: 1968 Screening for malignant neoplasm of colon [facility] Complement C3 [Mass/volume] in Serum or Plasma [facility] Complement C4 [Mass/volume] in Serum or Plasma [facility] End: 07-23-2025 CT Lumbar spine WO contrast CT LUMBAR SPINE WO IVCON Radiology Routine Radiculopathy of lumbar region Spinal stenosis of lumbar region without neurogenic claudication 1 Occurrences starting 06/23/2024 until 07/23/2025 [facility] Work Phone: Comment on above: 1 Occurrences starti ng 06/23/2024 until 07/23/2025 End: 06-23-2025 EMG(NEURO/NI) EMG(NEURO/NI) EMG Routine Radiculopathy of lumbar region Spinal stenosis of lumbar region without neurogenic claudication Right foot drop 1 Occurrences starting 06/23/2024 until 06/23/2025 [facility] Comment on above: 1 Occurrences starti ng 06/23/2024 until 06/23/2025 Homogenous nuclear A b pattern [Titer] in [facility] End: 10-26-2025 MR Cervical spine WO contrast MRI CERVICAL SPINE WO IVCON Radiology Routine Spinal stenosis of cervical region 1 Occurrences starting 09/26/2024 until 10/26/2025 [facility] Work Phone: Comment on above: 1 Occurrences starti ng 09/26/2024 until 10/26/2025 Nuclear Ab [Titer] i n [facility] End: 07-23-2025 XR Lumbar spine Views W flexion and W extension XR LUMBAR MOTION 4V AP/LAT/ FLEX/EXT Radiology Routine Radiculopathy of lumbar region Spinal stenosis of lumbar region without neurogenic claudication 1 Occurrences starting 06/23/2024 until 07/23/2025 [facility] Comment on above: 1 Occurrences starti ng 06/23/2024 until 07/23/2025 Immunizations Immunization Date Immunization Notes Care Provider Jah dasilva 11-09-2020 COVID-19 mRNA-1273 (Moderna) DO Roberto Roth Work Phone: [facility] 10-12-2020 COVID-19 mRNA-1273 (Moderna) DO Roberto Roth Work Phone: [facility] 05-23-2020 influenza, injectabl e, quadrivalent, preservative free DO Roberto Roth Work Phone: [facility] 05-23-2020 influenza virus vaccine, unspecified formulation Los Sarmiento MD Work Phone: [facility] 03-22-2019 influenza, injectabl e, quadrivalent, preservative free Jacky Brandon MD Work Phone: [facility] Payers Date Payer Category Payer [facility] [id number] 2023 Unknown [id number] 2023 Unknown [id number] 2022 Self-pay [id number] 1968 Unknown [id number] 2.16.84 0.1.643882.3.579.2.593 1968 Unknown [id number] 2.16.84 0.1.403297.3.579.2.593 1968 Unknown [id number] 2.16.84 0.1.700528.3.579.2.593 1968 Unknown [id number] 2.16.84 0.1.108841.3.579.2.593 1968 Unknown [id number] 2.16.84 0.1.829664.3.579.2.593 1968 Unknown [id number] 2.16.84 0.1.350199.3.579.2.593 1968 Unknown [id number] 2.16.84 0.1.909939.3.579.2.593 1968 Unknown [id number] 2.16.84 0.1.230319.3.579.2.593 1968 Unknown [id number] 2.16.84 0.1.552473.3.579.2.593 1968 Unknown [id number] 2.16.84 0.1.914509.3.579.2.593 1968 Unknown [id number] 2.16.84 0.1.674698.3.579.2.593 1968 Unknown [id number] 2.16.84 0.1.885968.3.579.2.593 1968 Unknown [id number] 2.16.84 0.1.202823.3.579.2.593 1968 Unknown [id number] 2.16.84 0.1.624626.3.579.2.593 1968 Unknown [id number] 2.16.84 0.1.510561.3.579.2.593 1968 Unknown [id number] 2.16. 840.1.652834.3.579.2.196 1968 Unknown [id number] 2.16. 840.1.927267.3.579.2. 1968 Unknown [id number] 2.16. 840.1.559763.3.579.2.196 1968 Unknown [id number] 2.16. 840.1.276471.3.579.2.196 1968 Unknown [id number] 2.16.8 40.1.505265.3.579.2.1259 1968 Unknown [id number] 2.16.8 40.1.439822.3.579.2.1259 1959 Unknown [id number] Unknown [id number] Unknown [id number] 2.16.8 40.1.109830.3.579.2.531 Social History Date Type Detail Facility Start: 05-14-2020 End: 06-23-2021 Tobacco smoking status NCIS Smoker (finding) [facility] Start: 1970 Sex Assigned At Female F [facility] Start: 06-09-2024 End: 02-26-2025 History of tobacco use [facility] Tobacco smoking stat us [facility] Tobacco smoking consumption unknown [facility] Start: 1970 Sex assigned at Not on file C [facility] Start: 06-09-2024 End: 12-19-2024 Tobacco smoking status [facility] Smokes tobacco daily [facility] History of tobacco use Cigarette Smoker C [facility] Start: 06-09-2024 End: 12-19-2024 Tobacco use and exposure Smokeless tobacco non-user [facility] Start: 06-09-2024 End: 02-26-2025 Alcoholic beverage intake Ex-drinker (finding) [facility] Start: 06-09-2024 End: 02-26-2025 History of Social function [facility] Adult Depression Screening Assessment 3 [facility] Medical Equipment Procedure Code Equipment Code Equipment Origin al Text Equipment Identifier Dates Fusion, spine, lumbar, XLIF CANCELLOUS COARSE 7.5CC FDA Start: 05-22-2020 Fusion, spine, lumbar, XLIF Bone-screw internal spinal fixation system, non-sterile ()[id number] FDA Start: 05-22-2020 Fusion, spine, lumbar, XLIF Bone-screw internal spinal fixation system, non-sterile ()[id number] FDA Start: 05-22-2020 Fusion, spine, lumbar, XLIF Bone-screw internal spinal fixation system, non-sterile ()[id number] FDA Start: 05-22-2020 Fusion, spine, lumbar, XLIF CANCELLOUS COARSE 7.5CC FDA Start: 05-22-2020 Fusion, spine, lumbar, XLIF Bone-screw internal spinal fixation system, non-sterile ()[id number] FDA Start: 05-22-2020 Fusion, spine, lumbar, XLIF Bone-screw internal spinal fixation system, non-sterile ()[id number] FDA Start: 05-22-2020 Fusion, spine, lumbar, XLIF Polymeric spinal fusion cage, non-sterile ()[id number] FDA Start: 05-22-2020 Fusion, spine, lumbar, XLIF Dura mater graft, bovine ()[id number] FDA Start: 05-22-2020 Fusion, spine, lumbar, XLIF MAS REDUCTION FIXATION ADD LEV FDA Start: 05-22-2020 Fusion, spine, lumbar, XLIF XLIF 1 LEVEL MAS REDUCTION FDA Start: 05-22-2020 Fusion, spine, lumbar, XLIF Spinal fusion graft kit ()[id number] FDA Start: 05-22-2020 Fusion, spine, lumbar, XLIF Bone matrix implant, human-derived ()[id number] FDA Start: 05-22-2020 Fusion, spine, lumbar, XLIF Metallic spinal fusion cage, non-sterile ()[id number] FDA Start: 05-22-2020 Fusion, spine, lumbar, XLIF Bone-screw internal spinal fixation system, non-sterile ()[id number] FDA Start: 05-22-2020 Fusion, spine, lumbar, XLIF [...] Remy Brandon MD - 12/19/2024 3:00 PM EDLos Murdock MD - 09/26/2024 3:00 PM EDTTelephone Encounter [...] evening and 600 mg before bedtime. HYDROcodone-acetaminophen ([place]) 7.5-325 MG tablet TAKE ONE TABLET BY [...] who expressed understanding. documented in this encounter [facility] 12-19-2024 History of Presen t illness Narrative [...] plan surgical tx. documented in this encounter [facility] 09-26-2024 History of Presen t illness [...] gabapentin, meloxicam, voltaren cream, heat, mdp x1 [place] - 3x/dy REVIEW OF SYSTEMS: GENERAL: No [...] 10 mg by mouth daily at bedtime. iaroejakahi-zokqwtyjj-cyuogexx (TRELEGY ELLIPTA) 100-62.5-25 mcg inhalation powder Inhale [...] Lumbar radiculopathy (G03.9) Adhesive arachnoiditis (HCC) Kim Mendel Hill has a condition that requires further [...] with more than 50% of the total rahh-vb-wzmq time of the visit in counseling / [...] 2024 3:08 PM documented in this encounter [facility] 06-23-2024 Telephone encounter Note Neuro SPINE CARE COORDINATION QUICK NOTE Called patient, no answer. Left non-detailed VM on non-identified VM box instructing patient to call office or check MYC messages for details. Ness Corbett RN June 23, 2024 11:12 AM [facility] 06-23-2024 Miscellaneous Notes Neuro SPINE CARE [...] Pt can schedule. documented in this encounter [facility] 06-22-2024 Telephone encounter Note Pt called asking for orders informed by on OV 06/16/24. Discussed with patient will order CT and EMG as well as standing xray Pls send MyC msg once orders are ready so that Pt can schedule. [facility] 06-16-2024 Note HNO ID: [id number] Author: LOS SARMIENTO MD Service: ? Author Type: Physician Type: Progress Notes Filed: 06/16/2024 17:55 Note Text: Rescheduled, no charge [facility] 06-16-2024 Note HNO ID: [id number] Author: LOS SARMIENTO MD Service: ? Author Type: Physician Type: Progress Notes Filed: 06/16/2024 09:36 Note Text: I have communicated my name and active licensure. The patient's identity and physical location were verified at the time of this visit. Either the patient or their legal entry level marketing representative has been informed of the risks [...] with more than 50% of the total epig-ol-oynx time of the visit in counseling / coordination of care. [facility] 06-16-2024 History of Presen t illness Narrative I have communicated my name and active licensure. The patient's identity and physical location were verified at the time of this visit. Either the patient or their legal entry level marketing representative has been informed of the risks [...] with more than 50% of the total ksox-ox-jyat time of the visit in counseling / coordination of care. documented in this encounter [facility] 03-10-2024 Note HNO ID: [id number] Author: KENAN GODOY APRN.SEO TEAM LEAD Service: ? Author Type: Nurse Practitioner Type: [...] position Provider Dr Aby Mark Requesting ronnie Campos sur - lumbar - [place] - 2 cages CMT: Inj, gabapentin, meloxicam, voltaren cream, heat, mdp x1 [place] - 3x/dy Studies (Reports unless indicated) Mri lumbar report Lumbarization S1 S/p :L4-S1 fusion L5/S1 mod b/l FS S1/2 paraspinal muscle mod to severe atrophy Disposition: Please schedule with dr sarmiento if patient would like soon can schedule with myself. Please instruct patient to bring copy of imaging and injection history for review. [facility] 03-10-2024 History of Presen t [...] gabapentin, meloxicam, voltaren cream, heat, mdp x1 [place] - 3x/dy Studies (Reports unless indicated) Mri lumbar report Lumbarization S1 S/p :L4-S1 fusion L5/S1 mod b/l FS S1/2 paraspinal muscle mod to severe atrophy Disposition: Please schedule with dr sarmiento if patient would like soon can schedule with myself. Please instruct patient to bring copy of imaging and injection history for review. Patient name: iKm Hill Are you being referred by a [facility] Spine Health Provider or Pain Management Provider at [facility]? No If answer is YES please [...] the facility where the MRI/CT/myelogram was completed: [place] [address] MRI/CT/myelogram viewable in Epic: No If not, please provide [phone] to fax in imaging reports for review. Also, please inform patient to hand carry imaging disc to appointment. XR (spine) within 12 months: Yes If YES, please ask for the name/address of the facility where the XR was completed: [facility] [address] [place] [address] Dr. Freeman's patients: Have you had previous [...] therapy was completed [facility] [place] - [address] [place] [address] Have you tried any other kinds of non-surgical treatments in the last 12 months? (For example: NSAIDS, muscle relaxants, analgesics, oral steroids, Chiropractor, Acupuncture): gabapentin, meloxicam, voltaren cream, heat, mdp x1 4. Are you currently taking daily prescribed narcotic medications for your current symptoms (For example Oxycodone, Hydrocodone, Tramadol, Morphine, Other)? Yes [place] - 3x/dy 5. Have you had previous spinal surgery for this same symptoms? Yes If YES please ask for the name of facility/address of where the surgery was completed: [facility] - 2 cages Additional Comments [phone] documented in this encounter [facility] 03-06-2024 Note HNO ID: [id number] Author: ?, ?, ? Service: ? Author Type: ? Type: Progress Notes Filed: 03/10/2024 16:07 Note Text: Patient name: Kim Hill Are you being referred by a [facility] Provider or Pain Management Provider at [facility]? No If answer is YES please [...] the facility where the MRI/CT/myelogram was completed: [place] [address] [place] [address] MRI/CT/myelogram viewable in Epic: No If not, please provide [phone] to fax in imaging reports for review. Also, please inform patient to hand carry imaging disc to appointment. XR (spine) within 12 months: Yes If YES,? please ask for the name/address of the facility where the XR was completed: [place] [address] Dr. Freeman's patients: Have you had previous [...] was completed [facility] [place] [address] Have you tried any other kinds of non-surgical treatments in the last 12 months? (For example: NSAIDS, muscle relaxants, analgesics, oral steroids, Chiropractor, Acupuncture): gabapentin, meloxicam, voltaren cream, heat, mdp x1 4. Are you currently taking daily prescribed narcotic medications for your current symptoms (For example Oxycodone, Hydrocodone, Tramadol, Morphine, Other)? Yes [place] - 3x/dy 5. Have you had previous spinal surgery for this same symptoms? Yes If YES? please ask for the name of facility/address of where the surgery was completed: [address] [place] [address] - cages Additional Comments [phone] [facility] 05-09-2023 Note CONSULTATION CONSULTATION DATE: 10/06/2022 TO: Roberto [...] pill b.i.d. and to continue to use [place] 7.5 mg t.i.d. We did reduce the use at her last visit from 90 pills a month to 80 pills to last one month's time. She appears to be tolerating this transition quite well. I have asked her to continue with gabapentin 600 mg t.i.d. Her JOYCE on today's visit is 28. She reports the [place] does improve her quality of life, level of functioning and sleep pattern, and she denies any side effects. As part of providing excellent, safe, comprehensive care, the following was completed at our patient's visit: 1. A medication reconciliation and review to ensure accurate knowledge of current/active medications, including asking our patients to inform us about any jmfo-mmo-xxgxcet medications or herbal remedies/nutritional supplements/alternative remedies. 2. [...] with their primary care provider. [facility] 09-01-2022 Note CONSULTATION CONSULTATION DATE: 09/01/2022 TO: [...] our patients to inform us about any boyb-axd-gqnonie medications or herbal remedies/nutritional supplements/alternative remedies. 2. [...] with their primary care provider. [facility] 08-17-2022 Evaluation note Encounter Date Diagnosis Assessment Notes Jul, Other chronic pain (ICD-10 - G89.29) Jul, Low back pain, unspecified (ICD-10 - M54.50) [employer] Other 02-16-2023 NoteCONSULTATION CONSULTATION DATE: 07/16/2022 HISTORY OF PRESENT ILLNESS: This is a 51-year-old female who returns to the clinic status post bilateral SI joint injection completed on 06/23/2022. The patient received 80% relief for one day and on day two felt worse than her normal baseline pain. Today, she rates her pain 8/10. Medications include gabapentin 600 mg t.i.d., [place] 7.5/325 b.i.d. and Mobic 15 mg daily. [...] her medications; Mobic 15 mg daily and [place] 7.5/325 b.i.d. She will return to the clinic in six weeks' time, in which we will, in addition to her PCPs office, review the MRI and form a plan of care at that time. Patient is in agreement to this plan.[facility] [id number] Note CONSULTATION CONSULTATION DATE: 05/29/2022 HISTORY OF [...] down. Medications include gabapentin 600 mg t.i.d., [place] 7.5/325 b.i.d. and diclofenac 50 mg daily. [...] and will be followed up thereafter.[facility] [id number] NoteCONSULTATION CONSULTATION DATE: 05/14/2022 HISTORY OF PRESENT [...] as well as gabapentin 600 mg t.i.d., [place] 7.5/325 t.i.d. At her last appointment, she [...] Refills for gabapentin 600 mg t.i.d. and [place] 7.5/325 b.i.d. will be sent to her pharmacy. Patient agrees to move forward with the procedure. She will followed up in the clinic thereafter.[facility] [id number] NotePAIN MANAGEMENT CONSULTATION CONSULTATION DATE: 05/14/2022 CHIEF [...] a sacroiliac joint injection under fluoroscopy.[facility] [id number] NoteCONSULTATION CONSULTATION DATE: 03/12/2022 ADDENDUM DIAGNOSIS: Lumbar spondylosis, lumbar degenerative disc disease, chronic lower back pain and a history of a lumbar fusion.[facility] [id number] Note CONSULTATION CONSULTATION DATE: 03/12/2022 This is [...] Current medications include gabapentin 600 mg t.i.d., [place] 7.5/325 b.i.d., diclofenac cream and ibuprofen. She [...] with her vitamins as well as her [place]. The dose of frequency will not be changed. We will have the patient return to the clinic in two months' time for re-evaluation. The patient is inquiring about an increase of her [place], possibly during the winter months. There will be no changes today.[facility] [id number] NoteCONSULTATION CONSULTATION DATE: 01/07/2022 This is a [...] Current medications include gabapentin 600 mg b.i.d., [place] 7.5/325 b.i.d., diclofenac topical, multivitamin regimen and ibuprofen p.r.n. She has tried diclofenac in the past but was unable to tolerate it due to stomach issues but low-dose ibuprofen she can tolerate. She is needing [place] and gabapentin refill today. REVIEW OF SYSTEMS, [...] subsequently move to the left. Refill for [place] 7.5/325 b.i.d. and gabapentin 600 mg b.i.d. will be sent to the pharmacy. The patient is encouraged to increase magnesium in her vitamin regimen as well as menthol heat rub, seated stretches that were demonstrated and heat application. The patient agrees with the plan of care and would like to move forward and she will follow-up in the clinic post procedure.[facility] System[facility] noteNo assessment information [facility] Work Phone: Evaluation noteNo InformationNoCrozer[facility] [employer] Other evaluation note* Diagnosis Lumbar radiculopathy- Primary Thoracic or lumbosacral neuritis or radiculitis, unspecified [facility]* Diagnosis Radiculopathy of lumbar region- Primary Thoracic or lumbosacral neuritis or radiculitis, unspecified Spinal stenosis of lumbar region without neurogenic claudication Spinal stenosis, lumbar region, without neurogenic claudication Right foot drop Other acquired deformity of ankle and foot documented [facility] this encounter [facility]* Diagnosis Spinal stenosis of cervical region- Primary Spinal stenosis in cervical region Lumbar radiculopathy Thoracic or lumbosacral neuritis or radiculitis, unspecified Adhesive arachnoiditis (HCC) Meningitis, unspecified [facility] Diagnosis Phantosmia- Primary Chronic maxillary sinusitis History of MRSA infection [facility] Chronic maxillary sinusitis- Primary [facility] [...] see above Hospitalization History 4 child births [employer] Other reason for referral (narrative)* Diagnostic Procedure Only (Routine) - New Request Specialty Diagnoses / Procedures Referred By Claritza schumacher Referred To Contact XR IMAGING Diagnoses Radiculopathy of lumbar region Spinal stenosis of lumbar region without neurogenic claudication Procedures XR LUMBAR MOTION 4V AP/LAT/ FLEX/EXT RADEX SPINE LUMBOSACRAL MINIMUM 4 VIEWS Kenan Godoy APRN.CNP [facility] [place] [address] Xr Imaging [place] [address] Referral ID Status Reason Start Date Expiration Date Visits Requested Visits Authorized [id number] New Request Auto-Generat ed Referral 06/23/2024 07/23/2025 1 1 * Outpatient Procedure (Routine) - New Request Specialty Diagnoses / Procedures Referred By Claritza schumacher Referred To Contact [facility] Diagnoses Radiculopathy of lumbar region Spinal stenosis of lumbar region without neurogenic claudication Right foot drop Procedures EMG(NEURO/NI) NERVE CONDUCTION STUDIES 9-10 STUDIES Kenan Godoy APRN.CNP [address] [place] [address] Neurological [place] [address] [place] [address] Referral ID Status Reason Start Date Expiration Date Visits Requested Visits Authorized [id number] New Request Auto-Generat ed Referral 06/23/2024 06/23/2025 1 1 * MRI/CT (Routine) - New Request Specialty Diagnoses / Procedures Referred By Claritza schumacher Referred To Contact CT IMAGING Diagnoses Radiculopathy of lumbar region Spinal stenosis of lumbar region without neurogenic claudication Procedures CT LUMBAR SPINE WO IVCON CT LUMBAR SPINE W/O CONTRAST MATERIAL Kenan Godoy APRN.CNP [id number] Imaging [facility] Referral ID Status Reason Start Date Expiration Date Visits Requested Visits Authorized [id number] New Request Auto-Generat ed Referral 06/23/2024 07/23/2025 1 1 [facility] Advance Directives No Advanced Directives Records [...] Active Gina Guerrero MD Attending Provider Active Plumbing Contractor Relationship Specialty Start Date End Date Aby Mark CNP [address] [place] [address] Referring Family Medicine 03/02/24 Plumbing Contractor Relationship Specialty Start Date End Date Aby Mark CNP [address] [place] [id number] Referring Family Medicine 03/02/24 Plumbing Contractor Relationship Specialty Start Date End Date Aby Mark CNP [address] [place] [address] Referring Family Medicine 03/02/24 Plumbing Contractor Relationship Specialty Start Date End Date Aby Mark CNP [address] [place] [address] Referring Family Medicine 03/02/24 Plumbing Contractor Relationship Specialty [place] [address] [place] [id number] PCP - General Cardiology 12/05/24 Plumbing Contractor Relationship Specialty [place] [address] [place] [id number] PCP - General Cardiology 12/05/24 Plumbing Contractor Relationship Specialty Start [place] [address] [place] [address] PCP - General Cardiology 12/05/24 Plumbing Contractor Relationship Specialty Start [place] [address] [place] [address] PCP - General Cardiology 12/05/24 Plumbing Contractor Relationship Specialty Start [place] [address] [place] [address] PCP - General Cardiology 12/05/24 Goals (unrecognized section and content) Goals may be documented in a n alternate sectionGoals may be documented in an alternate sectionGoals may be documented in an alternate sectionGoals may be documented in an alternate sectionNo InformationNo Information INFORMATION SOURCE (unrecogn ized section and content) DATE CREATED AUTHOR 08/01/2022 [facility] dical Specialist DATE CREATED AUTHOR AUTHOR'S ORGANIZ ATION 11/06/2022 [facility] DATE CREATED AUTHOR AUTHOR'S ORGANIZ ATION 11/24/2023 [facility] DATE CREATED AUTHOR AUTHOR'S ORGANIZ ATION 09/28/2024 [facility] DATE CREATED AUTHOR AUTHOR'S ORGANIZ ATION 02/11/2025 [facility] DATE CREATED AUTHOR AUTHOR'S ORGANIZ ATION 03/04/2025 [facility] Specialists EPIC REASON FOR VISIT [...] or prosecute any alcohol or drug abuse patient.[facility] the event this information is protected by the Federal Confidentiality of Alcohol and Drug Abuse Patient Records regulations: The Federal rules restrict any use of the information to criminally investigate or prosecute any alcohol or drug abuse patient.[facility] Hospital[facility] the event this information is protected by the Federal Confidentiality of Alcohol and Drug Abuse Patient Records regulations: The Federal rules restrict any use of the information to criminally investigate or prosecute any alcohol or drug abuse patient.[facility] the event this information is protected by the Federal Confidentiality of Alcohol and Drug Abuse Patient Records regulations: The Federal rules restrict any use of the information to criminally investigate or prosecute any alcohol or drug abuse patient.[facility] FOR RECORDS PERTAINING TO PATIENTS WHO [...] BE BASED ON THE PRIMARY CLINICAL RECORDS. [facility]. provides no warranty or guarantee of the accuracy or completeness of information in this document.
[2025-03-08 08:23] LABS: Anion Gap 14.0; Blood Urea Nitrogen 12.0 mg/dL (7.0-18.0); Calcium 9.9 mg/dL (8.5-10.1); Carbon Dioxide 30.3 mmol/L (21.0-32.0); Chloride 102 mmol/L (98-107); Estimated GFR (African America >60 (>=60 mL/min/1.73m^2); Estimated GFR (Non-African Ame >60 (>=60 mL/min/1.73m^2); Glucose 103 mg/dL (74-106); Potassium 4.3 mmol/L (3.5-5.1); Sodium 142 mmol/L (136-145)
[2025-03-08] MEDS: OXYMETAZOLINE HCL 0.05% NASAL SPRAY 30 SPRAY NS (10:10)
[2025-03-08] MEDS: LIDOCAINE HCL 1%-EPINEPHRINE 1:100,000 20 ML MDV 12 ML INJ (10:10)
[2025-03-08] MEDS: ACETAMINOPHEN 325 MG TABLET 650 MG PO (10:46)
== END 2025-03-08 12:00 | disposition home or self-care (01) ==
LOC: SURGOUT 07:57
PROVIDERS: Anesthesiology; PCP Nurse Practitioner Family; Visit Provider Otolaryngology
PROC: (CPT 160; principal; 2025-03-08 09:30)
DX: J32.0 Chronic maxillary sinusitis (principal); Z90.710 Acquired absence of both cervix and uterus; F17.210 Nicotine dependence, cigarettes, uncomplicated; J44.9 Chronic obstructive pulmonary disease, unspecified; I10 Essential (primary) hypertension; K21.9 Gastro-esophageal reflux disease without esophagitis; M06.9 Rheumatoid arthritis, unspecified; F41.9 Anxiety disorder, unspecified
CPT/HCPCS: 31267; 36415; 80048; 87070; 87075; 87186; 88305; 99999; J1100; J2250; J2405; J2704; J3010

== ENCOUNTER 2025-04-23 07:56 | Day surgery (SDC) | payer BC, SELFPAY ==
--- OUTSIDE RECORDS SUMMARY | 2025-04-23 07:58 | XMS_ITS | Clinical Summary ---
Author Organization [facility] tem Address [id number] [address] [place] [address] Care Team Providers Care Rig Supervisor Name Role Phone Unavailable Primary Care Provider Unavailabl e Social History Tobacco UseTypesPacks/DayYears UsedDateSmoking Tobacco: Never AssessedChildcare AnswerDate PgrtkwxxYpqragxdqKlgvhyb63/12/2019EmploymentAnswerDate Recorded IaqbpvkdqcVofaywr03/12/2019CommentsUnknownSex and Gender Information ValueDate RecordedSex Assigned at BirthNot on fileLegal AqjAizibk34/06/2015 11:23 AM EDTGender IdentityNot on fileSexual OrientationNot on file Plan of Treatment Not on file Medical Devices Not on file
--- OUTSIDE RECORDS SUMMARY | 2025-04-23 07:58 | XMS_ITS | Clinical Summary ---
Author Organization [facility] Address [address], [address] [place] [address] Care Team Providers Care Electronics Repair Technician Name Role Phone Aby Yu APRN - PARKER Primary Care Pro vider Allergies Active AllergyReactionsCriticalityNoted DateCommentsAmoxicillin-Pot Clavulanate Ahazstfa63/19/2024lavulanic TlazPkgwgqy23/17/6521NaqdhnqziocTzeihbe04/17/2021 Medications MedicationSigDispense QuantityRefillsLast FilledStart DateEnd DateStatus pantoprazole (PROTONIX) 40 MG tablet Take 1 tablet by mouth daily10/09/2023ctive lisinopril (PRINIVIL;ZESTRIL) 10 MG tablet Take 1 tablet by mouth dailyActive HYDROcodone-acetaminophen (NORCO) 7.5-325 MG per tablet TAKE 1 TAB ORALLY THREE TIMES A DAY NEEDED FOR PAIN MUST LAST 30 DAYS 11/19/2023ctive meloxicam (MOBIC) 15 MG tablet Take 1 tablet by mouth daily11/29/2023ctive gabapentin (NEURONTIN) 300 MG capsule Three times daily05/31/2020ctive montelukast (SINGULAIR) 10 MG tablet Take 1 tablet by mouth every vtzwwqo6509/14/2023ctive TRELEGY ELLIPTA 200-62.5-25 MCG/ACT AEPB inhaler INHALE 1 PUFF BY INHALATION ROUTE ONCE DAILY AT THE SAME TIME EACH DAY12/06/2023 Active albuterol sulfate HFA (PROVENTIL;VENTOLIN;PROAIR) 108 (90 Base) MCG/ACT inhaler Q3H05/31/2020ctive diclofenac (VOLTAREN) 0.1 % ophthalmic solution 1 drop 4 times dailyActive Social History Tobacco UseTypesPacks/DayYears UsedDateSmoking Tobacco: NeverSmokeless Tobacco: Never Tobacco Cessation:Counseling Given: Not Answered Alcohol UseStandard Drinks/WeekCommentsYes0 (1 standard drink = 0.6 oz pure alcohol)occasionalCommentsUnknownSex and Gender InformationValueDate RecordedSex Assigned at BirthNot on fileLegal VtyErcxuh01/10/2013 2:48 PM EST Gender IdentityNot on fileSexual OrientationNot on file Last Filed Vital Signs Vital SignReadingTime TakenCommentsBlood Bidynhhb655/8007 9:39 AM EDT Ecidl806112/17/2023 9:39 AM EDTTemperature--Respiratory Rumz606812/17/2023 9:39 AM EDTOxygen Saturation--Inhaled Oxygen Concentration--Iposxq84.9 kg (218 lb) 12/17/2023 9:39 AM CWSScwxvq556 cm (5' 3 )12/17/2023 9:39 AM EDTBody Mass Index 38.6207 9:39 AM EDT Plan of Treatment Health MaintenanceDue DateLast DoneCommentsDepression Ixsfen2210/02/1980HIV screen 10/03/1983Hepatitis C oprmuu1510/02/1986DTaP/Tdap/Td vaccine (1 - Tdap)10/03/1987 Hepatitis B vaccine (1 of 3 - 19+ 3-dose series)10/03/1987Breast cancer screen 10/02/20082200Vccans73/05/3238Jupelwohnjt40/05/2014Colorectal Cancer Screen 2013FIT/FOBT: Average risk2013Fecal-DNA (Cologuard): Average risk 2013Sigmoidoscopy/CT gtzojpddqldn05/05/2014Pneumococcal 50+ years Vaccine (1 of 1 - PCV)2018Shingles vaccine (1 of 2)2018Flu vaccine (#1) 5107/24/2019, 03/22/2019COVID-19 Vaccine (3 - 2024- season)2025 11/09/2020, 10/12/2020Hepatitis A vaccineAged OutNo longer eligible based on patient's age to complete this topicHib vaccineAged OutNo longer eligible based on patient's age to complete this topicMeningococcal (ACWY) vaccineAged OutNo longer eligible based on patient's age to complete this topicMeningococcal B vaccineAged OutNo longer eligible based on patient's age to complete this topic Polio vaccineAged OutNo longer eligible based on patient's age to complete this topic Insurance Care Teams Team MemberRelationshipSpecialtyStart DateEnd Date Aby Yu, YOVANI - ANGEL [address] [place] [address] PCP - GeneralFamnly Medicine10/07/23
--- OUTSIDE RECORDS SUMMARY | 2025-04-23 07:58 | XMS_ITS | Encounter Summary ---
Author Organization [facility] Address [address] [place] [address] Care Team Providers Care Flat Locker Name Role Phone Osvaldo Browne MD Primary Care Provider [phone] Encounter Details DateTypeDepartmentCare Team (Latest Contact Info)Xfeooentyop35/09/2025linisync Result Encounter [facility] Unsolicited Renu Beltrán MD [address] [facility] [address] [place] [address] Social History Tobacco UseTypesPacks/DayYears UsedDateSmoking Tobacco: Every DayCigarettes Smokeless Tobacco: NeverAlcohol UseStandard Drinks/WeekCommentsNot Currently0 (1 standard drink = 0.6 oz pure alcohol)CommentsUnknownSex and Gender InformationValueDate RecordedSex Assigned at BirthNot on fileLegal SexFemale 08/12/2022 6:48 PM EDTGender IdentityNot on fileSexual OrientationNot on file documented as of this encounter Plan of Treatment DateTypeDepartmentCare Team (Latest Contact Info)Uizdzpywrti28/25/2025 3:50 PM ESTOffice Visit [facility] [address] [place] [id number] Renu Beltrán MD [address] [place] [address] documented as of this encounter Procedures Procedure NamePriorityDate/TimeAssociated DiagnosisCommentsANAEROBIC CULTURE Minjzzn1403/08/2025 10:00 AM EDT AEROBIC UWWLJREPbhawgs62/09/2025 10:00 AM EDT documented in this encounter Results * (ABNORMAL) AEROBIC CULTURE (03/08/2025 10:00 AM EDT)ComponentValueRef Range Test MethodAnalysis TimePerformed AtPathologist SignatureAEROBIC CULTURE ??Aerobic Culture TBHAEROBIC CULTUREGrowth observed. Further testing to rule out possible pathogen(s)TBHAEROBIC CULTUREis in progress.TBHAEROBIC CULTURETBHAEROBIC CULTURE Growth observed. Further testing to rule out possible pathogen(s)TBHAEROBIC CULTUREis in progress.TBHAEROBIC CULTUREOrganism: Staphylococcus epidermidis : TBHAEROBIC CULTURE*ABNORMAL*TBHAEROBIC CULTUREBased on resistance to oxacillin this isolate would beTBHAEROBIC CULTUREresistant to all currently available beta-lactamTBHAEROBIC CULTUREantimicrobial agents, with the exception of the newerTBHAEROBIC CULTUREcephalosporins with anti-MRSA activity, such asTBHAEROBIC CULTURECeftarolineTBHAEROBIC CULTURELight growthTBHAEROBIC CULTURETBHAEROBIC CULTURENot applicableTBHAEROBIC CULTUREStaphylococcus epidermidisTBHAEROBIC CULTURE ??O:ART Isolated TBHAEROBIC CULTUREPerformed at: [facility] [id number] [place], [place] [id number] CULTURELab Director: Collin Rodriguez PhD, Phone: [phone] CULTURE Organism: ??2.1 Antibiotic ? Interpretation ? TARA ? Status TBHAEROBIC CULTURE ??Ciprofloxacin ? Ciprofloxacin ?R ?F (R)TBHAEROBIC CULTURE ??Erythromycin ? Erythromycin ? R ?F (R)TBHAEROBIC CULTURE ??Gentamicin ? Gentamicin ? S ?F (S)TBHAEROBIC CULTURE ??Levofloxacin ? Levofloxacin ? R ?F (R)TBHAEROBIC CULTURE ??Linezolid ? Linezolid ?S ?F (S)TBHAEROBIC CULTURE ??Moxifloxacin ? Moxifloxacin ? R ?F (R)TBHAEROBIC CULTURE ??Oxacillin ? Oxacillin ?R ?F (R)TBHAEROBIC CULTURE ??Penicillin ? Penicillin ? R ?F (R)TBHAEROBIC CULTURE ??Rifampin ? Rifampin ? S ?F (S)TBHAEROBIC CULTURE ??Tetracycline ? Tetracycline ? R ?F (R)TBHAEROBIC CULTURE ??Trimethoprim/Sulfamethoxazole ? Trimethoprim/Sulfamethoxazole ?R ?F (R)TBHAEROBIC CULTURE ??Vancomycin ? Vancomycin ? S ?F (S)TBHAEROBIC CULTURE ??Clindamycin ? Clindamycin ?R ?F (R)TBHSpecimen (Source)Anatomical Location / LateralityCollection Method / VolumeCollection TimeReceived Time03/08/2025 10:00 AM EDT1 12:17 PM EDT Narrative [facility] - 03/13/2025 2:09 PM EDT RIGHT MAXILLARY SINUS (SURGICAL SPECIMEN) Authorizing ProviderResult TypeResult StatusRenu FLANAGAN BLOOD ORDERABLESFinal ResultPerforming OrganizationAddressty/State/ZIP CodePhone Number [facility] * ANAEROBIC CULTURE (03/08/2025 10:00 AM EDT)ComponentValueRef RangeTest Method Analysis TimePerformed AtPathologist SignatureANAEROBIC CULTURE ??Anaerobic Culture TBHANAEROBIC CULTURESpecimen has been received and testing has been initiated. TBHANAEROBIC CULTUREOrganism: Fusobacterium nucleatum :TBHANAEROBIC CULTURE *ABNORMAL*TBHANAEROBIC CULTUREScant growthTBHANAEROBIC CULTUREStudies at [employer] have confirmed theTBHANAEROBIC CULTUREobservations of others who have demonstrated thatTBHANAEROBIC CULTUREFusobacterium species are routinely susceptible toTBHANAEROBIC CULTURECefoxitin, Chloramphenicol, Clindamycin, MetronidazoleTBHANAEROBIC CULTUREand Penicillin.TBHANAEROBIC CULTURE Fusobacterium nucleatumTBHANAEROBIC CULTURE ??O:FUSNUC Isolated TBHSpecimen (Source)Anatomical Location / LateralityCollection Method / Volume Collection TimeReceived Time03/08/2025 10:00 AM EDT1 12:17 PM EDT Narrative [facility] - 03/13/2025 2:09 PM EDT RIGHT MAXILLARY SINUS (SURGICAL SPECIMEN) Authorizing ProviderResult TypeResult StatusRenu FLANAGAN BLOOD ORDERABLESFinal ResultPerforming OrganizationAddressty/State/ZIP CodePhone Number [facility] documented in this encounter Visit Diagnoses Not on filedocumented in this encounter Care Teams Team MemberRelationshipSpecialtyStart [place] [address] [place] [address] PCP - GeneralCardiology12/05/24documented as of this encounter
--- OUTSIDE RECORDS SUMMARY | 2025-04-23 07:58 | XMS_ITS | Clinical Summary ---
Author Organization [facility] Address [address] [place] [address] Care Team Providers Care Bag Press Operator Name Role Phone Osvaldo Browne MD Primary Care Provider [phone] Allergies Active AllergyReactionsCriticalityNoted DateCommentsAmoxicillin-Pot Clavulanate Iaysjxex16/19/2024 Other Reaction(s): dizziness JnlpykzlgpaqRhsioisq18/20/2023Penicillin CKtfpBrj74/22/2025 Medications MedicationSigDispense QuantityRefillsLast FilledStart DateEnd DateStatus albuterol HFA 90 mcg/act inhaler TAKE 2 PUFFS BY MOUTH EVERY 4 TO 6 HOURS UJILPQ555Active baclofen (Lioresal) 10 MG tablet TAKE ONE TABLET BY MOUTH THREE TIMES A DAY NEEDED FOR MUSCLE SPASMActive Trelegy Ellipta 200-62.5-25 MCG/ACT aerosol powder INHALE 1 PUFF BY INHALATION ROUTE ONCE DAILY AT THE SAME TIME EACH DAY10/04/2024 Active gabapentin (Neurontin) 600 MG tablet Take 600 mg by mouth in the morning and 600 mg in the evening and 600 mg before bedtime.Active HYDROcodone-acetaminophen ([place]) 7.5-325 MG tablet TAKE ONE TABLET BY MOUTH THREE TIMES A DAY NEEDED FOR PAIN. MUST LAST 30 DAYS 5Active ipratropium-albuterol (Duo-Neb) 0.5-2.5 mg/3 mL nebulizer solution USE 1 VIAL PER NEBULIZER 3 TIMES DAILY4Active lisinopril 10 MG tablet Take 10 mg by mouth in the morning.Active meloxicam (Mobic) 15 MG tablet Take 15 mg by mouth DailyActive montelukast (Singulair) 10 MG tablet Take 10 mg by mouth in the eveningActive pantoprazole (ProtoNix) 40 MG EC tablet Take 40 mg by mouth DailyActive Cyanocobalamin (B-12) [address] under the tongueActive Zinc Sulfate (ZINC 15 PO) Take by mouthActive fluticasone (Flonase) 50 MCG/ACT nasal spray Indications:Chronic maxillary sinusitis2 sprays to the right nose twice daily. Shake gently. Before first use, prime pump. After use, clean tip and replace cap. 48 g 5Active cetirizine (ZyrTEC) 10 MG tablet Indications:Chronic maxillary sinusitisTake 1 tablet (10 mg) by mouth Daily as needed for allergies 90 tablet 5012/19/2025ctive Active Problems ProblemNoted DateDiagnosed DateAcute asthma tuwulsiaulri61/17/2025ronchitis 03/16/2025rushing injury of fifth toe of left foot03/16/2025Encounter for prophylactic measures, lvnihhyfndt35/17/0314Yeozmdgduklw70/17/2025Impaired mobility and ADLs11396Qdciuygvavpy06/17/6505Lyvywyqrmzjk82/17/2025Low serum zlgkvszhxi28/17/0678Tbxkolzrdbrjbi03/17/2025Panic gmscymc8703/16/2025Pneumonia due to COVID-19 virus03/16/2025Postoperative gwtzas6103/16/2025Postoperative pain after spinal uwdpexl4003/16/2025Right foot drop03/16/2025Lumbar radiculopathy 03/16/2025Hallux valgus (acquired), left foot12/13/2024 Encounters DateTypeDepartmentCare YjiaRenrrqagsmx37/17/2025 11:30 AM EDTOffice Visit [facility] [address] [facility] [address] [place] [id number] Renu Beltrán MD Chronic maxillary sinusitis (Primary Dx); Foreign body in nose, initial /17/2025amboo flowsheet [facility] [address] [place] [place] [phone] Renu Beltrán MD 03/16/20255068Pcddbz96/13/2025Orders Only [facility] [address] [place] [address] Renu Beltrán MD 03/08/2025linisync Result Encounter [facility] External Department Unsolicited Renu Beltrán MD 03/08/2025Orders Only [facility] [address] [place] [address] Renu Beltrán MD 03/02/2025linisync Result Encounter [facility] External Department Unsolicited Renu Beltrán MD 03/02/2025linisync Result Encounter [facility] External Department Unsolicited Renu Beltrán MD 03/02/2025linisync Result Encounter [facility] External Department Unsolicited Renu Beltrán MD 02/26/2025 3:20 PM EDTOffice Visit [facility] [address] [place] [address] Renu Beltrán MD Chronic maxillary sinusitis (Primary Dx)02/26/2025amboo flowsheet [facility] [address] [place] [address] Renu Beltrán MD 02/26/20259870Hfglxg83/19/2025linisync Result Encounter [facility] External Department Unsolicited Renu Beltrán MD from Last 3 Months Immunizations ImmunizationAdministration DatesNext DueInfluenza, injectable, quadrivalent, preservative free05/23/2020,03/22/2019 Family History Medical HistoryRelationNameCommentsDiabetesFatherDiabetesMotherRelationName StatusCommentsFatherAliveMotherAlive Social History Tobacco UseTypesPacks/DayYears UsedDateSmoking Tobacco: Every DayCigarettes Smokeless Tobacco: Never Tobacco Cessation:Ready to Q uit: Not Asked; Counseling Given: Not Answered Alcohol UseStandard Drinks/WeekCommentsNot Currently0 (1 standard drink = 0.6 oz pure alcohol)CommentsUnknownSex and Gender InformationValueDate Recorded Sex Assigned at BirthNot on fileLegal WurLnysll44/15/2023 6:48 PM EDTGender IdentityNot on fileSexual OrientationNot on file Last Filed Vital Signs Vital SignReadingTime TakenCommentsBlood Ehrpsctw863/6903/16/2025 11:49 AM EDT Coftu25705/17/2025 11:49 AM EDTTemperature--Respiratory Rate--Oxygen Saturation- -Inhaled Oxygen Concentration--Bmizic56.1 kg (214 lb)03/16/2025 11:49 AM EDT Wgayeq746 cm (5' 3 )03/16/2025 11:49 AM EDTBody Mass Index37.9103/16/2025 11:49 AM EDT Plan of Treatment DateTypeDepartmentCare Team (Latest Contact Info)Nlbvviakxvq87/25/2025 3:50 PM ESTOffice Visit [facility] [address] [facility] [address] [place] [address] Renu Beltrán MD [address] [facility] [address] [place] [address] Health MaintenanceDue DateLast DoneCommentsCT Tvmtgpxgdcqp15/05/1969Colonoscopy 1968Colorectal Cancer Boklntppd43/05/1969FIT-DNA1968FIT1968 FOBT1968 6342Jkxztvjadmeqo39/05/1969Pap Smear1989Cervical Cancer Phuoeowbd97/05/1999HPV/Tixwed9910/02/19982132Ujrxcvanb13/05/2009COVID-19 Vaccine ( season)/04/2021, 10/12/2020Influenza Vaccine (#1)2025 05/23/2020, 03/22/2019Pneumococcal Vaccine: Pediatrics (0 to 5 Years) and At- Risk Patients (6 to 64 Years)Aged OutNo longer eligible based on patient's age to complete this topic Procedures Procedure NamePriorityDate/TimeAssociated DiagnosisCommentsSCANNED LABSRoutine 03/08/2025 3:37 PM EDTAEROBIC PBMRWEEDjvvnvs09/09/2025 10:00 AM EDT ANAEROBIC KFSOVDOItrziha80/09/2025 10:00 AM EDT XR CHEST 2V1 9:02 AM EDT [facility] JMYNWskkdvp79/03/2025 8:35 AM EDT SRMCOH PROTHROMBIN TIME INR W/O LFOUTiukcvr86/03/2025 8:35 AM EDT ALL CBC WITH AUTO VWSRDwlrsvs55/03/2025 8:35 AM EDT ECG 12-LEAD03/02/2025 8:[address] SINUS WO CON02/16/2025 8:13 AM EDT from Last 3 Months Results * SCANNED LABS (03/08/2025 3:37 PM EDT) Narrative Authorizing ProviderResult TypeResult StatusHiladmitri Beltrán MDNEWTON [facility] PERFORMABLESFinal Result * ANAEROBIC CULTURE (03/08/2025 10:00 AM EDT)ComponentValueRef RangeTest Method Analysis TimePerformed AtPathologist SignatureANAEROBIC CULTURE ??Anaerobic Culture TBHANAEROBIC CULTURESpecimen has been received and testing has been initiated. TBHANAEROBIC CULTUREOrganism: Fusobacterium nucleatum :TBHANAEROBIC CULTURE *ABNORMAL*TBHANAEROBIC CULTUREScant growthTBHANAEROBIC CULTUREStudies at [facility] [facility] have confirmed theTBHANAEROBIC CULTUREobservations of others who have demonstrated thatTBHANAEROBIC CULTUREFusobacterium species are routinely susceptible toTBHANAEROBIC CULTURECefoxitin, Chloramphenicol, Clindamycin, MetronidazoleTBHANAEROBIC CULTUREand Penicillin.TBHANAEROBIC CULTURE Fusobacterium nucleatumTBHANAEROBIC CULTURE ??O:FUSNUC Isolated TBHSpecimen (Source)Anatomical Location / LateralityCollection Method / Volume Collection TimeReceived Time03/08/2025 10:00 AM EDT1 12:17 PM EDT Narrative [facility] - 03/13/2025 2:09 PM EDT RIGHT MAXILLARY SINUS (SURGICAL SPECIMEN) Authorizing ProviderResult TypeResult StatusHilaTonsil Hospital Roma [facility] BLOOD ORDERABLESFinal ResultPerforming OrganizationAddressCity/State/ZIP CodePhone Number [facility] * (ABNORMAL) AEROBIC CULTURE (03/08/2025 10:00 AM [...] epidermidisTBHAEROBIC CULTURE ??O:ART Isolated TBHAEROBIC CULTUREPerformed at: - [facility]OB[facility] [address] [place], [place] [id number] CULTURELab Director: Collin Rodriguez PhD, Phone: [phone] CULTURE Organism: ??2.1 Antibiotic ? Interpretation ? [...] MAXILLARY SINUS (SURGICAL SPECIMEN) Authorizing ProviderResult TypeResult StatusHilary H Timsaadia MDLAB BLOOD ORDERABLESFinal ResultPerforming OrganizationAddressCity/State/ZIP CodePhone Number [facility] * XR CHEST 2V (03/02/2025 9:02 AM EDT)Anatomical RegionLateralityModalityOther Specimen (Source)Anatomical Location / LateralityCollection Method / Volume Collection TimeReceived Time03/02/2025 9:02 AM EDT Narrative 03/02/2025 9:[address] [facility] ?[address] ? [place], [place] [address] ?XRay Report ? Signed ? Patient: KIM HILL ?MR#: [id number] ?? : 1970 ?Acct:[id number] ?? Age/Sex: 54 / F ?ADM Date: 03/02/25 ?? Loc: PST ? Attending Dr: Renu Beltrán M.D. ? Ordering Physician: Renu Beltrán M.D. ?? Date of Service: 03/02/25 ?? Procedure(s): XR chest 2V ?? Accession Number(s): [id number] ? cc: JOSEPH MARK ; Renu Beltrán M.D. ? [facility] ? [address] ? [place] [address] ? Patient Name: ?? KIM HILL ? MRN: [facility]:[id number] ? date: 1970 ?Sex: F ?? Assigned Patient Location: PST ?? Current Patient Location: PST ?? Accession/Order Number: [id number] ?? Exam Date: 03/02/2025 ??08:50 ?Report Date: 03/02/2025 ??09:02 ? At the request of: ?? RENU ??TIMMIS ??MD ? Procedure: ??XR chest 2V ? XR chest 2V ??03/02/2025 8:54 AM ? SIGNS AND SYMPTOMS: ?? preadmission testing ? PROTOCOL: 2 views of the chest ? COMPARISON: 04/29/2024 ? FINDINGS: ? The trachea is midline. ??The heart and mediastinal structures are within ?? normal limits. ??The lung parenchyma is clear. ??The bony thorax is intact. ? XR/XR chest 2V ?? IMPRESSION: ? No acute cardiopulmonary pathology. ? Impression dictated by: Tate Alva M.D. ??03/02/2025 9:02 AM ? Dictation Location: RADIO-PC-24 ? Electronically authenticated by: [id number] ??Y ?? Date: 03/02/2025 ??09:02 ? Dictated By: ?Tate Alva M.D. ? Signed By: ?10/03/25 0905 ? DD/ 0902 ? TD/TT: ? Butcher Apprentice: Procedure Note Radiology, Radiologist, MD - 03/02/2025 [place] [address] XRay Report Signed Patient: KIM HILL R#: [id number] : 1970Acct:[id number] Age/Sex: 54 / FADM Date: 03/02/25 Loc: PST Attending Dr: Renu Beltrán M.D. Ordering Physician: Renu Beltrán M.D. Date of Service: 03/02/25 Procedure(s): XR chest 2V Accession Number(s): [id number] cc: JOSEPH MARK ; Renu Beltrán M.D. [facility] [place] [id number] Patient Name: KIM HILL MRN: [id number] date: 1970 Sex: F Assigned Patient Location: [facility] Current Patient Location: PST Accession/Order Number: [id number] Exam Date: 03/02/2025 08:50 Report Date: 03/02/2025 09:02 At the request of: RENU BELTRÁN MD Procedure: XR chest 2V XR chest [...] Alva M.D. 03/02/2025 9:02 AM Dictation Location: [place] [address] Electronically authenticated by: [id number] Y Date: 9:02 Dictated By: Tate Alva M.D. Signed By:03/02/25904 DD/ 1 TD/TT: Butcher Apprentice: Authorizing ProviderResult TypeResult StatusRenu Beltrán MDCLINISYNC IMAGING Final Result * SRMCOH PROTHROMBIN TIME INR W/O COUM (03/02/2025 8:35 AM EDT)ComponentValueRef RangeTest MethodAnalysis TimePerformed AtPathologist SignaturePROTHROMBIN TIME 10.69.0 - 11.6 secTBHTBH INR1.00TBHComment: DESIRED INR: 2.0-3.0 CONDITIONS NOT LISTED BELOW 2.5-3.5 FOR PROSTHETIC HEART VALVE REPLACEMENT 2.5-3.5 RECURRENT THROMBOSIS Specimen (Source)Anatomical Location / LateralityCollection Method / Volume Collection TimeReceived Time03/02/2025 8:35 AM EDT1 8:45 AM EDT Narrative [facility] - 03/02/2025 9:10 AM EDT Authorizing ProviderResult TypeResult StatusRenu Beltrán MDCLINISYNCFinal ResultPerforming OrganizationAddressCity/State/ZIP CodePhone Number [facility] * CCF APTT (03/02/2025 8:35 AM EDT)ComponentValueRef RangeTest MethodAnalysis TimePerformed AtPathologist SignaturePARTIAL THROMBOPLASTIN TIME26.722.3 - 36.2 secTBHSpecimen (Source)Anatomical Location / LateralityCollection Method / VolumeCollection TimeReceived Time03/02/2025 8:35 AM EDT1 8:45 AM EDT Narrative [facility] - 03/02/2025 9:10 AM EDT Authorizing ProviderResult TypeResult StatusHilary H Timmis MDCLINISYNCFinal ResultPerforming OrganizationAddressCity/State/ZIP CodePhone Number [facility] * (ABNORMAL) ALL CBC WITH AUTO DIFF (03/02/2025 8:35 AM EDT)ComponentValueRef RangeTest MethodAnalysis TimePerformed AtPathologist SignatureTBH WBC9.14.0 - 11.0 10 3/uLTBHTBH RBC3.71(L)4.20 - 5.40 10 6/uLTBHTBH HGB12.212.0 - 16.0 g/dL TBHTBH HCT36.936.0 - 48.0 %TBHTBH MCV99.5(H)81.0 - 99.0 fLTBHTBH MCH32.926.7 - 34.0 pgTBHTBH MCHC33.129.9 - 35.2 g/dLTBHTBH RDW11.911.0 - 15.0 %TBHTBH BGP482 150 - 450 10 3/uLTBHTBH MPV9.79.5 - 13.5 fLTBHNEUTROPHILS PERCENT AUTO48.443.0 - 75.0 %TBHLYMPHOCYTES PERCENT AUTO41.220.5 - 60.0 %TBHMONOCYTES PERCENT AUTO 6.31.7 - 12.0 %TBHTBH EO %3.50.9 - 7.0 %TBHBASOPHILS PERCENT AUTO0.30.2 - 2.0 %TBHIMMATURE GRANULOCYTES PCT AUTO0.30.0 - 0.5 %TBHNEUTROPHILS ABSOLUTE AUTO 4.41.4 - 6.5 10 3/uLTBHLYMPHOCYTES ABSOLUTE AUTO3.71.2 - 3.8 10 3/uLTBH MONOCYTES ABSOLUTE AUTO0.60.3 - 0.8 10 3/uLTBHTBH EO #0.30.0 - 0.7 10 3/uLTBH BASOPHILS ABSOLUTE AUTO0.00.0 - 0.1 10 3/uLTBHIMMATURE GRANULOCYTES ABS AUTO 0.030.00 - 0.03 10 3/uLTBHSpecimen (Source)Anatomical Location / Laterality Collection Method / VolumeCollection TimeReceived Time03/02/2025 8:35 AM EDT 03/02/2025 8:45 AM EDT Narrative [facility] - 03/02/2025 8:54 AM EDT Authorizing ProviderResult TypeResult StatusHilary H Timmis MDCLINISYNCFinal ResultPerforming OrganizationAddressCity/State/ZIP CodePhone Number [facility] * ECG 12-LEAD (03/02/2025 8:26 AM EDT)Anatomical RegionLateralityModalityOther Specimen (Source)Anatomical Location / LateralityCollection Method / Volume Collection TimeReceived Time03/02/2025 8:26 AM EDT Narrative 03/02/2025 6:[address] [facility] ?[address] ? [place] [address] ? Electrocardiograph Report ? Signed ? Patient: KIM HILL ?MR#: [id number] ?? : 1970 ?Acct:[id number] ?? Age/Sex: 54 / F ?ADM Date: 03/02/25 ?? Loc: PST ? Attending Dr: Renu Beltrán M.D. ? Ordering Physician: Renu Beltrán M.D. ?? Date of Service: 03/02/25 ?? Procedure(s): ECG 12 lead ?? Accession Number(s): [id number] ? cc: ?[facility] ? Test Date: ?2025-03-02 ?? Pat Name: ? KIM HILL ?Department: ? Room: ? - ?? Gender: ? Female ? Registered Nurse Fetal: ? : ?1970 ? Requested By: RENU TIMMIS ?? Order Number: [id number] ?Reading MD: ?? RENE ??Mally COSTELLOD. ? Measurements ?? Intervals ?Samson ? Rate: ? 80 ? P: ?35 ?? IA: ? 158 ?QRS: ?11 ?? QRSD: ? 91 ? T: ?42 ?? QT: ? 355 ? QTc: ?410 ? Interpretive Statements ?? SINUS RHYTHM ?? LOW QRS VOLTAGE IN PRECORDIAL LEADS [QRS DEFLECTION < 1.0 mV IN CHEST LEADS] Abnormal ECG ?? Compared to ECG 04/27/2024 03:24:55 ?? Low QRS voltage now present ?? Sinus tachycardia no longer present ?? Electronically Signed On 03-02-2025 18:45:07 EDT by RENE ??Baljinder COSTELLO ? Dictated By: ?RENE COSTELLO ? Signed By: ?03/02/ 1845 ? DD/ 5 ? TD/TT: ? Butcher Apprentice: Procedure Note Radiology, Radiologist, - 03/02/2025 [place] [address] Electrocardiograph Report Signed Patient: KIM HILL LMR#: [id number] : 1970Acct:[id number] Age/Sex: 54 / FADM Date: 03/02/25 Loc: PST Attending Dr: Renu Beltrán M.D. Ordering Physician: Renu Beltrán M.D. Date of Service: 03/02/25 Procedure(s): ECG 12 lead Accession Number(s): [id number] cc: [facility] Test Date: 2025-03-02 Pat Name: KIM HILL Department: Room: - Gender: Female Registered Nurse Fetal: : 1970 Requested By: RENU BELTRÁN Order Number: [id number] Reading MD: RENE COSTELLO M.D. Measurements Intervals Samson Rate: 80 P: 35 IA: 158 QRS: 11 QRSD: 91 T: 42 QT: 355 QTc: 410 Interpretive Statements SINUS RHYTHM LOW QRS VOLTAGE IN PRECORDIAL LEADS [QRS DEFLECTION < 1.0 mV IN CHESTLEADS] Abnormal ECG Compared to ECG 04/27/2024 03:24:55 Low QRS voltage now present Sinus tachycardia no longer present Electronically Signed On 03-02-2025 18:45:07 EDT by RENE COSTELLO M.D. Dictated By: RENE COSTELLO Signed By:03/02/25 1845 DD/ 0826 TD/TT: Butcher Apprentice: Authorizing ProviderResult TypeResult StatusHilary Xander Beltrán MDCLINISYNC IMAGING Final Result * CT SINUS WO CON (02/16/2025 8:13 AM EDT)Anatomical RegionLateralityModality OtherSpecimen (Source)Anatomical Location / LateralityCollection Method / VolumeCollection TimeReceived Time02/16/2025 8:13 AM EDT Narrative 02/16/2025 8:16 AM EDT [facility] ?[address] ? [place] [address] ? CT Scan Report ? Signed ? Patient: NOE,KIM L ?MR#: [id number] ?? : 1970 ?Acct:[id number] ?? Age/Sex: 54 / F ?ADM Date: 09/18/25 ?? Loc: CT ? Attending Dr: Renu Beltrán M.D. ? Ordering Physician: Renu Beltrán M.D. ?? Date of Service: 02/15/25 ?? Procedure(s): CT sinus wo con ?? Accession Number(s): [id number] ? cc: JOSEPH MARK ? [facility] ? [address] ? [place] [address] ? Patient Name: ?? KIM Oglesby NOE ? MRN: [facility]:[id number] ? date: 1970 ?Sex: F ?? Assigned Patient Location: CT ?? Current Patient Location: ? Accession/Order Number: [id number] ?? Exam Date: 02/15/2025 ??15:20 ?Report Date: 02/16/2025 ??08:13 ? At the request of: ?? RENU ??ROMA ? Procedure: ??CT sinus wo con ? CT PARANASAL SINUSES WITHOUT CONTRAST: ? CLINICAL HISTORY: ??Chronic Sinusitis follow-up after antibiotics ? COMPARISON 09/29/2024 ? TECHNIQUE: ??Contiguous axial unenhanced images were obtained through the ?? paranasal sinuses. ??Coronal reconstructions were also performed. ??This CT exam ?? was performed using one or more following dose reduction techniques: Automated ?? exposure control, adjustment of the mA and/or kV according to patient size, or ?? use of iterative reconstruction technique. ? FINDINGS: ??There is appropriate development and pneumatization. ??There is ?? still mucosal thickening and fluid within the right maxillary sinus, extending ?? through the ostiomeatal complex and partially effacing the middle turbinate. ? There is only minimally interval improvement. ??The remaining paranasal sinuses ?? show no mucosal thickening or fluid levels. ??The right ostiomeatal complex is ?? obscured. ??There is no bony destruction. ??Slight anterior nasal septal ?? deviation is present left ? CT/CT sinus wo con ?? IMPRESSION: ? CONTINUED RIGHT MAXILLARY SINUSITIS AND OCCLUSION OF THE OSTIOMEATAL COMPLEX, ?? SLIGHTLY IMPROVED. ? Impression dictated by: Shalonda Mckee M.D. ??02/16/2025 8:13 AM ? Dictation Location: RADIO-PC-30 ? Electronically authenticated by: [id number] ??Y ?? Date: 02/16/2025 ??08:13 ? Dictated By: ?Shalonda Mckee M.D. ? Signed By: ?02/16/25 0816 ? DD/ 0813 ? TD/TT: ? Butcher Apprentice: Procedure Note Radiology, Radiologist, MD - 02/16/2025 [place] [address] CT Scan Report Signed Patient: KIM HILL LMR#: [id number] : 1970Acct:[id number] Age/Sex: 54 / FADM Date: 02/15/25 Loc: CT Attending Dr: Renu Beltrán M.D. Ordering Physician: Renu Beltrán M.D. Date of Service: 02/15/25 Procedure(s): CT sinus wo con Accession Number(s): [id number] cc: JOSEPH MARK [place] [address] Patient Name: KIM HILL MRN: [id number] date: 1970 Sex: F Assigned Patient Location: CT Current Patient Location: Accession/Order Number: [id number] Exam Date: 02/15/2025 15:20 Report Date: 02/16/2025 08:13 At the request of: RENU BELTRÁN MD Procedure: CT sinus wo con CT PARANASAL SINUSES WITHOUT CONTRAST: CLINICAL HISTORY: Chronic Sinusitis follow-up after antibiotics COMPARISON 09/29/2024 TECHNIQUE: Contiguous axial unenhanced images were obtained through the paranasal sinuses. Coronal reconstructions were also performed. This CTexam was performed using one or more following dose reduction techniques:Automated exposure control, adjustment of the mA and/or kV according to patientsize, or use of iterative reconstruction technique. FINDINGS: There is appropriate development and pneumatization. There is still mucosal thickening and fluid within the right maxillary sinus,extending through the ostiomeatal complex and partially effacing the middleturbinate. There is only minimally interval improvement. The remaining paranasalsinuses show no mucosal thickening or fluid levels. The right ostiomeatal complexis obscured. There is no bony destruction. Slight anterior nasal septal deviation is present left CT/CT sinus wo con IMPRESSION: CONTINUED RIGHT MAXILLARY SINUSITIS AND OCCLUSION OF THE OSTIOMEATALCOMPLEX, SLIGHTLY IMPROVED. Impression dictated by: Shalonda Mckee M.D. 02/16/2025 8:13 AM Dictation Location: [place] [address] Electronically authenticated by: [id number] Y Date: 508:13 Dictated By: Shalonda Mckee M.D. Signed By:02/16/25815 DD/ 2 TD/TT: Butcher Apprentice: Authorizing ProviderResult TypeResult StatusHilary Xander Beltrán MDCLINISYNC IMAGING Final Result from Last 3 Months Insurance * Guarantor: Kim Hill TypeRelation to PatientDate of BirthPhone Billing AddressPersonal/JpzpawCwbm03/05/1971 [address] [place] [phone] Care Teams Team MemberRelationshipSpecialtyStart [place] [address] [place] [address] PCP - GeneralCardiology12/05/24
--- OUTSIDE RECORDS SUMMARY | 2025-04-23 07:58 | XMS_ITS | Clinical Summary ---
Author Organization [facility] Address [address] [place] [id number] Care Team Providers Care Internet Retailer Name Role Phone Aby Yu CNP Unavailable Allergies Active AllergyReactionsCriticalityNoted DateCommentsPenicillinsRash,Diarrhea Gzfaff7606/09/2024 Medications MedicationSigDispense QuantityRefillsLast FilledStart DateEnd DateStatus gabapentin (NEURONTIN) 600 mg tablet Take 600 mg by mouth three times a day.Active hydrocodone/acetaminophen (NORCO ORAL) Take 7.5 mg by mouth three times a day.Active baclofen 10 mg tablet Take 10 mg by mouth two times a day.Active meloxicam (MOBIC) 15 mg tablet Take 15 mg by mouth once daily.Active lisinopril (ZESTRIL) 10 mg tablet Take 10 mg by mouth once daily.Active pantoprazole DR (PROTONIX) 40 mg tablet Take 40 mg by mouth once daily.Active montelukast (SINGULAIR) 10 mg tablet Take 10 mg by mouth daily at bedtime.Active oytibvapbtw-meszpnrne-tbnmcgwr (TRELEGY ELLIPTA) 100-62.5-25 mcg inhalation powder Inhale 1 Puff as instructed once daily.Active cefdinir (OMNICEF) 300 mg capsule Take 300 mg by mouth two times a day.Active albuterol-budesonide HFA (AIRSUPRA) 90-80 mcg/actuation inhaler Inhale 2 Puffs as instructed. Do not take more than 12 inhalations in a 24 hour period.Active Social History Tobacco UseTypesPacks/DayYears UsedDateSmoking Tobacco: Every DayCigarettes Smokeless Tobacco: Never Tobacco Cessation:Ready to Q uit: Not Asked; Counseling Given: Not Answered Alcohol UseStandard Drinks/WeekCommentsNot Currently0 (1 standard drink = 0.6 oz pure alcohol)PHQ-2AnswerDate RecordedPHQ-2 flcpp589rea Deprivation IndexAnswerDate RecordedNational Score (1-100), lower number is lower risk61 06/09/2024State Score (1-10), lower number is lower ukyo10206/09/2024Data from: https://www.neighborhoodatlas.medicine.[facility]/. Last address used for [address] [facility]06/09/2024CommentsNoSex and Gender InformationValueDate RecordedSex Assigned at BirthNot on fileLegal SexFemale 07/20/2019 1:04 PM ESTGender IdentityNot on fileSexual OrientationNot on file Last Filed Vital Signs Vital SignReadingTime TakenCommentsBlood Lxtzbpel801/9504 2:59 PM EDT Yozvt8406 2:59 PM EDTTemperature--Respiratory Kvda286109/26/2024 2:59 PM EDTOxygen Djoqagqliu37%09/26/2024 2:59 PM EDTInhaled Oxygen Concentration-- Bpqvty50.7 kg (215 lb 4.5 oz)09/26/2024 2:59 PM TGJSkobtc216 cm (5' 3 ) 09/26/2024 2:59 PM EDTBody Mass Index38.1404 2:59 PM EDT Plan of Treatment Health MaintenanceDue DateLast DoneCommentsAnxiety Cnjpchhfk76/05/1987Depression Zhdxnsuav90/05/1987HIV Cpmcwlias74/05/1987Hepatitis C Vmgbrukft13/05/1987 DTaP,Tdap,Td Vaccine (1 - Tdap)10/03/1987Hepatitis B Vaccine (1 of 3 - 19+ 3- dose series)10/03/1987Pneumococcal Vaccine: 50+ (1 of 2 - PCV)10/03/1987Cervical Cancer Scsnxpjtn64/05/1990Mammogram Ljpvpccrx31/05/2009CT Mykormzggryq85/05/2014 Cologuard (FIT-DNA)10/02/20137156Yyjeqzujpeb56/05/2014Colorectal Cancer Screening 2013Diabetes Cyewhkanw43/05/2014Fecal Occult Blood2013Lipid Evbrprwwz26/05/0773Awjnzbwtvaixk11/05/2014Shingrix Vaccine (1 of 2)2018 Covid-19 Vaccine ( season)/04/2021, 10/12/2020Influenza Vaccine (#1), 03/22/2019 Insurance Care Teams Team MemberRelationshipSpecialtyStart DateEnd Date Aby Yu CNP [address] [place] [address] ReferringFamily Cxuxgzrq23/3/24
--- OUTSIDE RECORDS SUMMARY | 2025-04-23 07:59 | XMS_ITS | CCD ---
Author Organization [facility] Care Team Providers Care Ground Mixer Name Role Phone Roberto Roth Primary Care Provider Justice Cruz Attending Provider DO Roberto Roth Primary Care Provider MD Hood Rausch Attending Provider [phone] DO Roberto Roth Primary Care Provider [phone] CALVIN Mark Attending Provider MD Paresh Tian Attending Provider RothDO Roberto oliva Primary Care Provider CALVIN Mark Attending Provider [phone] MD Paresh Tian Attending Provider MD Gina Guerrero Attending Provider [phone] Gina Guerrero Unavailable SHE ., DR HOOD [...] IRA, DR ROBERTO Bhakta Primary Care Unavailable [place], DR DASHA Gomez Consulting Unavailable SINGH ., [...] vailable DR ROBERTO ROTH Primary Care Unavailable Aby Mark CNP Unavailable [phone] LOS SARMIENTO Attending Unavailable ABY MARK Referring Unavailable LOS SARMIENTO Attending Unavailable ABY MARK Referring Unavailable LOS SARMIENTO Attending Unavailable Osvaldo Browne MD Primary Care Provider Gilitaitis , Andrius Musa Attending Unavailable Giedraitis , Andrius Voneil Attending Unavailable Giedleighton BUSTILLO, Andrius Musa Attending Unavailable Panda BUSTILLO, Andrius Musa Attending Unavailable Jacky Brandon MD Attending Provider Unavailab le Roma Schroeder Jacky H Attending Unavailable Timmis Jr Jacky H Admitting Unavailable Osvaldo Browne MD Primary Care Provider TIMVIDAL GUILLENARY H Attending Unavailable VIDAL BRANDONARY H Attending Unavailable ROMA JACKY H Attending Unavailable Unavailable Unavailable Unavailable Allergies Allergy ClassificationReported Allergen(s)Allergy TypeDate of OnsetReaction(s) Facility (7 sources)Amoxicillin; Translations: [amoxicillin]Drug Wyluxtb03-11-5649YisbbmW[facility] (12 sources)Penicillins; Translations: [Penicillins]Propensity to adverse fhxjqpopy92-79-8401TfaeUniversity Hospitals [facility] (7 sources)clavulanic acid; Translations: [clavulanic acid]Propensity to adverse sttcmpeeu40-24-1318XfcidtEbnwggznqTrinity Health System (3 sources)Amoxicillin / Clavulanate; Translations: [Augmentin]Drug Allergy 54-92-7372XotqmvhKlwCleveland [facility] (6 sources)AzithromycinDrug Ohgfbvh24-53-2509JarcpxehUgetdrmjjThe [facility] (16 sources)Penicillin GDrug Aqssqqs15-11-2087CbmuGsrqlZen99 Other (13 sources)Amoxicillin-Pot ClavulanateDrug Hnahzqn28-08-2736FoduycnxCKXC Healthcare (1 source)AzithromycinDrug Oxgdrjc51-93-9253PneviptcsKeenan Private Hospital Rep[facility] (1 source)PenicillinDrug Oysikel87-35-3702YbkhstudlKeenan Private Hospital Repository Medications Current Medications MedicationDrug Class(es)DatesSig (Normalized)Sig (Original)acetaminophen 500 mg oral tablet (5 sources)Start: 11-21-8919smum 1 tablet by mouth every four hours as needed for painacetaminophen 325 mg / HYDROcodone bitartrate 7.5 mg oral tablet (20 sources)Opioid AgonistStart: 63-61-6715fnoj 1 tablet by mouth three times daily as needed for painHYDROcodone-acetaminophen (Sanders) 7.5-325 MG tablet TAKE ONE TABLET BY MOUTH THREE TIMES A DAY NEEDED FOR PAIN. MUST LAST 30 DAYS 12/08/2024 ActiveStart: 03-18-2019 End: 65-37-1330wkww 1 tablet by mouth three times daily as needed for pain Hydrocodone-Acetaminophen (Sanders) 5-325 mg Tablet Discontinued 1 TAB PO Three times daily as neededfor Pain March 18, 2019 12:00am May 23, 2020 4:59pmtake 7.5 mg by mouth three times dailyhydrocodone/acetaminophen (NORCO ORAL) Take 7.5 mg by mouth three times a day. ActiveNorco Ifixdhmbc473979 200 actuat albuterol 0.09 mg/actuat metered dose inhaler (20 sources)beta2-Adrenergic AgonistStart: 11-52-8097zjpo 2 puff(s) by mouth every four to six hours as neededalbuterol HFA 90 mcg/act inhaler TAKE 2 PUFFS BY MOUTH EVERY 4 TO 6 HOURS NEEDED 11/25/2024 ActiveStart: 12-52-7772ooza 1 puff(s) by inhalation every three hours as needed for coughStart: 39-80-1605uzby 1 puff(s) by inhalation every six hoursAlbuterol Sulfate (Proair Hfa) 90 mcg/actuation Hfa Aerosol Inhaler Active 1 - 2 PUFF INHALATION Q6H March 17, 2019 11:33pmStart: 03-18-2019 End: 21-84-5683ninv 1 puff(s) by inhalation every six hours as neededtake 2 puff(s) by mouth every four to six hoursProAir RespiClick 108 (90 Base) MCG/ACT INHALE 2 PUFFS BY MOUTH EVERY 4 TO 6 HOURS Inhalation for 21 Activealbuterol 0.833 mg/ml / ipratropium bromide 0.167 mg/ml inhalation solution (18 sources)Anticholinergic, beta2-Adrenergic AgonistStart: 05-04-2024 ipratropium-albuterol (Duo-Neb) 0.5-2.5 mg/3 mL nebulizer solution USE 1 VIAL PER NEBULIZER 3 TIMESDAILY 05/04/2024 ActiveStart: 73-67-1395bopx 1 mL by inhalation four times daily as needed for congestionalbuterol-budesonide HFA (AIRSUPRA) 90-80 mcg/actuation inhaler (3 sources)albuterol-budesonide HFA (AIRSUPRA) 90-80 mcg/actuation inhaler Inhale 2 Puffs as instructed. Do not take more than 12 inhalations in a 24 hour period. ActiveAnoro Ellipta 62.5-25 MCG/INH (2 sources)take 1 puff(s) by mouth once dailyAnoro Ellipta 62.5-25 MCG/INH INHALE 1 PUFF BY MOUTH EVERY DAY Inhalation for 30 Activebaclofen 10 mg oral tablet (16 sources)gamma-Aminobutyric Acid-ergic Agonisttake 1 tablet by mouth three times daily as needed for muscle spasmsbaclofen (Lioresal) 10 MG tablet TAKE ONE TABLET BY MOUTH THREE TIMES A DAY NEEDED FOR MUSCLE SPASM Activetake 1 tablet by mouth twice dailybaclofen 10 mg tablet Take 10 mg by mouth two times a day. Activecefdinir 300 mg oral capsule (3 sources)Cephalosporin Antibacterialtake 1 capsule by mouth twice daily cefdinir (OMNICEF) 300 mg capsule Take 300 mg by mouth two times a day. Active cetirizine hydrochloride 10 mg oral tablet (13 sources)Histamine-1 Receptor AntagonistStart: 12-19-2024 End: 03-01-1533rvyt 1 tablet by mouth once daily as neededcetirizine (ZyrTEC) 10 MG tablet Indications: Chronic maxillary sinusitis Take 1 tablet (10 mg) by m outh Daily as needed for allergies 90 tablet 3 12/19/2024 12/19/2025 Active fluticasone propionate 0.05 mg/actuat metered dose nasal spray (13 sources)CorticosteroidStart: 31-97-4426gigdalxemeg (Flonase) 50 MCG/ACT nasal spray Indications: Chronic maxillary sinusitis 2 sprays to the right nose twice daily. Shake gently. Before first use, prime pump. After use, clean tip and replace cap. 48 g 3 12/19/2024 Dvjytn82 actuat fluticasone furoate 0.1 mg/actuat / umeclidinium 0.0625 mg/actuat / vilanterol 0.025 mg/actuat dry powder inhaler (3 sources)Anticholinergic, Corticosteroid, beta2-Adrenergic Agonisttake 1 puff(s) by inhalation once wsirxbhijcxucptq-ojjoiaznp-artiglnt (TRELEGY ELLIPTA) 100-62.5-25 mcg inhalation powder Inhale 1 Puff asinstructed once daily. Active gabapentin 300 mg oral capsule (20 sources)Anti-epileptic AgentStart: 99-74-9095frna 2 capsules by mouth three times dailyStart: 52-33-1177ccso 600 mg by mouth three times dailyGabapentin Active 600 MG PO Three times daily 0 May 31, 2020 1:00amStart: 03-18-2019 End: 93-01-6038qwlq 1 tablet by mouth three times dailyGabapentin 600 mg Tablet Discontinued 600 MG PO Three times daily March 18, 2019 12:00am June 01, 2020 10:48amlisinopril 10 mg oral tablet (20 sources)Angiotensin Converting Enzyme InhibitorStart: 05-14-2020 End: 55-05-7579wwkh 1 tablet by mouth once dailymeloxicam 15 mg oral tablet (18 sources)Nonsteroidal Anti-inflammatory Drugtake 1 tablet by mouth once daily meloxicam (Mobic) 15 MG tablet Take 15 mg by mouth Daily Activemontelukast 10 mg oral tablet (16 sources)Leukotriene Receptor Antagonisttake 1 tablet by mouth in the evening montelukast (Singulair) 10 MG tablet Take 10 mg by mouth in the evening Active omeprazole 20 mg delayed release oral capsule (11 sources)Proton Pump InhibitorStart: 05-14-2020 End: 52-04-4672ajhm 1 capsule by mouth once dailyoxyCODONE hydrochloride 5 mg oral tablet (20 sources)Opioid AgonistStart: 41-70-8999gddz 7.5 mg by mouth every four hours as needed for painStart: 72-96-0404nnhi 7.5 mg by mouth every four hours Oxycodone Active 7.5 MG PO Q4H June 23, 2021 5:32pmStart: 05-31-2020 End: 45-82-2505ifhy 2 tablets by mouth every four hours as needed for pain Oxycodone 5 mg Tablet Discontinued 10 MG PO Every 4 hours as needed for Pain 0 May 31, 2020 June 23, 2021 5:32pmStart: 05-31-2020 End: 87-61-1074mybj 10 mg by mouth every four hoursOxycodone Discontinued 10 MG PO Every 4 hours 0 May 31, 2020 June 23, 2021 5:32pmStart: 05-23-2020 End: 31-46-0332pwop 1 tablet by mouth every four hours as needed for pain Oxycodone 5 mg Tablet Discontinued 5 MG PO Q4H as needed for Pain Scale 1 - 5 40 7 May 31, 2020 June 23, 2021 5:32pmpantoprazole 40 mg delayed release oral tablet (18 sources)Proton Pump Inhibitortake 1 tablet by mouth once dailypantoprazole (ProtoNix) 40 MG EC tablet Take 40 mg by mouth Daily ActivepredniSONE 20 mg oral tablet (12 sources)Start: 12-19-2024 End: 62-31-0583ynlg 1 tablet by mouth in the morningpredniSONE (Deltasone) 20 MG tablet Indications: Chronic maxillary sinusitis Take 1 tablet (20 mg) by mouth in the morning and 1 tablet (20 mg) before bedtime. Do all this for 6 days. 12 tablet 12/19/2024 12/25/2024 ActiveStart: 66-68-0933Vaape: 02-14-2021 End: 90-84-5751vovv 3 tablets by mouth once daily at mealtimePrednisone 20 mg tablet Discontinued 60 MG PO Daily February 14, 2021 12:00am June 23, 2021 5:32pm administer with food or milkStart: 02-14-2021 End: 81-71-4545aqsv 60 mg by mouth once daily at mealtimePrednisone Discontinued 60 MG PO Daily February 14, 2021 12:00am June 23, 2021 5:32pm adm inister with food or milkTrelegy Ellipta 200-62.5-25 MCG/ACT aerosol powder (13 sources)Start: 28-41-6352ookg 1 puff(s) by inhalation once dailyTrelegy Ellipta 200-62.5-25 MCG/ACT aerosol powder INHALE 1 PUFF BY INHALATION ROUTE ONCE DAILY AT THE SAME TIME EACH DAY 10/04/2024 Activevitamin b12 0.5 mg sublingual tablet (13 sources)Vitamin C61Bpmjiewvtpobok (B-12) [address] under the tongue ActiveZinc Sulfate (13 sources)Zinc Sulfate (ZINC 15 PO) Take by mouth Active Completed/Discontinued Medications MedicationDrug Class(es)DatesSig (Normalized)Sig (Original)azithromycin 250 mg oral tablet (5 sources)Macrolide AntimicrobialStart: 02-14-2021 End: 75-05-5816bvdh 2-5 tablets by mouth once dailyAzithromycin (Zithromax) 250 mg tablet Discontinued 0 PO .COMPLEX February 14, 2021 12:00am June 23, 2021 5:30pm take 500 mg today (day 1), then 250 mg for 4 days (days 2-5) benzonatate 100 mg oral capsule (5 sources)Non-narcotic AntitussiveStart: 02-14-2021 End: 82-68-7354pkkp 1 capsule by mouth three times daily as needed for cough Benzonatate (Tessalon Perles) 100 mg capsule Discontinued 100 MG PO Three times daily as needed forcough February 14, 2021 12:00am June 23, 2021 5:30pmcyclobenzaprine hydrochloride 10 mg oral tablet (5 sources)Muscle RelaxantStart: 05-31-2020 End: 93-54-6168peue 1 tablet by mouth every eight hours as needed for muscle spasmsCyclobenzaprine 10 mg Tablet Discontinued 10 MG PO Every 8 hours as needed for Muscle spasms May 31, 2020 1:00am June 23, 2021 5:31pmdiazePAM 5 mg oral tablet (5 sources)BenzodiazepineStart: 05-23-2020 End: 23-21-5462eoeu 1 tablet by mouth four times daily as needed for muscle spasmsDiazepam 5 mg Tablet Discontinued 5 MG PO Four times daily as needed for Muscle Spasm 30 May 23, 2020 1:00am June 01, 2020 10:48amdocusate sodium 100 mg oral capsule (5 sources)Start: 05-31-2020 End: 71-07-8162jvrm 1 capsule by mouth twice dailyDocusate Sodium (Dok) 100 mg Capsule Discontinued 100 MG PO Twice daily May 31, 2020 1:00amJune 23, 2021 5:31pmibuprofen 800 mg oral tablet (6 sources)Nonsteroidal Anti-inflammatory DrugStart: 03-18-2019 End: 16-47-0716gjau 1 tablet by mouth three times daily as needed for pain Ibuprofen 800 mg tablet Discontinued 800 MG PO Three times daily as needed for pain March 18, 2019 12:00am May 14, 2020 2:41pmlidocaine 0.04 mg/mg medicated patch (5 sources)Antiarrhythmic, Amide Local AnestheticStart: 05-31-2020 End: 11-33-3230aiwra 1 dose topically once dailyLidocaine (Aspercreme (Lidocaine Hcl)) 4 % Adhesive Patch,Medicated Discontinued 2 PATCH TOPICAL Daily May 31, 2020 1:00am June 23, 2021 5:31pmnaproxen 250 mg oral tablet (5 sources)Nonsteroidal Anti-inflammatory DrugStart: 05-31-2020 End: 59-21-6076wohj 1 tablet by mouth once at mealtime as needed for pain Naproxen 250 mg Tablet Discontinued 250 MG PO 3x/Day with meals as needed for pain May 31, 2020 1:00am June 23, 2021 5:31pm24 hr nicotine 0.875 mg/hr transdermal system (10 sources)Cholinergic Nicotinic AgonistStart: 05-23-2020 End: 46-39-7402mjomd 1 dose transdermal route every twenty-four hoursNicotine 21 mg/24 hr Patch 24 Hour Discontinued 1 PATCH TRANSDERML Daily May 31, 2020 1:00amJune 23, 2021 5:31pmStart: 05-23-2020 End: 47-36-9172cfpbg 1 dose transdermal route once dailyNicotine Discontinued 1 PATCH TRANSDERML Daily May 31, 2020 1:00am June 23, 2021 5:31pm Sennosides (Senna Lax) 8.6 mg Tablet (4 sources)Start: 05-31-2020 End: 98-96-1405inge 2 tablets by mouth once dailySennosides (Senna Lax) 8.6 mg Tablet Discontinued 2 TAB PO DAILY@12 60 May 31, 2020 12:00am June 23, 2021 4:32pmStart: 05-31-2020 End: 75-28-5666goav 2 tablets by mouth once dailySennosides (Senna Lax) 8.6 mg Tablet Discontinued 2 TAB PO DAILY@12 60 May 31, 2020 1:00am June 23, 2021 5:32pmsennosides, intermediate 8.6 mg oral tablet (1 source)Start: 05-31-2020 End: 82-87-2935teye 2 tablets by mouth once daily as neededSennosides (Senna Lax) 8.6 mg Tablet Discontinued 2 TAB PO DAILY@12 as needed for If no BM in 2 days 60 May 31, 2020 1:00am June 23, 2021 5:32pm7 actuat umeclidinium 0.0625 mg/actuat / vilanterol 0.025 mg/actuat dry powder inhaler (6 sources)Anticholinergic, beta2-Adrenergic AgonistStart: 03-18-2019 End: 89-36-7801Pekekkqfixql-Vilanterol (Anoro Ellipta) 62.5-25 mcg/actuation Blister With Device Discontinued 1 PUFF INHALATION Q48H March 18, 2019 12:00am June 01, 2020 10:48am Problems Active Problems Problem ClassificationProblemDateDocumented DateEpisodic/ChronicAcquired foot deformities (14 sources)Acquired left hallux valgus; Translations: [Hallux valgus (acquired), left foot]Onset: 180468-12-3313SjajimhRlzpvobb foot deformities (9 sources)Foot-drop; Translations: [Foot drop, right foot]Onset: 03-16-2025 00-56-4322WntieykgHslcubiqamodca/social admission (8 sources)Other reduced mobility; Translations: [Impaired mobility and activities of daily living]Onset: 725765-22-6732MmibkrrfYlobeer disorders (8 sources)Panic attack; Translations: [Panic disorder [episodic paroxysmal anxiety]]Onset: 418969-87-0667LoasxaiVzobbl (18 sources)Exacerbation of asthma; Translations: [Unspecified asthma with (acute) exacerbation]Onset: 215867-45-3292QowektvQzugasjcm infection; unspecified site (2 sources)History of methicillin resistant Staphylococcus aureus infection; Translations: [Personal history of Methicillin resistant Staphylococcus aureus infection]40-33-2663OuecrhsmDehdcwy obstructive pulmonary disease and bronchiectasis (8 sources)Bronchitis; Translations: [Bronchitis, not specified as acute or chronic]Onset: 072683-58-2544VseefsrzSuzqjxre injury or internal injury (9 sources)Crushing injury of left lesser toe(s), initial encounter; Translations: [Crush injury of toe of left foot]Onset: EpisodicDeficiency and other anemia (8 sources)Anemia; Translations: [Anemia, unspecified]Onset: 03-16-2025 92-14-6085SqndhiitNcgxtmjy of white blood cells (8 sources)Leukocytosis; Translations: [Elevated white blood cell count, unspecified]Onset: 668292-95-7473VgsdslmTmpuyhjgw hypertension (8 sources)Hypertensive disorder; Translations: [Essential (primary) hypertension]Onset: 690187-50-9937FdzwspnSvweptfwah (except that caused by tuberculosis or sexually transmitted disease) (1 source)Adhesive arachnoiditis; 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, unspecified] 05-45-0436OcixxzplYzuepownbezopb (14 sources)Osteoarthritis; Translations: [Unspecified osteoarthritis, unspecified site]Onset: 164121-78-8705AvjkawmUokmm acquired deformities (5 sources)Lumbar spondylolisthesis; Translations: [Spondylolisthesis, lumbar region]27-90-0525EdshqwxxSofuy acquired deformities (2 sources)Spondylolisthesis; Translations: [Spondylolisthesis, lumbar region] EpisodicOther aftercare (2 sources)High risk drug monitoring status; Translations: [correction (current) use of opiate analgesic]EpisodicOther connective tissue disease (8 sources)Fibromyalgia; Translations: [Fibromyalgia]Onset: EpisodicOther injuries and conditions due to external causes (2 sources)Foreign body in nose; Translations: [Foreign body in nostril, initial encounter]17-89-6858LrtulyzkUuurb nervous system disorders (2 sources)Chronic pain; Translations: [Other chronic pain]ChronicOther nervous system disorders (2 sources)Meralgia paresthetica; Translations: [Meralgia paresthetica, right lower limb]ChronicOther nervous system disorders (6 sources)Other chronic pain; Translations: [OTHER CHRONIC PAIN]Onset: 21-51-3231PbyupgcNhmrx nervous system disorders (4 sources)Other specified mononeuropathies of right lower limb; Translations: [OTH SPEC MONONEUROPATH RT LOW LIMB]Onset: 79-27-9532RlqfrmfOlzok nervous system disorders (1 source)Other specified mononeuropathies; Translations: [OTHER SPECIFIED MONONEUROPATHIES]Onset: 62-67-2574YoxhaygTagxs nervous system disorders (8 sources)Postoperative pain ; Translations: [Other acute postprocedural pain] Onset: 791502-62-6818CkhioclsDnvva non-traumatic joint disorders (1 source)Pain in right hip; Translations: [PAIN IN RIGHT HIP]Onset: 10-10-2022 EpisodicOther screening for suspected conditions (not mental disorders or infectious disease) (8 sources)Protein level - finding; Translations: [Other specified abnormal findings of blood chemistry]Onset: 798829-56-3966IhlvnvbgUldxp upper respiratory infections (6 sources)Chronic maxillary sinusitis; Translations: [Chronic maxillary sinusitis]26-46-7060DnqwbcbRbfohykx codes; unclassified (8 sources)Patient encounter status; Translations: [Encounter for prophylactic measures, unspecified]Onset: 706915-56-7487KylbmegoJougsurc codes; unclassified (5 sources)History of operative procedure on lumbar spinal structure; Translations: [Other specified postprocedural states]45-78-1412WdflpbguSeuxwhug codes; unclassified (2 sources)Olfactory hallucinations; Translations: [Other hallucinations] 33-91-1173BaraeshlNpmuakiwc and history of mental health and substance abuse codes (1 source)Tobacco smoking consumption nuskfal44-15-6967YhsrxvhZsxxqkctuxx; intervertebral disc disorders; other back problems (19 sources)Inflammation of sacroiliac joint; Translations: [Sacroiliitis, not elsewhere classified]Onset: 95-97-6234SgufyvcEkrvkyitspx; intervertebral disc disorders; other back problems (20 sources)Lumbar radiculopathy; Translations: [Radiculopathy, lumbar region] Onset: 050620-88-1022IidcsvmdMpjqkizzluyd (4 sources)Tobacco smoking consumption unknown; Translations: [Tobacco smoking status unknown]29-07-1493Xxybdqwxnnrz (4 sources)LOW BACK PAIN, UNSPECIFIED; Translations: [LOW BACK PAIN, UNSPECIFIED]Onset: 82-44-9094Wkxwivfqtytm (1 source)CONTACT W/AND (SUSP) EXPOS COVID-19; Translations: [CONTACT W/AND (SUSP) EXPOS COVID-19]Onset: 95-24-7982Tnwhy infection (13 sources)COVID-19; Translations: [Pneumonia due to COVID-19 virus]Onset: 384423-95-4659Lyxxmpsk Past or Other Problems Problem ClassificationProblemDateDocumented DateEpisodic/ChronicOther connective tissue disease (1 source)Arthrodesis status; Translations: [ARTHRODESIS STATUS]Onset: 69-64-5645DjytvjshSmgwrzkeqjxg (1 source)Low back pain, unspecified M54.50Unclassified (1 source)LOW BACK PAIN, UNSPECIFIED; Translations: [LOW BACK PAIN, UNSPECIFIED] Onset: 09-01-2022 Results Test NameValueInterpretationReference RangeFacilityAEROBIC CULTUREon 03-13-2025 AEROBIC CULTURE Aerobic Culture [facility] HealthcareAEROBIC CULTUREOrganism: Staphylococcus epidermidis :[facility] HealthcareAEROBIC CULTURE*ABNORMAL*[facility] HealthcareAEROBIC CULTUREBased on resistance to oxacillin this isolate would beNOMS HealthcareAEROBIC CULTURE resistant to all currently available beta-lactamNOMS HealthcareAEROBIC CULTURE antimicrobial agents, with the exception of the newerNOMS HealthcareAEROBIC CULTUREcephalosporins with anti-MRSA activity, such asNOMS HealthcareAEROBIC CULTURECeftarolineNOMS HealthcareAEROBIC CULTURELight growthNOMS Healthcare AEROBIC CULTURENot applicableNOMS HealthcareAEROBIC CULTUREStaphylococcus epidermidisNOMS HealthcareAEROBIC CULTURE O:STAEPI Isolated [facility] HealthcareAEROBIC CULTUREPerformed at: [facility] LabEn[facility] AEROBIC [id number] [place], [place] [id number] HealthcareAEROBIC CULTURELab Director: Collin Rodriguez PhD, Phone: [phone] Healthcare AEROBIC CULTURE Organism: 2.1 Antibiotic Interpretation TARA Status [facility] Healthcare[facility]IC [facility] Ciprofloxacin Ciprofloxacin R F ResistantNOMS HealthcareAEROBIC CULTURE Erythromycin Erythromycin R F ResistantNOMS HealthcareAEROBIC CULTURE Gentamicin Gentamicin S F SusceptibleNOMS HealthcareAEROBIC CULTURE Levofloxacin Levofloxacin R F ResistantNOMS HealthcareAEROBIC CULTURE Linezolid Linezolid S F SusceptibleNOMS HealthcareAEROBIC CULTURE Moxifloxacin Moxifloxacin R F ResistantNOMS HealthcareAEROBIC CULTURE Oxacillin Oxacillin R F ResistantNOMS HealthcareAEROBIC CULTURE Penicillin Penicillin R F ResistantNOMS HealthcareAEROBIC CULTURE Rifampin Rifampin S F SusceptibleNOMS HealthcareAEROBIC CULTURE Tetracycline Tetracycline R F ResistantNOMS HealthcareAEROBIC CULTURE Trimethoprim/Sulfamethoxazole Trimethoprim/Sulfamethoxazole R F ResistantNOMS HealthcareAEROBIC CULTURE Vancomycin Vancomycin S F SusceptibleNOMS HealthcareAEROBIC CULTURE Clindamycin Clindamycin R F ResistantNOMS HealthcareInterpretation and review of laboratory resultsAbnormal [facility] HealthcareANAEROBIC CULTUREon 14-88-1383JAKSDCGRQ CULTURE Anaerobic Culture [facility] HealthcareANAEROBIC CULTURESpecimen has been received and testing has been initiated.[facility] HealthcareANAEROBIC CULTUREOrganism: Fusobacterium nucleatum : [facility] HealthcareANAEROBIC CULT[facility]*ABNORMAL*[facility] HealthcareANAEROBIC CULTUREScant growthNOWI HealthcareANAEROBIC CULTUREStudies at travayl have confirmed theNOMS HealthcareANAEROBIC CULTUREobservations of others who have demonstrated thatNOWI HealthcareANAEROBIC CULTUREFusobacterium species are routinely susceptible toNOMS HealthcareANAEROBIC CULTURECefoxitin, Chloramphenicol, Clindamycin, MetronidazoleNOMS HealthcareANAEROBIC CULTUREand Penicillin.[facility] HealthcareANAEROBIC CULTUREFusobacterium nucleatumNOWI HealthcareANAEROBIC CULTURE O:FUSNUC Isolated [facility] HospitalNo Panel Informationon 56-09-4029QRLNHTG CULTUREGrowth observed. Further testing to rule out possible pathogen(s)[facility] HealthcareAEROBIC CULTURE [facility]OMFre[facility] & Sports MedicineRIGHT MAXILLARY SINUS (SURGICAL SPECIMEN) [facility] HealthL[facility]L Specimen: [id number] Received: 03/08/25 Status: TAURUS Hernandezirene Num: [id number] Spec Type: Surgical Subm Dr: JACKY BRANDON MD Tissues: A Sinus Contents/Biopsy (RIGHT SINUS CONTENTS) B Turbinates (RIGHT MIDDLE TURBINATE) Procedures: HE/2, Gross/Micro L4, Level 1 Gross Age/ Patient Sex Location Account Attending Physician Kim Hill 54/F LABELL [id number] JACKY BRANDON MD SPEC NUM: [id number] RECD: 03/08/25 STATUS: TAURUS ROSELYN NUM: [id number] ALONSO: 03/08/[address]: JACKY BRANDON MD ENTERED: 03/08/[address] [facility] [address]: Nick,Lab SPEC TYPE: Surgical DEPT: [facility] ENTERED BY: [id number] RECV BY: [id number] ORDERED: HE/2, Gross/Micro L4, Level 1 Gross ORDERED: HE/2, Gross/Micro L4, Level 1 Gross Pathological Diagnosis A. Right sinus contents: - Fragments of bone and glandular mucosa with chronic active inflammation. B. Right middle turbinate: - Fragments of bone, squamous mucosa and glandular mucosa with chronic active inflammation. Clinical Information Chronic maxillary sinusitis Gross Description Part A is received in formalin labeled with the patients date of , and Sergio, right sinus contents are owen-meredith to pink, friable to crisp tissue chips, 2.2 x 1.5 x 0.3 cm in aggregate. The specimen is filtered and entirely submitted in a single cassette. (1, ns, VA34-783 A) J Part B is received in formalin labeled with the patients date of , and Sergio, right middle turbinate is a meredith-pink and glistening sheet of mucosal lined tissue, 1.5 x 0.7 x 0.5 cm. Serial sections reveal owen-meredith to pink, friable to crisp, glistening cut surfaces. The specimen is entirely submitted in a single cassette. (1, ns, BS25- 442 B) Specimen: [id number] Received: 03/08/25 Status: TAURUS Roselyn Num: [id number] Spec Type: Surgical Subm Dr: JACKY BRANDON MD Tissues: A Sinus Contents/Biopsy (RIGHT SINUS CONTENTS) B Turbinates (RIGHT MIDDLE TURBINATE) Procedures: HE/2, Gross/Micro L4, Level 1 Gross Patient: Kim Hill [id number] (Continued) Specimen: [id number] Received: 03/08/25 (Continued) Signed (signature on file) Paresh Reddy JR, MD 03/09/25 125 Specimen: [id number] Received: 03/08/25 Status: TAURUS Roselyn Num: [id number] Spec Type: Surgical Subm Dr: JACKY BRANDON MD Tissues: A Sinus Contents/Biopsy (RIGHT SINUS CONTENTS) B Turbinates (RIGHT MIDDLE TURBINATE) Procedures: HE/2, Gross/Micro L4, Level 1 Gross Patient: Kim Hill [id number] (Continued) Specimen: [id number] Received: 03/08/25 (Continued) Microscopic Description A?B. Microscopic examination was completed. CPT Codes 05158 x 2 Specimen: [id number] Received: 03/08/25 Status: TAURUS Yu Num: [id number] Spec Type: Surgical Subm Dr: JACKY BRANDON MD Tissues: A Sinus Contents/Biopsy (RIGHT SINUS CONTENTS) B Turbinates (RIGHT MIDDLE TURBINATE) Procedures: HE/2, Gross/Micro L4, Level 1 Gross Patient: Kim Hill [id number] (Continued) Signed (signature on file) Paresh Reddy JR, MD 03/09/[address] [place] [address] Physician GroupALL CBC WITH AUTO DIFFon 06-36-2233HACMCEFTP ABSOLUTE UDQP4PVHF HealthcareBasophils/100 WBC (Bld)0.3 %0.2 - 2.0 %NOM HealthcareEosinophils/100 WBC (Bld)3.5 %0.9 - 7.0 %[facility] Erythrocyte distribution width (RBC) [Ratio]11.9 %11.0 - 15.0 %[facility] Hematocrit (Bld) [Volume fraction]36.9 %36.0 - 48.0 %[facility] HospitalHemoglobin (Bld) [Mass/Vol]12.2 g/dL12.0 - 16.0 g/dLNOWI HealthcareIMMATURE GRANULOCYTES ABS AUTO0.03NOMS HealthcareImmature granulocytes/100 WBC (Bld)0.3 %0.0 - 0.5 % [facility] HospitalInterpretation and review of laboratory resultsAbnormalNOWI HealthcareLYMPHOCYTES ABSOLUTE AUTO3.7NOMS HealthcareLymphocytes/100 WBC (Bld) 41.2 %20.5 - 60.0 %[facility] HospitalMCH (RBC) [Entitic mass]32.9 pg26.7 - 34.0 pg [facility] HospitalMCHC (RBC) [Mass/Vol]33.1 g/dL29.9 - 35.2 g/dLI-70 Community HospitalMCV (RBC) [Entitic vol]99.5 zDBpji63.0 - 99.0 fLNOWI HealthcareMONOCYTES ABSOLUTE AUTO0.6NOMS HealthcareMonocytes/100 WBC (Bld)6.3 %1.7 - 12.0 %[facility] NEUTROPHILS ABSOLUTE AUTO4.4NOMS HealthcareNeutrophils/100 WBC (Bld)48.4 %43.0 - 75.0 %[facility] HealthcarePlatelet mean volume (Bld) [Entitic vol]9.7 fL9.5 - 13.5 fL [facility] HealthcareTBH EO #0.3NOMS HealthcareTBH [id number] HealthcareTBH RBC3.71Low [facility] HealthcareTB WBC9.1NOMS HealthcareCLINISYNCNOMS HealthcareECG 12-LEADon 31-37-4776Ftq[place] [address] Electrocardiograph Report Signed Patient: KIM HILL MR#: [id number] : 1970 Acct:[id number] Age/Sex: 54 / F ADM Date: 03/02/25 Loc: PST Attending Dr: Jacky Brandon M.D. Ordering Physician: Jacky Brandon M.D. Date of Service: 03/02/25 Procedure(s): ECG 12 lead Accession Number(s): [id number] cc: The [facility] Test Date: 2025-03-02 Pat Name: KIM HILL Department: Room: - Gender: Female Cycle Repairer: : 1970 Requested By: JACKY BRANDON Order Number: [id number] Reading MD: RENE COSTELLO M.D. Measurements Intervals [place] Rate: 80 P: 35 AL: 158 QRS: 11 QRSD: 91 T: 42 [...] COSTELLO Signed By: 03/02/251844 DD/ 5 TD/TT: Telephonic Nurse Case Manager:TBHRadiology, Radiologist, - 03/02/2025 The [place] [id number] Electrocardiograph Report Signed Patient: KIM HILL MR#: [id number] : 1970 Acct:[id number] Age/Sex: 54 / F ADM Date: 03/02/25 Loc: PST Attending Dr: Jacky Brandon M.D. Ordering Physician: Jacky Brandon M.D. Date of Service: 03/02/25 Procedure(s): ECG 12 lead Accession Number(s): [id number] cc: [facility] Test Date: 2025-03-02 Pat Name: KIM HILL Department: Room: - Gender: Female Cycle Repairer: : 1970 Requested By: JACKY BRANDON Order Number: [id number] Reading MD: RENE COSTELLO M.D. Measurements Intervals [place] Rate: 80 P: 35 AL: 158 QRS: 11 QRSD: 91 T: 42 QT: 355 QTc: 410 Interpretive Statements SINUS RHYTHM LOW QRS VOLTAGE IN PRECORDIAL LEADS [QRS DEFLECTION < 1.0 mV IN CHEST LEADS] Abnormal ECG Compared to ECG 04/27/2024 03:24:55 Low QRS voltage now present Sinus tachycardia no longer present Electronically Signed On 03-02-2025 18:45:07 EDT by RENE COSTELLO M.D. Dictated By: RENE COSTELLO Signed By: 03/02/25 184 DD/ 0826 TD/TT: Telephonic Nurse Case Manager: [facility] HealthcareRadiology Study observation (narrative)NOM HealthcareECG 12-LEAD Ordered By: Radiologist Radiology on 95-76-8643[facility] Work Phone: xr CHEST 2Von 96-98-6093[place]juT[place] [address] XRay Report Signed Patient: KIM HILL MR#: [id number] : 1970 Acct:[id number] Age/Sex: 54 / F ADM Date: 03/02/25 Loc: PST Attending Dr: Jacky Brandon M.D. Ordering Physician: Jacky Brandon M.D. Date of Service: 03/02/25 Procedure(s): XR chest 2V Accession Number(s): [id number] cc: EISENSTEIN,Jacky Jackson M.D. The [address] [address] Patient Name: KIM HILL [facility]:[id number] date: 1970 Sex: F Assigned Patient Location: [facility] Current Patient Location: [facility] Accession/Order Number: [id number] Exam Date: 03/02/2025 08:50 Report Date: 03/02/2025 [...] Alva M.D. 03/02/2025 9:02 AM Dictation Location: [place] [address] Electronically authenticated by: [id number] Y Date: 03/02/2025 09:02 Dictated By: Tate Alva M.D. Signed By: 03/02/25904 DD/ 1 TD/TT: Telephonic Nurse Case Manager:JAENadiology, Radiologist, - 03/02/2025 [place] [address] XRay Report Signed Patient: KIM HILL MR#: [id number] : 1970 Acct:[id number] Age/Sex: 54 / F ADM Date: 03/02/25 Loc: [facility] Attending Dr: Jacky Brandon M.D. Ordering Physician: Jacky Brandon M.D. Date of Service: 03/02/25 Procedure(s): XR chest 2V Accession Number(s): [id number] cc: ABY MARK Hilary M.D. The [address] [address] Patient Name: KIM HILL MRN: [id number] date: 1970 Sex: F Assigned Patient Location: [facility] Current Patient Location: [facility] Accession/Order Number: [id number] Exam Date: 03/02/2025 08:50 Report Date: 03/02/2025 [...] Alva M.D. 03/02/2025 9:02 AM Dictation Location: [place] [address] Electronically authenticated by: [id number] Y Date: 03/02/2025 09:02 Dictated By: Tate Alva M.D. Signed By: 03/02/25904 DD/ 1 TD/TT: Telephonic Nurse Case Manager: [facility] HealthcareRadiology Study observation (narrative)NOM HealthcareXR CHEST 2V Ordered By: Radiologist Radiology on 90-13-1058[facility] Work Phone: ct SINUS WO CONon [phone] [address] CT Scan Report Signed Patient: KIM HILL MR#: [id number] : 1970 Acct:[id number] Age/Sex: 54 / F ADM Date: 02/15/25 Loc: CT Attending Dr: Jacky Brandon M.D. Ordering Physician: Jacky Brandon M.D. Date of Service: 02/15/25 Procedure(s): CT sinus wo con Accession Number(s): [id number] cc: ABY MARK [place] [id number] Patient Name: KIM HILL MRN: [id number] date: 1970 Sex: F Assigned Patient Location: CT Current Patient Location: Accession/Order Number: [id number] Exam Date: 02/15/2025 15:20 Report Date: 02/16/2025 [...] Mckee M.D. 02/16/2025 8:13 AM Dictation Location: [place] [address] Electronically authenticated by: [id number] Y Date: 02/16/2025 08:13 Dictated By: Shalonda Mckee M.D. Signed By: 02/16/25815 DD/ 2 TD/TT: Telephonic Nurse Case Manager:TBHRadiology, Radiologist, - 02/16/2025 [place] [address] CT Scan Report Signed Patient: KIM HILL MR#: [id number] : 1970 Acct:[id number] Age/Sex: 54 / F ADM Date: 02/15/25 Loc: CT Attending Dr: Jacky Brandon M.D. Ordering Physician: Jacky Brandon M.D. Date of Service: 02/15/25 Procedure(s): CT sinus wo con Accession Number(s): [id number] cc: ABY MARK [place] [address] Patient Name: KIM HILL MRN: [facility]:[id number] date: 1970 Sex: F Assigned Patient Location: CT Current Patient Location: Accession/Order Number: [id number] Exam Date: 02/15/2025 15:20 Report Date: 02/16/2025 [...] Mckee M.D. 02/16/2025 8:13 AM Dictation Location: [place] [address] Electronically authenticated by: [id number] Y Date: 02/16/2025 08:13 Dictated By: Shalonda Mckee M.D. Signed By: 02/16/25815 DD/ 2 TD/TT: Telephonic Nurse Case Manager: [facility] HealthcareRadiology Study observation (narrative)NOM HealthcareCT SINUS WO CONOrdered By: Radiologist Radiology on 90-66-8208[facility] Work Phone: cNPNon [phone] (NIQ) KIM HILL ([id number]) 1970 F Date Time Provider Department 06/22/24 [...] instructing patient to call office or check Evermind messages for details. Ness Corbett RN June [...] drop [M21.371] Order(s):CT LUMBAR SPINE WO IVCON [5076586] Order #: [id number] FUTURE EMG(NEURO/NI) [[id number]] Order #: [id number]: 1 FUTURE XR LUMBAR MOTION 4V AP/LAT/ FLEX/EXT [6006171] Order #: [id number] FUTURE Prescriptions as of 06/23/2024 - gabapentin (NEURONTIN) 600 mg tablet Take 600 mg by mouth three times a day. - hydrocodone/acetaminophen (NORCO ORAL) Take 7.5 mg by [...] mg by mouth daily at bedtime. - hswgaipwiru-mtobarnom-sjrjolfv (TRELEGY ELLIPTA) 100-62.5-25 mcg inhalation powder Inhale [...] (None) Encounter Status:Closed by KENAN GODOY on 06/23/24[facility] 43-79-4907KSOLSmxsyc Visit (SPNSMN) KIM HILL ([id number]) 1970 F Date Time Provider Department 06/09/24 4:00 PM LOS SARMIENTO JOSEMN During your visit today, we recorded the following information about you: Pulse Blood pressure Weight Height 92/minute 104/52 98 kg 1.6 m Los Sarmiento MD 06/16/2024 5:55 PM Signed Rescheduled, no charge Referring Provider: ABY MARK [[id number]] Allergies As of Date: 06/09/2024 Noted Allergy [...] by mouth three times a day. - hydrocodone/acetaminophen (NORCO ORAL) Take 7.5 mg by [...] mg by mouth daily at bedtime. - umbgtarosmj-rdvbutbwj-aeyacsgt (TRELEGY ELLIPTA) 100-62.5-25 mcg inhalation powder Inhale [...] (None) Encounter Status:Closed by LOS SARMIENTO on 06/16/24[facility] + w/on 91-14-7382VIW Lumbar Spine w/o + w/HISTORY: Chronic back pain radiating to the right leg. [...] and signed by Justice Lucas on 07/31/2022 0915NormalNortabrazo west campusn [facility] SpecialistAutomated erythrocytes count in urine sediment (number/area)Ordered By: Paresh Tian on 77-82-6159ODQ Auto (Urine sed) [#/Area]1-2 [HPF]0-4Fire[facility] Regional Medical CenterAutomated leukocytes count in urine sediment (number/area)Ordered By: Paresh Tian on 13-40-5299NXB Auto (Urine sed) [#/Area]20-49 [HPF]0-4FDayton Osteopathic HospitalBasophils Auto (Bld) [#/Vol]Ordered By: Paresh Tian on 93-17-6372Lxnoxqyux (Bld) [#/Vol]0.0 10*3/uL0.0-0.2FDayton Osteopathic HospitalBasophils/100 WBC Auto (Bld)Ordered By: Paresh Tian on 72-37-9071Axqcckcep/100 WBC (Bld)0.4 %. [facility] HospitalBilirubin Test strip Ql (U)Ordered By: Paresh Tian on 74-09-1152Uurxfwgka Ql (U)NegativeNegativeKeenan Private HospitalC reactive protein [Mass/volume] in Serum or PlasmaOrdered By: Paresh Tian on 98-28-4443MSM [Mass/Vol]0.8 mg/dL0.0-1.0[facility] HospitalColor Auto (U)Ordered By: Paresh Tian on 27-88-0645Jnmiy (U)Yellow YellowKeenan Private HospitalCreatinine and Glomerular filtration rate.predicted panel (S/P/Bld)Ordered By: Paresh Tian on 05-54-6523Ldwsygokiy [Mass/Vol]0.74 mg/dL0.44-1.03[facility] HospitalEosinophils Auto (Bld) [#/Vol]Ordered By: Paresh Tian on 62-93-7004Posaqxklten (Bld) [#/Vol] 0.1 10*3/uL0.0-0.45[facility] HospitalEosinophils/100 WBC Auto (Bld)Ordered By: Paresh Tian on 01-46-4802Erwohpiudnk/100 WBC (Bld)1.1 %. [facility] HospitalErythrocyte distribution width Auto (RBC) [Ratio]Ordered By: Paresh Tian on 45-80-9020Afuhrwllhiu distribution width (RBC) [Ratio]13.0 %11.9-15.3Fire[facility] Regional Medical CenterErythrocyte sedimentation rate by Photometric methodOrdered By: Paresh Tian on 07-16-2022 ESR Photometric method (Bld) [Velocity]45 mm/hr0-29[facility] HospitalEstimated glomerular filtration rate (GFR) non- AmericanOrdered By: Paresh Tian on 01-26-2631TKV/1.73 sq M.predicted among non-blacks MDRD (S/P/Bld) [Vol rate/Area]> 60 mL/MinKeenan Private HospitalHematocrit Auto (Bld) [Volume fraction]Ordered By: Paresh Tian on 61-31-7850Kcxfgjirat (Bld) [Volume fraction]45.3 %34.0-46.4FDayton Osteopathic Hospital Hemoglobin [Mass/volume] in BloodOrdered By: Paresh Tian on 07-16-2022 Hemoglobin (Bld) [Mass/Vol]15.2 g/dL11.8-15.4FDayton Osteopathic Hospital Ketones Auto test strip (U) [Mass/Vol]Ordered By: Paresh Tian on 07-16-2022 Ketones (U) [Mass/Vol]NegativeNegativeKeenan Private Hospital Laboratory - UrinalysisOrdered By: Paresh Tian on 50-58-2249Zhqhako casts LM Ql (Urine sed)0-8 [LPF]0-8[facility] HospitalLeukocytes [#/volume] corrected for nucleated erythrocytes in Blood by Automated counOrdered By: Paresh Tian on 97-52-1611VHE corrected for nucl RBC Auto (Bld) [#/Vol]10.4 10*3/uL3.8-11.6FDayton Osteopathic HospitalLymphocytes Auto (Bld) [#/Vol] Ordered By: Paresh Tian on 56-48-7884Lpaltviuuco (Bld) [#/Vol]3.7 10*3/uL 1.00-4.8[facility] HospitalLymphocytes/100 WBC Auto (Bld)Ordered By: Paresh Tian on 05-69-7673Wzacxarbywo/100 WBC (Bld)35.0 %.[facility] Auto (RBC) [Entitic mass]Ordered By: Paresh Tian on 05-01-9896FRW (RBC) [Entitic mass]33.8 pg24.7-34.3FDoctors Hospital Auto (RBC) [Mass/Vol]Ordered By: Paresh Tian on 34-49-0623TMER (RBC) [Mass/Vol]33.6 g/dL32.0-35.0[facility] HospitalMCV Auto (RBC) [Entitic vol]Ordered By: Paresh Tian on 03-34-7365WLS (RBC) [Entitic vol]100.6 bR86-877TjvntdswwKeenan Private HospitalMitotic spindle apparatus Ab [Titer] in Serum or Plasma by ImmunofluorescenceOrdered By: Paresh Tian on 04-09-7885Gtoakga spindle apparatus Ab IF [Titer]1:160.[facility] HospitalComment on above:ICAP nomenclature: AC-25,26Monocytes Auto (Bld) [#/Vol]Ordered By: Paresh Tian on 55-40-2064Ppkmgypmh (Bld) [#/Vol]0.7 10*3/uL0.0-0.8[facility] HospitalMonocytes/100 WBC Auto (Bld) Ordered By: Paresh Tian on 52-38-9742Dlegzwfzx/100 WBC (Bld)6.8 %.[facility] HospitalNeutrophils Auto (Bld) [#/Vol]Ordered By: Paresh Tian on 28-18-0814Ijnehvdgerq (Bld) [#/Vol]5.9 10*3/uL1.8-7.7FDayton Osteopathic HospitalNeutrophils/100 WBC Auto (Bld)Ordered By: Paresh Tian on 17-28-6554Wkaigvihfpp/100 WBC (Bld)56.7 %.[facility] Nitrite Test strip Ql (U)Ordered By: Paresh Tian on 23-98-8889Uqtttec Ql (U) NegativeNegativeKeenan Private HospitalNo Panel InformationOrdered By: Paresh Tian on 52-44-8342Hljd-Nuclear Antibody Comment 2See comment. [facility] HospitalComment on above:For more information about Hep-2 cell patterns useANApatterns.org, the official website for the [facility] rnaorthocolorado hospital at st. anthony medical campusConsensus on Antinuclear Antibody (ASTER) Patterns (ICAP). A positive ASTER result may occur in healthy individuals (lowtiter) or be associated with a variety of diseases. Seeinterpretation chart which is not all inclusive:Pattern Antigen Detected Suggested Disease Association Homogeneous DNA(ds,ss), SLE - High titers Nucleosomes, Histones Drug-induced SLE Speckled Sm, COST REPORT CLERK, SCL-70, SLE,MCTD,PSS (diffuse form), SS-A/SS-B Sjogrens Nucleolar SCL-70, PM-1/SCL Hightiters Scleroderma, PM/DM Centromere Centro mere PSS (limited form) w/Crest syndrome variable Nuclear Dot Sp100,v35-vfxlvt Primary Biliary Cirrhosis Nuclear GP210, Primary Biliary CirrhosisMembrane kailyn A,B,C Performed at: [facility] [address] [id number] Director: Collin Rodriguez PhD, Phone: [phone] Estimated GFR ()> 60 mL/MinKeenan Private Hospital Comment on above:GFR estimated reference range: According to KDOQI guidelines, <60 ml/min/1.73m2 is sufficient todiagnose a patient with chronic kidney disease.Pharmacy Creatinine Clearance (ChemN/[facility] Total Complement (CH50)>60 U/mL>41[facility] HospitalComment on above:Age Male Female 1 - 30 days Not Estab. Not Estab. 31 days - 6 months >32 >20 7 months - 17 years >39 >39 >17 years >41 >41 NOTE: The adult ( >17 years ) reference intervalrange is used to flag abnormals on this report. If the patient is 17 years old or younger, use the table above to determine out of range values.Performed at: [facility] [address] [id number] Director: Collin Rodriguez PhD, Phone: [phone] erythrocytes [Presence] in Blood by Automated countOrdered By: Paresh Tian on 38-30-3059Hzmgrmthy RBC Auto Ql (Bld)0.1 /100{WBC}0-0.5FDayton Osteopathic HospitalPlatelet mean volume Auto (Bld) [Entitic vol]Ordered By: Paresh Tian on 24-85-5620Woglsehj mean volume (Bld) [Entitic vol]8.4 fL6.3-10.7 [facility] HospitalPlatelets Auto (Bld) [#/Vol]Ordered By: Paresh Tian on 58-00-8507Rszpfdtaw (Bld) [#/Vol]242 10*3/dF378-109GfqjluuryKeenan Private HospitalProtein Auto test strip (U) [Mass/Vol]Ordered By: Paresh Tian on 75-77-1014Vvsmvpn (U) [Mass/Vol]NegativeNegativeKeenan Private HospitalRBC Auto (Bld) [#/Vol]Ordered By: Paresh Tian on 18-16-6299DMS (Bld) [#/Vol]4.50 10*6/uL3.60-5.00Mercy Memorial Hospitalerum homogeneous pattern antinuclear antibody (ASTER) titerOrdered By: Paresh Tian on 07-16-2022 Homogenous nuclear Ab pattern (S) [Titer]N/AFDayton Osteopathic Hospital Serum nuclear antibody titerOrdered By: Paresh Tian on 97-86-1217Suzkuzy Ab (S) [Titer]Positive.[facility] HospitalComment on above:Negative <1:80 Borderline 1:80 Positive >1:80Serum or plasma complement C3 measurement (mass/volume)Ordered By: Paresh Tian on 68-24-8139Avnbrpjfae C3 [Mass/Vol]197 mg/cS17-170YamimxnflKeenan Private HospitalComment on above:Performed at: - LabJessica [place] [id number] Director: Collin Rodriguez PhD, Phone: [phone] or plasma complement C4 measurement (mass/volume)Ordered By: Paresh Tian on 55-09-4081Wabcmzfzmh C4 [Mass/Vol]42 mg/hQ48-93XphgzjnzeMercy Memorial Hospitalpecific gravity Auto test strip (U) [Rel density]Ordered By: Paresh Tian on 56-82-6856Kchgxxky gravity (U) [Rel density]1.0181.001-1.030Mercy Memorial Hospitalquamous epithelial cells detection in urine sediment by light microscopyOrdered By: Paresh Tian on 42-78-2099Qqylfevtra cells.squamous LM Ql (Urine sed)0-1 [HPF]0-2FDayton Osteopathic HospitalUrine bacteria detection by automated methodOrdered By: Paresh Tian on 06-62-3833Ncqkoylm Auto Ql (U)4+None SeenKeenan Private HospitalUrine clarity by refractometry automatedOrdered By: Paresh Tian on 48-54-1335Irtowpp Refractometry automated (U)ClearClearFDayton Osteopathic HospitalUrine culture routineOrdered By: Paresh Tian on 07-16-2022 Bacteria identified Cx Nom (U)Escherichia coliKeenan Private Hospital Urine glucose measurement by automated test strip (mass/volume)Ordered By: Paresh Tian on 03-74-3518Pgrfbxh Auto test strip (U) [Mass/Vol]Normal mg/dL NormalKeenan Private HospitalUrine hemoglobin detection by automated test stripOrdered By: Paresh Tian on 26-06-9610Omfkpiwlzx Auto test strip Ql (U)NegativeNegativeKeenan Private HospitalUrine leukocyte esterase detection by automated test stripOrdered By: Paresh Tian on 07-16-2022 Leukocyte esterase Auto test strip Ql (U)3+NegativeKeenan Private HospitalUrobilinogen Auto test strip (U) [Mass/Vol]Ordered By: Paresh Tian on 51-29-2929Neqqjcnmhocf (U) [Mass/Vol]Normal mg/dLNormalKeenan Private HospitalWBC Auto (Bld) [#/Vol]Ordered By: Paresh Tian on 82-50-5616ILS (Bld) [#/Vol]10.4 10*3/uL3.8-11.6FDayton Osteopathic HospitalpH Auto test strip (U)Ordered By: Paresh Tian on 90-07-1394aD (U)6.5 [pH]5.0-9.0[facility] Private HospitalXR HIPS ZEINA 3_4V WO PELVISon 90-55-2741MW HIPS ZEINA 3_4V WO PELVISEXAMINATION: XR HIPS ZEINA 3_4V WO PELVIS HISTORY: [...] Electronically authenticated by: DASHA KHAN Date: 2022-05-15 07:49NormTwin City HospitalCovid-19 PCR ([facility]DR[facility])on 56-16-0735KMYL-CoV-2 (COVID-19) RNA AMBERLY+probe Ql (Unsp spec)Not detectedNormalNOT DETECTEDThe [facility] Comment on above:Result Comment: This test is not yet approved or cleared by the [place] FDA. When there are no FDA-approved or cleared tests available, and other criteria are met, FDA can make tests available under an emergency access mechanism called an Emergency Use Authorization (EUA). The EUA for this test is supported by the Basket Machine Operator of Health and Human Service's (HHS's) declaration that circumstances exist to justify the emergency use of in vitro diagnostics for the detection and/or diagnosis of the virus that causes COVID- 19. This EUA will remain in effect (meaning [...] of clinical signs and symptoms consistent with SARS-CoV-2.Performed By: #### [facility]DROS[facility] #### [facility] [address] [place] [address] Dr. Narendra Li-19 Positive/NegativeOrdered By: Baljinder Rausch on 60-96-9901CUEP-CoV-2 (COVID-19) N gene AMBERLY+probe Ql (Resp)NegativeNegative [facility] HospitalComment on above:Testing for SARS-CoV-2 by RT-PCR This test was developed and its performance characteristics determined by [employer] ([place]) and validated at the [facility]. This test has not been FDA [...] of time the declaration that circumstances exist ju stifying the authorization of the emergency use of in vitro diagnostic tests for detection of SARS-CoV-2 virus and/or diagnosis of COVID-19 infection under section 564(b)(1) of the Act, 21 U.S.C. 360bbb-3(b)(1), unless the authorization is terminated or revoked sooner.COVID-19 Positive/Negativeon 49-25-0387TXTHF-19 Positive/NegativeNegativeNegativeBellevue Hospital CtrComment on above:Testing for SARS-CoV-2 by RT-PCRThis test was developed and its performance characteristics determined by [employer] ([place]) and validated at the [facility]. This test has not been FDA [...] unless the authorization is terminated or revoked sooner.Otheron 05-20-2020 Coronavirus 2019 PCR InterpN/AFAdena Pike Medical Center CtrAutomated basophil % on 61-87-2447Oaglcihrr/100 WBC (Bld)0.5 %[facility] CtrAutomated basophil counton 37-59-1354Dxiisojyn (Bld) [#/Vol]0.0 10*3/uL0.0-0.2FAdena Pike Medical Center CtrAutomated blood lymphocyte count (number/volume)on 00-36-9432Comceknztxl (Bld) [#/Vol]2.8 10*3/uL1.00-4.8[facility] CtrAutomated blood lymphocyte count as percentage of total leukocyteson 08-75-3594Oacxthqbzpp/100 WBC (Bld)35.0 %[facility] CtrAutomated blood monocyte counton 03-62-9853Oxstphjgn (Bld) [#/Vol]0.6 10*3/uL0.0-0.8 [facility] CtrAutomated blood platelet count (count/volume)on 67-56-5562Kvuqkbtwv (Bld) [#/Vol]225 10*3/sG716-466DwzomqrszBellevue Hospital CtrAutomated blood platelet mean volume measurementon 53-35-4311Benhgvja mean volume (Bld) [Entitic vol]8.2 fL6.3-10.7FAdena Pike Medical Center CtrAutomated eosinophil %on 17-38-2382Kcratgxiomx/100 WBC (Bld)1.5 %[facility] CtrAutomated eosinophil counton 96-00-5382Ivzemaapbdh (Bld) [#/Vol]0.1 10*3/uL0.0-0.45[facility] CtrAutomated erythrocyte distribution width ratioon 82-28-7193Moenocjkgnq distribution width (RBC) [Ratio]12.3 % 11.9-15.3FAdena Pike Medical Center CtrAutomated erythrocyte mean corpuscular hemoglobin (mass per erythrocyte)on 58-03-4744JLC (RBC) [Entitic mass]35.2 pg 24.7-34.3FAdena Pike Medical Center CtrAutomated erythrocyte mean corpuscular hemoglobin concentration measurement (mass/volon 25-94-3845DBAB (RBC) [Mass/Vol] 34.2 g/dL32.0-35.0[facility] CtrAutomated erythrocyte mean corpuscular volumeon 37-43-5483UTJ (RBC) [Entitic vol]102.9 dL10-910GfujtspwuBellevue Hospital CtrAutomated monocyte %on 00-95-9895Uytrjrcph/100 WBC (Bld)7.0 %[facility] CtrAutomated neutrophil %on 05-14-2020 Neutrophils/100 WBC (Bld)56.0 %[facility] CtrBlood erythrocytes automated count (number/volume)on 81-13-1435XWJ (Bld) [#/Vol]4.08 10*6/uL 3.60-5.00[facility] CtrBlood hemoglobin measurement (mass/volume)on 60-92-9664Pipgpztohx (Bld) [Mass/Vol]14.3 g/dL11.8-15.4FFisher-Titus Medical CenterBlood leukocytes automated count (number/volume)on 59-02-8470ZBQ (Bld) [#/Vol]7.9 10*3/uL4.5-11.0[facility] Blood neutrophil count by automated method (number/volume)on 05-14-2020 Neutrophils (Bld) [#/Vol]4.4 10*3/uL1.8-7.7FFisher-Titus Medical Center Estimated glomerular filtration rate (GFR) non- Americanon 05-14-2020 GFR/1.73 sq M predicted among non-blacks MDRD (S/P/Bld) [Vol rate/Area] mL/min/{1.73_m2}[facility] CtrHematocrit [Volume Fraction] of Blood by Automated counton 89-37-9522Brpofaaxbl (Bld) [Volume fraction]41.9 % 34.0-46.4FAdena Pike Medical Center CtrOtheron 26-75-0519RVK/1.73 sq M.predicted MDRD (S/P/Bld) [Vol rate/Area]mL/min/{1.73_m2}[facility] Comment on above:GFR estimated reference range: According to KDOQI guidelines, <60 ml/min/1.73m2 is sufficient todiagnose a patient with chronic kidney disease.Nucleated RBC/100 WBC (Bld) [Ratio]0.1 %0-0.5FAdena Pike Medical Center CtrPharmacy Creatinine Clearance (ChemN/AFAdena Pike Medical Center CtrSerum or plasma calcium measurement (mass/volume)on 96-18-4407Foqeuvv [Mass/Vol]10.1 mg/dL8.2-10.2FAdena Pike Medical Center CtrSerum or plasma chloride measurement (moles/volume)on 93-54-5474Mdfqlmdj [Moles/Vol]101 mmol/A86-149YideteujjBellevue Hospital CtrSerum or plasma creatinine measurement with calculation of estimated glomerular filtron 56-81-6938Bnlbgkafrh [Mass/Vol]0.60 mg/dL0.44-1.03 [facility] CtrSerum or plasma glucose measurement (mass/volume) on 57-82-6128Kmdobhf [Mass/Vol]94 mg/hP35-082PeyvjkrmlMer[facility] Comment on above:ADA recommended reference rangeRandom Glucose Reference Range is dependent on time and content of last meal. Glucose of more than 200 mg/dL in a nonstressed, ambulatory subject supports the diagnosisof Diabetes Mellitus. Serum or plasma potassium measurement (moles/volume)on 96-88-9736Qfizflfcf [Moles/Vol]4.3 mmol/L3.5-5.1FAdena Pike Medical Center CtrSerum or plasma sodium measurement (moles/volume)on 09-13-2130Ypjled [Moles/Vol]140 mmol/L338-799 [facility] CtrSerum or plasma total carbon dioxide measurement (moles/volume)on 32-49-3898NI5 [Moles/Vol]27.2 mmol/L22.0-30.0[facility] CtrSerum or plasma urea nitrogen measurement (mass/volume)on 05-14-2020 Urea nitrogen [Mass/Vol]7 mg/dL9-23[facility] Vital Signs Date TimeVital SignValuePerforming XyrnaxjxjDitsjaom63-87-6193 11:49-0400Body mhpmyn202 cmJacky Brandon MD Work Phone: [facility] HospitalCjnhysaust77-68-7184 11:49-0400Body mass index (BMI) [Ratio]37.91 kg/v6PkpokzJacky Brandon MD Work Phone: [facility] HospitalAbukdrkbkw04-66-2778 11:49-0400Body ukdabz89.07 kgJacky Brandon MD Work Phone: [facility] HospitalPaaubcimkp23-65-3947 11:49-0400Diastolic blood nyazbqke43 mm[Hg]Jacky Brandon MD Work Phone: [facility] HospitalFxmhrofpjo56-81-3752 11:49-0400Heart vnmd957 /min Jacky Brandon MD Work Phone: [phone] [place], [place] 5922610-17-2025 11:49-0400Systolic blood fyfixrfb736 mm[Hg]Jacky Brandon MD Work Phone: [phone] [place], [place] 5922609-29-2025 15:08-0400Body pzondn226 cm Jacky Brandon MD Work Phone: [phone] [place], [place] [address]Bmvtpcrwav86-01-2746 15:08-0400Body mass index (BMI) [Ratio]37.91 kg/t3QfbdseJacky Brandon MD Work Phone: [phone])[address] [place], [place] 5922609-29-2025 15:08-0400Body ulozzw00.07 kgJacky Brandon MD Work Phone: [phone])[address] [place], [place] 5922609-29-2025 15:08-0400Diastolic blood mm[Hg]Jacky Brandon MD Work Phone: [phone])[address] [place], [place] 5922609-29-2025 15:08-0400Heart tzaa326 /min Jacky Brandon MD Work Phone: [phone] [place], [place] 5922609-29-2025 15:08-0400Systolic blood pzygqbed61 mm[Hg]Jacky Brandon MD Work Phone: [phone] [place], [place] 5922607-22-2025 15:03-0400Body algtwk906 cm Jacky Brandon MD Work Phone: [phone] [place], [place] [address]Ewunqurnzf34-18-2993 15:03-0400Body mass index (BMI) [Ratio]41.1 kg/q2JlnkwbJacky Brandon MD Work Phone: [phone])[address] [place], [place] 5922607-22-2025 15:03-0400Body dseqpr237.23 kgJacky Brandon MD Work Phone: [phone])[address] [place], [place] 5922607-22-2025 15:03-0400Diastolic blood macsymtn25 mm[Hg]Jacky Brandon MD Work Phone: [phone])[address] [place], [place] 5922607-22-2025 15:03-0400Heart rate96 /min Jacky Brandon MD Work Phone: [facility] HospitalGqpxxjkxpd26-91-7497 15:03-0400Systolic blood mm[Hg]Jacky Brandon MD Work Phone: [facility] HospitalSwcnmhorir56-26-4259 14:59-0400Body cm Los Sarmiento MD Work Phone: [phone]04-29-2025 14:59-0400Body mass index (BMI) [Ratio]38.14 kg/t6NiqquenLos Sarmiento MD Work Phone: [phone]04-29-2025 14:59-0400Body sfcvvu25.65 kgLos Sarmiento MD Work Phone: [facility]04-29-2025 14:59-0400Diastolic blood ljybcaha74 mm[Hg]Los Sarmiento MD Work Phone: [facility]04-29-2025 14:59-0400Heart rate96 /min Los Sarmiento MD Work Phone: [phone]04-29-2025 14:59-0400Respiratory rate 16 /minLos Sarmiento MD Work Phone: [phone]04-29-2025 14:59-6299VhZ7% (BldA) [Mass fraction]98 %Los Sarmiento MD Work Phone: [phone]04-29-2025 14:59-0400Systolic blood gmfqaeve162 mm[Hg]Los Sarmiento MD Work Phone: [facility]03-20-2023 16:00-0400Body bdfmie541.02 cmDeLybrate BladeProfitect Other noCombiMatrix Other 03-20-2023 16:00-0400Body mass index (BMI) [Ratio] 40.56 kg/u8Dsddglx Blades Other noCombiMatrix Other 03-20-2023 16:00-0400Body zwgvji835.87 kgDeborblade Blades Other nort [employer] Other 68-38273429-91-7167 16:00-0400Diastolic blood lesyouaa61 mm[Hg] Gina Blades Other noMed ePad [employer] Other 81-28361733-85-7451 16:00-0400Systolic blood kjljxzem116 mm[Hg] Gina Blades Other [facility] [employer] Other Encounters Encounter DateEncounter TypeCare ProviderFacilityStart: 03-16-2025 End: 02-38-2224Uufbapraghu Brandon MD Work Phone: [facility] OtolaryngologyStart: 03-16-2025 End: 75-32-2294Vlixqhraghu Brandon MD Work Phone: [facility] OtolaryngologyStart: 03-16-2025 End: 51-68-3290Thhgwx outpatient visit 25 minutesJacky Brandon MD Work Phone: [facility]oms [facility] OtolaryngologyComment on above:Chronic maxillary sinusitis (Primary Dx); Foreign body in nose, initial encounterStart: 03-16-2025 End: 88-70-7915sqdfabeninZGHOQB H TIMMISNot AvailableStart: 03-08-2025 End: 22-96-3232Crwxgcbga Result EncounterJacky Brandon MD Work Phone: noms External Department UnsolicitedStart: 03-08-2025 End: 56-99-9846Hcribyfpd Result EncounterJacky Brandon MD Work Phone: noms External Department UnsolicitedStart: 03-08-2025 End: 90-36-5590waauyodqpwAmltgw H Timmis [facility] Work Phone: Start: 03-08-2025 End: 80-36-6357Dpirutjv ReferredJACKY BRANDON MD-LAB [facility] Start: 03-02-2025 End: 12-89-7049Pypcjevmn Result EncounterJacky Brandon MD Work Phone: noms External Department UnsolicitedStart: 03-02-2025 End: 33-17-3468Fssrsiqnq Result EncounterJacky Brandon MD Work Phone: noms External Department UnsolicitedStart: 02-26-2025 End: 00-66-9330Iywlar outpatient visit 40 minutesJacky Brandon MD Work Phone: noms [place] OtolaryngologyComment on above:Chronic maxillary sinusitis (Primary Dx)Start: 02-26-2025 End: 19-26-4041jvrpdsthsjKTFMOX H TIMMISNot AvailableStart: 02-26-2025 End: 50-23-1278Foycej flowsheetJacky Brandon MD Work Phone: [facility] [place] OtolaryngologyStart: 02-26-2025 End: 23-38-2398Mrffdl flowsheetJacky Brandon MD Work Phone: [facility]oms [place] OtolaryngologyStart: 02-16-2025 End: 93-78-2513Ofzxcxaul Result EncounterJacky Brandon MD Work Phone: noms External Department UnsolicitedStart: 02-16-2025 End: 63-30-0827Jfibgedcd Result EncounterJacky Brandon MD Work Phone: noms External Department UnsolicitedStart: 02-05-2025 End: 54-41-1218vvftjltvngBcsbuue Vytautas Giedleighton BUSTILLOFacility:[facility] Start: 12-19-2024 End: 85-42-8497Kdxmvb outpatient new 45 minutesJacky Brandon MD Work Phone: NOMS CI ENTComment on above:Phantosmia (Primary Dx); Chronic maxillary sinusitis; History of MRSA infectionStart: 12-19-2024 End: 19-61-5852wnmwtpvbhnOQBQYY H TIMMISNot AvailableStart: 12-19-2024 End: 79-05-5697Xzabaelety Brandon MD Work Phone: noms CI ENTStart: 12-19-2024 End: 11-76-5572Gorjlilety Brandon MD Work Phone: noms CI ENTStart: 09-26-2024 End: 02-53-5306Rgnvgkt encounter Jeanette Sarmiento MD Work Phone: jih InstituteComment on above:Spinal stenosis of cervical region (Primary Dx); Lumbar radiculopathy; Adhesive arachnoiditis (HCC)Start: 69-18-7358lhksewvyrcQVLDLTS E CLIFTON [facility]: 08-28-2024 End: 78-87-4118pjpztsnqxfQsvhpjy Vytautas Giedraitis Facility:[facility] Start: 06-22-2024 End: 74-45-8149Qoaqximdw encounterLos Sarmiento MD Work Phone: NeurologyComment on above:OrdersStart: 06-16-2024 End: 25-08-5990iqszpggsulCnrfykgVeronica Sarmiento MD Work Phone: spine InstituteComment on above:Lumbar radiculopathy (Primary Dx)Start: 06-16-2024 End: 33-43-1739Locjeqyjevbp consultation with Barb Sarmiento MD Work Phone: spine InstituteStart: 12-03-2176sllgwooinxGQIUEZRE EISENSTEINFacility:[facility]art: 04-24-2024 End: 02-07-8081sesjcvbcnxHzpsagm Vytautas Giedraitis MDFacility:[facility] Start: 03-27-2024 End: 48-65-5290wnzyrdbaepThgkbgr Vytautas Giedraitis MDFacility:[facility] Start: 03-06-2024 End: 56-17-9395Tlple Michaela Sarmiento MD Work Phone: NeurologyStart: 04-78-5590olrbftovvnWJDPMHFJEBTR LAKSHMIPATHY .Facility:F6Jcaer: 10-13-2022 End: 59-63-0929lxwtlsqpuxXRLHEVGOUMAI LAKSHMIPATHY .Facility:T3Dvjnf: 10-06-2022 End: 32-26-6700qiqvltbxqyCTADCFHUKBOD LAKSHMIPATHY .Facility:J0Xksfp: 09-08-2022 End: 44-14-4420vpyernlarpKbolhiw Blades Other [facility] FreePriceAlerts Other start: 35-43-3519Wiqqekgqm encounterNorth [facility] NeurosurgeryStart: 09-01-2022 End: 05-37-2403cfnfesvjytGJBKGFZKSSVP LAKSHMIPATHY .Facility:O1Zaxtw: 08-17-2022 End: 73-16-8585Yxxyusb encounter procedureDO Roberto Roth Work Phone: [facility] Work Phone: Start: 08-17-2022 End: 24-87-7589hsqdxuikdnBL Roberto Roth Work Phone: [facility] Work Phone: Start: 18-94-3865Abaivi outpatient new 45 minutes [facility] NeurosurgeryStart: 07-16-2022 End: 49-83-3110iqeqxjrroaMV Roberto Roth Work Phone: [facility] Work Phone: Start: 07-16-2022 End: 22-09-1831Stvkilb encounter procedureDO Roberto Roth Work Phone: [facility] [address] Work Phone: Start: 07-03-2022 End: 65-57-2526hebicuxpjqRJ Roberto Roth Work Phone: [facility] Work Phone: Start: 07-03-2022 End: 31-81-9690Vtxzmeq encounter procedureDO Roberto Roth Work Phone: [facility]-XRay [facility] Work Phone: Start: 06-23-2022 End: 17-40-4850yyxpoufeddNW HOOD S RAUSCH .Facility:Y9Bnloi: 05-29-2022 End: 95-09-5621tzzeoqphadQS HOOD S RAUCSH .Facility:G6Czktz: 05-14-2022 End: 88-84-5688fczqgttarmREWM SINGH .Facility:P3Afjiz: 03-12-2022 End: 63-02-8949vxxgpomygzNA HOOD S RAUSCH .Facility:J0Lunlt: 60-06-3768Otccbbwop for preprocedural laboratory examinationDR HOOD S RAUSCH .[facility] Start: 02-10-2022 End: 59-54-5643kqrrpgxoudDI HOOD S RAUSCH .Facility:P5Adsmx: 02-06-2022 End: 23-22-8348jiiyrlwpfuNN HOOD S RAUSCH .Facility:I2Rnflx: 02-06-2022 End: 56-08-6431Femltyanm for preprocedural laboratory examinationDR HOOD S RAUSCH .Facility:R0Lchrp: 02-03-2022 End: 43-61-5461dfevgfqiqdYS HOOD S RAUSCH .Facility:U5Ilvlh: 01-31-2022 End: 67-92-0294Zlgmayy encounter procedureDO Roberto Roth Work Phone: [facility]-[place] COVID TestingStart: 82-80-3238yaobkyxeeiPE HOOD S RAUSCH .Facility:B4Zclkz: 01-07-2022 End: 49-45-6932kvrhlhrllvIV HOOD S RAUSCH .Facility:D1Rqeen: 05-20-2020 End: 84-72-7158Rbgbdmt encounter procedureCarl Piabvm-Eey-Ecaypgyf TestingStart: 05-14-2020 End: 46-88-8623Kplywyg encounter procedureCarl Lycyed-Loz-Llfcyvam TestingStart: 04-26-2020 End: 67-36-5980Ntzfcqj encounter procedureCarl Roth-XRay [facility] [place] Procedures DateProcedureProcedure DetailPerforming ClinicianStart: 02-13-3202UVXQXVY CULTUREJacky Brandon MD Work Phone: Start: 65-03-7375RPXQVRIRP CULTUREJacky Brandon MD Work Phone: Start: 68-55-3300EF CHEST 2VHihien Brandon MD Work Phone: Start: 29-76-7425KTN CBC WITH AUTO DIFFJacky Brandon MD Work Phone: Start: 42-15-8902NBL 12-LEADJacky Brandon MD Work Phone: Start: 38-45-2288BT SINUS WO CONJacky Brandon MD Work Phone: Start: 41-72-8526Njzdj cultureDO Roberto Roth Work Phone: Start: 41-98-0632S-ray of lumbar spine, six views including bending viewsDO Roberto Roth Work Phone: Start: 33-88-5865C-ray of lumbar spine, four viewsCarsinai Roth Plan of Treatment DateCare ActivityDetailAuthorStart: 04-24-2025 End: 64-85-4453Xvhnjww encounter uedxmtxba68/25/2025 3:50 PM EST Office Visit [facility] [address] [place] [phone] Jacky Brandon MD [address] [place] [address] [facility] [place] OtolaryngologyStart: 03-16-2025 End: 88-81-0034Csuxvoh encounter lxsiynnun81/17/2025 3:40 PM EDT Office Visit [facility] [address] [place] [phone] Jacky Brandon MD [address] [facility] [address] [place] [address] [facility] OtolaryngologyStart: 03-16-2025 End: 32-35-4168Hnzgnre encounter rufuxoepk57/17/2025 11:30 AM EDT Office Visit [facility] [address] [place] [address] Jacky Brandon MD [address] [facility] [address] [place] [address] ArrivedNOMS Virgie OtolaryngologyComment on above:ArrivedStart: 02-26-2025 End: 90-45-0452Zbxnxua encounter procedureNOMS [place] OtolaryngologyComment on above:ArrivedStart: 55-54-6418FNRBI-19 Vaccine ( season)COVID-19 Vaccine ( season)[facility] HealthcareStart: 95-91-1858Lvwluwnjt vaccinationWaukomis ClinicStart: 01-23-2025 End: 62-17-7730Ffdrwqz encounter uptlypmhb30/26/2025 3:20 PM EDT Office Visit [facility] [address] [facility] [address] [place] [address] Jacky Brandon MD [address] [facility] [address] [place] [address] NOM[facility] CI ENTStart: 12-19-2024 End: 92-91-4856Aplalcg cultureAerobic culture Microbiology Routine Phantosmia Expected: 12/19/2024 (Approximate), Expires: 12/19/2025[facility] Work Phone: Comment on above:Expected: 12/19/2024 (Approximate), Expires: 12/19/2025Start: 36-02-1635Fzudo-19 Vaccine ( season)Covid- 19 Vaccine ()[facility]: 88-10-2327Buuylwdsb vaccinationInfluenza Vaccine (#1)[facility]: 26-47-4310Cwgku X-ray of right hipXR hip RT min 2V(w/wo pelvis)*[facility]: 37-44-8778UG Hip - right 2 ViewsMercy Memorial Hospitaltart: 69-27-9010Vgmhzhfb identified in Urine by CultureMercy Memorial Hospitaltart: 64-80-5950Xvcubqgss complement CH50 levelMercy Memorial Hospitaltart: 92-27-8713GqlwwgzjtMercy Memorial Hospitaltart: 2018 Shingrix Vaccine (1 of 2)Shingrix Vaccine (1 of 2)[facility]: 90-36-0605Atmwgxxv ScreeningDiabetes ScreeningHolzer Hospitaltart: 2013 Lipid panelLipid ScreeningHolzer Hospitaltart: 99-28-7048Inftgyizd for malignant neoplasm of colonHolzer Hospitaltart: 38-79-3463Azraibdqc for malignant neoplasm of breastHolzer Hospitaltart: 73-21-4223Mxefxgbwe for malignant neoplasm of cervixNOMS HealthcareStart: 86-99-5588Ymafyvuvj for malignant neoplasm of cervixHolzer Hospitaltart: 33-29-5491Sjhdcnfnq B Vaccine (1 of 3 - 19+ 3-dose series)Hepatitis B Vaccine (1 of 3 - 19+ 3-dose series) [facility]: 14-14-3794Kjggsoivzfuu Vaccine: 50+ (1 of 2 - PCV) Pneumococcal Vaccine: 50+ (1 of 2 - PCV)[facility]: 59-42-5830Vcvgd microalbumin profileDTaP,Tdap,Td Vaccine (1 - Tdap)[facility]: 50-34-9335Bbnfmfs ScreeningAnxiety ScreeningHolzer Hospitaltart: 1986 Depression ScreeningDepression ScreeningHolzer Hospitaltart: 1986 Hepatitis C screeningHepatitis C ScreeningHolzer Hospitaltart: 08-95-1931VHI screeningHIV ScreeningHolzer Hospitaltart: 65-36-0250Tetlzyamv for malignant neoplasm of colonNOMS HealthcareComplement C3 [Mass/volume] in Serum or Plasma [facility] HospitalCom[facility] C4 [Mass/volume] in Serum or Plasma [facility] End: 91-60-9584GF Lumbar spine WO contrastCT LUMBAR SPINE WO IVCON Radiology Routine Radiculopathy of lumbar region Spinal stenosis of lumbarregion without neurogenic claudication 1 Occurrences starting 06/23/2024 until 07/23/2025 [facility] Work Phone: Comment on above:1 Occurrences starting 06/23/2024 until 07/23/2025 End: 55-47-8638UCS(NEURO/NI)EMG(NEURO/NI) EMG Routine Radiculopathy of lumbar region Spinal stenosis of lumbar region without neurogenic claudication Right foot drop 1 Occurrences starting 06/23/2024 until 06/23/2025[facility] Comment on above:1 Occurrences starting 06/23/2024 until 06/23/2025Homogenous nuclear Ab pattern [Titer] in [facility] End: 48-56-7719OT Cervical spine WO contrastMRI CERVICAL SPINE WO IVCON Radiology Routine Spinal stenosis of cervical region 1 Occurrences starting 09/26/2024 until 10/26/2025[facility] Work Phone: Comment on above:1 Occurrences starting 09/26/2024 until 10/26/2025Nuclear Ab [Titer] in [facility] End: 05-23-9844AF Lumbar spine Views W flexion and W extensionXR LUMBAR MOTION 4V AP/LAT/ FLEX/EXT Radiology Routine Radiculopathy of lumbar region Spinal stenosis of lumbar region without neurogenic claudication 1 Occurrences starting 06/23/2024 until 07/23/2025[facility]:1 Occurrences starting 06/23/2024 until 07/23/2025 Immunizations Immunization DateImmunizationNotesCare EojlugjjTzvwcqwu72-93-6365EYFYJ-72 mRNA- 1273 (Moderna)DO Roberto Roth Work Phone: [facility]05-15-2021COVID-19 mRNA-1273 (Moderna)DO Roberto Roth Work Phone: [facility]12-24-2020influenza, injectable, quadrivalent, preservative freeDO Roberto Roth Work Phone: [facility]12-24-2020influenza virus vaccine, unspecified formulationLos Sarmiento MD Work Phone: [facility]ronNyxykk49-19-1197wtbrtvihx, injectable, quadrivalent, preservative Larry Brandon MD Work Phone: [facility] Payers DatePayer CategoryPayerPolicy [id number]-yuq [id number] [place] Blue Shield [id number]5.63925-07-5042Zhmgram 1.2.840.036216.1.13.159.2.7.3.055674.18913-58-8301MnonhmaIAEY1993827675-97-4324 Zcwmybm1745231 2.0.1.543268.3.579.2.87232-46-6500Kkvgxkv6247355 2.0.1.950564.3.579.2.93035-34-8296Mgzfqpj1696430 2.0.1.840264.3.579.2.36947-87-3545Xjpbycp3744443 2.0.1.120249.3.579.2.46563-58-1781Wwutams8136317 2..1.660335.3.579.2.23039-71-5992Rflwywv2418280 2.0.1.943857.3.579.2.89211-68-7450Bbzibdl2940971 2.16.840.1.216535.3.579.2.16597-12-8833Kypyuso3900246 2.16.840.1.370890.3.579.2.03846-68-0893Dkpbbqv4240645 2.16.840.1.421091.3.579.2.20557-15-3345Lzzfoyq0746539 2.16.840.1.812422.3.579.2.56260-98-0316Jutdrem7224557 2.840.1.353330.3.579.2.05784-37-8934Tiugqop7440243 2.840.1.863999.3.579.2.84761-88-2847Yvdrcre2168498 2.840.1.815964.3.579.2.48207-70-2126Abpegnr5995713 2.840.1.980443.3.579.2.98545-22-6907Qggkruu7919917 2.840.1.297619.3.579.2.70244-24-0228Prscddy899272804 2.840.1.700801.3.579.2.25039-87-3843Wkisxyz836273955 2.840.1.663747.3.579.2.25943-95-6343Gjvzfcy466664673 2.840.1.072784.3.579.[id number] 2.840.1.093352.3.579.2.67644-40-8364Wfskkyq54147432 2.840.1.285013.3.579.2.497844-98-3957Xcmqmvq18962095 2.840.1.003534.3.579.2.611997-77-7781Jodxrbj92041333 2.16.840.1.014886.3.579.2.103564-56-3293EhhauekWPH830T77929 637x5d02-8829-2du6-b936-8le16dt3c562Susxtkz539911977 9t9j6678-1fi8-64p5-wn7x-8fus0vwy1621Kwysnar49280878 2.16.840.1.160804.3.579.2.531 Social History DateTypeDetailFacilityStart: 05-14-2020 End: 95-15-0244Ihcvxtk smoking status NHISSmoker (finding)[facility]: 67-11-8704Nat Assigned At BirthFeDunlap Memorial Hospitaltart: 06-09-2024 End: 12-73-3616Ridttim of tobacco useSelect Medical Specialty Hospital - AkronTobagriffin memorial hospital [facility] smoking status NHIS Tobacco smoking consumption unknownHolzer Hospitaltart: 84-68-0496Eel assigned at birthNot on fileHolzer Hospitaltart: 06-09-2024 End: 07-54-6589Uavzprk smoking status NHISSmokes tobacco dailySelect Medical Specialty [facility] History of tobacco useCigarette SmokerHolzer Hospitaltart: 06-09-2024 End: 62-67-0174Hqcrnno use and exposureSmokeless tobacco non-userHolzer Hospitaltart: 06-09-2024 End: 01-80-0033Wcyzmgskm beverage intakeEx-drinker (finding)[facility] Start: 06-09-2024 End: 39-36-3807Fctloml of Social functionHolzer Hospitaltart: 81-84-6616Pkuok Depression Screening Lfbnhekaju8Kckexwodr ClinicSexFemale (finding)[facility] Medical Equipment Procedure CodeEquipment CodeEquipment Original TextEquipment IdentifierDates Fusion, spine, lumbar, XLIFCANCELLOUS COARSE 7.5CCFDAStart: 55-07-0048Bjvhwc, spine, lumbar, XLIFBone-screw internal spinal fixation system, non-sterile ()[id number] FDAStart: 87-08-7320Sznflr, spine, lumbar, XLIFBone-screw internal spinal fixation system, non-sterile()[id number] FDAStart: 58-45-8394Siyqrb, spine, lumbar, XLIFBone-screw internal spinal fixation system, non-sterile()[id number] FDAStart: 42-45-0309Pdejmm, spine, lumbar, XLIF CANCELLOUS COARSE 7.5CCFDAStart: 29-71-8134Ylptyz, spine, lumbar, XLIFBone-screw internal spinal fixation system, non-sterile()[id number] FDAStart: 92-11-2298Qtqkca, spine, lumbar, XLIFBone-screw internal spinal fixation system, non-sterile()[id number] FDAStart: 96-88-9073Gjhrou, spine, lumbar, XLIF Polymeric spinal fusion cage, non-sterile()[id number] FDAStart: 05-22-2020 Fusion, spine, lumbar, XLIFDura mater graft, bovine ()[id number] FDAStart: 24-07-9511Qlmieb, spine, lumbar, XLIFMAS REDUCTION FIXATION ADD LEVFDAStart: 99-84-0757Byptmu, spine, lumbar, XLIFXLIF 1 LEVEL MAS REDUCTIONFDAStart: 85-81-8365Fucftv, spine, lumbar, XLIFSpinal fusion graft kit()[id number] FDAStart: 06-85-8910Icsous, spine, lumbar, XLIFBone matrix implant, human-derived ()[id number] FDAStart: 42-06-2976Rjijgz, spine, lumbar, XLIFMetallic spinal fusion cage, non-sterile()[id number] FDAStart: 29-86-1900Tzjpsr, spine, lumbar, XLIFBone-screw internal spinal fixation system, non-sterile()[id number] FDAStart: 03-74-2237Utaplb, spine, lumbar, XLIFCANCELLOUS COARSE 7.5CCFDAStart: 83-99-3599Miqshn, spine, lumbar, XLIF CANCELLOUS COARSE 7.5CCFDAStart: 54-14-6514Dxgjaa, spine, lumbar, XLIFMAS REDUCTION FIXATION ADD LEVFDAStart: 44-87-3530Vqsvyf, spine, lumbar, XLIFXLIF 1 LEVEL MAS REDUCTIONFDAStart: 08-90-2781Byqhun, spine, lumbar, XLIFCANCELLOUS COARSE 7.5CCFDAStart: 93-64-5116Bjmulw, spine, lumbar, XLIFCANCELLOUS COARSE 7.5CCFDAStart: 01-36-3235Ighshc, spine, lumbar, XLIFMAS REDUCTION FIXATION ADD LEVFDAStart: 20-37-0753Yrajnh, spine, lumbar, XLIFXLIF 1 LEVEL MAS REDUCTIONFDA Start: 30-67-2813Yjaire, spine, lumbar, XLIFCANCELLOUS COARSE 7.5CCFDAStart: 60-96-1065Lpcxfg, spine, lumbar, XLIFCANCELLOUS COARSE 7.5CCFDAStart: 05-22-2020 Fusion, spine, lumbar, XLIFMAS REDUCTION FIXATION ADD LEVFDAStart: 05-22-2020 Fusion, spine, lumbar, XLIFXLIF 1 LEVEL MAS REDUCTIONFDAStart: 49-67-5832Suwssl, spine, lumbar, XLIFCANCELLOUS COARSE 7.5CCFDAStart: [id number], spine, lumbar, XLIFCANCELLOUS COARSE 7.5CCFDAStart: 65-11-3103Awbbqw, spine, lumbar, XLIFMAS REDUCTION FIXATION ADD LEVFDAStart: 44-47-7252Afbndm, spine, lumbar, XLIFXLIF 1 LEVEL MAS REDUCTIONFDAStart: 05-22-2020 Goals DatePatient GoalDesired Activity/State Clinical Notes 01-07-2022 to 03-16-2025 Note Date & [id number] History of Present illness Narrative* Jacky Brandon MD - 03/16/2025 11:30 AM EDT Images from the original note were not included. Subjective Patient ID: Kim Hill is a 54 y.o. female who presents for Sinusitis (S/p sinus sugery ) S/P RT MMA. Family History[1] Active Ambulatory Problems Diagnosis Date Noted Hallux valgus (acquired), left foot 12/13/2024 Acute asthma exacerbation (HCC) 03/16/2025 Bronchitis 03/16/2025 Crushing injury of fifth toe of left foot 03/16/2025 Encounter for prophylactic measures, unspecified 03/16/2025 Fibromyalgia 03/16/2025 Impaired mobility and ADLs 03/16/2025 Hypertension 03/16/2025 Leukocytosis 03/16/2025 Low serum prealbumin 03/16/2025 Osteoarthritis 03/16/2025 Panic attacks 03/16/2025 Pneumonia due to COVID-19 virus 03/16/2025 Postoperative anemia 03/16/2025 Postoperative pain after spinal surgery 03/16/2025 Right foot drop 03/16/2025 Lumbar radiculopathy 03/16/2025 Resolved Ambulatory Problems Diagnosis Date Noted No Resolved Ambulatory Problems Past Medical History: Diagnosis Date Sinusitis Surgical History[2] Allergies[3] Medications Ordered Prior to Encounter[4] Objective Last Recorded Vitals Vitals: 03/16/25 1149 BP: 116/69 Pulse: 106 ENT Physical Exam Constitutional Appearance: patient appears well-developed, well-nourished and well-groomed, Communication/Voice: communication appropriate for developmental age; vocal quality normal; Patient ID: Kim Hill is a 54 y.o. female. Procedures After spraying the patient's nose with anesthetic/decongestant , the endoscope was utilized to visualize the operated sinus cavity. Granulation tissue, clot and sequestra were gradually removed from the cavity . The debridement was carried out until all easily removable material was removed Assessment/Plan Diagnoses and all orders for this visit: Chronic maxillary sinusitis Foreign body in nose, initial encounter Sinus debrided. Still a bit inflamed. Start bactroban irrigations [1] Family History Problem Relation Name Age of Onset Diabetes Mother Diabetes Father [2] Past Surgical History: Procedure Laterality Date BACK SURGERY HYSTERECTOMY SINUS SURGERY 03/08/2025 Dr Brandon [3] Allergies Allergen Reactions Amoxicillin-Pot Clavulanate Diarrhea Other Reaction(s): dizziness Azithromycin Diarrhea Penicillin G Rash [4] Current Outpatient Medications on File Prior to [...] evening and 600 mg before bedtime. HYDROcodone-acetaminophen (Sanders) 7.5-325 MG tablet TAKE ONE TABLET BY MOUTH THREE TIMES A DAY NEEDED FOR PAIN. MUST LAST 30 DAYS ipratropium-albuterol (Duo-Neb) 0.5-2.5 mg/3 mL nebulizer solution USE 1 VIAL PER NEBULIZER 3 TIMESDAILY lisinopril 10 MG tablet Take 10 mg [...] facility-administered medications on file prior to visit. documented in this encounterI-70 Community HospitalWfjoiapwij21-31-6642 NoteAEROBIC CULTUREis in progress.[facility] CenterCowdwuxqrq71-67-4264 NoteAEROBIC CULTUREis in progress.[facility] CenterJjlpcgfunq79-17-8365 History of Present illness Narrative* Jacky Brandon MD - 02/26/2025 3:20 PM EDT Subjective Patient ID: Kim Hill is a [...] evening and 600 mg before bedtime. HYDROcodone-acetaminophen (Sanders) 7.5-325 MG tablet TAKE ONE TABLET BY MOUTH THREE TIMES A DAY NEEDED FOR PAIN. MUST LAST 30 DAYS ipratropium-albuterol (Duo-Neb) 0.5-2.5 mg/3 mL nebulizer solution USE 1 VIAL PER NEBULIZER 3 TIMESDAILY lisinopril 10 MG tablet Take 10 mg [...] maxillary sinusitis (>12 weeks) sinusitis that has failedaggressive medical management with abx, nasal steroids, prednisone, antihistamines and saline irrigations. Proceed with right maxillary antrostomy. Risks, including epistaxis, anosmia, orbit injury with diploia or blindness, CSF leak, and persistent sx d/w pt who expressed understanding. documented in this encounterI-70 Community HospitalEzsbsddkkl06-77-3514 History of Present illness Narrative* Jacky Brandon MD - 12/19/2024 3:00 PM EDT Subjective Patient ID: Kim Hill is a [...] The endoscope was placed into the nose genesis thorough inspection of internal nose including the [...] to evaluate for surgical pathology and plan surgicaltx. documented in this encounterI-70 Community HospitalAclgzseaul39-50-5536 History of Present illness Narrative* Los Sarmiento MD - 09/26/2024 3:00 PM EDT Images from the original note were not [...] Location: Back-Lower Back-Lower feet pain too Description: Aching;Burning;Numbness;Tingling Burning;Sharp;Aching Duration Amount of Time: -- 5 Duration Units: Minutes Years Frequency: Continuous Intermittent Intervention/Comfort measure: Medication;Reposition;Relaxation Medication;Heat;Cold;Therapeutic techniques-CPRP Pain Radiation: down the right thigh, [...] gabapentin, meloxicam, voltaren cream, heat, mdp x1 Sanders - 3x/dy REVIEW OF SYSTEMS: GENERAL: No [...] 10 mg by mouth daily at bedtime. azeosxunrqw-rkpbwvpzu-xlsxipvs (TRELEGY ELLIPTA) 100-62.5-25 mcg inhalation powder Inhale 1 Puff asinstructed once daily. cefdinir (OMNICEF) 300 mg capsule [...] would like to have a cervical MRI tosee if there are problems in the neck area, and I have ordered this. 1. Obtain additional imaging 2. Follow up: Following above Imaging Ordered: MRI cervical spine wo ivcon I spent 30 minutes in the visit, with more than 50% of the total glqx-mx-uwjr time of the visit in counseling / coordination of care. SIGNATURE: Los Sarmiento MD PATIENT NAME: Kim Hill DATE: September 25, 2024 TIME: 3:07 PM PAGER: By signing my name below, I, Ernestina Albert, attest that this documentation has been prepared under the direction and in the presence of Dr. Sarmiento Electronically signed, Monae Chew September 25, 2024 3:08 PM documented in this encounterSelect [facility] Telephone encounter Note * Telephone Encounter - Ness Corbett RN - 06/23/2024 11:11 AM EST Neuro SPINE CARE COORDINATION QUICK NOTE Called patient, no answer. Left non-detailed VM on non-identified VM box instructing patient to call office or check MYC messages for details. Ness Corbett RN June 23, 2024 11:12 AM [facility]01-24-2025 Miscellaneous Notes* Telephone Encounter - Ness Corbett RN - 06/23/2024 11:11 AM EST Neuro SPINE CARE COORDINATION QUICK NOTE Called patient, no answer. Left non-detailed VM on non-identified VM box instructing patient to call office or check MYC messages for details. Ness Corbett RN June 23, 2024 11:12 AM * Telephone Encounter - Marta Walker - 06/22/2024 9:51 AM EST Pt called asking for orders informed by on OV 06/16/24. Discussed with patient will order CT and EMG as well as standing xray Pls send MyC msg once orders are ready so that Pt can schedule. documented in this encounterSelect [facility]01-23-2025 Telephone encounter Note * Telephone Encounter - Marta Walker - 06/22/2024 9:51 AM EST Pt called asking for orders informed by on OV 06/16/24. Discussed with patient will order CT and EMG as well as standing xray Pls send MyC msg once orders are ready so that Pt can schedule. [facility]-17-2025 NoteHNO ID: [id number] Author: LOS SARMIENTO MD Service: ? Author Type: Physician Type: Progress Notes Filed: 06/16/2024 17:55 Note Text: [facility]cheduled, [facility]Av[facility]-2025 NoteHNO ID: [id number] Author: LOS SARMIENTO MD Service: ? Author Type: Physician Type: Progress Notes Filed: 06/16/2024 09:36 Note Text: I have communicated my name and active licensure. The patient's identity and physical location were verified at the time of this visit. Either the patient or their legal licensing representative has been informed of the risks [...] with more than 50% of the total cizb-bk-jyzv time of the visit in counseling / coordination of care.[facility]01-17-[facility] History of Present illness Narrative* Los Sarmiento MD - 06/16/2024 9:31 AM EST I have communicated my name and active licensure. The patient's identity and physical location wereverified at the time of this visit. Either the patient or their legal licensing representative has been informed of the risks and benefits of -- and alternatives to -- treatment through a remote evaluation andconsents to proceed with the evaluation remotely. Patient [...] with more than 50% of the total gbyv-cc-fmhw time of the visit in counseling / coordination of care. documented in this encounterSelect [facility]10-11-2024 NoteHNO ID: [id number] Author: KENAN GODOY APRN.PROVIDER SERVICE REPRESENTATIVE Service: ? Author Type: Nurse Practitioner Type: [...] gabapentin, meloxicam, voltaren cream, heat, mdp x1 Sanders - 3x/dy Studies (Reports unless indicated) Mri lumbar report Lumbarization S1 S/p :L4-S1 fusion L5/S1 mod b/l FS S1/2 paraspinal muscle mod to severe atrophy Disposition: Please schedule with dr sarmiento if patient would like soon can schedule with myself. Please instruct patient to bring copy of imaging and injection history for review.[facility]10-11-[facility] History of Present illness Narrative* Kenan Godoy APRN.PROVIDER SERVICE REPRESENTATIVE - 03/10/2024 4:02 PM EDT Per Triage: Kim Hill is a 53 year old female that requests evaluation of lumbar. Per review, they havesymptoms of LB/legs/feet - numbness & burning pain only when sitting/standing/walking - numbness & weakness in legs - r worse then l - r drop foot - standing & sitting most uncomfortable position - laying is most comfortable position Provider Dr Aby Mark Requesting ronnie Campos sur - lumbar - [facility] - 2 cages CMT: Inj, gabapentin, meloxicam, voltaren cream, heat, mdp x1 Sanders - 3x/dy Studies (Reports unless indicated) Mri lumbar report Lumbarization S1 S/p :L4-S1 fusion L5/S1 mod b/l FS S1/2 paraspinal muscle mod to severe atrophy Disposition: Please schedule with dr sarmiento if patient would like soon can schedule with myself. Please instruct patient to bring copy of imaging and injection history for review. * Marla Cr - 03/06/2024 9:53 AM EDT Patient name: Kim Hill Are you being [...] above imaging, triage does not need to becompleted If YES, please ask for the name/address of the facility where the MRI/CT/myelogram was completed: [place] [address] MRI/CT/myelogram viewable in Epic: No If not, please provide [phone] to fax in imaging reports for review. Also, please inform patient to hand carry imaging disc to appointment. XR (spine) within 12 months: Yes If YES, please ask for the name/address of the facility where the XR was completed: [place] [address] Dr. Freeman's patients: Have you had previous EMG/Nerve Conduction Study, Ultrasound, or MRI for thesesame symptoms? If YES, please ask for the [...] therapy was completed [facility] [place] [address] Have you tried any other kinds of non-surgical treatments in the last 12 months? (For example: NSAIDS, muscle relaxants, analgesics, oral steroids, Chiropractor, Acupuncture): gabapentin, meloxicam, voltaren cream, heat, mdp x1 4. Are you currently taking daily prescribed narcotic medications for your current symptoms (For example Oxycodone, Hydrocodone, Tramadol, Morphine, Other)? Yes Sanders - 3x/dy 5. Have you had previous spinal surgery for this same symptoms? Yes If YES please ask for the name of facility/address of where the surgery was completed: [facility] - 2 cages Additional Comments [phone] documented in this encounterSelect [facility]10-07-2024 NoteHNO ID: [id number] Author: ?, ?, ? Service: ? Author Type: ? Type: Progress Notes Filed: 03/10/2024 16:07 Note Text: Patient name: Kim Hill Are you being referred by a [facility] Spine Health Provider or Pain Management [...] the facility where the MRI/CT/myelogram was completed: [place] [address] MRI/CT/myelogram viewable in [facility]: No If not, please provide [phone] to fax in imaging reports for review. Also, please inform patient to hand carry imaging disc to appointment. XR (spine) within 12 months: Yes If YES,? please ask for the name/address of the facility where the XR was completed: [place] [address] Dr. Freeman's patients: Have you had previous [...] was completed INJ - Pain mgmt [place] - [address] [place] [address] Have you tried any other kinds of non-surgical treatments in the last 12 months? (For example: NSAIDS, muscle relaxants, analgesics, oral steroids, Chiropractor, Acupuncture): gabapentin, meloxicam, voltaren cream, heat, mdp x1 4. Are you currently taking daily prescribed narcotic medications for your current symptoms (For example Oxycodone, Hydrocodone, Tramadol, Morphine, Other)? Yes Sanders - 3x/dy 5. Have you had previous spinal surgery for this same symptoms? Yes If YES? please ask for the name of facility/address of where the surgery was completed: [facility] - 2 cages Additional Comments [phone] Health [facility]05-09-2023 Note CONSULTATION CONSULTATION DATE: 10/06/2022 TO: Roberto [...] pill b.i.d. and to continue to use Sanders 7.5 mg t.i.d. We did reduce the use at her last visit from 90 pills a month to 80 pills to last one month's time. She appears to be tolerating this transition quite well. I have asked her to continue with gabapentin 600 mg t.i.d. Her JOYCE on today's visit is 28. She reports the Sanders does improve her quality of life, level of functioning and sleep pattern, and she denies any side effects. As part of providing excellent, safe, comprehensive care, the following was completed at our patient's visit: 1. A medication reconciliation and review to ensure accurate knowledge of current/active medications, including asking our patients to inform us about any vtep-tyr-xixnzea medications or herbal remedies/nutritional supplements/alternative remedies. 2. [...] and treatment options with their primary care provider.[facility] HospitalBasuticr62-44-8912 Note CONSULTATION CONSULTATION DATE: 09/01/2022 TO: Dr. [...] our patients to inform us about any uolk-qea-oggsrpm medications or herbal remedies/nutritional supplements/alternative remedies. 2. [...] and treatment options with their primary care provider.[facility] HospitalHvwyvbya40-80-8667 Evaluation note * Encounter Date Diagnosis Assessment Notes Treatment Notes Treatment Clinical Notes Jul, Other chronic pain (ICD-10 - G89 .29) Jul,Low back pain, unspecified (ICD-10 - M54.50) [facility] Other 02-16-2023 NoteCONSULTATION CONSULTATION DATE: 07/16/2022 HISTORY OF PRESENT ILLNESS: This is a 51-year-old female who returns to the clinic status post bilateral SI joint injection completed on 06/23/2022. The patient received 80% relief for one day and on day two felt worse than her normal baseline pain. Today, she rates her pain 8/10. Medications include gabapentin 600 mg t.i.d., Sanders 7.5/325 b.i.d. and Mobic 15 mg daily. [...] her medications; Mobic 15 mg daily and Sanders 7.5/325 b.i.d. She will return to the clinic in six weeks' time, in which we will, in addition to her PCPs office, review the MRI and form a plan of care at that time. Patient is in agreement to this plan.[facility] HospitalGgenouii32-32-5156 Note CONSULTATION CONSULTATION DATE: 05/29/2022 HISTORY OF [...] down. Medications include gabapentin 600 mg t.i.d., Sanders 7.5/325 b.i.d. and diclofenac 50 mg daily. [...] care and will be followed up thereafter.[facility] HospitalFpymppxe74-13-9463 NoteCONSULTATION CONSULTATION DATE: 05/14/2022 HISTORY OF PRESENT [...] as well as gabapentin 600 mg t.i.d., Sanders 7.5/325 t.i.d. At her last appointment, she [...] Refills for gabapentin 600 mg t.i.d. and Sanders 7.5/325 b.i.d. will be sent to her pharmacy. Patient agrees to move forward with the procedure. She will followed up in the clinic thereafter.[facility] HospitalRdvrmwmp72-83-4973 NotePAIN MANAGEMENT CONSULTATION CONSULTATION DATE: 05/14/2022 CHIEF [...] with a sacroiliac joint injection under fluoroscopy.[facility] HospitalTmjkeelw29-68-9613 NoteCONSULTATION CONSULTATION DATE: 03/12/2022 ADDENDUM DIAGNOSIS: Lumbar spondylosis, lumbar degenerative disc disease, chronic lower back pain and a history of a lumbar fusion.[facility] HospitalVbnlyjpq89-56-6770 Note CONSULTATION CONSULTATION DATE: 03/12/2022 This is [...] Current medications include gabapentin 600 mg t.i.d., Sanders 7.5/325 b.i.d., diclofenac cream and ibuprofen. She [...] with her vitamins as well as her Sanders. The dose of frequency will not be changed. We will have the patient return to the clinic in two months' time for re-evaluation. The patient is inquiring about an increase of her Sanders, possibly during the winter months. There will be no changes today.[facility] HospitalSlymqouu86-12-1656 NoteCONSULTATION CONSULTATION DATE: 01/07/2022 This is a [...] Current medications include gabapentin 600 mg b.i.d., Sanders 7.5/325 b.i.d., diclofenac topical, multivitamin regimen and ibuprofen p.r.n. She has tried diclofenac in the past but was unable to tolerate it due to stomach issues but low-dose ibuprofen she can tolerate. She is needing Sanders and gabapentin refill today. REVIEW OF SYSTEMS, [...] subsequently move to the left. Refill for Sanders 7.5/325 b.i.d. and gabapentin 600 mg b.i.d. will be sent to the pharmacy. The patient is encouraged to increase magnesium in her vitamin regimen as well as menthol heat rub, seated stretches that were demonstrated and heat application. The patient agrees with the plan of care and would like to move forward and she will follow-up in the clinic post procedure.[facility] HospitalEvaluation noteNo assessment information availableMercy Health St. Charles Hospital Work Phone: Evaluation noteNo InformationNortSelect Specialty Hospital [facility] FreePriceAlerts Other evaluation note* Diagnosis Lumbar radiculopathy- Primary Thoracic or lumbosacral neuritis or radiculitis, unspecified documented in this encounter [facility] note* Diagnosis Radiculopathy of lumbar region- Primary Thoracic or lumbosacral neuritis or radiculitis, unspecified Spinal stenosis of lumbar region without neurogenic claudication Spinal stenosis, lumbar region, without neurogenic claudication Right foot drop Other acquired deformity of ankle and foot documented in this encounter [facility] note* Diagnosis Spinal stenosis of cervical region- Primary Spinal stenosis in cervical region Lumbar radiculopathy Thoracic or lumbosacral neuritis or radiculitis, unspecified Adhesive arachnoiditis (HCC) Meningitis, unspecified documented in this encounter [facility] note* Diagnosis Phantosmia- Primary Chronic maxillary sinusitis History of MRSA infection documented in this encounter [facility] HealthcareEvaluation note* Diagnosis Chronic maxillary sinusitis- Primary documented in this encounter [facility] HealthcareEvaluation note* Diagnosis Chronic maxillary sinusitis- Primary Foreign body in nose, initial encounter documented in this encounter [facility] HealthcareHistory general Narrative - Reported* Type Description Date Medical History osteoarthritis Medical Historyrheumatoid arthritisMedical Historycarpal tunnelMedical History fibromyalgiaMedical HistoryhypertensionMedical HistoryArthritisMedical History asthmaMedical HistoryobesityMedical HistorypneumoniaMedical Historyanxiety Surgical Knmvbkigglmophzcfyy73/2012Surgical Historyback surgerySurgical History left middle finger surgeryHospitalization Historysee aboveHospitalization History4 child births [facility] FreePriceAlerts Other reason for referral (narrative)* Diagnostic Procedure Only (Routine) - New RequestSpecialtyDiagnoses / ProceduresReferred By Contact Referred To ContactXR IMAGING Diagnoses Radiculopathy of lumbar region Spinal stenosis of lumbar region without neurogenic claudication Procedures XR LUMBAR MOTION 4V AP/LAT/ FLEX/EXT RADEX SPINE LUMBOSACRAL MINIMUM 4 VIEWS Kenan Godoy APRN.PROVIDER SERVICE REPRESENTATIVE [address] [place] [address] Xr Imaging [place] [address] Referral IDStatusReasonStart DateExpiration DateVisits RequestedVisits [id number] Request Auto-Generated Referral * Outpatient Procedure (Routine) - New RequestSpecialtyDiagnoses / Procedures Referred By ContactReferred To ContactNEUROLOGICAL INSTITUTE Diagnoses Radiculopathy of lumbar region Spinal stenosis of lumbar region without neurogenic claudication Right foot drop Procedures EMG(NEURO/NI) NERVE CONDUCTION STUDIES 9-10 STUDIES Kenan Godoy APRN.PROVIDER SERVICE REPRESENTATIVE [address] [place] [address] Neurological [facility] [address] [place] [address] Referral IDStatusReasonStart DateExpiration DateVisits RequestedVisits [id number] Request Auto-Generated Referral * MRI/CT (Routine) - New RequestSpecialtyDiagnoses / ProceduresReferred By ContactReferred To ContactCT IMAGING Diagnoses Radiculopathy of lumbar region Spinal stenosis of lumbar region without neurogenic claudication Procedures CT LUMBAR SPINE WO IVCON CT LUMBAR SPINE W/O CONTRAST MATERIAL Kenan Godoy APRN.PROVIDER SERVICE REPRESENTATIVE [address] [place] [address] Ct Imaging [place] [address] Referral IDStatusReasonStart DateExpiration DateVisits RequestedVisits [id number] Request Auto-Generated Referral [facility] for referral (narrative)No reason for referral information availableMercy Health St. Charles Hospital Work Phone: Advance Directives Advance Directive Response Recorded Date/ Time Advance Directives No March 17, 2019 11:58pm Advance Directive Response Recorded Date/ Time Advance Directives No March 18, 2019 12:58am Chief Complaint and Reason for Visit Chief Complaint m47.817 Spondylolisthesis Spondylolisthesis Chief Complaint Pre-Surgical Testing Chief Complaint M54.51 Chief Complaint M54.51 R53.82 i33.90 G57.11 Chief Complaint Admit Date Unknown March 08, 2025 10 :14am Assessments No Assessments Information Available Family History Relationship Condition Age at Onset Recorded Date/T gracy father Diabetes mellitus Unknown Not SpecifiedDiabetes mellitusUnknown Relationship Condition Age at Onset Recorded Date/T gracy father Diabetes mellitus Unknown motherDiabetes mellitusUnknownauntRheumatoid arthritisUnknowngrandparent Rheumatoid arthritisUnknown Summary Purpose Additional Source Comments Care Teams (unrecognized sec tion and content) Team Status: Inactive Member Role Status Dates Roberto Roth , Primary Care Provider Active Ainsley Nunes ProviderActive Team Status: Active Member Role Status Dates Roberto Roth , Primary Care Provider Active Team Status: Inactive Member Role Status Dates Roberto Roth , Primary Care Provider Active Molly Wiley ProviderActive Team Status: Inactive Member Role Status Dates Roberto Roth DO Primary Care Provider Active Ainsley Anderson ProviderActive Team Status: Inactive Member Role Status Dates Roberto Roth , Primary Care Provider Active Ainsley Ludwig ProviderActiveTeam MemberRelationshipSpecialty Start DateEnd Date Aby Mark CNP [address] [place] [address] ReferringFamily Lesosifv58/3/24Team MemberRelationshipSpecialtyStart DateEnd Date Aby Mark CNP [address] [place] [address] ReferringFamily Aavbtigh83/3/24Team MemberRelationshipSpecialtyStart DateEnd Date Aby Mark CNP [address] [place] [address] ReferringFamily Whhklzbo17/3/24Team MemberRelationshipSpecialtyStart DateEnd Date Aby Mark CNP [address] [place] [address] ReferringFamily Bvxbcxcl83/3/24Team MemberRelationshipSpecialtyStart [place] [address] [place] [address] PCP - GeneralCardiology12/05/24Team MemberRelationshipSpecialtyStart [place] [address] [place] [address] PCP - GeneralCardiology12/05/24Team MemberRelationshipSpecialtyStart [place] [address] [place] [address] PCP - GeneralCardiology12/05/24Team MemberRelationshipSpecialtyStart [place] [address] [place] [address] PCP - GeneralCardiology12/05/24Team MemberRelationshipSpecialtyStart [place] [address] [place] [address] PCP - GeneralCardiology12/05/24 Team Status: Inactive Member Role Status Dates Jacky Brandon Jr, MD Attending Provider Active Start: March 08, 2025 End: March 08, 2025Team MemberRelationshipSpecialtyStart [place] [address] [place] [address] PCP - GeneralCardiology12/05/24Team MemberRelationshipSpecialtyStart [place] [address] [place] [address] PCP - GeneralCardiology12/05/24 Goals (unrecognized section and content) Goals may be documented in a n alternate sectionGoals may be documented in an alternate sectionGoals may be documented in an alternate sectionGoals may be documented in an alternate sectionNo InformationNo InformationGoals may be documented in an alternate section INFORMATION SOURCE (unrecogn ized section and content) DATE CREATED AUTHOR 08/01/2022 [facility] DATE CREATED AUTHOR AUTHOR'S ORGANIZ ATION 11/06/2022 [facility] DATE CREATED AUTHOR AUTHOR'S ORGANIZ ATION 09/28/2024 [facility] DATE CREATED AUTHOR AUTHOR'S ORGANIZ ATION 02/11/2025 [facility] DATE CREATED AUTHOR AUTHOR'S ORGANIZ ATION 03/10/2025 [facility] DATE CREATED AUTHOR AUTHOR'S ORGANIZ ATION 03/18/2025 [facility] EPIC REASON FOR VISIT (unrecogniz ed section and content) ReasonCommentsEstablished PatientReasonCommentsOrdersReasonCommentsEstablished PatientReasonCommentsSinusitisReasonCommentsSinusitisFollow up CT 02/15/25Reason CommentsSinusitisS/p sinus sugery Source Comments (unrecognize d section and content) [...] BE BASED ON THE PRIMARY CLINICAL RECORDS. [facility], [facility]. provides no warranty or guarantee of the accuracy or completeness of information in this document.
[2025-04-23 08:10] VITALS: BP 144/91; PULSE 92; TEMP 37.1; O2SAT 98
[2025-04-23 09:02] VITALS: BP 172/103; PULSE 88; O2SAT 98
[2025-04-23 09:03] VITALS: BP 179/81; PULSE 80; O2SAT 97
[2025-04-23] MEDS: BUPIVACAINE HCL 0.25% PF 25 MG/10 ML VIAL 8 ML INJ (09:04)
[2025-04-23] MEDS: LIDOCAINE HCL 2% 400 MG/20 ML MDV INJ (09:05)
--- NOTE | 2025-04-23 09:07 | W.PM.PROCNOT ---
Date of procedure: 04/23/25 Pre-op diagnosis: Pain due to lumbar spondylosis without myelopathy Post-op diagnosis: same as pre-op Procedure: Procedure: Bilateral L2-3, L3-4 medial branch block Medications: Bupivacaine 0.25% 6cc The patient was seen and examined in the preoperative holding area.? An informed consent was obtained and placed on the chart.? The patient was brought to the medical procedure unit and placed in the prone position.? A timeout was completed verifying correct patient, procedure site, positioning, plan, and special equipment.? Using aseptic technique, the needle was placed at left L2. Under direct fluoroscopic visualization a Quincke-tipped spinal needle was advanced to the junction of the superior articulating process with the transverse process at the designated medial branch segment.? Preceded by negative aspiration, the above-mentioned injectate was placed in 1 mL aliquots.? The procedure was repeated at left L3, 4.? The needle was removed and insertion site was covered. The same procedure, at the same levels, was completed on the right side. The patient was taken to the postprocedural recovery area and monitored for an appropriate length of time before found suitable for discharge in the company of a responsible adult. Anesthesia: Local Surgeon: Aaron Mosqueda Pathology: none sent Condition: stable Disposition: no change
== END 2025-04-23 09:13 | disposition home or self-care (01) ==
PROVIDERS: PCP Nurse Practitioner Family; Visit Provider Anesthesiology
DX: M25.571 Pain in right ankle and joints of right foot (principal); M79.671 Pain in right foot; M47.816 Spondylosis without myelopathy or radiculopathy, lumbar region
CPT/HCPCS: 64493; 64494; 73610; 73630; J0665

== ENCOUNTER 2025-04-23 10:09 | Outpatient (OUT) | payer BC, SELFPAY ==
--- OUTSIDE RECORDS SUMMARY | 2025-04-23 10:14 | XMS_ITS | Encounter Summary ---
Author Organization [facility] Address [address] [facility] [place] [address] Care Team Providers Care Spinner Continuous Name Role Phone Osvaldo Browne MD Primary Care Provider [phone] Encounter Details DateTypeDepartmentCare Team (Latest Contact Info)Kauhbudptku05/09/2025linisync Result Encounter [facility] External Department Unsolicited Renu Beltrán MD [address] [facility] [address] [place] [address] Social History Tobacco UseTypesPacks/DayYears UsedDateSmoking Tobacco: Every DayCigarettes Smokeless Tobacco: NeverAlcohol UseStandard Drinks/WeekCommentsNot Currently0 (1 standard drink = 0.6 oz pure alcohol)CommentsUnknownSex and Gender InformationValueDate RecordedSex Assigned at BirthNot on fileLegal SexFemale 08/12/2022 6:48 PM EDTGender IdentityNot on fileSexual OrientationNot on file documented as of this encounter Plan of Treatment DateTypeDepartmentCare Team (Latest Contact Info)Yxwsmtixjhp57/25/2025 3:50 PM ESTOffice Visit [facility] [address] [place] [address] [place] [address] Renu Beltrán MD [address] [facility] [address] [place] [address] documented as of this encounter Procedures Procedure NamePriorityDate/TimeAssociated DiagnosisCommentsANAEROBIC CULTURE Mwpbedk5003/08/2025 10:00 AM EDT AEROBIC KUTKHKGObaxczq97/09/2025 10:00 AM EDT documented in this encounter [...] Isolated TBHAEROBIC CULTUREPerformed at: CB - [facility]TB[facility] [id number] [place], [place] [id number] CULTURELab Director: Collin Rodriguez PhD, Phone: [phone] CULTURE Organism: ??2.1 Antibiotic ? Interpretation ? [...] :TBHANAEROBIC CULTURE *ABNORMAL*TBHANAEROBIC CULTUREScant growthTBHANAEROBIC CULTUREStudies at [employer] have confirmed theTBHANAEROBIC CULTUREobservations of others who have demonstrated thatTBHANAEROBIC CULTUREFusobacterium species are routinely susceptible toTBHANAEROBIC CULTURECefoxitin, Chloramphenicol, Clindamycin, MetronidazoleTBHANAEROBIC CULTUREand Penicillin.TBHANAEROBIC CULTURE Fusobacterium nucleatumTBHANAEROBIC CULTURE ??O:FUSNUC Isolated TBHSpecimen (Source)Anatomical Location / LateralityCollection Method / Volume Collection TimeReceived Time03/08/2025 10:00 AM EDT1 12:17 PM EDT Narrative CLINISYNC - 03/13/2025 2:09 PM EDT RIGHT MAXILLARY SINUS (SURGICAL SPECIMEN) Authorizing ProviderResult TypeResult StatusReun FLANAGAN BLOOD ORDERABLESFinal ResultPerforming OrganizationAddressty/State/ZIP CodePhone Number [facility] documented in this encounter Visit Diagnoses Not on filedocumented in this encounter Care Teams Team MemberRelationshipSpecialtyStart [place] [address] [place] [address] PCP - GeneralCardiology12/05/24documented as of this encounter
--- OUTSIDE RECORDS SUMMARY | 2025-04-23 10:14 | XMS_ITS | Clinical Summary ---
Author Organization [facility] Address [address] [place] [address] Care Team Providers Care Devulcanizer Tender Name Role Phone Osvaldo Browne MD Primary Care Provider [phone] Allergies Active AllergyReactionsCriticalityNoted DateCommentsAmoxicillin-Pot Clavulanate Asxviuad57/19/2024 Other Reaction(s): dizziness OgnwwoumgozcAmrwbgps29/20/2023Penicillin MOqbxFaw97/22/2025 Medications MedicationSigDispense QuantityRefillsLast FilledStart DateEnd DateStatus albuterol HFA 90 mcg/act inhaler TAKE 2 PUFFS BY MOUTH EVERY 4 TO 6 HOURS NQPRFJ345Active baclofen (Lioresal) 10 MG tablet TAKE ONE [...] evening and 600 mg before bedtime.Active HYDROcodone-acetaminophen (Parker) 7.5-325 MG tablet TAKE ONE TABLET BY [...] 5012/19/2025ctive Active Problems ProblemNoted DateDiagnosed DateAcute asthma ykphiztwccxa10/17/2025ronchitis 03/16/2025rushing injury of fifth toe of left foot03/16/2025Encounter for prophylactic measures, /17/8738Yeffxmdofvqm74/17/2025Impaired mobility and ADLs17542Mtqlmvsgatid91/17/1188Eykuxyntflsj89/17/2025Low serum ldnegnvuei10/17/9236Csujylgrsqkymh58/17/2025Panic vgmeuir6203/16/2025Pneumonia due to COVID-19 virus03/16/2025Postoperative ejhtge6703/16/2025Postoperative pain after spinal ycpjvjb9403/16/2025Right foot drop03/16/2025Lumbar radiculopathy 03/16/2025Hallux valgus (acquired), left foot12/13/2024 Encounters DateTypeDepartmentCare HixwQrowmkxijwl14/17/2025 11:30 AM EDTOffice Visit [facility] [address] [facility] [address] [place] [address] Renu Beltrán MD Chronic maxillary sinusitis (Primary Dx); Foreign body in nose, initial hdphjynjm43/17/2025amboo flowsheet [facility] [address] [place] [address] [place] [address] Renu Beltrán MD 03/16/20252690Ripyes82/13/2025Orders Only [facility] [address] [place] [address] [place] [address] Renu Beltrán MD 03/08/2025linisync Result Encounter [facility] External Department Unsolicited Renu Beltrán MD 03/08/2025Orders Only [facility] [address] [place] [place] [address] Renu Beltrán MD 03/02/2025linisync Result Encounter [facility] External Department Unsolicited Renu Beltrán MD 03/02/2025linisync Result Encounter [facility] External Department Unsolicited Renu Beltrán MD 03/02/2025linisync Result Encounter [facility] External Department Unsolicited Renu Beltrán MD 02/26/2025 3:20 PM EDTOffice Visit [facility] [address] [place] [place] [address] Renu Beltrán MD Chronic maxillary sinusitis (Primary Dx)02/26/2025amboo flowsheet [facility] [address] [place] [place] [address] Renu Beltrán MD 02/26/20259280Bfpjru13/19/2025linisync Result Encounter [facility] External Department Unsolicited Renu [...] Recorded Sex Assigned at BirthNot on fileLegal NfgPmpmod67/15/2023 6:48 PM EDTGender IdentityNot on fileSexual OrientationNot on file Last Filed Vital Signs Vital SignReadingTime TakenCommentsBlood Szcgfffr706/6903/16/2025 11:49 AM EDT Ouqku59051/17/2025 11:49 AM EDTTemperature--Respiratory Rate--Oxygen Saturation- -Inhaled Oxygen Concentration--Kwevhc09.1 kg (214 lb)03/16/2025 11:49 AM EDT Yvhsrq038 cm (5' 3 )03/16/2025 11:49 AM EDTBody Mass Index37.9103/16/2025 11:49 AM EDT Plan of Treatment DateTypeDepartmentCare Team (Latest Contact Info)Jacrcrvtcjl71/25/2025 3:50 PM ESTOffice Visit [facility] [address] [facility] [address] [place] [address] Renu Beltrán MD [address] [facility] [address] [place] [address] Health MaintenanceDue DateLast DoneCommentsCT Wynqqtnoyxqc65/05/1969Colonoscopy 1968Colorectal Cancer Pbiqqvbnz90/05/1969FIT-DNA1968FIT1968 FOBT1968 1802Zfycftqasrplf68/05/1969Pap Smear1989Cervical Cancer Zokdmywkk32/05/1999HPV/Qnmbvs8210/02/19981101Qurrscxbp37/05/2009COVID-19 Vaccine ( season)/04/2021, 10/12/2020Influenza Vaccine (#1)2025 05/23/2020, 03/22/2019Pneumococcal Vaccine: Pediatrics (0 to 5 Years) and At- Risk Patients (6 to 64 Years)Aged OutNo longer eligible based on patient's age to complete this topic Procedures Procedure NamePriorityDate/TimeAssociated DiagnosisCommentsSCANNED LABSRoutine 03/08/2025 3:37 PM EDTAEROBIC SEQSGITLigvvrp20/09/2025 10:00 AM EDT ANAEROBIC NGJJGQTGpnsnfc11/09/2025 10:00 AM EDT XR CHEST 2V1 9:02 AM EDT C[facility] OFTIJnzylul95/03/2025 8:35 AM EDT SRMCOH PROTHROMBIN TIME INR W/O EFFCIldtyqc83/03/2025 8:35 AM EDT ALL CBC WITH AUTO CLYUXkuefaz55/03/2025 8:35 AM EDT ECG 12-LEAD03/02/2025 8:[address] SINUS WO CON02/16/2025 8:13 AM EDT from Last 3 Months Results * SCANNED LABS (03/08/2025 3:37 PM EDT) Narrative Authorizing ProviderResult TypeResult StatusHiladmitri Beltrán [facility]DMER[facility] PERFORMABLESFinal Result * ANAEROBIC CULTURE (03/08/2025 [...] MAXILLARY SINUS (SURGICAL SPECIMEN) Authorizing ProviderResult TypeResult StatusHilaWestchester Square Medical Center [facility] BLOOD ORDERABLESFinal ResultPerforming OrganizationAddressCity/State/ZIP CodePhone Number CLINISYNC [...] CULTURE ??O:ART Isolated TBHAEROBIC CULTUREPerformed at: - LabSatanta District HospitalROBIC [id number] [place], [place] [id number] CULTURELab Director: Collin Rodriguez PhD, Phone: [phone] CULTURE Organism: ??2.1 Antibiotic ? Interpretation ? [...] EDT Narrative 03/02/2025 9:05 AM EDT [facility] ?[address] ? [place], [place] [address] ?XRay Report ? Signed ? Patient: KIM HILL ?MR#: [id number] ?? : 1970 ?Acct:[id number] ?? Age/Sex: 54 / F ?ADM Date: 03/02/25 ?? Loc: PST ? Attending Dr: Renu Beltrán M.D. ? Ordering Physician: Renu Beltrán M.D. ?? Date of Service: 03/02/25 ?? Procedure(s): XR chest 2V ?? Accession Number(s): [id number] ? cc: JOSEPH MARK ; Renu Beltrán M.D. ? [facility] ? [address] ? [place] [address] ? Patient Name: ?? KIM HILL ? MRN: [facility]:[id number] ? date: 1970 ?Sex: F ?? Assigned Patient Location: PST ?? Current Patient Location: PST ?? Accession/Order Number: [id number] ?? Exam Date: 03/02/2025 ??08:50 ?Report Date: [...] Dictation Location: RADIO-PC-24 ? Electronically authenticated by: [id number] ??Y ?? Date: 03/02/2025 ??09:02 ? Dictated By: ?Tate Alva M.D. ? Signed By: ?10/03/25 0905 ? DD/ 0902 ? TD/TT: ? Manager Exchange: Procedure Note Radiology, Radiologist, MD - 03/02/2025 [place] [address] XRay Report Signed Patient: KIM HILL R#: [id number] : 1970Acct:[id number] Age/Sex: 54 / FADM Date: 03/02/25 Loc: PST Attending Dr: Renu Beltrán M.D. Ordering Physician: Renu Beltrán M.D. Date of Service: 03/02/25 Procedure(s): XR chest 2V Accession Number(s): [id number] cc: JOSEPH MARK ; Renu Beltrán M.D. [place] [id number] Patient Name: KIM HILL MRN: [id number] date: 1970 Sex: F Assigned Patient Location: [facility] Current Patient Location: PST Accession/Order Number: [id number] Exam Date: 03/02/2025 08:50 Report Date: 03/02/2025 [...] Alva M.D. 03/02/2025 9:02 AM Dictation Location: [place] [address] Electronically authenticated by: [id number] Y Date: 9:02 Dictated By: Tate Alva M.D. Signed By:03/02/25904 DD/ 1 TD/TT: Manager Exchange: Authorizing ProviderResult TypeResult StatusRenu Beltrán MDCLINISYNC IMAGING [...] 9:10 AM EDT Authorizing ProviderResult TypeResult StatusRenu eBltrán MDCLINISYNCFinal ResultPerforming OrganizationAddressCity/State/ZIP CodePhone Number [facility] * [facility] APTT (03/02/2025 8:35 AM EDT)ComponentValueRef RangeTest MethodAnalysis TimePerformed AtPathologist SignaturePARTIAL THROMBOPLASTIN TIME26.722.3 - 36.2 secTBHSpecimen (Source)Anatomical Location / LateralityCollection Method / VolumeCollection TimeReceived Time03/02/2025 8:35 AM EDT1 8:45 AM EDT Narrative [facility] - 03/02/2025 9:10 AM EDT Authorizing ProviderResult TypeResult StatusHilary H Timmis MDCLINISYNCFinal ResultPerforming OrganizationAddressCity/State/ZIP CodePhone Number [facility] * (ABNORMAL) ALL CBC WITH AUTO DIFF (03/02/2025 8:35 AM EDT)ComponentValueRef RangeTest MethodAnalysis TimePerformed AtPathologist SignatureTBH WBC9.14.0 - 11.0 10 3/uLTBHTBH RBC3.71(L)4.20 - 5.40 10 6/uLTBHTBH HGB12.212.0 - 16.0 g/dL TBHTBH HCT36.936.0 - 48.0 %TBHTBH MCV99.5(H)81.0 - 99.0 fLTBHTBH MCH32.926.7 - 34.0 pgTBHTBH MCHC33.129.9 - 35.2 g/dLTBHTBH RDW11.911.0 - 15.0 %TBHTBH VUQ056 150 - 450 10 3/uLTBHTBH MPV9.79.5 - [...] EDT Narrative 03/02/2025 6:45 PM EDT [facility] ?[address] ? [place] [address] ? Electrocardiograph Report ? Signed ? Patient: KIM HILL ?MR#: [id number] ?? : 1970 ?Acct:[id number] ?? Age/Sex: 54 / F ?ADM Date: 03/02/25 ?? Loc: PST ? Attending Dr: Renu Beltrán M.D. ? Ordering Physician: Renu Beltrán M.D. ?? Date of Service: 03/02/25 ?? Procedure(s): ECG 12 lead ?? Accession Number(s): [id number] ? cc: ?[facility] ? Test Date: ?2025-03-02 ?? Pat Name: ? KIM HILL ?Department: ? Room: ? - ?? Gender: ? Female ? Autographer: ? : ?1970 ? Requested By: RENU TIMMIS ?? Order Number: [id number] ?Reading MD: ?? RENE ??Mally COSTELLOD. ? Measurements ?? Intervals ?Maxwell ? Rate: ? 80 ? P: ?35 ?? RI: ? 158 ?QRS: ?11 ?? QRSD: ? [...] 1845 ? DD/ 5 ? TD/TT: ? Manager Exchange: Procedure Note Radiology, Radiologist, - 03/02/2025 [place] [address] Electrocardiograph Report Signed Patient: KIM HILL LMR#: [id number] : 1970Acct:[id number] Age/Sex: 54 / FADM Date: 03/02/25 Loc: PST Attending Dr: Renu Beltrán M.D. Ordering Physician: Renu Beltrán M.D. Date of Service: 03/02/25 Procedure(s): ECG 12 lead Accession Number(s): [id number] cc: [facility] Test Date: 2025-03-02 Pat Name: KIM HILL Department: Room: - Gender: Female Autographer: : 1970 Requested By: RENU BELTRÁN Order Number: [id number] Reading MD: RENE COSTELLO M.D. Measurements Intervals Maxwell Rate: 80 P: 35 RI: 158 QRS: 11 QRSD: 91 T: 42 [...] COSTELLO Signed By:03/02/25 1845 DD/ 0826 TD/TT: Manager Exchange: Authorizing ProviderResult TypeResult StatusHilary Xander Beltrán MDCLINISYNC IMAGING Final Result * CT SINUS WO CON (02/16/2025 8:13 AM EDT)Anatomical RegionLateralityModality OtherSpecimen (Source)Anatomical Location / LateralityCollection Method / VolumeCollection TimeReceived Time02/16/2025 8:13 AM EDT Narrative 02/16/2025 8:16 AM EDT [facility] ?[address] ? [place] [address] ? CT Scan Report ? Signed ? Patient: NOE,KIM L ?MR#: [id number] ?? : 1970 ?Acct:[id number] ?? Age/Sex: 54 / F ?ADM Date: 09/18/25 ?? Loc: CT ? Attending Dr: Renu Beltrán M.D. ? Ordering Physician: Renu Beltrán M.D. ?? Date of Service: 02/15/25 ?? Procedure(s): CT sinus wo con ?? Accession Number(s): [id number] ? cc: JOSEPH MARK ? [facility] ? [address] ? [place] [address] ? Patient Name: ?? KIM Oglesby NOE ? MRN: [facility]:[id number] ? date: 1970 ?Sex: F ?? Assigned Patient Location: CT ?? Current Patient Location: ? Accession/Order Number: [id number] ?? Exam Date: 02/15/2025 ??15:20 ?Report Date: [...] Dictation Location: RADIO-PC-30 ? Electronically authenticated by: [id number] ??Y ?? Date: 02/16/2025 ??08:13 ? Dictated By: ?Shalonda Mckee M.D. ? Signed By: ?02/16/25 0816 ? DD/ 0813 ? TD/TT: ? Manager Exchange: Procedure Note Radiology, Radiologist, MD - 02/16/2025 [place] [address] CT Scan Report Signed Patient: KIM HILL LMR#: [id number] : 1970Acct:[id number] Age/Sex: 54 / FADM Date: 02/15/25 Loc: CT Attending Dr: Renu Beltrán M.D. Ordering Physician: Renu Beltrán M.D. Date of Service: 02/15/25 Procedure(s): CT sinus wo con Accession Number(s): [id number] cc: JOSEPH MARK [place] [address] Patient Name: KIM HILL MRN: [id number] date: 1970 Sex: F Assigned Patient Location: CT Current Patient Location: Accession/Order Number: [id number] Exam Date: 02/15/2025 15:20 Report Date: 02/16/2025 [...] Mckee M.D. 02/16/2025 8:13 AM Dictation Location: [place] [address] Electronically authenticated by: [id number] Y Date: 508:13 Dictated By: Shalonda Mckee M.D. Signed By:02/16/25815 DD/ 2 TD/TT: Manager Exchange: Authorizing ProviderResult TypeResult StatusHilary Xander Beltrán MDCLINISYNC IMAGING Final Result from Last 3 Months Insurance * Guarantor: Kim Hill TypeRelation to PatientDate of BirthPhone Billing AddressPersonal/GogopsQnhs12/05/1971 [address] [place] [phone] Care Teams Team MemberRelationshipSpecialtyStart [place] [address] [place] [address] PCP - GeneralCardiology12/05/24
--- OUTSIDE RECORDS SUMMARY | 2025-04-23 10:15 | XMS_ITS | Clinical Summary ---
Author Organization [facility] Address [address] [facility] [facility], [address] [place] [address] Care Team Providers Care Operator Technician Name Role Phone Aby Yu APRN - SENIOR RESIDENT CARE DIRECTOR Primary Care Pro vider Allergies Active AllergyReactionsCriticalityNoted DateCommentsAmoxicillin-Pot Clavulanate Ixpxgqgb82/19/2024lavulanic FhuvNjkgbol82/17/0200FtcfauwdunpFigicjg47/17/2021 Medications MedicationSigDispense QuantityRefillsLast FilledStart DateEnd DateStatus pantoprazole [...] tablet Take 1 tablet by mouth every mvopdep0309/14/2023ctive TRELEGY ELLIPTA 200-62.5-25 MCG/ACT AEPB inhaler INHALE [...] InformationValueDate RecordedSex Assigned at BirthNot on fileLegal SqkLvqpae60/10/2013 2:48 PM EST Gender IdentityNot on fileSexual OrientationNot on file Last Filed Vital Signs Vital SignReadingTime TakenCommentsBlood Fpolazqt322/8007 9:39 AM EDT Wbfqc532612/17/2023 9:39 AM EDTTemperature--Respiratory Xjhh254912/17/2023 9:39 AM EDTOxygen Saturation--Inhaled Oxygen Concentration--Mljzsk10.9 kg (218 lb) 12/17/2023 9:39 AM UZCPvvclu086 cm (5' 3 )12/17/2023 9:39 AM EDTBody Mass Index 38.6207 9:39 AM EDT Plan of Treatment Health MaintenanceDue DateLast DoneCommentsDepression Oiorhk2410/02/1980HIV screen 10/03/1983Hepatitis C qiwyqh7110/02/1986DTaP/Tdap/Td vaccine (1 - Tdap)10/03/1987 Hepatitis B vaccine (1 of 3 - 19+ 3-dose series)10/03/1987Breast cancer screen 10/02/20080217Tqnjin77/05/4716Yhtqeoyjgqz72/05/2014Colorectal Cancer Screen 2013FIT/FOBT: Average risk2013Fecal-DNA (Cologuard): Average risk 2013Sigmoidoscopy/CT vyepatumlbvs97/05/2014Pneumococcal 50+ years Vaccine (1 of 1 - [...] Date Aby Yu, YOVANI - [address] [place] [address] PCP - GeneralFatxly Medicine10/07/23
--- OUTSIDE RECORDS SUMMARY | 2025-04-23 10:15 | XMS_ITS | Clinical Summary ---
Author Organization [employer] [facility] tem Address [id number] [place] [address] Care Team Providers Care [employer] Name Role Phone Unavailable Primary Care Provider Unavailabl e Social History Tobacco UseTypesPacks/DayYears UsedDateSmoking Tobacco: Never AssessedChildcare AnswerDate UygrczieMknyghdtfXgamjbs96/12/2019EmploymentAnswerDate Recorded OsadvzesbxOqbbkep58/12/2019CommentsUnknownSex and Gender Information ValueDate RecordedSex Assigned at BirthNot on fileLegal TukKjutwo07/06/2015 11:23 AM EDTGender IdentityNot on fileSexual OrientationNot on file Plan of Treatment Not on file Medical Devices Not on file
--- OUTSIDE RECORDS SUMMARY | 2025-04-23 10:15 | XMS_ITS | Clinical Summary ---
Author Organization [facility] Address [address] [place] [id number] Care Team Providers Care Supply Technician Name Role Phone Aby Yu CNP Unavailable [phone] Allergies Active AllergyReactionsCriticalityNoted DateCommentsPenicillinsRash,Diarrhea Tndgcj8206/09/2024 Medications MedicationSigDispense QuantityRefillsLast FilledStart DateEnd DateStatus gabapentin [...] 10 mg by mouth daily at bedtime.Active fxxpuwszxay-dgsyafiqe-zgcyzbvc (TRELEGY ELLIPTA) 100-62.5-25 mcg inhalation powder Inhale [...] drink = 0.6 oz pure alcohol)PHQ-2AnswerDate RecordedPHQ-2 ekxjb930rea Deprivation IndexAnswerDate RecordedNational Score (1-100), lower number is lower risk61 06/09/2024State Score (1-10), lower number is lower gkzj96406/09/2024Data from: https://www.neighborhoodatlas.medicine.[facility]/. Last address used for [address] [facility]06/09/2024CommentsNoSex and Gender InformationValueDate RecordedSex Assigned at BirthNot on fileLegal SexFemale 07/20/2019 1:04 PM ESTGender IdentityNot on fileSexual OrientationNot on file Last Filed Vital Signs Vital SignReadingTime TakenCommentsBlood Mjayokke174/9504 2:59 PM EDT Nfwsd8701 2:59 PM EDTTemperature--Respiratory Xirw255909/26/2024 2:59 PM EDTOxygen Bydwpmntrv77%09/26/2024 2:59 PM EDTInhaled Oxygen Concentration-- Ftocab69.7 kg (215 lb 4.5 oz)09/26/2024 2:59 PM ZACLbkbfy460 cm (5' 3 ) 09/26/2024 2:59 PM EDTBody Mass Index38.1404 2:59 PM EDT Plan of Treatment Health MaintenanceDue DateLast DoneCommentsAnxiety Woxvexgzd70/05/1987Depression Csdeobten45/05/1987HIV Ziemvmsgk38/05/1987Hepatitis C Mujniuget08/05/1987 DTaP,Tdap,Td Vaccine (1 - Tdap)10/03/1987Hepatitis B Vaccine (1 of 3 - 19+ 3- dose series)10/03/1987Pneumococcal Vaccine: 50+ (1 of 2 - PCV)10/03/1987Cervical Cancer Samvcmcte06/05/1990Mammogram Fswjgejst39/05/2009CT Jfmeepnqwoma57/05/2014 Cologuard (FIT-DNA)10/02/20138278Uenowxbnryy13/05/2014Colorectal Cancer Screening 2013Diabetes Abfykegpk41/05/2014Fecal Occult Blood2013Lipid Llnbneysx83/05/9512Ebsvkvvusnobh02/05/2014Shingrix Vaccine (1 of 2)2018 Covid-19 Vaccine ( season)/04/2021, 10/12/2020Influenza Vaccine (#1), 03/22/2019 Insurance Care Teams Team MemberRelationshipSpecialtyStart DateEnd Date Aby Yu CNP [address] [place] [address] ReferringFamily Bvrsalot37/3/24
--- OUTSIDE RECORDS SUMMARY | 2025-04-23 10:32 | XMS_ITS | CCD ---
Author Organization [facility] Care Team Providers Care Window Unit Air Conditioning Mechanic Name Role Phone Roberto Roth Primary Care Provider [phone] Justice Cruz Attending Provider DO Roberto Roth Primary Care Provider MD Hood Rausch Attending Provider DO Roberto Roth Primary Care Provider [phone] CALVIN Mark Attending Provider [phone] MD Paresh Tian Attending Provider RothDO Roberto oliva Primary Care Provider CALVIN Mark Attending Provider MD Paresh Tian Attending Provider [phone] MD Gina Guerrero Attending Provider Gina Guerrero [...] ROTH, DR ROBERTO Bhakta Primary Care Unavailable RUASCH ., DR HOOD Hernandez Consulting Unavailable NATALEE [...] IRA, DR ROBERTO Bhakta Primary Care Unavailable EDGERTON, DR DASHA Gomez Consulting Unavailable SINGH ., [...] Primary Care Unavailable Aby Mark CNP Unavailable LOS SARMIENTO Attending Unavailable ABY MARK Referring Unavailable LOS SARMIENTO Attending Unavailable ABY MARK Referring Unavailable LOS SARMIENTO Attending Unavailable Osvaldo Browne MD Primary Care Provider Gilitaitis , Andrius Musa Attending Unavailable Giedraitis , Andrius Voniel Attending Unavailable Giedleighton BUSTILLO, Andrius Musa Attending [...] of OnsetReaction(s) Facility (7 sources)Amoxicillin; Translations: [amoxicillin]Drug Meyusnd07-66-1181KdfqieKettering Health [facility]ble (12 sources)Penicillins; Translations: [Penicillins]Propensity to adverse aubglmbvf89-13-2936LezdAv[facility] (7 sources)clavulanic acid; Translations: [clavulanic acid]Propensity to adverse cuzawyxzv83-78-0682KoadxjBaxknblirTriHealth [facility] (3 sources)Amoxicillin / Clavulanate; Translations: [Augmentin]Drug Allergy 96-83-6747KdelsmcYluNewark Hospital [facility] (6 sources)AzithromycinDrug Rymmhpg50-68-0702IckkqplhPlgvqvmtySt. Vincent Hospital (16 sources)Penicillin GDrug Tejeocd68-54-6992NredMaqurZeta Interactive Other (13 sources)Amoxicillin-Pot ClavulanateDrug Topfapx70-84-4926NxhhnetdLAVV Healthcare (1 source)AzithromycinDrug Zmgqisc13-82-0817IicqnegetKettering Health [facility]ble Repository (1 source)PenicillinDrug Jpbdwyi43-48-7701PbqtbjwhxKettering Health [facility] Repository Medications Current Medications MedicationDrug Class(es)DatesSig (Normalized)Sig (Original)acetaminophen 500 mg oral tablet (5 sources)Start: 13-56-7143otcz 1 tablet by mouth every four hours as needed for painacetaminophen 325 mg / HYDROcodone bitartrate 7.5 mg oral tablet (20 sources)Opioid AgonistStart: 46-28-7798bkak 1 tablet by mouth three times daily as needed for painHYDROcodone-acetaminophen ([place]) 7.5-325 MG tablet TAKE ONE TABLET BY MOUTH THREE TIMES A DAY NEEDED FOR PAIN. MUST LAST 30 DAYS 12/08/2024 ActiveStart: 03-18-2019 End: 83-53-6955bhsm 1 tablet by mouth three times daily as needed for pain Hydrocodone-Acetaminophen ([place]) 5-325 mg Tablet Discontinued 1 TAB PO Three times daily as neededfor Pain March 18, 2019 12:00am May 23, 2020 4:59pmtake 7.5 mg by mouth three times dailyhydrocodone/acetaminophen (NORCO ORAL) Take 7.5 mg by mouth three times a day. ActiveNorco Hicbmfmxw306594 200 actuat albuterol 0.09 mg/actuat metered dose inhaler (20 sources)beta2-Adrenergic AgonistStart: 69-35-1833ruop 2 puff(s) by mouth every four to six hours as neededalbuterol HFA 90 mcg/act inhaler TAKE 2 PUFFS BY MOUTH EVERY 4 TO 6 HOURS NEEDED 11/25/2024 ActiveStart: 35-93-8954oryl 1 puff(s) by inhalation every three hours as needed for coughStart: 47-89-5505akie 1 puff(s) by inhalation every six hoursAlbuterol Sulfate (Proair Hfa) 90 mcg/actuation Hfa Aerosol Inhaler Active 1 - 2 PUFF INHALATION Q6H March 17, 2019 11:33pmStart: 03-18-2019 End: 37-97-1957tmvw 1 puff(s) by inhalation every six hours [...] VIAL PER NEBULIZER 3 TIMESDAILY 05/04/2024 ActiveStart: 53-23-8244jpys 1 mL by inhalation four times daily [...] tablet (13 sources)Histamine-1 Receptor AntagonistStart: 12-19-2024 End: 68-73-7741cbbi 1 tablet by mouth once daily as neededcetirizine (ZyrTEC) 10 MG tablet Indications: Chronic maxillary sinusitis Take 1 tablet (10 mg) by m outh Daily as needed for allergies 90 tablet 3 12/19/2024 12/19/2025 Active fluticasone propionate 0.05 mg/actuat metered dose nasal spray (13 sources)CorticosteroidStart: 78-32-4335eqyckoqzozp (Flonase) 50 MCG/ACT nasal spray Indications: Chronic maxillary sinusitis 2 sprays to the right nose twice daily. Shake gently. Before first use, prime pump. After use, clean tip and replace cap. 48 g 3 12/19/2024 Ildhuo60 actuat fluticasone furoate 0.1 mg/actuat / umeclidinium 0.0625 mg/actuat / vilanterol 0.025 mg/actuat dry powder inhaler (3 sources)Anticholinergic, Corticosteroid, beta2-Adrenergic Agonisttake 1 puff(s) by inhalation once apictxokxseqrbbx-jfxyxabus-hvirbnas (TRELEGY ELLIPTA) 100-62.5-25 mcg inhalation powder Inhale 1 Puff asinstructed once daily. Active gabapentin 300 mg oral capsule (20 sources)Anti-epileptic AgentStart: 56-02-7518sozx 2 capsules by mouth three times dailyStart: 17-71-0251mztq 600 mg by mouth three times dailyGabapentin Active 600 MG PO Three times daily 0 May 31, 2020 1:00amStart: 03-18-2019 End: 02-45-4535bfqw 1 tablet by mouth three times dailyGabapentin 600 mg Tablet Discontinued 600 MG PO Three times daily March 18, 2019 12:00am June 01, 2020 10:48amlisinopril 10 mg oral tablet (20 sources)Angiotensin Converting Enzyme InhibitorStart: 05-14-2020 End: 60-13-3541udxo 1 tablet by mouth once dailymeloxicam 15 [...] capsule (11 sources)Proton Pump InhibitorStart: 05-14-2020 End: 91-64-6556biwk 1 capsule by mouth once dailyoxyCODONE hydrochloride 5 mg oral tablet (20 sources)Opioid AgonistStart: 19-75-3409brdr 7.5 mg by mouth every four hours as needed for painStart: 96-82-6622znom 7.5 mg by mouth every four hours Oxycodone Active 7.5 MG PO Q4H June 23, 2021 5:32pmStart: 05-31-2020 End: 98-30-3357saqq 2 tablets by mouth every four hours as needed for pain Oxycodone 5 mg Tablet Discontinued 10 MG PO Every 4 hours as needed for Pain 0 May 31, 2020 June 23, 2021 5:32pmStart: 05-31-2020 End: 17-22-8679tpdl 10 mg by mouth every four hoursOxycodone Discontinued 10 MG PO Every 4 hours 0 May 31, 2020 June 23, 2021 5:32pmStart: 05-23-2020 End: 85-84-7966kzvb 1 tablet by mouth every four hours [...] mg oral tablet (12 sources)Start: 12-19-2024 End: 25-08-9453pkju 1 tablet by mouth in the morningpredniSONE (Deltasone) 20 MG tablet Indications: Chronic maxillary sinusitis Take 1 tablet (20 mg) by mouth in the morning and 1 tablet (20 mg) before bedtime. Do all this for 6 days. 12 tablet 12/19/2024 12/25/2024 ActiveStart: 25-63-2447Qgytz: 02-14-2021 End: 67-57-0908cjpf 3 tablets by mouth once daily at mealtimePrednisone 20 mg tablet Discontinued 60 MG PO Daily February 14, 2021 12:00am June 23, 2021 5:32pm administer with food or milkStart: 02-14-2021 End: 52-54-9050zikm 60 mg by mouth once daily at mealtimePrednisone Discontinued 60 MG PO Daily February 14, 2021 12:00am June 23, 2021 5:32pm adm inister with food or milkTrelegy Ellipta 200-62.5-25 MCG/ACT aerosol powder (13 sources)Start: 91-04-5413aebl 1 puff(s) by inhalation once dailyTrelegy Ellipta 200-62.5-25 MCG/ACT aerosol powder INHALE 1 PUFF BY INHALATION ROUTE ONCE DAILY AT THE SAME TIME EACH DAY 10/04/2024 Activevitamin b12 0.5 mg sublingual tablet (13 sources)Vitamin Q38Bmldqxtzqbuwct (B-12) [address] under the tongue ActiveZinc Sulfate (13 sources)Zinc Sulfate (ZINC 15 PO) Take by mouth Active Completed/Discontinued Medications MedicationDrug Class(es)DatesSig (Normalized)Sig (Original)azithromycin 250 mg oral tablet (5 sources)Macrolide AntimicrobialStart: 02-14-2021 End: 88-44-0753wmcq 2-5 tablets by mouth once dailyAzithromycin (Zithromax) 250 mg tablet Discontinued 0 PO .COMPLEX February 14, 2021 12:00am June 23, 2021 5:30pm take 500 mg today (day 1), then 250 mg for 4 days (days 2-5) benzonatate 100 mg oral capsule (5 sources)Non-narcotic AntitussiveStart: 02-14-2021 End: 35-98-1882tpsi 1 capsule by mouth three times daily as needed for cough Benzonatate (Tessalon Perles) 100 mg capsule Discontinued 100 MG PO Three times daily as needed forcough February 14, 2021 12:00am June 23, 2021 5:30pmcyclobenzaprine hydrochloride 10 mg oral tablet (5 sources)Muscle RelaxantStart: 05-31-2020 End: 45-85-1338qjqc 1 tablet by mouth every eight hours as needed for muscle spasmsCyclobenzaprine 10 mg Tablet Discontinued 10 MG PO Every 8 hours as needed for Muscle spasms May 31, 2020 1:00am June 23, 2021 5:31pmdiazePAM 5 mg oral tablet (5 sources)BenzodiazepineStart: 05-23-2020 End: 63-76-1993ibem 1 tablet by mouth four times daily as needed for muscle spasmsDiazepam 5 mg Tablet Discontinued 5 MG PO Four times daily as needed for Muscle Spasm 30 May 23, 2020 1:00am June 01, 2020 10:48amdocusate sodium 100 mg oral capsule (5 sources)Start: 05-31-2020 End: 00-71-5574zgru 1 capsule by mouth twice dailyDocusate Sodium (Dok) 100 mg Capsule Discontinued 100 MG PO Twice daily May 31, 2020 1:00amJune 23, 2021 5:31pmibuprofen 800 mg oral tablet (6 sources)Nonsteroidal Anti-inflammatory DrugStart: 03-18-2019 End: 94-12-4283jezv 1 tablet by mouth three times daily as needed for pain Ibuprofen 800 mg tablet Discontinued 800 MG PO Three times daily as needed for pain March 18, 2019 12:00am May 14, 2020 2:41pmlidocaine 0.04 mg/mg medicated patch (5 sources)Antiarrhythmic, Amide Local AnestheticStart: 05-31-2020 End: 68-21-9134nwnnt 1 dose topically once dailyLidocaine (Aspercreme (Lidocaine Hcl)) 4 % Adhesive Patch,Medicated Discontinued 2 PATCH TOPICAL Daily May 31, 2020 1:00am June 23, 2021 5:31pmnaproxen 250 mg oral tablet (5 sources)Nonsteroidal Anti-inflammatory DrugStart: 05-31-2020 End: 27-06-1316epek 1 tablet by mouth once at mealtime as needed for pain Naproxen 250 mg Tablet Discontinued 250 MG PO 3x/Day with meals as needed for pain May 31, 2020 1:00am June 23, 2021 5:31pm24 hr nicotine 0.875 mg/hr transdermal system (10 sources)Cholinergic Nicotinic AgonistStart: 05-23-2020 End: 12-91-6138hyhpu 1 dose transdermal route every twenty-four hoursNicotine 21 mg/24 hr Patch 24 Hour Discontinued 1 PATCH TRANSDERML Daily May 31, 2020 1:00amJune 23, 2021 5:31pmStart: 05-23-2020 End: 60-65-3349crxgc 1 dose transdermal route once dailyNicotine Discontinued 1 PATCH TRANSDERML Daily May 31, 2020 1:00am June 23, 2021 5:31pm Sennosides (Senna Lax) 8.6 mg Tablet (4 sources)Start: 05-31-2020 End: 05-17-5884zxtj 2 tablets by mouth once dailySennosides (Senna Lax) 8.6 mg Tablet Discontinued 2 TAB PO DAILY@12 60 May 31, 2020 12:00am June 23, 2021 4:32pmStart: 05-31-2020 End: 08-83-1332hdwo 2 tablets by mouth once dailySennosides (Senna Lax) 8.6 mg Tablet Discontinued 2 TAB PO DAILY@12 60 May 31, 2020 1:00am June 23, 2021 5:32pmsennosides, care home 8.6 mg oral tablet (1 source)Start: 05-31-2020 End: 26-36-1963hnvo 2 tablets by mouth once daily as neededSennosides (Senna Lax) 8.6 mg Tablet Discontinued 2 TAB PO DAILY@12 as needed for If no BM in 2 days 60 May 31, 2020 1:00am June 23, 2021 5:32pm7 actuat umeclidinium 0.0625 mg/actuat / vilanterol 0.025 mg/actuat dry powder inhaler (6 sources)Anticholinergic, beta2-Adrenergic AgonistStart: 03-18-2019 End: 78-93-0899Durtvikcnvmx-Vilanterol (Anoro Ellipta) 62.5-25 mcg/actuation Blister With Device Discontinued 1 PUFF INHALATION Q48H March 18, 2019 12:00am June 01, 2020 10:48am Problems Active Problems Problem ClassificationProblemDateDocumented DateEpisodic/ChronicAcquired foot deformities (14 sources)Acquired left hallux valgus; Translations: [Hallux valgus (acquired), left foot]Onset: 977927-34-1804GkvogdpKxstxtjt foot deformities (9 sources)Foot-drop; Translations: [Foot drop, right foot]Onset: 03-16-2025 47-47-0563EkrepnhqBhvwcjcgstqwtw/social admission (8 sources)Other reduced mobility; Translations: [Impaired mobility and activities of daily living]Onset: 254061-52-9124YglklsgeSsizkrp disorders (8 sources)Panic attack; Translations: [Panic disorder [episodic paroxysmal anxiety]]Onset: 350330-89-6272UhcnbugTbfifs (18 sources)Exacerbation of asthma; Translations: [Unspecified asthma with (acute) exacerbation]Onset: 237521-36-3751ZluulntPzxlgozun infection; unspecified site (2 sources)History of methicillin resistant Staphylococcus aureus infection; Translations: [Personal history of Methicillin resistant Staphylococcus aureus infection]90-32-5216WyoqoopiZqabsin obstructive pulmonary disease and bronchiectasis (8 sources)Bronchitis; Translations: [Bronchitis, not specified as acute or chronic]Onset: 125521-86-8145UupktfcxVlfcdmdb injury or internal injury (9 sources)Crushing injury of left lesser toe(s), initial encounter; Translations: [Crush injury of toe of left foot]Onset: EpisodicDeficiency and other anemia (8 sources)Anemia; Translations: [Anemia, unspecified]Onset: 03-16-2025 52-12-5690NorhlpdlHwawrrpd of white blood cells (8 sources)Leukocytosis; Translations: [Elevated white blood cell count, unspecified]Onset: 872307-27-6203BduefkqGvhdamhdp hypertension (8 sources)Hypertensive disorder; Translations: [Essential (primary) hypertension]Onset: 750206-74-2674UzbroqlMvaonadmma (except that caused by tuberculosis or sexually transmitted disease) (1 source)Adhesive arachnoiditis; 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, unspecified] 78-74-6107WwraksfgYuabnmismncnuk (14 sources)Osteoarthritis; Translations: [Unspecified osteoarthritis, unspecified site]Onset: 509727-66-6123QmzrjbiEtowg acquired deformities (5 sources)Lumbar spondylolisthesis; Translations: [Spondylolisthesis, lumbar region]78-23-3857HhwlzimoDpwir acquired deformities (2 sources)Spondylolisthesis; Translations: [Spondylolisthesis, lumbar region] EpisodicOther aftercare (2 sources)High risk drug monitoring status; Translations: [senior living (current) use of opiate analgesic]EpisodicOther connective tissue disease (8 sources)Fibromyalgia; Translations: [Fibromyalgia]Onset: EpisodicOther injuries and conditions due to external causes (2 sources)Foreign body in nose; Translations: [Foreign body in nostril, initial encounter]39-13-8838CjksbntmZycmg nervous system disorders (2 sources)Chronic pain; Translations: [Other chronic pain]ChronicOther nervous system disorders (2 sources)Meralgia paresthetica; Translations: [Meralgia paresthetica, right lower limb]ChronicOther nervous system disorders (6 sources)Other chronic pain; Translations: [OTHER CHRONIC PAIN]Onset: 80-85-4746ZrvawbeRgvor nervous system disorders (4 sources)Other specified mononeuropathies of right lower limb; Translations: [OTH SPEC MONONEUROPATH RT LOW LIMB]Onset: 63-08-6822JviwqcoXzwhl nervous system disorders (1 source)Other specified mononeuropathies; Translations: [OTHER SPECIFIED MONONEUROPATHIES]Onset: 14-46-1467PbqbkpfCrdtw nervous system disorders (8 sources)Postoperative pain ; Translations: [Other acute postprocedural pain] Onset: 274947-93-4809HhdeyglwBsdow non-traumatic joint disorders (1 source)Pain in right hip; Translations: [PAIN IN RIGHT HIP]Onset: 10-10-2022 EpisodicOther screening for suspected conditions (not mental disorders or infectious disease) (8 sources)Protein level - finding; Translations: [Other specified abnormal findings of blood chemistry]Onset: 262352-96-8048ZnbmyhlkDgfyy upper respiratory infections (6 sources)Chronic maxillary sinusitis; Translations: [Chronic maxillary sinusitis]07-92-1437OgzvfggRekgtnum codes; unclassified (8 sources)Patient encounter status; Translations: [Encounter for prophylactic measures, unspecified]Onset: 780598-68-8244HpvlgftgMveataeg codes; unclassified (5 sources)History of operative procedure on lumbar spinal structure; Translations: [Other specified postprocedural states]55-51-1579AdujutgfBbbuzoto codes; unclassified (2 sources)Olfactory hallucinations; Translations: [Other hallucinations] 33-64-1640NhlfydmaVebnxtgep and history of mental health and substance abuse codes (1 source)Tobacco smoking consumption aziwpht42-12-6858OejfioeCwjubqxgjwz; intervertebral disc disorders; other back problems (19 sources)Inflammation of sacroiliac joint; Translations: [Sacroiliitis, not elsewhere classified]Onset: 68-22-5035ZiznhgzElmgtabidcl; intervertebral disc disorders; other back problems (20 sources)Lumbar radiculopathy; Translations: [Radiculopathy, lumbar region] Onset: 469464-35-0397TkxtsehlSncikjzpkdbd (4 sources)Tobacco smoking consumption unknown; Translations: [Tobacco smoking status unknown]33-40-8762Mzaebiojykxm (4 sources)LOW BACK PAIN, UNSPECIFIED; Translations: [LOW BACK PAIN, UNSPECIFIED]Onset: 94-03-5884Suvcdwtghobl (1 source)CONTACT W/AND (SUSP) EXPOS COVID-19; Translations: [CONTACT W/AND (SUSP) EXPOS COVID-19]Onset: 15-88-9945Jakel infection (13 sources)COVID-19; Translations: [Pneumonia due to COVID-19 virus]Onset: 914214-25-3285Odlqgsks Past or Other Problems Problem ClassificationProblemDateDocumented DateEpisodic/ChronicOther connective tissue disease (1 source)Arthrodesis status; Translations: [ARTHRODESIS STATUS]Onset: 01-47-8970MovjqzpiOwaihjogjvgh (1 source)Low back pain, unspecified M54.50Unclassified (1 [...] CULTURE O:STAEPI Isolated [facility] HealthcareAEROBIC CULTUREPerformed at: [facility]Cro[facility] AEROBIC [id number] [place], [place] [id number] HealthcareAEROBIC CULTURELab Director: Collin Rodriguez PhD, Phone: [phone] Healthcare AEROBIC CULTURE Organism: 2.1 Antibiotic Interpretation [...] ResistantNOMS HealthcareInterpretation and review of laboratory resultsAbnormal [facility] HealthcareANAEROBIC CULTUREon 52-01-1311IAOTIMTRT CULTURE Anaerobic Culture [facility] HealthcareANAEROBIC CULTURESpecimen has been received and testing has been initiated.[facility] HealthcareANAEROBIC CULTUREOrganism: Fusobacterium nucleatum : [facility] HealthcareANAEROBIC CULTURE*ABNORMAL*[facility] HealthcareANAEROBIC CULTUREScant growthNONY HealthcareANAEROBIC CULTUREStudies at AFFiRiS have confirmed theNOMS HealthcareANAEROBIC CULTUREobservations of others who have demonstrated thatNONY HealthcareANAEROBIC CULTUREFusobacterium species are routinely susceptible toNOMS HealthcareANAEROBIC CULTURECefoxitin, Chloramphenicol, Clindamycin, MetronidazoleNOMS HealthcareANAEROBIC CULTUREand Penicillin.[facility] HealthcareANAEROBIC CULTUREFusobacterium nucleatumNONY HealthcareANAEROBIC CULTURE O:FUSNUC Isolated [facility] HospitalNo Panel Informationon 91-24-0690MXVDPYN CULTUREGrowth observed. Further testing to rule out possible pathogen(s)[facility] HealthcareAEROBIC CULTURE NOMSaint Joseph Health CenterRIGHT MAXILLARY SINUS (SURGICAL SPECIMEN) [facility] CenterLon [facility]2025L Specimen: [id number] Received: 03/08/25 Status: TAURUS Hernandezirene Num: [id number] Spec Type: Surgical Subm Dr: JACKY BRANDON MD Tissues: A Sinus Contents/Biopsy (RIGHT SINUS CONTENTS) B Turbinates (RIGHT MIDDLE TURBINATE) Procedures: HE/2, Gross/Micro L4, Level 1 Gross Age/ Patient Sex Location Account Attending Physician Kim Hill 54/F LABELL [id number] JACKY BRANDON MD SPEC NUM: [id number] RECD: 03/08/25 STATUS: TAURUS ROSELYN NUM: [id number] ALONSO: 03/08/[address]: JACKY BRANDON MD ENTERED: 03/08/25 [facility] DR: Nick,Lab SPEC TYPE: Surgical DEPT: FERNANDO ELLINGTON ENTERED BY: [id number] RECV BY: [id number] ORDERED: HE/2, Gross/Micro L4, Level 1 Gross [...] submitted in a single cassette. (1, ns, VS03-813 A) J Part B is received in formalin labeled with the patients date of , and Sergio, right middle turbinate is a meredith-pink and glistening sheet of mucosal lined tissue, 1.5 x 0.7 x 0.5 cm. Serial sections reveal owen-meredith to pink, friable to crisp, glistening cut surfaces. The specimen is entirely submitted in a single cassette. (1, ns, BS25- 442 B) Specimen: [id number] Received: 03/08/25 Status: TAURUS Roselyn Num: [id number] Spec Type: Surgical Subm Dr: JACKY BRANDON MD Tissues: A Sinus Contents/Biopsy (RIGHT SINUS CONTENTS) B Turbinates (RIGHT MIDDLE TURBINATE) Procedures: HE/2, Gross/Micro L4, Level 1 Gross Patient: Kim Hill [id number] (Continued) Specimen: [id number] Received: 03/08/25 (Continued) Signed (signature on file) Paresh Reddy JR, MD 03/09/25 125 Specimen: [id number] Received: 03/08/25 Status: TAURUS Roselyn Num: [id number] Spec Type: Surgical Subm Dr: JACKY BRANDON MD Tissues: A Sinus Contents/Biopsy (RIGHT SINUS CONTENTS) B Turbinates (RIGHT MIDDLE TURBINATE) Procedures: HE/2, Gross/Micro L4, Level 1 Gross Patient: Kim Hill [id number] (Continued) Specimen: [id number] Received: 03/08/25 (Continued) Microscopic Description A?B. Microscopic examination was completed. CPT Codes 71172 x 2 Specimen: [id number] Received: 03/08/25 Status: TAURUS Yu Num: [id number] Spec Type: Surgical Subm Dr: JACKY BRANDON MD Tissues: A Sinus Contents/Biopsy (RIGHT SINUS CONTENTS) B Turbinates (RIGHT MIDDLE TURBINATE) Procedures: HE/2, Gross/Micro L4, Level 1 Gross Patient: Kim Hill [id number] (Continued) Signed (signature on file) Paresh Reddy JR, MD 03/09/[address] [place] [address] Physician GroupALL CBC WITH AUTO DIFFon 15-45-9652JLOJEHNAU ABSOLUTE [id number] HealthcareBasophils/100 WBC (Bld)0.3 %0.2 - 2.0 %NOM HealthcareEosinophils/100 WBC (Bld)3.5 %0.9 - 7.0 %[facility] Erythrocyte distribution width (RBC) [Ratio]11.9 %11.0 - 15.0 %[facility] Hematocrit (Bld) [Volume fraction]36.9 %36.0 - 48.0 %[facility] HospitalHemoglobin (Bld) [Mass/Vol]12.2 g/dL12.0 - 16.0 g/dLNONY HealthcareIMMATURE GRANULOCYTES ABS AUTO0.03NOMS HealthcareImmature granulocytes/100 WBC (Bld)0.3 %0.0 - 0.5 % [facility] HospitalInterpretation and review of laboratory resultsAbnormalNONY HealthcareLYMPHOCYTES ABSOLUTE AUTO3.7NOMS HealthcareLymphocytes/100 WBC (Bld) 41.2 %20.5 - 60.0 %[facility] HospitalMCH (RBC) [Entitic mass]32.9 pg26.7 - 34.0 pg [facility] HospitalMCHC (RBC) [Mass/Vol]33.1 g/dL29.9 - 35.2 g/dLSaint John's Saint Francis HospitalMCV (RBC) [Entitic vol]99.5 rVLblp73.0 - 99.0 fLNONY HealthcareMONOCYTES ABSOLUTE AUTO0.6NOMS HealthcareMonocytes/100 WBC (Bld)6.3 %1.7 - 12.0 %[facility] NEUTROPHILS ABSOLUTE AUTO4.4NOMS HealthcareNeutrophils/100 WBC (Bld)48.4 %43.0 - 75.0 %[facility] HealthcarePlatelet mean volume (Bld) [Entitic vol]9.7 fL9.5 - 13.5 fL [facility] HealthcareTBH EO #0.3NOMS HealthcareTBH [id number] HealthcareTBH RBC3.71Low [facility] HealthcareTB WBC9.1NOMS HealthcareCLINISYNCNOMS HealthcareECG 12-LEADon 11-71-3277[place] [address] Electrocardiograph Report Signed Patient: KIM HILL MR#: [id number] : 1970 Acct:[id number] Age/Sex: 54 / F ADM Date: 03/02/25 Loc: PST Attending Dr: Jacky Brandon M.D. Ordering Physician: Jacky Brandon M.D. Date of Service: 03/02/25 Procedure(s): ECG 12 lead Accession Number(s): [id number] cc: [facility] Test Date: 2025-03-02 Pat Name: KIM HILL Department: Room: - Gender: Female [employer]: : 1970 Requested By: JACKY BRANDON Order Number: [id number] Reading MD: RENE COSTELLO M.D. Measurements Intervals [place] Rate: 80 P: 35 TN: 158 QRS: 11 QRSD: 91 T: 42 [...] COSTELLO Signed By: 03/02/251844 DD/ 5 TD/TT: Casing Inspector:TBHRadiology, Radiologist, - 03/02/2025 [facility] [place] [id number] Electrocardiograph Report Signed Patient: KIM HILL MR#: [id number] : 1970 Acct:[id number] Age/Sex: 54 / F ADM Date: 03/02/25 Loc: PST Attending Dr: Jacky Brandon M.D. Ordering Physician: Jacky Brandon M.D. Date of Service: 03/02/25 Procedure(s): ECG 12 lead Accession Number(s): [id number] cc: [facility] Test Date: 2025-03-02 Pat Name: KIM HILL Department: Room: - Gender: Female [employer] Officer: : 1970 Requested By: JACKY BRANDON Order Number: [id number] Reading MD: RENE COSTELLO M.D. Measurements Intervals [place] Rate: 80 P: 35 TN: 158 QRS: 11 QRSD: 91 T: 42 [...] Signed By: 03/02/25 184 DD/ 0826 TD/TT: Casing Inspector: DACIA HealthcareRadiology Study observation (narrative)NOM HealthcareECG 12-LEAD Ordered By: Radiologist Radiology on 84-51-1012BVZM [facility] Work Phone: xr CHEST 2Von 74-92-1822[place], [place] [address] XRay Report Signed Patient: KIM HILL MR#: [id number] : 1970 Acct:[id number] Age/Sex: 54 / F ADM Date: 03/02/25 Loc: PST Attending Dr: Jacky Brandon M.D. Ordering Physician: Jacky Brandon M.D. Date of Service: 03/02/25 Procedure(s): XR chest 2V Accession Number(s): [id number] cc: EISENSTEIN,Jacky Jackson M.D. The [address] [address] Patient Name: KIM HILL MRN: [facility]:[id number] date: 1970 Sex: F Assigned Patient Location: [facility] Current Patient Location: [facility] Accession/Order Number: [id number] Exam Date: 03/02/2025 08:50 Report Date: 03/02/2025 [...] Alva M.D. 03/02/2025 9:02 AM Dictation Location: [place] [address] Electronically authenticated by: [id number] Y Date: 03/02/2025 09:02 Dictated By: Tate Alva M.D. Signed By: 03/02/25904 DD/ 1 TD/TT: Casing Inspector:JEANadiology, Radiologist, - 03/02/2025 [place] [address] XRay Report Signed Patient: KIM HILL MR#: [id number] : 1970 Acct:[id number] Age/Sex: 54 / F ADM Date: 03/02/25 Loc: [facility] Attending Dr: Jacky Brandon M.D. Ordering Physician: Jacky Brandon M.D. Date of Service: 03/02/25 Procedure(s): XR chest 2V Accession Number(s): [id number] cc: ABY MARK Hilary M.D. The [address] [address] Patient Name: KIM HILL MRN: [id number] date: 1970 Sex: F Assigned Patient Location: [facility] Current Patient Location: [facility] Accession/Order Number: [id number] Exam Date: 03/02/2025 08:50 Report Date: 03/02/2025 [...] Alva M.D. 03/02/2025 9:02 AM Dictation Location: [place] [address] Electronically authenticated by: [id number] Y Date: 03/02/2025 09:02 Dictated By: Tate Alva M.D. Signed By: 03/02/25904 DD/ 1 TD/TT: Casing Inspector: DAC[facility] HealthcareRadiology Study observation (narrative)NOM HealthcareXR CHEST 2V Ordered By: Radiologist Radiology on 55-92-9639QOVN [facility] Work Phone: ct SINUS WO CONon [phone] [address] CT Scan Report Signed Patient: KIM HILL MR#: [id number] : 1970 Acct:[id number] Age/Sex: 54 / F ADM Date: 02/15/25 Loc: CT Attending Dr: Jacky Brandon M.D. Ordering Physician: Jacky Brandon M.D. Date of Service: 02/15/25 Procedure(s): CT sinus wo con Accession Number(s): [id number] cc: ABY MARK [place] [id number] Patient Name: KIM HILL MRN: [id number] date: 1970 Sex: F Assigned Patient Location: CT Current Patient Location: Accession/Order Number: [id number] Exam Date: 02/15/2025 15:20 Report Date: 02/16/2025 [...] Mckee M.D. 02/16/2025 8:13 AM Dictation Location: [place] [address] Electronically authenticated by: [id number] Y Date: 02/16/2025 08:13 Dictated By: Shalonda Mckee M.D. Signed By: 02/16/25815 DD/ 2 TD/TT: Casing Inspector:TBHRadiology, Radiologist, - 02/16/2025 [place] [address] CT Scan Report Signed Patient: KIM HILL MR#: [id number] : 1970 Acct:[id number] Age/Sex: 54 / F ADM Date: 02/15/25 Loc: CT Attending Dr: Jacky Brandon M.D. Ordering Physician: Jacky Brandon M.D. Date of Service: 02/15/25 Procedure(s): CT sinus wo con Accession Number(s): [id number] cc: ABY MARK [place] [address] Patient Name: KIM HILL MRN: [id number] date: 1970 Sex: F Assigned Patient Location: CT Current Patient Location: Accession/Order Number: [id number] Exam Date: 02/15/2025 15:20 Report Date: 02/16/2025 [...] Mckee M.D. 02/16/2025 8:13 AM Dictation Location: [place] [address] Electronically authenticated by: [id number] Y Date: 02/16/2025 08:13 Dictated By: Shalonda Mckee M.D. Signed By: 02/16/25815 DD/ 2 TD/TT: Casing Inspector: DACIA HealthcareRadiology Study observation (narrative)NOM HealthcareCT SINUS WO CONOrdered By: Radiologist Radiology on 62-01-0107NESX [facility] Work Phone: cNPNon [phone] (NIQ) KIM HILL ([id number]) 1970 F Date Time Provider Department 06/22/24 [...] instructing patient to call office or check Brightpearl messages for details. Ness Corbett RN June [...] drop [M21.371] Order(s):CT LUMBAR SPINE WO IVCON [1353110] Order #: [id number] FUTURE EMG(NEURO/NI) [[id number]] Order #: [id number]: 1 FUTURE XR LUMBAR MOTION 4V AP/LAT/ FLEX/EXT [[id number]] Order #: [id number] FUTURE Prescriptions as of 06/23/2024 - gabapentin [...] mg by mouth daily at bedtime. - skepymuwnok-znwhjljgm-uadgxfyb (TRELEGY ELLIPTA) 100-62.5-25 mcg inhalation powder Inhale [...] (None) Encounter Status:Closed by KENAN GODOY on 06/23/24[facility] 82-59-9145CRVVEzkwqn Visit (SPNSMN) KIM HILL ([id number]) 1970 F Date Time Provider Department 06/09/24 4:00 PM OLS SARMIENTO JOSEMN During your visit today, we recorded the following information about you: Pulse Blood pressure Weight Height 92/minute 104/52 98 kg 1.6 m Los Sarmiento MD 06/16/2024 5:55 PM Signed Rescheduled, no charge Referring Provider: ABY MARK [[id number]] Allergies As of Date: 06/09/2024 Noted Allergy [...] mg by mouth daily at bedtime. - fejgmzzhoow-odpwidvya-rrhllwyp (TRELEGY ELLIPTA) 100-62.5-25 mcg inhalation powder Inhale [...] (None) Encounter Status:Closed by LOS SARMIENTO on 06/16/24[facility] + [facility]/on 39-30-1656EMA Lumbar Spine w/o + w/HISTORY: Chronic back [...] signed by Justice Lucas on 07/31/2022 0915NormalNortabrazo scottsdale campusn [facility] SpecialistAutomated erythrocytes count in urine sediment (number/area)Ordered By: Paresh Tian on 04-42-9799JKJ Auto (Urine sed) [#/Area]1-2 [HPF]0-4Fire[facility] Regional Medical CenterAutomated leukocytes count in urine sediment (number/area)Ordered By: Paresh Tian on 31-19-1053BPU Auto (Urine sed) [#/Area]20-49 [HPF]0-4FUniversity Hospitals Lake West Medical CenterBasophils Auto (Bld) [#/Vol]Ordered By: Paresh Tian on 43-18-7384Wmyagvvhp (Bld) [#/Vol]0.0 10*3/uL0.0-0.2FUniversity Hospitals Lake West Medical CenterBasophils/100 WBC Auto (Bld)Ordered By: Paresh Tian on 93-36-8107Humjdpuzb/100 WBC (Bld)0.4 %. [facility] PrebleBilirubin Test strip Ql (U)Ordered By: Paresh Tian on 36-86-1288Qmpqlvzmy Ql (U)NegativeNegativeKettering Health PrebleC reactive protein [Mass/volume] in Serum or PlasmaOrdered By: Paresh Tian on 62-90-9999KVJ [Mass/Vol]0.8 mg/dL0.0-1.0[facility] PrebleColor Auto (U)Ordered By: Paresh Tian on 18-27-4094Enxjz (U)Yellow YellowKettering Health PrebleCreatinine and Glomerular filtration rate.predicted panel (S/P/Bld)Ordered By: Paresh Tian on 17-62-7673Sgacnifiuc [Mass/Vol]0.74 mg/dL0.44-1.03[facility] PrebleEosinophils Auto (Bld) [#/Vol]Ordered By: Paresh Tian on 24-46-3867Zegeagoarbe (Bld) [#/Vol] 0.1 10*3/uL0.0-0.45[facility] PrebleEosinophils/100 WBC Auto (Bld)Ordered By: Paresh Tian on 56-17-3249Mvinvetpphs/100 WBC (Bld)1.1 %. [facility] PrebleErythrocyte distribution width Auto (RBC) [Ratio]Ordered By: Paresh Tian on 57-27-6390Qxfghecxtvt distribution width (RBC) [Ratio]13.0 %11.9-15.3Firelands Regional Medical CenterErythrocyte sedimentation rate by Photometric methodOrdered By: Paresh Tian on 07-16-2022 ESR Photometric method (Bld) [Velocity]45 mm/hr0-29[facility] PrebleEstimated glomerular filtration rate (GFR) non- AmericanOrdered By: Paresh Tian on 75-62-4855WQT/1.73 sq M.predicted among non-blacks MDRD (S/P/Bld) [Vol rate/Area]> 60 mL/MinKettering Health PrebleHematocrit Auto (Bld) [Volume fraction]Ordered By: Paresh Tian on 79-56-3824Dysxysrcph (Bld) [Volume fraction]45.3 %34.0-46.4FUniversity Hospitals Lake West Medical Center Hemoglobin [Mass/volume] in BloodOrdered By: Paresh Tian on 07-16-2022 Hemoglobin (Bld) [Mass/Vol]15.2 g/dL11.8-15.4FUniversity Hospitals Lake West Medical Center Ketones Auto test strip (U) [Mass/Vol]Ordered By: Paresh Tian on 07-16-2022 Ketones (U) [Mass/Vol]NegativeNegativeKettering Health Preble Laboratory - UrinalysisOrdered By: Paresh Tian on 22-60-1171Qkvblaw casts LM Ql (Urine sed)0-8 [LPF]0-8[facility] PrebleLeukocytes [#/volume] corrected for nucleated erythrocytes in Blood by Automated counOrdered By: Paresh Tian on 75-16-3026YYQ corrected for nucl RBC Auto (Bld) [#/Vol]10.4 10*3/uL3.8-11.6FUniversity Hospitals Lake West Medical CenterLymphocytes Auto (Bld) [#/Vol] Ordered By: Paresh Tian on 83-60-3199Kwmzsipbkvd (Bld) [#/Vol]3.7 10*3/uL 1.00-4.8[facility] PrebleLymphocytes/100 WBC Auto (Bld)Ordered By: Paresh Tian on 25-19-9648Mrdugrlrpze/100 WBC (Bld)35.0 %.[facility] Auto (RBC) [Entitic mass]Ordered By: Paresh Tian on 50-62-6349LEP (RBC) [Entitic mass]33.8 pg24.7-34.3FSouthview Medical Center Auto (RBC) [Mass/Vol]Ordered By: Paresh Tian on 21-87-7634QZCZ (RBC) [Mass/Vol]33.6 g/dL32.0-35.0[facility] PrebleMCV Auto (RBC) [Entitic vol]Ordered By: Paresh Tian on 67-72-7078NUH (RBC) [Entitic vol]100.6 rR50-888AybibrvzoKettering Health PrebleMitotic spindle apparatus Ab [Titer] in Serum or Plasma by ImmunofluorescenceOrdered By: Paresh Tian on 86-23-3870Ajziylt spindle apparatus Ab IF [Titer]1:160.[facility] PrebleComment on above:ICAP nomenclature: AC-25,26Monocytes Auto (Bld) [#/Vol]Ordered By: Paresh Tian on 89-83-6319Szpwccgka (Bld) [#/Vol]0.7 10*3/uL0.0-0.8[facility] PrebleMonocytes/100 WBC Auto (Bld) Ordered By: Paresh Tian on 28-35-3849Wqvnyvxmc/100 WBC (Bld)6.8 %.[facility] PrebleNeutrophils Auto (Bld) [#/Vol]Ordered By: Paresh Tian on 76-89-1166Ufezairjiix (Bld) [#/Vol]5.9 10*3/uL1.8-7.7FUniversity Hospitals Lake West Medical CenterNeutrophils/100 WBC Auto (Bld)Ordered By: Paresh Tian on 32-54-9623Rqpxnkgubnf/100 WBC (Bld)56.7 %.[facility] Nitrite Test strip Ql (U)Ordered By: Paresh Tian on 09-23-2802Dlcrxnt Ql (U) NegativeNegativeKettering Health PrebleNo Panel InformationOrdered By: Paresh Tian on 47-22-0118Opwe-Nuclear Antibody Comment 2See comment. [facility] PrebleComment on above:For more information about Hep-2 cell patterns useANApatterns.org, the official website for the [facility] rnahighlands behavioral health systemConsensus on Antinuclear Antibody (ASTER) Patterns (ICAP). A positive ASTER result may occur in healthy individuals (lowtiter) or be associated with a variety of diseases. Seeinterpretation chart which is not all inclusive:Pattern Antigen Detected Suggested Disease Association Homogeneous DNA(ds,ss), SLE - High titers Nucleosomes, Histones Drug-induced SLE Speckled Sm, BUSINESS CONTINUITY PLANNER, SCL-70, SLE,MCTD,PSS (diffuse form), SS-A/SS-B Sjogrens Nucleolar SCL-70, PM-1/SCL Hightiters Scleroderma, PM/DM Centromere Centro mere PSS (limited form) w/Crest syndrome variable Nuclear Dot Sp100,t73-gxdqzs Primary Biliary Cirrhosis Nuclear GP210, Primary Biliary CirrhosisMembrane kailyn A,B,C Performed at: [email or web address] [address] [id number] Director: Collin Rodriguez PhD, Phone: [phone] Estimated GFR ()> 60 mL/MinKettering Health Preble Comment on above:GFR estimated reference range: According to KDOQI guidelines, <60 ml/min/1.73m2 is sufficient todiagnose a patient with chronic kidney disease.Pharmacy Creatinine Clearance (ChemN/[facility] Total Complement (CH50)>60 U/mL>41[facility] PrebleComment on above:Age Male Female 1 - 30 [...] to determine out of range values.Performed at: [email or web address] [address] [id number] Director: Collin Rodriguez PhD, Phone: [phone] erythrocytes [Presence] in Blood by Automated countOrdered By: Paresh Tian on 34-75-0971Butpqtrep RBC Auto Ql (Bld)0.1 /100{WBC}0-0.5FUniversity Hospitals Lake West Medical CenterPlatelet mean volume Auto (Bld) [Entitic vol]Ordered By: Paresh Tian on 28-87-2556Goxbztyf mean volume (Bld) [Entitic vol]8.4 fL6.3-10.7 [facility] PreblePlatelets Auto (Bld) [#/Vol]Ordered By: Paresh Tian on 87-69-6661Mkyqkmwvo (Bld) [#/Vol]242 10*3/eO874-024RodspmmfzKettering Health PrebleProtein Auto test strip (U) [Mass/Vol]Ordered By: Paresh Tian on 12-63-5211Onsvzqi (U) [Mass/Vol]NegativeNegativeKettering Health PrebleRBC Auto (Bld) [#/Vol]Ordered By: Paresh Tian on 28-70-9973KUH (Bld) [#/Vol]4.50 10*6/uL3.60-5.00Clinton Memorial Hospitalerum homogeneous pattern antinuclear antibody (ASTER) titerOrdered By: Paresh Tian on 07-16-2022 Homogenous nuclear Ab pattern (S) [Titer]N/AFUniversity Hospitals Lake West Medical Center Serum nuclear antibody titerOrdered By: Paresh Tian on 61-89-1172Olrrrmy Ab (S) [Titer]Positive.[facility] PrebleComment on above:Negative <1:80 Borderline 1:80 Positive >1:80Serum or plasma complement C3 measurement (mass/volume)Ordered By: Paresh Tian on 75-52-7111Pzswgaiuxu C3 [Mass/Vol]197 mg/qC80-309ZykgbkcmnKettering Health PrebleComment on above:Performed at: - LabBradley Ville [id number] Director: Collin Rodriguez PhD, Phone: [phone] or plasma complement C4 measurement (mass/volume)Ordered By: Paresh Tian on 37-71-4253Aezcgdffwx C4 [Mass/Vol]42 mg/mH82-89ClshziapuClinton Memorial Hospitalpecific gravity Auto test strip (U) [Rel density]Ordered By: Paresh Tian on 76-85-3375Nohmdggh gravity (U) [Rel density]1.0181.001-1.030Cl[facility] Memorial Hospitalquamous epithelial cells detection in urine sediment by light microscopyOrdered By: Paresh Tian on 39-00-4005Fsjekbbeoi cells.squamous LM Ql (Urine sed)0-1 [HPF]0-2FUniversity Hospitals Lake West Medical CenterUrine bacteria detection by automated methodOrdered By: Paresh Tian on 05-14-1980Gohtlaym Auto Ql (U)4+None SeenKettering Health PrebleUrine clarity by refractometry automatedOrdered By: Paresh Tian on 73-19-9643Shbtoso Refractometry automated (U)ClearClearFUniversity Hospitals Lake West Medical CenterUrine culture routineOrdered By: Paresh Tian on 07-16-2022 Bacteria identified Cx Nom (U)Escherichia coliKettering Health Preble Urine glucose measurement by automated test strip (mass/volume)Ordered By: Paresh Tian on 08-00-5061Witfelo Auto test strip (U) [Mass/Vol]Normal mg/dL NormalKettering Health PrebleUrine hemoglobin detection by automated test stripOrdered By: Paresh Tian on 61-89-7986Kbowipheyd Auto test strip Ql (U)NegativeNegativeKettering Health PrebleUrine leukocyte esterase detection by automated test stripOrdered By: Paresh Tian on 07-16-2022 Leukocyte esterase Auto test strip Ql (U)3+NegativeKettering Health PrebleUrobilinogen Auto test strip (U) [Mass/Vol]Ordered By: Paresh Tian on 43-79-9428Oqsqmqetvazf (U) [Mass/Vol]Normal mg/dLNormalKettering Health PrebleWBC Auto (Bld) [#/Vol]Ordered By: Paresh Tian on 75-92-2679NQF (Bld) [#/Vol]10.4 10*3/uL3.8-11.6FUniversity Hospitals Lake West Medical CenterpH Auto test strip (U)Ordered By: Paresh Tian on 32-80-5340mT (U)6.5 [pH]5.0-9.0[facility] PrebleXR HIPS ZEINA 3_4V WO PELVISon 84-34-1580OW HIPS ZEINA 3_4V WO PELVISEXAMINATION: XR HIPS [...] Electronically authenticated by: DASHA KHAN Date: 2022-05-15 07:49NormUniversity Hospitals TriPoint Medical CenterCovid-19 PCR ([facility])on 35-82-9488GGYL-CoV-2 (COVID-19) RNA AMBERLY+probe Ql (Unsp spec)Not detectedNormalNOT DETECTEDThe St[facility] Comment on above:Result Comment: This test is not yet approved or cleared by the [place] FDA. When there are no FDA-approved or cleared tests available, and other criteria are met, FDA can make tests available under an emergency access mechanism called an Emergency Use Authorization (EUA). The EUA for this test is supported by the [place] [employer] of Health and Human Service's (HHS's) declaration [...] and symptoms consistent with SARS-CoV-2.Performed By: #### [facility] #### [facility] [address] [place] [address] Dr. Narendra Li-19 Positive/NegativeOrdered By: Baljinder Rausch on 99-51-5561THOV-CoV-2 (COVID-19) N gene AMBERLY+probe Ql (Resp)NegativeNegative [facility] PrebleComment on above:Testing for SARS-CoV-2 by RT-PCR This test was developed and its performance characteristics determined by [employer] ([employer]) and validated at the [facility]. This test has not been FDA cleared [...] authorization is terminated or revoked sooner.COVID-19 Positive/Negativeon 28-06-9900WNZSX-19 Positive/NegativeNegativeNegativeUniversity Hospitals Ahuja Medical Center CtrComment on above:Testing for SARS-CoV-2 by RT-PCRThis test was developed and its performance characteristics determined by [employer] ([employer]) and validated at the [facility]. This test has not been FDA cleared [...] or revoked sooner.Otheron 05-20-2020 Coronavirus 2019 PCR InterpN/AFMercy Health St. Charles Hospital CtrAutomated basophil % on 13-65-5826Tcidqcuug/100 WBC (Bld)0.5 %[facility] CtrAutomated basophil counton 78-36-4090Odqshghru (Bld) [#/Vol]0.0 10*3/uL0.0-0.2FMercy Health St. Charles Hospital CtrAutomated blood lymphocyte count (number/volume)on 18-51-1443Mfothqxbild (Bld) [#/Vol]2.8 10*3/uL1.00-4.8[facility] CtrAutomated blood lymphocyte count as percentage of total leukocyteson 73-66-8908Fmqjezqqjou/100 WBC (Bld)35.0 %[facility] CtrAutomated blood monocyte counton 36-25-6142Myasafuop (Bld) [#/Vol]0.6 10*3/uL0.0-0.8 [facility] CtrAutomated blood platelet count (count/volume)on 65-27-4155Bvozzrawx (Bld) [#/Vol]225 10*3/kR277-491UkyohslbtUniversity Hospitals Ahuja Medical Center CtrAutomated blood platelet mean volume measurementon 36-85-4531Lirqefkp mean volume (Bld) [Entitic vol]8.2 fL6.3-10.7FMercy Health St. Charles Hospital CtrAutomated eosinophil %on 01-85-2640Ymxrpnpmsmv/100 WBC (Bld)1.5 %[facility] CtrAutomated eosinophil counton 08-31-9232Ojszhveowgb (Bld) [#/Vol]0.1 10*3/uL0.0-0.45[facility] CtrAutomated erythrocyte distribution width ratioon 66-11-3302Oxsmxuvedob distribution width (RBC) [Ratio]12.3 % 11.9-15.3FMercy Health St. Charles Hospital CtrAutomated erythrocyte mean corpuscular hemoglobin (mass per erythrocyte)on 87-26-4661FQT (RBC) [Entitic mass]35.2 pg 24.7-34.3FMercy Health St. Charles Hospital CtrAutomated erythrocyte mean corpuscular hemoglobin concentration measurement (mass/volon 50-74-2258TSQM (RBC) [Mass/Vol] 34.2 g/dL32.0-35.0[facility] CtrAutomated erythrocyte mean corpuscular volumeon 60-19-8019UPY (RBC) [Entitic vol]102.9 wT36-121NycruzeadUniversity Hospitals Ahuja Medical Center CtrAutomated monocyte %on 75-57-8369Wiwdobnnu/100 WBC (Bld)7.0 %[facility] CtrAutomated neutrophil %on 05-14-2020 Neutrophils/100 WBC (Bld)56.0 %[facility] CtrBlood erythrocytes automated count (number/volume)on 43-52-5115WNP (Bld) [#/Vol]4.08 10*6/uL 3.60-5.00[facility] CtrBlood hemoglobin measurement (mass/volume)on 62-54-9723Jqsudomvim (Bld) [Mass/Vol]14.3 g/dL11.8-15.4FMercy Health Clermont HospitalBlood leukocytes automated count (number/volume)on 96-68-2343UZZ (Bld) [#/Vol]7.9 10*3/uL4.5-11.0[facility] Blood neutrophil count by automated method (number/volume)on 05-14-2020 Neutrophils (Bld) [#/Vol]4.4 10*3/uL1.8-7.7FMercy Health Clermont Hospital Estimated glomerular filtration rate (GFR) non- Americanon 05-14-2020 GFR/1.73 sq M predicted among non-blacks MDRD (S/P/Bld) [Vol rate/Area] mL/min/{1.73_m2}[facility] CtrHematocrit [Volume Fraction] of Blood by Automated counton 46-90-8056Sxxivnuseb (Bld) [Volume fraction]41.9 % 34.0-46.4FMercy Health St. Charles Hospital CtrOtheron 64-91-6768FZL/1.73 sq M.predicted MDRD (S/P/Bld) [Vol rate/Area]mL/min/{1.73_m2}[facility] Comment on above:GFR estimated reference range: According to KDOQI guidelines, <60 ml/min/1.73m2 is sufficient todiagnose a patient with chronic kidney disease.Nucleated RBC/100 WBC (Bld) [Ratio]0.1 %0-0.5FMercy Health St. Charles Hospital CtrPharmacy Creatinine Clearance (ChemN/AFMercy Health St. Charles Hospital CtrSerum or plasma calcium measurement (mass/volume)on 07-76-6572Rkrxuws [Mass/Vol]10.1 mg/dL8.2-10.2FMercy Health St. Charles Hospital CtrSerum or plasma chloride measurement (moles/volume)on 17-83-4461Ehcjcoaz [Moles/Vol]101 mmol/G75-737TrgdzlykeUniversity Hospitals Ahuja Medical Center CtrSerum or plasma creatinine measurement with calculation of estimated glomerular filtron 61-10-4561Hfgjansrtz [Mass/Vol]0.60 mg/dL0.44-1.03 [facility] CtrSerum or plasma glucose measurement (mass/volume) on 05-23-2221Vvqwkao [Mass/Vol]94 mg/mG96-445WywcweasqOhiohealth Grady Memorial Hospital Comment on above:ADA recommended reference rangeRandom Glucose Reference Range is dependent on time and content of last meal. Glucose of more than 200 mg/dL in a nonstressed, ambulatory subject supports the diagnosisof Diabetes Mellitus. Serum or plasma potassium measurement (moles/volume)on 72-22-7744Qtzzrlbnr [Moles/Vol]4.3 mmol/L3.5-5.1FMercy Health St. Charles Hospital CtrSerum or plasma sodium measurement (moles/volume)on 39-04-7657Kdqvaa [Moles/Vol]140 mmol/M617-152 [facility] CtrSerum or plasma total carbon dioxide measurement (moles/volume)on 60-52-3316MR5 [Moles/Vol]27.2 mmol/L22.0-30.0[facility] CtrSerum or plasma urea nitrogen measurement (mass/volume)on 05-14-2020 Urea nitrogen [Mass/Vol]7 mg/dL9-23[facility] Vital Signs Date TimeVital SignValuePerforming PxigetvaeQkhvptgn59-73-4292 11:49-0400Body dklean131 cmJacky Brandon MD Work Phone: [facility] HospitalSiqxagkgul02-83-0669 11:49-0400Body mass index (BMI) [Ratio]37.91 kg/a1LedgzvJacky Brandon MD Work Phone: [facility] HospitalOcivltcroi39-95-7343 11:49-0400Body httidd01.07 kgJacky Brandon MD Work Phone: [facility] HospitalItgihkwipb53-45-8653 11:49-0400Diastolic blood rwmdalqb80 mm[Hg]Jacky Brandon MD Work Phone: [facility] HospitalGitxtyzugk70-60-6805 11:49-0400Heart ftpd469 /min Jacky Brandon MD Work Phone: [phone] [place], [place] 4050610-17-2025 11:49-0400Systolic blood ojkteydw149 mm[Hg]Jacky Brandon MD Work Phone: [phone] [place], [place] 4050609-29-2025 15:08-0400Body cm Jacky Brandon MD Work Phone: [phone])[facility] [place], [place] [address]Mxmnmocklc88-63-4718 15:08-0400Body mass index (BMI) [Ratio]37.91 kg/a0EnhrajJacky Brandon MD Work Phone: [phone])[address] [place], [place] 4050609-29-2025 15:08-0400Body .07 kgJacky Brandon MD Work Phone: [phone])[address] [place], [place] 4050609-29-2025 15:08-0400Diastolic blood pugfhabw48 mm[Hg]Jacky Brandon MD Work Phone: [phone] [place], [place] 4050609-29-2025 15:08-0400Heart mfqi510 /min Jacky Brandon MD Work Phone: [phone])[address] [place], [place] 4050609-29-2025 15:08-0400Systolic blood afreqppv52 mm[Hg]Jacky Brandon MD Work Phone: [phone] [place], [place] 4050607-22-2025 15:03-0400Body dsyowe103 cm Jacky Brandon MD Work Phone: [phone] [place], [place] [address]Ceiddoodaw26-72-4292 15:03-0400Body mass index (BMI) [Ratio]41.1 kg/k2NiruykJacky Brandon MD Work Phone: [phone])[address] [place], [place] 4050607-22-2025 15:03-0400Body tugtus914.23 kgJacky Brandon MD Work Phone: 1(468)[address] [place], [place] 4050607-22-2025 15:03-0400Diastolic blood esoqgkqq61 mm[Hg]Jacky Brandon MD Work Phone: 1(336)[address] [place], [place] 4050607-22-2025 15:03-0400Heart rate96 /min Jacky Brandon MD Work Phone: [facility] HospitalWnwpthjgco73-15-2089 15:03-0400Systolic blood jyqabgmc344 mm[Hg]Jacky Brandon MD Work Phone: [facility] HospitalDcmibsvkfa83-28-4086 14:59-0400Body qpgucv743 cm Los Sarmiento MD Work Phone: [phone]04-29-2025 14:59-0400Body mass index (BMI) [Ratio]38.14 kg/p2KietdymLos Sarmiento MD Work Phone: [phone] [facility]04-29[facility]25 14:59-0400Body niunll73.65 kgLos Sarmiento MD Work Phone: [facility]04-29-2025 14:59-0400Diastolic blood dkxjpeor52 mm[Hg]Los Sarmiento MD Work Phone: [facility]04-29-2025 14:59-0400Heart rate96 /min Los Sarmiento MD Work Phone: [phone]04-29-2025 14:59-0400Respiratory rate 16 /minLos Sarmiento MD Work Phone: [phone]04-29-2025 14:59-2561HcA5% (BldA) [Mass fraction]98 %Los Sarmiento MD Work Phone: [phone]04-29-2025 14:59-0400Systolic blood oaqfptlq678 mm[Hg]Los Sarmiento MD Work Phone: [facility]03-20-2023 16:00-0400Body inttbb943.02 cmDeKyruus BladeBoardEvals Other noDEUS Other 03-20-2023 16:00-0400Body mass index (BMI) [Ratio] 40.56 kg/d2Mrbxmlc Blades Other noDEUS Other 03-20-2023 16:00-0400Body vmyrhc499.87 kgDeborblade Blades Other nort [employer] Other 36-87867990-12-2817 16:00-0400Diastolic blood qsmgurgi59 mm[Hg] Gina Blades Other noBriggo [employer] Other 40-89732081-30-5871 16:00-0400Systolic blood jiddyqwz116 mm[Hg] Gina Blades Other [facility] [employer] Other Encounters Encounter DateEncounter TypeCare ProviderFacilityStart: 03-16-2025 End: 32-77-9075Muadwcraghu Brandon MD Work Phone: [facility] OtolaryngologyStart: 03-16-2025 End: 79-99-8624Suplzlraghu Brandon MD Work Phone: [facility]olaryngologyStart: 03-16-2025 End: 69-80-8336Xplpxs outpatient visit 25 minutesJacky Brandon MD Work Phone: [facility] OtolaryngologyComment on above:Chronic maxillary sinusitis (Primary Dx); Foreign body in nose, initial encounterStart: 03-16-2025 End: 04-08-9362vwwlceowetTNBAKL H TIMMISNot AvailableStart: 03-08-2025 End: 84-16-5397Ytxxrpvpu Result EncounterJacky Brandon MD Work Phone: noms External Department UnsolicitedStart: 03-08-2025 End: 94-23-0785Jtutkyucv Result EncounterJacky Brandon MD Work Phone: noms External Department UnsolicitedStart: 03-08-2025 End: 38-70-6891bjfhacedqyOuwqta H Timmis [facility] Work Phone: Start: 03-08-2025 End: 00-00-9076Fyblgjlx ReferredJACKY BRANDON MD-LAB [facility] Start: 03-02-2025 End: 98-35-9649Rcfumemfy Result EncounterJacky Brandon MD Work Phone: noms External Department UnsolicitedStart: 03-02-2025 End: 30-22-8278Xholoxdcm Result EncounterJacky Brandon MD Work Phone: noms External Department UnsolicitedStart: 02-26-2025 End: 96-00-3647Dsjyzq outpatient visit 40 minutesJacky Brandon MD Work Phone: noms [place] OtolaryngologyComment on above:Chronic maxillary sinusitis (Primary Dx)Start: 02-26-2025 End: 60-56-4064enlzdvvpuwTAXVQS H TIMMISNot AvailableStart: 02-26-2025 End: 24-41-3243Hlhhir flowsheetJacky Brandon MD Work Phone: noms [place] OtolaryngologyStart: 02-26-2025 End: 58-74-4912Xfjwpq flowsheetJacky Brandon MD Work Phone: noms [place] OtolaryngologyStart: 02-16-2025 End: 91-69-0262Vjrmohejt Result EncounterJacky Brandon MD Work Phone: noms External Department UnsolicitedStart: 02-16-2025 End: 61-65-7555Liowwjncz Result EncounterJacky Brandon MD Work Phone: noms External Department UnsolicitedStart: 02-05-2025 End: 58-56-2042gzspojxtkzWaufupq Vytautas Giedleighton BUSTILLOFacility:[facility] Start: 12-19-2024 End: 68-58-5151Unmmhx outpatient new 45 minutesJacky Brandon MD Work Phone: NOMS CI ENTComment on above:Phantosmia (Primary Dx); Chronic maxillary sinusitis; History of MRSA infectionStart: 12-19-2024 End: 49-47-4023siqpfrpatxYSFXYN H TIMMISNot AvailableStart: 12-19-2024 End: 78-84-8122Nhbbiilety Brandon MD Work Phone: noms CI ENTStart: 12-19-2024 End: 57-63-4394Njbqeylety Brandon MD Work Phone: noms CI ENTStart: 09-26-2024 End: 38-58-1958Rcololt encounter Jeanette Sarmiento MD Work Phone: ygj InstituteComment on above:Spinal stenosis of cervical region (Primary Dx); Lumbar radiculopathy; Adhesive arachnoiditis (HCC)Start: 32-69-8626hlfrbuauadRWNHWDI E CLIFTON [facility] 08-28-2024 End: 11-10-2389jigvpxzrimSvrlyum Vytautas Giedraitis Facility:[facility] Start: 06-22-2024 End: 60-56-8423Btxrxdnxj encounterLos Sarmiento MD Work Phone: NeurologyComment on above:OrdersStart: 06-16-2024 End: 06-00-4803gyyicenyeuRyqxksuVeronica Sarmiento MD Work Phone: spine InstituteComment on above:Lumbar radiculopathy (Primary Dx)Start: 06-16-2024 End: 35-35-3224Tyrtlqkcgqsz consultation with Barb Sarmiento MD Work Phone: spine InstituteStart: 36-69-0007mbinsmaomsLJKCASYL EISENSTEINFacility:[facility]tart: 04-24-2024 End: 44-26-7289esgxbeywnkResmdvg Vytautas Giedraitis MDFacility:[facility] Start: 03-27-2024 End: 94-01-3576jddjhtxpzmVytfsuo Vytautas Giedraitis MDFacility:[facility] Start: 03-06-2024 End: 04-60-2020Zpkdo Michaela Sarmiento MD Work Phone: NeurologyStart: 94-83-6158rbcdkqsdyrIANVCJCSJNUX LAKSHMIPATHY .Facility:Q0Wbpdb: 10-13-2022 End: 33-88-2423zhgkpkahpwBEDILTKBHUUH LAKSHMIPATHY .Facility:E5Jwndu: 10-06-2022 End: 99-89-5041acveljclhvURGNRJDFPCUO LAKSHMIPATHY .Facility:N2Zggjs: 09-08-2022 End: 60-89-4364htdrtsldilPorbvau Blades Other [facility] Seen Other start: 42-17-8795Lrrvxnljs encounterPsychiatric Hospital at Vanderbilt NeurosurgeryStart: 09-01-2022 End: 82-81-2686wjedsebuhcYDSZEMZVBOCQ LAKSHMIPATHY .Facility:J8Hqedw: 08-17-2022 End: 82-64-0621Oftrjuk encounter procedureDO Roberto Roth Work Phone: [facility] Work Phone: Start: 08-17-2022 End: 10-97-9518oelpphmnyaTL Roberto Roth Work Phone: [facility] Work Phone: Start: 23-58-4084Atkqio outpatient new 45 minutes [facility] NeurosurgeryStart: 07-16-2022 End: 11-66-1431injmaurgjiET Roberto Roth Work Phone: [facility] Work Phone: Start: 07-16-2022 End: 67-74-1569Xvfnolf encounter procedureDO Roberto Roth Work Phone: [facility]-Lab [address] Work Phone: Start: 07-03-2022 End: 86-28-4747hbvsgjqwfaDZ Roberto Roth Work Phone: [facility] Work Phone: Start: 07-03-2022 End: 48-36-2735Lziccet encounter procedureDO Roberto Roth Work Phone: [facility]-XRay [facility] Work Phone: Start: 06-23-2022 End: 28-16-6168xhlvjzoeotGR HOOD S RAUSCH .Facility:G7Tvygj: 05-29-2022 End: 02-63-7953xzitppiqhoSH HOOD S RAUSCH .Facility:R8Bvbgf: 05-14-2022 End: 57-72-2533sooyjyljefCWAS SINGH .Facility:J5Oqtkp: 03-12-2022 End: 97-29-4206nxcgrbflasWK HOOD S RAUSCH .Facility:J9Kludg: 51-44-3923Ykaycqcui for preprocedural laboratory examinationDR HOOD S RAUSCH .[facility] Start: 02-10-2022 End: 19-86-9641dreogkccaiLW HOOD S RAUSCH .Facility:O4Wubxu: 02-06-2022 End: 82-10-4530hoblhpfavqRR HOOD S RAUSCH .Facility:Q3Jkiqu: 02-06-2022 End: 77-30-9032Yuztwtndr for preprocedural laboratory examinationDR HOOD S RAUSCH .Facility:R4Kdtfl: 02-03-2022 End: 24-62-2692lawdrwuwlmIF HOOD S RAUSCH .Facility:N2Ojzqo: 01-31-2022 End: 07-59-4911Wzzflkv encounter procedureDO Roberto Roth Work Phone: [facility]-[place] COVID TestingStart: 65-60-2121ipummfemecHN HOOD S RAUSCH .Facility:M6Jeera: 01-07-2022 End: 13-06-6511buyglwyogiVX HOOD S RAUSCH .Facility:T7Znfmg: 05-20-2020 End: 55-22-7933Mrjsrys encounter procedureCarl Ffamly-Bqt-Cpuvmimk TestingStart: 05-14-2020 End: 27-79-5449Gzuucmj encounter procedureCarl Lguabt-Inq-Lvgiysnd TestingStart: 04-26-2020 End: 65-09-5681Niekkoy encounter procedureCarl Roth-XRay [address] [place] Procedures DateProcedureProcedure DetailPerforming ClinicianStart: 71-88-6606NXHUBQC CULTUREJacky Brandon MD Work Phone: Start: 77-00-9527ANCVNDRLJ CULTUREJacky Brandon MD Work Phone: Start: 63-26-6647ZZ CHEST 2VHihien Brandon MD Work Phone: Start: 21-48-6842QJQ CBC WITH AUTO DIFFJacky Brandon MD Work Phone: Start: 04-59-7572ICJ 12-LEADJacky Brandon MD Work Phone: Start: 16-32-8059GH SINUS WO CONJacky Brandon MD Work Phone: Start: 85-10-4607Nijin cultureDO Roberto Roth Work Phone: Start: 48-11-5671W-ray of lumbar spine, six views including bending viewsDO Roberto Roth Work Phone: Start: 86-19-9933L-ray of lumbar spine, four viewsCarsinai Roth Plan of Treatment DateCare ActivityDetailAuthorStart: 04-24-2025 End: 43-51-2560Vicbikb encounter /25/2025 3:50 PM EST Office Visit [facility] [address] [place] [phone] Jacky Brandon MD [address] [place] [address] [facility] [place] OtolaryngologyStart: 03-16-2025 End: 01-19-5965Valhvxb encounter opyxiqqrn92/17/2025 3:40 PM EDT Office Visit [facility] [address] [place] [phone] Jacky Brandon MD [address] [facility] [address] [place] [address] [facility] OtolaryngologyStart: 03-16-2025 End: 40-07-9107Rpaaamr encounter bquqfuhsf16/17/2025 11:30 AM EDT Office Visit [facility] [address] [phone] Jacky Brandon MD [address] [facility] [address] [place] [address] ArrivedNOMS Virgie OtolaryngologyComment on above:ArrivedStart: 02-26-2025 End: 79-76-3968Yepwoln encounter procedureNOMS [place] OtolaryngologyComment on above:ArrivedStart: 33-63-6636ZEVRF-19 Vaccine ( season)COVID-19 Vaccine ( season)[facility] HealthcareStart: 79-90-7327Skjqtsbrm vaccinationJersey Mills ClinicStart: 01-23-2025 End: 47-17-9614Nbgjcqc encounter pephlxdlt85/26/2025 3:20 PM EDT Office Visit [facility] [address] [facility] [address] [place] [address] Jacky Brandon MD [address] [facility] [address] [place] [address] NOM[facility] CI ENTStart: 12-19-2024 End: 50-71-0726Gqkifkn cultureAerobic culture Microbiology Routine Phantosmia Expected: 12/19/2024 (Approximate), Expires: 12/19/2025[facility] Work Phone: Comment on above:Expected: 12/19/2024 (Approximate), Expires: 12/19/2025Start: 44-75-3870Lnafz-19 Vaccine ( season)Covid- 19 Vaccine ()[facility]: 09-18-4893Udoasjccq vaccinationInfluenza Vaccine (#1)[facility]: 20-80-3499Wiixu X-ray of right hipXR hip RT min 2V(w/wo pelvis)*[facility]: 86-28-1555YF Hip - right 2 ViewsClinton Memorial Hospitaltart: 01-17-1981Hheiqjwq identified in Urine by CultureClinton Memorial Hospitaltart: 06-01-2648Xwnnpwddg complement CH50 levelClinton Memorial Hospitaltart: 34-67-7851WexhjnwcbClinton Memorial Hospitaltart: 2018 Shingrix Vaccine (1 of 2)Shingrix Vaccine (1 of 2)[facility]: 40-19-1265Gdetigha ScreeningDiabetes ScreeningSelect Medical Specialty Hospital - [facility]rontart: 2013 Lipid panelLipid ScreeningSelect Medical Specialty Hospital - [facility]rontart: 92-82-5343Piubsmict for malignant neoplasm of colonSelect Medical Specialty Hospital - [facility]rontart: 12-45-6323Kkquumgeg for malignant neoplasm of breastSelect Medical Specialty [facility]art: 31-65-5612Qplqpitiv for malignant neoplasm of cervixNOMS HealthcareStart: 50-38-6766Rrhrnjwfb for malignant neoplasm of cervixSelect Medical Specialty Hospital - [facility]rontart: 93-64-2355Zuyhcveus B Vaccine (1 of 3 - 19+ 3-dose series)Hepatitis B Vaccine (1 of 3 - 19+ 3-dose series) [facility]: 08-28-0003Qgvtrkxcqvqc Vaccine: 50+ (1 of 2 - PCV) Pneumococcal Vaccine: 50+ (1 of 2 - PCV)[facility]: 92-62-0706Tfssw microalbumin profileDTaP,Tdap,Td Vaccine (1 - Tdap)[facility]: 50-98-4462Mgcgmwr ScreeningAnxiety ScreeningSelect [facility] Specialty [facility]art: 1986 Depression ScreeningDepression ScreeningSelect [facility]ty [facility]: 1986 Hepatitis C screeningHepatitis C ScreeningSelect Medical Specialty [facility]art: 97-47-0970YBP screeningHIV ScreeningSelect Medical Specialty Hospital [facility]art: 90-71-7800Tvvnviqjv for malignant neoplasm of colonNOMS HealthcareComplement C3 [Mass/volume] in Serum or Plasma [facility] C[facility] [Mass/volume] in Serum or Plasma [facility] End: 89-00-7227MD Lumbar spine WO contrastCT LUMBAR SPINE WO IVCON Radiology Routine Radiculopathy of lumbar region Spinal stenosis of lumbarregion without neurogenic claudication 1 Occurrences starting 06/23/2024 until 07/23/2025 [facility] Work Phone: Comment on above:1 Occurrences starting 06/23/2024 until 07/23/2025 End: 39-01-7117EPH(NEURO/NI)EMG(NEURO/NI) EMG Routine Radiculopathy of lumbar region Spinal stenosis of lumbar region without neurogenic claudication Right foot drop 1 Occurrences starting 06/23/2024 until 06/23/2025[facility] Comment on above:1 Occurrences starting 06/23/2024 until 06/23/2025Homogenous nuclear Ab pattern [Titer] in [facility] End: 44-68-4115PH Cervical spine WO contrastMRI CERVICAL SPINE WO IVCON Radiology Routine Spinal stenosis of cervical region 1 Occurrences starting 09/26/2024 until 10/26/2025[facility] Work Phone: Comment on above:1 Occurrences starting 09/26/2024 until 10/26/2025Nuclear Ab [Titer] in [facility] End: 99-63-3321SW Lumbar spine Views W flexion and W extensionXR LUMBAR MOTION 4V AP/LAT/ FLEX/EXT Radiology Routine Radiculopathy of lumbar region Spinal stenosis of lumbar region without neurogenic claudication 1 Occurrences starting 06/23/2024 until 07/23/2025[facility] CenterComment on above:1 Occurrences starting 06/23/2024 until 07/23/2025 Immunizations Immunization DateImmunizationNotesCare FpptfnfuSkjzxosh89-66-2887OSLRE-19 mRNA- 1273 (Moderna)DO Roberto Roth Work Phone: [facility]05-15-2021COVID-19 mRNA-1273 (Moderna)DO Roberto Roth Work Phone: [facility]12-24-2020influenza, injectable, quadrivalent, preservative freeDO Roberto Roth Work Phone: [facility]12-24-2020influenza virus vaccine, unspecified formulationLos Sarmiento MD Work Phone: [facility] HospitalOaeilh24-67-4650kvmsiappj, injectable, quadrivalent, preservative Larry Brandon MD Work Phone: [facility] Payers DatePayer CategoryPayerPolicy [id number]-eum [id number] [place] Blue Shield [id number]339.83694-35-3157Golgabx 1.2.840.049506.1.13.159.2.7.3.073768.34352-19-0414PfcliguXMZG3398820642-80-2705 [id number] 2.0.1.116942.3.579.2.15704-94-0770Ampzdas3860210 2.0.1.978532.3.579.2.61044-12-6681Eomjhox1012388 2.0.1.118897.3.579.2.58346-97-1975Fzlunxx8962016 2.0.1.966197.3.579.2.89788-96-9601Jnfmdlc9062732 2..1.896628.3.579.2.99624-97-0438Otvwbxz7929237 2.0.1.987261.3.579.2.34273-25-4728Kcapbur6129372 2.16.840.1.625237.3.579.2.65823-50-9933Opxzxvk7028587 2.16.840.1.376777.3.579.2.46279-89-5180Zufopyl3872564 2.16.840.1.826288.3.579.2.62821-31-9453Zmhcbuh4928098 2.16.840.1.977056.3.579.2.28464-29-8783Ukgigyo9563929 2.840.1.869462.3.579.2.59425-16-4030Ssfjlqn9244491 2.840.1.835047.3.579.2.65572-91-6398Lbpfeqk4475111 2.840.1.733296.3.579.2.72721-23-8124Ypdnwth4539157 2.840.1.785772.3.579.2.09905-73-2838Kwampxn9344820 2.840.1.985271.3.579.2.48409-83-4622Leapwkv743646914 2.840.1.636118.3.579.2.48652-45-0908Amisfkm887412519 2.840.1.666271.3.579.2.14747-03-7006Beaqvge505399823 2.840.1.278916.3.579.2.90494-96-3364Vmsgyes163921724 2.840.1.002126.3.579.2.36770-75-7445Wtjgysp45333228 2.840.1.509462.3.579.2.927166-40-1333Jemzwvg53815423 2.840.1.295196.3.579.2.706803-89-6304Qkkxbgj42683612 2.16.840.1.423247.3.579.2.892233-93-0751AthdnakFSX903X75240 568g8t64-5892-8fy3-o723-4xi20ow6s470Kzfsotj475930189 0u4h5095-6ix9-79p4-wm2p-7chr6dmz0454Vkiqyvl2008 2.16.840.1.170227.3.579.2.531 Social History DateTypeDetailFacilityStart: 05-14-2020 End: 36-44-2265Lfjmxdy smoking status NHISSmoker (finding)[facility]: 53-89-3192Fnz Assigned At BirthFeUniversity Hospitals Portage Medical Centertart: 06-09-2024 End: 51-02-3468Vscgvcn of tobacco useAdams County HospitalTobaelkview general [facility] smoking status NHIS Tobacco smoking consumption unknownSelect [facility]ty [facility]art: 27-74-2049Qgl assigned at birthNot on fileSelect Medical Specialty Hospital - Akrontart: 06-09-2024 End: 78-08-1850Qzacytf smoking status NHISSmokes tobacco dailyAdams County Hospital History of tobacco useCigarette SmokerSelect Medical Specialty Hospital - Akrontart: 06-09-2024 End: 46-74-0547Xlkfrwk use and exposureSmokeless tobacco non-userSelect Medical Specialty Hospital - Akrontart: 06-09-2024 End: 29-03-1972Outuphnnm beverage intakeEx-drinker (finding)[facility] Start: 06-09-2024 End: 32-22-3059Jbkolqb of Social functionSelect Medical Specialty Hospital - Akrontart: 97-51-8187Xdoxk Depression Screening Nbrcpjrxfq6Cafudhsjq ClinicSexFemale (finding)[facility] Medical Equipment Procedure CodeEquipment CodeEquipment Original TextEquipment IdentifierDates Fusion, spine, lumbar, XLIFCANCELLOUS COARSE 7.5CCFDAStart: 64-81-4519Fmgvyt, spine, lumbar, XLIFBone-screw internal spinal fixation system, non-sterile ()[id number] FDAStart: 23-07-3438Mrcwwe, spine, lumbar, XLIFBone-screw internal spinal fixation system, non-sterile()[id number] FDAStart: 22-61-2858Vrbknb, spine, lumbar, XLIFBone-screw internal spinal fixation system, non-sterile()[id number] FDAStart: 97-74-1242Dmnsnh, spine, lumbar, XLIF CANCELLOUS COARSE 7.5CCFDAStart: 76-26-2318Amzrax, spine, lumbar, XLIFBone-screw internal spinal fixation system, non-sterile()[id number] FDAStart: 89-13-5251Zstwqa, spine, lumbar, XLIFBone-screw internal spinal fixation system, non-sterile()[id number] FDAStart: 12-36-1875Uytgqg, spine, lumbar, XLIF Polymeric spinal fusion cage, non-sterile()[id number] FDAStart: 05-22-2020 Fusion, spine, lumbar, XLIFDura mater graft, bovine ()[id number] FDAStart: 55-11-7056Vfngvm, spine, lumbar, XLIFMAS REDUCTION FIXATION ADD LEVFDAStart: 35-61-9375Rjyvha, spine, lumbar, XLIFXLIF 1 LEVEL MAS REDUCTIONFDAStart: 93-65-1556Dsauxa, spine, lumbar, XLIFSpinal fusion graft kit()[id number] FDAStart: 82-75-9949Buvcwj, spine, lumbar, XLIFBone matrix implant, human-derived ()[id number] FDAStart: 02-05-9923Xqkapm, spine, lumbar, XLIFMetallic spinal fusion cage, non-sterile()[id number] FDAStart: 39-10-7834Obqaqw, spine, lumbar, XLIFBone-screw internal spinal fixation system, non-sterile()[id number] FDAStart: 61-77-7266Tncqxe, spine, lumbar, XLIFCANCELLOUS COARSE 7.5CCFDAStart: 40-46-1261Bagrtp, spine, lumbar, XLIF CANCELLOUS COARSE 7.5CCFDAStart: 75-69-2800Emqnjb, spine, lumbar, XLIFMAS REDUCTION FIXATION ADD LEVFDAStart: 33-07-3909Chojku, spine, lumbar, XLIFXLIF 1 LEVEL MAS REDUCTIONFDAStart: 02-75-6823Doratb, spine, lumbar, XLIFCANCELLOUS COARSE 7.5CCFDAStart: 82-34-8772Vqrkqa, spine, lumbar, XLIFCANCELLOUS COARSE 7.5CCFDAStart: 03-11-6790Lyzmfz, spine, lumbar, XLIFMAS REDUCTION FIXATION ADD LEVFDAStart: 00-74-7756Ogqccd, spine, lumbar, XLIFXLIF 1 LEVEL MAS REDUCTIONFDA Start: 54-30-7905Ivezwy, spine, lumbar, XLIFCANCELLOUS COARSE 7.5CCFDAStart: 83-32-3697Jyfsar, spine, lumbar, XLIFCANCELLOUS COARSE 7.5CCFDAStart: 05-22-2020 Fusion, spine, lumbar, XLIFMAS REDUCTION FIXATION ADD LEVFDAStart: 05-22-2020 Fusion, spine, lumbar, XLIFXLIF 1 LEVEL MAS REDUCTIONFDAStart: 45-58-9801Gikspq, spine, lumbar, XLIFCANCELLOUS COARSE 7.5CCFDAStart: 66-11-0422Hypejs, spine, lumbar, XLIFCANCELLOUS COARSE 7.5CCFDAStart: 15-19-6934Krhajo, spine, lumbar, XLIFMAS REDUCTION FIXATION ADD LEVFDAStart: 51-55-4911Ncrhpt, spine, lumbar, XLIFXLIF 1 LEVEL MAS REDUCTIONFDAStart: 05-22-2020 Goals DatePatient GoalDesired Activity/State Clinical Notes 01-07-2022 to 03-16-2025 Note Date & XicfCpplYcejxcgg16-25-1788 History of Present illness Narrative* Jacky Brandon [...] evening and 600 mg before bedtime. HYDROcodone-acetaminophen ([place]) 7.5-325 MG tablet TAKE ONE TABLET BY [...] file prior to visit. documented in this encounterSaint John's Saint Francis HospitalZngaaoiwrs98-24-7992 NoteAEROBIC CULTUREis in progress.[facility] HealthcareSiupxpyklf25-57-3188 NoteAEROBIC CULTUREis in progress.[facility] HealthcareUbhcixtdsd00-37-2668 History of Present illness Narrative* Jacky Brandon [...] evening and 600 mg before bedtime. HYDROcodone-acetaminophen ([place]) 7.5-325 MG tablet TAKE ONE TABLET BY [...] pt who expressed understanding. documented in this encounterSaint John's Saint Francis HospitalVmpoguyfqf55-11-6674 History of Present illness Narrative* Jacky Brandon [...] pathology and plan surgicaltx. documented in this encounterSaint John's Saint Francis HospitalHuncrvcdua96-23-8812 History of Present illness Narrative* Los Sarmiento [...] gabapentin, meloxicam, voltaren cream, heat, mdp x1 [place] - 3x/dy REVIEW OF SYSTEMS: GENERAL: No [...] 10 mg by mouth daily at bedtime. egykmqcktne-kdrpbojqs-ioubygvt (TRELEGY ELLIPTA) 100-62.5-25 mcg inhalation powder Inhale [...] with more than 50% of the total abwe-xt-ejvp time of the visit in counseling / coordination of care. SIGNATURE: Los Sarmiento MD PATIENT NAME: Kim Hill DATE: September 25, 2024 TIME: 3:07 PM PAGER: By signing my name below, I, Ernestina Albert, attest that this documentation has been prepared under the direction and in the presence of Dr. Sarmiento Electronically signed, Monae Chew September 25, 2024 3:08 PM documented in this encounterAdams [facility] Hospital01-24-2025 Telephone encounter Note * Telephone Encounter - Ness Corbett RN - 06/23/2024 11:11 AM EST Neuro SPINE CARE COORDINATION QUICK NOTE Called patient, no answer. Left non-detailed VM on non-identified VM box instructing patient to call office or check MYC messages for details. Ness Corbett RN June 23, 2024 11:12 AM [facility]01-24-2025 Miscellaneous Notes* Telephone Encounter - Ness Corbett [...] that Pt can schedule. documented in this encounterAdams County Hospital01-23-2025 Telephone encounter Note * Telephone Encounter - Marta Walker - 06/22/2024 9:51 AM EST Pt called asking for orders informed by on OV 06/16/24. Discussed with patient will order CT and EMG as well as standing xray Pls send MyC msg once orders are ready so that Pt can schedule. [facility]01-17-2025 NoteHNO ID: [id number] Author: LOS SARMIENTO MD Service: ? Author Type: Physician Type: Progress Notes Filed: 06/16/2024 17:55 Note Text: Rescheduled, no chargeMorrow County Hospital01-17-2025 NoteHNO ID: [id number] Author: LOS SARMIENTO MD Service: ? Author Type: Physician Type: Progress Notes Filed: 06/16/2024 09:36 Note Text: I have communicated my name and active licensure. The patient's identity and physical location were verified at the time of this visit. Either the patient or their legal credit representative has been informed of the risks [...] with more than 50% of the total bdcx-tf-jekz time of the visit in counseling / coordination of care.[facility]01-17-[facility] History of Present illness Narrative* Los Sarmiento MD - 06/16/2024 9:31 AM EST I have communicated my name and active licensure. The patient's identity and physical location wereverified at the time of this visit. Either the patient or their legal credit representative has been informed of the risks [...] with more than 50% of the total [id number] time of the visit in counseling / coordination of care. documented in [facility] NoteHNO ID: [id number] Author: KENAN GODOY APRN.[employer] M[employer]INE 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 Author Type: [...] gabapentin, meloxicam, voltaren cream, heat, mdp x1 [place] - 3x/dy Studies (Reports unless indicated) Mri lumbar report Lumbarization S1 S/p :L4-S1 fusion L5/S1 mod b/l FS S1/2 paraspinal muscle mod to severe atrophy Disposition: Please schedule with dr sarmiento if patient would like soon can schedule with myself. Please instruct patient to bring copy of imaging and injection history for review.[facility]10-11-2024 History of Present illness Narrative* Kenan Godoy APRN.BORING MACHINE SET UP OPERATOR - 03/10/2024 4:02 PM EDT Per Triage: [...] gabapentin, meloxicam, voltaren cream, heat, mdp x1 Holcombe - 3x/dy Studies (Reports unless indicated) Mri [...] Health Provider or Pain Management Provider at [facility]? No If answer is YES [...] the facility where the MRI/CT/myelogram was completed: [place] [address] MRI/CT/myelogram viewable in Epic: No If not, please provide [phone] to fax in imaging reports for review. Also, please inform patient to hand carry imaging disc to appointment. XR (spine) within 12 months: Yes If YES, please ask for the name/address of the facility where the XR was completed: [place] [address] Dr. Freeman's patients: Have you had previous [...] therapy was completed [facility] [place] [address] Have you tried any other kinds of non-surgical treatments in the last 12 months? (For example: NSAIDS, muscle relaxants, analgesics, oral steroids, Chiropractor, Acupuncture): gabapentin, meloxicam, voltaren cream, heat, mdp x1 4. Are you currently taking daily prescribed narcotic medications for your current symptoms (For example Oxycodone, Hydrocodone, Tramadol, Morphine, Other)? Yes Holcombe - 3x/dy 5. Have you had previous spinal surgery for this same symptoms? Yes If YES please ask for the name of facility/address of where the surgery was completed: [facility] - 2 cages Additional Comments [phone] documented in this encounterAd[facility] NoteHNO ID: [id number] Author: ?, ?, ? Service: ? Author Type: ? Type: Progress Notes Filed: 03/10/2024 16:07 Note Text: Patient name: Kim Hill Are you being referred by a [facility] Spine Health Provider or Pain Management Provider at [facility]? No If answer is YES [...] the facility where the MRI/CT/myelogram was completed: [place] [address] MRI/CT/myelogram viewable in [facility]: No If not, please provide [phone] to fax in imaging reports for review. Also, please inform patient to hand carry imaging disc to appointment. XR (spine) within 12 months: Yes If YES,? please ask for the name/address of the facility where the XR was completed: [place] [address] Dr. Freeman's patients: Have you had previous [...] therapy was completed [facility] - Pain mg[facility] - [address] [place] [address] Have you tried any other kinds of non-surgical treatments in the last 12 months? (For example: NSAIDS, muscle relaxants, analgesics, oral steroids, Chiropractor, Acupuncture): gabapentin, meloxicam, voltaren cream, heat, mdp x1 4. Are you currently taking daily prescribed narcotic medications for your current symptoms (For example Oxycodone, Hydrocodone, Tramadol, Morphine, Other)? Yes Holcombe - 3x/dy 5. Have you had previous spinal surgery for this same symptoms? Yes If YES? please ask for the name of facility/address of where the surgery was completed: [facility] - 2 cages Additional Comments [phone] Note CONSULTATION CONSULTATION DATE: 10/06/2022 TO: [...] pill b.i.d. and to continue to use Holcombe 7.5 mg t.i.d. We did reduce the use at her last visit from 90 pills a month to 80 pills to last one month's time. She appears to be tolerating this transition quite well. I have asked her to continue with gabapentin 600 mg t.i.d. Her JOYCE on today's visit is 28. She reports the Holcombe does improve her quality of life, level of functioning and sleep pattern, and she denies any side effects. As part of providing excellent, safe, comprehensive care, the following was completed at our patient's visit: 1. A medication reconciliation and review to ensure accurate knowledge of current/active medications, including asking our patients to inform us about any tsfy-rdw-uhvnjjb medications or herbal remedies/nutritional supplements/alternative remedies. 2. [...] treatment options with their primary care provider.[facility] [id number] Note CONSULTATION CONSULTATION DATE: 09/01/2022 TO: Dr. [...] our patients to inform us about any bcun-rki-ptnieum medications or herbal remedies/nutritional supplements/alternative remedies. 2. [...] treatment options with their primary care provider.[facility] [id number] Evaluation note * Encounter Date Diagnosis Assessment Notes Treatment Notes Treatment Clinical Notes Jul, Other chronic pain (ICD-10 - G89 .29) Jul,Low back pain, unspecified (ICD-10 - M54.50) [employer] Other 02-16-2023 NoteCONSULTATION CONSULTATION DATE: 07/16/2022 HISTORY OF PRESENT ILLNESS: This is a 51-year-old female who returns to the clinic status post bilateral SI joint injection completed on 06/23/2022. The patient received 80% relief for one day and on day two felt worse than her normal baseline pain. Today, she rates her pain 8/10. Medications include gabapentin 600 mg t.i.d., Holcombe 7.5/325 b.i.d. and Mobic 15 mg daily. [...] her medications; Mobic 15 mg daily and Holcombe 7.5/325 b.i.d. She will return to the clinic in six weeks' time, in which we will, in addition to her PCPs office, review the MRI and form a plan of care at that time. Patient is in agreement to this plan.[facility] [id number] Note CONSULTATION CONSULTATION DATE: 05/29/2022 HISTORY OF [...] down. Medications include gabapentin 600 mg t.i.d., Holcombe 7.5/325 b.i.d. and diclofenac 50 mg daily. [...] and will be followed up thereafter.[facility] [id number] NoteCONSULTATION CONSULTATION DATE: 05/14/2022 HISTORY OF PRESENT [...] as well as gabapentin 600 mg t.i.d., Holcombe 7.5/325 t.i.d. At her last appointment, she [...] Refills for gabapentin 600 mg t.i.d. and Holcombe 7.5/325 b.i.d. will be sent to her pharmacy. Patient agrees to move forward with the procedure. She will followed up in the clinic thereafter.[facility] [id number] NotePAIN MANAGEMENT CONSULTATION CONSULTATION DATE: 05/14/2022 CHIEF [...] a sacroiliac joint injection under fluoroscopy.[facility] [id number] NoteCONSULTATION CONSULTATION DATE: 03/12/2022 ADDENDUM DIAGNOSIS: Lumbar spondylosis, lumbar degenerative disc disease, chronic lower back pain and a history of a lumbar fusion.[facility] [id number] Note CONSULTATION CONSULTATION DATE: 03/12/2022 This is [...] Current medications include gabapentin 600 mg t.i.d., Holcombe 7.5/325 b.i.d., diclofenac cream and ibuprofen. She [...] with her vitamins as well as her Holcombe. The dose of frequency will not be changed. We will have the patient return to the clinic in two months' time for re-evaluation. The patient is inquiring about an increase of her Holcombe, possibly during the winter months. There will be no changes today.[facility] [id number] NoteCONSULTATION CONSULTATION DATE: 01/07/2022 This is a [...] Current medications include gabapentin 600 mg b.i.d., Holcombe 7.5/325 b.i.d., diclofenac topical, multivitamin regimen and ibuprofen p.r.n. She has tried diclofenac in the past but was unable to tolerate it due to stomach issues but low-dose ibuprofen she can tolerate. She is needing Holcombe and gabapentin refill today. REVIEW OF SYSTEMS, [...] subsequently move to the left. Refill for Holcombe 7.5/325 b.i.d. and gabapentin 600 mg b.i.d. will be sent to the pharmacy. The patient is encouraged to increase magnesium in her vitamin regimen as well as menthol heat rub, seated stretches that were demonstrated and heat application. The patient agrees with the plan of care and would like to move forward and she will follow-up in the clinic post procedure.[facility] CampusEvaluation noteNo assessment information availableOhiohealth Grady Memorial Hospital Work Phone: Evaluation noteNo InformationNortLifecare Hospital of [facility]ics[facility] Seen Other evaluation note* Diagnosis Lumbar radiculopathy- Primary Thoracic or lumbosacral neuritis or radiculitis, unspecified documented in this encounter [facility] note* Diagnosis Radiculopathy of lumbar region- Primary Thoracic or lumbosacral neuritis or radiculitis, unspecified Spinal stenosis of lumbar region without neurogenic claudication Spinal stenosis, lumbar region, without neurogenic claudication Right foot drop Other acquired deformity of ankle and foot documented in this encounter [facility] note* Diagnosis Spinal stenosis of cervical region- Primary Spinal stenosis in cervical region Lumbar radiculopathy Thoracic or lumbosacral neuritis or radiculitis, unspecified Adhesive arachnoiditis (HCC) Meningitis, unspecified documented in this encounter [facility] note* Diagnosis Phantosmia- Primary Chronic maxillary sinusitis History of MRSA infection documented in this encounter [facility]* Diagnosis Chronic maxillary sinusitis- Primary documented in this encounter [facility]* Diagnosis Chronic maxillary sinusitis- Primary Foreign body in nose, initial encounter documented in this encounter [facility] HealthcareHistory general Narrative - Reported* Type Description Date Medical History osteoarthritis Medical Historyrheumatoid arthritisMedical Historycarpal tunnelMedical History fibromyalgiaMedical HistoryhypertensionMedical HistoryArthritisMedical History asthmaMedical HistoryobesityMedical HistorypneumoniaMedical Historyanxiety Surgical Afmixhqfbqyumhgaqrp86/2012Surgical Historyback surgerySurgical History left middle finger surgeryHospitalization Historysee aboveHospitalization History4 child births [facility] Seen Other reason for referral (narrative)* Diagnostic Procedure Only (Routine) - New RequestSpecialtyDiagnoses / ProceduresReferred By Contact Referred To ContactXR IMAGING Diagnoses Radiculopathy of lumbar region Spinal stenosis of lumbar region without neurogenic claudication Procedures XR LUMBAR MOTION 4V AP/LAT/ FLEX/EXT RADEX SPINE LUMBOSACRAL MINIMUM 4 VIEWS Kenan Godoy APRN.BORING MACHINE SET UP OPERATOR [address] [place] [address] Xr Imaging [place] [address] Referral IDStatusReasonStart DateExpiration DateVisits RequestedVisits [id number] Request Auto-Generated Referral * Outpatient Procedure (Routine) - New RequestSpecialtyDiagnoses / Procedures Referred By ContactReferred To ContactNEUROLOGICAL INSTITUTE Diagnoses Radiculopathy of lumbar region Spinal stenosis of lumbar region without neurogenic claudication Right foot drop Procedures EMG(NEURO/NI) NERVE CONDUCTION STUDIES 9-10 STUDIES Kenan Godoy APRN.BORING MACHINE SET UP OPERATOR [address] [place] [address] Neurological [place] [address] [place] [address] Referral IDStatusReasonStart DateExpiration DateVisits RequestedVisits [id number] Request Auto-Generated Referral * MRI/CT (Routine) - New RequestSpecialtyDiagnoses / ProceduresReferred By ContactReferred To ContactCT IMAGING Diagnoses Radiculopathy of lumbar region Spinal stenosis of lumbar region without neurogenic claudication Procedures CT LUMBAR SPINE WO IVCON CT LUMBAR SPINE W/O CONTRAST MATERIAL Kenan Godyo APRN.BORING MACHINE SET UP OPERATOR [address] [place] [address] Ct Imaging [place] [address] Referral IDStatusReasonStart DateExpiration DateVisits RequestedVisits [id number] Request Auto-Generated Referral [facility] for referral (narrative)No reason for referral information availableOhiohealth Grady Memorial Hospital Work Phone: Advance Directives Advance Directive [...] Start DateEnd Date Aby Mark CNP [address] [place] [address] ReferringFamily Prcjoyey46/3/24Team MemberRelationshipSpecialtyStart DateEnd Date Aby Mark CNP [address] [place] [address] ReferringFamily Gtkjfdql89/3/24Team MemberRelationshipSpecialtyStart DateEnd Date Aby Mark CNP [address] [place] [address] ReferringFamily Zuqcsjal85/3/24Team MemberRelationshipSpecialtyStart DateEnd Date Aby Mark CNP [address] [place] [address] ReferringFamily Lnptoaln85/3/24Team MemberRelationshipSpecialtyStart [place] [address] [place] [address] PCP - GeneralCardiology12/05/24Team MemberRelationshipSpecialtyStart [place] [address] [place] [address] PCP - GeneralCardiology12/05/24Team MemberRelationshipSpecialtyStart [place] [address] [place] [address] PCP - GeneralCardiology12/05/24Team MemberRelationshipSpecialtyStart [place] [address] [place] [address] PCP - GeneralCardiology12/05/24Team MemberRelationshipSpecialtyStart [place] [address] [place] [address] PCP - GeneralCardiology12/05/24 Team Status: Inactive Member Role Status Dates Jacky Brandon Jr, MD Attending Provider Active Start: March 08, 2025 End: March 08, 2025Team MemberRelationshipSpecialtyStart [place] [address] [place] [address] PCP - GeneralCardiology12/05/24Team MemberRelationshipSpecialtyStart [place] [address] [place] [address] PCP - GeneralCardiology12/05/24 Goals (unrecognized section and content) Goals may be documented in a n alternate sectionGoals may be documented in an alternate sectionGoals may be documented in an alternate sectionGoals may be documented in an alternate sectionNo InformationNo InformationGoals may be documented in an alternate section INFORMATION SOURCE (unrecogn ized section and content) DATE CREATED AUTHOR 08/01/2022 [facility] DATE CREATED AUTHOR AUTHOR'S ORGANIZ ATION 11/06/2022 [facility] DATE CREATED AUTHOR AUTHOR'S ORGANIZ ATION 09/28/2024 [facility] DATE CREATED AUTHOR AUTHOR'S ORGANIZ ATION 02/11/2025 [facility] DATE CREATED AUTHOR AUTHOR'S ORGANIZ ATION 03/10/2025 [facility] DATE CREATED AUTHOR AUTHOR'S ORGANIZ ATION 03/18/2025 [facility] EPIC REASON FOR VISIT (unrecogniz [...] or prosecute any alcohol or drug abuse patient.[facility] HospitalIn the event this information is protected by the Federal Confidentiality of Alcohol and Drug Abuse Patient Records regulations: The Federal rules restrict any use of the information to criminally investigate or prosecute any alcohol or drug abuse patient.[facility] HospitalIn the event this information is protected by the Federal Confidentiality of Alcohol and Drug Abuse Patient Records regulations: The Federal rules restrict any use of the information to criminally investigate or prosecute any alcohol or drug abuse patient.[facility] HospitalIn the event this information is protected by the Federal Confidentiality of Alcohol and Drug Abuse Patient Records regulations: The Federal rules restrict any use of the information to criminally investigate or prosecute any alcohol or drug abuse patient.[facility] FOR RECORDS PERTAINING TO PATIENTS WHO [...] BE BASED ON THE PRIMARY CLINICAL RECORDS. [facility], [facility]. provides no warranty or guarantee of the accuracy or completeness of information in this document.
--- NOTE | 2025-04-23 11:26 | XR_ITS ---
The [address] [address] Patient Name: AKASH LIU MRN: [id number] date: 1970 Sex: F Assigned Patient Location: [facility] Current Patient Location: [facility] Accession/Order Number: [id number] Exam Date: 04/23/2025 11:35 Report Date: 04/23/2025 12:20 At the request of: CHRISTIAN ROMO DPLeo Procedure: XR foot RT min 3V CLINICAL DATA: Chronic right heel pain. No reported injury. RIGHT ANKLE - 3 views COMPARISON: None Weightbearing AP, lateral and oblique views were obtained. There is no evidence of fracture or dislocation. The talar dome is intact. There are no significant soft tissue abnormalities. XR/XR ankle RT min 3V IMPRESSION: NO ACUTE BONY FINDINGS. RIGHT FOOT - 3 views COMPARISON: None Weightbearing AP, lateral and oblique views were obtained. There is no evidence of fracture or dislocation. No significant heel spurs are seen. There are no significant soft tissue abnormalities. IMPRESSION: NO ACUTE BONY FINDINGS. Impression dictated by: Shalonda Mckee M.D. 04/23/2025 12:20 PM Dictation Location: [place] [address] Electronically authenticated by: [id number] Y Date: 04/23/2025 12:20
--- NOTE | 2025-04-23 11:26 | XR_ITS ---
The [address] [address] Patient Name: AKASH LIU MRN: [id number] date: 1970 Sex: F Assigned Patient Location: [facility] Current Patient Location: [facility] Accession/Order Number: [id number] Exam Date: 04/23/2025 11:35 Report Date: 04/23/2025 12:20 At the request of: CHRISTIAN ROMO DPeLo Procedure: XR foot RT min 3V CLINICAL DATA: Chronic right heel pain. No reported injury. RIGHT ANKLE - 3 views COMPARISON: None Weightbearing AP, lateral and oblique views were obtained. There is no evidence of fracture or dislocation. The talar dome is intact. There are no significant soft tissue abnormalities. XR/XR foot RT min 3V IMPRESSION: NO ACUTE BONY FINDINGS. RIGHT FOOT - 3 views COMPARISON: None Weightbearing AP, lateral and oblique views were obtained. There is no evidence of fracture or dislocation. No significant heel spurs are seen. There are no significant soft tissue abnormalities. IMPRESSION: NO ACUTE BONY FINDINGS. Impression dictated by: Shalonda Mckee M.D. 04/23/2025 12:20 PM Dictation Location: [place] [address] Electronically authenticated by: [id number] Y Date: 04/23/2025 12:20
== END 2025-04-23 10:10 | disposition home or self-care (01) ==
LOC: RAD 10:11
PROVIDERS: PCP Nurse Practitioner Family; Visit Provider Podiatrist Foot & Ankle Surgery
DX: M25.571 Pain in right ankle and joints of right foot (principal); M79.671 Pain in right foot
CPT/HCPCS: 73610; 73630

== ENCOUNTER 2025-05-03 15:06 | Outpatient (OUT) | payer BC, SELFPAY ==
--- NOTE | 2025-05-03 15:40 | PM.CN ---
Consult Note: HPI Data of Consult Patient: known to practice within the last 3 years Consult date: 05/03/25 Requesting Physician: Day Fleming NP Primary Care Provider: JOSEPH MARK Consult Narrative Reason for consult: f/u Narrative: Kim Hill a pleasant 54 year old female presents to office for evaluation of chronic low back and bilateral sij injection, post lumbar fusion L4-5 L5-S1. Patient rating pain today 5/10 increasing to 10/10 with standing and activity. Patient finds mild to moderate benefit with norco 7.5-325mg TID PRN, gabapentin 600mg TID, baclofen 10mg BID, mobic 15mg daily without side effects. Pt has a hx of multilevel lumbar fusion 3 years ago but continues to have moderate to severe pain. recently underwent bialteral L2-3 L3-4 facet medial branch block with >80% improvement in pain and functional ability for 12 hours. preop pain up to 10/10 post op pain 1/10 with activity. cc:: CC: Day Fleming NP [facility] Medical History (Updated 03/02/25 @ 10:43 by Marissa Moran RN) COPD (chronic obstructive pulmonary disease) ?J44.9 - Chronic obstructive pulmonary disease, unspecified (ICD-10) Chronic fatigue ?R53.82 - Chronic fatigue, unspecified (ICD-10) Spinal stenosis ?M48.00 - Spinal stenosis, site unspecified (ICD-10) Foot drop, right ?M21.371 - Foot drop, right foot (ICD-10) Vitamin D deficiency ?E55.9 - Vitamin D deficiency, unspecified (ICD-10) Generalized anxiety disorder ?F41.1 - Generalized anxiety disorder (ICD-10) Prediabetes ?R73.03 - Prediabetes (ICD-10) Cardiomegaly ?I51.7 - Cardiomegaly (ICD-10) Hx MRSA infection ?Z86.14 - Personal history of Methicillin resistant Staphylococcus aureus infection (ICD-10) Hallux valgus (acquired), left foot ?M20.12 - Hallux valgus (acquired), left foot (ICD-10) Sinusitis ?J32.9 - Chronic sinusitis, unspecified (ICD-10) Asthma exacerbation ?J45.901 - Unspecified asthma with (acute) exacerbation (ICD-10) Influenza ?J11.1 - Influenza due to unidentified influenza virus with other respiratory manifestations (ICD-10) Obesity ?E66.9 - Obesity, unspecified (ICD-10) Osteoarthritis ?M19.90 - Unspecified osteoarthritis, unspecified site (ICD-10) Rheumatoid arthritis ?M06.9 - Rheumatoid arthritis, unspecified (ICD-10) Anxiety ?F41.9 - Anxiety disorder, unspecified (ICD-10) Acid reflux ?K21.9 - Gastro-esophageal reflux disease without esophagitis (ICD-10) Smoker ?F17.200 - Nicotine dependence, unspecified, uncomplicated (ICD-10) Asthma ?J45.909 - Unspecified asthma, uncomplicated (ICD-10) Heart murmur ?R01.1 - Cardiac murmur, unspecified (ICD-10) HTN (hypertension) ?I10 - Essential (primary) hypertension (ICD-10) Surgical History (Updated 03/02/25 @ 08:09 by Marissa Moran RN) H/O radiofrequency ablation (RFA) of nerve of lumbar spine ?Z98.890 - Other specified postprocedural states (ICD-10) History of lymph node excision ?Z98.890 - Other specified postprocedural states (ICD-10) History of hysterectomy ?Z90.710 - Acquired absence of both cervix and uterus (ICD-10) History of lumbar fusion ?Z98.1 - Arthrodesis status (ICD-10) Family History Aunt Family history of cancer Mother Family history of diabetes mellitus Family history of hypertension Father Family history of diabetes mellitus Family history of hypertension Social History (Updated 03/02/25 @ 07:55 by Marissa Moran RN) Within the past year, how often did you have a drink containing alcohol: monthly or less Smoking status: Current every day smoker Non-prescribed substance use: denies use 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 Highest level of school completed/degree received: GED or equivalent Are you now , , , , never or living with a partner: In a typical week, how many times do you talk on the telephone with family, friends, or neighbors: 3 or more times per week How often do you get together with friends or relatives: 3 or more times per week Little interest or pleasure in doing things: not at all Feeling down, depressed, or hopeless: not at all Feel stressed/tense/nervous/anxious/difficulty sleeping: not at all Do you think of yourself as: straight/heterosexual Gender Identity: female Meds Home Medications and Allergies Home Medications ?Medication ?Instructions ?Recorded ?Confirmed ?Type lisinopril 10 mg tablet 10 mg PO DAILY 11/12/22 03/08/25 History albuterol 90 mcg-budesonide 80 2 inh inhalation BID PRN sob 04/27/24 04/23/25 History mcg/actuation HFA aerosol inhaler (Airsupra) montelukast 10 mg tablet 10 mg PO DAILY 04/27/24 04/23/25 History (Singulair) gabapentin 600 mg tablet 600 mg PO TID #90 tabs 07/11/24 04/23/25 Rx meloxicam 15 mg tablet 15 mg PO DAILY #30 tabs 07/11/24 04/23/25 Rx hydrocodone 7.5 mg-acetaminophen See Rx Instructions .Route 11/02/24 04/23/25 Rx 325 mg tablet .COMPLEX PRN pain #70 tabs baclofen 10 mg tablet 10 mg PO TID PRN muscle spasm #270 02/01/25 04/23/25 Rx tabs cetirizine 10 mg tablet 10 mg PO DAILY PRN allergy symptoms 02/28/25 04/23/25 History cyanocobalamin (vitamin B-12) 500 500 mcg PO DAILY 02/28/25 04/23/25 History mcg lozenges fluticasone fur. 200 mcg-umeclid 1 inh inhalation Q24H 02/28/25 04/23/25 History 62.5 mcg-vilant 25 mcg inhalat.powder (Trelegy Ellipta) fluticasone propionate 50 2 spray intranasal Q12H 02/28/25 04/23/25 History mcg/actuation nasal spray,suspension ipratropium 0.5 mg-albuterol 3 mg 3 ml inhalation Q8H PRN shortness 02/28/25 04/23/25 History (2.5 mg base)/3 mL nebulization of breath or wheezing soln pantoprazole 40 mg tablet,delayed 40 mg PO DAILY 02/28/25 04/23/25 History release gabapentin 600 mg tablet 600 mg PO TID #270 tabs 04/03/25 04/23/25 Rx hydrocodone 7.5 mg-acetaminophen See Rx Instructions .Route 04/03/25 04/23/25 Rx 325 mg tablet .COMPLEX PRN pain #70 tabs acetylcysteine 600 mg capsule (NAC) 600 mg PO DAILY 04/23/25 04/23/25 History Allergies Allergy/AdvReac Type Severity Reaction Status Date / Time amoxicillin (From Augmentin) Allergy Unknown Rash Verified 04/23/25 08:06 clavulanic acid (From Allergy Unknown Rash Verified 04/23/25 08:06 Augmentin) Penicillins Allergy Unknown RASH Verified 04/23/25 08:06 Exam Constitutional Documenting provider has reviewed patient's vital signs: yes Common normals: no apparent distress, oriented x3 and alert General appearance: cooperative HENMT Common normals: normocephalic, hearing grossly normal bilaterally and moist oral mucous membranes Head and scalp: normocephalic Eye Common normals: PERRL Pupil: PERRL Neck & C-Spine Common normals: full ROM General: normal visual inspection Chest Common normals: inspection of chest normal Respiratory Common normals: normal respiratory effort, no retractions and no use of accessory muscles Back & Pelvis Lumbar spine/lower back: ROM limited, pain with ROM, lumbar spinal tenderness Lumbar spinal tenderness location: L1, L2 and L3 and straight leg raise negative bilaterally Sacroiliac joints: SI joints normal Other: positive facet loading bilaterally strength 5/5 in BLE, sensation intact BLE Neuro Common normals: oriented x3 Sensorium/orientation: alert Psych Common normals: mental status grossly normal, thought process normal, cooperative, affect normal, speech normal and activity/motor behavior normal Speech: normal speech Thought process: normal thought process Results Additional Findings Additional findings: If on a controlled substance or opioids, I have checked an [place] report on this patient and there are no aberrancies noted in the prescribing history.??If on a controlled substance or opioid a drug screen was completed and reviewed within the last year, and if there has not been a drug screen completed we ordered one today to monitor higher risk, state monitored pain medication use. As part of providing excellent, safe, comprehensive care, the following was completed at our patient's visit: 1. A medication reconciliation and review to ensure accurate knowledge of current/active medications, including asking our patients to inform us about any fkgq-[id number] medications or herbal remedies/nutritional supplements/alternative remedies. 2. A review to specifically ensure our patients have had annual screening for screening for depression, screening for tobacco use, and screening for unhealthy alcohol use. For concerning screenings had a discussion with the patient, provided patient education, and recommended follow-up with primary care provider when appropriate. If patient noted with a risk of falling, they received education on strength, gait, and balance training to prevent future risk of falling. Portions of this note may have been carried over from the previous visit and updated as appropriate. Please note this office utilizes paper charting in addition to the electronic medical record. A list of current medications, vitals, and PMH is available there as the clinical staff outside of myself do not have access to [employer] charting during the clinic day operations. As part of providing quality comprehensive care the current medications, vitals, and PMH were reviewed in the paper chart. Assessment and Plan Assessment and Plan (1) Lumbar spondylosis: (2) Sacroiliitis: (3) Lumbar stenosis with neurogenic claudication: (4) Failed back syndrome: (5) Chronic prescription opiate use: Plan The patient has had over 3 months of moderate to severe low back pain with functional impairment and inadequate response to conservative care including NSAIDS (unless there are contraindication such as concurrent blood thinners), multiple oral or topical pain medications, and home exercise program/physical therapy.? Patient has completed >6 weeks of guided home exercise program and/or formal physical therapy program without relief of their symptoms.? I have reviewed the imaging of the lumbar spine and no red flags were identified.? The Oswestry Disability Index was completed, and the patient scored a 57%.? bilateral L2-3 L3-4 facet medial branch block x2 for facet mediated low back pain in consideration of RFA continue HEP as tolerated continue current medications f/u after each injection
== END 2025-05-03 15:07 | disposition home or self-care (01) ==
LOC: PM 15:06
PROVIDERS: PCP Nurse Practitioner Family; Visit Provider Nurse Practitioner
DX: M47.816 Spondylosis without myelopathy or radiculopathy, lumbar region (principal); M46.1 Sacroiliitis, not elsewhere classified; M48.062 Spinal stenosis, lumbar region with neurogenic claudication; M96.1 Postlaminectomy syndrome, not elsewhere classified; Z79.891 Long term (current) use of opiate analgesic
CPT/HCPCS: G0463

== ENCOUNTER 2025-05-14 12:00 | Day surgery (SDC) | payer BC, SELFPAY ==
[2025-05-14 12:05] VITALS: BP 116/72; PULSE 95; TEMP 36.6; O2SAT 96
[2025-05-14 12:31] VITALS: BP 141/85; BP 154/93; PULSE 86; PULSE 88; O2SAT 96; O2SAT 99
[2025-05-14] MEDS: BUPIVACAINE HCL 0.25% PF 25 MG/10 ML VIAL 8 ML INJ (12:32)
[2025-05-14] MEDS: LIDOCAINE HCL 2% 400 MG/20 ML MDV INJ (12:33)
--- NOTE | 2025-05-14 12:36 | W.PM.PROCNOT ---
Date of procedure: 05/14/25 Pre-op diagnosis: Pain due to lumbar spondylosis without myelopathy Post-op diagnosis: same as pre-op Procedure: Procedure: Bilateral L2-3, L3-4 medial branch block Medications: Bupivacaine 0.25% 6cc The patient was seen and examined in the preoperative holding area.? An informed consent was obtained and placed on the chart.? The patient was brought to the medical procedure unit and placed in the prone position.? A timeout was completed verifying correct patient, procedure site, positioning, plan, and special equipment.? Using aseptic technique, the needle was placed at left L2. Under direct fluoroscopic visualization a Quincke-tipped spinal needle was advanced to the junction of the superior articulating process with the transverse process at the designated medial branch segment.? Preceded by negative aspiration, the above-mentioned injectate was placed in 1 mL aliquots.? The procedure was repeated at left L3, 4.? The needle was removed and insertion site was covered. The same procedure, at the same levels, was completed on the right side. The patient was taken to the postprocedural recovery area and monitored for an appropriate length of time before found suitable for discharge in the company of a responsible adult. Anesthesia: Local Surgeon: Aaron Mosqueda Pathology: none sent Condition: stable Disposition: no change
== END 2025-05-14 12:40 | disposition home or self-care (01) ==
PROVIDERS: PCP Nurse Practitioner Family; Visit Provider Anesthesiology
DX: M47.816 Spondylosis without myelopathy or radiculopathy, lumbar region (principal); G89.29 Other chronic pain
CPT/HCPCS: 64493; 64494; J0665

== ENCOUNTER 2025-05-16 14:49 | Outpatient (OUT) | payer BC, SELFPAY ==
--- OUTSIDE RECORDS SUMMARY | 2025-05-16 14:52 | XMS_ITS | Clinical Summary ---
Author Organization Contractually [facility] tem Address [id number] [address] [place] [address] Care Team Providers Care Pt Escort Name Role Phone Unavailable Primary Care Provider Unavailabl e Social History Tobacco UseTypesPacks/DayYears UsedDateSmoking Tobacco: Never AssessedChildcare AnswerDate TtfiammdJiwxoudgoDvoaisi89/12/2019EmploymentAnswerDate Recorded ZnenjhhdylDmqwrft86/12/2019CommentsUnknownSex and Gender Information ValueDate RecordedSex Assigned at BirthNot on fileLegal SslZrqfry54/06/2015 11:23 AM EDTGender IdentityNot on fileSexual OrientationNot on file Plan of Treatment Not on file Medical Devices Not on file
--- OUTSIDE RECORDS SUMMARY | 2025-05-16 14:52 | XMS_ITS | Clinical Summary ---
Author Organization [facility] Address [address] [place] [address] Care Team Providers Care Film Vault Supervisor Name Role Phone Osvaldo Browne MD Primary Care Provider [phone] Allergies Active AllergyReactionsCriticalityNoted DateCommentsAmoxicillin-Pot Clavulanate Wfcgzusy05/19/2024 Other Reaction(s): dizziness WihyqyoaxeecJymwovhr37/20/2023Penicillin BKfecZui37/22/2025 Medications MedicationSigDispense QuantityRefillsLast FilledStart DateEnd DateStatus albuterol HFA 90 mcg/act inhaler TAKE 2 PUFFS BY MOUTH EVERY 4 TO 6 HOURS CMQGRJ265Active baclofen (Lioresal) 10 MG tablet TAKE ONE [...] evening and 600 mg before bedtime.Active HYDROcodone-acetaminophen ([place]) 7.5-325 MG tablet TAKE ONE TABLET BY [...] 5012/19/2025ctive Active Problems ProblemNoted DateDiagnosed DateAcute asthma mrkaqquizsqi78/17/2025ronchitis 03/16/2025rushing injury of fifth toe of left foot03/16/2025Encounter for prophylactic measures, govkltxtfis45/17/4817Mcorypebthvb19/17/2025Impaired mobility and ADLs12645Uzyiroxneqkc42/17/4723Jelfojpcytzl76/17/2025Low serum qnckyvtszk84/17/4983Gfizsswvttmoou91/17/2025Panic hxwdneb9303/16/2025Pneumonia due to COVID-19 virus03/16/2025Postoperative umqlxs6903/16/2025Postoperative pain after spinal yvcixod9303/16/2025Right foot drop03/16/2025Lumbar radiculopathy 03/16/2025Hallux valgus (acquired), left foot12/13/2024 Encounters DateTypeDepartmentCare TpwoYvlrffgukzn61/25/2025 3:50 PM ESTOffice Visit [facility] [address] [place] [address] Renu Beltrán MD Chronic maxillary sinusitis (Primary Dx)04/24/2025amboo flowsheet [facility] [address] [place] [address] Renu Beltrán MD 04/24/20256843Bfddol28/17/2025 11:30 AM EDTOffice Visit [facility] [address] [place] [address] Renu Beltrán MD Chronic maxillary sinusitis (Primary Dx); Foreign body in nose, initial hzcacpdmu18/17/2025amboo flowsheet [facility] [address] [place] [address] Renu Beltrán MD 03/16/20257595Nckoay51/13/2025Orders Only [facility] [address] [place] [address] Renu Beltrán MD 03/08/2025linisync Result Encounter [facility] External Department Unsolicited Renu Beltrán MD 03/08/2025Orders Only [facility] [address] [facility] [address] [place] [phone] Renu Beltrán MD 03/02/2025linisync Result Encounter [facility] External Department Unsolicited Renu Beltrán MD 03/02/2025linisync Result Encounter [facility] External Department Unsolicited Renu Beltrán MD 03/02/2025linisync Result Encounter [facility] External Department Unsolicited Renu Beltrán MD 02/26/2025 3:20 PM EDTOffice Visit [facility] [address] [place] [phone] Renu Beltrán MD Chronic maxillary sinusitis (Primary Dx)02/26/2025amb flowsheet [facility] [address] [place] [address] Renu Beltrán MD 02/26/20259402Kgyofl12/19/2025Clinisync Result Encounter [facility] External Department Unsolicited Renu [...] Recorded Sex Assigned at BirthNot on fileLegal NegCbouwy71/15/2023 6:48 PM EDTGender IdentityNot on fileSexual OrientationNot on file Last Filed Vital Signs Vital SignReadingTime TakenCommentsBlood Jfudvqhl943/7011 3:22 PM EST Iisyf080404/24/2025 3:22 PM ESTTemperature--Respiratory Rate--Oxygen Saturation-- Inhaled Oxygen Concentration--Brkpbx84.1 kg (214 lb)04/24/2025 3:22 PM ESTHeight 160 cm (5' 3 )04/24/2025 3:22 PM ESTBody Mass Index37.9104/24/2025 3:22 PM EST Plan of Treatment Health MaintenanceDue DateLast DoneCommentsCT Zfksflulbgys48/05/1969Colonoscopy 1968Colorectal Cancer Huzujpmre34/05/1969FIT-DNA1968FIT1968 FOBT1968 7373Zrudipqflfnhw43/05/1969Pap Smear1989Cervical Cancer Dsetlgmnr13/05/1999HPV/Dgwcbb9910/02/19983873Rpovsojmg50/05/2009COVID-19 Vaccine ( season)/04/2021, 10/12/2020Influenza Vaccine (#1)2025 05/23/2020, 03/22/2019Pneumococcal Vaccine: Pediatrics (0 to 5 Years) and At- Risk Patients (6 to 64 Years)Aged OutNo longer eligible based on patient's age to complete this topic Procedures Procedure NamePriorityDate/TimeAssociated DiagnosisCommentsSCANNED LABSRoutine 03/08/2025 3:37 PM EDTAEROBIC YNNTZRXUfqsuaa06/09/2025 10:00 AM EDT ANAEROBIC AODBUWXKdjwebp09/09/2025 10:00 AM EDT XR CHEST 2V1 9:02 AM EDT C[facility] BJJUKyegbmx83/03/2025 8:35 AM EDT SRMCOH PROTHROMBIN TIME INR W/O RLPOKdusapn40/03/2025 8:35 AM EDT ALL CBC WITH AUTO JYOCSkgootq07/03/2025 8:35 AM EDT ECG 12-LEAD03/02/2025 8:[address] SINUS WO CON02/16/2025 8:13 AM EDT from Last 3 Months Results * SCANNED LABS (03/08/2025 3:37 PM EDT) Narrative Authorizing ProviderResult TypeResult StatusHiladmitri Beltrán MDGRISELL [facility] CHG PERFORMABLESFinal Result * ANAEROBIC CULTURE (03/08/2025 10:00 AM EDT)ComponentValueRef RangeTest Method Analysis TimePerformed AtPathologist SignatureANAEROBIC CULTURE ??Anaerobic Culture TBHANAEROBIC CULTURESpecimen has been received and testing has been initiated. TBHANAEROBIC CULTUREOrganism: Fusobacterium nucleatum :TBHANAEROBIC CULTURE *ABNORMAL*TBHANAEROBIC CULTUREScant growthTBHANAEROBIC CULTUREStudies at [facility] have confirmed theTBHANAEROBIC CULTUREobservations of others who have demonstrated thatTBHANAEROBIC CULTUREFusobacterium species are routinely susceptible toTBHANAEROBIC CULTURECefoxitin, Chloramphenicol, Clindamycin, MetronidazoleTBHANAEROBIC CULTUREand Penicillin.TBHANAEROBIC CULTURE Fusobacterium nucleatumTBHANAEROBIC CULTURE ??O:FUSNUC Isolated TBHSpecimen (Source)Anatomical Location / LateralityCollection Method / Volume Collection TimeReceived Time03/08/2025 10:00 AM EDT1 12:17 PM EDT Narrative [facility] - 03/13/2025 2:09 PM EDT RIGHT MAXILLARY SINUS (SURGICAL SPECIMEN) Authorizing ProviderResult TypeResult StatusHilaVA [facility] BLOOD ORDERABLESFinal ResultPerforming OrganizationAddressCity/State/ZIP CodePhone Number [facility] * (ABNORMAL) AEROBIC CULTURE (03/08/2025 10:00 AM [...] growthTBHAEROBIC CULTURETBHAEROBIC CULTURENot applicableTBHAEROBIC CULTUREStaphylococcus epidermidisTBHAEROBIC CULTURE ??O:JALILI Isolated TBHAEROBIC CULTUREPerformed at: [facility] HOSPITALROBIC [id number] [place], [place] [id number] CULTURELab Director: Collin Rodriguez PhD, Phone: [phone] CULTURE Organism: ??2.1 Antibiotic ? Interpretation ? [...] SINUS (SURGICAL SPECIMEN) Authorizing ProviderResult TypeResult StatusHilary Roma MDLAB BLOOD ORDERABLESFinal ResultPerforming OrganizationAddressCity/State/ZIP CodePhone Number [facility] * XR CHEST 2V (03/02/2025 9:02 AM EDT)Anatomical RegionLateralityModalityOther Specimen (Source)Anatomical Location / LateralityCollection Method / Volume Collection TimeReceived Time03/02/2025 9:02 AM EDT Narrative 03/02/2025 9:05 AM EDT [facility] ?[address] ? [place] [address] ?XRay Report ? Signed ? Patient: KIM HILL L ?MR#: [id number] ?? : 1970 ?Acct:[id number] ?? Age/Sex: 54 / F ?ADM Date: 03/02/25 ?? Loc: PST ? Attending Dr: Renu Beltrán M.D. ? Ordering Physician: Renu Beltrán M.D. ?? Date of Service: 03/02/25 ?? Procedure(s): XR chest 2V ?? Accession Number(s): [id number] ? cc: JOSEPH MARK ; Renu Beltrán M.D. ? [facility] ? [address] ? [place] [address] ? Patient Name: ?? KIM HILL ? MRN: [facility]:[id number] ? date: 1970 ?Sex: F ?? Assigned Patient Location: PST ?? Current Patient Location: PST ?? Accession/Order Number: [id number] ?? Exam Date: 03/02/2025 ??08:50 ?Report Date: [...] Dictation Location: RADIO-PC-24 ? Electronically authenticated by: [id number] ??Y ?? Date: 03/02/2025 ??09:02 ? Dictated By: ?Tate Alva M.D. ? Signed By: ?03/02/25904 ? DD/ 0902 ? TD/TT: ? Razor Sharpener: Procedure Note Radiology, Radiologist, - 03/02/2025 [place] [address] XRay Report Signed Patient: KIM HILL R#: [id number] : 1970Acct:[id number] Age/Sex: 54 / FADM Date: 03/02/25 Loc: PST Attending Dr: Renu Beltrán M.D. Ordering Physician: Renu Beltrán M.D. Date of Service: 03/02/25 Procedure(s): XR chest 2V Accession Number(s): [id number] cc: JOSEPH MARK ; Renu Beltrán M.D. The [address] [address] Patient Name: KIM HILL MRN: [id number] date: 1970 Sex: F Assigned Patient Location: [facility] Current Patient Location: [facility] Accession/Order Number: [id number] Exam Date: 03/02/2025 08:50 Report Date: 03/02/2025 [...] Alva M.D. 03/02/2025 9:02 AM Dictation Location: [place] [address] Electronically authenticated by: [id number] Y Date: 9:02 Dictated By: Tate Alva M.D. Signed By:03/02/25904 DD/ 1 TD/TT: Razor Sharpener: Authorizing ProviderResult TypeResult StatusHilary H Timmis MDCLINISYNC IMAGING Final Result * SRMCOH PROTHROMBIN [...] H Timmis MDCLINISYNCFinal ResultPerforming OrganizationAddressCity/State/ZIP CodePhone Number [facility] * [facility] APTT (03/02/2025 8:35 AM EDT)ComponentValueRef RangeTest MethodAnalysis TimePerformed AtPathologist SignaturePARTIAL THROMBOPLASTIN TIME26.722.3 - 36.2 secTBHSpecimen (Source)Anatomical Location / LateralityCollection Method / VolumeCollection TimeReceived Time03/02/2025 8:35 AM EDT1 8:45 AM EDT Narrative [facility] - 03/02/2025 9:10 AM EDT Authorizing ProviderResult TypeResult StatusHilary H Timmis MDCLINISYNCFinal ResultPerforming OrganizationAddressCity/State/ZIP CodePhone Number [facility] * (ABNORMAL) ALL CBC WITH AUTO DIFF (03/02/2025 8:35 AM EDT)ComponentValueRef RangeTest MethodAnalysis TimePerformed AtPathologist SignatureTBH WBC9.14.0 - 11.0 10 3/uLTBHTBH RBC3.71(L)4.20 - 5.40 10 6/uLTBHTBH HGB12.212.0 - 16.0 g/dL TBHTBH HCT36.936.0 - 48.0 %TBHTBH MCV99.5(H)81.0 - 99.0 fLTBHTBH MCH32.926.7 - 34.0 pgTBHTBH MCHC33.129.9 - 35.2 g/dLTBHTBH RDW11.911.0 - 15.0 %TBHTBH OSC978 150 - 450 10 3/uLTBHTBH MPV9.79.5 - [...] H Timmis MDCLINISYNCFinal ResultPerforming OrganizationAddressCity/State/ZIP CodePhone Number [facility] * ECG 12-LEAD (03/02/2025 8:26 AM EDT)Anatomical RegionLateralityModalityOther Specimen (Source)Anatomical Location / LateralityCollection Method / Volume Collection TimeReceived Time03/02/2025 8:26 AM EDT Narrative 03/02/2025 6:45 PM EDT [facility] ?[address] ? [place] [address] ? Electrocardiograph Report ? Signed ? Patient: KIM HILL ?MR#: [id number] ?? : 1970 ?Acct:[id number] ?? Age/Sex: 54 / F ?ADM Date: 03/02/25 ?? Loc: PST ? Attending Dr: Renu Beltrán M.D. ? Ordering Physician: Renu Beltrán M.D. ?? Date of Service: 03/02/25 ?? Procedure(s): ECG 12 lead ?? Accession Number(s): [id number] ? cc: ?[facility] ? Test Date: ?2025-03-02 ?? Pat Name: ? KIM HILL ?Department: ? Room: ? - ?? Gender: ? Female ? 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 : ?1970 ? Requested By: RENU GREGORYMIS ?? Order Number: [id number] ?Reading MD: ?? RENE ??Baljinder COSTELLO ? Measurements ?? Intervals ?[place] ? Rate: ? 80 ? P: ?35 ?? MO: ? 158 ?QRS: ?11 ?? QRSD: ? [...] Dictated By: ?RENE COSTELLO ? Signed By: ?10/03/25 1845 ? DD/ 5 ? TD/TT: ? Razor Sharpener: Procedure Note Radiology, Radiologist, - 03/02/2025 [place] [address] Electrocardiograph Report Signed Patient: KIM HILL LMR#: [id number] : 1970Acct:[id number] Age/Sex: 54 / FADM Date: 03/02/25 Loc: PST Attending Dr: Renu Beltrán M.D. Ordering Physician: Renu Beltrán M.D. 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 Measurements Intervals [place] Rate: 80 P: 35 MO: 158 QRS: 11 QRSD: 91 T: 42 QT: 355 QTc: 410 Interpretive Statements SINUS RHYTHM LOW QRS VOLTAGE IN PRECORDIAL LEADS [QRS DEFLECTION < 1.0 mV IN CHESTLEADS] Abnormal ECG Compared to ECG 04/27/2024 03:24:55 Low QRS voltage now present Sinus tachycardia no longer present Electronically Signed On 03-02-2025 18:45:07 EDT by RENE COSTELLO M.D. Dictated By: RENE COSTELLO Signed By:03/02/25 1845 DD/ 08 TD/TT: Razor Sharpener: Authorizing ProviderResult TypeResult StatusHilary Xander Beltrán MDCLINISYNC IMAGING Final Result * CT SINUS WO CON (02/16/2025 8:13 AM EDT)Anatomical RegionLateralityModality OtherSpecimen (Source)Anatomical Location / LateralityCollection Method / VolumeCollection TimeReceived Time02/16/2025 8:13 AM EDT Narrative 02/16/2025 8:16 AM EDT [facility] ?[address] ? [place] [address] ? CT Scan Report ? Signed ? Patient: NOE,KIM L ?MR#: [id number] ?? : 1970 ?Acct:[id number] ?? Age/Sex: 54 / F ?ADM Date: /18/25 ?? Loc: CT ? Attending Dr: Renu Beltrán M.D. ? Ordering Physician: Renu Beltrán M.D. ?? Date of Service: 02/15/25 ?? Procedure(s): CT sinus wo con ?? Accession Number(s): [id number] ? cc: JOSEPH MARK ? [facility] ? [address] ? [place] [address] ? Patient Name: ?? KIM Oglesby NOE ? MRN: [facility]:[id number] ? date: 1970 ?Sex: F ?? Assigned Patient Location: CT ?? Current Patient Location: ? Accession/Order Number: [id number] ?? Exam Date: 02/15/2025 ??15:20 ?Report Date: [...] Dictation Location: RADIO-PC-30 ? Electronically authenticated by: [id number] ??Y ?? Date: 02/16/2025 ??08:13 ? Dictated By: ?Shalonda Mckee M.D. ? Signed By: ?02/16/25 0816 ? DD/ 0813 ? TD/TT: ? Razor Sharpener: Procedure Note Radiology, Radiologist, MD - 02/16/2025 [place] [address] CT Scan Report Signed Patient: KIM HILL LMR#: [id number] : 1970Acct:[id number] Age/Sex: 54 / FADM Date: 02/15/25 Loc: CT Attending Dr: Renu Beltrán M.D. Ordering Physician: Renu Beltrán M.D. Date of Service: 02/15/25 Procedure(s): CT sinus wo con Accession Number(s): [id number] cc: JOSEPH MARK [place] [id number] Patient Name: KIM HILL MRN: [id number] date: 1970 Sex: F Assigned Patient Location: CT Current Patient Location: Accession/Order Number: [id number] Exam Date: 02/15/2025 15:20 Report Date: 02/16/2025 [...] Mckee M.D. 02/16/2025 8:13 AM Dictation Location: [place] Electronically authenticated by: [id number] Y Date: 508:13 Dictated By: Shalonda Mckee M.D. Signed By:02/16/25815 DD/ 2 TD/TT: Razor Sharpener: Authorizing ProviderResult TypeResult StatusHilary Xander Beltrán MDCLINISYNC IMAGING Final Result from Last 3 Months Insurance Care Teams Team MemberRelationshipSpecialtyStart [place] [address] [place] [address] PCP - GeneralCardiology12/05/24
--- OUTSIDE RECORDS SUMMARY | 2025-05-16 14:52 | XMS_ITS | Clinical Summary ---
Author Organization [facility] Address [address] [place] [address] Care Team Providers Care Slip Presser Name Role Phone Aby Yu CNP Unavailable [phone] Allergies Active AllergyReactionsCriticalityNoted DateCommentsPenicillinsRash,Diarrhea Mmjwoa8006/09/2024 Medications MedicationSigDispense QuantityRefillsLast FilledStart DateEnd DateStatus gabapentin [...] 10 mg by mouth daily at bedtime.Active xiqqcnzrfri-pkaqrvpvd-jcpwpfuk (TRELEGY ELLIPTA) 100-62.5-25 mcg inhalation powder Inhale [...] drink = 0.6 oz pure alcohol)PHQ-2AnswerDate RecordedPHQ-2 fcrdo007rea Deprivation IndexAnswerDate RecordedNational Score (1-100), lower number is lower risk61 06/09/2024State Score (1-10), lower number is lower foma74206/09/2024Data from: https://www.neighborhoodatlas.medicine.[facility]/. Last address used for wnkw[address] [facility]06/09/2024CommentsNoSex and Gender InformationValueDate RecordedSex Assigned at BirthNot on fileLegal SexFemale 07/20/2019 1:04 PM ESTGender IdentityNot on fileSexual OrientationNot on file Last Filed Vital Signs Vital SignReadingTime TakenCommentsBlood Aazmxaqs192/9504 2:59 PM EDT Sagzc4896 2:59 PM EDTTemperature--Respiratory Kzqm079209/26/2024 2:59 PM EDTOxygen Yhnzckowpl17%09/26/2024 2:59 PM EDTInhaled Oxygen Concentration-- Bxjaid39.7 kg (215 lb 4.5 oz)09/26/2024 2:59 PM MWJNjxxiy345 cm (5' 3 ) 09/26/2024 2:59 PM EDTBody Mass Index38.1404 2:59 PM EDT Plan of Treatment Health MaintenanceDue DateLast DoneCommentsAnxiety Juyzyviyk79/05/1987Depression Xiblkxvmy05/05/1987HIV Xvgxyzfub85/05/1987Hepatitis C Boxeydmqa94/05/1987 DTaP,Tdap,Td Vaccine (1 - Tdap)10/03/1987Hepatitis B Vaccine (1 of 3 - 19+ 3- dose series)10/03/1987Pneumococcal Vaccine: 50+ (1 of 2 - PCV)10/03/1987Cervical Cancer Byfncbhds81/05/1990Mammogram Bvgdxpabp92/05/2009CT Dsnaxodxokpj71/05/2014 Cologuard (FIT-DNA)10/02/20137008Rqfnphlwtns26/05/2014Colorectal Cancer Screening 2013Diabetes Goxczdpjy19/05/2014Fecal Occult Blood2013Lipid Jdmzjicvw82/05/4106Paciqkeqdhzid45/05/2014Shingrix Vaccine (1 of 2)2018 Covid-19 Vaccine (3 - season)/04/2021, 10/12/2020Influenza Vaccine (#1), 03/22/2019RSV Vaccine (1 - 1-dose 75+ series) 10/03/2043 Insurance Care Teams Team MemberRelationshipSpecialtyStart DateEnd Date Aby Yu CNP [address] [place] [address] ReferringFamily Mhadrlyk49/3/24
--- OUTSIDE RECORDS SUMMARY | 2025-05-16 14:52 | XMS_ITS | Clinical Summary ---
Author Organization [facility] Address [address], [address] [place] [address] Care Team Providers Care Medical Library Assistant Name Role Phone Aby Yu APRN - MANAGER SECURITY Primary Care Pro vider Allergies Active AllergyReactionsCriticalityNoted DateCommentsAmoxicillin-Pot Clavulanate Ydsrunow09/19/2024lavulanic DgwmUykuajs01/17/2406MmqslfvldasFirfoby31/17/2021 Medications MedicationSigDispense QuantityRefillsLast FilledStart DateEnd DateStatus pantoprazole [...] tablet Take 1 tablet by mouth every cisqcli8209/14/2023ctive TRELEGY ELLIPTA 200-62.5-25 MCG/ACT AEPB inhaler INHALE [...] InformationValueDate RecordedSex Assigned at BirthNot on fileLegal NucYobinn36/10/2013 2:48 PM EST Gender IdentityNot on fileSexual OrientationNot on file Last Filed Vital Signs Vital SignReadingTime TakenCommentsBlood Lmriubyu092/8007 9:39 AM EDT Tphia760212/17/2023 9:39 AM EDTTemperature--Respiratory Ueqf436712/17/2023 9:39 AM EDTOxygen Saturation--Inhaled Oxygen Concentration--Poogsa38.9 kg (218 lb) 12/17/2023 9:39 AM JUVZtdece509 cm (5' 3 )12/17/2023 9:39 AM EDTBody Mass Index 38.6207 9:39 AM EDT Plan of Treatment Health MaintenanceDue DateLast DoneCommentsDepression Hnsawu8010/02/1980HIV screen 10/03/1983Hepatitis C hcahom1410/02/1986DTaP/Tdap/Td vaccine (1 - Tdap)10/03/1987 Hepatitis B vaccine (1 of 3 - 19+ 3-dose series)10/03/1987Breast cancer screen 10/02/20088461Arxpfg16/05/1133Olduxsydawl86/05/2014Colorectal Cancer Screen 2013FIT/FOBT: Average risk2013Fecal-DNA (Cologuard): Average risk 2013Sigmoidoscopy/CT sxjcisgmtynu13/05/2014Pneumococcal 50+ years Vaccine (1 of 1 - [...] Date Aby Yu, YOVANI - [address] [place] [address] PCP - GeneralFaally Medicine10/07/23
--- OUTSIDE RECORDS SUMMARY | 2025-05-16 14:52 | XMS_ITS | Patient Health Record ---
Author Organization [facility] Address [address] [place] [address], [facility] [place] [address] Care Team Providers Care Cq Developer Name Role Phone Stephen Estevez Unavailable [phone] Allergies Allergen (clinical drug ingredient) Drug/Non Drug Allergy documented on EMR Reaction Allergy Type Onset Date Status PenicillinUnknownDrug AllergyActiveAlbuterol-BudesonideUnknownDrug AllergyActive Reason For Referral No Information Medications Medication SIG (Take, Route, Frequency, Duration) Notes Start Date End Date Status Lisinopril 10 MG Tablet Oral; Duration: 90 Days ActivePantoprazole Sodium 40 MG Tablet Delayed ReleaseTAKE 1 TABLET BY MOUTH EVERY DAY Oral; Duration: 90 DaysActiveTrelegy Ellipta 200-62.5-25 MCG/ACT Aerosol Powder Breath ActivatedInhalation; Duration: 90 DaysActiveZepbound 5 MG/0.5ML Solution Auto-injector0.5 mL SubcutaneousActiveAlbuterol Sulfate HFA 108 (90 Base) MCG/ACT Aerosol SolutionTAKE 2 PUFFS BY MOUTH EVERY 4 TO 6 HOURS NEEDED Inhalation; Duration: 16 DaysActiveMontelukast Sodium 10 MG TabletTAKE 1 TABLET BY MOUTH EVERY DAY IN THE EVENING Oral; Duration: 90 DaysActive Clotrimazole 10 MG TrocheMouth/Throat; Duration: 20 DaysActiveIpratropium- Albuterol 0.5-2.5 (3) MG/3ML SolutionUSE 1 VIAL PER NEBULIZER 3 TIMES DAILY Inhalation; Duration: 10 DaysActiveAmitriptyline HCl 50 MG Tablet1 tablet at bedtime Orally Once a dayActiveDiclofenacActiveFamotidine 40 MG Tablet1 tablet Orally Once a dayActiveTriamcinolone Acet & AnesthActiveVitamin B8Gweaqf Neurontin 600 MG Tablet1 tablet Orally Once a dayActiveCetirizine HCl 10 MG TabletTAKE 1 TABLET (10 MG) BY MOUTH DAILY NEEDED FOR ALLERGIES Oral; Duration: 90 DaysActive Social History Section Notes: Current tobacco use. Social alcohol use. Encounters Encounter Location Date Provider Diagnosis [facility], [facility] [address], [place] [address] 04/24/2025 Stephen Estevez Right foot drop M21.371 ; Achilles tendinosis of right ankle M67.873 and Partial tear of right Achilles tendon, initial encounter S86.011A Assessments Encounter Date Diagnosis (ICD Code) Assessment Notes Treatment Notes Treatment Clinical Notes Section Notes 04/24/2025 Achilles tendinosis of right ank le (ICD-10 - M67.873) 04/24/2025Right foot drop (ICD-10 - M21.371) Patient was seen and evaluated. Patient education provided and all questions answered to satisfaction. I recommended nonsurgical treatment at this time. Treatment advices included: - RICE therapy as well as shoe and activity modification - Physical therapy order was provided with modalities particularly dry needling - Handout provided and strongly recommended daily home calf stretching program - Discussed medications and potential side effect. Medication(s) recommended/prescribed: OTC voltaren. I also discussed week course of steroids however she already has a prescription for this and uses only when back pain is severe - Imaging ordered: foot and ankle were ordered and reviewed. No acute bony abnormality. Alignment is WNL of ankle and hindfoot. Joint spaces are largely preserved I briefly discussed potential need for Achilles lengthening/Gastroc recession with Achilles debridement however recommended nonsurgical treatments be exhausted. She is happy with the plan and relatesher goal is to continue working without restrictions for as long as possible. 04/24/2025Partial tear of right Achilles tendon, initial encounter (ICD-10 - S86.011A) Plan Of Treatment Next Appt Details Provider Name:Stephen LOU Giovanny ernst, 06/14/2025 03:15:00 PM, [address] [facility], [address], [place], [address], Insurance Providers Payer Name Payer Address Payer Phone Subscriber Number Group Number Insured Name Patient Relationship to Insured Coverage Start Date Coverage End Date [facility] and [facility] [address] [place] [address] [id number] [place] - patient is the insured Medical (General) History Medical History History ICD Code Arthritis AsthmaHigh Blood PressureSurgical History Surgery Date(Month/Year) L4-5 Lumbar Fusion Hysterectomy
--- NOTE | 2025-05-16 14:53 | PM.CN ---
Consult Note: HPI Data of Consult Patient: known to practice within the last 3 years Consult date: 05/03/25 Requesting Physician: Day Fleming NP Primary Care Provider: JOSEPH MARK Consult Narrative Reason for consult: f/u Narrative: Kim Hill a pleasant 54 year old female presents to office for evaluation of chronic low back and bilateral sij injection, post lumbar fusion L4-5 L5-S1. Patient rating pain today 5/10 increasing to 10/10 with standing and activity. Patient finds mild to moderate benefit with norco 7.5-325mg TID PRN, gabapentin 600mg TID, baclofen 10mg BID, mobic 15mg daily without side effects. Pt has a hx of multilevel lumbar fusion 3 years ago but continues to have moderate to severe pain. recently underwent bialteral L2-3 L3-4 facet medial branch block #1 and #2 with >80% improvement in pain and functional ability for 12 hours. preop pain up to 10/10 post op pain 1/10 with activity. cc:: CC: Day Fleming NP [facility] Medical History (Updated 03/02/25 @ 10:43 by Marissa Moran RN) COPD (chronic obstructive pulmonary disease) ?J44.9 - Chronic obstructive pulmonary disease, unspecified (ICD-10) Chronic fatigue ?R53.82 - Chronic fatigue, unspecified (ICD-10) Spinal stenosis ?M48.00 - Spinal stenosis, site unspecified (ICD-10) Foot drop, right ?M21.371 - Foot drop, right foot (ICD-10) Vitamin D deficiency ?E55.9 - Vitamin D deficiency, unspecified (ICD-10) Generalized anxiety disorder ?F41.1 - Generalized anxiety disorder (ICD-10) Prediabetes ?R73.03 - Prediabetes (ICD-10) Cardiomegaly ?I51.7 - Cardiomegaly (ICD-10) Hx MRSA infection ?Z86.14 - Personal history of Methicillin resistant Staphylococcus aureus infection (ICD-10) Hallux valgus (acquired), left foot ?M20.12 - Hallux valgus (acquired), left foot (ICD-10) Sinusitis ?J32.9 - Chronic sinusitis, unspecified (ICD-10) Asthma exacerbation ?J45.901 - Unspecified asthma with (acute) exacerbation (ICD-10) Influenza ?J11.1 - Influenza due to unidentified influenza virus with other respiratory manifestations (ICD-10) Obesity ?E66.9 - Obesity, unspecified (ICD-10) Osteoarthritis ?M19.90 - Unspecified osteoarthritis, unspecified site (ICD-10) Rheumatoid arthritis ?M06.9 - Rheumatoid arthritis, unspecified (ICD-10) Anxiety ?F41.9 - Anxiety disorder, unspecified (ICD-10) Acid reflux ?K21.9 - Gastro-esophageal reflux disease without esophagitis (ICD-10) Smoker ?F17.200 - Nicotine dependence, unspecified, uncomplicated (ICD-10) Asthma ?J45.909 - Unspecified asthma, uncomplicated (ICD-10) Heart murmur ?R01.1 - Cardiac murmur, unspecified (ICD-10) HTN (hypertension) ?I10 - Essential (primary) hypertension (ICD-10) Surgical History (Updated 05/08/25 @ 13:37 by Annamarie Gardner) H/O sinus surgery ?Z98.890 - Other specified postprocedural states (ICD-10) H/O radiofrequency ablation (RFA) of nerve of lumbar spine ?Z98.890 - Other specified postprocedural states (ICD-10) History of lymph node excision ?Z98.890 - Other specified postprocedural states (ICD-10) History of hysterectomy ?Z90.710 - Acquired absence of both cervix and uterus (ICD-10) History of lumbar fusion ?Z98.1 - Arthrodesis status (ICD-10) Family History Aunt Family history of cancer Mother Family history of diabetes mellitus Family history of hypertension Father Family history of diabetes mellitus Family history of hypertension Social History (Updated 03/02/25 @ 07:55 by Marissa Moran RN) Within the past year, how often did you have a drink containing alcohol: monthly or less Smoking status: Current every day smoker Non-prescribed substance use: denies use 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 Highest level of school completed/degree received: GED or equivalent Are you now , , , , never or living with a partner: In a typical week, how many times do you talk on the telephone with family, friends, or neighbors: 3 or more times per week How often do you get together with friends or relatives: 3 or more times per week Little interest or pleasure in doing things: not at all Feeling down, depressed, or hopeless: not at all Feel stressed/tense/nervous/anxious/difficulty sleeping: not at all Do you think of yourself as: straight/heterosexual Gender Identity: female Meds Home Medications and Allergies Home Medications ?Medication ?Instructions ?Recorded ?Confirmed ?Type lisinopril 10 mg tablet 10 mg PO DAILY 11/12/22 05/14/25 History albuterol 90 mcg-budesonide 80 2 inh inhalation BID PRN sob 04/27/24 05/14/25 History mcg/actuation HFA aerosol inhaler (Airsupra) montelukast 10 mg tablet 10 mg PO DAILY 04/27/24 05/14/25 History (Singulair) gabapentin 600 mg tablet 600 mg PO TID #90 tabs 07/11/24 05/14/25 Rx meloxicam 15 mg tablet 15 mg PO DAILY #30 tabs 07/11/24 05/14/25 Rx hydrocodone 7.5 mg-acetaminophen See Rx Instructions .Route 11/02/24 05/14/25 Rx 325 mg tablet .COMPLEX PRN pain #70 tabs baclofen 10 mg tablet 10 mg PO TID PRN muscle spasm #270 02/01/25 05/14/25 Rx tabs cetirizine 10 mg tablet 10 mg PO DAILY PRN allergy symptoms 02/28/25 05/14/25 History cyanocobalamin (vitamin B-12) 500 500 mcg PO DAILY 02/28/25 05/14/25 History mcg lozenges fluticasone fur. 200 mcg-umeclid 1 inh inhalation Q24H 02/28/25 05/14/25 History 62.5 mcg-vilant 25 mcg inhalat.powder (Trelegy Ellipta) fluticasone propionate 50 2 spray intranasal Q12H 02/28/25 05/14/25 History mcg/actuation nasal spray,suspension ipratropium 0.5 mg-albuterol 3 mg 3 ml inhalation Q8H PRN shortness 02/28/25 05/14/25 History (2.5 mg base)/3 mL nebulization of breath or wheezing soln pantoprazole 40 mg tablet,delayed 40 mg PO DAILY 02/28/25 05/14/25 History release hydrocodone 7.5 mg-acetaminophen See Rx Instructions .Route 04/03/25 04/23/25 Rx 325 mg tablet .COMPLEX PRN pain #70 tabs acetylcysteine 600 mg capsule (NAC) 600 mg PO DAILY 04/23/25 05/14/25 History black seed 4.5 gram/5 mL oral oil g PO 05/14/25 History tumeric QDAY 05/14/25 History Allergies Allergy/AdvReac Type Severity Reaction Status Date / Time amoxicillin (From Augmentin) Allergy Unknown Rash Verified 05/14/25 12:10 clavulanic acid (From Allergy Unknown Rash Verified 05/14/25 12:10 Augmentin) Penicillins Allergy Unknown RASH Verified 05/14/25 12:10 Exam Constitutional Documenting provider has reviewed patient's vital signs: yes Common normals: no apparent distress, oriented x3 and alert General appearance: cooperative HENMT Common normals: normocephalic, hearing grossly normal bilaterally and moist oral mucous membranes Head and scalp: normocephalic Eye Common normals: PERRL Pupil: PERRL Neck & C-Spine Common normals: full ROM General: normal visual inspection Chest Common normals: inspection of chest normal Respiratory Common normals: normal respiratory effort, no retractions and no use of accessory muscles Back & Pelvis Lumbar spine/lower back: ROM limited, pain with ROM and lumbar spinal tenderness Lumbar spinal tenderness location: L1, L2 and L3 Other: positive facet loading bilaterally strength 5/5 in BLE Neuro Common normals: oriented x3 Sensorium/orientation: alert Psych Common normals: mental status grossly normal, thought process normal, cooperative, affect normal, speech normal and activity/motor behavior normal Speech: normal speech Thought process: normal thought process Results Additional Findings Additional findings: If on a controlled substance or opioids, I have checked an [place] report on this patient and there are no aberrancies noted in the prescribing history.??If on a controlled substance or opioid a drug screen was completed and reviewed within the last year, and if there has not been a drug screen completed we ordered one today to monitor higher risk, state monitored pain medication use. As part of providing excellent, safe, comprehensive care, the following was completed at our patient's visit: 1. A medication reconciliation and review to ensure accurate knowledge of current/active medications, including asking our patients to inform us about any dnnm-swk-rpsdkfy medications or herbal remedies/nutritional supplements/alternative remedies. 2. A review to specifically ensure our patients have had annual screening for screening for depression, screening for tobacco use, and screening for unhealthy alcohol use. For concerning screenings had a discussion with the patient, provided patient education, and recommended follow-up with primary care provider when appropriate. If patient noted with a risk of falling, they received education on strength, gait, and balance training to prevent future risk of falling. Portions of this note may have been carried over from the previous visit and updated as appropriate. Please note this office utilizes paper charting in addition to the electronic medical record. A list of current medications, vitals, and PMH is available there as the clinical staff outside of myself do not have access to [employer] charting during the clinic day operations. As part of providing quality comprehensive care the current medications, vitals, and PMH were reviewed in the paper chart. Assessment and Plan Assessment and Plan (1) Lumbar spondylosis: (2) Sacroiliitis: (3) Lumbar stenosis with neurogenic claudication: (4) Failed back syndrome: (5) Chronic prescription opiate use: Plan The patient has had over 3 months of moderate to severe low back pain with functional impairment and inadequate response to conservative care including NSAIDS (unless there are contraindication such as concurrent blood thinners), multiple oral or topical pain medications, and home exercise program/physical therapy.? Patient has completed >6 weeks of guided home exercise program and/or formal physical therapy program without relief of their symptoms.? I have reviewed the imaging of the lumbar spine and no red flags were identified.? The Oswestry Disability Index was completed, and the patient scored a 53%.? bilateral L2-3 L3-4 facet medial branch RFA for facet mediated pain with 10mg po valium for anxiolysis continue HEP as tolerated continue current medications, tolerating well without side effects f/u 1 month after RFA
== END 2025-05-16 14:50 | disposition home or self-care (01) ==
LOC: PM 14:49
PROVIDERS: PCP Nurse Practitioner Family; Visit Provider Nurse Practitioner
DX: M47.816 Spondylosis without myelopathy or radiculopathy, lumbar region (principal); M46.1 Sacroiliitis, not elsewhere classified; M48.062 Spinal stenosis, lumbar region with neurogenic claudication; M96.1 Postlaminectomy syndrome, not elsewhere classified; Z79.891 Long term (current) use of opiate analgesic
CPT/HCPCS: G0463

== ENCOUNTER 2025-05-17 08:43 | Emergency (ER) | payer OTHER, SELFPAY ==
[2025-05-17 08:48] VITALS: BP 130/62; PULSE 99; TEMP 36.6; O2SAT 95; BMI 38.3
--- OUTSIDE RECORDS SUMMARY | 2025-05-17 09:07 | XMS_ITS | Clinical Summary ---
Author Organization [facility] Address [address] [place] [address] Care Team Providers Care Power And Recovery Shift Engineer Name Role Phone Osvaldo Browne MD Primary Care Provider [phone] Allergies Active AllergyReactionsCriticalityNoted DateCommentsAmoxicillin-Pot Clavulanate Udvyxsqb23/19/2024 Other Reaction(s): dizziness AqittxpirguqErownrsj88/20/2023Penicillin ZFxryBgo78/22/2025 Medications MedicationSigDispense QuantityRefillsLast FilledStart DateEnd DateStatus albuterol HFA 90 mcg/act inhaler TAKE 2 PUFFS BY MOUTH EVERY 4 TO 6 HOURS LDGCTM505Active baclofen (Lioresal) 10 MG tablet TAKE ONE [...] evening and 600 mg before bedtime.Active HYDROcodone-acetaminophen ([place]) 7.5-325 MG tablet TAKE ONE TABLET BY [...] 5012/19/2025ctive Active Problems ProblemNoted DateDiagnosed DateAcute asthma /17/2025ronchitis 03/16/2025rushing injury of fifth toe of left foot03/16/2025Encounter for prophylactic measures, kacizsqnnnr21/17/0999Hnooiojitbzj09/17/2025Impaired mobility and ADLs19306Mnawnrxtziix04/17/7633Xzyjygconhin58/17/2025Low serum qxxldevmpp57/17/9855Kcwzhfsqhcqnkb34/17/2025Panic fwcdskz9703/16/2025Pneumonia due to COVID-19 virus03/16/2025Postoperative ozqyke8603/16/2025Postoperative pain after spinal riebaez9503/16/2025Right foot drop03/16/2025Lumbar radiculopathy 03/16/2025Hallux valgus (acquired), left foot12/13/2024 Encounters DateTypeDepartmentCare UexwOjprctntszq55/25/2025 3:50 PM ESTOffice Visit [facility] [address] [place] [address] Renu Beltrán MD Chronic maxillary sinusitis (Primary Dx)04/24/2025amboo flowsheet [facility] [address] [place] [address] Renu Beltrán MD 04/24/20258420Bllbee18/17/2025 11:30 AM EDTOffice Visit [facility] [address] [place] [address] Renu Beltrán MD Chronic maxillary sinusitis (Primary Dx); Foreign body in nose, initial izdlmulmv68/17/2025amboo flowsheet [facility] [address] [place] [address] Renu Beltrán MD 03/16/20258637Mrbpof39/13/2025Orders Only [facility] [address] [place] [address] Renu Beltrán MD 03/08/2025linisync Result Encounter [facility] External Department Unsolicited Renu Beltrán MD 03/08/2025Orders Only [facility] [address] [facility] [address] [place] [phone] Renu Beltrán MD 03/02/2025linisync Result Encounter [facility] External Department Unsolicited Renu Beltrán MD 03/02/2025linisync Result Encounter [facility] External Department Unsolicited Renu Beltrán MD 03/02/2025linisync Result Encounter [facility] External Department Unsolicited Renu Beltrán MD 02/26/2025 3:20 PM EDTOffice Visit [facility] [address] [place] [address] Renu Beltrán MD Chronic maxillary sinusitis (Primary Dx)02/26/2025amb flowsheet [facility] [address] [place] [address] Renu Beltrán MD 02/26/20252246Spoxpi11/19/2025Clinisync Result Encounter [facility] Unsolicited Renu [...] Recorded Sex Assigned at BirthNot on fileLegal MhgFrrypj09/15/2023 6:48 PM EDTGender IdentityNot on fileSexual OrientationNot on file Last Filed Vital Signs Vital SignReadingTime TakenCommentsBlood Dbhthlrh200/7011 3:22 PM EST Anncc568004/24/2025 3:22 PM ESTTemperature--Respiratory Rate--Oxygen Saturation-- Inhaled Oxygen Concentration--Xkksgt34.1 kg (214 lb)04/24/2025 3:22 PM ESTHeight 160 cm (5' 3 )04/24/2025 3:22 PM ESTBody Mass Index37.9104/24/2025 3:22 PM EST Plan of Treatment Health MaintenanceDue DateLast DoneCommentsCT Ucquqhrkxguk47/05/1969Colonoscopy 1968Colorectal Cancer Sylvbqmcd03/05/1969FIT-DNA1968FIT1968 FOBT1968 6854Tvkxprzfcfktn36/05/1969Pap Smear1989Cervical Cancer Gsctyprlg01/05/1999HPV/Kjkaua3410/02/19984915Zvwkdzgnh11/05/2009COVID-19 Vaccine ( season)/04/2021, 10/12/2020Influenza Vaccine (#1)2025 05/23/2020, 03/22/2019Pneumococcal Vaccine: Pediatrics (0 to 5 Years) and At- Risk Patients (6 to 64 Years)Aged OutNo longer eligible based on patient's age to complete this topic Procedures Procedure NamePriorityDate/TimeAssociated DiagnosisCommentsSCANNED LABSRoutine 03/08/2025 3:37 PM EDTAEROBIC PNDQJEBXwokfbj77/09/2025 10:00 AM EDT ANAEROBIC KLTFRXZEsblefm95/09/2025 10:00 AM EDT XR CHEST 2V1 9:02 AM EDT CCF HGODQxfstas88/03/2025 8:35 AM EDT SRMCOH PROTHROMBIN TIME INR W/O MVWEYxxmblu45/03/2025 8:35 AM EDT ALL CBC WITH AUTO QTJHMbzteox26/03/2025 8:35 AM EDT ECG 12-LEAD03/02/2025 8:[address] SINUS WO CON02/16/2025 8:13 AM EDT from Last 3 Months Results * SCANNED LABS (03/08/2025 3:37 PM EDT) Narrative Authorizing ProviderResult TypeResult StatusHiladmitri Beltrán MDWILLIAM [facility] CHG PERFORMABLESFinal Result * ANAEROBIC CULTURE (03/08/2025 10:00 AM EDT)ComponentValueRef RangeTest Method Analysis TimePerformed AtPathologist SignatureANAEROBIC CULTURE ??Anaerobic Culture TBHANAEROBIC CULTURESpecimen has been received and testing has been initiated. TBHANAEROBIC CULTUREOrganism: Fusobacterium nucleatum :TBHANAEROBIC CULTURE *ABNORMAL*TBHANAEROBIC CULTUREScant growthTBHANAEROBIC CULTUREStudies at [facility] have confirmed theTBHANAEROBIC CULTUREobservations of others who have demonstrated thatTBHANAEROBIC CULTUREFusobacterium species are routinely susceptible toTBHANAEROBIC CULTURECefoxitin, Chloramphenicol, Clindamycin, MetronidazoleTBHANAEROBIC CULTUREand Penicillin.TBHANAEROBIC CULTURE Fusobacterium nucleatumTBHANAEROBIC CULTURE ??O:FUSNUC Isolated TBHSpecimen (Source)Anatomical Location / LateralityCollection Method / Volume Collection TimeReceived Time03/08/2025 10:00 AM EDT1 12:17 PM EDT Narrative [facility] - 03/13/2025 2:09 PM EDT RIGHT MAXILLARY SINUS (SURGICAL SPECIMEN) Authorizing ProviderResult TypeResult StatusHilaMaimonides [facility] BLOOD ORDERABLESFinal ResultPerforming OrganizationAddressCity/State/ZIP CodePhone Number [facility] * (ABNORMAL) AEROBIC CULTURE (03/08/2025 10:00 AM [...] epidermidisTBHAEROBIC CULTURE ??O:JALILI Isolated TBHAEROBIC CULTUREPerformed at: [facility] SurgeryTBARIZONA STATE HOSPITALROBIC B[address]JDH[address] [place], [place] [id number] CULTURELab Director: Collin Rodriguez PhD, Phone: [phone] CULTURE Organism: ??2.1 Antibiotic ? Interpretation ? [...] EDT Narrative 03/02/2025 9:05 AM EDT [facility] ?[address] ? [place] [address] ?XRay Report ? Signed ? Patient: KIM HILL L ?MR#: [id number] ?? : 1970 ?Acct:[id number] ?? Age/Sex: 54 / F ?ADM Date: 03/02/25 ?? Loc: PST ? Attending Dr: Renu Beltrán M.D. ? Ordering Physician: Renu Beltrán M.D. ?? Date of Service: 03/02/25 ?? Procedure(s): XR chest 2V ?? Accession Number(s): [id number] ? cc: JOSEPH MARK ; Renu Beltrán M.D. ? [facility] ? [address] ? [place] [address] ? Patient Name: ?? KIM HILL ? MRN: [facility]:[id number] ? date: 1970 ?Sex: F ?? Assigned Patient Location: PST ?? Current Patient Location: PST ?? Accession/Order Number: [id number] ?? Exam Date: 03/02/2025 ??08:50 ?Report Date: [...] Dictation Location: RADIO-PC-24 ? Electronically authenticated by: [id number] ??Y ?? Date: 03/02/2025 ??09:02 ? Dictated By: ?Tate Alva M.D. ? Signed By: ?03/02/25904 ? DD/ 0902 ? TD/TT: ? Logistics Associate: Procedure Note Radiology, Radiologist, - 03/02/2025 [place] [address] XRay Report Signed Patient: KIM HILL R#: [id number] : 1970Acct:[id number] Age/Sex: 54 / FADM Date: 03/02/25 Loc: PST Attending Dr: Renu Beltrán M.D. Ordering Physician: Renu Beltrán M.D. Date of Service: 03/02/25 Procedure(s): XR chest 2V Accession Number(s): [id number] cc: JOSEPH MARK ; Renu Beltrán M.D. The [address] [address] Patient Name: KIM HILL MRN: [facility]:[id number] date: 1970 Sex: F Assigned Patient Location: [facility] Current Patient Location: [facility] Accession/Order Number: [id number] Exam Date: 03/02/2025 08:50 Report Date: 03/02/2025 [...] Alva M.D. 03/02/2025 9:02 AM Dictation Location: [place] [address] Electronically authenticated by: [id number] Y Date: 9:02 Dictated By: Tate Alva M.D. Signed By:03/02/25904 DD/ 1 TD/TT: Logistics Associate: Authorizing ProviderResult TypeResult StatusHilary H Timmis MDCLINISYNC [...] H Timmis MDCLINISYNCFinal ResultPerforming OrganizationAddressCity/State/ZIP CodePhone Number [facility] * [facility] APTT (03/02/2025 8:35 AM EDT)ComponentValueRef RangeTest MethodAnalysis TimePerformed AtPathologist SignaturePARTIAL THROMBOPLASTIN TIME26.722.3 - 36.2 secTBHSpecimen (Source)Anatomical Location / LateralityCollection Method / VolumeCollection TimeReceived Time03/02/2025 8:35 AM EDT1 8:45 AM EDT Narrative [facility] - 03/02/2025 9:10 AM EDT Authorizing ProviderResult TypeResult StatusHilary H Timmis MDCLINISYNCFinal ResultPerforming OrganizationAddressCity/State/ZIP CodePhone Number [facility] * (ABNORMAL) ALL CBC WITH AUTO DIFF (03/02/2025 8:35 AM EDT)ComponentValueRef RangeTest MethodAnalysis TimePerformed AtPathologist SignatureTBH WBC9.14.0 - 11.0 10 3/uLTBHTBH RBC3.71(L)4.20 - 5.40 10 6/uLTBHTBH HGB12.212.0 - 16.0 g/dL TBHTBH HCT36.936.0 - 48.0 %TBHTBH MCV99.5(H)81.0 - 99.0 fLTBHTBH MCH32.926.7 - 34.0 pgTBHTBH MCHC33.129.9 - 35.2 g/dLTBHTBH RDW11.911.0 - 15.0 %TBHTBH NJA154 150 - 450 10 3/uLTBHTBH MPV9.79.5 - [...] H Timmis MDCLINISYNCFinal ResultPerforming OrganizationAddressCity/State/ZIP CodePhone Number [facility] * ECG 12-LEAD (03/02/2025 8:26 AM EDT)Anatomical RegionLateralityModalityOther Specimen (Source)Anatomical Location / LateralityCollection Method / Volume Collection TimeReceived Time03/02/2025 8:26 AM EDT Narrative 03/02/2025 6:45 PM EDT [facility] ?[address] ? [place] [address] ? Electrocardiograph Report ? Signed ? Patient: KIM HILL ?MR#: [id number] ?? : 1970 ?Acct:[id number] ?? Age/Sex: 54 / F ?ADM Date: 03/02/25 ?? Loc: PST ? Attending Dr: Renu Beltrán M.D. ? Ordering Physician: Renu Beltrán M.D. ?? Date of Service: 03/02/25 ?? Procedure(s): ECG 12 lead ?? Accession Number(s): [id number] ? cc: ?[facility] ? Test Date: ?2025-03-02 ?? Pat Name: ? KIM HILL ?Department: ? Room: ? - ?? Gender: ? Female ? [employer]cher: ? : ?1970 ? Requested By: RENU GREGORYMIS ?? Order Number: [id number] ?Reading MD: ?? RENE ??Baljinder COSTELLO ? Measurements ?? Intervals ?[place] ? Rate: ? 80 ? P: ?35 ?? SC: ? 158 ?QRS: ?11 ?? QRSD: ? [...] 1845 ? DD/ 5 ? TD/TT: ? Logistics Associate: Procedure Note Radiology, Radiologist, - 03/02/2025 [place] [address] Electrocardiograph Report Signed Patient: KIM HILL LMR#: [id number] : 1970Acct:[id number] Age/Sex: 54 / FADM Date: 03/02/25 Loc: PST Attending Dr: Renu Beltrán M.D. Ordering Physician: Renu Beltrán M.D. Date of Service: 03/02/25 Procedure(s): ECG 12 lead Accession Number(s): [id number] cc: [facility] Test Date: 2025-03-02 Pat Name: KIM HILL Department: Room: - Gender: Female Sparker [employer] Patcher: : 1970 Requested By: RENU BELTRÁN Order Number: [id number] Reading MD: RENE COSTELLO M.D. Measurements Intervals [place] Rate: 80 P: 35 SC: 158 QRS: 11 QRSD: 91 T: 42 [...] COSTELLO Signed By:03/02/25 1845 DD/ 08 TD/TT: Logistics Associate: Authorizing ProviderResult TypeResult StatusHilary Xander Beltrán MDCLINISYNC IMAGING Final Result * CT SINUS WO CON (02/16/2025 8:13 AM EDT)Anatomical RegionLateralityModality OtherSpecimen (Source)Anatomical Location / LateralityCollection Method / VolumeCollection TimeReceived Time02/16/2025 8:13 AM EDT Narrative 02/16/2025 8:16 AM EDT [facility] ?[address] ? [place] [address] ? CT Scan Report ? Signed ? Patient: NOE,KIM L ?MR#: [id number] ?? : 1970 ?Acct:[id number] ?? Age/Sex: 54 / F ?ADM Date: /18/25 ?? Loc: CT ? Attending Dr: Renu Beltrán M.D. ? Ordering Physician: Renu Beltrán M.D. ?? Date of Service: 02/15/25 ?? Procedure(s): CT sinus wo con ?? Accession Number(s): [id number] ? cc: JOSEPH MARK ? [facility] ? [address] ? [place] [address] ? Patient Name: ?? KIM Oglesby NOE ? MRN: [facility]:[id number] ? date: 1970 ?Sex: F ?? Assigned Patient Location: CT ?? Current Patient Location: ? Accession/Order Number: [id number] ?? Exam Date: 02/15/2025 ??15:20 ?Report Date: [...] Dictation Location: RADIO-PC-30 ? Electronically authenticated by: [id number] ??Y ?? Date: 02/16/2025 ??08:13 ? Dictated By: ?Shalonda Mckee M.D. ? Signed By: ?02/16/25 0816 ? DD/ 0813 ? TD/TT: ? Logistics Associate: Procedure Note Radiology, Radiologist, MD - 02/16/2025 [place] [address] CT Scan Report Signed Patient: KIM HILL LMR#: [id number] : 1970Acct:[id number] Age/Sex: 54 / FADM Date: 02/15/25 Loc: CT Attending Dr: Renu Beltrán M.D. Ordering Physician: Renu Beltrán M.D. Date of Service: 02/15/25 Procedure(s): CT sinus wo con Accession Number(s): [id number] cc: JOSEPH MARK [place] [id number] Patient Name: KIM HILL MRN: [id number]:[id number] date: 1970 Sex: F Assigned Patient Location: CT Current Patient Location: Accession/Order Number: [id number] Exam Date: 02/15/2025 15:20 Report Date: 02/16/2025 [...] Mckee M.D. 02/16/2025 8:13 AM Dictation Location: [employer] Electronically authenticated by: [id number] Y Date: 508:13 Dictated By: Shalonda Mckee M.D. Signed By:02/16/25815 DD/ 2 TD/TT: Logistics Associate: Authorizing ProviderResult TypeResult StatusHilary Xander Beltrán MDCLINISYNC IMAGING Final Result from Last 3 Months Insurance Care Teams Team MemberRelationshipSpecialtyStart [place] [address] [place] [address] PCP - GeneralCardiology12/05/24
--- OUTSIDE RECORDS SUMMARY | 2025-05-17 09:07 | XMS_ITS | Clinical Summary ---
Author Organization [facility] Address [address], [address] [place] [address] Care Team Providers Care Database Report Writer Name Role Phone Aby Yu APRN - INDUSTRIAL RELATIONS REPRESENTATIVE Primary Care Pro vider Allergies Active AllergyReactionsCriticalityNoted DateCommentsAmoxicillin-Pot Clavulanate Exhgxfpm91/19/2024lavulanic CexvXstfeqe12/17/3313UnctzhbsrbyAdtwzti44/17/2021 Medications MedicationSigDispense QuantityRefillsLast FilledStart DateEnd DateStatus pantoprazole [...] tablet Take 1 tablet by mouth every grbwchl7709/14/2023ctive TRELEGY ELLIPTA 200-62.5-25 MCG/ACT AEPB inhaler INHALE [...] InformationValueDate RecordedSex Assigned at BirthNot on fileLegal DbcEauevi93/10/2013 2:48 PM EST Gender IdentityNot on fileSexual OrientationNot on file Last Filed Vital Signs Vital SignReadingTime TakenCommentsBlood Nlcjcgyd270/8007 9:39 AM EDT Dhqfm299112/17/2023 9:39 AM EDTTemperature--Respiratory Uuxa474012/17/2023 9:39 AM EDTOxygen Saturation--Inhaled Oxygen Concentration--Vqxipn25.9 kg (218 lb) 12/17/2023 9:39 AM ZSPEdfjzs892 cm (5' 3 )12/17/2023 9:39 AM EDTBody Mass Index 38.6207 9:39 AM EDT Plan of Treatment Health MaintenanceDue DateLast DoneCommentsDepression Khynvv3810/02/1980HIV screen 10/03/1983Hepatitis C uhadtj4610/02/1986DTaP/Tdap/Td vaccine (1 - Tdap)10/03/1987 Hepatitis B vaccine (1 of 3 - 19+ 3-dose series)10/03/1987Breast cancer screen 10/02/20083660Kgnezu10/05/2692Gkvhefaevzj07/05/2014Colorectal Cancer Screen 2013FIT/FOBT: Average risk2013Fecal-DNA (Cologuard): Average risk 2013Sigmoidoscopy/CT qzjlyevtphai32/05/2014Pneumococcal 50+ years Vaccine (1 of 1 - [...] Date Aby Yu, YOVANI - [address] [place] [address] PCP - GeneralFatxly Medicine10/07/23
--- OUTSIDE RECORDS SUMMARY | 2025-05-17 09:07 | XMS_ITS | Patient Health Record ---
Author Organization [facility] Address [address] [address], [facility] [place] [address] Care Team Providers Care Tool Repairer Name Role Phone Stephen Estevez Unavailable [phone] Allergies Allergen (clinical drug ingredient) Drug/Non Drug [...] Orally Once a dayActiveTriamcinolone Acet & AnesthActiveVitamin V6Zedhsd Neurontin 600 MG Tablet1 tablet Orally Once a dayActiveCetirizine HCl 10 MG TabletTAKE 1 TABLET (10 MG) BY MOUTH DAILY NEEDED FOR ALLERGIES Oral; Duration: 90 DaysActive Social History Section Notes: Current tobacco use. Social alcohol use. Encounters Encounter Location Date Provider Diagnosis [facility], [facility] [address], [place] [address] 04/24/2025 Stephen Estevez Right foot drop M21.371 [...] Treatment Next Appt Details Provider Name:Stephen LOU iGovanny ernst, 06/14/2025 03:15:00 PM, [address], [address], [place], [address], Insurance Providers Payer Name Payer Address Payer Phone Subscriber Number Group Number Insured Name Patient Relationship to Insured Coverage Start Date Coverage End Date [facility] [address] [place] [address] [id number] [place] - patient is the insured Medical (General) History Medical History History ICD Code Arthritis AsthmaHigh Blood PressureSurgical History Surgery Date(Month/Year) L4-5 Lumbar Fusion Hysterectomy
--- OUTSIDE RECORDS SUMMARY | 2025-05-17 09:07 | XMS_ITS | Clinical Summary ---
Author Organization [facility] Address [address] [place] [address] Care Team Providers Care Grain Commodity Manager Name Role Phone Aby Yu CNP Unavailable [phone] Allergies Active AllergyReactionsCriticalityNoted DateCommentsPenicillinsRash,Diarrhea Esdnss1406/09/2024 Medications MedicationSigDispense QuantityRefillsLast FilledStart DateEnd DateStatus gabapentin [...] 10 mg by mouth daily at bedtime.Active mmrfelhnxvj-ilrpvjrxe-mpnejcoq (TRELEGY ELLIPTA) 100-62.5-25 mcg inhalation powder Inhale [...] drink = 0.6 oz pure alcohol)PHQ-2AnswerDate RecordedPHQ-2 gqqio591rea Deprivation IndexAnswerDate RecordedNational Score (1-100), lower number is lower risk61 06/09/2024State Score (1-10), lower number is lower vwet51906/09/2024Data from: https://www.neighborhoodatlas.medicine.[facility]/. Last address used for [address] [facility]06/09/2024CommentsNoSex and Gender InformationValueDate RecordedSex Assigned at BirthNot on fileLegal SexFemale 07/20/2019 1:04 PM ESTGender IdentityNot on fileSexual OrientationNot on file Last Filed Vital Signs Vital SignReadingTime TakenCommentsBlood Zvricggt983/9504 2:59 PM EDT Ebjxa9477 2:59 PM EDTTemperature--Respiratory Hdpj877109/26/2024 2:59 PM EDTOxygen Bqpsbepovl54%09/26/2024 2:59 PM EDTInhaled Oxygen Concentration-- Wrhzme54.7 kg (215 lb 4.5 oz)09/26/2024 2:59 PM OXBCaooyg323 cm (5' 3 ) 09/26/2024 2:59 PM EDTBody Mass Index38.1404 2:59 PM EDT Plan of Treatment Health MaintenanceDue DateLast DoneCommentsAnxiety Abzvelzdd83/05/1987Depression Fhynpeckt56/05/1987HIV Vrqbwcals87/05/1987Hepatitis C Etuaxttwb96/05/1987 DTaP,Tdap,Td Vaccine (1 - Tdap)10/03/1987Hepatitis B Vaccine (1 of 3 - 19+ 3- dose series)10/03/1987Pneumococcal Vaccine: 50+ (1 of 2 - PCV)10/03/1987Cervical Cancer Bcbbmpder87/05/1990Mammogram Vllkzqwiv00/05/2009CT Egzayhngyowm65/05/2014 Cologuard (FIT-DNA)10/02/20139561Sogvhvxywtg39/05/2014Colorectal Cancer Screening 2013Diabetes Fgyvfgles44/05/2014Fecal Occult Blood2013Lipid Hlceaurui10/05/7451Tvvwmvkjvzucd78/05/2014Shingrix Vaccine (1 of 2)2018 Covid-19 Vaccine (3 - season)/04/2021, 10/12/2020Influenza Vaccine (#1), 03/22/2019RSV Vaccine (1 - 1-dose 75+ series) 10/03/2043 Insurance Care Teams Team MemberRelationshipSpecialtyStart DateEnd Date Aby Yu CNP [address] [place] [address] ReferringFamily Ymluithd93/3/24
--- OUTSIDE RECORDS SUMMARY | 2025-05-17 09:07 | XMS_ITS | Clinical Summary ---
Author Organization [facility] Address [id number] [place] [address] Care Team Providers Care Players Assistant Name Role Phone Unavailable Primary Care Provider Unavailabl e Social History Tobacco UseTypesPacks/DayYears UsedDateSmoking Tobacco: Never AssessedChildcare AnswerDate MdfiaglnPzggdqmyoFvjcxbe01/12/2019EmploymentAnswerDate Recorded DqtscwjgbyXnnkdmo69/12/2019CommentsUnknownSex and Gender Information ValueDate RecordedSex Assigned at BirthNot on fileLegal LcqXltqra98/06/2015 11:23 AM EDTGender IdentityNot on fileSexual OrientationNot on file Plan of Treatment Not on file Medical Devices Not on file
[2025-05-17] MEDS: LIDOCAINE HCL 1% PF 50 MG/5 ML VIAL INJ (09:20)
[2025-05-17] MEDS: DIPHTH,PERTUSS(ACELL),TET VAC 0.5 ML SYRINGE IM (09:20)
--- NOTE | 2025-05-17 10:02 | ED.GENADUL1 ---
HPI HPI - General Adult General Chief complaint: Skin/Abscess/Foreign Body Stated complaint: upper extremity injury - [facility] Time Seen by Provider: 05/17/25 09:02 Source: patient Mode of arrival: walk-in History of Present Illness HPI narrative: The patient sustained an injury while she was at work she was cutting something while passing the white board and apparently the edge of the white board to hurt her right forearm, patient does not remember the last time she had tetanus booster Related Data Home Medications ?Medication ?Instructions ?Recorded ?Confirmed lisinopril 10 mg tablet 10 mg PO DAILY 11/12/22 05/14/25 albuterol 90 mcg-budesonide 80 2 inh inhalation BID PRN sob 04/27/24 05/14/25 mcg/actuation HFA aerosol inhaler (Airsupra) montelukast 10 mg tablet 10 mg PO DAILY 04/27/24 05/14/25 (Singulair) cetirizine 10 mg tablet 10 mg PO DAILY PRN allergy symptoms 02/28/25 05/14/25 cyanocobalamin (vitamin B-12) 500 500 mcg PO DAILY 02/28/25 05/14/25 mcg lozenges fluticasone fur. 200 mcg-umeclid 1 inh inhalation Q24H 02/28/25 05/14/25 62.5 mcg-vilant 25 mcg inhalat.powder (Trelegy Ellipta) fluticasone propionate 50 2 spray intranasal Q12H 02/28/25 05/14/25 mcg/actuation nasal spray,suspension ipratropium 0.5 mg-albuterol 3 mg 3 ml inhalation Q8H PRN shortness 02/28/25 05/14/25 (2.5 mg base)/3 mL nebulization of breath or wheezing soln pantoprazole 40 mg tablet,delayed 40 mg PO DAILY 02/28/25 05/14/25 release acetylcysteine 600 mg capsule (NAC) 600 mg PO DAILY 04/23/25 05/14/25 black seed 4.5 gram/5 mL oral oil g PO 05/14/25 tumeric QDAY 05/14/25 Previous Rx's ?Medication ?Instructions ?Recorded gabapentin 600 mg tablet 600 mg PO TID #90 tabs 07/11/24 meloxicam 15 mg tablet 15 mg PO DAILY #30 tabs 07/11/24 hydrocodone 7.5 mg-acetaminophen See Rx Instructions .Route 11/02/24 325 mg tablet .COMPLEX PRN pain #70 tabs baclofen 10 mg tablet 10 mg PO TID PRN muscle spasm #270 02/01/25 tabs hydrocodone 7.5 mg-acetaminophen See Rx Instructions .Route 04/03/25 325 mg tablet .COMPLEX PRN pain #70 tabs bacitracin 500 unit/gram topical 1 applic topical DAILY #14 grams 05/17/25 ointment Allergies Allergy/AdvReac Type Severity Reaction Status Date / Time amoxicillin (From Augmentin) Allergy Unknown Rash Verified 05/14/25 12:10 clavulanic acid (From Allergy Unknown Rash Verified 05/14/25 12:10 Augmentin) Penicillins Allergy Unknown RASH Verified 05/14/25 12:10 Opioid HPI Opioid Management Most Recent Opioid Data: Last Pain Scale 5 05/14/25, 12:05 Last Pain Assessment 05/14/25, 12:41 Last ORT Total Score 0 04/27/24, 05:38 Last ORT Risk Category Low Risk 04/27/24, 05:38 Review of Systems ROS Status of ROS 10 or more systems reviewed and unremarkable except as noted in history and below [facility] Medical History (Updated 05/17/25 @ 10:03 by Chel Kruse MD) COPD (chronic obstructive pulmonary disease) ?J44.9 - Chronic obstructive pulmonary disease, unspecified (ICD-10) Chronic fatigue ?R53.82 - Chronic fatigue, unspecified (ICD-10) Spinal stenosis ?M48.00 - Spinal stenosis, site unspecified (ICD-10) Foot drop, right ?M21.371 - Foot drop, right foot (ICD-10) Vitamin D deficiency ?E55.9 - Vitamin D deficiency, unspecified (ICD-10) Generalized anxiety disorder ?F41.1 - Generalized anxiety disorder (ICD-10) Prediabetes ?R73.03 - Prediabetes (ICD-10) Cardiomegaly ?I51.7 - Cardiomegaly (ICD-10) Hx MRSA infection ?Z86.14 - Personal history of Methicillin resistant Staphylococcus aureus infection (ICD-10) Hallux valgus (acquired), left foot ?M20.12 - Hallux valgus (acquired), left foot (ICD-10) Sinusitis ?J32.9 - Chronic sinusitis, unspecified (ICD-10) Asthma exacerbation ?J45.901 - Unspecified asthma with (acute) exacerbation (ICD-10) Influenza ?J11.1 - Influenza due to unidentified influenza virus with other respiratory manifestations (ICD-10) Obesity ?E66.9 - Obesity, unspecified (ICD-10) Osteoarthritis ?M19.90 - Unspecified osteoarthritis, unspecified site (ICD-10) Rheumatoid arthritis ?M06.9 - Rheumatoid arthritis, unspecified (ICD-10) Anxiety ?F41.9 - Anxiety disorder, unspecified (ICD-10) Acid reflux ?K21.9 - Gastro-esophageal reflux disease without esophagitis (ICD-10) Smoker ?F17.200 - Nicotine dependence, unspecified, uncomplicated (ICD-10) Asthma ?J45.909 - Unspecified asthma, uncomplicated (ICD-10) Heart murmur ?R01.1 - Cardiac murmur, unspecified (ICD-10) HTN (hypertension) ?I10 - Essential (primary) hypertension (ICD-10) Surgical History (Updated 05/08/25 @ 13:37 by Annamarie Gardner) H/O sinus surgery ?Z98.890 - Other specified postprocedural states (ICD-10) H/O radiofrequency ablation (RFA) of nerve of lumbar spine ?Z98.890 - Other specified postprocedural states (ICD-10) History of lymph node excision ?Z98.890 - Other specified postprocedural states (ICD-10) History of hysterectomy ?Z90.710 - Acquired absence of both cervix and uterus (ICD-10) History of lumbar fusion ?Z98.1 - Arthrodesis status (ICD-10) Family History Aunt Family history of cancer Mother Family history of diabetes mellitus Family history of hypertension Father Family history of diabetes mellitus Family history of hypertension Social History (Updated 03/02/25 @ 07:55 by Marissa Moran RN) Within the past year, how often did you have a drink containing alcohol: monthly or less Smoking status: Current every day smoker Non-prescribed substance use: denies use 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 Highest level of school completed/degree received: GED or equivalent Are you now , , , , never or living with a partner: In a typical week, how many times do you talk on the telephone with family, friends, or neighbors: 3 or more times per week How often do you get together with friends or relatives: 3 or more times per week Little interest or pleasure in doing things: not at all Feeling down, depressed, or hopeless: not at all Feel stressed/tense/nervous/anxious/difficulty sleeping: not at all Do you think of yourself as: straight/heterosexual Gender Identity: female Exam Narrative Exam Narrative: Nurses notes and vital signs reviewed and patient is not hypoxic. General: Well-appearing and in no apparent distress. Right forearm exam The patient laceration that is linear horizontal with the forearm almost 2.5 cm with serrated edges, there is no exposure of the underlying structure and there is no foreign body Patient have another abrasion just almost distal to that by 10 cm there is a superficial and almost 1 cm linear Neurological: A&O x4. No cranial nerve dysfunction observed. No truncal ataxia. Moves all extremities. Sensation intact. Psychiatric: Cooperative and interactive. Normal mood and affect. Constitutional Vital Signs, click to edit/add: Last Vital Signs Temp 97.8 F 05/17/25 08:48 Pulse 99 H 05/17/25 08:48 Resp 16 05/17/25 08:48 BP 130/62 05/17/25 08:48 Pulse Ox 95 05/17/25 08:48 O2 Del Method Room Air 05/17/25 08:48 Course Vital Signs Vital signs: Vital Signs Temperature 97.8 F 05/17/25 08:48 Pulse Rate 99 H 05/17/25 08:48 Respiratory Rate 16 05/17/25 08:48 Blood Pressure 130/62 05/17/25 08:48 Pulse Oximetry 95 05/17/25 08:48 Oxygen Delivery Method Room Air 05/17/25 08:48 Temperature 97.8 F 05/17/25 08:48 Pulse Rate 99 H 05/17/25 08:48 Respiratory Rate 16 05/17/25 08:48 Blood Pressure 130/62 05/17/25 08:48 Pulse Oximetry 95 05/17/25 08:48 Oxygen Delivery Method Room Air 05/17/25 08:48 Medical Decision Making MDM Narrative Medical decision making narrative: After cleaning the area thoroughly with normal saline and Betadine and infiltrating the area with 4 cc of 1% lidocaine Patient has 6 stitches of 3-0 Prolene applied Tetanus booster provided Clean dressing keeping the wound clean for the next 5 to 7 days Stitches to be removed after 7 days maximum Patient to follow-up with occupational health Discharge Plan Discharge Chief Complaint: Skin/Abscess/Foreign Body Clinical Impression: Laceration of forearm Patient Disposition: Home, Self-Care Time of Disposition Decision: 10:03 Condition: Good Mode of Transportation: Private Vehicle Prescriptions / Home Meds: New bacitracin 500 unit/gram ointment 1 applic topical DAILY Qty: 14 0RF No Action Airsupra 90-80 mcg/actuation HFA aerosol inhaler 2 inh inhalation BID PRN (Reason: sob) montelukast [Singulair] 10 mg tablet 10 mg PO DAILY hydrocodone-acetaminophen 7.5-325 mg tablet See Rx Instructions .ROUTE .COMPLEX PRN (Reason: pain) Qty: 70 0RF Rx Instructions: 1 TABLET PO BID-TID PRN #70 MUST LAST 30 DAYS baclofen 10 mg tablet 10 mg PO TID PRN (Reason: muscle spasm) Qty: 270 0RF Rx Instructions: 3 MONTH SUPPLY acetylcysteine [NAC] 600 mg capsule 600 mg PO DAILY lisinopril 10 mg tablet 10 mg PO DAILY gabapentin 600 mg tablet 600 mg PO TID Qty: 90 0RF meloxicam 15 mg tablet 15 mg PO DAILY Qty: 30 2RF hydrocodone-acetaminophen 7.5-325 mg tablet See Rx Instructions .ROUTE .COMPLEX PRN (Reason: pain) Qty: 70 0RF Rx Instructions: 1 TABLET PO BID-TID PRN #70 MUST LAST 30 DAYS cetirizine 10 mg tablet 10 mg PO DAILY PRN (Reason: allergy symptoms) Trelegy Ellipta 200-62.5-25 mcg blister with device 1 inh INHALATION Q24H fluticasone propionate 50 mcg/actuation spray,suspension 2 spray INTRANASAL Q12H ipratropium-albuterol 0.5 mg-3 mg(2.5 mg base)/3 mL solution for nebulization 3 ml INHALATION Q8H PRN (Reason: shortness of breath or wheezing) pantoprazole 40 mg tablet,delayed release (DR/EC) 40 mg PO DAILY cyanocobalamin (vitamin B-12) 500 mcg lozenge 500 mcg PO DAILY black seed 4.5 gram/5 mL oil PO tumeric QDAY Print Language: Belizean Instructions: Laceration (DC) Additional Instructions: Please keep the wound clean and dry for the next 5 to 7 days Stitches to be removed after 5 to 7 days Referrals: JOSEPH MARK [Primary Care Provider, Unknown] - 1 week Discharge Date/Time: 05/17/25 10:24
[2025-05-17] MEDS: BACITRACIN 0.9 GM PACKET 1 PACKET TOPICAL (10:11)
== END 2025-05-17 10:24 | disposition home or self-care (01) ==
PROVIDERS: Emergency Provider Emergency Medicine; PCP Nurse Practitioner Family
DX: S51.811A Laceration without foreign body of right forearm, initial encounter (principal); W26.8XXA Contact with other sharp object(s), not elsewhere classified, initial encounter; Z23 Encounter for immunization
CPT/HCPCS: 12001; 90471; 90715; 99283